=== PATIENT | female | born 1950 | race Caucasian/White ===

== ENCOUNTER 2020-09-21 11:03 | Outpatient (CLI) | payer MEDICAID, SELFPAY ==
--- NOTE | 2020-09-21 11:26 | XRR_ITS ---
PROCEDURE INFORMATION: Exam: XR Right Knee Exam date and time: 09/21/2020 11:26 AM Age: 70 years old Clinical indication: Pain; Knee; Bilateral; Additional info: Bilateral knee pain, standing views TECHNIQUE: Imaging protocol: XR Right knee. Views: 3 views. COMPARISON: No relevant prior studies available. FINDINGS: Bones/joints: No fracture or dislocation. There is mild tricompartmental degenerative changes of the right knee, involving mainly the medial compartment, manifested by joint space narrowing and periarticular osteophytes. Soft tissues: Normal. XR/XR knee RT 3V* [id number] IMPRESSION: Mild tricompartmental osteoarthrosis, involving mainly the medial compartment.
--- NOTE | 2020-09-21 11:26 | XRR_ITS ---
PROCEDURE INFORMATION: Exam: XR Left Knee Exam date and time: 09/21/2020 11:26 AM Age: 70 years old Clinical indication: Pain; Knee; Bilateral; Additional info: Bilateral knee pain, standing views TECHNIQUE: Imaging protocol: XR Left knee. Views: 3 views. COMPARISON: No relevant prior studies available. FINDINGS: Bones/joints: No fracture or dislocation. There is [id number] tricompartmental osteoarthrosis, manifested by joint space narrowing and periarticular osteophytes, involving mainly the patellofemoral compartment. Soft tissues: Normal. XR/XR knee LT 3V* [id number] IMPRESSION: [id number] tricompartmental osteoarthrosis, involving mainly the patellofemoral compartment.
== END 2020-09-21 11:04 | disposition home or self-care (01) ==
LOC: RAD 11:10
PROVIDERS: PCP Family Medicine; Visit Provider Family Medicine
DX: M25.561 Pain in right knee (principal); M25.562 Pain in left knee; M19.90 Unspecified osteoarthritis, unspecified site
CPT/HCPCS: 73562

== ENCOUNTER 2021-02-22 09:45 | Emergency (ER) | payer MEDICAID, SELFPAY ==
--- NOTE | 2021-02-22 10:07 | CT_ITS ---
WS: [id number] CT ABDOMEN AND PELVIS WITH CONTRAST HISTORY: Abdominal pain for one week. TECHNIQUE: Imaging performed of the abdomen and pelvis with IV contrast. Single phase imaging of the abdomen. Coronal and sagittal reformats are submitted. All CT scans at [facility] use at [address] one of these dose optimization techniques: automated exposure control; mA and/or kV adjustment per patient size (includes targeted exams where dose is matched to clinical indication); or iterative re construction. IV CONTRAST: Omnipaque 300; 95 mL IV. Oral contrast: No DLP: 1928.3 mGy.cm COMPARISON: 12/10/2016 Lower thorax: Lung bases are clear. Moderate enlargement the heart. Small hiatal hernia. Liver/biliary system: Mild enlargement of the liver. No mass or bile duct dilatation. Normal portal v ein. Mild physiologic dilatation of the common bile duct. Gallbladder: Status post cholecystectomy. Pancreas: Normal size pancreas and pancreatic duct. No adjacent inflammation. Spleen: Normal spleen with granulomata. Adrenal glands: Normal. Right kidney: Normal size kidney. Cortical hypodensity measures 7 mm in the mid kidney. 2 small to ch aracterize. Vascular calcifications centrally. Left kidney: Focal mild cortical thinning in the mid to lower kidney. Cortical hypodensity in the low er pole. No solid mass or obstruction. Aorta: Mild atherosclerosis with no aneurysm. Lymphadenopathy: None. Free fluid: None. GI tract: Low-attenuation irregular shaped nodule in the lumen of the proximal jejunum. This area of decreased attenuation in the lumen measures 18 x 18 mm and is irregular shape. There is very minimal proximal obstruction with adjacent wall thickening. This is not a hypervascular lesion. No adjacent a denopathy or free air. The appendix contains calcification. No GI tract obstruction or significant di verticular disease. Abdominal wall: Unremarkable abdominal wall. No hernia. Pelvis: Lobulated mass with calcification from the fundus and RIGHT lateral uterus consistent with a fibroid. Urinary bladder is only partially distended. No free fluid or adenopathy. Bones: Osteopenia. CT/CT abdomen pelvis w con* [id number] IMPRESSION: 1. Low-attenuation mass of uncertain etiology centered within the lumen of the proximal jejunum. This nonenhancing mass measures 16 x 16 mm. Differential inc ludes benign and malignant etiologies. Small bowel adenoma, GIST tumor, hematom a or adenocarcinoma should be considered. There is very mild adjacent wall thic kening at this site with no high-grade obstruction. 2. Prior cholecystectomy. 3. Fibroid uterus.
--- NOTE | 2021-02-22 10:10 | W.ED.ABDPA2 ---
HPI - Abdominal Pain General: Chief Complaint: Abdominal Pain Stated Complaint: ABDOMINAL PAIN Time Seen by Provider: 02/22/21 09:53 Source: patient and EMS Mode of arrival: EMS Limitations: no limitations History of Present Illness: HPI narrative: Patient is a 70-year-old female presents to ED today via EMS with a complaint of abdominal pain intermittently over the past week. Patient states she cannot identify any worsening or alleviating factors to her discomfort. States pain will come on and last approximately 20-30 mins and then subside on its own. She does states she has not had much of an appetite. According to EMS, patient is a diabetic and takes 40 units of insulin nightly. She admittedly has not checked her blood sugars in over a year. Blood sugar according to EMS upon arrival was in the 240s. Patient is not having any vomiting. She has chronic diarrhea and this has not changed in frequency or consistency. No fevers. EMS states upon arrival patient was complaining of bilateral ear pain. EMS noted a small amount of blood coming from her ear canal. Patient states she does clean her ears every night with Q-tips. She reports no other injury or trauma. No head trauma/no falls. States ears have bothered her for a few days. Also noticed some matting/discharge from [facility] eye. MD elicited complaint: abdominal pain Onset (ago): day(s) Pain Consistency: intermittent Location: Diffuse Severity: moderate Exacerbating factors: nothing Relieving factors: nothing Associated Symptoms: Reports diarrhea (chronic); Denies change in bowel habits, change in stool character, chills, dysuria, fever(s), hematochezia, hematuria, melena, nausea, syncope and vomiting Related Data: Patient : No Review of Systems Const: Denies: fever(s), chills, body aches, fatigue or malaise ENMT: Reports: ear or mastoid pain (bilateral) and ear discharge (left); Denies: throat pain, odynophagia, disequilibrium, nasal discharge or nasal congestion Card: Denies: chest pain, palpitations, irregular heart rhythm, edema, lightheadedness, syncope or pre-syncope Resp: Denies: dyspnea, productive cough or non-productive cough GI: Reports: abdominal pain and diarrhea (chronic); Denies: nausea, vomiting, change in bowel habits, change in stool character, hematochezia or melena : Denies: flank pain, dysuria or hematuria Musc: Denies: neck pain, back pain, extremity pain or joint pain Skin/Breast: Denies: rash Neuro: Denies: headache(s), numbness in extremities, weakness in extremities, sensory changes, dizziness or confusion Physical Exam Const: COMMON NORMALS: patient oriented x3, no limitations and alert GENERAL APPEARANCE: cooperative and in distress (appears slightly uncomfortable secondary to pain) NUTRITIONAL APPEARANCE: obese ORIENTATION/CONSCIOUSNESS: Yes awake, Yes oriented to person, Yes oriented to place and Yes oriented to time HENMT: COMMON NORMALS: normocephalic, atraumatic and Normal external nose present HEAD & SCALP: normal to inspection, normocephalic and atraumatic FACE & SINUS: normal facial exam NOSE: Normal external nose present EXTERNAL AUDITORY CANAL: Abnormal EAC present EAC laterality: left (blood in EAC) TYMPANIC MEMBRANE: TM abnormal TM laterality: right (erythema/dullness ) and left (TM rupture with blood noted in EAC) THROAT: posterior oropharynx normal Eye: COMMON NORMALS: Equal, round and reactive pupils present and EOMs intact bilaterally CONJUNCTIVA: Yes conjunctival abnormal positive left conjunctival injection (mild) PUPIL: Yes Equal, round and reactive pupils present OTHER: mild yellow purulent drainage from L eye Neck/C-Spine: COMMON NORMALS: no lymphadenopathy Resp: COMMON NORMALS: normal respiratory effort and clear to auscultation bilaterally AUSCULTATION: clear to auscultation bilaterally Cardio: COMMON NORMALS: regular rate and regular rhythm RATE: regular rate RHYTHM: regular rhythm GI: COMMON NORMALS: Normal to inspection, nondistended, normoactive bowel sounds present, Soft to palpation, No hepatosplenomegaly present and no masses INSPECTION: Yes normal to inspection AUSCULTATION: Yes normoactive bowel sounds PALPATION: Yes Soft to palpation, Yes Tenderness to palpation present (GI) (throughout upper/mid abdomen ) and Yes No hepatosplenomegaly present : COMMON NORMALS: Yes no CVA tenderness BLADDER/KIDNEY EXAM: Yes no CVA tenderness Back/Pelvis: COMMON NORMALS: no CVA tenderness Extremity: COMMON NORMALS: normal to inspection GENERAL: Yes normal exam except as noted Neuro: CHARLES COMA SCALE: document GCS findings Charles coma scale eye opening: Spontaneous Charles coma scale verbal response: Orientated Charles coma scale motor response: Obey commands Charles coma scale total score: 15 COMMON NORMALS: patient oriented x3, CN's II-XII intact bilaterally, moves all extremities, no focal motor deficits and no sensory deficits noted SENSORIUM/ORIENTATION: Yes alert, Yes oriented to person, Yes oriented to place and Yes oriented to time Skin: COMMON NORMALS: no rashes or lesions noted GENERAL SKIN EXAM: no rashes or lesions noted Course Consultations: Consultation #1: Dr. Perez-recommends either small bowel follow through or repeat CT scan with oral contrast to assess for obstruction Vital Signs: Vital signs: Vital Signs Temperature 98.3 F 02/22/21 10:32 Pulse Rate 104 H 02/22/21 17:18 Respiratory Rate 18 02/22/21 17:18 Blood Pressure 121/77 02/22/21 17:18 Pulse Oximetry 96 02/22/21 17:18 MDM - Abdominal Pain MDM Narrative: Medical decision making narrative: Patient here with bilateral otitis media with a spontaneous rupture to her left TM. She has not had any head injury or trauma but does reportedly clean her ears with Q-tips every day. Patient here with intermittent abdominal pains over the past week. She had not had any episodes of vomiting however he did have one episode of vomiting following oral contrast for her small bowel follow-through and now reporting nausea. Bowel movements have been normal. No fevers. CT scan showed an intraluminal mass to her proximal jejunum. Spoke to Dr. Perez who recommended a small bowel follow-through for further assessment. Patient was not able to fully complete this exam however enough was completed to where radiologist could comment that there was no sign of bowel loop dilatation or herniation/no sign of acute small bowel obstruction. Dr. Perez said he will follow up with her in office for the jejunal lesion. Patient will be placed on antibiotics for her ears and referred to ENT for the TM rupture. We also spoke about the importance of PCP follow up and testing for her diabetes. She verbalized understanding. She knows how to check and has supplies-states she doesn't really have a reason for why she hasn't been doing this. On general assessment of patient she appear weak and generally unwell. Unknown what her baseline is. Vitals are still stable. She states she does live alone. I recommended patient come into the hospital as I question whether she would be able to take care of herself at home but patient adamantly wants to go home. States she has a cat she lives with and needs to care for. She states she has a neighbor that can come check on her. Patient's blood work is unremarkable. UA without infection. We will go ahead and add a PCR COVID prior to discharge. Strict return to ED precautions given. Lab Data: Labs: Lab Results 02/22/21 02/22/21 02/22/21 10:45 10:45 12:25 WBC 12.7 10^3/uL H 10 ^3/uL (4.0-10.0) RBC 4.77 10^6/uL 10^6 /uL (4.1-5.3) Hgb 14.3 g/dL g/dL (11.5-15.3) Hct 39.8 % % (37.0-47.0) MCV 83.4 fl fl (81-99) MCH 30.0 pg pg (28.0-34.0) MCHC 35.9 g/dL g/dL (30.0-36.0) RDW 12.5 % % (12.1-15.1) Plt Count 303 10^3/cmm 10^3 /cmm (130-400) MPV 9.9 fL fL (7.4-10.4) Neut % (Auto) 85.5 % % Lymph % (Auto) 7.5 % % Beauregard % (Auto) 5.3 % % Eos % (Auto) 0.6 % % Baso % (Auto) 0.5 % % Neut # (Auto) 10.85 10^3/uL H 1 0^3/uL (1.8-7.7) Lymph # (Auto) 1.0 10^3/uL 10^3/ uL (0.8-4.8) Beauregard # (Auto) 0.7 10^3/uL 10^3/ uL (0.2-0.9) Eos # (Auto) 0.1 10^3/uL 10^3/ uL (0.0-0.8) Baso # (Auto) 0.1 10^3/uL 10^3/ uL (0.0-0.1) Nucleated RBC % (a uto) 0 % % Nucleated RBCs # 0.0 /100WBC /100W BC Sodium 132 mmol/L L mmol /L (136-145) Potassium 3.8 mmol/L mmol/L (3.5-5.1) Chloride 95 mmol/L L mmol/ L (98-107) Carbon Dioxide 21 mmol/L L mmol/ L (22-29) Anion Gap 19.8 H (5-19) BUN 14 mg/dL mg/dL (8-23) Creatinine 0.6 mg/dL mg/dL (0.5-0.9) GFR Calculation 99.1 mL/min mL/mi n (90-130) Glucose 209 mg/dL H mg/dL (65-115) Calculated Osmolal ity 281 mOsm/kg L mOs m/kg (285-295) Calcium 8.9 mg/dL mg/dL (8.5-10.5) Total Bilirubin 0.3 mg/dL mg/dL (0.15-1.2) AST 10 U/L U/L (0-32) ALT < 5 U/L U/L (0-33) Alkaline Phosphata se 61 IU/L IU/L (35-105) Total Protein 7.1 g/dL g/dL (6.6-8.7) Albumin 3.9 g/dL g/dL (3.5-5.2) Globulin 3.2 g/dL g/dL (1.3-4.6) Lipase 20 U/L U/L (13-60) Urine Color Yellow (Yellow) Urine Appearance Clear (CLEAR) Urine pH 5 (5-7) Ur Specific Gravit y 1.005 (1.005-1.030) Urine Protein 3+ H (Negative) Urine Glucose (UA) Trace H (Normal) Urine Ketones Negative (Negative) Urine Blood 2+ H (Negative) Urine Nitrate Negative (Negative) Urine Bilirubin Neg (Negative) Urine Urobilinogen Norm mg/dL mg/dL (Negative) Ur Leukocyte Caridad ase Negative (Negative) Urine RBC 5-10 /hpf H /hpf (0-2) Urine WBC 0-4 /hpf H /hpf (0-5) Ur Squamous Epith Cells 0-4 /hpf H /hpf (0-5) Ur Transition Epit h Cell 0-4 /hpf /hpf Amorphous Sediment Not Reportable Urine Bacteria Trace /hpf /hpf (NONE) Imaging Data ^: CT Abd/Pel: Radiologist's impression: CURRENT[address] [address] [address] Scan Report Signed Patient: Lady López Unit #: [id number] : [id number] Age/Sex: 70 / F ADM Date: 02/22/21 Loc: ER Room/Bed: Attending Dr: Ordering Provider/Ordering MD: Pamela Calvo Date of Service: 02/22/21 Procedure(s): CT abdomen pelvis w con* [id number] Accession Number(s): [id number] Report Number: [id number] WS: [id number] CT ABDOMEN AND PELVIS WITH CONTRAST HISTORY: Abdominal pain for one week. TECHNIQUE: Imaging performed of the abdomen and pelvis with IV contrast. Single phase imaging of the abdomen. Coronal and sagittal reformats are submitted. All CT scans at [facility] use at least one of these dose optimization techniques: automated exposure control; mA and/or kV adjustment per patient size (includes targeted exams where dose is matched to clinical indication); or iterative reconstruction. IV CONTRAST: Omnipaque 300; 95 mL IV. Oral contrast: No DLP: 1928.3 mGy.cm COMPARISON: 12/10/2016 Lower thorax: Lung bases are clear. Moderate enlargement the heart. Small hiatal hernia. Liver/biliary system: Mild enlargement of the liver. No mass or bile duct dilatation. Normal portal vein. Mild physiologic dilatation of the common bile duct. Gallbladder: Status post cholecystectomy. Pancreas: Normal size pancreas and pancreatic duct. No adjacent inflammation. Spleen: Normal spleen with granulomata. Adrenal glands: Normal. Right kidney: Normal size kidney. Cortical hypodensity measures 7 mm in the mid kidney. 2 small to characterize. Vascular calcifications centrally. Left kidney: Focal mild cortical thinning in the mid to lower kidney. Cortical hypodensity in the lower pole. No solid mass or obstruction. Aorta: Mild atherosclerosis with no aneurysm. Lymphadenopathy: None. Free fluid: None. GI tract: Low-attenuation irregular shaped nodule in the lumen of the proximal jejunum. This area of decreased attenuation in the lumen measures 18 x 18 mm and is irregular shape. There is very minimal proximal obstruction with adjacent wall thickening. This is not a hypervascular lesion. No adjacent adenopathy or free air. The appendix contains calcification. No GI tract obstruction or significant diverticular disease. Abdominal wall: Unremarkable abdominal wall. No hernia. Pelvis: Lobulated mass with calcification from the fundus and RIGHT lateral uterus consistent with a fibroid. Urinary bladder is only partially distended. No free fluid or adenopathy. Bones: Osteopenia. CT/CT abdomen pelvis w con* [id number] IMPRESSION: 1. Low-attenuation mass of uncertain etiology centered within the lumen of the proximal jejunum. This nonenhancing mass measures 16 x 16 mm. Differential includes benign and malignant etiologies. Small bowel adenoma, GIST tumor, hematoma or adenocarcinoma should be considered. There is very mild adjacent wall thickening at this site with no high-grade obstruction. 2. Prior cholecystectomy. 3. Fibroid uterus. Dictated By: Pat Zafar DO Signed By: Pat Zafar DO Signed Date/Time: 02/22/21 1154 DD/ 1142 XR small bowel follow through: Radiologist's impression: [address] [place], [place] [address]Cqqnmgyorum ReportSigned Patient: Lady López RUnchepe #: [id number]: [id number]#:[id number]/Sex: 70 / FADM Date: 02/22/21Loc: ERRoom/Bed:Attending Dr: Ordering Provider/Ordering MD: Pamela Calvo Date of Service: 02/22/21 Procedure(s): FL small bowel FT gastro [id number] Accession Number(s): [id number] Report Number: [id number] WS: [id number] Exam: FL small bowel FT gastro [id number] Date/Time of Exam: 02/22/2021 12:16 PM Reason For Exam: proximal jejunum mass; r/o obstruction Fluoroscopy time: 0.5 minutes Small bowel follow-through was performed with water-soluble contrast. There is slow progression of contrast through the duodenum, jejunum and ileum. At approximately 3 hours postcontrast ingestion there is likely contrast in the region of the cecum. The patient refused any additional images at about 3 hours due to her inability to continue. There was no sign of bowel loop dilatation or herniation. No sign of acute small bowel obstruction. Residual radiographic contrast is noted in the urinary bladder. There is still some contrast in the stomach at 3 hours. Mucosal thickening of proximal jejunal loops. FL/[place] gastro [id number] IMPRESSION: 1. Incomplete small bowel follow-through with their water-soluble contrast however there is probably some contrast in the cecum at about 3 hours postcontrast ingestion. There were no signs of acute small bowel obstruction. 2. Mucosal thickening of the proximal jejunal loops noted. Mild prominence of the duodenal mucosa. Jejunal loops are unremarkable as visualized. These findings were discussed by phone with ALONZO Hess the attending emergency room caregiver at 4:30 PM 02/22/2021. Dictated By:Denisigned By:Lacie Evans Date/Time:02/22/215DD/ 10 Discharge Plan Discharge Patient Disposition: Home Clinical Impression: Left otitis media with spontaneous rupture of eardrum, Acute right otitis media, Small bowel mass Condition: Stable Prescriptions: New Zofran 4 mg tablet 4 mg PO Q6H PRN (Reason: nausea and vomiting) Qty: 14 RF: 0 Augmentin 875-125 mg tablet 1 tab PO Q12H 7 Days Qty: 14 RF: 0 No Action Lantus U-100 Insulin 100 unit/mL solution 40 unit SUBCUT BEDTIME RF: 0 clopidogrel 75 mg tablet 75 mg PO QAM RF: 0 Aspir-81 81 mg Tablet,Delayed Release (Dr/Ec) 81 mg PO QAM RF: 0 amlodipine 10 mg tablet 10 mg PO QAM RF: 0 metformin 1,000 mg tablet 1,000 mg PO BID RF: 0 metoprolol tartrate 50 mg tablet 50 mg PO BID RF: 0 losartan 100 mg tablet 100 mg PO QAM RF: 0 fenofibrate nanocrystallized 145 mg tablet 145 mg PO BEDTIME RF: 0 Jardiance 10 mg tablet 10 mg PO QAM RF: 0 Discharge Orders: Discharge ED (Routine); Ordered 02/22/21 Ordered By: Pamela Calvo Referrals: Matthew Geller, DO [Primary Care Provider] - Activity Restrictions/Additional Instructions: As we have discussed I recommended you come into the hospital but you would like to go home at this time. I will give you follow-up with Dr. Perez the general surgeon for the abnormal lesion that was found in your small bowel. As we discussed please do a bland soft/liquid diet until instructed otherwise by Dr. Perez. We will get you follow-up with Dr. Ocampo the ENT specialist for your ruptured eardrum. We have sent a COVID test-you should hear back with these results in the next 24 to 48 hours. You need to return to the emergency department for worsening or uncontrollable abdominal pain, repetitive episodes of vomiting, worsening diarrhea, severe constipation, fevers greater than 100.4, generalized weakness, inability to care for yourself at home, or any other concerns you may have. Coding Level of Care Code ED Virologist for Chg Fwd Exam Comprehensive
[2021-02-22 10:24] VITALS: BP 186/74; PULSE 92; RESP 20; TEMP 36.8; O2SAT 96; BMI 39.9
[2021-02-22 10:32] VITALS: BP 186/74; PULSE 92; RESP 18; TEMP 36.8; O2SAT 96
[2021-02-22 10:54] LABS: Basophils # 0.1 10^3/uL (0.0-0.1); Basophils % 0.5 %; Eosinophils # 0.1 10^3/uL (0.0-0.8); Eosinophils % 0.6 %; Hematocrit 39.8 % (37.0-47.0); Hemoglobin 14.3 g/dL (11.5-15.3); Lymphocytes % 7.5 %; Mean Corpuscular HGB Conc 35.9 g/dL (30.0-36.0); Mean Corpuscular Volume 83.4 fl (81-99); Mean Platelet Volume 9.9 fL (7.4-10.4); Monocytes # 0.7 10^3/uL (0.2-0.9); Monocytes % 5.3 %; Neutrophils # 10.85 10^3/uL (1.8-7.7); Neutrophils % 85.5 %; Nucleated Red Blood Cells % 0 %; Platelet Count 303 10^3/cmm (130-400); Red Blood Count 4.77 10^6/uL (4.1-5.3); Red Cell Distribution Width 12.5 % (12.1-15.1); White Blood Count 12.7 10^3/uL (4.0-10.0)
[2021-02-22 11:17] LABS: Alanine Aminotransferase < 5 U/L (0-33); Albumin Level 3.9 g/dL (3.5-5.2); Alkaline Phosphatase 61 IU/L (35-105); Blood Urea Nitrogen 14 mg/dL (8-23); Calcium 8.9 mg/dL (8.5-10.5); Carbon Dioxide 21 mmol/L (22-29); Chloride 95 mmol/L (98-107); Globulin 3.2 g/dL (1.3-4.6); Glomerular Filtration Rate 99.1 mL/min (90-130); Glucose 209 mg/dL (65-115); Lipase 20 U/L (13-60); Osmolality Calculated 281 mOsm/kg (285-295); Sodium 132 mmol/L (136-145); Total Bilirubin 0.3 mg/dL (0.15-1.2); Total Protein 7.1 g/dL (6.6-8.7)
--- NOTE | 2021-02-22 11:32 | PC.PHAR ---
pt states she has a nurse from [facility] waiting for med list to be faxed-medications entered are meds that ext med history shows has been filled recently and what the pt states she takes-
[2021-02-22 11:35] LABS: Anion Gap 19.8 (5-19); Aspartate Amino Transferase 10 U/L (0-32); Potassium 3.8 mmol/L (3.5-5.1)
[2021-02-22 11:49] VITALS: BP 171/68; PULSE 92; RESP 18; O2SAT 94
--- NOTE | 2021-02-22 12:16 | FL_ITS ---
WS: [id number] Exam: FL small bowel FT gastro [id number] Date/Time of Exam: 02/22/2021 12:16 PM Reason For Exam: proximal jejunum mass; r/o obstruction Fluoroscopy time: 0.5 minutes Small bowel follow-through was performed with water-soluble contrast. There is slow progression of contrast through the duodenum, jejunum and ileum. At approximately 3 juana rs postcontrast ingestion there is likely contrast in the region of the cecum. The patient refused an y additional images at about 3 hours due to her inability to continue. There was no sign of bowel loo p dilatation or herniation. No sign of acute small bowel obstruction. Residual radiographic contrast is noted in the urinary bladder. There is still some contrast in the stomach at 3 hours. Mucosal thic kening of proximal jejunal loops. FL/FL small bowel FT gastro [id number] IMPRESSION: 1. Incomplete small bowel follow-through with their water-soluble contrast mcconnell fay there is probably some contrast in the cecum at about 3 hours postcontrast ingestion. There were no signs of acute small bowel obstruction. 2. Mucosal thickening of the proximal jejunal loops noted. Mild prominence of t he duodenal mucosa. Jejunal loops are unremarkable as visualized. These findings were discussed by phone with ALONZO Hess the attending [facility] room caregiver at 4:30 PM 02/22/2021.
[2021-02-22 12:30] VITALS: BP 121/77; PULSE 88; RESP 16; O2SAT 94
[2021-02-22 12:41] LABS: Protein Urine 3+ (Negative); Specific Gravity, Urine 1.005 (1.005-1.030); Urine Appearance Clear (CLEAR); Urine Color Yellow (Yellow); pH Urine 5 (5-7)
[2021-02-22 12:42] LABS: Add Urine Culture? No; Add Urine Microscopic? YES; Bacteria Urine TRACE /hpf; Bilirubin Urine Neg (Negative); Blood Urine 2+ (Negative); Glucose Urine UA Trace (Normal); Ketones Urine Negative (Negative); Leukocyte Esterase Urine Negative (Negative); Nitrate Urine Negative (Negative); Squamous Epithelial Cell Urine 0-4 /hpf (0-5); Transitional Epi Cells Urine 0-4 /hpf; Urobilinogen Urine Norm (Negative); WBC Urine 0-4 /hpf (0-5)
[2021-02-22] MEDS: diatrizoate meglumine 120 mL Sol PO (16:11)
[2021-02-22 17:18] VITALS: BP 121/77; PULSE 104; RESP 18; O2SAT 96
--- NOTE | 2021-02-24 12:20 | DCPLANNER ---
Addendum entered by Gabi Moncada 02/28/21 05:27: late entry - case work aide also had message to schedule a follow up appointment for patient with Dr. Perez. embedded software manager was unable to reach anyone in the office of Dr. Perez, when case work aide called the office to inquire to see if Dr. Perez accepted patients insurance. Original Note: embedded software manager had message to schedule a follow up appointment for patient with ENT. embedded software manager emailed patients information to both Monica and Natividad at [facility] General Surgery / ENT clinic. Patients information will be printed and reviewed, clinic will call patient with appointment information.
--- NOTE | 2021-02-28 14:45 | DCPLANNER ---
Addendum entered by Gabi Moncada 03/15/21 14:18: Patient had a follow up appointment scheduled for 03.15.21 - patient did attend appointment. Original Note: commercial real estate manager had message to schedule a follow up appointment with Dr. Perez. commercial real estate manager faxed patients information to the office of Dr. Perez for review. Clinic will call patient with appointment information.
--- NOTE | 2021-03-04 07:37 | DCPLANNER ---
senior accounting manager contacted the ENT clinic to confirm a follow up appointment had been scheduled for patient. senior accounting manager was told by [facility] that clinic called patient on 02.28.21 and 03.03.21 to schedule a follow up appointment. Clinic was unable to reach patient due to no answer and no voicemail set up.
== END 2021-02-22 17:20 | disposition home or self-care (01) ==
PROVIDERS: Emergency Provider Physician Assistant; PCP Family Medicine
DX: H66.93 Otitis media, unspecified, bilateral (principal); H72.92 Unspecified perforation of tympanic membrane, left ear; K63.9 Disease of intestine, unspecified; Z79.84 Long term (current) use of oral hypoglycemic drugs; Z79.02 Long term (current) use of antithrombotics/antiplatelets; Z79.82 Long term (current) use of aspirin; Z79.4 Long term (current) use of insulin
CPT/HCPCS: 74177; 74250; 80053; 81001; 83690; 85025; 99283; Q9963

== ENCOUNTER 2021-02-24 14:50 | Inpatient (IN) | payer MEDICAID, SELFPAY ==
[2021-02-24] VITALS (9 sets, daily range): BP systolic 146–200; BP diastolic 75–88; PULSE 94–103; RESP 18–34; TEMP 37.2; O2SAT 92–97; BMI 36.1
--- NOTE | 2021-02-24 15:05 | W.ED.WEAKNES ---
HPI - Weakness General: Chief complaint: ER Hold Stated complaint: GENERALIZED WEAKNESS Time Seen by Provider: 02/24/21 15:04 History of Present Illness: HPI Narrative: Ms. López is a 70-year-old lady with somewhat unclear past medical history presents to the emergency department due to generalized malaise and chest pain. She endorses 8-day history of cough, shortness of breath, and other progressive symptoms. She has generalized abdominal chest pain which is moderate intensity. It is unclear whether there are any specific exacerbating or alleviating factors that the patient identifies. 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 History is otherwise limited by patient's overall ill status and possible mental status changes. Review of Systems General: Reports: 10 or more systems reviewed and unremarkable except in HPI and below PFSH ED PFSH: Medical History (Updated 03/02/21 @ 00:00 by ) Arthritis Asthma DKA (diabetic ketoacidosis) DM type 2 (diabetes mellitus, type 2) HTN (hypertension) Hypertensive urgency Left otitis media with spontaneous rupture of eardrum Otitis externa Small bowel mass Surgical History (Updated 02/24/21 @ 19:37 by Zach Webb MD) Hx of cholecystectomy Family History Other Cancer Stroke Social History (Updated 02/24/21 @ 19:38 by Zach Webb MD) Smoking and tobacco status: never smoked Alcohol intake: never Substance/Drug Use: never Lives independently: Yes Household members: none Marital status: / Physical Exam Narrative: EXAM NARRATIVE: GENERAL/CONSTITUTIONAL -ill-appearing. Eyes - PERRL, bilateral conjunctival injection and fraire drainage with crusting. ENMT - Atraumatic external nose and ears. Drainage from bilateral ears worse on the left with mucoid discharge. Dry mucous membranes NECK - supple. trachea midline CARDIOVASCULAR -tachycardic rate and regular rhythm. No significant peripheral edema. RESPIRATORY -coarse productive cough, increased respiratory effort, diminished and wheezing. ABDOMEN/GI -mild generalized tenderness to palpation. No evidence of peritonitis. MSK - Extremities without obvious deformity or tenderness to palpation SKIN - Warm, Dry NEURO - alert and appropriately oriented. Moves all extremities equally. Course ED course: - Patient was seen and evaluated by me at bedside - Patient placed on cardiac monitors, IV access obtained - Initial evaluation notable for ill appearance as noted above, altered mental status -Treatment ordered. Antibiotics and fluids ordered. - Labs notable for leukocytosis. Metabolic panel with likely dehydration. Glucose is elevated with elevated anion gap, felt to be likely related to sepsis. Negative delta troponin. Urinalysis pending at time of admission - Imaging notable for left upper lobe pneumonia - Upon serial reexamination after treatment the patient was mildly improved - Based on patient history, evaluation, labs, and imaging as interpreted the most likely cause of the patient's condition is pneumonia, sepsis, altered mental status - The results of ED evaluation were discussed with the patient including plan for admission due to requirement for level of care not available if discharged to prevent significant worsening/deterioration. -Hospitalist service contacted and agreed admit the patient - Patient was admitted without further deterioration or significant events. Vital Signs: Vital signs: Vital Signs Temperature 98.4 F 03/02/21 20:00 Pulse Rate 66 03/02/21 20:30 Respiratory Rate 16 03/02/21 20:30 Blood Pressure 123/63 03/02/21 20:00 Pulse Oximetry 94 03/02/21 20:30 MDM - Weakness Medical Records: Attestation: I reviewed the patient's medical records. Lab Data: Attestation: I reviewed the patient's lab results. Labs: Lab Results 02/24/21 02/24/21 02/24/21 15:21 15:21 15:21 WBC 16.8 10^3/uL H 10 ^3/uL (4.0-10.0) RBC 4.89 10^6/uL 10^6 /uL (4.1-5.3) Hgb 14.1 g/dL g/dL (11.5-15.3) Hct 43.0 % % (37.0-47.0) MCV 87.9 fl fl (81-99) MCH 28.8 pg pg (28.0-34.0) MCHC 32.8 g/dL g/dL (30.0-36.0) RDW 12.9 % % (12.1-15.1) Plt Count 341 10^3/cmm 10^3 /cmm (130-400) MPV 10.4 fL fL (7.4-10.4) Neut % (Auto) 87.7 % % Lymph % (Auto) 4.1 % % [place] % (Auto) 6.5 % % Eos % (Auto) 0.1 % % Baso % (Auto) 0.4 % % Neut # (Auto) 14.75 10^3/uL H 1 0^3/uL (1.8-7.7) Lymph # (Auto) 0.7 10^3/uL L 10^ 3/uL (0.8-4.8) [place] # (Auto) 1.1 10^3/uL H 10^ 3/uL (0.2-0.9) Eos # (Auto) 0.0 10^3/uL 10^3/ uL (0.0-0.8) Baso # (Auto) 0.1 10^3/uL 10^3/ uL (0.0-0.1) Nucleated RBC % (a uto) 0 % % Nucleated RBCs # 0.0 /100WBC /100W BC Specimen Type Sample Site ABG pH ABG pCO2 ABG pO2 ABG HCO3 ABG Base Excess Stephen Test Hematocrit O2 Delivery Device FiO2 Grease Machine Worker ID Sodium 129 mmol/L L mmol /L (136-145) Potassium 4.5 mmol/L mmol/L (3.5-5.1) Chloride 88 mmol/L L mmol/ L (98-107) Carbon Dioxide 13 mmol/L L mmol/ L (22-29) Anion Gap 32.5 H (5-19) BUN 15 mg/dL mg/dL (8-23) Creatinine 0.9 mg/dL mg/dL (0.5-0.9) GFR Calculation 62.1 mL/min L mL/ min (90-130) Glucose 411 mg/dL H mg/dL (65-115) Calculated Osmolal ity 286 mOsm/kg mOsm/ kg (285-295) Lactic Acid Calcium 8.6 mg/dL mg/dL (8.5-10.5) Magnesium 2.0 mg/dL mg/dL (1.7-2.3) Total Bilirubin 0.4 mg/dL mg/dL (0.15-1.2) AST 9 U/L U/L (0-32) ALT < 5 U/L U/L (0-33) Alkaline Phosphata se 94 IU/L IU/L (35-105) Troponin T Baselin e 23 ng/L H ng/L (0-10) Troponin T 120 Min [place] Troponin T C-Reactive Protein Total Protein 7.2 g/dL g/dL (6.6-8.7) Albumin 3.6 g/dL g/dL (3.5-5.2) Globulin 3.6 g/dL g/dL (1.3-4.6) Procalcitonin TSH 3.19 uIU/mL uIU/m L (0.27-4.20) Serum Ketones Influenza Type A A g Influenza Type B A g SARS-CoV-2 Ag (Rap id) 02/24/21 02/24/21 02/24/21 15:21 15:21 15:55 WBC RBC Hgb Hct MCV MCH MCHC RDW Plt Count MPV Neut % (Auto) Lymph % (Auto) [place] % (Auto) Eos % (Auto) Baso % (Auto) Neut # (Auto) Lymph # (Auto) [place] # (Auto) Eos # (Auto) Baso # (Auto) Nucleated RBC % (a uto) Nucleated RBCs # Specimen Type Arterial Sample Site Brachial, left ABG pH 7.39 (7.35-7.45) ABG pCO2 27.8 mmHg L mmHg (35-45) ABG pO2 61.9 mmHg L mmHg (80.0-100.0) ABG HCO3 16.8 mmol/L L mmo l/L (22-26) ABG Base Excess -6.7 mmol/L L mmo l/L (-2.0-2.0) Stephen Test N/a Hematocrit 42.2 % % (37-47) O2 Delivery Device Room air FiO2 21.0 % % Grease Machine Worker ID Amh Sodium Potassium Chloride Carbon Dioxide Anion Gap BUN Creatinine GFR Calculation Glucose Calculated Osmolal ity Lactic Acid Calcium Magnesium Total Bilirubin AST ALT Alkaline Phosphata se Troponin T Baselin e Troponin T 120 Min [place] Troponin T C-Reactive Protein 334.9 mg/L H mg/L (0.0-4.9) Total Protein Albumin Globulin Procalcitonin 0.34 ng/mL ng/mL (0-0.5) TSH Serum Ketones Positive H (Negative) Influenza Type A A g Influenza Type B A g SARS-CoV-2 Ag (Rap id) 02/24/21 02/24/21 02/24/21 16:37 16:37 16:50 WBC RBC Hgb Hct MCV MCH MCHC RDW Plt Count MPV Neut % (Auto) Lymph % (Auto) [place] % (Auto) Eos % (Auto) Baso % (Auto) Neut # (Auto) Lymph # (Auto) [place] # (Auto) Eos # (Auto) Baso # (Auto) Nucleated RBC % (a uto) Nucleated RBCs # Specimen Type Sample Site ABG pH ABG pCO2 ABG pO2 ABG HCO3 ABG Base Excess Stephen Test Hematocrit O2 Delivery Device FiO2 Grease Machine Worker ID Sodium Potassium Chloride Carbon Dioxide Anion Gap BUN Creatinine GFR Calculation Glucose Calculated Osmolal ity Lactic Acid 2.5 mmol/L H mmol /L (0.5-2.2) Calcium Magnesium Total Bilirubin AST ALT Alkaline Phosphata se Troponin T Baselin e Troponin T 120 Min [place] 23.21 ng/L H ng/L (0-10) Delta Troponin T 0.21 ABS# ABS# (0-10) C-Reactive Protein Total Protein Albumin Globulin Procalcitonin TSH Serum Ketones Influenza Type A A g Influenza Type B A g SARS-CoV-2 Ag (Rap id) Negative (Negative) 02/24/21 16:50 WBC RBC Hgb Hct MCV MCH MCHC RDW Plt Count MPV Neut % (Auto) Lymph % (Auto) [place] % (Auto) Eos % (Auto) Baso % (Auto) Neut # (Auto) Lymph # (Auto) [place] # (Auto) Eos # (Auto) Baso # (Auto) Nucleated RBC % (a uto) Nucleated RBCs # Specimen Type Sample Site ABG pH ABG pCO2 ABG pO2 ABG HCO3 ABG Base Excess Stephen Test Hematocrit O2 Delivery Device FiO2 Grease Machine Worker ID Sodium Potassium Chloride Carbon Dioxide Anion Gap BUN Creatinine GFR Calculation Glucose Calculated Osmolal ity Lactic Acid Calcium Magnesium Total Bilirubin AST ALT Alkaline Phosphata se Troponin T Baselin e Troponin T 120 Min [place] Troponin T C-Reactive Protein Total Protein Albumin Globulin Procalcitonin TSH Serum Ketones Influenza Type A A g Negative (Negative) Influenza Type B A g Negative (Negative) SARS-CoV-2 Ag (Rap id) EKG Data^: EKG 1: Attestation: I personally reviewed and interpreted this EKG as follows: EKG interpretation date: 02/24/21 EKG interpretation time: 15:23 Interpretation: Twelve-lead EKG shows a regular rhythm at a rate of 98. VT interval 152, QRS duration 97, QTc 390. Left axis deviation. Interpretation: Sinus rhythm. PACs. Discharge Plan Discharge Patient Disposition: Admitted As Inpatient Admit Provider: Zach Webb Clinical Impression: Sepsis Condition: Stable Coding Level of Care Code ED Copy And Print Associate for Sasha Cox
[2021-02-24 15:29] LABS: Basophils # 0.1 10^3/uL (0.0-0.1); Basophils % 0.4 %; Eosinophils % 0.1 %; Hemoglobin 14.1 g/dL (11.5-15.3); Lymphocytes # 0.7 10^3/uL (0.8-4.8); Lymphocytes % 4.1 %; Mean Corpuscular HGB Conc 32.8 g/dL (30.0-36.0); Mean Corpuscular Hemoglobin 28.8 pg (28.0-34.0); Mean Corpuscular Volume 87.9 fl (81-99); Mean Platelet Volume 10.4 fL (7.4-10.4); Monocytes # 1.1 10^3/uL (0.2-0.9); Monocytes % 6.5 %; Neutrophils # 14.75 10^3/uL (1.8-7.7); Neutrophils % 87.7 %; Nucleated Red Blood Cells % 0 %; Platelet Count 341 10^3/cmm (130-400); Red Blood Count 4.89 10^6/uL (4.1-5.3); Red Cell Distribution Width 12.9 % (12.1-15.1); White Blood Count 16.8 10^3/uL (4.0-10.0)
--- NOTE | 2021-02-24 15:34 | XRR_ITS ---
PROCEDURE INFORMATION: Exam: XR Chest Exam date and time: 02/24/2021 3:34 PM Age: 70 years old Clinical indication: Chest pressure; Prior surgery; Surgery type: Gb; Patient HX: Cough chest pain weakness; Additional info: Chest pain, tachypnea TECHNIQUE: Imaging protocol: XR of the chest. Views: 1 view. COMPARISON: CR Chest 1 [place] [id number] 06/06/2018 12:55 AM FINDINGS: Lungs: Left upper lobe pneumonia. Mild pulmonary vascular congestion. Pleural spaces: Unremarkable. No pleural effusion. No pneumothorax. Heart/Mediastinum: Cardiomegaly. Bones/joints: Unremarkable. XR/XR chest 1V portable [id number] IMPRESSION: 1. Left upper lobe pneumonia. 2. Cardiomegaly. 3. Mild pulmonary vascular congestion.
--- NOTE | 2021-02-24 15:34 | ECG_ITS ---
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 Measurements Intervals [place] Rate: 103 P: 48 SD: 153 QRS: -13 QRSD: 92 T: 96 QT: 342 QTc: 448 Interpretive Statements SINUS TACHYCARDIA LOW QRS VOLTAGE IN EXTREMITY LEADS [QRS DEFLECTION < 0.5 mV IN LIMB LEADS] ANTEROSEPTAL MYOCARDIAL INFARCTION , OF INDETERMINATE AGE [40+ ms Q WAVE IN V1-V4] Compared to ECG 02/24/2021 15:16:14 Low QRS voltage now present Sinus rhythm no longer present Myocardial infarct finding still present Electronically Signed On 02-26-2021 7:39:26 JOURNEYMAN OPERATOR ASSISTANT by Bryan Posadas M.D. [id number]
[2021-02-24] MEDS: ipratropium-albuterol 3 mL Neb INHALATION (15:55)
[2021-02-24 15:58] LABS: Alanine Aminotransferase < 5 U/L (0-33); Albumin Level 3.6 g/dL (3.5-5.2); Alkaline Phosphatase 94 IU/L (35-105); Blood Urea Nitrogen 15 mg/dL (8-23); Calcium 8.6 mg/dL (8.5-10.5); Carbon Dioxide 13 mmol/L (22-29); Chloride 88 mmol/L (98-107); Creatinine Clr Calc Pharmacy 68.5196; Globulin 3.6 g/dL (1.3-4.6); Glomerular Filtration Rate 62.1 mL/min (90-130); Glucose 411 mg/dL (65-115); Osmolality Calculated 286 mOsm/kg (285-295); Sodium 129 mmol/L (136-145); Thyroid Stimulating Hormone 3.19 uIU/mL (0.27-4.20); Total Bilirubin 0.4 mg/dL (0.15-1.2); Total Protein 7.2 g/dL (6.6-8.7)
[2021-02-24 15:59] LABS: Anion Gap 32.5 (5-19); Aspartate Amino Transferase 9 U/L (0-32); Potassium 4.5 mmol/L (3.5-5.1)
[2021-02-24 16:07] LABS: ABG PCO2 27.8 mmHg (35-45); ABG PH Result 7.39 (7.35-7.45); Arterial Blood Gas Hematocrit 42.2 % (37-47); Base Excess ABG -6.7 mmol/L (-2.0-2.0); Blood Gas Operator Identificat AMH; Blood Gas Sample Site Brachial, left; Blood Gas Sample Type Arterial; HCO3 ABG 16.8 mmol/L (22-26); Oxygen Device ROOM AIR; PO2 ABG 61.9 mmHg (80.0-100.0)
[2021-02-24 16:14] LABS: Troponin(5th) Baseline 23 ng/L (0-10)
[2021-02-24 16:15] LABS: C Reactive Protein 334.9 mg/L (0.0-4.9)
[2021-02-24 16:21] LABS: Procalcitonin 0.34 ng/mL (0-0.5)
[2021-02-24] MEDS: sodium chloride 0.9% 1,710 ML 1710 ML IV (16:39)
[2021-02-24] MEDS: piperacillin-tazobactam 4.5 GM in sodium chloride 0.9% (plus) 50 ML IV (16:40)
--- NOTE | 2021-02-24 16:48 | PC.PHAR ---
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
[2021-02-24 17:29] LABS: Lactic Sepsis W/Reflex 2.5 mmol/L (0.5-2.2)
--- NOTE | 2021-02-24 17:34 | ECG_ITS ---
[facility] Test Date: 2021-02-24 Pat Name: Lady López Department: Room: Gender: Female Acting Teacher: : 1950 Requested By: Deangelo Nelson Order Number: [id number] Lama MD: Bryan Posadas M.D. Measurements Intervals [place] Rate: 98 P: 47 ME: 152 QRS: -70 QRSD: 97 T: 109 QT: 335 QTc: 428 Interpretive Statements SINUS RHYTHM WITH OCCASIONAL SUPRAVENTRICULAR PREMATURE COMPLEXES SEPTAL MYOCARDIAL INFARCTION , OF INDETERMINATE AGE [40+ ms Q WAVE IN V1/V2] INFERIOR MYOCARDIAL INFARCTION , PROBABLY OLD [40+ ms Q WAVE AND/OR ST/T ABNORMALITY IN II/aVF] Compared to ECG 06/07/2018 13:55:11 No significant changes Electronically Signed On 02-26-2021 7:47:00 LITERACY CONSULTANT by Bryan Posadas M.D. [id number]
[2021-02-24 17:41] LABS: Troponin 5 2HR 23.21 ng/L (0-10); Troponin 5 2HR Delta 0.21 ABS# (0-10)
[2021-02-24 18:05] LABS: SARS Covid-2 Antigen Negative (Negative)
[2021-02-24 18:23] LABS: Influenza A by IFA Negative (Negative); Influenza B by IFA Negative (Negative)
[2021-02-24 18:57] LABS: Reflex Lactate Order REFLEX LACTIC ORDERD
--- NOTE | 2021-02-24 19:21 | P.HP_ITS ---
Providers/Chief Complaint Primary Care Provider: Matthew Geller DO Chief Complaint: GENERALIZED WEAKNESS History of Present Illness Pleasant 70-year-old lady who lives alone, returns to ER after a recent visit on 02/22, coming with complaint of abdominal pain over a week, with poor appetite also complaining of bilateral ear pain, small blood noted at EAM, reports her ears were bothering her for several days. Matting and discharge in left eye. Found to have bilateral otitis media, with spontaneous rupture of left TM. Was prescribed Augmentin, referred for follow-up to Dr. Ocampo, ENT and PCP. CT abdomen pelvis performed due to nausea, with noted intramural mass to her proximal jejunum, with small bowel follow-through ordered, but could not complete the entire study. Follow-up arranged with Dr. Perez in office. Appears weak and generally unwell, but declined to stay in the hospital, stating her neighbor would be checking on her. She returns to the hospital with progressive symptoms, with generalized weakness, malaise, productive cough of yellow/purulent appearing sputum, reports all symptoms started about 8 days ago. Generalized body aches. Ear pain is better, denies headache, however, has had drainage from both ears. Also more discharge from both eyes. She did not start the antibiotic course. She is generally weak, hard of hearing, but able to provide history. She reports she had diarrhea about 3 days into the illness, but that has resolved. Denies nausea or vomiting. No headache. Denies any rashes. Denies any history of autoimmune conditions. She is hypertensive, blood pressure 200/76, heart rate 100, respiratory rate 18, temperature 99 Fahrenheit, O2 saturation 94% on room air. WBC count 16.8. ABG 7.39/27.8/61.9/16.8. Sodium 129, chloride 88, bicarb 13, anion gap 32.5. BUN 15, creatinine 1.9, glucose 411. Lactic acid 2.5. Normal liver parameters. Troponin T 23-23.21. CRP 334.9. TSH 3.19. Rapid influenza and rapid COVID-19 antigens negative. Chest x-ray with left upper lobe pneumonia, cardiomegaly, mild pulmonary vascular congestion. In ER blood cultures were collected, she receives Zosyn, vancomycin. 1.7 L fluid resuscitation bolus. In case of cardiopulmonary arrest would not want CPR or intubation. In case of questions regarding goals of care she could not answer, asked to reach out to son Hubert López. Review of Systems Const: Reports: body aches and malaise Eyes: Reports: eye redness; Denies: change in vision ENMT: Reports: ear discharge; Denies: throat pain, oral sores or ear or mastoid pain Card: Denies: chest pain, edema, pre-syncope or dyspnea on exertion Resp: Reports: productive cough and change in phlegm color; Denies: dyspnea or hemoptysis GI: Reports: diarrhea; Denies: abdominal pain, nausea, vomiting, constipation, hematochezia or melena : Denies: flank pain, urinary frequency or hematuria Musc: Denies: back pain, joint swelling or joint redness Skin/Breast: Denies: rash, sores or new lesions Neuro: Denies: headache(s), numbness in extremities, weakness in extremities, dizziness, confusion or seizure-like activity Endo: Denies: polyuria or polydipsia Ervin/Lymph: Denies: easy bleeding or purpura All/Imm: Denies: urticaria, throat swelling or tongue swelling Medications/Allergies Home Medications Medication Instructions Recorded Confirmed Last Taken Type amlodipine 10 mg PO QAM 02/22/21 02/24/21 Unknown History aspirin [Aspir-81] 81 mg PO QAM 02/22/21 02/24/21 Unknown History clopidogrel 75 mg PO QAM 02/22/21 02/24/21 Unknown History empagliflozin [Jardiance] 10 mg PO QAM 02/22/21 02/24/21 Unknown History fenofibrate nanocrystallized 145 mg PO BEDTIME 02/22/21 02/24/21 Unknown History insulin glargine [Lantus U-100 40 unit SUBCUT BEDTIME 02/22/21 02/24/21 Unknown History Insulin] losartan 100 mg PO QAM 02/22/21 02/24/21 Unknown History metformin 1,000 mg PO BID 02/22/21 02/24/21 Unknown History metoprolol tartrate 50 mg PO BID 02/22/21 02/24/21 Unknown History ondansetron HCl [Zofran] 4 mg PO Q6H PRN #14 tab 02/22/21 02/24/21 Unknown Rx amoxicillin-pot clavulanate 1 tab PO Q12H 02/24/21 02/24/21 Unknown History [Augmentin] Allergies Allergy/AdvReac Type Severity Reaction Status Date / Time codeine Allergy ADR-Diarrhe Verified 02/24/21 15:03 a tetanus and diphtheria Allergy Unknown Verified 02/24/21 15:03 toxoids PFSH Acute PFSH: Medical History (Updated 02/24/21 @ 19:55 by Zach Webb MD) Arthritis Asthma DM type 2 (diabetes mellitus, type 2) HTN (hypertension) Surgical History (Updated 02/24/21 @ 19:37 by Zach Webb MD) Hx of cholecystectomy Family History Other Cancer Stroke Social History (Updated 02/24/21 @ 19:38 by Zach Webb MD) Smoking and tobacco status: never smoked Alcohol intake: never Substance/Drug Use: never Lives independently: Yes Household members: none Marital status: / Vitals/I&O/Wt Last Vital Signs Temp 99.0 F 02/24/21 15:06 Pulse 100 02/24/21 16:10 Resp 18 02/24/21 16:10 BP 200/76 02/24/21 15:27 Pulse Ox 94 02/24/21 16:10 02/24/21 02/24/21 02/24/21 06:59 14:59 22:59 Intake Total 50 / 50 Balance 50 / 50 Weight last 48 hrs Weight 98.43 kg Physical Exam Const: COMMON NORMALS: patient oriented x3 GENERAL APPEARANCE: cooperative; not comfortable NUTRITIONAL APPEARANCE: overweight ORIENTATION/C ONSCIOUSNESS: Yes awake OTHER: OSAGE HENMT: COMMON NORMALS: oropharynx normal EXTERNAL AUDITORY CANAL: Abnormal EAC present EAC laterality: bilateral erythema, edema and otic discharge TYMPANIC MEMBRANE: TM abnormal TM laterality: bilateral dull, wth effusion, with fluid behind the TM (R), perforated (visualized L) and scarred Eye: CONJUNCTIVA: Yes conjunctival abnormal positive bilateral conjunctival injection and discharge Neck/C-Spine: COMMON NORMALS: no JVD Resp: COMMON NORMALS: normal respiratory effort AUSCULTATION: rhonchi Cardio: COMMON NORMALS: no JVD, regular rhythm, S1 normal heart sound present, S2 normal heart sound present and No murmurs present (Cardio) RHYTHM: regular rhythm HEART SOUNDS: S1 normal heart sound present and S2 normal heart sound present GI: COMMON NORMALS: Normal to inspection, nondistended, normoactive bowel sounds present, Soft to palpation and non-tender PALPATION: Yes Soft to palpation Extremity: COMMON NORMALS: no joint enlargement and no pedal edema Neuro: COMMON NORMALS: patient oriented x3 and moves all extremities Skin: COMMON NORMALS: no rashes or lesions noted GENERAL SKIN EXAM: no rashes or lesions noted Data : 02/24/21 15:21 02/24/21 15:21 Micro: Microbiology 02/24/21 16:34 Blood Culture - Preliminary Blood SPECIMEN COLLECTED 02/24/21 16:37 Blood Culture - Preliminary Blood SPECIMEN COLLECTED A&P Assessment and plan (1) Sepsis: Sepsis with leukocytosis 16.8, mostly neutrophilic, sinus tachycardia 100. Blood cultures collected. Started on Zosyn vancomycin. Source possible left upper lobe pneumonia. With other symptoms including bilateral otitis media, conjunctivitis, possible viral infection. Rapid influenza, COVID-19 antigens negative. Will request COVID-19 PCR as appears it was intended to be collected during recent visit, but I do not see any results. Status: Acute (2) Pneumonia: Continue empiric antibiotic coverage at this time. Collect sputum culture. She is producing yellow/purulent appearing sputum. Urine bacterial antigens including Legionella. Viral respiratory panel. COVID-19 PCR. Status: Acute (3) Left otitis media with spontaneous rupture of eardrum: Bilateral otitis media, external, with left TM perforation, bilateral drainage. 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 Antibiotics as above. Culture of drainage. Follow up w ENT Status: Acute (4) Acute right otitis media: Status: Acute (5) Otitis externa: BL Ciprodex Status: Acute (6) Hyponatremia: Corrected sodium 134. Suspect degree of hypovolemic hyponatremia. Poor oral intake recently. Has received fluid resuscitation in the ER. Status: Acute (7) Bilateral conjunctivitis: Olopatadine. Resp viral panel as above. Status: Acute (8) Metabolic acidosis: Lactic acidosis, with also hyperglycemia, underlying diabetes, has not been checking her sugars as per record for years. Will check UA, serum ketones. pH 7.39. Status: Acute (9) Hyperglycemia: Lantus. Sliding scale insulin. Hold OHA. Status: Acute (10) Hypertensive urgency: Present have episodic hypertension, possibly worsened by her discomfort overall. Continue home antihypertensives, including amlodipine, losartan, metoprolol. Treat underlying conditions. Monitor blood pressures. 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 Follow up w Dr Perez as previously arranged. 16 x 16 mm. Differential includes benign and malignant etiologies. Small bowel adenoma, GIST tumor, hematoma or adenocarcinoma should be considered. Status: Acute Attestations Medical Necessity Statement*: Admission of over 2 midnights is going to be needed for assessment and management of sepsis, PNA, and additional problems as outlined above, unimproved with outpatient trial of management. 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
[2021-02-24 19:49] LABS: Ketone (Acetest) Serum Positive (Negative)
[2021-02-24 20:51] LABS: Add Urine Microscopic? YES; Bilirubin Urine 1+ (Negative); Blood Urine 2+ (Negative); Glucose Urine UA 4+ (Normal); Ketones Urine 3+ (Negative); Leukocyte Esterase Urine Negative (Negative); Nitrate Urine Negative (Negative); Protein Urine 3+ (Negative); Urine Appearance Clear (CLEAR); Urine Color Yellow (Yellow); Urobilinogen Urine Norm (Negative); pH Urine 5 (5-7)
[2021-02-24 20:52] LABS: Bacteria Urine 2+ /hpf; Hyaline Casts Urine 0-4 /lpf; Squamous Epithelial Cell Urine 0-4 /hpf (0-5)
[2021-02-24 20:53] LABS: Add Urine Culture? Yes
[2021-02-24 21:00] LABS: Glucose Point of Care 432 mg/dL (70-110)
[2021-02-24 21:06] LABS: Lactic Acid level (Lactate) 1.9 mmol/L (0.5-2.2)
[2021-02-24 21:32] LABS: Troponin 5 6HR 20.15 ng/L (0-10)
[2021-02-24 21:34] LABS: Blood Urea Nitrogen 14 mg/dL (8-23); Calcium 7.7 mg/dL (8.5-10.5); Carbon Dioxide 10 mmol/L (22-29); Chloride 95 mmol/L (98-107); Glomerular Filtration Rate 71.1 mL/min (90-130); Glucose 397 mg/dL (65-115); Magnesium 1.8 mg/dL (1.7-2.3); Osmolality Calculated 289 mOsm/kg (285-295); Phosphorus 2.9 mg/dL (2.5-4.5); Sodium 131 mmol/L (136-145)
[2021-02-24 21:37] LABS: Troponin 5 6HR Delta -2.85 ng/L (0-12)
[2021-02-25] VITALS (86 sets, daily range): BP systolic 137–198; BP diastolic 55–100; PULSE 71–99; RESP 18–38; TEMP 36.8–37.2; O2SAT 90–97
[2021-02-25] MEDS: enoxaparin 40 mg/0.4 mL Syringe SUBCUT ×2 (00:01→21:17)
[2021-02-25] MEDS: insulin regular-human 250 UNIT in sodium chloride 0.9% 250 ML 11 UNIT IV (00:01)
[2021-02-25] MEDS: sodium chloride 0.9% 1,000 ML 150 ML IV ×2 (00:03→06:10)
[2021-02-25] MEDS: ciprofloxacin-dexameth Otic Susp 7.5 mL Btl 4 DROP EAR-BOTH (00:04)
[2021-02-25] MEDS: olopatadine 0.1% Op Soln 5 mL Btl 1 DROP EYE-BOTH ×3 (00:06→20:13)
[2021-02-25] MEDS: hyDRALAzine 20 mg/mL INJ 1 mL 5 MG IVP (00:08)
[2021-02-25 00:14] LABS: Glucose Point of Care 423 mg/dL (70-110)
[2021-02-25] MEDS: ondansetron 4 MG Tablet PO (00:55)
[2021-02-25 02:13] LABS: Glucose Point of Care 362 mg/dL (70-110)
[2021-02-25 02:13] LABS: Glucose Point of Care 261 mg/dL (70-110)
[2021-02-25 03:16] LABS: Glucose Point of Care 224 mg/dL (70-110)
[2021-02-25 04:12] LABS: Glucose Point of Care 180 mg/dL (70-110)
[2021-02-25] MEDS: aspirin 81 mg EC Tablet PO (05:10)
[2021-02-25] MEDS: losartan 50 mg Tablet 100 MG PO (05:10)
[2021-02-25] MEDS: clopidogrel 75 mg Tablet PO (05:10)
[2021-02-25] MEDS: amlodipine 10 mg Tablet PO (05:10)
[2021-02-25 05:19] LABS: Glucose Point of Care 142 mg/dL (70-110)
[2021-02-25 05:23] LABS: Basophils % 0.3 %; Eosinophils % 0.3 %; Hematocrit 36.4 % (37.0-47.0); Hemoglobin 12.3 g/dL (11.5-15.3); Lymphocytes # 1.3 10^3/uL (0.8-4.8); Lymphocytes % 8.6 %; Mean Corpuscular HGB Conc 33.8 g/dL (30.0-36.0); Mean Corpuscular Hemoglobin 29.2 pg (28.0-34.0); Mean Corpuscular Volume 86.5 fl (81-99); Mean Platelet Volume 10.4 fL (7.4-10.4); Monocytes # 1.1 10^3/uL (0.2-0.9); Monocytes % 7.1 %; Neutrophils # 12.19 10^3/uL (1.8-7.7); Neutrophils % 82.7 %; Nucleated Red Blood Cells % 0 %; Platelet Count 312 10^3/cmm (130-400); Red Blood Count 4.21 10^6/uL (4.1-5.3); Red Cell Distribution Width 12.8 % (12.1-15.1); White Blood Count 14.7 10^3/uL (4.0-10.0)
[2021-02-25 05:43] LABS: Alanine Aminotransferase < 5 U/L (0-33); Albumin Level 2.9 g/dL (3.5-5.2); Alkaline Phosphatase 147 IU/L (35-105); Anion Gap 12.2 (5-19); Aspartate Amino Transferase 8 U/L (0-32); Blood Urea Nitrogen 12 mg/dL (8-23); Calcium 7.8 mg/dL (8.5-10.5); Carbon Dioxide 23 mmol/L (22-29); Chloride 103 mmol/L (98-107); Globulin 3.1 g/dL (1.3-4.6); Glucose 163 mg/dL (65-115); Osmolality Calculated 283 mOsm/kg (285-295); Potassium 3.2 mmol/L (3.5-5.1); Sodium 135 mmol/L (136-145); Total Bilirubin 0.2 mg/dL (0.15-1.2)
[2021-02-25 05:49] LABS: Magnesium 1.9 mg/dL (1.7-2.3); Phosphorus 2.5 mg/dL (2.5-4.5)
[2021-02-25 06:09] LABS: Glucose Point of Care 111 mg/dL (70-110)
--- NOTE | 2021-02-25 07:03 | PC.NURSE ---
bedside report given to Eusebia FLORES
--- NOTE | 2021-02-25 07:04 | PC.NURSE ---
Potassium 3.2, reported lab to physician via voalte
[2021-02-25 07:22] LABS: Estmated Average Glucose 263; Hemoglobin A1C 10.8 % (4.0-6.0)
[2021-02-25 07:22] LABS: Glucose Point of Care 136 mg/dL (70-110)
[2021-02-25 08:16] LABS: Glucose Point of Care 84 mg/dL (70-110)
[2021-02-25] MEDS: metoprolol tartrate 50 mg Tablet PO ×2 (08:54→17:28)
[2021-02-25] MEDS: famotidine 20 mg Tablet PO ×2 (08:54→17:28)
[2021-02-25 09:15] LABS: Glucose Point of Care 105 mg/dL (70-110)
[2021-02-25 10:13] LABS: Glucose Point of Care 121 mg/dL (70-110)
[2021-02-25] MEDS: insulin glargine 100 units/1 mL 35 UNIT SUBCUT (10:28)
--- NOTE | 2021-02-25 11:10 | P.PN_ITS ---
Subjective Subjective: Interval history: That she is not feeling a whole lot better. Reports chest pain with inspiration. Productive cough. Vitals/I&O/Wt Last Vital Signs Temp 98.3 F 02/25/21 08:00 Pulse 92 02/25/21 09:00 Resp 36 H 02/25/21 09:00 BP 145/55 02/25/21 09:00 Pulse Ox 93 02/25/21 09:00 02/24/21 02/25/21 02/25/21 22:59 06:59 14:59 Intake Total 50 / 50 945.2 / 995.2 1002.5 / 1002.5 Output Total 175 / 175 Balance 50 / 50 770.2 / 820.2 1002.5 / 1002.5 Weight last 48 hrs Weight 98.43 kg Physical Exam Const: COMMON NORMALS: patient oriented x3 and alert (More alert and interactive today) GENERAL APPEARANCE: cooperative; not comfortable NUTRITIONAL APPEARANCE: overweight ORIENTATION/CONSCIOUSNESS: Yes awake OTHER: [place] HENMT: COMMON NORMALS: oropharynx normal EXTERNAL AUDITORY CANAL: Abnormal EAC present EAC laterality: bilateral erythema, edema and otic discharge TYMPANIC MEMBRANE: TM abnormal TM laterality: bilateral dull, wth effusion, with fluid behind the TM (R), perforated (visualized L) and scarred Eye: CONJUNCTIVA: Yes conjunctival abnormal positive bilateral conjunctival injection and discharge Neck/C-Spine: COMMON NORMALS: no JVD Resp: COMMON NORMALS: normal respiratory effort AUSCULTATION: rhonchi Cardio: COMMON NORMALS: no JVD, regular rhythm, S1 normal heart sound present, S2 normal heart sound present and No murmurs present (Cardio) RHYTHM: regular rhythm HEART SOUNDS: S1 normal heart sound present and S2 normal heart sound present GI: COMMON NORMALS: Normal to inspection, nondistended, normoactive bowel sounds present, Soft to palpation and non-tender PALPATION: Yes Soft to palpation Extremity: COMMON NORMALS: no joint enlargement and no pedal edema Neuro: COMMON NORMALS: patient oriented x3 and moves all extremities SENSORIUM/ORIENTATION: Yes alert (More alert and interactive today) Skin: COMMON NORMALS: no rashes or lesions noted GENERAL SKIN EXAM: no rashes or lesions noted Data : 02/25/21 04:35 02/25/21 04:35 Micro: Microbiology 02/25/21 01:28 Gram Stain - Final Ear - Right 02/24/21 05:15 Gram Stain - Final Sputum - Expectorated Sputum 02/24/21 20:22 Legionella Urinary Antigen - Final Urine Kidney Bacterial Antigens - Final 02/24/21 16:34 Blood Culture - Preliminary Blood SPECIMEN COLLECTED 02/24/21 16:37 Blood Culture - Preliminary Blood SPECIMEN COLLECTED A&P Assessment and plan (1) Sepsis: Improving sepsis, improved leukocytosis, including tachycardia. Blood cultures collected. Started on Zosyn vancomycin. Left upper lobe pneumonia. Productive cough. With other symptoms including bilateral otitis media, conjunctivitis, possible viral infection. Rapid influenza, COVID-19 antigens negative. Pending COVID-19 PCR Could not update son by phone. Status: Acute (2) Pneumonia: Continue empiric antibiotic coverage at this time. Collect sputum culture. She is producing yellow/purulent appearing sputum. Urine bacterial antigens including Legionella. Viral respiratory panel. COVID-19 PCR. Status: Acute (3) DKA (diabetic ketoacidosis): Metabolic acidosis, positive ketones, started on insulin drip overnight. Anion gap closed, bicarb improved. Transition from insulin drip to subcutaneous insulin. DC IVF. Trial of oral diet. Status: Acute (4) Left otitis media with spontaneous rupture of eardrum: Bilateral otitis media, external, with left TM perforation, bilateral drainage. 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 Antibiotics as above. Culture of drainage. Follow up w ENT Status: Acute (5) Acute right otitis media: Status: Acute (6) Otitis externa: BL Ciprodex Status: Acute (7) Hyponatremia: Improving. Suspect degree of hypovolemic hyponatremia. Poor oral intake recently. Has received fluid resuscitation in the ER. Status: Acute (8) Bilateral conjunctivitis: Olopatadine. Resp viral panel as above. Status: Acute (9) Metabolic acidosis: Lactic acidosis, and ketoacidosis. Proving, bicarb improved. Anion gap closed. Status: Acute (10) Hyperglycemia: Transition from insulin drip. Lantus. Sliding scale insulin. Hold OHA. Status: Acute (11) Hypertensive urgency: Improved. Present have episodic hypertension, possibly worsened by her discomfort overall. Continue home antihypertensives, including amlodipine, losartan, metoprolol. Treat underlying conditions. Monitor blood pressures. 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 Follow up w Dr Perez as previously arranged. 16 x 16 mm. Differential includes benign and malignant etiologies. Small bowel adenoma, GIST tumor, hematoma or adenocarcinoma should be considered. Status: Acute Attestations Medical Necessity Statement*: Continue admission for assessment management of improving sepsis, pneumonia, transition to subcutaneous insulin. Other, but it is as above. Critical Care Time: The high probability of a clinically significant, sudden or life threatening deterioration of the patient's endocrine/DKA, metabolic acidosis, sepsis, system(s) required my full and direct attention, intervention and personal management. The critical care time is as shown. This time is in addition to time spent performing any reported procedures but includes the following: x Data and vital sign review and interpretation x Patient assessment, examination and intervention x Documentation x Medication orders and management Critical Care Time (min): 37 Coding Level of Care Code Acute Overhauler for g Fwd Diagnoses Sepsis A41.9 Pneumonia J18.9 DKA (diabetic ketoacidosis) E11.10 Left otitis media with spontaneous rupture of eardrum H66.92; H72.92 Acute right otitis media H66.91 Otitis externa H60.90 Hyponatremia E87.1 Bilateral conjunctivitis H10.9 Metabolic acidosis E87.2 Hyperglycemia R73.9 Hypertensive urgency I16.0 Small bowel mass K63.89
[2021-02-25 11:14] LABS: Glucose Point of Care 145 mg/dL (70-110)
[2021-02-25 12:00] LABS: Glucose Point of Care 204 mg/dL (70-110)
[2021-02-25] MEDS: insulin lispro 100 unit/1 mL SUBCUT ×3 (12:38→20:12)
[2021-02-25 14:25] LABS: Coronavirus Test Green County Not Detected
[2021-02-25 17:19] LABS: Glucose Point of Care 208 mg/dL (70-110)
[2021-02-25] MEDS: piperacillin-tazobactam 3.375 GM in sodium chloride 0.9% (plus) 50 ML IV (17:28)
[2021-02-25 19:46] LABS: Glucose Point of Care 184 mg/dL (70-110)
--- NOTE | 2021-02-25 21:07 | PC.NURSE ---
Report called to Med surg
[2021-02-25] MEDS: vancomycin 750 MG in sodium chloride 0.9% 250 ML 250 MG IV (21:17)
[2021-02-26] VITALS (9 sets, daily range): BP systolic 158–173; BP diastolic 76–95; PULSE 71–86; RESP 16–24; TEMP 27.7–37; O2SAT 90–98
[2021-02-26] MEDS: piperacillin-tazobactam 3.375 GM in sodium chloride 0.9% (plus) 50 ML IV ×3 (00:45→18:32)
[2021-02-26] MEDS: clopidogrel 75 mg Tablet PO (05:37)
[2021-02-26] MEDS: aspirin 81 mg EC Tablet PO (05:37)
[2021-02-26] MEDS: amlodipine 10 mg Tablet PO (05:37)
[2021-02-26] MEDS: losartan 50 mg Tablet 100 MG PO (05:37)
[2021-02-26 05:56] LABS: Basophils # 0.1 10^3/uL (0.0-0.1); Basophils % 0.7 %; Eosinophils # 0.2 10^3/uL (0.0-0.8); Eosinophils % 1.2 %; Hematocrit 43.3 % (37.0-47.0); Lymphocytes # 1.2 10^3/uL (0.8-4.8); Lymphocytes % 8.4 %; Mean Corpuscular HGB Conc 32.3 g/dL (30.0-36.0); Mean Corpuscular Hemoglobin 29.3 pg (28.0-34.0); Mean Corpuscular Volume 90.6 fl (81-99); Mean Platelet Volume 10.2 fL (7.4-10.4); Monocytes # 0.9 10^3/uL (0.2-0.9); Monocytes % 6.3 %; Neutrophils # 11.52 10^3/uL (1.8-7.7); Neutrophils % 81.8 %; Nucleated Red Blood Cells % 0 %; Platelet Count 302 10^3/cmm (130-400); Red Blood Count 4.78 10^6/uL (4.1-5.3); Red Cell Distribution Width 13.2 % (12.1-15.1); White Blood Count 14.1 10^3/uL (4.0-10.0)
[2021-02-26 06:18] LABS: Alanine Aminotransferase 6 U/L (0-33); Albumin Level 2.8 g/dL (3.5-5.2); Alkaline Phosphatase 88 IU/L (35-105); Anion Gap 22.2 (5-19); Aspartate Amino Transferase 11 U/L (0-32); Blood Urea Nitrogen 17 mg/dL (8-23); Calcium 7.9 mg/dL (8.5-10.5); Carbon Dioxide 17 mmol/L (22-29); Chloride 100 mmol/L (98-107); Globulin 3.3 g/dL (1.3-4.6); Glucose 211 mg/dL (65-115); Osmolality Calculated 288 mOsm/kg (285-295); Potassium 4.2 mmol/L (3.5-5.1); Sodium 135 mmol/L (136-145); Total Bilirubin 0.2 mg/dL (0.15-1.2); Total Protein 6.1 g/dL (6.6-8.7)
[2021-02-26 06:20] LABS: Glucose Point of Care 233 mg/dL (70-110)
[2021-02-26 06:45] LABS: Glucose Point of Care 173 mg/dL (70-110)
[2021-02-26] MEDS: vancomycin 750 MG in sodium chloride 0.9% 250 ML 250 MG IV ×2 (09:24→21:52)
[2021-02-26] MEDS: insulin glargine 100 units/1 mL 35 UNIT SUBCUT (09:28)
[2021-02-26] MEDS: insulin lispro 100 unit/1 mL SUBCUT ×3 (09:28→21:53)
[2021-02-26] MEDS: famotidine 20 mg Tablet PO ×2 (09:29→18:37)
[2021-02-26] MEDS: olopatadine 0.1% Op Soln 5 mL Btl 1 DROP EYE-BOTH ×2 (09:29→18:31)
[2021-02-26] MEDS: metoprolol tartrate 50 mg Tablet PO ×2 (09:29→18:31)
--- NOTE | 2021-02-26 12:23 | PC.CHAP ---
Pastoral Care Encounter/Spiritual Assessment Type of Contact [] Declined grips visit [] Patient/Family/Request visit [] Outpatient visit [] Follow-up visit [] Physician referral [] Code/Alert [XX] Routine visit [] Staff referral [] Actively dying [XX] Patient sleeping [] Family support [] [] Out of room [] Palliative care [] [] Receiving care in room [] Pre-surgical visit [] Trauma [] Long length of stay [] ICU visit [] Other: Relational/Emotional Strength [] Patient feels connected with others/family/visitors/staff [] Distress [] Loneliness/isolation [] Abandonment Spirituality of Patient [] Person of Tanja [] Attends Muslim of their Tanja [] Believes in Prayer [] Reads Bible or Restoration materials [] There are Spiritual issues to be addressed Pole Classifier Interventions [] Prayer [] Active listening [] Non-anxious presence [] Spiritual/emotional support [] Crisis/trauma care [] Spiritual counseling [] Bereavement support [] Provided bereavement packet [] Provided Bible/devotional materials [] Provided toy/stuffed animal, coloring book to patient or family member [] Provided Communion [] Anointing/[place] [] Salvation [] Completed spiritual assessment [] Other: Impact on Illness or Injury [] Angry [] Fearful [] Anxious [] Often cries [] Exhaustion [] Unable to work [] Unable to attend yarsanism [] Unable to walk/stand [] Unable to read [] Unable to drive [] Unable to eat/drink [] Unable to sleep [] Unable to be with family [] Patient intubated [] Other: Summary Time spent with patient
[2021-02-26 12:29] LABS: Glucose Point of Care 195 mg/dL (70-110)
[2021-02-26 17:04] LABS: Glucose Point of Care 142 mg/dL (70-110)
--- NOTE | 2021-02-26 19:24 | P.PN_ITS ---
Subjective Subjective: Interval history: Pleuritic chest discomfort. Feels slightly better. Vitals/I&O/Wt Last Vital Signs Temp 98.6 F 02/26/21 15:38 Pulse 77 02/26/21 18:13 Resp 24 H 02/26/21 15:38 BP 158/76 02/26/21 15:38 Pulse Ox 96 02/26/21 18:14 02/26/21 02/26/21 02/26/21 06:59 14:59 22:59 Intake Total 350 / 2198.103 250 / 250 50 / 300 Output Total 200 / 200 Balance 350 / 2196.103 250 / 250 -150 / 100 Physical Exam Const: COMMON NORMALS: patient oriented x3 and alert (More alert and interactive today) GENERAL APPEARANCE: cooperative; not comfortable (Uncomfortable but less so than before) NUTRITIONAL APPEARANCE: overweight ORIENTATION/CONSCIOUSNESS: Yes awake OTHER: [place] HENMT: COMMON NORMALS: oropharynx normal EXTERNAL AUDITORY CANAL: Abnormal EAC present EAC laterality: bilateral erythema, edema and otic discharge TYMPANIC MEMBRANE: TM abnormal TM laterality: bilateral dull, wth effusion, with fluid behind the TM (R), perforated (visualized L) and scarred Eye: CONJUNCTIVA: Yes conjunctival abnormal positive bilateral conjunctival injection and discharge Neck/C-Spine: COMMON NORMALS: no JVD Resp: COMMON NORMALS: normal respiratory effort AUSCULTATION: rhonchi Cardio: COMMON NORMALS: no JVD, regular rhythm, S1 normal heart sound present, S2 normal heart sound present and No murmurs present (Cardio) RHYTHM: regular rhythm HEART SOUNDS: S1 normal heart sound present and S2 normal heart sound present GI: COMMON NORMALS: Normal to inspection, nondistended, normoactive bowel sounds present, Soft to palpation and non-tender PALPATION: Yes Soft to palpation Extremity: COMMON NORMALS: no joint enlargement and no pedal edema Neuro: COMMON NORMALS: patient oriented x3 and moves all extremities SENSORIUM/ORIENTATION: Yes alert (More alert and interactive today) Skin: COMMON NORMALS: no rashes or lesions noted GENERAL SKIN EXAM: no rashes or lesions noted Data : 02/26/21 04:54 02/26/21 04:54 Micro: Microbiology 02/25/21 01:28 Gram Stain - Final Ear - Right Wound Culture - Preliminary 02/24/21 20:22 Urine Culture - Preliminary Urine,Clean Catch Gram Negative Rods 02/24/21 05:15 Gram Stain - Final Sputum - Expectorated Sputum Sputum Culture - Preliminary 02/24/21 16:34 Blood Culture - Preliminary Blood NEGATIVE TO DATE 02/24/21 16:37 Blood Culture - Preliminary Blood NEGATIVE TO DATE A&P Assessment and plan (1) Sepsis: Sepsis is gradually improving. Additional mild improvement in leukocytosis. Resolved tachycardia. Subjectively feeling slightly better. Still cough, pleuritic discomfort. Continue empiric antibiotics. Blood cultures collected. Left upper lobe pneumonia. Productive cough. With other symptoms including bilateral otitis media, conjunctivitis, possible viral infection. Rapid influenza, COVID-19 antigens negative. Negative COVID-19 PCR Status: Acute (2) Pneumonia: Continue empiric antibiotic coverage at this time. Follow-up sputum culture. Moderate mixed upper respiratory valarie so far. Was producing yellow/purulent appearing sputum. Urine bacterial antigens including Legionella. Viral respiratory panel. COVID-19 PCR negative. Discontinued isolation. Status: Acute (3) DKA (diabetic ketoacidosis): Resolved. Continue subcutaneous insulin. Status: Acute (4) Left otitis media with spontaneous rupture of eardrum: Gram-positive cocci on culture. IV antibiotics as above. Ciprodex. Bilateral otitis media, external, with left TM perforation, bilateral drainage. 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 Follow up w ENT Status: Acute (5) Acute right otitis media: Status: Acute (6) Otitis externa: BL Ciprodex Status: Acute (7) Hyponatremia: Better. Suspect degree of hypovolemic hyponatremia. Poor oral intake recently. Has received fluid resuscitation in the ER. Status: Acute (8) Bilateral conjunctivitis: Olopatadine. Resp viral panel as above. Status: Acute (9) Metabolic acidosis: Improved, although today bicarbonate again lower. Follow-up. Lactic acidosis, ketoacidosis had resolved. Status: Acute (10) Hyperglycemia: Lantus. Sliding scale insulin. Hold OHA. Status: Acute (11) Hypertensive urgency: Doing better, although could be optimized further. Present have episodic hypertension, possibly worsened by her discomfort overall. Continue home antihypertensives, including amlodipine, losartan, metoprolol. Treat underlying conditions. Monitor blood pressures. 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 Follow up w Dr Perez as previously arranged. 16 x 16 mm. Differential includes benign and malignant etiologies. Small bowel adenoma, GIST tumor, hematoma or adenocarcinoma should be considered. Status: Acute Attestations Medical Necessity Statement*: Continue admission for assessment management of pneumonia, UTI, Otitis media. Coding Level of Care Code Acute Extension Course Coordinator for Chg Fwd Exam Comprehensive Diagnoses Sepsis A41.9 Pneumonia J18.9 DKA (diabetic ketoacidosis) E11.10 Left otitis media with spontaneous rupture of eardrum H66.92; H72.92 Acute right otitis media H66.91 Otitis externa H60.90 Hyponatremia E87.1 Bilateral conjunctivitis H10.9 Metabolic acidosis E87.2 Hyperglycemia R73.9 Hypertensive urgency I16.0 Small bowel mass K63.89
[2021-02-26 20:45] LABS: Glucose Point of Care 152 mg/dL (70-110)
[2021-02-26] MEDS: enoxaparin 40 mg/0.4 mL Syringe SUBCUT (21:53)
[2021-02-27] VITALS (8 sets, daily range): BP systolic 107–175; BP diastolic 67–77; PULSE 69–79; RESP 16–22; TEMP 36.5–36.8; O2SAT 89–95
[2021-02-27] MEDS: piperacillin-tazobactam 3.375 GM in sodium chloride 0.9% (plus) 50 ML IV ×3 (03:46→18:59)
[2021-02-27 04:54] LABS: Basophils # 0.1 10^3/uL (0.0-0.1); Basophils % 0.6 %; Eosinophils # 0.3 10^3/uL (0.0-0.8); Eosinophils % 2.9 %; Hematocrit 37.5 % (37.0-47.0); Hemoglobin 12.4 g/dL (11.5-15.3); Lymphocytes # 1.2 10^3/uL (0.8-4.8); Mean Corpuscular HGB Conc 33.1 g/dL (30.0-36.0); Mean Corpuscular Hemoglobin 29.2 pg (28.0-34.0); Mean Corpuscular Volume 88.2 fl (81-99); Mean Platelet Volume 9.7 fL (7.4-10.4); Monocytes # 0.7 10^3/uL (0.2-0.9); Monocytes % 6.2 %; Neutrophils % 78.7 %; Nucleated Red Blood Cells % 0 %; Platelet Count 358 10^3/cmm (130-400); Red Blood Count 4.25 10^6/uL (4.1-5.3); Red Cell Distribution Width 13.1 % (12.1-15.1); White Blood Count 11.6 10^3/uL (4.0-10.0)
[2021-02-27 05:09] LABS: Alanine Aminotransferase < 5 U/L (0-33); Albumin Level 2.6 g/dL (3.5-5.2); Alkaline Phosphatase 78 IU/L (35-105); Anion Gap 17.8 (5-19); Aspartate Amino Transferase 8 U/L (0-32); Blood Urea Nitrogen 16 mg/dL (8-23); Calcium 7.8 mg/dL (8.5-10.5); Carbon Dioxide 18 mmol/L (22-29); Chloride 102 mmol/L (98-107); Creatinine Clr Calc Pharmacy 68.5196; Globulin 3.2 g/dL (1.3-4.6); Glomerular Filtration Rate 62.1 mL/min (90-130); Glucose 147 mg/dL (65-115); Osmolality Calculated 282 mOsm/kg (285-295); Potassium 3.8 mmol/L (3.5-5.1); Sodium 134 mmol/L (136-145); Total Bilirubin 0.2 mg/dL (0.15-1.2); Total Protein 5.8 g/dL (6.6-8.7)
--- NOTE | 2021-02-27 06:00 | XRR_ITS ---
PROCEDURE INFORMATION: Exam: XR Chest Exam date and time: 02/27/2021 6:00 AM Age: 70 years old Clinical indication: Shortness of breath; Additional info: Hypoxia TECHNIQUE: Imaging protocol: XR of the chest. Views: 1 view. Total images: 1 COMPARISON: CR XR chest 1V portable [id number] 02/24/2021 4:01 PM FINDINGS: Lungs: Left pulmonary opacity is again noted and has shown interval worsening from the prior exam. Pleural spaces: Unremarkable. No pleural effusion. No pneumothorax. Heart/Mediastinum: Cardiomegaly. Vasculature: Atherosclerosis is evident. Bones/joints: Osseous structures are unchanged from the prior exam. XR/XR chest 1V portable [id number] IMPRESSION: 1. Cardiomegaly. 2. Left pulmonary opacity is again noted and has shown interval worsening from the prior exam.
[2021-02-27] MEDS: losartan 50 mg Tablet 100 MG PO (06:05)
[2021-02-27] MEDS: aspirin 81 mg EC Tablet PO (06:06)
[2021-02-27] MEDS: amlodipine 10 mg Tablet PO (06:06)
[2021-02-27] MEDS: clopidogrel 75 mg Tablet PO (06:06)
[2021-02-27 06:19] LABS: Glucose Point of Care 150 mg/dL (70-110)
[2021-02-27] MEDS: ipratropium-albuterol 3 mL Neb INHALATION (07:43)
[2021-02-27] MEDS: insulin lispro 100 unit/1 mL SUBCUT ×4 (08:15→22:03)
[2021-02-27] MEDS: metoprolol tartrate 50 mg Tablet PO ×2 (08:15→17:49)
[2021-02-27] MEDS: insulin glargine 100 units/1 mL 35 UNIT SUBCUT (08:15)
[2021-02-27] MEDS: famotidine 20 mg Tablet PO ×2 (08:15→17:49)
[2021-02-27] MEDS: olopatadine 0.1% Op Soln 5 mL Btl 1 DROP EYE-BOTH ×2 (08:24→17:49)
[2021-02-27 08:46] LABS: Vancomycin Trough 11.2 ug/mL (10-15)
[2021-02-27] MEDS: vancomycin 750 MG in sodium chloride 0.9% 250 ML 250 MG IV ×2 (09:42→20:40)
[2021-02-27 11:29] LABS: Glucose Point of Care 250 mg/dL (70-110)
--- NOTE | 2021-02-27 12:20 | PC.CHAP ---
Pastoral Care Encounter/Spiritual Assessment Type of Contact [] Declined sealant mixer visit [] Patient/Family/Request visit [] Outpatient visit [] Follow-up visit [] Physician referral [] Code/Alert [XX] Routine visit [] Staff referral [] Actively dying [] Patient sleeping [] Family support [] [] Out of room [] Palliative care [] [XX] Receiving care in room [] Pre-surgical visit [] Trauma [] Long length of stay [] ICU visit [XX] Other: [employer] Logger entered room finding pt in need of nursing assistance. [employer] Logger sought care and waited with pt until care arrived. Relational/Emotional Strength [] Patient feels connected with others/family/visitors/staff [] Distress [] Loneliness/isolation [] Abandonment Spirituality of Patient [] Person of [place] [] Attends Jain of their Tanja [] Believes in Prayer [] Reads Bible or Taoist materials [] There are Spiritual issues to be addressed Surface [employer] Logger Interventions [] Prayer [] Active listening [] Non-anxious presence [] Spiritual/emotional support [] Crisis/trauma care [] Spiritual counseling [] Bereavement support [] Provided bereavement packet [] Provided Bible/devotional materials [] Provided toy/stuffed animal, coloring book to patient or family member [] Provided Communion [] Anointing/[place] [] Salvation [] Completed spiritual assessment [] Other: Impact on Illness or Injury [] Angry [] Fearful [] Anxious [] Often cries [] Exhaustion [] Unable to work [] Unable to attend taoist [] Unable to walk/stand [] Unable to read [] Unable to drive [] Unable to eat/drink [] Unable to sleep [] Unable to be with family [] Patient intubated [] Other: Summary Time spent with patient
[2021-02-27 17:00] LABS: Glucose Point of Care 245 mg/dL (70-110)
--- NOTE | 2021-02-27 20:08 | P.PN_ITS ---
Subjective Subjective: Interval history: She states she does not feel better today. She is still having chest congestion, chest discomfort with inspiration. Cough. Discussed with her otherwise improving parameters including leukocytosis, improving oxygen requirement. Vitals/I&O/Wt Last Vital Signs Temp 98.2 F 02/27/21 15:39 Pulse 72 02/27/21 15:39 Resp 16 02/27/21 15:39 BP 107/71 02/27/21 15:39 Pulse Ox 94 02/27/21 15:39 02/27/21 02/27/21 02/27/21 06:59 14:59 22:59 Intake Total 250 / 720 1020 / 1020 50 / 1070 Balance 250 / 520 1020 / 1020 50 / 1070 Physical Exam Const: COMMON NORMALS: no acute distress, patient oriented x3 and alert (More alert and interactive today) GENERAL APPEARANCE: cooperative NUTRITIONAL APPEARANCE: overweight ORIENTATION/CONSCIOUSNESS: Yes awake OTHER: [place] HENMT: COMMON NORMALS: oropharynx normal EXTERNAL AUDITORY CANAL: Abnormal EAC present EAC laterality: bilateral erythema, edema and otic discharge TYMPANIC MEMBRANE: TM abnormal Eye: CONJUNCTIVA: Yes conjunctival abnormal positive bilateral conjunctival injection and discharge Neck/C-Spine: COMMON NORMALS: no JVD Resp: COMMON NORMALS: normal respiratory effort and clear to auscultation bilaterally AUSCULTATION: clear to auscultation bilaterally Cardio: COMMON NORMALS: no JVD, regular rhythm, S1 normal heart sound present, S2 normal heart sound present and No murmurs present (Cardio) RHYTHM: regular rhythm HEART SOUNDS: S1 normal heart sound present and S2 normal heart sound present GI: COMMON NORMALS: Normal to inspection, nondistended, normoactive bowel sounds present, Soft to palpation and non-tender PALPATION: Yes Soft to palpation Extremity: COMMON NORMALS: no joint enlargement and no pedal edema Neuro: COMMON NORMALS: patient oriented x3 and moves all extremities SENSORIUM/ORIENTATION: Yes alert (More alert and interactive today) Skin: COMMON NORMALS: no rashes or lesions noted GENERAL SKIN EXAM: no rashes or lesions noted Data : 02/27/21 04:38 02/27/21 04:38 Micro: Microbiology 02/25/21 01:28 Gram Stain - Final Ear - Right Wound Culture - Preliminary 02/24/21 05:15 Gram Stain - Final Sputum - Expectorated Sputum Sputum Culture - Final 02/24/21 20:22 Urine Culture - Final Urine,Clean Catch Escherichia coli A&P Assessment and plan (1) Sepsis: Sepsis is resolving. WBC count down to 11.6. Tachycardia resolved. Afebrile. Subjectively does not really feel better. Continue empiric antibiotics. Blood cultures collected. Left upper lobe pneumonia. Productive cough. With other symptoms including bilateral otitis media, conjunctivitis, possible viral infection. Rapid influenza, COVID-19 antigens negative. Negative COVID-19 PCR Status: Acute (2) Pneumonia: Still cough, pleuritic discomfort. Interval worsening of left pulmonary opacity on x-ray. Will follow up with CT. Continue broad-spectrum antibiotic coverage. Follow-up sputum culture. Moderate mixed upper respiratory valarie so far. Was producing yellow/purulent appearing sputum. Urine bacterial antigens including Legionella. Viral respiratory panel. COVID-19 PCR negative. Discontinued isolation. Status: Acute (3) Left otitis media with spontaneous rupture of eardrum: Gram-positive cocci on culture. IV antibiotics as above. Ciprodex. Bilateral otitis media, external, with left TM perforation, bilateral drainage. 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 Follow up w ENT Status: Acute (4) Acute right otitis media: Status: Acute (5) Otitis externa: BL Ciprodex Status: Acute (6) Hyponatremia: Better. But some persistent hyponatremia. Suspected secondary to acute pulmonary condition. Status: Acute (7) Bilateral conjunctivitis: Olopatadine. Resp viral panel as above. Status: Acute (8) Metabolic acidosis: Bicarb up to 18, anion gap down to 17.8. Delta gap ratio suggestive of hyperchloremic normal gap acidosis. Lactic acidosis, ketoacidosis had resolved. Status: Acute (9) Hyperglycemia: Lantus. Sliding scale insulin. Hold OHA. Status: Acute (10) Hypertensive urgency: Resolved. Present have episodic hypertension, possibly worsened by her discomfort overall. Continue home antihypertensives, including amlodipine, losartan, metoprolol. Treat underlying conditions. Monitor blood pressures. 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 Follow up w Dr Perez as previously arranged. 16 x 16 mm. Differential includes benign and malignant etiologies. Small bowel adenoma, GIST tumor, hematoma or adenocarcinoma should be considered. Status: Acute (12) DKA (diabetic ketoacidosis): Resolved. Continue subcutaneous insulin. Status: Acute Attestations Medical Necessity Statement*: Continue admission for assessment management of worsening pneumonia, resolving sepsis. Coding Level of Care Code Acute Geological Science Teacher for Chg Fwd Diagnoses Sepsis A41.9 Pneumonia J18.9 Left otitis media with spontaneous rupture of eardrum H66.92; H72.92 Acute right otitis media H66.91 Otitis externa H60.90 Hyponatremia E87.1 Bilateral conjunctivitis H10.9 Metabolic acidosis E87.2 Hyperglycemia R73.9 Hypertensive urgency I16.0 Small bowel mass K63.89 DKA (diabetic ketoacidosis) E11.10
--- NOTE | 2021-02-27 20:11 | CTR_ITS ---
PROCEDURE INFORMATION: Exam: CT Chest Without Contrast; Diagnostic Exam date and time: 02/27/2021 8:11 PM Age: 70 years old Clinical indication: Pain; Chest pressure; Additional info: Pna, persistent pleuritic symptoms, worsening on chest x-ray TECHNIQUE: Imaging protocol: Diagnostic computed tomography of the chest without contrast. Radiation optimization: All CT scans at this facility use at least one of these dose optimization techniques: automated exposure control; mA and/or kV adjustment per patient size (includes targeted exams where dose is matched to clinical indication); or iterative reconstruction. COMPARISON: CR (CHEST, ) 02/27/2021 9:25 AM RADIATION DOSE METRICS: Total DLP (mGy-cm): 883.87 FINDINGS: Limitations: Motion on multiple slices. Thyroid: Two small calcifications in the right thyroid lobe. Lungs: Calcified granuloma in the inferior lingula and superior right middle lobe. Air bronchograms in consolidation in the anterior medial left upper lobe extending into the left upper hilum. Slight atelectasis in the lingula and left lower lobe. Minimal atelectasis in the right upper and lower lobes. Thin stranding density on the tracheal wall. Narrowing of the left central bronchi. Pleural spaces: Water density in the mild left pleural effusion. Probable tiny amount of right inferior pleural fluid. No pneumothorax. Heart: Cardiomegaly. No pericardial effusion. Prominent left coronary artery calcifications. Aorta: Atherosclerosis. No aortic aneurysm. Veins: Circumaortic left renal vein. Approximately 5 x 5 x 8 mm slightly irregular calcification within the proximal preaortic left renal vein. Lymph nodes: Multiple calcified mediastinal and bilateral hilar lymph nodes; calcification in 1 prominent node along the anterior segmental left upper lobe bronchus. Noncalcified enlarged mediastinal nodes also evident. Gallbladder and bile ducts: Cholecystectomy. No biliary ductal dilatation. Bones/joints: Old compression fractures. Degeneration of several discs. Bilateral cervical ribs, larger on the right. Hypoplastic right and tiny left 12th ribs. Old fracture of the distal right 4th rib. Acute-appearing fracture of the distal left 5th rib. Soft tissues: Patchy body wall edema. CT/CT chest wo con [id number] IMPRESSION: 1. Consolidation in the anteromedial left upper lobe extending into the left hilum raising the possibility of postobstructive disease. Calcification in a prominent node along the anterior segmental left upper lobe bronchus. Noncalcified left hilar mass not excluded due to the lack of IV contrast. 2. Mild left and probable tiny right pleural effusions, questionably related to the cardiomegaly and body wall edema, the left upper lobe disease and/or the acute-appearing left 5th rib fracture. 3. Old granulomatous disease detailed above. Noncalcified mediastinal adenopathy also evident, significance unclear. 4. Focal calcification within the proximal preaortic left renal vein raising the possibility of old thrombus. 5. Prominent left coronary artery calcifications. 6. Two small right thyroid calcifications, but no apparent thyroid mass. 7. Developmental and old bony findings and other abnormalities detailed above.
[2021-02-27] MEDS: enoxaparin 40 mg/0.4 mL Syringe SUBCUT (21:01)
[2021-02-27 21:12] LABS: Glucose Point of Care 217 mg/dL (70-110)
[2021-02-28] VITALS (8 sets, daily range): BP systolic 168–187; BP diastolic 69–77; PULSE 71–85; RESP 16–20; TEMP 36.5–37; O2SAT 90–97
[2021-02-28] MEDS: piperacillin-tazobactam 3.375 GM in sodium chloride 0.9% (plus) 50 ML IV ×2 (03:45→13:03)
[2021-02-28] MEDS: amlodipine 10 mg Tablet PO (05:17)
[2021-02-28] MEDS: aspirin 81 mg EC Tablet PO (05:17)
[2021-02-28] MEDS: clopidogrel 75 mg Tablet PO (05:18)
[2021-02-28] MEDS: losartan 50 mg Tablet 100 MG PO (05:18)
[2021-02-28 06:06] LABS: Basophils # 0.1 10^3/uL (0.0-0.1); Basophils % 0.7 %; Eosinophils # 0.2 10^3/uL (0.0-0.8); Eosinophils % 2.4 %; Hematocrit 37.9 % (37.0-47.0); Hemoglobin 12.5 g/dL (11.5-15.3); Lymphocytes # 1.1 10^3/uL (0.8-4.8); Lymphocytes % 11.3 %; Mean Corpuscular Volume 87.9 fl (81-99); Mean Platelet Volume 10.3 fL (7.4-10.4); Monocytes # 0.6 10^3/uL (0.2-0.9); Monocytes % 6.3 %; Neutrophils # 7.32 10^3/uL (1.8-7.7); Neutrophils % 77.6 %; Nucleated Red Blood Cells % 0 %; Platelet Count 367 10^3/cmm (130-400); Red Blood Count 4.31 10^6/uL (4.1-5.3); White Blood Count 9.5 10^3/uL (4.0-10.0)
[2021-02-28 06:31] LABS: Alanine Aminotransferase < 5 U/L (0-33); Albumin Level 2.7 g/dL (3.5-5.2); Alkaline Phosphatase 92 IU/L (35-105); Anion Gap 18.5 (5-19); Aspartate Amino Transferase 6 U/L (0-32); Blood Urea Nitrogen 15 mg/dL (8-23); Calcium 8.4 mg/dL (8.5-10.5); Carbon Dioxide 20 mmol/L (22-29); Chloride 106 mmol/L (98-107); Globulin 3.2 g/dL (1.3-4.6); Glucose 120 mg/dL (65-115); Osmolality Calculated 294 mOsm/kg (285-295); Potassium 3.5 mmol/L (3.5-5.1); Sodium 141 mmol/L (136-145); Total Bilirubin 0.2 mg/dL (0.15-1.2); Total Protein 5.9 g/dL (6.6-8.7)
[2021-02-28 06:39] LABS: Glucose Point of Care 121 mg/dL (70-110)
[2021-02-28] MEDS: insulin glargine 100 units/1 mL 35 UNIT SUBCUT (08:37)
[2021-02-28] MEDS: olopatadine 0.1% Op Soln 5 mL Btl 1 DROP EYE-BOTH ×2 (08:37→18:36)
[2021-02-28] MEDS: famotidine 20 mg Tablet PO ×2 (08:38→18:36)
[2021-02-28] MEDS: metoprolol tartrate 50 mg Tablet PO (08:38)
[2021-02-28] MEDS: vancomycin 750 MG in sodium chloride 0.9% 250 ML 250 MG IV ×2 (09:25→23:47)
--- NOTE | 2021-02-28 11:08 | CTR_ITS ---
PROCEDURE INFORMATION: Exam: CT Chest With Contrast; Diagnostic Exam date and time: 02/28/2021 11:08 AM Age: 70 years old Clinical indication: Angina; Prior surgery; Surgery type: Gb; Additional info: Possible hilar mass with obstructive pna TECHNIQUE: Imaging protocol: Diagnostic computed tomography of the chest with contrast. Radiation optimization: All CT scans at this facility use at least one of these dose optimization techniques: automated exposure control; mA and/or kV adjustment per patient size (includes targeted exams where dose is matched to clinical indication); or iterative reconstruction. Contrast material: OMNI 300; Contrast volume: 95 ml; Contrast route: INTRAVENOUS (IV); COMPARISON: CT chest wo con [id number] 02/27/2021 10:36 PM RADIATION DOSE METRICS: Total DLP (mGy-cm): 873.98 FINDINGS: Lungs: There is consolidation in the anterior left upper lobe measuring 7.9 x 4.1 cm with air bronchograms. No definite obstructing mass is identified. There is a calcified granuloma in the right upper lobe. There is consolidation in the left lower lobe of the lung.There is probable atelectasis/scar in the lungs. Pleural spaces: There is a moderate left pleural effusion. No pneumothorax. Heart: Unremarkable. No cardiomegaly. No pericardial effusion. Mediastinal space: There is calcification in the bilateral mediastinum. Aorta: Unremarkable. No aortic aneurysm. Lymph nodes: Unremarkable. No enlarged lymph nodes. Bones/joints: Degenerative change is identified in the spine. There is no evidence for acute fracture or malalignment. Soft tissues: Unremarkable. CT/CT chest w con* [id number] IMPRESSION: No significant change when compared with 02/27/2021. There is consolidation in the anterior left upper lobe of the lung as before. No definite centrally obstructing mass is identified.If there is desire for further evaluation, a bronchoscopy could be performed.
[2021-02-28 11:40] LABS: Glucose Point of Care 179 mg/dL (70-110)
[2021-02-28] MEDS: insulin lispro 100 unit/1 mL SUBCUT (13:03)
--- NOTE | 2021-02-28 13:48 | PC.OT ---
OT TREATMENT ATTEMPTED; PATIENT UNAVAILABLE; GOING TO CT.
[2021-02-28] MEDS: iohexol 300 mg/mL 100 mL Btl IV (15:53)
--- NOTE | 2021-02-28 17:40 | PM.PN ---
Subjective Subjective: Interval history: Hospital course, labs appreciated. On oxygen supplementation to keep saturation over 90%. Denies any nausea vomiting, headache. States feeling little better. Blood pressures on the higher side. Vitals/I&O/Wt Last Vital Signs Temp 98.3 F 02/28/21 12:00 Pulse 71 02/28/21 12:00 Resp 20 H 02/28/21 12:00 BP 178/71 02/28/21 12:00 Pulse Ox 91 02/28/21 12:00 02/28/21 02/28/21 02/28/21 06:59 14:59 22:59 Intake Total 28.125 / 5728.937 9048 / 1020 50 / 1070 Balance 28.125 / 9920.188 1839 / 1020 50 / 1070 Physical Exam Const: COMMON NORMALS: no acute distress, patient oriented x3 and alert (More alert and interactive today) GENERAL APPEARANCE: cooperative NUTRITIONAL APPEARANCE: overweight ORIENTATION/CONSCIOUSNESS: Yes awake OTHER: [place] HENMT: COMMON NORMALS: oropharynx normal EXTERNAL AUDITORY CANAL: Abnormal EAC present EAC laterality: bilateral erythema, edema and otic discharge TYMPANIC MEMBRANE: TM abnormal TM laterality: bilateral dull, wth effusion, with fluid behind the TM (R), perforated (visualized L) and scarred Eye: CONJUNCTIVA: Yes conjunctival abnormal positive bilateral conjunctival injection and discharge Neck/C-Spine: COMMON NORMALS: no JVD Resp: COMMON NORMALS: normal respiratory effort and clear to auscultation bilaterally AUSCULTATION: clear to auscultation bilaterally Cardio: COMMON NORMALS: no JVD, regular rhythm, S1 normal heart sound present, S2 normal heart sound present and No murmurs present (Cardio) RHYTHM: regular rhythm HEART SOUNDS: S1 normal heart sound present and S2 normal heart sound present GI: COMMON NORMALS: Normal to inspection, nondistended, normoactive bowel sounds present, Soft to palpation and non-tender PALPATION: Yes Soft to palpation Extremity: COMMON NORMALS: no joint enlargement and no pedal edema Neuro: COMMON NORMALS: patient oriented x3 and moves all extremities SENSORIUM/ORIENTATION: Yes alert (More alert and interactive today) Skin: COMMON NORMALS: no rashes or lesions noted GENERAL SKIN EXAM: no rashes or lesions noted Data : 02/28/21 04:58 02/28/21 04:58 Micro: Microbiology 02/25/21 01:28 Gram Stain - Final Ear - Right Wound Culture - Final 02/24/21 05:15 Gram Stain - Final Sputum - Expectorated Sputum Sputum Culture - Final A&P Assessment and plan (1) Hypoxia: Likely secondary to pneumonia. Given elevated blood pressures cannot rule out mild congestive heart failure. Check echocardiogram. Oxygen supplementation keeping saturation over 88%. Status: Acute (2) Sepsis: Sepsis is resolving. Left upper lobe pneumonia. Productive cough. Cannot rule out obstructive pneumonia. COVID-19 antigen, rapid flu negative. COVID-19 PCR negative. With other symptoms including bilateral otitis media, conjunctivitis, possible viral infection. Status: Acute (3) Pneumonia: Check CT with contrast to rule out obstructive pneumonia, further visualization of possible hilar mass. Follow blood cultures. Check sputum culture. Respiratory viral panel sent and results awaited. Urine Legionella bacterial antigen negative. For now continue with vancomycin and Zosyn. We will continue to finish a 5-day course. COVID-19 PCR negative. Remove isolation precautions. Status: Acute (4) Left otitis media with spontaneous rupture of eardrum: Gram-positive cocci on culture. IV antibiotics as above. Ciprodex. Bilateral otitis media, external, with left TM perforation, bilateral drainage. 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 Follow up w ENT Status: Acute (5) Acute right otitis media: Status: Acute (6) Otitis externa: BL Ciprodex Status: Acute (7) Hyponatremia: Better. But some persistent hyponatremia. Suspected secondary to acute pulmonary condition. Status: Acute (8) Bilateral conjunctivitis: Olopatadine. Resp viral panel as above. Status: Acute (9) Metabolic acidosis: Bicarb up to 18, anion gap down to 17.8. Delta gap ratio suggestive of hyperchloremic normal gap acidosis. Lactic acidosis, ketoacidosis had resolved. Status: Acute (10) Hyperglycemia: Lantus. Sliding scale insulin. Hold OHA. Status: Acute (11) Hypertensive urgency: Resolved. Present have episodic hypertension, possibly worsened by her discomfort overall. Continue home antihypertensives, including amlodipine, losartan, metoprolol. Treat underlying conditions. Monitor blood pressures. 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 Follow up w Dr Perez as previously arranged. 16 x 16 mm. Differential includes benign and malignant etiologies. Small bowel adenoma, GIST tumor, hematoma or adenocarcinoma should be considered. Status: Acute (13) DKA (diabetic ketoacidosis): Resolved. Continue subcutaneous insulin. Status: Acute Additional A&P Information Hypertension: Goal blood pressure less than 140/90 mmHg. Continue with home dose of amlodipine, losartan. Switch metoprolol to Coreg 25 mg twice daily. If blood pressure still elevated will add hydralazine. Check echocardiogram. Limited resuscitation. GI soft diet. Lovenox for DVT prophylaxis. Famotidine for PUD prophylaxis. Plan for day: Continue with IV antibiotics. CT with contrast to rule out hilar mass. Better blood pressure control. Switch metoprolol to Coreg. IV Lasix. Check echocardiogram. Oxygen supplementation keeping saturation over 90%. Attestations Medical Necessity Statement*: Requires further hospitalization for management of hypoxia secondary pneumonia, uncontrolled hypertension, recent diagnosis of small bowel mass, bilateral conjunctivitis, otitis externa Time Spent in Patient Care: Greater than 35 minutes (>than 50% of time spent in counselling and/or direct pt care on unit). 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
[2021-02-28] MEDS: hyDRALAzine 20 mg/mL INJ 1 mL 5 MG IVP (17:55)
[2021-02-28] MEDS: FUROsemide 10 mg/mL SDV 4mL 40 MG IVP (18:00)
[2021-02-28 21:01] LABS: Glucose Point of Care 104 mg/dL (70-110)
[2021-02-28 21:01] LABS: Glucose Point of Care 127 mg/dL (70-110)
[2021-02-28] MEDS: enoxaparin 40 mg/0.4 mL Syringe SUBCUT (21:57)
[2021-02-28] MEDS: carvedilol 25 mg Tablet PO (21:57)
[2021-02-28 23:23] LABS: Vancomycin Trough 14.8 ug/mL (10-15)
[2021-03-01] VITALS (13 sets, daily range): BP systolic 157–165; BP diastolic 73–84; PULSE 66–90; RESP 16–22; TEMP 36.4–36.9; O2SAT 90–97
[2021-03-01] MEDS: piperacillin-tazobactam 3.375 GM in sodium chloride 0.9% (plus) 50 ML IV ×3 (05:19→21:21)
[2021-03-01] MEDS: clopidogrel 75 mg Tablet PO (05:20)
[2021-03-01] MEDS: losartan 50 mg Tablet 100 MG PO (05:20)
[2021-03-01] MEDS: acetaminophen 325 mg Tablet 650 MG PO (05:20)
[2021-03-01] MEDS: amlodipine 10 mg Tablet PO (05:20)
[2021-03-01] MEDS: aspirin 81 mg EC Tablet PO (05:20)
[2021-03-01 06:27] LABS: Basophils # 0.1 10^3/uL (0.0-0.1); Basophils % 0.7 %; Eosinophils # 0.2 10^3/uL (0.0-0.8); Eosinophils % 2.7 %; Hematocrit 37.2 % (37.0-47.0); Hemoglobin 12.5 g/dL (11.5-15.3); Lymphocytes % 10.7 %; Mean Corpuscular HGB Conc 33.6 g/dL (30.0-36.0); Mean Corpuscular Hemoglobin 29.6 pg (28.0-34.0); Mean Corpuscular Volume 87.9 fl (81-99); Mean Platelet Volume 10.1 fL (7.4-10.4); Monocytes # 0.6 10^3/uL (0.2-0.9); Monocytes % 6.9 %; Neutrophils # 6.96 10^3/uL (1.8-7.7); Neutrophils % 77.2 %; Nucleated Red Blood Cells % 0 %; Platelet Count 314 10^3/cmm (130-400); Red Blood Count 4.23 10^6/uL (4.1-5.3); Red Cell Distribution Width 13.2 % (12.1-15.1)
[2021-03-01 06:35] LABS: Glucose Point of Care 128 mg/dL (70-110)
[2021-03-01 06:45] LABS: Alanine Aminotransferase < 5 U/L (0-33); Albumin Level 2.6 g/dL (3.5-5.2); Alkaline Phosphatase 74 IU/L (35-105); Anion Gap 17.2 (5-19); Aspartate Amino Transferase 7 U/L (0-32); Blood Urea Nitrogen 10 mg/dL (8-23); Calcium 7.8 mg/dL (8.5-10.5); Carbon Dioxide 24 mmol/L (22-29); Chloride 105 mmol/L (98-107); Globulin 3.2 g/dL (1.3-4.6); Glomerular Filtration Rate 71.1 mL/min (90-130); Glucose 124 mg/dL (65-115); Osmolality Calculated 296 mOsm/kg (285-295); Potassium 3.2 mmol/L (3.5-5.1); Sodium 143 mmol/L (136-145); Total Bilirubin 0.2 mg/dL (0.15-1.2); Total Protein 5.8 g/dL (6.6-8.7)
[2021-03-01] MEDS: olopatadine 0.1% Op Soln 5 mL Btl 1 DROP EYE-BOTH ×2 (08:39→17:44)
[2021-03-01] MEDS: carvedilol 25 mg Tablet PO ×2 (08:39→21:21)
[2021-03-01] MEDS: famotidine 20 mg Tablet PO ×2 (08:39→17:44)
[2021-03-01] MEDS: vancomycin 750 MG in sodium chloride 0.9% 250 ML 250 MG IV ×2 (08:40→21:25)
[2021-03-01] MEDS: insulin glargine 100 units/1 mL 35 UNIT SUBCUT (08:41)
[2021-03-01] MEDS: ipratropium-albuterol 3 mL Neb INHALATION ×2 (09:31→16:14)
[2021-03-01 11:01] LABS: Glucose Point of Care 203 mg/dL (70-110)
[2021-03-01] MEDS: insulin lispro 100 unit/1 mL SUBCUT ×3 (13:06→21:25)
[2021-03-01] MEDS: chlorthalidone 25 mg Tablet PO (13:26)
--- NOTE | 2021-03-01 15:47 | PM.PN ---
Subjective Subjective: Interval history: No complaints overnight. Has remained hemodynamically stable and afebrile. Blood pressure is better but still elevated. Requiring 3 L oxygen supplementation saturating 94%. Looks tachypneic on examination. Extremely hard of hearing. Week. Seen with OT in room. Able to have conversation but getting mildly short of breath. Vitals/I&O/Wt Last Vital Signs Temp 98.4 F 03/01/21 15:42 Pulse 67 03/01/21 15:42 Resp 17 03/01/21 15:42 BP 157/74 03/01/21 15:42 Pulse Ox 93 03/01/21 15:42 03/01/21 03/01/21 03/01/21 06:59 14:59 22:59 Intake Total 250 / 1560.0 980 / 980 Balance 250 / 1560.0 980 / 980 Physical Exam Const: COMMON NORMALS: no acute distress, patient oriented x3 and alert (More alert and interactive today) GENERAL APPEARANCE: cooperative NUTRITIONAL APPEARANCE: overweight ORIENTATION/CONSCIOUSNESS: Yes awake OTHER: Sitting up in bed, tachypneic, extremely hard of hearing HENMT: COMMON NORMALS: oropharynx normal EXTERNAL AUDITORY CANAL: Abnormal EAC present EAC laterality: bilateral erythema, edema and otic discharge TYMPANIC MEMBRANE: TM abnormal TM laterality: bilateral dull, wth effusion, with fluid behind the TM (R), perforated (visualized L) and scarred Eye: CONJUNCTIVA: Yes conjunctival abnormal positive bilateral conjunctival injection and discharge Neck/C-Spine: COMMON NORMALS: no JVD Resp: COMMON NORMALS: normal respiratory effort and clear to auscultation bilaterally AUSCULTATION: clear to auscultation bilaterally Cardio: COMMON NORMALS: no JVD, regular rhythm, S1 normal heart sound present, S2 normal heart sound present and No murmurs present (Cardio) RHYTHM: regular rhythm HEART SOUNDS: S1 normal heart sound present and S2 normal heart sound present GI: COMMON NORMALS: Normal to inspection, nondistended, normoactive bowel sounds present, Soft to palpation and non-tender PALPATION: Yes Soft to palpation Extremity: COMMON NORMALS: no joint enlargement and no pedal edema Neuro: COMMON NORMALS: patient oriented x3 and moves all extremities SENSORIUM/ORIENTATION: Yes alert (More alert and interactive today) Skin: COMMON NORMALS: no rashes or lesions noted GENERAL SKIN EXAM: no rashes or lesions noted Data : 03/01/21 05:16 03/01/21 05:16 Micro: Microbiology 02/25/21 01:28 Gram Stain - Final Ear - Right Wound Culture - Final A&P Assessment and plan (1) Hypoxia: Likely secondary to pneumonia. Given elevated blood pressures cannot rule out mild congestive heart failure. Echocardiogram results shows an EF of 64% with grade 1 diastolic dysfunction, mild pulmonary hypertension with PASP of 41 mmHg, trace MR. Oxygen supplementation keeping saturation over 88%. IV Lasix 40 mg once. Strict input charting, daily weights. Replace potassium Status: Acute (2) Sepsis: Sepsis is resolving. Left upper lobe pneumonia. Productive cough. Cannot rule out obstructive pneumonia. Rapid flu and COVID-19 PCR negative. With other symptoms including bilateral otitis media, conjunctivitis, possible viral infection. Status: Acute (3) Pneumonia: CT results appreciated. Blood cultures so far negative. Sputum culture respiratory valarie. Urine Legionella, bacterial antigen negative. MRSA swab. Respiratory viral panel sent and results awaited. Urine Legionella, bacterial antigen negative. For now continue with vancomycin and Zosyn. We will continue to finish a 5 to 7 day course. COVID-19 PCR negative. Remove isolation precautions. Status: Acute (4) Left otitis media with spontaneous rupture of eardrum: Gram-positive cocci on culture. IV antibiotics as above. Ciprodex. Bilateral otitis media, external, with left TM perforation, bilateral drainage. 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 Follow up w ENT Status: Acute (5) Acute right otitis media: Status: Acute (6) Otitis externa: BL Ciprodex Status: Acute (7) Hyponatremia: Better. But some persistent hyponatremia. Suspected secondary to acute pulmonary condition. Status: Acute (8) Bilateral conjunctivitis: Olopatadine. Resp viral panel as above. Status: Acute (9) Metabolic acidosis: Bicarb up to 18, anion gap down to 17.8. Delta gap ratio suggestive of hyperchloremic normal gap acidosis. Lactic acidosis, ketoacidosis had resolved. Status: Acute (10) Hyperglycemia: Lantus. Sliding scale insulin. Hold OHA. Status: Acute (11) Hypertensive urgency: Resolved. Present have episodic hypertension, possibly worsened by her discomfort overall. Continue home antihypertensives, including amlodipine, losartan, metoprolol. Treat underlying conditions. Monitor blood pressures. 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 Follow up w Dr Perez as previously arranged. 16 x 16 mm. Differential includes benign and malignant etiologies. Small bowel adenoma, GIST tumor, hematoma or adenocarcinoma should be considered. Status: Acute (13) DKA (diabetic ketoacidosis): Resolved. Continue subcutaneous insulin. Status: Acute Additional A&P Information Hypertension: Goal blood pressure less than 140/90 mmHg. Continue with home dose of amlodipine, losartan, Coreg. Add chlorthalidone 25 mg daily. Hydralazine as needed. Limited resuscitation. GI soft diet. Lovenox for DVT prophylaxis. Famotidine for PUD prophylaxis. Discharge planning: Discussed in detail with patient. Discussed given her deconditioning, extensive pneumonia and bilateral otitis media leading to considerable hearing loss patient would do better with placement to SNF for few weeks and rehabitation. Patient verbalized understanding and is agreeable for SNF placement for now. Case management alerted. SNF placement. Attestations Medical Necessity Statement*: Requires further hospitalization for management of severe hypoxia secondary to pneumonia, congestive diastolic heart failure, bilateral otitis media while safe discharge planning is sought. Time Spent in Patient Care: Greater than 35 minutes (>than 50% of time spent in counselling and/or direct pt care on unit). 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
[2021-03-01] MEDS: potassium chloride ER 20 mEq Tablet 40 MEQ PO (16:21)
[2021-03-01] MEDS: FUROsemide 10 mg/mL SDV 4mL 40 MG IVP (16:21)
[2021-03-01 16:49] LABS: Glucose Point of Care 185 mg/dL (70-110)
--- NOTE | 2021-03-01 17:47 | USCV_ITS ---
Rene Lady Age: 70 Gender: F : 1950 Exam Date: 03/01/2021 06:06 Ordering Phys: Troy Gayle MD Technologist: Susana Denise Exam Location: [facility] [place] Indication: HTN URGENCY, POSS HEART FAILURE BP: 158 / 84 HR: 65 Rhythm: Sinus Technical Quality: Adequate MEASUREMENTS (Male / Female) Normal Values 2D ECHO LV Diastolic Diameter PLAX 5.1 cm 4.2 - 5.9 / 3.9 - 5.3 cm LV Systolic Diameter PLAX 3.4 cm IVS Diastolic Thickness 1.4 cm 0.6 - 1.0 / 0.6 - 0.9 cm IVS Systolic Thickness 1.9 cm LVPW Diastolic Thickness 1.6 cm 0.6 - 1.0 / 0.6 - 0.9 cm LVPW Systolic Thickness 1.9 cm LVOT Diameter 2.0 cm LV Ejection Fraction 2D Teich 60.9 % LV Ejection Fraction MOD 2C 66.3 % LV Ejection Fraction 2C AL 67.2 % LA Diameter 2.9 cm LA Width 3.3 cm LA Height 4.0 cm RA Width 3.5 cm RA Height 4.2 cm Aorta at Sinotubular Diameter 1.8 cm M-MODE Aortic Annulus Diameter 2.7 cm LA Ao Ratio MM 1.0 MV E Point Septal Separation 0.7 cm DOPPLER AV Peak Velocity 225.5 cm/s LVOT Peak Velocity 100.0 cm/s AV Area Cont Eq vti 1.5 cm squared AV Area Cont Eq pk 1.4 cm squared MV Peak Velocity 120.0 cm/s MV Area PHT 3.1 cm squared Mitral E to A Ratio 1.0 MV E' Velocity 58.0 cm/s Mitral E to MV E' Ratio 17.2 Mitral E to LV E' Lateral Ratio 18.1 Mitral E to LV E' Septal Ratio 16.7 TR Peak Velocity 306.4 cm/s TR Peak Gradient 37.6 mmHg TR Mean Velocity 254.5 cm/s TR Mean Gradient 26.8 mmHg TR Velocity Time Integral 97.5 cm TV Peak E Velocity 55.0 cm/s Right Atrial Pressure 3.0 mmHg Pulmonary Artery Systolic Pressu 40.6 mmHg PV Peak Velocity 126.0 cm/s RV Acceleration Time 0.1 s RV Ejection Time 0.3 s RV AcT/ET 0.4 FINDINGS Left Ventricle Normal left ventricular size and systolic function, EF 64 %. Moderate left ventricular hypertrophy. Grade I/IV diastolic dysfunction (abnormal relaxation filling pattern), normal to mildly elevated filling pressures. Right Ventricle The right ventricle is normal in size and function. Right Atrium The right atrium is normal in size. Left Atrium The left atrium is normal in size. Mitral Valve Mild mitral annular calcification. Trace mitral valve regurgitation. Aortic Valve Aortic valve sclerosis. Tricuspid Valve No gross abnormalities noted.trace tricuspid valve regurgitation. Estimated pulmonary artery peak systolic pressure of 41 mmHg Pulmonic Valve Pulmonic valve not well visualized. Pericardium Trivial pericardial effusion. Aorta Normal ascending aorta dimension. CONCLUSIONS Normal left ventricular size and systolic function, EF 64 %. Moderate left ventricular hypertrophy. Grade I/IV diastolic dysfunction (abnormal relaxation filling pattern), normal to mildly elevated filling pressures. Mild mitral annular calcification. Trace mitral valve regurgitation. Mild pulmonary hypertension with an estimated pulmonary artery peak systolic pressure of 41 mmHg Features of aortic valve sclerosis. There is no pericardial effusion. There are no intracardiac masses. Compared to the study from 06/07/2018, the pulmonary hypertension appears to be new Dr Mckinley Stark MD [facility] (Electronically Signed) Final Date: 01 March 2021 10:00 S
[2021-03-01 21:15] LABS: Glucose Point of Care 184 mg/dL (70-110)
[2021-03-01] MEDS: enoxaparin 40 mg/0.4 mL Syringe SUBCUT (23:13)
[2021-03-02] VITALS (9 sets, daily range): BP systolic 123–177; BP diastolic 49–88; PULSE 61–67; RESP 16–23; TEMP 36.4–36.9; O2SAT 91–98
[2021-03-02] MEDS: piperacillin-tazobactam 3.375 GM in sodium chloride 0.9% (plus) 50 ML IV ×3 (05:02→21:15)
[2021-03-02] MEDS: losartan 50 mg Tablet 100 MG PO (06:36)
[2021-03-02] MEDS: aspirin 81 mg EC Tablet PO (06:37)
[2021-03-02] MEDS: clopidogrel 75 mg Tablet PO (06:37)
[2021-03-02] MEDS: amlodipine 10 mg Tablet PO (06:37)
[2021-03-02 06:53] LABS: Glucose Point of Care 98 mg/dL (70-110)
[2021-03-02] MEDS: olopatadine 0.1% Op Soln 5 mL Btl 1 DROP EYE-BOTH ×2 (08:08→17:28)
[2021-03-02] MEDS: insulin glargine 100 units/1 mL 35 UNIT SUBCUT (08:08)
[2021-03-02] MEDS: famotidine 20 mg Tablet PO ×2 (08:08→17:28)
[2021-03-02] MEDS: chlorthalidone 25 mg Tablet PO (08:08)
[2021-03-02] MEDS: carvedilol 25 mg Tablet PO ×2 (08:08→21:18)
[2021-03-02 08:36] LABS: Basophils % 0.5 %; Eosinophils # 0.2 10^3/uL (0.0-0.8); Eosinophils % 2.4 %; Hematocrit 37.4 % (37.0-47.0); Hemoglobin 12.5 g/dL (11.5-15.3); Lymphocytes # 1.3 10^3/uL (0.8-4.8); Lymphocytes % 14.8 %; Mean Corpuscular HGB Conc 33.4 g/dL (30.0-36.0); Mean Corpuscular Hemoglobin 28.7 pg (28.0-34.0); Mean Platelet Volume 10.5 fL (7.4-10.4); Monocytes # 0.5 10^3/uL (0.2-0.9); Monocytes % 6.1 %; Neutrophils # 6.47 10^3/uL (1.8-7.7); Neutrophils % 74.7 %; Nucleated Red Blood Cells % 0 %; Platelet Count 352 10^3/cmm (130-400); Red Blood Count 4.35 10^6/uL (4.1-5.3); Red Cell Distribution Width 12.8 % (12.1-15.1); White Blood Count 8.7 10^3/uL (4.0-10.0)
[2021-03-02 08:44] LABS: Alanine Aminotransferase < 5 U/L (0-33); Alkaline Phosphatase 71 IU/L (35-105); Anion Gap 19.1 (5-19); Aspartate Amino Transferase 7 U/L (0-32); Blood Urea Nitrogen 10 mg/dL (8-23); Calcium 8.4 mg/dL (8.5-10.5); Carbon Dioxide 26 mmol/L (22-29); Chloride 101 mmol/L (98-107); Creatinine Clr Calc Pharmacy 68.5196; Globulin 3.1 g/dL (1.3-4.6); Glomerular Filtration Rate 62.1 mL/min (90-130); Glucose 96 mg/dL (65-115); Osmolality Calculated 295 mOsm/kg (285-295); Potassium 3.1 mmol/L (3.5-5.1); Sodium 143 mmol/L (136-145); Total Bilirubin 0.2 mg/dL (0.15-1.2); Total Protein 6.1 g/dL (6.6-8.7)
[2021-03-02] MEDS: vancomycin 750 MG in sodium chloride 0.9% 250 ML 250 MG IV ×2 (08:46→22:04)
[2021-03-02] MEDS: potassium chloride ER 20 mEq Tablet 40 MEQ PO (10:00)
[2021-03-02] MEDS: insulin lispro 100 unit/1 mL SUBCUT ×3 (12:11→21:18)
[2021-03-02 12:26] LABS: Glucose Point of Care 179 mg/dL (70-110)
--- NOTE | 2021-03-02 13:51 | P.PN_ITS ---
Subjective Subjective: Interval history: PleaseNo acute events overnight. Patient remains on 2 L oxygen supplementation. A lot more awake and alert today morning. Still hard of hearing. Looks a lot more comfortable today. Having her food during examination. Not tachypneic. On examination patient was on room air and was comfortable saturating 88 to 90%. Vitals/I&O/Wt Last Vital Signs Temp 98.2 F 03/02/21 11:39 Pulse 62 03/02/21 11:39 Resp 17 03/02/21 11:39 BP 160/88 03/02/21 11:39 Pulse Ox 98 03/02/21 11:39 03/01/21 03/02/21 03/02/21 22:59 06:59 14:59 Intake Total 290 / 1270 300 / 1570 538.333 / 538.333 Balance 290 / 1270 300 / 1570 538.333 / 538.333 Physical Exam Const: COMMON NORMALS: no acute distress, patient oriented x3 and alert (More alert and interactive today) GENERAL APPEARANCE: cooperative NUTRITIONAL APPEARANCE: overweight ORIENTATION/CONSCIOUSNESS: Yes awake OTHER: Sitting up in bed, tachypneic, extremely hard of hearing HENMT: COMMON NORMALS: oropharynx normal EXTERNAL AUDITORY CANAL: Abnormal EAC present EAC laterality: bilateral erythema, edema and otic discharge TYMPANIC MEMBRANE: TM abnormal TM laterality: bilateral dull, wth effusion, with fluid behind the TM (R), perforated (visualized L) and scarred Eye: CONJUNCTIVA: Yes conjunctival abnormal positive bilateral conjunctival injection and discharge Neck/C-Spine: COMMON NORMALS: no JVD Resp: COMMON NORMALS: normal respiratory effort and clear to auscultation bilaterally AUSCULTATION: clear to auscultation bilaterally Cardio: COMMON NORMALS: no JVD, regular rhythm, S1 normal heart sound present, S2 normal heart sound present and No murmurs present (Cardio) RHYTHM: regular rhythm HEART SOUNDS: S1 normal heart sound present and S2 normal heart sound present GI: COMMON NORMALS: Normal to inspection, nondistended, normoactive bowel so unds present, Soft to palpation and non-tender PALPATION: Yes Soft to palpation Extremity: COMMON NORMALS: no joint enlargement and no pedal edema Neuro: COMMON NORMALS: patient oriented x3 and moves all extremities SENSORIUM/ORIENTATION: Yes alert (More alert and interactive today) Skin: COMMON NORMALS: no rashes or lesions noted GENERAL SKIN EXAM: no rashes or lesions noted Data : 03/02/21 07:44 03/02/21 07:44 Micro: Microbiology 02/24/21 16:34 Blood Culture - Final Blood NO GROWTH AFTER 5 DAYS 02/24/21 16:37 Blood Culture - Final Blood NO GROWTH AFTER 5 DAYS A&P Assessment and plan (1) Hypoxia: Likely secondary to pneumonia. Given elevated blood pressures cannot rule out mild congestive heart failure. Echocardiogram results shows an EF of 64% with grade 1 diastolic dysfunction, mild pulmonary hypertension with PASP of 41 mmHg, trace MR. Oxygen supplementation keeping saturation over 88%. Fluid restriction up to 1500 cc. Continue with chlorthalidone. Strict input charting, daily weights. Replace potassium Status: Acute (2) Sepsis: Sepsis is resolved. Secondary to pneumonia, UTI along with otitis media Left upper lobe pneumonia. Productive cough. Cannot rule out obstructive pneumonia. Rapid flu and COVID-19 PCR negative. With other symptoms including bilateral otitis media, conjunctivitis, possible viral infection. Status: Acute (3) Pneumonia: CT results appreciated. Blood cultures so far negative. Sputum culture respiratory valarie. Urine Legionella, bacterial antigen negative. MRSA swab. Respiratory viral panel sent and results awaited. Urine Legionella, bacterial antigen negative. For now continue with vancomycin and Zosyn. We will continue to finish a 5 to 7 day course. On discharge and transition over to oral antibiotics with Doxy and Levaquin COVID-19 PCR negative. Remove isolation precautions. Status: Acute (4) Left otitis media with spontaneous rupture of eardrum: Gram-positive cocci on culture. IV antibiotics as above. Ciprodex. Bilateral otitis media, external, with left TM perforation, bilateral drainage. 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 Follow up w ENT Status: Acute (5) Acute right otitis media: Status: Inactive (6) Otitis externa: BL Ciprodex Status: Acute (7) Hyponatremia: Better. But some persistent hyponatremia. Suspected secondary to acute pulmonary condition. Status: Acute (8) Bilateral conjunctivitis: Olopatadine. Resp viral panel as above. Status: Acute (9) Metabolic acidosis: Bicarb up to 18, anion gap down to 17.8. Delta gap ratio suggestive of hyperchloremic normal gap acidosis. Lactic acidosis, ketoacidosis had resolved. Status: Acute (10) Hyperglycemia: Lantus. Sliding scale insulin. Hold OHA. Status: Acute (11) Hypertensive urgency: Resolved. Present have episodic hypertension, possibly worsened by her discomfort overall. Continue home antihypertensives, including amlodipine, losartan, metoprolol. Treat underlying conditions. Monitor blood pressures. 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 Follow up w Dr Perez as previously arranged. 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 Differential includes benign and malignant etiologies. Small bowel adenoma, GIST tumor, hematoma or adenocarcinoma should be considered. Status: Inactive (13) DKA (diabetic ketoacidosis): Resolved. Continue subcutaneous insulin. Status: Acute Additional A&P Information Hypertension: Goal blood pressure less than 140/90 mmHg. Blood pressure is better but still mildly elevated. For now continue with home dose of amlodipine, losartan, continue with newly added Coreg and chlorthalidone. Hydralazine as needed. Limited resuscitation. GI soft diet. Lovenox for DVT prophylaxis. Famotidine for PUD prophylaxis. Discharge planning: Discussed in detail with patient. Discussed given her deconditioning, extensive pneumonia and bilateral otitis media leading to considerable hearing loss patient would do better with placement to SNF for few weeks and rehabitation. Patient verbalized understanding and is agreeable for SNF placement for now. Case management alerted. SNF placement. Attestations Medical Necessity Statement*: Requested hospitalization for management of sepsis secondary to pneumonia, bilateral otitis media while safe discharge planning is sought. Time Spent in Patient Care: Greater than 35 minutes (>than 50% of time spent in counselling and/or direct pt care on unit) . Coding Level of Care Code Acute Manager Hotel for [facility] Julio César Diagnoses Hypoxia R09.02 Sepsis A41.9 Pneumonia J18.9 Left otitis media with spontaneous rupture of eardrum H66.92; H72.92 Acute right otitis media H66.91 Otitis externa H60.90 Hyponatremia E87.1 Bilateral conjunctivitis H10.9 Metabolic acidosis E87.2 Hyperglycemia R73.9 Hypertensive urgency I16.0 Small bowel mass K63.89 DKA (diabetic ketoacidosis) E11.10
[2021-03-02 16:51] LABS: Glucose Point of Care 209 mg/dL (70-110)
[2021-03-02 20:59] LABS: Glucose Point of Care 295 mg/dL (70-110)
[2021-03-02] MEDS: enoxaparin 40 mg/0.4 mL Syringe SUBCUT (21:18)
[2021-03-03] VITALS (9 sets, daily range): BP systolic 148–173; BP diastolic 68–79; PULSE 59–68; RESP 16–20; TEMP 36.5–37.1; O2SAT 92–98
[2021-03-03] MEDS: piperacillin-tazobactam 3.375 GM in sodium chloride 0.9% (plus) 50 ML IV ×3 (03:20→20:03)
[2021-03-03] MEDS: amlodipine 10 mg Tablet PO (05:06)
[2021-03-03] MEDS: losartan 50 mg Tablet 100 MG PO (05:06)
[2021-03-03] MEDS: clopidogrel 75 mg Tablet PO (05:06)
[2021-03-03] MEDS: aspirin 81 mg EC Tablet PO (05:06)
[2021-03-03 06:47] LABS: Glucose Point of Care 172 mg/dL (70-110)
[2021-03-03] MEDS: famotidine 20 mg Tablet PO ×2 (08:17→18:13)
[2021-03-03] MEDS: insulin lispro 100 unit/1 mL SUBCUT ×4 (08:17→21:10)
[2021-03-03] MEDS: insulin glargine 100 units/1 mL 35 UNIT SUBCUT (08:17)
[2021-03-03] MEDS: carvedilol 25 mg Tablet PO ×2 (08:17→20:27)
[2021-03-03] MEDS: olopatadine 0.1% Op Soln 5 mL Btl 1 DROP EYE-BOTH ×2 (08:17→18:13)
[2021-03-03] MEDS: chlorthalidone 25 mg Tablet PO (08:17)
[2021-03-03] MEDS: vancomycin 750 MG in sodium chloride 0.9% 250 ML 250 MG IV ×2 (10:09→22:21)
[2021-03-03 11:53] LABS: Glucose Point of Care 320 mg/dL (70-110)
[2021-03-03] MEDS: hyDRALAzine 25 mg Tablet PO ×3 (12:12→20:27)
--- NOTE | 2021-03-03 16:00 | P.PN_ITS ---
Subjective Subjective: Interval history: No current overnight. Has remained hemodynamically stable and afebrile. Looking more comfortable. On examination lying comfortably in bed. Denies any nausea, vomiting, headache. Working with physical therapy. Vitals/I&O/Wt Last Vital Signs Temp 97.9 F 03/03/21 15:27 Pulse 62 03/03/21 15:27 Resp 16 03/03/21 15:27 BP 173/79 03/03/21 15:27 Pulse Ox 94 03/03/21 15:27 03/03/21 03/03/21 03/03/21 06:59 14:59 22:59 Intake Total 300 / 0592.617 8763 / 1280 Output Total 300 / 1230 Balance 0 / 313.207 9981 / 1280 Physical Exam Const: COMMON NORMALS: no acute distress, patient oriented x3 and alert (More alert and interactive today) GENERAL APPEARANCE: cooperative NUTRITIONAL APPEARANCE: overweight ORIENTATION/CONSCIOUSNESS: Yes awake OTHER: Sitting up in bed, tachypneic, extremely hard of hearing HENMT: COMMON NORMALS: oropharynx normal EXTERNAL AUDITORY CANAL: Abnormal EAC present EAC laterality: bilateral erythema, edema and otic discharge TYMPANIC MEMBRANE: TM abnormal TM laterality: bilateral dull, wth effusion, with fluid behind the TM (R), perforated (visualized L) and scarred Eye: CONJUNCTIVA: Yes conjunctival abnormal positive bilateral conjunctival injection and discharge Neck/C-Spine: COMMON NORMALS: no JVD Resp: COMMON NORMALS: normal respiratory effort and clear to auscultation bilaterally AUSCULTATION: clear to auscultation bilaterally Cardio: COMMON NORMALS: no JVD, regular rhythm, S1 normal heart sound present, S2 normal heart sound present and No murmurs present (Cardio) RHYTHM: regular rhythm HEART SOUNDS: S1 normal heart sound present and S2 normal heart sound present GI: COMMON NORMALS: Normal to inspection, nondistended, normoactive bowel sounds present, Soft to palpation and non-tender PALPATION: Yes Soft to palpation Extremity: COMMON NORMALS: no joint enlargement and no pedal edema Neuro: COMMON NORMALS: patient oriented x3 and moves all extremities SENSORIUM/ORIENTATION: Yes alert (More alert and interactive today) Skin: COMMON NORMALS: no rashes or lesions noted GENERAL SKIN EXAM: no rashes or lesions noted Data : 03/02/21 07:44 03/02/21 07:44 Micro: Microbiology 03/01/21 16:49 MRSA Culture - Final Nose A&P Assessment and plan (1) Hypoxia: Likely secondary to pneumonia. Given elevated blood pressures cannot rule out mild congestive heart failure. Echocardiogram results shows an EF of 64% with grade 1 diastolic dysfunction, mild pulmonary hypertension with PASP of 41 mmHg, trace MR. Oxygen supplementation keeping saturation over 88%. Fluid restriction up to 1500 cc. Continue with chlorthalidone. Strict input charting, daily weights. Replace potassium Status: Acute (2) Sepsis: Sepsis is resolved. Secondary to pneumonia, UTI along with otitis media Left upper lobe pneumonia. Productive cough. Cannot rule out obstructive pneumonia. Rapid flu and COVID-19 PCR negative. With other symptoms including bilateral otitis media, conjunctivitis, possible viral infection. Status: Acute (3) Pneumonia: CT results appreciated. Blood cultures so far negative. Sputum culture respiratory valarie. Urine Legio noemi, bacterial antigen negative. MRSA swab. Respiratory viral panel sent and results awaited. Urine Legionella, bacterial antigen negative. For now continue with vancomycin and Zosyn. We will continue to finish a 5 to 7 day course. Last day of antibiotics on 03/04. COVID-19 PCR negative. Remove isolation precautions. Status: Acute (4) Left otitis media with spontaneous rupture of eardrum: Gram-positive cocci on culture. IV antibiotics as above. Ciprodex. Bilateral otitis media, external, with left TM perforation, bilateral drainage. 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 Follow up w ENT Status: Acute (5) Acute right otitis media: Status: Inactive (6) Otitis externa: BL Ciprodex Status: Acute (7) Hyponatremia: Better. But some persistent hyponatremia. Suspected secondary to acute pulmonary condition. Status: Acute (8) Bilateral conjunctivitis: Olopatadine. Resp viral panel as above. Status: Acute (9) Metabolic acidosis: Bicarb up to 18, anion gap down to 17.8. Delta gap ratio suggestive of hyperchloremic normal gap acidosis. Lactic acidosis, ketoacidosis had resolved. Status: Acute (10) Hyperglycemia: Lantus. Sliding scale insulin. Hold OHA. Status: Acute (11) Hypertensive urgency: Resolved. Present have episodic hypertension, possibly worsened by her discomfort overall. Continue home antihypertensives, including amlodipine, losartan, metoprolol. Treat underlying conditions. Monitor blood pressures. 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 Follow up w Dr Perez as previously arranged. 16 x 16 mm. Differential includes benign and malignant etiologies. Small bowel adenoma, GIST tumor, hematoma or adenocarcinoma should be considered. Status: Inactive (13) DKA (diabetic ketoacidosis): Resolved. Continue subcutaneous insulin. Status: Acute Additional A&P Information Hypertension: Goal blood pressure less than 140/90 mmHg. Blood pressure is better but still mildly elevated. For now continue with home dose of amlodi pine, losartan, continue with newly added Coreg and chlorthalidone. Start on hydralazine 25 mg 3 times daily. Limited resuscitation. GI soft diet. Lovenox for DVT prophylaxis. Famotidine for PUD prophylaxis. Discharge planning: Patient has been declined by multiple SNF in the area. Patient does not wish to be transferred to out of city. Discussed in detail with the patient. Patient physical capability improving with physical therapy. Plan to discharge home with continue in-home services on completion of antibiotic therapy. Attestations Medical Necessity Statement*: Requires further hospitalization for management of pneumonia, otitis bilateral media, uncontrolled hypertension while antibiotic course is finished and antihypertensives were adjusted and safe discharge planning is sought. Time Spent in Patient Care: Greater than 35 minutes (>than 50% of time spent in counselling and/or direct pt care on unit) . Coding Level of Care Code Acute Drawing Checker for [facility] Fwd Diagnoses Hypoxia R09.02 Sepsis A41.9 Pneumonia J18.9 Left otitis media with spontaneous rupture of eardrum H66.92; H72.92 Acute right otitis media H66.91 Otitis externa H60.90 Hyponatremia E87.1 Bilateral conjunctivitis H10.9 Metabolic acidosis E87.2 Hyperglycemia R73.9 Hypertensive urgency I16.0 Small bowel mass K63.89 DKA (diabetic ketoacidosis) E11.10
[2021-03-03 17:08] LABS: Glucose Point of Care 287 mg/dL (70-110)
[2021-03-03] MEDS: enoxaparin 40 mg/0.4 mL Syringe SUBCUT (21:09)
[2021-03-03 21:14] LABS: Glucose Point of Care 284 mg/dL (70-110)
[2021-03-03] MEDS: ondansetron 4 MG Tablet PO (23:32)
[2021-03-04] VITALS (8 sets, daily range): BP systolic 138–160; BP diastolic 71–85; PULSE 18–78; RESP 16–19; TEMP 36.4–37.1; O2SAT 88–97
[2021-03-04] MEDS: piperacillin-tazobactam 3.375 GM in sodium chloride 0.9% (plus) 50 ML IV (05:15)
[2021-03-04] MEDS: clopidogrel 75 mg Tablet PO (05:17)
[2021-03-04] MEDS: aspirin 81 mg EC Tablet PO (05:17)
[2021-03-04] MEDS: amlodipine 10 mg Tablet PO (05:17)
[2021-03-04] MEDS: losartan 50 mg Tablet 100 MG PO (05:17)
[2021-03-04 06:34] LABS: Basophils # 0.1 10^3/uL (0.0-0.1); Basophils % 0.7 %; Eosinophils # 0.4 10^3/uL (0.0-0.8); Eosinophils % 4.3 %; Hematocrit 35.1 % (37.0-47.0); Hemoglobin 11.6 g/dL (11.5-15.3); Lymphocytes # 1.6 10^3/uL (0.8-4.8); Lymphocytes % 16.5 %; Mean Corpuscular Hemoglobin 29.2 pg (28.0-34.0); Mean Corpuscular Volume 88.4 fl (81-99); Mean Platelet Volume 10.2 fL (7.4-10.4); Monocytes # 0.7 10^3/uL (0.2-0.9); Monocytes % 7.2 %; Neutrophils # 6.67 10^3/uL (1.8-7.7); Neutrophils % 70.2 %; Nucleated Red Blood Cells % 0 %; Platelet Count 303 10^3/cmm (130-400); Red Blood Count 3.97 10^6/uL (4.1-5.3); Red Cell Distribution Width 12.8 % (12.1-15.1); White Blood Count 9.5 10^3/uL (4.0-10.0)
[2021-03-04 06:58] LABS: Alanine Aminotransferase < 5 U/L (0-33); Albumin Level 2.9 g/dL (3.5-5.2); Alkaline Phosphatase 65 IU/L (35-105); Anion Gap 17.9 (5-19); Aspartate Amino Transferase 7 U/L (0-32); Blood Urea Nitrogen 11 mg/dL (8-23); Calcium 8.3 mg/dL (8.5-10.5); Carbon Dioxide 26 mmol/L (22-29); Chloride 98 mmol/L (98-107); Creatinine Clr Calc Pharmacy 68.5196; Glomerular Filtration Rate 62.1 mL/min (90-130); Glucose 130 mg/dL (65-115); Osmolality Calculated 289 mOsm/kg (285-295); Sodium 139 mmol/L (136-145); Total Bilirubin 0.2 mg/dL (0.15-1.2); Total Protein 5.9 g/dL (6.6-8.7)
[2021-03-04 07:03] LABS: Glucose Point of Care 139 mg/dL (70-110)
[2021-03-04 07:16] LABS: Potassium 2.9 mmol/L (3.5-5.1)
[2021-03-04] MEDS: insulin glargine 100 units/1 mL 35 UNIT SUBCUT (09:08)
[2021-03-04] MEDS: famotidine 20 mg Tablet PO (09:08)
[2021-03-04] MEDS: chlorthalidone 25 mg Tablet PO (09:08)
[2021-03-04] MEDS: potassium chloride ER 20 mEq Tablet 80 MEQ PO (09:08)
[2021-03-04] MEDS: hyDRALAzine 25 mg Tablet PO (09:08)
[2021-03-04] MEDS: olopatadine 0.1% Op Soln 5 mL Btl 1 DROP EYE-BOTH (09:09)
[2021-03-04] MEDS: vancomycin 750 MG in sodium chloride 0.9% 250 ML 250 MG IV (09:09)
[2021-03-04] MEDS: carvedilol 25 mg Tablet PO (09:12)
[2021-03-04 10:57] LABS: Glucose Point of Care 278 mg/dL (70-110)
--- NOTE | 2021-03-04 12:37 | P.DS_ITS ---
Discharge Providers Date of Admission: 02/24/21 18:09 Date of Discharge: March 04, 2021 Attending Provider at Admission: Zach Webb Attending Provider at Discharge: Troy Gayle MD Primary Care Provider: Matthew Geller DO Diagnoses at Discharge Discharge Diagnosis (1) Hypoxia: Status: Acute (2) Sepsis: Status: Acute (3) Pneumonia: Status: Acute (4) Left otitis media with spontaneous rupture of eardrum: Status: Acute (5) Acute right otitis media: Status: Inactive (6) Otitis externa: Status: Acute (7) Hyponatremia: Status: Acute (8) Bilateral conjunctivitis: Status: Acute (9) Metabolic acidosis: Status: Acute (10) Hyperglycemia: Status: Acute (11) Hypertensive urgency: Status: Acute (12) Small bowel mass: Status: Inactive (13) DKA (diabetic ketoacidosis): Status: Acute Reason for Visit Reason for Visit: GENERALIZED WEAKNESS Hospital Course Hospital Course History as per H&P. Pleasant 70-year-old lady who lives alone, returns to ER after a recent visit on 02/22, coming with complaint of abdominal pain over a week, with poor appetite also complaining of bilateral ear pain, small blood noted at EAM, reports her ears were bothering her for several days. Matting and discharge in left eye. Found to have bilateral otitis media, with spontaneous rupture of left TM. Was prescribed Augmentin, referred for follow-up to Dr. Ocampo, ENT and PCP. CT abdomen pelvis performed due to nausea, with noted intramural mass to her proximal jejunum, with small bowel follow-through ordered, but could not complete the entire study. Follow-up arranged with Dr. Perez in office. Appears weak and generally unwell, but declined to stay in the hospital, stating her neighbor would be checking on her. She returns to the hospital with progressive symptoms, with generalized weakness, malaise, productive cough of yellow/purulent appearing sputum, reports all symptoms started about 8 days ago. Generalized body aches. Ear pain is better, denies headache, however, has had drainage from both ears. Also more discharge from both eyes. She did not start the antibiotic course. On admission patient was found to be hypertensive, blood pressure 200/76, heart rate 100, respiratory rate 18, temperature 99 Fahrenheit, O2 saturation 94% on room air. WBC count 16.8. ABG 7.39/27.8/61.9/16.8. Sodium 129, chloride 88, bicarb 13, anion gap 32.5. BUN 15, creatinine 1.9, glucose 411. Lactic acid 2.5. Normal liver parameters. Troponin T 23-23.21. CRP 334.9. TSH 3.19. Rapid influenza and rapid COVID-19 antigens negative. Patient was admitted to the hospital for management of sepsis secondary to pneumonia, bilateral otitis media along with DKA. Patient was admitted initially to the ICU for management of DKA. She was started on broad-spectrum antibiotics. Patient had a slow recovery during hospitalization but has been on 2 L of oxygen supplementation saturating 95% with resolution of sepsis for last 3 to 4 days. She has been continued on IV vancomycin and Zosyn. Blood cultures so far have remained negative. Urine culture from day of admission showed E. coli. Gram stain from localized wound culture from right ear showed gram- positive cocci in clusters. CT chest was done which was concerning for a possible obstructive pneumonia for which CTA was done which ruled out any hilar mass. Patient has finished 7-day course of antibiotics today. Her hospitalization was complicated by difficult to control high blood pressure for which multiple antihypertensives were adjusted. Possible discharge planning patient was advised for discharge to SNF given her hard of hearing, physical deconditioning because of hospitalization. At first patient was agreeable but unfortunately was denied by multiple in the area SNF. Patient did not want to be transferred to outside area SNF and opted to be discharged home. Patient already has in-home services. Patient is to continue with current in-home services. Patient is been discharged in hemodynamically stable condition on oral Levaquin and Augmentin for 2 more days. She is advised to follow-up with ENT regarding bilateral otitis media. She is also advised to follow-up with general surgery for further work-up of possible small bowel mass with colonoscopy. Physical Exam Const: COMMON NORMALS: no acute distress, patient oriented x3 and alert (More alert and interactive today) GENERAL APPEARANCE: cooperative NUTRITIONAL APPEARANCE: overweight ORIENTATION/CONSCIOUSNESS: Yes awake OTHER: Sitting up in bed, tachypneic, extremely hard of hearing HENMT: COMMON NORMALS: oropharynx normal EXTERNAL AUDITORY CANAL: Abnormal EAC present EAC laterality: bilateral erythema, edema and otic discharge TYMPANIC MEMBRANE: TM abnormal TM laterality: bilateral dull, wth effusion, with fluid behind the TM (R), perforated (visualized L) and scarred Eye: CONJUNCTIVA: Yes conjunctival abnormal positive bilateral conjunctival injection and discharge Neck/C-Spine: COMMON NORMALS: no JVD Resp: COMMON NORMALS: normal respiratory effort and clear to auscultation bilaterally AUSCULTATION: clear to auscultation bilaterally Cardio: COMMON NORMALS: no JVD, regular rhythm, S1 normal heart sound present, S2 normal heart sound present and No murmurs present (Cardio) RHYTHM: regular rhythm HEART SOUNDS: S1 normal heart sound present and S2 normal heart sound present GI: COMMON NORMALS: Normal to inspection, nondistended, normoactive bowel sounds present, Soft to palpation and non-tender PALPATION: Yes Soft to palpation Extremity: COMMON NORMALS: no joint enlargement and no pedal edema Neuro: COMMON NORMALS: patient oriented x3 and moves all extremities SENSORIUM/ORIENTATION: Yes alert (More alert and interactive today) Skin: COMMON NORMALS: no rashes or lesions noted GENERAL SKIN EXAM: no rashes or lesions noted Discharge Data 2 Data Completed and Pending: Completed Studies During Hospitalization Category Date Time Status CT chest w con* [id number] Routine Cat Scan 02/28/21 11:[address] chest wo con 7 [id number] Routine Cat Scan 02/27/21 20:11 Completed XR chest 1V flores ble [id number] Routine Exams 02/27/21 06:00 Completed XR chest 1V flores ble [id number] Stat Exams 02/24/21 15:34 Completed CV. echo complete * [id number] Routine Ultrasound 03/01/21 17:47 Completed Pending at discharge Category Date Time Status Respiratory Viral Panel PCR Routine Lab 02/24/21 22:05 Ordered Sputum Culture an d Gram Stain Stat Lab 02/28/21 11:08 Uncollected Labs from last 24 hours 03/04/21 03/04/21 03/04/21 10:53 06:47 05:10 WBC RBC Hgb Hct MCV MCH MCHC RDW Plt Count MPV Neut % (Auto) Lymph % (Auto) [place] % (Auto) Eos % (Auto) Baso % (Auto) Neut # (Auto) Lymph # (Auto) [place] # (Auto) Eos # (Auto) Baso # (Auto) Nucleated RBC % (a uto) Nucleated RBCs # Sodium 139 Potassium 2.9 L Chloride 98 Carbon Dioxide 26 Anion Gap 17.9 BUN 11 Creatinine 0.9 GFR Calculation 62.1 L Glucose 130 H POC Glucose 278 H 139 H Calculated Osmolal ity 289 Calcium 8.3 L Total Bilirubin 0.2 AST 7 ALT < 5 Alkaline Phosphata se 65 Total Protein 5.9 L Albumin 2.9 L Globulin 3.0 03/04/21 03/03/21 03/03/21 05:10 20:57 16:46 WBC 9.5 RBC 3.97 L Hgb 11.6 Hct 35.1 L MCV 88.4 MCH 29.2 MCHC 33.0 RDW 12.8 Plt Count 303 MPV 10.2 Neut % (Auto) 70.2 Lymph % (Auto) 16.5 [place] % (Auto) 7.2 Eos % (Auto) 4.3 Baso % (Auto) 0.7 Neut # (Auto) 6.67 Lymph # (Auto) 1.6 [place] # (Auto) 0.7 Eos # (Auto) 0.4 Baso # (Auto) 0.1 Nucleated RBC % (a uto) 0 Nucleated RBCs # 0.0 Sodium Potassium Chloride Carbon Dioxide Anion Gap BUN Creatinine GFR Calculation Glucose POC Glucose 284 H 287 H Calculated Osmolal ity Calcium Total Bilirubin AST ALT Alkaline Phosphata se Total Protein Albumin Globulin Addt'l Data from Hospital Stay: Laboratory Results WBC 9.5 10^3/uL (4.0- 10.0) 03/04/21 05:10 RBC 3.97 10^6/uL (4.1 -5.3) L 03/04/21 05:10 Hgb 11.6 g/dL (11.5-1 5.3) 03/04/21 05:10 Hct 35.1 % (37.0-47.0 ) L 03/04/21 05:10 MCV 88.4 fl (81-99) 03/04/21 05:10 MCH 29.2 pg (28.0-34. 0) 03/04/21 05:10 MCHC 33.0 g/dL (30.0-3 6.0) 03/04/21 05:10 RDW 12.8 % (12.1-15.1 ) 03/04/21 05:10 Plt Count 303 10^3/cmm (130 -400) 03/04/21 05:10 MPV 10.2 fL (7.4-10.4 ) 03/04/21 05:10 Neut % (Auto) 70.2 % 03/04/21 05:10 Lymph % (Auto) 16.5 % 03/04/21 05:10 [place] % (Auto) 7.2 % 03/04/21 05:10 Eos % (Auto) 4.3 % 03/04/21 05:10 Baso % (Auto) 0.7 % 03/04/21 05:10 Neut # (Auto) 6.67 10^3/uL (1.8 -7.7) 03/04/21 05:10 Lymph # (Auto) 1.6 10^3/uL (0.8- 4.8) 03/04/21 05:10 [place] # (Auto) 0.7 10^3/uL (0.2- 0.9) 03/04/21 05:10 Eos # (Auto) 0.4 10^3/uL (0.0- 0.8) 03/04/21 05:10 Baso # (Auto) 0.1 10^3/uL (0.0- 0.1) 03/04/21 05:10 Nucleated RBC % (a uto) 0 % 03/04/21 05:10 Nucleated RBCs # 0.0 /100WBC 03/04/21 05:10 Specimen Type Arterial 02/24/21 15:55 Sample Site Brachial, left 02/24/21 15:55 ABG pH 7.39 (7.35-7.45) 02/24/21 15:55 ABG pCO2 27.8 mmHg (35-45) L 02/24/21 15:55 ABG pO2 61.9 mmHg (80.0-1 00.0) L 02/24/21 15:55 ABG HCO3 16.8 mmol/L (22-2 6) L 02/24/21 15:55 ABG Base Excess -6.7 mmol/L (-2.0 -2.0) L 02/24/21 15:55 Stephen Test N/a 02/24/21 15:55 Hematocrit 42.2 % (37-47) 02/24/21 15:55 O2 Delivery Device Room air 02/24/21 15:55 FiO2 21.0 % 02/24/21 15:55 Generator Man ID Amh 02/24/21 15:55 Sodium 139 mmol/L (136-1 45) 03/04/21 05:10 Potassium 2.9 mmol/L (3.5-5 .1) L 03/04/21 05:10 Chloride 98 mmol/L (98-107 ) 03/04/21 05:10 Carbon Dioxide 26 mmol/L (22-29) 03/04/21 05:10 Anion Gap 17.9 (5-19) 03/04/21 05:10 BUN 11 mg/dL (8-23) 03/04/21 05:10 Creatinine 0.9 mg/dL (0.5-0. 9) 03/04/21 05:10 GFR Calculation 62.1 mL/min (90-1 30) L 03/04/21 05:10 Glucose 130 mg/dL (65-115 ) H 03/04/21 05:10 POC Glucose 278 mg/dL (70-110 ) H 03/04/21 10:53 Estimat Average Gl ucose 263 02/25/21 04:35 Hemoglobin A1c 10.8 % (4.0-6.0) H 02/25/21 04:35 Calculated Osmolal ity 289 mOsm/kg (285- 295) 03/04/21 05:10 Lactic Acid 2.5 mmol/L (0.5-2 .2) H 02/24/21 16:37 Lactic Acid (Sepsi s) 1.9 mmol/L (0.5-2 .2) 02/24/21 20:26 Calcium 8.3 mg/dL (8.5-10 .5) L 03/04/21 05:10 Phosphorus 2.5 mg/dL (2.5-4. 5) 02/25/21 04:35 Magnesium 1.9 mg/dL (1.7-2. 3) 02/25/21 04:35 Total Bilirubin 0.2 mg/dL (0.15-1 .2) 03/04/21 05:10 AST 7 U/L (0-32) 03/04/21 05:10 ALT < 5 U/L (0-33) 03/04/21 05:10 Alkaline Phosphata se 65 IU/L (35-105) 03/04/21 05:10 Troponin T Baselin e 23 ng/L (0-10) H 02/24/21 15:21 Troponin T 120 Min [place] 23.21 ng/L (0-10) H 02/24/21 16:37 Delta Troponin T 0.21 ABS# (0-10) 02/24/21 16:37 Troponin T Hi Sens 6Hr 20.15 ng/L (0-10) H 02/24/21 21:00 Troponin T Hi Sens 6Hr Delta -2.85 ng/L (0-12) L 02/24/21 21:00 C-Reactive Protein 334.9 mg/L (0.0-4 .9) H 02/24/21 15:21 Total Protein 5.9 g/dL (6.6-8.7 ) L 03/04/21 05:10 Albumin 2.9 g/dL (3.5-5.2 ) L 03/04/21 05:10 Globulin 3.0 g/dL (1.3-4.6 ) 03/04/21 05:10 Procalcitonin 0.34 ng/mL (0-0.5 ) 02/24/21 15:21 TSH 3.19 uIU/mL (0.27 -4.20) 02/24/21 15:21 Urine Color Yellow (Yellow) 02/24/21 20: Urine Appearance Clear (CLEAR) 02/24/21 20: Urine pH 5 (5-7) 02/24/21 20:22 Ur Specific Gravit y 1.020 (1.005-1.0 30) 02/24/21 20:22 Urine Protein 3+ (Negative) H 02/24/21 20:22 Urine Glucose (UA) 4+ (Normal) H 02/24/21 20:22 Urine Ketones 3+ (Negative) H 02/24/21 20: Urine Blood 2+ (Negative) H 02/24/21 20: Urine Nitrate Negative (Negati ve) 02/24/21 20: Urine Bilirubin 1+ (Negative) H 02/24/21 20: Urine Urobilinogen Norm mg/dL (Negat adalberto) 02/24/21 20: Ur Leukocyte Caridad ase Negative (Negati ve) 02/24/21 20: Urine RBC None /hpf (0-2) 02/24/21 20:22 Urine WBC 5-10 /hpf (0-5) H 02/24/21 20:22 Ur Squamous Epith Cells 0-4 /hpf (0-5) H 02/24/21 20:22 Amorphous Sediment Not Reportable 02/24/21 20:22 Urine Bacteria 2+ /hpf (NONE) H 02/24/21 20:22 Hyaline Casts 0-4 /lpf H 02/24/21 20:22 Vancomycin Trough 14.8 ug/mL (10-15 ) 02/28/21 22:39 Serum Ketones Positive (Negati ve) H 02/24/21 15:21 Nasal/Oral COVID-1 9 PCR Not detected 02/24/21 19:01 Influenza Type A A g Negative (Negati ve) 02/24/21 16:50 Influenza Type B A g Negative (Negati ve) 02/24/21 16:50 SARS-CoV-2 Ag (Rap id) Negative (Negati ve) 02/24/21 16:50 Impressions Chest X-Ray 02/27/21 06:00 IMPRESSION: 1. Cardiomegaly. 2. Left pulmonary opacity is again noted and has shown interval worsening from the prior exam. Chest CT 02/28/21 11:08 IMPRESSION: No significant change when compared with 02/27/2021. There is consolidation in the anterior left upper lobe of the lung as before. No definite centrally obstructing mass is identified.If there is desire for further evaluation, a bronchoscopy could be performed. Vitals: Last Vital Signs Temp 98.5 F 03/04/21 11:37 Pulse 78 03/04/21 11:37 Resp 18 03/04/21 11:37 BP 138/71 03/04/21 11:37 Pulse Ox 96 03/04/21 11:37 Discharge Plan Discharge Patient Disposition: Home Condition: Stable Prescriptions: New carvedilol 25 mg Tablet 25 mg PO BID@0900,2100 30 Days Qty: 60 RF: 0 hydralazine 25 mg Tablet 25 mg PO TID 30 Days Qty: 90 RF: 0 chlorthalidone 25 mg Tablet 25 mg PO DAILY 30 Days Qty: 30 RF: 0 famotidine 20 mg Tablet 20 mg PO BID 30 Days Qty: 60 RF: 0 olopatadine 0.1 % Drops 1 drp eye-both BID 7 Days Qty: 1 RF: 0 Augmentin 500-125 mg tablet 1 tab PO BID Qty: 4 RF: 0 levofloxacin 500 mg tablet 500 mg PO Q24H 3 Days Qty: 3 RF: 0 Continued Lantus U-100 Insulin 100 unit/mL solution 40 unit SUBCUT BEDTIME RF: 0 clopidogrel 75 mg tablet 75 mg PO QAM RF: 0 aspirin [Aspir-81] 81 mg Tablet,Delayed Release (Dr/Ec) 81 mg PO QAM RF: 0 amlodipine 10 mg tablet 10 mg PO QAM RF: 0 metformin 1,000 mg tablet 1,000 mg PO BID RF: 0 losartan 100 mg tablet 100 mg PO QAM RF: 0 fenofibrate nanocrystallized 145 mg tablet 145 mg PO BEDTIME RF: 0 Jardiance 10 mg tablet 10 mg PO QAM RF: 0 ondansetron HCl [Zofran] 4 mg tablet 4 mg PO Q6H PRN (Reason: nausea and vomiting) Qty: 14 RF: 0 Discontinued amoxicillin-pot clavulanate [Augmentin] 875-125 mg tablet 1 tab PO Q12H RF: 0 metoprolol tartrate 50 mg tablet 50 mg PO BID RF: 0 Discharge Orders: Discharge Order (Routine); Ordered 03/04/21 Ordered By: Troy Gayle Other Ambulatory Orders: DME: Oxygen (Order) Location: None Selected Ordered By: Troy Gayle Referrals: Clinton Perez MD [Physician] - 2 weeks (Small bowel mass) Magnus Lloyd MD [Physician] - 7-10 days (Bilateral otitis media with rupture of left eardrum) Matthew Geller DO [Primary Care Provider] - 4-7 days (Repeat BMP) Discharge Diet: Soft Mechanical Discharge Activity: Resume usual activity and Increase activity as tolerated Patient Instructions: Opioid Safety Activity Restrictions/Additional Instructions: Please follow-up with your primary care provider within next 4 to 7 days. Please repeat BMP when we follow-up with a primary care provider. Please follow-up with ENT within next 7 to 10 days for bilateral otitis media. Please follow-up with Dr. Reyes in 2 weeks for further evaluation of small bowel mass. Please take Augmentin and Levaquin for 2 more days to finish a course of antibiotics for pneumonia and otitis media. Multiple oral medications for blood pressures have been changed. Take Coreg instead of metoprolol 25 mg twice daily, take amlodipine 10 mg daily, takes losartan 100 mg daily, take chlorthalidone 25 mg daily, take hydralazine 25 mg 3 times a day. Discharge Attestations Time Spent in Discharge Care*: greater than 30 min Specific Discharge Activities: educating patient, discussing with pcp/other providers, discussing with embedded case manager/social workers/dc planners, docume nting/other paperwork and evaluating patient/reviewing data Status at Discharge: Cognitive status at discharge: mildly impaired cognition , Behavioral status at discharge: cooperative , Functional status at discharge: uses cane/walker Overall status at discharge: patient is progressing back to baseline Quality Metrics Clinical Quality Measures During this hospital stay, did patient experience: None Coding Level of Care Code Acute Chg FW DC note Diagnoses Hypoxia R09.02 Sepsis A41.9 Pneumonia J18.9 Left otitis media with spontaneous rupture of eardrum H66.92; H72.92 Acute right otitis media H66.91 Otitis externa H60.90 Hyponatremia E87.1 Bilateral conjunctivitis H10.9 Metabolic acidosis E87.2 Hyperglycemia R73.9 Hypertensive urgency I16.0 Small bowel mass K63.89 DKA (diabetic ketoacidosis) E11.10
--- NOTE | 2021-03-04 14:48 | PC.CHAP ---
Pastoral Care Encounter/Spiritual Assessment Type of Contact [] Declined examination scorer visit [] Patient/Family/Request visit [] Outpatient visit [xx] Follow-up visit [] Physician referral [] Code/Alert [] Routine visit [] Staff referral [] Actively dying [] Patient sleeping [] Family support [] [] Out of room [] Palliative care [] [xx] Receiving care in room [] Pre-surgical visit [] Trauma [xx] Long length of stay [] ICU visit [] Other: Relational/Emotional Strength [] Patient feels connected with others/family/visitors/staff [] Distress [] Loneliness/isolation [] Abandonment Spirituality of Patient [] Person of Tanja [] Attends Mu-Ism of their Tanja [] Believes in Prayer [] Reads Bible or Worship materials [] There are Spiritual issues to be addressed Public Service Administrator Interventions [] Prayer [] Active listening [] Non-anxious presence [] Spiritual/emotional support [] Crisis/trauma care [] Spiritual counseling [] Bereavement support [] Provided bereavement packet [] Provided Bible/devotional materials [] Provided toy/stuffed animal, coloring book to patient or family member [] Provided Communion [] Anointing/[place] [] Salvation [] Completed spiritual assessment [] Other: Impact on Illness or Injury [] Angry [] Fearful [] Anxious [] Often cries [] Exhaustion [] Unable to work [] Unable to attend caodaism [] Unable to walk/stand [] Unable to read [] Unable to drive [] Unable to eat/drink [] Unable to sleep [] Unable to be with family [] Patient intubated [] Other: Summary Follow up later Time spent with patient
== END 2021-03-04 15:00 | disposition home or self-care (01) | DRG 871 ==
LOC: ER 18:08 → MEDSURG 19:46 → ICU 22:44 → MEDSURG 02-25 21:29
PROVIDERS: Hospitalist; Admitting Provider Internal Medicine; Emergency Provider Emergency Medicine; PCP Family Medicine; Visit Provider Student in an Organized Health Care Education/Training Program
DX: A41.9 Sepsis, unspecified organism (principal); J18.9 Pneumonia, unspecified organism; E11.10 Type 2 diabetes mellitus with ketoacidosis without coma; E87.1 Hypo-osmolality and hyponatremia; N39.0 Urinary tract infection, site not specified; I50.30 Unspecified diastolic (congestive) heart failure; H66.93 Otitis media, unspecified, bilateral; H72.92 Unspecified perforation of tympanic membrane, left ear; I16.0 Hypertensive urgency; I11.0 Hypertensive heart disease with heart failure; H10.9 Unspecified conjunctivitis; H60.93 Unspecified otitis externa, bilateral; B96.20 Unspecified Escherichia coli [E. coli] as the cause of diseases classified elsewhere; B96.89 Other specified bacterial agents as the cause of diseases classified elsewhere; K63.9 Disease of intestine, unspecified; J45.909 Unspecified asthma, uncomplicated; E11.65 Type 2 diabetes mellitus with hyperglycemia; R09.02 Hypoxemia; H91.93 Unspecified hearing loss, bilateral; Z79.02 Long term (current) use of antithrombotics/antiplatelets; Z79.82 Long term (current) use of aspirin; Z79.84 Long term (current) use of oral hypoglycemic drugs
CPT/HCPCS: 36415; 36416; 36600; 71045; 71250; 71260; 80048; 80053; 80202; 81001; 82009; 82803; 82962; 83036; 83605; 83735; 84100; 84145; 84443; 84484; 85025; 86140; 86403; 87040; 87070; 87075; 87077; 87086; 87186; 87205; 87426; 87449; 87635; 87641; 87804; 93005; 93306; 94640; 94664; 96365; 96366; 96367; 96372; 97110; 97116; 97161; 97165; 97530; 97535; 99285; J0360; J1650; J1815 ×2; J1940; J2543; J3370; J3480; J7030; J7040; J7050; Q0162; Q9967

== ENCOUNTER 2021-03-22 10:33 | Inpatient (IN) | payer MEDICAID, SELFPAY ==
[2021-03-22] VITALS (8 sets, daily range): BP systolic 161–181; BP diastolic 64–89; PULSE 65–86; RESP 16–28; TEMP 36.6–36.9; O2SAT 98–100; BMI 33.3
--- NOTE | 2021-03-22 11:15 | XRR_ITS ---
PROCEDURE INFORMATION: Exam: XR Chest Exam date and time: 03/22/2021 11:15 AM Age: 70 years old Clinical indication: Dyspnea TECHNIQUE: Imaging protocol: XR of the chest. Views: 1 view. Total images: 1 COMPARISON: CT chest w con* [id number] 02/28/2021 3:50 PM FINDINGS: Lungs: Benign granulomatous disease of the lung is noted. Improved opacity in the left upper lobe with minimal residual. Pleural spaces: Unremarkable. No pleural effusion. No pneumothorax. Heart/Mediastinum: Mild cardiomegaly. Vasculature: Atherosclerosis is evident. Bones/joints: Osseous structures are unchanged from the prior exam. XR/XR chest 1V portable [id number] IMPRESSION: 1. Improved opacity in the left upper lobe with minimal residual. 2. Mild cardiomegaly.
--- NOTE | 2021-03-22 11:19 | ED_ITS ---
HPI - General Adult General: Chief complaint: Abdominal Pain Stated complaint: N/V, WEAKNESS Time Seen by Provider: 03/22/21 11:04 History of Present Illness: HPI narrative: Patient is a 70-year-old female with history of DM, hypertension emergency with complaints of I am feeling dizzy. Patient gets home nursing care. Patient tells me that yesterday she ate a hamburger and shortly after began having nausea and vomiting and diarrhea. Patient denies any chest pain, shortness breath, palpitation or lightheadedness. Patient is 2 L oxygen at home. On further questioning why she needs oxygen, patient is unable to provide me with any answer. Reports that she has had multiple episode of emesis, has not been able to tolerate anything p.o. today. Denies any melena or hematochezia. Reports mild abdominal pain yesterday but currently pain-free. Patient took pepto bismul yesterday without improvement in symptoms. Report dark stools. Onset:1 day ago Duration:1 day Location:home Severity:moderate Review of Systems Narrative: Constitutional: No fever, no chills. HEENT: No vision changes CV: No chest pain, no palpitations PULM: no cough, no dyspnea. GI: +abdominal pain, +N/+V/+D. : No dysuria MSKEL: No muscle pain SKIN: No new rashes, no lesions. NEURO: No headache, no focal weakness. +light-headedness HEME: No visible bruises PSYCH: Normal mood PFSH ED PFSH: Medical History (Updated 03/22/21 @ 15:33 by Columba Daly MD) Arthritis Asthma Bilateral conjunctivitis DKA (diabetic ketoacidosis) DM type 2 (diabetes mellitus, type 2) HTN (hypertension) Hypertensive urgency Left otitis media with spontaneous rupture of eardrum Otitis externa Small bowel mass Surgical History (Updated 02/24/21 @ 19:37 by Zach Webb MD) Hx of cholecystectomy Family History Other Cancer Stroke Social History (Updated 02/24/21 @ 19:38 by Zach Webb MD) Smoking and tobacco status: never smoked Alcohol intake: never Lives independently: Yes Household members: none Marital status: / Physical Exam Narrative: EXAM NARRATIVE: Head: Atraumatic Eyes: PERRL, conjunctiva without injection ENT: Mucous membrane moist NECK: Supple, ROM intact LUNGS: LCTAB, no crackles/rhonchi CV: RRR ABDOMEN: Soft, no focal TTP. NO guarding rebound, guarding, rigidity. No CVA tenderness to percussion. Neg Vega/Neg McBurney's point tenderness, no suprabupic tenderness to palpation. EXTREMITY: Normal ROM SKIN: No rash or erythema NEURO: Awake and alert, no focal motor deficits PSYCH: Normal mood and affect RECTAL: +hemoocult negative stool Course Vital Signs: Vital signs: Vital Signs Temperature 97.8 F 03/22/21 10:38 Pulse Rate 72 03/22/21 13:39 Respiratory Rate 20 H 03/22/21 11:42 Blood Pressure 164/77 03/22/21 13:39 Pulse Oximetry 99 03/22/21 13:39 MDM - General Adult MDM Narrative: Medical decision making narrative: Patient is 70-year-old female presented to emergency room with lightheadedness, abdominal complaints, nausea/vomiting and diarrhea. On arrival, patient is noted to be satting anywhere from 88 to 96%. No focal findings on lung exam. No focal abdominal tenderness palpation. Likely gastrointestinal however given the oxygen sats and feeling lightheadedness will evaluate for PE and ACS. Workup: CBC, CMP, Lipase, UA, lactic acid, troponin/EKG x 2, dimer, lactic acid Intervention: IVF, zofran, gi cocktail, pepcid Dimer elevated CTA showed PE. Patient is still feeling weak and unable to ambulate. Will admit for anticoagulation and rehydration. Pending CTA head and neck/CT head for evaluation of posterior pathologies Disposition: admission Lab Data: Labs: Lab Results 03/22/21 03/22/21 03/22/21 11:39 11:39 11:39 WBC 6.3 10^3/uL 10^3/ uL (4.0-10.0) RBC 4.53 10^6/uL 10^6 /uL (4.1-5.3) Hgb 13.1 g/dL g/dL (11.5-15.3) Hct 38.4 % % (37.0-47.0) MCV 84.8 fl fl (81-99) MCH 28.9 pg pg (28.0-34.0) MCHC 34.1 g/dL g/dL (30.0-36.0) RDW 12.8 % % (12.1-15.1) Plt Count 284 10^3/cmm 10^3 /cmm (130-400) MPV 9.4 fL fL (7.4-10.4) Total Counted 100 (0-100) Atypical Lymphs % 0.0 % % (0-5) Absolute Neutrophi ls 5.8 10^3/cmm 10^3 /cmm (1.4-6.5) Segmented Neutroph ils 91 % % Abs Segm Neuts (Ma n) 5.7 10/cmm 10/cmm (1.6-7.1) Band Neutrophils 1.0 % % Abs Band Neuts (Ma n) 0.1 10^3/cmm 10^3 /cmm (0.0-1.2) Absolute Lymphocyt es 0.4 10^3/cmm L 10 ^3/cmm (1.2-3.4) Lymphocytes (Manua l) 7 % % Monocytes (Manual) 2.0 % % Absolute Monocytes 0.1 10^3/cmm 10^3 /cmm (0.1-0.6) Eosinophils (Manua l) 1 % % Absolute Eosinophi ls 0.0 10^3/cmm 10^3 /cmm (0.0-0.7) Basophils (Manual) 0.0 % % Absolute Basophils 0.0 10^3/cmm 10^3 /cmm (0.0-0.2) Platelet Estimate Normal (Normal) D-Dimer Sodium 137 mmol/L mmol/L (136-145) Potassium 3.4 mmol/L L mmol /L (3.5-5.1) Chloride 97 mmol/L L mmol/ L (98-107) Carbon Dioxide 24 mmol/L mmol/L (22-29) Anion Gap 19.4 H (5-19) BUN 11 mg/dL mg/dL (8-23) Creatinine 0.7 mg/dL mg/dL (0.5-0.9) GFR Calculation 83.0 mL/min L mL/ min (90-130) Glucose 327 mg/dL H mg/dL (65-115) Calculated Osmolal ity 296 mOsm/kg H mOs m/kg (285-295) Lactate Calcium 8.8 mg/dL mg/dL (8.5-10.5) Total Bilirubin 0.3 mg/dL mg/dL (0.15-1.2) AST 9 U/L U/L (0-32) ALT < 5 U/L U/L (0-33) Alkaline Phosphata se 49 IU/L IU/L (35-105) Troponin T Baselin e 9 ng/L ng/L (0-10) Troponin T 120 Min [place] Delta Troponin T Total Protein 7.1 g/dL g/dL (6.6-8.7) Albumin 4.0 g/dL g/dL (3.5-5.2) Globulin 3.1 g/dL g/dL (1.3-4.6) Lipase 44 U/L U/L (13-60) Urine Color Urine Appearance Urine pH Ur Specific Gravit y Urine Protein Urine Glucose (UA) Urine Ketones Urine Blood Urine Nitrate Urine Bilirubin Urine Urobilinogen Ur Leukocyte Caridad ase Urine RBC Urine WBC Ur Squamous Epith Cells Amorphous Sediment Urine Bacteria Urine Mucus 03/22/21 03/22/21 03/22/21 11:39 11:39 12:04 WBC RBC Hgb Hct MCV MCH MCHC RDW Plt Count MPV Total Counted Atypical Lymphs % Absolute Neutrophi ls Segmented Neutroph ils Abs Segm Neuts (Ma n) Band Neutrophils Abs Band Neuts (Ma n) Absolute Lymphocyt es Lymphocytes (Manua l) Monocytes (Manual) Absolute Monocytes Eosinophils (Manua l) Absolute Eosinophi ls Basophils (Manual) Absolute Basophils Platelet Estimate D-Dimer 0.83 ug/mIFEU H u g/mIFEU (0-0.59) Sodium Potassium Chloride Carbon Dioxide Anion Gap BUN Creatinine GFR Calculation Glucose Calculated Osmolal ity Lactate 1.2 mmol/L mmol/L (0.5-2.2) Calcium Total Bilirubin AST ALT Alkaline Phosphata se Troponin T Baselin e Troponin T 120 Min [place] Troponin T Total Protein Albumin Globulin Lipase Urine Color Straw (Yellow) Urine Appearance Clear (CLEAR) Urine pH 7 (5-7) Ur Specific Gravit y 1.000 L (1.005-1.030) Urine Protein 1+ H (Negative) Urine Glucose (UA) 4+ H (Normal) Urine Ketones Negative (Negative) Urine Blood Trace H (Negative) Urine Nitrate Negative (Negative) Urine Bilirubin Neg (Negative) Urine Urobilinogen Norm mg/dL mg/dL (Negative) Ur Leukocyte Caridad ase Negative (Negative) Urine RBC 0-4 /hpf H /hpf (0-2) Urine WBC 5-10 /hpf H /hpf (0-5) Ur Squamous Epith Cells 0-4 /hpf H /hpf (0-5) Amorphous Sediment Not Reportable Urine Bacteria Trace /hpf /hpf (NONE) Urine Mucus Trace /hpf /hpf 03/22/21 13:17 WBC RBC Hgb Hct MCV MCH MCHC RDW Plt Count MPV Total Counted Atypical Lymphs % Absolute Neutrophi ls Segmented Neutroph ils Abs Segm Neuts (Ma n) Band Neutrophils Abs Band Neuts (Ma n) Absolute Lymphocyt es Lymphocytes (Manua l) Monocytes (Manual) Absolute Monocytes Eosinophils (Manua l) Absolute Eosinophi ls Basophils (Manual) Absolute Basophils Platelet Estimate D-Dimer Sodium Potassium Chloride Carbon Dioxide Anion Gap BUN Creatinine GFR Calculation Glucose Calculated Osmolal ity Lactate Calcium Total Bilirubin AST ALT Alkaline Phosphata se Troponin T Baselin e Troponin T 120 Min [place] 9.53 ng/L ng/L (0-10) Delta Troponin T 0.53 ABS# ABS# (0-10) Total Protein Albumin Globulin Lipase Urine Color Urine Appearance Urine pH Ur Specific Gravit y Urine Protein Urine Glucose (UA) Urine Ketones Urine Blood Urine Nitrate Urine Bilirubin Urine Urobilinogen Ur Leukocyte Caridad ase Urine RBC Urine WBC Ur Squamous Epith Cells Amorphous Sediment Urine Bacteria Urine Mucus Imaging Data^: Other Imaging: Radiologist's impression: [address] [id number] Scan ReportSigned Patient: Lady López RUnit #: [id number]: 2Acct#:[id number]/Sex: 70 / FADM Date: 03/22/21Loc: ERRoom/Bed:At [facility] Dr: Ordering Provider/Ordering MD: Columba Daly MD Date of Service: 03/22/21 Procedure(s): CT angio chest w abd pel w con Accession Number(s): [id number] Report Number: [id number] PROCEDURE INFORMATION: Exam: CTA Chest With Contrast Exam date and time: 03/22/2021 12:07 PM Age: 70 years old Clinical indication: Other: AMS; Abdominal pain; Angina; Other: Chest pain; Additional info: AMS, hypoxemia, tachypnea TECHNIQUE: Imaging protocol: Computed tomographic angiography of the chest with contrast. 3D rendering (Not supervised by radiologist): MIP and/or 3D reconstructed images were created by the technologist. Radiation optimization: All CT scans at this facility use at least one of these dose optimization techniques: automated exposure control; mA and/or kV adjustment per patient size (includes targeted exams where dose is matched to clinical indication); or iterative reconstruction. Contrast material: OMNI 350; Contrast volume: 95 ml; Contrast route: INTRAVENOUS (IV); COMPARISON: CT chest w con* [id number] 02/28/2021 3:50 PM RADIATION DOSE METRICS: Total DLP (mGy-cm): 1641.72 FINDINGS: Pulmonary arteries: Subtle pulmonary emboli, most conspicuous within a 3rd order branch of the right upper lobe pulmonary artery (series 2: Image 134). Aorta: Calcification and ectasia of the thoracic aorta. Lungs: Hyperinflation, interstitial disease, chronic granulomatous disease, and mild bronchial wall thickening. Localized left upper lobe airspace disease, which has improved when compared to the previous study. Pleural spaces: No pleural effusion. Heart: Coronary artery calcification and borderline cardiomegaly. Lymph nodes: Calcified and noncalcified lymph nodes including noncalcified 1.8 by 1.3 by 1.0 cm preaortic and 2.1 by 1.7 by 1.1 cm right hilar lymph nodes. Bones/joints: Osteopenia and degenerative change. Soft tissues: Punctate breast calcifications. Other findings: Additional findings as described above. the right upper lobe pulmonary artery (series 2: Image 134). 2. Hyperinflation, interstitial disease, chronic granulomatous disease, and mild bronchial wall thickening. 3. Interval improvement in left upper lobe airspace disease. 4. Additional findings as described above. The aforementioned findings initiated a critical results communication pathway. An addendum will be issued at the time of clincian notification. PROCEDURE INFORMATION: Exam: CT Abdomen And Pelvis With Contrast Exam date and time: 03/22/2021 12:07 PM Age: 70 years old Clinical indication: Other: AMS; Abdominal pain; Angina; Other: Chest pain; Additional info: AMS, hypoxemia, tachypnea TECHNIQUE: Imaging protocol: Computed tomography of the abdomen and pelvis with contrast. Radiation optimization: All CT scans at this facility use at least one of these dose optimization techniques: automated exposure control; mA and/or kV adjustment per patient size (includes targeted exams where dose is matched to clinical indication); or iterative reconstruction. Contrast material: OMNI 350; Contrast volume: 95 ml; Contrast route: INTRAVENOUS (IV); COMPARISON: None RADIATION DOSE METRICS: Total DLP (mGy-cm): 1641.72 FINDINGS: Liver: No focal hepatic mass. Gallbladder and bile ducts: Status post cholecystectomy. Pancreas: No pancreatic mass or ductal dilatation. Spleen: Splenic granulomata. Adrenal glands: Unremarkable adrenals. Kidneys and ureters: Subcentimeter renal nodular hypodensities which are too small to accurately characterize. No hydronephrosis. Stomach and bowel: Mild gastric wall thickening. Diverticula, without pericolonic inflammation. Mild small bowel dilatation without a transition zone. Appendix: No acute appendicitis. Intraperitoneal space: No significant free fluid. Vasculature: Vascular calcification. No abdominal aortic aneurysm. Lymph nodes: Multiple lymph nodes, the majority of which are subcentimeter in size. Urinary bladder: Mathew catheter in the decompressed bladder with intraluminal air. Reproductive: Calcified uterine fibroids. Bones/joints: Osteopenia and degenerative change. Calcified bulging of the L5-S1 disc. Soft tissues: Mild infiltration of subcutaneous fat in the left anterior abdominal wall. CT/CT angio chest w abd pel w con IMPRESSION: 1. Subtle pulmonary emboli, most conspicuous within a 3rd order branch of IMPRESSION: 1. No acute inflammatory process in the abdomen or pelvis. 2. Additional findings as described above. Dictated By:Chilo Vital MDSigned By:Chilo Vital MDSigned Date/Time:03/22/21 [id number]/ 1207 Discharge Plan Discharge Patient Disposition: Admitted As Inpatient Clinical Impression: Nausea & vomiting, Diarrhea, Pulmonary embolism Condition: Stable Coding Level of Care Code ED [employer] De[employer] for Sasha Cox
[2021-03-22] MEDS: famotidine 20 mg/2 mL INJ IVP (11:31)
[2021-03-22] MEDS: ondansetron 2 mg/ML SDV 2 mL 4 MG IVP (11:31)
[2021-03-22] MEDS: sodium chloride 0.9% 1,000 ML 999 ML IV (11:31)
[2021-03-22 11:44] LABS: Hematocrit 38.4 % (37.0-47.0); Hemoglobin 13.1 g/dL (11.5-15.3); Mean Corpuscular HGB Conc 34.1 g/dL (30.0-36.0); Mean Corpuscular Hemoglobin 28.9 pg (28.0-34.0); Mean Corpuscular Volume 84.8 fl (81-99); Mean Platelet Volume 9.4 fL (7.4-10.4); Platelet Count 284 10^3/cmm (130-400); Red Blood Count 4.53 10^6/uL (4.1-5.3); Red Cell Distribution Width 12.8 % (12.1-15.1); White Blood Count 6.3 10^3/uL (4.0-10.0)
[2021-03-22 12:05] LABS: D Dimer 0.83 ug/mIFEU (0-0.59)
[2021-03-22 12:07] LABS: Alanine Aminotransferase < 5 U/L (0-33); Alkaline Phosphatase 49 IU/L (35-105); Anion Gap 19.4 (5-19); Aspartate Amino Transferase 9 U/L (0-32); Blood Urea Nitrogen 11 mg/dL (8-23); Calcium 8.8 mg/dL (8.5-10.5); Carbon Dioxide 24 mmol/L (22-29); Chloride 97 mmol/L (98-107); Globulin 3.1 g/dL (1.3-4.6); Glucose 327 mg/dL (65-115); Lactate (Lactic Acid level) 1.2 mmol/L (0.5-2.2); Lipase 44 U/L (13-60); Osmolality Calculated 296 mOsm/kg (285-295); Potassium 3.4 mmol/L (3.5-5.1); Sodium 137 mmol/L (136-145); Total Bilirubin 0.3 mg/dL (0.15-1.2); Total Protein 7.1 g/dL (6.6-8.7)
--- NOTE | 2021-03-22 12:07 | CTR_ITS ---
PROCEDURE INFORMATION: Exam: CTA Chest With Contrast Exam date and time: 03/22/2021 12:07 PM Age: 70 years old Clinical indication: Other: AMS; Abdominal pain; Angina; Other: Chest pain; Additional info: AMS, hypoxemia, tachypnea TECHNIQUE: Imaging protocol: Computed tomographic angiography of the chest with contrast. 3D rendering (Not supervised by radiologist): MIP and/or 3D reconstructed images were created by the technologist. Radiation optimization: All CT scans at this facility use at least one of these dose optimization techniques: automated exposure control; mA and/or kV adjustment per patient size (includes targeted exams where dose is matched to clinical indication); or iterative reconstruction. Contrast material: OMNI 350; Contrast volume: 95 ml; Contrast route: INTRAVENOUS (IV); COMPARISON: CT chest w con* [id number] 02/28/2021 3:50 PM RADIATION DOSE METRICS: Total DLP (mGy-cm): 1641.72 FINDINGS: Pulmonary arteries: Subtle pulmonary emboli, most conspicuous within a 3rd order branch of the right upper lobe pulmonary artery (series 2: Image 134). Aorta: Calcification and ectasia of the thoracic aorta. Lungs: Hyperinflation, interstitial disease, chronic granulomatous disease, and mild bronchial wall thickening. Localized left upper lobe airspace disease, which has improved when compared to the previous study. Pleural spaces: No pleural effusion. Heart: Coronary artery calcification and borderline cardiomegaly. Lymph nodes: Calcified and noncalcified lymph nodes including noncalcified 1.8 by 1.3 by 1.0 cm preaortic and 2.1 by 1.7 by 1.1 cm right hilar lymph nodes. Bones/joints: Osteopenia and degenerative change. Soft tissues: Punctate breast calcifications. Other findings: Additional findings as described above. the right upper lobe pulmonary artery (series 2: Image 134). 2. Hyperinflation, interstitial disease, chronic granulomatous disease, and mild bronchial wall thickening. 3. Interval improvement in left upper lobe airspace disease. 4. Additional findings as described above. The aforementioned findings initiated a critical results communication pathway. An addendum will be issued at the time of clincian notification. PROCEDURE INFORMATION: Exam: CT Abdomen And Pelvis With Contrast Exam date and time: 03/22/2021 12:07 PM Age: 70 years old Clinical indication: Other: AMS; Abdominal pain; Angina; Other: Chest pain; Additional info: AMS, hypoxemia, tachypnea TECHNIQUE: Imaging protocol: Computed tomography of the abdomen and pelvis with contrast. Radiation optimization: All CT scans at this facility use at least one of these dose optimization techniques: automated exposure control; mA and/or kV adjustment per patient size (includes targeted exams where dose is matched to clinical indication); or iterative reconstruction. Contrast material: OMNI 350; Contrast volume: 95 ml; Contrast route: INTRAVENOUS (IV); COMPARISON: None RADIATION DOSE METRICS: Total DLP (mGy-cm): 1641.72 FINDINGS: Liver: No focal hepatic mass. Gallbladder and bile ducts: Status post cholecystectomy. Pancreas: No pancreatic mass or ductal dilatation. Spleen: Splenic granulomata. Adrenal glands: Unremarkable adrenals. Kidneys and ureters: Subcentimeter renal nodular hypodensities which are too small to accurately characterize. No hydronephrosis. Stomach and bowel: Mild gastric wall thickening. Diverticula, without pericolonic inflammation. Mild small bowel dilatation without a transition zone. Appendix: No acute appendicitis. Intraperitoneal space: No significant free fluid. Vasculature: Vascular calcification. No abdominal aortic aneurysm. Lymph nodes: Multiple lymph nodes, the majority of which are subcentimeter in size. Urinary bladder: Mathew catheter in the decompressed bladder with intraluminal air. Reproductive: Calcified uterine fibroids. Bones/joints: Osteopenia and degenerative change. Calcified bulging of the L5-S1 disc. Soft tissues: Mild infiltration of subcutaneous fat in the left anterior abdominal wall. CT/CT angio chest w abd pel w con IMPRESSION: 1. Subtle pulmonary emboli, most conspicuous within a 3rd order branch of IMPRESSION: 1. No acute inflammatory process in the abdomen or pelvis. 2. Additional findings as described above.
[2021-03-22 12:09] LABS: Troponin(5th) Baseline 9 ng/L (0-10)
[2021-03-22 12:16] LABS: Absolute Neutrophil 5.8 10^3/cmm (1.4-6.5); Absolute Segmented Neutrophil 5.7 10/cmm (1.6-7.1); Band Neutrophils Absolute 0.1 10^3/cmm (0.0-1.2); Eosinophils 1 %; Lymphocytes 7 %; Lymphocytes Absolute 0.4 10^3/cmm (1.2-3.4); Monocytes Absolute 0.1 10^3/cmm (0.1-0.6); Platelet Estimate Normal (Normal); Segmented Neutrophils 91 %; Total Cells Counted 100 (0-100)
[2021-03-22 12:39] LABS: Add Urine Microscopic? YES; Bilirubin Urine Neg (Negative); Blood Urine Trace (Negative); Glucose Urine UA 4+ (Normal); Ketones Urine Negative (Negative); Leukocyte Esterase Urine Negative (Negative); Nitrate Urine Negative (Negative); Protein Urine 1+ (Negative); Urine Appearance Clear (CLEAR); Urine Color Straw (Yellow); Urobilinogen Urine Norm (Negative); pH Urine 7 (5-7)
--- NOTE | 2021-03-22 12:45 | PC.NURSE ---
pt transported to CT scan by zamzam with stretcher
[2021-03-22 12:46] LABS: RBC Urine 0-4 /hpf (0-2); Squamous Epithelial Cell Urine 0-4 /hpf (0-5)
[2021-03-22 12:47] LABS: Add Urine Culture? No; Bacteria Urine TRACE /hpf; Mucus Urine TRACE /hpf
[2021-03-22] MEDS: iohexol 350 mg/mL 100 mL Btl IV ×2 (12:53→16:02)
--- NOTE | 2021-03-22 13:16 | ECG_ITS ---
[facility] Test Date: 2021-03-22 Pat Name: Lady López Department: Room: Gender: Female Director Of Strategic Marketing: : 1950 Requested By: Columba Daly Order Number: [id number] Kelby MD: María Elena Baker M.D. Measurements Intervals [place] Rate: 73 P: 50 [place]: 173 QRS: -22 QRSD: 93 T: 105 QT: 415 QTc: 458 Interpretive Statements SINUS RHYTHM ANTEROSEPTAL MYOCARDIAL INFARCTION , PROBABLY OLD [40+ ms Q WAVE IN V1-V4] Compared to ECG 02/24/2021 19:05:11 Sinus tachycardia no longer present Myocardial infarct finding still present Electronically Signed On 03-23-2021 5:34:48 NEWS CAMERAMAN by María Elena Baker M.D. [id number]
[2021-03-22 13:45] LABS: Troponin 5 2HR 9.53 ng/L (0-10); Troponin 5 2HR Delta 0.53 ABS# (0-10)
--- NOTE | 2021-03-22 13:56 | PC.NURSE ---
PCR covid swab completed and placed in lab. pt on DROPLET isolation precautions pending result
--- NOTE | 2021-03-22 15:00 | PC.NURSE ---
2nd ekg done by RN and given to ER physician
--- NOTE | 2021-03-22 15:00 | PC.NURSE ---
ED physician gave verbal orders to try and ambulate the pt. Pt states she is too dizzy sitting up in her bed and cannot stand or walk at this time. ED physician notified.
--- NOTE | 2021-03-22 15:11 | CTR_ITS ---
PROCEDURE INFORMATION: Exam: CT Angiography Head With Contrast, Arteriography Exam date and time: 03/22/2021 3:11 PM Age: 70 years old Clinical indication: Pain; Headache; Additional info: Eval for posterior pathologies TECHNIQUE: Imaging protocol: Computed tomography angiography of the head with contrast. Exam focused on the arteries. 3D rendering (Not supervised by radiologist): MIP and/or 3D reconstructed images were created by the technologist. Radiation optimization: All CT scans at this facility use at least one of these dose optimization techniques: automated exposure control; mA and/or kV adjustment per patient size (includes targeted exams where dose is matched to clinical indication); or iterative reconstruction. Contrast material: OMNI 350; Contrast volume: 95 ml; Contrast route: INTRAVENOUS (IV); COMPARISON: MRA Head [id number] 06/06/2018 9:31 AM RADIATION DOSE METRICS: Total DLP (mGy-cm): 2520.62 FINDINGS: ANTERIOR CIRCULATION: Right internal carotid artery: Dense wall calcification of the intracranial segment with an estimated 50% luminal narrowing. Remains patent. No aneurysm. Right middle cerebral artery: Unremarkable. No occlusion or significant stenosis. No aneurysm. Right anterior cerebral artery: Unremarkable. No occlusion or significant stenosis. No aneurysm. Left internal carotid artery: Dense wall calcifications of the intracranial segment with an estimated 50% luminal narrowing. Remains patent. No aneurysm. Left middle cerebral artery: Unremarkable. No occlusion or significant stenosis. No aneurysm. Left anterior cerebral artery: Unremarkable. No occlusion or significant stenosis. No aneurysm. POSTERIOR CIRCULATION: Right vertebral artery: Unremarkable. No occlusion or significant stenosis. No aneurysm. Left vertebral artery: Unremarkable. No occlusion or significant stenosis. No aneurysm. Basilar artery: Unremarkable. No occlusion or significant stenosis. No aneurysm. Right posterior cerebral artery: Unremarkable. No occlusion or significant stenosis. No aneurysm. Left posterior cerebral artery: Unremarkable. No occlusion or significant stenosis. No aneurysm. Brain: No definite mass, mass effect, or midline shift. Cerebral ventricles: No ventriculomegaly. Bones/joints: Unremarkable. No acute fracture. Soft tissues: Unremarkable. Thyroid: Subcentimeter nodules noted within both thyroid lobes. Lungs: Focal area of curvilinear scarring in noted in the anterior left upper lobe with mild bronchiectasis. PROCEDURE INFORMATION: Exam: CT Angiography Neck With Contrast Exam date and time: 03/22/2021 3:11 PM Age: 70 years old Clinical indication: Pain; Headache; Additional info: Eval for posterior pathologies TECHNIQUE: Imaging protocol: Computed tomography angiography of the neck with contrast. 3D rendering (Not supervised by radiologist): MIP and/or 3D reconstructed images were created by the technologist. Radiation optimization: All CT scans at this facility use at least one of these dose optimization techniques: automated exposure control; mA and/or kV adjustment per patient size (includes targeted exams where dose is matched to clinical indication); or iterative reconstruction. Contrast material: OMNI 350; Contrast volume: 95 ml; Contrast route: INTRAVENOUS (IV); COMPARISON: MRA Head [id number] 06/06/2018 9:31 AM RADIATION DOSE METRICS: Total DLP (mGy-cm): 2520.62 FINDINGS: Right common carotid artery: Mild stenosis at the carotid bulb with less than 50% luminal narrowing. No dissection or occlusion. Right internal carotid artery: Mild stenosis at the origin of the internal carotid artery of less than 50% luminal narrowing. No dissection or occlusion. Right external carotid artery: No occlusion or stenosis of the origin. Left common carotid artery: No stenosis. No dissection or occlusion. Left internal carotid artery: No stenosis of the extracranial segment. No dissection or occlusion. Left external carotid artery: No occlusion or stenosis of the origin. Right vertebral artery: No stenosis. No dissection or occlusion. Left vertebral artery: No stenosis. No dissection or occlusion. Soft tissues: Normal. No significant soft tissue swelling. Bones/joints: No acute fracture. CT/CT angio headneck* [id number] IMPRESSION: Dense wall calcification with an estimated 50% luminal narrowing of both intracranial segments of the internal carotid arteries. No severe stenosis or occlusion. IMPRESSION: Mild stenosis at the right carotid bulb/proximal internal carotid artery. No significant stenosis or occlusion. REFERENCES: NASCET CRITERIA. The degree of internal carotid artery stenosis is based on NASCET criteria. Normal is no stenosis. Mild is less than 50% stenosis. Moderate is 50-69% stenosis. Severe is 70% to 99% stenosis. Total occlusion is no detectable patent lumen.
--- NOTE | 2021-03-22 15:11 | CTR_ITS ---
PROCEDURE INFORMATION: Exam: CT Head Without Contrast Exam date and time: 03/22/2021 3:11 PM Age: 70 years old Clinical indication: Pain; Headache; Additional info: Eval for posterior pathology per Dr ashley TECHNIQUE: Imaging protocol: Computed tomography of the head without contrast. Radiation optimization: All CT scans at this facility use at least one of these dose optimization techniques: automated exposure control; mA and/or kV adjustment per patient size (includes targeted exams where dose is matched to clinical indication); or iterative reconstruction. COMPARISON: MRI Head w/wo* [id number] 06/06/2018 9:44 AM RADIATION DOSE METRICS: Total DLP (mGy-cm): 637.41 FINDINGS: Brain: No hemorrhage. Mild diffuse cerebral atrophy. Extensive hypoattenuation within the periventricular and deep white matter tracts most suggestive of chronic small vessel ischemic disease. No mass effect. Cerebral ventricles: No ventriculomegaly. Paranasal sinuses: Visualized sinuses are unremarkable. No fluid levels. Mastoid air cells: Bilateral mastoid effusions without erosive changes. Bones/joints: Unremarkable. No acute fracture. Soft tissues: Unremarkable. CT/CT head wo con* [id number] IMPRESSION: 1. No acute intracranial abnormality. 2. Bilateral mastoid effusions. 3. Mild diffuse cerebral atrophy. Extensive hypoattenuation within the periventricular and deep white matter tracts most suggestive of chronic small vessel ischemic disease.
[2021-03-22 15:43] LABS: Adenovirus Not Detected (NOT DETECT); Chlamydia Pneumoniae Not Detected (NOT DETECT); Coronavirus 229E,HKU1,NL63,OC4 Not Detected (NOT DETECT); Human Metapneumovirus Not Detected (NOT DETECT); Human Rhinovirus/Enterovirus Not Detected (NOT DETECT); Influenza A Not Detected (NOT DETECT); Influenza A H1 Not Detected (NOT DETECT); Influenza A H1-2009 Not Detected (NOT DETECT); Influenza A H3 Not Detected (NOT DETECT); Influenza B Not Detected (NOT DETECT); Mycoplasma Pneumoniae Not Detected (NOT DETECT); Parainfluenza Virus Type 1 Not Detected (NOT DETECT); Parainfluenza Virus Type 2 Not Detected (NOT DETECT); Parainfluenza Virus Type 3 Not Detected (NOT DETECT); Parainfluenza Virus Type 4 Not Detected (NOT DETECT); Respiratory Syncytial Virus A Not Detected (NOT DETECT); Respiratory Syncytial Virus B Not Detected (NOT DETECT); SARS-COV-2 Not Detected (NOT DETECT)
--- NOTE | 2021-03-22 17:30 | P.HP_ITS ---
Providers/Chief Complaint Primary Care Provider: Matthew Geller DO Chief Complaint: N/V, WEAKNESS History of Present Illness Lady López is a 70 year old female with PMH of HTN, DM,came in with c/o dizziness started sine yesterday, say that [place] of [place] she has not been even to walk to her bathroom, she was also complaining of nausea,non bloody vomiting going on for last few days as well as watery diarrhea for last 1 week.She deny any chest pain,sob,headache,fever,cough,weakness in any body parts.Upon arrival in the ER she was worked up for above mention complain. Pertinent Imaging studies : CTA chest abdomen and pelvis : Subtle pulmonary emboli,. No acute inflammatory process in the abdomen or pelvis. C.T Head without contrast : No acute intracranial pathology CTA Head and neck : No severe stenosis or occlusion. EKG : SR Pertinent Labs : WBC : 6.3 , H&H : 13/38 PLT : 284 , Serum Na: 137, k: 3.4, BUN/SCR : 11/0.7 , RBS:327 , Serum lactate : 1.2 Troponin Trend :Normal Urine Analysis :Clean Review of Systems Const: Denies: fever(s), chills, body aches, change in appetite or diaphoresis Card: Denies: palpitations, edema, swelling of feet/ankles, dyspnea on exertion, orthopnea or leg pain with exertion Resp: Denies: dyspnea, productive cough, wheezing or pain on inspiration GI: Denies: constipation : Denies: flank pain Musc: Denies: back pain, extremity pain or extremity swelling Neuro: Denies: headache(s) or confusion Medications/Allergies Home Medications Medication Instructions Recorded Confirmed Last Taken Type Jardiance 10 mg PO QAM 02/22/21 03/22/21 Unknown History Lantus U-100 Insulin 40 unit SUBCUT BEDTIME 02/22/21 03/22/21 Unknown History amlodipine 10 mg PO QAM 02/22/21 03/22/21 Unknown History aspirin 81 mg PO QAM 02/22/21 03/22/21 Unknown History clopidogrel 75 mg PO QAM 02/22/21 03/22/21 Unknown History fenofibrate nanocrystallized 145 mg PO BEDTIME 02/22/21 03/22/21 Unknown History losartan 100 mg PO QAM 02/22/21 03/22/21 Unknown History metformin 1,000 mg PO BID 02/22/21 03/22/21 Unknown History ondansetron HCl [Zofran] 4 mg PO Q6H PRN #14 tab 02/22/21 03/22/21 Unknown Rx carvedilol 25 mg PO BID@0900,2100 30 Days #60 03/04/21 03/22/21 Unknown Rx tab chlorthalidone 25 mg PO DAILY 30 Days #30 tab 03/04/21 03/22/21 Unknown Rx famotidine 20 mg PO BID 30 Days #60 tab 03/04/21 03/22/21 Unknown Rx hydralazine 25 mg PO TID 30 Days #90 tab 03/04/21 03/22/21 Unknown Rx Allergies Allergy/AdvReac Type Severity Reaction Status Date / Time codeine Allergy ADR-Diarrhe Verified 02/24/21 15:03 a tetanus and diphtheria Allergy Unknown Verified 02/24/21 15:03 toxoids PFSH Acute PFSH: Medical History (Updated 03/22/21 @ 19:20 by Edwin Booth MD) Arthritis Asthma Bilateral conjunctivitis DKA (diabetic ketoacidosis) DM type 2 (diabetes mellitus, type 2) HTN (hypertension) Hypertensive urgency Left otitis media with spontaneous rupture of eardrum Otitis externa Small bowel mass Surgical History (Updated 02/24/21 @ 19:37 by Zach Webb MD) Hx of cholecystectomy Family History Other Cancer Stroke Social History (Updated 02/24/21 @ 19:38 by Zach Webb MD) Smoking and tobacco status: never smoked Alcohol intake: never Lives independently: Yes Household members: none Marital status: / Vitals/I&O/Wt Last Vital Signs Temp 97.8 F 03/22/21 10:38 Pulse 72 03/22/21 13:39 Resp 20 H 03/22/21 11:42 BP 164/77 03/22/21 13:39 Pulse Ox 99 03/22/21 13:39 03/22/21 03/22/21 03/22/21 06:59 14:59 22:59 Intake Total 1000 / 1000 Balance 1000 / 1000 Weight last 48 hrs Weight 90.718 kg Physical Exam Const: COMMON NORMALS: patient oriented x3 HENMT: COMMON NORMALS: normocephalic HEAD & SCALP: normocephalic and atraumatic Resp: COMMON NORMALS: clear to auscultation bilaterally EFFORT & INSPECTION: Yes symmetric chest movement AUSCULTATION: clear to auscultation bilaterally Cardio: COMMON NORMALS: regular rate, regular rhythm, S1 normal heart sound present, S2 normal heart sound present, No gallops present (Cardio), No murmurs present (Cardio), No rub (Cardio) and Peripheral pulses 2+ throughout RATE: regular rate RHYTHM: regular rhythm HEART SOUNDS: S1 normal heart sound present and S2 normal heart sound present PERIPHERAL PULSES: Peripheral pulses 2+ throughout GI: COMMON NORMALS: Normal to inspection, nondistended, normoactive bowel sounds present, Soft to palpation, non-tender, No hepatosplenomegaly present and no masses AUSCULTATION: Yes normoactive bowel sounds PALPATION: Yes Soft to palpation and Yes No hepatosplenomegaly present RECTAL EXAM: deferred Extremity: COMMON NORMALS: no clubbing, cyanosis or edema and no pedal edema Neuro: COMMON NORMALS: patient oriented x3 Urinary Catheter Management^: Mathew: Cath Placed During This Visit: yes Urinary Catheter Date of Insertion: 03/22/21 Urinary Catheter Time of Insertion: 12:00 Data : 03/22/21 11:39 03/22/21 11:39 A&P Assessment and plan (1) Pulmonary embolism: Status: Acute (2) Gastroenteritis: Status: Acute (3) DM type 2 (diabetes mellitus, type 2): Status: Acute (4) HTN (hypertension): Status: Acute (5) Hypokalemia: Status: Acute Additional A&P Information Lady López is a 70 year old female with PMH of HTN, DM,came in with c/o dizziness started sine yesterday, say that [place] of that she has not been even to walk to her bathroom, she was also complaining of nausea,non bloody vomiting going on for last few days as well as watery diarrhea for last 1 week. # Acute Pulmonary Embolism: Currently on Therapeutic Ac with Lovenox.Will switch to po Eliquis on discharge #Gastroenteritis : Patient has presented with nausea, vomiting and diarrhea is also complaining of abdominal pain. Follow Stool studies Continue I.V Hydration with NS #Dizziness : Likely 2/2 to dehydration:Patient has recent h/o Otitis Media but currently she is denying any vertigo, she is also denying any ear pain, discharge of hearing problems. Monitor O/H Vitals Continue I.V Hydration # DM : On Lantus and SSI Monitor FSG Carbohydrate consistenet diet. #Hypertension : #Hypokalemia : Monitor serum potassium and replace #DVT PPX : ON lovenox #Code Status :Full code # Disposition:Patient is extremely weak and will likely need shelter placement.Will involve PT in patient care. Attestations Medical Necessity Statement*: Patient needs to be in hospital for management of acute pulmonary embolism, gastroenteritis, dehydration , dizziness. Anticipated LOS greater than 2 midnights. Coding Level of Care Code Acute Clerk Typist for [facility] Fwd Exam Detailed Diagnoses Pulmonary embolism I26.99 Gastroenteritis K52.9 DM type 2 (diabetes mellitus, type 2) E11.9 HTN (hypertension) I10 Hypokalemia E87.6
--- NOTE | 2021-03-22 17:48 | PC.NURSE ---
rounding on pt, pt denies all nausea and pain at this time. still c/o weakness. assisted pt with repositioning in the bed for comfort, pillows placed. pt's family member at bedside and asking for update. ED physician notified.
--- NOTE | 2021-03-22 18:19 | PC.NURSE ---
lovenox injection not given at 1500 due to medication not being sent from central pharmacy. requested. did not receive. will pass on to next nurse
--- NOTE | 2021-03-22 20:42 | NPU.GN ---
Medical Surgical Floor Group Topic: General Mood of Group
--- NOTE | 2021-03-22 20:42 | PC.NURSE ---
Received transfer report from Germain ABARCA. Dr Herring secured message per charge nurse Shantel FLORES; in regards to lovenox / none administered in ER per report/ medication scheduled to start at 0600 03/23/2021. If no response will notify business solutions architect hospitalist.
[2021-03-22 21:07] LABS: Glucose Point of Care 280 mg/dL (70-110)
[2021-03-22] MEDS: famotidine 20 mg Tablet PO (21:25)
[2021-03-22] MEDS: insulin glargine 100 units/1 mL 40 UNIT SUBCUT (21:27)
[2021-03-22] MEDS: enoxaparin 100 mg/mL Syringe 90 MG SUBCUT (21:27)
[2021-03-22] MEDS: sodium chloride 0.9% 1,000 ML 75 ML IV (22:10)
[2021-03-22] MEDS: fenofibrate 145 mg Tablet PO (22:13)
[2021-03-22] MEDS: carvedilol 25 mg Tablet PO (22:13)
[2021-03-23] VITALS (8 sets, daily range): BP systolic 76–163; BP diastolic 58–78; PULSE 62–69; RESP 16–18; TEMP 36.6–36.9; O2SAT 92–99; BMI 38.4
[2021-03-23 03:54] LABS: Basophils # 0.1 10^3/uL (0.0-0.1); Basophils % 0.7 %; Eosinophils # 0.2 10^3/uL (0.0-0.8); Eosinophils % 2.7 %; Hematocrit 33.9 % (37.0-47.0); Hemoglobin 11.5 g/dL (11.5-15.3); Lymphocytes # 1.4 10^3/uL (0.8-4.8); Lymphocytes % 19.9 %; Mean Corpuscular HGB Conc 33.9 g/dL (30.0-36.0); Mean Corpuscular Hemoglobin 29.2 pg (28.0-34.0); Mean Platelet Volume 9.6 fL (7.4-10.4); Monocytes # 0.5 10^3/uL (0.2-0.9); Monocytes % 6.8 %; Neutrophils # 4.83 10^3/uL (1.8-7.7); Neutrophils % 69.6 %; Nucleated Red Blood Cells % 0 %; Platelet Count 273 10^3/cmm (130-400); Red Blood Count 3.94 10^6/uL (4.1-5.3); Red Cell Distribution Width 13.1 % (12.1-15.1); White Blood Count 6.9 10^3/uL (4.0-10.0)
[2021-03-23 04:02] LABS: Partial Thromboplastin Time 31.4 SECONDS (23.9-36.7)
[2021-03-23 04:05] LABS: Anion Gap 13.3 (5-19); Blood Urea Nitrogen 10 mg/dL (8-23); Calcium 8.1 mg/dL (8.5-10.5); Carbon Dioxide 27 mmol/L (22-29); Chloride 100 mmol/L (98-107); Glomerular Filtration Rate 62.1 mL/min (90-130); Glucose 348 mg/dL (65-115); Magnesium 1.8 mg/dL (1.7-2.3); Osmolality Calculated 297 mOsm/kg (285-295); Potassium 3.3 mmol/L (3.5-5.1); Sodium 137 mmol/L (136-145)
[2021-03-23] MEDS: clopidogrel 75 mg Tablet PO (06:30)
[2021-03-23] MEDS: amlodipine 10 mg Tablet PO (06:30)
[2021-03-23] MEDS: aspirin 81 mg EC Tablet PO (06:30)
[2021-03-23 06:43] LABS: Glucose Point of Care 333 mg/dL (70-110)
[2021-03-23] MEDS: chlorthalidone 25 mg Tablet PO (08:08)
[2021-03-23] MEDS: carvedilol 25 mg Tablet PO ×2 (08:09→22:12)
[2021-03-23] MEDS: insulin lispro 100 unit/1 mL SUBCUT ×3 (08:09→17:07)
[2021-03-23] MEDS: famotidine 20 mg Tablet PO ×2 (08:09→17:08)
[2021-03-23] MEDS: sodium chloride 0.9% 1,000 ML 75 ML IV (10:13)
--- NOTE | 2021-03-23 10:27 | PC.CHAP ---
Pastoral Care Encounter/Spiritual Assessment Type of Contact [] Declined hand fabric cutter visit [] Patient/Family/Request visit [] Outpatient visit [] Follow-up visit [] Physician referral [] Code/Alert [x] Routine visit [] Staff referral [] Actively dying [] Patient sleeping [] Family support [] [] Out of room [] Palliative care [] [] Receiving care in room [] Pre-surgical visit [] Trauma [] Long length of stay [] ICU visit [] Other: Relational/Emotional Strength [x] Patient feels connected with others/family/visitors/staff [] Distress [] Loneliness/isolation [] Abandonment Spirituality of Patient x[x] Person of Tanja [x] Attends Jehovah[employer] Witness of their Tanja x[x] Believes in Prayer [] Reads Bible or Confucianism materials [] There are Spiritual issues to be addressed Supply Chain Logistics Manager Interventions [x] Prayer [x] Active listening [x] Non-anxious presence [] Spiritual/emotional support [] Crisis/trauma care [] Spiritual counseling [] Bereavement support [] Provided bereavement packet [] Provided Bible/devotional materials [] Provided toy/stuffed animal, coloring book to patient or family member [] Provided Communion [] Anointing/[place] [] Salvation [x] Completed spiritual assessment [] Other: Impact on Illness or Injury [] Angry [] Fearful [] Anxious [] Often cries [] Exhaustion [] Unable to work [] Unable to attend shinto [] Unable to walk/stand [] Unable to read [] Unable to drive [] Unable to eat/drink [] Unable to sleep [] Unable to be with family [] Patient intubated [] Other: Summary Time spent with patient 10 min
[2021-03-23 11:39] LABS: Glucose Point of Care 235 mg/dL (70-110)
--- NOTE | 2021-03-23 15:20 | P.PN_ITS ---
Subjective Subjective: Interval history: Patient was seen and examined this morning, deny an dizziness, did well with physical therapy, H&H Stable. Vitals and labs have been reviewed. Medications: Medication Review Details: Generic Name Dose Route Start Last Admin Trade Name Joseluis PRN Reason Stop Dose Admin Amlodipine Besylat e 10 mg 03/23/21 06:00 03/23/21 06:30 Amlodipine 10 Mg Tablet PO 10 mg QAM NAHUM Administration Aspirin 81 mg 03/23/21 06:00 03/23/21 06:30 Aspirin 81 Mg Ec Tablet PO 81 mg QAM NAHUM Administration Carvedilol 25 mg 03/22/21 21:00 03/23/21 08:09 Carvedilol 25 Mg Tablet PO 25 mg BID@0900,2100 NAHUM Administration Chlorthalidone 25 mg 03/23/21 09:00 03/23/21 08:08 Chlorthalidone 2 5 Mg Tablet PO 25 mg DAILY NAHUM Administration Clopidogrel Bisulf ate 75 mg 03/23/21 06:00 03/23/21 06:30 Clopidogrel 75 M g Tablet PO 75 mg QAM NAHUM Administration Enoxaparin Sodium 90 mg 03/22/21 20:55 03/22/21 21:27 Enoxaparin 100 M g/Ml Syringe SUBCUT 90 mg BID NAHUM Administration Famotidine 20 mg 03/22/21 20:08 03/23/21 08:09 Famotidine 20 Mg Tablet PO 20 mg BID NAHUM Administration Fenofibrate 145 mg 03/22/21 21:00 03/22/21 22:13 Fenofibrate 145 Mg Tablet PO 145 mg BEDTIME NAHUM Administration Sodium Chloride 1,000 mls @ 75 ml s/hr 03/22/21 20:08 03/23/21 10:13 Sodium Chloride 0.9% IV 75 mls/hr .[id number] NAHUM Administration Insulin Glargine 40 unit 03/22/21 21:00 03/22/21 21:27 Insulin Glargine 100 Units/1 Ml SUBCUT 40 unit BEDTIME NAHUM Administration Insulin Human Lisp ro 0 unit 03/22/21 18:00 03/23/21 12:25 Insulin Lispro 1 00 Unit/1 Ml SUBCUT 8 unit TIDWM NAHUM Administration Protocol Vitals/I&O/Wt Last Vital Signs Temp 97.9 F 03/23/21 12:00 Pulse 64 03/23/21 12:00 Resp 18 03/23/21 12:00 BP 163/78 03/23/21 12:00 Pulse Ox 94 03/23/21 12:00 03/23/21 03/23/21 03/23/21 06:59 14:59 22:59 Intake Total 800 / 1800 903.75 / 903.75 Balance 800 / 0 903.75 / 903.75 Weight last 48 hrs Weight 104.825 kg Weight 90.718 kg Physical Exam Const: COMMON NORMALS: patient oriented x3 HENMT: COMMON NORMALS: normocephalic HEAD & SCALP: normocephalic Eye: COMMON NORMALS: no scleral icterus Cardio: COMMON NORMALS: regular rate, regular rhythm, S1 normal heart sound present, S2 normal heart sound present, No gallops present (Cardio), No murmurs present (Cardio), No rub (Cardio) and Peripheral pulses 2+ throughout RATE: regular rate RHYTHM: regular rhythm HEART SOUNDS: S1 normal heart sound present and S2 normal heart sound present PERIPHERAL PULSES: Peripheral pulses 2+ throughout GI: COMMON NORMALS: Normal to inspection, nondistended, normoactive bowel sounds present, Soft to palpation, non-tender, No hepatosplenomegaly present and no masses AUSCULTATION: Yes normoactive bowel sounds PALPATION: Yes Soft to palpation and Yes No hepatosplenomegaly present RECTAL EXAM: deferred Extremity: COMMON NORMALS: no clubbing, cyanosis or edema and no pedal edema Neuro: COMMON NORMALS: patient oriented x3 Urinary Catheter Management^: Mathew: Cath Placed During This Visit: yes Reason for Continuing Indwelling Catheter: Other Urinary Catheter Date of Insertion: 03/22/21 Urinary Catheter Time of Insertion: 12:00 Data : 03/24/21 02:19 03/24/21 02:19 A&P Assessment and plan (1) Pulmonary embolism: Status: Acute (2) Gastroenteritis: Status: Acute (3) DM type 2 (diabetes mellitus, type 2): Status: Acute (4) HTN (hypertension): Status: Acute (5) Hypokalemia: Status: Acute Additional A&P Information Lady López is a 70 year old female with PMH of HTN, DM,came in with c/o dizziness started sine yesterday, say that [place] of that she has not been even to walk to her bathroom, she was also complaining of nausea,non bloody vomiting going on for last few days as well as watery diarrhea for last 1 week. # Acute Pulmonary Embolism: Currently on Therapeutic Ac with Lovenox.Will switch to po Eliquis on discharge #Gastroenteritis : Patient has presented with nausea, vomiting and diarrhea is also complaining of abdominal pain. Follow Stool studies Continue I.V Hydration with NS #Dizziness : Likely 2/2 to dehydration:Patient has recent h/o Otitis Media but currently she is denying any vertigo, she is also denying any ear pain, discharge of hearing problems. Monitor O/H Vitals Continue I.V Hydration # DM : On Lantus and SSI Monitor FSG Carbohydrate consistenet diet. #Hypertension : #Hypokalemia : Monitor serum potassium and replace #DVT PPX : ON lovenox #Code Status :Full code #Disposition:Patient is extremely weak and will likely need skilled nursing placement.Will involve PT in patient care. Attestations Medical Necessity Statement*: Patient needs to be in hospital for the management of Ac p/e,G/E and need for I.V Fluids, monitoring for h&H . Coding Level of Care Code Acute Cosmetician Apprentice for [facility] Fwd Exam Detailed Diagnoses Pulmonary embolism I26.99 Gastroenteritis K52.9 DM type 2 (diabetes mellitus, type 2) E11.9 HTN (hypertension) I10 Hypokalemia E87.6
[2021-03-23 16:52] LABS: Glucose Point of Care 296 mg/dL (70-110)
[2021-03-23] MEDS: enoxaparin 100 mg/mL Syringe 90 MG SUBCUT (17:08)
--- NOTE | 2021-03-23 19:44 | PC.NURSE ---
Shift report received from Ingrid FLORES. Patient in bed/sleeping. IV patent/infusing NS at 75mL/hr. No s/s of pain or discomfort. No needs noted at this time.
--- NOTE | 2021-03-23 21:15 | USCV_ITS ---
Lady López Age: 70 Gender: F : 1950 Exam Date: 03/23/2021 06:36 Ordering Phys: Edwin Booth MD Technologist: [place] [facility] [place]: EVAL FOR DVT PROCEDURES: Venous duplex imaging was performed in bilateral lower extremities. The following venous structures were evaluated: common femoral vein, profunda vein, proximal portion of the greater saphenous vein, superficial femoral vein, and the popliteal vein. In addition, the posterior tibial and peroneal trunk were evaluated. Serial compression, augmentation maneuvers, and spectral Doppler flow evaluation were performed. FINDINGS: Normal 2-D Doppler and augmentation and compressibility throughout the lower extremity venous structures. Additional imaging through the proximal calf veins also reveals no thrombus. Limited evaluation of the greater saphenous vein is patent with no thrombus. CONCLUSIONS No DVT bilateral lower extremities. Dr. Pat Zafar DO (Electronically Signed) Final Date: 23 March 2021 07:44 S
[2021-03-23] MEDS: insulin glargine 100 units/1 mL 40 UNIT SUBCUT (22:12)
[2021-03-23] MEDS: fenofibrate 145 mg Tablet PO (22:12)
[2021-03-24 02:54] VITALS: BP 154/77; PULSE 67; RESP 16; TEMP 36.8; O2SAT 97
[2021-03-24 03:02] LABS: Basophils # 0.1 10^3/uL (0.0-0.1); Basophils % 0.7 %; Eosinophils # 0.4 10^3/uL (0.0-0.8); Eosinophils % 5.8 %; Hematocrit 33.1 % (37.0-47.0); Hemoglobin 11.1 g/dL (11.5-15.3); Lymphocytes # 1.7 10^3/uL (0.8-4.8); Lymphocytes % 24.6 %; Mean Corpuscular HGB Conc 33.5 g/dL (30.0-36.0); Mean Corpuscular Hemoglobin 29.2 pg (28.0-34.0); Mean Corpuscular Volume 87.1 fl (81-99); Mean Platelet Volume 9.9 fL (7.4-10.4); Monocytes # 0.4 10^3/uL (0.2-0.9); Monocytes % 5.7 %; Neutrophils # 4.42 10^3/uL (1.8-7.7); Neutrophils % 62.9 %; Nucleated Red Blood Cells % 0 %; Platelet Count 254 10^3/cmm (130-400)
--- NOTE | 2021-03-24 03:12 | PC.NURSE ---
Patient in bed /awake. Denies pain. No s/s of pain or discomfort. No needs voiced at this time.
[2021-03-24 03:16] LABS: Anion Gap 14.5 (5-19); Blood Urea Nitrogen 13 mg/dL (8-23); Calcium 8.4 mg/dL (8.5-10.5); Carbon Dioxide 27 mmol/L (22-29); Chloride 100 mmol/L (98-107); Glucose 273 mg/dL (65-115); Osmolality Calculated 296 mOsm/kg (285-295); Potassium 3.5 mmol/L (3.5-5.1); Sodium 138 mmol/L (136-145)
[2021-03-24] MEDS: clopidogrel 75 mg Tablet PO (05:27)
[2021-03-24] MEDS: aspirin 81 mg EC Tablet PO (05:27)
[2021-03-24] MEDS: enoxaparin 100 mg/mL Syringe 90 MG SUBCUT (05:27)
[2021-03-24] MEDS: amlodipine 10 mg Tablet PO (05:27)
[2021-03-24 06:45] LABS: Glucose Point of Care 302 mg/dL (70-110)
[2021-03-24 07:14] VITALS: BP 151/73; PULSE 61; RESP 18; TEMP 36.7; O2SAT 95
[2021-03-24] MEDS: famotidine 20 mg Tablet PO (08:14)
[2021-03-24] MEDS: carvedilol 25 mg Tablet PO (08:14)
[2021-03-24] MEDS: insulin lispro 100 unit/1 mL SUBCUT (08:14)
[2021-03-24] MEDS: chlorthalidone 25 mg Tablet PO (08:16)
--- NOTE | 2021-03-24 10:23 | P.DS_ITS ---
Discharge Providers Date of Admission: 03/22/21 15:14 Date of Discharge: March 24, 2021 Attending Provider at Admission: Edwin Booth MD Attending Provider at Discharge: Edwin Booth MD Primary Care Provider: Matthew Geller DO Diagnoses at Discharge Discharge Diagnosis (1) Pulmonary embolism: Status: Acute (2) Gastroenteritis: Status: Acute (3) DM type 2 (diabetes mellitus, type 2): Status: Acute (4) HTN (hypertension): Status: Acute (5) Hypokalemia: Status: Acute Reason for Visit Reason for Visit: N/V, WEAKNESS Hospital Course Hospital Course 70 year old female with PMH of HTN, DM,came in with c/o dizziness started sine yesterday, say that be[place] of that she has not been even to walk to her bathroom, she was also complaining of nausea,non bloody vomiting going on for last few days as well as watery diarrhea for last 1 week.She deny any chest pain,sob,headache,fever,cough,weakness in any body parts.Upon arrival in the ER she was worked up for above mention complain. Pertinent Imaging studies : CTA chest abdomen and pelvis : Subtle pulmonary emboli,. No acute inflammatory process in the abdomen or pelvis. C.T Head without contrast : No acute intracranial pathology CTA Head and neck : No severe stenosis or occlusion. EKG : SR: She was admitted for the management of acute pulmonary embolism, she was kept on therapeutic anticoagulation with Lovenox during the hospital stay H&H was stable, was transitioned to p.o. Eliquis on discharge. She was also managed for gastroenteritis: At the time of discharge it has improved , dizziness likely secondary to dehydration possible contribution from acute PE, she was kept on IV hydration responded well, She participated with physical therapy, was considered safe to be discharged home. At the time of discharge she has been continued on aspirin and Eliquis Plavix has been discontinued, Changes to her antihypertensive medications have also been made, hydralazine and chlorthalidone has been discontinued, losartan amlodipine and carvedilol has been continued, she has been asked to monitor the blood pressure, if it remains well controlled on this current regimen, she can continue to avoid hydralazine and chlorthalidone, if not can be resumed. She was also asked to monitor blood pressure at home, and possible keep a blood pressure log book and follow-up with her PCP for further antihypertensive optimization. Patient responded well to above medical management and is being discharged in stable condition to home. Physical Exam Const: COMMON NORMALS: patient oriented x3 HENMT: COMMON NORMALS: normocephalic HEAD & SCALP: normocephalic Eye: COMMON NORMALS: no scleral icterus GENERAL EYE: appearance normal, both eyes and all related structures Chest: COMMONS NORMALS: normal inspection of the chest and normal palpation of entire chest wall CHEST: Yes Symmetrical chest wall rise Resp: COMMON NORMALS: clear to auscultation bilaterally EFFORT & INSPECTION: Yes symmetric chest movement AUSCULTATION: clear to auscultation bilaterally Cardio: COMMON NORMALS: regular rate, regular rhythm, S1 normal heart sound present, S2 normal heart sound present, No gallops present (Cardio), No murmurs present (Cardio), No rub (Cardio) and Peripheral pulses 2+ throughout RATE: regular rate RHYTHM: regular rhythm HEART SOUNDS: S1 normal heart sound present and S2 normal heart sound present PERIPHERAL PULSES: Peripheral pulses 2+ throughout GI: COMMON NORMALS: Normal to inspection, nondistended, normoactive bowel sounds present, Soft to palpation, non-tender, No hepatosplenomegaly present and no masses AUSCULTATION: Yes normoactive bowel sounds PALPATION: Yes Soft to palpation and Yes No hepatosplenomegaly present RECTAL EXAM: deferred : COMMON NORMALS: Yes no CVA tenderness BLADDER/KIDNEY EXAM: Yes no CVA tenderness Back/Pelvis: COMMON NORMALS: no CVA tenderness Extremity: COMMON NORMALS: no clubbing, cyanosis or edema and no pedal edema Neuro: COMMON NORMALS: patient oriented x3 Urinary Catheter Management^: Mathew: Cath Placed During This Visit: yes, but has since been removed by the nurse Reason for Continuing Indwelling Catheter: Decision to DC Catheter Urinary Catheter Date of Insertion: 03/22/21 Urinary Catheter Time of Insertion: 12:00 Date Urinary Catheter Removed: 03/23/21 Time Urinary Catheter Discontinued: 15:41 Discharge Data Data Completed and Pending: Completed Studies During Hospitalization Category Date Time Status CT angio chest w abd pel w con Urge nt Cat Scan 03/22/21 12:[address] angio headneck * [id number] Urge nt Cat Scan 03/22/21 15:[address] head wo con* 7 [id number] Urgent Cat Scan 03/22/21 15:11 Completed XR chest 1V flores ble [id number] Urgent Exams 03/22/21 11:15 [place] [id number] Routin e Ultrasound 03/23/21 21:15 Completed Pending at discharge Category Date Time Status Basic Metabolic P bibi AM LABS Lab 03/25/21 04:00 Ordered Clostridioides Di fficile PCR Routin e Lab 03/22/21 20:08 Uncollected Complete Blood Co unt w/Auto AM LABS Lab 03/25/21 04:00 Ordered Enteric Bacterial Panel by PCR Rout ine Lab 03/22/21 20:08 Uncollected Enteric Parasite Panel by PCR Routi ne Lab 03/22/21 20:08 Uncollected Immunochemical Fe joni OCB Stat Lab 03/22/21 12:04 Ordered Labs from last 24 hours 03/24/21 03/24/21 03/24/21 06:32 02:19 02:19 WBC 7.0 RBC 3.80 L Hgb 11.1 L Hct 33.1 L MCV 87.1 MCH 29.2 MCHC 33.5 RDW 13.0 Plt Count 254 MPV 9.9 Neut % (Auto) 62.9 Lymph % (Auto) 24.6 [place] % (Auto) 5.7 Eos % (Auto) 5.8 Baso % (Auto) 0.7 Neut # (Auto) 4.42 Lymph # (Auto) 1.7 [place] # (Auto) 0.4 Eos # (Auto) 0.4 Baso # (Auto) 0.1 Nucleated RBC % (a uto) 0 Nucleated RBCs # 0.0 Sodium 138 Potassium 3.5 Chloride 100 Carbon Dioxide 27 Anion Gap 14.5 BUN 13 Creatinine 1.0 H GFR Calculation 55.0 L Glucose 273 H POC Glucose 302 H Calculated Osmolal ity 296 H Calcium 8.4 L 03/23/21 03/23/21 16:49 11:24 WBC RBC Hgb Hct MCV MCH MCHC RDW Plt Count MPV Neut % (Auto) Lymph % (Auto) [place] % (Auto) Eos % (Auto) Baso % (Auto) Neut # (Auto) Lymph # (Auto) [place] # (Auto) Eos # (Auto) Baso # (Auto) Nucleated RBC % (a uto) Nucleated RBCs # Sodium Potassium Chloride Carbon Dioxide Anion Gap BUN Creatinine GFR Calculation Glucose POC Glucose 296 H 235 H Calculated Osmolal ity Calcium Vitals: Last Vital Signs Temp 98.1 F 03/24/21 07:14 Pulse 61 03/24/21 07:14 Resp 18 03/24/21 07:14 BP 151/73 03/24/21 07:14 Pulse Ox 95 03/24/21 07:14 Discharge Plan Discharge Patient Disposition: Home Condition: Stable Prescriptions: New Eliquis DVT-PE Treat 30D Start 5 mg (74 tabs) tablets,dose pack See Rx Instructions .ROUTE .COMPLEX Qty: 74 RF: 3 Continued carvedilol 25 mg Tablet 25 mg PO BID@0900,2100 30 Days Qty: 60 RF: 0 famotidine 20 mg Tablet 20 mg PO BID 30 Days Qty: 60 RF: 0 Lantus U-100 Insulin 100 unit/mL solution 40 unit SUBCUT BEDTIME RF: 0 aspirin 81 mg Tablet,Delayed Release (Dr/Ec) 81 mg PO QAM RF: 0 amlodipine 10 mg tablet 10 mg PO QAM RF: 0 metformin 1,000 mg tablet 1,000 mg PO BID RF: 0 losartan 100 mg tablet 100 mg PO QAM RF: 0 fenofibrate nanocrystallized 145 mg tablet 145 mg PO BEDTIME RF: 0 Jardiance 10 mg tablet 10 mg PO QAM RF: 0 ondansetron HCl [Zofran] 4 mg tablet 4 mg PO Q6H PRN (Reason: nausea and vomiting) Qty: 14 RF: 0 Discontinued hydralazine 25 mg Tablet 25 mg PO TID 30 Days Qty: 90 RF: 0 chlorthalidone 25 mg Tablet 25 mg PO DAILY 30 Days Qty: 30 RF: 0 clopidogrel 75 mg tablet 75 mg PO QAM RF: 0 Discharge Orders: Discharge Order (Routine); Ordered 03/24/21 Ordered By: Edwin Booth Referrals: Matthew Geller DO [Primary Care Provider] - 03/31/21 11:50 am Discharge Diet: Regular Discharge Activity: Resume usual activity Patient Instructions: Apixaban (By mouth) (Eliquis), Apixaban (By mouth), Pulmonary Embolism (DC), Hypokalemia (DC), Gastroenteritis (DC), Opioid Safety Discharge Attestations Time Spent in Discharge Care*: less than 30 min Specific Discharge Activities: educating patient, educating and/or supporting family/caregiver, discussing with pcp/other providers, discussing with adult protective caseworker/social workers/dc planners, documenting/other paperwork and evaluating patient/reviewing data Status at Discharge: Cognitive status at discharge: mildly impaired cognition , Behavioral status at discharge: cooperative , Quality Metrics Clinical Quality Measures During this hospital stay, did patient experience: None Coding Level of Care Code Acute Chg FW DC note Diagnoses Pulmonary embolism I26.99 Gastroenteritis K52.9 DM type 2 (diabetes mellitus, type 2) E11.9 HTN (hypertension) I10 Hypokalemia E87.6
[2021-03-24 10:51] VITALS: BP 146/78; PULSE 62; RESP 18; TEMP 36.4; O2SAT 93
[2021-03-24 11:43] VITALS: BP 146/78; PULSE 62; RESP 18; TEMP 36.4; O2SAT 93
[2021-03-24 11:46] LABS: Glucose Point of Care 253 mg/dL (70-110)
== END 2021-03-24 11:45 | disposition home or self-care (01) | DRG 176 ==
LOC: ER 16:17 → MEDSURG 19:16 → ER IP 03-23 09:41
PROVIDERS: Admitting Provider Internal Medicine; Emergency Provider Emergency Medicine; PCP Family Medicine; Visit Provider Internal Medicine
DX: I26.99 Other pulmonary embolism without acute cor pulmonale (principal); K52.9 Noninfective gastroenteritis and colitis, unspecified; E11.9 Type 2 diabetes mellitus without complications; I10 Essential (primary) hypertension; E87.6 Hypokalemia; Z79.4 Long term (current) use of insulin; Z79.82 Long term (current) use of aspirin; Z79.84 Long term (current) use of oral hypoglycemic drugs; Z99.81 Dependence on supplemental oxygen; E86.0 Dehydration; Z79.01 Long term (current) use of anticoagulants
CPT/HCPCS: 36415; 36416; 51702; 70450; 70496; 70498; 71045; 71275; 74177; 80048; 80053; 81001; 82962; 83605; 83690; 83735; 84484; 85007; 85025; 85027; 85378; 85730; 87635; 93005; 93970; 96361; 96372; 96374; 96375; 96376; 97116; 97162; 99285; J1650; J1815 ×2; J2405; J3490; J7030; Q9967

== ENCOUNTER 2021-04-11 11:25 | Observation (INO) | payer MEDICAID, SELFPAY ==
[2021-04-11] VITALS (10 sets, daily range): BP systolic 149–202; BP diastolic 68–98; PULSE 0–88; RESP 12–26; TEMP 36.6–36.9; O2SAT 94–99; BMI 33.3
--- NOTE | 2021-04-11 11:29 | ED_ITS ---
HPI - General Adult General: Chief complaint: Nausea/Vomiting/Diarrhea Stated complaint: N/V, WEAKNESS Time Seen by Provider: 04/11/21 11:29 History of Present Illness: HPI narrative: 70-year-old female presents to the emergency room with nausea vomiting and weakness. She is normally on 2 L by nasal cannula on arrival here notes several oxygen saturation dipping into the 80s turned up to 4 L with which she recovered well. She has a history of diabetes mellitus generalized not feeling well with nausea vomiting and weakness. States symptoms began approximately a week ago. She has a productive cough. Onset (ago): hour(s) Location: head Relieving factors: none Exacerbating factors: none Associated symptoms: Reports dyspnea, malaise, nausea, short of breath, vomiting and weakness; Deny chest pain, confusion, cough, diaphoresis, decreased appetite, fevers/c hills, headache(s), rash, palpitations, seizures or syncope Treatments prior to arrival: none Review of Systems Const: Reports: malaise; Denies: diaphoresis ENMT: Denies: throat pain, ear or mastoid pain, nasal discharge or nasal congestion Card: Denies: chest pain, palpitations or syncope Resp: Reports: dyspnea GI: Reports: nausea and vomiting : Denies: flank pain, difficulty voiding, dysuria, urinary frequency or urinary urgency Skin/Breast: Denies: rash Neuro: Denies: headache(s) or confusion PFSH ED PFSH: Medical History Arthritis Asthma Bilateral conjunctivitis Diarrhea DKA (diabetic ketoacidosis) DM type 2 (diabetes mellitus, type 2) Gastroenteritis HTN (hypertension) Hypertensive urgency Hypokalemia Left otitis media with spontaneous rupture of eardrum Nausea & vomiting Otitis externa Pulmonary embolism Small bowel mass Surgical History Hx of cholecystectomy Family History Other Cancer Stroke Social History Smoking and tobacco status: never smoked Alcohol intake: never Lives independently: Yes Household members: none Marital status: / Physical Exam Const: COMMON NORMALS: no acute distress GENERAL APPEARANCE: cooperative and comfortable ORIENTATION/CONSCIOUSNESS: Yes awake, Yes oriented to person, Yes oriented to place and Yes oriented to time HENMT: COMMON NORMALS: normocephalic, atraumatic and hearing grossly normal bilaterally HEAD & SCALP: normocephalic and atraumatic Eye: COMMON NORMALS: Equal, round and reactive pupils present, EOMs intact bilaterally, conjunctivae normal and no scleral icterus CONJUNCTIVA: Yes conjunctivae normal PUPIL: Yes Equal, round and reactive pupils present Neck/C-Spine: COMMON NORMALS: full ROM, no lymphadenopathy, supple and no JVD Lymph: LYMPHATIC: no lymphadenopathy noted and no lymphedema noted Resp: COMMON NORMALS: normal respiratory effort, No retractions, No use of accessory muscles and clear to auscultation bilaterally AUSCULTATION: clear to auscultation bilaterally Cardio: COMMON NORMALS: no JVD, regular rate, regular rhythm and No murmurs present (Cardio) RATE: regular rate RHYTHM: regular rhythm GI: COMMON NORMALS: Soft to palpation and No hepatosplenomegaly present AUSCULTATION: Yes normoactive bowel sounds PALPATION: Yes Soft to palpation, No Tenderness to palpation present (GI), No Guarding due to palpation present (GI) and Yes No hepatosplenomegaly present Extremity: COMMON NORMALS: normal to inspection, capillary refill normal, no clubbing, cyanosis or edema, no calf tenderness and no pedal edema Neuro: SENSORIUM/ORIENTATION: Yes oriented to person, Yes oriented to place and Yes oriented to time Skin: COMMON NORMALS: no rashes or lesions noted GENERAL SKIN EXAM: no rashes or lesions noted Course Vital Signs: Vital signs: Vital Signs Temperature 98.4 F 04/11/21 12:25 Pulse Rate 72 04/11/21 12:25 Respiratory Rate 20 H 04/11/21 12:25 Blood Pressure 186/75 04/11/21 12:25 Pulse Oximetry 99 04/11/21 12:25 MDM - General Adult MDM Narrative: Medical decision making narrative: Persistent nausea and vomiting with hypokalemia and a mild cystitis. Patient has persistent nausea even after fluids and antiemetics. Will place on observation she was complaining of shortness of breath on arrival and for a while needed an increased amount of oxygen but that resolved repeat CT of the chest shows previously known PE but nothing new. Discussed with hospitalist orders written. Lab Data: Labs: Lab Results 04/11/21 04/11/21 04/11/21 11:55 12:30 12:30 WBC 7.5 10^3/uL 10^3/ uL (4.0-10.0) RBC 4.06 10^6/uL L 10 ^6/uL (4.1-5.3) Hgb 12.0 g/dL g/dL (11.5-15.3) Hct 34.1 % L % (37.0-47.0) MCV 84.0 fl fl (81-99) MCH 29.6 pg pg (28.0-34.0) MCHC 35.2 g/dL g/dL (30.0-36.0) RDW 13.2 % % (12.1-15.1) Plt Count 303 10^3/cmm 10^3 /cmm (130-400) MPV 10.1 fL fL (7.4-10.4) Neut % (Auto) 82.9 % % Lymph % (Auto) 11.7 % % [place] % (Auto) 3.4 % % Eos % (Auto) 0.4 % % Baso % (Auto) 0.7 % % Neut # (Auto) 6.19 10^3/uL 10^3 /uL (1.8-7.7) Lymph # (Auto) 0.9 10^3/uL 10^3/ uL (0.8-4.8) [place] # (Auto) 0.3 10^3/uL 10^3/ uL (0.2-0.9) Eos # (Auto) 0.0 10^3/uL 10^3/ uL (0.0-0.8) Baso # (Auto) 0.1 10^3/uL 10^3/ uL (0.0-0.1) Nucleated RBC % (a uto) 0 % % Nucleated RBCs # 0.0 /100WBC /100W BC Specimen Type Arterial Sample Site Radial, right ABG pH 7.46 H (7.35-7.45) ABG pCO2 41.6 mmHg mmHg (35-45) ABG pO2 134.0 mmHg H mmHg (80.0-100.0) ABG HCO3 29.8 mmol/L H mmo l/L (22-26) ABG O2 Saturation 99.6 ABG Base Excess 5.5 mmol/L H mmol /L (-2.0-2.0) Stephen Test Pos A-a O2 Gradient 8.7 mmHg mmHg (5-10) Hematocrit 37.6 % % (37-47) Hgb O2 Saturation 98.1 % % (95-100) Carboxyhemoglobin 0.5 %THgb %THgb (0.4-20.1) Methemoglobin 0.9 % % (0.4-1.5) Total Hemoglobin 12.3 g/dL g/dL (12-16) Sodium 142.0 mmol/L mmol /L 140 mmol/L mmol/L (131-143) (136-145) Potassium 2.7 mmol/L L mmol /L 2.8 mmol/L L* mmo l/L (3.5-5.0) (3.5-5.1) Glucose 265.0 mg/dL H mg/ dL 248 mg/dL H mg/dL (70-115) (65-115) Ionized Calcium 1.1 mmol/L mmol/L (1.1-1.4) O2 Delivery Device Nc O2 Liters/Min 4.0 % % FiO2 36.0 % % Air Quality Engineer ID Ed Chloride 99 mmol/L mmol/L (98-107) Carbon Dioxide 24 mmol/L mmol/L (22-29) Anion Gap 19.8 H (5-19) BUN 9 mg/dL mg/dL (8-23) Creatinine 0.6 mg/dL mg/dL (0.5-0.9) GFR Calculation 99.1 mL/min mL/mi n (90-130) Calculated Osmolal ity 297 mOsm/kg H mOs m/kg (285-295) Calcium 9.0 mg/dL mg/dL (8.5-10.5) Total Bilirubin 0.3 mg/dL mg/dL (0.15-1.2) AST 10 U/L U/L (0-32) ALT 6 U/L U/L (0-33) Alkaline Phosphata se 49 IU/L IU/L (35-105) Troponin T Baselin e Troponin T 120 Min [place] Troponin T Total Protein 6.6 g/dL g/dL (6.6-8.7) Albumin 3.7 g/dL g/dL (3.5-5.2) Globulin 2.9 g/dL g/dL (1.3-4.6) Procalcitonin 0.08 ng/mL ng/mL (0-0.5) Urine Color Urine Appearance Urine pH Ur Specific Gravit y Urine Protein Urine Glucose (UA) Urine Ketones Urine Blood Urine Nitrate Urine Bilirubin Urine Urobilinogen Ur Leukocyte [place] ase Urine RBC Urine WBC Ur Squamous Epith Cells Amorphous Sediment Urine Bacteria Coronavirus 229E ( PCR) SARS-CoV-2 (PCR) 04/11/21 04/11/21 04/11/21 12:30 12:31 12:33 WBC RBC Hgb Hct MCV MCH MCHC RDW Plt Count MPV Neut % (Auto) Lymph % (Auto) [place] % (Auto) Eos % (Auto) Baso % (Auto) Neut # (Auto) Lymph # (Auto) [place] # (Auto) Eos # (Auto) Baso # (Auto) Nucleated RBC % (a uto) Nucleated RBCs # Specimen Type Sample Site ABG pH ABG pCO2 ABG pO2 ABG HCO3 ABG O2 Saturation ABG Base Excess Stephen Test A-a O2 Gradient Hematocrit Hgb O2 Saturation Carboxyhemoglobin Methemoglobin Total Hemoglobin Sodium Potassium Glucose Ionized Calcium O2 Delivery Device O2 Liters/Min FiO2 Air Quality Engineer ID Chloride Carbon Dioxide Anion Gap BUN Creatinine GFR Calculation Calculated Osmolal ity Calcium Total Bilirubin AST ALT Alkaline Phosphata se Troponin T Baselin e 10 ng/L ng/L (0-10) Troponin T 120 Min [place] Troponin T Total Protein Albumin Globulin Procalcitonin Urine Color Yellow (Yellow) Urine Appearance Sl hazy (CLEAR) Urine pH 7 (5-7) Ur Specific Gravit y 1.010 (1.005-1.030) Urine Protein 3+ H (Negative) Urine Glucose (UA) 2+ H (Normal) Urine Ketones 1+ H (Negative) Urine Blood Neg (Negative) Urine Nitrate Positive H (Negative) Urine Bilirubin Neg (Negative) Urine Urobilinogen Norm mg/dL mg/dL (Negative) Ur Leukocyte [place] ase Trace H (Negative) Urine RBC None /hpf /hpf (0-2) Urine WBC 15-25 /hpf H /hpf (0-5) Ur Squamous Epith Cells None /hpf /hpf (0-5) Amorphous Sediment Not Reportable Urine Bacteria 3+ /hpf H /hpf (NONE) Coronavirus 229E ( PCR) Not detected (NOT DETECT) SARS-CoV-2 (PCR) Not detected (NOT DETECT) 04/11/21 15:03 WBC RBC Hgb Hct MCV MCH MCHC RDW Plt Count MPV Neut % (Auto) Lymph % (Auto) [place] % (Auto) Eos % (Auto) Baso % (Auto) Neut # (Auto) Lymph # (Auto) [place] # (Auto) Eos # (Auto) Baso # (Auto) Nucleated RBC % (a uto) Nucleated RBCs # Specimen Type Sample Site ABG pH ABG pCO2 ABG pO2 ABG HCO3 ABG O2 Saturation ABG Base Excess Stephen Test A-a O2 Gradient Hematocrit Hgb O2 Saturation Carboxyhemoglobin Methemoglobin Total Hemoglobin Sodium Potassium Glucose Ionized Calcium O2 Delivery Device O2 Liters/Min FiO2 Air Quality Engineer ID Chloride Carbon Dioxide Anion Gap BUN Creatinine GFR Calculation Calculated Osmolal ity Calcium Total Bilirubin AST ALT Alkaline Phosphata se Troponin T Baselin e Troponin T 120 Min [place] 9.95 ng/L ng/L (0-10) [place] Troponin T -0.05 ABS# L ABS# (0-10) Total Protein Albumin Globulin Procalcitonin Urine Color Urine Appearance Urine pH Ur Specific Gravit y Urine Protein Urine Glucose (UA) Urine Ketones Urine Blood Urine Nitrate Urine Bilirubin Urine Urobilinogen Ur Leukocyte [place] ase Urine RBC Urine WBC Ur Squamous Epith Cells Amorphous Sediment Urine Bacteria Coronavirus 229E ( PCR) SARS-CoV-2 (PCR) Discharge Plan Discharge Patient Disposition: Placed in Observation Admit Provider: Maru Morris Clinical Impression: Nausea & vomiting, Hypokalemia Coding Level of Care Code ED Information Systems Director for [facility] Fwd Exam Comprehensive
--- NOTE | 2021-04-11 11:41 | ECG_ITS ---
[facility] Test Date: 2021-04-11 Pat Name: Lady López Department: Room: Gender: Female Statuary Painter: : 1950 Requested By: Raheem Sommers Order Number: [id number] Kelby MD: Mckinley Stark M.D. Measurements Intervals [place] Rate: 74 P: 40 VA: 164 QRS: -40 QRSD: 103 T: 123 QT: 436 QTc: 484 Interpretive Statements SINUS RHYTHM SEPTAL MYOCARDIAL INFARCTION , PROBABLY OLD [40+ ms Q WAVE IN V1/V2] INFERIOR MYOCARDIAL INFARCTION , PROBABLY OLD [40+ ms Q WAVE AND/OR ST/T ABNORMALITY IN II/aVF] MODERATE T-WAVE ABNORMALITY, CONSIDER LATERAL ISCHEMIA [-0.1+ mV T-WAVE IN I/aVL/V5/V6] INTERPRETATION BASED ON A DEFAULT AGE OF 40 YEARS Compared to ECG 03/22/2021 13:44:02 T-wave abnormality now present Possible ischemia now present Myocardial infarct finding still present Electronically Signed On 04-11-2021 23:54:16 LIME SUPERVISOR by Mckinley Stark M.D. [id number] cool
[2021-04-11 12:05] LABS: ABG PCO2 41.6 mmHg (35-45); ABG PH Result 7.46 (7.35-7.45); Alveolar-Arterial Oxygen Gradi 8.7 mmHg (5-10); Arterial Blood Gas Hematocrit 37.6 % (37-47); Base Excess ABG 5.5 mmol/L (-2.0-2.0); Blood Gas Allen Test Pos; Blood Gas Operator Identificat ED; Blood Gas Sample Site Radial, right; Blood Gas Sample Type Arterial; Carboxyhemoglobin 0.5 %THgb (0.4-20.1); HCO3 ABG 29.8 mmol/L (22-26); HGB O2 Sat 98.1 % (95-100); Ionized Calcium Level - ABG 1.1 mmol/L (1.1-1.4); Methemoglobin 0.9 % (0.4-1.5); Oxygen Device NC; Oxygen Saturation ABG 99.6; Potassium Level - ABG 2.7 mmol/L (3.5-5.0); Total Hemoglobin 12.3 g/dL (12-16)
[2021-04-11 12:45] LABS: Basophils # 0.1 10^3/uL (0.0-0.1); Basophils % 0.7 %; Eosinophils % 0.4 %; Hematocrit 34.1 % (37.0-47.0); Lymphocytes # 0.9 10^3/uL (0.8-4.8); Lymphocytes % 11.7 %; Mean Corpuscular HGB Conc 35.2 g/dL (30.0-36.0); Mean Corpuscular Hemoglobin 29.6 pg (28.0-34.0); Mean Platelet Volume 10.1 fL (7.4-10.4); Monocytes # 0.3 10^3/uL (0.2-0.9); Monocytes % 3.4 %; Neutrophils # 6.19 10^3/uL (1.8-7.7); Neutrophils % 82.9 %; Nucleated Red Blood Cells % 0 %; Platelet Count 303 10^3/cmm (130-400); Red Blood Count 4.06 10^6/uL (4.1-5.3); Red Cell Distribution Width 13.2 % (12.1-15.1); White Blood Count 7.5 10^3/uL (4.0-10.0)
[2021-04-11 13:01] LABS: Bilirubin Urine Neg (Negative); Blood Urine Neg (Negative); Glucose Urine UA 2+ (Normal); Ketones Urine 1+ (Negative); Nitrate Urine Positive (Negative); Protein Urine 3+ (Negative); Urine Appearance SL Hazy (CLEAR); Urine Color Yellow (Yellow); Urobilinogen Urine Norm (Negative); pH Urine 7 (5-7)
[2021-04-11 13:02] LABS: Add Urine Microscopic? YES; Leukocyte Esterase Urine Trace (Negative)
[2021-04-11 13:04] LABS: Add Urine Culture? Yes; Bacteria Urine 3+ /hpf; WBC Urine 15-25 /hpf (0-5)
[2021-04-11 13:05] LABS: Troponin(5th) Baseline 10 ng/L (0-10)
[2021-04-11 13:06] LABS: Alanine Aminotransferase 6 U/L (0-33); Albumin Level 3.7 g/dL (3.5-5.2); Alkaline Phosphatase 49 IU/L (35-105); Anion Gap 19.8 (5-19); Aspartate Amino Transferase 10 U/L (0-32); Blood Urea Nitrogen 9 mg/dL (8-23); Carbon Dioxide 24 mmol/L (22-29); Chloride 99 mmol/L (98-107); Globulin 2.9 g/dL (1.3-4.6); Glomerular Filtration Rate 99.1 mL/min (90-130); Glucose 248 mg/dL (65-115); Osmolality Calculated 297 mOsm/kg (285-295); Sodium 140 mmol/L (136-145); Total Bilirubin 0.3 mg/dL (0.15-1.2); Total Protein 6.6 g/dL (6.6-8.7)
[2021-04-11 13:10] LABS: Potassium 2.8 mmol/L (3.5-5.1)
[2021-04-11 13:13] LABS: Procalcitonin 0.08 ng/mL (0-0.5)
--- NOTE | 2021-04-11 13:41 | ECG_ITS ---
[facility] Test Date: 2021-04-11 Pat Name: aLdy López Department: Room: Gender: Female Customer Experience Intern: : 1950 Requested By: Raheem Sommers Order Number: [id number] Kelby MD: María Elena Baker M.D. Measurements Intervals [place] Rate: 70 P: 63 CO: 167 QRS: -27 QRSD: 89 T: 137 QT: 402 QTc: 435 Interpretive Statements SINUS RHYTHM POSSIBLE ANTERIOR MYOCARDIAL INFARCTION , PROBABLY OLD [30 ms Q WAVE IN V3/V4, OR R < 0.2 mV IN V4] MODERATE T-WAVE ABNORMALITY, CONSIDER LATERAL ISCHEMIA [-0.1+ mV T-WAVE IN I/aVL/V5/V6] Compared to ECG 04/11/2021 12:25:48 No significant changes Electronically Signed On 04-12-2021 17:29:46 FORMAT PROOFREADER by María Elena Baker M.D. [id number]
[2021-04-11] MEDS: lidocaine 1% 5 ML in potassium chloride premix 100 ML 25 ML IV ×2 (14:04→18:21)
--- NOTE | 2021-04-11 14:21 | PC.PHAR ---
Addendum entered by Poppy López 04/11/21 14:24: pts med list from [facility] is not updated has meds that have been dced after being discharged Original Note: pt unable to verify medications-medications entered are what the pharmacy has filled recently and what was on the discharge papers from 03/24/21-plavix dced on discharge papers on 03/24/21-[facility] states they are still setting up this medication in the pts med senior program planner 75mg daily-ext med history shows last filled 03/09/21 30d/s-rx filled and picked up on 03/30/21 for eliquis 10mg bid for 7 days then 5mg bid -[facility] states they last saw pt 04/04/21 and states they didnt set this medication up for the pt-notes are made in the pharmacy comments
--- NOTE | 2021-04-11 14:26 | CT_ITS ---
WS: [id number] CT CHEST ANGIOGRAPHY WITH REFORMATS HISTORY: hypoxia TECHNIQUE: Contiguous axial images are obtained through the chest during arterial injection of intrav enous contrast. Images are reconstructed to evaluate the pulmonary arteries. MIP imaging also reviewe d. All CT scans at [facility] use at least one of these dose optimization techniques: automat ed exposure control; mA and/or kV adjustment per patient size (includes targeted exams where dose is matched to clinical indication); or iterative reconstruction. CONTRAST: Omnipaque 350; 68 mL IV. DLP: 589.84 mGy.cm COMPARISON: 03/22/2021 and 02/28/2021 and 02/27/2021 Good opacification of the pulmonary arteries. Persistent nonocclusive filling defects are still prese nt. The most obvious defect in the RIGHT middle lobe artery. These are segmental filling defects. Opa cification in the lower lobe pulmonary arteries is suboptimal but I do believe there are probably sma ll nonocclusive subsegmental filling defects also present. Again noted is subsegmental atelectasis involving a small portion of the medial LEFT upper lobe. The extent of atelectasis has improved since 03/08/2021. Cause of the subsegmental atelectasis is not malcik dent. Prior granulomatous disease. Mild progression of the mediastinal and hilar lymphadenopathy. Prevascular lymph node has increased i n size now measuring 12 mm in short axis diameter. The number and size of the lymph nodes has overall become slightly more prominent. Subcarinal lymph node measures 11 mm. Heart is moderately enlarged. Small hiatal hernia. No adrenal mass. Splenic granulomata. CT/CT angio chest PE protcl [id number] IMPRESSION: 1. Nonocclusive segmental RIGHT middle lobe pulmonary emboli. Cannot exclude s maller pulmonary emboli in the distal branches the lower lobes bilaterally. 2. Subsegmental atelectasis medial LEFT upper lobe is unchanged. 3. Mild progression in the mediastinal and hilar lymph nodes. Probably reactiv e. No history of malignancy.
--- NOTE | 2021-04-11 14:28 | XR_ITS ---
WS: [id number] Portable AP upright chest, 04/11/2021 Clinical Data: dyspnea/cough Comparison: Portable chest, 03/22/2021. Findings: No nodules, masses or effusions are seen. The heart is normal. The pulmonary vascularity is not increased. No pneumonia or pneumothorax is seen. There is a minimal left upper lobe opacity whic h has the appearance of atelectasis. The aortic arch and descending thoracic aorta show calcification and tortuosity. Monitor leads are on the chest wall. XR/XR chest 1V portable [id number] Impression: Atherosclerosis.
[2021-04-11 14:35] LABS: Adenovirus Not Detected (NOT DETECT); Chlamydia Pneumoniae Not Detected (NOT DETECT); Coronavirus 229E,HKU1,NL63,OC4 Not Detected (NOT DETECT); Human Metapneumovirus Not Detected (NOT DETECT); Human Rhinovirus/Enterovirus Not Detected (NOT DETECT); Influenza A Not Detected (NOT DETECT); Influenza A H1 Not Detected (NOT DETECT); Influenza A H1-2009 Not Detected (NOT DETECT); Influenza A H3 Not Detected (NOT DETECT); Influenza B Not Detected (NOT DETECT); Mycoplasma Pneumoniae Not Detected (NOT DETECT); Parainfluenza Virus Type 1 Not Detected (NOT DETECT); Parainfluenza Virus Type 2 Not Detected (NOT DETECT); Parainfluenza Virus Type 3 Not Detected (NOT DETECT); Parainfluenza Virus Type 4 Not Detected (NOT DETECT); Respiratory Syncytial Virus A Not Detected (NOT DETECT); Respiratory Syncytial Virus B Not Detected (NOT DETECT); SARS-COV-2 Not Detected (NOT DETECT)
[2021-04-11] MEDS: iohexol 350 mg/mL 100 mL Btl IV (15:22)
[2021-04-11] MEDS: cefTRIAXone 1,000 MG in sodium chloride 0.9% (plus) 50 ML 100 MG IV (15:28)
[2021-04-11] MEDS: sodium chloride 0.9% 500 ML 999 ML IV (15:29)
[2021-04-11] MEDS: ondansetron 2 mg/ML SDV 2 mL 4 MG IVP (15:35)
--- NOTE | 2021-04-11 15:38 | PC.NURSE ---
while at bedside pt is in nad. pt provided with nausea medication for vomiting.
[2021-04-11 16:20] LABS: Troponin 5 2HR 9.95 ng/L (0-10)
[2021-04-11 16:21] LABS: Troponin 5 2HR Delta -0.05 ABS# (0-10)
--- NOTE | 2021-04-11 16:23 | PC.NURSE ---
UPON ROUNDING ON PT REQUESTED BLANKETS, PT NEEDED NOTHING FURTHER. PT IS RESTING QUIETLY.
--- NOTE | 2021-04-11 19:07 | PC.NURSE ---
REPORT GIVEN TO [facility].
[2021-04-11 19:14] LABS: Troponin 5 6HR 10.72 ng/L (0-10); Troponin 5 6HR Delta 0.72 ng/L (0-12)
[2021-04-11] MEDS: labetalol 5 mg/mL SDV 20mL 10 MG IVP (20:35)
--- NOTE | 2021-04-11 22:16 | XR_ITS ---
WS: [id number], AP supine, 04/11/2021 Clinical Data: evaluate for SBO, recurrent nausea, vomiting Comparison: Acute abdomen series, 09/17/2012. Findings: No abnormal intraabdominal masses or calcifications are seen. There is no dilatated small bowel or ev idence of obstruction. There is contrast material in the bladder from a recent CT scan. There is scattered air in small brittni l and colon. There is a monitor lead on the right side of the abdomen. XR/XR abdomen 1V* [id number] Impression: Mild generalized ileus.
--- NOTE | 2021-04-11 22:19 | P.HP_ITS ---
Providers/Chief Complaint Admitting Physician: Maru Morris MD Primary Care Provider: Matthew Geller DO Chief Complaint: N/V, WEAKNESS History of Present Illness Lady López is a 70 year old female with PMH of HTN, DM recently discharged after being admitted here for PE, discharged on a/c with Eliquis and ASA. Her antihypertensives were changed with discontinutaion of hydralazine and chlorthalidone. Rteurns to the ER today with c/o intractable nausea, vomiting, intermittent diarrhea since 3 AM last night. Review of past records from Feb and Mar show that patient had similar complaints at that time. Has had CT abdomen in Feb which showed a possible jejunal mass with concern for possible obstruction however obstruction eventually ruled out. Followed up as outpatient with Dr. Perez- findings not seen on repeat Ct from Mar. No further w/up recommended per patient. Returns today with recurrent nausea, vomiting, unable to tolerate po intake and hypokalemia. Initially had increased 02 requirement at 5lpm, now back at 2lpm on which she was discharged. Review of Systems General: Reports: 10 or more systems reviewed and unremarkable except in HPI and below Const: Denies: fever(s), chills or body aches Eyes: Denies: change in vision, blurry vision or photophobia ENMT: Reports: hoarseness; Denies: throat pain, enlarged tonsils, odynophagia or nasal congestion Card: Denies: chest pain, palpitations, irregular heart rhythm, edema, swelling of feet/ankles, lightheadedness, pre-syncope, dyspnea on exertion or orthopnea Resp: Denies: dyspnea, productive cough, non-productive cough, wheezing, stridor, pain on inspiration, change in phlegm color, hemoptysis or chest congestion GI: Denies: abdominal pain, nausea, vomiting, hematemesis, coffee ground emesis, dysphagia, heartburn, diarrhea, constipation, GI cramping, change in stool character, hematochezia or melena : Denies: flank pain, difficulty voiding, dysuria, urinary frequency, urinary urgency, urinary hesitancy or hematuria Musc: Denies: neck pain, back pain, extremity pain, joint swelling, joint warmth or deformity Neuro: Denies: headache(s), numbness in extremities, weakness in extremities, sensory changes, difficulty walking, frequent falls, dizziness, vertigo, behavioral changes, Slurred speech present or seizure-like activity Psych: Denies: anxiety, depression, suicidal ideation or homicidal ideation Endo: Denies: polyuria, polydipsia, tired all the time, cold intolerance or hot flashes Ervin/Lymph: Denies: easy bruising or easy bleeding Medications/Allergies Home Medications Medication Instructions Recorded Confirmed Last Taken Type Jardiance 10 mg PO QAM 02/22/21 04/11/21 03/21/21 08:00 History Lantus U-100 Insulin 40 unit SUBCUT BEDTIME 02/22/21 04/11/21 03/21/21 21:00 History amlodipine 10 mg PO QAM 02/22/21 04/11/21 03/21/21 08:00 History aspirin 81 mg PO QAM 02/22/21 04/11/21 03/21/21 08:00 History fenofibrate nanocrystallized 145 mg PO BEDTIME 02/22/21 04/11/21 03/21/21 21:00 History losartan 100 mg PO QAM 02/22/21 04/11/21 03/21/21 08:00 History metformin 1,000 mg PO BID 02/22/21 04/11/21 03/21/21 21:00 History ondansetron HCl [Zofran] 4 mg PO Q6H PRN #14 tab 02/22/21 04/11/21 Unknown Rx apixaban [Eliquis DVT-PE Treat 30D See Rx Instructions .ROUTE .COMPLEX 04/11/21 04/11/21 Unknown History Start] clopidogrel [Plavix] See Rx Instructions .ROUTE .COMPLEX 04/11/21 04/11/21 Unknown History Allergies Allergy/AdvReac Type Severity Reaction Status Date / Time codeine Allergy ADR-Diarrhe Verified 02/24/21 15:03 a tetanus and diphtheria Allergy Unknown Verified 02/24/21 15:03 toxoids PFSH Acute PFSH: Medical History Arthritis Asthma Bilateral conjunctivitis Diarrhea DKA (diabetic ketoacidosis) DM type 2 (diabetes mellitus, type 2) Gastroenteritis HTN (hypertension) Hypertensive urgency Hypokalemia Left otitis media with spontaneous rupture of eardrum Nausea & vomiting Otitis externa Pulmonary embolism Small bowel mass Surgical History Hx of cholecystectomy Family History Other Cancer Stroke Social History Smoking and tobacco status: never smoked Alcohol intake: never Lives independently: Yes Household members: none Marital status: / Vitals/I&O/Wt Last Vital Signs Temp 98.4 F 04/11/21 12:25 Pulse 72 04/11/21 19:00 Resp 19 H 04/11/21 19:00 BP 183/98 04/11/21 19:00 Pulse Ox 99 04/11/21 19:00 04/11/21 04/11/21 04/11/21 06:59 14:59 22:59 Intake Total 655 / 655 Balance 655 / 655 Weight last 48 hrs Weight 90.718 kg Physical Exam Narrative: EXAM NARRATIVE: General: No acute distress, AO x3 HEENT: PERRLA, pupils bilaterally equal and reactive, pallors not present Chest: Normal vesicular breath sounds, no added sounds, equal good air entry bilaterally CVS: S1-S2 regular, no murmurs, no tachycardia, no gallops, no rubs Abdomen: Soft, nontender, no organomegaly, bowel sounds present Neuro: No focal deficits, no facial deformity, AO x3, power 5/5 in all limbs Extremities: no edema, clubbing or cyanosis Data : 04/11/21 12:30 04/11/21 12:30 Micro: Microbiology 04/11/21 15:03 Blood Culture - Preliminary Blood SPECIMEN COLLECTED 04/11/21 12:30 Blood Culture - Preliminary Blood SPECIMEN COLLECTED A&P Assessment and plan (1) Nausea & vomiting: intractable nausea and vomiting Unclear cause at this time recent w/up with CT findings as above Ct head without masses Currently with UTI, no signs or symptoms of pyelonephritis check abdomen X ray, lipase NPo for now until imaging available May need endoscopy if symptoms persisting, holding eleiquis for the same Status: Acute (2) Hypokalemia: replete iv Status: Acute (3) Hypertensive urgency: continue amlodipien and losartan add hydralazine prn trop series negative currently Status: Acute Attestations Medical Necessity Statement*: observation admission for intractable nausea, inability to tolerate po intake Coding Level of Care Code Acute Head Operator Sulfide for Chg Fwd Diagnoses Nausea & vomiting R11.2 Hypokalemia E87.6 Hypertensive urgency I16.0
[2021-04-11 23:13] LABS: Glucose Point of Care 348 mg/dL (70-110)
[2021-04-11] MEDS: cloNIDine 0.1 mg Tablet PO (23:45)
[2021-04-11] MEDS: insulin lispro 100 unit/1 mL SUBCUT (23:46)
[2021-04-12 05:31] VITALS: BP 171/71; PULSE 65; RESP 16; TEMP 36.7; O2SAT 99
[2021-04-12 06:07] VITALS: BP 171/71
[2021-04-12] MEDS: amlodipine 10 mg Tablet PO (06:07)
[2021-04-12] MEDS: losartan 50 mg Tablet 100 MG PO (06:07)
[2021-04-12 06:19] LABS: Basophils % 0.5 %; Eosinophils # 0.1 10^3/uL (0.0-0.8); Eosinophils % 1.2 %; Hematocrit 32.6 % (37.0-47.0); Lymphocytes # 1.3 10^3/uL (0.8-4.8); Mean Corpuscular HGB Conc 33.7 g/dL (30.0-36.0); Mean Corpuscular Hemoglobin 29.3 pg (28.0-34.0); Mean Corpuscular Volume 86.7 fl (81-99); Mean Platelet Volume 10.2 fL (7.4-10.4); Monocytes # 0.5 10^3/uL (0.2-0.9); Monocytes % 5.6 %; Neutrophils # 6.69 10^3/uL (1.8-7.7); Nucleated Red Blood Cells % 0 %; Platelet Count 295 10^3/cmm (130-400); Red Blood Count 3.76 10^6/uL (4.1-5.3); Red Cell Distribution Width 13.4 % (12.1-15.1); White Blood Count 8.7 10^3/uL (4.0-10.0)
[2021-04-12 06:48] LABS: Alanine Aminotransferase < 5 U/L (0-33); Albumin Level 3.5 g/dL (3.5-5.2); Alkaline Phosphatase 57 IU/L (35-105); Anion Gap 14.3 (5-19); Aspartate Amino Transferase 8 U/L (0-32); Blood Urea Nitrogen 10 mg/dL (8-23); Calcium 7.9 mg/dL (8.5-10.5); Carbon Dioxide 27 mmol/L (22-29); Chloride 101 mmol/L (98-107); Globulin 2.3 g/dL (1.3-4.6); Glomerular Filtration Rate 71.1 mL/min (90-130); Glucose 256 mg/dL (65-115); Lipase 26 U/L (13-60); NT Pro B Type Natriuretic Pept 423 pg/mL (0-125); Osmolality Calculated 296 mOsm/kg (285-295); Potassium 3.3 mmol/L (3.5-5.1); Sodium 139 mmol/L (136-145); Total Bilirubin 0.2 mg/dL (0.15-1.2); Total Protein 5.8 g/dL (6.6-8.7)
[2021-04-12 07:10] LABS: Glucose Point of Care 328 mg/dL (70-110)
[2021-04-12 08:00] VITALS: BP 172/81; PULSE 78; RESP 18; TEMP 36.7; O2SAT 94
[2021-04-12] MEDS: insulin lispro 100 unit/1 mL SUBCUT ×2 (08:12→11:17)
[2021-04-12] MEDS: pantoprazole DR 40 mg Tablet PO (08:13)
[2021-04-12] MEDS: cloNIDine 0.1 mg Tablet PO (08:13)
[2021-04-12 09:18] VITALS: PULSE 73; O2SAT 99
--- NOTE | 2021-04-12 10:30 | PC.CHAP ---
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 [] Patient/Family/Request visit [] Outpatient visit [] Follow-up visit [] Physician referral [] Code/Alert [x] Routine visit [] Staff referral [] Actively dying [] Patient sleeping [] Family support [] [] Out of room [] Palliative care [] [] Receiving care in room [] Pre-surgical visit [] Trauma [] Long length of stay [] ICU visit [] Other: Relational/Emotional Strength [x] Patient feels connected with others/family/visitors/staff [] Distress [] Loneliness/isolation [] Abandonment Spirituality of Patient [x] Person of Tanja [] Attends Pentecostalism of their Tanja [x] Believes in Prayer [] Reads Bible or Congregation materials [] There are Spiritual issues to be addressed Music Theory Teacher Interventions [x] Prayer [x] Active listening [x] Non-anxious presence [x] Spiritual/emotional support [] Crisis/trauma care [] Spiritual counseling [] Bereavement support [] Provided bereavement packet [] Provided Bible/devotional materials [] Provided toy/stuffed animal, coloring book to patient or family member [] Provided Communion [] Anointing/[place] [] Salvation [x] Completed spiritual assessment [] Other: Impact on Illness or Injury [] Angry [] Fearful [] Anxious [] Often cries [] Exhaustion [] Unable to work [] Unable to attend synagogue [] Unable to walk/stand [] Unable to read [] Unable to drive [] Unable to eat/drink [] Unable to sleep [] Unable to be with family [] Patient intubated [] Other: Summary Pt came in through the ER yesterday and is hoping to go home today. She is worried about her cat and has no one to take care of it. She said her crystal calibrator would normally take care of it for her, but she was diagnosed with Covid yesterday so will be unavailable for a little while. Pt has two sons but one just had a baby and is concerned he might take something back home to his child if he goes to her apartment. She said the other son will not go up that high . [place] on the [place] [facility]. Pt commented she has taken care of things herself for 7 years and she told her sons she would take care of this also, they need not worry about her. 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 Music Theory Teacher asked if she was a person of tanja. She responded she is but does not attend a synagogue service. There seemed to be some resistance in this area being explored so spoke with her about other things. Prayer was offered and accepted. Time spent with patient
[2021-04-12 11:27] LABS: Glucose Point of Care 379 mg/dL (70-110)
[2021-04-12 11:45] VITALS: BP 164/78; PULSE 85; RESP 18; O2SAT 94
--- NOTE | 2021-04-12 13:32 | PM.DCS ---
Discharge Providers Date of Admission: 04/11/21 15:39 Date of Discharge: April 12, 2021 Attending Provider at Admission: Maru Morris MD Attending Provider at Discharge: Maru Morris MD Primary Care Provider: Matthew Geller DO Diagnoses at Discharge Discharge Diagnosis (1) Nausea & vomiting: Status: Acute (2) Hypokalemia: Status: Acute (3) Hypertensive urgency: Status: Acute Reason for Visit Reason for Visit: N/V, WEAKNESS Hospital Course Hospital Course Lady López is a 70 year old female with PMH of HTN, DM recently discharged after being admitted here for PE, discharged on a/c with Eliquis and ASA. Her antihypertensives were changed with discontinutaion of hydralazine and chlorthalidonE on last visit. Returnedto the ER today with c/o intractable nausea, vomiting, intermittent diarrhea since 3 AM last night. Review of past records from Feb and Mar show that patient had similar complaints at that time. Has had CT abdomen in Feb which showed a possible jejunal mass with concern for possible obstruction however obstruction eventually ruled out. Followed up as outpatient with Dr. Perez- findings not seen on repeat Ct from Mar. No further w/up recommended per patient. Returns today with recurrent nausea, vomiting, unable to tolerate po intake and hypokalemia. Initially had increased 02 requirement at 5lpm, now back at 2lpm on which she was discharged after her recent diagnosis of PE. X-ray of her abdomen showed mild generalized ileus. CTA of her chest showed unchanged pulmonary embolism for which she is already on treatment. She states feeling significantly improved today on exam. She is passing flatus has had a small bowel movement this morning. He is able to tolerate p.o. intake. No further episodes of nausea and vomiting. She is eager to return home this afternoon. Recommended outpatient follow-up with general surgery. UA returned positive, preliminary urine culture is growing gram-negative rods, awaiting identification. We will discharge her on a short course of oral levofloxacin for the same. Denies any current symptoms of dysuria. She is tolerating regular diet at the time of discharge. Hydralazine has been resumed since patient's blood pressure ranged between 1 60-200 systolic during the course of admission. At the time of discharge her blood pressure is 154/78 mmHg. Physical Exam Narrative: EXAM NARRATIVE: GEN: Awake, alert and oriented, no acute distress , CVS: S1S2 N RS: CTA B/L Abd: Soft, nt/nd , bs+ BLOOD BANK CALENDAR CONTROL CLERK: no focal neuro deficits Discharge Data Studies Completed and Pending Completed Studies During Hospitalization Category Date Time Status CT angio chest PE protcl [id number] Stat Cat Scan 04/11/21 14:26 Completed XR abdomen 1V* [id number] Routine Exams 04/11/21 22:16 Completed XR chest 1V portable [id number] Stat Exams 04/11/21 14:28 Completed Pending at discharge Category Date Time Status Blood Culture Stat Lab 04/11/21 15:03 Results Sputum Culture and Gram Stain Stat Lab 04/11/21 14:06 Received Urine Culture Stat Lab 04/11/21 12:31 Results Radiology Impressions Chest CTA 04/11/21 14:26 IMPRESSION: 1. Nonocclusive segmental RIGHT middle lobe pulmonary emboli. Cannot exclude smaller pulmonary emboli in the distal branches the lower lobes bilaterally. 2. Subsegmental atelectasis medial LEFT upper lobe is unchanged. 3. Mild progression in the mediastinal and hilar lymph nodes. Probably reactive. No history of malignancy. Chest X-Ray 04/11/21 14:28 Impression: Atherosclerosis. Abdomen X-Ray 04/11/21 22:16 Impression: Mild generalized ileus. Laboratory Results WBC 8.7 10^3/uL (4.0-10.0) 04/12/21 04:38 RBC 3.76 10^6/uL (4.1-5.3) L 04/12/21 04:38 Hgb 11.0 g/dL (11.5-15.3) L 04/12/21 04:38 Hct 32.6 % (37.0-47.0) L 04/12/21 04:38 MCV 86.7 fl (81-99) 04/12/21 04:38 MCH 29.3 pg (28.0-34.0) 04/12/21 04:38 MCHC 33.7 g/dL (30.0-36.0) 04/12/21 04:38 RDW 13.4 % (12.1-15.1) 04/12/21 04:38 Plt Count 295 10^3/cmm (130-400) 04/12/21 04:38 MPV 10.2 fL (7.4-10.4) 04/12/21 04:38 Neut % (Auto) 77.0 % 04/12/21 04:38 Lymph % (Auto) 15.0 % 04/12/21 04:38 [place] % (Auto) 5.6 % 04/12/21 04:38 Eos % (Auto) 1.2 % 04/12/21 04:38 Baso % (Auto) 0.5 % 04/12/21 04:38 Neut # (Auto) 6.69 10^3/uL (1.8-7.7) 04/12/21 04:38 Lymph # (Auto) 1.3 10^3/uL (0.8-4.8) 04/12/21 04:38 [place] # (Auto) 0.5 10^3/uL (0.2-0.9) 04/12/21 04:38 Eos # (Auto) 0.1 10^3/uL (0.0-0.8) 04/12/21 04:38 Baso # (Auto) 0.0 10^3/uL (0.0-0.1) 04/12/21 04:38 Nucleated RBC % (auto) 0 % 04/12/21 04:38 Nucleated RBCs # 0.0 /100WBC 04/12/21 04:38 Specimen Type Arterial 04/11/21 11:55 Sample Site Radial, right 04/11/21 11:55 ABG pH 7.46 (7.35-7.45) H 04/11/21 11:55 ABG pCO2 41.6 mmHg (35-45) 04/11/21 11:55 ABG pO2 134.0 mmHg (80.0-100.0) H 04/11/21 11:55 ABG HCO3 29.8 mmol/L (22-26) H 04/11/21 11:55 ABG O2 Saturation 99.6 04/11/21 11:55 ABG Base Excess 5.5 mmol/L (-2.0-2.0) H 04/11/21 11:55 Stephen Test Pos 04/11/21 11:55 A-a O2 Gradient 8.7 mmHg (5-10) 04/11/21 11:55 Hematocrit 37.6 % (37-47) 04/11/21 11:55 Hgb O2 Saturation 98.1 % (95-100) 04/11/21 11:55 Carboxyhemoglobin 0.5 %THgb (0.4-20.1) 04/11/21 11:55 Methemoglobin 0.9 % (0.4-1.5) 04/11/21 11:55 Total Hemoglobin 12.3 g/dL (12-16) 04/11/21 11:55 Sodium 142.0 mmol/L (131-143) 04/11/21 11:55 Potassium 2.7 mmol/L (3.5-5.0) L 04/11/21 11:55 Glucose 265.0 mg/dL (70-115) H 04/11/21 11:55 Ionized Calcium 1.1 mmol/L (1.1-1.4) 04/11/21 11:55 O2 Delivery Device Nc 04/11/21 11:55 O2 Liters/Min 4.0 % 04/11/21 11:55 FiO2 36.0 % 04/11/21 11:55 Clinical Rehabilitation Aide ID Ed 04/11/21 11:55 Sodium 139 mmol/L (136-145) 04/12/21 04:38 Potassium 3.3 mmol/L (3.5-5.1) L 04/12/21 04:38 Chloride 101 mmol/L (98-107) 04/12/21 04:38 Carbon Dioxide 27 mmol/L (22-29) 04/12/21 04:38 Anion Gap 14.3 (5-19) 04/12/21 04:38 BUN 10 mg/dL (8-23) 04/12/21 04:38 Creatinine 0.8 mg/dL (0.5-0.9) 04/12/21 04:38 GFR Calculation 71.1 mL/min (90-130) L 04/12/21 04:38 Glucose 256 mg/dL (65-115) H 04/12/21 04:38 POC Glucose 379 mg/dL (70-110) H 04/12/21 11:07 Calculated Osmolality 296 mOsm/kg (285-295) H 04/12/21 04:38 Calcium 7.9 mg/dL (8.5-10.5) L 04/12/21 04:38 Total Bilirubin 0.2 mg/dL (0.15-1.2) 04/12/21 04:38 AST 8 U/L (0-32) 04/12/21 04:38 ALT < 5 U/L (0-33) 04/12/21 04:38 Alkaline Phosphatase 57 IU/L (35-105) 04/12/21 04:38 Troponin T Baseline 10 ng/L (0-10) 04/11/21 12:30 Troponin T 120 Minute 9.95 ng/L (0-10) 04/11/21 15:03 Delta Troponin T -0.05 ABS# (0-10) L 04/11/21 15:03 Troponin T Hi Sens 6Hr 10.72 ng/L (0-10) H 04/11/21 18:24 Troponin T Hi Sens 6Hr Delta 0.72 ng/L (0-12) 04/11/21 18:24 NT-Pro-B Natriuret Pep 423 pg/mL (0-125) H 04/12/21 04:38 Total Protein 5.8 g/dL (6.6-8.7) L 04/12/21 04:38 Albumin 3.5 g/dL (3.5-5.2) 04/12/21 04:38 Globulin 2.3 g/dL (1.3-4.6) 04/12/21 04:38 Lipase 26 U/L (13-60) 04/12/21 04:38 Procalcitonin 0.08 ng/mL (0-0.5) 04/11/21 12:30 Urine Color Yellow (Yellow) 04/11/21 12:31 Urine Appearance Sl hazy (CLEAR) 04/11/21 12:31 Urine pH 7 (5-7) 04/11/21 12:31 Ur Specific [place] 1.010 (1.005-1.030) 04/11/21 12:31 Urine Protein 3+ (Negative) H 04/11/21 12:31 Urine Glucose (UA) 2+ (Normal) H 04/11/21 12:31 Urine Ketones 1+ (Negative) H 04/11/21 12:31 Urine Blood Neg (Negative) 04/11/21 12:31 Urine Nitrate Positive (Negative) H 04/11/21 12:31 Urine Bilirubin Neg (Negative) 04/11/21 12:31 Urine Urobilinogen Norm mg/dL (Negative) 04/11/21 12:31 Ur Leukocyte Esterase Trace (Negative) H 04/11/21 12:31 Urine RBC None /hpf (0-2) 04/11/21 12:31 Urine WBC 15-25 /hpf (0-5) H 04/11/21 12:31 Ur Squamous Epith Cells None /hpf (0-5) 04/11/21 12:31 Amorphous Sediment Not Reportable 04/11/21 12:31 Urine Bacteria 3+ /hpf (NONE) H 04/11/21 12:31 Coronavirus 229E (PCR) Not detected (NOT DETECT) 04/11/21 12:33 SARS-CoV-2 (PCR) Not detected (NOT DETECT) 04/11/21 12:33 Vitals Last Vital Signs Temp 98.1 F 04/12/21 08:00 Pulse 85 04/12/21 11:45 Resp 18 04/12/21 11:45 BP 164/78 04/12/21 11:45 Pulse Ox 94 04/12/21 11:45 Discharge Plan Discharge Patient Disposition: Home Condition: Stable Prescriptions: New hydralazine 25 mg tablet 25 mg PO QID 30 Days Qty: 120 0RF levofloxacin 500 mg tablet 500 mg PO DAILY 5 Days 0RF Continued Plavix 75 mg Tablet See Rx Instructions .ROUTE .COMPLEX 0RF Rx Instructions: medication dced on discharge papers on 03/24/21-[facility] states they are still setting up this medication in the pts med materials planner/production planner 75mg daily-ext med history shows last filled 03/09/21 30d/s- Eliquis DVT-PE Treat 30D Start 5 mg (74 tabs) tablets,dose pack See Rx Instructions .ROUTE .COMPLEX 0RF Rx Instructions: orally per package directions Lantus U-100 Insulin 100 unit/mL solution 40 unit SUBCUT BEDTIME 0RF amlodipine 10 mg tablet 10 mg PO QAM 0RF metformin 1,000 mg tablet 1,000 mg PO BID 0RF losartan 100 mg tablet 100 mg PO QAM 0RF fenofibrate nanocrystallized 145 mg tablet 145 mg PO BEDTIME 0RF Jardiance 10 mg tablet 10 mg PO QAM 0RF ondansetron HCl [Zofran] 4 mg tablet 4 mg PO Q6H PRN (Reason: nausea and vomiting) Qty: 14 0RF Discontinued aspirin 81 mg Tablet,Delayed Release (Dr/Ec) 81 mg PO QAM 0RF Discharge Orders: Discharge Order (Routine); Ordered 04/12/21 Ordered By: Maru Morris Referrals: Clinton Perez MD [Physician] - 4-7 days Discharge Diet: Advance as tolerated Discharge Activity: Resume usual activity Patient Instructions: Opioid Safety Discharge Attestations Time Spent in Discharge Care*: less than 30 min Status at Discharge: Cognitive status at discharge: mildly impaired cognition, Behavioral status at discharge: cooperative, Quality Metrics Clinical Quality Measures [ No reported AMI, CVA or VTE this stay] Coding Level of Care Code Acute Chg FW DC note Diagnoses Nausea & vomiting R11.2 Hypokalemia E87.6 Hypertensive urgency I16.0
[2021-04-12] MEDS: potassium chloride ER 20 mEq Tablet 40 MEQ PO (14:52)
[2021-04-12 14:53] VITALS: BP 164/78; PULSE 85; RESP 18; O2SAT 94
== END 2021-04-12 15:09 | disposition home or self-care (01) ==
LOC: ER 13:04 → ER IP 17:29 → MEDSURG 21:01 → ER IP 04-12 16:56
PROVIDERS: Admitting Provider Student in an Organized Health Care Education/Training Program; Emergency Provider Family Medicine; PCP Family Medicine; Visit Provider Student in an Organized Health Care Education/Training Program
DX: R11.2 Nausea with vomiting, unspecified (principal); E87.6 Hypokalemia; I16.0 Hypertensive urgency; I10 Essential (primary) hypertension; E11.9 Type 2 diabetes mellitus without complications; Z79.01 Long term (current) use of anticoagulants; Z79.82 Long term (current) use of aspirin; Z86.711 Personal history of pulmonary embolism; M19.90 Unspecified osteoarthritis, unspecified site; J44.9 Chronic obstructive pulmonary disease, unspecified
CPT/HCPCS: 36415; 36416; 36600; 71045; 71275; 74018; 80051; 80053; 81001; 82330; 82805; 82962; 83690; 83880; 84145; 84484; 85025; 87040; 87070; 87077; 87086; 87186; 87205; 87635; 93005; 96365; 96366; 96367; 96372; 96375; 99285; G0378; J0696; J1815; J2405; J3480; J3490; J7040; Q9967

== ENCOUNTER 2021-06-06 12:21 | Inpatient (IN) | payer MEDICAID, SELFPAY ==
[2021-06-06] VITALS (10 sets, daily range): BP systolic 144–169; BP diastolic 62–88; PULSE 71–82; RESP 17–21; TEMP 35.8–36.3; O2SAT 94–98; BMI 34.9
--- NOTE | 2021-06-06 12:34 | W.ED.CHESTPA ---
HPI - Chest Pain General: Chief Complaint: Chest Pain Stated Complaint: CHEST PAIN/ SOB Time Seen by Provider: 06/06/21 12:34 History of Present Illness: Ms. López is a 70-year-old lady with significant past medical history of PE, hypertension, and diabetes who presents emerged department due to chest discomfort and shortness of breath. Symptoms began 3 days ago and was subacute in onset. Onset was at rest. Since that time she has had constant symptoms that are moderate to severe in intensity. She describes pain which is squeezing in the left arm and left anterior chest. Denies infectious symptoms. No other typical cardiac features. Denies history of cardiac evaluation. No other specific changes in health, exacerbating, or alleviating factors identified. Patient does not think that she took her Eliquis either this morning or last night. Pertinent past history: other Onset (ago): day(s) Timing of current episode: constant Prior episodes: No Pain location: substernal and left chest Pain radiation: left arm Severity: moderate Relieving factors: nothing Exacerbating factors: nothing Review of Systems General: Reports: 10 or more systems reviewed and unremarkable except in HPI and below PFSH ED PFSH: Medical History Arthritis Asthma Bilateral conjunctivitis Diarrhea DKA (diabetic ketoacidosis) DM type 2 (diabetes mellitus, type 2) Gastroenteritis HTN (hypertension) Hyperlipidemia Hypertensive urgency Hypokalemia Left otitis media with spontaneous rupture of eardrum Nausea & vomiting Otitis externa Pulmonary embolism Small bowel mass Surgical History Hx of cholecystectomy Family History Other Cancer Stroke Social History Smoking and tobacco status: never smoked Alcohol intake: never Lives independently: Yes Household members: none Marital status: / Physical Exam Const: COMMON NORMALS: alert GENERAL APPEARANCE: cooperative and well developed HENMT: COMMON NORMALS: normocephalic and atraumatic HEAD & SCALP: normocephalic and atraumatic Eye: COMMON NORMALS: conjunctivae normal CONJUNCTIVA: Yes conjunctivae normal SCLERA: sclerae normal Neck/C-Spine: COMMON NORMALS: supple GENERAL: Yes trachea midline Resp: COMMON NORMALS: normal respiratory effort and clear to auscultation bilaterally EFFORT & INSPECTION: Yes able to speak in complete sentences AUSCULTATION: clear to auscultation bilaterally Cardio: COMMON NORMALS: regular rate and regular rhythm RATE: regular rate RHYTHM: regular rhythm GI: COMMON NORMALS: Soft to palpation PALPATION: Yes Soft to palpation and No Tenderness to palpation present (GI) PERCUSSION: normal to percussion Extremity: GENERAL: Yes normal exam except as noted and No edema Neuro: COMMON NORMALS: moves all extremities SENSORIUM/ORIENTATION: Yes alert and No Orientation impaired Psych: COMMON NORMALS: mental status grossly normal and Normal thought process present THOUGHT PROCESS: Normal thought process present Course ED course: - Patient was seen and evaluated by me at bedside - Patient placed on cardiac monitors, IV access obtained - Initial evaluation notable for exam as above - Labs and xrays personally interpreted by me - Analgesia given - Labs notable for leukocytosis. D-dimer negative. Medical panel with evidence of hyponatremia and hypokalemia, replenishment ordered. Glucose is elevated without evidence of DKA. Troponin is elevated. - Lovenox ordered - Imaging notable for no lobar consolidation or pneumothorax - Upon serial reexamination after treatment the patient was mildly proved - Based on patient history, evaluation, and testing as interpreted the most likely cause of the patient's condition is NSTEMI - The results of ED evaluation were discussed with the patient including plan for admission due to requirement for level of care not available if discharged to prevent significant worsening/deterioration. -Hospitalist service contacted and agreed to admit the patient - Patient was admitted without further deterioration or significant events. Note: Click bubbles or prepopulated wong in note writing are used for assistance with data collection and billing and are inherently more limited than narrative and other text portions of this note. Please use narrative for additional clinical history and defer to narrative/free test for any case of contradictory information. If information appears in only free text or click bubble it should be considered present or absent as reported. Please contact note consumer loan underwriter for clarifications of clinical information or contradictory information. MDM is a brief summary, contradictory or erroneous seeming information should be clarified and full note should be reviewed. Vital Signs: Vital signs: Vital Signs Temperature 97.6 F 06/09/21 11:09 Pulse Rate 88 06/09/21 11:11 Respiratory Rate 18 03/24/22 11:11 Blood Pressure 162/76 06/09/21 11:11 Pulse Oximetry 95 06/09/21 11:11 MDM - Chest Pain Medical Decision Making 70-year-old lady with history of PE, hypertension, diabetes presented with chest pain. Patient found to have NSTEMI. Admitted for definitive management and treatment. Medical Records I reviewed the patient's medical records. Lab Data I reviewed the patient's lab results. : 06/09/21 04:55 06/09/21 04:55 Radiology Impressions Chest X-Ray 06/06/21 12:55 IMPRESSION: No acute findings. Laboratory Results WBC 10.2 10^3/uL (4.0-10.0) H 06/06/21 13:00 RBC 4.24 10^6/uL (4.1-5.3) 06/06/21 13:00 Hgb 12.4 g/dL (11.5-15.3) 06/06/21 13:00 Hct 35.5 % (37.0-47.0) L 06/06/21 13:00 MCV 83.7 fl (81-99) 06/06/21 13:00 MCH 29.2 pg (28.0-34.0) 06/06/21 13:00 MCHC 34.9 g/dL (30.0-36.0) 06/06/21 13:00 RDW 13.0 % (12.1-15.1) 06/06/21 13:00 Plt Count 331 10^3/cmm (130-400) 06/06/21 13:00 MPV 10.8 fL (7.4-10.4) H 06/06/21 13:00 Neut % (Auto) 78.1 % 06/06/21 13:00 Lymph % (Auto) 14.3 % 06/06/21 13:00 [place] % (Auto) 5.2 % 06/06/21 13:00 Eos % (Auto) 1.1 % 06/06/21 13:00 Baso % (Auto) 0.7 % 06/06/21 13:00 Neut # (Auto) 7.99 10^3/uL (1.8-7.7) H 06/06/21 13:00 Lymph # (Auto) 1.5 10^3/uL (0.8-4.8) 06/06/21 13:00 [place] # (Auto) 0.5 10^3/uL (0.2-0.9) 06/06/21 13:00 Eos # (Auto) 0.1 10^3/uL (0.0-0.8) 06/06/21 13:00 Baso # (Auto) 0.1 10^3/uL (0.0-0.1) 06/06/21 13:00 Nucleated RBC % (auto) 0 % 06/06/21 13:00 Nucleated RBCs # 0.0 /100WBC 06/06/21 13:00 D-Dimer <= 0.27 ug/mIFEU (0-0.59) 06/06/21 13:00 Sodium 129 mmol/L (136-145) L 06/06/21 14:26 Potassium 3.2 mmol/L (3.5-5.1) L 06/06/21 14:26 Chloride 91 mmol/L (98-107) L 06/06/21 14:26 Carbon Dioxide 26 mmol/L (22-29) 06/06/21 14:26 Anion Gap 15.2 (5-19) 06/06/21 14:26 BUN 12 mg/dL (8-23) 06/06/21 14:26 Creatinine 0.7 mg/dL (0.5-0.9) 06/06/21 14:26 GFR Calculation 83.0 mL/min (90-130) L 06/06/21 14:26 Glucose 317 mg/dL (65-115) H 06/06/21 14:26 Calculated Osmolality 280 mOsm/kg (285-295) L 06/06/21 14:26 Calcium 9.2 mg/dL (8.5-10.5) 06/06/21 14:26 Magnesium 1.8 mg/dL (1.7-2.3) 06/06/21 14:26 Total Bilirubin 0.4 mg/dL (0.15-1.2) 06/06/21 14:26 AST 24 U/L (0-32) 06/06/21 14:26 ALT 8 U/L (0-33) 06/06/21 14:26 Alkaline Phosphatase 52 IU/L (35-105) 06/06/21 14:26 Troponin T Baseline 559 ng/L (0-10) H* 06/06/21 14:26 Troponin T 120 Minute 542.0 ng/L (0-10) H 06/06/21 16:19 Delta Troponin T -17.0 ABS# (0-10) L 06/06/21 16:19 NT-Pro-B Natriuret Pep 4416 pg/mL (0-125) H 06/06/21 14:26 Total Protein 7.0 g/dL (6.6-8.7) 06/06/21 14:26 Albumin 4.1 g/dL (3.5-5.2) 06/06/21 14:26 Globulin 2.9 g/dL (1.3-4.6) 06/06/21 14:26 Lipase 23 U/L (13-60) 06/06/21 14:26 Urine Color Yellow (Yellow) 06/06/21 13:33 Urine Appearance Hazy (CLEAR) A 06/06/21 13:33 Urine pH 6 (5-7) 06/06/21 13:33 Ur Specific [place] 1.020 (1.005-1.030) 06/06/21 13:33 Urine Protein 3+ (Negative) H 06/06/21 13:33 Urine Glucose (UA) 4+ (Normal) H 06/06/21 13:33 Urine Ketones 1+ (Negative) H 06/06/21 13:33 Urine Blood 2+ (Negative) H 06/06/21 13:33 Urine Nitrate Negative (Negative) 06/06/21 13:33 Urine Bilirubin Neg (Negative) 06/06/21 13:33 Urine Urobilinogen Norm mg/dL (Negative) 06/06/21 13:33 Ur Leukocyte Esterase 1+ (Negative) H 06/06/21 13:33 Urine RBC 5-10 /hpf (0-2) H 06/06/21 13:33 Urine WBC 10-15 /hpf (0-5) H 06/06/21 13:33 Ur Squamous Epith Cells 10-15 /hpf (0-5) H 06/06/21 13:33 Amorphous Sediment Not Reportable 06/06/21 13:33 Urine Bacteria 2+ /hpf (NONE) H 06/06/21 13:33 Coronavirus 229E (PCR) Not detected (NOT DETECT) 06/06/21 13:15 SARS-CoV-2 (PCR) Not detected (NOT DETECT) 06/06/21 13:15 EKG Data EKG 1: I personally reviewed and interpreted this EKG as follows: EKG interpretation date: 06/06/21 EKG interpretation time: 12:50 Interpretation: Twelve-lead EKG shows a regular rhythm at a rate of 71. UT interval 163, QRS duration 93, QTc 429. Borderline left axis deviation. Interpretation: Sinus rhythm. Nonspecific ST segment abnormalities. Discharge Plan Discharge Patient Disposition: Admitted As Inpatient Admit Provider: Rose Alcazar Clinical Impression: Chest pain, Non-ST elevation (NSTEMI) myocardial infarction Condition: Stable Discharge Diet: Cardiac Discharge Activity: Increase activity as tolerated Coding Level of Care Code ED Roller Die Cutting Machine Operator for Chg Fwd Exam Comprehensive
--- NOTE | 2021-06-06 12:55 | XRR_ITS ---
PROCEDURE INFORMATION: Exam: XR Chest Exam date and time: 06/06/2021 12:03 PM Age: 70 years old Clinical indication: Pain; Angina pectoris; Additional info: Cp TECHNIQUE: Imaging protocol: XR of the chest. Views: 1 view. COMPARISON: CR XR chest 1V portable [id number] 04/11/2021 2:43 PM FINDINGS: Lungs: Unremarkable. No consolidation. Pleural spaces: Unremarkable. No pleural effusion. No pneumothorax. Heart/Mediastinum: Unremarkable. No cardiomegaly. Bones/joints: Unremarkable. XR/XR chest 1V portable [id number] IMPRESSION: No acute findings.
--- NOTE | 2021-06-06 12:55 | ECG_ITS ---
[facility] Test Date: 2021-06-06 Pat Name: Lady López Department: Room: Gender: Female Studio Engineer: : 1950 Requested By: Deangelo Nelson Order Number: [id number] Kelby MD: Mckinley Stark M.D. Measurements Intervals [place] Rate: 71 P: 25 DE: 163 QRS: -24 QRSD: 93 T: 105 QT: 406 QTc: 444 Interpretive Statements SINUS RHYTHM ANTEROSEPTAL MYOCARDIAL INFARCTION , OF INDETERMINATE AGE [40+ ms Q WAVE IN V1-V4] INTERPRETATION BASED ON A DEFAULT AGE OF 40 YEARS Compared to ECG 04/11/2021 14:23:53 T-wave abnormality no longer present Possible ischemia no longer present Myocardial infarct finding still present Electronically Signed On 06-06-2021 20:25:06 CDT by Mckinley Stark M.D. [id number]
[2021-06-06] MEDS: fentaNYL 50 mcg/mL INJ 2mL IVP (13:05)
[2021-06-06 13:16] LABS: Basophils # 0.1 10^3/uL (0.0-0.1); Basophils % 0.7 %; Eosinophils # 0.1 10^3/uL (0.0-0.8); Eosinophils % 1.1 %; Hematocrit 35.5 % (37.0-47.0); Hemoglobin 12.4 g/dL (11.5-15.3); Lymphocytes # 1.5 10^3/uL (0.8-4.8); Lymphocytes % 14.3 %; Mean Corpuscular HGB Conc 34.9 g/dL (30.0-36.0); Mean Corpuscular Hemoglobin 29.2 pg (28.0-34.0); Mean Corpuscular Volume 83.7 fl (81-99); Mean Platelet Volume 10.8 fL (7.4-10.4); Monocytes # 0.5 10^3/uL (0.2-0.9); Monocytes % 5.2 %; Neutrophils # 7.99 10^3/uL (1.8-7.7); Neutrophils % 78.1 %; Nucleated Red Blood Cells % 0 %; Platelet Count 331 10^3/cmm (130-400); Red Blood Count 4.24 10^6/uL (4.1-5.3); White Blood Count 10.2 10^3/uL (4.0-10.0)
--- NOTE | 2021-06-06 13:16 | PC.PHAR ---
PT UNABLE TO VERIFY. MEDS VERIFIED BY [facility] NURSE [place]
[2021-06-06 13:29] LABS: D Dimer <= 0.27 ug/mIFEU (0-0.59)
[2021-06-06 14:36] LABS: Glucose Urine UA 4+ (Normal); Ketones Urine 1+ (Negative); Protein Urine 3+ (Negative); Urine Appearance Hazy (CLEAR); Urine Color Yellow (Yellow); pH Urine 6 (5-7)
[2021-06-06 14:37] LABS: Add Urine Culture? No; Add Urine Microscopic? YES; Bacteria Urine 2+ /hpf; Bilirubin Urine Neg (Negative); Blood Urine 2+ (Negative); Leukocyte Esterase Urine 1+ (Negative); Nitrate Urine Negative (Negative); Urobilinogen Urine Norm (Negative)
--- NOTE | 2021-06-06 14:55 | ECG_ITS ---
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 Measurements Intervals [place] Rate: 69 P: 36 ID: [id number] QRS: -34 QRSD: 94 T: 89 QT: 418 QTc: 448 Interpretive Statements SINUS RHYTHM LEFT AXIS DEVIATION [QRS AXIS < -30] ANTEROSEPTAL MYOCARDIAL INFARCTION , OF INDETERMINATE AGE [40+ ms Q WAVE IN V1-V4] Compared to ECG 06/06/2021 12:47:23 Left-axis deviation now present Myocardial infarct finding still present Electronically Signed On 06-06-2021 20:41:13 CDT by Mckinley Stark M.D. [id number]
[2021-06-06 15:16] LABS: Alanine Aminotransferase 8 U/L (0-33); Albumin Level 4.1 g/dL (3.5-5.2); Alkaline Phosphatase 52 IU/L (35-105); Anion Gap 15.2 (5-19); Aspartate Amino Transferase 24 U/L (0-32); Blood Urea Nitrogen 12 mg/dL (8-23); Calcium 9.2 mg/dL (8.5-10.5); Carbon Dioxide 26 mmol/L (22-29); Chloride 91 mmol/L (98-107); Globulin 2.9 g/dL (1.3-4.6); Glucose 317 mg/dL (65-115); Lipase 23 U/L (13-60); NT Pro B Type Natriuretic Pept 4416 pg/mL (0-125); Osmolality Calculated 280 mOsm/kg (285-295); Potassium 3.2 mmol/L (3.5-5.1); Sodium 129 mmol/L (136-145); Total Bilirubin 0.4 mg/dL (0.15-1.2)
[2021-06-06 15:21] LABS: Troponin(5th) Baseline 559 ng/L (0-10)
[2021-06-06] MEDS: enoxaparin 100 mg/mL Syringe SUBCUT (15:55)
[2021-06-06 15:57] LABS: Adenovirus Not Detected (NOT DETECT); Chlamydia Pneumoniae Not Detected (NOT DETECT); Coronavirus 229E,HKU1,NL63,OC4 Not Detected (NOT DETECT); Human Metapneumovirus Not Detected (NOT DETECT); Human Rhinovirus/Enterovirus Not Detected (NOT DETECT); Influenza A Not Detected (NOT DETECT); Influenza A H1 Not Detected (NOT DETECT); Influenza A H1-2009 Not Detected (NOT DETECT); Influenza A H3 Not Detected (NOT DETECT); Influenza B Not Detected (NOT DETECT); Mycoplasma Pneumoniae Not Detected (NOT DETECT); Parainfluenza Virus Type 1 Not Detected (NOT DETECT); Parainfluenza Virus Type 2 Not Detected (NOT DETECT); Parainfluenza Virus Type 3 Not Detected (NOT DETECT); Parainfluenza Virus Type 4 Not Detected (NOT DETECT); Respiratory Syncytial Virus A Not Detected (NOT DETECT); Respiratory Syncytial Virus B Not Detected (NOT DETECT); SARS-COV-2 Not Detected (NOT DETECT)
--- NOTE | 2021-06-06 16:10 | P.HP_ITS ---
Providers/Chief Complaint Primary Care Provider: Matthew Geller DO Chief Complaint: CHEST PAIN/ SOB History of Present Illness Lady López is a 70 year old female into the hospital for chief complaint of chest pain. Patient stating that her symptoms started on Sunday. Her symptoms started with left elbow pain which radiated towards her chest. She describing her chest pain as sharp shooting pain. Her pain would last for about an hour. She tried some anti-inflammatory topical ointment which relieved her pain. Her pain persisted on Sunday and on Sunday it got worse. She decided to come to the hospital for further evaluation. She has been feeling nauseous and stating that she mostly stays sick to her stomach. No episode of emesis, diaphoresis. She is endorsing dizziness. No recent fever, diarrhea. In the ER she was diagnosed with NSTEMI, cardiology consulted. She is chest pain-free at the time of my evaluation. Significant troponin elevation. Review of Systems Const: Denies: fever(s) Eyes: Denies: change in vision ENMT: Denies: throat pain Card: Reports: chest pain Resp: Reports: dyspnea GI: Denies: abdominal pain : Denies: flank pain Musc: Denies: neck pain Skin/Breast: Denies: rash Neuro: Denies: headache(s) Psych: Reports: anxiety Endo: Denies: polyuria Ervin/Lymph: Denies: easy bruising All/Imm: Denies: urticaria Medications/Allergies Home Medications Medication Instructions Recorded Confirmed Last Taken Type amlodipine 10 mg tablet 10 mg PO QAM 02/22/21 06/06/21 03/21/21 08:00 History empagliflozin 10 mg tablet 10 mg PO QAM 02/22/21 06/06/21 03/21/21 08:00 History (Jardiance) fenofibrate nanocrystallized 145 145 mg PO BEDTIME 02/22/21 06/06/21 03/21/21 21:00 History mg tablet insulin glargine 100 unit/mL 40 unit SUBCUT BEDTIME 02/22/21 06/06/21 03/21/21 21:00 History subcutaneous solution (Lantus U-100 Insulin) losartan 100 mg tablet 100 mg PO QAM 02/22/21 06/06/21 03/21/21 08:00 History metformin 1,000 mg tablet 1,000 mg PO BID 02/22/21 06/06/21 03/21/21 21:00 History ondansetron HCl 4 mg tablet 4 mg PO Q6H PRN #14 tab 02/22/21 06/06/21 Unknown Rx (Zofran) apixaban 5 mg tablet (Eliquis) 5 mg PO BID 06/06/21 06/06/21 Unknown History carvedilol 25 mg tablet 25 mg PO BID 06/06/21 06/06/21 Unknown History Allergies Allergy/AdvReac Type Severity Reaction Status Date / Time codeine Allergy Unknown ADR-Diarrhe Verified 06/06/21 13:14 a tetanus and diphtheria Allergy Unknown Unknown Verified 06/06/21 13:14 toxoids PFSH Acute PFSH: Medical History Arthritis Asthma Bilateral conjunctivitis Diarrhea DKA (diabetic ketoacidosis) DM type 2 (diabetes mellitus, type 2) Gastroenteritis HTN (hypertension) Hyperlipidemia Hypertensive urgency Hypokalemia Left otitis media with spontaneous rupture of eardrum Nausea & vomiting Otitis externa Pulmonary embolism Small bowel mass Surgical History Hx of cholecystectomy Family History Other Cancer Stroke Social History Smoking and tobacco status: never smoked Alcohol intake: never Lives independently: Yes Household members: none Marital status: / Vitals/I&O/Wt Last Vital Signs Temp 97.3 F L 06/06/21 12:35 Pulse 71 06/06/21 12:55 Resp 18 06/06/21 12:51 BP 144/62 06/06/21 12:55 Pulse Ox 98 06/06/21 12:55 Weight last 48 hrs Weight 95.254 kg Physical Exam Narrative: Pleasant for Chest pain-free S1, S2 variable Abdomen soft nondistended Nonfocal neuro exam Saturating well Nonfocal neuro exam Doing well on room air No active distress Pleasant cooperative Appropriate mood and affect Data : 06/07/21 03:50 06/07/21 03:50 A&P Assessment and plan (1) Non-ST elevation (NSTEMI) myocardial infarction: Status: Acute Plan NSTEMI Cardiology consulted Currently chest pain-free Hemodynamically stable Significant troponin elevated noted Admit to [facility]SU Echo Patient will need coronary angiogram We will follow with cardiology recommendations Aspirin, lisinopril, atorvastatin, metoprolol, add Plavix Cardiac diet Start ACS protocol Full code In case of an emergency patient wants her son to be notified Attestations Medical Necessity Statement*: More than 2 midnights anticipated 2 midnights anticipated Time Spent in Patient Care: 35mins Coding Level of Care Code Acute Client Service And Consulting Manager for Sasha Cox Diagnoses Non-ST elevation (NSTEMI) myocardial infarction I21.4
--- NOTE | 2021-06-06 16:24 | PM.CONSULT ---
Providers/Reason For Consult Consulting Physician/Specialty*: Dr. Baker, Cardiology Reason for Consult*: NSTEMI Primary Care Provider: Matthew Geller DO History of Present Illness History of Present Illness Lady López is a 70 year old female with past medical history of type 2 diabetes mellitus, hypertension, hyperlipidemia, history of PE who presented for evaluation of chest discomfort. She presented with 3 day h/o chest pain 10/10 that started in her left elbow then went to her left arm and left side of her chest with radiation to fingertips of left hand. This happened on and off hence she came to ER for further evaluation. EKG with sinus rhythm, anteroseptal infarct of indeterminate age and troponin T >500. She is currently CP free. Review of Systems General: Reports: 10 or more systems reviewed and unremarkable except in HPI and below Card: Reports: chest pain; Denies: palpitations, irregular heart rhythm or edema Resp: Denies: dyspnea or productive cough GI: Reports: nausea; Denies: abdominal pain, vomiting, hematemesis, hematochezia or melena : Denies: hematuria Neuro: Denies: headache(s) or confusion Medications/Allergies Home Medications Medication Instructions Recorded Confirmed Last Taken Type amlodipine 10 mg tablet 10 mg PO QAM 02/22/21 06/06/21 03/21/21 08:00 History empagliflozin 10 mg tablet 10 mg PO QAM 02/22/21 06/06/21 03/21/21 08:00 History (Jardiance) fenofibrate nanocrystallized 145 145 mg PO BEDTIME 02/22/21 06/06/21 03/21/21 21:00 History mg tablet insulin glargine 100 unit/mL 40 unit SUBCUT BEDTIME 02/22/21 06/06/21 03/21/21 21:00 History subcutaneous solution (Lantus U-100 Insulin) losartan 100 mg tablet 100 mg PO QAM 02/22/21 06/06/21 03/21/21 08:00 History metformin 1,000 mg tablet 1,000 mg PO BID 02/22/21 06/06/21 03/21/21 21:00 History ondansetron HCl 4 mg tablet 4 mg PO Q6H PRN #14 tab 02/22/21 06/06/21 Unknown Rx (Zofran) apixaban 5 mg tablet (Eliquis) 5 mg PO BID 06/06/21 06/06/21 Unknown History carvedilol 25 mg tablet 25 mg PO BID 06/06/21 06/06/21 Unknown History Allergies Allergy/AdvReac Type Severity Reaction Status Date / Time codeine Allergy Unknown ADR-Diarrhe Verified 06/06/21 13:14 a tetanus and diphtheria Allergy Unknown Unknown Verified 06/06/21 13:14 toxoids PFSH Acute PFSH: Medical History (Updated 06/06/21 @ 21:01 by María Elena Baker MD) Arthritis Asthma Bilateral conjunctivitis Diarrhea DKA (diabetic ketoacidosis) DM type 2 (diabetes mellitus, type 2) Gastroenteritis HTN (hypertension) Hyperlipidemia Hypertensive urgency Hypokalemia Left otitis media with spontaneous rupture of eardrum Nausea & vomiting Otitis externa Pulmonary embolism Small bowel mass Surgical History Hx of cholecystectomy Family History Other Cancer Stroke Social History Smoking and tobacco status: never smoked Alcohol intake: never Lives independently: Yes Household members: none Marital status: / Vitals/I&O/Wt Last Vital Signs Temp 97.3 F L 06/06/21 12:35 Pulse 71 06/06/21 12:55 Resp 18 06/06/21 12:51 BP 144/62 06/06/21 12:55 Pulse Ox 98 06/06/21 12:55 Weight last 48 hrs Weight 210 lb Physical Exam Narrative: GENERAL: obese woman laying in bed in no acute distress HEENT: Extraocular movement intact. No pallor or icterus. NECK: central trachea, No JVD No carotid bruit. CARDIOVASCULAR SYSTEM: S1-S2 regular. No S3 or S4 present. No murmur rubs or gallops. RESPIRATORY SYSTEM: Chest clear to auscultation. No wheezes rhonchi or rubs heard. No use of accessory muscles. ABDOMEN: Soft, nontender and nondistended. Normal bowel sounds present. EXTREMITIES: No cyanosis ,No edema. 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 No focal neurological deficits. SKIN: Normal turgor and temperature. No breakdown, rash or nail changes noted. PSYCH: Normal insight and judgment. Data : 06/06/21 13:00 06/06/21 14:26 Other Labs: Baseline troponin T of 559; NT proBNP [id number] Other data: Chest x-ray (06/06/2021): No acute findings CTA chest March 2021 IMPRESSION: ? 1.? Nonocclusive segmental RIGHT middle lobe pulmonary emboli. Cannot exclude smaller pulmonary emboli in the distal branches the lower lobes bilaterally. 2.? Subsegmental atelectasis medial LEFT upper lobe is unchanged. 3.? Mild progression in the mediastinal and hilar lymph nodes. Probably reactive. No history of malignancy. ? A&P Assessment and plan (1) Non-ST elevation (NSTEMI) myocardial infarction: Plan for echo -Plan to load after based on cath findings. -Multiple CAD risk factors HTN, DM-2,HLD -Risks and benefits were discussed with the patients. Possible complications including risk of heart attack stroke and , coronary perforation, arrhythmia, cardiac tamponade in urgent CABG were discussed with the patient as well. Plan is to proceed for the procedure in the morning. Status: Acute (2) HTN (hypertension): Status: Acute (3) Hyperlipidemia: Status: Acute (4) DM type 2 (diabetes mellitus, type 2): Status: Acute (5) Pulmonary embolism: recent PE; last dose of Eliquis yesterday morning. Status: Acute Coding Level of Care Code New Pt Acute Teacher Theater Arts for g Fwd Patient Type New History Comprehensive Exam Comprehensive Medical Decision Making High Complexity Diagnoses Non-ST elevation (NSTEMI) myocardial infarction I21.4 DM type 2 (diabetes mellitus, type 2) E11.9 Pulmonary embolism I26.99 HTN (hypertension) I10 Hyperlipidemia E78.5
--- NOTE | 2021-06-06 17:05 | USCV_ITS ---
Rene Lady Age: 70 Gender: F : 1950 Exam Date: 06/06/2021 18:48 Ordering Phys: Deangelo Nelson MD Technologist: Jonathan Plummer Exam Location: [facility] [place] Indication: NSTEMI BP: 154 / 73 HR: 74 Rhythm: Sinus Technical Quality: Adequate MEASUREMENTS (Male / Female) Normal Values 2D ECHO LV Diastolic Diameter PLAX 4.1 cm 4.2 - 5.9 / 3.9 - 5.3 cm LV Systolic Diameter PLAX 2.8 cm IVS Diastolic Thickness 1.5 cm 0.6 - 1.0 / 0.6 - 0.9 cm IVS Systolic Thickness 2.1 cm LVPW Diastolic Thickness 2.0 cm 0.6 - 1.0 / 0.6 - 0.9 cm LVPW Systolic Thickness 2.2 cm LVOT Diameter 1.9 cm LV Ejection Fraction 2D Teich 59.6 % LV Ejection Fraction MOD 2C 56.6 % LV Ejection Fraction 2C AL 58.5 % LA Diameter 3.6 cm LA Width 4.2 cm LA Height 4.7 cm RA Width 4.0 cm RA Height 4.3 cm Aorta at Sinotubular Diameter 2.1 cm M-MODE Aortic Annulus Diameter 2.6 cm LA Ao Ratio MM 1.3 MV E Point Septal Separation 0.8 cm DOPPLER AV Peak Velocity 188.0 cm/s LVOT Peak Velocity 74.0 cm/s AV Area Cont Eq vti 1.1 cm squared AV Area Cont Eq pk 1.2 cm squared MV Area PHT 3.1 cm squared Mitral E to A Ratio 1.2 MV E' Velocity 69.0 cm/s Mitral E to MV E' Ratio 13.8 Mitral E to LV E' Lateral Ratio 17.1 Mitral E to LV E' Septal Ratio 11.6 TR Peak Velocity 301.4 cm/s TR Peak Gradient 36.3 mmHg TR Mean Velocity 237.3 cm/s TR Mean Gradient 24.4 mmHg TR Velocity Time Integral 98.9 cm Right Atrial Pressure 5.0 mmHg Pulmonary Artery Systolic Pressu 41.3 mmHg PV Peak Velocity 128.3 cm/s RV Acceleration Time 0.1 s RV Ejection Time 0.3 s RV AcT/ET 0.3 FINDINGS Left Ventricle Normal left ventricular cavity size. Moderately increased left ventricular wall thickness. Moderate concentric left ventricular hypertrophy. Left ventricular ejection fraction is estimated at 55 %. There is moderate hypokinesis of basal to mid inferolateral, basal to mid anterolateral, apical septal and apical lateral reeves. Grade II diastolic dysfunction, moderately elevated filling pressures. Right Ventricle Normal right ventricular size and systolic function. Right ventricular systolic pressure 39 mmHg. Right Atrium Normal right atrial size. Right atrial pressure estimated at 3 mmHg. Left Atrium Mildly increased left atrial size. Mitral Valve Mild mitral annular calcification. Mildly thickened mitral valve. No mitral valve stenosis. Mild mitral valve regurgitation. Aortic Valve Possibly trileaflet aortic valve. No aortic valve stenosis. No aortic valve regurgitation. Tricuspid Valve Tricuspid valve not well visualized. Trace tricuspid valve regurgitation. Pulmonic Valve Structurally normal pulmonic valve. No pulmonary valve stenosis. No significant pulmonary valve regurgitation. Pericardium No pericardial effusion. Aorta Normal size aortic root and proximal ascending aorta. Normal- sized inferior vena cava. CONCLUSIONS 1. Normal left ventricular cavity size. Moderate concentric left ventricular hypertrophy. Left ventricular ejection fraction is estimated at 55 %. There is moderate hypokinesis of basal to mid inferolateral, basal to mid anterolateral, apical septal and apical lateral reeves. Grade II diastolic dysfunction, moderately elevated filling pressures. 2. Normal right ventricular size and systolic function. 3. Mild pulmonary hypertension with pulmonary pressure estimated at 39 mmHg. 4. Mild mitral valve regurgitation. 5. When compared to previous study dated 03/01/2021, there is new regional wall motion abnormality. María Elena Baker MD (Electronically Signed) Final Date: 07 June 2021 18:05 S
[2021-06-06] MEDS: lidocaine 1% 5 ML in potassium chloride premix 100 ML 50 ML IV (17:42)
[2021-06-06] MEDS: potassium chloride ER 20 mEq Tablet PO (17:47)
[2021-06-06 18:45] LABS: Magnesium 1.8 mg/dL (1.7-2.3)
--- NOTE | 2021-06-06 18:55 | ECG_ITS ---
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
[2021-06-06] MEDS: atorvastatin 40 mg Tablet 80 MG PO (20:27)
[2021-06-06] MEDS: lisinopril 10 mg Tablet PO (20:28)
[2021-06-06 20:54] LABS: Troponin 5 6HR 629.5 ng/L (0-10); Troponin 5 6HR Delta 70.5 ng/L (0-12)
[2021-06-06] MEDS: metoprolol tartrate 25 mg Tablet PO (21:16)
[2021-06-06] MEDS: aspirin 81 mg Chew Tablet 324 MG PO (21:17)
[2021-06-07] VITALS (64 sets, daily range): BP systolic 134–173; BP diastolic 57–113; PULSE 65–83; RESP 12–29; TEMP 36.4–36.8; O2SAT 80–99
[2021-06-07 03:59] LABS: Basophils # 0.1 10^3/uL (0.0-0.1); Basophils % 0.6 %; Eosinophils # 0.1 10^3/uL (0.0-0.8); Eosinophils % 1.8 %; Hemoglobin 11.8 g/dL (11.5-15.3); Lymphocytes # 1.3 10^3/uL (0.8-4.8); Mean Corpuscular HGB Conc 33.7 g/dL (30.0-36.0); Mean Corpuscular Hemoglobin 28.9 pg (28.0-34.0); Mean Corpuscular Volume 85.6 fl (81-99); Mean Platelet Volume 9.7 fL (7.4-10.4); Monocytes # 0.5 10^3/uL (0.2-0.9); Monocytes % 6.7 %; Neutrophils # 5.66 10^3/uL (1.8-7.7); Neutrophils % 73.4 %; Nucleated Red Blood Cells % 0 %; Platelet Count 337 10^3/cmm (130-400); Red Blood Count 4.09 10^6/uL (4.1-5.3); Red Cell Distribution Width 13.1 % (12.1-15.1); White Blood Count 7.7 10^3/uL (4.0-10.0)
--- NOTE | 2021-06-07 04:08 | PC.NURSE ---
pt rested quietly thoughout shift. VSS. No complaints of pain. Pt up to beside with standby assist. Adequate UOP. Hourly round and frequent repositioning done. All needs met. Pt NPO since MN. 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
[2021-06-07 04:24] LABS: Chol HDL Ratio 7.31 mg/dL (0.0-4.40); Cholesterol 234 mg/dL (0-200); HDL Cholesterol 32 mg/dL (60-100); LDL Cholesterol Calculated 138 mg/dL (50-129); LDL Cholesterol Direct 131 mg/dL (0-100); LDL HDL Ratio 4.31 RATIO (0.00-3.22); Triglycerides 320 mg/dL (0-150)
[2021-06-07 04:31] LABS: Anion Gap 16.1 (5-19); Blood Urea Nitrogen 15 mg/dL (8-23); Calcium 9.6 mg/dL (8.5-10.5); Chloride 94 mmol/L (98-107); Glucose 463 mg/dL (65-115); Osmolality Calculated 291 mOsm/kg (285-295); Potassium 4.1 mmol/L (3.5-5.1); Sodium 130 mmol/L (136-145)
[2021-06-07 04:32] LABS: Carbon Dioxide 24 mmol/L (22-29)
[2021-06-07 04:48] LABS: Glucose Point of Care 417 mg/dL (70-110)
[2021-06-07] MEDS: diphenhydrAMINE 50 mg Capsule PO (04:56)
[2021-06-07] MEDS: sodium chloride 0.9% 1,000 ML 50 ML IV (04:59)
--- NOTE | 2021-06-07 05:58 | PC.NURSE ---
Glucose on am chemistry 463. Recheck on glucometer 417. Dr. Nieves notified. Instructed to recheck in one hour. Unable to recheck due to patient being taken to laborer road.
--- NOTE | 2021-06-07 06:00 | XACV_ITS ---
Exam Room: [facility] Ht: 165 cm Wt: 95 kg BSA: 2.13 m2 Gender: Female : 1950 Any Known Allergies: Other Exam Priority: Routine Procedure(s): Procedure Description: Diagnostic procedure Procedure Description: PCI procedure Procedure Description: Drug Eluting Coronary Stent Procedure Description: PTCA Procedure Description: Miscellaneous Procedure Description: ACT Procedure Description: Coronary Angiography Procedure Description: Pressure Wire Diagnostic Cath Status: Urgent Diagnostic Findings * 70 year old female with past medical history of type 2 diabetes mellitus, hypertension, hyperlipidemia, history of PE in 03/2021 presented for evaluation of chest discomfort. She presented with 3 day h/o chest pain 10/10 that started in her left elbow then went to her left arm and left side of her chest with radiation to fingertips of left hand. EKG with sinus rhythm, anteroseptal infarct of indeterminate age and troponin T >600. Echocardiogram with hypokinesis in inferolateral and anterolateral reeves. * Angiography shows a right coronary dominant system. * Normal left main. * Circumflex is medium caliber vessel with 2 obtuse marginals. Proximal circumflex is calcified with short 80% stenosis. RADU-3 flow. Culprit vessel. * Left anterior descending artery is small to medium caliber vessel with 1 major diagonal and 2 small diagonal branches. Proximal to mid left anterior descending is calcified vessel. Mid left anterior descending artery with 60-70% stenosis with RADU-3 flow. * Right coronary artery is a normal caliber vessel. Minor irregularity in distal right coronary artery. * Case was discussed and images were reviewed with Dr. Posadas. Decision was made to proceed with IFR of mid LAD stenosis and PCI of proximal circumflex lesion. PCI Status: Urgent PCI Indication: NSTE - ACS Interventional Findings * Procedure detail: We engaged the left main artery with XB 3.5 guide catheter. IV heparin was administered to maintain an ACT above 250 s. After normalization we advanced IFR pressure wire to distal LAD. IFR value of 0.74 was obtained. As this was a calcified vessel, we decided to staged PCI of LAD with arthrectomy. We then proceeded with PCI of proximal left circumflex artery. Run-through guidewire was used to cross the proximal circumflex stenosis and was put in distal vessel. We predilated stenosis with 2.5 x 8 mm semicompliant balloon. This was followed by placement of 3.0 x 15 mm resolute [place] drug-eluting stent. We then postdilated the stent with 3.25 x 8 mm NC balloon. At this time final angiogram was obtained that showed excellent stent expansion, no residual stenosis and RADU-3 flow in the left circumflex artery. Guidewire and guide catheter were removed and patient left the Billing Clinician in a stable condition.. * Proximal Circumflex: 80% stenosis treated with a MDT NC EUPHORA RX [id number] BALLOON, MDT R PRISCILLA 3.0X15 LILIYA, and MDT NC EUPHORA RX [id number] BALLOON. 0% residual stenosis, RADU: 3 flow. Conclusions 1. Two-vessel coronary artery disease. 2. Proximal circumflex 80% stenosis was treated with balloon angioplasty and drug-eluting stent placement (culprit vessel). 3. Proximal to 4. mid left anterior descending artery stenosis was noted to be significant by iFR (0.74). Plan for staged PCI of mid LAD lesion. 5. Proximal Circumflex was treated with a Balloon, Drug Eluting Stent, and Balloon. Recommendations * Continue aspirin and Plavix for at least 1 year.. * Continue optimal medical management. Meticulous diabetes control. * Follow up with Dr. Baker in 8 weeks and follow-up with Ms. Valarie Sanders in 7 days. * High intensity statin therapy. * Staged PCI of proximal to mid LAD in 2 days.. Diagnostic RX Recommendation: PCI w/o planned CABG Pressures Phase:Rest AO : 139 / 72 ( 101 ) @ 7:43:00 AM 158 / 74 ( 108 ) @ 8:03:00 AM 152 / 90 ( 118 ) @ 8:17:00 AM 142 / 71 ( 100 ) @ 8:33:00 AM Clinical Evaluation EBL: 5mL-10mL Procedural Details Procedure Consent Obtained. Admit Source: In Patient. Pre-Procedure Time Out. Identified patient by full name and date of as verbalized by the patient/guarantor. Does the consent match the physician's order: Yes. Accurate & Complete Informed Consent: Yes. Inpatient/Outpatient History & Physical on Chart: Yes. If H&P is completed, is and addenduem needed: N/A; If yes, is the addendum complete: N/A. Visualize and Verify Site with Patient/Guarantor: N/A. Relevant Radiology Images available: N/A. Pre-op teaching completed and patient verbalized understanding. The risks, benefits, and alternatives of sedation and/or procedure were discussed by physician. The patient agrees to continue. Procedure started. [facility] Clinical Fraility Score: 4: Vulnerable. Billing Clinician Indications: Worsening Angina. Chest Pain Symptom Assessment: Atypical Angina. Correct patient, site and procedure confirmed by cath team. Current diagnosis: Chest Pain. PERRLA. Strong, equal hand classroom assistant bilaterally. Lungs clear x 5 lobes. IV Site on Arrival: 20 gauge in the left hand. IV Fluids: 0.9% NaCl at KVO. 50 mL infused prior to candlemaking laborer. Pre Procedural Pulses: bilateral radial was 2+. Pre Procedural Pulses: bilateral dorsalis pedis was 1+. Oxygen started at 2liters/min via nasal canula. right groin was prepped with chloroprep then draped in the usual sterile fashion. right radial was prepped with chloroprep then draped in the usual sterile fashion. Physician notified. Baseline sample Acquired. HR: 73 BPM. Physician arrived. Physician scrubbed in. Immediate Pre-Procedure Time Out. Correct Patient: Yes; Correct Procedure: Yes; Correct Site: Yes; Correct Patient Position: Yes; Correct Supplies: Yes; Dried Flammable Prep: Yes Blood Products Available: N/A;. Lidocaine 1% infiltrated to the right radial. Arterial access obtained. A 6 rwandan TIG catheter in over wire. Wire removed. Hand injection performed through the catheter. Glidewire inserted and Elma catheter advanced. Glidewire removed. Multiple views taken of left coronary artery. Catheter redirected to the RCA. Catheter removed over the glide wire. A 5 rwandan JR4 catheter in over wire. Glidewire removed. Multiple views taken of right coronary artery. Dr Posadas readalbertow of cine films. Dr Baker scrubbed out and Dr Posadas scrubbed in to perform intervention. Catheter removed over the glide wire. 6 rwandan XB 3 guide catheter was inserted over the wire. Glidewire removed. IFR guidewire was advanced through the guide catheter to lesion in the mid LAD. Fractional flow reserve measurements obtained. IFR wire removed. Runthrough guidewire was advanced through the guide catheter to lesion in the prox Circ. Balloon inserted to lesion in the prox Circ. Inflation number : 1 A MDT NC EUPHORA RX [id number] BALLOON was prepped and advanced across the Prox CX , then inflated to 8 JOSE ARMANDO for 0:10 seconds. Inflation number: 2 The MDT NC EUPHORA RX [id number] BALLOON was reinflated across the Prox CX, to 12 JOSE ARMANDO for 0:30 seconds. Inflation number: 3 The MDT NC EUPHORA RX 2.37X12AM BALLOON was reinflated across the Prox CX, to 12 JOSE ARMANDO for 0:16 seconds. Inflation number: 4 The MDT NC EUPHORA RX [id number] BALLOON was reinflated across the Prox CX, to 12 JOSE ARMANDO for 0:20 seconds. Balloon backed into the guide catheter and result checked. Balloon out. Stent inserted to lesion in the prox Circ. Intact stent removed due to inability to cross lesion. Guideliner catheter inserted. Stent inserted to lesion in the prox LAD. Inflation Number : 5 A MDT R PRISCILLA 3.0X15 LILIYA -Lot Number# [id number] Exp 01/10/24 was prepped and advanced across the Prox CX. The stent was deployed at 12 JOSE ARMANDO for 0:32 seconds. Stent balloon out over wire. Balloon inserted to lesion in the prox circumflex. Inflation number : 6 A MDT NC EUPHORA RX [id number] BALLOON was prepped and advanced across the Prox CX , then inflated to 12 JOSE ARMANDO for 0:17 seconds. Inflation number: 7 The MDT NC EUPHORA RX [id number] BALLOON was reinflated across the Prox CX, to 16 JOSE ARMANDO for 0:18 seconds. Balloon out. Guideliner catheter removed. Results checked. Runthrough wire removed. ACT drawn. Results 247 seconds. Therapeutic limits - pre-heparin administration 90-150 seconds and monitoring heparin during a vascular procedure >250 seconds. Guide catheter out. Post Procedure: Pulses reassessed and unchanged. PERRLA. Strong, equal hand classroom assistant bilaterally. No VTE prophylaxis required. Medication's Wasted: Nitro = 49.6 mg. Medication's Wasted: Lidocaine 1% = 18 mL. Total IV fluids: 127 mL. PCI Indication: NSTE. Post-op diagnosis: Severe CAD. Complications: none. Estimated blood loss: 5mL-10mL. Responsiveness - Normal response to verbal stimuli; alert and oriented, PERRLA. Airway - Unaffected, no intervention required; spontaneous ventilation. Circulation: W/N/L, pulses unchanged. Nausea/Vomiting: No. Procedure completed. Patient transferred by wheelchair to 1st floor. A TR Band was successful obtaining hemostatsis at the Right Radial artery insertion site. Access Site Site: Right Radial artery Sheath Size: 6 Fr Hemostasis Method: TR Band Hemostasis Success: Successful Procedure Medications Start: 6:18 AM Stop: 6:18 AM Medication: Versed Amount: 1 mg Route: I.V. Start: 6:18 AM Stop: 6:18 AM Medication: Fentanyl Amount: 50 mcg Route: I.V. Start: 6:30 AM Stop: 6:30 AM Medication: Nitrogylcerin Amount: 100 mcg Route: S.Q. Start: 6:34 AM Stop: 6:34 AM Medication: Nitrogylcerin Amount: 200 mcg Route: I.A. Start: 6:35 AM Stop: 6:35 AM Medication: Versed Amount: 1 mg Route: I.V. Start: 6:43 AM Stop: 6:43 AM Medication: Heparin Amount: 5000 units Route: I.V. Start: 7:00 AM Stop: 7:00 AM Medication: Heparin Amount: 4000 units Route: I.V. Start: 7:02 AM Stop: 7:02 AM Medication: Fentanyl Amount: 50 mcg Route: I.V. Start: 7:13 AM Stop: 7:13 AM Medication: Heparin Amount: 1000 units Route: I.V. Start: 7:14 AM Stop: 7:14 AM Medication: Versed Amount: 1 mg Route: I.V. Start: 7:34 AM Stop: 7:34 AM Medication: Nitrogylcerin Amount: 200 mcg Route: I.C. Start: 7:40 AM Stop: 7:40 AM Medication: Heparin Amount: 2000 units Route: I.V. Start: 7:40 AM Stop: 7:40 AM Medication: Plavix Amount: 600 mg I, the attending physician, have reviewed and verified all procedure medications. Yes, all medications given per verbal order History/Risk Factors Hypertension: Yes Dyslipidemia: Yes Peripheral Arterial Disease (PAD): No Myocardial Infarction (WI): No Obesity: Yes Renal Disease: No Tobacco Use: Never Prior Interventions PCI: Yes CABG: No Valve Surgery: No Date of PCI: 06/07/2021 Report Signatures Interventional Workflow Finalized by Bryan Posadas MD on 06/16/2021 12:47 PM Diagnostic Workflow Finalized by María Elena Baker MD on 06/13/2021 10:20 AM
--- NOTE | 2021-06-07 06:16 | W.PM.OPSUD ---
Surgery/Procedure H&P Update DATE OF PROCEDURE: June 07, 2021 DATE H&P PERFORMED: 06/06/21 PREOP DIAGNOSIS: NSTEMI PRIMARY INDICATION FOR PROCEDURE: NSTEMI PLANNED PROCEDURE: Operation Date: 06/07/21 05:30 Proposed Procedures p Cardiac Catheterization(Left) - María Elena Baker MD PATIENT REASSESSED PRIOR TO SEDATION, WITH NO CHANGE NOTED: Yes PHYSICAL EXAM: alert, oriented x 3, clear to auscultation bilaterally and regular rate & rhythm AIRWAY EVAL/ANESTHESIA PLAN: normal airway (airway 3), ASA III, Monitored Anesthesia, Local Anesthesia, Risks, benefits & alternatives of sedation and/or procedure discussed and Patient agrees to continue as planned
--- NOTE | 2021-06-07 08:13 | PC.NURSE ---
Patient blood glucose is 387, nurse is aware.
[2021-06-07 08:26] LABS: Glucose Point of Care 387 mg/dL (70-110)
--- NOTE | 2021-06-07 08:45 | P.PN_ITS ---
Subjective Subjective: patient went for the coronary angiogram Vitals/I&O/Wt Last Vital Signs Temp 97.5 F L 06/07/21 08:00 Pulse 69 06/07/21 08:00 Resp 16 06/07/21 08:00 BP 156/66 06/07/21 08:00 Pulse Ox 97 06/07/21 08:00 06/06/21 06/07/21 06/07/21 22:59 06:59 14:59 Intake Total 65 / 65 0 / 65 Balance 65 / 65 0 / 65 Weight last 48 hrs Weight 95.254 kg Physical Exam Narrative: female S1, S2 No abdominal tenderness Doing well at 2 L nasal cannula Nonfocal neuro exam EOMI, PERRLA Data : 06/07/21 03:50 06/07/21 03:50 A&P Assessment and plan (1) Hyperlipidemia: Status: Acute (2) HTN (hypertension): Status: Acute (3) Pulmonary embolism: Status: Acute (4) DM type 2 (diabetes mellitus, type 2): Status: Acute (5) Non-ST elevation (NSTEMI) myocardial infarction: Status: Acute Plan NSTEMI: Status post NSTEMI Status post angiogram 06/07 Culprit vessel proximal circumflex status post intervention Mid LAD stenosis noted, plan for arthrectomy tomorrow if kidney function stays normal Appreciate cardiology update on the status and recommendations N.p.o. after midnight She can eat today She will need aspirin and Plavix for the PCI of circumflex Full code Sliding scale Dyslipidemia: Continue atorvastatin Check hemoglobin A1c level, previous one was around 10 Hyperglycemia noted Attestations Medical Necessity Statement*: continue hospitalization Time Spent in Patient Care: 30mins Coding Level of Care Code Acute Animal Laboratory Helper for g Fwd Diagnoses Hyperlipidemia E78.5 HTN (hypertension) I10 Pulmonary embolism I26.99 DM type 2 (diabetes mellitus, type 2) E11.9 Non-ST elevation (NSTEMI) myocardial infarction I21.4
[2021-06-07] MEDS: lisinopril 10 mg Tablet PO (08:50)
[2021-06-07] MEDS: metoprolol tartrate 25 mg Tablet PO (08:50)
--- NOTE | 2021-06-07 09:57 | PC.NURSE ---
changed bedding at 0745 and took out dirty charles and trash.
[2021-06-07] MEDS: aspirin 81 mg EC Tablet PO (10:16)
[2021-06-07 11:27] LABS: Glucose Point of Care 479 mg/dL (70-110)
[2021-06-07] MEDS: insulin lispro 100 unit/1 mL SUBCUT ×2 (12:13→17:35)
--- NOTE | 2021-06-07 14:16 | PM.MISC ---
Miscellaneous Note Purpose of Documentation: Preliminary findings on left heart cathetarization: Patent stents. No obstructive CAD. Temporary venous pacemaker placed by Dr. Posadas via left femoral vein. patient briefly lost capture during securing the TVP and had asystole. Prelim echo findings: Normal LV size and function on echocardiogram. Findings discussed with patient, family and Dr. Lanier. Plan for PPM this afternoon by Dr. Lanier.
--- NOTE | 2021-06-07 15:56 | PC.NURSE ---
TR Band removed at this time patient has no hematoma formation, Mild bleeding was noted upon initial start of release hemostasis achieved
[2021-06-07 16:28] LABS: Glucose Point of Care 411 mg/dL (70-110)
--- NOTE | 2021-06-07 17:01 | P.PN_ITS ---
Subjective Subjective: s/p LCx stent Medications: Reviewed: Yes Vitals/I&O/Wt Last Vital Signs Temp 97.9 F 06/07/21 15:43 Pulse 71 06/07/21 16:00 Resp 25 H 06/07/21 16:00 BP 159/106 06/07/21 16:00 Pulse Ox 98 06/07/21 16:00 06/07/21 06/07/21 06/07/21 06:59 14:59 22:59 Intake Total 720 / 720 Balance 720 / 720 Weight last 48 hrs Weight 210 lb Physical Exam Narrative: GENERAL: obese woman laying in bed in no acute distress HEENT: Extraocular movement intact. No pallor or icterus. NECK: central trachea, No JVD No carotid bruit. CARDIOVASCULAR SYSTEM: S1-S2 regular. No S3 or S4 present. No murmur rubs or gallops. RESPIRATORY SYSTEM: Chest clear to auscultation. No wheezes rhonchi or rubs heard. No use of accessory muscles. ABDOMEN: Soft, nontender and nondistended. Normal bowel sounds present. EXTREMITIES: No cyanosis ,No edema. 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 No focal neurological deficits. SKIN: Normal turgor and temperature. No breakdown, rash or nail changes noted. PSYCH: Normal insight and judgment. Data : 06/08/21 02:52 06/08/21 02:52 A&P Assessment and plan (1) Non-ST elevation (NSTEMI) myocardial infarction: s/p LILIYA to LCx. Plan for staged PCI to LAD tomorrow. -continue DAPT, statin, coreg Status: Acute (2) HTN (hypertension): Status: Acute (3) Hyperlipidemia: Status: Acute (4) DM type 2 (diabetes mellitus, type 2): Status: Acute (5) Pulmonary embolism: recent PE; Status: Acute Attestations Medical Necessity Statement*: needs hospital stay for NSTEMI Coding Level of Care Code Acute Statistical Clerk Advertising for [facility] Diagnoses Non-ST elevation (NSTEMI) myocardial infarction I21.4 HTN (hypertension) I10 Hyperlipidemia E78.5 DM type 2 (diabetes mellitus, type 2) E11.9 Pulmonary embolism I26.99
[2021-06-07] MEDS: amlodipine 5 mg Tablet PO (17:34)
--- NOTE | 2021-06-07 18:26 | PC.NURSE ---
This nurse agrees with documentation and medication administration by Geno Mehta Student nurse.
[2021-06-07 20:35] LABS: Glucose Point of Care 483 mg/dL (70-110)
[2021-06-07] MEDS: carvedilol 12.5 mg Tablet PO (21:18)
[2021-06-07] MEDS: atorvastatin 40 mg Tablet 80 MG PO (21:18)
[2021-06-07] MEDS: insulin glargine 100 units/1 mL 30 UNIT SUBCUT (21:19)
[2021-06-07 22:25] LABS: Glucose Point of Care 464 mg/dL (70-110)
[2021-06-07 23:26] LABS: Glucose Point of Care 450 mg/dL (70-110)
--- NOTE | 2021-06-07 23:46 | PC.NURSE ---
Dr. Nieves notified of blood sugar of 483 at 1920. Notified that only Lantus was ordered for patient. Ordered to check again at 0. Notified of blood sugar of 464 at 220. Ordered to check again in one hour. Notified of blood sugar of 450 at 2. Ordered to check again at 6 am.
[2021-06-08] VITALS (23 sets, daily range): BP systolic 113–158; BP diastolic 57–84; PULSE 55–83; RESP 14–25; TEMP 36.1–36.6; O2SAT 84–99
[2021-06-08 03:16] LABS: Basophils # 0.1 10^3/uL (0.0-0.1); Basophils % 0.8 %; Eosinophils # 0.2 10^3/uL (0.0-0.8); Eosinophils % 2.8 %; Hematocrit 32.3 % (37.0-47.0); Lymphocytes # 1.4 10^3/uL (0.8-4.8); Lymphocytes % 17.8 %; Mean Corpuscular HGB Conc 34.1 g/dL (30.0-36.0); Mean Corpuscular Hemoglobin 29.5 pg (28.0-34.0); Mean Corpuscular Volume 86.6 fl (81-99); Monocytes # 0.5 10^3/uL (0.2-0.9); Monocytes % 6.8 %; Neutrophils % 71.3 %; Nucleated Red Blood Cells % 0 %; Platelet Count 302 10^3/cmm (130-400); Red Blood Count 3.73 10^6/uL (4.1-5.3); Red Cell Distribution Width 13.1 % (12.1-15.1)
[2021-06-08 03:37] LABS: Anion Gap 11.9 (5-19); Blood Urea Nitrogen 21 mg/dL (8-23); Calcium 9.2 mg/dL (8.5-10.5); Carbon Dioxide 24 mmol/L (22-29); Chloride 98 mmol/L (98-107); Glomerular Filtration Rate 71.1 mL/min (90-130); Glucose 462 mg/dL (65-115); Osmolality Calculated 293 mOsm/kg (285-295); Potassium 3.9 mmol/L (3.5-5.1); Sodium 130 mmol/L (136-145)
[2021-06-08 06:29] LABS: Glucose Point of Care 409 mg/dL (70-110)
[2021-06-08] MEDS: insulin lispro 100 unit/1 mL SUBCUT ×3 (07:56→17:22)
[2021-06-08] MEDS: lisinopril 10 mg Tablet PO (08:01)
[2021-06-08] MEDS: aspirin 81 mg EC Tablet PO (08:01)
[2021-06-08] MEDS: carvedilol 12.5 mg Tablet PO ×2 (08:01→21:14)
[2021-06-08] MEDS: amlodipine 5 mg Tablet PO (08:01)
[2021-06-08] MEDS: clopidogrel 75 mg Tablet PO (08:01)
[2021-06-08] MEDS: sodium chloride 0.9% 1,000 ML 50 ML IV (08:01)
--- NOTE | 2021-06-08 08:39 | PM.PN ---
Subjective Subjective: This morning patient was not complaining of any chest pain shortness of breath, passing flatus, no active chest pain, she is endorsing dizziness which she experienced while she was try to go to the bathroom Hemodynamically stable Plan for mid LAD arthrectomy and intervention today She is n.p.o. Vitals/I&O/Wt Last Vital Signs Temp 97.5 F L 06/08/21 07:02 Pulse 67 06/08/21 07:02 Resp 20 H 06/08/21 07:02 BP 154/73 06/08/21 07:02 Pulse Ox 96 06/08/21 07:02 06/07/21 06/08/21 06/08/21 22:59 06:59 14:59 Intake Total 1240 / 1959 Output Total 500 / 500 Balance 1240 / 1960 -500 / 1460 Weight last 48 hrs Weight 95.254 kg Physical Exam Narrative: Patient was comfortable This morning patient was lying comfortably in her bed S1, S2 No signs of dehydration No active chest pain Right radial site without any complications Nonfocal neuro exam She is euvolemic Saturating well on room air Data : 06/08/21 02:52 06/08/21 02:52 A&P Assessment and plan (1) Hyperlipidemia: Status: Acute (2) HTN (hypertension): Status: Acute (3) Non-ST elevation (NSTEMI) myocardial infarction: Status: Acute Plan Patient is n.p.o. 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
--- NOTE | 2021-06-08 10:40 | XACV_ITS ---
Exam Room: [facility] Ht: 165 cm Wt: 95 kg BSA: 2.13 m2 Gender: Female : 1950 Any Known Allergies: Other Exam Priority: Routine Indication(s): - Non-ST elevation AK Procedure(s): Procedure Description: Diagnostic procedure Procedure Description: PCI procedure Procedure Description: Drug Eluting Coronary Stent Procedure Description: Coronary Atherectomy Procedure Description: Miscellaneous Procedure Description: ACT Procedure Description: Coronary Angiography Diagnostic Cath Status: Urgent Diagnostic Findings * Circumflex has patent stent. * Right Coronary Artery not injected. * Proximal Left Anterior Descending to Mid Left Anterior Descending: obstructive, heavily calcified 70% stenosis, RADU: 3 flow. * This is a staged PCI of proximal to mid LAD with orbital arthrectomy. For complete diagnostic catheter report, please refer to procedure from 06/07/2021. * Left Main has no disease. * Coronary angiography shows right dominance. PCI Status: Urgent PCI Indication: Staged PCI Interventional Findings * Procedure detail: We engaged left main artery with XB 3.5 guide catheter. Using Viper wire, we crossed proximal to mid LAD stenotic lesions. Orbital arthrectomy was performed. This was followed by balloon angioplasty with 2.75 x 15 mm semicompliant balloon. We then placed a 3.0 x 38 mm resolute Priscilla drug-eluting stent. Proximal part of the stent was postdilated with 3.25 x 12 mm NC balloon. At this time final angiogram was performed that showed excellent stent expansion, RADU-3 flow and no residual stenosis. Guidewire and guide catheter were removed. Patient left the Dietary Aide in a stable condition. * Proximal Left Anterior Descending to Mid Left Anterior Descendin% stenosis treated with a AB TREK 2.75X15 RX BALLOON, MDT R PRISCILLA 3.0X34 LILIYA, and MDT GLORIA EUPHORA RX [id number] BALLOON. 0% residual stenosis, RADU: 3 flow. * Mid Left Anterior Descendin% stenosis treated with a AB TREK 2.75X15 RX BALLOON. 0% residual stenosis, RADU: 3 flow. Conclusions 1. Severe proximal to mid LAD stenosis, confirmed with IFR 2. performed on 06/07/2021 3. . Status post successful revascularization with orbital arthrectomy and 4. LILIYA x1.. 5. Proximal Left Anterior Descending to Mid Left Anterior Descending was treated with a Balloon, Drug Eluting Stent, and Balloon. 6. Mid Left Anterior Descending was treated with a Balloon. Recommendations * Transfer to [facility]. * Aspirin Plavix for at least 1 year. * High intensity statin therapy. * Outpatient cardiology follow-up in 4 weeks. Interventional RX Recommendation: PCI w/o planned CABG Diagnostic RX Recommendation: PCI w/o planned CABG Anticoagulation: Heparin Pressures Phase:Rest AO : 115 / 49 ( 72 ) @ 12:09:00 PM Clinical Evaluation EBL: 5mL-10mL Procedural Details Pre-Procedure Time Out. Identified patient by full name and date of as verbalized by the patient/guarantor. Does the consent match the physician's order: Yes. Accurate & Complete Informed Consent: Yes. Inpatient/Outpatient History & Physical on Chart: Yes. If H&P is completed, is and addenduem needed: No; If yes, is the addendum complete: N/A. Visualize and Verify Site with Patient/Guarantor: N/A. Relevant Radiology Images available: Yes. Pre-op teaching completed and patient verbalized understanding. The risks, benefits, and alternatives of sedation and/or procedure were discussed by physician. The patient agrees to continue. Procedure started. [facility] Clinical Fraility Score: 3: Managing Well. Dietary Aide Indications: Other, NONSTEMI, STAGED PCI OF LAD. Chest Pain Symptom Assessment: Typical Angina Symptoms. Cardiovascular Instability: No, stable. Correct patient, site and procedure confirmed by cath team. Current diagnosis: NSTEMI, staged PCI of LAD. PERRLA. Strong, equal hand housing manager bilaterally. Lungs clear x 5 lobes. IV Site on Arrival: 20 gauge in the left hand. IV Fluids: 0.9% NaCl at KVO. 900 mL infused prior to custodial laborer. Pre Procedural Pulses: bilateral dorsalis pedis was Doppled. Pre Procedural Pulses: bilateral posterior tibial was Doppled. Pre Procedural Pulses: bilateral radial was 2+. Oxygen started at 3liters/min via nasal canula. right groin was prepped with chloroprep then draped in the usual sterile fashion. right radial was prepped with chloroprep then draped in the usual sterile fashion. Physician notified. Baseline sample Acquired. HR: 65 BPM. Physician arrived. Physician scrubbed in. Immediate Pre-Procedure Time Out. Correct Patient: Yes; Correct Procedure: Yes; Correct Site: Yes; Correct Patient Position: Yes; Correct Supplies: Yes; Dried Flammable Prep: Yes; Blood Products Available: N/A;. Lidocaine 1% infiltrated to the right radial. Arterial access obtained. Hemodynamic formulas in Rest were re-calculated based on hemoglobin value from 06/08/2021 2:52:00 AM. 6 mongolian XB 3.5 guide catheter was inserted over the wire. Inventory is [facility] 6 FR XB 3.5 GUIDE. Guide seated in the LCS. Viperwire inserted to the lesion in the LAD. Viperwire advanced across the lesion in the mid LAD. ACT drawn. Results 354 seconds. Therapeutic limits - pre-heparin administration 90-150 seconds and monitoring heparin during a vascular procedure >250 seconds. AP pads placed by circulating RN. 1.25 mm CSI Dennison inserted over the wire. viviana tested out of the body before insertion. Coronary atherectomy performed x 4 runs 25 seconds each time. Atherectomy viviana out over the wire. Teleport catheter inserted and advanced down the LAD. Viperwire removed. 300 cm Runthrough inserted to the LAD. Teleport catheter removed over the runthrough wire. Angiography performed. Inflation number : 1 A AB TREK 2.75X15 RX BALLOON was prepped and advanced across the Mid LAD , then inflated to 12 JOSE ARMANDO for 0:16 seconds. Inflation number: 2 The AB TREK 2.75X15 RX BALLOON was reinflated across the Mid LAD, to 12 JOSE ARMANDO for 0:19 seconds. Inflation number: 1 The AB TREK 2.75X15 RX BALLOON was reinflated across the Prox LAD, to 12 JOSE ARMANDO for 0:23 seconds. Balloon out over the wire. Inflation Number : 2 A MDT R PRISCILLA 3.0X34 LILIYA -Lot Number# [id number] was prepped and advanced across the Prox LAD. The stent was deployed at 12 JOSE ARMANDO for 0:28 seconds. EXP 02-18-24. Angiography performed. Stent balloon out over wire. Angiography performed. Inflation number : 3 A MDT NC EUPHORA RX [id number] BALLOON was prepped and advanced across the Prox LAD , then inflated to 12 JOSE ARMANDO for 0:22 seconds. Inflation number: 4 The MDT NC EUPHORA RX [id number] BALLOON was reinflated across the Prox LAD, to 12 JOSE ARMANDO for 0:24 seconds. Angiography performed. Inflation number: 5 The MDT NC EUPHORA RX [id number] BALLOON was reinflated across the Prox LAD, to 12 JOSE ARMANDO for 0:16 seconds. Angiography performed. Balloon out. Wire out. Angiography performed. Guide catheter out. Physician review of films. Physician scrubbed out. A TR Band was successful obtaining hemostatsis at the Right Radial artery insertion site. TR band placed. Hemostasis obtained. Post Procedure: Pulses reassessed and unchanged. PERRLA. Strong, equal hand housing manager bilaterally. No VTE prophylaxis required. Medication's Wasted: Lidocaine 1% = 18 mL. Medication's Wasted: Nitro = 49.7 mg. Medication's Wasted: Fentanyl = 25 mcg. Medication's Wasted: Versed = 0.5 mg. Total IV fluids: 385 mL. Medication's Wasted: Heparin = 1000 units. Fluoro: 13:02. ACT drawn. Results 374 seconds. Therapeutic limits - pre-heparin administration 90-150 seconds and monitoring heparin during a vascular procedure >250 seconds. Contrast type used: Visipaque 320 mgI/mL, 200 mL bottle. [id number]. Post-op diagnosis: Severe Proximal to Mid LAD stenosis. Complications: None. Estimated blood loss: 5mL-10mL. Responsiveness - Normal response to verbal stimuli; alert and oriented, PERRLA. Airway - Unaffected, no intervention required; spontaneous ventilation. Circulation: W/N/L, pulses unchanged. Nausea/Vomiting: No. Procedure completed. Patient transferred by bed to 1st floor. Vital chart was stopped. Access Site Site: Right Radial artery Sheath Size: 6 Fr Hemostasis Method: TR Band Hemostasis Success: Successful Procedure Medications Start: 10:56 AM Stop: 10:56 AM Medication: Versed Amount: 1 mg Route: I.V. Start: 10:57 AM Stop: 10:57 AM Medication: Fentanyl Amount: 50 mcg Route: I.V. Start: 11:00 AM Stop: 11:00 AM Medication: Nitrogylcerin Amount: 200 mcg Route: I.A. Start: 11:04 AM Stop: 11:04 AM Medication: Heparin Amount: 9000 units Route: I.V. Start: 11:27 AM Stop: 11: AM Medication: Heparin Amount: 1000 units Route: I.V. Start: 11:28 AM Stop: 11:28 AM Medication: Versed Amount: 0.5 mg Route: I.V. Start: 11:28 AM Stop: 11:28 AM Medication: Fentanyl Amount: 25 mcg Route: I.V. Start: 11:37 AM Stop: 11:37 AM Medication: 0.9% Saline Amount: 250 ml Route: I.V. bolus Start: 11:37 AM Stop: 11:37 AM Medication: Nitrogylcerin Amount: 100 mcg Route: I.C. I, the attending physician, have reviewed and verified all procedure medications. Yes, all medications given per verbal order History/Risk Factors Hypertension: Yes Dyslipidemia: Yes Peripheral Arterial Disease (PAD): No Myocardial Infarction (AK): No Obesity: Yes Renal Disease: No Tobacco Use: Never Prior Interventions PCI: Yes CABG: No Valve Surgery: No Date of PCI: 06/07/2021 Report Signatures Finalized by Bryan Posadas MD on 06/16/2021 11:16 PM
--- NOTE | 2021-06-08 10:41 | PC.CHAP ---
Pastoral Care Encounter/Spiritual Assessment Type of Contact [] Declined environmental health and safety leader visit [] Patient/Family/Request visit [] Outpatient visit [] Follow-up visit [] Physician referral [] Code/Alert [x] Routine visit [] Staff referral [] Actively dying [x] Patient sleeping [] Family support [] [] Out of room [] Palliative care [] [] Receiving care in room [] Pre-surgical visit [] Trauma [] Long length of stay [] ICU visit [] Other: Relational/Emotional Strength [] Patient feels connected with others/family/visitors/staff [] Distress [] Loneliness/isolation [] Abandonment Spirituality of Patient [] Person of Tanja [] Attends Anabaptist of their Tanja [] Believes in Prayer [] Reads Bible or Baptism materials [] There are Spiritual issues to be addressed Tire Cord Weaver Interventions [x] Prayer [] Active listening [] Non-anxious presence [] Spiritual/emotional support [] Crisis/trauma care [] Spiritual counseling [] Bereavement support [] Provided bereavement packet [] Provided Bible/devotional materials [] Provided toy/stuffed animal, coloring book to patient or family member [] Provided Communion [] Anointing/[place] [] Salvation [x] Completed spiritual assessment [] Other: Impact on Illness or Injury [] Angry [] Fearful [] Anxious [] Often cries [] Exhaustion [] Unable to work [] Unable to attend religion [] Unable to walk/stand [] Unable to read [] Unable to drive [] Unable to eat/drink [] Unable to sleep [] Unable to be with family [] Patient intubated [] Other: Summary Time spent with patient
--- NOTE | 2021-06-08 10:53 | W.PM.OPSUD ---
Surgery/Procedure H&P Update DATE OF PROCEDURE: June 08, 2021 DATE H&P PERFORMED: 06/07/21 H&P UPDATE INFORMATION: I have reviewed H&P completed within last 30 days, I have examined patient prior to procedure and No changes to prior documentation PREOP DIAGNOSIS: NSTEMI PRIMARY INDICATION FOR PROCEDURE: NSTEMI/ Staged PCI of LAD with arthrectomy PLANNED PROCEDURE: Operation Date: 06/08/21 09:10 Proposed Procedures p Staged PCI of LAD(Not Applicable) - Bryan Posadas M.D PATIENT REASSESSED PRIOR TO SEDATION, WITH NO CHANGE NOTED: Yes PHYSICAL EXAM: alert, oriented x 3, clear to auscultation bilaterally and regular rate & rhythm AIRWAY EVAL/ANESTHESIA PLAN: ASA III, Monitored Anesthesia, Local Anesthesia, Risks, benefits & alternatives of sedation and/or procedure discussed and Patient agrees to continue as planned
[2021-06-08 12:08] LABS: Glucose Point of Care 268 mg/dL (70-110)
[2021-06-08 16:25] LABS: Glucose Point of Care 256 mg/dL (70-110)
[2021-06-08] MEDS: insulin glargine 100 units/1 mL 30 UNIT SUBCUT (21:05)
[2021-06-08] MEDS: insulin lispro 100 unit/1 mL 8 UNIT SUBCUT (21:05)
[2021-06-08] MEDS: atorvastatin 40 mg Tablet 80 MG PO (21:06)
[2021-06-08 21:14] LABS: Glucose Point of Care 408 mg/dL (70-110)
[2021-06-08 23:49] LABS: Glucose Point of Care 349 mg/dL (70-110)
[2021-06-09 04:08] VITALS: BP 148/67; PULSE 75; RESP 21; TEMP 36.6; O2SAT 93
[2021-06-09 05:46] LABS: Basophils # 0.1 10^3/uL (0.0-0.1); Basophils % 0.8 %; Eosinophils # 0.3 10^3/uL (0.0-0.8); Eosinophils % 3.6 %; Hematocrit 30.6 % (37.0-47.0); Hemoglobin 10.6 g/dL (11.5-15.3); Lymphocytes # 1.3 10^3/uL (0.8-4.8); Lymphocytes % 16.7 %; Mean Corpuscular HGB Conc 34.6 g/dL (30.0-36.0); Mean Corpuscular Hemoglobin 29.8 pg (28.0-34.0); Mean Platelet Volume 10.3 fL (7.4-10.4); Monocytes # 0.4 10^3/uL (0.2-0.9); Monocytes % 5.6 %; Neutrophils # 5.49 10^3/uL (1.8-7.7); Neutrophils % 72.8 %; Nucleated Red Blood Cells % 0 %; Platelet Count 296 10^3/cmm (130-400); Red Blood Count 3.56 10^6/uL (4.1-5.3); Red Cell Distribution Width 13.3 % (12.1-15.1); White Blood Count 7.5 10^3/uL (4.0-10.0)
[2021-06-09 06:00] VITALS: PULSE 72
[2021-06-09 06:02] LABS: Anion Gap 13.8 (5-19); Blood Urea Nitrogen 16 mg/dL (8-23); Calcium 9.3 mg/dL (8.5-10.5); Carbon Dioxide 24 mmol/L (22-29); Chloride 99 mmol/L (98-107); Glucose 327 mg/dL (65-115); Osmolality Calculated 290 mOsm/kg (285-295); Potassium 3.8 mmol/L (3.5-5.1); Sodium 133 mmol/L (136-145)
[2021-06-09 06:34] LABS: Glucose Point of Care 340 mg/dL (70-110)
[2021-06-09 07:21] VITALS: BP 151/89; PULSE 73; RESP 15; TEMP 37.1; O2SAT 98
[2021-06-09] MEDS: insulin lispro 100 unit/1 mL SUBCUT (08:32)
[2021-06-09] MEDS: lisinopril 10 mg Tablet PO (08:33)
[2021-06-09] MEDS: aspirin 81 mg EC Tablet PO (08:33)
[2021-06-09] MEDS: clopidogrel 75 mg Tablet PO (08:33)
[2021-06-09] MEDS: amlodipine 5 mg Tablet PO (08:33)
[2021-06-09] MEDS: carvedilol 12.5 mg Tablet PO (08:37)
--- NOTE | 2021-06-09 10:02 | PM.PN ---
Subjective Subjective: s/p LCx and LAD stents Medications: Reviewed: Yes Vitals/I&O/Wt Last Vital Signs Temp 98.8 F 06/09/21 07:21 Pulse 73 06/09/21 07:21 Resp 15 06/09/21 07:21 BP 151/89 06/09/21 07:21 Pulse Ox 98 06/09/21 07:21 06/08/21 06/09/21 06/09/21 22:59 06:59 14:59 Intake Total 300 / 540 100 / 640 230 / 230 Output Total 200 / 200 450 / 650 Balance 100 / 340 -350 / -10 230 / 230 Physical Exam Narrative: GENERAL: obese woman laying in bed in no acute distress HEENT: Extraocular movement intact. No pallor or icterus. NECK: central trachea, No JVD No carotid bruit. CARDIOVASCULAR SYSTEM: S1-S2 regular. No S3 or S4 present. No murmur rubs or gallops. RESPIRATORY SYSTEM: Chest clear to auscultation. No wheezes rhonchi or rubs heard. No use of accessory muscles. ABDOMEN: Soft, nontender and nondistended. Normal bowel sounds present. EXTREMITIES: No cyanosis ,No edema. Right femoral access site with no significant bruising or hematoma. GAUGE CONTROLLER: Patient is alert oriented ?3. No focal neurological deficits. SKIN: Normal turgor and temperature. No breakdown, rash or nail changes noted. PSYCH: Normal insight and judgment. Data : 06/09/21 04:55 06/09/21 04:55 A&P Assessment and plan (1) Non-ST elevation (NSTEMI) myocardial infarction: s/p LILIYA to LCx and LAD. -continue plavix and Eliquis on discharge, statin, coreg. -advised on compliance -f/u in 1 week with Ms. Sanders and 2 months with me. -advised on strict diabetes control. -will need to be set up for cardiac rehab -advised on cardiac diet. Status: Acute (2) HTN (hypertension): May resume home meds Status: Acute (3) Hyperlipidemia: Status: Acute (4) DM type 2 (diabetes mellitus, type 2): Status: Acute (5) Pulmonary embolism: recent PE; Status: Acute Attestations Medical Necessity Statement*: stable to be discharged. Coding Level of Care Code Acute Loom Stop Checker for Chg Fwd Exam Expanded Problem Focused Diagnoses Non-ST elevation (NSTEMI) myocardial infarction I21.4 HTN (hypertension) I10 Hyperlipidemia E78.5 DM type 2 (diabetes mellitus, type 2) E11.9 Pulmonary embolism I26.99
[2021-06-09 10:53] VITALS: BP 162/76; PULSE 77; RESP 18; TEMP 36.4; O2SAT 95
--- NOTE | 2021-06-09 10:54 | P.DES_ITS ---
Discharge Providers DDS Date of Admission: 06/06/21 17:22 Date Summary Completed: 06/09/21 Attending Provider at Admission: Rose Alcazar MD Attending Provider at Discharge: Rose Alcazar MD Primary Care Provider: DO PHILIP Franklin Diagnoses Hospital Diagnoses (1) Non-ST elevation (NSTEMI) myocardial infarction: (2) HTN (hypertension): (3) Hyperlipidemia: (4) DM type 2 (diabetes mellitus, type 2): (5) Pulmonary embolism: Reason for Visit Reason for Visit CHEST PAIN/ SOB Summary Additional Data Advance directives?: Yes Discharge Plan Discharge Patient Disposition: Home Condition: Stable Prescriptions: New clopidogrel 75 mg Tablet 75 mg PO DAILY Qty: 90 4RF atorvastatin 40 mg Tablet 80 mg PO BEDTIME Qty: 60 4RF carvedilol 12.5 mg Tablet 12.5 mg PO 0900,2100 Qty: 60 4RF lisinopril 10 mg Tablet 10 mg PO DAILY Qty: 60 3RF Continued Lantus U-100 Insulin 100 unit/mL solution 40 unit SUBCUT BEDTIME 0RF amlodipine 10 mg tablet 10 mg PO QAM 0RF losartan 100 mg tablet 100 mg PO QAM 0RF fenofibrate nanocrystallized 145 mg tablet 145 mg PO BEDTIME 0RF Jardiance 10 mg tablet 10 mg PO QAM 0RF ondansetron HCl [Zofran] 4 mg tablet 4 mg PO Q6H PRN (Reason: nausea and vomiting) Qty: 14 0RF Eliquis 5 mg Tablet 5 mg PO BID 0RF Held metformin 1,000 mg tablet 1,000 mg PO BID 0RF Hold Instructions: Resume on 06/11/21. Hold on 06/09 and 06/10. Discontinued carvedilol 25 mg Tablet 25 mg PO BID 0RF Rx Instructions: must administer with a meal/food Discharge Orders: Discharge Order (Routine); Ordered 06/09/21 Ordered By: Rose Alcazar Referrals: Valarie Sanders FNP [Nurse Practitioner] - 06/16/21 1:15 pm Matthew Geller DO [Primary Care Provider] - 06/14/21 10:30 am María Elena Baker MD [Physician] - 09/07/21 11:15 am Discharge Diet: Cardiac Discharge Activity: Increase activity as tolerated Patient Instructions: Clopidogrel (By mouth) (Plavix), Coronary Angioplasty (DC), Opioid Safety Activity Restrictions/Additional Instructions: Do not lift anything more than 5 lbs for 1 week. Keep the site dry and clean Take medications as prescribed and follow up as scheduled. Not tub baths or swimming for 1 week. You will be set up for cardiac rehab at 1 week follow up visit (Discuss with Valarie Sanders). DS Attestations Quality - VTE: Deep Vein Thrombosis/Pulmonary Embolism Present on Admission: No Coding Level of Care Code Acute Wood Web Weaving Machine Operator for Chg Fwd Diagnoses Non-ST elevation (NSTEMI) myocardial infarction I21.4 HTN (hypertension) I10 Hyperlipidemia E78.5 DM type 2 (diabetes mellitus, type 2) E11.9 Pulmonary embolism I26.99
--- NOTE | 2021-06-09 10:55 | P.DS_ITS ---
Discharge Providers Date of Admission: 06/06/21 17: Date of Discharge: June 09, 2021 Attending Provider at Admission: Rose Alcazar MD Attending Provider at Discharge: Rose Alcazar MD Primary Care Provider: Matthew Geller DO Diagnoses at Discharge Discharge Diagnosis (1) Non-ST elevation (NSTEMI) myocardial infarction: Status: Acute (2) HTN (hypertension): Status: Acute (3) Hyperlipidemia: Status: Acute (4) DM type 2 (diabetes mellitus, type 2): Status: Acute (5) Pulmonary embolism: Status: Acute Reason for Visit Reason for Visit: CHEST PAIN/ SOB Hospital Course Hospital Course 70-year-old female who was admitted for management evaluation of NSTEMI, ACS protocol was initiated at the time of admission, first coronary angiogram via right radial 06/07 showed stenosis of circumflex as culprit vessel, status post PCI. Mid LAD significant stenosis was noted, Dr. Posadas plan for arthrectomy next day. 06/08 patient went for LAD arthrectomy with PCI. She carries history of recent pulmonary embolism. After coronary artery stents in circumflex and LAD patient did endorse improvement in her dizziness and shortness of breath. She did not experience chest pain during hospitalization. No postoperative complications. Kidney function remained normal. She will be discharged on Plavix and Eliquis with close follow-up with cardiology. Case was discussed with Dr. Baker at the time of discharge. Physical Exam Narrative: Patient was comfortable This morning patient was lying comfortably in her bed S1, S2 No signs of dehydration No active chest pain Right radial site without any complications Nonfocal neuro exam She is euvolemic Saturating well on room air Discharge Data Studies Completed and Pending Completed Studies During Hospitalization Category Date Time Status XR chest 1V portable [id number] Stat Exams 06/06/21 12:55 Completed CV. echo complete* [id number] Urgent Ultrasound 06/06/21 17:05 Completed Pending at discharge Category Date Time Status RIB PULLER request for service Routine Exams 06/07/21 06:00 Taken RIB PULLER request for service Routine Exams 06/08/21 10:40 Taken Radiology Impressions Chest X-Ray 06/06/21 12:55 IMPRESSION: No acute findings. Laboratory Results WBC 7.5 10^3/uL (4.0-10.0) 06/09/21 04:55 RBC 3.56 10^6/uL (4.1-5.3) L 06/09/21 04:55 Hgb 10.6 g/dL (11.5-15.3) L 06/09/21 04:55 Hct 30.6 % (37.0-47.0) L 06/09/21 04:55 MCV 86.0 fl (81-99) 06/09/21 04:55 MCH 29.8 pg (28.0-34.0) 06/09/21 04:55 MCHC 34.6 g/dL (30.0-36.0) 06/09/21 04:55 RDW 13.3 % (12.1-15.1) 06/09/21 04:55 Plt Count 296 10^3/cmm (130-400) 06/09/21 04:55 MPV 10.3 fL (7.4-10.4) 06/09/21 04:55 Neut % (Auto) 72.8 % 06/09/21 04:55 Lymph % (Auto) 16.7 % 06/09/21 04:55 [place] % (Auto) 5.6 % 06/09/21 04:55 Eos % (Auto) 3.6 % 06/09/21 04:55 Baso % (Auto) 0.8 % 06/09/21 04:55 Neut # (Auto) 5.49 10^3/uL (1.8-7.7) 06/09/21 04:55 Lymph # (Auto) 1.3 10^3/uL (0.8-4.8) 06/09/21 04:55 [place] # (Auto) 0.4 10^3/uL (0.2-0.9) 06/09/21 04:55 Eos # (Auto) 0.3 10^3/uL (0.0-0.8) 06/09/21 04:55 Baso # (Auto) 0.1 10^3/uL (0.0-0.1) 06/09/21 04:55 Nucleated RBC % (auto) 0 % 06/09/21 04:55 Nucleated RBCs # 0.0 /100WBC 06/09/21 04:55 D-Dimer <= 0.27 ug/mIFEU (0-0.59) 06/06/21 13:00 Sodium 133 mmol/L (136-145) L 06/09/21 04:55 Potassium 3.8 mmol/L (3.5-5.1) 06/09/21 04:55 Chloride 99 mmol/L (98-107) 06/09/21 04:55 Carbon Dioxide 24 mmol/L (22-29) 06/09/21 04:55 Anion Gap 13.8 (5-19) 06/09/21 04:55 BUN 16 mg/dL (8-23) 06/09/21 04:55 Creatinine 0.7 mg/dL (0.5-0.9) 06/09/21 04:55 GFR Calculation 83.0 mL/min (90-130) L 06/09/21 04:55 Glucose 327 mg/dL (65-115) H 06/09/21 04:55 POC Glucose 340 mg/dL (70-110) H 06/09/21 06:28 Calculated Osmolality 290 mOsm/kg (285-295) 06/09/21 04:55 Calcium 9.3 mg/dL (8.5-10.5) 06/09/21 04:55 Magnesium 2.0 mg/dL (1.7-2.3) 06/07/21 03:50 Total Bilirubin 0.4 mg/dL (0.15-1.2) 06/06/21 14:26 AST 24 U/L (0-32) 06/06/21 14:26 ALT 8 U/L (0-33) 06/06/21 14:26 Alkaline Phosphatase 52 IU/L (35-105) 06/06/21 14:26 Troponin T Baseline 559 ng/L (0-10) H* 06/06/21 14:26 Troponin T 120 Minute 542.0 ng/L (0-10) H 06/06/21 16:19 Delta Troponin T -17.0 ABS# (0-10) L 06/06/21 16:19 Troponin T Hi Sens 6Hr 629.5 ng/L (0-10) H 06/06/21 20:09 Troponin T Hi Sens 6Hr Delta 70.5 ng/L (0-12) H* 06/06/21 20:09 C-React Prot High Sens 3.570 mg/dL (0.0-0.3) H 06/08/21 02:52 NT-Pro-B Natriuret Pep 4416 pg/mL (0-125) H 06/06/21 14:26 Total Protein 7.0 g/dL (6.6-8.7) 06/06/21 14:26 Albumin 4.1 g/dL (3.5-5.2) 06/06/21 14:26 Globulin 2.9 g/dL (1.3-4.6) 06/06/21 14:26 Triglycerides 320 mg/dL (0-150) H 06/07/21 03:50 Cholesterol 234 mg/dL (0-200) H 06/07/21 03:50 LDL Cholesterol Direct 131 mg/dL (0-100) H 06/07/21 03:50 LDL Cholesterol, Calc 138 mg/dL (50-129) H 06/07/21 03:50 HDL Cholesterol 32 mg/dL (60-100) L 06/07/21 03:50 LDL/HDL Ratio 4.31 RATIO (0.00-3.22) H 06/07/21 03:50 Cholesterol/HDL Ratio 7.31 mg/dL (0.0-4.40) H 06/07/21 03:50 Lipase 23 U/L (13-60) 06/06/21 14:26 Urine Color Yellow (Yellow) 06/06/21 13:33 Urine Appearance Hazy (CLEAR) A 06/06/21 13:33 Urine pH 6 (5-7) 06/06/21 13:33 Ur Specific [place] 1.020 (1.005-1.030) 06/06/21 13:33 Urine Protein 3+ (Negative) H 06/06/21 13:33 Urine Glucose (UA) 4+ (Normal) H 06/06/21 13:33 Urine Ketones 1+ (Negative) H 06/06/21 13:33 Urine Blood 2+ (Negative) H 06/06/21 13:33 Urine Nitrate Negative (Negative) 06/06/21 13:33 Urine Bilirubin Neg (Negative) 06/06/21 13:33 Urine Urobilinogen Norm mg/dL (Negative) 06/06/21 13:33 Ur Leukocyte Esterase 1+ (Negative) H 06/06/21 13:33 Urine RBC 5-10 /hpf (0-2) H 06/06/21 13:33 Urine WBC 10-15 /hpf (0-5) H 06/06/21 13:33 Ur Squamous Epith Cells 10-15 /hpf (0-5) H 06/06/21 13:33 Amorphous Sediment Not Reportable 06/06/21 13:33 Urine Bacteria 2+ /hpf (NONE) H 06/06/21 13:33 Coronavirus 229E (PCR) Not detected (NOT DETECT) 06/06/21 13:15 SARS-CoV-2 (PCR) Not detected (NOT DETECT) 06/06/21 13:15 Vitals Last Vital Signs Temp 97.6 F 06/09/21 10:53 Pulse 77 06/09/21 10:53 Resp 18 06/09/21 10:53 BP 162/76 06/09/21 10:53 Pulse Ox 95 06/09/21 10:53 Discharge Plan Discharge Patient Disposition: Home Condition: Stable Prescriptions: New clopidogrel 75 mg Tablet 75 mg PO DAILY Qty: 90 4RF atorvastatin 40 mg Tablet 80 mg PO BEDTIME Qty: 60 4RF carvedilol 12.5 mg Tablet 12.5 mg PO 0900,2100 Qty: 60 4RF lisinopril 10 mg Tablet 10 mg PO DAILY Qty: 60 3RF nitroglycerin 0.4 mg Tablet, Sublingual 0.4 mg sublingual Q5M PRN (Reason: Chest Pain) Qty: 25 6RF Continued Lantus U-100 Insulin 100 unit/mL solution 40 unit SUBCUT BEDTIME 0RF amlodipine 10 mg tablet 10 mg PO QAM 0RF losartan 100 mg tablet 100 mg PO QAM 0RF fenofibrate nanocrystallized 145 mg tablet 145 mg PO BEDTIME 0RF Jardiance 10 mg tablet 10 mg PO QAM 0RF ondansetron HCl [Zofran] 4 mg tablet 4 mg PO Q6H PRN (Reason: nausea and vomiting) Qty: 14 0RF Eliquis 5 mg Tablet 5 mg PO BID 0RF Held metformin 1,000 mg tablet 1,000 mg PO BID 0RF Hold Instructions: Resume on 06/11/21. Hold on 06/09 and 06/10. Discontinued carvedilol 25 mg Tablet 25 mg PO BID 0RF Rx Instructions: must administer with a meal/food Discharge Orders: Discharge Order (Routine); Ordered 06/09/21 Ordered By: Rose Alcazar Referrals: Valarie Sanders FNP [Nurse Practitioner] - 06/16/21 1:15 pm Matthew Geller DO [Primary Care Provider] - 06/14/21 10:30 am María Elena Baker MD [Physician] - 09/07/21 11:15 am Discharge Diet: Cardiac Discharge Activity: Increase activity as tolerated Patient Instructions: Clopidogrel (By mouth) (Plavix), Heart Attack (DC), Coronary Angioplasty (DC), Pulmonary Embolism (DC), Opioid Safety, Post Angiogram Home Care Instructions Activity Restrictions/Additional Instructions: Do not lift anything more than 5 lbs for 1 week. Keep the site dry and clean Take medications as prescribed and follow up as scheduled. Not tub baths or swimming for 1 week. You will be set up for cardiac rehab at 1 week follow up visit (Discuss with Valarie Sanders). Discharge Attestations Time Spent in Discharge Care*: less than 30 min Status at Discharge: Cognitive status at discharge: mildly impaired cognition , Behavioral status at discharge: cooperative , Quality Metrics Clinical Quality Measures [ No reported AMI, CVA or VTE this stay] Coding Level of Care Code Acute Chg FW DC note Diagnoses Non-ST elevation (NSTEMI) myocardial infarction I21.4 HTN (hypertension) I10 Hyperlipidemia E78.5 DM type 2 (diabetes mellitus, type 2) E11.9 Pulmonary embolism I26.99
[2021-06-09 11:09] VITALS: BP 162/76; PULSE 77; RESP 18; TEMP 36.4; O2SAT 95
[2021-06-09 11:11] VITALS: BP 162/76; PULSE 88; RESP 18; O2SAT 95
[2021-06-09 11:34] LABS: Glucose Point of Care 440 mg/dL (70-110)
== END 2021-06-09 11:42 | disposition home or self-care (01) | DRG 247 ==
LOC: ER 15:59 → CSU 17:22
PROVIDERS: Internal Medicine; Internal Medicine Cardiovascular Disease; Admitting Provider Internal Medicine; Emergency Provider Emergency Medicine; PCP Family Medicine; Visit Provider Internal Medicine
PROC: 027034Z Dilation of Coronary Artery, One Artery with Drug-eluting Intraluminal Device, Percutaneous Approach (ICD-10-PCS; 2021-06-07 05:30)
PROC: 02C03Z7 Extirpation of Matter from Coronary Artery, One Artery, Orbital Atherectomy Technique, Percutaneous Approach (ICD-10-PCS; principal; 2021-06-08 09:10)
DX: I21.4 Non-ST elevation (NSTEMI) myocardial infarction (principal); I25.10 Atherosclerotic heart disease of native coronary artery without angina pectoris; Z86.711 Personal history of pulmonary embolism; I10 Essential (primary) hypertension; E11.9 Type 2 diabetes mellitus without complications; E78.5 Hyperlipidemia, unspecified; Z79.4 Long term (current) use of insulin; Z79.84 Long term (current) use of oral hypoglycemic drugs; Z79.01 Long term (current) use of anticoagulants
CPT/HCPCS: 36415; 36416; 71045; 80048; 80053; 80061; 81001; 82962; 83690; 83721; 83735; 83880; 84484; 85025; 85347; 85378; 86141; 87635; 92924; 93005; 93306; 93454; 93571; 96365; 96366; 96372; 96375; 99285; C1724; C1725; C1769; C1874; C1887; C1894; C9600; C9602; J1644; J1650; J1815 ×2; J2250; J3010; J3480; J3490; J7030; Q0163; Q9967

== ENCOUNTER → 2021-06-16 13:19 | Outpatient (BNVA) | payer MEDICAID, SELFPAY | PROVIDERS: PCP Family Medicine; Visit Provider Nurse Practitioner Family | DX: I25.10 Atherosclerotic heart disease of native coronary artery without angina pectoris (principal); Z09 Encounter for follow-up examination after completed treatment for conditions other than malignant neoplasm; E11.59 Type 2 diabetes mellitus with other circulatory complications; I15.2 Hypertension secondary to endocrine disorders | CPT/HCPCS: 36415; 80048; 99214 ==

== ENCOUNTER 2021-07-09 08:41 | Emergency (ER) | payer MEDICAID, SELFPAY ==
[2021-07-09] VITALS (7 sets, daily range): BP systolic 146–170; BP diastolic 66–80; PULSE 68–88; RESP 20–24; TEMP 36.8; O2SAT 94–96; BMI 41.5
--- NOTE | 2021-07-09 10:19 | XRR_ITS ---
PROCEDURE INFORMATION: Exam: XR Chest Exam date and time: 07/09/2021 10:33 AM Age: 71 years old Clinical indication: Dyspnea; Prior surgery; Surgery type: Stents TECHNIQUE: Imaging protocol: XR of the chest. Views: 1 view. COMPARISON: CR XR chest 1V portable [id number] 06/06/2021 12:03 PM FINDINGS: Lungs: Bibasilar airspace opacities. Pleural spaces: Small bilateral pleural effusions. No pneumothorax. Heart/Mediastinum: Mild cardiomegaly. Bones/joints: Unremarkable. XR/XR chest 1V portable [id number] IMPRESSION: Small bilateral pleural effusions with bibasilar airspace opacities, which may reflect atelectasis versus pneumonia.
--- NOTE | 2021-07-09 10:20 | ECG_ITS ---
[facility] Test Date: 2021-07-09 Pat Name: Lady López Department: Room: Gender: Female Counter Weigher: : 1950 Requested By: Raheem Sommers Order Number: [id number] Kelby MD: Bryan Posadas M.D. Measurements Intervals [place] Rate: 69 P: 26 [place]: 177 QRS: -7 QRSD: 100 T: 26 QT: 436 QTc: 467 Interpretive Statements SINUS RHYTHM ANTEROSEPTAL MYOCARDIAL INFARCTION , OF INDETERMINATE AGE [40+ ms Q WAVE IN V1-V4] Compared to ECG 06/06/2021 16:25:37 Left-axis deviation no longer present Myocardial infarct finding still present Electronically Signed On 07-10-2021 19:30:42 CDT by Bryan Posadas M.D. [email or web address] [id number]
[2021-07-09 10:33] LABS: Basophils % 0.5 %; Eosinophils # 0.2 10^3/uL (0.0-0.8); Eosinophils % 2.3 %; Hematocrit 34.4 % (37.0-47.0); Hemoglobin 11.5 g/dL (11.5-15.3); Lymphocytes # 1.5 10^3/uL (0.8-4.8); Lymphocytes % 18.6 %; Mean Corpuscular HGB Conc 33.4 g/dL (30.0-36.0); Mean Corpuscular Hemoglobin 29.1 pg (28.0-34.0); Mean Corpuscular Volume 87.1 fl (81-99); Mean Platelet Volume 9.6 fL (7.4-10.4); Monocytes # 0.5 10^3/uL (0.2-0.9); Monocytes % 6.1 %; Neutrophils # 5.96 10^3/uL (1.8-7.7); Neutrophils % 72.3 %; Nucleated Red Blood Cells % 0 %; Platelet Count 378 10^3/cmm (130-400); Red Blood Count 3.95 10^6/uL (4.1-5.3); White Blood Count 8.2 10^3/uL (4.0-10.0)
--- NOTE | 2021-07-09 10:42 | W.ED.SOB ---
HPI - SOB/Dyspnea General: Chief Complaint: Shortness of Breath/Dyspnea Stated Complaint: DIFFICULTY BREATHING Time Seen by Provider: 07/09/21 08:42 Source: patient Mode of arrival: ambulatory Limitations: no limitations History of Present Illness: HPI Narrative: 71-year-old female present planing of shortness of breath. She has a history of coronary artery disease recently had 2 stents placed. She was relatively asymptomatic per her report prior to that. She is diabetic she is a former smoker. She is chronically on oxygen evidently since this past February 2020 she had an episode of pneumonia and required oxygen since then at 2 L/min. She states at home she was very short of breath but since arriving here she feels fine when initially came in the room she was on 3 L/min we decreased it to 2 L/min while I was doing her history and she maintained her oxygen sats in the mid 90s the entire time. She denies any chest pain no fever sweats chills or productive cough. MD elicited complaint: shortness of breath Pertinent past history: congestive heart failure Onset (ago): hour(s) Timing: constant Exacerbating factors: lying flat and coughing Relieving factors: nothing Known history of: congestive heart failure and diabetes Associated symptoms: Reports chest congestion, cough and orthopnea; Deny abdominal pain, chest pain, diaphoresis, dizziness, extremity pain, fever(s), hemoptysis, lightheadedness, myalgias, nausea, palpitations, paresthesias, polydipsia, polyuria, rash, sense of impending doom, syncope or vomiting Treatment prior to arrival: oxygen Review of Systems Const: Denies: fever(s), chills or diaphoresis ENMT: Denies: throat pain, ear or mastoid pain, nasal discharge or nasal congestion Card: Reports: orthopnea; Denies: chest pain, palpitations, lightheadedness or syncope Resp: Reports: dyspnea and chest congestion; Denies: non-productive cough or hemoptysis GI: Denies: abdominal pain, nausea or vomiting : Denies: flank pain, difficulty voiding, dysuria, urinary frequency or urinary urgency Musc: Denies: extremity pain Skin/Breast: Denies: rash or pruritus Neuro: Denies: dizziness Endo: Denies: polyuria or polydipsia PFS ED PFSH: Medical History Arthritis Asthma Atherosclerosis of coronary artery Bilateral conjunctivitis Diarrhea DKA (diabetic ketoacidosis) DM type 2 (diabetes mellitus, type 2) Gastroenteritis HTN (hypertension) Hyperlipidemia Hypertension associated with diabetes Hypertensive urgency Hypokalemia Left otitis media with spontaneous rupture of eardrum Nausea & vomiting Otitis externa Pulmonary embolism Small bowel mass Surgical History Hx of cholecystectomy Family History Other Cancer Stroke Social History Smoking and tobacco status: never smoked Alcohol intake: never Lives independently: Yes Household members: none Marital status: / Physical Exam Const: GENERAL APPEARANCE: cooperative and comfortable ORIENTATION/CONSCIOUSNESS: Yes awake, Yes oriented to person, Yes oriented to place and Yes oriented to time HENMT: COMMON NORMALS: normocephalic, atraumatic and hearing grossly normal bilaterally HEAD & SCALP: normocephalic and atraumatic Resp: COMMON NORMALS: normal respiratory effort, No retractions, No use of accessory muscles and clear to auscultation bilaterally AUSCULTATION: clear to auscultation bilaterally Cardio: COMMON NORMALS: regular rate, regular rhythm and No murmurs present (Cardio) RATE: regular rate RHYTHM: regular rhythm GI: COMMON NORMALS: Soft to palpation and No hepatosplenomegaly present AUSCULTATION: Yes normoactive bowel sounds PALPATION: Yes Soft to palpation, No Tenderness to palpation present (GI), No Guarding due to palpation present (GI) and Yes No hepatosplenomegaly present Extremity: COMMON NORMALS: normal to inspection, capillary refill normal and no calf tenderness GENERAL: Yes edema (Lower extremities) Neuro: SENSORIUM/ORIENTATION: Yes oriented to person, Yes oriented to place and Yes oriented to time Skin: COMMON NORMALS: no rashes or lesions noted GENERAL SKIN EXAM: no rashes or lesions noted Course Vital Signs: Vital signs: Vital Signs Temperature 98.2 F 07/09/21 08:49 Pulse Rate 75 07/09/21 12:55 Respiratory Rate 24 H 07/09/21 12:55 Blood Pressure 170/79 07/09/21 12:55 Pulse Oximetry 96 07/09/21 12:55 MDM - SOB/Dyspnea Medical Decision Making No chest discomfort exam unremarkable symptoms improved. Small bilateral effusions on the chest x-ray which were present previously with question of atelectasis versus pneumonia clinically she does not appear to have pneumonia. Discussed with cardiology at this point there is not really any intervention that would likely to be pursued given her recent angiography with stenting there is no other areas of concern to be addressed. Cardiology agrees with starting on Imdur avoid exertional activity follow-up with cardiology next week return if is worsening problems. Medical Records I reviewed the patient's medical records. Lab Data I reviewed the patient's lab results. : 07/09/21 08:53 07/09/21 08:53 Labs/Radiology: Radiology Impressions Chest X-Ray 07/09/21 10:19 IMPRESSION: Small bilateral pleural effusions with bibasilar airspace opacities, which may reflect atelectasis versus pneumonia. Laboratory Results WBC 8.2 10^3/uL (4.0-10.0) 07/09/21 08:53 RBC 3.95 10^6/uL (4.1-5.3) L 07/09/21 08:53 Hgb 11.5 g/dL (11.5-15.3) 07/09/21 08:53 Hct 34.4 % (37.0-47.0) L 07/09/21 08:53 MCV 87.1 fl (81-99) 07/09/21 08:53 MCH 29.1 pg (28.0-34.0) 07/09/21 08:53 MCHC 33.4 g/dL (30.0-36.0) 07/09/21 08:53 RDW 13.0 % (12.1-15.1) 07/09/21 08:53 Plt Count 378 10^3/cmm (130-400) 07/09/21 08:53 MPV 9.6 fL (7.4-10.4) 07/09/21 08:53 Neut % (Auto) 72.3 % 07/09/21 08:53 Lymph % (Auto) 18.6 % 07/09/21 08:53 [place] % (Auto) 6.1 % 07/09/21 08:53 Eos % (Auto) 2.3 % 07/09/21 08:53 Baso % (Auto) 0.5 % 07/09/21 08:53 Neut # (Auto) 5.96 10^3/uL (1.8-7.7) 07/09/21 08:53 Lymph # (Auto) 1.5 10^3/uL (0.8-4.8) 07/09/21 08:53 [place] # (Auto) 0.5 10^3/uL (0.2-0.9) 07/09/21 08:53 Eos # (Auto) 0.2 10^3/uL (0.0-0.8) 07/09/21 08:53 Baso # (Auto) 0.0 10^3/uL (0.0-0.1) 07/09/21 08:53 Nucleated RBC % (auto) 0 % 07/09/21 08:53 Nucleated RBCs # 0.0 /100WBC 07/09/21 08:53 Sodium 140 mmol/L (136-145) 07/09/21 08:53 Potassium 3.4 mmol/L (3.5-5.1) L 07/09/21 08:53 Chloride 102 mmol/L (98-107) 07/09/21 08:53 Carbon Dioxide 25 mmol/L (22-29) 07/09/21 08:53 Anion Gap 16.4 (5-19) 07/09/21 08:53 BUN 8 mg/dL (8-23) 07/09/21 08:53 Creatinine 0.7 mg/dL (0.5-0.9) 07/09/21 08:53 GFR Calculation 82.7 mL/min (90-130) L 07/09/21 08:53 Glucose 114 mg/dL (65-115) 07/09/21 08:53 Calculated Osmolality 289 mOsm/kg (285-295) 07/09/21 08:53 Calcium 8.4 mg/dL (8.5-10.5) L 07/09/21 08:53 Total Bilirubin 0.3 mg/dL (0.15-1.2) 07/09/21 08:53 AST 9 U/L (0-32) 07/09/21 08:53 ALT < 5 U/L (0-33) 07/09/21 08:53 Alkaline Phosphatase 44 IU/L (35-105) 07/09/21 08:53 Creatine Kinase 29 U/L (26-192) 07/09/21 08:53 Troponin T Baseline 14 ng/L (0-10) H 07/09/21 08:53 Troponin T 120 Minute 12.85 ng/L (0-10) H 07/09/21 10:40 Delta Troponin T -1.15 ABS# (0-10) L 07/09/21 10:40 Total Protein 6.8 g/dL (6.6-8.7) 07/09/21 08:53 Albumin 4.0 g/dL (3.5-5.2) 07/09/21 08:53 Globulin 2.8 g/dL (1.3-4.6) 07/09/21 08:53 Discharge Plan Discharge Patient Disposition: Home Clinical Impression: Atherosclerosis of coronary artery, Hypertension associated with diabetes, ESCOBAR (dyspnea on exertion) Condition: Stable Prescriptions: New isosorbide mononitrate 30 mg tablet extended release 24 hr 30 mg PO DAILY Qty: 30 0RF No Action carvedilol 12.5 mg tablet 25 mg PO BID Qty: 60 4RF Lantus U-100 Insulin 100 unit/mL solution 40 unit SUBCUT BEDTIME 0RF amlodipine 10 mg tablet 10 mg PO QAM 0RF metformin 1,000 mg tablet 1,000 mg PO BID 0RF Hold Instructions: Resume on 06/11/21. Hold on 06/09 and 06/10. losartan 100 mg tablet 100 mg PO QAM 0RF fenofibrate nanocrystallized 145 mg tablet 145 mg PO BEDTIME 0RF Jardiance 10 mg tablet 10 mg PO QAM 0RF ondansetron HCl [Zofran] 4 mg tablet 4 mg PO Q6H PRN (Reason: nausea and vomiting) Qty: 14 0RF Eliquis 5 mg Tablet 5 mg PO BID 0RF clopidogrel 75 mg Tablet 75 mg PO DAILY Qty: 90 4RF atorvastatin 40 mg Tablet 80 mg PO BEDTIME Qty: 60 4RF lisinopril 10 mg Tablet 10 mg PO DAILY Qty: 60 3RF nitroglycerin 0.4 mg Tablet, Sublingual 0.4 mg sublingual Q5M PRN (Reason: Chest Pain) Qty: 25 6RF Lasix 40 mg tablet 40 mg PO DAILY Qty: 5 0RF potassium chloride 20 mEq tablet extended release 20 meq PO DAILY Qty: 10 0RF Discharge Orders: Discharge ED (Routine); Ordered 07/09/21 Ordered By: Raheem Sorensen Referrals: Matthew Geller DO [Primary Care Provider] - Discharge Diet: Usual diet Discharge Activity: Limit activity as instructed Patient Instructions: Opioid Safety Activity Restrictions/Additional Instructions: With exertional activity. Follow-up with cardiology this coming week return if you have further problems. Add the Imdur continue all of your other medications. Coding Level of Care Code ED Portable Sawmill Operator for Sasha Cox
[2021-07-09 11:07] LABS: Alanine Aminotransferase < 5 U/L (0-33); Alkaline Phosphatase 44 IU/L (35-105); Anion Gap 16.4 (5-19); Aspartate Amino Transferase 9 U/L (0-32); Blood Urea Nitrogen 8 mg/dL (8-23); Calcium 8.4 mg/dL (8.5-10.5); Carbon Dioxide 25 mmol/L (22-29); Chloride 102 mmol/L (98-107); Creatine Phosphokinase 29 U/L (26-192); Globulin 2.8 g/dL (1.3-4.6); Glomerular Filtration Rate 82.7 mL/min (90-130); Glucose 114 mg/dL (65-115); Osmolality Calculated 289 mOsm/kg (285-295); Potassium 3.4 mmol/L (3.5-5.1); Sodium 140 mmol/L (136-145); Total Bilirubin 0.3 mg/dL (0.15-1.2); Total Protein 6.8 g/dL (6.6-8.7)
[2021-07-09 11:08] LABS: Troponin(5th) Baseline 14 ng/L (0-10)
[2021-07-09 11:08] LABS: Troponin 5 2HR 12.85 ng/L (0-10)
[2021-07-09 11:10] LABS: Troponin 5 2HR Delta -1.15 ABS# (0-10)
== END 2021-07-09 13:00 | disposition home or self-care (01) ==
PROVIDERS: Emergency Provider Family Medicine; PCP Family Medicine
DX: I25.10 Atherosclerotic heart disease of native coronary artery without angina pectoris (principal); I10 Essential (primary) hypertension; E11.9 Type 2 diabetes mellitus without complications; J90 Pleural effusion, not elsewhere classified; E78.5 Hyperlipidemia, unspecified; R06.00 Dyspnea, unspecified
CPT/HCPCS: 36415; 71045; 80053; 82550; 84484; 85025; 93005; 99283

== ENCOUNTER 2021-07-10 16:35 | Emergency (ER) | payer MEDICAID, SELFPAY ==
[2021-07-10 16:35] VITALS: BP 191/63; PULSE 85; RESP 24; O2SAT 96
--- NOTE | 2021-07-10 16:51 | XRR_ITS ---
PROCEDURE INFORMATION: Exam: XR Chest Exam date and time: 07/10/2021 5:23 PM Age: 71 years old Clinical indication: Dyspnea TECHNIQUE: Imaging protocol: XR of the chest. Views: 1 view. COMPARISON: CR (CHEST, ) 07/09/2021 10:33 AM FINDINGS: Lungs: Stable compressive atelectasis in the bilateral mid and lower lungs. Underlying pneumonia is not ruled out. Pleural spaces: Stable moderate bilateral pleural effusions. No pneumothorax. Heart/Mediastinum: Stable moderate enlargement of the cardiac silhouette. Mediastinal contours are unremarkable. Vasculature: Stable vascular calcifications in the aorta. Bones/joints: Unremarkable for age. XR/XR chest 1V portable [id number] IMPRESSION: 1. Stable moderate bilateral pleural effusions with compressive compressive atelectasis in the bilateral mid and lower lungs. Underlying pneumonia is not ruled out. Recommend followup chest imaging to insure resolution of these findings. 2. Incidental/nonacute findings are listed in the report.
--- NOTE | 2021-07-10 16:51 | ECG_ITS ---
[facility] Test Date: 2021-07-10 Pat Name: Lady López Department: Room: Gender: Female Reel Fed Printer: : 1950 Requested By: Kiran Allen Order Number: [id number] Kelby MD: Bryan Posadas M.D. Measurements Intervals [place] Rate: 72 P: 34 MS: 163 QRS: -3 QRSD: 105 T: 34 QT: 418 QTc: 459 Interpretive Statements SINUS RHYTHM LOW QRS VOLTAGE IN PRECORDIAL LEADS [QRS DEFLECTION < 1.0 mV IN CHEST LEADS] POSSIBLE ANTERIOR MYOCARDIAL INFARCTION , PROBABLY OLD [30 ms Q WAVE IN V3/V4, OR R < 0.2 mV IN V4] Compared to ECG 07/09/2021 11:03:58 Low QRS voltage now present Myocardial infarct finding still present Electronically Signed On 07-10-2021 19:25:29 CDT by Bryan Posadas M.D. [id number]
--- NOTE | 2021-07-10 17:03 | ED_ITS ---
Documented by User: Kiran Allen DO 07/10/21 17:09 HPI - SOB/Dyspnea General: Chief Complaint: Shortness of Breath/Dyspnea Stated Complaint: CHEST PAIN; SOB Time Seen by Provider: 07/10/21 16:40 History of Present Illness: HPI Narrative: 8-year-old female brought in by EMS. Patient is brought and with concerns of shortness of breath, chest pain. Patient has a history of dyspnea and was seen yesterday for similar complaints. Patient was also recently seen by her clinical orthoptist. Following yesterday's evaluation patient was discharged on Imdur but has not picked it up yet. Patient comes in today mainly because she just feels she cannot breathe. Patient is normally on 2 L oxygen. When EMS arrived they report it was around 80% so they bumped her to 4 L which moved her oxygen levels up into the mid 90s. Patient very vague complaint of chest pain. No reports of increased cough, fever or chills. Patient is very anxious upon arrival. Associated symptoms: Reports chest pain; Deny abdominal pain, chest congestion, fever(s), lightheadedness, nausea, palpitations or vomiting Review of Systems Const: Denies: fever(s) or chills Card: Reports: chest pain and dyspnea on exertion; Denies: palpitations or lightheadedness Resp: Reports: dyspnea; Denies: productive cough or chest congestion GI: Denies: abdominal pain, nausea or vomiting Neuro: Denies: headache(s) or numbness in extremities PFSH ED PFSH: Medical History Arthritis Asthma Atherosclerosis of coronary artery Bilateral conjunctivitis Diarrhea DKA (diabetic ketoacidosis) DM type 2 (diabetes mellitus, type 2) Gastroenteritis HTN (hypertension) Hyperlipidemia Hypertension associated with diabetes Hypertensive urgency Hypokalemia Left otitis media with spontaneous rupture of eardrum Nausea & vomiting Otitis externa Pulmonary embolism Small bowel mass Surgical History Hx of cholecystectomy Family History Other Cancer Stroke Social History Smoking and tobacco status: never smoked Alcohol intake: never Lives independently: Yes Household members: none Marital status: / Physical Exam Const: COMMON NORMALS: patient oriented x3 GENERAL APPEARANCE: anxious HENMT: COMMON NORMALS: normocephalic and hearing grossly normal bilaterally HEAD & SCALP: normocephalic Resp: EFFORT & INSPECTION: No able to speak in complete sentences, Yes tachypneic and No Actively coughing Cardio: COMMON NORMALS: regular rate and regular rhythm RATE: regular rate RHYTHM: regular rhythm GI: COMMON NORMALS: Normal to inspection, nondistended, normoactive bowel sounds present, Soft to palpation and non-tender PALPATION: Yes Soft to palpation Extremity: COMMON NORMALS: full ROM Neuro: COMMON NORMALS: patient oriented x3 and no focal motor deficits Psych: APPEARANCE: Yes grossly normal MOOD & AFFECT: Yes anxious Skin: COMMON NORMALS: no rashes or lesions noted GENERAL SKIN EXAM: no ra shes or lesions noted Course Vital Signs: Vital signs: Vital Signs Pulse Rate 85 07/10/21 16:35 Respiratory Rate 24 H 07/10/21 16:35 Blood Pressure 191/63 07/10/21 16:35 Pulse Oximetry 96 07/10/21 16:35 MDM - SOB/Dyspnea Lab Data : 07/10/21 17:15 07/10/21 17:15 Labs/Radiology: Radiology Impressions Chest X-Ray 07/10/21 16:51 IMPRESSION: 1. Stable moderate bilateral pleural effusions with compressive compressive atelectasis in the bilateral mid and lower lungs. Underlying pneumonia is not ruled out. Recommend followup chest imaging to insure resolution of these findings. 2. Incidental/nonacute findings are listed in the report. Laboratory Results WBC 8.1 10^3/uL (4.0-10.0) 07/10/21 17:15 RBC 4.06 10^6/uL (4.1-5.3) L 07/10/21 17:15 Hgb 11.7 g/dL (11.5-15.3) 07/10/21 17:15 Hct 35.8 % (37.0-47.0) L 07/10/21 17:15 MCV 88.2 fl (81-99) 07/10/21 17:15 MCH 28.8 pg (28.0-34.0) 07/10/21 17:15 MCHC 32.7 g/dL (30.0-36.0) 07/10/21 17:15 RDW 13.1 % (12.1-15.1) 07/10/21 17:15 Plt Count 361 10^3/cmm (130-400) 07/10/21 17:15 MPV 9.1 fL (7.4-10.4) 07/10/21 17:15 Neut % (Auto) 72.7 % 07/10/21 17:15 Lymph % (Auto) 19.3 % 07/10/21 17:15 [place] % (Auto) 6.1 % 07/10/21 17:15 Eos % (Auto) 1.1 % 07/10/21 17:15 Baso % (Auto) 0.4 % 07/10/21 17:15 Neut # (Auto) 5.87 10^3/uL (1.8-7.7) 07/10/21 17:15 Lymph # (Auto) 1.6 10^3/uL (0.8-4.8) 07/10/21 17:15 [place] # (Auto) 0.5 10^3/uL (0.2-0.9) 07/10/21 17:15 Eos # (Auto) 0.1 10^3/uL (0.0-0.8) 07/10/21 17:15 Baso # (Auto) 0.0 10^3/uL (0.0-0.1) 07/10/21 17:15 Nucleated RBC % (auto) 0 % 07/10/21 17:15 Nucleated RBCs # 0.0 /100WBC 07/10/21 17:15 Sodium 137 mmol/L (136-145) 07/10/21 17:15 Potassium 3.5 mmol/L (3.5-5.1) 07/10/21 17:15 Chloride 101 mmol/L (98-107) 07/10/21 17:15 Carbon Dioxide 23 mmol/L (22-29) 07/10/21 17:15 Anion Gap 16.5 (5-19) 07/10/21 17:15 BUN 11 mg/dL (8-23) 07/10/21 17:15 Creatinine 0.7 mg/dL (0.5-0.9) 07/10/21 17:15 GFR Calculation 82.7 mL/min (90-130) L 07/10/21 17:15 Glucose 236 mg/dL (65-115) H 07/10/21 17:15 Calculated Osmolality 291 mOsm/kg (285-295) 07/10/21 17:15 Calcium 8.0 mg/dL (8.5-10.5) L 07/10/21 17:15 Total Bilirubin 0.3 mg/dL (0.15-1.2) 07/10/21 17:15 AST 8 U/L (0-32) 07/10/21 17:15 ALT < 5 U/L (0-33) 07/10/21 17:15 Alkaline Phosphatase 41 IU/L (35-105) 07/10/21 17:15 Troponin T Baseline 11 ng/L (0-10) H 07/10/21 17:15 Troponin T 120 Minute 11.90 ng/L (0-10) H 07/10/21 19:19 Delta Troponin T 0.90 ABS# (0-10) 07/10/21 19:19 NT-Pro-B Natriuret Pep 2239 pg/mL (0-125) H 07/10/21 17:15 Total Protein 6.6 g/dL (6.6-8.7) 07/10/21 17:15 Albumin 3.8 g/dL (3.5-5.2) 07/10/21 17:15 Globulin 2.8 g/dL (1.3-4.6) 07/10/21 17:15 Discharge Plan Discharge Patient Disposition: Home Clinical Impression: Pulmonary edema Qualifiers: Chronicity: acute Qualified Code(s): J81.0 - Acute pulmonary edema Condition: Stable Prescriptions: New Lasix 40 mg tablet 40 mg PO DAILY Qty: 5 0RF potassium chloride 20 mEq tablet extended release 20 meq PO DAILY Qty: 10 0RF No Action carvedilol 12.5 mg tablet 25 mg PO BID Qty: 60 4RF Lantus U-100 Insulin 100 unit/mL solution 40 unit SUBCUT BEDTIME 0RF amlodipine 10 mg tablet 10 mg PO QAM 0RF metformin 1,000 mg tablet 1,000 mg PO BID 0RF Hold Instructions: Resume on 06/11/21. Hold on 06/09 and 06/10. losartan 100 mg tablet 100 mg PO QAM 0RF fenofibrate nanocrystallized 145 mg tablet 145 mg PO BEDTIME 0RF Jardiance 10 mg tablet 10 mg PO QAM 0RF ondansetron HCl [Zofran] 4 mg tablet 4 mg PO Q6H PRN (Reason: nausea and vomiting) Qty: 14 0RF Eliquis 5 mg Tablet 5 mg PO BID 0RF clopidogrel 75 mg Tablet 75 mg PO DAILY Qty: 90 4RF atorvastatin 40 mg Tablet 80 mg PO BEDTIME Qty: 60 4RF lisinopril 10 mg Tablet 10 mg PO DAILY Qty: 60 3RF nitroglycerin 0.4 mg Tablet, Sublingual 0.4 mg sublingual Q5M PRN (Reason: Chest Pain) Qty: 25 6RF isosorbide mononitrate 30 mg tablet extended release 24 hr 30 mg PO DAILY Qty: 30 0RF Discharge Orders: Discharge ED (Routine); Ordered 07/10/21 Ordered By: Jeronimo Sherman Referrals: Matthew Geller DO [Primary Care Provider] - 4-7 days Patient Instructions: Pulmonary Edema (ED) Activity Restrictions/Additional Instructions: Be sure to fill the isosorbide prescription you were given yesterday. Also filled the diuretic prescription you were given tonight. Take it with potassium for the next 4 days, then stop. See your doctor by Sunday for recheck. Return for worsening chest discomfort or shortness of breath despite treatment. Coding Level of Care Code ED Stagecraft Professor for Chg Fwd Exam Comprehensive Documented by User: Jeronimo Sherman DO 07/10/21 21:16 HPI - SOB/Dyspnea General: Chief Complaint: Shortness of Breath/Dyspnea Stated Complaint: CHEST PAIN; SOB Time Seen by Provider: 07/10/21 16:40 History of Present Illness: HPI Narrative: 71-year-old female brought in by EMS. Patient is brought and with concerns of shortness of breath, chest pain. Patient has a history of dyspnea and was seen yesterday for similar complaints. Patient was also recently seen by her clinical orthoptist. Following yesterday's evaluation patient was discharged on Imdur but has not picked it up yet. Patient comes in today mainly because she just feels she cannot breathe. Patient is normally on 2 L oxygen. When EMS arrived they report it was around 80% so they bumped her to 4 L which moved her oxygen levels up into the mid 90s. Patient very vague complaint of chest pain. No reports of increased cough, fever or chills. Patient is very anxious upon arrival. [facility] ED PFSH: Medical History Arthritis Asthma Atherosclerosis of coronary artery Bilateral conjunctivitis Diarrhea DKA (diabetic ketoacidosis) DM type 2 (diabetes mellitus, type 2) Gastroenteritis HTN (hypertension) Hyperlipidemia Hypertension associated with diabetes Hypertensive urgency Hypokalemia Left otitis media with spontaneous rupture of eardrum Nausea & vomiting Otitis externa Pulmonary embolism Small bowel mass Surgical History Hx of cholecystectomy Family History Other Cancer Stroke Social History Smoking and tobacco status: never smoked Alcohol intake: never Lives independently: Yes Household members: none Marital status: / Course Vital Signs: Vital signs: Vital Signs Pulse Rate 85 07/10/21 16:35 Respiratory Rate 24 H 07/10/21 16:35 Blood Pressure 191/63 07/10/21 16:35 Pulse Oximetry 96 07/10/21 16:35 MDM - SOB/Dyspnea Medical Decision Making 71-year-old female with a history of coronary disease. She was checked out to me by Dr. Allen at shift change. This lady complains of worsening shortness of breath with some mild chest discomfort. She was hypertensive on arrival, and given nitroglycerin with resolution of her hypertension. It has since returned to some degree. She has Nitropaste on her chest. She was seen yesterday, and prescribed isosorbide, which she has not filled. Oxygen saturations are 95 to 97% on her home 2 L. Chest x-ray reveals stable small to moderate pleural effusions from yesterday. Her BNP is elevated, and her troponin did not change at 2 hours. Her creatinine is 0.7. Her hemoglobin is 11.7. She does not have a leukocytosis. She has been given 60 mg of Lasix IV here, and is starting to diurese. She is not on diuretics currently. We will put her on diuretics for the next 3 days along with some potassium, and have her follow-up. Lab Data : 07/10/21 17:15 07/10/21 17:15 Labs/Radiology: Radiology Impressions Chest X-Ray 07/10/21 16:51 IMPRESSION: 1. Stable moderate bilateral pleural effusions with compressive compressive atelectasis in the bilateral mid and lower lungs. Underlying pneumonia is not ruled out. Recommend followup chest imaging to insure resolution of these findings. 2. Incidental/nonacute findings are listed in the report. Laboratory Results WBC 8.1 10^3/uL (4.0-10.0) 07/10/21 17:15 RBC 4.06 10^6/uL (4.1-5.3) L 07/10/21 17:15 Hgb 11.7 g/dL (11.5-15.3) 07/10/21 17:15 Hct 35.8 % (37.0-47.0) L 07/10/21 17:15 MCV 88.2 fl (81-99) 07/10/21 17:15 MCH 28.8 pg (28.0-34.0) 07/10/21 17:15 MCHC 32.7 g/dL (30.0-36.0) 07/10/21 17:15 RDW 13.1 % (12.1-15.1) 07/10/21 17:15 Plt Count 361 10^3/cmm (130-400) 07/10/21 17:15 MPV 9.1 fL (7.4-10.4) 07/10/21 17:15 Neut % (Auto) 72.7 % 07/10/21 17:15 Lymph % (Auto) 19.3 % 07/10/21 17:15 [place] % (Auto) 6.1 % 07/10/21 17:15 Eos % (Auto) 1.1 % 07/10/21 17:15 Baso % (Auto) 0.4 % 07/10/21 17:15 Neut # (Auto) 5.87 10^3/uL (1.8-7.7) 07/10/21 17:15 Lymph # (Auto) 1.6 10^3/uL (0.8-4.8) 07/10/21 17:15 [place] # (Auto) 0.5 10^3/uL (0.2-0.9) 07/10/21 17:15 Eos # (Auto) 0.1 10^3/uL (0.0-0.8) 07/10/21 17:15 Baso # (Auto) 0.0 10^3/uL (0.0-0.1) 07/10/21 17:15 Nucleated RBC % (auto) 0 % 07/10/21 17:15 Nucleated RBCs # 0.0 /100WBC 07/10/21 17:15 Sodium 137 mmol/L (136-145) 07/10/21 17:15 Potassium 3.5 mmol/L (3.5-5.1) 07/10/21 17:15 Chloride 101 mmol/L (98-107) 07/10/21 17:15 Carbon Dioxide 23 mmol/L (22-29) 07/10/21 17:15 Anion Gap 16.5 (5-19) 07/10/21 17:15 BUN 11 mg/dL (8-23) 07/10/21 17:15 Creatinine 0.7 mg/dL (0.5-0.9) 07/10/21 17:15 GFR Calculation 82.7 mL/min (90-130) L 07/10/21 17:15 Glucose 236 mg/dL (65-115) H 07/10/21 17:15 Calculated Osmolality 291 mOsm/kg (285-295) 07/10/21 17:15 Calcium 8.0 mg/dL (8.5-10.5) L 07/10/21 17:15 Total Bilirubin 0.3 mg/dL (0.15-1.2) 07/10/21 17:15 AST 8 U/L (0-32) 07/10/21 17:15 ALT < 5 U/L (0-33) 07/10/21 17:15 Alkaline Phosphatase 41 IU/L (35-105) 07/10/21 17:15 Troponin T Baseline 11 ng/L (0-10) H 07/10/21 17:15 Troponin T 120 Minute 11.90 ng/L (0-10) H 07/10/21 19:19 Delta Troponin T 0.90 ABS# (0-10) 07/10/21 19:19 NT-Pro-B Natriuret Pep 2239 pg/mL (0-125) H 07/10/21 17:15 Total Protein 6.6 g/dL (6.6-8.7) 07/10/21 17:15 Albumin 3.8 g/dL (3.5-5.2) 07/10/21 17:15 Globulin 2.8 g/dL (1.3-4.6) 07/10/21 17:15 Discharge Plan Discharge Patient Disposition: Home Clinical Impression: Pulmonary edema Qualifiers: Chronicity: acute Qualified Code(s): J81.0 - Acute pulmonary edema Condition: Stable Prescriptions: New Lasix 40 mg tablet 40 mg PO DAILY Qty: 5 0RF potassium chloride 20 mEq tablet extended release 20 meq PO DAILY Qty: 10 0RF No Action carvedilol 12.5 mg tablet 25 mg PO BID Qty: 60 4RF Lantus U-100 Insulin 100 unit/mL solution 40 unit SUBCUT BEDTIME 0RF amlodipine 10 mg tablet 10 mg PO QAM 0RF metformin 1,000 mg tablet 1,000 mg PO BID 0RF Hold Instructions: Resume on 06/11/21. Hold on 06/09 and 06/10. losartan 100 mg tablet 100 mg PO QAM 0RF fenofibrate nanocrystallized 145 mg tablet 145 mg PO BEDTIME 0RF Jardiance 10 mg tablet 10 mg PO QAM 0RF ondansetron HCl [Zofran] 4 mg tablet 4 mg PO Q6H PRN (Reason: nausea and vomiting) Qty: 14 0RF Eliquis 5 mg Tablet 5 mg PO BID 0RF clopidogrel 75 mg Tablet 75 mg PO DAILY Qty: 90 4RF atorvastatin 40 mg Tablet 80 mg PO BEDTIME Qty: 60 4RF lisinopril 10 mg Tablet 10 mg PO DAILY Qty: 60 3RF nitroglycerin 0.4 mg Tablet, Sublingual 0.4 mg sublingual Q5M PRN (Reason: Chest Pain) Qty: 25 6RF isosorbide mononitrate 30 mg tablet extended release 24 hr 30 mg PO DAILY Qty: 30 0RF Discharge Orders: Discharge ED (Routine); Ordered 07/10/21 Ordered By: Jeronimo Sherman Referrals: Matthew Geller, DO [Primary Care Provider] - 4-7 days Patient Instructions: Pulmonary Edema (ED) Activity Restrictions/Additional Instructions: Be sure to fill the isosorbide prescription you were given yesterday. Also filled the diuretic prescription you were given tonight. Take it with potassium for the next 4 days, then stop. See your doctor by Sunday for recheck. Return for worsening chest discomfort or shortness of breath despite treatment. Coding Level of Care Code ED Stagecraft Professor for Chg Fwd Exam Comprehensive
[2021-07-10 17:31] LABS: Basophils % 0.4 %; Eosinophils # 0.1 10^3/uL (0.0-0.8); Eosinophils % 1.1 %; Hematocrit 35.8 % (37.0-47.0); Hemoglobin 11.7 g/dL (11.5-15.3); Lymphocytes # 1.6 10^3/uL (0.8-4.8); Lymphocytes % 19.3 %; Mean Corpuscular HGB Conc 32.7 g/dL (30.0-36.0); Mean Corpuscular Hemoglobin 28.8 pg (28.0-34.0); Mean Corpuscular Volume 88.2 fl (81-99); Mean Platelet Volume 9.1 fL (7.4-10.4); Monocytes # 0.5 10^3/uL (0.2-0.9); Monocytes % 6.1 %; Neutrophils # 5.87 10^3/uL (1.8-7.7); Neutrophils % 72.7 %; Nucleated Red Blood Cells % 0 %; Platelet Count 361 10^3/cmm (130-400); Red Blood Count 4.06 10^6/uL (4.1-5.3); Red Cell Distribution Width 13.1 % (12.1-15.1); White Blood Count 8.1 10^3/uL (4.0-10.0)
[2021-07-10 17:55] LABS: Troponin(5th) Baseline 11 ng/L (0-10)
[2021-07-10 18:07] LABS: Alanine Aminotransferase < 5 U/L (0-33); Albumin Level 3.8 g/dL (3.5-5.2); Alkaline Phosphatase 41 IU/L (35-105); Anion Gap 16.5 (5-19); Aspartate Amino Transferase 8 U/L (0-32); Blood Urea Nitrogen 11 mg/dL (8-23); Carbon Dioxide 23 mmol/L (22-29); Chloride 101 mmol/L (98-107); Globulin 2.8 g/dL (1.3-4.6); Glomerular Filtration Rate 82.7 mL/min (90-130); Glucose 236 mg/dL (65-115); NT Pro B Type Natriuretic Pept 2239 pg/mL (0-125); Osmolality Calculated 291 mOsm/kg (285-295); Potassium 3.5 mmol/L (3.5-5.1); Sodium 137 mmol/L (136-145); Total Bilirubin 0.3 mg/dL (0.15-1.2); Total Protein 6.6 g/dL (6.6-8.7)
--- NOTE | 2021-07-10 18:51 | ECG_ITS ---
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 Measurements Intervals [place] Rate: 67 P: 3 ME: 147 QRS: -1 QRSD: 94 T: 1 QT: 424 QTc: 448 Interpretive Statements SINUS RHYTHM LOW QRS VOLTAGE IN PRECORDIAL LEADS [QRS DEFLECTION < 1.0 mV IN CHEST LEADS] ANTEROSEPTAL MYOCARDIAL INFARCTION , PROBABLY OLD [40+ ms Q WAVE IN V1-V4] Compared to ECG 07/10/2021 17:48:17 No significant changes Electronically Signed On 07-10-2021 19:31:42 CDT by Bryan Posadas M.D. [id number]
[2021-07-10] MEDS: nitroglycerin 1 gm/inch oint Pkt 1.5 INCH TOPICAL (19:52)
[2021-07-10] MEDS: FUROsemide 10 mg/mL SDV 10mL 60 MG IVP (19:52)
[2021-07-10 21:16] VITALS: BP 191/91; PULSE 76; RESP 20; O2SAT 96
[2021-07-10] MEDS: hyDRALAzine 20 mg/mL INJ 1 mL 10 MG IVP (21:22)
[2021-07-10 21:30] VITALS: BP 178/86; PULSE 74; RESP 20; O2SAT 96
== END 2021-07-10 21:24 | disposition home or self-care (01) ==
PROVIDERS: Student in an Organized Health Care Education/Training Program; Emergency Provider Emergency Medicine; PCP Family Medicine
DX: J81.0 Acute pulmonary edema (principal); I10 Essential (primary) hypertension; E11.9 Type 2 diabetes mellitus without complications; Z86.711 Personal history of pulmonary embolism; Z79.01 Long term (current) use of anticoagulants; Z79.4 Long term (current) use of insulin; Z79.02 Long term (current) use of antithrombotics/antiplatelets
CPT/HCPCS: 36415; 71045; 80053; 83880; 84484; 85025; 93005; 96374; 96375; 99284; J0360; J1940

== ENCOUNTER → 2021-08-03 12:09 | Outpatient (BNVA) | payer MEDICAID, SELFPAY | PROVIDERS: PCP Family Medicine; Visit Provider Nurse Practitioner Family | DX: I11.0 Hypertensive heart disease with heart failure (principal); I50.9 Heart failure, unspecified; E78.5 Hyperlipidemia, unspecified | CPT/HCPCS: 36415; 80048; 83880; 99214 ==

== ENCOUNTER 2021-09-07 10:43 | Emergency (ER) | payer MEDICAID, SELFPAY ==
[2021-09-07 10:45] VITALS: TEMP 36.7; BMI 33.3
[2021-09-07 10:50] VITALS: BP 160/66; PULSE 66; RESP 24; O2SAT 95
--- NOTE | 2021-09-07 10:56 | XR_ITS ---
WS: [id number] Exam: XR chest 1V portable [id number] Date/Time of Exam: 09/07/2021 10:58 AM Reason For Exam: dyspnea/cough Comparison 07/10/2021. The lungs are clear and fully expanded. Normal cardiomediastinal silhouette. Signs of coronary artery stenting. No pleural effusions. Bony structures are intact. XR/XR chest 1V portable [id number] IMPRESSION: 1. No acute cardiopulmonary finding.
--- NOTE | 2021-09-07 10:57 | ECG_ITS ---
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 Measurements Intervals [place] Rate: 68 P: 37 VA: 169 QRS: -28 QRSD: 94 T: 66 QT: 422 QTc: 451 Interpretive Statements SINUS RHYTHM LOW QRS VOLTAGE IN PRECORDIAL LEADS [QRS DEFLECTION < 1.0 mV IN CHEST LEADS] ANTEROSEPTAL MYOCARDIAL INFARCTION , OF INDETERMINATE AGE [40+ ms Q WAVE IN V1-V4] Compared to ECG 07/10/2021 19:13:50 No significant changes Electronically Signed On 09-07-2021 22:27:09 CDT by María Elena Baker M.D. [id number]
--- NOTE | 2021-09-07 11:20 | ED_ITS ---
HPI - Weakness General: Chief complaint: Weakness Stated complaint: WEAKNESS Time Seen by Provider: 09/07/21 10:47 Source: patient Mode of arrival: EMS Limitations: no limitations History of Present Illness: 71-year-old female presents emergency room complaining weakness just generally not feeling well. She is alert and oriented she has some right rib discomfort worse when she presses or takes a deep breath. She also complaining of neck pain. She lives at home alone. She denies any fever sweats or chills she has had urinary frequency. MD Complaint: generalized weakness Onset (ago): hour(s) Duration: constant Location: generalized Severity: moderate Relieving factors: none Exacerbating factors: none Associated symptoms: Denies chest pain, chills, confusion, melena, decreased appetite, diaphoresis, dysuria, easy bruising, fever(s), headache(s), myalgias, nausea, rash, short of breath, syncope or vomiting Review of Systems Const: Denies: fever(s), chills or diaphoresis ENMT: Denies: throat pain, ear or mastoid pain, nasal discharge or nasal congestion Card: Denies: chest pain or syncope Resp: Denies: dyspnea, productive cough or non-productive cough GI: Denies: nausea, vomiting or melena : Denies: dysuria Skin/Breast: Denies: rash or pruritus Neuro: Denies: headache(s) or confusion Ervin/Lymph: Denies: easy bruising PFSH ED PFSH: Medical History Arthritis Asthma Atherosclerosis of coronary artery Bilateral conjunctivitis Diarrhea DKA (diabetic ketoacidosis) DM type 2 (diabetes mellitus, type 2) Gastroenteritis HTN (hypertension) Hyperlipidemia Hypertension associated with diabetes Hypertensive urgency Hypokalemia Left otitis media with spontaneous rupture of eardrum Nausea & vomiting Otitis externa Pulmonary embolism Small bowel mass Surgical History Hx of cholecystectomy Family History Other Cancer Stroke Social History Smoking and tobacco status: never smoked Alcohol intake: never Lives independently: Yes Household members: none Marital status: / Physical Exam Const: COMMON NORMALS: no acute distress GENERAL APPEARANCE: cooperative and comfortable ORIENTATION/CONSCIOUSNESS: Yes awake, Yes oriented to person, Yes oriented to place and Yes oriented to time HENMT: COMMON NORMALS: normocephalic, atraumatic and hearing grossly normal bilaterally HEAD & SCALP: normocephalic and atraumatic Resp: COMMON NORMALS: normal respiratory effort, No retractions, No use of accessory muscles and clear to auscultation bilaterally AUSCULTATION: clear to auscultation bilaterally Cardio: COMMON NORMALS: regular rate, regular rhythm and No murmurs present (Cardio) RATE: regular rate RHYTHM: regular rhythm GI: COMMON NORMALS: Soft to palpation and No hepatosplenomegaly present AUSCULTATION: Yes normoactive bowel sounds PALPATION: Yes Soft to palpation, No Tenderness to palpation present (GI), No Guarding due to palpation present (GI) and Yes No hepatosplenomegaly present : COMMON NORMALS: Yes no CVA tenderness BLADDER/KIDNEY EXAM: Yes no CVA tenderness Back/Pelvis: COMMON NORMALS: no CVA tenderness Extremity: COMMON NORMALS: normal to inspection, capillary refill normal, no clubbing, cyanosis or edema, no calf tenderness and no pedal edema Neuro: SENSORIUM/ORIENTATION: Yes oriented to person, Yes oriented to place and Yes oriented to time Skin: COMMON NORMALS: no rashes or lesions noted GENERAL SKIN EXAM: no rashes or lesions noted Course Vital Signs: Vital signs: Vital Signs Temperature 98.1 F 09/07/21 10:45 Pulse Rate 66 09/07/21 10:50 Respiratory Rate 24 H 09/07/21 10:50 Blood Pressure 160/66 09/07/21 10:50 Pulse Oximetry 95 09/07/21 10:50 MDM - Weakness Medical Decision Making Cystitis. White count normal no evidence pyelonephritis started on oral antibiotics discharged home recheck if not improving Medical Records I reviewed the patient's medical records. Lab Data I reviewed the patient's lab results. : 09/07/21 11:48 09/07/21 11:30 Radiology Impressions Chest X-Ray 09/07/21 10:56 IMPRESSION: 1. No acute cardiopulmonary finding. Laboratory Results WBC 8.3 10^3/uL (4.0-10.0) 09/07/21 11:48 Corrected WBC Cancelled 09/07/21 11:30 RBC 3.85 10^6/uL (4.1-5.3) L 09/07/21 11:48 Hgb 11.0 g/dL (11.5-15.3) L 09/07/21 11:48 Hct 31.8 % (37.0-47.0) L 09/07/21 11:48 MCV 82.6 fl (81-99) 09/07/21 11:48 MCH 28.6 pg (28.0-34.0) 09/07/21 11:48 MCHC 34.6 g/dL (30.0-36.0) 09/07/21 11:48 RDW 13.5 % (12.1-15.1) 09/07/21 11:48 Plt Count 298 10^3/cmm (130-400) 09/07/21 11:48 MPV 9.7 fL (7.4-10.4) 09/07/21 11:48 Gran % Cancelled 09/07/21 11:30 Neut % (Auto) 71.9 % 09/07/21 11:48 Lymph % (Auto) 18.7 % 09/07/21 11:48 [place] % (Auto) 5.8 % 09/07/21 11:48 Eos % (Auto) 2.5 % 09/07/21 11:48 Baso % (Auto) 0.7 % 09/07/21 11:48 Neut # (Auto) 5.94 10^3/uL (1.8-7.7) 09/07/21 11:48 Lymph # (Auto) 1.6 10^3/uL (0.8-4.8) 09/07/21 11:48 [place] # (Auto) 0.5 10^3/uL (0.2-0.9) 09/07/21 11:48 Eos # (Auto) 0.2 10^3/uL (0.0-0.8) 09/07/21 11:48 Baso # (Auto) 0.1 10^3/uL (0.0-0.1) 09/07/21 11:48 Absolute Gran (auto) Cancelled 09/07/21 11:30 Nucleated RBC % (auto) 0 % 09/07/21 11:48 Nucleated RBCs # 0.0 /100WBC 09/07/21 11:48 Sodium 131 mmol/L (136-145) L 09/07/21 11:30 Potassium 4.5 mmol/L (3.5-5.1) 09/07/21 11:30 Chloride 95 mmol/L (98-107) L 09/07/21 11:30 Carbon Dioxide 24 mmol/L (22-29) 09/07/21 11:30 Anion Gap 16.5 (5-19) 09/07/21 11:30 BUN 18 mg/dL (8-23) 09/07/21 11:30 Creatinine 0.7 mg/dL (0.5-0.9) 09/07/21 11:30 GFR Calculation 82.7 mL/min (90-130) L 09/07/21 11:30 Glucose 144 mg/dL (65-115) H 09/07/21 11:30 Calculated Osmolality 276 mOsm/kg (285-295) L 09/07/21 11:30 Calcium 9.3 mg/dL (8.5-10.5) 09/07/21 11:30 Total Bilirubin 0.3 mg/dL (0.15-1.2) 09/07/21 11:30 AST 19 U/L (0-32) 09/07/21 11:30 ALT 10 U/L (0-33) 09/07/21 11:30 Alkaline Phosphatase 42 IU/L (35-105) 09/07/21 11:30 Creatine Kinase 37 U/L (26-192) 09/07/21 11:30 Troponin T Baseline 12 ng/L (0-10) H 09/07/21 11:30 Troponin T 120 Minute 12.11 ng/L (0-10) H 09/07/21 13:27 Delta Troponin T 0.11 ABS# (0-10) 09/07/21 13:27 Total Protein 7.3 g/dL (6.6-8.7) 09/07/21 11:30 Albumin 4.0 g/dL (3.5-5.2) 09/07/21 11:30 Globulin 3.3 g/dL (1.3-4.6) 09/07/21 11:30 Urine Color Yellow (Yellow) 09/07/21 14:16 Urine Appearance Sl cloudy (CLEAR) A 09/07/21 14:16 Urine pH 6.5 (5-7) 09/07/21 14:16 Ur Specific [place] 1.005 (1.005-1.030) 09/07/21 14:16 Urine Protein Neg (Negative) 09/07/21 14:16 Urine Glucose (UA) Norm (Normal) 09/07/21 14:16 Urine Ketones Negative (Negative) 09/07/21 14:16 Urine Blood 2+ (Negative) H 09/07/21 14:16 Urine Nitrate Positive (Negative) H 09/07/21 14:16 Urine Bilirubin Neg (Negative) 09/07/21 14:16 Urine Urobilinogen Norm mg/dL (Negative) 09/07/21 14:16 Ur Leukocyte Esterase 2+ (Negative) H 09/07/21 14:16 Urine RBC 0-4 /hpf (0-2) H 09/07/21 14:16 Urine WBC 10-15 /hpf (0-5) H 09/07/21 14:16 Ur Squamous Epith Cells 0-4 /hpf (0-5) H 09/07/21 14:16 Amorphous Sediment Not Reportable 09/07/21 14:16 Urine Bacteria 3+ /hpf (NONE) H 09/07/21 14:16 Discharge Plan Discharge Patient Disposition: Home Clinical Impression: Cystitis Condition: Stable Prescriptions: New Macrobid 100 mg capsule 100 mg PO BID 7 Days Qty: 14 0RF Rx Instructions: must administer with a meal/food No Action carvedilol 12.5 mg tablet 25 mg PO BID Qty: 60 4RF Lasix 40 mg tablet 40 mg PO BID Qty: 60 3RF potassium chloride 20 mEq tablet extended release 20 meq PO DAILY Qty: 30 3RF Lantus U-100 Insulin 100 unit/mL solution 40 unit SUBCUT BEDTIME 0RF amlodipine 10 mg tablet 10 mg PO QAM 0RF metformin 1,000 mg tablet 1,000 mg PO BID 0RF Hold Instructions: Resume on 06/11/21. Hold on 06/09 and 06/10. losartan 100 mg tablet 100 mg PO QAM 0RF fenofibrate nanocrystallized 145 mg tablet 145 mg PO BEDTIME 0RF Jardiance 10 mg tablet 10 mg PO QAM 0RF ondansetron HCl [Zofran] 4 mg tablet 4 mg PO Q6H PRN (Reason: nausea and vomiting) Qty: 14 0RF Eliquis 5 mg Tablet 5 mg PO BID 0RF clopidogrel 75 mg Tablet 75 mg PO DAILY Qty: 90 4RF atorvastatin 40 mg Tablet 80 mg PO BEDTIME Qty: 60 4RF lisinopril 10 mg Tablet 10 mg PO DAILY Qty: 60 3RF nitroglycerin 0.4 mg Tablet, Sublingual 0.4 mg sublingual Q5M PRN (Reason: Chest Pain) Qty: 25 6RF isosorbide mononitrate 30 mg tablet extended release 24 hr 30 mg PO DAILY Qty: 30 0RF Discharge Orders: Discharge ED (Routine); Ordered 09/07/21 Ordered By: Raheem Sorensen Referrals: Matthew Geller DO [Primary Care Provider] - Discharge Diet: Usual diet Discharge Activity: Increase activity as tolerated Patient Instructions: Opioid Safety Coding Level of Care Code ED Assistant Attorney General for [place] Fwd Exam Detailed
[2021-09-07 11:54] LABS: Basophils # 0.1 10^3/uL (0.0-0.1); Basophils % 0.7 %; Eosinophils # 0.2 10^3/uL (0.0-0.8); Eosinophils % 2.5 %; Hematocrit 31.8 % (37.0-47.0); Lymphocytes # 1.6 10^3/uL (0.8-4.8); Lymphocytes % 18.7 %; Mean Corpuscular HGB Conc 34.6 g/dL (30.0-36.0); Mean Corpuscular Hemoglobin 28.6 pg (28.0-34.0); Mean Corpuscular Volume 82.6 fl (81-99); Mean Platelet Volume 9.7 fL (7.4-10.4); Monocytes # 0.5 10^3/uL (0.2-0.9); Monocytes % 5.8 %; Neutrophils # 5.94 10^3/uL (1.8-7.7); Neutrophils % 71.9 %; Nucleated Red Blood Cells % 0 %; Platelet Count 298 10^3/cmm (130-400); Red Blood Count 3.85 10^6/uL (4.1-5.3); Red Cell Distribution Width 13.5 % (12.1-15.1); White Blood Count 8.3 10^3/uL (4.0-10.0)
[2021-09-07 12:09] LABS: Troponin(5th) Baseline 12 ng/L (0-10)
[2021-09-07 12:10] LABS: Alkaline Phosphatase 42 IU/L (35-105); Blood Urea Nitrogen 18 mg/dL (8-23); Calcium 9.3 mg/dL (8.5-10.5); Carbon Dioxide 24 mmol/L (22-29); Chloride 95 mmol/L (98-107); Creatinine Clr Calc Pharmacy 72.8123; Globulin 3.3 g/dL (1.3-4.6); Glomerular Filtration Rate 82.7 mL/min (90-130); Glucose 144 mg/dL (65-115); Osmolality Calculated 276 mOsm/kg (285-295); Sodium 131 mmol/L (136-145); Total Bilirubin 0.3 mg/dL (0.15-1.2); Total Protein 7.3 g/dL (6.6-8.7)
[2021-09-07 12:18] LABS: Alanine Aminotransferase 10 U/L (0-33); Anion Gap 16.5 (5-19); Aspartate Amino Transferase 19 U/L (0-32); Creatine Phosphokinase 37 U/L (26-192); Potassium 4.5 mmol/L (3.5-5.1)
--- NOTE | 2021-09-07 13:18 | PC.NURSE ---
EKG done at 1315 and shown to ER doctor
--- NOTE | 2021-09-07 13:32 | ECG_ITS ---
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 Measurements Intervals [place] Rate: 70 P: 35 ND: 172 QRS: -23 QRSD: 97 T: 74 QT: 411 QTc: 444 Interpretive Statements SINUS RHYTHM LOW QRS VOLTAGE IN PRECORDIAL LEADS [QRS DEFLECTION < 1.0 mV IN CHEST LEADS] POSSIBLE ANTERIOR MYOCARDIAL INFARCTION , PROBABLY OLD [30 ms Q WAVE IN V3/V4, OR R < 0.2 mV IN V4] Compared to ECG 09/07/2021 11:15:52 No significant changes Electronically Signed On 09-07-2021 22:29:20 CDT by María Elena Baker M.D. [id number]
[2021-09-07 14:01] LABS: Troponin 5 2HR 12.11 ng/L (0-10)
[2021-09-07 14:10] LABS: Troponin 5 2HR Delta 0.11 ABS# (0-10)
[2021-09-07 14:31] LABS: Urine Color Yellow (Yellow)
[2021-09-07 14:32] LABS: Add Urine Culture? Yes; Add Urine Microscopic? YES; Bacteria Urine 3+ /hpf; Bilirubin Urine Neg (Negative); Blood Urine 2+ (Negative); Glucose Urine UA Norm (Normal); Ketones Urine Negative (Negative); Leukocyte Esterase Urine 2+ (Negative); Nitrate Urine Positive (Negative); Protein Urine Neg (Negative); RBC Urine 0-4 /hpf (0-2); Specific Gravity, Urine 1.005 (1.005-1.030); Squamous Epithelial Cell Urine 0-4 /hpf (0-5); Urobilinogen Urine Norm (Negative); pH Urine 6.5 (5-7)
--- NOTE | 2021-09-07 23:28 | P.HP_ITS ---
Providers/Chief Complaint Primary Care Provider: Matthew Geller DO Chief Complaint: WEAKNESS History of Present Illness Lady López is a 71 year old female with PMH OF HTN, DM, HFpEF, CAD S/P Recent PCI in , 06/07, P/E on eliquis, discharged today from the ER after being diagnosed with a UTI on Macrobid, came back again after being found altered at home by home health nurse, patient took 1 dose of Macrobid and started having vomiting. When I examined the patient in the ER she was alert awake oriented x3, she was nauseous, did told me that she is not feeling well today, stated that she stays alone with her cat, denied any chest pain shortness of breath, abdominal pain flank pain back pain, fever cough. Upon arrival in the ER she was worked up for above-mentioned complaint: Pertinent imaging studies: CT head without contrast: No acute intracranial pathology X-ray chest; no infiltrates no effusion, cardiomegaly EKG :: Sinus rhythm with left axis deviation, LOW QRS VOLTAGE IN PRECORDIAL LEADS?? Pertinent labs: WBC 9 H&H 12/ 34 , PLT : 323 , serum sodium 133 serum potassium 4 , BUN and serum creatinine 16 and 0.6, random blood sugar 236, ammonia 19 CK 37, AST ALT alk phos total bilirubin normal, TSH : 3.65 , lipase 20 Troponin trend :10-12 Urinalysis: Appearance cloudy , urine nitrate positive, urine leukocyte esterase 2+, urine WBC 10-15, urine bacteria 3+ Acetaminophen level less than 5 salicylate level less than 0.3 Review of Systems General: Reports: 10 or more systems reviewed and unremarkable except in HPI and below Narrative: 69-year-old currently not in acute distress being admitted for chest pain evaluation Const: Denies: fever(s), chills, body aches, change in appetite or diaphoresis Card: Denies: palpitations, edema, swelling of feet/ankles, dyspnea on exertion, orthopnea or leg pain with exertion Resp: Denies: dyspnea, productive cough, wheezing or pain on inspiration GI: Reports: nausea; Denies: abdominal pain, vomiting, diarrhea or constipation : Denies: flank pain Musc: Denies: back pain, extremity pain or extremity swelling Neuro: Denies: headache(s), difficulty walking or confusion Medications/Allergies Home Medications Medication Instructions Recorded Confirmed Last Taken Type amlodipine 10 mg tablet 10 mg PO QAM 02/22/21 08/03/21 03/21/21 08:00 History empagliflozin 10 mg tablet 10 mg PO QAM 02/22/21 08/03/21 03/21/21 08:00 History (Jardiance) fenofibrate nanocrystallized 145 145 mg PO BEDTIME 02/22/21 08/03/21 03/21/21 21:00 History mg tablet insulin glargine 100 unit/mL 40 unit SUBCUT BEDTIME 02/22/21 08/03/21 03/21/21 21:00 History subcutaneous solution (Lantus U-100 Insulin) losartan 100 mg tablet 100 mg PO QAM 02/22/21 08/03/21 03/21/21 08:00 History metformin 1,000 mg tablet 1,000 mg PO BID 02/22/21 08/03/21 03/21/21 21:00 History ondansetron HCl 4 mg tablet 4 mg PO Q6H PRN #14 tab 02/22/21 08/03/21 Unknown Rx (Zofran) apixaban 5 mg tablet (Eliquis) 5 mg PO BID 06/06/21 08/03/21 Unknown History atorvastatin 40 mg tablet 80 mg PO BEDTIME #60 tab 06/09/21 08/03/21 Unknown Rx clopidogrel 75 mg tablet 75 mg PO DAILY #90 tab 06/09/21 08/03/21 Unknown Rx lisinopril 10 mg tablet 10 mg PO DAILY #60 tab 06/09/21 08/03/21 Unknown Rx nitroglycerin 0.4 mg sublingual 0.4 mg SUBLINGUAL Q5M PRN #25 tab 06/09/21 08/03/21 Unknown Rx tablet carvedilol 12.5 mg tablet 25 mg PO BID #60 tab 06/16/21 08/03/21 Unknown Rx isosorbide mononitrate 30 mg 30 mg PO DAILY #30 tab 07/09/21 08/03/21 Unknown Rx tablet,extended release 24 hr furosemide 40 mg tablet (Lasix) 40 mg PO BID #60 tab 08/03/21 08/03/21 Unknown Rx potassium chloride 20 mEq 20 meq PO DAILY #30 tab 08/03/21 08/03/21 Unknown Rx tablet,extended release nitrofurantoin 100 mg PO BID 7 Days #14 cap 09/07/21 Unknown Rx monohydrate/macrocrystals 100 mg capsule (Macrobid) Allergies Allergy/AdvReac Type Severity Reaction Status Date / Time codeine Allergy Unknown ADR-Diarrhe Verified 08/03/21 13:08 a tetanus and diphtheria Allergy Unknown Unknown Verified 08/03/21 13:08 toxoids PFSH Acute PFSH: Medical History Arthritis Asthma Atherosclerosis of coronary artery Bilateral conjunctivitis Diarrhea DKA (diabetic ketoacidosis) DM type 2 (diabetes mellitus, type 2) Gastroenteritis HTN (hypertension) Hyperlipidemia Hypertension associated with diabetes Hypertensive urgency Hypokalemia Left otitis media with spontaneous rupture of eardrum Nausea & vomiting Otitis externa Pulmonary embolism Small bowel mass Surgical History Hx of cholecystectomy Family History Other Cancer Stroke Social History Smoking and tobacco status: never smoked Alcohol intake: never Lives independently: Yes Household members: none Marital status: / Vitals/I&O/Wt Last Vital Signs Temp 98.1 F 09/07/21 10:45 Pulse 66 09/07/21 10:50 Resp 24 H 09/07/21 10:50 BP 160/66 09/07/21 10:50 Pulse Ox 95 09/07/21 10:50 Weight last 48 hrs Weight 90.718 kg Physical Exam HENMT: COMMON NORMALS: normocephalic and atraumatic HEAD & SCALP: normo cephalic and atraumatic Resp: COMMON NORMALS: clear to auscultation bilaterally EFFORT & INSPECTION: Yes symmetric chest movement AUSCULTATION: clear to auscultation bilaterally Cardio: COMMON NORMALS: regular rate, regular rhythm, S1 normal heart sound present, S2 normal heart sound present, No gallops present (Cardio), No murmurs present (Cardio), No rub (Cardio) and Peripheral pulses 2+ throughout RATE: r egular rate RHYTHM: regular rhythm HEART SOUNDS: S1 normal heart sound present and S2 normal heart sound present PERIPHERAL PULSES: Peripheral pulses 2+ throughout GI: COMMON NORMALS: Normal to inspection, nondistended, normoactive bowel sounds present, Soft to palpation, non-tender, No hepatosplenomegaly present and no masses AUSCULTATION: Yes normoactive bowel sounds PALPATION: Yes Soft to palpation and Yes No hepatosplenomegaly present RECTAL EXAM: deferred Extremity: COMMON NORMALS: no clubbing, cyanosis or edema and no pedal edema Data : 09/07/21 11:48 09/07/21 11:30 A&P Assessment and plan (1) Acute UTI: Status: Acute (2) CHF (congestive heart failure): Status: Acute (3) Atherosclerosis of coronary artery: Status: Acute (4) Diabetes: Status: Acute (5) Altered mental status: Status: Acute (6) Hyponatremia: Status: Acute Plan 71 year old female with PMH OF HTN, DM, HFpEF, CAD S/P Recent PCI in , 06/07, P/E on eliquis, discharged today from the ER after being diagnosed with a UTI on Macrobid, came back again after being found altered at home by home health nu rse: Assessment: Altered mental status secondary to UTI UTI Hypertension Diabetes Coronary artery disease s/p recent PCI PE Mild pulmonary hypertension HFpEF: Currently compensated Hyponatremia Plan: Follow urine culture Continue ceftriaxone for now Lantus 40 subcu daily,LDSSI, monitor fingerstick glucose Continue aspirin Plavix statin beta-roge, Imdur Continue Eliquis Gentle IV hydration with normal saline 50 cc an hour Monitor BMP Monitor intake output charting Daily weight K>4,MG>2 CODE STATUS: Full code DVT prophylaxis: Not needed on Eliquis Attestations Medical Necessity Statement*: Patient is to be in hospital for management of UTI altered mental status. Time Spent in Patient Care: Greater than 35 minutes (>than 50% of time spent in counselling and/or direct pt care on unit) . Coding Level of Care Code Acute Interactive Account Manager for Chg Fwd Exam Detailed Diagnoses Acute UTI N39.0 CHF (congestive heart failure) I50.9 Atherosclerosis of coronary artery I25.10 Diabetes E11.9 Altered mental status R41.82 Hyponatremia E87.1
== END 2021-09-07 15:13 | disposition home or self-care (01) ==
PROVIDERS: Emergency Provider Family Medicine; PCP Family Medicine
DX: N30.90 Cystitis, unspecified without hematuria (principal); Z79.01 Long term (current) use of anticoagulants; Z79.84 Long term (current) use of oral hypoglycemic drugs; Z79.02 Long term (current) use of antithrombotics/antiplatelets; Z79.4 Long term (current) use of insulin; I25.10 Atherosclerotic heart disease of native coronary artery without angina pectoris; E11.9 Type 2 diabetes mellitus without complications; I10 Essential (primary) hypertension; E78.5 Hyperlipidemia, unspecified
CPT/HCPCS: 71045; 80053; 81001; 82550; 84484; 85025; 87077; 87086; 87186; 93005; 99285

== ENCOUNTER 2021-09-07 20:07 | Observation (INO) | payer MEDICAID, SELFPAY ==
[2021-09-07 20:08] VITALS: BP 172/58; PULSE 73; RESP 18; TEMP 36.6; O2SAT 91
--- NOTE | 2021-09-07 20:14 | XRR_ITS ---
PROCEDURE INFORMATION: Exam: XR Chest Exam date and time: 09/07/2021 8:22 PM Age: 71 years old Clinical indication: Other: Lethargic; Additional info: AMS TECHNIQUE: Imaging protocol: Radiologic exam of the chest. Views: 1 view. COMPARISON: CR XR chest 1V portable [id number] 09/07/2021 11:04 AM FINDINGS: Lungs: Unremarkable. No consolidation. Pleural spaces: Unremarkable. No pleural effusion. No pneumothorax. Heart/Mediastinum: Cardiomegaly. Bones/joints: Unremarkable. XR/XR chest 1V portable [id number] IMPRESSION: 1. Negative for infiltrate 2. Cardiomegaly.
--- NOTE | 2021-09-07 20:15 | ECG_ITS ---
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 Measurements Intervals [place] Rate: 71 P: 41 ME: 171 QRS: -39 QRSD: 94 T: 73 QT: 437 QTc: 478 Interpretive Statements SINUS RHYTHM LEFT AXIS DEVIATION [QRS AXIS < -30] LOW QRS VOLTAGE IN PRECORDIAL LEADS [QRS DEFLECTION < 1.0 mV IN CHEST LEADS] ANTEROSEPTAL MYOCARDIAL INFARCTION , OF INDETERMINATE AGE [40+ ms Q WAVE IN V1-V4] Compared to ECG 09/07/2021 13:14:40 Left-axis deviation now present Myocardial infarct finding still present Electronically Signed On 09-07-2021 22:24:43 CDT by María Elena Baker M.D. [id number]
--- NOTE | 2021-09-07 20:16 | CTR_ITS ---
PROCEDURE INFORMATION: Exam: CT Head Without Contrast Exam date and time: 09/07/2021 8:39 PM Age: 71 years old Clinical indication: Altered mental status/memory loss; Patient HX: Patient severly lethargic. Non verbal except to make grunting sounds. Recently diagnosed with UTI. ; Additional info: AMS TECHNIQUE: Imaging protocol: Computed tomography of the head without contrast. Radiation optimization: All CT scans at this facility use at least one of these dose optimization techniques: automated exposure control; mA and/or kV adjustment per patient size (includes targeted exams where dose is matched to clinical indication); or iterative reconstruction. COMPARISON: CT head wo con* [id number] 03/22/2021 4:00 PM RADIATION DOSE METRICS: Total DLP (mGy-cm): 992.58 FINDINGS: Brain: Large amount diffuse white matter disease likely reflecting chronic microvascular ischemic changes. Cerebral ventricles: No ventriculomegaly. Paranasal sinuses: Visualized sinuses are unremarkable. No fluid levels. Mastoid air cells: Left mastoid air cell opacification may reflect an infectious or inflammatory process. Bones/joints: Unremarkable. No acute fracture. Soft tissues: Unremarkable. CT/CT head wo con* [id number] IMPRESSION: 1. Negative for intracranial hemorrhage or mass effect. 2. Left mastoid air cell opacification may reflect an infectious or inflammatory process.
--- NOTE | 2021-09-07 20:20 | ED_ITS ---
HPI - General Adult General: Chief complaint: General Medical Stated complaint: LETHARGIC Time Seen by Provider: 09/07/21 20:08 History of Present Illness: Patient is a 71-year-old female with history of DKA, diabetes, hypertension, who was diagnosed with UTI earlier today presenting to the emergency room after patient was found confused and altered at home. Patient was initially seen this morning and was diagnosed with UTI without pyelonephritis was discharged home on with Macrobid. Patient took 1 dose of Macrobid has had 2 episodes of emesis and since this after has been become altered. Patient was found confused by home nursing. At baseline, patient is functional, conversant, able to ambulate without difficulty. Onset:earlier today Duration:ongoing Location:home Severity:severe Associated symptoms: Reports vomiting; Deny rash Review of Systems General: Reports: ROS unobtainable due to mental status GI: Reports: abdominal pain and vomiting Skin/Breast: Denies: rash PFSH ED PFSH: Medical History Arthritis Asthma Atherosclerosis of coronary artery Bilateral conjunctivitis Diarrhea DKA (diabetic ketoacidosis) DM type 2 (diabetes mellitus, type 2) Gastroenteritis HTN (hypertension) Hyperlipidemia Hypertension associated with diabetes Hypertensive urgency Hypokalemia Left otitis media with spontaneous rupture of eardrum Nausea & vomiting Otitis externa Pulmonary embolism Small bowel mass Surgical History Hx of cholecystectomy Family History Other Cancer Stroke Social History Smoking and tobacco status: never smoked Alcohol intake: never Lives independently: Yes Household members: none Marital status: / Physical Exam HENMT: COMMON NORMALS: atraumatic HEAD & SCALP: atraumatic MOUTH: moist mucous membranes not abnormal Eye: COMMON NORMALS: EOMs intact bilaterally and conjunctivae normal CONJUNCTIVA: Yes conjunctivae normal Neck/C-Spine: COMMON NORMALS: full ROM and supple Resp: COMMON NORMALS: normal respiratory effort and clear to auscultation bilaterally AUSCULTATION: clear to auscultation bilaterally Cardio: COMMON NORMALS: regular rate RATE: regular rate GI: COMMON NORMALS: Soft to palpation and non-tender PALPATION: Yes Soft to palpation Extremity: COMMON NORMALS: full ROM Neuro: SENSORIUM/ORIENTATION: Yes Orientation impaired and Yes other (+somnolent) Psych: OTHER: +unable to assess given AMS Course Vital Signs: Vital signs: Vital Signs Temperature 97.8 F 09/07/21 20:08 Pulse Rate 74 09/07/21 20:45 Respiratory Rate 15 09/07/21 20:45 Blood Pressure 164/62 09/07/21 20:45 Pulse Oximetry 96 09/07/21 20:45 MDM - General Adult Medical Decision Making 71-year-old female with a history of DKA, diabetes, hypertension, who was diagnosed with UTI earlier today presenting to the emergency room after patient was found confused and altered at home. Physical exam, patient is somnolent, orientation is impaired. Fingerstick 225. Rest of vitals within normal. No fo joni findings on physical exam. Patient has no signs of ion gap. CT head negative for any acute finding. X-ray chest clear. Rest of labs within normal limit. Suspect that patient has altered mental status secondary to UTI. Patient received ceftriaxone for UTI. On reassessment at 10:51 PM, patient is more awake and alert currently. Patient is answering some questions. However patient still feels weak and unable to get out of bed. Patient has had 2 episode of emesis in the emergency room Disposition: admission Lab Data : 09/07/21 20:23 09/07/21 20:23 Radiology Impressions Chest X-Ray 09/07/21 20:14 IMPRESSION: 1. Negative for infiltrate 2. Cardiomegaly. Head CT 09/07/21 20:16 IMPRESSION: 1. Negative for intracranial hemorrhage or mass effect. 2. Left mastoid air cell opacification may reflect an infectious or inflammatory process. Laboratory Results WBC 9.0 10^3/uL (4.0-10.0) 09/07/21 20: RBC 4.17 10^6/uL (4.1-5.3) 09/07/21 20:23 Hgb 12.0 g/dL (11.5-15.3) 09/07/21 20:23 Hct 34.6 % (37.0-47.0) L 09/07/21 20: MCV 83.0 fl (81-99) 09/07/21 20: MCH 28.8 pg (28.0-34.0) 09/07/21: MCHC 34.7 g/dL (30.0-36.0) 09/07/21: RDW 13.5 % (12.1-15.1) 09/07/21 20: Plt Count 323 10^3/cmm (130-400) 09/07/21: MPV 9.9 fL (7.4-10.4) 09/07/21 20: Neut % (Auto) 86.6 % 09/07/21 20: Lymph % (Auto) 9.0 % 09/07/21: [place] % (Auto) 2.9 % 09/07/21: Eos % (Auto) 0.8 % 09/07/21: Baso % (Auto) 0.3 % 09/07/21: Neut # (Auto) 7.83 10^3/uL (1.8-7.7) H 09/07/21: Lymph # (Auto) 0.8 10^3/uL (0.8-4.8) 09/07/21: [place] # (Auto) 0.3 10^3/uL (0.2-0.9) 09/07/21: Eos # (Auto) 0.1 10^3/uL (0.0-0.8) 09/07/21: Baso # (Auto) 0.0 10^3/uL (0.0-0.1) 09/07/21: Nucleated RBC % (auto) 0 % 09/07/21: Nucleated RBCs # 0.0 /100WBC 09/07/21 20: Sodium 133 mmol/L (136-145) L 09/07/21 20: Potassium 4.0 mmol/L (3.5-5.1) 09/07/21 20: Chloride 94 mmol/L (98-107) L 09/07/21: Carbon Dioxide 25 mmol/L (22-29) 09/07/21 20: Anion Gap 18.0 (5-19) 09/07/21 20: BUN 16 mg/dL (8-23) 09/07/21 20: Creatinine 0.6 mg/dL (0.5-0.9) 09/07/21 20: GFR Calculation 98.8 mL/min (90-130) 09/07/21 20: Glucose 236 mg/dL (65-115) H 09/07/21 20: Calculated Osmolality 285 mOsm/kg (285-295) 09/07/21 20: Lactate 0.8 mmol/L (0.5-2.2) 09/07/21 20: Calcium 9.4 mg/dL (8.5-10.5) 09/07/21 20: Total Bilirubin 0.4 mg/dL (0.15-1.2) 09/07/21 20: AST 12 U/L (0-32) 09/07/21 20: ALT 8 U/L (0-33) 09/07/21 20: Alkaline Phosphatase 42 IU/L (35-105) 09/07/21: Ammonia 19 umol/L (11-51) 09/07/21: Troponin T Baseline 10 ng/L (0-10) 09/07/21 20: Total Protein 7.3 g/dL (6.6-8.7) 09/07/21 20: Albumin 4.2 g/dL (3.5-5.2) 09/07/21 20: Globulin 3.1 g/dL (1.3-4.6) 09/07/21: Lipase 20 U/L (13-60) 09/07/21: TSH 3.65 uIU/mL (0.27-4.20) 09/07/21 20: Salicylates < 0.3 mg/dL (3-10) L 09/07/21 20: Acetaminophen < 5.0 ug/mL (10-30) L 09/07/21 20: Imaging Data Other Imaging: Radiologist's impression: [address] [place] [address] CT Scan Report Signed Patient: Lady López Unit #: [id number] : 1950 Age/Sex: 71 / F ADM Date: 09/07/21 Loc: ER Room/Bed: Attending Dr: Ordering Provider/Ordering MD: Columba Daly MD Date of Service: 09/07/21 Procedure(s): CT head wo con* [id number] Accession Number(s): [id number] Report Number: [id number] PROCEDURE INFORMATION: Exam: CT Head Without Contrast Exam date and time: 09/07/2021 8:39 PM Age: 71 years old Clinical indication: Altered mental status/memory loss; Patient HX: Patient severly lethargic. Non verbal except to make grunting sounds. Recently diagnosed with UTI. ; Additional info: AMS TECHNIQUE: Imaging protocol: Computed tomography of the head without contrast. Radiation optimization: All CT scans at this facility use at least one of these dose optimization techniques: automated exposure control; mA and/or kV adjustment per patient size (includes targeted exams where dose is matched to clinical indication); or iterative reconstruction. COMPARISON: CT head wo con* [id number] 03/22/2021 4:00 PM RADIATION DOSE METRICS: Total DLP (mGy-cm): 992.58 FINDINGS: Brain: Large amount diffuse white matter disease likely reflecting chronic microvascular ischemic changes. Cerebral ventricles: No ventriculomegaly. Paranasal sinuses: Visualized sinuses are unremarkable. No fluid levels. Mastoid air cells: Left mastoid air cell opacification may reflect an infectious or inflammatory process. Bones/joints: Unremarkable. No acute fracture. Soft tissues: Unremarkable. CT/CT head wo con* [id number] IMPRESSION: 1. Negative for intracranial hemorrhage or mass effect. 2. Left mastoid air cell opacification may reflect an infectious or inflammatory process. ? Dictated By: Biju Llanos MD Signed By: Biju Llanos MD Signed Date/Time: 09/07/212123 DD/ [address] [address] XRay Report Signed Patient: Lady López Unit #: [id number] : 1950 Age/Sex: 71 / F ADM Date: 09/07/21 Loc: ER Room/Bed: Attending Dr: Ordering Provider/Ordering MD: Columba Daly MD Date of Service: 09/07/21 Procedure(s): XR chest 1V portable [id number] Accession Number(s): [id number] Report Number: [id number] PROCEDURE INFORMATION: Exam: XR Chest Exam date and time: 09/07/2021 8:22 PM Age: 71 years old Clinical indication: Other: Lethargic; Additional info: AMS TECHNIQUE: Imaging protocol: Radiologic exam of the chest. Views: 1 view. COMPARISON: CR XR chest 1V portable [id number] 09/07/2021 11:04 AM FINDINGS: Lungs: Unremarkable. No consolidation. Pleural spaces: Unremarkable. No pleural effusion. No pneumothorax. Heart/Mediastinum: Cardiomegaly. Bones/joints: Unremarkable. XR/XR chest 1V portable [id number] IMPRESSION: 1. Negative for infiltrate 2. Cardiomegaly. ? Dictated By: Biju Llanos MD Signed By: Biju Llanos MD Signed Date/Time: 09/07/212123 DD/ 21 Discharge Plan Discharge Patient Disposition: Admitted As Inpatient Clinical Impression: Altered mental status, Acute UTI Condition: Stable Coding Level of Care Code ED Automotive Service Director for Chg Fwd Exam Comprehensive
[2021-09-07 20:36] LABS: Basophils % 0.3 %; Eosinophils # 0.1 10^3/uL (0.0-0.8); Eosinophils % 0.8 %; Hematocrit 34.6 % (37.0-47.0); Lymphocytes # 0.8 10^3/uL (0.8-4.8); Mean Corpuscular HGB Conc 34.7 g/dL (30.0-36.0); Mean Corpuscular Hemoglobin 28.8 pg (28.0-34.0); Mean Platelet Volume 9.9 fL (7.4-10.4); Monocytes # 0.3 10^3/uL (0.2-0.9); Monocytes % 2.9 %; Neutrophils # 7.83 10^3/uL (1.8-7.7); Neutrophils % 86.6 %; Nucleated Red Blood Cells % 0 %; Platelet Count 323 10^3/cmm (130-400); Red Blood Count 4.17 10^6/uL (4.1-5.3); Red Cell Distribution Width 13.5 % (12.1-15.1)
[2021-09-07 20:45] VITALS: BP 164/62; PULSE 74; RESP 15; O2SAT 96
[2021-09-07 21:01] LABS: Ammonia 19 umol/L (11-51); Troponin(5th) Baseline 10 ng/L (0-10)
[2021-09-07 21:04] LABS: Lactate (Lactic Acid level) 0.8 mmol/L (0.5-2.2)
[2021-09-07] MEDS: ondansetron 2 mg/ML SDV 2 mL 4 MG IVP (21:08)
[2021-09-07] MEDS: sodium chloride 0.9% 1,000 ML 999 ML IV (21:08)
[2021-09-07 21:47] LABS: Acetaminophen < 5.0 ug/mL (10-30); Alanine Aminotransferase 8 U/L (0-33); Albumin Level 4.2 g/dL (3.5-5.2); Alkaline Phosphatase 42 IU/L (35-105); Aspartate Amino Transferase 12 U/L (0-32); Blood Urea Nitrogen 16 mg/dL (8-23); Calcium 9.4 mg/dL (8.5-10.5); Carbon Dioxide 25 mmol/L (22-29); Chloride 94 mmol/L (98-107); Globulin 3.1 g/dL (1.3-4.6); Glomerular Filtration Rate 98.8 mL/min (90-130); Glucose 236 mg/dL (65-115); Lipase 20 U/L (13-60); Osmolality Calculated 285 mOsm/kg (285-295); Salicylate < 0.3 mg/dL (3-10); Sodium 133 mmol/L (136-145); Thyroid Stimulating Hormone 3.65 uIU/mL (0.27-4.20); Total Bilirubin 0.4 mg/dL (0.15-1.2); Total Protein 7.3 g/dL (6.6-8.7)
--- NOTE | 2021-09-07 22:15 | ECG_ITS ---
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 Measurements Intervals [place] Rate: 61 P: 248 CA: 129 QRS: -53 QRSD: 89 T: 85 QT: 343 QTc: 348 Interpretive Statements RHYTHM INDETERMINATE BECAUSE OF ARTIFACT LEFT AXIS DEVIATION [QRS AXIS < -30] ANTEROSEPTAL MYOCARDIAL INFARCTION , OF INDETERMINATE AGE [40+ ms Q WAVE IN V1-V4] Compared to ECG 10/12/2021 17:19:21 Myocardial infarct finding still present Electronically Signed On 11-15-2021 16:36:48 CDT by Bryan Posadas M.D. [id number]
[2021-09-07 23:18] LABS: Free T4 Free Thyroxine 1.29 ng/dL (0.82-1.77)
[2021-09-08] VITALS (9 sets, daily range): BP systolic 125–158; BP diastolic 64–72; PULSE 58–70; RESP 14–24; TEMP 36.4–36.9; O2SAT 92–100
[2021-09-08 00:10] LABS: Ketone (Acetest) Serum Negative (Negative)
[2021-09-08 00:12] LABS: Troponin 5 2HR 11.49 ng/L (0-10)
[2021-09-08 00:16] LABS: Troponin 5 2HR Delta 1.49 ABS# (0-10)
[2021-09-08 00:45] LABS: Bilirubin Urine Neg (Negative); Blood Urine Neg (Negative); Glucose Urine UA 1+ (Normal); Ketones Urine Negative (Negative); Leukocyte Esterase Urine 1+ (Negative); Nitrate Urine Negative (Negative); Protein Urine Neg (Negative); Specific Gravity, Urine 1.015 (1.005-1.030); Urine Appearance SL Hazy (CLEAR); Urine Color Yellow (Yellow); Urobilinogen Urine Norm (Negative); pH Urine 6 (5-7)
[2021-09-08 00:47] LABS: Add Urine Culture? Yes; Bacteria Urine 4+ /hpf; RBC Urine 0-4 /hpf (0-2); WBC Urine 15-25 /hpf (0-5)
[2021-09-08] MEDS: insulin glargine 100 units/1 mL 20 UNIT SUBCUT (01:21)
[2021-09-08] MEDS: sodium chloride 0.9% 1,000 ML 50 ML IV (01:21)
[2021-09-08 04:35] LABS: Alanine Aminotransferase 8 U/L (0-33); Albumin Level 3.6 g/dL (3.5-5.2); Alkaline Phosphatase 40 IU/L (35-105); Anion Gap 14.1 (5-19); Aspartate Amino Transferase 12 U/L (0-32); Blood Urea Nitrogen 15 mg/dL (8-23); Calcium 8.8 mg/dL (8.5-10.5); Carbon Dioxide 27 mmol/L (22-29); Chloride 100 mmol/L (98-107); Globulin 2.8 g/dL (1.3-4.6); Glomerular Filtration Rate 98.8 mL/min (90-130); Glucose 277 mg/dL (65-115); Osmolality Calculated 295 mOsm/kg (285-295); Potassium 4.1 mmol/L (3.5-5.1); Sodium 137 mmol/L (136-145); Total Bilirubin 0.3 mg/dL (0.15-1.2); Total Protein 6.4 g/dL (6.6-8.7)
[2021-09-08 06:38] LABS: Glucose Point of Care 240 mg/dL (70-110)
--- NOTE | 2021-09-08 09:09 | PC.PHAR ---
pt unable to verify medications - verified by [facility] - pt states she is unsure if she still takes her eliquis 5mg BID; last filled 03/24/21
[2021-09-08] MEDS: insulin lispro 100 unit/1 mL SUBCUT ×4 (09:20→21:31)
[2021-09-08] MEDS: cefTRIAXone 1,000 MG in sodium chloride 0.9% (plus) 50 ML 100 MG IV ×2 (09:20)
[2021-09-08] MEDS: clopidogrel 75 mg Tablet PO (09:21)
[2021-09-08] MEDS: apixaban 5 mg Tablet PO ×2 (09:21→20:02)
[2021-09-08] MEDS: lisinopril 10 mg Tablet PO (09:21)
[2021-09-08] MEDS: isosorbide mononitrate ER 30 mg Tablet PO (09:21)
[2021-09-08] MEDS: amlodipine 10 mg Tablet PO (09:21)
[2021-09-08] MEDS: acetaminophen 325 mg Tablet 650 MG PO (10:08)
--- NOTE | 2021-09-08 10:23 | PC.CHAP ---
Pastoral Care Encounter/Spiritual Assessment Type of Contact [] Declined sports marketing specialist visit [] Patient/Family/Request visit [] Outpatient visit [] Follow-up visit [] Physician referral [] Code/Alert [x] Routine visit [] Staff referral [] Actively dying [] Patient sleeping [] Family support [] [] Out of room [] Palliative care [] [x] Receiving care in room [] Pre-surgical visit [] Trauma [x] Long length of stay [] ICU visit [] Other: Relational/Emotional Strength [x] Patient feels connected with others/family/visitors/staff [] Distress [] Loneliness/isolation [] Abandonment Spirituality of Patient [x] Person of Tanja [] Attends Religious of their Tanja [x] Believes in Prayer [] Reads Bible or Mandaeism materials [] There are Spiritual issues to be addressed Email Marketing Specialist Interventions [x] Prayer [x] Active listening [x] Non-anxious presence [x] Spiritual/emotional support [] Crisis/trauma care [x] Spiritual counseling [] Bereavement support [] Provided bereavement packet [] Provided Bible/devotional materials [] Provided toy/stuffed animal, coloring book to patient or family member [] Provided Communion [] Anointing/[place] [] Salvation [x] Completed spiritual assessment [] Other: Impact on Illness or Injury [] Angry [] Fearful [] Anxious [] Often cries [] Exhaustion [x] Unable to work [] Unable to attend taoist [] Unable to walk/stand [] Unable to read [] Unable to drive [] Unable to eat/drink [] Unable to sleep [] Unable to be with family [] Patient intubated [] Other: Summary in pain doesn't know about her health negative feelings not sure when she will go home Time spent with patient 10 mins
[2021-09-08 11:43] LABS: Glucose Point of Care 279 mg/dL (70-110)
[2021-09-08 17:33] LABS: Glucose Point of Care 299 mg/dL (70-110)
[2021-09-08] MEDS: atorvastatin 40 mg Tablet PO (20:02)
[2021-09-08] MEDS: insulin glargine 100 units/1 mL 40 UNIT SUBCUT (20:03)
--- NOTE | 2021-09-08 20:07 | P.PN_ITS ---
Subjective Subjective: She has been overall feeling malaised, weak. Returns to the hospital after recent ER visit and continuing to feel worse. So far not yet feeling any stronger this morning. She is also ready to return home. Having also rib pain on the right side after leaning on a chair back to try to clean up under the bed. It is limiting her inspiration. Vitals/I&O/Wt Last Vital Signs Temp 97.8 F 09/08/21 16:00 Pulse 60 09/08/21 16:00 Resp 16 09/08/21 16:00 BP 133/64 09/08/21 16:00 Pulse Ox 99 09/08/21 16:00 09/08/21 09/08/21 09/08/21 06:59 14:59 22:59 Intake Total 1050 / 1050 740 / 740 360 / 1100 Balance 1050 / 1050 740 / 740 360 / 1100 Weight last 48 hrs Weight 92.805 kg Physical Exam Const: COMMON NORMALS: alert GENERAL APPEARANCE: cooperative NUTRITIONAL APPEARANCE: obese ORIENTATION/CONSCIOUSNESS: Yes awake HENMT: COMMON NORMALS: normocephalic, EAC's normal, Normal external nose present and moist oral mucous membranes HEAD & SCALP: normocephalic NOSE: Normal external nose present EXTERNAL AUDITORY CANAL: EAC's normal Neck/C-Spine: COMMON NORMALS: no meningeal signs Chest: CHEST: Yes Symmetrical chest wall rise Resp: COMMON NORMALS: clear to auscultation bilaterally AUSCULTATION: clear to auscultation bilaterally Cardio: COMMON NORMALS: regular rate, regular rhythm and No murmurs present (Cardio) RATE: regular rate RHYTHM: regular rhythm GI: COMMON NORMALS: Normal to inspection, nondistended, normoactive bowel sounds present, Soft to palpation and non-tender PALPATION: Yes Soft to palpation Extremity: COMMON NORMALS: no pedal edema Neuro: COMMON NORMALS: moves all extremities SENSORIUM/ORIENTATION: Yes alert MENINGEAL SIGNS: Yes no meningeal signs Psych: COMMON NORMALS: mental status grossly normal Skin: COMMON NORMALS: no wounds RASHES: no rashes Data : 09/07/21 20:23 09/08/21 03:21 Micro: Microbiology 09/07/21 22:23 Blood Culture - Preliminary Blood SPECIMEN COLLECTED 09/07/21 22:23 Blood Culture - Preliminary Blood SPECIMEN COLLECTED A&P Assessment and plan (1) Acute UTI: Continue ceftriaxone. Follow-up urine culture. Status: Acute Plan Right chest wall pain/rib pain: Incentive spirometer. Lidocaine patch. Generalized Notes: Treat UTI. Optimization of pain control. PT assessment. Altered mental status secondary to UTI: Improved Hypertension Diabetes Coronary artery disease s/p recent PCI PE Mild pulmonary hypertension HFpEF: Currently compensated. Stop IVF. Hyponatremia resolved Attestations Medical Necessity Statement*: Continue hospitalization due to ongoing malaise, urinary tract infection, generalized weakness, optimization of pain control. Coding Level of Care Code Acute Crown Wheel Assembler for [facility] Fwd Exam Comprehensive Diagnoses Acute UTI N39.0
[2021-09-08 21:16] LABS: Glucose Point of Care 271 mg/dL (70-110)
[2021-09-09] VITALS (7 sets, daily range): BP systolic 121–162; BP diastolic 62–75; PULSE 60–69; RESP 16–18; TEMP 36.4–37.1; O2SAT 98–99
[2021-09-09 05:29] LABS: Basophils # 0.1 10^3/uL (0.0-0.1); Basophils % 0.7 %; Eosinophils # 0.3 10^3/uL (0.0-0.8); Eosinophils % 4.2 %; Hematocrit 29.3 % (37.0-47.0); Hemoglobin 9.9 g/dL (11.5-15.3); Lymphocytes # 1.7 10^3/uL (0.8-4.8); Lymphocytes % 20.5 %; Mean Corpuscular HGB Conc 33.8 g/dL (30.0-36.0); Mean Corpuscular Hemoglobin 28.4 pg (28.0-34.0); Monocytes # 0.6 10^3/uL (0.2-0.9); Monocytes % 7.3 %; Neutrophils # 5.47 10^3/uL (1.8-7.7); Neutrophils % 66.9 %; Nucleated Red Blood Cells % 0 %; Platelet Count 274 10^3/cmm (130-400); Red Blood Count 3.49 10^6/uL (4.1-5.3); Red Cell Distribution Width 13.6 % (12.1-15.1); White Blood Count 8.2 10^3/uL (4.0-10.0)
[2021-09-09 05:46] LABS: Lactic Sepsis W/Reflex 0.6 mmol/L (0.5-2.2)
[2021-09-09 05:47] LABS: Anion Gap 11.8 (5-19); Blood Urea Nitrogen 16 mg/dL (8-23); Calcium 9.3 mg/dL (8.5-10.5); Carbon Dioxide 29 mmol/L (22-29); Chloride 100 mmol/L (98-107); Glomerular Filtration Rate 82.7 mL/min (90-130); Glucose 182 mg/dL (65-115); Osmolality Calculated 290 mOsm/kg (285-295); Potassium 3.8 mmol/L (3.5-5.1); Sodium 137 mmol/L (136-145)
[2021-09-09 05:54] LABS: Procalcitonin 0.07 ng/mL (0-0.5)
[2021-09-09 06:30] LABS: Glucose Point of Care 184 mg/dL (70-110)
[2021-09-09] MEDS: cefTRIAXone 1,000 MG in sodium chloride 0.9% (plus) 50 ML 100 MG IV (08:23)
[2021-09-09] MEDS: insulin lispro 100 unit/1 mL SUBCUT ×3 (08:24→17:54)
[2021-09-09] MEDS: isosorbide mononitrate ER 30 mg Tablet PO (08:25)
[2021-09-09] MEDS: amlodipine 10 mg Tablet PO (08:25)
[2021-09-09] MEDS: lisinopril 10 mg Tablet PO (08:25)
[2021-09-09] MEDS: clopidogrel 75 mg Tablet PO (08:25)
[2021-09-09] MEDS: lidocaine 5% Patch 1 PATCH TOPICAL (09:18)
[2021-09-09] MEDS: apixaban 5 mg Tablet PO (09:19)
[2021-09-09 11:19] LABS: Glucose Point of Care 354 mg/dL (70-110)
[2021-09-09 12:56] LABS: SARS Covid-2 Antigen Negative (Negative)
[2021-09-09] MEDS: acetaminophen 325 mg Tablet 650 MG PO (15:35)
[2021-09-09 17:47] LABS: Glucose Point of Care 292 mg/dL (70-110)
--- NOTE | 2021-09-09 18:29 | P.DS_ITS ---
Discharge Providers Date of Admission: 09/07/21 22:50 Date of Discharge: September 09, 2021 Attending Provider at Admission: Edwin Booth MD Attending Provider at Discharge: Zach Webb Primary Care Provider: Matthew Geller DO Diagnoses at Discharge Discharge Diagnosis (1) Acute UTI: Status: Acute Reason for Visit Reason for Visit: LETHARGIC Hospital Course Hospital Course Very pleasant 71-year-old lady was hospitalized for observation after returning after discharge from ER with diagnosis of urinary tract infection, started on Macrobid, but with worsened altered mental status at home, here endorsed malaise, also some dizziness. CT of the head without intracranial hemorrhage or mass-effect. Left mastoid air cell opacification, possibly infectious or inflammatory process, but without signs of malignant mastoiditis. Antibiotics were changed to Rocephin. Urine culture requested. She received brief IV fluid hydration. Lasix were held. Appears to have been on both lisinopril and losartan, held. Yesterday still with some malaise, although f eeling better, today continue to improve. Worked with physical therapy with recommendation for home exercise program. Rapid COVID-19 negative. Urine culture eventually growing pansensitive E. coli. Discussing with her, we will give prescription to complete for UTI with cefdinir. Nitrofurantoin is stopped. As she is not currently fluid overloaded, Lasix for now changed to as needed daily for edema. At discharge lisinopril was discontinued. Continue only losartan. During hospitalization had also tenderness in the right side chest wall/rib cage, after leaning over a chair to clean the floor. Chest x-ray showed some cardiomegaly, otherwise without acute abnormality. Provided with lidocaine patch. Discontinue when no longer needed. Physical Exam Const: COMMON NORMALS: alert GENERAL APPEARANCE: cooperative NUTRITIONAL APPEARANCE: obese ORIENTATION/CONSCIOUSNESS: Yes awake HENMT: COMMON NORMALS: normocephalic, EAC's normal, Normal external nose present and moist oral mucous membranes HEAD & SCALP: normocephalic NOSE: Normal external nose present EXTERNAL AUDITORY CANAL: EAC's normal Neck/C-Spine: COMMON NORMALS: no meningeal signs Chest: CHEST: Yes Symmetrical chest wall rise Resp: COMMON NORMALS: clear to auscultation bilaterally AUSCULTATION: clear to auscultation bilaterally Cardio: COMMON NORMALS: regular rate, regular rhythm and No murmurs present (Cardio) RATE: regular rate RHYTHM: regular rhythm GI: COMMON NORMALS: Normal to inspection, nondistended, normoactive bowel sounds present, Soft to palpation and non-tender PALPATION: Yes Soft to palpation Extremity: COMMON NORMALS: no pedal edema Neuro: COMMON NORMALS: moves all extremities SENSORIUM/ORIENTATION: Yes alert MENINGEAL SIGNS: Yes no meningeal signs Psych: COMMON NORMALS: mental status grossly normal Skin: COMMON NORMALS: no wounds RASHES: no rashes Discharge Data Studies Completed and Pending Completed Studies During Hospitalization Category Date Time Status CT head wo con* [id number] Urgent Cat Scan 09/07/21 20:16 Completed XR chest 1V portable [id number] Urgent Exams 09/07/21 20:14 Completed Pending at discharge Category Date Time Status Basic Metabolic Panel AM LABS Lab 09/10/21 04:00 Ordered Basic Metabolic Panel AM LABS Lab 09/11/21 04:00 Ordered Blood Culture Stat Lab 09/07/21 22:23 Results Complete Blood Count w/Auto AM LABS Lab 09/10/21 04:00 Ordered Complete Blood Count w/Auto AM LABS Lab 09/11/21 04:00 Ordered Urine Culture Stat Lab 09/07/21 23:54 Results Radiology Impressions Chest X-Ray 09/07/21 20:14 IMPRESSION: 1. Negative for infiltrate 2. Cardiomegaly. Head CT 09/07/21 20:16 IMPRESSION: 1. Negative for intracranial hemorrhage or mass effect. 2. Left mastoid air cell opacification may reflect an infectious or inflammatory process. Laboratory Results WBC 8.2 10^3/uL (4.0-10.0) 09/09/21 05:18 RBC 3.49 10^6/uL (4.1-5.3) L 09/09/21 05:18 Hgb 9.9 g/dL (11.5-15.3) L 09/09/21 05:18 Hct 29.3 % (37.0-47.0) L 09/09/21 05:18 MCV 84.0 fl (81-99) 09/09/21 05:18 MCH 28.4 pg (28.0-34.0) 09/09/21 05:18 MCHC 33.8 g/dL (30.0-36.0) 09/09/21 05:18 RDW 13.6 % (12.1-15.1) 09/09/21 05:18 Plt Count 274 10^3/cmm (130-400) 09/09/21 05:18 MPV 10.0 fL (7.4-10.4) 09/09/21 05:18 Neut % (Auto) 66.9 % 09/09/21 05:18 Lymph % (Auto) 20.5 % 09/09/21 05:18 [place] % (Auto) 7.3 % 09/09/21 05:18 Eos % (Auto) 4.2 % 09/09/21 05:18 Baso % (Auto) 0.7 % 09/09/21 05:18 Neut # (Auto) 5.47 10^3/uL (1.8-7.7) 09/09/21 05:18 Lymph # (Auto) 1.7 10^3/uL (0.8-4.8) 09/09/21 05:18 [place] # (Auto) 0.6 10^3/uL (0.2-0.9) 09/09/21 05:18 Eos # (Auto) 0.3 10^3/uL (0.0-0.8) 09/09/21 05:18 Baso # (Auto) 0.1 10^3/uL (0.0-0.1) 09/09/21 05:18 Nucleated RBC % (auto) 0 % 09/09/21 05:18 Nucleated RBCs # 0.0 /100WBC 09/09/21 05:18 Sodium 137 mmol/L (136-145) 09/09/21 05:18 Potassium 3.8 mmol/L (3.5-5.1) 09/09/21 05:18 Chloride 100 mmol/L (98-107) 09/09/21 05:18 Carbon Dioxide 29 mmol/L (22-29) 09/09/21 05:18 Anion Gap 11.8 (5-19) 09/09/21 05:18 BUN 16 mg/dL (8-23) 09/09/21 05:18 Creatinine 0.7 mg/dL (0.5-0.9) 09/09/21 05:18 GFR Calculation 82.7 mL/min (90-130) L 09/09/21 05:18 Glucose 182 mg/dL (65-115) H 09/09/21 05:18 POC Glucose 292 mg/dL (70-110) H 09/09/21 17:30 Calculated Osmolality 290 mOsm/kg (285-295) 09/09/21 05:18 Lactic Acid 0.6 mmol/L (0.5-2.2) 09/09/21 05:18 Lactate 0.8 mmol/L (0.5-2.2) 09/07/21 20:23 Calcium 9.3 mg/dL (8.5-10.5) 09/09/21 05:18 Total Bilirubin 0.3 mg/dL (0.15-1.2) 09/08/21 03:21 AST 12 U/L (0-32) 09/08/21 03:21 ALT 8 U/L (0-33) 09/08/21 03:21 Alkaline Phosphatase 40 IU/L (35-105) 09/08/21 03:21 Ammonia 19 umol/L (11-51) 09/07/21 20:23 Troponin T Baseline 10 ng/L (0-10) 09/07/21 20:23 Troponin T 120 Minute 11.49 ng/L (0-10) H 09/07/21 22:23 Delta Troponin T 1.49 ABS# (0-10) 09/07/21 22:23 Total Protein 6.4 g/dL (6.6-8.7) L 09/08/21 03:21 Albumin 3.6 g/dL (3.5-5.2) 09/08/21 03:21 Globulin 2.8 g/dL (1.3-4.6) 09/08/21 03:21 Lipase 20 U/L (13-60) 09/07/21 20:23 Procalcitonin 0.07 ng/mL (0-0.5) 09/09/21 05:18 Procalcitonin Cancelled 09/09/21 05:18 TSH 3.65 uIU/mL (0.27-4.20) 09/07/21 20:23 Free T4 1.29 ng/dL (0.82-1.77) 09/07/21 20:23 Urine Color Yellow (Yellow) 09/07/21 23:54 Urine Appearance Sl hazy (CLEAR) 09/07/21 23:54 Urine pH 6 (5-7) 09/07/21 23:54 Ur Specific [place] 1.015 (1.005-1.030) 09/07/21 23:54 Urine Protein Neg (Negative) 09/07/21 23:54 Urine Glucose (UA) 1+ (Normal) H 09/07/21 23:54 Urine Ketones Negative (Negative) 09/07/21 23:54 Urine Blood Neg (Negative) 09/07/21 23:54 Urine Nitrate Negative (Negative) 09/07/21 23:54 Urine Bilirubin Neg (Negative) 09/07/21 23:54 Urine Urobilinogen Norm mg/dL (Negative) 09/07/21 23:54 Ur Leukocyte Esterase 1+ (Negative) H 09/07/21 23:54 Ur Microscopic Indic Cancelled 09/07/21 23:54 Urine RBC 0-4 /hpf (0-2) H 09/07/21 23:54 Urine WBC 15-25 /hpf (0-5) H 09/07/21 23:54 Ur Squamous Epith Cells 5-10 /hpf (0-5) H 09/07/21 23:54 Amorphous Sediment Not Reportable 09/07/21 23:54 Urine Bacteria 4+ /hpf (NONE) H 09/07/21 23:54 Salicylates < 0.3 mg/dL (3-10) L 09/07/21 20:23 Acetaminophen < 5.0 ug/mL (10-30) L 09/07/21 20:23 Serum Ketones Negative (Negative) 09/07/21 22:23 SARS-CoV-2 Ag (Rapid) Negative (Negative) 09/09/21 12:15 Vitals Last Vital Signs Temp 98.2 F 09/09/21 16:00 Pulse 63 09/09/21 16:00 Resp 16 09/09/21 16:00 BP 121/63 09/09/21 16:00 Pulse Ox 99 09/09/21 16:00 Discharge Plan Discharge Patient Disposition: Home Condition: Stable Prescriptions: New cefdinir 300 mg capsule 300 mg PO Q12H 10 Days Qty: 20 0RF lidocaine 5 % Adhesive Patch,Medicated 1 patch topical [id number] Qty: 14 0RF cefdinir 300 mg capsule 300 mg PO Q12H 10 Days Qty: 20 0RF lidocaine 5 % Adhesive Patch,Medicated 1 patch topical [id number] Qty: 14 0RF Continued insulin glargine [Lantus U-100 Insulin] 100 unit/mL solution 40 unit SUBCUT BEDTIME 0RF amlodipine 10 mg tablet 10 mg PO QAM 0RF metformin 1,000 mg tablet 1,000 mg PO BID 0RF Hold Instructions: Resume on 06/11/21. Hold on 06/09 and 06/10. losartan 100 mg tablet 100 mg PO QAM 0RF fenofibrate nanocrystallized 145 mg tablet 145 mg PO BEDTIME 0RF Jardiance 10 mg tablet 10 mg PO QAM 0RF ondansetron HCl [Zofran] 4 mg tablet 4 mg PO Q6H PRN (Reason: nausea and vomiting) Qty: 14 0RF Eliquis 5 mg Tablet 5 mg PO BID 0RF clopidogrel 75 mg Tablet 75 mg PO DAILY Qty: 90 4RF atorvastatin 40 mg Tablet 80 mg PO BEDTIME Qty: 60 4RF nitroglycerin 0.4 mg Tablet, Sublingual 0.4 mg sublingual Q5M PRN (Reason: Chest Pain) Qty: 25 6RF isosorbide mononitrate 30 mg tablet extended release 24 hr 30 mg PO DAILY Qty: 30 0RF pantoprazole 40 mg Tablet,Delayed Release (Dr/Ec) 40 mg PO DAILY 0RF carvedilol 12.5 mg tablet 12.5 mg PO BID 0RF Changed Lasix 40 mg tablet 40 mg PO DAILY PRN (Reason: Edema) Qty: 60 3RF potassium chloride 20 mEq tablet extended release 10 meq PO DAILY Qty: 30 3RF Lasix 40 mg tablet 40 mg PO DAILY PRN (Reason: Edema) Qty: 60 3RF potassium chloride 20 mEq tablet extended release 10 meq PO DAILY Qty: 30 3RF Discontinued lisinopril 10 mg Tablet 10 mg PO DAILY Qty: 60 3RF nitrofurantoin monohyd/m-cryst [Macrobid] 100 mg capsule 100 mg PO BID 7 Days Qty: 14 0RF Rx Instructions: must administer with a meal/food Discharge Orders: Discharge Order (Routine); Ordered 09/09/21 Ordered By: Zach Webb Referrals: Matthew Geller DO [Primary Care Provider] - 4-7 days (Please call Sunday to schedule a follow up appointment) Discharge Diet: Cardiac and Diabetic Discharge Activity: Increase activity as tolerated and As per PT/OT instructions Patient Instructions: Cefdinir (By mouth), Lidocaine Patch (On the skin), Urinary Tract Infection in Women (GEN), Fall Prevention (GEN) Activity Restrictions/Additional Instructions: Please follow-up with your primary doctor regarding urinary tract infection. Discuss fluid incidentally seen in left mastoid. Complete antibiotic course. Make sure to discuss with your doctor in case you experience any hearing changes, pain behind your ear, redness or swelling, any sensation of room spinning around you, ear pain or other symptoms. Please continue incentive spirometer at home. Discussed rib pain with your doctor. Avoid any additional injury to your right side chest wall/rib. Discontinue lidocaine patch use pain resolves. Discharge Attestations Time Spent in Discharge Care*: greater than 30 min Status at Discharge: Cognitive status at discharge: mildly impaired cognition , Behavioral status at discharge: cooperative , Quality Metrics Clinical Quality Measures [ No reported AMI, CVA or VTE this stay] Coding Level of Care Code Acute Chg FW DC note Diagnoses Acute UTI N39.0
== END 2021-09-09 19:20 | disposition home or self-care (01) ==
LOC: ER 22:58 → MEDSURG 23:28
PROVIDERS: Admitting Provider Internal Medicine; Emergency Provider Emergency Medicine; PCP Family Medicine; Visit Provider Internal Medicine
DX: N39.0 Urinary tract infection, site not specified (principal); I51.7 Cardiomegaly; E11.9 Type 2 diabetes mellitus without complications; I10 Essential (primary) hypertension; M19.90 Unspecified osteoarthritis, unspecified site; E78.5 Hyperlipidemia, unspecified; Z86.711 Personal history of pulmonary embolism
CPT/HCPCS: 36415; 36416; 70450; 71045; 80048; 80053; 80307; 81001; 82009; 82140; 82962; 83605; 83690; 84145; 84439; 84443; 84484; 85025; 87040; 87077; 87086; 87186; 87426; 93005; 96365; 96366; 96367; 96372; 96375; 97161; 97530; 99285; G0378; J0696; J1815; J2405; J7030

== ENCOUNTER 2021-10-12 10:56 | Observation (INO) | payer MEDICAID, SELFPAY ==
[2021-10-12] VITALS (12 sets, daily range): BP systolic 150–182; BP diastolic 64–80; PULSE 50–88; RESP 15–18; TEMP 36.9; O2SAT 91–100
--- NOTE | 2021-10-12 11:03 | CT_ITS ---
WS: [id number] CT HEAD NONCONTRAST HISTORY: ams TECHNIQUE: Contiguous axial imaging performed through the brain in 2.5 mm imaging. Bone and soft tiss ue windows. Sagittal and coronal reformats reviewed. All CT scans at [facility] use at least one of these dose optimization techniques: automated exposure control; mA and/or kV adjustment per pa tient size (includes targeted exams where dose is matched to clinical indication); or iterative recon struction. DLP: 1031.38 mGy.cm COMPARISON: 10/12/2021 No acute intracranial hemorrhage, midline shift or mass effect. Mild atrophy with severe bilateral small vessel ischemic changes. There is low attenuation throughout the white matter as seen on prior examinations. Ventricles: Very mildly prominent ventricles. No midline shift. No mass effect. No inferior displacement of cerebellar tonsils. Paranasal sinuses: Mucoperiosteal thickening throughout the LEFT maxillary sinus. Mastoid air cells: Extensive opacification of both mastoid air cells. Progressive opacification of th e RIGHT mastoid air cells since the prior study. Calvarium and scalp: Skull is intact with no soft tissue edema or swelling. CT/CT head wo con* [id number] IMPRESSION: 1. No acute intracranial hemorrhage or edema. 2. Severe small vessel ischemic disease, stable. 3. Diffuse complete opacification of the mastoid air cells with progression on the RIGHT since 09/07/2021. Bilateral mastoiditis.
--- NOTE | 2021-10-12 11:03 | XR_ITS ---
WS: [id number] Exam: XR chest 1V portable [id number] Date/Time of Exam: 10/12/2021 11:08 AM Reason For Exam: chest pain Comparison 09/07/2021. The lungs are clear and fully expanded. Mild cardiac enlargement unchanged. Coronary artery calcifica tions. No pleural effusions. The mediastinum and osseous thorax are unremarkable. XR/XR chest 1V portable [id number] IMPRESSION: 1. Mild cardiac enlargement and coronary artery atherosclerosis. 2. No acute cardiopulmonary finding.
[2021-10-12 11:20] LABS: Glucose Point of Care 144 mg/dL (70-110)
[2021-10-12 11:26] LABS: Basophils % 0.6 %; Eosinophils # 0.2 10^3/uL (0.0-0.8); Eosinophils % 2.4 %; Hematocrit 36.4 % (37.0-47.0); Hemoglobin 12.1 g/dL (11.5-15.3); Lymphocytes # 1.2 10^3/uL (0.8-4.8); Lymphocytes % 16.6 %; Mean Corpuscular HGB Conc 33.2 g/dL (30.0-36.0); Mean Corpuscular Hemoglobin 28.8 pg (28.0-34.0); Mean Corpuscular Volume 86.7 fl (81-99); Mean Platelet Volume 10.2 fL (7.4-10.4); Monocytes # 0.4 10^3/uL (0.2-0.9); Monocytes % 5.6 %; Neutrophils # 5.18 10^3/uL (1.8-7.7); Neutrophils % 74.2 %; Nucleated Red Blood Cells % 0 %; Platelet Count 328 10^3/cmm (130-400); Red Cell Distribution Width 14.3 % (12.1-15.1)
--- NOTE | 2021-10-12 11:28 | ED_ITS ---
HPI - General Adult General: Chief complaint: Altered Mental Status Stated complaint: AMS Time Seen by Provider: 10/12/21 11:02 History of Present Illness: Patient is a 71-year-old female with a history of asthma, type 2 diabetes, DKA, hypertension, hyperlipidemia presenting to the em ergency room with concerns for altered mental status. Per EMS, patient had a glucose initially 60 that improved with D10 drip. On arrival, patient is AAOx3 but appears to be somnolent but arousible to sternal rub. She is intermittently answering questions. History is limited by cognitive status. Patient reports left-sided rib pain. No other focal complaints of pain at this time. Rest of history limited. Onset: unknown Duration:ongoing Location:home Severity: moderate Review of Systems General: Reports: ROS unobtainable due to medical condition and ROS unobtainable due to mental status PFS ED PFSH: Medical History Arthritis Asthma Atherosclerosis of coronary artery Bilateral conjunctivitis Diarrhea DKA (diabetic ketoacidosis) DM type 2 (diabetes mellitus, type 2) Gastroenteritis HTN (hypertension) Hyperlipidemia Hypertension associated with diabetes Hypertensive urgency Hypokalemia Left otitis media with spontaneous rupture of eardrum Nausea & vomiting Otitis externa Pulmonary embolism Small bowel mass Surgical History Hx of cholecystectomy Family History Other Cancer Stroke Social History Smoking and tobacco status: never smoked Alcohol intake: never Lives independently: Yes Household members: none Marital status: / Physical Exam HENMT: COMMON NORMALS: atraumatic HEAD & SCALP: atraumatic MOUTH: moist mucous membranes not abnormal Eye: COMMON NORMALS: EOMs intact bilaterally and conjunctivae normal CONJUNCTIVA: Yes conjunctivae normal Neck/C-Spine: COMMON NORMALS: full ROM and supple Resp: COMMON NORMALS: normal respiratory effort and clear to auscultation bilaterally AUSCULTATION: clear to auscultation bilaterally Cardio: COMMON NORMALS: regular rate RATE: regular rate GI: COMMON NORMALS: Soft to palpation and non-tender PALPATION: Yes Soft to palpation OTHER: No focal TTP. NO guarding rebound, guarding, rigidity. No CVA tenderness to percussion. Neg Vega/Neg McBurney's point tenderness, no suprabupic tenderness to palpation. Extremity: COMMON NORMALS: full ROM Neuro: SENSORIUM/ORIENTATION: Yes somnolent OTHER: + Somnolent but intermittently answering question. Patient is arousable to lana rnal rub. Patient is AAOx3, moving all extremities, cranial nerves II through XII grossly intact Psych: OTHER: + Unable to assess due to altered mental status Course Vital Signs: Vital signs: Vital Signs Temperature 97.8 F 10/13/21 11:43 Pulse Rate 89 10/13/21 11:43 Respiratory Rate 16 10/13/21 11:43 Blood Pressure 150/72 10/13/21 11:43 Pulse Oximetry 94 10/13/21 11:43 Oxygen Delivery Me thod 10/13/21 08:00 Oxygen Flow Rate 2 10/13/21 08:00 MDM - General Adult Medical Decision Making 71-year-old female with a history of asthma, DKA, type 2 diabetes, hypertension hyperlipidemia presenting to the emergency room for concerns of altered mental status and hypoglycemia. On arrival, patient had a glucose of 144. Patient is hemodynamically stable somnolent but arousable to sternal rub. Patient is GCS [address] scan showed worsening b/l mastoiditis. Patient does not have any meningeal signs. Patient is afebrile, with normal white count, do not suspect meningitis. Rest of labs largely within normal limit. UA consistent with early UTI. She received ceftriaxone clindamycin for coverage for mastoiditis and UTI. Patient did not have any signs of otitis media or mastoid area tenderness. Discussed case with Dr. Lloyd does not think that this is a surgical mastoiditis. Patient will be admitted to the hospital for antibiotics. Disposition: admission Lab Data : 10/13/21 04:30 10/13/21 04:30 Radiology Impressions Chest X-Ray 10/12/21 11:03 IMPRESSION: 1. Mild cardiac enlargement and coronary artery atherosclerosis. 2. No acute cardiopulmonary finding. Head CT 10/12/21 11:03 IMPRESSION: 1. No acute intracranial hemorrhage or edema. 2. Severe small vessel ischemic disease, stable. 3. Diffuse complete opacification of the mastoid air cells with progression on the RIGHT since 09/07/2021. Bilateral mastoiditis. Laboratory Results WBC 7.0 10^3/uL (4.0-10.0) 10/12/21 11:00 RBC 4.20 10^6/uL (4.1-5.3) 10/12/21 11:00 Hgb 12.1 g/dL (11.5-15.3) 10/12/21 11:00 Hct 36.4 % (37.0-47.0) L 10/12/21 11:00 MCV 86.7 fl (81-99) 10/12/21 11:00 MCH 28.8 pg (28.0-34.0) 10/12/21 11:00 MCHC 33.2 g/dL (30.0-36.0) 10/12/21 11:00 RDW 14.3 % (12.1-15.1) 10/12/21 11:00 Plt Count 328 10^3/cmm (130-400) 10/12/21 11:00 MPV 10.2 fL (7.4-10.4) 10/12/21 11:00 Neut % (Auto) 74.2 % 10/12/21 11:00 Lymph % (Auto) 16.6 % 10/12/21 11:00 [place] % (Auto) 5.6 % 10/12/21 11:00 Eos % (Auto) 2.4 % 10/12/21 11:00 Baso % (Auto) 0.6 % 10/12/21 11:00 Neut # (Auto) 5.18 10^3/uL (1.8-7.7) 10/12/21 11:00 Lymph # (Auto) 1.2 10^3/uL (0.8-4.8) 10/12/21 11:00 [place] # (Auto) 0.4 10^3/uL (0.2-0.9) 10/12/21 11:00 Eos # (Auto) 0.2 10^3/uL (0.0-0.8) 10/12/21 11:00 Baso # (Auto) 0.0 10^3/uL (0.0-0.1) 10/12/21 11:00 Nucleated RBC % (auto) 0 % 10/12/21 11:00 Nucleated RBCs # 0.0 /100WBC 10/12/21 11:00 Sodium 135 mmol/L (136-145) L 10/12/21 11:00 Potassium 3.4 mmol/L (3.5-5.1) L 10/12/21 11:00 Chloride 103 mmol/L (98-107) 10/12/21 11:00 Carbon Dioxide 23 mmol/L (22-29) 10/12/21 11:00 Anion Gap 12.4 (5-19) 10/12/21 11:00 BUN 13 mg/dL (8-23) 10/12/21 11:00 Creatinine 0.8 mg/dL (0.5-0.9) 10/12/21 11:00 GFR Calculation 70.9 mL/min (90-130) L 10/12/21 11:00 Glucose 117 mg/dL (65-115) H 10/12/21 11:00 POC Glucose 144 mg/dL (70-110) H 10/12/21 11:16 Estimat Average Glucose 186 10/12/21 11:00 Hemoglobin A1c 8.1 % (4.0-6.0) H 10/12/21 11:00 Calculated Osmolality 281 mOsm/kg (285-295) L 10/12/21 11:00 Calcium 11.5 mg/dL (8.5-10.5) H 10/12/21 11:00 Total Bilirubin 0.5 mg/dL (0.15-1.2) 10/12/21 11:00 AST 43 U/L (0-32) H 10/12/21 11:00 ALT 44 U/L (0-33) H 10/12/21 11:00 Alkaline Phosphatase 108 IU/L (35-105) H 10/12/21 11:00 Ammonia 16 umol/L (11-51) 10/12/21 15:30 Troponin T Baseline 8 ng/L (0-10) 10/12/21 11:00 Troponin T 120 Minute 8.17 ng/L (0-10) 10/12/21 14:10 Delta Troponin T 0.17 ABS# (0-10) 10/12/21 14:10 NT-Pro-B Natriuret Pep 455 pg/mL (0-125) H 10/12/21 11:00 Total Protein 5.3 g/dL (6.6-8.7) L 10/12/21 11:00 Albumin 3.1 g/dL (3.5-5.2) L 10/12/21 11:00 Globulin 2.2 g/dL (1.3-4.6) 10/12/21 11:00 Lipase 20 U/L (13-60) 10/12/21 11:00 Procalcitonin 0.05 ng/mL (0-0.5) 10/12/21 11:00 TSH 10.14 uIU/mL (0.27-4.20) H 10/12/21 11:00 Free T4 1.30 ng/dL (0.82-1.77) 10/12/21 11:00 Prolactin 8.38 ng/mL (4.8-23.3) 10/12/21 14:10 Urine Color Yellow (Yellow) 10/12/21 14:58 Urine Appearance Clear (CLEAR) 10/12/21 14:58 Urine pH 6.5 (5-7) 10/12/21 14:58 Ur Specific [place] 1.010 (1.005-1.030) 10/12/21 14:58 Urine Protein Neg (Negative) 10/12/21 14:58 Urine Glucose (UA) Norm (Normal) 10/12/21 14:58 Urine Ketones Negative (Negative) 10/12/21 14:58 Urine Blood Neg (Negative) 10/12/21 14:58 Urine Nitrate Negative (Negative) 10/12/21 14:58 Urine Bilirubin Neg (Negative) 10/12/21 14:58 Urine Urobilinogen Norm mg/dL (Negative) 10/12/21 14:58 Ur Leukocyte Esterase 1+ (Negative) H 10/12/21 14:58 Urine RBC 0-4 /hpf (0-2) H 10/12/21 14:58 Urine WBC 15-25 /hpf (0-5) H 10/12/21 14:58 Ur Squamous Epith Cells 10-15 /hpf (0-5) H 10/12/21 14:58 Amorphous Sediment Not Reportable 10/12/21 14:58 Urine Bacteria 1+ /hpf (NONE) H 10/12/21 14:58 Salicylates < 0.3 mg/dL (3-10) L 10/12/21 11:00 Acetaminophen 5.2 ug/mL (10-30) L 10/12/21 11:00 Serum Ketones Negative (Negative) 10/12/21 11:00 SARS-CoV-2 Ag (Rapid) Negative (Negative) 10/12/21 12:00 Imaging Data Other Imaging: Radiologist's impression: [facility] [address] [place] [address] CT Scan Report Signed Patient: Lady López Unit #: [id number] : 1950 Age/Sex: 71 / F ADM Date: 10/12/21 Loc: ER Room/Bed: Attending Dr: Ordering Provider/Ordering MD: Columba Daly MD Date of Service: 10/12/21 Procedure(s): CT head wo con* [id number] Accession Number(s): [id number] Report Number: [id number] WS: [id number] CT HEAD NONCONTRAST HISTORY: ams TECHNIQUE: Contiguous axial imaging performed through the brain in 2.5 mm imaging. Bone and soft tissue windows. Sagittal and coronal reformats reviewed.? All CT scans at [facility] use at least one of these dose optimization techniques: automated exposure control; mA and/or kV adjustment per patient size (includes targeted exams where dose is matched to clinical indication); or iterative reconstruction. DLP: 1031.38 mGy.cm COMPARISON: 10/12/2021 No acute intracranial hemorrhage, midline shift or mass effect. Mild atrophy with severe bilateral small vessel ischemic changes. There is low attenuation throughout the white matter as seen on prior examinations. Ventricles:? Very mildly prominent ventricles. No midline shift. No mass effect. No inferior displacement of cerebellar tonsils. Paranasal sinuses: Mucoperiosteal thickening throughout the LEFT maxillary sinus. Mastoid air cells: Extensive opacification of both mastoid air cells. Progressive opacification of the RIGHT mastoid air cells since the prior study. Calvarium and scalp: Skull is intact with no soft tissue edema or swelling. CT/CT head wo con* [id number] IMPRESSION: ? 1.? No acute intracranial hemorrhage or edema. 2.? Severe small vessel ischemic disease, stable. 3.? Diffuse complete opacification of the mastoid air cells with progression on the RIGHT since 09/07/2021. Bilateral mastoiditis. ? Dictated By: Pat Zafar DO Signed By: Pat Zafar DO Signed Date/Time: 10/12/21 1310 DD/ [address] [id number] XRay Report Signed Patient: Lady López Unit #: [id number] : 1950 Age/Sex: 71 / F ADM Date: 10/12/21 Loc: ER Room/Bed: Attending Dr: Ordering Provider/Ordering MD: Columba Daly MD Date of Service: 10/12/21 Procedure(s): XR chest 1V portable [id number] Accession Number(s): [id number] Report Number: [id number] WS: [email or web address] Exam: XR chest 1V portable [id number] Date/Time of Exam: 10/12/2021 11:08 AM Reason For Exam: chest pain Comparison 09/07/2021. The lungs are clear and fully expanded. Mild cardiac enlargement unchanged. Coronary artery calcifications. No pleural effusions. The mediastinum and osseous thorax are unremarkable. XR/XR chest 1V portable [id number] IMPRESSION: 1. Mild cardiac enlargement and coronary artery atherosclerosis. 2. No acute cardiopulmonary finding. ? Dictated By: Lincoln Huynh DO Signed By: Lincoln Huynh DO Signed Date/Time: 10/12/21 1124 DD/ 1120 Discharge Plan Discharge Patient Disposition: Admitted As Inpatient Admit Provider: Rose Alcazar Clinical Impression: Altered mental status, Acute UTI, Mastoiditis Condition: Stable Coding Level of Care Code ED De Icer for Chg Fwd Exam Comprehensive
[2021-10-12 12:00] LABS: Troponin(5th) Baseline 8 ng/L (0-10)
--- NOTE | 2021-10-12 12:00 | ECG_ITS ---
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 Measurements Intervals [place] Rate: 60 P: 44 CT: 187 QRS: -24 QRSD: 82 T: 69 QT: 442 QTc: 444 Interpretive Statements SINUS RHYTHM INFERIOR MYOCARDIAL INFARCTION , PROBABLY OLD [40+ ms Q WAVE AND/OR ST/T ABNORMALITY IN II/aVF] ANTEROSEPTAL MYOCARDIAL INFARCTION , PROBABLY OLD [40+ ms Q WAVE IN V1-V4] Compared to ECG 09/07/2021 20:49:08 Left-axis deviation no longer present Myocardial infarct finding still present Electronically Signed On 10-12-2021 16:30:10 CDT by Bassem Beauchamp M.D. [id number]
[2021-10-12 12:10] LABS: Acetaminophen 5.2 ug/mL (10-30); Alanine Aminotransferase 44 U/L (0-33); Albumin Level 3.1 g/dL (3.5-5.2); Alkaline Phosphatase 108 IU/L (35-105); Anion Gap 12.4 (5-19); Aspartate Amino Transferase 43 U/L (0-32); Blood Urea Nitrogen 13 mg/dL (8-23); Calcium 11.5 mg/dL (8.5-10.5); Carbon Dioxide 23 mmol/L (22-29); Chloride 103 mmol/L (98-107); Globulin 2.2 g/dL (1.3-4.6); Glomerular Filtration Rate 70.9 mL/min (90-130); Glucose 117 mg/dL (65-115); Lipase 20 U/L (13-60); Osmolality Calculated 281 mOsm/kg (285-295); Potassium 3.4 mmol/L (3.5-5.1); Sodium 135 mmol/L (136-145); Thyroid Stimulating Hormone 10.14 uIU/mL (0.27-4.20); Total Bilirubin 0.5 mg/dL (0.15-1.2); Total Protein 5.3 g/dL (6.6-8.7)
[2021-10-12 12:11] LABS: Salicylate < 0.3 mg/dL (3-10)
[2021-10-12 12:32] LABS: Ketone (Acetest) Serum Negative (Negative)
[2021-10-12 12:41] LABS: NT Pro B Type Natriuretic Pept 455 pg/mL (0-125)
[2021-10-12 12:47] LABS: SARS Covid-2 Antigen Negative (Negative)
[2021-10-12 15:09] LABS: Troponin 5 2HR 8.17 ng/L (0-10)
[2021-10-12 15:13] LABS: Troponin 5 2HR Delta 0.17 ABS# (0-10)
[2021-10-12 15:32] LABS: Add Urine Microscopic? YES; Bilirubin Urine Neg (Negative); Blood Urine Neg (Negative); Glucose Urine UA Norm (Normal); Ketones Urine Negative (Negative); Leukocyte Esterase Urine 1+ (Negative); Nitrate Urine Negative (Negative); Protein Urine Neg (Negative); RBC Urine 0-4 /hpf (0-2); Urine Appearance Clear (CLEAR); Urine Color Yellow (Yellow); Urobilinogen Urine Norm (Negative); WBC Urine 15-25 /hpf (0-5); pH Urine 6.5 (5-7)
[2021-10-12 15:33] LABS: Add Urine Culture? Yes; Bacteria Urine 1+ /hpf
[2021-10-12 15:53] LABS: Ammonia 16 umol/L (11-51)
[2021-10-12] MEDS: clindamycin 600 MG/50 ML PREMIX 100 MG IV (16:08)
[2021-10-12] MEDS: cefTRIAXone 1,000 MG in sodium chloride 0.9% (plus) 50 ML 100 MG IV (16:52)
--- NOTE | 2021-10-12 17:19 | ECG_ITS ---
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 Measurements Intervals [place] Rate: 63 P: 40 MT: 171 QRS: -21 QRSD: 90 T: 75 QT: 425 QTc: 437 Interpretive Statements SINUS RHYTHM LOW QRS VOLTAGE IN PRECORDIAL LEADS [QRS DEFLECTION < 1.0 mV IN CHEST LEADS] ANTEROSEPTAL MYOCARDIAL INFARCTION , OF INDETERMINATE AGE [40+ ms Q WAVE IN V1-V4] Compared to ECG 10/12/2021 12:00:19 Low QRS voltage now present Myocardial infarct finding still present Electronically Signed On 10-13-2021 21:33:09 CDT by Mckinley Stark M.D. [id number]
--- NOTE | 2021-10-12 18:13 | PM.HP ---
Providers/Chief Complaint Admitting Physician: Rose Alcazar MD Primary Care Provider: Matthew Geller DO Chief Complaint: AMS History of Present Illness Lady López is a 71 year old female who presented to hospital from her, apartment with chief complaint of confusion. Patient is stating that she lives alone, there is a male who helps her on daily basis, she took her Lantus last night, this morning she was feeling lethargic and fatigued, she has not noticed any fever, confusion, shortness of breath, chest pain, neck pain or headache but because of fatigue and lethargy as soon as she opened the door of her apartment for her made she rested on the recliner. Made checked on her and she was very lethargic and confused she called 911. Her sugar was in low 60s. As soon as she was given dextrose ampules her mentation started getting better. In the ER she was diagnosed with UTI and hypokalemia. No significant lab abnormality, head CT unremarkable At the time my interview she is awake and alert and able to tell me above HPI Noted for urinary frequency she is asking for food No strokelike features Normal TSH Serum ketones negative COVID antigen negative Review of Systems Const: Reports: chills, body aches and fatigue Eyes: Denies: change in vision ENMT: Denies: throat pain Card: Denies: chest pain Resp: Denies: dyspnea GI: Denies: abdominal pain : Denies: flank pain Musc: Denies: neck pain Skin/Breast: Denies: rash Neuro: Denies: headache(s) Psych: Denies: anxiety Endo: Denies: polyuria Ervin/Lymph: Denies: easy bruising All/Imm: Denies: urticaria Medications/Allergies Home Medications Medication Instructions Recorded Confirmed Last Taken Type amlodipine 10 mg tablet 10 mg PO QAM 02/22/21 10/12/21 03/21/21 08:00 History fenofibrate nanocrystallized 145 145 mg PO BEDTIME 02/22/21 10/12/21 03/21/21 21:00 History mg tablet insulin glargine 100 unit/mL 40 unit SUBCUT BEDTIME 02/22/21 10/12/21 03/21/21 21:00 History subcutaneous solution (Lantus U-100 Insulin) losartan 100 mg tablet 100 mg PO QAM 02/22/21 10/12/21 03/21/21 08:00 History metformin 1,000 mg tablet 1,000 mg PO BID 02/22/21 10/12/21 03/21/21 21:00 History atorvastatin 40 mg tablet 80 mg PO BEDTIME #60 tabs 06/09/21 10/12/21 Unknown Rx clopidogrel 75 mg tablet 75 mg PO DAILY #90 tabs 06/09/21 10/12/21 Unknown Rx nitroglycerin 0.4 mg sublingual 0.4 mg sublingual Q5M PRN Chest 06/09/21 10/12/21 Unknown Rx tablet Pain #25 tabs carvedilol 12.5 mg tablet 12.5 mg PO BID 09/08/21 10/12/21 Unknown History pantoprazole 40 mg tablet,delayed 40 mg PO DAILY 09/08/21 10/12/21 Unknown History release furosemide 40 mg tablet (Lasix) 40 mg PO DAILY PRN Edema #60 tabs 09/09/21 10/12/21 Unknown Rx lidocaine 5 % topical patch 1 patch topical [id number] #14 ea 09/09/21 10/12/21 Unknown Rx potassium chloride 20 mEq 10 meq PO DAILY #30 tabs 09/09/21 10/12/21 Unknown Rx tablet,extended release blood sugar diagnostic (ReliOn #300 ea 10/05/21 10/12/21 Unknown Rx Prime Test Strips) Test Strips #1 ea 10/12/21 10/12/21 Unknown Rx bismuth subsalicylate 262 mg/15 mL 524 mg PO Q1H PRN Gastrointestinal 10/12/21 10/12/21 Unknown History oral suspension (Pepto-Bismol) Spasms Or Cramping cholecalciferol (vitamin D3) 25 25 mcg PO DAILY 10/12/21 10/12/21 Unknown History mcg (1,000 unit) tablet (Vitamin D3) loperamide 1 mg/7.5 mL oral liquid 2 mg PO Q4H PRN Diarrhea 10/12/21 10/12/21 Unknown History (Imodium A-D) methyl salicylate-menthol 10 %-3 % 1 spray topical Q4H PRN Pain 10/12/21 10/12/21 Unknown History topical spray (Salonpas Pain Relieving Jet) olopatadine 0.1 % eye drops 1 drp ophthalmic (eye) BID 10/12/21 10/12/21 Unknown History pyridoxine HCl 20 mg-mary and 1 teresa PO Q4H 10/12/21 10/12/21 Unknown History spearmint 25 mg lozenges (Stomach Settle) tramadol 50 mg tablet 50 mg PO TID PRN Pain 10/12/21 10/12/21 Unknown History Allergies Allergy/AdvReac Type Severity Reaction Status Date / Time codeine Allergy Unknown ADR-Diarrhe Verified 10/12/21 13:45 a tetanus and diphtheria Allergy Unknown Unknown Verified 10/12/21 13:45 toxoids PFSH Acute PFSH: Medical History Arthritis Asthma Atherosclerosis of coronary artery Bilateral conjunctivitis Diarrhea DKA (diabetic ketoacidosis) DM type 2 (diabetes mellitus, type 2) Gastroenteritis HTN (hypertension) Hyperlipidemia Hypertension associated with diabetes Hypertensive urgency Hypokalemia Left otitis media with spontaneous rupture of eardrum Nausea & vomiting Otitis externa Pulmonary embolism Small bowel mass Surgical History Hx of cholecystectomy Family History Other Cancer Stroke Social History Smoking and tobacco status: never smoked Alcohol intake: never Lives independently: Yes Household members: none Marital status: / Vitals/I&O/Wt Last Vital Signs Pulse 69 10/12/21 17:00 Resp 16 10/12/21 11:05 BP 182/80 10/12/21 17:00 Pulse Ox 93 10/12/21 17:00 O2 Del Method 10/12/21 17:00 O2 Flow Rate 2 10/12/21 11:29 10/12/21 10/12/21 10/12/21 06:59 14:59 22:59 Intake Total 100 / 100 Balance 100 / 100 Physical Exam Narrative: Very pleasant cooperative no audible stridor or wheezing Satting well on room air No signs of edema Abdomen nontender Nonfocal neuro exam Looks dehydrated No signs of edema of legs S1, S2 No audible stridor or wheezing Saturating well on room air Data : 10/12/21 11:00 10/12/21 11:00 A&P Assessment and plan (1) Altered mental status: Status: Acute (2) Acute UTI: Status: Acute (3) Mastoiditis: Status: Acute (4) Diabetes: Status: Acute Plan Metabolic encephalopathy Related to UTI and hyperglycemia Ceftriaxone IV fluids Looks dehydrated Check A1c level Decrease the dose of Lantus Full code Continue antihypertensive regimen No signs of stroke No sign of pneumonia COVID-19 negative Ketones negative Consistent carb diet DVT prophylaxis on board Plan to discharge her tomorrow if clinically stable PT evaluation Attestations Medical Necessity Statement*: Discharge within 48 hours for metabolic encephalopathy management and evaluation Time Spent in Patient Care: 40 Coding Level of Care Code Acute Circulation Worker for Sasha Cox Diagnoses Altered mental status R41.82 Acute UTI N39.0 Mastoiditis H70.90 Diabetes E11.9
[2021-10-12 19:11] LABS: Procalcitonin 0.05 ng/mL (0-0.5)
[2021-10-12 19:43] LABS: Prolactin 8.38 ng/mL (4.8-23.3)
[2021-10-12 21:11] LABS: Glucose Point of Care 316 mg/dL (70-110)
[2021-10-12 22:06] LABS: Estmated Average Glucose 186; Hemoglobin A1C 8.1 % (4.0-6.0)
[2021-10-12] MEDS: piperacillin-tazobactam 3.375 GM in sodium chloride 0.9% (plus) 50 ML IV (22:13)
[2021-10-12] MEDS: heparin 5,000 unit/mL INJ 1 mL 5000 UNIT SUBCUT (22:13)
[2021-10-12] MEDS: insulin glargine 100 units/1 mL 10 UNIT SUBCUT (23:03)
[2021-10-13 03:25] VITALS: BP 156/71; PULSE 64; RESP 16; TEMP 37; O2SAT 99
[2021-10-13 04:57] LABS: Basophils % 0.4 %; Eosinophils # 0.2 10^3/uL (0.0-0.8); Eosinophils % 2.6 %; Hemoglobin 10.5 g/dL (11.5-15.3); Lymphocytes # 1.4 10^3/uL (0.8-4.8); Lymphocytes % 19.5 %; Mean Corpuscular HGB Conc 32.8 g/dL (30.0-36.0); Mean Corpuscular Hemoglobin 28.5 pg (28.0-34.0); Mean Platelet Volume 10.1 fL (7.4-10.4); Monocytes # 0.5 10^3/uL (0.2-0.9); Monocytes % 6.9 %; Neutrophils # 5.08 10^3/uL (1.8-7.7); Neutrophils % 70.2 %; Nucleated Red Blood Cells % 0 %; Platelet Count 303 10^3/cmm (130-400); Red Blood Count 3.68 10^6/uL (4.1-5.3); Red Cell Distribution Width 14.5 % (12.1-15.1); White Blood Count 7.2 10^3/uL (4.0-10.0)
[2021-10-13 05:20] LABS: Anion Gap 12.3 (5-19); Blood Urea Nitrogen 11 mg/dL (8-23); Calcium 9.1 mg/dL (8.5-10.5); Carbon Dioxide 28 mmol/L (22-29); Chloride 102 mmol/L (98-107); Creatinine Clr Calc Pharmacy 72.8123; Glomerular Filtration Rate 70.9 mL/min (90-130); Glucose 210 mg/dL (65-115); Magnesium 1.6 mg/dL (1.7-2.3); Osmolality Calculated 292 mOsm/kg (285-295); Potassium 4.3 mmol/L (3.5-5.1); Sodium 138 mmol/L (136-145)
[2021-10-13 05:55] VITALS: BP 156/71
[2021-10-13] MEDS: losartan 50 mg Tablet 100 MG PO (05:55)
[2021-10-13] MEDS: amlodipine 10 mg Tablet PO (05:55)
[2021-10-13] MEDS: piperacillin-tazobactam 3.375 GM in sodium chloride 0.9% (plus) 50 ML IV (05:56)
[2021-10-13 06:00] VITALS: PULSE 68
[2021-10-13] MEDS: acetaminophen 500 mg Tablet PO (06:07)
[2021-10-13 06:37] LABS: Glucose Point of Care 219 mg/dL (70-110)
[2021-10-13 08:00] VITALS: BP 150/72; PULSE 60; PULSE 89; RESP 16; TEMP 36.6; O2SAT 100; O2SAT 94
--- NOTE | 2021-10-13 08:28 | PM.DCS ---
Discharge Providers Date of Admission: 10/12/21 15:33 Date of Discharge: October 13, 2021 Attending Provider at Admission: Rose Alcazar MD Attending Provider at Discharge: Rose Alcazar MD Primary Care Provider: Matthew Geller DO Diagnoses at Discharge Discharge Diagnosis (1) Altered mental status: Status: Acute (2) Acute UTI: Status: Acute (3) Mastoiditis: Status: Acute (4) Diabetes: Status: Acute Reason for Visit Reason for Visit: AMS Hospital Course Hospital Course 71-year female who lives in an apartment, gets help from a maid, presented to the hospital when her maid noticed confusion and lethargy. Patient is stating that she was very lethargic in the morning she did not eat her breakfast however she took Lantus night before. She did not notice any chest pain, shortness of breath diarrhea or fever. She has been experiencing urinary frequency. In the ER she was diagnosed with metabolic encephalopathy related to UTI which improved. Patient is back to baseline. No signs of stroke. Urine cultures are pending. She remained afebrile has blood sugar is around 180-200. Hemoglobin A1c 8.1. I decreased her Lantus at the time of admission. I have counseled patient to hydrate herself, keep taking Lantus, I will give her 5 days of levofloxacin. Physical Exam Narrative: Pleasant cooperative euvolemic Abdomen soft Saturating well on room air No audible stridor or wheezing EOMI, PERRLA Nonfocal neuro exam NIH 0 Abdomen soft Discharge Data Studies Completed and Pending Completed Studies During Hospitalization Category Date Time Status CT head wo con* [id number] Urgent Cat Scan 10/12/21 11:03 Completed XR chest 1V portable [id number] Stat Exams 10/12/21 11:03 Completed Radiology Impressions Chest X-Ray 10/12/21 11:03 IMPRESSION: 1. Mild cardiac enlargement and coronary artery atherosclerosis. 2. No acute cardiopulmonary finding. Head CT 10/12/21 11:03 IMPRESSION: 1. No acute intracranial hemorrhage or edema. 2. Severe small vessel ischemic disease, stable. 3. Diffuse complete opacification of the mastoid air cells with progression on the RIGHT since 09/07/2021. Bilateral mastoiditis. Laboratory Results WBC 7.2 10^3/uL (4.0-10.0) 10/13/21 04:30 RBC 3.68 10^6/uL (4.1-5.3) L 10/13/21 04:30 Hgb 10.5 g/dL (11.5-15.3) L 10/13/21 04:30 Hct 32.0 % (37.0-47.0) L 10/13/21 04:30 MCV 87.0 fl (81-99) 10/13/21 04:30 MCH 28.5 pg (28.0-34.0) 10/13/21 04:30 MCHC 32.8 g/dL (30.0-36.0) 10/13/21 04:30 RDW 14.5 % (12.1-15.1) 10/13/21 04:30 Plt Count 303 10^3/cmm (130-400) 10/13/21 04:30 MPV 10.1 fL (7.4-10.4) 10/13/21 04:30 Neut % (Auto) 70.2 % 10/13/21 04:30 Lymph % (Auto) 19.5 % 10/13/21 04:30 [place] % (Auto) 6.9 % 10/13/21 04:30 Eos % (Auto) 2.6 % 10/13/21 04:30 Baso % (Auto) 0.4 % 10/13/21 04:30 Neut # (Auto) 5.08 10^3/uL (1.8-7.7) 10/13/21 04:30 Lymph # (Auto) 1.4 10^3/uL (0.8-4.8) 10/13/21 04:30 [place] # (Auto) 0.5 10^3/uL (0.2-0.9) 10/13/21 04:30 Eos # (Auto) 0.2 10^3/uL (0.0-0.8) 10/13/21 04:30 Baso # (Auto) 0.0 10^3/uL (0.0-0.1) 10/13/21 04:30 Nucleated RBC % (auto) 0 % 10/13/21 04:30 Nucleated RBCs # 0.0 /100WBC 10/13/21 04:30 Sodium 138 mmol/L (136-145) 10/13/21 04:30 Potassium 4.3 mmol/L (3.5-5.1) 10/13/21 04:30 Chloride 102 mmol/L (98-107) 10/13/21 04:30 Carbon Dioxide 28 mmol/L (22-29) 10/13/21 04:30 Anion Gap 12.3 (5-19) 10/13/21 04:30 BUN 11 mg/dL (8-23) 10/13/21 04:30 Creatinine 0.8 mg/dL (0.5-0.9) 10/13/21 04:30 GFR Calculation 70.9 mL/min (90-130) L 10/13/21 04:30 Glucose 210 mg/dL (65-115) H 10/13/21 04:30 POC Glucose 219 mg/dL (70-110) H 10/13/21 06:31 Estimat Average Glucose 186 10/12/21 11:00 Hemoglobin A1c 8.1 % (4.0-6.0) H 10/12/21 11:00 Calculated Osmolality 292 mOsm/kg (285-295) 10/13/21 04:30 Calcium 9.1 mg/dL (8.5-10.5) 10/13/21 04:30 Magnesium 1.6 mg/dL (1.7-2.3) L 10/13/21 04:30 Total Bilirubin 0.5 mg/dL (0.15-1.2) 10/12/21 11:00 AST 43 U/L (0-32) H 10/12/21 11:00 ALT 44 U/L (0-33) H 10/12/21 11:00 Alkaline Phosphatase 108 IU/L (35-105) H 10/12/21 11:00 Ammonia 16 umol/L (11-51) 10/12/21 15:30 Troponin T Baseline 8 ng/L (0-10) 10/12/21 11:00 Troponin T 120 Minute 8.17 ng/L (0-10) 10/12/21 14:10 Delta Troponin T 0.17 ABS# (0-10) 10/12/21 14:10 C-Reactive Protein 3.0 mg/L (0.0-4.9) 10/13/21 04:30 NT-Pro-B Natriuret Pep 455 pg/mL (0-125) H 10/12/21 11:00 Total Protein 5.3 g/dL (6.6-8.7) L 10/12/21 11:00 Albumin 3.1 g/dL (3.5-5.2) L 10/12/21 11:00 Globulin 2.2 g/dL (1.3-4.6) 10/12/21 11:00 Lipase 20 U/L (13-60) 10/12/21 11:00 Procalcitonin 0.05 ng/mL (0-0.5) 10/12/21 11:00 TSH 10.14 uIU/mL (0.27-4.20) H 10/12/21 11:00 Free T4 1.30 ng/dL (0.82-1.77) 10/12/21 11:00 Prolactin 8.38 ng/mL (4.8-23.3) 10/12/21 14:10 Urine Color Yellow (Yellow) 10/12/21 14:58 Urine Appearance Clear (CLEAR) 10/12/21 14:58 Urine pH 6.5 (5-7) 10/12/21 14:58 Ur Specific [place] 1.010 (1.005-1.030) 10/12/21 14:58 Urine Protein Neg (Negative) 10/12/21 14:58 Urine Glucose (UA) Norm (Normal) 10/12/21 14:58 Urine Ketones Negative (Negative) 10/12/21 14:58 Urine Blood Neg (Negative) 10/12/21 14:58 Urine Nitrate Negative (Negative) 10/12/21 14:58 Urine Bilirubin Neg (Negative) 10/12/21 14:58 Urine Urobilinogen Norm mg/dL (Negative) 10/12/21 14:58 Ur Leukocyte Esterase 1+ (Negative) H 10/12/21 14:58 Urine RBC 0-4 /hpf (0-2) H 10/12/21 14:58 Urine WBC 15-25 /hpf (0-5) H 10/12/21 14:58 Ur Squamous Epith Cells 10-15 /hpf (0-5) H 10/12/21 14:58 Amorphous Sediment Not Reportable 10/12/21 14:58 Urine Bacteria 1+ /hpf (NONE) H 10/12/21 14:58 Salicylates < 0.3 mg/dL (3-10) L 10/12/21 11:00 Acetaminophen 5.2 ug/mL (10-30) L 10/12/21 11:00 Serum Ketones Negative (Negative) 10/12/21 11:00 SARS-CoV-2 Ag (Rapid) Negative (Negative) 10/12/21 12:00 Vitals Last Vital Signs Temp 97.8 F 10/13/21 08:00 Pulse 60 10/13/21 08:00 Resp 16 10/13/21 08:00 BP 150/72 10/13/21 08:00 Pulse Ox 100 10/13/21 08:00 O2 Del Method 10/13/21 08:00 O2 Flow Rate 3 10/13/21 03:25 Discharge Plan Discharge Patient Disposition: Home Condition: Stable Prescriptions: New levofloxacin 750 mg tablet 750 mg PO DAILY 7 Days Qty: 7 0RF Continued (DME) ReliOn Prime Test Strips Strip See Rx Instructions .Route Qty: 300 3RF Rx Instructions: As directed with Relion meter TID 90 day supply (DME) Test Strips , meter, lancets See Rx Instructions .Route .MEDSUPPLY Qty: 1 0RF Rx Instructions: As directed, check sugars daily fasting, and occasionally one hour post meal instead of fasting. insulin glargine [Lantus U-100 Insulin] 100 unit/mL solution 40 unit SUBCUT BEDTIME amlodipine 10 mg tablet 10 mg PO QAM metformin 1,000 mg tablet 1,000 mg PO BID Hold Instructions: Resume on 06/11/21. Hold on 06/09 and 06/10. losartan 100 mg tablet 100 mg PO QAM fenofibrate nanocrystallized 145 mg tablet 145 mg PO BEDTIME clopidogrel 75 mg Tablet 75 mg PO DAILY Qty: 90 4RF atorvastatin 40 mg Tablet 80 mg PO BEDTIME Qty: 60 4RF nitroglycerin 0.4 mg Tablet, Sublingual 0.4 mg sublingual Q5M PRN (Reason: Chest Pain) Qty: 25 6RF tramadol 50 mg Tablet 50 mg PO TID PRN (Reason: Pain) Pepto-Bismol 262 mg/15 mL Suspension 524 mg PO Q1H PRN (Reason: Gastrointestinal Spasms Or Cramping) Rx Instructions: do not exceed 8 doses in a 24 hour period olopatadine 0.1 % Drops 1 drp OPHTHALMIC (EYE) BID Rx Instructions: separate doses by at least 6-8 hours Imodium A-D 1 mg/7.5 mL Liquid 2 mg PO Q4H PRN (Reason: Diarrhea) Rx Instructions: administer after each loose stool until symptoms controlled; do not exceed 8 mg per 24 hrs Vitamin D3 25 mcg (1,000 unit) Tablet 25 mcg PO DAILY Salonpas Pain Relieving Jet 10-3 % Aerosol,[place] 1 spray TOPICAL Q4H PRN (Reason: Pain) Stomach Settle 20-25 mg Lozenge 1 teresa PO Q4H pantoprazole 40 mg Tablet,Delayed Release (Dr/Ec) 40 mg PO DAILY carvedilol 12.5 mg tablet 12.5 mg PO BID potassium chloride 20 mEq tablet extended release 10 meq PO DAILY Qty: 30 3RF lidocaine 5 % Adhesive Patch,Medicated 1 patch topical [id number] Qty: 14 0RF Held furosemide [Lasix] 40 mg tablet 40 mg PO DAILY PRN (Reason: Edema) Qty: 60 3RF Hold Instructions: Resume on 10/17/21. Discharge Orders: Discharge Order (Routine); Ordered 10/13/21 Ordered By: Rose Alcazar Referrals: Matthew Geller DO [Primary Care Provider] - 10/25/21 8:00 am Patient Instructions: Opioid Safety Discharge Attestations Time Spent in Discharge Care*: less than 30 min Status at Discharge: Cognitive status at discharge: mildly impaired cognition, Behavioral status at discharge: cooperative, Quality Metrics Clinical Quality Measures [ No reported AMI, CVA or VTE this stay] Coding Level of Care Code Acute Chg FW DC note Diagnoses Altered mental status R41.82 Acute UTI N39.0 Mastoiditis H70.90 Diabetes E11.9
[2021-10-13] MEDS: pantoprazole DR 40 mg Tablet PO (08:29)
[2021-10-13] MEDS: heparin 5,000 unit/mL INJ 1 mL 5000 UNIT SUBCUT (08:29)
[2021-10-13] MEDS: carvedilol 12.5 mg Tablet PO (08:29)
[2021-10-13] MEDS: insulin lispro 100 unit/1 mL SUBCUT (08:35)
--- NOTE | 2021-10-13 09:41 | PC.CHAP ---
Pastoral Care Encounter/Spiritual Assessment Type of Contact [] Declined conference services manager visit [] Patient/Family/Request visit [] Outpatient visit [] Follow-up visit [] Physician referral [] Code/Alert [x] Routine visit [] Staff referral [] Actively dying [] Patient sleeping [] Family support [] [] Out of room [] Palliative care [] [x] Receiving care in room [] Pre-surgical visit [] Trauma [] Long length of stay [] ICU visit [] Other: Relational/Emotional Strength [x] Patient feels connected with others/family/visitors/staff [x] Distress [] Loneliness/isolation [] Abandonment Spirituality of Patient [x] Person of Tanja [] Attends Scientology of their Tanja [] Believes in Prayer [] Reads Bible or Hinduism materials [] There are Spiritual issues to be addressed Hydraulics Engineer Interventions [x] Prayer [x] Active listening [x] Non-anxious presence [x] Spiritual/emotional support [] Crisis/trauma care [x] Spiritual counseling [] Bereavement support [] Provided bereavement packet [] Provided Bible/devotional materials [] Provided toy/stuffed animal, coloring book to patient or family member [] Provided Communion [] Anointing/[place] [] Salvation [x] Completed spiritual assessment [] Other: Impact on Illness or Injury [] Angry [] Fearful [x] Anxious [] Often cries [] Exhaustion [x] Unable to work [] Unable to attend catholic [] Unable to walk/stand [] Unable to read [] Unable to drive [] Unable to eat/drink [] Unable to sleep [] Unable to be with family [] Patient intubated [] Other: Summary feeling better breathing problems will be going home at some point Time spent with patient 10 mins
--- NOTE | 2021-10-13 10:04 | PC.NURSE ---
Pt declines needing portable oxygen for discharge. Made aware of potential side effects. Pt states she only wheres it PRN at her house.
[2021-10-13 10:53] LABS: Glucose Point of Care 272 mg/dL (70-110)
[2021-10-13 11:43] VITALS: BP 150/72; PULSE 89; RESP 16; TEMP 36.6; O2SAT 94
--- NOTE | 2021-10-13 11:44 | PC.NURSE ---
patient discharged, patient requested to be took down stairs to wait for cab, patient took via wheelchair.
== END 2021-10-13 11:43 | disposition home or self-care (01) ==
LOC: ER 15:33 → MEDSURG 17:03
PROVIDERS: Admitting Provider Internal Medicine; Emergency Provider Emergency Medicine; PCP Family Medicine; Visit Provider Internal Medicine
DX: R41.82 Altered mental status, unspecified (principal); N39.0 Urinary tract infection, site not specified; H70.90 Unspecified mastoiditis, unspecified ear; E11.9 Type 2 diabetes mellitus without complications; M19.90 Unspecified osteoarthritis, unspecified site; I10 Essential (primary) hypertension; E78.5 Hyperlipidemia, unspecified; Z86.711 Personal history of pulmonary embolism; G93.41 Metabolic encephalopathy
CPT/HCPCS: 36415; 36416; 70450; 71045; 80048; 80053; 80307; 81001; 82009; 82140; 82962; 83036; 83690; 83735; 83880; 84145; 84146; 84439; 84443; 84484; 85025; 86140; 87086; 87426; 93005; 96365; 96367; 96372; 99285; G0378; J0696; J1644; J1815; J2543; J3490

== ENCOUNTER → 2021-11-08 13:39 | Outpatient (BNVA) | payer MEDICAID, SELFPAY | PROVIDERS: PCP Family Medicine; Visit Provider Family Medicine | DX: N39.0 Urinary tract infection, site not specified (principal) | CPT/HCPCS: 81000; 87086 ==

== ENCOUNTER 2021-11-14 09:02 | Emergency (ER) | payer MEDICAID, SELFPAY ==
[2021-11-14 09:05] VITALS: BP 136/56; PULSE 61; RESP 18; TEMP 36.6; O2SAT 98; BMI 32.9
[2021-11-14 09:09] VITALS: BP 155/80; PULSE 57; O2SAT 98
[2021-11-14 09:21] LABS: Glucose Point of Care 118 mg/dL (70-110)
--- NOTE | 2021-11-14 09:22 | ED_ITS ---
HPI - General Adult General: Chief complaint: General Medical Stated complaint: HYPOGLYCEMIA Time Seen by Provider: 11/14/21 09:05 Source: patient Mode of arrival: EMS History of Present Illness: 71. Denies any recent medication changes or increase in her insulin.-year-old female presents emergency room with complaints of low blood sugar generally not feeling well. She was seen 6 days ago for a UTI. Culture in the shot chart shows multiple bacteria greater than 100,000 but no specific bacteria identified. Lab report recommends repeat culture. Patient has had problems with his UTIs in the past. In August of this year she had a UTI that showed E. coli susceptible to all antibiotics tested. She is also complaining of bilateral flank pain. She was hypoglycemic when they first arrived with a glucose in the 50s after treatment in the field her glucose on arrival was in the 120s she was awake and answering questions she still somewhat lethargic her repeat blood glucose in the department is 118. She denies any vomiting or diarrhea she does have some mild abdominal discomfort but no sharp pain she denies any difficulty breathing Onset (ago): hour(s) Severity: mild Relieving factors: eating and medication Exacerbating factors: none Associated symptoms: Reports confusion; Deny chest pain, cough, diaphoresis, decreased appetite, dyspnea, fevers/chills, headache(s), malaise, nausea, rash, palpitations, seizures, short of breath, syncope, vomiting or weakness Treatments prior to arrival: none Review of Systems Const: Denies: fever(s), chills, malaise or diaphoresis ENMT: Denies: throat pain, ear or mastoid pain, nasal discharge or nasal congestion Card: Denies: chest pain, palpitations or syncope Resp: Denies: dyspnea GI: Denies: nausea or vomiting : Denies: flank pain, difficulty voiding, dysuria, urinary frequency or urinary urgency Skin/Breast: Denies: rash Neuro: Reports: confusion; Denies: headache(s) PFSH ED PFSH: Medical History Acute UTI Altered mental status Arthritis Asthma Atherosclerosis of coronary artery Bilateral conjunctivitis Diabetes Diarrhea DKA (diabetic ketoacidosis) DM type 2 (diabetes mellitus, type 2) Gastroenteritis HTN (hypertension) Hyperlipidemia Hypertension associated with diabetes Hypertensive urgency Hypokalemia Left otitis media with spontaneous rupture of eardrum Mastoiditis Nausea & vomiting Otitis externa Pulmonary embolism Small bowel mass Surgical History Hx of cholecystectomy Family History Other Cancer Stroke Social History Smoking and tobacco status: never smoked Alcohol intake: never Lives independently: Yes Household members: none Marital status: / Physical Exam Const: COMMON NORMALS: no acute distress GENERAL APPEARANCE: cooperative and comfortable ORIENTATION/CONSCIOUSNESS: Yes awake, Yes oriented to person, Yes oriented to place and Yes oriented to time HENMT: COMMON NORMALS: normocephalic, atraumatic and hearing grossly normal bilaterally HEAD & SCALP: normocephalic and atraumatic Eye: COMMON NORMALS: Equal, round and reactive pupils present, EOMs intact bilaterally, conjunctivae normal and no scleral icterus CONJUNCTIVA: Yes conjunctivae normal PUPIL: Yes Equal, round and reactive pupils present Resp: COMMON NORMALS: normal respiratory effort, No retractions, No use of accessory muscles and clear to auscultation bilaterally AUSCULTATION: clear to auscultation bilaterally Cardio: COMMON NORMALS: regular rate, regular rhythm and No murmurs present (Cardio) RATE: regular rate RHYTHM: regular rhythm GI: COMMON NORMALS: Soft to palpation and No hepatosplenomegaly present AUSCULTATION: Yes normoactive bowel sounds PALPATION: Yes Soft to palpation, No Tenderness to palpation present (GI), No Guarding due to palpation present (GI) and Yes No hepatosplenomegaly present Extremity: COMMON NORMALS: normal to inspection, capillary refill normal, no clubbing, cyanosis or edema, no calf tenderness and no pedal edema Neuro: SENSORIUM/ORIENTATION: Yes oriented to person, Yes oriented to place and Yes oriented to time Skin: COMMON NORMALS: no rashes or lesions noted GENERAL SKIN EXAM: no rashes or lesions noted Course Vital Signs: Vital signs: Vital Signs Temperature 97.9 F 11/14/21 09:05 Pulse Rate 65 11/14/21 11:45 Respiratory Rate 18 11/14/21 09:05 Blood Pressure 146/60 11/14/21 11:45 Pulse Oximetry 99 11/14/21 11:45 Oxygen Delivery Me thod 11/14/21 09:09 MDM - General Adult Medical Decision Making Patient improved by the time of arrival glucose of been administered. Patient was monitored glucose rechecked and she was allowed to eat she is able to maintain her blood sugars independently without further supplementation discharge patient home encouraged her to monitor blood sugars closely and follow-up with primary care doctor in the next few days. Medical Records I reviewed the patient's medical records. Lab Data I reviewed the patient's lab results. : 11/14/21 09:20 11/14/21 09:20 Laboratory Results WBC 7.1 10^3/uL (4.0-10.0) 11/14/21 09:20 RBC 3.94 10^6/uL (4.1-5.3) L 11/14/21 09:20 Hgb 11.7 g/dL (11.5-15.3) 11/14/21 09:20 Hct 34.6 % (37.0-47.0) L 11/14/21 09:20 MCV 87.8 fl (81-99) 11/14/21 09:20 MCH 29.7 pg (28.0-34.0) 11/14/21 09:20 MCHC 33.8 g/dL (30.0-36.0) 11/14/21 09:20 RDW 14.0 % (12.1-15.1) 11/14/21 09:20 Plt Count 308 10^3/cmm (130-400) 11/14/21 09:20 MPV 10.3 fL (7.4-10.4) 11/14/21 09:20 Neut % (Auto) 77.5 % 11/14/21 09:20 Lymph % (Auto) 13.6 % 11/14/21 09:20 [place] % (Auto) 5.5 % 11/14/21 09:20 Eos % (Auto) 2.4 % 11/14/21 09:20 Baso % (Auto) 0.7 % 11/14/21 09:20 Neut # (Auto) 5.53 10^3/uL (1.8-7.7) 11/14/21 09:20 Lymph # (Auto) 1.0 10^3/uL (0.8-4.8) 11/14/21 09:20 [place] # (Auto) 0.4 10^3/uL (0.2-0.9) 11/14/21 09:20 Eos # (Auto) 0.2 10^3/uL (0.0-0.8) 11/14/21 09:20 Baso # (Auto) 0.1 10^3/uL (0.0-0.1) 11/14/21 09:20 Nucleated RBC % (auto) 0 % 11/14/21 09:20 Nucleated RBCs # 0.0 /100WBC 11/14/21 09:20 Sodium 144 mmol/L (136-145) 11/14/21 09:20 Potassium 3.9 mmol/L (3.5-5.1) 11/14/21 09:20 Chloride 102 mmol/L (98-107) 11/14/21 09:20 Carbon Dioxide 27 mmol/L (22-29) 11/14/21 09:20 Anion Gap 18.9 (5-19) 11/14/21 09:20 BUN 16 mg/dL (8-23) 11/14/21 09:20 Creatinine 0.8 mg/dL (0.5-0.9) 11/14/21 09:20 GFR Calculation 70.9 mL/min (90-130) L 11/14/21 09:20 Glucose 108 mg/dL (65-115) 11/14/21 09:20 POC Glucose 159 mg/dL (70-110) H 11/14/21 10:49 Calculated Osmolality 300 mOsm/kg (285-295) H 11/14/21 09:20 Lactic Acid 1.5 mmol/L (0.5-2.2) 11/14/21 09:20 Calcium 9.1 mg/dL (8.5-10.5) 11/14/21 09:20 Total Bilirubin 0.4 mg/dL (0.15-1.2) 11/14/21 09:20 AST 15 U/L (0-32) 11/14/21 09:20 ALT 8 U/L (0-33) 11/14/21 09:20 Alkaline Phosphatase 36 U/L (35-105) 11/14/21 09:20 Total Protein 6.8 g/dL (6.6-8.7) 11/14/21 09:20 Albumin 3.9 g/dL (3.5-5.2) 11/14/21 09:20 Globulin 2.9 g/dL (1.3-4.6) 11/14/21 09:20 Lipase 26 U/L (13-60) 11/14/21 09:20 Urine Color Yellow (Yellow) 11/14/21 09:38 Urine Appearance Clear (CLEAR) 11/14/21 09:38 Urine pH 5 (5-7) 11/14/21 09:38 Ur Specific [place] 1.015 (1.005-1.030) 11/14/21 09:38 Urine Protein Trace (Negative) 11/14/21 09:38 Urine Glucose (UA) Norm (Normal) 11/14/21 09:38 Urine Ketones Negative (Negative) 11/14/21 09:38 Urine Blood Neg (Negative) 11/14/21 09:38 Urine Nitrate Negative (Negative) 11/14/21 09:38 Urine Bilirubin Neg (Negative) 11/14/21 09:38 Urine Urobilinogen Norm mg/dL (Negative) 11/14/21 09:38 Ur Leukocyte Esterase Trace (Negative) H 11/14/21 09:38 Urine RBC None /hpf (0-2) 11/14/21 09:38 Urine WBC Rare /hpf (0-5) 11/14/21 09:38 Ur Squamous Epith Cells Rare /hpf (0-5) 11/14/21 09:38 Amorphous Sediment Not Reportable 11/14/21 09:38 Urine Bacteria Trace /hpf (NONE) 11/14/21 09:38 Urine Mucus Trace /hpf 11/14/21 09:38 Discharge Plan Discharge Patient Disposition: Home Clinical Impression: Hypoglycemia Condition: Stable Prescriptions: No Action levofloxacin 250 mg tablet 250 mg PO DAILY Qty: 5 0RF Rx Instructions: for uti (DME) ReliOn Prime Test Strips Strip See Rx Instructions .Route Qty: 300 3RF Rx Instructions: As directed with Relion meter TID 90 day supply (DME) Test Strips , meter, lancets See Rx Instructions .Route .MEDSUPPLY Qty: 1 0RF Rx Instructions: As directed, check sugars daily fasting, and occasionally one hour post meal instead of fasting. (DME) insulin syringe-needle U-100 [BD Insulin Syringe Safety-[place]] 1 mL 29 gauge x 1/2 syringe See Rx Instructions .Route Qty: 300 3RF Rx Instructions: Use TID to inject insulin 90 day supply furosemide [Lasix] 40 mg tablet 40 mg PO DAILY PRN (Reason: Edema) Qty: 60 3RF Hold Instructions: Resume on 10/17/21. insulin glargine [Lantus U-100 Insulin] 100 unit/mL solution 40 unit SUBCUT BEDTIME amlodipine 10 mg tablet 10 mg PO QAM metformin 1,000 mg tablet 1,000 mg PO BID Hold Instructions: Resume on 06/11/21. Hold on 06/09 and 06/10. losartan 100 mg tablet 100 mg PO QAM fenofibrate nanocrystallized 145 mg tablet 145 mg PO BEDTIME clopidogrel 75 mg Tablet 75 mg PO DAILY Qty: 90 4RF atorvastatin 40 mg Tablet 80 mg PO BEDTIME Qty: 60 4RF nitroglycerin 0.4 mg Tablet, Sublingual 0.4 mg sublingual Q5M PRN (Reason: Chest Pain) Qty: 25 6RF tramadol 50 mg Tablet 50 mg PO TID PRN (Reason: Pain) Pepto-Bismol 262 mg/15 mL Suspension 524 mg PO Q1H PRN (Reason: Gastrointestinal Spasms Or Cramping) Rx Instructions: do not exceed 8 doses in a 24 hour period olopatadine 0.1 % Drops 1 drp OPHTHALMIC (EYE) BID Rx Instructions: separate doses by at least 6-8 hours Imodium A-D 1 mg/7.5 mL Liquid 2 mg PO Q4H PRN (Reason: Diarrhea) Rx Instructions: administer after each loose stool until symptoms controlled; do not exceed 8 mg per 24 hrs Vitamin D3 25 mcg (1,000 unit) Tablet 25 mcg PO DAILY Salonpas Pain Relieving Jet 10-3 % Aerosol,[place] 1 spray TOPICAL Q4H PRN (Reason: Pain) Stomach Settle 20-25 mg Lozenge 1 teresa PO Q4H pantoprazole 40 mg Tablet,Delayed Release (Dr/Ec) 40 mg PO DAILY carvedilol 12.5 mg tablet 12.5 mg PO BID potassium chloride 20 mEq tablet extended release 10 meq PO DAILY Qty: 30 3RF lidocaine 5 % Adhesive Patch,Medicated 1 patch topical [id number] Qty: 14 0RF Discharge Orders: Discharge ED (Routine); Ordered 11/14/21 Ordered By: Raheem Sorensen Referrals: Matthew Geller, [Primary Care Provider] - Patient Instructions: Opioid Safety Activity Restrictions/Additional Instructions: Monitor blood sugars closely follow your usual regimen be sure to eat appropriate and normal meals. Follow-up with your primary care doctor within the next 3 to 4 days to review your blood sugar logs and make any appropriate adjustments. Coding Level of Care Code ED Cleaner Touch Up Worker for Sasha Cox
[2021-11-14 09:32] LABS: Basophils # 0.1 10^3/uL (0.0-0.1); Basophils % 0.7 %; Eosinophils # 0.2 10^3/uL (0.0-0.8); Eosinophils % 2.4 %; Hematocrit 34.6 % (37.0-47.0); Hemoglobin 11.7 g/dL (11.5-15.3); Lymphocytes % 13.6 %; Mean Corpuscular HGB Conc 33.8 g/dL (30.0-36.0); Mean Corpuscular Hemoglobin 29.7 pg (28.0-34.0); Mean Corpuscular Volume 87.8 fl (81-99); Mean Platelet Volume 10.3 fL (7.4-10.4); Monocytes # 0.4 10^3/uL (0.2-0.9); Monocytes % 5.5 %; Neutrophils # 5.53 10^3/uL (1.8-7.7); Neutrophils % 77.5 %; Nucleated Red Blood Cells % 0 %; Platelet Count 308 10^3/cmm (130-400); Red Blood Count 3.94 10^6/uL (4.1-5.3); White Blood Count 7.1 10^3/uL (4.0-10.0)
[2021-11-14 09:50] LABS: Alanine Aminotransferase 8 U/L (0-33); Albumin Level 3.9 g/dL (3.5-5.2); Alkaline Phosphatase 36 U/L (35-105); Aspartate Amino Transferase 15 U/L (0-32); Blood Urea Nitrogen 16 mg/dL (8-23); Calcium 9.1 mg/dL (8.5-10.5); Carbon Dioxide 27 mmol/L (22-29); Chloride 102 mmol/L (98-107); Globulin 2.9 g/dL (1.3-4.6); Glomerular Filtration Rate 70.9 mL/min (90-130); Glucose 108 mg/dL (65-115); Lactic Sepsis W/Reflex 1.5 mmol/L (0.5-2.2); Lipase 26 U/L (13-60); Osmolality Calculated 300 mOsm/kg (285-295); Sodium 144 mmol/L (136-145); Total Bilirubin 0.4 mg/dL (0.15-1.2); Total Protein 6.8 g/dL (6.6-8.7)
[2021-11-14 09:53] LABS: Anion Gap 18.9 (5-19); Potassium 3.9 mmol/L (3.5-5.1)
[2021-11-14] MEDS: cefTRIAXone 1,000 MG in sodium chloride 0.9% (plus) 50 ML 100 MG IV (09:54)
[2021-11-14] MEDS: sodium chloride 0.9% 1,000 ML 999 ML IV (09:54)
[2021-11-14 10:04] LABS: Specific Gravity, Urine 1.015 (1.005-1.030); Urine Appearance Clear (CLEAR); Urine Color Yellow (Yellow); pH Urine 5 (5-7)
[2021-11-14 10:05] LABS: Add Urine Culture? No; Add Urine Microscopic? YES; Bacteria Urine TRACE /hpf; Bilirubin Urine Neg (Negative); Blood Urine Neg (Negative); Glucose Urine UA Norm (Normal); Ketones Urine Negative (Negative); Leukocyte Esterase Urine Trace (Negative); Mucus Urine TRACE /hpf; Nitrate Urine Negative (Negative); Protein Urine Trace (Negative); Squamous Epithelial Cell Urine RARE /hpf (0-5); Urobilinogen Urine Norm (Negative); WBC Urine RARE /hpf (0-5)
[2021-11-14 10:43] LABS: Glucose Point of Care 154 mg/dL (70-110)
[2021-11-14 10:52] LABS: Glucose Point of Care 159 mg/dL (70-110)
[2021-11-14 11:09] VITALS: BP 149/62; PULSE 61; O2SAT 95
[2021-11-14 11:45] VITALS: BP 146/60; PULSE 65; O2SAT 99
== END 2021-11-14 11:47 | disposition home or self-care (01) ==
PROVIDERS: Emergency Provider Family Medicine; PCP Family Medicine
DX: E11.649 Type 2 diabetes mellitus with hypoglycemia without coma (principal); Z79.84 Long term (current) use of oral hypoglycemic drugs; Z79.02 Long term (current) use of antithrombotics/antiplatelets; Z79.82 Long term (current) use of aspirin; Z79.4 Long term (current) use of insulin; I25.10 Atherosclerotic heart disease of native coronary artery without angina pectoris; E78.5 Hyperlipidemia, unspecified; I10 Essential (primary) hypertension
CPT/HCPCS: 36415; 36416; 80053; 81001; 82962; 83605; 83690; 85025; 87040; 96365; 99284; J0696; J7030

== ENCOUNTER → 2021-12-29 12:42 | Outpatient (BNVA) | payer MEDICAID, SELFPAY | PROVIDERS: PCP Family Medicine; Visit Provider Family Medicine | DX: E87.1 Hypo-osmolality and hyponatremia (principal); I50.9 Heart failure, unspecified; E11.59 Type 2 diabetes mellitus with other circulatory complications; I15.2 Hypertension secondary to endocrine disorders; Z23 Encounter for immunization | CPT/HCPCS: 80053; 80061; 82607; 83036 ==

== ENCOUNTER 2022-02-06 08:46 | Emergency (ER) | payer MEDICAID, SELFPAY ==
[2022-02-06 08:50] VITALS: BP 151/54; PULSE 64; RESP 18; TEMP 36.4; O2SAT 99
--- NOTE | 2022-02-06 08:52 | W.ED.CHESTPA ---
HPI - Chest Pain General: Chief Complaint: Chest Pain Stated Complaint: CHEST PAIN/ PALPITATIONS Time Seen by Provider: 02/06/22 08:47 Source: patient Mode of arrival: EMS History of Present Illness: 71-year-old female presents emergency room with complaint of chest pain that began while at rest. It is somewhat reproducible with palpation. She has a known history of coronary disease and she is diabetic and obese. She has not been having other episodes of pain prior to today she did get somewhat short of breath and nauseous with it no radiation of pain no vomiting. She states she previously has had coronary disease and has had stenting done several years ago no testing recently MD complaint: chest pain Pertinent past history: coronary artery disease Onset (ago): minute(s) Timing of current episode: episodic Prior episodes: No Onset: during rest Pain location: substernal Pain radiation: none Severity: moderate Quality: aching and heaviness Relieving factors: nothing Exacerbating factors: nothing Associated symptoms: Deny abdominal pain, diaphoresis, dyspnea, fever(s), leg edema, nausea, palpitations, sense of impending doom, syncope or vomiting Treatment prior to arrival: aspirin Review of Systems Const: Denies: fever(s), chills, fatigue, malaise or diaphoresis ENMT: Denies: throat pain, ear or mastoid pain, nasal discharge or nasal congestion Card: Reports: chest pain; Denies: palpitations, irregular heart rhythm, edema or syncope Resp: Denies: dyspnea GI: Denies: abdominal pain, nausea or vomiting : Denies: flank pain, difficulty voiding, dysuria, urinary frequency or urinary urgency Musc: Denies: neck pain or back pain Skin/Breast: Denies: rash or pruritus PFSH ED PFSH: Medical History Acute UTI Altered mental status Arthritis Asthma Atherosclerosis of coronary artery Bilateral conjunctivitis Diabetes Diarrhea DKA (diabetic ketoacidosis) DM type 2 (diabetes mellitus, type 2) Gastroenteritis HTN (hypertension) Hyperlipidemia Hypertension associated with diabetes Hypertensive urgency Hypokalemia Left otitis media with spontaneous rupture of eardrum Mastoiditis Nausea & vomiting Otitis externa Pulmonary embolism Small bowel mass Surgical History Hx of cholecystectomy Family History Other Cancer Stroke Social History Smoking and tobacco status: never smoked Alcohol intake: never Lives independently: Yes Household members: none Marital status: / Physical Exam Const: COMMON NORMALS: no acute distress GENERAL APPEARANCE: cooperative and comfortable ORIENTATION/CONSCIOUSNESS: Yes awake, Yes oriented to person, Yes oriented to place and Yes oriented to time HENMT: COMMON NORMALS: normocephalic, atraumatic and hearing grossly normal bilaterally HEAD & SCALP: normocephalic and atraumatic Resp: COMMON NORMALS: normal respiratory effort, No retractions, No use of accessory muscles and clear to auscultation bilaterally AUSCULTATION: clear to auscultation bilaterally Cardio: COMMON NORMALS: regular rate, regular rhythm and No murmurs present (Cardio) RATE: regular rate RHYTHM: regular rhythm GI: COMMON NORMALS: Soft to palpation and No hepatosplenomegaly present AUSCULTATION: Yes normoactive bowel sounds PALPATION: Yes Soft to palpation, No Tenderness to palpation present (GI), No Guarding due to palpation present (GI) and Yes No hepatosplenomegaly present Extremity: COMMON NORMALS: normal to inspection, capillary refill normal, no clubbing, cyanosis or edema, no calf tenderness and no pedal edema Neuro: SENSORIUM/ORIENTATION: Yes oriented to person, Yes oriented to place and Yes oriented to time Skin: COMMON NORMALS: no rashes or lesions noted GENERAL SKIN EXAM: no rashes or lesions noted Course Vital Signs: Vital signs: Vital Signs Temperature 97.6 F 02/06/22 08:50 Pulse Rate 64 02/06/22 08:50 Respiratory Rate 18 02/06/22 08:50 Blood Pressure 151/54 02/06/22 08:50 Pulse Oximetry 99 02/06/22 08:50 MDM - Chest Pain Medical Decision Making Labs imaging and EKG reviewed as found on the chart. No acute ST changes on EKG is troponin negative. Her pain is reproducible palpation and with deep inspiration blood pressure still elevated will start on isosorbide mononitrate 30 mg once daily set her up for an outpatient Lexiscan sestamibi stress test Medical Records I reviewed the patient's medical records. Lab Data 02/06/22 09:01 02/06/22 09:01 Radiology Impressions Chest X-Ray 02/06/22 08:57 IMPRESSION: Stable chest. No acute cardiopulmonary disease. Laboratory Results WBC 8.8 10^3/uL (4.0-10.0) 02/06/22 09:01 RBC 3.61 10^6/uL (4.1-5.3) L 02/06/22 09:01 Hgb 10.8 g/dL (11.5-15.3) L 02/06/22 09:01 Hct 32.6 % (37.0-47.0) L 02/06/22 09:01 MCV 90.3 fl (81-99) 02/06/22 09:01 MCH 29.9 pg (28.0-34.0) 02/06/22 09:01 MCHC 33.1 g/dL (30.0-36.0) 02/06/22 09:01 RDW 13.0 % (12.1-15.1) 02/06/22 09:01 Plt Count 316 10^3/cmm (130-400) 02/06/22 09:01 MPV 10.3 fL (7.4-10.4) 02/06/22 09:01 Neut % (Auto) 72.7 % 02/06/22 09:01 Lymph % (Auto) 17.7 % 02/06/22 09:01 [place] % (Auto) 6.1 % 02/06/22 09:01 Eos % (Auto) 2.6 % 02/06/22 09:01 Baso % (Auto) 0.6 % 02/06/22 09:01 Neut # (Auto) 6.42 10^3/uL (1.8-7.7) 02/06/22 09:01 Lymph # (Auto) 1.6 10^3/uL (0.8-4.8) 02/06/22 09:01 [place] # (Auto) 0.5 10^3/uL (0.2-0.9) 02/06/22 09:01 Eos # (Auto) 0.2 10^3/uL (0.0-0.8) 02/06/22 09:01 Baso # (Auto) 0.1 10^3/uL (0.0-0.1) 02/06/22 09:01 Nucleated RBC % (auto) 0 % 02/06/22 09:01 Nucleated RBCs # 0.0 /100WBC 02/06/22 09:01 Sodium 139 mmol/L (136-145) 02/06/22 09:01 Potassium 3.3 mmol/L (3.5-5.1) L 02/06/22 09:01 Chloride 98 mmol/L (98-107) 02/06/22 09:01 Carbon Dioxide 26 mmol/L (22-29) 02/06/22 09:01 Anion Gap 18.3 (5-19) 02/06/22 09:01 BUN 16 mg/dL (8-23) 02/06/22 09:01 Creatinine 0.8 mg/dL (0.5-0.9) 02/06/22 09:01 GFR Calculation 70.9 mL/min (90-130) L 02/06/22 09:01 Glucose 192 mg/dL (65-115) H 02/06/22 09:01 Calculated Osmolality 294 mOsm/kg (285-295) 02/06/22 09:01 Calcium 8.8 mg/dL (8.5-10.5) 02/06/22 09:01 Total Bilirubin 0.3 mg/dL (0.15-1.2) 02/06/22 09:01 AST 11 U/L (0-32) 02/06/22 09:01 ALT 9 U/L (0-33) 02/06/22 09:01 Alkaline Phosphatase 44 U/L (35-105) 02/06/22 09:01 Troponin T Baseline 13 ng/L (0-10) H 02/06/22 09:01 Troponin T 120 Minute 12.60 ng/L (0-10) H 02/06/22 11:05 Delta Troponin T -0.40 ABS# (0-10) L 02/06/22 11:05 Total Protein 6.5 g/dL (6.6-8.7) L 02/06/22 09:01 Albumin 3.4 g/dL (3.5-5.2) L 02/06/22 09:01 Globulin 3.1 g/dL (1.3-4.6) 02/06/22 09:01 Discharge Plan Discharge Patient Disposition: Home Clinical Impression: Atypical chest pain Condition: Stable Prescriptions: New isosorbide mononitrate 30 mg tablet extended release 24 hr 30 mg PO DAILY Qty: 30 0RF No Action metronidazole 500 mg tablet PO levofloxacin 250 mg tablet 250 mg PO DAILY Qty: 5 0RF Rx Instructions: for uti Ozempic 0.25 mg or 0.5 mg(2 mg/1.5 mL) pen injector 0.25 mg SUBCUT .weekly Qty: 1.5 1RF (DME) ReliOn Prime Test Strips Strip See Rx Instructions .Route Qty: 300 3RF Rx Instructions: As directed with Relion meter TID 90 day supply (DME) Test Strips , meter, lancets See Rx Instructions .Route .MEDSUPPLY Qty: 1 0RF Rx Instructions: As directed, check sugars daily fasting, and occasionally one hour post meal instead of fasting. (DME) insulin syringe-needle U-100 [BD Insulin Syringe Safety-Kasie] 1 mL 29 gauge x 1/2 syringe See Rx Instructions .Route Qty: 300 3RF Rx Instructions: Use TID to inject insulin 90 day supply furosemide [Lasix] 40 mg tablet 40 mg PO DAILY PRN (Reason: Edema) Qty: 60 3RF Hold Instructions: Resume on 10/17/21. carvedilol 12.5 mg tablet 12.5 mg PO BID Qty: 180 3RF insulin glargine [Lantus U-100 Insulin] 100 unit/mL solution 25 unit SUBCUT BEDTIME vitamin B complex [B Complex-Vitamin B12] Tablet 1 tab PO DAILY Qty: 90 3RF amlodipine 10 mg tablet See Rx Instructions .ROUTE .COMPLEX Qty: 30 11RF Dose Instruction: TAKE 1 TAB BY MOUTH DAILY FOR BLOOD PRESSURE Rx Instructions: TAKE 1 TAB BY MOUTH DAILY FOR BLOOD PRESSURE metformin 1,000 mg tablet 1,000 mg PO BID Hold Instructions: Resume on 06/11/21. Hold on 06/09 and 06/10. losartan 100 mg tablet 100 mg PO QAM fenofibrate nanocrystallized 145 mg tablet 145 mg PO BEDTIME clopidogrel 75 mg Tablet 75 mg PO DAILY Qty: 90 4RF atorvastatin 40 mg Tablet 80 mg PO BEDTIME Qty: 60 4RF nitroglycerin 0.4 mg Tablet, Sublingual 0.4 mg sublingual Q5M PRN (Reason: Chest Pain) Qty: 25 6RF tramadol 50 mg Tablet 50 mg PO TID PRN (Reason: Pain) Pepto-Bismol 262 mg/15 mL Suspension 524 mg PO Q1H PRN (Reason: Gastrointestinal Spasms Or Cramping) Rx Instructions: do not exceed 8 doses in a 24 hour period olopatadine 0.1 % Drops 1 drp OPHTHALMIC (EYE) BID Rx Instructions: separate doses by at least 6-8 hours Imodium A-D 1 mg/7.5 mL Liquid 2 mg PO Q4H PRN (Reason: Diarrhea) Rx Instructions: administer after each loose stool until symptoms controlled; do not exceed 8 mg per 24 hrs Vitamin D3 25 mcg (1,000 unit) Tablet 25 mcg PO DAILY Salonpas Pain Relieving Jet 10-3 % Aerosol,[place] 1 spray TOPICAL Q4H PRN (Reason: Pain) Stomach Settle 20-25 mg Lozenge 1 teresa PO Q4H pantoprazole 40 mg Tablet,Delayed Release (Dr/Ec) 40 mg PO DAILY potassium chloride 20 mEq tablet extended release 10 meq PO DAILY Qty: 30 3RF lidocaine 5 % Adhesive Patch,Medicated 1 patch topical [id number] Qty: 14 0RF Discharge Orders: Discharge ED (Routine); Ordered 02/06/22 Ordered By: Raheem Sorensen Referrals: Matthew Geller, [Primary Care Provider] - Discharge Diet: Usual diet Discharge Activity: Limit activity as instructed Patient Instructions: Opioid Safety, Pain Management Activity Restrictions/Additional Instructions: You are seen today for chest pain. Chest pain seem to have been reproducible deep inspiration and palpation across your chest your cardiac enzymes and EKG did not show anything acute. We will discharge you home and add isosorbide mononitrate 30 mg once daily Case management will set up an outpatient Lexiscan sestamibi stress test. Avoid strenuous activity return to the emergency room you have persistent pain Coding Level of Care Code ED Children[facility] Program Coordinator for Chg Fwd Exam Detailed
--- NOTE | 2022-02-06 08:57 | XR_ITS ---
WS: [id number] PORTABLE CHEST HISTORY: chest pain COMPARISON: 10/12/2021 Nodule in the central RIGHT lung and at the LEFT costophrenic angle are stable. No new mass or nodule . No pneumonia. No pleural effusion or pneumothorax. Cardiac size: Normal. Mediastinum/Aorta: Mild atherosclerosis aorta. No osseous abnormality seen. XR/XR chest 1V portable [id number] IMPRESSION: Stable chest. No acute cardiopulmonary disease.
--- NOTE | 2022-02-06 09:05 | ECG_ITS ---
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 Measurements Intervals [place] Rate: 62 P: 60 ID: [id number] QRS: -19 QRSD: 94 T: 91 QT: 444 QTc: 452 Interpretive Statements SINUS RHYTHM ANTEROSEPTAL MYOCARDIAL INFARCTION , PROBABLY OLD [40+ ms Q WAVE IN V1-V4] MODERATE T-WAVE ABNORMALITY, CONSIDER LATERAL ISCHEMIA [-0.1+ mV T-WAVE IN I/aVL/V5/V6] Compared to ECG 11/14/2021 10:03:46 T-wave abnormality now present Possible ischemia now present Left-axis deviation no longer present Myocardial infarct finding still present Electronically Signed On 02-06-2022 17:08:16 TEMPORARY OFFICE ASSISTANT by Bryan Posadas M.D. [id number]
--- NOTE | 2022-02-06 09:05 | PC.NURSE ---
PT PLACED ON CONTINUOUS SPO2, NIBP, AND CM.
[2022-02-06 09:14] LABS: Basophils # 0.1 10^3/uL (0.0-0.1); Basophils % 0.6 %; Eosinophils # 0.2 10^3/uL (0.0-0.8); Eosinophils % 2.6 %; Hematocrit 32.6 % (37.0-47.0); Hemoglobin 10.8 g/dL (11.5-15.3); Lymphocytes # 1.6 10^3/uL (0.8-4.8); Lymphocytes % 17.7 %; Mean Corpuscular HGB Conc 33.1 g/dL (30.0-36.0); Mean Corpuscular Hemoglobin 29.9 pg (28.0-34.0); Mean Corpuscular Volume 90.3 fl (81-99); Mean Platelet Volume 10.3 fL (7.4-10.4); Monocytes # 0.5 10^3/uL (0.2-0.9); Monocytes % 6.1 %; Neutrophils # 6.42 10^3/uL (1.8-7.7); Neutrophils % 72.7 %; Nucleated Red Blood Cells % 0 %; Platelet Count 316 10^3/cmm (130-400); Red Blood Count 3.61 10^6/uL (4.1-5.3); White Blood Count 8.8 10^3/uL (4.0-10.0)
[2022-02-06 09:32] LABS: Alanine Aminotransferase 9 U/L (0-33); Albumin Level 3.4 g/dL (3.5-5.2); Alkaline Phosphatase 44 U/L (35-105); Anion Gap 18.3 (5-19); Aspartate Amino Transferase 11 U/L (0-32); Blood Urea Nitrogen 16 mg/dL (8-23); Calcium 8.8 mg/dL (8.5-10.5); Carbon Dioxide 26 mmol/L (22-29); Chloride 98 mmol/L (98-107); Creatinine Clr Calc Pharmacy 72.8123; Globulin 3.1 g/dL (1.3-4.6); Glomerular Filtration Rate 70.9 mL/min (90-130); Glucose 192 mg/dL (65-115); Osmolality Calculated 294 mOsm/kg (285-295); Potassium 3.3 mmol/L (3.5-5.1); Sodium 139 mmol/L (136-145); Total Bilirubin 0.3 mg/dL (0.15-1.2); Total Protein 6.5 g/dL (6.6-8.7)
[2022-02-06 09:33] LABS: Troponin(5th) Baseline 13 ng/L (0-10)
--- NOTE | 2022-02-06 14:46 | DCPLANNER ---
Addendum entered by Gabi Moncada 05/19/22 07:30: This appointment was rescheduled Addendum entered by Gabi Moncada 03/28/22 13:30: Patient has an outpatient stress test scheduled for Tuesday, April 19, 2022 at 9:00. Centralized scheduling will call patient with appointment information. Original Note: brand protection manager had message to schedule an outpatient stress test for patient. brand protection manager faxed signed order to centralized scheduling, who will call patient with appointment information. brand protection manager also faxed patients primary care physician, Dr. Geller, notification that this test was ordered from the ER physician.
== END 2022-02-06 12:50 | disposition home or self-care (01) ==
PROVIDERS: Emergency Provider Family Medicine; PCP Family Medicine
DX: R07.89 Other chest pain (principal); Z79.84 Long term (current) use of oral hypoglycemic drugs; Z79.02 Long term (current) use of antithrombotics/antiplatelets; Z79.4 Long term (current) use of insulin; E11.9 Type 2 diabetes mellitus without complications; I25.10 Atherosclerotic heart disease of native coronary artery without angina pectoris; I10 Essential (primary) hypertension; E78.5 Hyperlipidemia, unspecified; Z86.711 Personal history of pulmonary embolism
CPT/HCPCS: 71045; 80053; 84484; 85025; 93005; 99285

== ENCOUNTER → 2022-03-21 13:59 | Outpatient (BNVA) | payer MEDICAID, SELFPAY | PROVIDERS: PCP Family Medicine; Visit Provider Family Medicine | DX: E87.1 Hypo-osmolality and hyponatremia (principal); E11.9 Type 2 diabetes mellitus without complications; E87.6 Hypokalemia; Z00.00 Encounter for general adult medical examination without abnormal findings; E16.2 Hypoglycemia, unspecified; E11.59 Type 2 diabetes mellitus with other circulatory complications; I15.2 Hypertension secondary to endocrine disorders | CPT/HCPCS: 80053 ==

== ENCOUNTER 2022-05-17 13:19 | Emergency (ER) | payer MEDICAID, SELFPAY ==
[2022-05-17] VITALS (7 sets, daily range): BP systolic 127–165; BP diastolic 60–74; PULSE 68–77; RESP 16–18; TEMP 36.6; O2SAT 94–100; BMI 33.3
--- NOTE | 2022-05-17 13:41 | ED_ITS ---
HPI - General Adult General: Chief complaint: General Medical Stated complaint: weakness Time Seen by Provider: 05/17/22 13:41 History of Present Illness: Ms. López is a 71-year-old lady with complex past medical history including hypertension, hyperlipidemia, diabetes, chronic hypoxic respiratory failure presenting to the emergency department for abdominal pain. She reports onset of symptoms approximately 10 AM while shopping. Denies specific provoking factor. Since that time symptoms have persisted with generalized abdominal discomfort. She notes worse with palpation and movement. Generalized malaise but no nausea, vomiting, change in baseline diarrhea, or urinary symptoms. No other specific changes in health, exacerbating, or alleviating factors identified. Onset (ago): hour(s) Location: abdomen Radiation: non-radiation Severity: moderate Quality: aching Pain Consistency: constant Relieving factors: none Exacerbating factors: movement Associated symptoms: Reports malaise; Deny chest pain, dyspnea, fevers/chills, short of breath or vomiting Review of Systems General: Reports: 10 or more systems reviewed and unremarkable except in HPI and below Const: Reports: malaise Card: Denies: chest pain Resp: Denies: dyspnea GI: Denies: vomiting PFS ED PFSH: Medical History Acute UTI Altered mental status Arthritis Asthma Atherosclerosis of coronary artery Bilateral conjunctivitis Diabetes Diarrhea DKA (diabetic ketoacidosis) DM type 2 (diabetes mellitus, type 2) Gastroenteritis HTN (hypertension) Hyperlipidemia Hypertension associated with diabetes Hypertensive urgency Hypokalemia Left otitis media with spontaneous rupture of eardrum Mastoiditis Nausea & vomiting Otitis externa Pulmonary embolism Small bowel mass Surgical History Hx of cholecystectomy Family History Other Cancer Stroke Social History Smoking and tobacco status: never smoked Alcohol intake: never Lives independently: Yes Household members: none Marital status: / Physical Exam Const: COMMON NORMALS: alert GENERAL APPEARANCE: cooperative and well developed HENMT: COMMON NORMALS: normocephalic and atraumatic HEAD & SCALP: normocephalic and atraumatic Eye: COMMON NORMALS: conjunctivae normal CONJUNCTIVA: Yes conjunctivae normal SCLERA: sclerae normal Neck/C-Spine: COMMON NORMALS: supple GENERAL: Yes trachea midline Resp: COMMON NORMALS: clear to auscultation bilaterally EFFORT & INSPECTION: Yes able to speak in complete sentences AUSCULTATION: clear to auscultation bilaterally Cardio: COMMON NORMALS: regular rate and regular rhythm RATE: regular rate RHYTHM: regular rhythm GI: COMMON NORMALS: Soft to palpation PALPATION: Yes Soft to palpation, Yes Tenderness to palpation present (GI), No Guarding due to palpation present (GI) and No Rigid due to palpation Extremity: GENERAL: Yes normal exam except as noted and No edema Neuro: COMMON NORMALS: moves all extremities SENSORIUM/ORIENTATION: Yes alert and No Orientation impaired Psych: COMMON NORMALS: mental status grossly normal and Normal thought process present THOUGHT PROCESS: Normal thought process present Course Vital Signs: Vital signs: Vital Signs Temperature 97.8 F 05/17/22 13:20 Pulse Rate 74 05/17/22 18:50 Respiratory Rate 16 05/17/22 17:19 Blood Pressure 154/66 05/17/22 18:50 Pulse Oximetry 99 05/17/22 18:50 Oxygen Delivery Me thod 05/17/22 18:50 Oxygen Flow Rate 2 05/17/22 18:50 MDM - General Adult Medical Decision Making 71-year-old lady presenting with abdominal pain and generalized weakness. Exam as above. Nonfocal. Abdominal tenderness without acute surgical abdomen. Labs with no leukocytosis, normocytic anemia similar to prior. Metabolic panel without acute derangement to explain symptoms. No UTI. CT demonstrates no acute finding to explain symptoms. Incidental findings dis cussed. During ED course patient received analgesia, antiemetic, GI cocktail and feels improved. She is able to tolerate p.o. intake. Most likely etiology of symptoms is unspecified abdominal pain with nausea and vomiting. The results of ED evaluation were discussed with the patient including pr escriptions and/or symptomatic cares (if applicable) including appropriate and responsible use, followup plan, and return precautions. The patient verbalized understanding and felt safe for discharge. Medical Records I reviewed the patient's medical records. Lab Data I reviewed the patient's lab results. 05/17/22 13:03 05/17/22 13:03 Radiology Impressions Abdomen/Pelvis CT 05/17/22 14:01 IMPRESSION: 1. No GI tract obstruction. 2. Normal appendix. 3. Prior cholecystectomy. 4. Fibroid uterus. Laboratory Results WBC 9.6 10^3/uL (4.0-10.0) 05/17/22 13:03 RBC 3.77 10^6/uL (4.1-5.3) L 05/17/22 13:03 Hgb 11.1 g/dL (11.5-15.3) L 05/17/22 13:03 Hct 32.8 % (37.0-47.0) L 05/17/22 13:03 MCV 87.0 fl (81-99) 05/17/22 13:03 MCH 29.4 pg (28.0-34.0) 05/17/22 13:03 MCHC 33.8 g/dL (30.0-36.0) 05/17/22 13:03 RDW 13.1 % (12.1-15.1) 05/17/22 13:03 Plt Count 315 10^3/cmm (130-400) 05/17/22 13:03 MPV 10.6 fL (7.4-10.4) H 05/17/22 13:03 Neut % (Auto) 79.0 % 05/17/22 13:03 Lymph % (Auto) 13.9 % 05/17/22 13:03 [place] % (Auto) 4.3 % 05/17/22 13:03 Eos % (Auto) 2.1 % 05/17/22 13:03 Baso % (Auto) 0.4 % 05/17/22 13:03 Neut # (Auto) 7.54 10^3/uL (1.8-7.7) 05/17/22 13:03 Lymph # (Auto) 1.3 10^3/uL (0.8-4.8) 05/17/22 13:03 [place] # (Auto) 0.4 10^3/uL (0.2-0.9) 05/17/22 13:03 Eos # (Auto) 0.2 10^3/uL (0.0-0.8) 05/17/22 13:03 Baso # (Auto) 0.0 10^3/uL (0.0-0.1) 05/17/22 13:03 Nucleated RBC % (auto) 0 % 05/17/22 13:03 Nucleated RBCs # 0.0 /100WBC 05/17/22 13:03 Sodium 139 mmol/L (136-145) 05/17/22 13:03 Potassium 3.7 mmol/L (3.5-5.1) 05/17/22 13:03 Chloride 98 mmol/L (98-107) 05/17/22 13:03 Carbon Dioxide 25 mmol/L (22-29) 05/17/22 13:03 Anion Gap 19.7 (5-19) H 05/17/22 13:03 BUN 24 mg/dL (8-23) H 05/17/22 13:03 Creatinine 0.9 mg/dL (0.5-0.9) 05/17/22 13:03 GFR Calculation 61.9 mL/min (90-130) L 05/17/22 13:03 Glucose 140 mg/dL (65-115) H 05/17/22 13:03 Calculated Osmolality 294 mOsm/kg (285-295) 05/17/22 13:03 Lactate 1.6 mmol/L (0.5-2.2) 05/17/22 14:33 Calcium 9.5 mg/dL (8.5-10.5) 05/17/22 13:03 Total Bilirubin 0.3 mg/dL (0.15-1.2) 05/17/22 13:03 AST 16 U/L (0-32) 05/17/22 13:03 ALT 10 U/L (0-33) 05/17/22 13:03 Alkaline Phosphatase 41 U/L (35-105) 05/17/22 13:03 Total Protein 7.1 g/dL (6.6-8.7) 05/17/22 13:03 Albumin 4.2 g/dL (3.5-5.2) 05/17/22 13:03 Globulin 2.9 g/dL (1.3-4.6) 05/17/22 13:03 Lipase 35 U/L (13-60) 05/17/22 13:03 Urine Color Light yellow (Yellow) 05/17/22 16:00 Urine Appearance Clear (CLEAR) 05/17/22 16:00 Urine pH 6.5 (5-7) 05/17/22 16:00 Ur Specific [place] 1.005 (1.005-1.030) 05/17/22 16:00 Urine Protein Neg (Negative) 05/17/22 16:00 Urine Glucose (UA) Norm (Normal) 05/17/22 16:00 Urine Ketones Negative (Negative) 05/17/22 16:00 Urine Blood Neg (Negative) 05/17/22 16:00 Urine Nitrate Negative (Negative) 05/17/22 16:00 Urine Bilirubin Neg (Negative) 05/17/22 16:00 Urine Urobilinogen Neg mg/dL (Negative) 05/17/22 16:00 Ur Leukocyte Esterase Negative (Negative) 05/17/22 16:00 Discharge Plan Discharge Patient Disposition: Home Clinical Impression: Nausea & vomiting, Abdominal pain Condition: Stable Prescriptions: New ondansetron 4 mg tablet,disintegrating 4 mg PO Q8H PRN (Reason: nausea and vomiting) Qty: 15 0RF No Action insulin glargine [Lantus U-100 Insulin] 100 unit/mL solution 25 unit SUBCUT BID Qty: 10 0RF Aspercreme (lidocaine HCl) 4 % liquid roll-on See Rx Instructions topical .COMPLEX Qty: 73 0RF Rx Instructions: apply to affected painful area of abdomen topically up to qid as needed (DME) ReliOn Prime Test Strips Strip See Rx Instructions .Route Qty: 300 3RF Rx Instructions: As directed with Relion meter TID 90 day supply (DME) insulin syringe-needle U-100 [BD Insulin Syringe Safety-Kasie] 1 mL 29 gauge x 1/2 syringe See Rx Instructions .Route Qty: 300 3RF Rx Instructions: Use TID to inject insulin 90 day supply furosemide [Lasix] 40 mg tablet 40 mg PO DAILY PRN (Reason: Edema) Qty: 60 3RF Hold Instructions: Resume on 10/17/21. (DME) OneTouch Ultra Test Strip See Rx Instructions .ROUTE .COMPLEX Qty: 100 11RF Dose Instruction: DIRECTED, CHECK SUGARS DAILY FASTING AND OCCASIONALLY ONE HOUR POST MEAL INSTEAD OF FASTING E11.9 Rx Instructions: DIRECTED, CHECK SUGARS DAILY FASTING AND OCCASIONALLY ONE HOUR POST MEAL INSTEAD OF FASTING E11.9 carvedilol 12.5 mg tablet 12.5 mg PO BID Qty: 180 3RF losartan 100 mg tablet 100 mg PO QAM Qty: 90 3RF pantoprazole 40 mg tablet,delayed release (DR/EC) 40 mg PO DAILY Qty: 90 3RF isosorbide mononitrate 30 mg tablet extended release 24 hr 30 mg PO DAILY Qty: 90 3RF tramadol 50 mg tablet 50 mg PO TID PRN (Reason: Pain) Qty: 90 5RF clopidogrel 75 mg tablet 75 mg PO DAILY Qty: 90 3RF metformin 1,000 mg tablet 1,000 mg PO BID Hold Instructions: Resume on 06/11/21. Hold on 06/09 and 06/10. nitroglycerin 0.4 mg Tablet, Sublingual 0.4 mg sublingual Q5M PRN (Reason: Chest Pain) Qty: 25 6RF bismuth subsalicylate [Pepto-Bismol] 262 mg/15 mL Suspension 524 mg PO Q1H PRN (Reason: Gastrointestinal Spasms Or Cramping) Rx Instructions: do not exceed 8 doses in a 24 hour period olopatadine 0.1 % Drops 1 drp OPHTHALMIC (EYE) BID PRN (Reason: unknown) Rx Instructions: separate doses by at least 6-8 hours loperamide [Imodium A-D] 1 mg/7.5 mL Liquid 2 mg PO Q4H PRN (Reason: Diarrhea) Rx Instructions: administer after each loose stool until symptoms controlled; do not exceed 8 mg per 24 hrs cholecalciferol (vitamin D3) [Vitamin D3] 25 mcg (1,000 unit) Tablet 25 mcg PO DAILY Salonpas Pain Relieving Jet 10-3 % Aerosol,[place] 1 spray TOPICAL Q4H PRN (Reason: Pain) lidocaine 5 % Adhesive Patch,Medicated 1 patch topical [id number] Qty: 14 0RF multivitamin Tablet 1 tab PO DAILY potassium chloride 10 mEq tablet extended release 10 meq PO DAILY atorvastatin 80 mg tablet 80 mg PO BEDTIME amlodipine 10 mg tablet 10 mg PO DAILY fenofibrate nanocrystallized 145 mg tablet 145 mg PO DAILY Discharge Orders: Discharge ED (Routine); Ordered 05/17/22 Ordered By: Deangelo Nelson Referrals: Matthew Geller DO [Primary Care Provider] - Discharge Diet: Advance as tolerated and Clear Liquid Discharge Activity: Increase activity as tolerated Patient Instructions: Acute Nausea and Vomiting (ED), Abdominal Pain (ED), Opioid Safety Activity Restrictions/Additional Instructions: Thank you for visiting the emergency department. You were seen and evaluated for generalized weakness with abdominal pain and nausea and vomiting. The exact cause of your symptoms is unclear though does not appear to need hospitalization at this time. Please follow-up with your primary care provider. Return to the emergency department for uncontrolled symptoms or anything else that you are concerned about and feel needs emergency department evaluation. Coding Level of Care Code ED Slicer Machine Operator for Sasha Cox
--- NOTE | 2022-05-17 13:45 | PC.NURSE ---
PT WAS PLACED ON 3L NC
[2022-05-17 13:58] LABS: Basophils % 0.4 %; Eosinophils # 0.2 10^3/uL (0.0-0.8); Eosinophils % 2.1 %; Hematocrit 32.8 % (37.0-47.0); Hemoglobin 11.1 g/dL (11.5-15.3); Lymphocytes # 1.3 10^3/uL (0.8-4.8); Lymphocytes % 13.9 %; Mean Corpuscular HGB Conc 33.8 g/dL (30.0-36.0); Mean Corpuscular Hemoglobin 29.4 pg (28.0-34.0); Mean Platelet Volume 10.6 fL (7.4-10.4); Monocytes # 0.4 10^3/uL (0.2-0.9); Monocytes % 4.3 %; Neutrophils # 7.54 10^3/uL (1.8-7.7); Nucleated Red Blood Cells % 0 %; Platelet Count 315 10^3/cmm (130-400); Red Blood Count 3.77 10^6/uL (4.1-5.3); Red Cell Distribution Width 13.1 % (12.1-15.1); White Blood Count 9.6 10^3/uL (4.0-10.0)
--- NOTE | 2022-05-17 14:01 | CT_ITS ---
WS: [id number] CT ABDOMEN AND PELVIS WITH CONTRAST HISTORY: generalized abd pain TECHNIQUE: Imaging performed of the abdomen and pelvis with IV contrast. Single phase imaging of the abdomen. Coronal and sagittal reformats are submitted. All CT scans at [facility] use at [address] one of these dose optimization techniques: automated exposure control; mA and/or kV adjustment per patient size (includes targeted exams where dose is matched to clinical indication); or iterative re construction. IV CONTRAST: Omnipaque 350; 100 mL IV. Oral contrast: No DLP: 965.80 mGy.cm COMPARISON: 03/22/2021 Lower thorax: Lung bases are clear. Heart is normal size. No hiatal hernia. Liver/biliary system: Normal size with no intrahepatic dilatation. Gallbladder: Status post cholecystectomy. Normal bile duct. Pancreas: Normal size pancreas and pancreatic duct. No adjacent inflammation. Spleen: Normal size spleen with several granulomata. Adrenal glands: Normal. Right kidney: Normal size RIGHT kidney. Cortical low-attenuation to small to characterize lesion. No obstruction. Left kidney: Normal. Aorta: Mild atherosclerosis with no aneurysm. Lymphadenopathy: None. Free fluid: None. GI tract: Negative stomach and small bowel. No obstruction. Normal appendix. Normal colon with no col itis. Abdominal wall: Unremarkable abdominal wall. No hernia. Pelvis: Well-distended urinary bladder. Uterus is slightly prominent and contains calcified fibroid o n the RIGHT. No ascites or pelvic mass. Bones: Degenerative disc space narrowing at L5-S1. CT/CT abdomen pelvis w con* [id number] IMPRESSION: 1. No GI tract obstruction. 2. Normal appendix. 3. Prior cholecystectomy. 4. Fibroid uterus.
[2022-05-17 14:24] LABS: Alanine Aminotransferase 10 U/L (0-33); Albumin Level 4.2 g/dL (3.5-5.2); Alkaline Phosphatase 41 U/L (35-105); Anion Gap 19.7 (5-19); Aspartate Amino Transferase 16 U/L (0-32); Blood Urea Nitrogen 24 mg/dL (8-23); Calcium 9.5 mg/dL (8.5-10.5); Carbon Dioxide 25 mmol/L (22-29); Chloride 98 mmol/L (98-107); Globulin 2.9 g/dL (1.3-4.6); Glomerular Filtration Rate 61.9 mL/min (90-130); Glucose 140 mg/dL (65-115); Lipase 35 U/L (13-60); Osmolality Calculated 294 mOsm/kg (285-295); Potassium 3.7 mmol/L (3.5-5.1); Sodium 139 mmol/L (136-145); Total Bilirubin 0.3 mg/dL (0.15-1.2); Total Protein 7.1 g/dL (6.6-8.7)
[2022-05-17] MEDS: iohexol 350 mg/mL 500 mL Btl (per mL) IV (14:26)
[2022-05-17] MEDS: morphine 4 mg/mL SDV 1 mL IVP (14:47)
[2022-05-17 15:06] LABS: Lactate (Lactic Acid level) 1.6 mmol/L (0.5-2.2)
[2022-05-17 16:13] LABS: Add Urine Microscopic? NO; Charge for UA Resulting for Rev
[2022-05-17 16:22] LABS: Bilirubin Urine Neg (Negative); Blood Urine Neg (Negative); Glucose Urine UA Norm (Normal); Ketones Urine Negative (Negative); Leukocyte Esterase Urine Negative (Negative); Nitrate Urine Negative (Negative); Protein Urine Neg (Negative); Specific Gravity, Urine 1.005 (1.005-1.030); Urine Appearance Clear (CLEAR); Urine Color Light yellow (Yellow); Urobilinogen Urine Neg (Negative); pH Urine 6.5 (5-7)
--- NOTE | 2022-05-17 16:57 | PC.PHAR ---
pt states she has [facility]-pt states she is not taking ozempic once weekly medication is on [facility] med list ext med history doesnt show when last filled rx written 12/29/21-medications entered are from what the pt states she takes, what ext med history shows has been filled recently and what was on pts med list from [facility]-notes are made in the pharmacy comments
[2022-05-17] MEDS: alum-mag-hydroxide-sime 30 mL UDC PO (17:30)
[2022-05-17] MEDS: ketorolac 30 mg/mL INJ 15 MG IVP (17:30)
[2022-05-17] MEDS: ondansetron 2 mg/ML SDV 2 mL 4 MG IVP (18:47)
== END 2022-05-17 19:33 | disposition home or self-care (01) ==
PROVIDERS: Emergency Provider Emergency Medicine; PCP Family Medicine
DX: R11.2 Nausea with vomiting, unspecified (principal); R10.9 Unspecified abdominal pain; Z79.02 Long term (current) use of antithrombotics/antiplatelets; Z79.4 Long term (current) use of insulin; Z79.84 Long term (current) use of oral hypoglycemic drugs; D25.9 Leiomyoma of uterus, unspecified
CPT/HCPCS: 36415; 51701; 74177; 80053; 81003; 83605; 83690; 85025; 96374; 96375; 99285; J1885; J2270; J2405; Q9967

== ENCOUNTER → 2022-10-09 14:01 | Outpatient (BNVA) | payer MEDICAID, SELFPAY | PROVIDERS: Visit Provider Family Medicine | DX: E11.9 Type 2 diabetes mellitus without complications (principal); G25.81 Restless legs syndrome; R30.0 Dysuria; Z79.899 Other long term (current) drug therapy | CPT/HCPCS: 80053; 80061; 81000; 82728; 83036; 83550; 85025; 87077; 87086; 87184 ==

== ENCOUNTER 2022-10-17 16:31 | Emergency (ER) | payer MEDICAID, SELFPAY ==
[2022-10-17] VITALS (8 sets, daily range): BP systolic 120–156; BP diastolic 52–79; PULSE 52–63; RESP 16; TEMP 36.6; O2SAT 90–98; BMI 34.9
[2022-10-17 17:22] LABS: Basophils % 0.7 %; Eosinophils # 0.2 10^3/uL (0.0-0.8); Eosinophils % 2.9 %; Hematocrit 32.7 % (37.0-47.0); Hemoglobin 10.2 g/dL (11.5-15.3); Lymphocytes # 1.8 10^3/uL (0.8-4.8); Lymphocytes % 31.9 %; Mean Corpuscular HGB Conc 31.2 g/dL (30.0-36.0); Mean Corpuscular Hemoglobin 29.7 pg (28.0-34.0); Mean Corpuscular Volume 95.1 fl (81-99); Mean Platelet Volume 10.4 fL (7.4-10.4); Monocytes # 0.5 10^3/uL (0.2-0.9); Monocytes % 8.6 %; Neutrophils # 3.03 10^3/uL (1.8-7.7); Neutrophils % 55.4 %; Nucleated Red Blood Cells % 0 %; Platelet Count 236 10^3/cmm (130-400); Red Blood Count 3.44 10^6/uL (4.1-5.3); Red Cell Distribution Width 12.8 % (12.1-15.1); White Blood Count 5.5 10^3/uL (4.0-10.0)
[2022-10-17 17:53] LABS: Alanine Aminotransferase 9 U/L (0-33); Albumin Level 3.7 g/dL (3.5-5.2); Alkaline Phosphatase 30 U/L (35-105); Anion Gap 18.7 (5-19); Aspartate Amino Transferase 14 U/L (0-32); Blood Urea Nitrogen 28 mg/dL (8-23); Calcium 8.7 mg/dL (8.5-10.5); Carbon Dioxide 17 mmol/L (22-29); Chloride 103 mmol/L (98-107); Globulin 2.6 g/dL (1.3-4.6); Glucose 100 mg/dL (65-115); Lipase 40 U/L (13-60); Osmolality Calculated 282 mOsm/kg (285-295); Potassium 5.7 mmol/L (3.5-5.1); Sodium 133 mmol/L (136-145); Total Bilirubin 0.2 mg/dL (0.15-1.2); Total Protein 6.3 g/dL (6.6-8.7)
--- NOTE | 2022-10-17 18:18 | CTR_ITS ---
PROCEDURE INFORMATION: Exam: CT Abdomen And Pelvis Without Contrast Exam date and time: 10/17/2022 7:51 PM Age: 72 years old Clinical indication: Abdominal pain; Generalized; Prior surgery; Surgery date: 6+ months; Surgery type: C section, hyst; Additional info: Abd pain TECHNIQUE: Imaging protocol: Computed tomography of the abdomen and pelvis without contrast. Radiation optimization: All CT scans at this facility use at least one of these dose optimization techniques: automated exposure control; mA and/or kV adjustment per patient size (includes targeted exams where dose is matched to clinical indication); or iterative reconstruction. REPORTING DATA: Count of CT and Cardiac NM exams in prior 12 months: This patient has received [address] and 0 known cardiac nuclear medicine studies in the 12 months prior to the current study. COMPARISON: CT abdomen pelvis w con* [id number] 05/17/2022 2:15 PM RADIATION DOSE METRICS: Total DLP (mGy-cm): 928.05 FINDINGS: Lungs: Left lower lobe calcified benign granuloma. Heart: Cardiomegaly. Coronary arteries: Coronary artery atherosclerotic calcifications. Liver: Normal. No mass. Gallbladder and bile ducts: Cholecystectomy. Pancreas: Normal. No ductal dilation. Spleen: Normal. No splenomegaly. Adrenal glands: Normal. No mass. Kidneys and ureters: Normal. No hydronephrosis. Stomach and bowel: Constipation. Appendix: No evidence of appendicitis. Intraperitoneal space: Unremarkable. No free air. No significant fluid collection. Vasculature: Unremarkable. No abdominal aortic aneurysm. Lymph nodes: Unremarkable. No enlarged lymph nodes. Urinary bladder: Unremarkable as visualized. Reproductive: Calcified uterine fibroids measuring up to at least 15 mm. Bones/joints: Unremarkable. No acute fracture. Soft tissues: Unremarkable. CT/CT abdomen pelvis wo con [id number] IMPRESSION: 1. Negative for focal acute inflammatory process in the abdomen or pelvis. 2. Cardiomegaly. 3. Coronary artery atherosclerotic calcifications. 4. Left lower lobe calcified benign granuloma. 5. Cholecystectomy. 6. Constipation. 7. Calcified uterine fibroids measuring up to at least 15 mm.
--- NOTE | 2022-10-17 18:20 | ECG_ITS ---
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 Measurements Intervals [place] Rate: 56 P: 48 OR: 155 QRS: -31 QRSD: 99 T: 76 QT: 458 QTc: 445 Interpretive Statements SINUS BRADYCARDIA LEFT AXIS DEVIATION [QRS AXIS < -30] LOW QRS VOLTAGE IN PRECORDIAL LEADS [QRS DEFLECTION < 1.0 mV IN CHEST LEADS] Compared to ECG 02/06/2022 09:05:52 Left-axis deviation now present Low QRS voltage now present Sinus rhythm no longer present Myocardial infarct finding no longer present T-wave abnormality no longer present Possible ischemia no longer present Electronically Signed On 10-17-2022 20:27:21 CDT by Mckinley Stark M.D. [id number]
--- NOTE | 2022-10-17 18:22 | W.ED.ABDPA2 ---
HPI - Abdominal Pain General: Chief Complaint: Abdominal Pain Stated Complaint: abd pain Time Seen by Provider: 10/17/22 18:15 Source: patient Mode of arrival: ambulatory Limitations: no limitations History of Present Illness: 72-year-old female states she has been having abdominal pain is diffuse in nature over the last 3 weeks. States the pains been cramping in nature she is also had nausea. States she had some slight decreased intake causing her to feel lightheaded and dizzy. States her Lipitor also makes her feel this way as well. She denies any chest pain denies any fevers denies any worsening improving factors. She has had a cholecystectomy Associated Symptoms: Reports nausea; Denies chills, diarrhea, dysuria, fever(s) and vomiting Review of Systems Const: Denies: fever(s), chills, body aches or change in appetite ENMT: Denies: throat pain or dental pain Card: Denies: chest pain Resp: Denies: dyspnea GI: Reports: abdominal pain and nausea; Denies: vomiting or diarrhea : Denies: dysuria Musc: Denies: neck pain or back pain Skin/Breast: Denies: rash Neuro: Denies: headache(s) PFSH ED PFSH: Medical History Altered mental status Arthritis Asthma Atherosclerosis of coronary artery Diabetes DKA (diabetic ketoacidosis) DM type 2 (diabetes mellitus, type 2) Heart failure with preserved ejection fraction HTN (hypertension) Hyperlipidemia Hypertensive urgency Presence of stent in coronary artery in patient with coronary artery disease Pulmonary embolism Small bowel mass Surgical History Hx of cholecystectomy Family History Other Cancer Stroke Social History Smoking and tobacco status: never smoked Alcohol intake: never Substance/Drug Use: never Lives independently: Yes Household members: none Marital status: / Physical Exam Const: COMMON NORMALS: no acute distress, patient oriented x3 and healthy appearing HENMT: COMMON NORMALS: normocephalic and atraumatic HEAD & SCALP: normocephalic and atraumatic Eye: COMMON NORMALS: Equal, round and reactive pupils present and EOMs intact bilaterally PUPIL: Yes Equal, round and reactive pupils present Neck/C-Spine: COMMON NORMALS: full ROM and supple Chest: COMMONS NORMALS: normal inspection of the chest and normal palpation of entire chest wall Resp: COMMON NORMALS: normal respiratory effort, No retractions, No use of accessory muscles and clear to auscultation bilaterally AUSCULTATION: clear to auscultation bilaterally Cardio: COMMON NORMALS: regular rate, regular rhythm and No murmurs present (Cardio) RATE: regular rate RHYTHM: regular rhythm GI: COMMON NORMALS: Normal to inspection, nondistended, normoactive bowel sounds present, Soft to palpation, non-tender and no masses PALPATION: Yes Soft to palpation Extremity: COMMON NORMALS: normal to inspection and full ROM Neuro: COMMON NORMALS: patient oriented x3, moves all extremities and no focal motor deficits Psych: COMMON NORMALS: mental status grossly normal, Normal thought process present and cooperative THOUGHT PROCESS: Normal thought process present Skin: COMMON NORMALS: no rashes or lesions noted and no wounds GENERAL SKIN EXAM: no rashes or lesions noted Course Vital Signs: Vital signs: Vital Signs Temperature 97.9 F 10/17/22 17:26 Pulse Rate 61 10/17/22 20:00 Respiratory Rate 16 10/17/22 18:44 Blood Pressure 141/52 10/17/22 20:00 Pulse Oximetry 93 10/17/22 20:00 Oxygen Delivery Me thod Room Air 10/17/22 20:00 MDM - Abdominal Pain Medical Decision Making Patient presents with abdominal pain is much improved here she did have some slight dehydration gave IV fluids she feels improved CT scan here is normal she is stable for discharge we will prescribe her Zofran she is to follow-up with PCP and return if worsening she understands and agrees to plan. Medical Records I reviewed the patient's medical records. Lab Data I reviewed the patient's lab results. 10/17/22 17:06 10/17/22 17:06 Labs/Radiology: Radiology Impressions Abdomen/Pelvis CT 10/17/22 18:18 IMPRESSION: 1. Negative for focal acute inflammatory process in the abdomen or pelvis. 2. Cardiomegaly. 3. Coronary artery atherosclerotic calcifications. 4. Left lower lobe calcified benign granuloma. 5. Cholecystectomy. 6. Constipation. 7. Calcified uterine fibroids measuring up to at least 15 mm. Laboratory Results WBC 5.5 10^3/uL (4.0-10.0) 10/17/22 17:06 RBC 3.44 10^6/uL (4.1-5.3) L 10/17/22 17:06 Hgb 10.2 g/dL (11.5-15.3) L 10/17/22 17:06 Hct 32.7 % (37.0-47.0) L 10/17/22 17:06 MCV 95.1 fl (81-99) 10/17/22 17:06 MCH 29.7 pg (28.0-34.0) 10/17/22 17:06 MCHC 31.2 g/dL (30.0-36.0) 10/17/22 17:06 RDW 12.8 % (12.1-15.1) 10/17/22 17:06 Plt Count 236 10^3/cmm (130-400) 10/17/22 17:06 MPV 10.4 fL (7.4-10.4) 10/17/22 17:06 Neut % (Auto) 55.4 % 10/17/22 17:06 Lymph % (Auto) 31.9 % 10/17/22 17:06 [place] % (Auto) 8.6 % 10/17/22 17:06 Eos % (Auto) 2.9 % 10/17/22 17:06 Baso % (Auto) 0.7 % 10/17/22 17:06 Neut # (Auto) 3.03 10^3/uL (1.8-7.7) 10/17/22 17:06 Lymph # (Auto) 1.8 10^3/uL (0.8-4.8) 10/17/22 17:06 [place] # (Auto) 0.5 10^3/uL (0.2-0.9) 10/17/22 17:06 Eos # (Auto) 0.2 10^3/uL (0.0-0.8) 10/17/22 17:06 Baso # (Auto) 0.0 10^3/uL (0.0-0.1) 10/17/22 17:06 Nucleated RBC % (auto) 0 % 10/17/22 17:06 Nucleated RBCs # 0.0 /100WBC 10/17/22 17:06 Sodium 133 mmol/L (136-145) L 10/17/22 17:06 Potassium 5.7 mmol/L (3.5-5.1) H 10/17/22 17:06 Chloride 103 mmol/L (98-107) 10/17/22 17:06 Carbon Dioxide 17 mmol/L (22-29) L 10/17/22 17:06 Anion Gap 18.7 (5-19) 10/17/22 17:06 BUN 28 mg/dL (8-23) H 10/17/22 17:06 Creatinine 1.9 mg/dL (0.5-0.9) H 10/17/22 17:06 GFR Calculation Not Reportable 10/17/22 17:06 Glucose 100 mg/dL (65-115) 10/17/22 17:06 Calculated Osmolality 282 mOsm/kg (285-295) L 10/17/22 17:06 Calcium 8.7 mg/dL (8.5-10.5) 10/17/22 17:06 Total Bilirubin 0.2 mg/dL (0.15-1.2) 10/17/22 17:06 AST 14 U/L (0-32) 10/17/22 17:06 ALT 9 U/L (0-33) 10/17/22 17:06 Alkaline Phosphatase 30 U/L (35-105) L 10/17/22 17:06 Total Protein 6.3 g/dL (6.6-8.7) L 10/17/22 17:06 Albumin 3.7 g/dL (3.5-5.2) 10/17/22 17:06 Globulin 2.6 g/dL (1.3-4.6) 10/17/22 17:06 Lipase 40 U/L (13-60) 10/17/22 17:06 Urine Color Light yellow (Yellow) 10/17/22 20:19 Urine Appearance Clear (CLEAR) 10/17/22 20:19 Urine pH 5 (5-7) 10/17/22 20:19 Ur Specific [place] 1.020 (1.005-1.030) 10/17/22 20:19 Urine Protein Neg (Negative) 10/17/22 20:19 Urine Glucose (UA) Norm (Normal) 10/17/22 20:19 Urine Ketones Negative (Negative) 10/17/22 20:19 Urine Blood Neg (Negative) 10/17/22 20:19 Urine Nitrate Negative (Negative) 10/17/22 20:19 Urine Bilirubin Neg (Negative) 10/17/22 20:19 Urine Urobilinogen Neg mg/dL (Negative) 10/17/22 20:19 Ur Leukocyte Esterase Negative (Negative) 10/17/22 20:19 EKG Data EKG 1: I personally reviewed and interpreted this EKG as follows: EKG interpretation date: 10/17/22 EKG interpretation time: 18:26 Interpretation: sinus jennie hr [address] or t wave abnormalities qrs 99 qtc 450 Discharge Plan Discharge Patient Disposition: Home Clinical Impression: Abdominal pain, Constipation Condition: Stable Prescriptions: New ondansetron 4 mg tablet,disintegrating 4 mg PO Q6H PRN (Reason: nausea and vomiting) Qty: 14 0RF Miralax 17 gram powder in packet 17 g PO DAILY PRN (Reason: constipation) Qty: 14 0RF No Action Aspercreme (lidocaine HCl) 4 % liquid roll-on See Rx Instructions topical .COMPLEX Qty: 73 0RF Rx Instructions: apply to affected painful area of abdomen topically up to qid as needed semaglutide 0.25 mg or 0.5 mg (2 mg/3 mL) pen injector 0.5 mg SUBCUT .qweekly 30 Days Qty: 3 6RF ropinirole 0.5 mg tablet 0.5 mg PO DAILY Qty: 30 0RF (DME) ReliOn Prime Test Strips Strip See Rx Instructions .Route Qty: 300 3RF Rx Instructions: As directed with Relion meter TID 90 day supply furosemide [Lasix] 40 mg tablet 40 mg PO DAILY PRN (Reason: Edema) Qty: 60 3RF Hold Instructions: Resume on 10/17/21. (DME) OneTouch Ultra Test Strip See Rx Instructions .ROUTE .COMPLEX Qty: 100 11RF Dose Instruction: DIRECTED, CHECK SUGARS DAILY FASTING AND OCCASIONALLY ONE HOUR POST MEAL INSTEAD OF FASTING E11.9 Rx Instructions: DIRECTED, CHECK SUGARS DAILY FASTING AND OCCASIONALLY ONE HOUR POST MEAL INSTEAD OF FASTING E11.9 carvedilol 12.5 mg tablet 12.5 mg PO BID Qty: 180 3RF losartan 100 mg tablet 100 mg PO QAM Qty: 90 3RF pantoprazole 40 mg tablet,delayed release (DR/EC) 40 mg PO DAILY Qty: 90 3RF isosorbide mononitrate 30 mg tablet extended release 24 hr 30 mg PO DAILY Qty: 90 3RF clopidogrel 75 mg tablet 75 mg PO DAILY Qty: 90 3RF (DME) insulin syringe-needle U-100 [BD Insulin Syringe Ultra-Fine] 1 mL 31 gauge x 5/16 syringe See Rx Instructions .ROUTE .COMPLEX Qty: 100 3RF Dose Instruction: DIRECTED Rx Instructions: DIRECTED amlodipine 10 mg tablet 10 mg PO DAILY Qty: 90 3RF metformin 1,000 mg tablet 1,000 mg PO BID Qty: 180 3RF Hold Instructions: Resume on 06/11/21. Hold on 06/09 and 06/10. insulin glargine [Lantus U-100 Insulin] 100 unit/mL solution 25 unit SUBCUT BID Qty: 10 1RF sulfamethoxazole-trimethoprim [Bactrim DS] 800-160 mg tablet 1 tab PO BID 7 Days Qty: 14 0RF nitroglycerin 0.4 mg Tablet, Sublingual 0.4 mg sublingual Q5M PRN (Reason: Chest Pain) Qty: 25 6RF bismuth subsalicylate [Pepto-Bismol] 262 mg/15 mL Suspension 524 mg PO Q1H PRN (Reason: Gastrointestinal Spasms Or Cramping) Rx Instructions: do not exceed 8 doses in a 24 hour period olopatadine 0.1 % Drops 1 drp OPHTHALMIC (EYE) BID PRN (Reason: unknown) Rx Instructions: separate doses by at least 6-8 hours cholecalciferol (vitamin D3) [Vitamin D3] 25 mcg (1,000 unit) Tablet 25 mcg PO DAILY Salonpas Pain Relieving Jet 10-3 % Aerosol,Acme 1 spray TOPICAL Q4H PRN (Reason: Pain) multivitamin Tablet 1 tab PO DAILY potassium chloride 10 mEq tablet extended release 10 meq PO DAILY atorvastatin 80 mg tablet 80 mg PO BEDTIME fenofibrate nanocrystallized 145 mg tablet 145 mg PO DAILY ondansetron 4 mg tablet,disintegrating 4 mg PO Q8H PRN (Reason: nausea and vomiting) Qty: 15 0RF Discharge Orders: Discharge ED (Routine); Ordered 10/17/22 Ordered By: Korby Whitney Discharge Diet: Advance as tolerated Discharge Activity: Resume usual activity Patient Instructions: Abdominal Pain (ED) Coding Level of Care Code 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
[2022-10-17] MEDS: sodium chloride 0.9% 1,000 ML 999 ML IV (18:41)
[2022-10-17] MEDS: ondansetron 2 mg/ML SDV 2 mL 4 MG IVP (18:41)
[2022-10-17] MEDS: morphine 4 mg/mL SDV 1 mL IVP (18:44)
[2022-10-17 20:26] LABS: Add Urine Microscopic? NO; Charge for UA Resulting for Rev
[2022-10-17 20:31] LABS: Bilirubin Urine Neg (Negative); Blood Urine Neg (Negative); Glucose Urine UA Norm (Normal); Ketones Urine Negative (Negative); Leukocyte Esterase Urine Negative (Negative); Nitrate Urine Negative (Negative); Protein Urine Neg (Negative); Urine Appearance Clear (CLEAR); Urine Color Light yellow (Yellow); Urobilinogen Urine Neg (Negative); pH Urine 5 (5-7)
== END 2022-10-17 21:16 | disposition home or self-care (01) ==
PROVIDERS: Physician Assistant; Emergency Provider Emergency Medicine
DX: K59.00 Constipation, unspecified (principal); Z79.02 Long term (current) use of antithrombotics/antiplatelets; Z79.4 Long term (current) use of insulin; Z79.84 Long term (current) use of oral hypoglycemic drugs; D25.9 Leiomyoma of uterus, unspecified; I25.10 Atherosclerotic heart disease of native coronary artery without angina pectoris; E11.9 Type 2 diabetes mellitus without complications; I11.0 Hypertensive heart disease with heart failure; I50.9 Heart failure, unspecified; E78.5 Hyperlipidemia, unspecified; Z95.5 Presence of coronary angioplasty implant and graft
CPT/HCPCS: 36415; 74176; 80053; 81003; 83690; 85025; 93005; 96374; 96375; 99285; J2270; J2405; J7030

== ENCOUNTER → 2022-10-23 14:15 | Outpatient (BNVA) | payer MEDICAID, SELFPAY | PROVIDERS: Visit Provider Family Medicine | DX: N17.9 Acute kidney failure, unspecified (principal); D64.9 Anemia, unspecified; R10.9 Unspecified abdominal pain; E87.5 Hyperkalemia; E11.9 Type 2 diabetes mellitus without complications; G25.81 Restless legs syndrome; I50.30 Unspecified diastolic (congestive) heart failure; I25.10 Atherosclerotic heart disease of native coronary artery without angina pectoris; E11.59 Type 2 diabetes mellitus with other circulatory complications; I15.2 Hypertension secondary to endocrine disorders; K21.9 Gastro-esophageal reflux disease without esophagitis; Z99.81 Dependence on supplemental oxygen | CPT/HCPCS: 80053; 83540 ==

== ENCOUNTER 2022-10-27 10:16 | Outpatient (CLI) | payer MEDICAID, SELFPAY ==
--- NOTE | 2022-10-27 11:30 | US_ITS ---
WS: [id number] ULTRASOUND ABDOMEN LIMITED CLINICAL INFORMATION: multiple mass on R axillary line abdomen COMPARISON: None. FINDINGS: Ultrasound abdomen in the area of concern. Normal underlying subcutaneous tissue. Somewhat nodular lipomatous tissue in the area of concern compatible with incidental benign lipomas. No other suspicious findings. IMPRESSION: See discussion above
== END 2022-10-27 10:17 | disposition home or self-care (01) ==
LOC: RAD 10:19
PROVIDERS: PCP Family Medicine; Visit Provider Family Medicine
DX: R10.9 Unspecified abdominal pain (principal)
CPT/HCPCS: 76705

== ENCOUNTER 2022-12-05 16:45 | Inpatient (IN) | payer MEDICAID, SELFPAY ==
[2022-12-05] VITALS (9 sets, daily range): BP systolic 132–192; BP diastolic 65–89; PULSE 67–78; RESP 16–188; TEMP 36.4–39.1; O2SAT 94–98
--- NOTE | 2022-12-05 16:47 | XRR_ITS ---
PROCEDURE INFORMATION: Exam: XR Chest Exam date and time: 12/05/2022 4:56 PM Age: 72 years old Clinical indication: Shortness of breath; Prior surgery; Surgery date: 6+ months; Surgery type: Cardiac stents; Additional info: SOB TECHNIQUE: Imaging protocol: Radiologic exam of the chest. Views: 1 view. COMPARISON: 1. CR XR chest 1V portable [id number] 02/06/2022 10:05 AM 2. CR XR chest 1V portable [id number] 10/12/2021 11:11 AM 3. CR XR chest 1V portable [id number] 09/07/2021 8:22 PM FINDINGS: Lungs: Stable calcified granulomata. No consolidation. Pleural spaces: Unremarkable. No pleural effusion. No pneumothorax. Heart/Mediastinum: Unremarkable. No cardiomegaly. Vasculature: Aortic arch atherosclerotic calcification. Coronary artery calcification versus stent material. Bones/joints: Degenerative changes along the spine. XR/XR chest 1V portable [id number] IMPRESSION: No acute findings.
--- NOTE | 2022-12-05 16:47 | ECG_ITS ---
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 Measurements Intervals [place] Rate: 75 P: 57 NH: 173 QRS: -44 QRSD: 73 T: 82 QT: 381 QTc: 425 Interpretive Statements SINUS RHYTHM LOW QRS VOLTAGE IN PRECORDIAL LEADS [QRS DEFLECTION < 1.0 mV IN CHEST LEADS] INFERIOR MYOCARDIAL INFARCTION , PROBABLY OLD [40+ ms Q WAVE AND/OR ST/T ABNORMALITY IN II/aVF] ANTEROSEPTAL MYOCARDIAL INFARCTION , PROBABLY OLD [40+ ms Q WAVE IN V1-V4] Compared to ECG 10/17/2022 18:26:13 Myocardial infarct finding now present Sinus bradycardia no longer present Left-axis deviation no longer present Electronically Signed On 12-06-2022 7:40:32 CDT by Bryan Posadas M.D. [id number]
--- NOTE | 2022-12-05 17:05 | W.ED.SOB ---
Documented by User: Jie Olson MD 12/05/22 17:23 HPI - SOB/Dyspnea General: Chief Complaint: Shortness of Breath/Dyspnea Stated Complaint: Resp Distress Time Seen by Provider: 12/05/22 16:47 Source: patient and EMS Mode of arrival: EMS Limitations: no limitations History of Present Illness: HPI Narrative: 72-year-old female states she been having increased shortness of breath along with fevers over the last 2 days she has history of CHF she is on 3 L at baseline when EMS arrived they had to turn up to 4 L I did give her breathing treatment she is tachypneic here able to speak in 3-4 word sentences she does have a fever here 102 she denies any vomiting or diarrhea or chest pain Associated symptoms: Reports fever(s); Deny abdominal pain, chest pain, nausea or vomiting Review of Systems Const: Reports: fever(s), chills and fatigue ENMT: Denies: throat pain or dental pain Card: Denies: chest pain Resp: Reports: dyspnea and non-productive cough GI: Denies: abdominal pain, nausea, vomiting or diarrhea : Denies: dysuria Musc: Denies: neck pain or back pain Skin/Breast: Denies: rash Neuro: Denies: headache(s) PFSH ED PFSH: Medical History Altered mental status Arthritis Asthma Atherosclerosis of coronary artery Diabetes DKA (diabetic ketoacidosis) DM type 2 (diabetes mellitus, type 2) Heart failure with preserved ejection fraction HTN (hypertension) Hyperlipidemia Hypertensive urgency Presence of stent in coronary artery in patient with coronary artery disease Pulmonary embolism Small bowel mass Surgical History Hx of cholecystectomy Family History Other Cancer Stroke Social History Smoking and tobacco status: never smoked Alcohol intake: never Substance/Drug Use: never Lives independently: Yes Household members: none Marital status: / Physical Exam Const: COMMON NORMALS: patient oriented x3 GENERAL APPEARANCE: in distress and ill appearing HENMT: COMMON NORMALS: normocephalic and atraumatic HEAD & SCALP: normocephalic and atraumatic Eye: COMMON NORMALS: Equal, round and reactive pupils present and EOMs intact bilaterally PUPIL: Yes Equal, round and reactive pupils present Neck/C-Spine: COMMON NORMALS: full ROM and supple Chest: COMMONS NORMALS: normal inspection of the chest and normal palpation of entire chest wall Resp: EFFORT & INSPECTION: Yes respiratory distress and Yes labored AUSCULTATION: wheezes Cardio: COMMON NORMALS: regular rate, regular rhythm and No murmurs present (Cardio) RATE: regular rate RHYTHM: regular rhythm GI: COMMON NORMALS: Normal to inspection, nondistended, normoactive bowel sounds present, Soft to palpation, non-tender and no masses PALPATION: Yes Soft to palpation Extremity: COMMON NORMALS: normal to inspection and full ROM Neuro: COMMON NORMALS: patient oriented x3, moves all extremities and no focal motor deficits Psych: COMMON NORMALS: mental status grossly normal, Normal thought process present and cooperative THOUGHT PROCESS: Normal thought process present Skin: COMMON NORMALS: no rashes or lesions noted and no wounds GENERAL SKIN EXAM: no rashes or lesions noted Course Vital Signs: Vital signs: Vital Signs Temperature 98.5 F 12/05/22 19:47 Pulse Rate 69 12/05/22 19:47 Respiratory Rate 19 H 12/05/22 19:47 Blood Pressure 169/70 12/05/22 19:47 Pulse Oximetry 96 12/05/22 19:47 Oxygen Delivery Me thod Nasal Cannula 12/05/22 19:47 Oxygen Flow Rate 3 12/05/22 19:47 MDM - SOB/Dyspnea Medical Records I reviewed the patient's medical records. Lab Data I reviewed the patient's lab results. 12/05/22 17:11 12/05/22 17:11 Labs/Radiology: Radiology Impressions Chest X-Ray 12/05/22 16:47 IMPRESSION: No acute findings. Laboratory Results WBC 8.16 10^3/uL (3.29-11.43) 12/05/22 17:11 RBC 3.83 10^6/uL (3.85-5.65) L 12/05/22 17:11 Hgb 11.40 g/dL (11.27-16.99) 12/05/22 17:11 Hct 34.8 % (36-47) L 12/05/22 17:11 MCV 90.9 fl (85-98) 12/05/22 17:11 MCH 29.8 pg (27-33) 12/05/22 17:11 MCHC 32.8 g/dL (30-55) 12/05/22 17:11 RDW 13.0 % (12.1-15.1) 12/05/22 17:11 Plt Count 273 10^3/cmm (157-399) 12/05/22 17:11 MPV 10.2 fL (7.4-10.4) 12/05/22 17:11 Neut % (Auto) 82.1 % 12/05/22 17:11 Lymph % (Auto) 8.8 % 12/05/22 17:11 Ponce % (Auto) 6.1 % 12/05/22 17:11 Eos % (Auto) 2.0 % 12/05/22 17:11 Baso % (Auto) 0.6 % 12/05/22 17:11 Neut # (Auto) 6.70 10^3/uL (1.8-7.7) 12/05/22 17:11 Lymph # (Auto) 0.7 10^3/uL (0.8-4.8) L 12/05/22 17:11 Ponce # (Auto) 0.5 10^3/uL (0.2-0.9) 12/05/22 17:11 Eos # (Auto) 0.2 10^3/uL (0.0-0.8) 12/05/22 17:11 Baso # (Auto) 0.1 10^3/uL (0.0-0.1) 12/05/22 17:11 Nucleated RBC % (auto) 0 % 12/05/22 17:11 Nucleated RBCs # 0.0 /100WBC 12/05/22 17:11 PT 12.20 SECONDS (12.1-14.9) 12/05/22 17:11 INR 0.88 (0.8-1.2) 12/05/22 17:11 Specimen Type Arterial 12/05/22 17:19 Sample Site Radial, left 12/05/22 17:19 ABG pH 7.42 (7.35-7.45) 12/05/22 17:19 ABG pCO2 34.5 mmHg (35-45) L 12/05/22 17:19 ABG pO2 73.6 mmHg (80.0-100.0) L 12/05/22 17:19 ABG HCO3 22.2 mmol/L (22-26) 12/05/22 17:19 ABG Base Excess -1.9 mmol/L (-2.0-2.0) 12/05/22 17:19 Stephen Test Pos 12/05/22 17:19 Hematocrit 33.3 % (37-47) L 12/05/22 17:19 Hgb O2 Saturation 96.5 % (95-100) 12/05/22 17:19 Carboxyhemoglobin 1.1 %THgb (0.4-20.1) 12/05/22 17:19 Methemoglobin < 0.0 % (0.4-1.5) L 12/05/22 17:19 Total Hemoglobin 10.9 g/dL (12-16) L 12/05/22 17:19 O2 Delivery Device Nc 12/05/22 17:19 O2 Liters/Min 3.0 % 12/05/22 17:19 Emergency Department Physician ID Cak 12/05/22 17:19 Sodium 136 mmol/L (136-145) 12/05/22 17:11 Potassium 4.4 mmol/L (3.5-5.1) 12/05/22 17:11 Chloride 101 mmol/L (98-107) 12/05/22 17:11 Carbon Dioxide 25 mmol/L (22-29) 12/05/22 17:11 Anion Gap 14.4 (5-19) 12/05/22 17:11 BUN 10 mg/dL (8-23) 12/05/22 17:11 Creatinine 0.9 mg/dL (0.5-0.9) 12/05/22 17:11 GFR Calculation Not Reportable 12/05/22 17:11 Glucose 311 mg/dL (65-115) H 12/05/22 17:11 Calculated Osmolality 293 mOsm/kg (285-295) 12/05/22 17:11 Lactic Acid 1.7 mmol/L (0.5-2.2) 12/05/22 17:11 Calcium 8.9 mg/dL (8.5-10.5) 12/05/22 17:11 Total Bilirubin 0.3 mg/dL (0.15-1.2) 12/05/22 17:11 AST 11 U/L (0-32) 12/05/22 17:11 ALT 8 U/L (0-33) 12/05/22 17:11 Alkaline Phosphatase 54 U/L (35-105) 12/05/22 17:11 NT-Pro-B Natriuret Pep 1651 pg/mL (0-125) H 12/05/22 17:11 Total Protein 7.5 g/dL (6.6-8.7) 12/05/22 17:11 Albumin 4.3 g/dL (3.5-5.2) 12/05/22 17:11 Globulin 3.2 g/dL (1.3-4.6) 12/05/22 17:11 Urine Color Yellow (Yellow) 12/05/22 18:58 Urine Appearance Clear (CLEAR) 12/05/22 18:58 Urine pH 6 (5-7) 12/05/22 18:58 Ur Specific Chambers 1.015 (1.005-1.030) 12/05/22 18:58 Urine Protein 2+ (Negative) H 12/05/22 18:58 Urine Glucose (UA) 4+ (Normal) H 12/05/22 18:58 Urine Ketones Negative (Negative) 12/05/22 18:58 Urine Blood Neg (Negative) 12/05/22 18:58 Urine Nitrate Negative (Negative) 12/05/22 18:58 Urine Bilirubin Neg (Negative) 12/05/22 18:58 Urine Urobilinogen Norm mg/dL (Negative) 12/05/22 18:58 Ur Leukocyte Esterase Negative (Negative) 12/05/22 18:58 Urine RBC 0-4 /hpf (0-2) H 12/05/22 18:58 Urine WBC 5-10 /hpf (0-5) H 12/05/22 18:58 Ur Squamous Epith Cells 10-15 /hpf (0-5) H 12/05/22 18:58 Amorphous Sediment Not Reportable 12/05/22 18:58 Urine Bacteria Trace /hpf (NONE) 12/05/22 18:58 Urine Mucus 2+ /hpf 12/05/22 18:58 Influenza Type A Ag negative (Negative) 12/05/22 17:10 Influenza Type B Ag negative (Negative) 12/05/22 17:10 SARS-CoV-2 Ag (Rapid) negative (Negative) 12/05/22 17:10 Imaging Data CXR: I personally reviewed and interpreted this imaging study as follows: My impression: no acute abnormalities All radiology interpretation(s) finalized by discharge EKG Data EKG 1: I personally reviewed and interpreted this EKG as follows: EKG Interpretation Date: 12/05/22 EKG interpretation time: 17:17 Interpretation: nsr hr [address] or t wave abnormalities qrs 73 qtc 409 Discharge Plan Discharge Patient Disposition: Admitted As Inpatient Clinical Impression: Acute exacerbation of chronic obstructive airways disease, Fever, Tachypnea Condition: Stable Prescriptions: No Action Aspercreme (lidocaine HCl) 4 % liquid roll-on See Rx Instructions topical .COMPLEX Qty: 73 0RF Rx Instructions: apply to affected painful area of abdomen topically up to qid as needed metoclopramide HCl 10 mg tablet 10 mg PO QID PRN (Reason: nausea and vomiting) Qty: 120 1RF ropinirole 1 mg tablet 1 mg PO DAILY Qty: 90 1RF Victoza 3-Krishna 0.6 mg/0.1 mL (18 mg/3 mL) pen injector 1.2 mg SUBCUT DAILY 30 Days Qty: 9 2RF (DME) ReliOn Prime Test Strips Strip See Rx Instructions .Route Qty: 300 3RF Rx Instructions: As directed with Relion meter TID 90 day supply furosemide [Lasix] 40 mg tablet 40 mg PO DAILY PRN (Reason: Edema) Qty: 60 3RF Hold Instructions: Resume on 10/17/21. (DME) OneTouch Ultra Test Strip See Rx Instructions .ROUTE .COMPLEX Qty: 100 11RF Dose Instruction: DIRECTED, CHECK SUGARS DAILY FASTING AND OCCASIONALLY ONE HOUR POST MEAL INSTEAD OF FASTING E11.9 Rx Instructions: DIRECTED, CHECK SUGARS DAILY FASTING AND OCCASIONALLY ONE HOUR POST MEAL INSTEAD OF FASTING E11.9 carvedilol 12.5 mg tablet 12.5 mg PO BID Qty: 180 3RF losartan 100 mg tablet 100 mg PO QAM Qty: 90 3RF pantoprazole 40 mg tablet,delayed release (DR/EC) 40 mg PO DAILY Qty: 90 3RF isosorbide mononitrate 30 mg tablet extended release 24 hr 30 mg PO DAILY Qty: 90 3RF clopidogrel 75 mg tablet 75 mg PO DAILY Qty: 90 3RF (DME) insulin syringe-needle U-100 [BD Insulin Syringe Ultra-Fine] 1 mL 31 gauge x 5/16 syringe See Rx Instructions .ROUTE .COMPLEX Qty: 100 3RF Dose Instruction: DIRECTED Rx Instructions: DIRECTED amlodipine 10 mg tablet 10 mg PO DAILY Qty: 90 3RF metformin 1,000 mg tablet 1,000 mg PO BID Qty: 180 3RF Hold Instructions: Resume on 06/11/21. Hold on 06/09 and 06/10. insulin glargine [Lantus U-100 Insulin] 100 unit/mL solution 25 unit SUBCUT BID Qty: 10 1RF nitroglycerin 0.4 mg Tablet, Sublingual 0.4 mg sublingual Q5M PRN (Reason: Chest Pain) Qty: 25 6RF bismuth subsalicylate [Pepto-Bismol] 262 mg/15 mL Suspension 524 mg PO Q1H PRN (Reason: Gastrointestinal Spasms Or Cramping) Rx Instructions: do not exceed 8 doses in a 24 hour period olopatadine 0.1 % Drops 1 drp OPHTHALMIC (EYE) BID PRN (Reason: unknown) Rx Instructions: separate doses by at least 6-8 hours cholecalciferol (vitamin D3) [Vitamin D3] 25 mcg (1,000 unit) Tablet 25 mcg PO DAILY Salonpas Pain Relieving Jet 10-3 % Aerosol,Ramah 1 spray TOPICAL Q4H PRN (Reason: Pain) ondansetron 4 mg tablet,disintegrating 4 mg PO Q6H PRN (Reason: nausea and vomiting) Qty: 14 0RF Miralax 17 gram powder in packet 17 g PO DAILY PRN (Reason: constipation) Qty: 14 0RF multivitamin Tablet 1 tab PO DAILY potassium chloride 10 mEq tablet extended release 10 meq PO DAILY atorvastatin 80 mg tablet 80 mg PO BEDTIME fenofibrate nanocrystallized 145 mg tablet 145 mg PO DAILY Referrals: Avtar Bruce MD [Primary Care Provider] - Coding Level of Care Code ED Teacher Early Childhood Development for Chg Fwd Documented by User: Luis PerazaDO 12/05/22 21:14 HPI - SOB/Dyspnea General: Chief Complaint: Shortness of Breath/Dyspnea Stated Complaint: Resp Distress Time Seen by Provider: 12/05/22 16:47 PFSH ED PFSH: Medical History Altered mental status Arthritis Asthma Atherosclerosis of coronary artery Diabetes DKA (diabetic ketoacidosis) DM type 2 (diabetes mellitus, type 2) Heart failure with preserved ejection fraction HTN (hypertension) Hyperlipidemia Hypertensive urgency Presence of stent in coronary artery in patient with coronary artery disease Pulmonary embolism Small bowel mass Surgical History Hx of cholecystectomy Family History Other Cancer Stroke Social History Smoking and tobacco status: never smoked Alcohol intake: never Substance/Drug Use: never Lives independently: Yes Household members: none Marital status: / Course Vital Signs: Vital signs: Vital Signs Temperature 98.5 F 12/05/22 19:47 Pulse Rate 69 12/05/22 19:47 Respiratory Rate 19 H 12/05/22 19:47 Blood Pressure 169/70 12/05/22 19:47 Pulse Oximetry 96 12/05/22 19:47 Oxygen Delivery Me thod Nasal Cannula 12/05/22 19:47 Oxygen Flow Rate 3 12/05/22 19:47 MDM - SOB/Dyspnea Medical Decision Making Patient presented to the ER with increasing need for oxygen, fever, tachypnea patient was worked up in the standard fashion included lab work chest x-ray and urinalysis. Patient was given approximately 1 albuterol treatment, 1 DuoNeb treatment, 1 g of Rocephin, 500 mg of azithromycin, patient slightly improved. Patient was discussed with Dr. Billy who to call for Dr. Morris. He suggested we get a full respiratory panel, CTA of the chest, give the patient 1 g of magnesium, order another nebulizer treatment, and admit to [facility]. Lab Data 12/05/22 17:11 12/05/22 17:11 Labs/Radiology: Radiology Impressions Chest X-Ray 12/05/22 16:47 IMPRESSION: No acute findings. Laboratory Results WBC 8.16 10^3/uL (3.29-11.43) 12/05/22 17:11 RBC 3.83 10^6/uL (3.85-5.65) L 12/05/22 17:11 Hgb 11.40 g/dL (11.27-16.99) 12/05/22 17:11 Hct 34.8 % (36-47) L 12/05/22 17:11 MCV 90.9 fl (85-98) 12/05/22 17:11 MCH 29.8 pg (27-33) 12/05/22 17:11 MCHC 32.8 g/dL (30-55) 12/05/22 17:11 RDW 13.0 % (12.1-15.1) 12/05/22 17:11 Plt Count 273 10^3/cmm (157-399) 12/05/22 17:11 MPV 10.2 fL (7.4-10.4) 12/05/22 17:11 Neut % (Auto) 82.1 % 12/05/22 17:11 Lymph % (Auto) 8.8 % 12/05/22 17:11 Ponce % (Auto) 6.1 % 12/05/22 17:11 Eos % (Auto) 2.0 % 12/05/22 17:11 Baso % (Auto) 0.6 % 12/05/22 17:11 Neut # (Auto) 6.70 10^3/uL (1.8-7.7) 12/05/22 17:11 Lymph # (Auto) 0.7 10^3/uL (0.8-4.8) L 12/05/22 17:11 Ponce # (Auto) 0.5 10^3/uL (0.2-0.9) 12/05/22 17:11 Eos # (Auto) 0.2 10^3/uL (0.0-0.8) 12/05/22 17:11 Baso # (Auto) 0.1 10^3/uL (0.0-0.1) 12/05/22 17:11 Nucleated RBC % (auto) 0 % 12/05/22 17:11 Nucleated RBCs # 0.0 /100WBC 12/05/22 17:11 PT 12.20 SECONDS (12.1-14.9) 12/05/22 17:11 INR 0.88 (0.8-1.2) 12/05/22 17:11 Specimen Type Arterial 12/05/22 17:19 Sample Site Radial, left 12/05/22 17:19 ABG pH 7.42 (7.35-7.45) 12/05/22 17:19 ABG pCO2 34.5 mmHg (35-45) L 12/05/22 17:19 ABG pO2 73.6 mmHg (80.0-100.0) L 12/05/22 17:19 ABG HCO3 22.2 mmol/L (22-26) 12/05/22 17:19 ABG Base Excess -1.9 mmol/L (-2.0-2.0) 12/05/22 17:19 Stephen Test Pos 12/05/22 17:19 Hematocrit 33.3 % (37-47) L 12/05/22 17:19 Hgb O2 Saturation 96.5 % (95-100) 12/05/22 17:19 Carboxyhemoglobin 1.1 %THgb (0.4-20.1) 12/05/22 17:19 Methemoglobin < 0.0 % (0.4-1.5) L 12/05/22 17:19 Total Hemoglobin 10.9 g/dL (12-16) L 12/05/22 17:19 O2 Delivery Device Nc 12/05/22 17:19 O2 Liters/Min 3.0 % 12/05/22 17:19 Emergency Department Physician ID Cak 12/05/22 17:19 Sodium 136 mmol/L (136-145) 12/05/22 17:11 Potassium 4.4 mmol/L (3.5-5.1) 12/05/22 17:11 Chloride 101 mmol/L (98-107) 12/05/22 17:11 Carbon Dioxide 25 mmol/L (22-29) 12/05/22 17:11 Anion Gap 14.4 (5-19) 12/05/22 17:11 BUN 10 mg/dL (8-23) 12/05/22 17:11 Creatinine 0.9 mg/dL (0.5-0.9) 12/05/22 17:11 GFR Calculation Not Reportable 12/05/22 17:11 Glucose 311 mg/dL (65-115) H 12/05/22 17:11 Calculated Osmolality 293 mOsm/kg (285-295) 12/05/22 17:11 Lactic Acid 1.7 mmol/L (0.5-2.2) 12/05/22 17:11 Calcium 8.9 mg/dL (8.5-10.5) 12/05/22 17:11 Total Bilirubin 0.3 mg/dL (0.15-1.2) 12/05/22 17:11 AST 11 U/L (0-32) 12/05/22 17:11 ALT 8 U/L (0-33) 12/05/22 17:11 Alkaline Phosphatase 54 U/L (35-105) 12/05/22 17:11 NT-Pro-B Natriuret Pep 1651 pg/mL (0-125) H 12/05/22 17:11 Total Protein 7.5 g/dL (6.6-8.7) 12/05/22 17:11 Albumin 4.3 g/dL (3.5-5.2) 12/05/22 17:11 Globulin 3.2 g/dL (1.3-4.6) 12/05/22 17:11 Urine Color Yellow (Yellow) 12/05/22 18:58 Urine Appearance Clear (CLEAR) 12/05/22 18:58 Urine pH 6 (5-7) 12/05/22 18:58 Ur Specific Chambers 1.015 (1.005-1.030) 12/05/22 18:58 Urine Protein 2+ (Negative) H 12/05/22 18:58 Urine Glucose (UA) 4+ (Normal) H 12/05/22 18:58 Urine Ketones Negative (Negative) 12/05/22 18:58 Urine Blood Neg (Negative) 12/05/22 18:58 Urine Nitrate Negative (Negative) 12/05/22 18:58 Urine Bilirubin Neg (Negative) 12/05/22 18:58 Urine Urobilinogen Norm mg/dL (Negative) 12/05/22 18:58 Ur Leukocyte Esterase Negative (Negative) 12/05/22 18:58 Urine RBC 0-4 /hpf (0-2) H 12/05/22 18:58 Urine WBC 5-10 /hpf (0-5) H 12/05/22 18:58 Ur Squamous Epith Cells 10-15 /hpf (0-5) H 12/05/22 18:58 Amorphous Sediment Not Reportable 12/05/22 18:58 Urine Bacteria Trace /hpf (NONE) 12/05/22 18:58 Urine Mucus 2+ /hpf 12/05/22 18:58 Influenza Type A Ag negative (Negative) 12/05/22 17:10 Influenza Type B Ag negative (Negative) 12/05/22 17:10 SARS-CoV-2 Ag (Rapid) negative (Negative) 12/05/22 17:10 Discharge Plan Discharge Patient Disposition: Admitted As Inpatient Clinical Impression: Acute exacerbation of chronic obstructive airways disease, Fever, Tachypnea Condition: Stable Prescriptions: No Action Aspercreme (lidocaine HCl) 4 % liquid roll-on See Rx Instructions topical .COMPLEX Qty: 73 0RF Rx Instructions: apply to affected painful area of abdomen topically up to qid as needed metoclopramide HCl 10 mg tablet 10 mg PO QID PRN (Reason: nausea and vomiting) Qty: 120 1RF ropinirole 1 mg tablet 1 mg PO DAILY Qty: 90 1RF Victoza 3-Krishna 0.6 mg/0.1 mL (18 mg/3 mL) pen injector 1.2 mg SUBCUT DAILY 30 Days Qty: 9 2RF (DME) ReliOn Prime Test Strips Strip See Rx Instructions .Route Qty: 300 3RF Rx Instructions: As directed with Relion meter TID 90 day supply furosemide [Lasix] 40 mg tablet 40 mg PO DAILY PRN (Reason: Edema) Qty: 60 3RF Hold Instructions: Resume on 10/17/21. (DME) OneTouch Ultra Test Strip See Rx Instructions .ROUTE .COMPLEX Qty: 100 11RF Dose Instruction: DIRECTED, CHECK SUGARS DAILY FASTING AND OCCASIONALLY ONE HOUR POST MEAL INSTEAD OF FASTING E11.9 Rx Instructions: DIRECTED, CHECK SUGARS DAILY FASTING AND OCCASIONALLY ONE HOUR POST MEAL INSTEAD OF FASTING E11.9 carvedilol 12.5 mg tablet 12.5 mg PO BID Qty: 180 3RF losartan 100 mg tablet 100 mg PO QAM Qty: 90 3RF pantoprazole 40 mg tablet,delayed release (DR/EC) 40 mg PO DAILY Qty: 90 3RF isosorbide mononitrate 30 mg tablet extended release 24 hr 30 mg PO DAILY Qty: 90 3RF clopidogrel 75 mg tablet 75 mg PO DAILY Qty: 90 3RF (DME) insulin syringe-needle U-100 [BD Insulin Syringe Ultra-Fine] 1 mL 31 gauge x 5/16 syringe See Rx Instructions .ROUTE .COMPLEX Qty: 100 3RF Dose Instruction: DIRECTED Rx Instructions: DIRECTED amlodipine 10 mg tablet 10 mg PO DAILY Qty: 90 3RF metformin 1,000 mg tablet 1,000 mg PO BID Qty: 180 3RF Hold Instructions: Resume on 06/11/21. Hold on 06/09 and 06/10. insulin glargine [Lantus U-100 Insulin] 100 unit/mL solution 25 unit SUBCUT BID Qty: 10 1RF nitroglycerin 0.4 mg Tablet, Sublingual 0.4 mg sublingual Q5M PRN (Reason: Chest Pain) Qty: 25 6RF bismuth subsalicylate [Pepto-Bismol] 262 mg/15 mL Suspension 524 mg PO Q1H PRN (Reason: Gastrointestinal Spasms Or Cramping) Rx Instructions: do not exceed 8 doses in a 24 hour period olopatadine 0.1 % Drops 1 drp OPHTHALMIC (EYE) BID PRN (Reason: unknown) Rx Instructions: separate doses by at least 6-8 hours cholecalciferol (vitamin D3) [Vitamin D3] 25 mcg (1,000 unit) Tablet 25 mcg PO DAILY Salonpas Pain Relieving Jet 10-3 % Aerosol,Ramah 1 spray TOPICAL Q4H PRN (Reason: Pain) ondansetron 4 mg tablet,disintegrating 4 mg PO Q6H PRN (Reason: nausea and vomiting) Qty: 14 0RF Miralax 17 gram powder in packet 17 g PO DAILY PRN (Reason: constipation) Qty: 14 0RF multivitamin Tablet 1 tab PO DAILY potassium chloride 10 mEq tablet extended release 10 meq PO DAILY atorvastatin 80 mg tablet 80 mg PO BEDTIME fenofibrate nanocrystallized 145 mg tablet 145 mg PO DAILY Referrals: Avtar Bruce MD [Primary Care Provider] - Coding Level of Care Code ED Teacher Early Childhood Development for Chg Kenny
[2022-12-05] MEDS: ipratropium-albuterol 3 mL Neb INHALATION (17:18)
[2022-12-05 17:29] LABS: Basophils # 0.1 10^3/uL (0.0-0.1); Basophils % 0.6 %; Eosinophils # 0.2 10^3/uL (0.0-0.8); Hematocrit 34.8 % (36-47); Lymphocytes # 0.7 10^3/uL (0.8-4.8); Lymphocytes % 8.8 %; Mean Corpuscular HGB Conc 32.8 g/dL (30-55); Mean Corpuscular Hemoglobin 29.8 pg (27-33); Mean Corpuscular Volume 90.9 fl (85-98); Mean Platelet Volume 10.2 fL (7.4-10.4); Monocytes # 0.5 10^3/uL (0.2-0.9); Monocytes % 6.1 %; Neutrophils % 82.1 %; Nucleated Red Blood Cells % 0 %; Platelet Count 273 10^3/cmm (157-399); Red Blood Count 3.83 10^6/uL (3.85-5.65); White Blood Count 8.16 10^3/uL (3.29-11.43)
[2022-12-05 17:30] LABS: ABG PCO2 34.5 mmHg (35-45); ABG PH Result 7.42 (7.35-7.45); Arterial Blood Gas Hematocrit 33.3 % (37-47); Base Excess ABG -1.9 mmol/L (-2.0-2.0); Blood Gas Allen Test Pos; Blood Gas Operator Identificat CAK; Blood Gas Sample Site Radial, left; Blood Gas Sample Type Arterial; Carboxyhemoglobin 1.1 %THgb (0.4-20.1); HCO3 ABG 22.2 mmol/L (22-26); HGB O2 Sat 96.5 % (95-100); Methemoglobin < 0.0 % (0.4-1.5); Oxygen Device NC; PO2 ABG 73.6 mmHg (80.0-100.0); Total Hemoglobin 10.9 g/dL (12-16)
[2022-12-05 17:41] LABS: INR 0.88 (0.8-1.2)
[2022-12-05] MEDS: acetaminophen 500 mg Tablet 1000 MG PO (17:41)
[2022-12-05] MEDS: methylPREDNISolone sod succ 125 MG in water for injection-sterile 2 ML 24 MG IVP (17:41)
[2022-12-05 17:42] LABS: Influenza A by IFA negative (Negative); Influenza B by IFA negative (Negative); SARS Covid-2 Antigen negative (Negative)
[2022-12-05 17:47] LABS: Lactic Sepsis W/Reflex 1.7 mmol/L (0.5-2.2)
[2022-12-05 17:57] LABS: Alanine Aminotransferase 8 U/L (0-33); Albumin Level 4.3 g/dL (3.5-5.2); Alkaline Phosphatase 54 U/L (35-105); Anion Gap 14.4 (5-19); Aspartate Amino Transferase 11 U/L (0-32); Blood Urea Nitrogen 10 mg/dL (8-23); Calcium 8.9 mg/dL (8.5-10.5); Carbon Dioxide 25 mmol/L (22-29); Chloride 101 mmol/L (98-107); Globulin 3.2 g/dL (1.3-4.6); Glucose 311 mg/dL (65-115); NT Pro B Type Natriuretic Pept 1651 pg/mL (0-125); Osmolality Calculated 293 mOsm/kg (285-295); Potassium 4.4 mmol/L (3.5-5.1); Sodium 136 mmol/L (136-145); Total Bilirubin 0.3 mg/dL (0.15-1.2); Total Protein 7.5 g/dL (6.6-8.7)
[2022-12-05] MEDS: cefTRIAXone 1,000 MG in sodium chloride 0.9% (plus) 50 ML 100 MG IV (18:11)
[2022-12-05 19:11] LABS: Add Urine Culture? No; Add Urine Microscopic? YES; Bacteria Urine TRACE /hpf; Bilirubin Urine Neg (Negative); Blood Urine Neg (Negative); Glucose Urine UA 4+ (Normal); Ketones Urine Negative (Negative); Leukocyte Esterase Urine Negative (Negative); Mucus Urine 2+ /hpf; Nitrate Urine Negative (Negative); Protein Urine 2+ (Negative); RBC Urine 0-4 /hpf (0-2); Specific Gravity, Urine 1.015 (1.005-1.030); Urine Appearance Clear (CLEAR); Urine Color Yellow (Yellow); Urobilinogen Urine Norm (Negative); pH Urine 6 (5-7)
[2022-12-05] MEDS: azithromycin 500 MG in sodium chloride 0.9% 250 ML 250 MG IV (20:07)
--- NOTE | 2022-12-05 21:10 | CTR_ITS ---
PROCEDURE INFORMATION: Exam: CTA Chest With Contrast Exam date and time: 12/05/2022 9:36 PM Age: 72 years old Clinical indication: Dyspnea and shortness of breath; Additional info: Dyspnea, tachypnea, resp failure TECHNIQUE: Imaging protocol: Computed tomographic angiography of the chest with contrast. Exam focused on the arteries. 3D rendering (Not supervised by radiologist): MIP and/or 3D reconstructed images were created by the technologist. Radiation optimization: All CT scans at this facility use at least one of these dose optimization techniques: automated exposure control; mA and/or kV adjustment per patient size (includes targeted exams where dose is matched to clinical indication); or iterative reconstruction. Contrast material: OMNI 350; Contrast volume: 100 ml; Contrast route: INTRAVENOUS (IV); REPORTING DATA: Count of CT and Cardiac NM exams in prior 12 months: This patient has received 2 known CTs and 0 known cardiac nuclear medicine studies in the 12 months prior to the current study. COMPARISON: 1. CT angio chest PE protcl [id number] 04/11/2021 3:[address] angio chest w abd pel w con 03/22/2021 12:[address] chest w con* [id number] 02/28/2021 3:50 PM RADIATION DOSE METRICS: Total DLP (mGy-cm): 439 FINDINGS: Pulmonary arteries: Dilatation with the main trunk measuring up to 3.3 cm. No evidence of acute pulmonary emboli. Thin linear hypodensity at the right lower lobe pulmonary artery is stable in keeping with chronic web, axial images [id number] of series 6. Aorta: Moderate systemic atherosclerotic calcification without aortic aneurysm. No aortic dissection. Thyroid: Subcentimeter thyroid nodules and calcification require no dedicated imaging follow-up. Lungs: Bilateral calcified granulomata. Platelike atelectasis versus scarring at the perifissural right middle lobe and lingula. No consolidation. No mass. Pleural spaces: Unremarkable. No pneumothorax. No pleural effusion. Heart: Mild aortic valve and mitral annular calcification. No cardiomegaly. No pericardial effusion. Coronary arteries: Moderate to heavy coronary artery calcification. Lymph nodes: Prominent mediastinal and [id number]-left hilar lymph nodes overall similar to decreased from 2020. Partially calcified mediastinal and bilateral hilar lymph nodes in keeping with sequela of old granulomatous disease. Liver: Tiny hepatic calcifications in keeping with sequela of old granulomatous disease. Spleen: Small splenic calcifications in keeping with sequela of old granulomatous disease. Bones/joints: No acute fracture. Mild degenerative changes along the spine. Soft tissues: Unremarkable. CT/CT angio chest PE protcl [id number] IMPRESSION: 1. No acute findings. 2. 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 May be seen in the setting of pulmonary arterial hypertension. 3. Additional chronic and incidental findings as above, to include atherosclerosis with moderate to heavy coronary artery calcification. COMMENTS: Consistent with the [employer]'s Incidental Findings Committee white paper (J Am Sandra Radiol 2015): In patients aged 35 years and older with an incidental thyroid nodule equal to or greater than 1.[address], MRI or extrathyroidal US, further evaluation with dedicated thyroid US is recommended for patients with normal life expectancy and without comorbidities. For smaller nodules without suspicious features, no further evaluation or follow up is recommended.
[2022-12-05] MEDS: iohexol 350 mg/mL 500 mL Btl (per mL) IV (21:44)
--- NOTE | 2022-12-05 22:13 | PM.HP ---
Providers/Chief Complaint Primary Care Provider: Avtar Bruce MD Chief Complaint: Resp Distress History of Present Illness Lady López is a 72 year old female with a past medical history of hypertension, diabetes, COPD, typically on 3 L/min supplemental O2 who presented to the emergency room due to worsening shortness of breath over the past 3 to 4 days. She has been febrile, Tmax 102 Fahrenheit noted here. She reports an increased cough and sputum production over the same timeframe. No hemoptysis. No chest pain, palpitations or syncope. Noted to have diffuse wheezing on exam today. Review of Systems General: Reports: 10 or more systems reviewed and unremarkable except in HPI and below Const: Denies: fever(s), chills or body aches Eyes: Denies: change in vision, blurry vision or photophobia ENMT: Reports: hoarseness; Denies: throat pain, enlarged tonsils, odynophagia or nasal congestion Card: Denies: chest pain, palpitations, irregular heart rhythm, edema, swelling of feet/ankles, lightheadedness, pre-syncope, dyspnea on exertion or orthopnea Resp: Denies: dyspnea, productive cough, non-productive cough, wheezing, stridor, pain on inspiration, change in phlegm color, hemoptysis or chest congestion GI: Denies: abdominal pain, nausea, vomiting, hematemesis, coffee ground emesis, dysphagia, heartburn, diarrhea, constipation, GI cramping, change in stool character, hematochezia or melena : Denies: flank pain, difficulty voiding, dysuria, urinary frequency, urinary urgency, urinary hesitancy or hematuria Musc: Denies: neck pain, back pain, extremity pain, joint swelling, joint warmth or deformity Neuro: Denies: headache(s), numbness in extremities, weakness in extremities, sensory changes, difficulty walking, frequent falls, dizziness, vertigo, behavioral changes, Slurred speech present or seizure-like activity Psych: Denies: anxiety, depression, suicidal ideation or homicidal ideation Endo: Denies: polyuria, polydipsia, tired all the time, cold intolerance or hot flashes Ervin/Lymph: Denies: easy bruising or easy bleeding Medications/Allergies Home Medications Medication Instructions Recorded Confirmed Last Taken Type nitroglycerin 0.4 mg sublingual 0.4 mg sublingual Q5M PRN Chest 06/09/21 12/01/22 Unknown Rx tablet Pain #25 tabs blood sugar diagnostic (ReliOn #300 ea 10/05/21 12/01/22 Unknown Rx Prime Test Strips) bismuth subsalicylate 262 mg/15 mL 524 mg PO Q1H PRN Gastrointestinal 10/12/21 12/01/22 Unknown History oral suspension (Pepto-Bismol) Spasms Or Cramping cholecalciferol (vitamin D3) 25 25 mcg PO DAILY 10/12/21 12/01/22 Unknown History mcg (1,000 unit) tablet (Vitamin D3) methyl salicylate-menthol 10 %-3 % 1 spray topical Q4H PRN Pain 10/12/21 12/01/22 Unknown History topical spray (Salonpas Pain Relieving Jet) olopatadine 0.1 % eye drops 1 drp ophthalmic (eye) BID PRN 10/12/21 12/01/22 Unknown History unknown furosemide 40 mg tablet (Lasix) 40 mg PO DAILY PRN Edema #60 tabs 11/22/21 12/01/22 Unknown Rx blood sugar diagnostic (OneTouch #100 strips 02/20/22 12/01/22 Unknown Rx Ultra Test strips) lidocaine HCl 4 % topical liquid See Rx Instructions topical 03/21/22 12/01/22 Unknown Rx roll-on (Aspercreme (lidocaine .COMPLEX #73 mL HCl)) carvedilol 12.5 mg tablet 12.5 mg PO BID #180 tabs 04/04/22 12/01/22 Unknown Rx losartan 100 mg tablet 100 mg PO QAM for bp #90 tabs 04/04/22 12/01/22 Unknown Rx pantoprazole 40 mg tablet,delayed 40 mg PO DAILY for stomach #90 tabs 04/04/22 12/01/22 Unknown Rx release isosorbide mononitrate 30 mg 30 mg PO DAILY #90 tabs 04/07/22 12/01/22 Unknown Rx tablet,extended release 24 hr clopidogrel 75 mg tablet 75 mg PO DAILY #90 tabs 04/25/22 12/01/22 Unknown Rx atorvastatin 80 mg tablet 80 mg PO BEDTIME 05/17/22 12/01/22 Unknown History fenofibrate nanocrystallized 145 145 mg PO DAILY 05/17/22 12/01/22 Unknown History mg tablet multivitamin 1 tab PO DAILY 05/17/22 12/01/22 Unknown History potassium chloride 10 mEq 10 meq PO DAILY 05/17/22 12/01/22 Unknown History tablet,extended release insulin syringe-needle U-100 1 mL #100 ea 06/21/22 12/01/22 Unknown Rx 31 gauge x 5/16 (BD Insulin Syringe Ultra-Fine) amlodipine 10 mg tablet 10 mg PO DAILY #90 tabs 07/10/22 12/01/22 Unknown Rx metformin 1,000 mg tablet 1,000 mg PO BID #180 tabs 07/10/22 12/01/22 Unknown Rx ondansetron 4 mg disintegrating 4 mg PO Q6H PRN nausea and 10/17/22 12/01/22 Unknown Rx tablet vomiting #14 tabs polyethylene glycol 3350 17 gram 17 g PO DAILY PRN constipation #14 10/17/22 12/01/22 Unknown Rx oral powder packet (Miralax) ea metoclopramide HCl 10 mg tablet 10 mg PO QID PRN nausea and 11/03/22 12/01/22 Unknown Rx vomiting #120 tabs insulin glargine 100 unit/mL 25 unit (0.25 mL) SUBCUT BID #10 mL 11/22/22 12/01/22 Unknown Rx subcutaneous solution (Lantus U-100 Insulin) liraglutide 0.6 mg/0.1 mL (18 mg/3 1.2 mg (0.2 mL) SUBCUT DAILY 30 12/01/22 12/01/22 Unknown Rx mL) subcutaneous pen injector days #9 mL (Victoza 3-Krishna) ropinirole 1 mg tablet 1 mg PO DAILY #90 tabs 12/01/22 12/01/22 Unknown Rx Allergies Allergy/AdvReac Type Severity Reaction Status Date / Time codeine Allergy Unknown ADR-Diarrhe Verified 12/05/22 16:54 a tetanus and diphtheria Allergy Unknown Unknown Verified 12/05/22 16:54 toxoids atorvastatin Allergy ADR-Faintin Verified 12/05/22 16:54 g PFSH Acute PFSH: Medical History Altered mental status Arthritis Asthma Atherosclerosis of coronary artery Diabetes DKA (diabetic ketoacidosis) DM type 2 (diabetes mellitus, type 2) Heart failure with preserved ejection fraction HTN (hypertension) Hyperlipidemia Hypertensive urgency Presence of stent in coronary artery in patient with coronary artery disease Pulmonary embolism Small bowel mass Surgical History Hx of cholecystectomy Family History Other Cancer Stroke Social History Smoking and tobacco status: never smoked Alcohol intake: never Substance/Drug Use: never Lives independently: Yes Household members: none Marital status: / Vitals/I&O/Wt Last Vital Signs Temp 98.5 F 12/05/22 19:47 Pulse 69 12/05/22 19:47 Resp 19 H 12/05/22 19:47 BP 169/70 12/05/22 19:47 Pulse Ox 96 12/05/22 19:47 O2 Del Method Nasal Cannula 12/05/22 19:47 O2 Flow Rate 3 12/05/22 19:47 Weight last 48 hrs Weight 95.254 kg Physical Exam Narrative: General: Chronically ill-appearing, tachypneic with respiratory rate of 25/min at the time of exam HEENT: PERRLA, pupils bilaterally equal and reactive, pallors not present Chest: Bilateral diffuse rhonchi to auscultation. CVS: S1-S2 regular, no murmurs, no tachycardia, no gallops, no rubs Abdomen: Soft, nontender, no organomegaly, bowel sounds present Neuro: No focal deficits, no facial deformity, AO x3, power 5/5 in all limbs Extremities: Healthy surgical dressing present on the right hip, mild tenderness, soft no erythema. Data 12/06/22 04:46 12/06/22 04:46 Micro: Microbiology 12/05/22 17:22 Blood Culture - Preliminary Blood SPECIMEN COLLECTED 12/05/22 17:11 Blood Culture - Preliminary Blood SPECIMEN COLLECTED A&P Assessment and plan (1) Acute exacerbation of chronic obstructive airways disease: Patient presenting to the hospital with chief complaints of fever, increased cough and shortness of breath over the past 3 to 4 days. On exam found to have significant wheezing and tachypnea on exam. Oxygen requirement earlier at 4 L/min, now back to baseline of 3 L/min at the time of my assessment. CTA of the chest negative for PE, noted pulmonary diet. Right lower lobe particularly with, thought to be chronic sequelae of prior thromboembolism versus pulmonary hypertension. Respiratory viral panel positive for enterovirus/rhinovirus. Overall clinical impression is that of acute on chronic COPD exacerbation as a result of acute viral bronchitis by enterovirus. Start dexamethasone 6mg IVP every 12 hours duoneb q6h, budesonide q12h scheduled nebulizations empiric CTX and azithromycin for possibility of superadded bacterial bronchitis ABG with chronic hypoxic respiratory failure Chronic Guirgius to be volume overloaded, change p.o. Lasix to 40 mg IV Lasix every 24 hours (2) Acute bronchitis: (3) Enterovirus infection: Plan Diabetes mellitus: High-dose insulin sliding scale while in the hospital Hypertension: Continue amlodipine, carvedilol, losartan, History of CAD: Continue Plavix 75 mg p.o. daily, isosorbide, carvedilol DVT prophylaxis: Lovenox 40mg s/c PUD ppx: protonix 40 Full code Attestations Medical Necessity Statement*: Greater than 2 midnight admission is anticipated for acute on chronic bronchitis, need for IV steroids, [id number] nebulization, IV diuresis with Lasix. Coding Level of Care Code Acute Code for [facility] Fwd Diagnoses Acute exacerbation of chronic obstructive airways disease J44.1 Acute bronchitis J20.9 Enterovirus infection B34.1
[2022-12-05] MEDS: enoxaparin 40 mg/0.4 mL Syringe SUBCUT (23:22)
[2022-12-05] MEDS: dexamethasone 4 mg/mL INJ 6 MG IVP (23:22)
--- NOTE | 2022-12-05 23:25 | PC.NURSE ---
Patient does not have home medication list with her and does not know them. Unable to complete med rec at this time.
--- NOTE | 2022-12-05 23:31 | PC.NURSE ---
Dr. Morris notified of blood sugar of 348 and notified that patient does not have any insulin ordered.
[2022-12-05 23:38] LABS: Glucose Point of Care 348 mg/dL (70-110)
[2022-12-06] VITALS (16 sets, daily range): BP systolic 123–184; BP diastolic 68–75; PULSE 63–86; RESP 16–23; TEMP 36.2–36.6; O2SAT 96–98
[2022-12-06 00:59] LABS: Adenovirus Not Detected (NOT DETECT); Chlamydia Pneumoniae Not Detected (NOT DETECT); Coronavirus 229E,HKU1,NL63,OC4 Not Detected (NOT DETECT); Human Metapneumovirus Not Detected (NOT DETECT); Human Rhinovirus/Enterovirus Detected (NOT DETECT); Influenza A Not Detected (NOT DETECT); Influenza A H1 Not Detected (NOT DETECT); Influenza A H1-2009 Not Detected (NOT DETECT); Influenza A H3 Not Detected (NOT DETECT); Influenza B Not Detected (NOT DETECT); Mycoplasma Pneumoniae Not Detected (NOT DETECT); Parainfluenza Virus Type 1 Not Detected (NOT DETECT); Parainfluenza Virus Type 2 Not Detected (NOT DETECT); Parainfluenza Virus Type 3 Not Detected (NOT DETECT); Parainfluenza Virus Type 4 Not Detected (NOT DETECT); Respiratory Syncytial Virus A Not Detected (NOT DETECT); Respiratory Syncytial Virus B Not Detected (NOT DETECT); SARS-COV-2 Not Detected (NOT DETECT)
[2022-12-06] MEDS: ipratropium-albuterol 3 mL Neb INHALATION ×4 (01:56→20:33)
[2022-12-06 04:55] LABS: Basophils % 0.3 %; Hematocrit 32.4 % (36-47); Lymphocytes # 0.3 10^3/uL (0.8-4.8); Lymphocytes % 5.4 %; Mean Corpuscular HGB Conc 32.7 g/dL (30-55); Mean Corpuscular Hemoglobin 29.7 pg (27-33); Mean Corpuscular Volume 90.8 fl (85-98); Mean Platelet Volume 10.5 fL (7.4-10.4); Monocytes # 0.1 10^3/uL (0.2-0.9); Monocytes % 0.8 %; Neutrophils # 5.72 10^3/uL (1.8-7.7); Neutrophils % 93.2 %; Nucleated Red Blood Cells % 0 %; Platelet Count 224 10^3/cmm (157-399); Red Blood Count 3.57 10^6/uL (3.85-5.65); Red Cell Distribution Width 12.5 % (12.1-15.1); White Blood Count 6.14 10^3/uL (3.29-11.43)
[2022-12-06 05:19] LABS: Alanine Aminotransferase 8 U/L (0-33); Albumin Level 3.8 g/dL (3.5-5.2); Alkaline Phosphatase 52 U/L (35-105); Anion Gap 15.4 (5-19); Aspartate Amino Transferase 12 U/L (0-32); Blood Urea Nitrogen 13 mg/dL (8-23); Calcium 8.7 mg/dL (8.5-10.5); Carbon Dioxide 23 mmol/L (22-29); Chloride 102 mmol/L (98-107); Globulin 2.9 g/dL (1.3-4.6); Glucose 443 mg/dL (65-115); Magnesium 2.3 mg/dL (1.7-2.3); Osmolality Calculated 299 mOsm/kg (285-295); Potassium 5.4 mmol/L (3.5-5.1); Sodium 135 mmol/L (136-145); Total Bilirubin 0.2 mg/dL (0.15-1.2); Total Protein 6.7 g/dL (6.6-8.7)
[2022-12-06 05:22] LABS: Procalcitonin 0.06 ng/mL (0-0.5)
[2022-12-06] MEDS: albuterol 2.5 mg/3 mL Neb INHALATION (06:38)
[2022-12-06 06:55] LABS: Glucose Point of Care 390 mg/dL (70-110)
[2022-12-06] MEDS: FUROsemide 10 mg/mL SDV 4mL 40 MG IVP (08:32)
[2022-12-06] MEDS: dexamethasone 4 mg/mL INJ 6 MG IVP (08:33)
[2022-12-06] MEDS: amlodipine 10 mg Tablet PO (08:35)
[2022-12-06] MEDS: isosorbide mononitrate ER 30 mg Tablet PO (08:35)
[2022-12-06] MEDS: carvedilol 12.5 mg Tablet PO ×2 (08:35→18:19)
[2022-12-06] MEDS: clopidogrel 75 mg Tablet PO (08:35)
[2022-12-06] MEDS: azithromycin 250 mg Tablet 500 MG PO (08:35)
[2022-12-06] MEDS: pantoprazole DR 40 mg Tablet PO (08:35)
[2022-12-06] MEDS: insulin lispro 100 unit/1 mL SUBCUT ×4 (08:58→21:34)
[2022-12-06] MEDS: budesonide 0.5 mg/2 mL Neb INHALATION ×2 (09:01→20:33)
--- NOTE | 2022-12-06 10:36 | PC.CHAP ---
Pastoral Care Encounter/Spiritual Assessment Type of Contact [] Declined repairer handtools visit [] Patient/Family/Request visit [] Outpatient visit [] Follow-up visit [] Physician referral [] Code/Alert [x] Routine visit [] Staff referral [] Actively dying [x] Patient sleeping [] Family support [] [] Out of room [] Palliative care [] [] Receiving care in room [] Pre-surgical visit [] Trauma [] Long length of stay [] ICU visit [] Other: Relational/Emotional Strength [x] Patient feels connected with others/family/visitors/staff [] Distress [] Loneliness/isolation [] Abandonment Spirituality of Patient [] Person of Tanja [] Attends Baptism of their Tanja [x] Believes in Prayer [] Reads Bible or Gnosticism materials [] There are Spiritual issues to be addressed [employer] Manager Interventions [x] Prayer [x] Active listening [] Non-anxious presence [] Spiritual/emotional support [] Crisis/trauma care [] Spiritual counseling [] Bereavement support [] Provided bereavement packet [] Provided Bible/devotional materials [] Provided toy/stuffed animal, coloring book to patient or family member [] Provided Communion [] Anointing/[place] [] Salvation [] Completed spiritual assessment [] Other: Impact on Illness or Injury [] Angry [] Fearful [] Anxious [] Often cries [] Exhaustion [] Unable to work [] Unable to attend cheondoism [] Unable to walk/stand [] Unable to read [] Unable to drive [] Unable to eat/drink [] Unable to sleep [] Unable to be with family [] Patient intubated [] Other: Summary Time spent with patient 10 min
[2022-12-06 11:00] LABS: Glucose Point of Care 587 mg/dL (70-110)
[2022-12-06 11:00] LABS: Glucose Point of Care 588 mg/dL (70-110)
[2022-12-06 11:20] LABS: Thyroid Stimulating Hormone 0.95 uIU/mL (0.27-4.20)
[2022-12-06] MEDS: insulin regular-human 10 UNIT in SYRINGE 1 EACH IVP (11:23)
[2022-12-06] MEDS: dextrose 50% syringe 50 mL IVP (11:28)
[2022-12-06 11:30] LABS: Vitamin B12 275 pg/mL (232-1245)
[2022-12-06] MEDS: losartan 50 mg Tablet 100 MG PO (11:41)
[2022-12-06] MEDS: insulin glargine 100 units/1 mL 25 UNIT SUBCUT ×2 (11:50→18:20)
--- NOTE | 2022-12-06 13:51 | P.PN_ITS ---
Subjective Subjective: Admitted overnight. H&P and labs appreciated. On examination today patient getting up to bedside commode without having any difficulty in breathing more than baseline. She is on her baseline status of oxygen supplementation saturating more than 95%. Denies any nausea, vomiting, headache. States she is feeling slightly better than when she came in. Tmax since admission 102.4 in the ER on presentation. Blood work appreciated for stable CBC with no leukocytosis, hemoglobin of 10.6 which is around baseline, CMP showing sodium of 135, mild hyperkalemia with potassium of 5.4, elevated blood sugar going up to 443 without anion gap, respiratory viral panel positive for rhinovirus Vitals/I&O/Wt Last Vital Signs Temp 97.2 F L 12/06/22 11:22 Pulse 67 12/06/22 13:35 Resp 18 12/06/22 13:35 BP 123/68 12/06/22 11:41 Pulse Ox 97 12/06/22 13:35 O2 Del Method Nasal Cannula 12/06/22 13:35 O2 Flow Rate 3 12/06/22 13:35 12/05/22 12/06/22 12/06/22 22:59 06:59 14:59 Intake Total 352.1 / 352.1 Balance 352.1 / 352.1 Weight last 48 hrs Weight 95.254 kg Physical Exam Narrative: General: No acute distress, chronically ill-appearing, on nasal cannula 3 L HEENT: PERRLA, pupils bilaterally equal and reactive, pallors not present Chest: Bilateral diffuse rhonchi to auscultation, bilateral bronchial breath sounds all over lung wong. CVS: S1-S2 regular, no murmurs, no tachycardia, no gallops, no rubs Abdomen: Soft, nontender, no organomegaly, bowel sounds present Neuro: No focal deficits, no facial deformity, AO x3, power 5/5 in all limbs Extremities: Healthy surgical dressing present on the right hip, mild tenderness, soft no erythema. Data 12/06/22 04:46 12/06/22 04:46 Micro: Microbiology 12/05/22 17:22 Blood Culture - Preliminary Blood SPECIMEN COLLECTED 12/05/22 17:11 Blood Culture - Preliminary Blood SPECIMEN COLLECTED A&P Assessment and plan (1) Acute exacerbation of chronic obstructive airways disease: Acute COPD exacerbation in setting of viral bronchitis. Respiratory viral panel positive for enterovirus. Appreciate CTA results. Negative for PE. Oxygen supplementation keeping saturation over 88%. Dexamethasone 6 mg IV daily. Blood sugars elevated with IV steroids so will cut down on the frequency for now. DuoNebs every 6 hour, budesonide twice daily. Incentive spirometry and flutter valve. Check sputum culture. For now continue with IV ceftriaxone and azithromycin for possible superadded bacterial infection. Check MRSA swab, procalcitonin. Last echocardiogram from 2021 showed an EF of 55% with grade 2 diastolic dysfunction with RVSP of 39 mmHg and mild MR. Patient slightly fluid overloaded. Continue with IV Lasix 40 mg daily. Strict input and output charting, daily weights. Fluid restriction up to 1500 cc. (2) Acute bronchitis: (3) Enterovirus infection: Plan Hypertension: Goal blood pressure less than 140/90 mmHg. Continue with home dose of carvedilol, amlodipine, Imdur. Restart home dose of losartan. Patient does have some mild hyperkalemia today but already getting Lasix. Hyperkalemia: D50 with 10 units of IV insulin. Recheck potassium in afternoon. Type 2 diabetes mellitus: Check A1c. Continue with home dose of Lantus 25 units twice daily. Blood sugars elevated because of steroids. Insulin sliding scale high-dose protocol. DVT prophylaxis: Lovenox 40mg s/c PUD ppx: protonix 40 Carb consistent cardiac diet Full code Attestations Medical Necessity Statement*: Requires further hospitalization for management of acute COPD exacerbation in setting of viral bronchitis from enterovirus while superadded bacterial infe ction is not ruled out Diagnoses Acute exacerbation of chronic obstructive airways disease J44.1 Acute bronchitis J20.9 Enterovirus infection B34.1
[2022-12-06 14:15] LABS: Glucose Point of Care 541 mg/dL (70-110)
[2022-12-06] MEDS: insulin lispro 100 unit/1 mL 18 UNIT SUBCUT (14:55)
[2022-12-06 16:46] LABS: Glucose Point of Care 429 mg/dL (70-110)
[2022-12-06] MEDS: cefTRIAXone 1,000 MG in sodium chloride 0.9% (plus) 50 ML 100 MG IV (18:14)
[2022-12-06 18:48] LABS: Potassium 4.3 mmol/L (3.5-5.1)
[2022-12-06 19:39] LABS: Glucose Point of Care 420 mg/dL (70-110)
[2022-12-06] MEDS: atorvastatin 40 mg Tablet 80 MG PO (20:01)
[2022-12-06] MEDS: enoxaparin 40 mg/0.4 mL Syringe SUBCUT (21:34)
[2022-12-07] VITALS (9 sets, daily range): BP systolic 133–150; BP diastolic 71–80; PULSE 58–75; RESP 16–18; TEMP 36.4–36.6; O2SAT 97–99
[2022-12-07 02:46] LABS: Glucose Point of Care 265 mg/dL (70-110)
[2022-12-07] MEDS: insulin lispro 100 unit/1 mL SUBCUT ×3 (02:46→10:33)
[2022-12-07] MEDS: ipratropium-albuterol 3 mL Neb INHALATION ×2 (03:17→08:38)
[2022-12-07 05:09] LABS: Basophils % 0.1 %; Hematocrit 30.7 % (36-47); Lymphocytes # 0.7 10^3/uL (0.8-4.8); Lymphocytes % 5.8 %; Mean Corpuscular HGB Conc 32.6 g/dL (30-55); Mean Corpuscular Hemoglobin 29.5 pg (27-33); Mean Corpuscular Volume 90.6 fl (85-98); Mean Platelet Volume 10.8 fL (7.4-10.4); Monocytes # 0.6 10^3/uL (0.2-0.9); Monocytes % 5.5 %; Neutrophils # 10.07 10^3/uL (1.8-7.7); Neutrophils % 88.1 %; Nucleated Red Blood Cells % 0 %; Platelet Count 273 10^3/cmm (157-399); Red Blood Count 3.39 10^6/uL (3.85-5.65); Red Cell Distribution Width 12.9 % (12.1-15.1); White Blood Count 11.43 10^3/uL (3.29-11.43)
[2022-12-07 05:32] LABS: Alanine Aminotransferase 7 U/L (0-33); Albumin Level 3.4 g/dL (3.5-5.2); Alkaline Phosphatase 52 U/L (35-105); Anion Gap 13.5 (5-19); Aspartate Amino Transferase 16 U/L (0-32); Blood Urea Nitrogen 33 mg/dL (8-23); Carbon Dioxide 24 mmol/L (22-29); Chloride 105 mmol/L (98-107); Globulin 2.8 g/dL (1.3-4.6); Glucose 262 mg/dL (65-115); Osmolality Calculated 302 mOsm/kg (285-295); Potassium 4.5 mmol/L (3.5-5.1); Sodium 138 mmol/L (136-145); Total Bilirubin 0.2 mg/dL (0.15-1.2); Total Protein 6.2 g/dL (6.6-8.7)
[2022-12-07 05:34] LABS: Chol HDL Ratio 3.14 mg/dL (0.0-4.40); Cholesterol 182 mg/dL (0-200); HDL Cholesterol 58 mg/dL (60-100); LDL Cholesterol Calculated 103 mg/dL (50-129); Triglycerides 104 mg/dL (0-150); VLDL Cholestrol Calculation 21 mg/dL (0-30)
[2022-12-07 05:55] LABS: Glucose Point of Care 231 mg/dL (70-110)
[2022-12-07 05:56] LABS: Folate Level 4.7 ng/mL (4.8-37.3)
[2022-12-07] MEDS: losartan 50 mg Tablet 100 MG PO (05:56)
[2022-12-07] MEDS: azithromycin 250 mg Tablet 500 MG PO (08:26)
[2022-12-07] MEDS: isosorbide mononitrate ER 30 mg Tablet PO (08:26)
[2022-12-07] MEDS: fenofibrate 145 mg Tablet PO (08:26)
[2022-12-07] MEDS: clopidogrel 75 mg Tablet PO (08:27)
[2022-12-07] MEDS: carvedilol 12.5 mg Tablet PO (08:29)
[2022-12-07] MEDS: amlodipine 10 mg Tablet PO (08:29)
[2022-12-07] MEDS: ropinirole 1 mg Tablet PO (08:29)
[2022-12-07] MEDS: pantoprazole DR 40 mg Tablet PO (08:29)
[2022-12-07] MEDS: FUROsemide 10 mg/mL SDV 4mL 40 MG IVP (08:31)
[2022-12-07] MEDS: dexamethasone 4 mg/mL INJ 6 MG IVP (08:36)
[2022-12-07] MEDS: budesonide 0.5 mg/2 mL Neb INHALATION (08:38)
[2022-12-07] MEDS: insulin glargine 100 units/1 mL 25 UNIT SUBCUT (08:40)
--- NOTE | 2022-12-07 09:31 | NM_ITS ---
WS: [id number] NUCLEAR MEDICINE VENTILATION/PERFUSION LUNG SCAN HISTORY: Chronic pe COMPARISON: Prior CTA 12/05/2022 TECHNIQUE: Ventilation: 32.7 mCi of Technetium 99 DTPA aerosol inhaled. Perfusion: 5.2 mCi of technetium 99m MAA IV. Heterogeneous deposition of radionuclide during ventilation. There are mild bilateral defects within both lungs on the ventilatory portion. During perfusion there are a few scattered defects. Some of th surinder are matched defects but the ventilatory defects are larger than the perfusion defects. IMPRESSION: Low probability of pulmonary embolism.
[2022-12-07 11:21] LABS: Glucose Point of Care 286 mg/dL (70-110)
--- NOTE | 2022-12-07 11:36 | PM.DCS ---
Discharge Providers Date of Admission: 12/05/22 22:25 Date of Discharge: December 07, 2022 Attending Provider at Admission: Maru Morris MD Attending Provider at Discharge: Troy Gayle MD Primary Care Provider: Avtar Bruce MD Diagnoses at Discharge Discharge Diagnosis (1) Acute exacerbation of chronic obstructive airways disease: Status: Acute (2) Acute bronchitis: Status: Acute (3) Enterovirus infection: Status: Acute (4) Dilation of pulmonary artery: Status: Acute Reason for Visit Reason for Visit: Resp Distress Brief History: History as per HPI: Lady López is a 72 year old female with a past medical history of hypertension, diabetes, COPD, typically on 3 L/min supplemental O2 who presented to the emergency room due to worsening shortness of breath over the past 3 to 4 days.? She has been febrile, Tmax 102 Fahrenheit noted here.? She reports an increased cough and sputum production over the same timeframe. No hemoptysis.? No chest pain, palpitations or syncope. Noted to have diffuse wheezing on exam today. Hospital Course Hospital Course Patient was admitted to the hospital further evaluation and management of hypoxic respiratory failure in setting of COPD exacerbation from viral bronchitis. On admission respiratory viral panel was done which is positive for enterovirus. She was also started on empiric antibiotics. She responded well to the treatment and has been on her baseline oxygen supplementation for last 2 days. 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 On review of her medication it seems patient was supposed to be on Eliquis for PE back in August 2021 which fell off the medication list for some reason and has not been continued. On review it does not seem patient has any history of acute blood loss anemia or intracranial hemorrhage. VQ scan was done during hospitalization for possibility of chronic thromboembolism. Eliquis has been restarted for her history of PE along with continuation of Plavix 75 mg daily for PCI back in August 2021. She has been discharged in hemodynamically stable condition on inhalation treatment, steroid taper, Eliquis has been restarted back with advised to follow-up with a primary care provider within next 2 weeks for further adjustment of antihypertensive and hypoglycemic medications. She is to review continuation of Plavix with her cardiology team on next appointment. Physical Exam Narrative: General: No acute distress, chronically ill-appearing, on nasal cannula 3 L HEENT: PERRLA, pupils bilaterally equal and reactive, pallors not present Chest: Bilateral diffuse rhonchi to auscultation, bilateral bronchial breath sounds all over lung wong. CVS: S1-S2 regular, no murmurs, no tachycardia, no gallops, no rubs Abdomen: Soft, nontender, no organomegaly, bowel sounds present Neuro: No focal deficits, no facial deformity, AO x3, power 5/5 in all limbs Extremities: Healthy surgical dressing present on the right hip, mild tenderness, soft no erythema. Discharge Data Studies Completed and Pending Completed Studies During Hospitalization Category Date Time Status CTA chest [CT angio chest PE protcl [id number]] Stat Cat Scan 12/05/22 21:10 Completed XR chest 1V portable [id number] Stat Exams 12/05/22 16:47 Completed Pending at discharge Category Date Time Status Blood Culture Stat Lab 12/05/22 17:22 Results MRSA [Methicillin Resistant S.aureu] Routine Lab 12/06/22 14:19 Ordered NM pul vent and perfus* [id number] Routine Nuc Med 12/07/22 09:31 Ordered Radiology Impressions Chest X-Ray 12/05/22 16:47 IMPRESSION: No acute findings. Chest CTA 12/05/22 21:10 IMPRESSION: 1. No acute findings. 2. 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 May be seen in the setting of pulmonary arterial hypertension. 3. Additional chronic and incidental findings as above, to include atherosclerosis with moderate to heavy coronary artery calcification. COMMENTS: Consistent with the [employer]'s Incidental Findings Committee white paper (J Am Sandra Radiol 2015): In patients aged 35 years and older with an incidental thyroid nodule equal to or greater than 1.[address], MRI or extrathyroidal US, further evaluation with dedicated thyroid US is recommended for patients with normal life expectancy and without comorbidities. For smaller nodules without suspicious features, no further evaluation or follow up is recommended. Laboratory Results WBC 11.43 10^3/uL (3.29-11.43) 12/07/22 04:25 RBC 3.39 10^6/uL (3.85-5.65) L 12/07/22 04:25 Hgb 10.00 g/dL (11.27-16.99) L 12/07/22 04:25 Hct 30.7 % (36-47) L 12/07/22 04:25 MCV 90.6 fl (85-98) 12/07/22 04:25 MCH 29.5 pg (27-33) 12/07/22 04:25 MCHC 32.6 g/dL (30-55) 12/07/22 04:25 RDW 12.9 % (12.1-15.1) 12/07/22 04:25 Plt Count 273 10^3/cmm (157-399) 12/07/22 04:25 MPV 10.8 fL (7.4-10.4) H 12/07/22 04:25 Neut % (Auto) 88.1 % 12/07/22 04:25 Lymph % (Auto) 5.8 % 12/07/22 04:25 [place] % (Auto) 5.5 % 12/07/22 04:25 Eos % (Auto) 0.0 % 12/07/22 04:25 Baso % (Auto) 0.1 % 12/07/22 04:25 Neut # (Auto) 10.07 10^3/uL (1.8-7.7) H 12/07/22 04:25 Lymph # (Auto) 0.7 10^3/uL (0.8-4.8) L 12/07/22 04:25 [place] # (Auto) 0.6 10^3/uL (0.2-0.9) 12/07/22 04:25 Eos # (Auto) 0.0 10^3/uL (0.0-0.8) 12/07/22 04:25 Baso # (Auto) 0.0 10^3/uL (0.0-0.1) 12/07/22 04:25 Nucleated RBC % (auto) 0 % 12/07/22 04:25 Nucleated RBCs # 0.0 /100WBC 12/07/22 04:25 PT 12.20 SECONDS (12.1-14.9) 12/05/22 17:11 INR 0.88 (0.8-1.2) 12/05/22 17:11 Specimen Type Arterial 12/05/22 17:19 Sample Site Radial, left 12/05/22 17:19 ABG pH 7.42 (7.35-7.45) 12/05/22 17:19 ABG pCO2 34.5 mmHg (35-45) L 12/05/22 17:19 ABG pO2 73.6 mmHg (80.0-100.0) L 12/05/22 17:19 ABG HCO3 22.2 mmol/L (22-26) 12/05/22 17:19 ABG Base Excess -1.9 mmol/L (-2.0-2.0) 12/05/22 17:19 Stephen Test Pos 12/05/22 17:19 Hematocrit 33.3 % (37-47) L 12/05/22 17:19 Hgb O2 Saturation 96.5 % (95-100) 12/05/22 17:19 Carboxyhemoglobin 1.1 %THgb (0.4-20.1) 12/05/22 17:19 Methemoglobin < 0.0 % (0.4-1.5) L 12/05/22 17:19 Total Hemoglobin 10.9 g/dL (12-16) L 12/05/22 17:19 O2 Delivery Device Nc 12/05/22 17:19 O2 Liters/Min 3.0 % 12/05/22 17:19 Foreign Languages Department Chair ID Cak 12/05/22 17:19 Sodium 138 mmol/L (136-145) 12/07/22 04:25 Potassium 4.5 mmol/L (3.5-5.1) 12/07/22 04:25 Chloride 105 mmol/L (98-107) 12/07/22 04:25 Carbon Dioxide 24 mmol/L (22-29) 12/07/22 04:25 Anion Gap 13.5 (5-19) 12/07/22 04:25 BUN 33 mg/dL (8-23) H 12/07/22 04:25 Creatinine 1.2 mg/dL (0.5-0.9) H 12/07/22 04:25 GFR Calculation Not Reportable 12/07/22 04:25 Glucose 262 mg/dL (65-115) H 12/07/22 04:25 POC Glucose 286 mg/dL (70-110) H 12/07/22 10:24 Calculated Osmolality 302 mOsm/kg (285-295) H 12/07/22 04:25 Lactic Acid 1.7 mmol/L (0.5-2.2) 12/05/22 17:11 Calcium 9.0 mg/dL (8.5-10.5) 12/07/22 04:25 Magnesium 2.3 mg/dL (1.7-2.3) 12/06/22 04:46 Total Bilirubin 0.2 mg/dL (0.15-1.2) 12/07/22 04:25 AST 16 U/L (0-32) 12/07/22 04:25 ALT 7 U/L (0-33) 12/07/22 04:25 Alkaline Phosphatase 52 U/L (35-105) 12/07/22 04:25 NT-Pro-B Natriuret Pep 1651 pg/mL (0-125) H 12/05/22 17:11 Total Protein 6.2 g/dL (6.6-8.7) L 12/07/22 04:25 Albumin 3.4 g/dL (3.5-5.2) L 12/07/22 04:25 Globulin 2.8 g/dL (1.3-4.6) 12/07/22 04:25 Triglycerides 104 mg/dL (0-150) 12/07/22 04:25 Cholesterol 182 mg/dL (0-200) 12/07/22 04:25 LDL Cholesterol, Calc 103 mg/dL (50-129) 12/07/22 04:25 Total VLDL Cholesterol 21 mg/dL (0-30) 12/07/22 04:25 HDL Cholesterol 58 mg/dL (60-100) L 12/07/22 04:25 Cholesterol/HDL Ratio 3.14 mg/dL (0.0-4.40) 12/07/22 04:25 Vitamin B12 275 pg/mL (232-1245) 12/06/22 04:46 Folate 4.7 ng/mL (4.8-37.3) L 12/07/22 04:25 Procalcitonin 0.06 ng/mL (0-0.5) 12/06/22 04:46 TSH 0.95 uIU/mL (0.27-4.20) 12/06/22 04:46 Urine Color Yellow (Yellow) 12/05/22 18:58 Urine Appearance Clear (CLEAR) 12/05/22 18:58 Urine pH 6 (5-7) 12/05/22 18:58 Ur Specific [place] 1.015 (1.005-1.030) 12/05/22 18:58 Urine Protein 2+ (Negative) H 12/05/22 18:58 Urine Glucose (UA) 4+ (Normal) H 12/05/22 18:58 Urine Ketones Negative (Negative) 12/05/22 18:58 Urine Blood Neg (Negative) 12/05/22 18:58 Urine Nitrate Negative (Negative) 12/05/22 18:58 Urine Bilirubin Neg (Negative) 12/05/22 18:58 Urine Urobilinogen Norm mg/dL (Negative) 12/05/22 18:58 Ur Leukocyte Esterase Negative (Negative) 12/05/22 18:58 Urine RBC 0-4 /hpf (0-2) H 12/05/22 18:58 Urine WBC 5-10 /hpf (0-5) H 12/05/22 18:58 Ur Squamous Epith Cells 10-15 /hpf (0-5) H 12/05/22 18:58 Amorphous Sediment Not Reportable 12/05/22 18:58 Urine Bacteria Trace /hpf (NONE) 12/05/22 18:58 Urine Mucus 2+ /hpf 12/05/22 18:58 Nasal Influ A H1 2008 PCR Not detected (NOT DETECT) 12/05/22 23:10 Adenovirus (PCR) Not detected (NOT DETECT) 12/05/22 23:10 C. pneumoniae DNA (PCR) Not detected (NOT DETECT) 12/05/22 23:10 Coronavirus 229E (PCR) Not detected (NOT DETECT) 12/05/22 23:10 Human Metapneumovir PCR Not detected (NOT DETECT) 12/05/22 23:10 Influenza A (H1) PCR Not detected (NOT DETECT) 12/05/22 23:10 Influenza A (H3) PCR Not detected (NOT DETECT) 12/05/22 23:10 Influenza Type A Ag negative (Negative) 12/05/22 17:10 Influenza Type A (PCR) Not detected (NOT DETECT) 12/05/22 23:10 Influenza Type B Ag negative (Negative) 12/05/22 17:10 Influenza Type B (PCR) Not detected (NOT DETECT) 12/05/22 23:10 M. pneumoniae (PCR) Not detected (NOT DETECT) 12/05/22 23:10 Parainfluenza 1 (PCR) Not detected (NOT DETECT) 12/05/22 23:10 Parainfluenza 2 (PCR) Not detected (NOT DETECT) 12/05/22 23:10 Parainfluenza 3 (PCR) Not detected (NOT DETECT) 12/05/22 23:10 Parainfluenza 4 (PCR) Not detected (NOT DETECT) 12/05/22 23:10 RSV Type A (PCR) Not detected (NOT DETECT) 12/05/22 23:10 RSV Type B (PCR) Not detected (NOT DETECT) 12/05/22 23:10 Entero/Rhino (PCR) Detected (NOT DETECT) A 12/05/22 23:10 SARS-CoV-2 (PCR) Not detected (NOT DETECT) 12/05/22 23:10 SARS-CoV-2 Ag (Rapid) negative (Negative) 12/05/22 17:10 Vitals Last Vital Signs Temp 97.8 F 12/07/22 11:01 Pulse 59 L 12/07/22 11:01 Resp 16 12/07/22 11:01 BP 133/71 12/07/22 11:01 Pulse Ox 99 12/07/22 11:01 O2 Del Method Nasal Cannula 12/07/22 11:01 O2 Flow Rate 3 12/07/22 08:38 Discharge Plan Discharge Patient Disposition: Home Condition: Stable Prescriptions: New azithromycin 250 mg Tablet 500 mg PO DAILY 5 Days Qty: 10 0RF Eliquis 5 mg tablet 5 mg PO BID Qty: 60 0RF prednisone 10 mg tablet See Taper PO DIRECTED Qty: 42 0RF Taper: predniSONE 60-10 60 mg Daily for 2 Days and 0 Hour 50 mg Daily for 2 Days and 0 Hour 40 mg Daily for 2 Days and 0 Hour 30 mg Daily for 2 Days and 0 Hour 20 mg Daily for 2 Days and 0 Hour 10 mg Daily for 2 Days and 0 Hour Rx Instructions: see taper instructions fluticasone furoate-vilanterol [Breo Ellipta] 100-25 mcg/dose blister with device 1 inh inhalation DAILY Qty: 60 0RF tiotropium bromide [Spiriva with HandiHaler] 18 mcg capsule, w/inhalation device 1 cap inhalation DAILY Qty: 60 0RF Rx Instructions: puncture 1 cap using device; one dose = 2 inhalations Continued Aspercreme (lidocaine HCl) 4 % liquid roll-on See Rx Instructions topical .COMPLEX Qty: 73 0RF Rx Instructions: apply to affected painful area of abdomen topically up to qid as needed metoclopramide HCl 10 mg tablet 10 mg PO QID PRN (Reason: nausea and vomiting) Qty: 120 1RF ropinirole 1 mg tablet 1 mg PO DAILY Qty: 90 1RF Victoza 3-Krishna 0.6 mg/0.1 mL (18 mg/3 mL) pen injector 1.2 mg SUBCUT DAILY 30 Days Qty: 9 2RF (DME) ReliOn Prime Test Strips Strip See Rx Instructions .Route Qty: 300 3RF Rx Instructions: As directed with Relion meter TID 90 day supply (DME) OneTouch Ultra Test Strip See Rx Instructions .ROUTE .COMPLEX Qty: 100 11RF Dose Instruction: DIRECTED, CHECK SUGARS DAILY FASTING AND OCCASIONALLY ONE HOUR POST MEAL INSTEAD OF FASTING E11.9 Rx Instructions: DIRECTED, CHECK SUGARS DAILY FASTING AND OCCASIONALLY ONE HOUR POST MEAL INSTEAD OF FASTING E11.9 carvedilol 12.5 mg tablet 12.5 mg PO BID Qty: 180 3RF losartan 100 mg tablet 100 mg PO QAM Qty: 90 3RF pantoprazole 40 mg tablet,delayed release (DR/EC) 40 mg PO DAILY Qty: 90 3RF isosorbide mononitrate 30 mg tablet extended release 24 hr 30 mg PO DAILY Qty: 90 3RF clopidogrel 75 mg tablet 75 mg PO DAILY Qty: 90 3RF (DME) insulin syringe-needle U-100 [BD Insulin Syringe Ultra-Fine] 1 mL 31 gauge x 5/16 syringe See Rx Instructions .ROUTE .COMPLEX Qty: 100 3RF Dose Instruction: DIRECTED Rx Instructions: DIRECTED amlodipine 10 mg tablet 10 mg PO DAILY Qty: 90 3RF metformin 1,000 mg tablet 1,000 mg PO BID Qty: 180 3RF Hold Instructions: Resume on 06/11/21. Hold on 06/09 and 06/10. bismuth subsalicylate [Pepto-Bismol] 262 mg/15 mL Suspension 524 mg PO Q1H PRN (Reason: Gastrointestinal Spasms Or Cramping) Rx Instructions: do not exceed 8 doses in a 24 hour period cholecalciferol (vitamin D3) [Vitamin D3] 25 mcg (1,000 unit) Tablet 25 mcg PO DAILY Salonpas Pain Relieving Jet 10-3 % Aerosol,Sedan 1 spray TOPICAL Q4H PRN (Reason: Pain) polyethylene glycol 3350 [Miralax] 17 gram powder in packet 17 g PO DAILY PRN (Reason: constipation) Qty: 14 0RF multivitamin Tablet 1 tab PO DAILY potassium chloride 10 mEq tablet extended release 10 meq PO DAILY atorvastatin 80 mg tablet 80 mg PO BEDTIME fenofibrate nanocrystallized 145 mg tablet 145 mg PO DAILY Changed furosemide [Lasix] 40 mg tablet 40 mg PO DAILY Qty: 60 3RF insulin glargine [Lantus U-100 Insulin] 100 unit/mL solution 30 unit SUBCUT BID Qty: 10 1RF Discharge Orders: Discharge Order (Routine); Ordered 12/07/22 Ordered By: Troy Gayle Referrals: Avtar Bruce MD [Primary Care Provider] - 7-10 days Discharge Diet: Cardiac and Diabetic Discharge Activity: Resume usual activity and Increase activity as tolerated Patient Instructions: Opioid Safety Activity Restrictions/Additional Instructions: Please check your blood pressure daily at home maintain a blood pressure diary and follow-up with a primary care provider within the next 10 days for further adjustment of antihypertensives. Please check your blood sugars daily at home. Your dose of Lantus has been increased to 30 units daily. Eliquis 5 mg twice daily has been restarted again. Continue taking your Plavix 75 mg daily. Please review continuation of Plavix with the primary care provider and with your machine captain on next appointment. Finish prednisone taper in next 14 days as directed. Inhaler treatment has been sent over to your pharmacy. Please continue to use inhalers daily. Continue taking Lasix 40 mg daily because of concerns for pulmonary artery dilatation and overload. She is to restrict fluid intake to less than 1500 cc, salt intake to less than 2 g daily. She was advised to check her weight daily at home. She is advised that her weight today would be her dry weight and if her body weight increases by around 5 pounds she is to take an extra dose of Lasix daily till her body weight comes down to her weight today. If she is not able to come down to her dry body weight in 1 week she is to call primary care's office for further recommendations. Patient was counseled in detail to take her medications regularly. Discharge Attestations Time Spent in Discharge Care*: greater than 30 min Specific Discharge Activities: educating patient, discussing with pcp/other providers, discussing with case reviewer/social workers/dc planners, documenting/other paperwork and evaluating patient/reviewing data Status at Discharge: Cognitive status at discharge: mildly impaired cognition, Behavioral status at discharge: cooperative, Functional status at discharge: uses cane/walker, Overall status at discharge: patient is back to baseline Quality Metrics Clinical Quality Measures [ No reported AMI, CVA or VTE this stay] Coding Level of Care Code 76961 Total time (in minutes) for Discharge: 60 Diagnoses Acute exacerbation of chronic obstructive airways disease J44.1 Acute bronchitis J20.9 Enterovirus infection B34.1 Dilation of pulmonary artery I28.8
== END 2022-12-07 14:23 | disposition home or self-care (01) | DRG 191 ==
LOC: ER 21:14 → MEDSURG 22:26
PROVIDERS: Emergency Medicine; Admitting Provider Student in an Organized Health Care Education/Training Program; Emergency Provider Emergency Medicine; PCP Family Medicine; Visit Provider Student in an Organized Health Care Education/Training Program
DX: J44.0 Chronic obstructive pulmonary disease with (acute) lower respiratory infection (principal); I50.32 Chronic diastolic (congestive) heart failure; J96.11 Chronic respiratory failure with hypoxia; B34.1 Enterovirus infection, unspecified; J20.6 Acute bronchitis due to rhinovirus; E11.9 Type 2 diabetes mellitus without complications; Z79.4 Long term (current) use of insulin; Z79.84 Long term (current) use of oral hypoglycemic drugs; Z79.02 Long term (current) use of antithrombotics/antiplatelets; Z99.81 Dependence on supplemental oxygen; I28.8 Other diseases of pulmonary vessels; Z91.148 Patient's other noncompliance with medication regimen for other reason; Z86.711 Personal history of pulmonary embolism; I11.0 Hypertensive heart disease with heart failure; I25.10 Atherosclerotic heart disease of native coronary artery without angina pectoris; J44.1 Chronic obstructive pulmonary disease with (acute) exacerbation
CPT/HCPCS: 36415; 36416; 36600; 71045; 71275; 78014; 80053; 80061; 81001; 82607; 82746; 82805; 82962; 83605; 83735; 83880; 84132; 84145; 84443; 85025; 85610; 87040; 87426; 87486; 87581; 87633; 87804; 93005; 94640; 96365; 96367; 96372; 99285; A9540; A9567; J0456; J0696; J1100; J1650; J1815; J1940; J2930; J3475; J7050; J7613; J7626; Q0144; Q9967

== ENCOUNTER 2023-01-12 14:01 | Emergency (ER) | payer MEDICAID, SELFPAY ==
[2023-01-12] VITALS (23 sets, daily range): BP systolic 172; BP diastolic 70; PULSE 60–73; RESP 13–28; TEMP 36.9; O2SAT 93–98; BMI 36.4
--- NOTE | 2023-01-12 14:11 | XR_ITS ---
WS: [id number] Exam: XR chest 1V portable [id number] Date/Time of Exam: 01/12/2023 2:19 PM Reason For Exam: short of breath Comparison 12/05/2022. The lungs are clear and fully expanded. No pleural effusions. Heart size top limits normal. The media stinum is normal in contour. Bony elements are intact. IMPRESSION: 1. No acute cardiopulmonary finding.
--- NOTE | 2023-01-12 14:17 | ECG_ITS ---
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 Measurements Intervals Mobile Rate: 63 P: 24 UT: 166 QRS: -32 QRSD: 88 T: 95 QT: 416 QTc: 428 Interpretive Statements SINUS RHYTHM LOW QRS VOLTAGE IN PRECORDIAL LEADS [QRS DEFLECTION < 1.0 mV IN CHEST LEADS] INFERIOR MYOCARDIAL INFARCTION , PROBABLY OLD [40+ ms Q WAVE AND/OR ST/T ABNORMALITY IN II/aVF] ANTEROSEPTAL MYOCARDIAL INFARCTION , PROBABLY OLD [40+ ms Q WAVE IN V1-V4] MODERATE T-WAVE ABNORMALITY, CONSIDER LATERAL ISCHEMIA [-0.1+ mV T-WAVE IN I/aVL/V5/V6] Compared to ECG 12/05/2022 17:17:26 T-wave abnormality now present Possible ischemia now present Myocardial infarct finding still present Electronically Signed On 01-12-2023 16:25:52 CDT by María Elena Baker M.D. [email or web address]
--- NOTE | 2023-01-12 14:18 | ED_ITS ---
Documented by User: Raina Genao PA-C 01/12/23 15:55 HPI - SOB/Dyspnea General: Chief Complaint: Shortness of Breath/Dyspnea Stated Complaint: DIFFICULTY BREATHING Time Seen by Provider: 01/12/23 14:11 Source: patient Mode of arrival: EMS Limitations: no limitations History of Present Illness: HPI Narrative: 72-year-old female with a history of CHF, COPD, diabetes, hypertension, GERD, and restless legs presents to the ER via EMS for increased swelling in her lower extremities for the last week and increased shortness of breath today. EMS sta henny that when they got to her house she was satting okay however she was tachypneic. Patient was breathing about 36 times per minute. Patient reports she lives at home with her cat. She does have some increased shortness of breath however that seems to have worsened since the swelling started. Patient takes 40 mg once daily of Lasix at this time. She does not do daily weight checks. She does have a nurse come in once a week for checkups. Patient reports she does have oxygen at home however does not wear it all the time. Patient reports she checks her oxygen and if it is low she puts on the O2 she has at home. Patient uses 3 L when she does use it. Review of Systems General: Reports: 10 or more systems reviewed and unremarkable except in HPI and below PFSH ED PFSH: Medical History Altered mental status Arthritis Asthma Atherosclerosis of coronary artery CHF (congestive heart failure) Diabetes Dilation of pulmonary artery DKA (diabetic ketoacidosis) DM type 2 (diabetes mellitus, type 2) GERD (gastroesophageal reflux disease) Heart failure with preserved ejection fraction HTN (hypertension) Hyperlipidemia Hypertensive urgency Presence of stent in coronary artery in patient with coronary artery disease Pulmonary embolism Restless leg syndrome Small bowel mass Surgical History Hx of cholecystectomy Family History Other Cancer Stroke Social History Smoking and tobacco/nicotine status: never used tobacco/nicotine Alcohol intake: never Substance/Drug Use: never Lives independently: Yes Household members: none Marital status: / Physical Exam Const: COMMON NORMALS: no acute distress, patient oriented x3 and alert HENMT: COMMON NORMALS: normocephalic, atraumatic, external ears normal, Normal nasal mucous membranes and turbinates present and moist oral mucous membranes HEAD & SCALP: normocephalic and atraumatic NOSE: Normal nasal mucous membranes and turbinates present EXTERNAL EAR: Yes external ears normal Eye: COMMON NORMALS: conjunctivae normal CONJUNCTIVA: Yes conjunctivae normal Lymph: LYMPHATIC: no lymphadenopathy noted Resp: COMMON NORMALS: normal respiratory effort and No retractions EFFORT & INSPECTION: Yes able to speak in complete sentences, Yes tachypneic (minimally in the ED) and No respiratory distress AUSCULTATION: no crackles, no rales, no rhonchi, no wheezes and other (chronic changes but otherwise clear bilaterally) Cardio: COMMON NORMALS: regular rate, regular rhythm and No murmurs present (Cardio) RATE: regular rate RHYTHM: regular rhythm OTHER: +3 pitting edema bilaterally GI: COMMON NORMALS: Normal to inspection, nondistended, normoactive bowel sounds present, Soft to palpation and non-tender PALPATION: Yes Soft to palpation Extremity: OTHER: +3 pitting edema bilaterally, mild erythema more on the L than the R foot. Non tender. No deformities Neuro: COMMON NORMALS: patient oriented x3 SENSORIUM/ORIENTATION: Yes alert Psych: COMMON NORMALS: mental status grossly normal, Normal thought process present and cooperative THOUGHT PROCESS: Normal thought process present Skin: COMMON NORMALS: no wounds NARRATIVE SKIN EXAM: see extremity exam Course ED course: Patient presents to the ER via EMS for increased lower extremity swelling and some increased shortness of breath. Upon arrival to her home patient was s atting okay but was tachypneic. She is noted to have significant swelling of bilateral lower extremities which she reports has been going on for 1 to 2 weeks. We will get imaging and labs at this time. We will also give patient a dose of IV Lasix. Vital Signs: Vital signs: Vital Signs Temperature 98.5 F 01/12/23 14:04 Pulse Rate 62 01/12/23 16:00 Respiratory Rate 18 01/12/23 16:00 Blood Pressure 172/70 01/12/23 14:15 Pulse Oximetry 95 01/12/23 16:00 Oxygen Delivery Me thod Room Air 01/12/23 14:04 MDM - SOB/Dyspnea Medical Decision Making Lab work is mostly unremarkable. BNP slightly elevated and potassium a little bit low. I suspect a little bit of a CHF exacerbation causing patient's swelling. We will increase her Lasix from 40 mg daily to 80 mg daily. This should help with the 3+ edema bilaterally. We will also double patient's potassium from 10-20. Patient needs to follow-up with PCP next week. Also recommended compression stockings. Avoid prolonged sitting and keep feet elevated when sitting. Discussed all of this with patient who verbalized understanding and was in agreement with the treatment plan. She has no shortness of breath today. She does have home oxygen and wears it as needed. Continue all other home medications. Return to the ER with new or worsening symptoms. Lab Data 01/12/23 14:00 01/12/23 14:00 Labs/Radiology: Laboratory Results WBC 8.56 10^3/uL (3.29-11.43) 01/12/23 14:00 RBC 3.65 10^6/uL (3.85-5.65) L 01/12/23 14:00 Hgb 10.90 g/dL (11.27-16.99) L 01/12/23 14:00 Hct 32.2 % (36-47) L 01/12/23 14:00 MCV 88.2 fl (85-98) 01/12/23 14:00 MCH 29.9 pg (27-33) 01/12/23 14:00 MCHC 33.9 g/dL (30-55) 01/12/23 14:00 RDW 13.2 % (12.1-15.1) 01/12/23 14:00 Plt Count 232 10^3/cmm (157-399) 01/12/23 14:00 MPV 10.3 fL (7.4-10.4) 01/12/23 14:00 Neut % (Auto) 70.8 % 01/12/23 14:00 Lymph % (Auto) 19.5 % 01/12/23 14:00 [place] % (Auto) 6.4 % 01/12/23 14:00 Eos % (Auto) 2.2 % 01/12/23 14:00 Baso % (Auto) 0.7 % 01/12/23 14:00 Neut # (Auto) 6.06 10^3/uL (1.8-7.7) 01/12/23 14:00 Lymph # (Auto) 1.7 10^3/uL (0.8-4.8) 01/12/23 14:00 [place] # (Auto) 0.6 10^3/uL (0.2-0.9) 01/12/23 14:00 Eos # (Auto) 0.2 10^3/uL (0.0-0.8) 01/12/23 14:00 Baso # (Auto) 0.1 10^3/uL (0.0-0.1) 01/12/23 14:00 Nucleated RBC % (auto) 0 % 01/12/23 14:00 Nucleated RBCs # 0.0 /100WBC 01/12/23 14:00 Sodium 134 mmol/L (136-145) L 01/12/23 14:00 Potassium 3.2 mmol/L (3.5-5.1) L 01/12/23 14:00 Chloride 98 mmol/L (98-107) 01/12/23 14:00 Carbon Dioxide 24 mmol/L (22-29) 01/12/23 14:00 Anion Gap 15.2 (5-19) 01/12/23 14:00 BUN 13 mg/dL (8-23) 01/12/23 14:00 Creatinine 0.9 mg/dL (0.5-0.9) 01/12/23 14:00 GFR Calculation Not Reportable 01/12/23 14:00 Glucose 171 mg/dL (65-115) H 01/12/23 14:00 Calculated Osmolality 282 mOsm/kg (285-295) L 01/12/23 14:00 Calcium 9.0 mg/dL (8.5-10.5) 01/12/23 14:00 Total Bilirubin 0.3 mg/dL (0.15-1.2) 01/12/23 14:00 AST 10 U/L (0-32) 01/12/23 14:00 ALT 9 U/L (0-33) 01/12/23 14:00 Alkaline Phosphatase 64 U/L (35-105) 01/12/23 14:00 NT-Pro-B Natriuret Pep 442 pg/mL (0-125) H 01/12/23 14:00 Total Protein 6.0 g/dL (6.6-8.7) L 01/12/23 14:00 Albumin 3.4 g/dL (3.5-5.2) L 01/12/23 14:00 Globulin 2.6 g/dL (1.3-4.6) 01/12/23 14:00 All radiology interpretation(s) finalized by discharge Critical Care Time Critical Care Time: Critical Care Time: No Discharge Plan Discharge Patient Disposition: Home Clinical Impression: Heart failure with preserved ejection fraction Qualifiers: Heart failure chronicity: chronic Qualified Code(s): I50.32 - Chronic diastolic (congestive) heart failure Condition: Stable Prescriptions: New potassium chloride 20 mEq tablet,ER particles/crystals 20 meq PO DAILY Qty: 20 0RF furosemide 40 mg tablet 80 mg PO DAILY Qty: 60 0RF Discontinued furosemide [Lasix] 40 mg tablet 40 mg PO DAILY Qty: 60 3RF potassium chloride 10 mEq tablet extended release 10 meq PO DAILY No Action tiotropium bromide [Spiriva with HandiHaler] 18 mcg capsule, w/inhalation device 1 cap inhalation DAILY Qty: 60 2RF Rx Instructions: puncture 1 cap using device; one dose = 2 inhalations Anoro Ellipta 62.5-25 mcg/actuation blister with device 1 inh inhalation DAILY Qty: 60 2RF ropinirole 2 mg tablet 2 mg PO DAILY Qty: 30 1RF Aspercreme (lidocaine HCl) 4 % liquid roll-on See Rx Instructions topical .COMPLEX Qty: 73 0RF Rx Instructions: apply to affected painful area of abdomen topically up to qid as needed Victoza 3-Krishna 0.6 mg/0.1 mL (18 mg/3 mL) pen injector 1.2 mg SUBCUT DAILY 30 Days Qty: 9 2RF (DME) ReliOn Prime Test Strips Strip See Rx Instructions .Route Qty: 300 3RF Rx Instructions: As directed with Relion meter TID 90 day supply (DME) OneTouch Ultra Test Strip See Rx Instructions .ROUTE .COMPLEX Qty: 100 11RF Dose Instruction: DIRECTED, CHECK SUGARS DAILY FASTING AND OCCASIONALLY ONE HOUR POST MEAL INSTEAD OF FASTING E11.9 Rx Instructions: DIRECTED, CHECK SUGARS DAILY FASTING AND OCCASIONALLY ONE HOUR POST MEAL INSTEAD OF FASTING E11.9 carvedilol 12.5 mg tablet 12.5 mg PO BID Qty: 180 3RF losartan 100 mg tablet 100 mg PO QAM Qty: 90 3RF pantoprazole 40 mg tablet,delayed release (DR/EC) 40 mg PO DAILY Qty: 90 3RF isosorbide mononitrate 30 mg tablet extended release 24 hr 30 mg PO DAILY Qty: 90 3RF clopidogrel 75 mg tablet 75 mg PO DAILY Qty: 90 3RF (DME) insulin syringe-needle U-100 [BD Insulin Syringe Ultra-Fine] 1 mL 31 gauge x 5/16 syringe See Rx Instructions .ROUTE .COMPLEX Qty: 100 3RF Dose Instruction: DIRECTED Rx Instructions: DIRECTED amlodipine 10 mg tablet 10 mg PO DAILY Qty: 90 3RF metformin 1,000 mg tablet 1,000 mg PO BID Qty: 180 3RF Hold Instructions: Resume on 06/11/21. Hold on 06/09 and 06/10. metoclopramide HCl 10 mg tablet 10 mg PO QID PRN (Reason: nausea and vomiting) Qty: 120 1RF Eliquis 5 mg tablet See Rx Instructions .ROUTE .COMPLEX Qty: 60 0RF Dose Instruction: TAKE 1 TABLET BY MOUTH TWICE DAILY Rx Instructions: TAKE 1 TABLET BY MOUTH TWICE DAILY bismuth subsalicylate [Pepto-Bismol] 262 mg/15 mL Suspension 524 mg PO Q1H PRN (Reason: Gastrointestinal Spasms Or Cramping) Rx Instructions: do not exceed 8 doses in a 24 hour period cholecalciferol (vitamin D3) [Vitamin D3] 25 mcg (1,000 unit) Tablet 25 mcg PO DAILY Salonpas Pain Relieving Jet 10-3 % Aerosol,[place] 1 spray TOPICAL Q4H PRN (Reason: Pain) polyethylene glycol 3350 [Miralax] 17 gram powder in packet 17 g PO DAILY PRN (Reason: constipation) Qty: 14 0RF Lantus U-100 Insulin 100 unit/mL solution 30 unit SUBCUT BID Qty: 10 1RF multivitamin Tablet 1 tab PO DAILY atorvastatin 80 mg tablet 80 mg PO BEDTIME fenofibrate nanocrystallized 145 mg tablet 145 mg PO DAILY Discharge Orders: Discharge ED (Routine); Ordered 01/12/23 Ordered By: Raina Genao Referrals: Avtar Bruce MD [Primary Care Provider] - Discharge Diet: Cardiac and Low Salt Discharge Activity: Increase activity as tolerated Patient Instructions: Opioid Safety, Pain Management Activity Restrictions/Additional Instructions: No changes in medications. Potassium has been increased to 20 mEq daily. Lasix will be doubled to 80 mg daily until follow-up with primary care doctor. El evate legs and avoid prolonged sitting. Compression stockings recommended. Return to the ER with any new or worsening symptoms. 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 [employer] Documented by User: Raheem Sorensen DO 01/16/23 10:36 HPI - SOB/Dyspnea General: Chief Complaint: Shortness of Breath/Dyspnea Stated Complaint: DIFFICULTY BREATHING Time Seen by Provider: 01/12/23 14:11 PFSH ED PFSH: Medical History Altered mental status Arthritis Asthma Atherosclerosis of coronary artery CHF (congestive heart failure) Diabetes Dilation of pulmonary artery DKA (diabetic ketoacidosis) DM type 2 (diabetes mellitus, type 2) GERD (gastroesophageal reflux disease) Heart failure with preserved ejection fraction HTN (hypertension) Hyperlipidemia Hypertensive urgency Presence of stent in coronary artery in patient with coronary artery disease Pulmonary embolism Restless leg syndrome Small bowel mass Surgical History Hx of cholecystectomy Family History Other Cancer Stroke Social History Smoking and tobacco/nicotine status: never used tobacco/nicotine Alcohol intake: never Substance/Drug Use: never Lives independently: Yes Household members: none Marital status: / Course Vital Signs: Vital signs: Vital Signs Temperature 98.5 F 01/12/23 14:04 Pulse Rate 62 01/12/23 16:00 Respiratory Rate 18 01/12/23 16:00 Blood Pressure 172/70 01/12/23 14:15 Pulse Oximetry 95 01/12/23 16:00 Oxygen Delivery Me thod Room Air 01/12/23 14:04 MDM - SOB/Dyspnea Medical Decision Making Lab work is mostly unremarkable. BNP slightly elevated and potassium a little bit low. I suspect a little bit of a CHF exacerbation causing patient's swelling. We will increase her Lasix from 40 mg daily to 80 mg daily. This should help with the 3+ edema bilaterally. We will also double patient's potassium from 10-20. Patient needs to follow-up with PCP next week. Also recommended compression stockings. Avoid prolonged sitting and keep feet elevated when sitting. Discussed all of this with patient who verbalized understanding and was in agreement with the treatment plan. She has no shortness of breath today. She does have home oxygen and wears it as needed. Continue all other home medications. Return to the ER with new or worsening symptoms. Chart reviewed and patient discussed with midlevel. Agree with assessment and plan. Lab Data 01/12/23 14:00 01/12/23 14:00 Labs/Radiology: Laboratory Results WBC 8.56 10^3/uL (3.29-11.43) 01/12/23 14:00 RBC 3.65 10^6/uL (3.85-5.65) L 01/12/23 14:00 Hgb 10.90 g/dL (11.27-16.99) L 01/12/23 14:00 Hct 32.2 % (36-47) L 01/12/23 14:00 MCV 88.2 fl (85-98) 01/12/23 14:00 MCH 29.9 pg (27-33) 01/12/23 14:00 MCHC 33.9 g/dL (30-55) 01/12/23 14:00 RDW 13.2 % (12.1-15.1) 01/12/23 14:00 Plt Count 232 10^3/cmm (157-399) 01/12/23 14:00 MPV 10.3 fL (7.4-10.4) 01/12/23 14:00 Neut % (Auto) 70.8 % 01/12/23 14:00 Lymph % (Auto) 19.5 % 01/12/23 14:00 [place] % (Auto) 6.4 % 01/12/23 14:00 Eos % (Auto) 2.2 % 01/12/23 14:00 Baso % (Auto) 0.7 % 01/12/23 14:00 Neut # (Auto) 6.06 10^3/uL (1.8-7.7) 01/12/23 14:00 Lymph # (Auto) 1.7 10^3/uL (0.8-4.8) 01/12/23 14:00 [place] # (Auto) 0.6 10^3/uL (0.2-0.9) 01/12/23 14:00 Eos # (Auto) 0.2 10^3/uL (0.0-0.8) 01/12/23 14:00 Baso # (Auto) 0.1 10^3/uL (0.0-0.1) 01/12/23 14:00 Nucleated RBC % (auto) 0 % 01/12/23 14:00 Nucleated RBCs # 0.0 /100WBC 01/12/23 14:00 Sodium 134 mmol/L (136-145) L 01/12/23 14:00 Potassium 3.2 mmol/L (3.5-5.1) L 01/12/23 14:00 Chloride 98 mmol/L (98-107) 01/12/23 14:00 Carbon Dioxide 24 mmol/L (22-29) 01/12/23 14:00 Anion Gap 15.2 (5-19) 01/12/23 14:00 BUN 13 mg/dL (8-23) 01/12/23 14:00 Creatinine 0.9 mg/dL (0.5-0.9) 01/12/23 14:00 GFR Calculation Not Reportable 01/12/23 14:00 Glucose 171 mg/dL (65-115) H 01/12/23 14:00 Calculated Osmolality 282 mOsm/kg (285-295) L 01/12/23 14:00 Calcium 9.0 mg/dL (8.5-10.5) 01/12/23 14:00 Total Bilirubin 0.3 mg/dL (0.15-1.2) 01/12/23 14:00 AST 10 U/L (0-32) 01/12/23 14:00 ALT 9 U/L (0-33) 01/12/23 14:00 Alkaline Phosphatase 64 U/L (35-105) 01/12/23 14:00 NT-Pro-B Natriuret Pep 442 pg/mL (0-125) H 01/12/23 14:00 Total Protein 6.0 g/dL (6.6-8.7) L 01/12/23 14:00 Albumin 3.4 g/dL (3.5-5.2) L 01/12/23 14:00 Globulin 2.6 g/dL (1.3-4.6) 01/12/23 14:00 Discharge Plan Discharge Patient Disposition: Home Clinical Impression: Heart failure with preserved ejection fraction Qualifiers: Heart failure chronicity: chronic Qualified Code(s): I50.32 - Chronic diastolic (congestive) heart failure Condition: Stable Prescriptions: New potassium chloride 20 mEq tablet,ER particles/crystals 20 meq PO DAILY Qty: 20 0RF furosemide 40 mg tablet 80 mg PO DAILY Qty: 60 0RF Discontinued furosemide [Lasix] 40 mg tablet 40 mg PO DAILY Qty: 60 3RF potassium chloride 10 mEq tablet extended release 10 meq PO DAILY No Action tiotropium bromide [Spiriva with HandiHaler] 18 mcg capsule, w/inhalation device 1 cap inhalation DAILY Qty: 60 2RF Rx Instructions: puncture 1 cap using device; one dose = 2 inhalations Anoro Ellipta 62.5-25 mcg/actuation blister with device 1 inh inhalation DAILY Qty: 60 2RF ropinirole 2 mg tablet 2 mg PO DAILY Qty: 30 1RF Aspercreme (lidocaine HCl) 4 % liquid roll-on See Rx Instructions topical .COMPLEX Qty: 73 0RF Rx Instructions: apply to affected painful area of abdomen topically up to qid as needed Victoza 3-Krishna 0.6 mg/0.1 mL (18 mg/3 mL) pen injector 1.2 mg SUBCUT DAILY 30 Days Qty: 9 2RF (DME) ReliOn Prime Test Strips Strip See Rx Instructions .Route Qty: 300 3RF Rx Instructions: As directed with Relion meter TID 90 day supply (DME) OneTouch Ultra Test Strip See Rx Instructions .ROUTE .COMPLEX Qty: 100 11RF Dose Instruction: DIRECTED, CHECK SUGARS DAILY FASTING AND OCCASIONALLY ONE HOUR POST MEAL INSTEAD OF FASTING E11.9 Rx Instructions: DIRECTED, CHECK SUGARS DAILY FASTING AND OCCASIONALLY ONE HOUR POST MEAL INSTEAD OF FASTING E11.9 carvedilol 12.5 mg tablet 12.5 mg PO BID Qty: 180 3RF losartan 100 mg tablet 100 mg PO QAM Qty: 90 3RF pantoprazole 40 mg tablet,delayed release (DR/EC) 40 mg PO DAILY Qty: 90 3RF isosorbide mononitrate 30 mg tablet extended release 24 hr 30 mg PO DAILY Qty: 90 3RF clopidogrel 75 mg tablet 75 mg PO DAILY Qty: 90 3RF (DME) insulin syringe-needle U-100 [BD Insulin Syringe Ultra-Fine] 1 mL 31 gauge x 5/16 syringe See Rx Instructions .ROUTE .COMPLEX Qty: 100 3RF Dose Instruction: DIRECTED Rx Instructions: DIRECTED amlodipine 10 mg tablet 10 mg PO DAILY Qty: 90 3RF metformin 1,000 mg tablet 1,000 mg PO BID Qty: 180 3RF Hold Instructions: Resume on 06/11/21. Hold on 06/09 and 06/10. metoclopramide HCl 10 mg tablet 10 mg PO QID PRN (Reason: nausea and vomiting) Qty: 120 1RF Eliquis 5 mg tablet See Rx Instructions .ROUTE .COMPLEX Qty: 60 0RF Dose Instruction: TAKE 1 TABLET BY MOUTH TWICE DAILY Rx Instructions: TAKE 1 TABLET BY MOUTH TWICE DAILY bismuth subsalicylate [Pepto-Bismol] 262 mg/15 mL Suspension 524 mg PO Q1H PRN (Reason: Gastrointestinal Spasms Or Cramping) Rx Instructions: do not exceed 8 doses in a 24 hour period cholecalciferol (vitamin D3) [Vitamin D3] 25 mcg (1,000 unit) Tablet 25 mcg PO DAILY Salonpas Pain Relieving Jet 10-3 % Aerosol,[place] 1 spray TOPICAL Q4H PRN (Reason: Pain) polyethylene glycol 3350 [Miralax] 17 gram powder in packet 17 g PO DAILY PRN (Reason: constipation) Qty: 14 0RF Lantus U-100 Insulin 100 unit/mL solution 30 unit SUBCUT BID Qty: 10 1RF multivitamin Tablet 1 tab PO DAILY atorvastatin 80 mg tablet 80 mg PO BEDTIME fenofibrate nanocrystallized 145 mg tablet 145 mg PO DAILY Discharge Orders: Discharge ED (Routine); Ordered 01/12/23 Ordered By: Raina Genao Referrals: Avtar Bruce MD [Primary Care Provider] - Discharge Diet: Cardiac and Low Salt Discharge Activity: Increase activity as tolerated Patient Instructions: Opioid Safety, Pain Management Activity Restrictions/Additional Instructions: No changes in medications. Potassium has been increased to 20 mEq daily. Lasix will be doubled to 80 mg daily until follow-up with primary care doctor. Elevate legs and avoid prolonged sitting. Compression stockings recommended. Return to the ER with any new or worsening symptoms. 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 Sasha Cox
[2023-01-12 14:21] LABS: Basophils # 0.1 10^3/uL (0.0-0.1); Basophils % 0.7 %; Eosinophils # 0.2 10^3/uL (0.0-0.8); Eosinophils % 2.2 %; Hematocrit 32.2 % (36-47); Lymphocytes # 1.7 10^3/uL (0.8-4.8); Lymphocytes % 19.5 %; Mean Corpuscular HGB Conc 33.9 g/dL (30-55); Mean Corpuscular Hemoglobin 29.9 pg (27-33); Mean Corpuscular Volume 88.2 fl (85-98); Mean Platelet Volume 10.3 fL (7.4-10.4); Monocytes # 0.6 10^3/uL (0.2-0.9); Monocytes % 6.4 %; Neutrophils # 6.06 10^3/uL (1.8-7.7); Neutrophils % 70.8 %; Nucleated Red Blood Cells % 0 %; Platelet Count 232 10^3/cmm (157-399); Red Blood Count 3.65 10^6/uL (3.85-5.65); Red Cell Distribution Width 13.2 % (12.1-15.1); White Blood Count 8.56 10^3/uL (3.29-11.43)
[2023-01-12] MEDS: FUROsemide 10 mg/mL SDV 4mL 40 MG IVP (14:38)
[2023-01-12 15:02] LABS: Alanine Aminotransferase 9 U/L (0-33); Albumin Level 3.4 g/dL (3.5-5.2); Alkaline Phosphatase 64 U/L (35-105); Anion Gap 15.2 (5-19); Aspartate Amino Transferase 10 U/L (0-32); Blood Urea Nitrogen 13 mg/dL (8-23); Carbon Dioxide 24 mmol/L (22-29); Chloride 98 mmol/L (98-107); Globulin 2.6 g/dL (1.3-4.6); Glucose 171 mg/dL (65-115); NT Pro B Type Natriuretic Pept 442 pg/mL (0-125); Osmolality Calculated 282 mOsm/kg (285-295); Potassium 3.2 mmol/L (3.5-5.1); Sodium 134 mmol/L (136-145); Total Bilirubin 0.3 mg/dL (0.15-1.2)
[2023-01-12] MEDS: potassium chloride ER 20 mEq Tablet PO (15:52)
== END 2023-01-12 16:02 | disposition home or self-care (01) ==
PROVIDERS: Emergency Provider Physician Assistant; PCP Family Medicine
DX: I11.0 Hypertensive heart disease with heart failure (principal); I50.32 Chronic diastolic (congestive) heart failure; Z79.02 Long term (current) use of antithrombotics/antiplatelets; Z79.84 Long term (current) use of oral hypoglycemic drugs; Z79.4 Long term (current) use of insulin; Z79.01 Long term (current) use of anticoagulants; I25.10 Atherosclerotic heart disease of native coronary artery without angina pectoris; E11.9 Type 2 diabetes mellitus without complications; E78.5 Hyperlipidemia, unspecified
CPT/HCPCS: 71045; 80053; 83880; 85025; 93005; 96374; 99285; J1940

== ENCOUNTER 2023-02-23 09:41 | Emergency (ER) | payer MEDICAID, SELFPAY ==
[2023-02-23 09:45] VITALS: BP 205/77; PULSE 67; RESP 18; TEMP 36.5; O2SAT 98; BMI 35.4
--- NOTE | 2023-02-23 09:51 | XR_ITS ---
WS: [id number] Portable AP upright chest, 02/23/2023 Clinical Data: dyspnea/cough Comparison: Portable chest, 02/12/2023 Findings: No nodules, masses or effusions are seen. The heart is normal. The pulmonary vascularity is not increased. No pneumonia or pneumothorax is seen. The aortic arch and descending thoracic aorta s how mild tortuosity and calcification. Impression: Atherosclerosis.
[2023-02-23 09:56] LABS: Glucose Point of Care 562 mg/dL (70-110)
[2023-02-23] MEDS: dexamethasone 10 mg/mL INJ IM ×2 (09:56→11:13)
[2023-02-23 10:01] LABS: Basophils # 0.1 10^3/uL (0.0-0.1); Basophils % 0.9 %; Eosinophils # 0.2 10^3/uL (0.0-0.8); Eosinophils % 2.1 %; Hematocrit 36.8 % (36-47); Lymphocytes # 1.6 10^3/uL (0.8-4.8); Lymphocytes % 21.3 %; Mean Corpuscular HGB Conc 35.3 g/dL (30-55); Mean Corpuscular Hemoglobin 29.2 pg (27-33); Mean Corpuscular Volume 82.7 fl (85-98); Mean Platelet Volume 11.4 fL (7.4-10.4); Monocytes # 0.4 10^3/uL (0.2-0.9); Monocytes % 4.6 %; Neutrophils # 5.34 10^3/uL (1.8-7.7); Neutrophils % 70.6 %; Nucleated Red Blood Cells % 0 %; Platelet Count 242 10^3/cmm (157-399); Red Blood Count 4.45 10^6/uL (3.85-5.65); Red Cell Distribution Width 12.2 % (12.1-15.1); White Blood Count 7.57 10^3/uL (3.29-11.43)
[2023-02-23 10:05] VITALS: PULSE 72; RESP 16; O2SAT 99
[2023-02-23] MEDS: ipratropium-albuterol 3 mL Neb INHALATION ×2 (10:05→11:32)
[2023-02-23 10:10] VITALS: PULSE 74
--- NOTE | 2023-02-23 10:10 | ED_ITS ---
HPI - SOB/Dyspnea 2 General: Chief Complaint: Shortness of Breath/Dyspnea Stated Complaint: difficulty breathing Time Seen by Provider: 02/23/23 09:49 Source: patient Mode of arrival: EMS History of Present Illness: HPI Narrative: 72-year-old female presents emergency ro om complaining of shortness of breath and dizziness began last night progressively worsened through the night. Patient has a known history of coronary disease in the last 6 to 8 months has had [address] She states she [place] oxygen at 3 L/min at home however on arrival here she is maintaining normal oxygen sat in the upper 90s on room air. Her blood sugar was markedly elevated with EMS and confirmed on arrival here. She denies chest pain she has had a little increased cough but no productive cough denies abdominal pain. MD elicited complaint: shortness of breath and cough Pertinent past history: COPD Onset (ago): hour(s) Timing: constant Exacerbating factors: exertion and coughing Relieving factors: rest and bronchodilators Known history of: COPD Associated symptoms: Reports chest congestion and cough; Deny abdominal pain, chest pain, diaphoresis, dizziness, extremity pain, fever(s), hemoptysis, lightheadedness, myalgias, nausea, orthopnea, palpitations, paresthesias, polydipsia, polyuria, rash, sense of impending doom, syncope or vomiting Review of Systems 2 Const: Denies: fever(s), chills or diaphoresis Card: Denies: chest pain, palpitations, lightheadedness, syncope or orthopnea Resp: Reports: chest congestion; Denies: dyspnea or hemoptysis GI: Denies: abdominal pain, nausea or vomiting : Denies: dysuria, urinary frequency or urinary urgency Musc: Denies: neck pain, back pain or extremity pain Skin/Breast: Denies: rash Neuro: Denies: dizziness Endo: Denies: polyuria or polydipsia PFSH ED 2 PFSH: Medical History Dilation of pulmonary artery GERD (gastroesophageal reflux disease) Restless leg syndrome Presence of stent in coronary artery in patient with coronary artery disease Heart failure with preserved ejection fraction Altered mental status Diabetes CHF (congestive heart failure) Atherosclerosis of coronary artery Hyperlipidemia Pulmonary embolism DKA (diabetic ketoacidosis) Hypertensive urgency DM type 2 (diabetes mellitus, type 2) Arthritis Asthma HTN (hypertension) Small bowel mass Surgical History Hx of cholecystectomy Family History Other Cancer Stroke Social History Smoking and tobacco/nicotine status: never used tobacco/nicotine Alcohol intake: never Substance/Drug Use: never Lives independently: Yes Household members: none Marital status: / Physical Exam 2 Const: GENERAL APPEARANCE: cooperative and comfortable O RIENTATION/CONSCIOUSNESS: Yes awake, Yes oriented to person, Yes oriented to place and Yes oriented to time HENMT: COMMON NORMALS: normocephalic, atraumatic and hearing grossly normal bilaterally HEAD & SCALP: normocephalic and atraumatic Resp: COMMON NORMALS: normal respiratory effort, No retractions and No use of accessory muscles AUSCULTATION: rhonchi and wheezes Cardio: COMMON NORMALS: regular rate, regular rhythm and No murmurs present (Cardio) RATE: regular rate RHYTHM: regular rhythm GI: COMMON NORMALS: Soft to palpation and No hepatosplenomegaly present A USCULTATION: Yes normoactive bowel sounds PALPATION: Yes Soft to palpation, No Tenderness to palpation present (GI), No Guarding due to palpation present (GI) and Yes No hepatosplenomegaly present Extremity: COMMON NORMALS: normal to inspection, capillary refill normal, no clubbing, cyanosis or edema, no calf tenderness and no pedal edema Neuro: SENSORIUM/ORIENTATION: Yes oriented to person, Yes oriented to place and Yes oriented to time Skin: COMMON NORMALS: no rashes or lesions noted GENERAL SKIN EXAM: no rashes or lesions noted Course 2 Vital Signs: Vital signs: Vital Signs Temperature 97.7 F 02/23/23 09:45 Pulse Rate 70 02/23/23 12:15 Respiratory Rate 16 02/23/23 11:30 Blood Pressure 144/66 02/23/23 12:15 Pulse Oximetry 97 02/23/23 12:15 Oxygen Delivery Me thod Room Air 02/23/23 12:15 MDM - SOB/Dyspnea Medical Decision Making Acute exacerbation of COPD and uncontrolled diabetes mellitus mild cystitis. Start oral antibiotics as well as aggressive use of nebulizers forego steroids due to concern that worsen her blood sugars at Januvia 100 mg daily follow-up with primary care within a week return visit problems Medical Records I reviewed the patient's medical records. Lab Data I reviewed the patient's lab results. 02/23/23 09:53 02/23/23 10:35 Labs/Radiology: Laboratory Results WBC 7.57 10^3/uL (3.29-11.43) 02/23/23 09:53 RBC 4.45 10^6/uL (3.85-5.65) 12 09:53 Hgb 13.00 g/dL (11.27-16.99) 02/23/23 09:53 Hct 36.8 % (36-47) 02/23/23 09:53 MCV 82.7 fl (85-98) L 02/23/23 09:53 MCH 29.2 pg (27-33) 02/23/23 09:53 MCHC 35.3 g/dL (30-55) 02/23/23 09:53 RDW 12.2 % (12.1-15.1) 02/23/23 09:53 Plt Count 242 10^3/cmm (157-399) 02/23/23 09:53 MPV 11.4 fL (7.4-10.4) H 02/23/23 09:53 Neut % (Auto) 70.6 % 02/23/23 09:53 Lymph % (Auto) 21.3 % 02/23/23 09:53 [place] % (Auto) 4.6 % 02/23/23 09:53 Eos % (Auto) 2.1 % 02/23/23 09:53 Baso % (Auto) 0.9 % 02/23/23 09:53 Neut # (Auto) 5.34 10^3/uL (1.8-7.7) 02/23/23 09:53 Lymph # (Auto) 1.6 10^3/uL (0.8-4.8) 02/23/23 09:53 [place] # (Auto) 0.4 10^3/uL (0.2-0.9) 02/23/23 09:53 Eos # (Auto) 0.2 10^3/uL (0.0-0.8) 02/23/23 09:53 Baso # (Auto) 0.1 10^3/uL (0.0-0.1) 02/23/23 09:53 Nucleated RBC % (auto) 0 % 02/23/23 09:53 Nucleated RBCs # 0.0 /100WBC 02/23/23 09:53 Specimen Type Arterial 02/23/23 10:06 Sample Site Radial, left 02/23/23 10:06 ABG pH 7.60 (7.35-7.45) H* 02/23/23 10:06 ABG pCO2 20.3 mmHg (35-45) L 02/23/23 10:06 ABG pO2 180.0 mmHg (80.0-100.0) H 02/23/23 10:06 ABG HCO3 20.0 mmol/L (22-26) L 02/23/23 10:06 ABG O2 Saturation > 100.0 02/23/23 10:06 ABG Base Excess 0.5 mmol/L (-2.0-2.0) 02/23/23 10:06 Stephen Test Pos 02/23/23 10:06 A-a O2 Gradient Not Reportable 02/23/23 10:06 Hematocrit 40.2 % (37-47) 02/23/23 10:06 Hgb O2 Saturation 98.9 % (95-100) 02/23/23 10:06 Carboxyhemoglobin 0.8 %THgb (0.4-20.1) 02/23/23 10:06 Methemoglobin 0.5 % (0.4-1.5) 02/23/23 10:06 Total Hemoglobin 13.1 g/dL (12-16) 02/23/23 10:06 Sodium 127.0 mmol/L (131-143) L 02/23/23 10:06 Potassium 4.3 mmol/L (3.5-5.0) 02/23/23 10:06 Glucose 475.0 mg/dL (70-115) H 02/23/23 10:06 Ionized Calcium 1.2 mmol/L (1.1-1.4) 02/23/23 10:06 O2 Delivery Device Cont neb 02/23/23 10:06 O2 Liters/Min 8.0 % 02/23/23 10:06 Rotating Equipment Specialist ID [place] 02/23/23 10:06 Sodium 127 mmol/L (136-145) L 02/23/23 10:35 Potassium 4.1 mmol/L (3.5-5.1) 02/23/23 10:35 Chloride 89 mmol/L (98-107) L 02/23/23 10:35 Carbon Dioxide 18 mmol/L (22-29) L 02/23/23 10:35 Anion Gap 24.1 (5-19) H 02/23/23 10:35 BUN 23 mg/dL (8-23) 02/23/23 10:35 Creatinine 1.0 mg/dL (0.5-0.9) H 02/23/23 10:35 GFR Calculation Not Reportable 02/23/23 10:35 Glucose 510 mg/dL (65-115) H* 02/23/23 10:35 POC Glucose 388 mg/dL (70-110) H 02/23/23 12:32 Calculated Osmolality 291 mOsm/kg (285-295) 02/23/23 10:35 Calcium 10.0 mg/dL (8.5-10.5) 02/23/23 10:35 Total Bilirubin 0.4 mg/dL (0.15-1.2) 02/23/23 10:35 AST 10 U/L (0-32) 02/23/23 10:35 ALT 7 U/L (0-33) 02/23/23 10:35 Alkaline Phosphatase 81 U/L (35-105) 02/23/23 10:35 Troponin T Baseline 13 ng/L (0-10) H 02/23/23 10:35 Troponin T 120 Minute 11.99 ng/L (0-10) H 02/23/23 12:16 Delta Troponin T -1.01 ABS# (0-10) L 02/23/23 12:16 Total Protein 6.9 g/dL (6.6-8.7) 02/23/23 10:35 Albumin 4.3 g/dL (3.5-5.2) 02/23/23 10:35 Globulin 2.6 g/dL (1.3-4.6) 02/23/23 10:35 Lipase 53 U/L (13-60) 02/23/23 10:35 Urine Color Yellow (Yellow) 02/23/23 10:43 Urine Appearance Hazy (CLEAR) A 02/23/23 10:43 Urine pH 8 (5-7) H 02/23/23 10:43 Ur Specific [place] 1.010 (1.005-1.030) 02/23/23 10:43 Urine Protein 1+ (Negative) H 02/23/23 10:43 Urine Glucose (UA) 4+ (Normal) H 02/23/23 10:43 Urine Ketones 1+ (Negative) H 02/23/23 10:43 Urine Blood 3+ (Negative) H 02/23/23 10:43 Urine Nitrate Negative (Negative) 02/23/23 10:43 Urine Bilirubin Neg (Negative) 02/23/23 10:43 Prot Sulfosalicylic Acd Positive (Negative) 02/23/23 10:43 Urine Urobilinogen Norm mg/dL (Negative) 02/23/23 10:43 Ur Leukocyte Esterase 2+ (Negative) H 02/23/23 10:43 Urine RBC 5-10 /hpf (0-2) H 02/23/23 10:43 Urine WBC 5-10 /hpf (0-5) H 02/23/23 10:43 Ur Squamous Epith Cells 0-4 /hpf (0-5) H 02/23/23 10:43 Amorphous Sediment Not Reportable 02/23/23 10:43 Urine Bacteria 2+ /hpf (NONE) H 02/23/23 10:43 Hyaline Casts 0-4 /lpf H 02/23/23 10:43 Urine Mucus 1+ /hpf 02/23/23 10:43 Serum Ketones Negative (Negative) 02/23/23 10:35 All radiology interpretation(s) finalized by discharge Discharge Plan Discharge Patient Disposition: Home Clinical Impression: Acute exacerbation of chronic obstructive pulmonary disease, Cystitis, Diabetes Condition: Stable Prescriptions: New amoxicillin-pot clavulanate 875-125 mg tablet 1 tab PO BID Qty: 14 0RF albuterol sulfate 90 mcg/actuation HFA aerosol inhaler 2 inh INHALATION Q4H PRN (Reason: shortness of breath or wheezing) Qty: 18 0RF Januvia 100 mg tablet 100 mg PO DAILY Qty: 30 0RF No Action tiotropium bromide [Spiriva with HandiHaler] 18 mcg capsule, w/inhalation device 1 cap inhalation DAILY Qty: 60 2RF Rx Instructions: puncture 1 cap using device; one dose = 2 inhalations Anoro Ellipta 62.5-25 mcg/actuation blister with device 1 inh inhalation DAILY Qty: 60 2RF ropinirole 2 mg tablet 2 mg PO DAILY Qty: 30 1RF acetaminophen 500 mg capsule 1,000 mg PO Q6H PRN (Reason: Pain) bumetanide 2 mg tablet 2 mg PO BID Qty: 60 0RF Aspercreme (lidocaine HCl) 4 % liquid roll-on See Rx Instructions topical .COMPLEX Qty: 73 0RF Rx Instructions: apply to affected painful area of abdomen topically up to qid as needed Victoza 3-Krishna 0.6 mg/0.1 mL (18 mg/3 mL) pen injector 1.2 mg SUBCUT DAILY 30 Days Qty: 9 2RF linezolid [Zyvox] 600 mg tablet 600 mg PO Q12H 6 Days Qty: 12 0RF (DME) ReliOn Prime Test Strips Strip See Rx Instructions .Route Qty: 300 3RF Rx Instructions: As directed with Relion meter TID 90 day supply (DME) OneTouch Ultra Test Strip See Rx Instructions .ROUTE .COMPLEX Qty: 100 11RF Dose Instruction: DIRECTED, CHECK SUGARS DAILY FASTING AND OCCASIONALLY ONE HOUR POST MEAL INSTEAD OF FASTING E11.9 Rx Instructions: DIRECTED, CHECK SUGARS DAILY FASTING AND OCCASIONALLY ONE HOUR POST MEAL INSTEAD OF FASTING E11.9 carvedilol 12.5 mg tablet 12.5 mg PO BID Qty: 180 3RF pantoprazole 40 mg tablet,delayed release (DR/EC) 40 mg PO DAILY Qty: 90 3RF isosorbide mononitrate 30 mg tablet extended release 24 hr 30 mg PO DAILY Qty: 90 3RF clopidogrel 75 mg tablet 75 mg PO DAILY Qty: 90 3RF (DME) insulin syringe-needle U-100 [BD Insulin Syringe Ultra-Fine] 1 mL 31 gauge x 5/16 syringe See Rx Instructions .ROUTE .COMPLEX Qty: 100 3RF Dose Instruction: DIRECTED Rx Instructions: DIRECTED amlodipine 10 mg tablet 10 mg PO DAILY Qty: 90 3RF metformin 1,000 mg tablet 1,000 mg PO BID Qty: 180 3RF Hold Instructions: Resume on 06/11/21. Hold on 06/09 and 06/10. metoclopramide HCl 10 mg tablet 10 mg PO QID PRN (Reason: nausea and vomiting) Qty: 120 1RF bismuth subsalicylate [Pepto-Bismol] 262 mg/15 mL Suspension 524 mg PO Q1H PRN (Reason: Gastrointestinal Spasms Or Cramping) Rx Instructions: do not exceed 8 doses in a 24 hour period cholecalciferol (vitamin D3) [Vitamin D3] 25 mcg (1,000 unit) Tablet 25 mcg PO DAILY Salonpas Pain Relieving Jet 10-3 % Aerosol,[place] 1 spray TOPICAL Q4H PRN (Reason: Pain) polyethylene glycol 3350 [Miralax] 17 gram powder in packet 17 g PO DAILY PRN (Reason: constipation) Qty: 14 0RF multivitamin Tablet 1 tab PO DAILY atorvastatin 80 mg tablet 80 mg PO BEDTIME fenofibrate nanocrystallized 145 mg tablet 145 mg PO DAILY furosemide 40 mg tablet 80 mg PO DAILY potassium chloride 10 mEq tablet extended release 10 meq PO DAILY Lantus U-100 Insulin 100 unit/mL solution 25 unit SUBCUT BID losartan 100 mg tablet 100 mg PO QAM Eliquis 5 mg tablet 5 mg PO BID Discharge Orders: Discharge ED (Routine); Ordered 02/23/23 Ordered By: Raheem Sorensen Other Ambulatory Orders: DME: Nebulizer with Neb Kit (Order) Location: None Selected Ordered By: Raheem Sorensen Referrals: Avtar Bruce MD [Primary Care Provider] - Discharge Diet: Usual diet Discharge Activity: Increase activity as tolerated Patient Instructions: Opioid Safety, Pain Management Activity Restrictions/Additional Instructions: Thank you for choosing [facility] for your healthcare needs today. Please realize this is an emergency room and that we are providing you with a medical screening exam and this may not be complete and all inclusive of all the testing and or work up that you may need to determine your ailment or severity of your illness. It is very important that you follow up as instructed or that you return to the Emergency Department should you have concerns or if your condition changes or worsens in any way. You are seen today for mild exacerbation of COPD. Given your difficulty with blood sugar control did not recommend steroids instead use albuterol nebulizers every 4-6 hours as needed while awake. He also a mild bladder infection started on oral antibiotic for this. Finally blood sugars are elevated recommend to continue your metformin and add Januvia 100 mg daily follow-up with primary care doctor for further evaluation and adjustment of your medications Coding Level of Care Code ED Build Manager for Sasha Cox
[2023-02-23] MEDS: isosorbide mononitrate ER 30 mg Tablet PO (10:16)
[2023-02-23 10:17] LABS: ABG PCO2 20.3 mmHg (35-45); Arterial Blood Gas Hematocrit 40.2 % (37-47); Base Excess ABG 0.5 mmol/L (-2.0-2.0); Blood Gas Allen Test Pos; Blood Gas Operator Identificat WALCI; Blood Gas Sample Site Radial, left; Blood Gas Sample Type Arterial; Carboxyhemoglobin 0.8 %THgb (0.4-20.1); HGB O2 Sat 98.9 % (95-100); Ionized Calcium Level - ABG 1.2 mmol/L (1.1-1.4); Methemoglobin 0.5 % (0.4-1.5); Oxygen Device CONT NEB; Oxygen Saturation ABG > 100.0; Potassium Level - ABG 4.3 mmol/L (3.5-5.0); Total Hemoglobin 13.1 g/dL (12-16)
[2023-02-23] MEDS: losartan 50 mg Tablet 100 MG PO (10:17)
[2023-02-23] MEDS: amlodipine 10 mg Tablet PO (10:17)
[2023-02-23] MEDS: carvedilol 12.5 mg Tablet PO (10:17)
[2023-02-23] MEDS: clopidogrel 75 mg Tablet PO (10:17)
[2023-02-23 11:06] LABS: Ketone (Acetest) Serum Negative (Negative)
[2023-02-23 11:10] LABS: Troponin(5th) Baseline 13 ng/L (0-10)
[2023-02-23] MEDS: insulin regular-human 100 units/1 mL 20 UNIT IVP (11:13)
[2023-02-23 11:17] LABS: Glucose Point of Care 476 mg/dL (70-110)
[2023-02-23 11:19] LABS: Alanine Aminotransferase 7 U/L (0-33); Albumin Level 4.3 g/dL (3.5-5.2); Alkaline Phosphatase 81 U/L (35-105); Anion Gap 24.1 (5-19); Aspartate Amino Transferase 10 U/L (0-32); Blood Urea Nitrogen 23 mg/dL (8-23); Carbon Dioxide 18 mmol/L (22-29); Chloride 89 mmol/L (98-107); Globulin 2.6 g/dL (1.3-4.6); Lipase 53 U/L (13-60); Osmolality Calculated 291 mOsm/kg (285-295); Potassium 4.1 mmol/L (3.5-5.1); Sodium 127 mmol/L (136-145); Total Bilirubin 0.4 mg/dL (0.15-1.2); Total Protein 6.9 g/dL (6.6-8.7)
[2023-02-23 11:22] LABS: Glucose Urine UA 4+ (Normal); Protein Urine 1+ (Negative); Urine Appearance Hazy (CLEAR); Urine Color Yellow (Yellow); pH Urine 8 (5-7)
[2023-02-23 11:23] LABS: Add Urine Culture? Yes; Add Urine Microscopic? YES; Bacteria Urine 2+ /hpf; Bilirubin Urine Neg (Negative); Blood Urine 3+ (Negative); Hyaline Casts Urine 0-4 /lpf; Ketones Urine 1+ (Negative); Leukocyte Esterase Urine 2+ (Negative); Mucus Urine 1+ /hpf; Nitrate Urine Negative (Negative); Squamous Epithelial Cell Urine 0-4 /hpf (0-5); Sulfosalicylic Acid Urine Positive (Negative); Urobilinogen Urine Norm (Negative)
[2023-02-23 11:30] VITALS: PULSE 72; RESP 16; O2SAT 96
[2023-02-23 11:30] LABS: Glucose 510 mg/dL (65-115)
[2023-02-23 11:35] VITALS: BP 156/65; PULSE 73; O2SAT 100
--- NOTE | 2023-02-23 11:51 | ECG_ITS ---
[facility] Test Date: 2023-02-23 Pat Name: Lady López Department: Room: Gender: Female Delivery Mgr: : 1950 Requested By: Raheem Sommers Order Number: [id number] Kelby MD: Mckinley Stark M.D. Measurements Intervals [place] Rate: 69 P: 55 NV: 181 QRS: -43 QRSD: 86 T: 97 QT: 412 QTc: 444 Interpretive Statements SINUS RHYTHM LEFT AXIS DEVIATION [QRS AXIS < -30] POSSIBLE ANTERIOR MYOCARDIAL INFARCTION , PROBABLY OLD [30 ms Q WAVE IN V3/V4, OR R < 0.2 mV IN V4] MODERATE T-WAVE ABNORMALITY, CONSIDER LATERAL ISCHEMIA [-0.1+ mV T-WAVE IN I/aVL/V5/V6] Compared to ECG 01/12/2023 14:17:09 Left-axis deviation now present Myocardial infarct finding still present T-wave abnormality still present Possible ischemia still present Electronically Signed On 02-23-2023 16:19:57 CAR DISPATCHER by Mckinley Stark M.D. [id number]
[2023-02-23 12:15] VITALS: BP 144/66; PULSE 70; O2SAT 97
[2023-02-23 12:36] LABS: Glucose Point of Care 388 mg/dL (70-110)
[2023-02-23 12:45] LABS: Troponin 5 2HR 11.99 ng/L (0-10); Troponin 5 2HR Delta -1.01 ABS# (0-10)
== END 2023-02-23 13:52 | disposition home or self-care (01) ==
PROVIDERS: Emergency Provider Family Medicine; PCP Family Medicine
DX: J44.1 Chronic obstructive pulmonary disease with (acute) exacerbation (principal); N30.90 Cystitis, unspecified without hematuria; E11.9 Type 2 diabetes mellitus without complications; Z79.4 Long term (current) use of insulin; Z79.84 Long term (current) use of oral hypoglycemic drugs
CPT/HCPCS: 36415; 36416; 36600; 71045; 80051; 80053; 81001; 82009; 82330; 82805; 82962; 83690; 84484; 85025; 87077; 87086; 87186; 93005; 94640; 96372; 96374; 99285; J1100; J1815

== ENCOUNTER 2023-02-24 10:27 | Inpatient (IN) | payer MEDICAID, SELFPAY ==
[2023-02-24] VITALS (10 sets, daily range): BP systolic 137–172; BP diastolic 69–106; PULSE 65–78; RESP 16–19; TEMP 36.6–37; O2SAT 95–98; BMI 36.1
--- NOTE | 2023-02-24 10:30 | ECG_ITS ---
[facility] Test Date: 2023-02-24 Pat Name: Lady López Department: Room: Gender: Female Pillow Filler: : 1950 Requested By: Raheem Sommers Order Number: [id number] Kelby MD: Bassem Beauchamp M.D. Measurements Intervals [place] Rate: 69 P: 50 AK: 176 QRS: -37 QRSD: 94 T: 83 QT: 421 QTc: 453 Interpretive Statements SINUS RHYTHM LEFT AXIS DEVIATION [QRS AXIS < -30] ANTEROSEPTAL MYOCARDIAL INFARCTION , PROBABLY OLD [40+ ms Q WAVE IN V1-V4] Compared to ECG 02/23/2023 12:15:48 T-wave abnormality no longer present Possible ischemia no longer present Myocardial infarct finding still present Electronically Signed On 02-25-2023 8:34:15 MATERIAL CONTROL ASSOCIATE by Bassem Beauchamp M.D. [id number]
--- NOTE | 2023-02-24 10:30 | XRR_ITS ---
PROCEDURE INFORMATION: Exam: XR Chest Exam date and time: 02/24/2023 10:46 AM Age: 72 years old Clinical indication: Dyspnea; Additional info: Dyspnea/cough TECHNIQUE: Imaging protocol: Radiologic exam of the chest. Views: 1 view. COMPARISON: CR XR chest 1V portable [id number] 02/23/2023 9:59 AM FINDINGS: Lungs: No focal consolidation. Mild linear atelectasis in the left lower lung, unchanged. Pleural spaces: No large pleural effusion. No appreciable pneumothorax. Heart/Mediastinum: Cardiomediastinal silhouette is midline and normal in size. Vasculature: Mild calcifications of the aortic knob. Coronary artery calcifications and/or stent. Bones/joints: Osseous structures are unchanged. XR/XR chest 1V portable [id number] IMPRESSION: Mild linear atelectasis in the left lower lung, unchanged. No focal consolidation to suggest overlying pneumonia.
[2023-02-24 10:42] LABS: Basophils % 0.1 %; Eosinophils % 0.3 %; Lymphocytes # 0.9 10^3/uL (0.8-4.8); Lymphocytes % 9.6 %; Mean Corpuscular Volume 82.8 fl (85-98); Mean Platelet Volume 10.6 fL (7.4-10.4); Monocytes # 0.4 10^3/uL (0.2-0.9); Monocytes % 3.8 %; Neutrophils # 8.34 10^3/uL (1.8-7.7); Neutrophils % 85.7 %; Nucleated Red Blood Cells % 0 %; Platelet Count 327 10^3/cmm (157-399); Red Blood Count 4.59 10^6/uL (3.85-5.65); Red Cell Distribution Width 12.4 % (12.1-15.1); White Blood Count 9.73 10^3/uL (3.29-11.43)
--- NOTE | 2023-02-24 10:44 | W.ED.GENADLT ---
HPI - General Adult General: Chief complaint: General Medical Stated complaint: SOB Time Seen by Provider: 02/24/23 10:29 Source: patient Mode of arrival: ambulatory History of Present Illness: 72-year-old female returns emergency room after an ER visit yesterday. She was seen yesterday with hyperglycemia was given fluids and insulin blood sugar improved she was discharged home with a mild acute exacerbation of her COPD to use to continue on her oxygen use albuterol treatments had Januvia. She has not taken any of the prescribed medications. Blood sugar is elevated again today as her oxygen is at 1 placed back on her oxygen is at her normal baseline. When EMS first picked her up she was not on oxygen. She is resting comfortably in upper 90s saturation at home. Onset (ago): minute(s) Associated symptoms: Deny chest pain, confusion, cough, diaphoresis, decreased appetite, dyspnea, fevers/chills, headache(s), malaise, nausea, rash, palpitations, seizures, short of breath, syncope, vomiting or weakness Review of Systems Const: Denies: fever(s), chills, malaise or diaphoresis Card: Denies: chest pain, palpitations or syncope Resp: Denies: dyspnea GI: Denies: abdominal pain, nausea or vomiting : Denies: dysuria, urinary frequency or urinary urgency Musc: Denies: neck pain or back pain Skin/Breast: Denies: rash Neuro: Denies: headache(s) or confusion PFS ED PFSH: Medical History Dilation of pulmonary artery GERD (gastroesophageal reflux disease) Restless leg syndrome Presence of stent in coronary artery in patient with coronary artery disease Heart failure with preserved ejection fraction Altered mental status Diabetes CHF (congestive heart failure) Atherosclerosis of coronary artery Hyperlipidemia Pulmonary embolism DKA (diabetic ketoacidosis) Hypertensive urgency DM type 2 (diabetes mellitus, type 2) Arthritis Asthma HTN (hypertension) Small bowel mass Surgical History Hx of cholecystectomy Family History Other Cancer Stroke Social History Smoking and tobacco/nicotine status: never used tobacco/nicotine Alcohol intake: never Substance/Drug Use: never Lives independently: Yes Household members: none Marital status: / Physical Exam Const: COMMON NORMALS: no acute distress GENERAL APPEARANCE: cooperative and comfortable ORIENTATION/CONSCIOUSNESS: Yes awake, Yes oriented to person, Yes oriented to place and Yes oriented to time HENMT: COMMON NORMALS: normocephalic, atraumatic and hearing grossly normal bilaterally HEAD & SCALP: normocephalic and atraumatic Resp: COMMON NORMALS: normal respiratory effort, No retractions, No use of accessory muscles and clear to auscultation bilaterally AUSCULTATION: clear to auscultation bilaterally Cardio: COMMON NORMALS: regular rate, regular rhythm and No murmurs present (Cardio) RATE: regular rate RHYTHM: regular rhythm GI: COMMON NORMALS: Soft to palpation and No hepatosplenomegaly present AUSCULTATION: Yes normoactive bowel sounds PALPATION: Yes Soft to palpation, No Tenderness to palpation present (GI), No Guarding due to palpation present (GI) and Yes No hepatosplenomegaly present Extremity: COMMON NORMALS: normal to inspection, capillary refill normal, no clubbing, cyanosis or edema, no calf tenderness and no pedal edema Neuro: SENSORIUM/ORIENTATION: Yes oriented to person, Yes oriented to place and Yes oriented to time Skin: COMMON NORMALS: no rashes or lesions noted GENERAL SKIN EXAM: no rashes or lesions noted Course Vital Signs: Vital signs: Vital Signs Temperature 97.8 F 02/24/23 10:37 Pulse Rate 70 02/24/23 10:51 Respiratory Rate 18 02/24/23 10:51 Blood Pressure 160/84 02/24/23 10:51 Pulse Oximetry 97 02/24/23 10:51 Oxygen Delivery Me thod Room Air 02/24/23 10:51 [facility] - General Adult Medical Decision Making Admit for hyperglycemia with a mild metabolic acidosis ketones are negative. She has been given insulin and fluids. Her hyponatremia is secondary to her hyperglycemia. Discussed with hospitalist orders written. Medical Records I reviewed the patient's medical records. Lab Data I reviewed the patient's lab results. 02/24/23 10:15 02/24/23 10:15 Radiology Impressions Chest X-Ray 02/24/23 10:30 IMPRESSION: Mild linear atelectasis in the left lower lung, unchanged. No focal consolidation to suggest overlying pneumonia. Laboratory Results WBC 9.73 10^3/uL (3.29-11.43) 02/24/23 10:15 RBC 4.59 10^6/uL (3.85-5.65) 02/24/23 10:15 Hgb 13.30 g/dL (11.27-16.99) 02/24/23 10:15 Hct 38.0 % (36-47) 02/24/23 10:15 MCV 82.8 fl (85-98) L 02/24/23 10:15 MCH 29.0 pg (27-33) 02/24/23 10:15 MCHC 35.0 g/dL (30-55) 02/24/23 10:15 RDW 12.4 % (12.1-15.1) 02/24/23 10:15 Plt Count 327 10^3/cmm (157-399) D 02/24/23 10:15 MPV 10.6 fL (7.4-10.4) H 02/24/23 10:15 Neut % (Auto) 85.7 % 02/24/23 10:15 Lymph % (Auto) 9.6 % 02/24/23 10:15 [place] % (Auto) 3.8 % 02/24/23 10:15 Eos % (Auto) 0.3 % 02/24/23 10:15 Baso % (Auto) 0.1 % 02/24/23 10:15 Neut # (Auto) 8.34 10^3/uL (1.8-7.7) H 02/24/23 10:15 Lymph # (Auto) 0.9 10^3/uL (0.8-4.8) 02/24/23 10:15 [place] # (Auto) 0.4 10^3/uL (0.2-0.9) 02/24/23 10:15 Eos # (Auto) 0.0 10^3/uL (0.0-0.8) 02/24/23 10:15 Baso # (Auto) 0.0 10^3/uL (0.0-0.1) 02/24/23 10:15 Nucleated RBC % (auto) 0 % 02/24/23 10:15 Nucleated RBCs # 0.0 /100WBC 02/24/23 10:15 Sodium 122 mmol/L (136-145) L 02/24/23 10:15 Potassium 5.1 mmol/L (3.5-5.1) 02/24/23 10:15 Chloride 84 mmol/L (98-107) L 02/24/23 10:15 Carbon Dioxide 19 mmol/L (22-29) L 02/24/23 10:15 Anion Gap 24.1 (5-19) H 02/24/23 10:15 BUN 32 mg/dL (8-23) H 02/24/23 10:15 Creatinine 1.2 mg/dL (0.5-0.9) H 02/24/23 10:15 GFR Calculation Not Reportable 02/24/23 10:15 Glucose 701 mg/dL (65-115) H* 02/24/23 10:15 Calculated Osmolality 294 mOsm/kg (285-295) 02/24/23 10:15 Calcium 10.0 mg/dL (8.5-10.5) 02/24/23 10:15 Total Bilirubin 0.4 mg/dL (0.15-1.2) 02/24/23 10:15 AST 10 U/L (0-32) 02/24/23 10:15 ALT 8 U/L (0-33) 02/24/23 10:15 Alkaline Phosphatase 81 U/L (35-105) 02/24/23 10:15 Troponin T Baseline 14 ng/L (0-10) H 02/24/23 10:15 Total Protein 7.0 g/dL (6.6-8.7) 02/24/23 10:15 Albumin 4.3 g/dL (3.5-5.2) 02/24/23 10:15 Globulin 2.7 g/dL (1.3-4.6) 02/24/23 10:15 Serum Ketones Negative (Negative) 02/24/23 10:15 All radiology interpretation(s) finalized by discharge Discharge Plan Discharge Patient Disposition: Placed in Observation Clinical Impression: Hyperglycemia, COPD (chronic obstructive pulmonary disease) Coding Level of Care Code ED Manager Photo for Sasha Cox
[2023-02-24 11:03] LABS: Alanine Aminotransferase 8 U/L (0-33); Albumin Level 4.3 g/dL (3.5-5.2); Alkaline Phosphatase 81 U/L (35-105); Anion Gap 24.1 (5-19); Aspartate Amino Transferase 10 U/L (0-32); Blood Urea Nitrogen 32 mg/dL (8-23); Carbon Dioxide 19 mmol/L (22-29); Chloride 84 mmol/L (98-107); Globulin 2.7 g/dL (1.3-4.6); Osmolality Calculated 294 mOsm/kg (285-295); Potassium 5.1 mmol/L (3.5-5.1); Sodium 122 mmol/L (136-145); Total Bilirubin 0.4 mg/dL (0.15-1.2); Troponin(5th) Baseline 14 ng/L (0-10)
[2023-02-24 11:04] LABS: Glucose 701 mg/dL (65-115)
[2023-02-24] MEDS: insulin regular-human 100 units/1 mL 10 UNIT IVP (11:14)
[2023-02-24] MEDS: sodium chloride 0.9% 1,000 ML 999 ML IV (11:14)
[2023-02-24 11:30] LABS: Ketone (Acetest) Serum Negative (Negative)
--- NOTE | 2023-02-24 11:52 | PC.PHAR ---
pt states she has a home health nurse that sets her meds up but states she cant remember the name of the home health agency-pt states she gives herself her insulins pt states she uses lantus 25 units bid ext shows last filled 02/12/23 30 units bid-pt states she thinks she may also takes her victoza bid rx filled 02/09/23 1.2mg daily-pt states she was here on 02/23/23 and chasity had done her medications pt states whatever chasity put in is what she is taking-ext shows rx filled 02/09/23 30d/s for kcl 10meq daily -ext also shows 02/07/23 20d/s 20meq 3 tabs daily -
[2023-02-24 11:57] LABS: Glucose Point of Care 567 mg/dL (70-110)
[2023-02-24 11:57] LABS: Glucose Urine UA 4+ (Normal); Protein Urine Trace (Negative); Urine Appearance Clear (CLEAR); Urine Color Yellow (Yellow); pH Urine 5 (5-7)
[2023-02-24 11:58] LABS: Add Urine Culture? No; Add Urine Microscopic? YES; Bacteria Urine 1+ /hpf; Bilirubin Urine Neg (Negative); Blood Urine Neg (Negative); Ketones Urine 1+ (Negative); Leukocyte Esterase Urine Negative (Negative); Nitrate Urine Negative (Negative); Squamous Epithelial Cell Urine RARE /hpf (0-5); Urobilinogen Urine Norm (Negative); WBC Urine 0-4 /hpf (0-5)
--- NOTE | 2023-02-24 12:19 | P.HP_ITS ---
Providers/Chief Complaint 2 Primary Care Provider: Avtar Bruce MD Chief Complaint: SOB History of Present Illness Lady López is a 72 year old female With a past medical history of insulin- dependent type 2 diabetes mellitus, CAD status post stenting x 2, hyperlipidemia, history of CHF, on anticoagulant therapy, history of PE on Eliquis, who presents to [facility] due to weakness, shortness of breath, fatigue, malaise, elevated blood sugars, Patient was in [facility], 02/23/2023, for shortness of breath, chronically uses oxygen 3 L at home, was also found to have elevated blood sugars she was treated for diabetes, cystitis, COPD exacerbation. She tells me that she has been feeling short of breath for the last few weeks, increased shortness of breath with exertion, with lower extremity edema, she lives at home by herself, she tells me that overnight she continued to feel short of breath, weak fatigued, she could not pick herself up, she could not walk due to generalized weakness, no facial droop no slurring of her words, no focal weakness, denies any dysuria, no hematuria, does have a nonproductive cough, no fevers, does have chills, no lightheadedness, dizziness, no chest pain. This morning she had significant fatigue, malaise, she was worried that her blood pressure was elevated her blood sugars were high so she called EMS Review of Systems 2 Eyes: Denies: change in vision Card: Denies: chest pain Resp: Reports: dyspnea and non-productive cough GI: Denies: abdominal pain, nausea or vomiting : Denies: flank pain or difficulty voiding Musc: Denies: back pain Skin/Breast: Denies: rash Neuro: Reports: weakness in extremities and difficulty walking; Denies: headache(s), numbness in extremities, lack of coordination, frequent falls, dizziness, confusion, Slurred speech present or difficulty communicating thoughts Psych: Denies: anxiety Endo: Denies: polyuria or polydipsia Ervin/Lymph: Denies: easy bruising Medications/Allergies Home Medications Medication Instructions Recorded Confirmed Last Taken Type blood sugar diagnostic (ReliOn #300 ea 10/05/21 02/24/23 Unknown Rx Prime Test Strips) bismuth subsalicylate 262 mg/15 mL 524 mg PO Q1H PRN Gastrointestinal 10/12/21 02/24/23 Unknown History oral suspension (Pepto-Bismol) Spasms Or Cramping cholecalciferol (vitamin D3) 25 25 mcg PO DAILY 10/12/21 02/24/23 02/23/23 History mcg (1,000 unit) tablet (Vitamin D3) methyl salicylate-menthol 10 %-3 % 1 spray topical Q4H PRN Pain 10/12/21 02/24/23 Unknown History topical spray (Salonpas Pain Relieving Jet) blood sugar diagnostic (OneTouch #100 strips 02/20/22 02/24/23 Unknown Rx Ultra Test strips) lidocaine HCl 4 % topical liquid See Rx Instructions topical 03/21/22 02/24/23 Unknown Rx roll-on (Aspercreme (lidocaine .COMPLEX #73 mL HCl)) carvedilol 12.5 mg tablet 12.5 mg PO BID #180 tabs 04/04/22 02/24/23 02/23/23 Rx pantoprazole 40 mg tablet,delayed 40 mg PO DAILY for stomach #90 tabs 04/04/22 02/24/23 02/23/23 Rx release isosorbide mononitrate 30 mg 30 mg PO DAILY #90 tabs 04/07/22 02/24/23 02/23/23 Rx tablet,extended release 24 hr clopidogrel 75 mg tablet 75 mg PO DAILY #90 tabs 04/25/22 02/24/23 02/23/23 Rx atorvastatin 80 mg tablet 80 mg PO BEDTIME 05/17/22 02/24/23 02/23/23 History fenofibrate nanocrystallized 145 145 mg PO DAILY 05/17/22 02/24/23 02/23/23 History mg tablet multivitamin 1 tab PO DAILY 05/17/22 02/24/23 02/23/23 History insulin syringe-needle U-100 1 mL #100 ea 06/21/22 02/24/23 Unknown Rx 31 gauge x 5/16 (BD Insulin Syringe Ultra-Fine) amlodipine 10 mg tablet 10 mg PO DAILY #90 tabs 07/10/22 02/24/23 02/23/23 Rx metformin 1,000 mg tablet 1,000 mg PO BID #180 tabs 07/10/22 02/24/23 02/23/23 Rx polyethylene glycol 3350 17 gram 17 g PO DAILY PRN constipation #14 10/17/22 02/24/23 02/22/23 Rx oral powder packet (Miralax) ea liraglutide 0.6 mg/0.1 mL (18 mg/3 1.2 mg (0.2 mL) SUBCUT DAILY 30 12/01/22 02/24/23 02/23/23 Rx mL) subcutaneous pen injector days #9 mL (Victoza 3-Krishna) tiotropium bromide 18 mcg capsule 1 cap inhalation DAILY #60 12/20/22 02/24/23 02/22/23 Rx with inhalation device (Spiriva inhalations with HandiHaler) umeclidinium 62.5 mcg-vilanterol 1 inh inhalation DAILY #60 ea 12/20/22 02/24/23 02/22/23 Rx 25 mcg/actuation powdr for inhalation (Anoro Ellipta) ropinirole 2 mg tablet 2 mg PO DAILY #30 tabs 01/01/23 02/24/23 02/23/23 Rx metoclopramide HCl 10 mg tablet 10 mg PO QID PRN nausea and 01/02/23 02/24/23 Unknown Rx vomiting #120 tabs acetaminophen 500 mg capsule 1,000 mg PO Q6H PRN Pain 02/01/23 02/24/23 Unknown History bumetanide 2 mg tablet 2 mg PO BID #60 tabs 02/01/23 02/24/23 02/23/23 Rx linezolid 600 mg tablet (Zyvox) 600 mg PO Q12H 6 days #12 tabs 02/17/23 02/24/23 02/23/23 Rx albuterol sulfate 90 mcg/actuation 2 inh inhalation Q4H PRN shortness 02/23/23 02/24/23 Unknown Rx aerosol inhaler of breath or wheezing #18 grams amoxicillin 875 mg-potassium 1 tab PO BID #14 tabs 02/23/23 02/24/23 Unknown Rx clavulanate 125 mg tablet apixaban 5 mg tablet (Eliquis) 5 mg PO BID 02/23/23 02/24/23 02/23/23 History furosemide 40 mg tablet 80 mg PO DAILY 02/23/23 02/24/23 02/23/23 History insulin glargine 100 unit/mL 25 unit SUBCUT BID 02/23/23 02/24/23 02/23/23 History subcutaneous solution (Lantus U-100 Insulin) losartan 100 mg tablet 100 mg PO QAM 02/23/23 02/24/23 02/23/23 History potassium chloride 10 mEq 10 meq PO DAILY 02/23/23 02/24/23 02/23/23 History tablet,extended release sitagliptin phosphate 100 mg 100 mg PO DAILY #30 tabs 02/23/23 02/24/23 Unknown Rx tablet (Januvia) Allergies Allergy/AdvReac Type Severity Reaction Status Date / Time codeine Allergy Unknown ADR-Diarrhe Verified 02/23/23 10:41 a tetanus and diphtheria Allergy Unknown Unknown Verified 02/23/23 10:41 toxoids atorvastatin Allergy ADR-Faintin Verified 02/23/23 10:41 g PFSH Acute 2 PFSH: Medical History Dilation of pulmonary artery GERD (gastroesophageal reflux disease) Restless leg syndrome Presence of stent in coronary artery in patient with coronary artery disease Heart failure with preserved ejection fraction Altered mental status Diabetes CHF (congestive heart failure) Atherosclerosis of coronary artery Hyperlipidemia Pulmonary embolism DKA (diabetic ketoacidosis) Hypertensive urgency DM type 2 (diabetes mellitus, type 2) Arthritis Asthma HTN (hypertension) Small bowel mass Surgical History Hx of cholecystectomy Family History Other Cancer Stroke Social History Smoking and tobacco/nicotine status: never used tobacco/nicotine Alcohol intake: never Substance/Drug Use: never Lives independently: Yes Household members: none Marital status: / Vitals/I&O/Wt Last Vital Signs Temp 97.8 F 02/24/23 10:37 Pulse 73 02/24/23 12:10 Resp 18 02/24/23 12:10 BP 160/106 02/24/23 12:10 Pulse Ox 97 02/24/23 12:10 O2 Del Method Nasal Cannula 02/24/23 12:10 O2 Flow Rate 2 02/24/23 12:10 Physical Exam 2 Const: COMMON NORMALS: no acute distress and patient oriented x3 HENMT: COMMON NORMALS: normocephalic HEAD & SCALP: normocephalic Eye: COMMON NORMALS: Equal, round and reactive pupils present and EOMs intact bilaterally Neck/C-Spine: COMMON NORMALS: no JVD Lymph: LYMPHATIC: no lymphadenopathy noted Chest: COMMONS NORMALS: normal inspection of the chest Resp: COMMON NORMALS: normal respiratory effort, No retractions, No use of accessory muscles and clear to auscultation bilaterally AUSCULTATION: clear to auscultation bilaterally Cardio: COMMON NORMALS: no JVD, regular rate, regular rhythm, S1 normal heart sound present and S2 normal heart sound present RATE: regular rate RHYTHM: regular rhythm HEART SOUNDS: S1 normal heart sound present and S2 normal heart sound present GI: COMMON NORMALS: Normal to inspection, nondistended, normoactive bowel sounds present, Soft to palpation and non-tender PALPATION: Yes No hepatosplenomegaly present Extremity: COMMON NORMALS: no calf tenderness and no pedal edema Neuro: COMMON NORMALS: patient oriented x3, CN's II-XII intact bilaterally, moves all extremities and no focal motor deficits Psych: COMMON NORMALS: mental status grossly normal Skin: OTHER: 1+ pitting edema bilateral extremities, crackles on examination Urinary Catheter Management: Mathew: Cath Placed During This Visit: yes Urinary Catheter Date of Insertion: 02/24/23 Urinary Catheter Time of Insertion: 11:43 Data 02/24/23 10:15 02/24/23 10:15 A&P Assessment and plan (1) Diabetes: (2) Cystitis: (3) COPD (chronic obstructive pulmonary disease): (4) JEFFRY (acute kidney injury): (5) Hyperlipidemia: (6) Heart failure with preserved ejection fraction: Qualifiers: Heart failure chronicity: chronic Qualified Code(s): I50.32 - Chronic diastolic (congestive) heart failure (7) Hypertension associated with diabetes: (8) Acute UTI: (9) Hyperglycemia: (10) Non-ST elevation (NSTEMI) myocardial infarction: (11) Increased anion gap metabolic acidosis: (12) Pseudohyponatremia: (13) Acute respiratory failure with hypoxia: Plan Acute hypoxia ? Concerns for possible respiratory tract infection, possible pneumonia, continue Rocephin azithromycin, ? Does not have evidence of fluid overload, acute systolic diastolic CHF exacerbation, diuresis as below, ? Does use 3 L Respiratory tract infection, sputum cultures, blood cultures, respiratory viral panel ? Continue Rocephin azithromycin, Systolic diastolic CHF exacerbation, ? Cardiac echo ? Fluid restrictions at 1000 cc ? Bumex 1 mg every 12 hours ? Repeat cardiac echo NSTEMI ? Type I versus type II, ? Serial EKGs, short ones, telemetry monitoring, next?does not complain of chest pain, -Continue Eliquis, statin, Plavix, beta-roge History of pulmonary embolism, continue Eliquis, Hyperglycemia ? Anion gap increased at 24, bicarb at 18, ketones negative, ? Continue home Lantus, ? Moderate dose line scale, patient is alert awake, following all commands, ? Will avoid fluids due to concerns for fluid overload, UTI, continue Rocephin ? Urine culture showing gram-negative rods Physical deconditioning, PT OT, JEFFRY, monitor kidney function Lower extremity edema, venous ultrasound Attestations 2 Medical Necessity Statement*: Patient requires hospitalization, inpatient, greater than 2 midnights for UTI, acute hypoxia, concerns for CHF exacerbation, respiratory tract infection, hyperglycemia, JEFFRY, physical deconditioning, generalized weakness., NSTEMI Diagnoses Diabetes E11.9 Cystitis N30.90 COPD (chronic obstructive pulmonary disease) J44.9 JEFFRY (acute kidney injury) N17.9 Hyperlipidemia E78.5 Heart failure with preserved ejection fraction I50.32 Heart failure chronicity: chronic Hypertension associated with diabetes E11.59; I15.2 Acute UTI N39.0 Hyperglycemia R73.9 Non-ST elevation (NSTEMI) myocardial infarction I21.4 Increased anion gap metabolic acidosis E87.29 Pseudohyponatremia R79.89 Acute respiratory failure with hypoxia J96.01
[2023-02-24 12:25] LABS: D Dimer 0.35 ug/mLFEU (0-0.59)
[2023-02-24 12:28] LABS: Troponin 5 2HR 12.72 ng/L (0-10); Troponin 5 2HR Delta -1.28 ABS# (0-10)
--- NOTE | 2023-02-24 12:30 | ECG_ITS ---
[facility] Test Date: 2023-02-24 Pat Name: Lady López Department: Room: Gender: Female [employer] Operator: : 1950 Requested By: Raheem Sommers Order Number: [id number] Kelby MD: Bassem Beauchamp M.D. Measurements Intervals [place] Rate: 71 P: 42 [place]: 165 QRS: -28 QRSD: 96 T: 96 QT: 428 QTc: 467 Interpretive Statements SINUS RHYTHM WITH OCCASIONAL SUPRAVENTRICULAR PREMATURE COMPLEXES LOW QRS VOLTAGE IN PRECORDIAL LEADS [QRS DEFLECTION < 1.0 mV IN CHEST LEADS] POSSIBLE ANTERIOR MYOCARDIAL INFARCTION , OF INDETERMINATE AGE [30 ms Q WAVE IN V3/V4, OR R < 0.2 mV IN V4] Compared to ECG 02/24/2023 10:52:35 Low QRS voltage now present Left-axis deviation no longer present Myocardial infarct finding still present Electronically Signed On 02-25-2023 8:38:14 TROMPER by Bassem Beauchamp M.D. [email or web address]
[2023-02-24 12:38] LABS: NT Pro B Type Natriuretic Pept 817 pg/mL (0-125); Procalcitonin 0.09 ng/mL (0-0.5); Thyroid Stimulating Hormone 1.62 uIU/mL (0.27-4.20)
[2023-02-24 12:44] LABS: Estmated Average Glucose 309; Hemoglobin A1C 12.4 % (4.0-6.0)
[2023-02-24] MEDS: pantoprazole 40 mg SDV IVP (12:57)
[2023-02-24 13:22] LABS: Glucose Point of Care > 600 mg/dL (70-110)
[2023-02-24 13:22] LABS: Glucose Point of Care 522 mg/dL (70-110)
[2023-02-24 13:26] LABS: Lactic Sepsis W/Reflex 1.9 mmol/L (0.5-2.2)
[2023-02-24 13:34] LABS: ABG PCO2 23.3 mmHg (35-45); ABG PH Result 7.49 (7.35-7.45); Arterial Blood Gas Hematocrit 39.3 % (37-47); Base Excess ABG -3.7 mmol/L (-2.0-2.0); Blood Gas Allen Test Pos; Blood Gas Sample Site Radial, left; Blood Gas Sample Type Arterial; HCO3 ABG 17.9 mmol/L (22-26); Oxygen Device ROOM AIR; PO2 ABG 91.4 mmHg (80.0-100.0)
[2023-02-24 14:51] LABS: Glucose Point of Care 473 mg/dL (70-110)
[2023-02-24 15:00] LABS: Adenovirus Not Detected (NOT DETECT); Chlamydia Pneumoniae Not Detected (NOT DETECT); Coronavirus 229E,HKU1,NL63,OC4 Not Detected (NOT DETECT); Human Metapneumovirus Not Detected (NOT DETECT); Human Rhinovirus/Enterovirus Not Detected (NOT DETECT); Influenza A Not Detected (NOT DETECT); Influenza A H1 Not Detected (NOT DETECT); Influenza A H1-2009 Not Detected (NOT DETECT); Influenza A H3 Not Detected (NOT DETECT); Influenza B Not Detected (NOT DETECT); Mycoplasma Pneumoniae Not Detected (NOT DETECT); Parainfluenza Virus Type 1 Not Detected (NOT DETECT); Parainfluenza Virus Type 2 Not Detected (NOT DETECT); Parainfluenza Virus Type 3 Not Detected (NOT DETECT); Parainfluenza Virus Type 4 Not Detected (NOT DETECT); Respiratory Syncytial Virus A Not Detected (NOT DETECT); Respiratory Syncytial Virus B Not Detected (NOT DETECT); SARS-COV-2 Not Detected (NOT DETECT)
[2023-02-24] MEDS: cefTRIAXone 1,000 MG in sodium chloride 0.9% (plus) 50 ML 100 MG IV (15:09)
[2023-02-24] MEDS: bumetanide 0.25 mg/mL SDV 4 mL 1 MG IVP (15:52)
[2023-02-24] MEDS: insulin lispro 100 unit/1 mL 10 UNIT SUBCUT (16:12)
[2023-02-24] MEDS: azithromycin 500 MG in sodium chloride 0.9% 250 ML 250 MG IV (16:13)
[2023-02-24 16:37] LABS: Glucose Point of Care 489 mg/dL (70-110)
[2023-02-24] MEDS: insulin lispro 100 unit/1 mL SUBCUT (17:35)
[2023-02-24] MEDS: insulin glargine 100 units/1 mL 25 UNIT SUBCUT (17:35)
[2023-02-24] MEDS: apixaban 5 mg Tablet PO (17:36)
[2023-02-24] MEDS: carvedilol 12.5 mg Tablet PO (17:36)
[2023-02-24 19:48] LABS: Glucose Point of Care 421 mg/dL (70-110)
[2023-02-24] MEDS: atorvastatin 40 mg Tablet 80 MG PO (21:08)
[2023-02-24 23:11] LABS: Glucose Point of Care 380 mg/dL (70-110)
[2023-02-24] MEDS: insulin regular-human 10 UNIT in SYRINGE 1 EACH IVP (23:20)
[2023-02-25] VITALS (9 sets, daily range): BP systolic 120–164; BP diastolic 70–77; PULSE 61–77; RESP 17–19; TEMP 36.2–37; O2SAT 93–96
--- NOTE | 2023-02-25 00:04 | PC.NURSE ---
Spoke to Dr Alcazar and him know pts blood sugar is 347 after getting 10 units isulin ivp; he advised to give sliding scale insulin which was 12 units.
[2023-02-25 00:06] LABS: Glucose Point of Care 347 mg/dL (70-110)
[2023-02-25 03:01] LABS: Glucose Point of Care 282 mg/dL (70-110)
[2023-02-25] MEDS: losartan 50 mg Tablet 100 MG PO (05:06)
[2023-02-25 05:26] LABS: Basophils % 0.1 %; Eosinophils # 0.1 10^3/uL (0.0-0.8); Eosinophils % 0.8 %; Hematocrit 34.2 % (36-47); Lymphocytes # 2.2 10^3/uL (0.8-4.8); Mean Corpuscular HGB Conc 35.1 g/dL (30-55); Mean Corpuscular Hemoglobin 28.8 pg (27-33); Mean Corpuscular Volume 82.2 fl (85-98); Mean Platelet Volume 10.4 fL (7.4-10.4); Monocytes # 0.6 10^3/uL (0.2-0.9); Monocytes % 5.5 %; Neutrophils # 7.66 10^3/uL (1.8-7.7); Neutrophils % 72.2 %; Nucleated Red Blood Cells % 0 %; Platelet Count 298 10^3/cmm (157-399); Red Blood Count 4.16 10^6/uL (3.85-5.65); Red Cell Distribution Width 12.7 % (12.1-15.1)
[2023-02-25 05:45] LABS: Alanine Aminotransferase 6 U/L (0-33); Albumin Level 3.6 g/dL (3.5-5.2); Alkaline Phosphatase 61 U/L (35-105); Anion Gap 14.7 (5-19); Aspartate Amino Transferase 9 U/L (0-32); Blood Urea Nitrogen 31 mg/dL (8-23); Calcium 8.7 mg/dL (8.5-10.5); Carbon Dioxide 23 mmol/L (22-29); Chloride 100 mmol/L (98-107); Globulin 2.8 g/dL (1.3-4.6); Glucose 227 mg/dL (65-115); Magnesium 2.3 mg/dL (1.7-2.3); Osmolality Calculated 292 mOsm/kg (285-295); Phosphorus 3.6 mg/dL (2.5-4.5); Potassium 3.7 mmol/L (3.5-5.1); Sodium 134 mmol/L (136-145); Total Bilirubin 0.3 mg/dL (0.15-1.2); Total Protein 6.4 g/dL (6.6-8.7)
[2023-02-25] MEDS: apixaban 5 mg Tablet PO (10:35)
[2023-02-25] MEDS: cholecalciferol (vitamin D3) 1,000 unit Tablet 1000 UNIT PO (10:35)
[2023-02-25] MEDS: carvedilol 12.5 mg Tablet PO (10:35)
[2023-02-25] MEDS: insulin glargine 100 units/1 mL 25 UNIT SUBCUT (10:36)
[2023-02-25] MEDS: clopidogrel 75 mg Tablet PO (10:36)
[2023-02-25] MEDS: fenofibrate 145 mg Tablet PO (10:36)
[2023-02-25] MEDS: ropinirole 2 mg Tablet PO (10:37)
[2023-02-25] MEDS: isosorbide mononitrate ER 30 mg Tablet PO (10:37)
[2023-02-25] MEDS: potassium chloride ER 10 mEq Tablet PO (10:37)
[2023-02-25 11:46] LABS: Glucose Point of Care 450 mg/dL (70-110)
--- NOTE | 2023-02-25 11:53 | USR_ITS ---
PROCEDURE INFORMATION: Exam: US Duplex Lower Extremity Veins, Bilateral Exam date and time: 02/25/2023 6:40 AM Age: 72 years old Clinical indication: Screening exam; Dvt TECHNIQUE: Imaging protocol: Real-time duplex ultrasound of the bilateral extremities with 2-D bolton scale, color Doppler flow and spectral waveform analysis including responses to compression and other maneuvers (when performed) with image documentation. Complete exam focused on the lower extremity veins. COMPARISON: CT abdomen pelvis wo con [id number] 10/17/2022 7:51 PM FINDINGS: Right deep veins: Unremarkable. The common femoral, femoral, proximal profunda femoral and popliteal veins are patent without thrombus. Normal Doppler waveforms. Normal compressibility and/or augmentation response. Left deep veins: Unremarkable. The common femoral, femoral, proximal profunda femoral and popliteal veins are patent without thrombus. Normal Doppler waveforms. Normal compressibility and/or augmentation response. Superficial veins: Bilateral saphenofemoral junctions are patent without thrombus. Soft tissues: Unremarkable. US/[place] [id number] IMPRESSION: No evidence of deep vein thrombosis.
--- NOTE | 2023-02-25 11:53 | USCV_ITS ---
Lady López Age: 72 Gender: F : 1950 Exam Date: 02/25/2023 06:19 Ordering Phys: Eevlio Nieves MD Technologist: Az Thompson Exam Location: [facility] [place] Indication: sob BP: 144 / 77 HR: 59 Rhythm: Sinus Technical Quality: Poor MEASUREMENTS (Male / Female) Normal Values 2D ECHO LVOT Diameter 2.0 cm LV Ejection Fraction MOD 2C 62.1 % LV Ejection Fraction 2C AL 62.3 % LA Diameter 4.0 cm LA Width 3.9 cm LA Height 5.2 cm RA Width 2.8 cm RA Height 5.0 cm Aorta at Sinotubular Diameter 2.2 cm IVC Diameter 1.5 cm M-MODE Aortic Annulus Diameter 2.4 cm LA Ao Ratio MM 1.6 MV E Point Septal Separation 0.6 cm DOPPLER AV Peak Velocity 216.0 cm/s LVOT Peak Velocity 97.0 cm/s AV Area Cont Eq vti 1.5 cm squared AV Area Cont Eq pk 1.5 cm squared MV Peak Velocity 159.0 cm/s MV Area PHT 3.5 cm squared Mitral E to A Ratio 0.8 MV E' Velocity 30.0 cm/s Mitral E to MV E' Ratio 10.0 Mitral E to LV E' Lateral Ratio 8.7 Mitral E to LV E' Septal Ratio 11.7 TR Peak Velocity 277.3 cm/s TR Peak Gradient 30.8 mmHg TR Mean Velocity 207.3 cm/s TR Mean Gradient 18.5 mmHg TR Velocity Time Integral 75.2 cm Right Atrial Pressure 3.0 mmHg Pulmonary Artery Systolic Pressu 33.8 mmHg PV Peak Velocity 120.0 cm/s RV Acceleration Time 0.1 s RV Ejection Time 0.4 s RV AcT/ET 0.4 FINDINGS Left Ventricle The ventricle is poorly seen. The apical view is the only useful view. There is probably normal LV function and size. The ejection fraction is about 55 to 60%. Grade 1 diastolic dysfunction. Right Ventricle Normal right ventricular size and systolic function. Normal right ventricular systolic pressure. Right Atrium The right atrium is normal in size. Left Atrium The left atrium is normal in size. Mitral Valve Structurally normal mitral valve. Mild mitral valve regurgitation. Aortic Valve The valve is not well-seen. It appears to be mildly calcified. There may be mild aortic stenosis. Mean gradient 10.7 mmHg, [place] 1.5 cm squared. No obvious aortic insufficiency Tricuspid Valve Structurally normal tricuspid valve. Mild tricuspid valve regurgitation. Pulmonic Valve Pulmonic valve not well visualized. Pericardium Normal pericardium without effusion. Aorta Normal ascending aorta dimension. IVC The inferior vena cava appears normal. CONCLUSIONS The ventricle is poorly seen. The apical view is the only useful view. There is probably normal LV function and size. The ejection fraction is about 55 to 60%. Grade 1 diastolic dysfunction. Structurally normal mitral valve. Mild mitral valve regurgitation. The valve is not well-seen. It appears to be mildly calcified. There may be mild aortic stenosis. Mean gradient 10.7 mmHg, [place] 1.5 cm squared. No obvious aortic insufficiency. Previous study from 06/07/2021 is similar to today's study. Previously noted wall motion disturbances are not noted today, however this is a much poorer quality study. Dr. Bassem Beauchamp MD (Electronically Signed) Final Date: 25 February 2023 13:43 S
--- NOTE | 2023-02-25 11:56 | PM.DCS ---
Discharge Providers Date of Admission: 02/24/23 11:53 Date of Discharge: February 25, 2023 Attending Provider at Admission: Evelio Nieves MD Attending Provider at Discharge: Evelio Nieves MD Primary Care Provider: Avtar Bruce MD Diagnoses at Discharge Discharge Diagnosis (1) Diabetes: Status: Acute (2) Cystitis: Status: Acute (3) COPD (chronic obstructive pulmonary disease): Status: Acute (4) JEFFRY (acute kidney injury): Status: Acute (5) Hyperlipidemia: Status: Acute (6) Heart failure with preserved ejection fraction: Status: Acute Qualifiers: Heart failure chronicity: chronic Qualified Code(s): I50.32 - Chronic diastolic (congestive) heart failure (7) Hypertension associated with diabetes: Status: Acute (8) Acute UTI: Status: Acute (9) Hyperglycemia: Status: Acute (10) Non-ST elevation (NSTEMI) myocardial infarction: Status: Resolved (11) Increased anion gap metabolic acidosis: Status: Acute (12) Pseudohyponatremia: Status: Acute (13) Acute respiratory failure with hypoxia: Status: Acute Reason for Visit Reason for Visit: SOB Hospital Course Hospital Course Lady López is a 72 year old female With a past medical history of insulin-dependent type 2 diabetes mellitus, CAD status post stenting x 2, hyperlipidemia, history of CHF, on anticoagulant therapy, history of PE on Eliquis, who presents to [facility] due to weakness, shortness of breath, fatigue, malaise, elevated blood sugars, Patient was in [facility], 02/23/2023, for shortness of breath, chronically uses oxygen 3 L at home, was also found to have elevated blood sugars she was treated for diabetes, cystitis, COPD exacerbation. She tells me that she has been feeling short of breath for the last few weeks, increased shortness of breath with exertion, with lower extremity edema, she lives at home by herself, she tells me that overnight she continued to feel short of breath, weak fatigued, she could not pick herself up, she could not walk due to generalized weakness, no facial droop no slurring of her words, no focal weakness, denies any dysuria, no hematuria, does have a nonproductive cough, no fevers, does have chills, no lightheadedness, dizziness, no chest pain. This morning she had significant fatigue, malaise, she was worried that her blood pressure was elevated her blood sugars were high so she called EMS Patient presented to [facility] for acute hypoxia secondary to fluid overload, possible respiratory tract infection, received inpatient diuresis she uses 3 L at home, overall clinically improved, discharged with Lasix 40 mg once daily with potassium replacement therapy with cefdinir Patient was found to have E. coli and Klebsiella pneumonia UTI during hospitalization discharged on cefdinir, Patient was found to have diastolic CHF exacerbation, monitored with diuretics as inpatient, overall clinically improved, For hyperglycemia, increased anion gap, ketones negative, managed with her home Lantus, insulin sliding scale, overall clinically improved, sugars are well-controlled. Will be discharged on her home Lantus with a insulin sliding scale with close follow-up with primary care provider as outpatient Physical Exam Const: COMMON NORMALS: no acute distress and patient oriented x3 Resp: COMMON NORMALS: normal respiratory effort, No retractions, No use of accessory muscles and clear to auscultation bilaterally AUSCULTATION: clear to auscultation bilaterally Cardio: COMMON NORMALS: regular rate, regular rhythm, S1 normal heart sound present and S2 normal heart sound present RATE: regular rate RHYTHM: regular rhythm HEART SOUNDS: S1 normal heart sound present and S2 normal heart sound present GI: COMMON NORMALS: Normal to inspection, nondistended, normoactive bowel sounds present Extremity: COMMON NORMALS: no pedal edema Neuro: COMMON NORMALS: patient oriented x3 Psych: COMMON NORMALS: mental status grossly normal Urinary Catheter Management: Mathew: Cath Placed During This Visit: yes Reason for Continuing Indwelling Catheter: Accurate Measurement of Urinary Output in Critically Ill Patients Urinary Catheter Date of Insertion: 02/24/23 Urinary Catheter Time of Insertion: 11:43 Discharge Data Studies Completed and Pending Completed Studies During Hospitalization Category Date Time Status XR chest 1V portable [id number] Stat Exams 02/24/23 10:30 [place] [id number] Stat Ultrasound 02/25/23 11:53 Completed Pending at discharge Category Date Time Status Blood Culture Stat Lab 02/24/23 12:59 Results Complete Blood Count w/Auto AM LABS Lab 02/26/23 04:00 Ordered Complete Blood Count w/Auto AM LABS Lab 02/27/23 04:00 Ordered Comprehensive Metabolic Panel AM LABS Lab 02/26/23 04:00 Ordered Comprehensive Metabolic Panel AM LABS Lab 02/27/23 04:00 Ordered Magnesium AM LABS Lab 02/26/23 04:00 Ordered Magnesium AM LABS Lab 02/27/23 04:00 Ordered Phosphorus AM LABS Lab 02/26/23 04:00 Ordered Phosphorus AM LABS Lab 02/27/23 04:00 Ordered CV. echo complete* [id number] Stat Ultrasound 02/25/23 11:53 Taken Radiology Impressions Chest X-Ray 02/24/23 10:30 IMPRESSION: Mild linear atelectasis in the left lower lung, unchanged. No focal consolidation to suggest overlying pneumonia. Venous Duplex 02/25/23 11:53 IMPRESSION: No evidence of deep vein thrombosis. Laboratory Results WBC 10.60 10^3/uL (3.29-11.43) 02/25/23 04:58 RBC 4.16 10^6/uL (3.85-5.65) 02/25/23 04:58 Hgb 12.00 g/dL (11.27-16.99) 02/25/23 04:58 Hct 34.2 % (36-47) L 02/25/23 04:58 MCV 82.2 fl (85-98) L 02/25/23 04:58 MCH 28.8 pg (27-33) 02/25/23 04:58 MCHC 35.1 g/dL (30-55) 02/25/23 04:58 RDW 12.7 % (12.1-15.1) 02/25/23 04:58 Plt Count 298 10^3/cmm (157-399) 02/25/23 04:58 MPV 10.4 fL (7.4-10.4) 02/25/23 04:58 Neut % (Auto) 72.2 % 02/25/23 04:58 Lymph % (Auto) 21.0 % 02/25/23 04:58 [place] % (Auto) 5.5 % 02/25/23 04:58 Eos % (Auto) 0.8 % 02/25/23 04:58 Baso % (Auto) 0.1 % 02/25/23 04:58 Neut # (Auto) 7.66 10^3/uL (1.8-7.7) 02/25/23 04:58 Lymph # (Auto) 2.2 10^3/uL (0.8-4.8) 02/25/23 04:58 [place] # (Auto) 0.6 10^3/uL (0.2-0.9) 02/25/23 04:58 Eos # (Auto) 0.1 10^3/uL (0.0-0.8) 02/25/23 04:58 Baso # (Auto) 0.0 10^3/uL (0.0-0.1) 02/25/23 04:58 Nucleated RBC % (auto) 0 % 02/25/23 04:58 Nucleated RBCs # 0.0 /100WBC 02/25/23 04:58 D-Dimer 0.35 ug/mLFEU (0-0.59) 02/24/23 10:15 Specimen Type Arterial 02/24/23 13:22 Sample Site Radial, left 02/24/23 13:22 ABG pH 7.49 (7.35-7.45) H 02/24/23 13:22 ABG pCO2 23.3 mmHg (35-45) L 02/24/23 13:22 ABG pO2 91.4 mmHg (80.0-100.0) 02/24/23 13:22 ABG HCO3 17.9 mmol/L (22-26) L 02/24/23 13:22 ABG Base Excess -3.7 mmol/L (-2.0-2.0) L 02/24/23 13:22 Stephen Test Pos 02/24/23 13:22 Hematocrit 39.3 % (37-47) 02/24/23 13:22 O2 Delivery Device Room air 02/24/23 13:22 Client Technical Specialist ID Ezequiel 02/24/23 13:22 Sodium 134 mmol/L (136-145) L 02/25/23 04:58 Potassium 3.7 mmol/L (3.5-5.1) 02/25/23 04:58 Chloride 100 mmol/L (98-107) 02/25/23 04:58 Carbon Dioxide 23 mmol/L (22-29) 02/25/23 04:58 Anion Gap 14.7 (5-19) 02/25/23 04:58 BUN 31 mg/dL (8-23) H 02/25/23 04:58 Creatinine 1.1 mg/dL (0.5-0.9) H 02/25/23 04:58 GFR Calculation Not Reportable 02/25/23 04:58 Glucose 227 mg/dL (65-115) H 02/25/23 04:58 POC Glucose 450 mg/dL (70-110) H 02/25/23 11:42 Estimat Average Glucose 309 02/24/23 10:15 Hemoglobin A1c 12.4 % (4.0-6.0) H 02/24/23 10:15 Calculated Osmolality 292 mOsm/kg (285-295) 02/25/23 04:58 Lactic Acid 1.9 mmol/L (0.5-2.2) 02/24/23 12:59 Calcium 8.7 mg/dL (8.5-10.5) 02/25/23 04:58 Phosphorus 3.6 mg/dL (2.5-4.5) 02/25/23 04:58 Magnesium 2.3 mg/dL (1.7-2.3) 02/25/23 04:58 Total Bilirubin 0.3 mg/dL (0.15-1.2) 02/25/23 04:58 AST 9 U/L (0-32) 02/25/23 04:58 ALT 6 U/L (0-33) 02/25/23 04:58 Alkaline Phosphatase 61 U/L (35-105) 02/25/23 04:58 Troponin T Baseline 14 ng/L (0-10) H 02/24/23 10:15 Troponin T 120 Minute 12.72 ng/L (0-10) H 02/24/23 11:56 Delta Troponin T -1.28 ABS# (0-10) L 02/24/23 11:56 Troponin T Hi Sens 6Hr 12.80 ng/L (0-10) H 02/24/23 16:32 Troponin T Hi Sens 6Hr Delta -1.20 ng/L (0-12) L 02/24/23 16:32 NT-Pro-B Natriuret Pep 817 pg/mL (0-125) H 02/24/23 10:15 Total Protein 6.4 g/dL (6.6-8.7) L 02/25/23 04:58 Albumin 3.6 g/dL (3.5-5.2) 02/25/23 04:58 Globulin 2.8 g/dL (1.3-4.6) 02/25/23 04:58 Procalcitonin 0.09 ng/mL (0-0.5) 02/24/23 10:15 TSH 1.62 uIU/mL (0.27-4.20) 02/24/23 10:15 Urine Color Yellow (Yellow) 02/24/23 11:16 Urine Appearance Clear (CLEAR) 02/24/23 11:16 Urine pH 5 (5-7) 02/24/23 11:16 Ur Specific [place] 1.010 (1.005-1.030) 02/24/23 11:16 Urine Protein Trace (Negative) 02/24/23 11:16 Urine Glucose (UA) 4+ (Normal) H 02/24/23 11:16 Urine Ketones 1+ (Negative) H 02/24/23 11:16 Urine Blood Neg (Negative) 02/24/23 11:16 Urine Nitrate Negative (Negative) 02/24/23 11:16 Urine Bilirubin Neg (Negative) 02/24/23 11:16 Urine Urobilinogen Norm mg/dL (Negative) 02/24/23 11:16 Ur Leukocyte Esterase Negative (Negative) 02/24/23 11:16 Urine RBC None /hpf (0-2) 02/24/23 11:16 Urine WBC 0-4 /hpf (0-5) H 02/24/23 11:16 Ur Squamous Epith Cells Rare /hpf (0-5) 02/24/23 11:16 Amorphous Sediment Not Reportable 02/24/23 11:16 Urine Bacteria 1+ /hpf (NONE) H 02/24/23 11:16 Nasal Influ A H1 2008 PCR Not detected (NOT DETECT) 02/24/23 12:52 Serum Ketones Negative (Negative) 02/24/23 10:15 Adenovirus (PCR) Not detected (NOT DETECT) 02/24/23 12:52 C. pneumoniae DNA (PCR) Not detected (NOT DETECT) 02/24/23 12:52 Coronavirus 229E (PCR) Not detected (NOT DETECT) 02/24/23 12:52 Human Metapneumovir PCR Not detected (NOT DETECT) 02/24/23 12:52 Influenza A (H1) PCR Not detected (NOT DETECT) 02/24/23 12:52 Influenza A (H3) PCR Not detected (NOT DETECT) 02/24/23 12:52 Influenza Type A (PCR) Not detected (NOT DETECT) 02/24/23 12:52 Influenza Type B (PCR) Not detected (NOT DETECT) 02/24/23 12:52 M. pneumoniae (PCR) Not detected (NOT DETECT) 02/24/23 12:52 Parainfluenza 1 (PCR) Not detected (NOT DETECT) 02/24/23 12:52 Parainfluenza 2 (PCR) Not detected (NOT DETECT) 02/24/23 12:52 Parainfluenza 3 (PCR) Not detected (NOT DETECT) 02/24/23 12:52 Parainfluenza 4 (PCR) Not detected (NOT DETECT) 02/24/23 12:52 RSV Type A (PCR) Not detected (NOT DETECT) 02/24/23 12:52 RSV Type B (PCR) Not detected (NOT DETECT) 02/24/23 12:52 Entero/Rhino (PCR) Not detected (NOT DETECT) 02/24/23 12:52 SARS-CoV-2 (PCR) Not detected (NOT DETECT) 02/24/23 12:52 Vitals Last Vital Signs Temp 97.5 F L 02/25/23 08:00 Pulse 68 02/25/23 08:45 Resp 18 02/25/23 08:45 BP 162/71 02/25/23 08:00 Pulse Ox 94 02/25/23 08:45 O2 Del Method Room Air 02/25/23 08:45 O2 Flow Rate 2 02/24/23 12:10 Discharge Plan Discharge Patient Disposition: Home Condition: Stable Prescriptions: New cefdinir 300 mg capsule 300 mg PO BID 7 Days Qty: 14 0RF insulin aspart U-100 [Novolog FlexPen U-100 Insulin] 100 unit/mL (3 mL) insulin pen See Rx Instructions .ROUTE .COMPLEX Qty: 15 0RF Rx Instructions: Inject, subcut, 3 times daily, after meals, based on sliding scale provided Continued tiotropium bromide [Spiriva with HandiHaler] 18 mcg capsule, w/inhalation device 1 cap inhalation DAILY Qty: 60 2RF Rx Instructions: puncture 1 cap using device; one dose = 2 inhalations Anoro Ellipta 62.5-25 mcg/actuation blister with device 1 inh inhalation DAILY Qty: 60 2RF ropinirole 2 mg tablet 2 mg PO DAILY Qty: 30 1RF acetaminophen 500 mg capsule 1,000 mg PO Q6H PRN (Reason: Pain) Aspercreme (lidocaine HCl) 4 % liquid roll-on See Rx Instructions topical .COMPLEX Qty: 73 0RF Rx Instructions: apply to affected painful area of abdomen topically up to qid as needed Victoza 3-Krishna 0.6 mg/0.1 mL (18 mg/3 mL) pen injector 1.2 mg SUBCUT DAILY 30 Days Qty: 9 2RF (DME) ReliOn Prime Test Strips Strip See Rx Instructions .Route Qty: 300 3RF Rx Instructions: As directed with Relion meter TID 90 day supply (DME) OneTouch Ultra Test Strip See Rx Instructions .ROUTE .COMPLEX Qty: 100 11RF Dose Instruction: DIRECTED, CHECK SUGARS DAILY FASTING AND OCCASIONALLY ONE HOUR POST MEAL INSTEAD OF FASTING E11.9 Rx Instructions: DIRECTED, CHECK SUGARS DAILY FASTING AND OCCASIONALLY ONE HOUR POST MEAL INSTEAD OF FASTING E11.9 carvedilol 12.5 mg tablet 12.5 mg PO BID Qty: 180 3RF pantoprazole 40 mg tablet,delayed release (DR/EC) 40 mg PO DAILY Qty: 90 3RF isosorbide mononitrate 30 mg tablet extended release 24 hr 30 mg PO DAILY Qty: 90 3RF clopidogrel 75 mg tablet 75 mg PO DAILY Qty: 90 3RF (DME) insulin syringe-needle U-100 [BD Insulin Syringe Ultra-Fine] 1 mL 31 gauge x 5/16 syringe See Rx Instructions .ROUTE .COMPLEX Qty: 100 3RF Dose Instruction: DIRECTED Rx Instructions: DIRECTED amlodipine 10 mg tablet 10 mg PO DAILY Qty: 90 3RF metformin 1,000 mg tablet 1,000 mg PO BID Qty: 180 3RF Hold Instructions: Resume on 06/11/21. Hold on 06/09 and 06/10. metoclopramide HCl 10 mg tablet 10 mg PO QID PRN (Reason: nausea and vomiting) Qty: 120 1RF bismuth subsalicylate [Pepto-Bismol] 262 mg/15 mL Suspension 524 mg PO Q1H PRN (Reason: Gastrointestinal Spasms Or Cramping) Rx Instructions: do not exceed 8 doses in a 24 hour period cholecalciferol (vitamin D3) [Vitamin D3] 25 mcg (1,000 unit) Tablet 25 mcg PO DAILY Salonpas Pain Relieving Jet 10-3 % Aerosol,[place] 1 spray TOPICAL Q4H PRN (Reason: Pain) polyethylene glycol 3350 [Miralax] 17 gram powder in packet 17 g PO DAILY PRN (Reason: constipation) Qty: 14 0RF multivitamin Tablet 1 tab PO DAILY atorvastatin 80 mg tablet 80 mg PO BEDTIME fenofibrate nanocrystallized 145 mg tablet 145 mg PO DAILY potassium chloride 10 mEq tablet extended release 10 meq PO DAILY insulin glargine [Lantus U-100 Insulin] 100 unit/mL solution 25 unit SUBCUT BID losartan 100 mg tablet 100 mg PO QAM Eliquis 5 mg tablet 5 mg PO BID albuterol sulfate 90 mcg/actuation HFA aerosol inhaler 2 inh INHALATION Q4H PRN (Reason: shortness of breath or wheezing) Qty: 18 0RF Januvia 100 mg tablet 100 mg PO DAILY Qty: 30 0RF Changed furosemide 40 mg tablet 40 mg PO DAILY 30 Days Qty: 30 0RF Discontinued bumetanide 2 mg tablet 2 mg PO BID Qty: 60 0RF linezolid [Zyvox] 600 mg tablet 600 mg PO Q12H 6 Days Qty: 12 0RF amoxicillin-pot clavulanate 875-125 mg tablet 1 tab PO BID Qty: 14 0RF Discharge Orders: Discharge Order (Routine); Ordered 02/25/23 Ordered By: Evelio Nieves Referrals: Avtar Bruce MD [Primary Care Provider] - Discharge Diet: Diabetic Discharge Activity: Resume usual activity Patient Instructions: Opioid Safety Activity Restrictions/Additional Instructions: -Please take cefdinir -Please monitor your blood sugars closely -Monitor your blood sugars 3 times daily as after meals -Please record your blood sugars, and a blood sugar log -For your NovoLog -Please inject blood sugar after meals based on sliding scale provided -Do not inject insulin if you do not eat as hypoglycemia kills -This is a NovoLog sliding scale -Insulin sliding ?fingerstick? Insulin ?141-180?0 units/sq 181-220?2 units/sq ?221-260?4 units/sq ?261-300 6 units/sq ?301-350?8 units/sq ?351-400 10 units/sq ?401-450?12 units/sq >450? 14units/sq -If your blood sugar is greater than 500 go to the emergency room -If your blood sugar is less than 60 or at anytime you feel lightheaded or dizzy or diaphoretic or have chest palpitations check your blood sugar, and eat a hard candy or drink orange juice and go immediately to the emergency room -Remember hypoglycemia kills, so if his blood sugar is less than 60 we have to increase it by taking in a sugary meal such as a hard candy or orange juice and go to the emergency room -If you have any questions please call us where here to help Discharge Attestations Time Spent in Discharge Care*: greater than 30 min Status at Discharge: Cognitive status at discharge: mildly impaired cognition, Behavioral status at discharge: cooperative, Quality Metrics Clinical Quality Measures [ No reported AMI, CVA or VTE this stay] Coding Level of Care Code 93154 Total time (in minutes) for Discharge: 45 Diagnoses Diabetes E11.9 Cystitis N30.90 COPD (chronic obstructive pulmonary disease) J44.9 JEFFRY (acute kidney injury) N17.9 Hyperlipidemia E78.5 Heart failure with preserved ejection fraction I50.32 Heart failure chronicity: chronic Hypertension associated with diabetes E11.59; I15.2 Acute UTI N39.0 Hyperglycemia R73.9 Non-ST elevation (NSTEMI) myocardial infarction I21.4 Increased anion gap metabolic acidosis E87.29 Pseudohyponatremia R79.89 Acute respiratory failure with hypoxia J96.01
[2023-02-25] MEDS: amlodipine 10 mg Tablet PO (12:54)
[2023-02-25] MEDS: insulin lispro 100 unit/1 mL SUBCUT ×2 (12:55)
[2023-02-25] MEDS: pantoprazole 40 mg SDV IVP (14:55)
[2023-02-25] MEDS: cefTRIAXone 1,000 MG in sodium chloride 0.9% (plus) 50 ML 100 MG IV (14:55)
== END 2023-02-25 17:59 | disposition home or self-care (01) | DRG 637 ==
LOC: ER 11:38 → MEDSURG 13:48
PROVIDERS: Admitting Provider Family Medicine; Emergency Provider Family Medicine; PCP Family Medicine; Visit Provider Family Medicine
DX: E11.65 Type 2 diabetes mellitus with hyperglycemia (principal); I21.4 Non-ST elevation (NSTEMI) myocardial infarction; I50.33 Acute on chronic diastolic (congestive) heart failure; J96.01 Acute respiratory failure with hypoxia; J44.1 Chronic obstructive pulmonary disease with (acute) exacerbation; N17.9 Acute kidney failure, unspecified; Z79.4 Long term (current) use of insulin; I25.10 Atherosclerotic heart disease of native coronary artery without angina pectoris; Z95.5 Presence of coronary angioplasty implant and graft; E78.5 Hyperlipidemia, unspecified; I11.0 Hypertensive heart disease with heart failure; Z86.711 Personal history of pulmonary embolism; Z79.01 Long term (current) use of anticoagulants; Z99.81 Dependence on supplemental oxygen; K21.9 Gastro-esophageal reflux disease without esophagitis; G25.81 Restless legs syndrome; N30.90 Cystitis, unspecified without hematuria; B96.20 Unspecified Escherichia coli [E. coli] as the cause of diseases classified elsewhere; B96.1 Klebsiella pneumoniae [K. pneumoniae] as the cause of diseases classified elsewhere
CPT/HCPCS: 36415; 36416; 36600; 51702; 71045; 80053; 81001; 82009; 82803; 82962; 83036; 83605; 83735; 83880; 84100; 84145; 84443; 84484; 85025; 85378; 87040; 87486; 87581; 87633; 93005; 93306; 93970; 94664; 96372; 96374; 97166; 99285; C9113; J0456; J0696; J1815; J3490; J7030; J7050

== ENCOUNTER 2023-02-28 14:28 | Inpatient (IN) | payer MEDICAID, SELFPAY ==
[2023-02-28] VITALS (38 sets, daily range): BP systolic 142–177; BP diastolic 56–94; PULSE 58–81; RESP 18–33; TEMP 36.9–37.1; O2SAT 91–99; BMI 35.4
--- NOTE | 2023-02-28 14:31 | W.ED.GENADLT ---
HPI - General Adult General: Chief complaint: Nausea/Vomiting/Diarrhea Stated complaint: hig blood sugar, nausea Time Seen by Provider: 02/28/23 14:29 Source: patient Mode of arrival: ambulatory History of Present Illness: 72-year-old female presents emergency room via EMS from home. She is diabetic her blood sugars been high she has had nausea and vomiting she has had 2 previous ER visits recently 1 she was treated and released however she did not get her medications return she had some COPD exacerbation as well. She was admitted and discharged 3 days ago, however unfortunately she again did not able to get her medications and takes them medically she returns now her blood sugars are markedly elevated. she is awake and alert admits that she is having difficult time managing her medications and her own cares at home. Onset (ago): hour(s) Severity: moderate Relieving factors: none Exacerbating factors: none Associated symptoms: Reports decreased appetite, malaise, nausea and vomiting; Deny chest pain, confusion, cough, diaphoresis, dyspnea, fevers/chills, headache(s), rash, palpitations, seizures, short of breath, syncope or weakness Treatments prior to arrival: none Review of Systems Const: Reports: malaise; Denies: fever(s), chills or diaphoresis Card: Denies: chest pain, palpitations or syncope Resp: Denies: dyspnea GI: Reports: nausea and vomiting; Denies: abdominal pain : Denies: dysuria, urinary frequency or urinary urgency Musc: Denies: neck pain or back pain Skin/Breast: Denies: rash Neuro: Denies: headache(s) or confusion PFS ED PFSH: Medical History Dilation of pulmonary artery GERD (gastroesophageal reflux disease) Restless leg syndrome Presence of stent in coronary artery in patient with coronary artery disease Heart failure with preserved ejection fraction Altered mental status Diabetes CHF (congestive heart failure) Atherosclerosis of coronary artery Hyperlipidemia Pulmonary embolism DKA (diabetic ketoacidosis) Hypertensive urgency DM type 2 (diabetes mellitus, type 2) Arthritis Asthma HTN (hypertension) Small bowel mass Surgical History Hx of cholecystectomy Family History Other Cancer Stroke Social History Smoking and tobacco/nicotine status: never used tobacco/nicotine Alcohol intake: never Substance/Drug Use: never Lives independently: Yes Household members: none Marital status: / Physical Exam Const: GENERAL APPEARANCE: cooperative ORIENTATION/CONSCIOUSNESS: Yes awake, Yes oriented to person, Yes oriented to place and Yes oriented to time HENMT: COMMON NORMALS: normocephalic, atraumatic and hearing grossly normal bilaterally HEAD & SCALP: normocephalic and atraumatic Resp: COMMON NORMALS: normal respiratory effort, No retractions, No use of accessory muscles and clear to auscultation bilaterally AUSCULTATION: clear to auscultation bilaterally Cardio: COMMON NORMALS: regular rate, regular rhythm and No murmurs present (Cardio) RATE: regular rate RHYTHM: regular rhythm GI: COMMON NORMALS: Soft to palpation and No hepatosplenomegaly present AUSCULTATION: Yes normoactive bowel sounds PALPATION: Yes Soft to palpation, No Tenderness to palpation present (GI), No Guarding due to palpation present (GI) and Yes No hepatosplenomegaly present Extremity: COMMON NORMALS: normal to inspection, capillary refill normal, no clubbing, cyanosis or edema, no calf tenderness and no pedal edema Neuro: SENSORIUM/ORIENTATION: Yes oriented to person, Yes oriented to place and Yes oriented to time Skin: COMMON NORMALS: no rashes or lesions noted GENERAL SKIN EXAM: no rashes or lesions noted Course Vital Signs: Vital signs: Vital Signs Temperature 98.4 F 03/01/23 05:06 Pulse Rate 66 03/01/23 05:09 Respiratory Rate 16 03/01/23 05:06 Blood Pressure 150/70 03/01/23 05:06 Pulse Oximetry 96 03/01/23 05:06 Oxygen Delivery Me thod Room Air 02/28/23 21:52 MDM - General Adult Medical Decision Making Discussed with hospitalist will admit for blood sugar control. Management of COPD. Medical Records I reviewed the patient's medical records. Lab Data I reviewed the patient's lab results. 03/01/23 04:04 03/01/23 04:04 Laboratory Results WBC 9.87 10^3/uL (3.29-11.43) 02/28/23 14:40 RBC 4.01 10^6/uL (3.85-5.65) 02/28/23 14:40 Hgb 11.80 g/dL (11.27-16.99) 02/28/23 14:40 Hct 34.4 % (36-47) L 02/28/23 14:40 MCV 85.8 fl (85-98) 02/28/23 14:40 MCH 29.4 pg (27-33) 02/28/23 14:40 MCHC 34.3 g/dL (30-55) 02/28/23 14:40 RDW 12.6 % (12.1-15.1) 02/28/23 14:40 Plt Count 256 10^3/cmm (157-399) 02/28/23 14:40 MPV 10.6 fL (7.4-10.4) H 02/28/23 14:40 Neut % (Auto) 74.2 % 02/28/23 14:40 Lymph % (Auto) 18.8 % 02/28/23 14:40 [place] % (Auto) 4.5 % 02/28/23 14:40 Eos % (Auto) 1.7 % 02/28/23 14:40 Baso % (Auto) 0.4 % 02/28/23 14:40 Neut # (Auto) 7.32 10^3/uL (1.8-7.7) 02/28/23 14:40 Lymph # (Auto) 1.9 10^3/uL (0.8-4.8) 02/28/23 14:40 [place] # (Auto) 0.4 10^3/uL (0.2-0.9) 02/28/23 14:40 Eos # (Auto) 0.2 10^3/uL (0.0-0.8) 02/28/23 14:40 Baso # (Auto) 0.0 10^3/uL (0.0-0.1) 02/28/23 14:40 Nucleated RBC % (auto) 0 % 02/28/23 14:40 Nucleated RBCs # 0.0 /100WBC 02/28/23 14:40 Sodium 127 mmol/L (136-145) L 02/28/23 14:40 Potassium 4.7 mmol/L (3.5-5.1) 02/28/23 14:40 Chloride 94 mmol/L (98-107) L 02/28/23 14:40 Carbon Dioxide 17 mmol/L (22-29) L 02/28/23 14:40 Anion Gap 20.7 (5-19) H 02/28/23 14:40 BUN 19 mg/dL (8-23) 02/28/23 14:40 Creatinine 1.2 mg/dL (0.5-0.9) H 02/28/23 14:40 GFR Calculation Not Reportable 02/28/23 14:40 Glucose 568 mg/dL (65-115) H* 02/28/23 14:40 POC Glucose 300 mg/dL (70-110) H 02/28/23 17:40 Calculated Osmolality 292 mOsm/kg (285-295) 02/28/23 14:40 Calcium 8.6 mg/dL (8.5-10.5) 02/28/23 14:40 Total Bilirubin 0.2 mg/dL (0.15-1.2) 02/28/23 14:40 AST 10 U/L (0-32) 02/28/23 14:40 ALT 8 U/L (0-33) 02/28/23 14:40 Alkaline Phosphatase 65 U/L (35-105) 02/28/23 14:40 Total Protein 6.0 g/dL (6.6-8.7) L 02/28/23 14:40 Albumin 3.6 g/dL (3.5-5.2) 02/28/23 14:40 Globulin 2.4 g/dL (1.3-4.6) 02/28/23 14:40 Lipase 67 U/L (13-60) H 02/28/23 14:40 Urine Color Colorless (Yellow) 02/28/23 16:20 Urine Appearance Sl hazy (CLEAR) A 02/28/23 16:20 Urine pH 5 (5-7) 02/28/23 16:20 Ur Specific [place] 1.015 (1.005-1.030) 02/28/23 16:20 Urine Protein Neg (Negative) 02/28/23 16:20 Urine Glucose (UA) 4+ (Normal) H 02/28/23 16:20 Urine Ketones Negative (Negative) 02/28/23 16:20 Urine Blood 3+ (Negative) H 02/28/23 16:20 Urine Nitrate Negative (Negative) 02/28/23 16:20 Urine Bilirubin Neg (Negative) 02/28/23 16:20 Urine Urobilinogen Norm mg/dL (Negative) 02/28/23 16:20 Ur Leukocyte Esterase 2+ (Negative) H 02/28/23 16:20 Urine RBC 0-4 /hpf (0-2) H 02/28/23 16:20 Urine WBC 0-4 /hpf (0-5) H 02/28/23 16:20 Ur Squamous Epith Cells 0-4 /hpf (0-5) H 02/28/23 16:20 Amorphous Sediment Not Reportable 02/28/23 16:20 Urine Bacteria Trace /hpf (NONE) 02/28/23 16:20 Urine Mucus None /hpf 02/28/23 16:20 Urine Yeast 2+ /hpf H 02/28/23 16:20 Serum Ketones Negative (Negative) 02/28/23 14:40 No radiology studies performed this visit Discharge Plan Discharge Patient Disposition: Admitted As Inpatient Admit Provider: Yaneth Vinson Clinical Impression: Hyperglycemia, Nausea & vomiting, Diabetes, Hyponatremia, Anemia Condition: Stable Coding Level of Care Code ED Machine [employer] Apprentice for Sasha Cox
[2023-02-28 14:53] LABS: Basophils % 0.4 %; Eosinophils # 0.2 10^3/uL (0.0-0.8); Eosinophils % 1.7 %; Hematocrit 34.4 % (36-47); Lymphocytes # 1.9 10^3/uL (0.8-4.8); Lymphocytes % 18.8 %; Mean Corpuscular HGB Conc 34.3 g/dL (30-55); Mean Corpuscular Hemoglobin 29.4 pg (27-33); Mean Corpuscular Volume 85.8 fl (85-98); Mean Platelet Volume 10.6 fL (7.4-10.4); Monocytes # 0.4 10^3/uL (0.2-0.9); Monocytes % 4.5 %; Neutrophils # 7.32 10^3/uL (1.8-7.7); Neutrophils % 74.2 %; Nucleated Red Blood Cells % 0 %; Platelet Count 256 10^3/cmm (157-399); Red Blood Count 4.01 10^6/uL (3.85-5.65); Red Cell Distribution Width 12.6 % (12.1-15.1); White Blood Count 9.87 10^3/uL (3.29-11.43)
[2023-02-28 15:10] LABS: Alanine Aminotransferase 8 U/L (0-33); Albumin Level 3.6 g/dL (3.5-5.2); Alkaline Phosphatase 65 U/L (35-105); Anion Gap 20.7 (5-19); Aspartate Amino Transferase 10 U/L (0-32); Blood Urea Nitrogen 19 mg/dL (8-23); Calcium 8.6 mg/dL (8.5-10.5); Carbon Dioxide 17 mmol/L (22-29); Chloride 94 mmol/L (98-107); Globulin 2.4 g/dL (1.3-4.6); Osmolality Calculated 292 mOsm/kg (285-295); Potassium 4.7 mmol/L (3.5-5.1); Sodium 127 mmol/L (136-145); Total Bilirubin 0.2 mg/dL (0.15-1.2)
--- NOTE | 2023-02-28 15:18 | PC.PHAR ---
Addendum entered by Jami Trevino 02/28/23 16:17: MED LIST FROM [facility] SHOWS THAT THE NURSE IS STILL GIVING PT BUMETANIDE 2 MG DAILY THAT WAS DISC. 02/25/23- LIST FROM [facility] DOES NOT SHOW FUROSIMIDE 40MG DAILY, OR NOVALOG FLEX PEN PER SLIDING SCALE- POTASSIUM DOSE ALSO INCORRECT ON ASSIST LIST, PT SUPPOSED TO BE TAKING 10 MEQ DAILY- LINEZOLID 600 MG WAS ALSO DISC PER DISCHARGE PACKET DATED 02/25/23 BUT STILL SHOWING ON LIST FROM [facility]. Original Note: PT HAS HOME HEALTH NURSE FROM [facility] PHONE # [phone]- WAITING FOR MED LIST TO BE FAXED
[2023-02-28 15:20] LABS: Glucose 568 mg/dL (65-115)
[2023-02-28 15:49] LABS: Glucose Point of Care 505 mg/dL (70-110)
[2023-02-28 16:30] LABS: Glucose Point of Care 494 mg/dL (70-110)
[2023-02-28 16:31] LABS: Ketone (Acetest) Serum Negative (Negative); Lipase 67 U/L (13-60)
[2023-02-28] MEDS: insulin regular-human 100 units/1 mL 14 UNIT IVP (16:33)
[2023-02-28 17:43] LABS: Glucose Point of Care 300 mg/dL (70-110)
[2023-02-28 18:57] LABS: Protein Urine Neg (Negative); Specific Gravity, Urine 1.015 (1.005-1.030); Urine Appearance SL Hazy (CLEAR); Urine Color Colorless (Yellow); pH Urine 5 (5-7)
[2023-02-28 18:58] LABS: Add Urine Microscopic? YES; Bilirubin Urine Neg (Negative); Blood Urine 3+ (Negative); Glucose Urine UA 4+ (Normal); Ketones Urine Negative (Negative); Leukocyte Esterase Urine 2+ (Negative); Nitrate Urine Negative (Negative); Urobilinogen Urine Norm (Negative)
[2023-02-28 19:02] LABS: Add Urine Culture? Yes; Bacteria Urine TRACE /hpf; RBC Urine 0-4 /hpf (0-2); Squamous Epithelial Cell Urine 0-4 /hpf (0-5); WBC Urine 0-4 /hpf (0-5)
--- NOTE | 2023-02-28 20:02 | PC.NURSE ---
Patient report was called to SANDR[facility] on [place]. All questions and concerns addressed at time of report. Patient was transferred with paperwork and belongings.
[2023-02-28 20:33] LABS: Glucose Point of Care 441 mg/dL (70-110)
[2023-02-28] MEDS: sodium chloride 0.9% 1,000 ML 100 ML IV (21:28)
[2023-02-28] MEDS: insulin regular-human 10 UNIT in SYRINGE 1 EACH IVP (21:30)
--- NOTE | 2023-02-28 23:37 | P.HP_ITS ---
Providers/Chief Complaint 2 Admitting Physician: Yaneth Vinson MD Primary Care Provider: Avtar Bruce MD Chief Complaint: hig blood sugar, nausea History of Present Illness Lady López is a 72 year old female w/ HTN, HLD, IDDM2, PE in 03/2021, CAD s/p 1 LILIYA to the LAD and 1 LILIYA to the LCx in 05/2021 , chronic HFpEF, , RLS, GERD, Who presented to [facility] ED on 02/29/2020 transfer via EMS for weakness and emesis. The patient was hospitalized from 02 24-12/2022 for elevated blood glucose of 700, generalized weakness fatigue and malaise. She was found to have kidney pneumonia and E. coli UTI and was discharged on cefdinir. The patient states that she vomited the day she returned from the hospital. She states that her blood glucose has been in the 500s for the last 3 days. In addition to vomiting, she complained of similar symptoms of malaise, fatigue, chills, insomnia, and generalized weakness to the point that she could no longer tolerate it, so he called EMS today. She also endorses intermittent dyspnea, urinary urgency, pain in her arms and legs, intermittent headaches, polyuria, and loose BM. She denies f/c, chest pain, palpitations, productive cough, wheezing, melena, and hematochezia. In the ED, her blood glucose was 568. She lives with her cat. She has 2 sons. In the ED, her BG was 568. She was given Insulin Regular 10uni IVP x 1 and stared on NS 100cc/hr and admitted. Her UA was concerning for bacteriuria. Review of Systems 2 Const: Reports: chills, fatigue, malaise and change in sleep pattern; Denies: fever(s) Eyes: Denies: change in vision or blurry vision ENMT: Reports: other (no dysphagia); Denies: ear or mastoid pain, nasal discharge or nasal congestion Card: Denies: chest pain or palpitations Resp: Reports: dyspnea (intermittent); Denies: productive cough or wheezing GI: Reports: abdominal pain (R. sided), nausea, vomiting and diarrhea; Denies: hematemesis, constipation, hematochezia or melena : Reports: urinary urgency; Denies: dysuria, urinary frequency or hematuria Musc: Reports: joint pain (arms and legs) Skin/Breast: Reports: sores (on R. foot); Denies: rash or changing lesions Neuro: Reports: headache(s) (intermittent) and other (no LOC); Denies: dizziness Psych: Denies: anxiety, depression, auditory hallucinations or tactile hallucinations Endo: Reports: polyuria; Denies: cold intolerance or heat intolerance Ervin/Lymph: Reports: easy bruising; Denies: easy bleeding Medications/Allergies Home Medications Medication Instructions Recorded Confirmed Last Taken Type blood sugar diagnostic (ReliOn #300 ea 10/05/21 02/28/23 Unknown Rx Prime Test Strips) bismuth subsalicylate 262 mg/15 mL 524 mg PO Q1H PRN Gastrointestinal 10/12/21 02/28/23 Unknown History oral suspension (Pepto-Bismol) Spasms Or Cramping cholecalciferol (vitamin D3) 25 25 mcg PO DAILY 10/12/21 02/28/23 02/23/23 History mcg (1,000 unit) tablet (Vitamin D3) methyl salicylate-menthol 10 %-3 % 1 spray topical Q4H PRN Pain 10/12/21 02/28/23 Unknown History topical spray (Salonpas Pain Relieving Jet) blood sugar diagnostic (OneTouch #100 strips 02/20/22 02/28/23 Unknown Rx Ultra Test strips) lidocaine HCl 4 % topical liquid See Rx Instructions topical 03/21/22 02/28/23 Unknown Rx roll-on (Aspercreme (lidocaine .COMPLEX #73 mL HCl)) carvedilol 12.5 mg tablet 12.5 mg PO BID #180 tabs 04/04/22 02/28/23 02/23/23 Rx pantoprazole 40 mg tablet,delayed 40 mg PO DAILY for stomach #90 tabs 04/04/22 02/28/23 02/23/23 Rx release isosorbide mononitrate 30 mg 30 mg PO DAILY #90 tabs 04/07/22 02/28/23 02/23/23 Rx tablet,extended release 24 hr clopidogrel 75 mg tablet 75 mg PO DAILY #90 tabs 04/25/22 02/28/23 02/23/23 Rx atorvastatin 80 mg tablet 80 mg PO BEDTIME 05/17/22 02/28/23 02/23/23 History fenofibrate nanocrystallized 145 145 mg PO DAILY 05/17/22 02/28/23 02/23/23 History mg tablet multivitamin 1 tab PO DAILY 05/17/22 02/28/23 02/23/23 History insulin syringe-needle U-100 1 mL #100 ea 06/21/22 02/28/23 Unknown Rx 31 gauge x 5/16 (BD Insulin Syringe Ultra-Fine) amlodipine 10 mg tablet 10 mg PO DAILY #90 tabs 07/10/22 02/28/23 02/23/23 Rx metformin 1,000 mg tablet 1,000 mg PO BID #180 tabs 07/10/22 02/28/23 02/23/23 Rx polyethylene glycol 3350 17 gram 17 g PO DAILY PRN constipation #14 10/17/22 02/28/23 02/22/23 Rx oral powder packet (Miralax) ea liraglutide 0.6 mg/0.1 mL (18 mg/3 1.2 mg (0.2 mL) SUBCUT DAILY 30 12/01/22 02/28/23 02/23/23 Rx mL) subcutaneous pen injector days #9 mL (Victoza 3-Krishna) tiotropium bromide 18 mcg capsule 1 cap inhalation DAILY #60 12/20/22 02/28/23 02/22/23 Rx with inhalation device (Spiriva inhalations with HandiHaler) umeclidinium 62.5 mcg-vilanterol 1 inh inhalation DAILY #60 ea 12/20/22 02/28/23 02/22/23 Rx 25 mcg/actuation powdr for inhalation (Anoro Ellipta) ropinirole 2 mg tablet 2 mg PO DAILY #30 tabs 01/01/23 02/28/23 02/23/23 Rx metoclopramide HCl 10 mg tablet 10 mg PO QID PRN nausea and 01/02/23 02/28/23 Unknown Rx vomiting #120 tabs acetaminophen 500 mg capsule 1,000 mg PO Q6H PRN Pain 02/01/23 02/28/23 Unknown History albuterol sulfate 90 mcg/actuation 2 inh inhalation Q4H PRN shortness 02/23/23 02/28/23 Unknown Rx aerosol inhaler of breath or wheezing #18 grams apixaban 5 mg tablet (Eliquis) 5 mg PO BID 02/23/23 02/28/23 02/23/23 History insulin glargine 100 unit/mL 25 unit SUBCUT BID 02/23/23 02/28/23 02/23/23 History subcutaneous solution (Lantus U-100 Insulin) losartan 100 mg tablet 100 mg PO QAM 02/23/23 02/28/23 02/23/23 History potassium chloride 10 mEq 10 meq PO DAILY 02/23/23 02/28/23 02/23/23 History tablet,extended release sitagliptin phosphate 100 mg 100 mg PO DAILY #30 tabs 02/23/23 02/28/23 Unknown Rx tablet (Januvia) cefdinir 300 mg capsule 300 mg PO BID 7 days #14 caps 02/25/23 02/28/23 Unknown Rx furosemide 40 mg tablet 40 mg PO DAILY 30 days #30 tabs 02/25/23 02/28/23 02/23/23 Rx insulin aspart U-100 100 unit/mL See Rx Instructions .Route 02/25/23 02/28/23 Unknown Rx (3 mL) subcutaneous pen (Novolog .COMPLEX #15 mL FlexPen U-100 Insulin aspart) Allergies Allergy/AdvReac Type Severity Reaction Status Date / Time codeine Allergy Unknown ADR-Diarrhe Verified 02/28/23 16:17 a tetanus and diphtheria Allergy Unknown Unknown Verified 02/28/23 16:17 toxoids atorvastatin Allergy ADR-Faintin Verified 02/28/23 16:17 g PFSH Acute 2 PFSH: Medical History Dilation of pulmonary artery GERD (gastroesophageal reflux disease) Restless leg syndrome Presence of stent in coronary artery in patient with coronary artery disease Heart failure with preserved ejection fraction Altered mental status Diabetes CHF (congestive heart failure) Atherosclerosis of coronary artery Hyperlipidemia Pulmonary embolism DKA (diabetic ketoacidosis) Hypertensive urgency DM type 2 (diabetes mellitus, type 2) Arthritis Asthma HTN (hypertension) Small bowel mass Surgical History Hx of cholecystectomy Family History Other Cancer Stroke Social History Smoking and tobacco/nicotine status: never used tobacco/nicotine Alcohol intake: never Substance/Drug Use: never Lives independently: Yes Household members: none Marital status: / Vitals/I&O/Wt Last Vital Signs Temp 98.7 F 02/28/23 20:53 Pulse 71 02/28/23 22:40 Resp 18 02/28/23 20:53 BP 175/75 02/28/23 20:53 Pulse Ox 97 02/28/23 20:53 O2 Del Method Room Air 02/28/23 21:52 02/28/23 02/28/23 03/01/23 14:59 22:59 06:59 Intake Total 120.1 / 120.1 Balance 120.1 / 120.1 Weight last 48 hrs Weight 96.615 kg Weight 96.615 kg Physical Exam 2 Const: GENERAL APPEARANCE: cooperative, comfortable and ill appearing; not in distress NUTRITIONAL APPEARANCE: obese ORIENTATION/CONSCIOUSNESS: Y es awake, Yes oriented to person, Yes oriented to place and Yes oriented to time HENMT: HEAD & SCALP: normocephalic and atraumatic EXTERNAL EAR: Yes external ears normal MOUTH: Normal oral and palatal mucosa present THROAT: posterior oropharynx normal Eye: CONJUNCTIVA: Yes conjunctivae normal PUPIL: Yes Equal, round and reactive pupils present EOM: No EOM abnormal Neck/C-Spine: GENERAL: Yes normal visual inspection and Yes trachea midline THYROID: Thyroid normal CAROTIDS: No bruit Lymph: LYMPHATIC: No lymphadenopathy Resp: COMMON NORMALS: normal respiratory effort and No use of accessory muscles EFFORT & INSPECTION: Yes able to speak in complete sentences A USCULTATION: clear to auscultation bilaterally, no crackles, no rales and no wheezes Cardio: BRUITS: no carotid bruits PERIPHERAL PULSES: radial pulses present and dorsalis pedis present OTHER: Regular rate and rhythm, no murmurs, rubs, gallops or clicks. GI: INSPECTION: Yes normal to inspection AUSCULTATION: Yes normoactive bowel sounds PALPATION: Yes Soft to palpation, No Tenderness to palpation present (GI), No Guarding due to palpation present (GI), No Rigid due to palpation and Yes No hepatosplenomegaly present Extremity: NARRATIVE EXTREMITY EXAM: 1-2+ b/l pitting edema to the bilateral lower extremity. GENERAL: No clubbing and No cyanosis Neuro: SENSORIUM/ORIENTATION: Yes alert, Yes oriented to person, Yes oriented to place and Yes oriented to time CRANIAL NERVES: Yes CN normal except as noted SPEECH: speech normal SENSORY EXAM: No sensory level loss detected MOTOR EXAM: 5/5 motor strength present throughout and Normal motor muscle tone present throughout Psych: APPEARANCE: Yes grossly normal ATTITUDE: Yes calm and Yes engaged SPEECH: Yes normal speech MOOD & AFFECT: Yes euthymic mood A TTENTION/CONCENTRATION: Yes attention grossly intact Data 03/01/23 04:04 03/01/23 04:04 A&P Assessment and plan (1) Failure to thrive in adult: (2) Hyperglycemia due to type 2 diabetes mellitus: Qualifiers: Diabetes mellitus rodent exterminator insulin use: with rodent exterminator use Qualified Code(s): E11.65 - Type 2 diabetes mellitus with hyperglycemia; 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 In the ED, her BG was 568. She was given Insulin Regular 10uni IVP x 1 and stared on NS 100cc/hr and admitted. #Hyperosmolar Hyperglycemia State #Uncontrolled IDDM2: Check A1c. Gave Insulin regular IVP 10units x1. lantus 20units plus moderate slidin scale insulin. #Bacteriuria: F/u UCx. Start Ceftriaxone. #chronic HFpEF #HTN - Hydralazine IVP prn. Resume meds in the AM. Monitor volume status. #HLD: Atorvastatin #CAD s/p 1 LILIYA to the LAD and 1 LILIYA to the LCx in 05/2021 #RLS #GERD - Resume meds. #Hyponatremia: On continuous NS. #Hx of PE in 03/2021 #COPD: Not in exacerbation. Restart inhalers. DVT ppx: Lovenox Attestations 2 Medical Necessity Statement*: I anticipate more than 2 midnighs. Coding Level of Care Code 88465 Diagnoses Failure to thrive in adult R62.7 Type 2 diabetes mellitus with hyperglycemia, with long-term current use of insulin E11.65; Z79.4 Diabetes mellitus rodent exterminator insulin use: with rodent exterminator use Hyperosmolar hyperglycemic state (HHS) E11.00 Time Spent (min) 76 Comment Time spent on chart review, patient interview/exam, lab/image review, and plan formulation
[2023-02-28 23:58] LABS: Glucose Point of Care 370 mg/dL (70-110)
[2023-03-01] VITALS (13 sets, daily range): BP systolic 134–165; BP diastolic 69–76; PULSE 63–72; RESP 15–20; TEMP 36.4–36.9; O2SAT 96–100
[2023-03-01] MEDS: enoxaparin 40 mg/0.4 mL Syringe SUBCUT (00:51)
[2023-03-01] MEDS: carvedilol 12.5 mg Tablet PO ×3 (00:52→18:56)
[2023-03-01 02:00] LABS: Glucose Point of Care 435 mg/dL (70-110)
[2023-03-01] MEDS: insulin lispro 100 unit/1 mL 10 UNIT SUBCUT (02:52)
[2023-03-01 04:13] LABS: Glucose Point of Care 341 mg/dL (70-110)
[2023-03-01 05:06] LABS: Basophils % 0.3 %; Eosinophils # 0.3 10^3/uL (0.0-0.8); Eosinophils % 3.6 %; Lymphocytes # 2.2 10^3/uL (0.8-4.8); Lymphocytes % 24.9 %; Mean Corpuscular HGB Conc 33.3 g/dL (30-55); Mean Corpuscular Hemoglobin 28.8 pg (27-33); Mean Corpuscular Volume 86.4 fl (85-98); Mean Platelet Volume 10.9 fL (7.4-10.4); Monocytes # 0.4 10^3/uL (0.2-0.9); Monocytes % 4.7 %; Neutrophils # 5.72 10^3/uL (1.8-7.7); Nucleated Red Blood Cells % 0 %; Platelet Count 234 10^3/cmm (157-399); Red Blood Count 3.82 10^6/uL (3.85-5.65); Red Cell Distribution Width 12.7 % (12.1-15.1); White Blood Count 8.67 10^3/uL (3.29-11.43)
[2023-03-01 05:19] LABS: INR 1.22 (0.8-1.2)
[2023-03-01 05:20] LABS: Partial Thromboplastin Time 28.8 SECONDS (23.9-36.7)
[2023-03-01 05:49] LABS: Alanine Aminotransferase 6 U/L (0-33); Albumin Level 3.3 g/dL (3.5-5.2); Alkaline Phosphatase 56 U/L (35-105); Anion Gap 13.3 (5-19); Aspartate Amino Transferase 7 U/L (0-32); Blood Urea Nitrogen 15 mg/dL (8-23); Carbon Dioxide 21 mmol/L (22-29); Chloride 102 mmol/L (98-107); Globulin 2.2 g/dL (1.3-4.6); Glucose 374 mg/dL (65-115); Magnesium 1.7 mg/dL (1.7-2.3); Osmolality Calculated 290 mOsm/kg (285-295); Phosphorus 2.2 mg/dL (2.5-4.5); Potassium 4.3 mmol/L (3.5-5.1); Sodium 132 mmol/L (136-145); Total Bilirubin 0.3 mg/dL (0.15-1.2); Total Protein 5.5 g/dL (6.6-8.7)
[2023-03-01 06:28] LABS: Glucose Point of Care 298 mg/dL (70-110)
[2023-03-01] MEDS: insulin glargine 100 units/1 mL 20 UNIT SUBCUT (06:40)
[2023-03-01] MEDS: sodium chloride 0.9% 1,000 ML 100 ML IV ×2 (07:09→18:55)
[2023-03-01] MEDS: insulin lispro 100 unit/1 mL SUBCUT ×4 (08:39→21:47)
[2023-03-01] MEDS: docusate sodium 100 mg Capsule PO ×2 (08:39→19:00)
[2023-03-01] MEDS: pantoprazole DR 40 mg Tablet PO ×2 (08:39→15:23)
[2023-03-01] MEDS: hyDRALAzine 50 mg Tablet PO ×3 (08:39→21:48)
[2023-03-01] MEDS: insulin glargine 100 units/1 mL 15 UNIT SUBCUT (08:59)
[2023-03-01] MEDS: acetaminophen 325 mg Tablet 650 MG PO (09:02)
[2023-03-01 11:16] LABS: Glucose Point of Care 279 mg/dL (70-110)
--- NOTE | 2023-03-01 11:21 | PM.PN ---
Subjective Subjective: The patient stated that she felt nauseous, and had right-sided abdominal pain this morning. She was given Tylenol for her abdominal pain, and it resolved, but she did not request anything for nausea, and states she simply waited for it to pass. She states that she felt dizzy today while lying in bed, but her dizziness resolved. She also states that she still feels weak overall. She denies fever, chills, vomiting, CP, SOB, dysuria, hematuria, increased urinary urgency or frequency. She stated that she was having the increased urinary urgency and frequency at home, but not here at this time. She also states that she took the cefdinir, with which she was discharged at home. When informed that her diabetes was uncontrolled, she admitted that she had not taken her insulin for over a month or so until approximately 3 days prior to presenting to the hospital. I also give 15 units of insulin Lantus extra this morning to the 20 units scheduled Lantus that she received today. Vitals/I&O/Wt Last Vital Signs Temp 97.6 F 03/01/23 08:00 Pulse 69 03/01/23 08:00 Resp 15 03/01/23 08:00 BP 162/72 03/01/23 08:00 Pulse Ox 96 03/01/23 08:00 O2 Del Method Room Air 03/01/23 08:00 02/28/23 03/01/23 03/01/23 22:59 06:59 14:59 Intake Total 120.1 / 120.1 120 / 240.1 1208.333 / 1208.333 Balance 120.1 / 120.1 120 / 240.1 1208.333 / 1208.333 Weight last 48 hrs Weight 96.615 kg Weight 96.615 kg Weight 96.615 kg Weight 96.615 kg Physical Exam Const: COMMON NORMALS: alert GENERAL APPEARANCE: cooperative, comfortable and ill appearing; not in distress NUTRITIONAL APPEARANCE: obese ORIENTATION/CONSCIOUSNESS: Yes awake, Yes oriented to person, Yes oriented to place and Yes oriented to time HENMT: COMMON NORMALS: normocephalic, atraumatic and external ears normal HEAD & SCALP: normocephalic and atraumatic EXTERNAL EAR: Yes external ears normal MOUTH: Normal oral and palatal mucosa present THROAT: posterior oropharynx normal Eye: COMMON NORMALS: Equal, round and reactive pupils present and conjunctivae normal CONJUNCTIVA: Yes conjunctivae normal PUPIL: Yes Equal, round and reactive pupils present EOM: No EOM abnormal Neck/C-Spine: COMMON NORMALS: Thyroid normal GENERAL: Yes normal visual inspection and Yes trachea midline THYROID: Thyroid normal CAROTIDS: No bruit Lymph: LYMPHATIC: No lymphadenopathy Resp: COMMON NORMALS: normal respiratory effort, No use of accessory muscles and clear to auscultation bilaterally EFFORT & INSPECTION: Yes able to speak in complete sentences AUSCULTATION: clear to auscultation bilaterally, no crackles, no rales and no wheezes Cardio: BRUITS: no carotid bruits PERIPHERAL PULSES: radial pulses present and dorsalis pedis present OTHER: Regular rate and rhythm, no murmurs, rubs, gallops or clicks. GI: COMMON NORMALS: Soft to palpation and No hepatosplenomegaly present INSPECTION: Yes normal to inspection AUSCULTATION: Yes normoactive bowel sounds PALPATION: Yes Soft to palpation, No Tenderness to palpation present (GI), No Guarding due to palpation present (GI), No Rigid due to palpation and Yes No hepatosplenomegaly present Extremity: NARRATIVE EXTREMITY EXAM: 1-2+ b/l pitting edema to the bilateral mid to upper ibia GENERAL: No clubbing, No cyanosis and No edema Neuro: SENSORIUM/ORIENTATION: Yes alert, Yes oriented to person, Yes oriented to place and Yes oriented to time CRANIAL NERVES: Yes CN normal except as noted SPEECH: speech normal SENSORY EXAM: No sensory level loss detected MOTOR EXAM: 5/5 motor strength present throughout and Normal motor muscle tone present throughout Psych: COMMON NORMALS: speech normal APPEARANCE: Yes grossly normal ATTITUDE: Yes calm and Yes engaged SPEECH: Yes normal speech MOOD & AFFECT: Yes euthymic mood ATTENTION/CONCENTRATION: Yes attention grossly intact Data 03/01/23 04:04 03/01/23 04:04 A&P Assessment and plan (1) Failure to thrive in adult: (2) Hyperglycemia due to type 2 diabetes mellitus: Qualifiers: Diabetes mellitus delinquency prevention social worker insulin use: with half-way use Qualified Code(s): E11.65 - Type 2 diabetes mellitus with hyperglycemia; 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 In the ED, her BG was 568. She was given Insulin Regular 10uni IVP x 1 and stared on NS 100cc/hr and admitted. #Failure to thrive: Due to uncontrolled diabetes. It may be important to investigate why she is noncompliant. #Hyperosmolar Hyperglycemia State: Continue the continuous IVF. #Uncontrolled IDDM2: Check A1c. lantus 20units plus moderate slidin scale insulin. #JEFFRY: Baseline Cr of 0.9. Cr of 1.2 on admission. Continue IVF. #Symptomatic UTI: F/u UCx. Start Ceftriaxone. #chronic HFpEF #HTN - Hydralazine IVP prn. Resume meds in the AM. Monitor volume status. Also started patient on carvedilol 12.5 mg twice daily #HLD: Atorvastatin #CAD s/p 1 LILIYA to the LAD and 1 LILIYA to the LCx in 05/2021: On Plavix and Apixaban for unclear reasons. Will resume Apixaban and investigate why she needs it #RLS: Resume ropinirole #GERD resume pantoprazole #Hyponatremia: On continuous NS. #Hx of PE in 03/2021: This is why she is on apixaban? #COPD: Not in exacerbation. Restart inhalers. # Weakness and deconditioning: PT OT. DVT ppx: Lovenox Attestations Medical Necessity Statement*: Patient's blood glucose levels remain very elevated. She remains hospitalized for JEFFRY, and symptomatic UTI. Coding Level of Care Code 18284 Diagnoses Failure to thrive in adult R62.7 Type 2 diabetes mellitus with hyperglycemia, with long-term current use of insulin E11.65; Z79.4 Diabetes mellitus delinquency prevention social worker insulin use: with half-way use Hyperosmolar hyperglycemic state (HHS) E11.00
[2023-03-01] MEDS: cefTRIAXone 1,000 MG in sodium chloride 0.9% (plus) 50 ML 100 MG IV (12:12)
[2023-03-01 13:31] LABS: Estmated Average Glucose 332; Hemoglobin A1C 13.2 % (4.0-6.0)
[2023-03-01] MEDS: ipratropium 0.5 mg/2.5 mL Neb INHALATION ×2 (15:14→20:55)
[2023-03-01] MEDS: isosorbide mononitrate ER 30 mg Tablet PO (15:23)
[2023-03-01 16:57] LABS: Glucose Point of Care 297 mg/dL (70-110)
[2023-03-01] MEDS: apixaban 5 mg Tablet PO (18:56)
[2023-03-01] MEDS: budesonide 0.5 mg/2 mL Neb INHALATION (20:55)
[2023-03-01 21:33] LABS: Glucose Point of Care 435 mg/dL (70-110)
[2023-03-01] MEDS: ropinirole 2 mg Tablet PO (21:47)
[2023-03-02] VITALS (11 sets, daily range): BP systolic 150–167; BP diastolic 66–73; PULSE 64–79; RESP 15–19; TEMP 36.6–37.1; O2SAT 95–99
[2023-03-02] MEDS: sodium chloride 0.9% 1,000 ML 100 ML IV (03:38)
[2023-03-02 05:20] LABS: Basophils # 0.1 10^3/uL (0.0-0.1); Basophils % 0.6 %; Eosinophils # 0.4 10^3/uL (0.0-0.8); Eosinophils % 5.1 %; Hematocrit 32.9 % (36-47); Lymphocytes # 1.7 10^3/uL (0.8-4.8); Lymphocytes % 21.1 %; Mean Corpuscular HGB Conc 32.8 g/dL (30-55); Mean Corpuscular Hemoglobin 28.8 pg (27-33); Mean Corpuscular Volume 87.7 fl (85-98); Mean Platelet Volume 10.7 fL (7.4-10.4); Monocytes # 0.4 10^3/uL (0.2-0.9); Monocytes % 5.2 %; Neutrophils # 5.44 10^3/uL (1.8-7.7); Neutrophils % 67.5 %; Nucleated Red Blood Cells % 0 %; Platelet Count 233 10^3/cmm (157-399); Red Blood Count 3.75 10^6/uL (3.85-5.65); Red Cell Distribution Width 12.7 % (12.1-15.1); White Blood Count 8.06 10^3/uL (3.29-11.43)
[2023-03-02 05:36] LABS: Alanine Aminotransferase 6 U/L (0-33); Albumin Level 3.3 g/dL (3.5-5.2); Alkaline Phosphatase 55 U/L (35-105); Anion Gap 10.7 (5-19); Aspartate Amino Transferase 7 U/L (0-32); Blood Urea Nitrogen 14 mg/dL (8-23); Calcium 8.7 mg/dL (8.5-10.5); Carbon Dioxide 22 mmol/L (22-29); Chloride 106 mmol/L (98-107); Globulin 2.1 g/dL (1.3-4.6); Glucose 297 mg/dL (65-115); Magnesium 1.8 mg/dL (1.7-2.3); Osmolality Calculated 290 mOsm/kg (285-295); Phosphorus 3.6 mg/dL (2.5-4.5); Potassium 4.7 mmol/L (3.5-5.1); Sodium 134 mmol/L (136-145); Total Bilirubin 0.2 mg/dL (0.15-1.2); Total Protein 5.4 g/dL (6.6-8.7)
[2023-03-02 06:35] LABS: Glucose Point of Care 327 mg/dL (70-110)
[2023-03-02] MEDS: insulin glargine 100 units/1 mL 20 UNIT SUBCUT (06:46)
[2023-03-02] MEDS: isosorbide mononitrate ER 30 mg Tablet PO (07:54)
[2023-03-02] MEDS: pantoprazole DR 40 mg Tablet PO (07:54)
[2023-03-02] MEDS: carvedilol 12.5 mg Tablet PO ×2 (07:54→17:32)
[2023-03-02] MEDS: apixaban 5 mg Tablet PO ×2 (07:54→17:32)
[2023-03-02] MEDS: hyDRALAzine 50 mg Tablet PO (07:54)
[2023-03-02] MEDS: docusate sodium 100 mg Capsule PO (07:55)
[2023-03-02] MEDS: insulin lispro 100 unit/1 mL SUBCUT ×4 (07:55→20:50)
[2023-03-02] MEDS: ondansetron 2 mg/ML SDV 2 mL 4 MG IVP (08:21)
[2023-03-02] MEDS: budesonide 0.5 mg/2 mL Neb INHALATION ×2 (08:37→20:42)
[2023-03-02] MEDS: ipratropium 0.5 mg/2.5 mL Neb INHALATION (08:37)
[2023-03-02] MEDS: cefTRIAXone 1,000 MG in sodium chloride 0.9% (plus) 50 ML 100 MG IV (11:29)
[2023-03-02 11:49] LABS: Glucose Point of Care 332 mg/dL (70-110)
--- NOTE | 2023-03-02 15:16 | P.PN_ITS ---
Subjective 2 Subjective: The patient states that she had 8-10 BMs today; however, when I spoke to the HANDS AND DIAL INSPECTOR during the day, she had only had 2 BMs. I asked the patient then to call the HANDS AND DIAL INSPECTOR's anytime she has a BM, so that it can be assessed and recorded. The HANDS AND DIAL INSPECTOR reports that the patient constantly uses a bedside commode to urinate and is constantly dribbling urine. The HANDS AND DIAL INSPECTOR did a postvoid bladder scan, the patient had 17 cc postvoid. The patient complains weakness, dizziness, lightheadedness, and nausea. She endorses that she did feel short of breath. She states that she misses her cat. She endorses right-sided abdominal pain, but denies vomiting f/c, CP, palpitations. Vitals/I&O/Wt Last Vital Signs Temp 98.0 F 03/02/23 12:00 Pulse 64 03/02/23 12:00 Resp 16 03/02/23 12:00 BP 165/66 03/02/23 12:00 Pulse Ox 96 03/02/23 12:00 O2 Del Method Room Air 03/02/23 12:00 03/02/23 03/02/23 03/02/23 06:59 14:59 22:59 Intake Total 1221.667 / 4245.000 530 / 530 Balance 1221.667 / 4245.000 530 / 530 Weight last 48 hrs Weight 96.615 kg Weight 96.615 kg Weight 96.615 kg Weight 96.615 kg Physical Exam 2 Const: COMMON NORMALS: alert GENERAL APPEARANCE: cooperative, comfortable and ill appearing; not in distress NUTRITIONAL APPEARANCE: obese ORIENTATION/CONSCIOUSNESS: Y es awake, Yes oriented to person, Yes oriented to place and Yes oriented to time HENMT: COMMON NORMALS: normocephalic, atraumatic and external ears normal H EAD & SCALP: normocephalic and atraumatic EXTERNAL EAR: Yes external ears normal MOUTH: Normal oral and palatal mucosa present THROAT: posterior oropharynx normal Eye: COMMON NORMALS: Equal, round and reactive pupils present and conjunctivae normal CONJUNCTIVA: Yes conjunctivae normal PUPIL: Yes Equal, round and reactive pupils present EOM: No EOM abnormal Neck/C-Spine: COMMON NORMALS: Thyroid normal GENERAL: Yes normal visual inspection and Yes trachea midline THYROID: Thyroid normal CAROTIDS: No bruit Lymph: LYMPHATIC: No lymphadenopathy Resp: OTHER: She is able to speak in complete sentences. She has normal respiratory effort with no use of accessory muscles. She has left lower lung field crackles, but no wheezes rales or rhonchi. Cardio: BRUITS: no carotid bruits PERIPHERAL PULSES: radial pulses present and dorsalis pedis present OTHER: Regular rate and rhythm, 1/6 systolic murmurs in all 4 valves, no rubs, no gallops or clicks. GI: COMMON NORMALS: Soft to palpation and No hepatosplenomegaly present I NSPECTION: Yes normal to inspection AUSCULTATION: Yes normoactive bowel sounds PALPATION: Yes Soft to palpation, No Tenderness to palpation present (GI), No Guarding due to palpation present (GI), No Rigid due to palpation and Yes No hepatosplenomegaly present Extremity: NARRATIVE EXTREMITY EXAM: 1+ b/l pitting edema to the lower tibia GENERAL: No clubbing, No cyanosis and No edema Neuro: SENSORIUM/ORIENTATION: Yes alert, Yes oriented to person, Yes oriented to place and Yes oriented to time CRANIAL NERVES: Yes CN normal except as noted SPEECH: speech normal SENSORY EXAM: No sensory level loss detected MOTOR EXAM: 5/5 motor strength present throughout and Normal motor muscle tone present throughout Psych: COMMON NORMALS: speech normal APPEARANCE: Yes grossly normal A TTITUDE: Yes calm and Yes engaged SPEECH: Yes normal speech MOOD & AFFECT: Yes euthymic mood ATTENTION/CONCENTRATION: Yes attention grossly intact Data 03/02/23 04:47 03/03/23 06:30 Micro: Microbiology 03/01/23 11:35 Blood Culture - Preliminary Blood NEGATIVE TO DATE 03/01/23 11:35 Blood Culture - Preliminary Blood NEGATIVE TO DATE 02/28/23 16:20 Urine Culture - Preliminary Urine,Clean Catch Yeast A&P Assessment and plan (1) Failure to thrive in adult: (2) Hyperglycemia due to type 2 diabetes mellitus: Qualifiers: Diabetes mellitus watermelon harvesting supervisor insulin use: with watermelon harvesting supervisor use Qualified Code(s): E11.65 - Type 2 diabetes mellitus with hyperglycemia; Z79.4 - termite helper (current) use of insulin (3) Hyperosmolar hyperglycemic state (HHS): (4) Acute kidney injury: Plan Lady López is a 72 year old female w/ HTN, HLD, IDDM2, PE in 03/2021, CAD s/p 1 LILIYA to the LAD and 1 LILIYA to the LCx in 05/2021 , chronic HFpEF, RLS, GERD, Who presented to [facility] ED on 02/29/2020 transfer via EMS for weakness and emesis. In the ED, her BG was 568. She was given Insulin Regular 10uni IVP x 1 and stared on NS 100cc/hr and admitted. #R. sided abdominal pain: Order abdominal US. #Diarrhea: C. difficile toxin PCR ordered and pending. Initiate contact isolation. #Failure to thrive: Due to uncontrolled diabetes. It may be important to investigate why she is noncompliant. #Hyperosmolar Hyperglycemia State: Continue the continuous IVF. #Uncontrolled IDDM2 w/ hyperglycemia: #Noncompliant - A1c of 13.2. She is on Lantus 25units at home plus moderate slidin scale insulin. - At this time her BG is still in he 330s despite Lantus 35units plus 10units given during the day, as well as 25units a night. Will Increase her Lantus to 55units and 45units at night w/ a 2am BG check. #JEFFRY: Baseline Cr of 0.9. Cr of 1.2 on admission. NS initiated at 100 cc/h in the ED. DC'd on 03/02/2023. #Hyperosmolar Hyponatremia: S/p continuous NS. Need to control BG. #Symptomatic UTI: F/u UCx. Start Ceftriaxone. #Chronic HFpEF #HTN - Hydralazine IVP prn. Resume meds in the AM. Monitor volume status. Also started patient on carvedilol 12.5 mg twice daily #HLD: Atorvastatin #CAD s/p 1 LILIYA to the LAD and 1 LILIYA to the LCx in 05/2021: On Plavix and Apixaban for unclear reasons. Will resume Apixaban and investigate why she needs it. #Hx of PE in 03/2021: Is this is why she is on apixaban? #Chronic venous stasis: Skin thickening in the b/l lower tibia consistent w/ chronic venous stasis #RLS: Resume ropinirole #GERD resume pantoprazole #COPD: Not in exacerbation. Restart inhalers. # Weakness and deconditioning: PT OT. DVT ppx: Lovenox Attestations 2 Medical Necessity Statement*: Patient remains hospitalized due to very high blood glucose levels and need for insulin titration. Coding Level of Care Code 26757 Diagnoses Failure to thrive in adult R62.7 Type 2 diabetes mellitus with hyperglycemia, with long-term current use of insulin E11.65; Z79.4 Diabetes mellitus watermelon harvesting supervisor insulin use: with watermelon harvesting supervisor use Hyperosmolar hyperglycemic state (HHS) E11.00 Acute kidney injury N17.9
[2023-03-02 16:00] LABS: Glucose Point of Care 355 mg/dL (70-110)
[2023-03-02] MEDS: amlodipine 10 mg Tablet PO (16:24)
[2023-03-02] MEDS: insulin glargine 100 units/1 mL 10 UNIT SUBCUT (16:30)
[2023-03-02 17:04] LABS: Glucose Point of Care 415 mg/dL (70-110)
[2023-03-02 20:26] LABS: Glucose Point of Care 410 mg/dL (70-110)
[2023-03-02] MEDS: insulin glargine 100 units/1 mL 25 UNIT SUBCUT (20:50)
[2023-03-02] MEDS: ropinirole 2 mg Tablet PO (20:51)
[2023-03-02] MEDS: hyDRALAzine 50 mg Tablet 100 MG PO (20:51)
[2023-03-03] VITALS (12 sets, daily range): BP systolic 135–166; BP diastolic 66–76; PULSE 65–90; RESP 16–18; TEMP 36.6–37.1; O2SAT 93–98
[2023-03-03] MEDS: ondansetron 2 mg/ML SDV 2 mL 4 MG IVP (03:12)
[2023-03-03 06:30] LABS: Glucose Point of Care 309 mg/dL (70-110)
[2023-03-03 07:15] LABS: Alanine Aminotransferase 7 U/L (0-33); Albumin Level 3.5 g/dL (3.5-5.2); Alkaline Phosphatase 56 U/L (35-105); Anion Gap 12.3 (5-19); Aspartate Amino Transferase 9 U/L (0-32); Blood Urea Nitrogen 9 mg/dL (8-23); Calcium 9.1 mg/dL (8.5-10.5); Carbon Dioxide 24 mmol/L (22-29); Chloride 100 mmol/L (98-107); Globulin 2.7 g/dL (1.3-4.6); Glucose 287 mg/dL (65-115); Magnesium 1.8 mg/dL (1.7-2.3); Osmolality Calculated 283 mOsm/kg (285-295); Phosphorus 3.6 mg/dL (2.5-4.5); Potassium 4.3 mmol/L (3.5-5.1); Sodium 132 mmol/L (136-145); Total Bilirubin 0.2 mg/dL (0.15-1.2); Total Protein 6.2 g/dL (6.6-8.7)
[2023-03-03] MEDS: insulin glargine 100 units/1 mL 35 UNIT SUBCUT (08:12)
[2023-03-03] MEDS: budesonide 0.5 mg/2 mL Neb INHALATION ×2 (08:14→20:33)
[2023-03-03] MEDS: ipratropium 0.5 mg/2.5 mL Neb INHALATION (08:18)
[2023-03-03] MEDS: insulin lispro 100 unit/1 mL SUBCUT ×4 (10:05→22:03)
[2023-03-03] MEDS: apixaban 5 mg Tablet PO ×2 (10:06→17:32)
[2023-03-03] MEDS: insulin glargine 100 units/1 mL 10 UNIT SUBCUT (10:06)
[2023-03-03] MEDS: pantoprazole DR 40 mg Tablet PO (10:06)
[2023-03-03] MEDS: docusate sodium 100 mg Capsule PO ×2 (10:07→17:32)
[2023-03-03] MEDS: carvedilol 12.5 mg Tablet PO ×2 (10:07→17:32)
[2023-03-03] MEDS: amlodipine 10 mg Tablet PO (10:07)
[2023-03-03] MEDS: isosorbide mononitrate ER 30 mg Tablet PO (10:07)
[2023-03-03] MEDS: hyDRALAzine 50 mg Tablet 100 MG PO ×3 (10:07→22:02)
[2023-03-03 11:14] LABS: Glucose Point of Care 372 mg/dL (70-110)
[2023-03-03 17:19] LABS: Glucose Point of Care 353 mg/dL (70-110)
[2023-03-03] MEDS: cefTRIAXone 1,000 MG in sodium chloride 0.9% (plus) 50 ML 100 MG IV (20:02)
[2023-03-03 21:11] LABS: Glucose Point of Care 278 mg/dL (70-110)
[2023-03-03] MEDS: ropinirole 2 mg Tablet PO (22:02)
[2023-03-03] MEDS: insulin glargine 100 units/1 mL 45 UNIT SUBCUT (22:06)
[2023-03-03] MEDS: losartan 50 mg Tablet 100 MG PO (23:22)
[2023-03-04] VITALS (13 sets, daily range): BP systolic 127–164; BP diastolic 66–74; PULSE 68–77; RESP 14–19; TEMP 36.4–37; O2SAT 94–98
[2023-03-04 02:25] LABS: Glucose Point of Care 178 mg/dL (70-110)
[2023-03-04] MEDS: acetaminophen 325 mg Tablet 650 MG PO (02:30)
[2023-03-04] MEDS: ondansetron 2 mg/ML SDV 2 mL 4 MG IVP (02:32)
[2023-03-04] MEDS: losartan 50 mg Tablet 100 MG PO (05:20)
[2023-03-04 06:31] LABS: Glucose Point of Care 164 mg/dL (70-110)
[2023-03-04] MEDS: insulin glargine 100 units/1 mL 55 UNIT SUBCUT (06:38)
[2023-03-04] MEDS: isosorbide mononitrate ER 30 mg Tablet PO (08:53)
[2023-03-04] MEDS: apixaban 5 mg Tablet PO ×2 (08:53→17:58)
[2023-03-04] MEDS: amlodipine 10 mg Tablet PO (08:53)
[2023-03-04] MEDS: hyDRALAzine 50 mg Tablet 100 MG PO ×3 (08:53→21:00)
[2023-03-04] MEDS: carvedilol 12.5 mg Tablet PO ×2 (08:53→17:58)
[2023-03-04] MEDS: pantoprazole DR 40 mg Tablet PO (08:53)
[2023-03-04] MEDS: insulin lispro 100 unit/1 mL SUBCUT ×4 (08:54→20:59)
[2023-03-04] MEDS: budesonide 0.5 mg/2 mL Neb INHALATION ×2 (09:43→21:22)
[2023-03-04] MEDS: ipratropium 0.5 mg/2.5 mL Neb INHALATION (09:43)
[2023-03-04 10:56] LABS: Glucose Point of Care 220 mg/dL (70-110)
--- NOTE | 2023-03-04 14:10 | PM.PN ---
Subjective Subjective: The patient states that she had 8-10 BMs today; however, when I spoke to the INDEPENDENT MARKETING CONSULTANT during the day, she had only had 2 BMs. I asked the patient then to call the INDEPENDENT MARKETING CONSULTANT's anytime she has a BM, so that it can be assessed and recorded. The INDEPENDENT MARKETING CONSULTANT reports that the patient constantly uses a bedside commode to urinate and is constantly dribbling urine. The INDEPENDENT MARKETING CONSULTANT did a postvoid bladder scan, the patient had 17 cc postvoid. The patient complains weakness, dizziness, lightheadedness, and nausea. She endorses that she did feel short of breath. She states that she misses her cat. She endorses right-sided abdominal pain, but denies vomiting f/c, CP, palpitations. Vitals/I&O/Wt Last Vital Signs Temp 98.2 F 03/04/23 11:40 Pulse 69 03/04/23 11:40 Resp 18 03/04/23 11:40 BP 160/66 03/04/23 11:40 Pulse Ox 96 03/04/23 11:40 O2 Del Method Room Air 03/04/23 11:40 03/03/23 03/04/23 03/04/23 22:59 06:59 14:59 Intake Total 290 / 1250 720 / 720 Balance 290 / 1250 720 / 720 Weight last 48 hrs Weight 100.868 kg Weight 96.615 kg Physical Exam Const: COMMON NORMALS: alert GENERAL APPEARANCE: cooperative, comfortable and ill appearing; not in distress NUTRITIONAL APPEARANCE: obese ORIENTATION/CONSCIOUSNESS: Yes awake, Yes oriented to person, Yes oriented to place and Yes oriented to time HENMT: COMMON NORMALS: normocephalic, atraumatic and external ears normal HEAD & SCALP: normocephalic and atraumatic EXTERNAL EAR: Yes external ears normal MOUTH: Normal oral and palatal mucosa present THROAT: posterior oropharynx normal Eye: COMMON NORMALS: Equal, round and reactive pupils present and conjunctivae normal CONJUNCTIVA: Yes conjunctivae normal PUPIL: Yes Equal, round and reactive pupils present EOM: No EOM abnormal Neck/C-Spine: COMMON NORMALS: Thyroid normal GENERAL: Yes normal visual inspection and Yes trachea midline THYROID: Thyroid normal CAROTIDS: No bruit Lymph: LYMPHATIC: No lymphadenopathy Resp: COMMON NORMALS: normal respiratory effort, No use of accessory muscles and clear to auscultation bilaterally EFFORT & INSPECTION: Yes able to speak in complete sentences AUSCULTATION: clear to auscultation bilaterally, no crackles, no rales and no wheezes OTHER: She is able to speak in complete sentences. She has normal respiratory effort with no use of accessory muscles. She has left lower lung field crackles, but no wheezes rales or rhonchi. Cardio: BRUITS: no carotid bruits PERIPHERAL PULSES: radial pulses present and dorsalis pedis present OTHER: Regular rate and rhythm, 1/6 systolic murmurs in all 4 valves, no rubs, no gallops or clicks. GI: COMMON NORMALS: Soft to palpation and No hepatosplenomegaly present INSPECTION: Yes normal to inspection AUSCULTATION: Yes normoactive bowel sounds PALPATION: Yes Soft to palpation, No Tenderness to palpation present (GI), No Guarding due to palpation present (GI), No Rigid due to palpation and Yes No hepatosplenomegaly present Extremity: NARRATIVE EXTREMITY EXAM: 1+ b/l pitting edema to the lower tibia GENERAL: No clubbing, No cyanosis and No edema Neuro: SENSORIUM/ORIENTATION: Yes alert, Yes oriented to person, Yes oriented to place and Yes oriented to time CRANIAL NERVES: Yes CN normal except as noted SPEECH: speech normal SENSORY EXAM: No sensory level loss detected MOTOR EXAM: 5/5 motor strength present throughout and Normal motor muscle tone present throughout Psych: COMMON NORMALS: speech normal APPEARANCE: Yes grossly normal ATTITUDE: Yes calm and Yes engaged SPEECH: Yes normal speech MOOD & AFFECT: Yes euthymic mood ATTENTION/CONCENTRATION: Yes attention grossly intact Data 03/02/23 04:47 03/03/23 06:30 A&P Assessment and plan (1) Failure to thrive in adult: (2) Hyperglycemia due to type 2 diabetes mellitus: Qualifiers: Diabetes mellitus cylinder machine operator insulin use: with senior living use Qualified Code(s): E11.65 - Type 2 diabetes mellitus with hyperglycemia; Z79.4 - MCC (current) use of insulin (3) Hyperosmolar hyperglycemic state (HHS): (4) Acute kidney injury: Plan Lady López is a 72 year old female w/ HTN, HLD, IDDM2, PE in 03/2021, CAD s/p 1 LILIYA to the LAD and 1 LILIYA to the LCx in 05/2021 , chronic HFpEF, RLS, GERD, Who presented to [facility] ED on 02/29/2020 transfer via EMS for weakness and emesis. In the ED, her BG was 568. She was given Insulin Regular 10uni IVP x 1 and stared on NS 100cc/hr and admitted. #R. sided abdominal pain: Order abdominal US. #Diarrhea: C. difficile toxin PCR ordered and pending. Initiate contact isolation. #Failure to thrive: Due to uncontrolled diabetes. It may be important to investigate why she is noncompliant. #Hyperosmolar Hyperglycemia State: Continue the continuous IVF. #Uncontrolled IDDM2 w/ hyperglycemia: #Noncompliant - A1c of 13.2. She is on Lantus 25units at home plus moderate slidin scale insulin. - At this time her BG is still in he 330s despite Lantus 35units plus 10units given during the day, as well as 25units a night. Will Increase her Lantus to 55units and 45units at night w/ a 2am BG check. #JEFFRY: Baseline Cr of 0.9. Cr of 1.2 on admission. NS initiated at 100 cc/h in the ED. DC'd on 03/02/2023. #Hyperosmolar Hyponatremia: S/p continuous NS. Need to control BG. #Symptomatic UTI: F/u UCx. Start Ceftriaxone. #Chronic HFpEF #HTN - Hydralazine IVP prn. Resume meds in the AM. Monitor volume status. Also started patient on carvedilol 12.5 mg twice daily #HLD: Atorvastatin #CAD s/p 1 LILIYA to the LAD and 1 LILIYA to the LCx in 05/2021: On Plavix and Apixaban for unclear reasons. Will resume Apixaban and investigate why she needs it. #Hx of PE in 03/2021: Is this is why she is on apixaban? #Chronic venous stasis: Skin thickening in the b/l lower tibia consistent w/ chronic venous stasis #RLS: Resume ropinirole #GERD resume pantoprazole #COPD: Not in exacerbation. Restart inhalers. # Weakness and deconditioning: PT OT. DVT ppx: Lovenox Attestations Medical Necessity Statement*: The patient needs to remain hospitalized due to her excessively elevated blood glucose levels and the need to constantly titrate her insulin levels. Coding Level of Care Code Acute Code for Chg Fwd Diagnoses Failure to thrive in adult R62.7 Type 2 diabetes mellitus with hyperglycemia, with long-term current use of insulin E11.65; Z79.4 Diabetes mellitus senior living insulin use: with senior living use Hyperosmolar hyperglycemic state (HHS) E11.00 Acute kidney injury N17.9
[2023-03-04 16:57] LABS: Glucose Point of Care 213 mg/dL (70-110)
--- NOTE | 2023-03-04 19:50 | USR_ITS ---
PROCEDURE INFORMATION: Exam: US Abdomen Complete Exam date and time: 03/04/2023 7:03 AM Age: 72 years old Clinical indication: Abdominal pain; Generalized; Prior surgery; Surgery date: 6+ months; Surgery type: Gb removed; Additional info: Right sided abdominal tenderness TECHNIQUE: Imaging protocol: Real-time ultrasound of the abdomen with image documentation. Complete exam. COMPARISON: 1. US abdomen limited [id number] 10/27/2022 10:[address] abdomen pelvis wo con [id number] 10/17/2022 7:51 PM FINDINGS: Liver: The liver parenchyma is unremarkable though suboptimally evaluated due to body habitus. Liver length is 19 cm. Gallbladder: The gallbladder is absent. Biliary ducts: The imaged portion of the common bile duct measures 6 mm diameter. On the prior CT the common bile duct measured 16 mm at the florse hepatis and 7 mm at the pancreatic head. Pancreas: The visible portion of the pancreas is unremarkable. Right kidney: The right kidney is unremarkable. The right kidney measures 11.1 cm in length. Left kidney: The left kidney is unremarkable. The left kidney measures 12 cm in length. Spleen: Splenic size is normal. There are scattered calcifications consistent with healed granulomas. Spleen measures 10.1 cm maximal dimension. Aorta: The aorta is obscured by overlying bowel gas. Inferior vena cava: The upper IVC is unremarkable. US/US abdomen complete* [id number] IMPRESSION: 1. No significant pathologic findings are identified on this exam. 2. Cholecystectomy. 3. Limited visualization of the common bile duct. The visible portion measures 6 mm diameter currently. Prior CT showed a 16 mm diameter common bile duct. 4. Incidental findings above.
[2023-03-04 20:57] LABS: Glucose Point of Care 218 mg/dL (70-110)
[2023-03-04] MEDS: insulin glargine 100 units/1 mL 45 UNIT SUBCUT (20:59)
[2023-03-04] MEDS: ropinirole 2 mg Tablet PO (21:00)
[2023-03-04] MEDS: cefTRIAXone 1,000 MG in sodium chloride 0.9% (plus) 50 ML 100 MG IV (21:00)
--- NOTE | 2023-03-04 22:55 | P.PN_ITS ---
Subjective 2 Subjective: The patient states that she had 8-10 BMs today. When asked whether she notified the nursing assistance, she stated that anytime she had a BM, one of them was in the room. Per the nurse, the patient did not notify the associate of science in nursing whenever she had a BM. Overall, 4 total BMs were recorded. The patient continues to endorse right-sided abdominal pain. She endorses nausea earlier this morning, that resolved. She denies dizziness, fever, chills, shortness of breath, palpitations. Vitals/I&O/Wt Last Vital Signs Temp 98.3 F 03/04/23 19:25 Pulse 71 03/04/23 20:00 Resp 15 03/04/23 20:00 BP 147/71 03/04/23 19:25 Pulse Ox 95 03/04/23 20:00 O2 Del Method Room Air 03/04/23 20:00 03/04/23 03/04/23 03/04/23 06:59 14:59 22:59 Intake Total 720 / 720 530 / 1250 Balance 720 / 720 530 / 1250 Weight last 48 hrs Weight 100.868 kg Weight 96.615 kg Physical Exam 2 Const: COMMON NORMALS: alert GENERAL APPEARANCE: cooperative, comfortable and ill appearing; not in distress NUTRITIONAL APPEARANCE: obese ORIENTATION/CONSCIOUSNESS: Y es awake, Yes oriented to person, Yes oriented to place and Yes oriented to time HENMT: COMMON NORMALS: normocephalic, atraumatic and external ears normal H EAD & SCALP: normocephalic and atraumatic EXTERNAL EAR: Yes external ears normal MOUTH: Normal oral and palatal mucosa present THROAT: posterior oropharynx normal Eye: COMMON NORMALS: Equal, round and reactive pupils present and conjunctivae normal CONJUNCTIVA: Yes conjunctivae normal PUPIL: Yes Equal, round and reactive pupils present EOM: No EOM abnormal Neck/C-Spine: COMMON NORMALS: Thyroid normal GENERAL: Yes normal visual inspection and Yes trachea midline THYROID: Thyroid normal CAROTIDS: No bruit Lymph: LYMPHATIC: No lymphadenopathy Resp: COMMON NORMALS: normal respiratory effort, No use of accessory muscles and clear to auscultation bilaterally EFFORT & INSPECTION: Yes able to speak in complete sentences AUSCULTATION: clear to auscultation bilaterally, no crackles, no rales and no wheezes OTHER: She is able to speak in complete sentences. She has normal respiratory effort with no use of accessory muscles. She has left lower lung field crackles, but no wheezes rales or rhonchi. Cardio: BRUITS: no carotid bruits PERIPHERAL PULSES: radial pulses present and dorsalis pedis present OTHER: Regular rate and rhythm, 1/6 systolic murmurs in all 4 valves, no rubs, no gallops or clicks. GI: COMMON NORMALS: Soft to palpation and No hepatosplenomegaly present I NSPECTION: Yes normal to inspection AUSCULTATION: Yes normoactive bowel sounds PALPATION: Yes Soft to palpation, No Tenderness to palpation present (GI), No Guarding due to palpation present (GI), No Rigid due to palpation and Yes No hepatosplenomegaly present Extremity: NARRATIVE EXTREMITY EXAM: 1+ b/l pitting edema to the lower tibia GENERAL: No clubbing, No cyanosis and No edema Neuro: SENSORIUM/ORIENTATION: Yes alert, Yes oriented to person, Yes oriented to place and Yes oriented to time CRANIAL NERVES: Yes CN normal except as noted SPEECH: speech normal SENSORY EXAM: No sensory level loss detected MOTOR EXAM: 5/5 motor strength present throughout and Normal motor muscle tone present throughout Psych: COMMON NORMALS: speech normal APPEARANCE: Yes grossly normal A TTITUDE: Yes calm and Yes engaged SPEECH: Yes normal speech MOOD & AFFECT: Yes euthymic mood ATTENTION/CONCENTRATION: Yes attention grossly intact Data 03/02/23 04:47 03/03/23 06:30 Micro: Microbiology 02/28/23 16:20 Urine Culture - Final Urine,Clean Catch Darline albicans A&P Assessment and plan (1) Failure to thrive in adult: (2) Hyperglycemia due to type 2 diabetes mellitus: Qualifiers: Diabetes mellitus intermediate insulin use: with remote computer terminal operator use Qualified Code(s): E11.65 - Type 2 diabetes mellitus with hyperglycemia; Z79.4 - long-term (current) use of insulin (3) Hyperosmolar hyperglycemic state (HHS): (4) Acute kidney injury: Plan Lady López is a 72 year old female w/ HTN, HLD, IDDM2, PE in 03/2021, CAD s/p 1 LILIYA to the LAD and 1 LILIYA to the LCx in 05/2021 , chronic HFpEF, RLS, GERD, Who presented to [facility] ED on 02/29/2020 transfer via EMS for weakness and emesis. In the ED, her BG was 568. She was given Insulin Regular 10uni IVP x 1 and stared on NS 100cc/hr and admitted. #R. sided abdominal pain: Abdominal US #Diarrhea: C. difficile toxin PCR ordered and pending. Initiate contact isolation. #Failure to thrive: Due to uncontrolled diabetes. It may be important to investigate why she is noncompliant. #Hyperosmolar Hyperglycemia State: Continue the continuous IVF. #Uncontrolled IDDM2 w/ hyperglycemia: #Noncompliant - A1c of 13.2. She is on Lantus 25units at home plus moderate slidin scale insulin. - At this time her BG is still in he 330s despite Lantus 35units plus 10units given during the day, as well as 25units a night. On Lantus 55units and 45units at night w/ a 2am BG check. Will hold Sliding scale insulin to better mirror her living conditions at home. #JEFFRY: Baseline Cr of 0.9. Cr of 1.2 on admission. NS initiated at 100 cc/h in the ED. DC'd on 03/02/2023. #Hyperosmolar Hyponatremia: S/p continuous NS. Need to control BG. #Symptomatic Darline UTI: UCx. Start Ceftriaxone. #Chronic HFpEF #HTN - Hydralazine IVP prn. Resume meds of amlodipine, losartan, and Imdur. #HLD: Atorvastatin #CAD s/p 1 LILIYA to the LAD and 1 LILIYA to the LCx in 05/2021: On Plavix and Apixaban for unclear reasons. #Hx of PE in 03/2021: Is this is why she is on apixaban? #Chronic venous stasis: Skin thickening in the b/l lower tibia consistent w/ chronic venous stasis #RLS: Resume ropinirole #GERD resume pantoprazole #COPD: Not in exacerbation. Restart inhalers. # Weakness and deconditioning: PT OT. DVT ppx: Lovenox Attestations 2 Medical Necessity Statement*: The patient needs to remain for constant monitoring and titration of her insulin dosing regimen. Coding Level of Care Code 92398 Diagnoses Failure to thrive in adult R62.7 Type 2 diabetes mellitus with hyperglycemia, with long-term current use of insulin E11.65; Z79.4 Diabetes mellitus remote computer terminal operator insulin use: with remote computer terminal operator use Hyperosmolar hyperglycemic state (HHS) E11.00 Acute kidney injury N17.9
[2023-03-05] VITALS (7 sets, daily range): BP systolic 130–154; BP diastolic 54–72; PULSE 68–84; RESP 15–18; TEMP 36.7–36.9; O2SAT 95–98
[2023-03-05 02:32] LABS: Glucose Point of Care 129 mg/dL (70-110)
[2023-03-05 03:04] LABS: Glucose Point of Care 122 mg/dL (70-110)
[2023-03-05] MEDS: albumin 25 G/100 ML BAG 60 G IV (03:41)
[2023-03-05] MEDS: FUROsemide 10 mg/mL SDV 10mL 60 MG IVP (03:41)
[2023-03-05] MEDS: losartan 50 mg Tablet 100 MG PO (05:18)
[2023-03-05 05:19] LABS: Glucose Point of Care 93 mg/dL (70-110)
--- NOTE | 2023-03-05 05:57 | PC.NURSE ---
Lantus ordered for 0600 per MAY. Patients POC glucose is 93. This nurse contacted doctor requarding clarification to administer or not. The doctor did not respond to voatle message. This nurse held lantus at this time.
[2023-03-05 06:34] LABS: Glucose Point of Care 82 mg/dL (70-110)
[2023-03-05] MEDS: budesonide 0.5 mg/2 mL Neb INHALATION (07:13)
[2023-03-05] MEDS: ipratropium 0.5 mg/2.5 mL Neb INHALATION ×2 (07:13→08:07)
[2023-03-05] MEDS: hyDRALAzine 50 mg Tablet 100 MG PO (10:44)
[2023-03-05] MEDS: pantoprazole DR 40 mg Tablet PO (10:44)
[2023-03-05] MEDS: carvedilol 12.5 mg Tablet PO (10:44)
[2023-03-05] MEDS: isosorbide mononitrate ER 30 mg Tablet PO (10:44)
[2023-03-05] MEDS: amlodipine 10 mg Tablet PO (10:44)
[2023-03-05] MEDS: docusate sodium 100 mg Capsule PO (10:44)
[2023-03-05] MEDS: apixaban 5 mg Tablet PO (10:44)
[2023-03-05] MEDS: clopidogrel 75 mg Tablet PO (10:44)
[2023-03-05 10:53] LABS: Glucose Point of Care 249 mg/dL (70-110)
--- NOTE | 2023-03-05 14:15 | P.DS_ITS ---
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 The patient was hospitalized from 02 24-12/2022 for elevated blood glucose of 700, generalized weakness fatigue and malaise. She was found to have kidney pneumonia and E. coli UTI and was discharged on cefdinir. The patient states that she vomited the day she returned from the hospital. She states that her blood glucose has been in the 500s for the last 3 days. In addition to vomiting, she complained of similar symptoms of malaise, fatigue, chills, insomnia, and generalized weakness to the point that she could no longer tolerate it, so she called EMS today. Hospital Course Hospital Course Patient was admitted for hyperosmolar hyperglycemia. She was given insulin and her home dose of Lantus had to be increased. The patient is admittedly nonadherent to taking her insulin for the past couple of months. Her hemoglobin A1c is 13.2 however just a few months ago it was 8. Her blood sugars have now normalized for the a.m. and throughout the day in the low 200s. She already has caretakers at home and an RN to check on her weekly. She is agreeable to taking her insulin as prescribed. I have increased her to 50 units every morning and 35 units every afternoon Physical Exam Narrative: Alert and oriented to person place and situation, NAD Heart: Regular normal S1-S2 without murmurs clicks gallops or rubs Lungs: Clear to auscultation without wheezes rales or rhonchi Abdomen: Morbidly obese soft nontender nondistended positive bowel sounds Extremities no clubbing cyanosis or edema Discharge Data Studies Completed and Pending Completed Studies During Hospitalization Category Date Time Status US abdomen complete* [id number] Routine Ultrasound 03/04/23 19:50 Completed Pending at discharge Category Date Time Status Blood Culture Stat Lab 03/01/23 11:35 Results Clostridium Difficile PCR Routine Lab 03/02/23 15:38 Received Radiology Impressions Abdomen Ultrasound 03/04/23 19:50 IMPRESSION: 1. No significant pathologic findings are identified on this exam. 2. Cholecystectomy. 3. Limited visualization of the common bile duct. The visible portion measures 6 mm diameter currently. Prior CT showed a 16 mm diameter common bile duct. 4. Incidental findings above. Laboratory Results WBC 8.06 10^3/uL (3.29-11.43) 03/02/23 04:47 RBC 3.75 10^6/uL (3.85-5.65) L 03/02/23 04:47 Hgb 10.80 g/dL (11.27-16.99) L 03/02/23 04:47 Hct 32.9 % (36-47) L 03/02/23 04:47 MCV 87.7 fl (85-98) 03/02/23 04:47 MCH 28.8 pg (27-33) 03/02/23 04:47 MCHC 32.8 g/dL (30-55) 03/02/23 04:47 RDW 12.7 % (12.1-15.1) 03/02/23 04:47 Plt Count 233 10^3/cmm (157-399) 03/02/23 04:47 MPV 10.7 fL (7.4-10.4) H 03/02/23 04:47 Neut % (Auto) 67.5 % 03/02/23 04:47 Lymph % (Auto) 21.1 % 03/02/23 04:47 [place] % (Auto) 5.2 % 03/02/23 04:47 Eos % (Auto) 5.1 % 03/02/23 04:47 Baso % (Auto) 0.6 % 03/02/23 04:47 Neut # (Auto) 5.44 10^3/uL (1.8-7.7) 03/02/23 04:47 Lymph # (Auto) 1.7 10^3/uL (0.8-4.8) 03/02/23 04:47 [place] # (Auto) 0.4 10^3/uL (0.2-0.9) 03/02/23 04:47 Eos # (Auto) 0.4 10^3/uL (0.0-0.8) 03/02/23 04:47 Baso # (Auto) 0.1 10^3/uL (0.0-0.1) 03/02/23 04:47 Nucleated RBC % (auto) 0 % 03/02/23 04:47 Nucleated RBCs # 0.0 /100WBC 03/02/23 04:47 PT 15.90 SECONDS (12.1-14.9) H 03/01/23 04:04 INR 1.22 (0.8-1.2) H 03/01/23 04:04 APTT 28.8 SECONDS (23.9-36.7) 03/01/23 04:04 Sodium 132 mmol/L (136-145) L 03/03/23 06:30 Potassium 4.3 mmol/L (3.5-5.1) 03/03/23 06:30 Chloride 100 mmol/L (98-107) 03/03/23 06:30 Carbon Dioxide 24 mmol/L (22-29) 03/03/23 06:30 Anion Gap 12.3 (5-19) 03/03/23 06:30 BUN 9 mg/dL (8-23) 03/03/23 06:30 Creatinine 0.8 mg/dL (0.5-0.9) 03/03/23 06:30 GFR Calculation Not Reportable 03/03/23 06:30 Glucose 287 mg/dL (65-115) H 03/03/23 06:30 POC Glucose 249 mg/dL (70-110) H 03/05/23 10:46 Estimat Average Glucose 332 03/01/23 04:04 Hemoglobin A1c 13.2 % (4.0-6.0) H 03/01/23 04:04 Calculated Osmolality 283 mOsm/kg (285-295) L 03/03/23 06:30 Calcium 9.1 mg/dL (8.5-10.5) 03/03/23 06:30 Phosphorus 3.6 mg/dL (2.5-4.5) 03/03/23 06:30 Magnesium 1.8 mg/dL (1.7-2.3) 03/03/23 06:30 Total Bilirubin 0.2 mg/dL (0.15-1.2) 03/03/23 06:30 AST 9 U/L (0-32) 03/03/23 06:30 ALT 7 U/L (0-33) 03/03/23 06:30 Alkaline Phosphatase 56 U/L (35-105) 03/03/23 06:30 Total Protein 6.2 g/dL (6.6-8.7) L 03/03/23 06:30 Albumin 3.5 g/dL (3.5-5.2) 03/03/23 06:30 Globulin 2.7 g/dL (1.3-4.6) 03/03/23 06:30 Lipase 67 U/L (13-60) H 02/28/23 14:40 Urine Color Colorless (Yellow) 02/28/23 16:20 Urine Appearance Sl hazy (CLEAR) A 02/28/23 16:20 Urine pH 5 (5-7) 02/28/23 16:20 Ur Specific [place] 1.015 (1.005-1.030) 02/28/23 16:20 Urine Protein Neg (Negative) 02/28/23 16:20 Urine Glucose (UA) 4+ (Normal) H 02/28/23 16:20 Urine Ketones Negative (Negative) 02/28/23 16:20 Urine Blood 3+ (Negative) H 02/28/23 16:20 Urine Nitrate Negative (Negative) 02/28/23 16:20 Urine Bilirubin Neg (Negative) 02/28/23 16:20 Urine Urobilinogen Norm mg/dL (Negative) 02/28/23 16:20 Ur Leukocyte Esterase 2+ (Negative) H 02/28/23 16:20 Urine RBC 0-4 /hpf (0-2) H 02/28/23 16:20 Urine WBC 0-4 /hpf (0-5) H 02/28/23 16:20 Ur Squamous Epith Cells 0-4 /hpf (0-5) H 02/28/23 16:20 Amorphous Sediment Not Reportable 02/28/23 16:20 Urine Bacteria Trace /hpf (NONE) 02/28/23 16:20 Urine Mucus None /hpf 02/28/23 16:20 Urine Yeast 2+ /hpf H 02/28/23 16:20 Serum Ketones Negative (Negative) 02/28/23 14:40 Vitals Last Vital Signs Temp 98.0 F 03/05/23 11:25 Pulse 84 03/05/23 11:25 Resp 17 03/05/23 11:25 BP 154/72 03/05/23 11:25 Pulse Ox 95 03/05/23 11:25 O2 Del Method Room Air 03/05/23 11:25 Discharge Plan Discharge Patient Disposition: Home Condition: Stable Prescriptions: New insulin glargine 100 unit/mL Solution 50 unit SUBCUT QAM Qty: 3 0RF insulin glargine 100 unit/mL Solution 35 unit SUBCUT BEDTIME Qty: 3 0RF Continued tiotropium bromide [Spiriva with HandiHaler] 18 mcg capsule, w/inhalation device 1 cap inhalation DAILY Qty: 60 2RF Rx Instructions: puncture 1 cap using device; one dose = 2 inhalations Anoro Ellipta 62.5-25 mcg/actuation blister with device 1 inh inhalation DAILY Qty: 60 2RF ropinirole 2 mg tablet 2 mg PO DAILY Qty: 30 1RF acetaminophen 500 mg capsule 1,000 mg PO Q6H PRN (Reason: Pain) Aspercreme (lidocaine HCl) 4 % liquid roll-on See Rx Instructions topical .COMPLEX Qty: 73 0RF Rx Instructions: apply to affected painful area of abdomen topically up to qid as needed Victoza 3-Krishna 0.6 mg/0.1 mL (18 mg/3 mL) pen injector 1.2 mg SUBCUT DAILY 30 Days Qty: 9 2RF (DME) ReliOn Prime Test Strips Strip See Rx Instructions .Route Qty: 300 3RF Rx Instructions: As directed with Relion meter TID 90 day supply (DME) OneTouch Ultra Test Strip See Rx Instructions .ROUTE .COMPLEX Qty: 100 11RF Dose Instruction: DIRECTED, CHECK SUGARS DAILY FASTING AND OCCASIONALLY ONE HOUR POST MEAL INSTEAD OF FASTING E11.9 Rx Instructions: DIRECTED, CHECK SUGARS DAILY FASTING AND OCCASIONALLY ONE HOUR POST MEAL INSTEAD OF FASTING E11.9 carvedilol 12.5 mg tablet 12.5 mg PO BID Qty: 180 3RF pantoprazole 40 mg tablet,delayed release (DR/EC) 40 mg PO DAILY Qty: 90 3RF isosorbide mononitrate 30 mg tablet extended release 24 hr 30 mg PO DAILY Qty: 90 3RF clopidogrel 75 mg tablet 75 mg PO DAILY Qty: 90 3RF (DME) insulin syringe-needle U-100 [BD Insulin Syringe Ultra-Fine] 1 mL 31 gauge x 5/16 syringe See Rx Instructions .ROUTE .COMPLEX Qty: 100 3RF Dose Instruction: DIRECTED Rx Instructions: DIRECTED amlodipine 10 mg tablet 10 mg PO DAILY Qty: 90 3RF metformin 1,000 mg tablet 1,000 mg PO BID Qty: 180 3RF Hold Instructions: Resume on 06/11/21. Hold on 06/09 and 06/10. metoclopramide HCl 10 mg tablet 10 mg PO QID PRN (Reason: nausea and vomiting) Qty: 120 1RF bismuth subsalicylate [Pepto-Bismol] 262 mg/15 mL Suspension 524 mg PO Q1H PRN (Reason: Gastrointestinal Spasms Or Cramping) Rx Instructions: do not exceed 8 doses in a 24 hour period cholecalciferol (vitamin D3) [Vitamin D3] 25 mcg (1,000 unit) Tablet 25 mcg PO DAILY Salonpas Pain Relieving Jet 10-3 % Aerosol,[place] 1 spray TOPICAL Q4H PRN (Reason: Pain) polyethylene glycol 3350 [Miralax] 17 gram powder in packet 17 g PO DAILY PRN (Reason: constipation) Qty: 14 0RF furosemide 40 mg tablet 40 mg PO DAILY 30 Days Qty: 30 0RF insulin aspart U-100 [Novolog FlexPen U-100 Insulin] 100 unit/mL (3 mL) insulin pen See Rx Instructions .ROUTE .COMPLEX Qty: 15 0RF Rx Instructions: Inject, subcut, 3 times daily, after meals, based on sliding scale provided multivitamin Tablet 1 tab PO DAILY atorvastatin 80 mg tablet 80 mg PO BEDTIME fenofibrate nanocrystallized 145 mg tablet 145 mg PO DAILY potassium chloride 10 mEq tablet extended release 10 meq PO DAILY losartan 100 mg tablet 100 mg PO QAM Eliquis 5 mg tablet 5 mg PO BID albuterol sulfate 90 mcg/actuation HFA aerosol inhaler 2 inh INHALATION Q4H PRN (Reason: shortness of breath or wheezing) Qty: 18 0RF Januvia 100 mg tablet 100 mg PO DAILY Qty: 30 0RF Discontinued cefdinir 300 mg capsule 300 mg PO BID 7 Days Qty: 14 0RF insulin glargine [Lantus U-100 Insulin] 100 unit/mL solution 25 unit SUBCUT BID Discharge Orders: Discharge Order (Routine); Ordered 03/05/23 Ordered By: Konstantin Larsen Referrals: Avtar Bruce MD [Primary Care Provider] - 03/22/23 2:30 pm () Discharge Diet: Diabetic Discharge Activity: Increase activity as tolerated Plan of Treatment: Take your insulin. check blood sugars atleast twice a day alternating times. For instance befor breakfast and dinner one day and before lunch and bedtime the next. Record and bring to your doctor. Discharge Attestations Time Spent in Discharge Care*: less than 30 min Status at Discharge: Cognitive status at discharge: mildly impaired cognition , Behavioral status at discharge: cooperative , Quality Metrics Clinical Quality Measures [ No reported AMI, CVA or VTE this stay] Coding Level of Care Code Acute Code for Chg Fwd Diagnoses Failure to thrive in adult R62.7 Type 2 diabetes mellitus with hyperglycemia, with long-term current use of insulin E11.65; Z79.4 Diabetes mellitus long-term insulin use: with long-term use Hyperosmolar hyperglycemic state (HHS) E11.00 Acute kidney injury N17.9
[2023-03-06 14:46] LABS: Clostridium Difficile PCR NOT DETECTED (NOT DETECTED)
== END 2023-03-05 16:09 | disposition home or self-care (01) | DRG 638 ==
LOC: ER 15:09 → MEDSURG 03-01 06:07
PROVIDERS: Admitting Provider Internal Medicine; Emergency Provider Family Medicine; PCP Family Medicine; Visit Provider Internal Medicine
DX: E11.00 Type 2 diabetes mellitus with hyperosmolarity without nonketotic hyperglycemic-hyperosmolar coma (NKHHC) (principal); B37.49 Other urogenital candidiasis; E87.1 Hypo-osmolality and hyponatremia; I50.32 Chronic diastolic (congestive) heart failure; N17.9 Acute kidney failure, unspecified; E11.65 Type 2 diabetes mellitus with hyperglycemia; Z79.4 Long term (current) use of insulin; Z91.148 Patient's other noncompliance with medication regimen for other reason; K21.9 Gastro-esophageal reflux disease without esophagitis; G25.81 Restless legs syndrome; I25.10 Atherosclerotic heart disease of native coronary artery without angina pectoris; Z95.5 Presence of coronary angioplasty implant and graft; I11.0 Hypertensive heart disease with heart failure; E78.5 Hyperlipidemia, unspecified; Z86.711 Personal history of pulmonary embolism; J44.9 Chronic obstructive pulmonary disease, unspecified; I87.8 Other specified disorders of veins; D64.9 Anemia, unspecified; R62.7 Adult failure to thrive; R19.7 Diarrhea, unspecified
CPT/HCPCS: 36415; 36416; 76700; 80053; 81001; 82009; 82962; 83036; 83690; 83735; 84100; 85025; 85610; 85730; 87040; 87086; 87106; 87493; 94640; 96372; 96374; 97165; 99285; J0696; J1650; J1815; J1940; J2405; J7030; J7626; J7644; P9046

== ENCOUNTER 2023-03-21 19:30 | Inpatient (IN) | payer MEDICAID, SELFPAY ==
[2023-03-21 19:34] VITALS: BP 150/83; PULSE 74; RESP 16; TEMP 36.7; O2SAT 94; BMI 35.4
--- NOTE | 2023-03-21 19:34 | CTR_ITS ---
PROCEDURE INFORMATION: Exam: CT Cervical Spine Without Contrast Exam date and time: 03/21/2023 8:56 PM Age: 72 years old Clinical indication: Injury or trauma; Fall; Blunt trauma; Additional info: Fall, neck pain TECHNIQUE: Imaging protocol: Computed tomography of the cervical spine without contrast. Radiation optimization: All CT scans at this facility use at least one of these dose optimization techniques: automated exposure control; mA and/or kV adjustment per patient size (includes targeted exams where dose is matched to clinical indication); or iterative reconstruction. COMPARISON: CT angio headneck* [id number] 03/22/2021 4:03 PM RADIATION DOSE METRICS: Total DLP (mGy-cm): 201.17 FINDINGS: Bones/joints: The ring of C1 and the atlantoaxial joint are intact. No significant prevertebral soft tissue swelling, normal alignment. No marked central canal stenosis. Chronic marked degenerative disc and facet changes throughout the cervical spine with multilevel foramina compromise. Lungs: Lung apices are normal. Soft tissues: Unremarkable. CT/CT cervical spin wo con* [id number] IMPRESSION: No acute fracture or subluxation.
--- NOTE | 2023-03-21 19:34 | XRR_ITS ---
PROCEDURE INFORMATION: Exam: XR Left Hip Exam date and time: 03/21/2023 8:13 PM Age: 72 years old Clinical indication: Injury or trauma; Fall; Other: Unknown; Additional info: Fall ; hip pain TECHNIQUE: Imaging protocol: Radiologic exam of the left hip. Views: 2 or 3 views hip with pelvis when performed. COMPARISON: CT abdomen pelvis wo con [id number] 10/17/2022 7:51 PM FINDINGS: Bones/joints: Comminuted displaced intratrochanteric fracture of the left femur. Soft tissues: Unremarkable. XR/XR hip LT 2-3V wo/w pel* [id number] IMPRESSION: Comminuted displaced intratrochanteric fracture of the left femur.
--- NOTE | 2023-03-21 19:34 | CTR_ITS ---
PROCEDURE INFORMATION: Exam: CT Head Without Contrast Exam date and time: 03/21/2023 8:54 PM Age: 72 years old Clinical indication: Injury or trauma; Fall; Blunt trauma (contusions or hematomas); Additional info: Fall, head injury TECHNIQUE: Imaging protocol: Computed tomography of the head without contrast. Radiation optimization: All CT scans at this facility use at least one of these dose optimization techniques: automated exposure control; mA and/or kV adjustment per patient size (includes targeted exams where dose is matched to clinical indication); or iterative reconstruction. COMPARISON: CT head wo con* [id number] 10/12/2021 12:49 PM RADIATION DOSE METRICS: Total DLP (mGy-cm): 1076.98 FINDINGS: Brain: No hemorrhage, mass effect or brain herniation. Bilateral ill-defined periventricular hypodensities consistent with marked chronic microvascular white matter ischemic changes.Basal cisterns are normal. Cerebral ventricles: Ventricles and Sulci are normal for age. Paranasal sinuses: Paranasal sinuses are clear. Mastoid air cells: Partial opacification of the mastoid air cells, [id number]. Orbital cavities: Orbits are symmetric and without abnormality. Bones/joints: Unremarkable. No acute fracture. Soft tissues: Unremarkable. Vasculature: There is atherosclerotic calcification of the carotid arteries. CT/CT head wo con* [id number] IMPRESSION: 1. No acute intracranial abnormality. 2. Partial opacification of the mastoid air cells which can be seen with mastoiditis.
--- NOTE | 2023-03-21 19:34 | XRR_ITS ---
PROCEDURE INFORMATION: Exam: XR Left Wrist Exam date and time: 03/21/2023 7:49 PM Age: 72 years old Clinical indication: Injury or trauma; Fall; Other: Unknown; Additional info: Fall, wrist deformity TECHNIQUE: Imaging protocol: Radiologic exam of the left wrist. Views: 3 or more views. COMPARISON: No relevant prior studies available. FINDINGS: Bones/joints: Comminuted and displaced intra-articular fracture of the distal left radius. Displaced fracture of the distal left ulnar metaphysis and avulsion fracture of the ulnar styloid. Bones are osteopenic. Soft tissues: Normal. XR/XR wrist LT min 3V* [id number] IMPRESSION: 1. Comminuted and displaced intra-articular fracture of the distal left radius. 2. Displaced fracture of the distal left ulnar metaphysis and avulsion fracture of the ulnar styloid.
--- NOTE | 2023-03-21 19:36 | XRR_ITS ---
PROCEDURE INFORMATION: Exam: XR Chest Exam date and time: 03/21/2023 8:25 PM Age: 72 years old Clinical indication: Injury or trauma; Fall; Other: Unknown; Additional info: AMS, fall TECHNIQUE: Imaging protocol: Radiologic exam of the chest. Views: 1 view. COMPARISON: CR (CHEST, ) 02/24/2023 10:46 AM FINDINGS: Lungs: Unremarkable. No consolidation. Pleural spaces: Unremarkable. No pleural effusion. No pneumothorax. Heart/Mediastinum: Unremarkable. No cardiomegaly. Bones/joints: Unremarkable. XR/XR chest 1V [id number] IMPRESSION: No acute findings.
[2023-03-21 19:42] VITALS: BP 150/83; PULSE 75; RESP 20; O2SAT 90
--- NOTE | 2023-03-21 19:51 | ED_ITS ---
HPI - Fall 2 General: Chief Complaint: Fall Stated Complaint: FALL Time Seen by Provider: 03/21/23 19:33 History of Present Illness: Patient arrives from assisted living by ambulance. Currently she had a fall. She has Eliquis listed in her medication list. She had an unwitnessed fall. She has obvious deformities to her wrist and has shortening and rotation of her left leg. She received 100 mics of fentanyl and route. EMS reports she was fairly confused when they arrived and she will not give any history at this time. Review of Systems 2 Narrative: Unable to obtain secondary to confusion/decreased mentation PFSH ED 2 PFSH: Medical History Dilation of pulmonary artery GERD (gastroesophageal reflux disease) Restless leg syndrome Presence of stent in coronary artery in patient with coronary artery disease Heart failure with preserved ejection fraction Altered mental status Diabetes CHF (congestive heart failure) Atherosclerosis of coronary artery Hyperlipidemia Pulmonary embolism DKA (diabetic ketoacidosis) Hypertensive urgency DM type 2 (diabetes mellitus, type 2) Arthritis Asthma HTN (hypertension) Small bowel mass Surgical History Hx of cholecystectomy Family History Other Cancer Stroke Social History Smoking and tobacco/nicotine status: never used tobacco/nicotine Alcohol intake: never Substance/Drug Use: never Lives independently: Yes Household members: none Marital status: / Physical Exam 2 Narrative: EXAM NARRATIVE: General: Patient is somnolent, confused she does arouse to pain. Skin: Warm, dry. Head: Normocephalic, atraumatic. Neck: Supple, trachea midline. Eye: Extraocular movements are intact. Ears, nose, mouth and throat: Dry oral mucosa Cardiovascular: Regular, Normal peripheral perfusion. Respiratory: Lungs are clear to auscultation, respirations are non-labored, breath sounds are equal, Symmetrical chest wall expansion. Gastrointestinal: Soft, Nontender, Non distended, Normal bowel sounds. Musculoskeletal: Patient has obvious shortening and rotation of her left leg with pain at the hip with movement. She has an obvious deformity of her left wrist with several abrasions and possible open fracture. Neurological: Patient is very confused but appears nonfocal. She moves all extremities. No facial deficits. Psychiatric: Unable to assess Course 2 Vital Signs: Vital signs: Vital Signs Temperature 98.0 F 03/21/23 19:34 Pulse Rate 76 03/21/23 21:12 Respiratory Rate 18 03/21/23 21:12 Blood Pressure 150/83 03/21/23 21:12 Pulse Oximetry 95 03/21/23 21:12 Oxygen Delivery Me thod Room Air 03/21/23 21:12 MDM - Fall Medical Decision Making Multitrauma from fall. CT of her head and neck were ordered. Unknown if she hit her head. She is on blood thinners. X-rays of her hip knee and femur were ordered. Fairly obviously has a hip fracture. She also has an obvious wrist fracture so films of the wrist forearm and elbow are ordered. She is confused so an ABG, head CT, chest x-ray, urinalysis and lab work were all done. Lab Data 03/21/23 19:05 03/21/23 21:09 Radiology Impressions Cervical Spine CT 03/21/23 19:34 IMPRESSION: No acute fracture or subluxation. Head CT 03/21/23 19:34 IMPRESSION: 1. No acute intracranial abnormality. 2. Partial opacification of the mastoid air cells which can be seen with mastoiditis. Hip/Pelvis X-Ray 03/21/23 19:34 IMPRESSION: Comminuted displaced intratrochanteric fracture of the left femur. Wrist X-Ray 03/21/23 19:34 IMPRESSION: 1. Comminuted and displaced intra-articular fracture of the distal left radius. 2. Displaced fracture of the distal left ulnar metaphysis and avulsion fracture of the ulnar styloid. Chest X-Ray 03/21/23 19:36 IMPRESSION: No acute findings. Elbow X-Ray 03/21/23 20:06 IMPRESSION: Question subtle fracture at the lateral base of the left radial head seen on both the AP and lateral projections. Correlate with point tenderness. Forearm X-Ray 03/21/23 20:06 IMPRESSION: 1. Comminuted and displaced intra-articular fracture of the distal left radius. 2. Displaced fracture of the distal left ulnar metaphysis and avulsion fracture of the ulnar styloid. Femur X-Ray 01/03/24 20:07 IMPRESSION: Comminuted displaced intertrochanteric fracture of the left femur. Knee X-Ray 03/21/23 20:07 IMPRESSION: No acute fracture or joint effusion. Laboratory Results WBC 8.34 10^3/uL (3.29-11.43) 03/21/23 19:05 RBC 3.97 10^6/uL (3.85-5.65) 03/21/23 19:05 Hgb 11.50 g/dL (11.27-16.99) 03/21/23 19:05 Hct 34.6 % (36-47) L 03/21/23 19:05 MCV 87.2 fl (85-98) 03/21/23 19:05 MCH 29.0 pg (27-33) 03/21/23 19:05 MCHC 33.2 g/dL (30-55) 03/21/23 19:05 RDW 13.3 % (12.1-15.1) 03/21/23 19:05 Plt Count 350 10^3/cmm (157-399) 03/21/23 19:05 MPV 10.5 fL (7.4-10.4) H 03/21/23 19:05 Neut % (Auto) 68.5 % 03/21/23 19:05 Lymph % (Auto) 22.1 % 03/21/23 19:05 [place] % (Auto) 5.4 % 03/21/23 19:05 Eos % (Auto) 2.4 % 03/21/23 19:05 Baso % (Auto) 0.6 % 03/21/23 19:05 Neut # (Auto) 5.72 10^3/uL (1.8-7.7) 03/21/23 19:05 Lymph # (Auto) 1.8 10^3/uL (0.8-4.8) 03/21/23 19:05 [place] # (Auto) 0.5 10^3/uL (0.2-0.9) 03/21/23 19:05 Eos # (Auto) 0.2 10^3/uL (0.0-0.8) 03/21/23 19:05 Baso # (Auto) 0.1 10^3/uL (0.0-0.1) 03/21/23 19:05 Nucleated RBC % (auto) 0 % 03/21/23 19:05 Nucleated RBCs # 0.0 /100WBC 03/21/23 19:05 PT 15.00 SECONDS (12.1-14.9) H 03/21/23 19:05 INR 1.14 (0.8-1.2) 03/21/23 19:05 APTT 27.8 SECONDS (23.9-36.7) 03/21/23 19:05 Sodium 136 mmol/L (136-145) 03/21/23 21:09 Potassium 4.5 mmol/L (3.5-5.1) 03/21/23 21:09 Chloride 101 mmol/L (98-107) 03/21/23 21:09 Carbon Dioxide 23 mmol/L (22-29) 03/21/23 21:09 Anion Gap 16.5 (5-19) 03/21/23 21:09 BUN 30 mg/dL (8-23) H 03/21/23 21:09 Creatinine 1.3 mg/dL (0.5-0.9) H 03/21/23 21:09 GFR Calculation Not Reportable 03/21/23 21:09 Glucose 263 mg/dL (65-115) H 03/21/23 21:09 Calculated Osmolality 297 mOsm/kg (285-295) H 03/21/23 21:09 Lactic Acid 2.3 mmol/L (0.5-2.2) H 03/21/23 19:51 Calcium 9.5 mg/dL (8.5-10.5) 03/21/23 21:09 Total Bilirubin 0.3 mg/dL (0.15-1.2) 03/21/23 21:09 AST 12 U/L (0-32) 03/21/23 21:09 ALT 7 U/L (0-33) 03/21/23 21:09 Alkaline Phosphatase 53 U/L (35-105) 03/21/23 21:09 Total Protein 7.1 g/dL (6.6-8.7) 03/21/23 21:09 Albumin 4.0 g/dL (3.5-5.2) 03/21/23 21:09 Globulin 3.1 g/dL (1.3-4.6) 03/21/23 21:09 Urine Color Yellow (Yellow) 03/21/23 20:40 Urine Appearance Clear (CLEAR) 03/21/23 20:40 Urine pH 5 (5-7) 03/21/23 20:40 Ur Specific [place] 1.005 (1.005-1.030) 03/21/23 20:40 Urine Protein Neg (Negative) 03/21/23 20:40 Urine Glucose (UA) Norm (Normal) 03/21/23 20:40 Urine Ketones Negative (Negative) 03/21/23 20:40 Urine Blood Neg (Negative) 03/21/23 20:40 Urine Nitrate Positive (Negative) H 03/21/23 20:40 Urine Bilirubin Neg (Negative) 03/21/23 20:40 Urine Urobilinogen Neg mg/dL (Negative) 03/21/23 20:40 Ur Leukocyte Esterase Trace (Negative) H 03/21/23 20:40 Urine RBC None /hpf (0-2) 03/21/23 20:40 Urine WBC 10-15 /hpf (0-5) H 03/21/23 20:40 Ur Squamous Epith Cells 0-4 /hpf (0-5) H 03/21/23 20:40 Amorphous Sediment Not Reportable 03/21/23 20:40 Urine Bacteria 3+ /hpf (NONE) H 03/21/23 20:40 Urine Opiates Screen Negative ng/mL (Negative) 03/21/23 20:40 Ur Barbiturates Screen Negative ng/mL (Negative) 03/21/23 20:40 Ur Phencyclidine Scrn Negative ng/mL (Negative) 03/21/23 20:40 Ur Amphetamines Screen Negative ng/mL (Negative) 03/21/23 20:40 U Benzodiazepines Scrn Negative ng/mL (Negative) 03/21/23 20:40 Urine Cocaine Screen Negative ng/mL (Negative) 03/21/23 20:40 U Marijuana (THC) Screen Negative ng/mL (Negative) 03/21/23 20:40 Influenza Type A Ag negative (Negative) 03/21/23 20:38 Influenza Type B Ag negative (Negative) 03/21/23 20:38 All radiology interpretation(s) finalized by discharge Other Data - IV fluids in the emergency room -IV Ancef for open fracture. -Life-saving tetanus was administered -Orthopedics consultation. Dr. Blue is seeing the patient in the emergency room and reducing her wrist with a hematoma block. -I discussed the patient with the hospitalist on-call who is admitting the patient. - Discussed findings and plan with patient. Answered any questions. - All laboratory values were reviewed and interpreted personally by myself, the ER physician - All imaging was reviewed and interpreted personally by myself, the ER physician. - Evaluation and treatment of this problem were appropriate in the emergency setting Discharge Plan Discharge Condition: Stable Prescriptions: No Action tiotropium bromide [Spiriva with HandiHaler] 18 mcg capsule, w/inhalation device 1 cap inhalation DAILY Qty: 60 2RF Rx Instructions: puncture 1 cap using device; one dose = 2 inhalations Anoro Ellipta 62.5-25 mcg/actuation blister with device 1 inh inhalation DAILY Qty: 60 2RF acetaminophen 500 mg capsule 1,000 mg PO Q6H PRN (Reason: Pain) Aspercreme (lidocaine HCl) 4 % liquid roll-on See Rx Instructions topical .COMPLEX Qty: 73 0RF Rx Instructions: apply to affected painful area of abdomen topically up to qid as needed Victoza 3-Krishna 0.6 mg/0.1 mL (18 mg/3 mL) pen injector 1.2 mg SUBCUT DAILY 30 Days Qty: 9 2RF (DME) ReliOn Prime Test Strips Strip See Rx Instructions .Route Qty: 300 3RF Rx Instructions: As directed with Relion meter TID 90 day supply (DME) OneTouch Ultra Test Strip See Rx Instructions .ROUTE .COMPLEX Qty: 100 11RF Dose Instruction: DIRECTED, CHECK SUGARS DAILY FASTING AND OCCASIONALLY ONE HOUR POST MEAL INSTEAD OF FASTING E11.9 Rx Instructions: DIRECTED, CHECK SUGARS DAILY FASTING AND OCCASIONALLY ONE HOUR POST MEAL INSTEAD OF FASTING E11.9 carvedilol 12.5 mg tablet 12.5 mg PO BID Qty: 180 3RF clopidogrel 75 mg tablet 75 mg PO DAILY Qty: 90 3RF (DME) insulin syringe-needle U-100 [BD Insulin Syringe Ultra-Fine] 1 mL 31 gauge x 5/16 syringe See Rx Instructions .ROUTE .COMPLEX Qty: 100 3RF Dose Instruction: DIRECTED Rx Instructions: DIRECTED amlodipine 10 mg tablet 10 mg PO DAILY Qty: 90 3RF metformin 1,000 mg tablet 1,000 mg PO BID Qty: 180 3RF Hold Instructions: Resume on 06/11/21. Hold on 06/09 and 06/10. isosorbide mononitrate 30 mg tablet extended release 24 hr See Rx Instructions .ROUTE .COMPLEX Qty: 90 0RF Dose Instruction: TAKE 1 TABLET BY MOUTH EVERY DAY Rx Instructions: TAKE 1 TABLET BY MOUTH EVERY DAY metoclopramide HCl 10 mg tablet 10 mg PO QID PRN (Reason: nausea and vomiting) Qty: 120 1RF pantoprazole 40 mg tablet,delayed release (DR/EC) 40 mg PO DAILY Qty: 90 3RF ropinirole 2 mg tablet 2 mg PO DAILY Qty: 30 1RF potassium chloride 10 mEq tablet extended release 10 meq PO DAILY Qty: 90 1RF losartan 100 mg tablet 100 mg PO QAM Qty: 90 1RF fenofibrate nanocrystallized 145 mg tablet 145 mg PO DAILY Qty: 90 1RF atorvastatin 80 mg tablet 80 mg PO BEDTIME Qty: 90 1RF Eliquis 5 mg tablet 5 mg PO BID Qty: 90 3RF bismuth subsalicylate [Pepto-Bismol] 262 mg/15 mL Suspension 524 mg PO Q1H PRN (Reason: Gastrointestinal Spasms Or Cramping) Rx Instructions: do not exceed 8 doses in a 24 hour period cholecalciferol (vitamin D3) [Vitamin D3] 25 mcg (1,000 unit) Tablet 25 mcg PO DAILY Salonpas Pain Relieving Jet 10-3 % Aerosol,[place] 1 spray TOPICAL Q4H PRN (Reason: Pain) polyethylene glycol 3350 [Miralax] 17 gram powder in packet 17 g PO DAILY PRN (Reason: constipation) Qty: 14 0RF furosemide 40 mg tablet 40 mg PO DAILY 30 Days Qty: 30 0RF insulin aspart U-100 [Novolog FlexPen U-100 Insulin] 100 unit/mL (3 mL) insulin pen See Rx Instructions .ROUTE .COMPLEX Qty: 15 0RF Rx Instructions: Inject, subcut, 3 times daily, after meals, based on sliding scale provided multivitamin Tablet 1 tab PO DAILY albuterol sulfate 90 mcg/actuation HFA aerosol inhaler 2 inh INHALATION Q4H PRN (Reason: shortness of breath or wheezing) Qty: 18 0RF Januvia 100 mg tablet 100 mg PO DAILY Qty: 30 0RF insulin glargine 100 unit/mL Solution 35 unit SUBCUT BEDTIME Qty: 3 0RF insulin glargine 100 unit/mL Solution 50 unit SUBCUT QAM Qty: 3 0RF Referrals: Avtar Bruce MD [Primary Care Provider] - Coding Level of Care Code ED Film Replacement Orderer for Sasha Cox
[2023-03-21 19:59] LABS: Basophils # 0.1 10^3/uL (0.0-0.1); Basophils % 0.6 %; Eosinophils # 0.2 10^3/uL (0.0-0.8); Eosinophils % 2.4 %; Hematocrit 34.6 % (36-47); Lymphocytes # 1.8 10^3/uL (0.8-4.8); Lymphocytes % 22.1 %; Mean Corpuscular HGB Conc 33.2 g/dL (30-55); Mean Corpuscular Volume 87.2 fl (85-98); Mean Platelet Volume 10.5 fL (7.4-10.4); Monocytes # 0.5 10^3/uL (0.2-0.9); Monocytes % 5.4 %; Neutrophils # 5.72 10^3/uL (1.8-7.7); Neutrophils % 68.5 %; Nucleated Red Blood Cells % 0 %; Platelet Count 350 10^3/cmm (157-399); Red Blood Count 3.97 10^6/uL (3.85-5.65); Red Cell Distribution Width 13.3 % (12.1-15.1); White Blood Count 8.34 10^3/uL (3.29-11.43)
--- NOTE | 2023-03-21 20:06 | XRR_ITS ---
PROCEDURE INFORMATION: Exam: XR Left Forearm Exam date and time: 03/21/2023 8:08 PM Age: 72 years old Clinical indication: Injury or trauma; Fall; Other: Visible deformity of left distal arm; Additional info: Deformity, fall TECHNIQUE: Imaging protocol: Radiologic exam of the left forearm. Views: 2 views. COMPARISON: CR ( EX, ) 03/21/2023 7:49 PM FINDINGS: Bones/joints: Comminuted and displaced intra-articular fracture of the distal left radius. Displaced fracture of the distal left ulnar metaphysis and avulsion fracture of the ulnar styloid. Soft tissues: Normal. XR/XR forearm LT 2V [id number] IMPRESSION: 1. Comminuted and displaced intra-articular fracture of the distal left radius. 2. Displaced fracture of the distal left ulnar metaphysis and avulsion fracture of the ulnar styloid.
--- NOTE | 2023-03-21 20:06 | XRR_ITS ---
PROCEDURE INFORMATION: Exam: XR Left Elbow Exam date and time: 03/21/2023 8:08 PM Age: 72 years old Clinical indication: Injury or trauma; Fall; Other: Unknown TECHNIQUE: Imaging protocol: Radiologic exam of the left elbow. Views: 1 or 2 views. COMPARISON: CR (UP EXM, ) 03/21/2023 8:08 PM FINDINGS: Bones/joints: Question subtle fracture at the lateral base of the left radial head seen on both the AP and lateral projections. Correlate with point tenderness. Soft tissues: Normal. XR/XR elbow LT 2V [id number] IMPRESSION: Question subtle fracture at the lateral base of the left radial head seen on both the AP and lateral projections. Correlate with point tenderness.
--- NOTE | 2023-03-21 20:07 | XRR_ITS ---
PROCEDURE INFORMATION: Exam: XR Left Femur Exam date and time: 03/21/2023 8:13 PM Age: 72 years old Clinical indication: Injury or trauma; Fall; Other: Unknown TECHNIQUE: Imaging protocol: Radiologic exam of the left femur. Views: 2 views. COMPARISON: [place] [id number] 02/25/2023 6:40 AM FINDINGS: Bones/joints: Comminuted displaced intertrochanteric fracture of the left femur. Soft tissues: Unremarkable. Vasculature: Atherosclerotic disease. XR/XR femur LT min 2V* [id number] IMPRESSION: Comminuted displaced intertrochanteric fracture of the left femur.
--- NOTE | 2023-03-21 20:07 | XRR_ITS ---
PROCEDURE INFORMATION: Exam: XR Left Knee Exam date and time: 03/21/2023 8:20 PM Age: 72 years old Clinical indication: Injury or trauma; Fall; Other: Unknown TECHNIQUE: Imaging protocol: Radiologic exam of the left knee. Views: 1 or 2 views. COMPARISON: [place] [id number] 02/25/2023 6:40 AM FINDINGS: Bones/joints: Severe degenerative changes in the left patellofemoral compartment. No acute fracture or joint effusion. Moderate degenerative changes in the medial compartment. Soft tissues: Normal. Vasculature: Atherosclerotic disease. XR/XR knee LT 1-2V [id number] IMPRESSION: No acute fracture or joint effusion.
[2023-03-21 20:14] LABS: Lactic Sepsis W/Reflex 2.3 mmol/L (0.5-2.2)
[2023-03-21 20:23] LABS: INR 1.14 (0.8-1.2)
[2023-03-21 20:25] LABS: Partial Thromboplastin Time 27.8 SECONDS (23.9-36.7)
[2023-03-21 20:56] LABS: Amphetamines Screen Urine Negative (Negative); Barbiturates Screen Urine Negative (Negative); Benzodiazepines Screen Urine Negative (Negative); Cocaine Screen Urine Negative (Negative); Opiate Screen Urine Negative (Negative); PCP Screen Urine Negative (Negative); THC Screen Urine Negative (Negative)
[2023-03-21 21:02] LABS: Influenza A by IFA negative (Negative); Influenza B by IFA negative (Negative)
[2023-03-21 21:03] LABS: Bilirubin Urine Neg (Negative); Blood Urine Neg (Negative); Glucose Urine UA Norm (Normal); Ketones Urine Negative (Negative); Leukocyte Esterase Urine Trace (Negative); Nitrate Urine Positive (Negative); Protein Urine Neg (Negative); Specific Gravity, Urine 1.005 (1.005-1.030); Urine Appearance Clear (CLEAR); Urine Color Yellow (Yellow); Urobilinogen Urine Neg (Negative); pH Urine 5 (5-7)
[2023-03-21 21:04] LABS: Add Urine Culture? Yes; Bacteria Urine 3+ /hpf; Squamous Epithelial Cell Urine 0-4 /hpf (0-5)
[2023-03-21] MEDS: ceFAZolin 2,000 MG in sodium chloride 0.9% (plus) 50 ML 100 MG IV (21:04)
[2023-03-21 21:12] VITALS: BP 150/83; PULSE 76; RESP 18; O2SAT 95
[2023-03-21 21:41] LABS: ABG PCO2 38.5 mmHg (35-45); ABG PH Result 7.36 (7.35-7.45); Alveolar-Arterial Oxygen Gradi 1.4 mmHg (5-10); Arterial Blood Gas Hematocrit 34.5 % (37-47); Base Excess ABG -3.7 mmol/L (-2.0-2.0); Blood Gas Allen Test Pos; Blood Gas Sample Site Radial, right; Blood Gas Sample Type Arterial; Carboxyhemoglobin 0.8 %THgb (0.4-20.1); HCO3 ABG 21.5 mmol/L (22-26); HGB O2 Sat 95.5 % (95-100); Ionized Calcium Level - ABG 1.2 mmol/L (1.1-1.4); Methemoglobin 0.6 % (0.4-1.5); Oxygen Device ROOM AIR; Oxygen Saturation ABG 96.8; PO2 ABG 91.3 mmHg (80.0-100.0); Potassium Level - ABG 4.1 mmol/L (3.5-5.0); Total Hemoglobin 11.2 g/dL (12-16)
[2023-03-21 21:42] LABS: Reflex Lactate Order REFLEX LACTIC ORDERD
[2023-03-21 21:46] LABS: Alanine Aminotransferase 7 U/L (0-33); Alkaline Phosphatase 53 U/L (35-105); Anion Gap 16.5 (5-19); Aspartate Amino Transferase 12 U/L (0-32); Blood Urea Nitrogen 30 mg/dL (8-23); Calcium 9.5 mg/dL (8.5-10.5); Carbon Dioxide 23 mmol/L (22-29); Chloride 101 mmol/L (98-107); Globulin 3.1 g/dL (1.3-4.6); Glucose 263 mg/dL (65-115); Osmolality Calculated 297 mOsm/kg (285-295); Potassium 4.5 mmol/L (3.5-5.1); Sodium 136 mmol/L (136-145); Total Bilirubin 0.3 mg/dL (0.15-1.2); Total Protein 7.1 g/dL (6.6-8.7)
--- NOTE | 2023-03-21 21:54 | P.HP_ITS ---
Providers/Chief Complaint 2 Primary Care Provider: Avtar Bruce MD Chief Complaint: FALL History of Present Illness Lady López is a 72 year old female who With a past medical history of chronic hypoxia uses 3 L at baseline, insulin-dependent type 2 diabetes mellitus, CAD status post stenting x 2, hyperlipidemia, history of CHF, on anticoagulant therapy, history of PE on Eliquis,is from an assisted living facility, however his apartment, in the ER she has been diagnosed with left hip fracture and wrist fracture, Dr. Blue saw her at the bedside in the close reduction of her wrist, recommend antibiotics and keeping her n.p.o. for ORIF left hip, patient is not to provide any history, she is able to make eye contact but not able to give any detail, I do not have any records to find out about her facility. I reviewed her previous records and case management records she seems to have in-home services with [facility] I tried to call the number stated in her case management records of her sons, left a voicemail Review of Systems 2 General: Reports: ROS unobtainable due to medical condition Medications/Allergies Home Medications Medication Instructions Recorded Confirmed Last Taken Type blood sugar diagnostic (ReliOn #300 ea 10/05/21 02/28/23 Unknown Rx Prime Test Strips) bismuth subsalicylate 262 mg/15 mL 524 mg PO Q1H PRN Gastrointestinal 10/12/21 02/28/23 Unknown History oral suspension (Pepto-Bismol) Spasms Or Cramping cholecalciferol (vitamin D3) 25 25 mcg PO DAILY 10/12/21 02/28/23 02/23/23 History mcg (1,000 unit) tablet (Vitamin D3) methyl salicylate-menthol 10 %-3 % 1 spray topical Q4H PRN Pain 10/12/21 02/28/23 Unknown History topical spray (Salonpas Pain Relieving Jet) blood sugar diagnostic (OneTouch #100 strips 02/20/22 02/28/23 Unknown Rx Ultra Test strips) lidocaine HCl 4 % topical liquid See Rx Instructions topical 03/21/22 02/28/23 Unknown Rx roll-on (Aspercreme (lidocaine .COMPLEX #73 mL HCl)) carvedilol 12.5 mg tablet 12.5 mg PO BID #180 tabs 04/04/22 02/28/23 02/23/23 Rx clopidogrel 75 mg tablet 75 mg PO DAILY #90 tabs 04/25/22 02/28/23 02/23/23 Rx multivitamin 1 tab PO DAILY 05/17/22 02/28/23 02/23/23 History insulin syringe-needle U-100 1 mL #100 ea 06/21/22 02/28/23 Unknown Rx 31 gauge x 5/16 (BD Insulin Syringe Ultra-Fine) amlodipine 10 mg tablet 10 mg PO DAILY #90 tabs 07/10/22 02/28/23 02/23/23 Rx metformin 1,000 mg tablet 1,000 mg PO BID #180 tabs 07/10/22 02/28/23 02/23/23 Rx polyethylene glycol 3350 17 gram 17 g PO DAILY PRN constipation #14 10/17/22 02/28/23 02/22/23 Rx oral powder packet (Miralax) ea liraglutide 0.6 mg/0.1 mL (18 mg/3 1.2 mg (0.2 mL) SUBCUT DAILY 30 12/01/22 02/28/23 02/23/23 Rx mL) subcutaneous pen injector days #9 mL (Victoza 3-Krishna) tiotropium bromide 18 mcg capsule 1 cap inhalation DAILY #60 12/20/22 02/28/23 02/22/23 Rx with inhalation device (Spiriva inhalations with HandiHaler) umeclidinium 62.5 mcg-vilanterol 1 inh inhalation DAILY #60 ea 12/20/22 02/28/23 02/22/23 Rx 25 mcg/actuation powdr for inhalation (Anoro Ellipta) acetaminophen 500 mg capsule 1,000 mg PO Q6H PRN Pain 02/01/23 02/28/23 Unknown History albuterol sulfate 90 mcg/actuation 2 inh inhalation Q4H PRN shortness 02/23/23 02/28/23 Unknown Rx aerosol inhaler of breath or wheezing #18 grams sitagliptin phosphate 100 mg 100 mg PO DAILY #30 tabs 02/23/23 02/28/23 Unknown Rx tablet (Januvia) furosemide 40 mg tablet 40 mg PO DAILY 30 days #30 tabs 02/25/23 02/28/23 02/23/23 Rx insulin aspart U-100 100 unit/mL See Rx Instructions .Route 02/25/23 02/28/23 Unknown Rx (3 mL) subcutaneous pen (Novolog .COMPLEX #15 mL FlexPen U-100 Insulin aspart) insulin glargine 100 unit/mL 35 unit (0.35 mL) SUBCUT BEDTIME 03/05/23 Unknown Rx subcutaneous solution #3 mL insulin glargine 100 unit/mL 50 unit (0.5 mL) SUBCUT QAM #3 mL 03/05/23 Unknown Rx subcutaneous solution isosorbide mononitrate 30 mg See Rx Instructions .Route 03/14/23 Unknown Rx tablet,extended release 24 hr .COMPLEX #90 tabs apixaban 5 mg tablet (Eliquis) 5 mg PO BID #90 tabs 03/15/23 Unknown Rx atorvastatin 80 mg tablet 80 mg PO BEDTIME #90 tabs 03/15/23 Unknown Rx fenofibrate nanocrystallized 145 145 mg PO DAILY #90 tabs 03/15/23 Unknown Rx mg tablet losartan 100 mg tablet 100 mg PO QAM #90 tabs 03/15/23 Unknown Rx metoclopramide HCl 10 mg tablet 10 mg PO QID PRN nausea and 03/15/23 Unknown Rx vomiting #120 tabs pantoprazole 40 mg tablet,delayed 40 mg PO DAILY for stomach #90 tabs 03/15/23 Unknown Rx release potassium chloride 10 mEq 10 meq PO DAILY #90 tabs 03/15/23 Unknown Rx tablet,extended release ropinirole 2 mg tablet 2 mg PO DAILY #30 tabs 03/15/23 Unknown Rx Allergies Allergy/AdvReac Type Severity Reaction Status Date / Time codeine Allergy Unknown ADR-Diarrhe Verified 03/21/23 19:43 a tetanus and diphtheria Allergy Unknown Unknown Verified 03/21/23 19:43 toxoids atorvastatin Allergy ADR-Faintin Verified 03/21/23 19:43 g PFSH Acute 2 PFSH: Medical History Failure to thrive in adult Hyperglycemia Anemia Hyponatremia Nausea & vomiting Dilation of pulmonary artery GERD (gastroesophageal reflux disease) Restless leg syndrome Presence of stent in coronary artery in patient with coronary artery disease Heart failure with preserved ejection fraction Altered mental status Diabetes CHF (congestive heart failure) Atherosclerosis of coronary artery Hyperlipidemia Pulmonary embolism DKA (diabetic ketoacidosis) Hypertensive urgency DM type 2 (diabetes mellitus, type 2) Arthritis Asthma HTN (hypertension) Small bowel mass Surgical History Hx of cholecystectomy Family History Other Cancer Stroke Social History Smoking and tobacco/nicotine status: never used tobacco/nicotine Alcohol intake: never Substance/Drug Use: never Lives independently: Yes Household members: none Marital status: / Vitals/I&O/Wt Last Vital Signs Temp 98.0 F 03/21/23 19:34 Pulse 76 03/21/23 21:12 Resp 18 03/21/23 21:12 BP 150/83 03/21/23 21:12 Pulse Ox 95 03/21/23 21:12 O2 Del Method Room Air 03/21/23 21:12 Weight last 48 hrs Weight 96.615 kg Physical Exam 2 Narrative: Patient is confused Not able to answer any questions Able to protect airway Makes eye contact Has a Mathew catheter Left wrist in a splint Left leg rotated and shortened Abdomen soft Currently on room air saturating well Hemodynamic stable Looks dehydrated S1, S2 Urinary Catheter Management: Mathew: Cath Placed During This Visit: yes Urinary Catheter Date of Insertion: 03/21/23 Urinary Catheter Time of Insertion: 20:30 Data 03/21/23 19:05 03/21/23 21:09 A&P Assessment and plan (1) Orthostasis: (2) Atherosclerosis of coronary artery: (3) Presence of stent in coronary artery in patient with coronary artery disease: (4) Hearing loss: (5) Gastroparesis: (6) Fracture, intertrochanteric, left femur: (7) Left radial head fracture: (8) Open fracture of distal ends of both radius and ulna: (9) Arthritis: (10) Supplemental oxygen dependent: Plan As per the ER physician patient came from assisted living after sustaining a fall, I do not have any records to verify that she is from assisted living and her family is not picking up my phone call I have left a voicemail Patient is very confused at this time She has metabolic encephalopathy related to UTI, respiratory panel positive for adenovirus CT head unremarkable She has left hip fracture, left wrist fracture Dr. Blue consulted He has done close reduction in the ER of the left wrist Plan for ORIF for left hip in the morning Will keep her on antibiotics It is unknown when was her last dose of Eliquis Chronically she is requiring 3 L Previous records revealed that she was discharged home Full code N.p.o. Mathew catheter placed Patient is diabetic, had hypoglycemic event in the past currently blood sugar is 247 Chronic kidney disease creatinine seems around baseline Attestations 2 Medical Necessity Statement*: More than 2 midnights anticipated Diagnoses Orthostasis I95.1 Atherosclerosis of coronary artery I25.10 Presence of stent in coronary artery in patient with coronary artery disease I25.10; Z95.5 Hearing loss H91.90 Gastroparesis K31.84 Fracture, intertrochanteric, left femur S72.142A Left radial head fracture S52.122A Open fracture of distal ends of both radius and ulna S52.509B; S52.609B Arthritis M19.90 Supplemental oxygen dependent Z99.81
[2023-03-21] MEDS: lidocaine 1% INJ 10 mL (per mL) 20 ML INJECTION (21:55)
[2023-03-21 22:04] LABS: Adenovirus Detected (NOT DETECT); Chlamydia Pneumoniae Not Detected (NOT DETECT); Coronavirus 229E,HKU1,NL63,OC4 Not Detected (NOT DETECT); Human Metapneumovirus Not Detected (NOT DETECT); Human Rhinovirus/Enterovirus Not Detected (NOT DETECT); Influenza A Not Detected (NOT DETECT); Influenza A H1 Not Detected (NOT DETECT); Influenza A H1-2009 Not Detected (NOT DETECT); Influenza A H3 Not Detected (NOT DETECT); Influenza B Not Detected (NOT DETECT); Mycoplasma Pneumoniae Not Detected (NOT DETECT); Parainfluenza Virus Type 1 Not Detected (NOT DETECT); Parainfluenza Virus Type 2 Not Detected (NOT DETECT); Parainfluenza Virus Type 3 Not Detected (NOT DETECT); Parainfluenza Virus Type 4 Not Detected (NOT DETECT); Respiratory Syncytial Virus A Not Detected (NOT DETECT); Respiratory Syncytial Virus B Not Detected (NOT DETECT); SARS-COV-2 Not Detected (NOT DETECT)
[2023-03-21 22:06] LABS: Adenovirus Detected (NOT DETECT); Results from Genmark
--- NOTE | 2023-03-21 22:20 | PM.CONSULT ---
Providers/Reason For Consult Consulting Physician/Specialty*: Vic Blue DO/orthopedic surgery Reason for Consult*: Left wrist grade 1 open distal radius and distal ulna fracture Left intertrochanteric femur fracture Left nondisplaced radial head fracture Requesting Physician: Dr. Crook Attending Physician: Dr. Alcazar Primary Care Provider: Avtar Bruce MD History of Present Illness History of Present Illness Patient is a 72-year-old female some slight dementia and confusion but is able to follow commands. Difficult to obtain full history secondary to patient's confusion and mental status but she is able to answer simple yes or no questions and follow some commands rest of HPI taken from emergency department physician patient arrives from assisted living by ambulance. Currently she had a fall. She has Eliquis listed in her medication list. She had an unwitnessed fall. She has obvious deformities to her wrist and has shortening and rotation of her left leg. She received 100 mics of fentanyl and route. EMS reports she was fairly confused when they arrived and she will not give any history at this time. Patient's left wrist has a deformity and grade 1 open distal radius and distal ulna fracture as well as nondisplaced left radial head fracture as well as left intertrochanteric femur fracture, orthopedics was consulted. Hospitalist will admit as primary Review of Systems General: Reports: ROS unobtainable due to mental status (And confusion) Medications/Allergies Home Medications Medication Instructions Recorded Confirmed Last Taken Type blood sugar diagnostic (ReliOn #300 ea 10/05/21 02/28/23 Unknown Rx Prime Test Strips) bismuth subsalicylate 262 mg/15 mL 524 mg PO Q1H PRN Gastrointestinal 10/12/21 02/28/23 Unknown History oral suspension (Pepto-Bismol) Spasms Or Cramping cholecalciferol (vitamin D3) 25 25 mcg PO DAILY 10/12/21 02/28/23 02/23/23 History mcg (1,000 unit) tablet (Vitamin D3) methyl salicylate-menthol 10 %-3 % 1 spray topical Q4H PRN Pain 10/12/21 02/28/23 Unknown History topical spray (Salonpas Pain Relieving Jet) blood sugar diagnostic (OneTouch #100 strips 02/20/22 02/28/23 Unknown Rx Ultra Test strips) lidocaine HCl 4 % topical liquid See Rx Instructions topical 03/21/22 02/28/23 Unknown Rx roll-on (Aspercreme (lidocaine .COMPLEX #73 mL HCl)) carvedilol 12.5 mg tablet 12.5 mg PO BID #180 tabs 04/04/22 02/28/23 02/23/23 Rx clopidogrel 75 mg tablet 75 mg PO DAILY #90 tabs 04/25/22 02/28/23 02/23/23 Rx multivitamin 1 tab PO DAILY 05/17/22 02/28/23 02/23/23 History insulin syringe-needle U-100 1 mL #100 ea 06/21/22 02/28/23 Unknown Rx 31 gauge x 5/16 (BD Insulin Syringe Ultra-Fine) amlodipine 10 mg tablet 10 mg PO DAILY #90 tabs 07/10/22 02/28/23 02/23/23 Rx metformin 1,000 mg tablet 1,000 mg PO BID #180 tabs 07/10/22 02/28/23 02/23/23 Rx polyethylene glycol 3350 17 gram 17 g PO DAILY PRN constipation #14 10/17/22 02/28/23 02/22/23 Rx oral powder packet (Miralax) ea liraglutide 0.6 mg/0.1 mL (18 mg/3 1.2 mg (0.2 mL) SUBCUT DAILY 30 12/01/22 02/28/23 02/23/23 Rx mL) subcutaneous pen injector days #9 mL (Victoza 3-Krishna) tiotropium bromide 18 mcg capsule 1 cap inhalation DAILY #60 12/20/22 02/28/23 02/22/23 Rx with inhalation device (Spiriva inhalations with HandiHaler) umeclidinium 62.5 mcg-vilanterol 1 inh inhalation DAILY #60 ea 12/20/22 02/28/23 02/22/23 Rx 25 mcg/actuation powdr for inhalation (Anoro Ellipta) acetaminophen 500 mg capsule 1,000 mg PO Q6H PRN Pain 02/01/23 02/28/23 Unknown History albuterol sulfate 90 mcg/actuation 2 inh inhalation Q4H PRN shortness 02/23/23 02/28/23 Unknown Rx aerosol inhaler of breath or wheezing #18 grams sitagliptin phosphate 100 mg 100 mg PO DAILY #30 tabs 02/23/23 02/28/23 Unknown Rx tablet (Januvia) furosemide 40 mg tablet 40 mg PO DAILY 30 days #30 tabs 02/25/23 02/28/23 02/23/23 Rx insulin aspart U-100 100 unit/mL See Rx Instructions .Route 02/25/23 02/28/23 Unknown Rx (3 mL) subcutaneous pen (Novolog .COMPLEX #15 mL FlexPen U-100 Insulin aspart) insulin glargine 100 unit/mL 35 unit (0.35 mL) SUBCUT BEDTIME 03/05/23 Unknown Rx subcutaneous solution #3 mL insulin glargine 100 unit/mL 50 unit (0.5 mL) SUBCUT QAM #3 mL 03/05/23 Unknown Rx subcutaneous solution isosorbide mononitrate 30 mg See Rx Instructions .Route 03/14/23 Unknown Rx tablet,extended release 24 hr .COMPLEX #90 tabs apixaban 5 mg tablet (Eliquis) 5 mg PO BID #90 tabs 03/15/23 Unknown Rx atorvastatin 80 mg tablet 80 mg PO BEDTIME #90 tabs 03/15/23 Unknown Rx fenofibrate nanocrystallized 145 145 mg PO DAILY #90 tabs 03/15/23 Unknown Rx mg tablet losartan 100 mg tablet 100 mg PO QAM #90 tabs 03/15/23 Unknown Rx metoclopramide HCl 10 mg tablet 10 mg PO QID PRN nausea and 03/15/23 Unknown Rx vomiting #120 tabs pantoprazole 40 mg tablet,delayed 40 mg PO DAILY for stomach #90 tabs 03/15/23 Unknown Rx release potassium chloride 10 mEq 10 meq PO DAILY #90 tabs 03/15/23 Unknown Rx tablet,extended release ropinirole 2 mg tablet 2 mg PO DAILY #30 tabs 03/15/23 Unknown Rx Allergies Allergy/AdvReac Type Severity Reaction Status Date / Time codeine Allergy Unknown ADR-Diarrhe Verified 03/21/23 19:43 a tetanus and diphtheria Allergy Unknown Unknown Verified 03/21/23 19:43 toxoids atorvastatin Allergy ADR-Faintin Verified 03/21/23 19:43 g PFSH Acute PFSH: Medical History Dilation of pulmonary artery GERD (gastroesophageal reflux disease) Restless leg syndrome Presence of stent in coronary artery in patient with coronary artery disease Heart failure with preserved ejection fraction Altered mental status Diabetes CHF (congestive heart failure) Atherosclerosis of coronary artery Hyperlipidemia Pulmonary embolism DKA (diabetic ketoacidosis) Hypertensive urgency DM type 2 (diabetes mellitus, type 2) Arthritis Asthma HTN (hypertension) Small bowel mass Surgical History Hx of cholecystectomy Family History Other Cancer Stroke Social History Smoking and tobacco/nicotine status: never used tobacco/nicotine Alcohol intake: never Substance/Drug Use: never Lives independently: Yes Household members: none Marital status: / Vitals/I&O/Wt Last Vital Signs Temp 98.0 F 03/21/23 19:34 Pulse 76 03/21/23 21:12 Resp 18 03/21/23 21:12 BP 150/83 03/21/23 21:12 Pulse Ox 95 03/21/23 21:12 O2 Del Method Room Air 03/21/23 21:12 03/21/23 03/21/23 03/21/23 06:59 14:59 22:59 Intake Total 50 / 50 Balance 50 / 50 Weight last 48 hrs Weight 213 lb Physical Exam Narrative: Examination is limited secondary to patient's current mental status and confusion. She is however able to follow some simple commands: Patient has significant deformity to the left distal radius with skin abrasions and skin tearing as well as a small appearing poke hole there is no active bleeding but dried blood noted around this region this is over the prominence of the ulna and suspect a grade 1 open injury no active bleeding at this time. Deformity noted. Significant tenderness palpation distal radius and distal ulna. Fingertips are warm well-perfused brisk capillary refill less than 2 seconds, distal pulses palpable. Compartment soft and compressible patient unable to wiggle fingers at this time but endorses sensations intact to light touch unable to wiggle fingers secondary to pain and discomfort. She does have tenderness over the left radial head but is able to tolerate some gentle elbow range of motion with minimal pain or discomfort does not appear to have any elbow instability on examination. No tenderness palpation of left shoulder. She does have on the left lower extremity a shortened and externally rotated lower extremity consistent with a left hip fracture she has pain at the left hip and positive logroll examination. She is able to wiggle her toes to her bilateral lower extremities distal pulses are palpable and endorses sensation intact light touch due to pain she is unable to dorsiflex and plantarflex the ankle at this time. Secondary survey examination appears to be unremarkable to the right upper extremity joints is no deformity and no tenderness to palpation as well as the right lower extremity joints with no deformity or tenderness to palpation. Bilateral lower extremities distal pulses are palpable Urinary Catheter Management: Mathew: Cath Placed During This Visit: yes Urinary Catheter Date of Insertion: 03/21/23 Urinary Catheter Time of Insertion: 20:30 Data 03/21/23 19:05 03/21/23 21:09 Xray Ortho: My impression: Multiple imaging reviewed of the left elbow left forearm left wrist as well as left hip femur and knee demonstrate patient has a comminuted displaced left distal radius and distal ulna fracture intra-articular nature. Patient does appear to have a left intertrochanteric femur fracture as well and nondisplaced left radial head fracture. A&P Assessment and plan (1) Open fracture of distal ends of both radius and ulna: (2) Left radial head fracture: (3) Fracture, intertrochanteric, left femur: Plan N.p.o. at midnight Hold a.m. anticoagulation Admit to hospitalist Orthopedic consulted Imaging reviewed Labs reviewed Start IV antibiotics which was already initiated by the emergency department upon arrival for grade 1 open injury of the left wrist fracture. Continue with IV antibiotics Patient underwent bedside I&D with a hematoma block as well as closed reduction of the left distal radius and distal ulna fracture Patient planned to undergo left wrist irrigation and debridement with left distal radius open reduction internal fixation and possible left distal ulna open reduction internal fixation with splint and sling application for the radial head fracture as well as plan to proceed with left hip trochanteric femur nail. Patient is confused but is able to verbalize and agree of proceeding with surgery at this point in time given this being an open injury would recommend surgical intervention. Plan to proceed with OR tomorrow in the morning. She has been on anticoagulants of Eliquis which sounds as though that was possibly her last dose possibly this morning from the assisted living facility. She states she did have a son to contact they did attempt both sons numbers that we have available given this is late they did not answer we will try again in the morning Procedure in detail: Patient seen evaluated bedside patient at bedside splint was subsequently taken down evaluated found to have a grade 1 open injury with a noticeable deformity. At this point in time I spoke with patient and she did verbalize agreements with a left wrist hematoma block to help with her pain as well as to help set the fracture once this was done I then subsequently sterilized the dorsal aspect of the left wrist at the fracture site and subsequently with an 18-gauge needle performed a hematoma block with 2% lidocaine 20 cc and performed hematoma block this was allowed to set I then subsequently performed an irrigation and debridement of the small poke hole and skin abrasions and tears on the dorsal aspect of the wrist with 2 L of normal saline. Once this was performed this patted dry wet-to-dry dressing was applied and I subsequently performed a closed reduction to improve clinical alignment of the left distal radius and distal ulna fracture and subsequently applied a sugar-tong splint to the left distal radius and ulna. She was then subsequently placed into a sling. She tolerated this without any issues or complications fingertips warm well-perfused brisk capillary refill less than 2 seconds she was able to have improvement in wiggling of her fingers once the splint and reduction was applied. Consult Attestations Medical Necessity Statement: Left wrist grade 1 open distal radius and distal ulna fracture, left nondisplaced radial head fracture, left intertrochanteric femur fracture Coding Level of Care Code Acute Code for [facility] Fwd Diagnoses Open fracture of distal ends of both radius and ulna S52.509B; S52.609B Left radial head fracture S52.122A Fracture, intertrochanteric, left femur S72.142A Time Spent (min) 45
[2023-03-21 22:30] VITALS: BP 147/69; PULSE 81; RESP 15; O2SAT 97
[2023-03-21 22:38] LABS: Lactic Acid level (Lactate) 2.9 mmol/L (0.5-2.2)
[2023-03-21] MEDS: sodium chloride 0.9% 1,000 ML 999 ML IV (22:39)
--- NOTE | 2023-03-21 22:53 | CTR_ITS ---
PROCEDURE INFORMATION: Exam: CT Left Upper Extremity Without Contrast, Wrist Exam date and time: 03/22/2023 12:04 AM Age: 72 years old Clinical indication: Injury or trauma; Fall; Blunt trauma (contusions or hematomas); Wrist; Left; Additional info: Surgical planning TECHNIQUE: Imaging protocol: Computed tomography of the left upper extremity without contrast. Exam focused on the wrist. Radiation optimization: All CT scans at this facility use at least one of these dose optimization techniques: automated exposure control; mA and/or kV adjustment per patient size (includes targeted exams where dose is matched to clinical indication); or iterative reconstruction. COMPARISON: CR (UP EXM, ) 03/21/2023 11:31 PM RADIATION DOSE METRICS: Total DLP (mGy-cm): 124.5 FINDINGS: Limitations: Beam hardening artifact Bones/joints: A comminuted fracture of the distal radial metaphysis with intra-articular extension is noted. The fracture fragments are impacted by approximately 6 mm with a gap between fracture fragments at the articular surface measuring up to 1.6 cm on series 13, image 44. Additional fracture fragments at the articular surface are impacted by up to 1.4 cm on the same image. An obliquely oriented fracture of the distal ulnar metadiaphysis is noted with anterior displacement of the distal fracture fragment by 7 mm and impaction of fracture fragments by up to 1.2 cm on series 13, image 35. The distal fracture fragment is also displaced laterally by 6 mm. A minimally displaced additional fracture of the distal ulna is noted involving the ulnar styloid process. The bones appear demineralized. There is moderate joint space narrowing and mild osteophyte formation at the 1st carpometacarpal joint. Soft tissues: [id number] diffuse subcutaneous edema in the mid to distal forearm, wrist and proximal hand region is noted. Small foci of gas dorsal to the wrist in the soft tissues on series 27, image 24 are noted. Other findings: Images of portions of the head were obtained during the exam demonstrating mild mucosal thickening of the bilateral maxillary sinuses and a small falx lipoma. CT/CT wrist LT wo con* [id number] IMPRESSION: 1. Acute appearing comminuted and impacted fracture of the distal radial metaphysis with intra-articular extension. 2. Obliquely oriented displaced acute fracture of the distal ulnar metadiaphysis with additional fracturing of the ulnar styloid process. 3. First carpometacarpal joint primary osteoarthritic changes. 4. Subcutaneous fat stranding is noted compatible with contusion without a well-defined hematoma. 5. Small foci of gas along the dorsum of the wrist are noted, possibly related to recent intravenous injection. No definite overlying laceration is identified. 6. Incidental note is made of mild chronic appearing bilateral maxillary sinus disease.
--- NOTE | 2023-03-21 22:54 | XRR_ITS ---
PROCEDURE INFORMATION: Exam: XR Left Wrist Exam date and time: 03/21/2023 11:31 PM Age: 72 years old Clinical indication: Screening exam; Post reduction and splint TECHNIQUE: Imaging protocol: Radiologic exam of the left wrist. Views: 1 or 2 views. COMPARISON: CR (UP EXM, ) 03/21/2023 7:49 PM FINDINGS: Bones/joints: Slightly improved alignment of the anteriorly displaced distal left radial and ulnar fractures status post reduction and splinting. Soft tissues: Soft tissue swelling about the wrist. XR/XR wrist LT 2V [id number] IMPRESSION: Slightly improved alignment of the anteriorly displaced distal left radial and ulnar fractures status post reduction and splinting.
[2023-03-22] VITALS (25 sets, daily range): BP systolic 117–157; BP diastolic 57–74; PULSE 69–98; RESP 14–22; TEMP 36.1–36.7; O2SAT 92–100; BMI 36.3
--- NOTE | 2023-03-22 | XR_ITS ---
WS: [id number] Left hip, C-arm fluoroscopy views, 03/22/2023 Clinical Data: ORIF left hip , or pic Comparison: Left hip, 03/21/2023 Findings: Dr. Blue repaired the intertrochanteric fracture of the left hip with an oblique screw and a proxima l intertrochanteric pat. Impression: Internal fixation of left hip intertrochanteric fracture.
[2023-03-22] MEDS: acetaminophen 1,000 MG/100 ML PIGGYBACK 400 MG IV (00:57)
[2023-03-22] MEDS: sodium chloride 0.9% 1,000 ML 75 ML IV ×2 (00:58→12:51)
[2023-03-22 01:16] LABS: Thyroid Stimulating Hormone 6.84 uIU/mL (0.27-4.20)
[2023-03-22] MEDS: vancomycin 1,500 MG/300 ML PIGGYBACK 150 MG IV (01:32)
[2023-03-22] MEDS: ketorolac 30 mg/mL INJ IVP (01:35)
[2023-03-22] MEDS: piperacillin-tazobactam 3.375 GM in sodium chloride 0.9% (plus) 50 ML IV ×3 (03:32→18:05)
[2023-03-22 05:10] LABS: Basophils % 0.3 %; Eosinophils % 0.3 %; Hematocrit 31.7 % (36-47); Lymphocytes # 1.1 10^3/uL (0.8-4.8); Lymphocytes % 9.4 %; Mean Corpuscular HGB Conc 31.9 g/dL (30-55); Mean Corpuscular Hemoglobin 28.6 pg (27-33); Mean Corpuscular Volume 89.8 fl (85-98); Mean Platelet Volume 9.9 fL (7.4-10.4); Monocytes # 0.7 10^3/uL (0.2-0.9); Monocytes % 5.7 %; Neutrophils # 9.61 10^3/uL (1.8-7.7); Neutrophils % 83.7 %; Nucleated Red Blood Cells % 0 %; Platelet Count 282 10^3/cmm (157-399); Red Blood Count 3.53 10^6/uL (3.85-5.65); Red Cell Distribution Width 13.2 % (12.1-15.1); White Blood Count 11.48 10^3/uL (3.29-11.43)
[2023-03-22] MEDS: HYDROmorphone 1 mg/mL INJ 1 mL 0.4 MG IVP ×2 (05:17→14:15)
[2023-03-22] MEDS: ondansetron 2 mg/ML SDV 2 mL 4 MG IVP ×2 (05:17→14:17)
[2023-03-22 05:35] LABS: Anion Gap 19.4 (5-19); Blood Urea Nitrogen 26 mg/dL (8-23); C Reactive Protein 10.1 mg/L (0.0-4.9); Calcium 8.9 mg/dL (8.5-10.5); Carbon Dioxide 21 mmol/L (22-29); Chloride 101 mmol/L (98-107); Glucose 240 mg/dL (65-115); Magnesium 1.4 mg/dL (1.7-2.3); Osmolality Calculated 297 mOsm/kg (285-295); Potassium 4.4 mmol/L (3.5-5.1); Sodium 137 mmol/L (136-145)
[2023-03-22 06:38] LABS: Glucose Point of Care 200 mg/dL (70-110)
--- NOTE | 2023-03-22 07:08 | W.PM.OPSUD ---
Surgery/Procedure H&P Update DATE OF PROCEDURE: March 22, 2023 DATE H&P PERFORMED: 03/21/23 H&P UPDATE INFORMATION: I have reviewed H&P completed within last 30 days, I have examined patient prior to procedure and No changes to prior documentation CHANGES TO PREVIOUS DOCUMENTATION: Patient is confused this morning we were able to reach out to the son he understands the ins and outs procedure risk benefits complication alternatives with surgery and elects proceed with surgical intervention for left wrist I&D, left distal radius ORIF, possible left ORIF distal ulna, left hip trochanteric femur nail. Understanding risk of surgery elects to proceed per his mother all questions been answered at this time. Will proceed with surgery today. Is been on empiric antibiotics due to grade 1 open injury. PREOP DIAGNOSIS: Open grade 1 left distal radius and distal ulna fracture, left intertrochan PRIMARY INDICATION FOR PROCEDURE: Open grade 1 left distal radius and distal ulna fracture, left intertrochanteric femur fracture PLANNED PROCEDURE: Operation Date: 03/22/23 07:00 Proposed Procedures p Left Wrist Incision and Drainage with ORIF Left Distal Radius with Possible ORIF Left Distal Ulna(Left) - DO maximiliano Maddox Trochanteric Femoral Nail(Left) - DO maximiliano Maddox Incision & Drainage Upper Extremity(Left) - Vic Blue DO
[2023-03-22] MEDS: sodium chloride 0.9% 1,000 ML 30 ML IV (07:13)
[2023-03-22] MEDS: ceFAZolin 2,000 MG in sodium chloride 0.9% (plus) 50 ML 100 MG IV ×2 (07:17→18:01)
[2023-03-22] MEDS: tranexamic acid 1,000 mg/10mL SDV 1000 MG IV (07:57)
--- NOTE | 2023-03-22 08:11 | PC.PHAR ---
WAITING ON MED LIST FROM [facility] TO COMPLETE MED REC
--- NOTE | 2023-03-22 08:13 | P.ANESASSM_ITS ---
Pre-Anesthetic Assessment Height/Weight: Height 1.65 m Weight 99.11 kg Temp Pulse Resp BP Pulse Ox O2 Del Method O2 Flow Rate 97.3 F L 82 18 157/68 98 Nasal Cannula 2.0 03/22/23 06:38 03/22/23 06:38 03/22/23 06:38 03/22/23 06:38 03/22/23 06:38 03/22/23 06:38 03/22/23 06:38 Preop Diagnosis: Open grade 1 left distal radius and distal ulna fracture, left intertrochan Operation Date: 03/22/23 07:00 Proposed Procedures p Left Wrist Incision and Drainage with ORIF Left Distal Radius with Possible ORIF Left Distal Ulna(Left) - Vic Broomfield, DO s Trochanteric Femoral Nail(Left) - Vic Broomfield, DO s Incision & Drainage Upper Extremity(Left) - Vic Broomfield, DO Familial anesthetic complications: none Was Beta Mariel taken within 24 hours: Yes Was Clonidine taken within 24 hours: N/A Last intake: Intake Last Liquid Date 03/21/23 Last Solid Date 03/21/23 Social No alcohol and No tobacco Exam clear to auscultation bilaterally and regular rate & rhythm Airway Submandibular: within normal limits Cervical ROM: within normal limits Mallampati: Class II Pulmonary Asthma Home O2 CV/HEM Coronary Artery Disease (stents) and Hypertension CONCLUSIONS The ventricle is poorly seen. The apical view is the only useful view. There is probably normal LV function and size. The ejection fraction is about 55 to 60%. Grade 1 diastolic dysfunction. Structurally normal mitral valve. Mild mitral valve regurgitation. The valve is not well-seen. It appears to be mildly calcified. There may be mild aortic stenosis. Mean gradient 10.7 mmHg, [place] 1.5 cm squared. No obvious aortic insufficiency. Previous study from 06/07/2021 is similar to today's study. Previously noted wall motion disturbances are not noted today, however this is a much poorer quality study. Dr. Bassem Beauchamp MD (Electronically Signed) Final Date: 25 February 2023 Chronic Renal Insufficiency GI Gastroesophageal Reflux Disease Metabolic Diabetes Mellitus, Hyperlipidemia and Morbid Obesity Neuropsych Dementia Anesthetic Plan ASA status: 3 Anesthesia: General Medications/Allergies Home Medications Medication Instructions Recorded Confirmed Last Taken Type blood sugar diagnostic (ReliOn #300 ea 10/05/21 03/22/23 Unknown Rx Prime Test Strips) bismuth subsalicylate 262 mg/15 mL 524 mg PO Q1H PRN Gastrointestinal 10/12/21 03/22/23 Unknown History oral suspension (Pepto-Bismol) Spasms Or Cramping cholecalciferol (vitamin D3) 25 25 mcg PO DAILY 10/12/21 03/22/23 02/23/23 History mcg (1,000 unit) tablet (Vitamin D3) blood sugar diagnostic (OneTouch #100 strips 02/20/22 03/22/23 Unknown Rx Ultra Test strips) carvedilol 12.5 mg tablet 12.5 mg PO BID #180 tabs 04/04/22 03/22/23 02/23/23 Rx clopidogrel 75 mg tablet 75 mg PO DAILY #90 tabs 04/25/22 03/22/23 02/23/23 Rx multivitamin 1 tab PO DAILY 05/17/22 03/22/23 02/23/23 History insulin syringe-needle U-100 1 mL #100 ea 06/21/22 03/22/23 Unknown Rx 31 gauge x 5/16 (BD Insulin Syringe Ultra-Fine) amlodipine 10 mg tablet 10 mg PO DAILY #90 tabs 07/10/22 03/22/23 02/23/23 Rx metformin 1,000 mg tablet 1,000 mg PO BID #180 tabs 07/10/22 03/22/23 02/23/23 Rx polyethylene glycol 3350 17 gram 17 g PO DAILY PRN constipation #14 10/17/22 03/22/23 02/22/23 Rx oral powder packet (Miralax) ea liraglutide 0.6 mg/0.1 mL (18 mg/3 1.2 mg (0.2 mL) SUBCUT DAILY 30 12/01/22 03/22/23 02/23/23 Rx mL) subcutaneous pen injector days #9 mL (Victoza 3-Krishna) tiotropium bromide 18 mcg capsule 1 cap inhalation DAILY #60 12/20/22 03/22/23 02/22/23 Rx with inhalation device (Spiriva inhalations with HandiHaler) umeclidinium 62.5 mcg-vilanterol 1 inh inhalation DAILY #60 ea 12/20/22 03/22/23 02/22/23 Rx 25 mcg/actuation powdr for inhalation (Anoro Ellipta) acetaminophen 500 mg capsule 1,000 mg PO Q6H PRN Pain 02/01/23 03/22/23 Unknown History apixaban 5 mg tablet (Eliquis) 5 mg PO BID #90 tabs 03/15/23 03/22/23 Unknown Rx atorvastatin 80 mg tablet 80 mg PO BEDTIME #90 tabs 03/15/23 03/22/23 Unknown Rx fenofibrate nanocrystallized 145 145 mg PO DAILY #90 tabs 03/15/23 03/22/23 Unknown Rx mg tablet losartan 100 mg tablet 100 mg PO QAM #90 tabs 03/15/23 03/22/23 Unknown Rx metoclopramide HCl 10 mg tablet 10 mg PO QID PRN nausea and 03/15/23 03/22/23 Unknown Rx vomiting #120 tabs pantoprazole 40 mg tablet,delayed 40 mg PO DAILY for stomach #90 tabs 03/15/23 03/22/23 Unknown Rx release ropinirole 2 mg tablet 2 mg PO DAILY #30 tabs 03/15/23 03/22/23 Unknown Rx bumetanide 2 mg tablet 2 mg PO BID 03/22/23 03/22/23 Unknown History insulin glargine 100 unit/mL 30 unit SUBCUT DAILY 03/22/23 03/22/23 Unknown History subcutaneous solution (Lantus U-100 Insulin) isosorbide mononitrate 30 mg 30 mg PO DAILY 03/22/23 03/22/23 Unknown History tablet,extended release 24 hr potassium chloride 20 mEq 60 meq PO DAILY 03/22/23 03/22/23 Unknown History tablet,extended release Allergies Allergy/AdvReac Type Severity Reaction Status Date / Time codeine Allergy Unknown ADR-Diarrhe Verified 03/21/23 19:43 a tetanus and diphtheria Allergy Unknown Unknown Verified 03/21/23 19:43 toxoids atorvastatin Allergy ADR-Faintin Verified 03/21/23 19:43 g Current Medications Generic Name Dose Route Start Last Admin Trade Name Freq PRN Reason Stop Dose Admin Hydromorphone HCl 0.4 mg 03/22/23 05:04 03/22/23 05:17 Hydromorphone 1 Mg/Ml Inj 1 Ml IVP 0.4 mg Q4H PRN Administration moderate to severe pain Sodium Chloride 1,000 mls @ 75 mls/hr 03/22/23 00:24 03/22/23 00:58 Sodium Chloride 0.9% IV 75 mls/hr .[id number] NAHUM Administration Piperacillin Sod/Tazobactam 50 mls @ 12.5 mls/hr 03/22/23 03:00 03/22/23 03:32 Sod 3.375 gm/ Sodium Chloride IV 12.5 mls/hr Q8H NAHUM Administration Protocol Vancomycin/PEG/NADA/Lysine/Water 1,500 mg in 300 mls @ 150 mls/hr 03/22/23 01:00 03/22/23 03:37 Vancocin IV Infused Q24H NAHUM Infusion Sodium Chloride 1,000 mls @ 30 mls/hr 03/22/23 07:00 03/22/23 07:13 Sodium Chloride 0.9% IV 03/23/23 06:59 30 mls/hr .Q24H NAHUM Administration Ondansetron HCl 4 mg 03/22/23 00:24 03/22/23 05:17 Ondansetron 2 Mg/Ml Sdv 2 Ml IVP 4 mg Q6H PRN Administration NAUSEA AND VOMITING PFSH Anesthesia Medical History Failure to thrive in adult Hyperglycemia Anemia Hyponatremia Nausea & vomiting Dilation of pulmonary artery GERD (gastroesophageal reflux disease) Restless leg syndrome Presence of stent in coronary artery in patient with coronary artery disease Heart failure with preserved ejection fraction Altered mental status Diabetes CHF (congestive heart failure) Atherosclerosis of coronary artery Hyperlipidemia Pulmonary embolism DKA (diabetic ketoacidosis) Hypertensive urgency DM type 2 (diabetes mellitus, type 2) Arthritis Asthma HTN (hypertension) Small bowel mass Surgical History Hx of cholecystectomy Family History Other Cancer Stroke Social History Smoking and tobacco/nicotine status: never used tobacco/nicotine Alcohol intake: never Substance/Drug Use: never Lives independently: Yes Household members: none Marital status: / Data Anesthesia 03/22/23 04:38 03/22/23 04:38 Short CBC 03/21/23 03/22/23 Range/Units 19:05 04:38 WBC 8.34 11.48 H (3.29-11.43) 10^3/uL Hgb 11.50 10.10 L (11.27-16.99) g/dL Hct 34.6 L 31.7 L (36-47) % MCV 87.2 89.8 (85-98) fl Plt Count 350 282 (157-399) 10^3/cmm Neut % (Auto) 68.5 83.7 % Neut # (Auto) 5.72 9.61 H (1.8-7.7) 10^3/uL BMP 03/21/23 03/21/23 03/22/23 19:05 21:09 04:38 Sodium Cancelled 136 137 Potassium Cancelled 4.5 4.4 Chloride Cancelled 101 101 Carbon Dioxide Cancelled 23 21 L BUN Cancelled 30 H 26 H Creatinine Cancelled 1.3 H 1.2 H Glucose Cancelled 263 H 240 H Calcium Cancelled 9.5 8.9 Liver Function 03/21/23 03/21/23 Range/Units 19:05 21:09 Total Bilirubin Cancelled 0.3 AST Cancelled 12 ALT Cancelled 7 Alkaline Phosphatase Cancelled 53 Albumin Cancelled 4.0 Urine 03/21/23 Range/Units 20:40 Urine Color Yellow (Yellow) Urine Appearance Clear (CLEAR) Urine pH 5 (5-7) Ur Specific [place] 1.005 (1.005-1.030) Urine Protein Neg (Negative) Urine Glucose (UA) Norm (Normal) Urine Ketones Negative (Negative) Urine Nitrate Positive H (Negative) Urine Bilirubin Neg (Negative) Ur Leukocyte Esterase Trace H (Negative) Urine RBC None (0-2) /hpf Urine WBC 10-15 H (0-5) /hpf Blood Bank 03/22/23 01:00 Blood Type A Positive Rho(D) Type Rh positive Antibody Screen Negative COVID Results 03/21/23 19:51 Coronavirus 229E (PCR) Not detected SARS-CoV-2 (PCR) Not detected Coags 03/21/23 03/22/23 19:05 04:38 PT 15.00 H INR 1.14 APTT 27.8 C-Reactive Protein 10.1 H ABG 03/21/23 21:30 Specimen Type Arterial Sample Site Radial, right ABG pH 7.36 ABG pCO2 38.5 ABG pO2 91.3 ABG HCO3 21.5 L ABG O2 Saturation 96.8 ABG Base Excess -3.7 L A-a O2 Gradient 1.4 L O2 Delivery Device Room air Cardiac Studies: 2 Echocardiogram 02/25/23
--- NOTE | 2023-03-22 10:42 | P.BOP_ITS ---
Date of Procedure: [03/22/2023] Surgeon: Vic Blue DO Human Resources Records Clerk(s): None Procedure(s) performed: Left hip trochanteric femur nail Left wrist irrigation and debridement (7 cm x 2 cm x 1 cm ) Left distal radius open reduction internal fixation greater than 4 part intra- articular Left distal ulna open reduction internal fixation Closed treatment left radial head fracture with splint and sling Findings of the procedure(s): Patient found to have small grade 1 open injury of the left wrist fracture the subsequently underwent I&D as well as fixation of the distal radius and distal ulna procedure went without complication she was then prepped for the left hip and underwent left hip trochanteric femur nail without complications. Estimated blood loss: 150 mL Specimen(s) removed: None Post-operative diagnosis: Open grade 1 left wrist fracture (distal radius and distal ulna fracture), left intertrochanteric femur fracture
--- NOTE | 2023-03-22 10:47 | P.OP_ITS ---
Operative Report Date of procedure: March 22, 2023 Surgeon: Vic Blue DO Procedure: Preoperative diagnosis: Left hip intertrochanteric femur fracture Grade 1 open left distal radius and distal ulna fracture Left radial head fracture Post-op diagnosis: Same Procedure done: Left hip trochanteric femur nail Left wrist irrigation and debridement (7 cm x 2 cm x 1 cm ) Left distal radius open reduction internal fixation (greater than 4 part intra- articular ) Left distal ulna open reduction internal fixation Closed treatment left radial head fracture with splint and sling Implants: [place] gamma nail short 11 mm x 180 mm x 125 degree Lag screw 10.5 mm x [ 105]?mm Distal?locking screw 5 mm x?[ 35]?mm [place] mini/hand fragment plate?2.4 mm T plate with combination of locking and nonlocking screws 2.4 mm Arthrex left 5-hole standard volar locking plate Combination of locking and nonlocking screws 2.4 mm?distal Combination of locking and nonlocking screws 3.5 mm proximal Surgeon: Vic Blue DO Estimated blood?loss: [ 150]mm Tourniquet time: 76mins IV Fluids: See anesthesia record Urine output: See anesthesia record Complications: See operative report Findings: See operative report narrative Condition: stable Disposition: Floor Brief History: Patient sustained a fall and was found to have a?Leftintertrochanteric hip fx, left nondisplaced radial head fracture, grade 1 open left distal radius and distal ulna fracture.?Pt has?been unable to bear weight,?Left?hip/lower extremity shortened and externally rotated.? At this point time Pt?was admitted by the hospitalist team and orthopedics was consulted.??Refer to consult note for detailed HPI.??We talked about treatment options as far as nonoperative and operative intervention. Recommend?left wrist I&D with ORIF left distal radius and possible ORIF distal ulna, left hip trochanteric femur nail. ?At this point time patient/family would?like to pursue surgical intervention for benefits of pain control and earlier mobilization.?? Patient/family understands the ins and outs of procedure, the risk benefits complication alternatives of surgical nonsurgical treatment options.? Understanding risk of surgery?patient/family?agrees to proceed with surgical intervention all questions answered.? Consent obtained via over the phone with patient's son as she was confused day of surgery. Procedure: Patient seen evaluated in the preoperative holding area.? Consent was obtained.? Correct extremity was then marked.? Once cleared by anesthesia and the hospitalist team patient was taken back to the operative suite.? Patient underw ent anesthesia per the anesthesia department.? Once appropriately anesthetized patient was placed on a fracture [place] table.? Patient was appropriately secured to the bed.? All bony prominences were well-padded.? Patient had armboard applied to the left upper extremity and plan was to start with the left wrist first. At this point time patient received appropriate preoperative antibiotics.? Final timeout was performed.? Esmarch was used exsanguinate the left upper extremity and tourniquet was insufflated to 250 mmHg. Started with I&D of the wrist patient's small appearing dimple/punctate hole on the dorsal ulnar aspect near the distal ulna fracture was identified. This was in line with the distal radius fracture for further ORIF in order for appropriate I&D prior to surgical intervention I&D was performed first extended this incision proximally as well as distally. It was noted that this is dimpled all the way up into the skin consistent with a grade 1 open injury there is no significant periosteal stripping. At this point in time I performed full- thickness skin flaps protected neurovascular structures and then identified the fracture site. This is clear to fracture hematoma there is no gross contamination noted. At this point in time performed I&D with 3 L of normal saline. Utilized curettage with curette as well as rongeur and sharp scalpel excision of devitalized tissue of skin subcutaneous tissue fascia tendon and bone. At this point the entire wound bed was 7 cm x 2 cm x 1 cm that the I&D was performed and. Once this was complete I&D I then subsequently placed a wet Ray-Seth in the fracture site and subsequently all instruments were put aside new gloves and set up was then subsequently made and proceeded with fixation of distal radius. A standard modified FCR volar approach was performed to the left?distal?radius.? Sharp scalpel incision through skin and subcutaneous tissue.? I then switched to Littler dissection scissors identify the FCR tendon releases out of the sheath both proximally and?distally mobilized the tendon ulnarly and then subsequently incised the floor of the FCR tendon sheath with care to just incise the floor.? I then bluntly sweep the FPL tendon muscle belly ulnarly and placed blunt self- retaining retractor.? At this point time I direct visualization of the pronator quadratus which was incised in standard L fashion off the?radial and?distal?border in the?distal?radius and fracture site was scraped clean of interposed muscle belly.? I then identified the reater than 4 part intra- articular?distal?radius fracture.? This was subsequently opened above and freed of interposing muscle belly as well as periosteum and fracture hematoma.? I did have to utilize my Medon which was placed through the fracture pattern and disengage the fracture and performed manual manipulation and anatomic reduction of the?distal?radius fracture.? Patient was found to have a large radial fragment that was was able to be lag. I utilized a [id number] and then subsequently placed a K wire to hold the reduction of the radial column fracture fragment. I then subsequently drilled measured and placed in appropriate lag screw the radial column large fracture fragment to help morales for cortical read of the rest of the volar fracture fragments. ?Once satisfied with reduction and had appropriate near anatomic reduction of the volar cortex.? This was confirmed with mini C arm in multiple orthogonal imaging.? At this point time? I selected a Arthrex anatomic?distal?radius plate utilizing a standard 5-hole plate which would have appropriate spread?distally.? This was then placed up to the?distal?radius while maintaining my reduction, pins were placed?distally and proximally to confirm appropriate placement of the plate along the?distal?radius.? Minor adjustments were made and once I was satisfied I then subsequently drilled a bicortical 3.5 screw proximally in the oblong hole to allow for appropriate sliding of the?distal?radius plate appropriately to perfect position on the?distal?radius.? This had excellent fixation and purchase and brought the plate to bone.? While maintaining my reduction I then confirmed in multiple orthogonal imaging that my plate was in appropriate position.? Once satisfied with my position I then subsequently placed the peek targeting guide on the?distal?locking screws with Arthrex.? The locking guide was then subsequently loaded and I subsequently drilled and placed a fully threaded cortical screw to compress the plate to bone for the?distal?fracture fragment.? This was performed with plan to then remove this and placed a shorter locking screw had bicortical fixation with excellent purchase and appropriate reduction of my volar tilt and bringing plate to bone of the?distal?fragment and plate.? Once I was satisfied with my plate position as well as reduction of the?distal?radius which was confirmed on AP oblique and lateral imaging I then subsequently drilled measured and placed locking screws around this cortical screw.? Then I subsequently removed the cortical screw and placed a shorter locking screw that did not penetrate the dorsal cortex.?? This completed my?distal?fixation.? I did utilize mini C arm to confirm appropriate placement of the screws these were all within the?distal?radius and no joint involvement within the?radiocarpal joint or the DRUJ.? These had appropriate subchondral support and maintenance of reduction and fixation of the?distal?radius fracture.? ?I then turned my attention proximally and then I screwed in the locking guides for my final to screws proximally these were then subsequently drilled measured and appropriate length locking screws were then placed proximally with excellent fixation and locking technology into the plate.? This completed my construct.? The peek guide was subsequently removed and final imaging of the left?distal?radius open reduction internal fixation was taken of AP lateral as well and is orthogonal imaging.? I then took a inclination view which showed my?radial styloid screw was out of the penetration of the joint.? All my?distal?screws were appropriate length did not penetrate dorsal cortex and did not penetrate the joint.? This completed my fixation.? Smooth wrist range of motion was then noted with no evidence of clicking. Wrist was then taken through pronation supination and stressed the DRUJ which was found to be unstable given the distal ulna fx.? I then subsequently proceeded with distal ulna fixation. Utilizing my previous distal ulna I&D incision I then subsequently identified the fracture fragment and obtain anatomic reduction manually and well with a [id number] reduction clamp. At this point in time I elected to utilize a Lyn small frag 2.4 mm T plate this was appropriately bent and contoured for the distal ulna and utilized an olive wire to pin this into place to make sure appropriate of the plate on the distal ulna. While maintaining reduction and was satisfied my position I drilled a cortical screw both proximally and distally to secure the plate to bone interface once satisfied with this I then switched to locking screw fixation around the cortical screws to increase my construct rigidity. Next a switch one of the distal cortical screws for locking screw to add to increased construct fixation and then completed my proximal locking screws. This completed my construct. I took the DRUJ through range of motion pronation supination which was found to be stable this point in time I was satisfied with fixation. The wound was then thoroughly irrigated.? Tourniquet was then subsequently deflated.? Hemostasis satisfactory with bipolar electrocautery.? I then subsequently placed interrupted 3-0 Vicryl sutures for subcutaneous tissue and then subsequently placed a nylon the skin for closure.? Incision was then dressed with Xeroform 4 x 4's Kerlix cast padding and a volar Ortho-Glass splint was then applied with Ole wrap and placed in a sling for nonoperative treatment of left radial head fracture. Next proceeded with left intertrochanteric femur fracture fixation. Prior to beginning surgery a standard closed reduction maneuver was placed on the [place] table and?large C-arm was brought in.? After performing a closed reduction maneuver there was able to achieve satisfactory reduction of?Left?intertrochanteric femur fracture.? Fracture site did not extend into the subtrochanteric region as result plan was for a short nail.?? This point time the left?lower extremity was then prepped and draped in standard orthopedic fashion. A standard?longitudinal incision was made just proximal to the greater?trochanter roughly 4 cm in?length sharp scalpel vision was made through skin and subcutaneous tissue.? I then utilized a blunt Kiran to split? fascia and mobilized directly down to the greater?trochanter.? I then inserted my starting guidewire which was placed appropriate starting position the tip of the greater?trochanter.? This was advanced in AP and?lateral films to be in center center position and advanced to the?level?lesser?trochanter.? This was confirmed to be in center center position on AP and?lateral imaging.? Once this was done I then introduced my opening reamer which was then subsequently guide pin removed.? I selected a 11 mm x 180 mm x 125 degree. At this point time the nail was then?loaded onto the [place] gamma?trochanteric nail guide.? This was placed within the canal and confirmed with XR and the setscrew was then gently placed not?locked.? The nail was then impacted to appropriate depth .? At this point time I then inserted my?lag screw guide and subsequently made a small incision through skin and subcutaneous tissue splitting the IT band?longitudinally and the guide was placed directly onto bone.? Next I then subsequently placed the guidewire in center center position in the head with an appropriate tip to apex distance this was confirmed with multiple orthogonal images.? Once I was satisfied with my planned?lag screw placement I then measured which was? [105 ]?mm.? I then set my cannulated drill and subsequently reamed this into the head at appropriate depth.? I then had my rep open the 10.5 mm x?[105 ]?mm?lag screw which was then opened on the back table and subsequently screwed into place over my cannulated drill guide.? This was placed with excellent tip to apex distance.? Next I then utilized the compressing device and subsequently compressed my fracture after I?let off traction.? This had excellent fracture compression and opposition and closing down to my fracture?line.? Next I then?locked the nail by?locking my setscrew.? This point time the guidewire as well as the sleeve was then removed.? Next I plan for statically?locking the nail distally.? This triple sleeve was then placed a small stab incision was made blunt dissection directly down to bone and the guide sleeve was placed and?locked directly onto the bone.? I then inserted the drill bit and subsequently drilled bicortically measured appropriate?length screw and then placed a [35 ]?mm distal interlocking screw and had excellent fixation was appropriate?length.? This point time is completed my construct I remove the out er jig and took final images of AP and?lateral of the?Left?intertrochanteric femur fracture which showed stable reduction and stable fixation.? Incision was then thoroughly irrigated.? Hemostasis was maintained with electrocautery.? I then once again thoroughly irrigated the incisions and then subsequently closed in?layered fashion of 0 Vicryl 2-0 Vicryl and marcelino.? Silverlon dressings applied.? Patient was then awakened from anesthesia transported onto the hospital bed and taken to PACU in stable condition.? Patient tolerated procedure without complications. Disposition: Patient taken to PACU in stable condition.? Postoperatively,? Patient to receive appropriate discharge instructions as well as pain medication DVT prophylaxis postoperatively.? She will be allowed weightbearing as tole rated?Left?lower extremity. Nonweightbearing to left upper extremity maintain splint and sling to left upper extremity. Will receive appropriate postoperative antibiotics, PT/OT.? Patient to follow-up in the orthopedic office in 2 weeks.? Patients family understands and agrees with current plan.? All questions answered.
--- NOTE | 2023-03-22 12:07 | P.PN_ITS ---
Subjective 2 Subjective: Reviewed chart. Try to do some investigation. Apparently patient lives alone at home. She was in the hospital 2 weeks ago. Unable to locate any family at this time. No one has called so far for her. She has been in surgery all morning. Unable to visit with patient yet. Vitals/I&O/Wt Last Vital Signs Temp 97.2 F L 03/22/23 11:32 Pulse 86 03/22/23 11:35 Resp 18 03/22/23 11:35 BP 142/60 03/22/23 11:32 Pulse Ox 93 03/22/23 11:35 O2 Del Method Room Air 03/22/23 11:35 O2 Flow Rate 6 03/22/23 11:07 03/21/23 03/22/23 03/22/23 22:59 06:59 14:59 Intake Total 50 / 50 1400 / 1450 650 / 650 Output Total 2600 / 2600 1350 / 1350 Balance 50 / 50 -1200 / -1150 -700 / -700 Weight last 48 hrs Weight 99.11 kg Weight 99.11 kg Weight 96.615 kg Physical Exam 2 Narrative: Unable to be seen since she is in surgery. Urinary Catheter Management: Mathew: Cath Placed During This Visit: yes Urinary Catheter Date of Insertion: 03/21/23 Urinary Catheter Time of Insertion: 20:30 Data 03/22/23 04:38 03/22/23 04:38 A&P Assessment and plan (1) Orthostasis: (2) Atherosclerosis of coronary artery: (3) Presence of stent in coronary artery in patient with coronary artery disease: (4) Hearing loss: (5) Gastroparesis: (6) Fracture, intertrochanteric, left femur: (7) Left radial head fracture: (8) Open fracture of distal ends of both radius and ulna: (9) Arthritis: (10) Supplemental oxygen dependent: Plan As per the ER physician patient came from assisted living after sustaining a fall, I do not have any records to verify that she is from assisted living and her family is not picking up my phone call I have left a voicemail Patient is very confused at this time She has metabolic encephalopathy related to UTI, respiratory panel positive for adenovirus CT head unremarkable She has left hip fracture, left wrist fracture Dr. Blue consulted He has done close reduction in the ER of the left wrist Plan for ORIF for left hip in the morning Will keep her on antibiotics It is unknown when was her last dose of Eliquis Chronically she is requiring 3 L Previous records revealed that she was discharged home Full code N.p.o. Mathew catheter placed Patient is diabetic, had hypoglycemic event in the past currently blood sugar is 247 Chronic kidney disease creatinine seems around baseline Continue management as per above. Unable to see patient today. She is has been in surgery all morning. Attestations 2 Medical Necessity Statement*: More than 2 midnights anticipated Diagnoses Orthostasis I95.1 Atherosclerosis of coronary artery I25.10 Presence of stent in coronary artery in patient with coronary artery disease I25.10; Z95.5 Hearing loss H91.90 Gastroparesis K31.84 Fracture, intertrochanteric, left femur S72.142A Left radial head fracture S52.122A Open fracture of distal ends of both radius and ulna S52.509B; S52.609B Arthritis M19.90 Supplemental oxygen dependent Z99.81
--- NOTE | 2023-03-22 13:17 | ANE.PACU2 ---
Inpatient post-anesthesia follow up: Airway intact: Yes Vital signs: Temperature 97.2 F Pulse Rate 86 Respiratory Rate 18 Blood Pressure 142/60 Pulse Oximetry 93 Oxygen Delivery Me thod Room Air Oxygen Flow Rate 6 Fraction of Inspir ed Oxygen Hydration adequate: Yes Nausea and vomiting: No Pain level: 2 Mental status: Baseline
--- NOTE | 2023-03-22 16:00 | XRR_ITS ---
PROCEDURE INFORMATION: Exam: XR Left Hip Exam date and time: 03/22/2023 4:35 PM Age: 72 years old Clinical indication: Device placement; Other: Nail in left hip; Additional info: Postop orif hip TECHNIQUE: Imaging protocol: Radiologic exam of the left hip. Views: 2 or 3 views hip with pelvis when performed. COMPARISON: OT XR hip LT 2-3V wo/w pel* [id number] 03/22/2023 9:57 AM FINDINGS: Bones/joints: Status post ORIF proximal left femur stabilizing acute intertrochanteric fractures. There is minimal valgus angulation across the fracture site. There is an 18 mm cortical fragment which extends laterally at the site of fracture otherwise grossly satisfactory alignment. Hardware appears intact without obvious complication. There are small marginal osteophytes across the left hip joint. Soft tissues: There is hematoma and emphysema in the soft tissues surrounding the proximal left femur. Vasculature: There are peripheral vascular calcifications. XR/XR hip LT 2-3V wo/w pel* [id number] IMPRESSION: Status post ORIF as described above.
--- NOTE | 2023-03-22 16:00 | XRR_ITS ---
PROCEDURE INFORMATION: Exam: XR Left Wrist Exam date and time: 03/22/2023 4:35 PM Age: 72 years old Clinical indication: Device placement; Other: Plate for left wrist; Additional info: Postop orif TECHNIQUE: Imaging protocol: Radiologic exam of the left wrist. Views: 1 or 2 views. COMPARISON: CT wrist LT wo con* [id number] 03/22/2023 12:04 AM FINDINGS: Bones/joints: Status post ORIF stabilizing acute fractures of the distal radius and ulna with improved alignment. Hardware appears intact without obvious complication. Soft tissues: Casting obscures underlying soft tissues. XR/XR wrist LT 2V [id number] IMPRESSION: Status post ORIF stabilizing acute fractures of the distal radius and ulna with improved alignment. Hardware appears intact without obvious complication.
[2023-03-22] MEDS: pantoprazole 40 mg SDV IVP (16:53)
[2023-03-22] MEDS: ketorolac 30 mg/mL INJ 15 MG IVP (16:54)
[2023-03-22] MEDS: chlorhexidine gluconate 0.12% Btl 473 mL 30 ML MUCOUS MEM (16:54)
[2023-03-22] MEDS: tranexamic acid 1,000 MG/100 ML PREMIX 600 MG IV (16:57)
[2023-03-22] MEDS: metoclopramide 5 mg/mL SDV 2 mL 10 MG IVP (18:00)
[2023-03-22] MEDS: scopolamine 1.5 Patch 1 PATCH TRANSDERMA (18:01)
--- NOTE | 2023-03-22 18:17 | PC.NURSE ---
Pulled 1800 medication to give to patient. Scanned and popped out meds into administration cup at bedside. Patient became very nauseous and started vomiting bile into a kidney basin. Wasted medications in pyxis with Shilpi RN as witness due to one of the medications being a narcotic. Physician notified and IV reglan order Read back and verbalized with and administered. Will continue to monitor patient.
[2023-03-22] MEDS: oxyCODONE 5 mg IR Tab/Cap PO (19:30)
[2023-03-22] MEDS: HYDROmorphone 1 mg/mL INJ 1 mL 0.5 MG IVP (20:39)
[2023-03-23] VITALS (22 sets, daily range): BP systolic 108–142; BP diastolic 55–75; PULSE 76–94; RESP 15–20; TEMP 36.4–36.9; O2SAT 91–100
[2023-03-23] MEDS: acetaminophen 500 mg Tablet 1000 MG PO ×4 (00:43→23:12)
[2023-03-23] MEDS: ceFAZolin 2,000 MG in sodium chloride 0.9% (plus) 50 ML 100 MG IV ×2 (00:43→08:48)
[2023-03-23] MEDS: TRAMadol 50 mg Tablet PO ×2 (00:43→08:46)
[2023-03-23] MEDS: vancomycin 1,500 MG/300 ML PIGGYBACK 150 MG IV (01:15)
[2023-03-23] MEDS: sodium chloride 0.9% 1,000 ML 75 ML IV ×2 (01:16→23:06)
[2023-03-23] MEDS: metoclopramide 5 mg/mL SDV 2 mL 10 MG IVP ×3 (01:20→17:07)
[2023-03-23] MEDS: ketorolac 30 mg/mL INJ 15 MG IVP ×3 (01:58→17:06)
[2023-03-23] MEDS: piperacillin-tazobactam 3.375 GM in sodium chloride 0.9% (plus) 50 ML IV ×3 (03:01→19:04)
[2023-03-23] MEDS: oxyCODONE 5 mg IR Tab/Cap PO ×3 (03:31→21:17)
[2023-03-23] MEDS: ondansetron 2 mg/ML SDV 2 mL 4 MG IVP ×3 (03:34→19:12)
[2023-03-23 05:29] LABS: Basophils % 0.1 %; Eosinophils % 0.1 %; Lymphocytes # 1.3 10^3/uL (0.8-4.8); Lymphocytes % 11.7 %; Mean Corpuscular HGB Conc 32.7 g/dL (30-55); Mean Corpuscular Hemoglobin 29.4 pg (27-33); Mean Platelet Volume 10.4 fL (7.4-10.4); Monocytes # 0.9 10^3/uL (0.2-0.9); Neutrophils % 79.6 %; Nucleated Red Blood Cells % 0 %; Platelet Count 255 10^3/cmm (157-399); Red Blood Count 2.21 10^6/uL (3.85-5.65); Red Cell Distribution Width 13.8 % (12.1-15.1); White Blood Count 11.06 10^3/uL (3.29-11.43)
[2023-03-23 05:44] LABS: Hematocrit 19.9 % (36-47)
[2023-03-23 05:51] LABS: Anion Gap 18.7 (5-19); Blood Urea Nitrogen 35 mg/dL (8-23); Calcium 7.7 mg/dL (8.5-10.5); Carbon Dioxide 20 mmol/L (22-29); Chloride 106 mmol/L (98-107); Glucose 233 mg/dL (65-115); Osmolality Calculated 305 mOsm/kg (285-295); Potassium 4.7 mmol/L (3.5-5.1); Sodium 140 mmol/L (136-145)
[2023-03-23 06:03] LABS: Magnesium 1.4 mg/dL (1.7-2.3)
[2023-03-23] MEDS: calcium carb-vit d 600mg/400unit 1 Tablet 1 EACH PO ×2 (08:46→17:06)
[2023-03-23] MEDS: multivitamin therapeutic Tablet 1 TAB PO (08:46)
[2023-03-23] MEDS: pantoprazole 40 mg SDV IVP (08:46)
[2023-03-23] MEDS: docusate sodium 100 mg Capsule PO ×2 (08:46→17:06)
[2023-03-23] MEDS: iron polysaccharide complex 150 mg Capsule PO ×2 (08:46→17:06)
[2023-03-23] MEDS: carvedilol 12.5 mg Tablet PO ×2 (08:47→17:06)
[2023-03-23] MEDS: mupirocin oint 22 gm 1 APPLIC NASAL (08:48)
[2023-03-23] MEDS: chlorhexidine gluconate 0.12% Btl 473 mL 30 ML MUCOUS MEM ×2 (08:49→21:18)
--- NOTE | 2023-03-23 08:50 | PC.CHAP ---
Pastoral Care Encounter/Spiritual Assessment Type of Contact [] Declined cloth presser visit [] Patient/Family/Request visit [] Outpatient visit [] Follow-up visit [] Physician referral [] Code/Alert [] Routine visit [] Staff referral [] Actively dying [] Patient sleeping [] Family support [] [] Out of room [] Palliative care [] [] Receiving care in room [] Pre-surgical visit [] Trauma [] Long length of stay [] ICU visit [x] Other:Covid. No visit. Relational/Emotional Strength [] Patient feels connected with others/family/visitors/staff [] Distress [] Loneliness/isolation [] Abandonment Spirituality of Patient [] Person of Tanja [] Attends Faith of their Tanja [] Believes in Prayer [] Reads Bible or Sabianism materials [] There are Spiritual issues to be addressed Transmitter Engineer In Charge Interventions [] Prayer [] Active listening [] Non-anxious presence [] Spiritual/emotional support [] Crisis/trauma care [] Spiritual counseling [] Bereavement support [] Provided bereavement packet [] Provided Bible/devotional materials [] Provided toy/stuffed animal, coloring book to patient or family member [] Provided Communion [] Anointing/[place] [] Salvation [] Completed spiritual assessment [] Other: Impact on Illness or Injury [] Angry [] Fearful [] Anxious [] Often cries [] Exhaustion [] Unable to work [] Unable to attend quaker [] Unable to walk/stand [] Unable to read [] Unable to drive [] Unable to eat/drink [] Unable to sleep [] Unable to be with family [] Patient intubated [] Other: Summary Time spent with patient
[2023-03-23 11:17] LABS: Glucose Point of Care 307 mg/dL (70-110)
[2023-03-23] MEDS: insulin lispro 100 unit/1 mL SUBCUT ×3 (12:22→21:18)
[2023-03-23] MEDS: morphine 4 mg/mL SDV 1 mL IVP ×2 (12:24→17:07)
--- NOTE | 2023-03-23 12:28 | P.PN_ITS ---
Subjective 2 Subjective: Blood order this morning. However unable to transfuse so far since patient has poor IV access. Charge nurse has called for ultrasound-guided IV at this point. Patient does not feel very well and feels nauseous after getting Dilaudid. We have switched her pain medicine. Son present at bedside. He states that patient was walking up to change her DVD and tripped and fell. She normally uses a walker to get around however this time did not use her walker. Otherwise she lives alone at home cooks her own meals but has someone who helps her with cleaning and shopping. Patient and patient's son are okay with going to inpatient rehab at discharge. I have talked with charge nurse to try to expedite blood transfusion. We will give her 2 units today. Check a CBC 2 hours posttransfusion. Vitals/I&O/Wt Last Vital Signs Temp 97.7 F 03/23/23 07:40 Pulse 88 03/23/23 08:26 Resp 16 03/23/23 12:24 BP 108/63 03/23/23 07:40 Pulse Ox 98 03/23/23 08:26 O2 Del Method Room Air 03/23/23 08:26 O2 Flow Rate 6 03/22/23 11:07 03/22/23 03/23/23 03/23/23 22:59 06:59 14:59 Intake Total 490 / 2248.25 1521.25 / 3769.50 100 / 100 Output Total 400 / 1750 Balance 490 / 898.25 1121.25 / 2019.50 100 / 100 Weight last 48 hrs Weight 99.11 kg Weight 99.11 kg Weight 99.11 kg Weight 96.615 kg Physical Exam 2 Narrative: Patient alert oriented and able to answer questions. Clear to auscultation bilaterally. Limited exam due to patient's positioning. Left arm in a sling. Normal S1-S2, Abdomen soft nontender Left arm in sling and cast. Urinary Catheter Management: Mathew: Cath Placed During This Visit: yes Reason for Continuing Indwelling Catheter: Other Urinary Catheter Date of Insertion: 03/21/23 Urinary Catheter Time of Insertion: 20:30 Data 03/23/23 04:27 03/23/23 04:27 Micro: Microbiology 03/21/23 20:40 Urine Culture - Preliminary Urine,Clean Catch Gram Negative Rods A&P Assessment and plan (1) Orthostasis: (2) Atherosclerosis of coronary artery: (3) Presence of stent in coronary artery in patient with coronary artery disease: (4) Hearing loss: (5) Gastroparesis: (6) Fracture, intertrochanteric, left femur: (7) Left radial head fracture: (8) Open fracture of distal ends of both radius and ulna: (9) Arthritis: (10) Supplemental oxygen dependent: Plan #Mechanical fall #Left hip fracture status post surgery postop day 1 #Left wrist fracture status post surgery postop day 1 #Distal radius, distal ulna fracture status post surgery postop day 1 #Adenovirus positive #Metabolic encephalopathy #UTI #Acute blood loss anemia #GERD #History of nausea vomiting #History of CHF, preserved EF #Diabetes mellitus #History of arthritis #History of asthma #CAD status post stent #Chronic kidney disease, creatinine at baseline. ? Came in after mechanical fall. Underwent left hip trochanteric femur nail, left wrist irrigation and debridement, left distal radius open reduction internal fixation, left distal ulna open reduction internal fixation, closed treatment left radial head fracture with splint and sling. Operative day 03/22/2023. ? Urinalysis abnormal. 3+ bacteria, 10-15 WBC, positive nitrates. Continue Zosyn at this time. Urine culture pending. ? CT head unremarkable ? Orthopedic surgery consulted. Recommendations appreciated. They are following the case. Patient is status post surgery ? Last known dose of Eliquis unknown. Currently being held. Will discuss with general surgery regarding when to resume it. ? Chronically on 3 L nasal cannula. Currently requiring the same. ? Continue Mathew catheter. Will plan to remove the next 24 hours. ? Continue on morphine 4 mg IV every 4 hours as needed ? Reglan 10 mg IV every 6 hours as needed ? Continue on oral iron 150 twice daily ? Colace 100 twice daily ? Coreg 12.5 twice daily ? Protonix 40 daily orally ? Sliding scale insulin moderate dose intensity ? She has an hypoglycemic event 4. We will avoid basal insulin at this time. ? Order 2 units packed RBC. Recheck CBC 2 hours posttransfusion. Hemoglobin goal greater than 8 secondary to CAD status. Full code Continue on full liquid diet Spoke to son in the room Hubert López. We may call him for updates. . Disposition. Planning for inpatient rehab after discharge. Attestations 2 Medical Necessity Statement*: Requires inpatient hospitalization for management of multiple fractures, metabolic encephalopathy, UTI, acute blood loss anemia Diagnoses Orthostasis I95.1 Atherosclerosis of coronary artery I25.10 Presence of stent in coronary artery in patient with coronary artery disease I25.10; Z95.5 Hearing loss H91.90 Gastroparesis K31.84 Fracture, intertrochanteric, left femur S72.142A Left radial head fracture S52.122A Open fracture of distal ends of both radius and ulna S52.509B; S52.609B Arthritis M19.90 Supplemental oxygen dependent Z99.81
--- NOTE | 2023-03-23 12:43 | XRR_ITS ---
PROCEDURE INFORMATION: Exam: XR Chest Exam date and time: 03/23/2023 1:07 PM Age: 72 years old Clinical indication: Shortness of breath; Additional info: Post op TECHNIQUE: Imaging protocol: Radiologic exam of the chest. Views: 1 view. COMPARISON: CR (CHEST, ) 03/21/2023 8:25 PM FINDINGS: Lungs: Unchanged scar left lower lung. Otherwise, unremarkable. Pleural spaces: Unremarkable. No pleural effusion. No pneumothorax. Heart/Mediastinum: Unremarkable. No cardiomegaly. Bones/joints: Unchanged mild multilevel spondylosis. XR/XR chest 1V portable [id number] IMPRESSION: No acute disease.
--- NOTE | 2023-03-23 13:57 | P.PN_ITS ---
Subjective 2 Subjective: Patient seen and examined today. Patient complaining of her splint feeling kind of tight, nurse will adjust this today. Just to loosen the Ole wrap. Hemoglobin dropped this morning receiving 2 units of PRBC today. Nausea having some improvement as well as her pain with medications Vitals/I&O/Wt Last Vital Signs Temp 97.6 F 03/23/23 13:24 Pulse 78 03/23/23 13:24 Resp 15 03/23/23 13:24 BP 113/68 03/23/23 13:24 Pulse Ox 92 03/23/23 13:07 O2 Del Method Room Air 03/23/23 12:25 O2 Flow Rate 6 03/22/23 11:07 03/22/23 03/23/23 03/23/23 22:59 06:59 14:59 Intake Total 490 / 2248.25 1521.25 / 3769.50 220 / 220 Output Total 400 / 1750 Balance 490 / 898.25 1121.25 / 2019.50 220 / 220 Weight last 48 hrs Weight 218 lb 8 oz Weight 218 lb 8 oz Weight 218 lb 8 oz Weight 213 lb Physical Exam 2 Narrative: Splint left upper extremity appears mildly tight she does have good capillary refill she is able to wiggle her fingers and sensations intact to light touch distally. No signs of drainage or saturation of the dressing. Left hip incision is clean dry and intact with minimal saturation dressing. Urinary Catheter Management: Mathew: Cath Placed During This Visit: yes Reason for Continuing Indwelling Catheter: Other Urinary Catheter Date of Insertion: 03/21/23 Urinary Catheter Time of Insertion: 20:30 Data 03/23/23 04:27 03/23/23 04:27 Micro: Microbiology 03/21/23 20:40 Urine Culture - Preliminary Urine,Clean Catch Gram Negative Rods Xray Ortho: My impression: X-rays of the left hip and left wrist reviewed personally interpreted by myself demonstrating stable ORIF left distal radius and distal ulna as well as stable ORIF left hip trochanteric femur nail no evidence of hardware failure or loosening stable position A&P Assessment and plan (1) Open fracture of distal ends of both radius and ulna: (2) Left radial head fracture: (3) Fracture, intertrochanteric, left femur: Plan Continue IV antibiotics for infection prophylaxis given grade 1 open injury X-rays reviewed Labs reviewed patient receiving 2 units PRBC Internal medicine on board as primary Encourage finger range of motion as tolerated, maintain splint, elevation and ice as needed Nonweightbearing left upper extremity. weightbearing as tolerated left lower extremity Change dressing as needed Orthopedics will continue to follow on the floor Postop day 1 Pain control DVT prophylaxis Attestations 2 Medical Necessity Statement*: Left wrist grade 1 open fracture requiring I&D and surgical fixation as well as ongoing care left hip fracture ORIF. Coding Level of Care Code Acute Code for [facility] Diagnoses Open fracture of distal ends of both radius and ulna S52.509B; S52.609B Left radial head fracture S52.122A Fracture, intertrochanteric, left femur S72.142A Time Spent (min) 20
[2023-03-23 16:58] LABS: Glucose Point of Care 345 mg/dL (70-110)
[2023-03-23 20:52] LABS: Hematocrit 24.9 % (36-47)
[2023-03-23 21:15] LABS: Glucose Point of Care 152 mg/dL (70-110)
[2023-03-24] VITALS (8 sets, daily range): BP systolic 125–147; BP diastolic 62–71; PULSE 80–87; RESP 16–18; TEMP 36.7–36.9; O2SAT 93–96; BMI 37.8
[2023-03-24] MEDS: vancomycin 1,500 MG/300 ML PIGGYBACK 150 MG IV (00:54)
[2023-03-24] MEDS: ondansetron 2 mg/ML SDV 2 mL 4 MG IVP (03:44)
[2023-03-24] MEDS: piperacillin-tazobactam 3.375 GM in sodium chloride 0.9% (plus) 50 ML IV ×3 (04:01→18:20)
[2023-03-24 05:42] LABS: Basophils # 0.1 10^3/uL (0.0-0.1); Basophils % 0.5 %; Eosinophils # 0.3 10^3/uL (0.0-0.8); Eosinophils % 2.7 %; Hematocrit 24.1 % (36-47); Lymphocytes # 1.7 10^3/uL (0.8-4.8); Lymphocytes % 17.2 %; Mean Corpuscular HGB Conc 33.6 g/dL (30-55); Mean Corpuscular Volume 86.4 fl (85-98); Mean Platelet Volume 10.1 fL (7.4-10.4); Monocytes # 0.8 10^3/uL (0.2-0.9); Monocytes % 8.2 %; Neutrophils # 6.95 10^3/uL (1.8-7.7); Neutrophils % 70.1 %; Nucleated Red Blood Cells % 0 %; Platelet Count 259 10^3/cmm (157-399); Red Blood Count 2.79 10^6/uL (3.85-5.65); Red Cell Distribution Width 14.8 % (12.1-15.1); White Blood Count 9.91 10^3/uL (3.29-11.43)
[2023-03-24] MEDS: oxyCODONE 5 mg IR Tab/Cap PO ×2 (05:54→14:44)
[2023-03-24 06:11] LABS: Anion Gap 18.2 (5-19); Blood Urea Nitrogen 32 mg/dL (8-23); Calcium 7.7 mg/dL (8.5-10.5); Carbon Dioxide 19 mmol/L (22-29); Chloride 107 mmol/L (98-107); Glucose 142 mg/dL (65-115); Osmolality Calculated 299 mOsm/kg (285-295); Potassium 4.2 mmol/L (3.5-5.1); Sodium 140 mmol/L (136-145)
[2023-03-24 06:12] LABS: Magnesium 1.6 mg/dL (1.7-2.3); Phosphorus 3.9 mg/dL (2.5-4.5)
[2023-03-24 06:51] LABS: Glucose Point of Care 172 mg/dL (70-110)
--- NOTE | 2023-03-24 08:16 | P.PN_ITS ---
Subjective 2 Subjective: Patient seen and examined today she received 2 units PRBC yesterday she is hemoglobin is up to 8.1 today. Adjustments on her splint is made her hand feel better she has increased movement in her fingers. She will continue to work with PT/OT. She stable from orthopedic standpoint. Vitals/I&O/Wt Last Vital Signs Temp 98.3 F 03/24/23 07:37 Pulse 84 03/24/23 07:45 Resp 16 03/24/23 07:45 BP 147/62 03/24/23 07:37 Pulse Ox 94 03/24/23 07:45 O2 Del Method Room Air 03/24/23 07:45 O2 Flow Rate 1 03/23/23 23:54 03/23/23 03/24/23 03/24/23 22:59 06:59 14:59 Intake Total 1750 / 1970 350 / 2320 Output Total 525 / 525 600 / 1125 Balance 1225 / 1445 -250 / 1195 Weight last 48 hrs Weight 227 lb 8 oz Weight 218 lb 8 oz Physical Exam 2 Narrative: Splint left upper extremity Clean dry and intact, has good capillary refill she is able to wiggle her fingers and sensations intact to light touch distally. No signs of drainage or saturation of the dressing. Left hip incision is clean dry and intact with mild saturation dressing. Patient's has normal postoperative swelling around the left thigh, compartments are soft compressible. Patient is able to wiggle toes plantarflex and dorsiflex ankle sensations intact light touch distally. Left lower extremity is warm well-perfused Urinary Catheter Management: Mathew: Cath Placed During This Visit: yes Reason for Continuing Indwelling Catheter: Acute Urinary Retention or Obstruction Urinary Catheter Date of Insertion: 03/21/23 Urinary Catheter Time of Insertion: 20:30 Data 03/24/23 04:33 03/24/23 04:33 Micro: Microbiology 03/21/23 20:40 Urine Culture - Preliminary Urine,Clean Catch Gram Negative Rods A&P Assessment and plan (1) Open fracture of distal ends of both radius and ulna: (2) Left radial head fracture: (3) Fracture, intertrochanteric, left femur: Plan Continue IV antibiotics for infection prophylaxis given grade 1 open injury X-rays reviewed A.m. labs reviewed patient did receive 2 units PRBC yesterday Internal medicine on board as primary Encourage finger range of motion as tolerated, maintain splint, elevation and ice as needed Nonweightbearing left upper extremity. weightbearing as tolerated left lower extremity Change dressing as needed Orthopedics will continue to follow on the floor Postop day 2 Pain control DVT prophylaxis Patient stable for discharge from orthopedic standpoint at this point in time orthopedic surgery team will sign off patient at this time follow peripherally if there is any questions pertaining to patient's care feel free to contact the orthopedic department. Patient has appropriate discharge instructions as well as pain medication and will resume her normal DVT prophylaxis anticoagulant with Eliquis postoperatively. I will give her a prescription for antibiotics at discharge just for infection prophylaxis given her grade 1 open injury. Patient follow-up in the orthopedic office in 2 weeks. Attestations 2 Medical Necessity Statement*: Ongoing care ORIF left wrist grade 1 fracture as well as left intertrochanteric femur fracture ORIF Coding Level of Care Code Acute Code for [facility] Diagnoses Open fracture of distal ends of both radius and ulna S52.509B; S52.609B Left radial head fracture S52.122A Fracture, intertrochanteric, left femur S72.142A Time Spent (min) 25
[2023-03-24] MEDS: enoxaparin 30 mg/0.3 mL Syringe SUBCUT (08:55)
[2023-03-24] MEDS: calcium carb-vit d 600mg/400unit 1 Tablet 1 EACH PO ×2 (08:56→17:32)
[2023-03-24] MEDS: docusate sodium 100 mg Capsule PO ×2 (08:56→17:32)
[2023-03-24] MEDS: carvedilol 12.5 mg Tablet PO ×2 (08:56→17:32)
[2023-03-24] MEDS: insulin lispro 100 unit/1 mL SUBCUT ×4 (08:56→21:39)
[2023-03-24] MEDS: acetaminophen 500 mg Tablet 1000 MG PO ×2 (08:56→17:31)
[2023-03-24] MEDS: multivitamin therapeutic Tablet 1 TAB PO (08:56)
[2023-03-24] MEDS: pantoprazole DR 40 mg Tablet PO (08:56)
[2023-03-24] MEDS: iron polysaccharide complex 150 mg Capsule PO ×2 (08:56→17:32)
[2023-03-24] MEDS: mupirocin oint 22 gm 1 APPLIC NASAL ×2 (09:00→17:35)
[2023-03-24] MEDS: chlorhexidine gluconate 0.12% Btl 473 mL 30 ML MUCOUS MEM ×4 (09:00→21:39)
--- NOTE | 2023-03-24 10:24 | PC.OT ---
Discussion with PT. PT recommends pt. be on hold secondary to pt's inability to follow directions. No OT treatment today.
[2023-03-24 11:46] LABS: Glucose Point of Care 245 mg/dL (70-110)
[2023-03-24] MEDS: sodium chloride 0.9% 1,000 ML 75 ML IV (12:03)
--- NOTE | 2023-03-24 13:37 | P.PN_ITS ---
Subjective 2 Subjective: Seen today. She is appears comfortable. Would like to be repositioned in bed. Mathew catheter drained 1100 cc of urine. Hemoglobin 8.10. She is status post 2 units of packed RBC. Creatinine 1.6. Magnesium 1.6 potassium 4.2 Urine culture growing gram-negative rods. Vitals/I&O/Wt Last Vital Signs Temp 98.0 F 03/24/23 11:21 Pulse 83 03/24/23 11:21 Resp 16 03/24/23 07:45 BP 129/70 03/24/23 11:21 Pulse Ox 96 03/24/23 11:21 O2 Del Method Room Air 03/24/23 11:21 O2 Flow Rate 1 03/23/23 23:54 03/23/23 03/24/23 03/24/23 22:59 06:59 14:59 Intake Total 1750 / 1970 350 / 2320 1141.25 / 1141.25 Output Total 525 / 525 600 / 1125 Balance 1225 / 1445 -250 / 1195 1141.25 / 1141.25 Weight last 48 hrs Weight 103.192 kg Weight 99.11 kg Physical Exam 2 Narrative: Patient awake alert oriented x 3. Clear to auscultation bilaterally. Limited exam due to patient's positioning. Left arm in a sling. Normal S1-S2, Abdomen soft nontender Left arm in sling and cast. Mathew catheter in place. Draining clear yellow urine. Urinary Catheter Management: Mathew: Cath Placed During This Visit: yes Reason for Continuing Indwelling Catheter: Acute Urinary Retention or Obstruction Urinary Catheter Date of Insertion: 03/21/23 Urinary Catheter Time of Insertion: 20:30 Data 03/24/23 04:33 03/24/23 04:33 Micro: Microbiology 03/21/23 20:40 Urine Culture - Preliminary Urine,Clean Catch Gram Negative Rods A&P Assessment and plan (1) Orthostasis: (2) Atherosclerosis of coronary artery: (3) Presence of stent in coronary artery in patient with coronary artery disease: (4) Hearing loss: (5) Gastroparesis: (6) Fracture, intertrochanteric, left femur: (7) Left radial head fracture: (8) Open fracture of distal ends of both radius and ulna: (9) Arthritis: (10) Supplemental oxygen dependent: Plan #Mechanical fall #Left hip fracture status post surgery postop day 2 #Left wrist fracture status post surgery postop day 2 #Distal radius, distal ulna fracture status post surgery postop day 2 #Adenovirus positive #Metabolic encephalopathy?resolved #UTI #Acute blood loss anemia?improving #GERD #History of nausea vomiting?resolved #History of CHF, preserved EF #Diabetes mellitus #History of arthritis #History of asthma #CAD status post stent #Chronic kidney disease, creatinine at baseline. ? Came in after mechanical fall. Underwent left hip trochanteric femur nail, left wrist irrigation and debridement, left distal radius open reduction internal fixation, left distal ulna open reduction internal fixation, closed treatment left radial head fracture with splint and sling. Operative day 03/22/2023. ? Urinalysis abnormal. 3+ bacteria, 10-15 WBC, positive nitrates. Continue Zosyn at this time. Urine culture pending. ? CT head unremarkable ? Orthopedic surgery consulted. Recommendations appreciated. They are following the case. Patient is status post surgery ? Last known dose of Eliquis unknown. Currently being held. Will discuss with general surgery regarding when to resume it. ? Chronically on 3 L nasal cannula. Currently requiring the same. ? Continue Mathew catheter. Will plan to remove the next 24 hours. ? Continue on morphine 4 mg IV every 4 hours as needed ? Reglan 10 mg IV every 6 hours as needed ? Continue on oral iron 150 twice daily ? Colace 100 twice daily ? Coreg 12.5 twice daily ? Protonix 40 daily orally ? Sliding scale insulin moderate dose intensity ? She has an hypoglycemic event 4. We will avoid basal insulin at this time. ? Order 2 units packed RBC. Recheck CBC 2 hours posttransfusion. Hemoglobin goal greater than 8 secondary to CAD status. Today's plan 03/24/2023 ?Urine culture growing gram-negative rods. Continue Zosyn. ? Continue to monitor hemoglobin. Today 8.10. Keep above 8 ? DC Mathew catheter ? Restart Eliquis ? Restart Bumex 2 Mg daily orally. May escalate to home dose by tomorrow. ? Chronic kidney disease. I would avoid ketorolac at this time. ? Continue on oxycodone IR 5 mg every 6 hours as needed. ? Switch diet to cardiac carbohydrate consistent ? Up with assistance Full code Spoke to son in the room Hubert López. We may call him for updates. . Disposition. Planning for inpatient rehab after discharge. Attestations 2 Medical Necessity Statement*: Requires inpatient hospitalization for management of multiple fractures, metabolic encephalopathy, UTI, acute blood loss anemia Diagnoses Orthostasis I95.1 Atherosclerosis of coronary artery I25.10 Presence of stent in coronary artery in patient with coronary artery disease I25.10; Z95.5 Hearing loss H91.90 Gastroparesis K31.84 Fracture, intertrochanteric, left femur S72.142A Left radial head fracture S52.122A Open fracture of distal ends of both radius and ulna S52.509B; S52.609B Arthritis M19.90 Supplemental oxygen dependent Z99.81
[2023-03-24] MEDS: magnesium sulfate premix 1 GM/100 ML PIGGYBACK IV (14:41)
[2023-03-24 17:16] LABS: Glucose Point of Care 159 mg/dL (70-110)
[2023-03-24] MEDS: apixaban 5 mg Tablet PO (17:32)
--- NOTE | 2023-03-24 21:29 | PC.NURSE ---
Blood glucose checked by [employer], blood glucose read 165, glucometer docked but not imputing into [employer].
[2023-03-24] MEDS: TRAMadol 50 mg Tablet PO (21:40)
[2023-03-24] MEDS: morphine 4 mg/mL SDV 1 mL IVP (22:54)
[2023-03-25] VITALS (15 sets, daily range): BP systolic 124–160; BP diastolic 62–75; PULSE 67–77; RESP 16–20; TEMP 36.4–36.8; O2SAT 92–97; BMI 38.2
[2023-03-25] MEDS: acetaminophen 500 mg Tablet 1000 MG PO ×3 (00:35→15:03)
--- NOTE | 2023-03-25 01:07 | PC.NURSE ---
Patient had not voided since hair baler began at 1900, bladder scan revealed 350 mls in bladder, Dr. Alcazar notified via [employer], new orders to straight cath one time.
[2023-03-25 01:32] LABS: Vancomycin Trough 19.5 ug/mL (10-15)
[2023-03-25] MEDS: vancomycin 1,500 MG/300 ML PIGGYBACK 150 MG IV (02:03)
[2023-03-25 03:27] LABS: Glucose Point of Care 157 mg/dL (70-110)
[2023-03-25] MEDS: piperacillin-tazobactam 3.375 GM in sodium chloride 0.9% (plus) 50 ML IV ×2 (04:32→11:44)
[2023-03-25 05:06] LABS: Basophils # 0.1 10^3/uL (0.0-0.1); Basophils % 0.5 %; Eosinophils # 0.3 10^3/uL (0.0-0.8); Eosinophils % 3.5 %; Hematocrit 21.2 % (36-47); Lymphocytes # 1.7 10^3/uL (0.8-4.8); Lymphocytes % 17.7 %; Mean Corpuscular Hemoglobin 28.8 pg (27-33); Mean Corpuscular Volume 87.2 fl (85-98); Mean Platelet Volume 9.8 fL (7.4-10.4); Monocytes # 0.6 10^3/uL (0.2-0.9); Monocytes % 6.7 %; Neutrophils # 6.66 10^3/uL (1.8-7.7); Neutrophils % 71.1 %; Nucleated Red Blood Cells % 0 %; Platelet Count 240 10^3/cmm (157-399); Red Blood Count 2.43 10^6/uL (3.85-5.65); Red Cell Distribution Width 14.2 % (12.1-15.1); White Blood Count 9.38 10^3/uL (3.29-11.43)
[2023-03-25 05:34] LABS: Anion Gap 15.3 (5-19); Blood Urea Nitrogen 22 mg/dL (8-23); Calcium 8.2 mg/dL (8.5-10.5); Carbon Dioxide 19 mmol/L (22-29); Chloride 106 mmol/L (98-107); Glucose 173 mg/dL (65-115); Osmolality Calculated 289 mOsm/kg (285-295); Potassium 4.3 mmol/L (3.5-5.1); Sodium 136 mmol/L (136-145)
[2023-03-25] MEDS: oxyCODONE 5 mg IR Tab/Cap PO ×2 (05:44→14:06)
[2023-03-25 06:49] LABS: Glucose Point of Care 184 mg/dL (70-110)
--- NOTE | 2023-03-25 08:45 | P.PN_ITS ---
Subjective 2 Subjective: Patient seen and examined today hemoglobin down to 7.0 splints down from the left arm she is edema in the dorsal hand normal ecchymosis and swelling of the left upper extremity as well as left lower extremity. Spoke with son over the phone today just to update him on patient. Vitals/I&O/Wt Last Vital Signs Temp 97.6 F 03/25/23 08:30 Pulse 75 03/25/23 08:30 Resp 20 H 03/25/23 08:30 BP 124/71 03/25/23 08:30 Pulse Ox 93 03/25/23 08:30 O2 Del Method Room Air 03/25/23 08:30 O2 Flow Rate 1 03/23/23 23:54 03/24/23 03/25/23 03/25/23 22:59 06:59 14:59 Intake Total 448 / 1589.25 300 / 1889.25 360 / 360 Output Total 750 / 750 Balance -302 / 839.25 300 / 1139.25 360 / 360 Weight last 48 hrs Weight 229 lb 14.4 oz Weight 227 lb 8 oz Physical Exam 2 Narrative: Splint left upper subsequently down and only soft dressings applied over the incision. Has good capillary refill she is able to wiggle her fingers and sensations intact to light touch distally. No signs of drainage or saturation of the dressing. Compartments soft and compressible left hip incision is clean dry and intact with no saturation today is new bandage was applied yesterday. Patient's has normal postoperative swelling around the left thigh, compartments are soft compressible. Patient is able to wiggle toes plantarflex and dorsiflex ankle sensations intact light touch distally. Left lower extremity is warm well-perfused Urinary Catheter Management: Mathew: Cath Placed During This Visit: yes, but has since been removed by the nurse Reason for Continuing Indwelling Catheter: Decision to DC Catheter Urinary Catheter Date of Insertion: 03/25/23 Urinary Catheter Time of Insertion: 07:33 Date Urinary Catheter Removed: 03/24/23 Time Urinary Catheter Discontinued: 17:30 Data 03/25/23 04:34 03/25/23 04:34 Micro: Microbiology 03/21/23 20:40 Urine Culture - Final Urine,Clean Catch Klebsiella pneumoniae A&P Assessment and plan (1) Open fracture of distal ends of both radius and ulna: (2) Left radial head fracture: (3) Fracture, intertrochanteric, left femur: Plan Continue IV antibiotics for infection prophylaxis given grade 1 open injury X-rays reviewed A.m. labs reviewed Internal medicine on board as primary Encourage finger range of motion as tolerated, maintain splint, elevation and ice as needed Nonweightbearing left upper extremity. weightbearing as tolerated left lower extremity Change dressing as needed Orthopedics will continue to follow on the floor Postop day 3 Pain control DVT prophylaxis Spoke with son over the phone just to update on patient. Orthopedic surgery team will sign off patient at this time follow peripherally if there is any questions pertaining to patient's care feel free to contact the orthopedic department. Patient has appropriate discharge instructions as well as pain medication and will resume her normal DVT prophylaxis anticoagulant with Eliquis postoperatively. I will give her a prescription for antibiotics at discharge just for infection prophylaxis given her grade 1 open injury. Patient follow-up in the orthopedic office in 2 weeks. Attestations 2 Medical Necessity Statement*: Requires inpatient hospitalization for management of multiple fractures, metabolic encephalopathy, UTI, acute blood loss anemia Coding Level of Care Code Acute Code for [facility] Diagnoses Open fracture of distal ends of both radius and ulna S52.509B; S52.609B Left radial head fracture S52.122A Fracture, intertrochanteric, left femur S72.142A Time Spent (min) 20
[2023-03-25] MEDS: carvedilol 12.5 mg Tablet PO ×2 (09:45→17:48)
[2023-03-25] MEDS: calcium carb-vit d 600mg/400unit 1 Tablet 1 EACH PO ×2 (09:45→17:48)
[2023-03-25] MEDS: multivitamin therapeutic Tablet 1 TAB PO (09:45)
[2023-03-25] MEDS: bumetanide 1 mg Tablet 2 MG PO ×2 (09:45→17:48)
[2023-03-25] MEDS: insulin lispro 100 unit/1 mL SUBCUT ×4 (09:46→21:31)
[2023-03-25] MEDS: docusate sodium 100 mg Capsule PO ×2 (09:46→17:48)
[2023-03-25] MEDS: TRAMadol 50 mg Tablet PO (09:46)
[2023-03-25] MEDS: iron polysaccharide complex 150 mg Capsule PO ×2 (09:46→17:47)
[2023-03-25] MEDS: pantoprazole DR 40 mg Tablet PO (09:46)
[2023-03-25] MEDS: apixaban 5 mg Tablet PO ×2 (09:46→17:48)
[2023-03-25] MEDS: chlorhexidine gluconate 0.12% Btl 473 mL 30 ML MUCOUS MEM ×3 (09:47→21:32)
[2023-03-25] MEDS: mupirocin oint 22 gm 1 APPLIC NASAL (09:47)
[2023-03-25 11:11] LABS: Glucose Point of Care 327 mg/dL (70-110)
[2023-03-25 11:23] LABS: Glucose Point of Care 165 mg/dL (70-110)
--- NOTE | 2023-03-25 11:23 | PC.OT ---
Pt. on hold from OT daily treatment secondary to low lab numbers (Hemoglobin 7.0g/dl; Hct 21.2%). Once hemoglobin is elevated above 8g/dl, OT will resume with daily tx.
[2023-03-25] MEDS: sodium chloride 0.9% 100 mL Bag 50 ML IV (13:43)
--- NOTE | 2023-03-25 14:21 | P.PN_ITS ---
Subjective 2 Subjective: Patient had urinary retention overnight. She was straight cathed and subsequently Mathew was placed. Retaining over 550 cc. She says she feels weak and tired. Hemoglobin 7.0 this morning. Eliquis was restarted. No report of hematuria or hematochezia at this time. Vitals/I&O/Wt Last Vital Signs Temp 97.9 F 03/25/23 13:57 Pulse 77 03/25/23 13:57 Resp 16 03/25/23 13:57 BP 141/63 03/25/23 13:57 Pulse Ox 97 03/25/23 13:57 O2 Del Method Room Air 03/25/23 12:17 O2 Flow Rate 1 03/23/23 23:54 03/24/23 03/25/23 03/25/23 22:59 06:59 14:59 Intake Total 448 / 1589.25 300 / 1889.25 650 / 650 Output Total 750 / 750 Balance -302 / 839.25 300 / 1139.25 650 / 650 Weight last 48 hrs Weight 104.281 kg Weight 103.192 kg Physical Exam 2 Narrative: Patient awake alert oriented x 3. Clear to auscultation bilaterally. Limited exam due to patient's positioning. Left arm in a sling. Normal S1-S2, Abdomen soft nontender Left arm in sling and cast. Mathew catheter in place. Draining clear yellow urine. Urinary Catheter Management: Mathew: Cath Placed During This Visit: yes, but has since been removed by the nurse Reason for Continuing Indwelling Catheter: Decision to DC Catheter Urinary Catheter Date of Insertion: 03/25/23 Urinary Catheter Time of Insertion: 07:33 Date Urinary Catheter Removed: 03/24/23 Time Urinary Catheter Discontinued: 17:30 Data 03/25/23 04:34 03/25/23 04:34 Micro: Microbiology 03/21/23 20:40 Urine Culture - Final Urine,Clean Catch Klebsiella pneumoniae A&P Assessment and plan (1) Orthostasis: (2) Atherosclerosis of coronary artery: (3) Presence of stent in coronary artery in patient with coronary artery disease: (4) Hearing loss: (5) Gastroparesis: (6) Fracture, intertrochanteric, left femur: (7) Left radial head fracture: (8) Open fracture of distal ends of both radius and ulna: (9) Arthritis: (10) Supplemental oxygen dependent: Plan #Mechanical fall #Left hip fracture status post surgery postop day 3 #Left wrist fracture status post surgery postop day3 #Distal radius, distal ulna fracture status post surgery postop day 3 #Adenovirus positive #Metabolic encephalopathy?resolved #UTI #Acute blood loss anemia?improving #GERD #History of nausea vomiting?resolved #History of CHF, preserved EF #Diabetes mellitus #History of arthritis #History of asthma #CAD status post stent #Chronic kidney disease, creatinine at baseline. ? Came in after mechanical fall. Underwent left hip trochanteric femur nail, left wrist irrigation and debridement, left distal radius open reduction internal fixation, left distal ulna open reduction internal fixation, closed treatment left radial head fracture with splint and sling. Operative day 03/22/2023. ? Urinalysis abnormal. 3+ bacteria, 10-15 WBC, positive nitrates. Urine culture finalized. Sensitive to ceftriaxone.. ? CT head unremarkable ? Orthopedic surgery consulted. Recommendations appreciated. They are following the case. Patient is status post surgery ? Last known dose of Eliquis unknown. Currently being held. Will discuss with general surgery regarding when to resume it. ? Chronically on 3 L nasal cannula. Currently requiring the same. ? Continue Mathew catheter. Will plan to remove the next 24 hours. ? Continue on morphine 4 mg IV every 4 hours as needed ? Reglan 10 mg IV every 6 hours as needed ? Continue on oral iron 150 twice daily ? Colace 100 twice daily ? Coreg 12.5 twice daily ? Protonix 40 daily orally ? Sliding scale insulin moderate dose intensity ? She has an hypoglycemic event 4. We will avoid basal insulin at this time. ? Order 2 units packed RBC. Recheck CBC 2 hours posttransfusion. Hemoglobin goal greater than 8 secondary to CAD status. Today's plan 03/25/2023 ?Urine culture growing gram-negative rods. Sensitive to ceftriaxone. Stop Zosyn and switch to ceftriaxone. ? Continue to monitor hemoglobin. Today 7.0 keep above 8. Order 1 more unit of packed RBC. ? Continue Mathew catheter ? Continue Eliquis ? Bumex 2 mg twice daily home dose to restart ? Chronic kidney disease. I would avoid ketorolac at this time. ? Continue on oxycodone IR 5 mg every 6 hours as needed. ? Switch diet to cardiac carbohydrate consistent ? Up with assistance ? Physical therapy Full code Spoke to son in the room Hubert López. We may call him for updates. . Disposition. Planning for inpatient rehab after discharge. Attestations 2 Medical Necessity Statement*: Requires inpatient hospitalization for management of multiple fractures, metabolic encephalopathy, UTI, acute blood loss anemia Diagnoses Orthostasis I95.1 Atherosclerosis of coronary artery I25.10 Presence of stent in coronary artery in patient with coronary artery disease I25.10; Z95.5 Hearing loss H91.90 Gastroparesis K31.84 Fracture, intertrochanteric, left femur S72.142A Left radial head fracture S52.122A Open fracture of distal ends of both radius and ulna S52.509B; S52.609B Arthritis M19.90 Supplemental oxygen dependent Z99.81
[2023-03-25] MEDS: cefTRIAXone 1,000 MG in sodium chloride 0.9% (plus) 50 ML 100 MG IV (14:58)
[2023-03-25 16:19] LABS: Glucose Point of Care 280 mg/dL (70-110)
[2023-03-25 21:28] LABS: Glucose Point of Care 152 mg/dL (70-110)
[2023-03-26] VITALS (11 sets, daily range): BP systolic 138–172; BP diastolic 64–72; PULSE 65–88; RESP 16–22; TEMP 36.6–36.7; O2SAT 91–98; BMI 36.9
[2023-03-26] MEDS: acetaminophen 500 mg Tablet 1000 MG PO ×3 (00:01→17:57)
[2023-03-26] MEDS: vancomycin 1,500 MG/300 ML PIGGYBACK 150 MG IV (00:49)
[2023-03-26] MEDS: oxyCODONE 5 mg IR Tab/Cap PO ×3 (01:53→19:53)
[2023-03-26 05:08] LABS: Basophils % 0.5 %; Eosinophils # 0.4 10^3/uL (0.0-0.8); Eosinophils % 4.6 %; Hematocrit 26.7 % (36-47); Lymphocytes # 1.7 10^3/uL (0.8-4.8); Mean Corpuscular HGB Conc 32.6 g/dL (30-55); Mean Corpuscular Hemoglobin 28.4 pg (27-33); Mean Corpuscular Volume 87.3 fl (85-98); Mean Platelet Volume 9.5 fL (7.4-10.4); Monocytes # 0.5 10^3/uL (0.2-0.9); Monocytes % 6.1 %; Neutrophils # 6.02 10^3/uL (1.8-7.7); Neutrophils % 68.8 %; Nucleated Red Blood Cells % 0 %; Platelet Count 284 10^3/cmm (157-399); Red Blood Count 3.06 10^6/uL (3.85-5.65); Red Cell Distribution Width 14.4 % (12.1-15.1); White Blood Count 8.74 10^3/uL (3.29-11.43)
[2023-03-26 05:26] LABS: Blood Urea Nitrogen 20 mg/dL (8-23); Calcium 8.6 mg/dL (8.5-10.5); Carbon Dioxide 23 mmol/L (22-29); Chloride 102 mmol/L (98-107); Glucose 202 mg/dL (65-115); Osmolality Calculated 296 mOsm/kg (285-295); Phosphorus 2.4 mg/dL (2.5-4.5); Sodium 139 mmol/L (136-145)
--- NOTE | 2023-03-26 05:32 | PC.NURSE ---
Patient has refused to wear a gown because they just wad up and hurt her arm and hip. She has stated she prefers to just cover with a sheet. Clean linen available at bedside.
[2023-03-26 08:26] LABS: Glucose Point of Care 246 mg/dL (70-110)
[2023-03-26] MEDS: insulin lispro 100 unit/1 mL SUBCUT ×4 (08:56→21:36)
[2023-03-26] MEDS: apixaban 5 mg Tablet PO ×2 (08:57→18:04)
[2023-03-26] MEDS: calcium carb-vit d 600mg/400unit 1 Tablet 1 EACH PO ×2 (08:57→18:04)
[2023-03-26] MEDS: pantoprazole DR 40 mg Tablet PO (08:57)
[2023-03-26] MEDS: docusate sodium 100 mg Capsule PO (08:57)
[2023-03-26] MEDS: iron polysaccharide complex 150 mg Capsule PO ×2 (08:57→18:04)
[2023-03-26] MEDS: bumetanide 1 mg Tablet 2 MG PO ×2 (08:57→18:04)
[2023-03-26] MEDS: carvedilol 12.5 mg Tablet PO ×2 (08:57→18:05)
[2023-03-26] MEDS: multivitamin therapeutic Tablet 1 TAB PO (08:57)
[2023-03-26] MEDS: chlorhexidine gluconate 0.12% Btl 473 mL 30 ML MUCOUS MEM ×2 (09:00→14:11)
[2023-03-26] MEDS: mupirocin oint 22 gm 1 APPLIC NASAL (09:00)
[2023-03-26 11:10] LABS: Glucose Point of Care 348 mg/dL (70-110)
--- NOTE | 2023-03-26 12:22 | PM.PN ---
Subjective Subjective: seen this am has been working with therapy s/p 3 units prbc total post op Hb 8.7 today she feels slightly better she is moderate assist from supine to sit maximum assist from sit to stand stand to sit minimum assist bed to chair: total dependent on 1 person assist she has decreased endurance, decreased strength Vitals/I&O/Wt Last Vital Signs Temp 98.0 F 03/26/23 11:12 Pulse 70 03/26/23 11:12 Resp 18 03/26/23 11:12 BP 138/64 03/26/23 11:12 Pulse Ox 96 03/26/23 11:12 O2 Del Method Room Air 03/26/23 11:12 O2 Flow Rate 1 03/23/23 23:54 03/25/23 03/26/23 03/26/23 22:59 06:59 14:59 Intake Total 640 / 1325 300 / 1625 240 / 240 Output Total 2400 / 2400 1450 / 3850 Balance -1760 / -1075 -1150 / -2225 240 / 240 Weight last 48 hrs Weight 100.698 kg Weight 104.281 kg Physical Exam Urinary Catheter Management: Mathew: Cath Placed During This Visit: yes, but has since been removed by the nurse Reason for Continuing Indwelling Catheter: Accurate Measurement of Urinary Output in Critically Ill Patients Urinary Catheter Date of Insertion: 03/25/23 Urinary Catheter Time of Insertion: 07:33 Date Urinary Catheter Removed: 03/24/23 Time Urinary Catheter Discontinued: 17:30 Data 03/26/23 04:34 03/26/23 04:34 A&P Assessment and plan (1) Orthostasis: (2) Atherosclerosis of coronary artery: (3) Presence of stent in coronary artery in patient with coronary artery disease: (4) Hearing loss: (5) Gastroparesis: (6) Fracture, intertrochanteric, left femur: (7) Left radial head fracture: (8) Open fracture of distal ends of both radius and ulna: (9) Arthritis: (10) Supplemental oxygen dependent: Plan #Mechanical fall #Left hip fracture status post surgery postop day 4 #Left wrist fracture status post surgery postop day4 #Distal radius, distal ulna fracture status post surgery postop day 4 #Adenovirus positive #Metabolic encephalopathy?resolved #UTI #Acute blood loss anemia?improving #GERD #History of nausea vomiting?resolved #History of CHF, preserved EF #Diabetes mellitus #History of arthritis #History of asthma #CAD status post stent #Chronic kidney disease, creatinine at baseline. ? Came in after mechanical fall. Underwent left hip trochanteric femur nail, left wrist irrigation and debridement, left distal radius open reduction internal fixation, left distal ulna open reduction internal fixation, closed treatment left radial head fracture with splint and sling. Operative day 03/22/2023. ? Urinalysis abnormal. 3+ bacteria, 10-15 WBC, positive nitrates. Urine culture finalized. Sensitive to ceftriaxone..Complete total 7 days ? CT head unremarkable ? Orthopedic surgery consulted. Recommendations appreciated. They are following the case. Patient is status post surgery ? Last known dose of Eliquis unknown. Currently being held. Will discuss with general surgery regarding when to resume it. ? Chronically on 3 L nasal cannula. Currently requiring the same. ? Continue Mathew catheter. Will plan to remove the next 24 hours. ? Continue on morphine 4 mg IV every 4 hours as needed ? Reglan 10 mg IV every 6 hours as needed ? Continue on oral iron 150 twice daily ? Colace 100 twice daily ? Coreg 12.5 twice daily ? Protonix 40 daily orally ? Sliding scale insulin moderate dose intensity ? She has an hypoglycemic event 4. We will avoid basal insulin at this time. ? Order 2 units packed RBC. Recheck CBC 2 hours posttransfusion. Hemoglobin goal greater than 8 secondary to CAD status. Today's plan 03/26/2023 ?Urine culture growing gram-negative rods. Sensitive to ceftriaxone. Complete total 7 days. Last day antibiotics Mar 28, 2023 ? Continue to monitor hemoglobin. 8.7 today. s/p 3 units total ? Continue Mathew catheter. Add tamsulosin 0.4 today. ? Continue Eliquis ? Bumex 2 mg twice daily continued ? Chronic kidney disease. I would avoid ketorolac at this time. ? Continue on oxycodone IR 5 mg every 6 hours as needed. ? Continue cardiac carbohydrate consistent ? Up with assistance ? Physical therapy - Refer to inpatient rehab Full code Son Hubert López. . Disposition. Planning for inpatient rehab after discharge. Physical therapy update note : she is moderate assist from supine to sit maximum assist from sit to stand stand to sit minimum assist bed to chair: total dependent on 1 person assist she has decreased endurance, decreased strength Attestations Medical Necessity Statement*: Requires inpatient hospitalization for management of multiple fractures, metabolic encephalopathy, UTI, acute blood loss anemia Diagnoses Orthostasis I95.1 Atherosclerosis of coronary artery I25.10 Presence of stent in coronary artery in patient with coronary artery disease I25.10; Z95.5 Hearing loss H91.90 Gastroparesis K31.84 Fracture, intertrochanteric, left femur S72.142A Left radial head fracture S52.122A Open fracture of distal ends of both radius and ulna S52.509B; S52.609B Arthritis M19.90 Supplemental oxygen dependent Z99.81
--- NOTE | 2023-03-26 14:13 | PC.NURSE ---
pt has acetaminophen and nitro in her purse at bedside, pt refused for nurse to lock it in the pyxis.
[2023-03-26] MEDS: cefTRIAXone 1,000 MG in sodium chloride 0.9% (plus) 50 ML 100 MG IV (15:49)
[2023-03-26 17:10] LABS: Glucose Point of Care 281 mg/dL (70-110)
[2023-03-26 21:04] LABS: Glucose Point of Care 321 mg/dL (70-110)
[2023-03-26] MEDS: morphine 4 mg/mL SDV 1 mL IVP (21:36)
[2023-03-27] VITALS (12 sets, daily range): BP systolic 84–178; BP diastolic 49–92; PULSE 61–71; RESP 16–22; TEMP 36.5–36.8; O2SAT 92–98
[2023-03-27] MEDS: vancomycin 1,500 MG/300 ML PIGGYBACK 150 MG IV (00:52)
[2023-03-27] MEDS: acetaminophen 500 mg Tablet 1000 MG PO ×3 (00:53→15:26)
[2023-03-27] MEDS: oxyCODONE 5 mg IR Tab/Cap PO ×3 (02:06→18:44)
[2023-03-27 05:29] LABS: Basophils # 0.1 10^3/uL (0.0-0.1); Basophils % 0.6 %; Eosinophils # 0.4 10^3/uL (0.0-0.8); Eosinophils % 4.8 %; Hematocrit 26.6 % (36-47); Lymphocytes # 1.8 10^3/uL (0.8-4.8); Lymphocytes % 21.3 %; Mean Corpuscular HGB Conc 32.7 g/dL (30-55); Mean Corpuscular Hemoglobin 28.2 pg (27-33); Mean Corpuscular Volume 86.1 fl (85-98); Mean Platelet Volume 9.6 fL (7.4-10.4); Monocytes # 0.6 10^3/uL (0.2-0.9); Monocytes % 7.1 %; Neutrophils # 5.34 10^3/uL (1.8-7.7); Neutrophils % 64.7 %; Nucleated Red Blood Cells % 0 %; Platelet Count 316 10^3/cmm (157-399); Red Blood Count 3.09 10^6/uL (3.85-5.65); Red Cell Distribution Width 13.8 % (12.1-15.1); White Blood Count 8.26 10^3/uL (3.29-11.43)
[2023-03-27 05:54] LABS: Anion Gap 12.3 (5-19); Blood Urea Nitrogen 18 mg/dL (8-23); Calcium 9.1 mg/dL (8.5-10.5); Carbon Dioxide 29 mmol/L (22-29); Chloride 100 mmol/L (98-107); Glucose 199 mg/dL (65-115); Magnesium 1.7 mg/dL (1.7-2.3); Osmolality Calculated 293 mOsm/kg (285-295); Potassium 3.3 mmol/L (3.5-5.1); Sodium 138 mmol/L (136-145)
[2023-03-27 06:36] LABS: Glucose Point of Care 235 mg/dL (70-110)
[2023-03-27] MEDS: apixaban 5 mg Tablet PO ×2 (08:38→17:10)
[2023-03-27] MEDS: insulin lispro 100 unit/1 mL SUBCUT ×4 (08:38→21:27)
[2023-03-27] MEDS: docusate sodium 100 mg Capsule PO ×2 (08:38→17:10)
[2023-03-27] MEDS: pantoprazole DR 40 mg Tablet PO (08:38)
[2023-03-27] MEDS: multivitamin therapeutic Tablet 1 TAB PO (08:38)
[2023-03-27] MEDS: iron polysaccharide complex 150 mg Capsule PO ×2 (08:38→17:10)
[2023-03-27] MEDS: calcium carb-vit d 600mg/400unit 1 Tablet 1 EACH PO ×2 (08:38→17:10)
[2023-03-27] MEDS: carvedilol 12.5 mg Tablet PO ×2 (08:38→17:11)
[2023-03-27] MEDS: bumetanide 1 mg Tablet 2 MG PO ×2 (08:38→17:52)
[2023-03-27] MEDS: mupirocin oint 22 gm 1 APPLIC NASAL (08:39)
[2023-03-27] MEDS: chlorhexidine gluconate 0.12% Btl 473 mL 30 ML MUCOUS MEM ×3 (08:39→21:28)
[2023-03-27 11:27] LABS: Glucose Point of Care 398 mg/dL (70-110)
--- NOTE | 2023-03-27 11:41 | PM.DCS ---
Discharge Providers Date of Admission: 03/22/23 00:24 Date of Discharge: March 27, 2023 Attending Provider at Admission: Rose Alcazar MD Attending Provider at Discharge: Rose Alcazar MD Primary Care Provider: Avtar Bruce MD Diagnoses at Discharge Discharge Diagnosis (1) Orthostasis: Status: Acute (2) Atherosclerosis of coronary artery: Status: Acute (3) Presence of stent in coronary artery in patient with coronary artery disease: Status: Acute (4) Hearing loss: Status: Acute (5) Gastroparesis: Status: Acute (6) Fracture, intertrochanteric, left femur: Status: Acute (7) Left radial head fracture: Status: Acute (8) Open fracture of distal ends of both radius and ulna: Status: Acute (9) Arthritis: Status: Acute (10) Supplemental oxygen dependent: Status: Acute Reason for Visit Reason for Visit: FALL Hospital Course Hospital Course 72-year female who presented from the assisted living with altered mental status, she had a fall and she was diagnosed with multiple fractures on arrival she was evaluated by Dr. Blue for left wrist fracture which was reduced in the ER right away, next day she went for left hip ORIF, she also had fracture of radius and ulna, she tested positive for adenovirus during hospitalization which most likely was the cause of her metabolic encephalopathy with underlying UTI, postoperatively she suffered from blood loss anemia required 3 units PRBC, FOBT negative, no dark-colored stools, she has preserved action fraction heart failure, history of asthma and coronary disease, creatinine remained at baseline for her chronic kidney disease. She will be discharged back to her shelter. Physical Exam Narrative: Metabolic encephalopathy improved Awake and alert This is 50 Left wrist in a splint Awake and alert S1, S2 Currently on room air Hemodynamically stable Abdomen soft Urinary Catheter Management: Mathew: Cath Placed During This Visit: yes, but has since been removed by the nurse Reason for Continuing Indwelling Catheter: Acute Urinary Retention or Obstruction Urinary Catheter Date of Insertion: 03/25/23 Urinary Catheter Time of Insertion: 07:33 Date Urinary Catheter Removed: 03/24/23 Time Urinary Catheter Discontinued: 17:30 Discharge Data Studies Completed and Pending Completed Studies During Hospitalization Category Date Time Status CT cervical spin wo con* [id number] Stat Cat Scan 03/21/23 19:[address] head wo con* [id number] Stat Cat Scan 03/21/23 19:[address] wrist LT wo con* [id number] Urgent Cat Scan 03/21/23 22:53 Completed XR chest 1V 78489 Stat Exams 03/21/23 19:36 Completed XR chest 1V portable [id number] Routine Exams 03/23/23 12:43 Completed XR elbow LT 2V 08010 Stat Exams 03/21/23 20:06 Completed XR femur LT min 2V* [id number] Stat Exams 03/21/23 20:07 Completed XR forearm LT 2V 85090 Stat Exams 03/21/23 20:06 Completed XR hip LT 2-3V wo/w pel* [id number] Routine Exams 03/22/23 Completed XR hip LT 2-3V wo/w pel* [id number] Routine Exams 03/22/23 16:00 Completed XR hip LT 2-3V wo/w pel* [id number] Stat Exams 03/21/23 19:34 Completed XR knee LT 1-2V 22765 Stat Exams 03/21/23 20:07 Completed XR wrist LT 2V 35723 Routine Exams 03/22/23 16:00 Completed XR wrist LT 2V [id number] Urgent Exams 03/21/23 22:54 Completed XR wrist LT min 3V* [id number] Stat Exams 03/21/23 19:34 Completed Radiology Impressions Cervical Spine CT 03/21/23 19:34 IMPRESSION: No acute fracture or subluxation. Head CT 03/21/23 19:34 IMPRESSION: 1. No acute intracranial abnormality. 2. Partial opacification of the mastoid air cells which can be seen with mastoiditis. Elbow X-Ray 03/21/23 20:06 IMPRESSION: Question subtle fracture at the lateral base of the left radial head seen on both the AP and lateral projections. Correlate with point tenderness. Forearm X-Ray 03/21/23 20:06 IMPRESSION: 1. Comminuted and displaced intra-articular fracture of the distal left radius. 2. Displaced fracture of the distal left ulnar metaphysis and avulsion fracture of the ulnar styloid. Femur X-Ray 03/21/23 20:07 IMPRESSION: Comminuted displaced intertrochanteric fracture of the left femur. Knee X-Ray 03/21/23 20:07 IMPRESSION: No acute fracture or joint effusion. Wrist CT 03/21/23 22:53 IMPRESSION: 1. Acute appearing comminuted and impacted fracture of the distal radial metaphysis with intra-articular extension. 2. Obliquely oriented displaced acute fracture of the distal ulnar metadiaphysis with additional fracturing of the ulnar styloid process. 3. First carpometacarpal joint primary osteoarthritic changes. 4. Subcutaneous fat stranding is noted compatible with contusion without a well-defined hematoma. 5. Small foci of gas along the dorsum of the wrist are noted, possibly related to recent intravenous injection. No definite overlying laceration is identified. 6. Incidental note is made of mild chronic appearing bilateral maxillary sinus disease. Hip/Pelvis X-Ray 03/22/23 16:00 IMPRESSION: Status post ORIF as described above. Wrist X-Ray 03/22/23 16:00 IMPRESSION: Status post ORIF stabilizing acute fractures of the distal radius and ulna with improved alignment. Hardware appears intact without obvious complication. Chest X-Ray 03/23/23 12:43 IMPRESSION: No acute disease. Laboratory Results WBC 8.26 10^3/uL (3.29-11.43) 03/27/23 04:51 RBC 3.09 10^6/uL (3.85-5.65) L 03/27/23 04:51 Hgb 8.70 g/dL (11.27-16.99) L 03/27/23 04:51 Hct 26.6 % (36-47) L 03/27/23 04:51 MCV 86.1 fl (85-98) 03/27/23 04:51 MCH 28.2 pg (27-33) 03/27/23 04:51 MCHC 32.7 g/dL (30-55) 03/27/23 04:51 RDW 13.8 % (12.1-15.1) 03/27/23 04:51 Plt Count 316 10^3/cmm (157-399) 03/27/23 04:51 MPV 9.6 fL (7.4-10.4) 03/27/23 04:51 Neut % (Auto) 64.7 % 03/27/23 04:51 Lymph % (Auto) 21.3 % 03/27/23 04:51 [place] % (Auto) 7.1 % 03/27/23 04:51 Eos % (Auto) 4.8 % 03/27/23 04:51 Baso % (Auto) 0.6 % 03/27/23 04:51 Neut # (Auto) 5.34 10^3/uL (1.8-7.7) 03/27/23 04:51 Lymph # (Auto) 1.8 10^3/uL (0.8-4.8) 03/27/23 04:51 [place] # (Auto) 0.6 10^3/uL (0.2-0.9) 03/27/23 04:51 Eos # (Auto) 0.4 10^3/uL (0.0-0.8) 03/27/23 04:51 Baso # (Auto) 0.1 10^3/uL (0.0-0.1) 03/27/23 04:51 Nucleated RBC % (auto) 0 % 03/27/23 04:51 Nucleated RBCs # 0.0 /100WBC 03/27/23 04:51 PT 15.00 SECONDS (12.1-14.9) H 03/21/23 19:05 INR 1.14 (0.8-1.2) 03/21/23 19:05 APTT 27.8 SECONDS (23.9-36.7) 03/21/23 19:05 Specimen Type Arterial 03/21/23 21:30 Sample Site Radial, right 03/21/23 21:30 ABG pH 7.36 (7.35-7.45) 03/21/23 21:30 ABG pCO2 38.5 mmHg (35-45) 03/21/23 21:30 ABG pO2 91.3 mmHg (80.0-100.0) 03/21/23 21:30 ABG HCO3 21.5 mmol/L (22-26) L 03/21/23 21:30 ABG O2 Saturation 96.8 03/21/23 21:30 ABG Base Excess -3.7 mmol/L (-2.0-2.0) L 03/21/23 21:30 Stephen Test Pos 03/21/23 21:30 A-a O2 Gradient 1.4 mmHg (5-10) L 03/21/23 21:30 Hematocrit 34.5 % (37-47) L 03/21/23 21:30 Hgb O2 Saturation 95.5 % (95-100) 03/21/23 21:30 Carboxyhemoglobin 0.8 %THgb (0.4-20.1) 03/21/23 21:30 Methemoglobin 0.6 % (0.4-1.5) 03/21/23 21:30 Total Hemoglobin 11.2 g/dL (12-16) L 03/21/23 21:30 Sodium 138.0 mmol/L (131-143) 03/21/23 21:30 Potassium 4.1 mmol/L (3.5-5.0) 03/21/23 21:30 Glucose 247.0 mg/dL (70-115) H 03/21/23 21:30 Ionized Calcium 1.2 mmol/L (1.1-1.4) 03/21/23 21:30 O2 Delivery Device Room air 03/21/23 21:30 Machine Operator General ID [email or web address] 03/21/23 21:30 Sodium 138 mmol/L (136-145) 03/27/23 04:51 Potassium 3.3 mmol/L (3.5-5.1) L 03/27/23 04:51 Chloride 100 mmol/L (98-107) 03/27/23 04:51 Carbon Dioxide 29 mmol/L (22-29) 03/27/23 04:51 Anion Gap 12.3 (5-19) 03/27/23 04:51 BUN 18 mg/dL (8-23) 03/27/23 04:51 Creatinine 0.8 mg/dL (0.5-0.9) 03/27/23 04:51 GFR Calculation Not Reportable 03/27/23 04:51 Glucose 199 mg/dL (65-115) H 03/27/23 04:51 POC Glucose 398 mg/dL (70-110) H 03/27/23 10:46 Calculated Osmolality 293 mOsm/kg (285-295) 03/27/23 04:51 Lactic Acid 2.3 mmol/L (0.5-2.2) H 03/21/23 19:51 Lactic Acid (Sepsis) 2.9 mmol/L (0.5-2.2) H 03/21/23 22:13 Calcium 9.1 mg/dL (8.5-10.5) 03/27/23 04:51 Phosphorus 2.4 mg/dL (2.5-4.5) L 03/26/23 04:34 Magnesium 1.7 mg/dL (1.7-2.3) 03/27/23 04:51 Total Bilirubin 0.3 mg/dL (0.15-1.2) 03/21/23 21:09 AST 12 U/L (0-32) 03/21/23 21:09 ALT 7 U/L (0-33) 03/21/23 21:09 Alkaline Phosphatase 53 U/L (35-105) 03/21/23 21:09 C-Reactive Protein 10.1 mg/L (0.0-4.9) H 03/22/23 04:38 Total Protein 7.1 g/dL (6.6-8.7) 03/21/23 21:09 Albumin 4.0 g/dL (3.5-5.2) 03/21/23 21:09 Globulin 3.1 g/dL (1.3-4.6) 03/21/23 21:09 TSH 6.84 uIU/mL (0.27-4.20) H 03/21/23 21:09 Urine Color Yellow (Yellow) 03/21/23 20:40 Urine Appearance Clear (CLEAR) 03/21/23 20:40 Urine pH 5 (5-7) 03/21/23 20:40 Ur Specific [place] 1.005 (1.005-1.030) 03/21/23 20:40 Urine Protein Neg (Negative) 03/21/23 20:40 Urine Glucose (UA) Norm (Normal) 03/21/23 20:40 Urine Ketones Negative (Negative) 03/21/23 20:40 Urine Blood Neg (Negative) 03/21/23 20:40 Urine Nitrate Positive (Negative) H 03/21/23 20:40 Urine Bilirubin Neg (Negative) 03/21/23 20:40 Urine Urobilinogen Neg mg/dL (Negative) 03/21/23 20:40 Ur Leukocyte Esterase Trace (Negative) H 03/21/23 20:40 Urine RBC None /hpf (0-2) 03/21/23 20:40 Urine WBC 10-15 /hpf (0-5) H 03/21/23 20:40 Ur Squamous Epith Cells 0-4 /hpf (0-5) H 03/21/23 20:40 Amorphous Sediment Not Reportable 03/21/23 20:40 Urine Bacteria 3+ /hpf (NONE) H 03/21/23 20:40 Vancomycin Trough 19.5 ug/mL (10-15) H 03/25/23 01:11 Urine Opiates Screen Negative ng/mL (Negative) 03/21/23 20:40 Ur Barbiturates Screen Negative ng/mL (Negative) 03/21/23 20:40 Ur Phencyclidine Scrn Negative ng/mL (Negative) 03/21/23 20:40 Ur Amphetamines Screen Negative ng/mL (Negative) 03/21/23 20:40 U Benzodiazepines Scrn Negative ng/mL (Negative) 03/21/23 20:40 Urine Cocaine Screen Negative ng/mL (Negative) 03/21/23 20:40 U Marijuana (THC) Screen Negative ng/mL (Negative) 03/21/23 20:40 Adenovirus (PCR) Detected (NOT DETECT) A 03/21/23 22:06 Coronavirus 229E (PCR) Not detected (NOT DETECT) 03/21/23 19:51 Influenza Type A Ag negative (Negative) 03/21/23 20:38 Influenza Type B Ag negative (Negative) 03/21/23 20:38 SARS-CoV-2 (PCR) Not detected (NOT DETECT) 03/21/23 19:51 Blood Type A Positive 03/25/23 10:28 Rho(D) Type Rh positive 03/25/23 10:28 Antibody Screen Negative 03/25/23 10:28 Crossmatch See Detail 03/25/23 10:28 Vitals Last Vital Signs Temp 98.3 F 03/27/23 11:12 Pulse 68 03/27/23 11:12 Resp 22 H 03/27/23 11:12 BP 157/59 03/27/23 11:12 Pulse Ox 96 03/27/23 11:12 O2 Del Method Room Air 03/27/23 11:12 O2 Flow Rate 1 03/23/23 23:54 Discharge Plan Discharge Patient Disposition: Xfer SNF Condition: Stable Prescriptions: New oxycodone 5 mg tablet 5 mg PO Q6H PRN (Reason: pain postop) 7 Days Qty: 28 0RF ondansetron 4 mg tablet,disintegrating 4 mg PO Q8H 3 Days Qty: 9 0RF Calcium 600 + D(3) 600 mg-10 mcg (400 unit) tablet 1 tab PO DAILY 30 Days Qty: 30 0RF cephalexin 500 mg capsule 500 mg PO TID 10 Days Qty: 30 0RF oxycodone 5 mg Tablet 5 mg PO Q6H PRN (Reason: Mod to severe pain , 2nd line) Qty: 20 0RF amoxicillin-pot clavulanate 875-125 mg tablet 1 tab PO BID Qty: 14 0RF sennosides-docusate sodium [Laxacin] 8.6-50 mg tablet 1 tab-cap PO DAILY Qty: 30 0RF Continued tiotropium bromide [Spiriva with HandiHaler] 18 mcg capsule, w/inhalation device 1 cap inhalation DAILY Qty: 60 2RF Rx Instructions: puncture 1 cap using device; one dose = 2 inhalations Anoro Ellipta 62.5-25 mcg/actuation blister with device 1 inh inhalation DAILY Qty: 60 2RF acetaminophen 500 mg capsule 1,000 mg PO Q6H PRN (Reason: Pain) Victoza 3-Krishna 0.6 mg/0.1 mL (18 mg/3 mL) pen injector 1.2 mg SUBCUT DAILY 30 Days Qty: 9 2RF (DME) ReliOn Prime Test Strips Strip See Rx Instructions .Route Qty: 300 3RF Rx Instructions: As directed with Relion meter TID 90 day supply (DME) OneTouch Ultra Test Strip See Rx Instructions .ROUTE .COMPLEX Qty: 100 11RF Dose Instruction: DIRECTED, CHECK SUGARS DAILY FASTING AND OCCASIONALLY ONE HOUR POST MEAL INSTEAD OF FASTING E11.9 Rx Instructions: DIRECTED, CHECK SUGARS DAILY FASTING AND OCCASIONALLY ONE HOUR POST MEAL INSTEAD OF FASTING E11.9 carvedilol 12.5 mg tablet 12.5 mg PO BID Qty: 180 3RF clopidogrel 75 mg tablet 75 mg PO DAILY Qty: 90 3RF (DME) insulin syringe-needle U-100 [BD Insulin Syringe Ultra-Fine] 1 mL 31 gauge x 5/16 syringe See Rx Instructions .ROUTE .COMPLEX Qty: 100 3RF Dose Instruction: DIRECTED Rx Instructions: DIRECTED amlodipine 10 mg tablet 10 mg PO DAILY Qty: 90 3RF metoclopramide HCl 10 mg tablet 10 mg PO QID PRN (Reason: nausea and vomiting) Qty: 120 1RF pantoprazole 40 mg tablet,delayed release (DR/EC) 40 mg PO DAILY Qty: 90 3RF ropinirole 2 mg tablet 2 mg PO DAILY Qty: 30 1RF losartan 100 mg tablet 100 mg PO QAM Qty: 90 1RF fenofibrate nanocrystallized 145 mg tablet 145 mg PO DAILY Qty: 90 1RF atorvastatin 80 mg tablet 80 mg PO BEDTIME Qty: 90 1RF Eliquis 5 mg tablet 5 mg PO BID Qty: 90 3RF bismuth subsalicylate [Pepto-Bismol] 262 mg/15 mL Suspension 524 mg PO Q1H PRN (Reason: Gastrointestinal Spasms Or Cramping) Rx Instructions: do not exceed 8 doses in a 24 hour period cholecalciferol (vitamin D3) [Vitamin D3] 25 mcg (1,000 unit) Tablet 25 mcg PO DAILY polyethylene glycol 3350 [Miralax] 17 gram powder in packet 17 g PO DAILY PRN (Reason: constipation) Qty: 14 0RF multivitamin Tablet 1 tab PO DAILY Lantus U-100 Insulin 100 unit/mL solution 30 unit SUBCUT DAILY isosorbide mononitrate 30 mg tablet extended release 24 hr 30 mg PO DAILY Changed bumetanide 2 mg tablet 2 mg PO DAILY Qty: 30 0RF potassium chloride 20 mEq tablet extended release 40 meq PO DAILY Qty: 30 0RF Discontinued metformin 1,000 mg tablet 1,000 mg PO BID Qty: 180 3RF Hold Instructions: Resume on 06/11/21. Hold on 06/09 and 06/10. Discharge Orders: Discharge Order (Routine); Ordered 03/27/23 Ordered By: Rose Alcazar Referrals: Vic Blue DO [Physician] - 04/05/23 2:15 pm Avtar Bruce MD [Primary Care Provider] - 04/02/23 9:30 am Discharge Activity: Limit activity as instructed, Use walker/crutches as instructed and As per PT/OT instructions Activity Restrictions/Additional Instructions: Postop Troch Nail and Distal radius/ulna ORIF Orthopedic discharge instructions: Weightbearing as tolerated to the operative Left lower extremity Patient should be nonweightbearing to the operative left upper extremity Maintain Sling and splint until follow-up Keep splint clean dry and intact Elevation and ice as needed for pain and swelling Encourage finger range of motion Ice as needed for pain and swelling Encourage knee and hip range of motion as tolerated PT/OT Take pain medication as prescribed Take antinausea medication as needed Supplement with Citracal vitamin D for bone health and healing Resume home eliquis (blood thinner) as prescribed for blood clot prevention Take Colace as needed for constipation Leave Silverlon dressings on and in place for 7 days. After this they may be removed you may shower/rinse incisions with warm soapy water, pat dry redress with a dry dressing. Okay to sponge bath/shower with Silverlon dressings as they should be waterproof however if they do get saturated or wet please take these off dry the incision and redressed with a new dry sterile bandage. Follow-up in the orthopedic office with Dr. Blue in 2 weeks for repeat x-rays and incision check/staple removal Contact the office for any questions or concerns (i.e. increasing redness and drainage around the incision, fevers, or chills, or severe worsening in pain/change in symptoms) Discharge Attestations Time Spent in Discharge Care*: greater than 30 min Status at Discharge: Cognitive status at discharge: mildly impaired cognition, Behavioral status at discharge: cooperative, Quality Metrics Clinical Quality Measures [ No reported AMI, CVA or VTE this stay] Coding Level of Care Code Acute Code for Chg Fwd Diagnoses Orthostasis I95.1 Atherosclerosis of coronary artery I25.10 Presence of stent in coronary artery in patient with coronary artery disease I25.10; Z95.5 Hearing loss H91.90 Gastroparesis K31.84 Fracture, intertrochanteric, left femur S72.142A Left radial head fracture S52.122A Open fracture of distal ends of both radius and ulna S52.509B; S52.609B Arthritis M19.90 Supplemental oxygen dependent Z99.81
--- NOTE | 2023-03-27 13:47 | P.PN_ITS ---
Subjective 2 Subjective: Patient seen and examined today per the request of the nursing staff just for evaluation of dressings prior to discharge. Left hip dressings were changed with new Silverlon just yellow serosanguineous edematous drainage was noted. Patient is taken off her wrist brace multiple times as result we will place her into a left wrist splint by nursing staff today with a compressive sleeve to help on her swelling and she is stable for discharge from Ortho standpoint Vitals/I&O/Wt Last Vital Signs Temp 98.3 F 03/27/23 11:12 Pulse 68 03/27/23 11:12 Resp 22 H 03/27/23 11:12 BP 157/59 03/27/23 11:12 Pulse Ox 96 03/27/23 11:12 O2 Del Method Room Air 03/27/23 11:12 O2 Flow Rate 1 03/23/23 23:54 03/26/23 03/27/23 03/27/23 22:59 06:59 14:59 Intake Total 170 / 650 300 / 950 960 / 960 Output Total 200 / 200 1950 / 2150 550 / 550 Balance -30 / 450 -1650 / -1200 410 / 410 Weight last 48 hrs Weight 219 lb 6.4 oz Weight 222 lb Physical Exam 2 Narrative: Splint left upper subsequently down and only soft dressings applied over the incision. Has good capillary refill she is able to wiggle her fingers and sensations intact to light touch distally. No signs of drainage or saturation of the dressing. Compartments soft and compressible, volar splint applied per nursing staff left hip incision is clean dry and intact, mild edematous yellow serosanguineous saturation today is new bandage was applied today patient's has normal postoperative swelling around the left thigh, compartments are soft compressible. Urinary Catheter Management: Mathew: Cath Placed During This Visit: yes, but has since been removed by the nurse Reason for Continuing Indwelling Catheter: Acute Urinary Retention or Obstruction Urinary Catheter Date of Insertion: 03/25/23 Urinary Catheter Time of Insertion: 07:33 Date Urinary Catheter Removed: 03/24/23 Time Urinary Catheter Discontinued: 17:30 Data 03/27/23 04:51 03/27/23 04:51 A&P Assessment and plan (1) Open fracture of distal ends of both radius and ulna: (2) Left radial head fracture: (3) Fracture, intertrochanteric, left femur: Plan Continue IV antibiotics for infection prophylaxis given grade 1 open injury Internal medicine on board as primary Encourage finger range of motion as tolerated, maintain splint, elevation and ice as needed?new volar splint applied per nursing staff Nonweightbearing left upper extremity. weightbearing as tolerated left lower extremity Left hip Silverlon dressing was changed today Pain control DVT prophylaxis Patient stable to discharge orthopedic standpoint discharge instructions medications are on patient's chart. Orthopedics will sign off and follow peripherally follow-up in 2 weeks. Attestations 2 Medical Necessity Statement*: Requires inpatient hospitalization for management of multiple fractures, metabolic encephalopathy, UTI, acute blood loss anemia Coding Level of Care Code Acute Code for [facility] Fwd Diagnoses Open fracture of distal ends of both radius and ulna S52.509B; S52.609B Left radial head fracture S52.122A Fracture, intertrochanteric, left femur S72.142A Time Spent (min) 15
[2023-03-27] MEDS: cefTRIAXone 1,000 MG in sodium chloride 0.9% (plus) 50 ML 100 MG IV (15:26)
[2023-03-27 15:58] LABS: Glucose Point of Care 440 mg/dL (70-110)
[2023-03-27 21:08] LABS: Glucose Point of Care 352 mg/dL (70-110)
--- NOTE | 2023-03-27 23:24 | PC.NURSE ---
Volar splint applied to left wrist. Xero form and non adhesive island layer left on incision site. Splint includes: 8 inches tubi senior water resources engineer 1 roll 3 padding 8 inches of 3 ortho-glass 1 roll 3 becka Pt left hand swollen, bruised and overall discolored before application of splint. Radial pulse present, cap refill > 2. Pt educated on elevation and the importance of leaving the splint on. Cap refill > 2 after splint applied.
--- NOTE | 2023-03-27 23:30 | PC.NURSE ---
Pt stated that she was wet and needed to be change. This RN + 1 changed pt gown and saturated chucks, performed cassius care. Refreshed ice water. Lights dimmed and call light placed at bedside.
[2023-03-28] VITALS: BP 162/70; PULSE 57; RESP 17; TEMP 36.8; O2SAT 97
[2023-03-28] MEDS: acetaminophen 500 mg Tablet 1000 MG PO ×2 (00:05→07:38)
[2023-03-28 01:06] VITALS: RESP 16
[2023-03-28] MEDS: oxyCODONE 5 mg IR Tab/Cap PO ×2 (01:06→07:39)
[2023-03-28 04:00] VITALS: BP 183/72; PULSE 71; RESP 18; TEMP 36.8; O2SAT 95
--- NOTE | 2023-03-28 05:29 | PC.NURSE ---
Mitul Mendieta called at approx 1930 on 03/27 and said they were unable to transport patient to [facility] due to a lack of ambulances. They said they should have a truck here sometime in the morning of 03/28 though. [facility] updated with this.
[2023-03-28 06:45] LABS: Glucose Point of Care 305 mg/dL (70-110)
[2023-03-28] MEDS: insulin lispro 100 unit/1 mL SUBCUT (07:39)
[2023-03-28] MEDS: iron polysaccharide complex 150 mg Capsule PO (07:39)
[2023-03-28 08:00] VITALS: BP 159/68; PULSE 74; RESP 18; TEMP 36.7; O2SAT 96
[2023-03-28 09:47] VITALS: BP 159/68; PULSE 74; RESP 18; TEMP 36.7; O2SAT 96
== END 2023-03-28 09:48 | DRG 957 ==
LOC: ER 21:43 → MEDSURG 22:33
PROVIDERS: Internal Medicine; Student in an Organized Health Care Education/Training Program; Admitting Provider Internal Medicine; Emergency Provider Emergency Medicine; PCP Family Medicine; Visit Provider Internal Medicine
PROC: 0QH534Z Insertion of Internal Fixation Device into Left Acetabulum, Percutaneous Approach (ICD-10-PCS; principal; 2023-03-22 07:00)
PROC: 0QH534Z Insertion of Internal Fixation Device into Left Acetabulum, Percutaneous Approach (ICD-10-PCS; CPT 27245; 2023-03-22 07:00)
DX: S72.142A Displaced intertrochanteric fracture of left femur, initial encounter for closed fracture (principal); S52.572B Other intraarticular fracture of lower end of left radius, initial encounter for open fracture type I or II; G93.41 Metabolic encephalopathy; S52.612B Displaced fracture of left ulna styloid process, initial encounter for open fracture type I or II; I13.0 Hypertensive heart and chronic kidney disease with heart failure and stage 1 through stage 4 chronic kidney disease, or unspecified chronic kidney disease; I50.32 Chronic diastolic (congestive) heart failure; D62 Acute posthemorrhagic anemia; N39.0 Urinary tract infection, site not specified; S52.125A Nondisplaced fracture of head of left radius, initial encounter for closed fracture; W01.0XXA Fall on same level from slipping, tripping and stumbling without subsequent striking against object, initial encounter; R09.02 Hypoxemia; B34.0 Adenovirus infection, unspecified; E11.43 Type 2 diabetes mellitus with diabetic autonomic (poly)neuropathy; K31.84 Gastroparesis; I25.10 Atherosclerotic heart disease of native coronary artery without angina pectoris; E78.5 Hyperlipidemia, unspecified; N18.9 Chronic kidney disease, unspecified; E11.22 Type 2 diabetes mellitus with diabetic chronic kidney disease; F03.90 Unspecified dementia, unspecified severity, without behavioral disturbance, psychotic disturbance, mood disturbance, and anxiety; H91.90 Unspecified hearing loss, unspecified ear; G25.81 Restless legs syndrome; K21.9 Gastro-esophageal reflux disease without esophagitis; Z11.52 Encounter for screening for COVID-19; Z99.81 Dependence on supplemental oxygen; Z79.84 Long term (current) use of oral hypoglycemic drugs; Z79.02 Long term (current) use of antithrombotics/antiplatelets; Z79.01 Long term (current) use of anticoagulants; Z79.4 Long term (current) use of insulin; Z95.5 Presence of coronary angioplasty implant and graft; Z86.711 Personal history of pulmonary embolism
CPT/HCPCS: 36415; 36416; 36430; 36600; 51702; 70450; 71045; 72125; 73070; 73090; 73100; 73110; 73200; 73502; 73552; 73560; 76000; 80048; 80051; 80053; 80202; 80306; 81001; 82330; 82805; 82962; 83605; 83735; 84100; 84443; 85014; 85018; 85025; 85610; 85730; 86140; 86850; 86900; 86920; 87077; 87086; 87186; 87635; 87798; 87804; 96365; 96372; 97110; 97116; 97161; 97167; 97530; 97535; 99285; C1713 ×2; C9113; J0131; J0330; J0690; J0696; J1100; J1170; J1650; J1815; J1885; J2270; J2371; J2405; J2543; J2704; J2765; J3010; J3370; J3475; J3490; J7030; P9016; P9045

== ENCOUNTER 2023-05-18 06:00 | Outpatient (CLI) | payer MEDICAID, SELFPAY | END 2023-05-18 06:01 | LOC: SOT 05-21 11:18 | PROVIDERS: PCP Family Medicine; Visit Provider Physician Assistant | DX: Z46.89 Encounter for fitting and adjustment of other specified devices (principal); S52.122D Displaced fracture of head of left radius, subsequent encounter for closed fracture with routine healing; X58.XXXD Exposure to other specified factors, subsequent encounter | CPT/HCPCS: 97760; 99213; L3906 ==

== ENCOUNTER → 2023-05-18 09:33 | Outpatient (BNVA) | payer MEDICAID, SELFPAY | PROVIDERS: PCP Family Medicine; Visit Provider Student in an Organized Health Care Education/Training Program | DX: Z98.890 Other specified postprocedural states; S72.002D Fracture of unspecified part of neck of left femur, subsequent encounter for closed fracture with routine healing; S52.602D Unspecified fracture of lower end of left ulna, subsequent encounter for closed fracture with routine healing; S52.502D Unspecified fracture of the lower end of left radius, subsequent encounter for closed fracture with routine healing; X58.XXXD Exposure to other specified factors, subsequent encounter | CPT/HCPCS: 73110; 73502 ==

== ENCOUNTER → 2023-06-26 13:52 | Outpatient (BNVA) | payer MEDICAID, SELFPAY | PROVIDERS: PCP Family Medicine; Visit Provider Student in an Organized Health Care Education/Training Program | DX: Z98.890 Other specified postprocedural states; S72.002D Fracture of unspecified part of neck of left femur, subsequent encounter for closed fracture with routine healing; X58.XXXD Exposure to other specified factors, subsequent encounter; Z79.4 Long term (current) use of insulin; Z79.84 Long term (current) use of oral hypoglycemic drugs | CPT/HCPCS: 73110; 73502; 99213 ==

== ENCOUNTER 2023-07-17 11:59 | Emergency (ER) | payer MEDICAID, SELFPAY ==
--- NOTE | 2023-07-17 12:01 | XR_ITS ---
WS: [id number] XR chest 1V portable [id number] REASON FOR EXAM: CXP FINDINGS: Mild tortuosity of the thoracic aorta with cardiomegaly. Blunting of the right costophrenic angle. Opacity in the left lower chest which appears to be lung consolidation and pleural effusion. XR/XR chest 1V portable [id number] IMPRESSION: Bilateral pleural effusions and consolidation in the left lower lung. This may represent congestive failure with effusions and atelectasis in the left lower l kita.
--- NOTE | 2023-07-17 12:01 | ECG_ITS ---
[facility] Test Date: 2023-07-17 Pat Name: Lady López Department: Room: Gender: Female Color Card Maker: : 1950 Requested By: Sami Liu Order Number: [id number] Kelby MD: Bryan Posadas M.D. Measurements Intervals [place] Rate: 71 P: -14 [place]: 147 QRS: -18 QRSD: 85 T: 65 QT: 398 QTc: 435 Interpretive Statements SINUS RHYTHM LOW QRS VOLTAGE [QRS DEFLECTION < 0.5/1.0 mV IN LIMB/CHEST LEADS] POSSIBLE ANTERIOR MYOCARDIAL INFARCTION , PROBABLY OLD [30 ms Q WAVE IN V3/V4, OR R < 0.2 mV IN V4] Compared to ECG 02/24/2023 12:18:21 No significant changes Electronically Signed On 07-17-2023 17:17:44 CDT by Bryan Posaads M.D. [email or web address]
[2023-07-17 12:04] VITALS: BP 160/90; PULSE 73; RESP 18; TEMP 36.8; O2SAT 94; BMI 35.7
[2023-07-17] MEDS: aspirin 81 mg Chew Tablet 324 MG PO (12:14)
--- NOTE | 2023-07-17 12:18 | ED_ITS ---
HPI - Chest Pain 2 General: Chief Complaint: Chest Pain Stated Complaint: SOB,CP Time Seen by Provider: 07/17/23 12:00 History of Present Illness: 73-year-old female presents emergency de partment from her long-term care facility via EMS personnel. The patient states she has had left chest wall pain intermittently for the previous 2 days. She states she also feels like she has a nonproductive cough and has become short of breath. She states that her chest pain is a intermittent sharp stabbing pain that is a 3 out of 10 when she takes a deep breath in. It is worse when she takes of breath or when someone pushes on her chest. EMS personnel did give her an albuterol nebulizer treatment and route and it did significantly clear her expiratory wheezing as reported by EMS. The patient is chronically on 3 L nasal cannula and she has not required any increased supplemental oxygen. She does not appear to be in any acute distress. Associated symptoms: Reports dyspnea Review of Systems 2 General: Reports: 10 or more systems reviewed and unremarkable except in HPI and below Card: Reports: chest pain and swelling of feet/ankles; Denies: irregular heart rhythm Resp: Reports: dyspnea and non-productive cough PFSH ED 2 PFSH: Medical History Fracture, intertrochanteric, left femur Left radial head fracture Open fracture of distal ends of both radius and ulna Hearing loss Gastroparesis Orthostasis Supplemental oxygen dependent Failure to thrive in adult Hyperglycemia Anemia Hyponatremia Nausea & vomiting Dilation of pulmonary artery GERD (gastroesophageal reflux disease) Restless leg syndrome Presence of stent in coronary artery in patient with coronary artery disease Heart failure with preserved ejection fraction Altered mental status Diabetes CHF (congestive heart failure) Atherosclerosis of coronary artery Hyperlipidemia Pulmonary embolism DKA (diabetic ketoacidosis) Hypertensive urgency DM type 2 (diabetes mellitus, type 2) Arthritis Asthma HTN (hypertension) Small bowel mass Surgical History Hx of cholecystectomy Family History Other Cancer Stroke Social History Smoking and tobacco/nicotine status: never used tobacco/nicotine Alcohol intake: never Substance/Drug Use: never Lives independently: Yes Household members: none Marital status: / Physical Exam 2 Narrative: EXAM NARRATIVE: General: Alert, no acute distress. Skin: Warm, dry, Intact. Head: Normocephalic, atraumatic. Neck: Supple, trachea midline. Eye: Extraocular movements are intact. PERRLA Ears, nose, mouth and throat: mucosa moist. Cardiovascular: Regular, Normal peripheral perfusion. Respiratory: Intermittent expiratory wheezes, mild rhonchi noted to the left lower lobe. Chronic supplemental O2 at 3 L nasal cannula, respirations are non- labored, breath sounds are equal, Symmetrical chest wall expansion. Gastrointestinal: Soft, Nontender, Non distended, Normal bowel sounds. Musculoskeletal: Normal ROM, no deformity. Tenderness to palpation to the left sternal border/costal angle. Neurological: Alert and oriented, No focal neurological deficit observed. Psychiatric: Cooperative, appropriate mood & affect. Course 2 Vital Signs: Vital signs: Vital Signs Temperature 98.2 F 07/17/23 12:04 Pulse Rate 65 07/17/23 13:23 Respiratory Rate 16 07/17/23 13:23 Blood Pressure 160/90 07/17/23 12:04 Pulse Oximetry 97 07/17/23 13:23 Oxygen Delivery Me thod Nasal Cannula 07/17/23 13:23 Oxygen Flow Rate 3 07/17/23 13:23 MDM - Chest Pain Medical Decision Making Physical exam completed and documented, I will obtain serial cardiac enzymes, serial twelve-lead EKGs, chest x-ray, CBC, CMP, urinalysis, B-type natriuretic peptide, PT/PTT/INR, and a chest x-ray. I will provide cardiac dose aspirin. I have reviewed previous and pertinent medical records for assist in obtaining beneficial medical information to improved the care and treatment of the patient. Chest x-ray demonstrates bilateral pleural effusions with left lower lobe consolidation I will provide IV antibiotics and will discharge the patient back to her long-term care facility with PCP follow-up and written prescription for antibiotics. Medical Records I reviewed the patient's medical records. Lab Data I reviewed the patient's lab results. 07/17/23 12:35 07/17/23 12:35 Radiology Impressions Chest X-Ray 07/17/23 12:01 IMPRESSION: Bilateral pleural effusions and consolidation in the left lower lung. This may represent congestive failure with effusions and atelectasis in the left lower lung. Laboratory Results WBC 8.10 10^3/uL (3.29-11.43) 07/17/23 12:35 RBC 3.51 10^6/uL (3.85-5.65) L 07/17/23 12:35 Hgb 9.50 g/dL (11.27-16.99) L 07/17/23 12:35 Hct 30.2 % (36-47) L 07/17/23 12:35 MCV 86.0 fl (85-98) 07/17/23 12:35 MCH 27.1 pg (27-33) 07/17/23 12:35 MCHC 31.5 g/dL (30-55) 07/17/23 12:35 RDW 13.7 % (12.1-15.1) 07/17/23 12:35 Plt Count 302 10^3/cmm (157-399) 07/17/23 12:35 MPV 8.9 fL (7.4-10.4) 07/17/23 12:35 Neut % (Auto) 72.1 % 07/17/23 12:35 Lymph % (Auto) 15.8 % 07/17/23 12:35 [place] % (Auto) 6.8 % 07/17/23 12:35 Eos % (Auto) 4.4 % 07/17/23 12:35 Baso % (Auto) 0.5 % 07/17/23 12:35 Neut # (Auto) 5.84 10^3/uL (1.8-7.7) 07/17/23 12:35 Lymph # (Auto) 1.3 10^3/uL (0.8-4.8) 07/17/23 12:35 [place] # (Auto) 0.6 10^3/uL (0.2-0.9) 07/17/23 12:35 Eos # (Auto) 0.4 10^3/uL (0.0-0.8) 07/17/23 12:35 Baso # (Auto) 0.0 10^3/uL (0.0-0.1) 07/17/23 12:35 Nucleated RBC % (auto) 0 % 07/17/23 12:35 Nucleated RBCs # 0.0 /100WBC 07/17/23 12:35 PT 16.20 SECONDS (12.1-14.9) H 07/17/23 12:35 INR 1.26 (0.8-1.2) H 07/17/23 12:35 Sodium 134 mmol/L (136-145) L 07/17/23 12:35 Potassium 4.5 mmol/L (3.5-5.1) 07/17/23 12:35 Chloride 98 mmol/L (98-107) 07/17/23 12:35 Carbon Dioxide 28 mmol/L (22-29) 07/17/23 12:35 Anion Gap 12.5 (5-19) 07/17/23 12:35 BUN 16 mg/dL (8-23) 07/17/23 12:35 Creatinine 0.6 mg/dL (0.5-0.9) 07/17/23 12:35 GFR Calculation Not Reportable 07/17/23 12:35 Glucose 119 mg/dL (65-115) H 07/17/23 12:35 POC Glucose 122 mg/dL (70-110) H 07/17/23 12:29 Calculated Osmolality 280 mOsm/kg (285-295) L 07/17/23 12:35 Calcium 9.1 mg/dL (8.5-10.5) 07/17/23 12:35 Total Bilirubin 0.2 mg/dL (0.15-1.2) 07/17/23 12:35 AST 9 U/L (0-32) 07/17/23 12:35 ALT < 5 U/L (0-33) 07/17/23 12:35 Alkaline Phosphatase 76 U/L (35-105) 07/17/23 12:35 Troponin T Baseline 16 ng/L (0-10) H 07/17/23 12:35 Troponin T 120 Minute 14.38 ng/L (0-10) H 07/17/23 14:47 Delta Troponin T -1.62 ABS# (0-10) L 07/17/23 14:47 NT-Pro-B Natriuret Pep 850 pg/mL (0-125) H 07/17/23 12:35 Total Protein 6.8 g/dL (6.6-8.7) 07/17/23 12:35 Albumin 3.7 g/dL (3.5-5.2) 07/17/23 12:35 Globulin 3.1 g/dL (1.3-4.6) 07/17/23 12:35 All radiology interpretation(s) finalized by discharge EKG Data EKG 1: Interpretation: Twelve-lead EKG obtained at 1206 and reviewed at 1208 demonstrates sinus rhythm, ventricular rate 70 bpm, SC interval 147, QRS duration 85, QT 398, QTc [address] elevation or depression to demonstrate acute ischemia or infarction there is significant motion artifact noted on twelve-lead EKG. Discharge Plan Discharge Patient Disposition: Home Clinical Impression: Acute costochondritis Pneumonia Qualifiers: Pneumonia type: due to unspecified organism Laterality: left Lung location: l ower lobe of lung Qualified Code(s): J18.9 - Pneumonia, unspecified organism Condition: Stable Prescriptions: New guaifenesin 1,200 mg tablet extended release 12hr 1,200 mg PO BID Qty: 14 0RF levofloxacin 750 mg tablet 750 mg PO DAILY 7 Days Qty: 7 0RF albuterol sulfate 90 mcg/actuation HFA aerosol inhaler 2 inh inhalation Q6H PRN (Reason: shortness of breath or wheezing) Qty: 8.5 0RF No Action tiotropium bromide [Spiriva with HandiHaler] 18 mcg capsule, w/inhalation device 1 cap inhalation DAILY Qty: 60 2RF Rx Instructions: puncture 1 cap using device; one dose = 2 inhalations acetaminophen 500 mg capsule 1,000 mg PO Q6H PRN (Reason: Pain) insulin lispro [Humalog KwikPen Insulin] 100 unit/mL insulin pen 5 unit SUBCUT .sliding scale metformin 1,000 mg tablet 1,000 mg PO BID hydralazine 25 mg tablet 25 mg PO TID tramadol 50 mg tablet 50 mg PO BID PRN (DME) left custom volar splint See Rx Instructions .Route .MEDSUPPLY Qty: 1 0RF Rx Instructions: As directed (DME) ReliOn Prime Test Strips Strip See Rx Instructions .Route Qty: 300 3RF Rx Instructions: As directed with Relion meter TID 90 day supply (DME) OneTouch Ultra Test Strip See Rx Instructions .ROUTE .COMPLEX Qty: 100 11RF Dose Instruction: DIRECTED, CHECK SUGARS DAILY FASTING AND OCCASIONALLY ONE HOUR POST MEAL INSTEAD OF FASTING E11.9 Rx Instructions: DIRECTED, CHECK SUGARS DAILY FASTING AND OCCASIONALLY ONE HOUR POST MEAL INSTEAD OF FASTING E11.9 (DME) insulin syringe-needle U-100 [BD Insulin Syringe Ultra-Fine] 1 mL 31 gauge x 5/16 syringe See Rx Instructions .ROUTE .COMPLEX Qty: 100 3RF Dose Instruction: DIRECTED Rx Instructions: DIRECTED amlodipine 10 mg tablet 10 mg PO DAILY Qty: 90 3RF pantoprazole 40 mg tablet,delayed release (DR/EC) 40 mg PO DAILY Qty: 90 3RF losartan 100 mg tablet 100 mg PO QAM Qty: 90 1RF Eliquis 5 mg tablet 5 mg PO BID Qty: 90 3RF carvedilol 12.5 mg tablet See Rx Instructions .ROUTE .COMPLEX Qty: 180 0RF Dose Instruction: TAKE 1 TABLET BY MOUTH TWICE DAILY Rx Instructions: TAKE 1 TABLET BY MOUTH TWICE DAILY clopidogrel 75 mg tablet See Rx Instructions .ROUTE .COMPLEX Qty: 90 0RF Dose Instruction: TAKE 1 TABLET BY MOUTH EVERY DAY Rx Instructions: TAKE 1 TABLET BY MOUTH EVERY DAY metoclopramide HCl 10 mg tablet 10 mg PO QID PRN (Reason: nausea and vomiting) Qty: 120 1RF bismuth subsalicylate [Pepto-Bismol] 262 mg/15 mL Suspension 524 mg PO Q1H PRN (Reason: Gastrointestinal Spasms Or Cramping) Rx Instructions: do not exceed 8 doses in a 24 hour period cholecalciferol (vitamin D3) [Vitamin D3] 25 mcg (1,000 unit) Tablet 25 mcg PO DAILY polyethylene glycol 3350 [Miralax] 17 gram powder in packet 17 g PO DAILY PRN (Reason: constipation) Qty: 14 0RF multivitamin Tablet 1 tab PO DAILY Lantus U-100 Insulin 100 unit/mL solution 30 unit SUBCUT DAILY oxycodone 5 mg Tablet 5 mg PO Q6H PRN (Reason: Mod to severe pain , 2nd line) Qty: 20 0RF Laxacin 8.6-50 mg tablet 1 tab-cap PO DAILY Qty: 30 0RF bumetanide 2 mg tablet 2 mg PO DAILY Qty: 30 0RF Discharge Orders: Discharge ED (Routine); Ordered 07/17/23 Ordered By: Sami Liu Referrals: Avtar Bruce MD [Primary Care Provider] - Discharge Diet: Usual diet Discharge Activity: Resume usual activity Patient Instructions: Opioid Safety, Pain Management Activity Restrictions/Additional Instructions: Activity Restrictions/Additional Instructions: Thank you for choosing [facility] for your healthcare needs today. Please realize that you were seen in the Emergency Department and that we are providing you with an emergency medical screening exam and this may not be a complete and all inclusive of all the testing and or medical work-up that you may need to determine your ailment or severity of your illness. It is very important that you follow-up as instructed with your Primary care provider or Specialist for additional evaluation and to discuss your medical treatment plan. You may return to the Emergency Department should you have concerns or if your condition changes or worsens in any way. Coding Level of Care Code ED Suction Worker for Sasha Cox
[2023-07-17 12:32] LABS: Glucose Point of Care 122 mg/dL (70-110)
[2023-07-17 12:45] LABS: Basophils % 0.5 %; Eosinophils # 0.4 10^3/uL (0.0-0.8); Eosinophils % 4.4 %; Hematocrit 30.2 % (36-47); Lymphocytes # 1.3 10^3/uL (0.8-4.8); Lymphocytes % 15.8 %; Mean Corpuscular HGB Conc 31.5 g/dL (30-55); Mean Corpuscular Hemoglobin 27.1 pg (27-33); Mean Platelet Volume 8.9 fL (7.4-10.4); Monocytes # 0.6 10^3/uL (0.2-0.9); Monocytes % 6.8 %; Neutrophils # 5.84 10^3/uL (1.8-7.7); Neutrophils % 72.1 %; Nucleated Red Blood Cells % 0 %; Platelet Count 302 10^3/cmm (157-399); Red Blood Count 3.51 10^6/uL (3.85-5.65); Red Cell Distribution Width 13.7 % (12.1-15.1)
[2023-07-17 12:58] LABS: INR 1.26 (0.8-1.2)
[2023-07-17 13:06] LABS: Troponin(5th) Baseline 16 ng/L (0-10)
[2023-07-17] MEDS: cefTRIAXone 2,000 MG in sodium chloride 0.9% (plus) 50 ML 100 MG IV (13:15)
[2023-07-17 13:17] LABS: Alanine Aminotransferase < 5 U/L (0-33); Albumin Level 3.7 g/dL (3.5-5.2); Alkaline Phosphatase 76 U/L (35-105); Anion Gap 12.5 (5-19); Aspartate Amino Transferase 9 U/L (0-32); Blood Urea Nitrogen 16 mg/dL (8-23); Calcium 9.1 mg/dL (8.5-10.5); Carbon Dioxide 28 mmol/L (22-29); Chloride 98 mmol/L (98-107); Globulin 3.1 g/dL (1.3-4.6); Glucose 119 mg/dL (65-115); NT Pro B Type Natriuretic Pept 850 pg/mL (0-125); Osmolality Calculated 280 mOsm/kg (285-295); Potassium 4.5 mmol/L (3.5-5.1); Sodium 134 mmol/L (136-145); Total Bilirubin 0.2 mg/dL (0.15-1.2); Total Protein 6.8 g/dL (6.6-8.7)
[2023-07-17 13:23] VITALS: PULSE 65; RESP 16; O2SAT 97
[2023-07-17] MEDS: ipratropium-albuterol 3 mL Neb INHALATION (13:26)
[2023-07-17 15:14] LABS: Troponin 5 2HR 14.38 ng/L (0-10)
[2023-07-17 15:16] LABS: Troponin 5 2HR Delta -1.62 ABS# (0-10)
== END 2023-07-17 19:28 | disposition home or self-care (01) ==
PROVIDERS: Emergency Provider Internal Medicine; PCP Family Medicine
DX: M94.0 Chondrocostal junction syndrome [Tietze] (principal); J18.9 Pneumonia, unspecified organism; Z79.4 Long term (current) use of insulin; Z79.84 Long term (current) use of oral hypoglycemic drugs; Z79.01 Long term (current) use of anticoagulants; Z79.02 Long term (current) use of antithrombotics/antiplatelets; Z99.81 Dependence on supplemental oxygen; I11.0 Hypertensive heart disease with heart failure; I50.9 Heart failure, unspecified; I25.10 Atherosclerotic heart disease of native coronary artery without angina pectoris; E78.5 Hyperlipidemia, unspecified; E11.9 Type 2 diabetes mellitus without complications
CPT/HCPCS: 36415; 36416; 71045; 80053; 82962; 83880; 84484; 85025; 85610; 93005; 94640; 96374; 99285; J0696

== ENCOUNTER → 2023-11-14 14:05 | Outpatient (BNVA) | payer MEDICAID, SELFPAY | PROVIDERS: PCP Family Medicine; Visit Provider Physician Assistant | DX: Z98.890 Other specified postprocedural states; Z87.81 Personal history of (healed) traumatic fracture | CPT/HCPCS: 73110; 73502; 99213 ==

== ENCOUNTER → 2023-12-28 10:32 | Outpatient (BNVA) | payer MEDICAID, SELFPAY | PROVIDERS: PCP Family Medicine; Visit Provider Student in an Organized Health Care Education/Training Program | DX: Z98.890 Other specified postprocedural states; Z87.81 Personal history of (healed) traumatic fracture; S52.502K Unspecified fracture of the lower end of left radius, subsequent encounter for closed fracture with nonunion; X58.XXXD Exposure to other specified factors, subsequent encounter | CPT/HCPCS: 73110; 73502; 99213 ==

== ENCOUNTER 2024-01-15 17:46 | Inpatient (IN) | payer MEDICAID, SELFPAY ==
[2024-01-15] VITALS (21 sets, daily range): BP systolic 123–172; BP diastolic 61–117; PULSE 9–98; RESP 17–32; TEMP 36.8–36.9; O2SAT 80–99; BMI 366.1
--- NOTE | 2024-01-15 18:08 | XRR_ITS ---
PROCEDURE INFORMATION: Exam: XR Chest Exam date and time: 01/15/2024 6:19 PM Age: 73 years old Clinical indication: Shortness of breath; Additional info: Sog TECHNIQUE: Imaging protocol: Radiologic exam of the chest. Views: 1 view. COMPARISON: CR XR chest 1V portable [id number] 07/17/2023 12:16 PM FINDINGS: Lungs: Pulmonary venous congestion is noted bilaterally. There is left basilar atelectasis along with a small left pleural effusion. Pleural spaces: See Lungs finding. Heart/Mediastinum: Prominent cardiomegaly is noted. Bones/joints: Unremarkable. XR/XR chest 1V portable [id number] IMPRESSION: Mild CHF with left pleural effusion
--- NOTE | 2024-01-15 18:08 | ECG_ITS ---
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 Measurements Intervals Gonzales Rate: 84 P: 65 MS: 177 QRS: -37 QRSD: 87 T: 57 QT: 368 QTc: 436 Interpretive Statements SINUS RHYTHM LOW QRS VOLTAGE IN EXTREMITY LEADS INFERIOR MYOCARDIAL INFARCTION , PROBABLY OLD [40+ ms Q WAVE AND/OR ST/T ABNORMALITY IN II/aVF] ANTEROSEPTAL MYOCARDIAL INFARCTION , PROBABLY OLD [40+ ms Q WAVE IN V1-V4] Compared to ECG 07/17/2023 12:06:05 No significant changes Electronically Signed On 01-16-2024 16:55:28 CDT by Taras Cary M.D. [email or web address]
--- NOTE | 2024-01-15 18:12 | ED_ITS ---
HPI - SOB/Dyspnea 2 General: Chief Complaint: Shortness of Breath/Dyspnea Stated Complaint: SOB Time Seen by Provider: 01/15/24 17:47 Source: patient and EMS Mode of arrival: EMS History of Present Illness: HPI Narrative: 73-year-old female is here with shortnes s of breath. Patient has a history of COPD along with CHF patient lives in nursing homes and typically wears 2 L oxygen there. Patient had to be placed on a nonrebreather here due to her hypoxia she has had increasing cough and work of breathing throughout the day per EMS. Patient also been complaining some chest pain. Denies any fevers. Associated symptoms: Deny abdominal pain, chest pain, fever(s), nausea or vomiting Related Data Home Medications Medication Instructions Recorded Confirmed bismuth subsalicylate 262 mg/15 mL 524 mg PO Q1H PRN Gastrointestinal 10/12/21 12/28/23 oral suspension (Pepto-Bismol) Spasms Or Cramping cholecalciferol (vitamin D3) 25 25 mcg PO DAILY 10/12/21 12/28/23 mcg (1,000 unit) tablet (Vitamin D3) multivitamin 1 tab PO DAILY 05/17/22 12/28/23 acetaminophen 500 mg capsule 1,000 mg PO Q6H PRN Pain 02/01/23 12/28/23 insulin glargine 100 unit/mL 30 unit SUBCUT DAILY 03/22/23 12/28/23 subcutaneous solution (Lantus U-100 Insulin) hydralazine 25 mg tablet 25 mg PO TID 05/18/23 12/28/23 insulin lispro 100 unit/mL 5 unit SUBCUT .sliding scale 05/18/23 12/28/23 subcutaneous pen (Humalog KwikPen (U-100) Insulin) metformin 1,000 mg tablet 1,000 mg PO BID 05/18/23 12/28/23 tramadol 50 mg tablet 50 mg PO BID PRN 05/18/23 12/28/23 oxycodone 5 mg tablet 5 mg PO Q6H PRN Mod to severe pain 12/28/23 , 2nd line sacubitril 49 mg-valsartan 51 mg 1 tab PO BID 12/28/23 12/28/23 tablet (Entresto) Previous Rx's Medication Instructions Recorded blood sugar diagnostic (ReliOn #300 ea 10/05/21 Prime Test Strips) blood sugar diagnostic (OneTouch #100 strips 02/20/22 Ultra Test strips) insulin syringe-needle U-100 1 mL #100 ea 06/21/22 31 gauge x 5/16 (BD Insulin Syringe Ultra-Fine) amlodipine 10 mg tablet 10 mg PO DAILY #90 tabs 07/10/22 polyethylene glycol 3350 17 gram 17 g PO DAILY PRN constipation #14 10/17/22 oral powder packet (Miralax) ea tiotropium bromide 18 mcg capsule 1 cap inhalation DAILY #60 12/20/22 with inhalation device (Spiriva inhalations with HandiHaler) apixaban 5 mg tablet (Eliquis) 5 mg PO BID #90 tabs 03/15/23 losartan 100 mg tablet 100 mg PO QAM #90 tabs 03/15/23 pantoprazole 40 mg tablet,delayed 40 mg PO DAILY for stomach #90 tabs 03/15/23 release bumetanide 2 mg tablet 2 mg PO DAILY #30 tabs 03/27/23 sennosides 8.6 mg-docusate sodium 1 tab-cap PO DAILY #30 tabs 03/27/23 50 mg tablet (Laxacin) carvedilol 12.5 mg tablet See Rx Instructions .Route 04/10/23 .COMPLEX #180 tabs clopidogrel 75 mg tablet See Rx Instructions .Route 04/10/23 .COMPLEX #90 tabs metoclopramide HCl 10 mg tablet 10 mg PO QID PRN nausea and 05/07/23 vomiting #120 tabs left custom volar splint #1 ea 05/18/23 albuterol sulfate 90 mcg/actuation 2 inh inhalation Q6H PRN shortness 07/17/23 aerosol inhaler of breath or wheezing #8.5 grams guaifenesin 1,200 mg tablet, 1,200 mg PO BID #14 tabs 07/17/23 extended release 12 hr Allergies Allergy/AdvReac Type Severity Reaction Status Date / Time codeine Allergy Unknown ADR-Diarrhe Verified 12/28/23 10:58 a tetanus and diphtheria Allergy Unknown Unknown Verified 12/28/23 10:58 toxoids atorvastatin Allergy ADR-Faintin Verified 12/28/23 10:58 g Review of Systems 2 Const: Denies: fever(s), chills, body aches or change in appetite ENMT: Denies: throat pain or dental pain Card: Denies: chest pain Resp: Reports: dyspnea GI: Denies: abdominal pain, nausea, vomiting or diarrhea Musc: Denies: neck pain or back pain Skin/Breast: Denies: rash Neuro: Denies: headache(s) PFSH ED 2 PFSH: Medical History Fracture, intertrochanteric, left femur Left radial head fracture Open fracture of distal ends of both radius and ulna Hearing loss Gastroparesis Orthostasis Supplemental oxygen dependent Failure to thrive in adult Hyperglycemia Anemia Hyponatremia Nausea & vomiting Dilation of pulmonary artery GERD (gastroesophageal reflux disease) Restless leg syndrome Presence of stent in coronary artery in patient with coronary artery disease Heart failure with preserved ejection fraction Altered mental status Diabetes CHF (congestive heart failure) Atherosclerosis of coronary artery Hyperlipidemia Pulmonary embolism DKA (diabetic ketoacidosis) Hypertensive urgency DM type 2 (diabetes mellitus, type 2) Arthritis Asthma HTN (hypertension) Small bowel mass Surgical History Hx of cholecystectomy Family History Other Cancer Stroke Social History Smoking and tobacco/nicotine status: never used tobacco/nicotine Alcohol intake: never Substance/Drug Use: never Lives independently: Yes Household members: none Marital status: / Physical Exam 2 Const: GENERAL APPEARANCE: in distress and ill appearing HENMT: COMMON NORMALS: normocephalic and atraumatic HEAD & SCALP: n ormocephalic and atraumatic Eye: COMMON NORMALS: conjunctivae normal CONJUNCTIVA: Yes conjunctivae normal Neck/C-Spine: COMMON NORMALS: full ROM and supple Chest: COMMONS NORMALS: normal inspection of the chest Resp: COMMON NORMALS: No retractions EFFORT & INSPECTION: Yes tachypneic and Yes respiratory distress AUSCULTATION: rales Cardio: COMMON NORMALS: regular rate, regular rhythm and No murmurs present (Cardio) RATE: regular rate RHYTHM: regular rhythm Extremity: COMMON NORMALS: normal to inspection and full ROM Neuro: COMMON NORMALS: moves all extremities and no focal motor deficits Psych: COMMON NORMALS: mental status grossly normal, Normal thought process present and cooperative THOUGHT PROCESS: Normal thought process present Skin: COMMON NORMALS: no rashes or lesions noted and no wounds GENERAL SKIN EXAM: no rashes or lesions noted Course 2 Vital Signs: Vital signs: Vital Signs Temperature 98.2 F 01/15/24 18:28 Pulse Rate 77 01/15/24 22:00 Respiratory Rate 22 H 01/15/24 22:00 Blood Pressure 160/69 01/15/24 22:00 Pulse Oximetry 96 01/15/24 22:00 Oxygen Delivery Me thod BiPAP 01/15/24 22:00 Oxygen Flow Rate 10 01/15/24 18:07 Fraction of Inspir ed Oxygen 75 01/15/24 18:28 MDM - SOB/Dyspnea Medical Decision Making Patient presents here with increasing shortness of breath I did place her on BiPAP gave her Lasix she is improving here CT does show bilateral pleural effusions with cardiomegaly likely CHF exacerbation no signs of pneumonia I spoke to the hospitalist will admit at this time Medical Records I reviewed the patient's medical records. Lab Data I reviewed the patient's lab results. 01/15/24 18:37 01/15/24 18:37 Labs/Radiology: Radiology Impressions Chest X-Ray 01/15/24 18:08 IMPRESSION: Mild CHF with left pleural effusion Chest CTA 01/15/24 19:34 IMPRESSION: Cardiomegaly with large bilateral pleural effusions Laboratory Results WBC 11.68 10^3/uL (3.29-11.43) H 01/15/24 18:37 RBC 3.60 10^6/uL (3.85-5.65) L 01/15/24 18:37 Hgb 10.10 g/dL (11.27-16.99) L 01/15/24 18:37 Hct 31.3 % (36-47) L 01/15/24 18:37 MCV 86.9 fl (85-98) 01/15/24 18:37 MCH 28.1 pg (27-33) 01/15/24 18:37 MCHC 32.3 g/dL (30-55) 01/15/24 18:37 RDW 13.3 % (12.1-15.1) 01/15/24 18:37 Plt Count 292 10^3/cmm (157-399) 01/15/24 18:37 MPV 9.6 fL (7.4-10.4) 01/15/24 18:37 Neut % (Auto) 86.2 % 01/15/24 18:37 Lymph % (Auto) 6.8 % 01/15/24 18:37 Duval % (Auto) 5.4 % 01/15/24 18:37 Eos % (Auto) 0.7 % 01/15/24 18:37 Baso % (Auto) 0.4 % 01/15/24 18:37 Neut # (Auto) 10.07 10^3/uL (1.8-7.7) H 01/15/24 18:37 Lymph # (Auto) 0.8 10^3/uL (0.8-4.8) 01/15/24 18:37 [place]val # (Auto) 0.6 10^3/uL (0.2-0.9) 01/15/24 18:37 Eos # (Auto) 0.1 10^3/uL (0.0-0.8) 01/15/24 18:37 Baso # (Auto) 0.1 10^3/uL (0.0-0.1) 01/15/24 18:37 Nucleated RBC % (auto) 0 % 01/15/24 18:37 Nucleated RBCs # 0.0 /100WBC 01/15/24 18:37 Specimen Type Arterial 01/15/24 18:17 Sample Site Radial, right 01/15/24 18:17 ABG pH 7.37 (7.35-7.45) 01/15/24 18:17 ABG pCO2 53.3 mmHg (35-45) H 01/15/24 18:17 ABG pO2 121.0 mmHg (80.0-100.0) H 01/15/24 18:17 ABG PO2/FiO2 Ratio 161 01/15/24 18:17 ABG HCO3 30.9 mmol/L (22-26) H 01/15/24 18:17 ABG Base Excess 4.7 mmol/L (-2.0-2.0) H 01/15/24 18:17 Stephen Test Pos 01/15/24 18:17 Hematocrit 31.4 % (37-47) L 01/15/24 18:17 Hgb O2 Saturation 96.5 % (95-100) 01/15/24 18:17 Carboxyhemoglobin 0.7 %THgb (0.4-20.1) 01/15/24 18:17 Methemoglobin 1.3 % (0.4-1.5) 01/15/24 18:17 Total Hemoglobin 10.2 g/dL (12-16) L 01/15/24 18:17 O2 Delivery Device Bipap 01/15/24 18:17 FiO2 75.0 % 01/15/24 18:17 Assembler Insulator ID Cak 01/15/24 18:17 Sodium 137 mmol/L (136-145) 01/15/24 18:37 Potassium 4.4 mmol/L (3.5-5.1) 01/15/24 18:37 Chloride 97 mmol/L (98-107) L 01/15/24 18:37 Carbon Dioxide 30 mmol/L (22-29) H 01/15/24 18:37 Anion Gap 14.4 (5-19) 01/15/24 18:37 BUN 22 mg/dL (8-23) 01/15/24 18:37 Creatinine 0.9 mg/dL (0.5-0.9) 01/15/24 18:37 GFR Calculation Not Reportable 01/15/24 18:37 Glucose 196 mg/dL (65-115) H 01/15/24 18:37 POC Glucose 208 mg/dL (70-110) H 01/15/24 19:36 Calculated Osmolality 293 mOsm/kg (285-295) 01/15/24 18:37 Calcium 8.9 mg/dL (8.5-10.5) 01/15/24 18:37 Total Bilirubin 0.3 mg/dL (0.15-1.2) 01/15/24 18:37 AST 10 U/L (0-32) 01/15/24 18:37 ALT 6 U/L (0-33) 01/15/24 18:37 Alkaline Phosphatase 87 U/L (35-105) 01/15/24 18:37 Troponin T Baseline 19 ng/L (0-10) H 01/15/24 18:37 Troponin T 120 Minute 22.19 ng/L (0-10) H 01/15/24 20:46 Delta Troponin T 3.19 ABS# (0-10) 01/15/24 20:46 NT-Pro-B Natriuret Pep 2191 pg/mL (0-125) H 01/15/24 18:37 Total Protein 6.9 g/dL (6.6-8.7) 01/15/24 18:37 Albumin 3.6 g/dL (3.5-5.2) 01/15/24 18:37 Globulin 3.3 g/dL (1.3-4.6) 01/15/24 18:37 All radiology interpretation(s) finalized by discharge EKG Data EKG 1: I personally reviewed and interpreted this EKG as follows: EKG Interpretation Date: 01/15/24 EKG interpretation time: 17:47 Interpretation: nsr hr [address] elevation qrs 87 qtc 409 Critical Care Time 2 Critical Care Time: Critical Care Time: Yes Total Critical Care Time: 35 Attestation: The high probability of a clinically significant, sudden or life threatening deterioration of the patient's resp system(s) required my full and direct attention, intervention and personal management. The critical care time is as shown. This time is in addition to time spent performing any reported procedures but includes the following: [x] Data and vital sign review and interpretation [x] Patient assessment, examination and intervention [x] Documentation [x] Medication orders and management Discharge Plan Discharge Patient Disposition: Admitted As Inpatient Clinical Impression: Acute exacerbation of CHF (congestive heart failure), Pleural effusion, Acute respiratory failure with hypoxemia Condition: Stable Prescriptions: No Action tiotropium bromide [Spiriva with HandiHaler] 18 mcg capsule, w/inhalation device 1 cap inhalation DAILY Qty: 60 2RF Rx Instructions: puncture 1 cap using device; one dose = 2 inhalations acetaminophen 500 mg capsule 1,000 mg PO Q6H PRN (Reason: Pain) insulin lispro [Humalog KwikPen Insulin] 100 unit/mL insulin pen 5 unit SUBCUT .sliding scale metformin 1,000 mg tablet 1,000 mg PO BID hydralazine 25 mg tablet 25 mg PO TID tramadol 50 mg tablet 50 mg PO BID PRN (DME) left custom volar splint See Rx Instructions .Route .MEDSUPPLY Qty: 1 0RF Rx Instructions: As directed Entresto 49-51 mg tablet 1 tab PO BID oxycodone 5 mg tablet 5 mg PO Q6H PRN (Reason: Mod to severe pain , 2nd line) [place] [place] ReliOn Prime Test Strips Strip See Rx Instructions .Route Qty: 300 3RF Rx Instructions: As directed with Relion meter TID 90 day supply [place] OneTouch Ultra Test Strip See Rx Instructions .ROUTE .COMPLEX Qty: 100 11RF Dose Instruction: DIRECTED, CHECK SUGARS DAILY FASTING AND OCCASIONALLY ONE HOUR POST MEAL INSTEAD OF FASTING E11.9 Rx Instructions: DIRECTED, CHECK SUGARS DAILY FASTING AND OCCASIONALLY ONE HOUR POST MEAL INSTEAD OF FASTING E11.9 [place] insulin syringe-needle U-100 [BD Insulin Syringe Ultra-Fine] 1 mL 31 gauge x 5/16 syringe See Rx Instructions .ROUTE .COMPLEX Qty: 100 3RF Dose Instruction: DIRECTED Rx Instructions: DIRECTED amlodipine 10 mg tablet 10 mg PO DAILY Qty: 90 3RF pantoprazole 40 mg tablet,delayed release (DR/EC) 40 mg PO DAILY Qty: 90 3RF losartan 100 mg tablet 100 mg PO QAM Qty: 90 1RF Eliquis 5 mg tablet 5 mg PO BID Qty: 90 3RF carvedilol 12.5 mg tablet See Rx Instructions .ROUTE .COMPLEX Qty: 180 0RF Dose Instruction: TAKE 1 TABLET BY MOUTH TWICE DAILY Rx Instructions: TAKE 1 TABLET BY MOUTH TWICE DAILY clopidogrel 75 mg tablet See Rx Instructions .ROUTE .COMPLEX Qty: 90 0RF Dose Instruction: TAKE 1 TABLET BY MOUTH EVERY DAY Rx Instructions: TAKE 1 TABLET BY MOUTH EVERY DAY metoclopramide HCl 10 mg tablet 10 mg PO QID PRN (Reason: nausea and vomiting) Qty: 120 1RF bismuth subsalicylate [Pepto-Bismol] 262 mg/15 mL Suspension 524 mg PO Q1H PRN (Reason: Gastrointestinal Spasms Or Cramping) Rx Instructions: do not exceed 8 doses in a 24 hour period cholecalciferol (vitamin D3) [Vitamin D3] 25 mcg (1,000 unit) Tablet 25 mcg PO DAILY polyethylene glycol 3350 [Miralax] 17 gram powder in packet 17 g PO DAILY PRN (Reason: constipation) Qty: 14 0RF multivitamin Tablet 1 tab PO DAILY Lantus U-100 Insulin 100 unit/mL solution 30 unit SUBCUT DAILY Laxacin 8.6-50 mg tablet 1 tab-cap PO DAILY Qty: 30 0RF bumetanide 2 mg tablet 2 mg PO DAILY Qty: 30 0RF guaifenesin 1,200 mg tablet extended release 12hr 1,200 mg PO BID Qty: 14 0RF albuterol sulfate 90 mcg/actuation HFA aerosol inhaler 2 inh inhalation Q6H PRN (Reason: shortness of breath or wheezing) Qty: 8.5 0RF Referrals: Avtar Bruce MD [Primary Care Provider] - Coding Level of Care Code ED [facility] for Sasha Cox
[2024-01-15] MEDS: methylPREDNISolone sod succ 125 mg/2 mL INJ IV (18:13)
[2024-01-15] MEDS: ipratropium 0.5 mg/2.5 mL Neb INHALATION (18:27)
[2024-01-15 18:29] LABS: ABG PCO2 53.3 mmHg (35-45); ABG PH Result 7.37 (7.35-7.45); Arterial Blood Gas Hematocrit 31.4 % (37-47); Base Excess ABG 4.7 mmol/L (-2.0-2.0); Blood Gas Allen Test Pos; Blood Gas Operator Identificat CAK; Blood Gas Sample Site Radial, right; Blood Gas Sample Type Arterial; Carboxyhemoglobin 0.7 %THgb (0.4-20.1); HCO3 ABG 30.9 mmol/L (22-26); HGB O2 Sat 96.5 % (95-100); Methemoglobin 1.3 % (0.4-1.5); Oxygen Device BIPAP; PO2 FiO2 Ratio Arterial Blood 161; Total Hemoglobin 10.2 g/dL (12-16)
[2024-01-15 18:52] LABS: Basophils # 0.1 10^3/uL (0.0-0.1); Basophils % 0.4 %; Eosinophils # 0.1 10^3/uL (0.0-0.8); Eosinophils % 0.7 %; Hematocrit 31.3 % (36-47); Lymphocytes # 0.8 10^3/uL (0.8-4.8); Lymphocytes % 6.8 %; Mean Corpuscular HGB Conc 32.3 g/dL (30-55); Mean Corpuscular Hemoglobin 28.1 pg (27-33); Mean Corpuscular Volume 86.9 fl (85-98); Mean Platelet Volume 9.6 fL (7.4-10.4); Monocytes # 0.6 10^3/uL (0.2-0.9); Monocytes % 5.4 %; Neutrophils # 10.07 10^3/uL (1.8-7.7); Neutrophils % 86.2 %; Nucleated Red Blood Cells % 0 %; Platelet Count 292 10^3/cmm (157-399); Red Cell Distribution Width 13.3 % (12.1-15.1); White Blood Count 11.68 10^3/uL (3.29-11.43)
[2024-01-15 19:00] LABS: Troponin(5th) Baseline 19 ng/L (0-10)
[2024-01-15 19:31] LABS: Alanine Aminotransferase 6 U/L (0-33); Albumin Level 3.6 g/dL (3.5-5.2); Alkaline Phosphatase 87 U/L (35-105); Anion Gap 14.4 (5-19); Aspartate Amino Transferase 10 U/L (0-32); Blood Urea Nitrogen 22 mg/dL (8-23); Calcium 8.9 mg/dL (8.5-10.5); Carbon Dioxide 30 mmol/L (22-29); Chloride 97 mmol/L (98-107); Creatinine Clr Calc Pharmacy 62.8728; Globulin 3.3 g/dL (1.3-4.6); Glucose 196 mg/dL (65-115); NT Pro B Type Natriuretic Pept 2191 pg/mL (0-125); Osmolality Calculated 293 mOsm/kg (285-295); Potassium 4.4 mmol/L (3.5-5.1); Sodium 137 mmol/L (136-145); Total Bilirubin 0.3 mg/dL (0.15-1.2); Total Protein 6.9 g/dL (6.6-8.7)
--- NOTE | 2024-01-15 19:34 | CTR_ITS ---
PROCEDURE INFORMATION: Exam: CTA Chest With Contrast Exam date and time: 01/15/2024 9:36 PM Age: 73 years old Clinical indication: Shortness of breath; Additional info: SOB TECHNIQUE: Imaging protocol: Computed tomographic angiography of the chest with contrast. Exam focused on the arteries. 3D rendering (Not supervised by radiologist): MIP and/or 3D reconstructed images were created by the technologist. Radiation optimization: All CT scans at this facility use at least one of these dose optimization techniques: automated exposure control; mA and/or kV adjustment per patient size (includes targeted exams where dose is matched to clinical indication); or iterative reconstruction. Contrast material: OMNI 350; Contrast volume: 100 ml; Contrast route: INTRAVENOUS (IV); COMPARISON: CT angio chest PE protcl [id number] 12/05/2022 9:36 PM RADIATION DOSE METRICS: Total DLP (mGy-cm): 460.61 FINDINGS: Pulmonary arteries: Normal. No pulmonary emboli. Aorta: Unremarkable. No aortic aneurysm. No aortic dissection. Lungs: See Pleural spaces finding. Pleural spaces: There are large bilateral pleural effusions along with extensive bibasilar atelectasis. I see no lung infiltrate or mass. Heart: Moderate cardiomegaly is noted. Lymph nodes: Unremarkable. No enlarged lymph nodes. Bones/joints: Unremarkable. No acute fracture. Soft tissues: Unremarkable. CT/CT angio chest PE protcl [id number] IMPRESSION: Cardiomegaly with large bilateral pleural effusions
[2024-01-15 19:39] LABS: Glucose Point of Care 208 mg/dL (70-110)
[2024-01-15 21:08] LABS: Troponin 5 2HR 22.19 ng/L (0-10); Troponin 5 2HR Delta 3.19 ABS# (0-10)
[2024-01-15] MEDS: iohexol 350 mg/mL 500 mL Btl (per mL) IV (21:40)
--- NOTE | 2024-01-15 21:49 | ECG_ITS ---
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 Measurements Intervals [place] Rate: 81 P: -10 UT: 164 QRS: -39 QRSD: 86 T: 112 QT: 386 QTc: 450 Interpretive Statements SINUS RHYTHM LOW QRS VOLTAGE IN EXTREMITY LEADS [QRS DEFLECTION < 0.5 mV IN LIMB LEADS] INFERIOR MYOCARDIAL INFARCTION , PROBABLY OLD [40+ ms Q WAVE AND/OR ST/T ABNORMALITY IN II/aVF] ANTEROSEPTAL MYOCARDIAL INFARCTION , PROBABLY OLD [40+ ms Q WAVE IN V1-V4] Compared to ECG 01/15/2024 17:47:55 No significant changes Electronically Signed On 01-16-2024 17:15:08 CDT by Taras Cary M.D. [email or web address]
[2024-01-15] MEDS: FUROsemide 10 mg/mL SDV 10mL 60 MG IVP (22:08)
--- NOTE | 2024-01-15 22:41 | PC.NURSE ---
pt report called to Loni U at 2039.
[2024-01-16] VITALS (20 sets, daily range): BP systolic 149–174; BP diastolic 70–96; PULSE 63–85; RESP 12–30; TEMP 36.8–37.2; O2SAT 88–99
--- NOTE | 2024-01-16 00:08 | ECG_ITS ---
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 Measurements Intervals [place] Rate: 79 P: 79 VT: 173 QRS: -37 QRSD: 92 T: 69 QT: 408 QTc: 468 Interpretive Statements SINUS RHYTHM LOW QRS VOLTAGE IN EXTREMITY LEADS [QRS DEFLECTION < 0.5 mV IN LIMB LEADS] ANTERIOR MYOCARDIAL INFARCTION , PROBABLY OLD [40+ ms Q WAVE AND/OR ST/T ABNORMALITY IN V3/V4] INFERIOR MYOCARDIAL INFARCTION , PROBABLY OLD [40+ ms Q WAVE AND/OR ST/T ABNORMALITY IN II/aVF] Compared to ECG 01/15/2024 21:49:42 No significant changes Electronically Signed On 01-16-2024 17:16:17 CDT by Taras Cary M.D. [email or web address]
[2024-01-16 01:27] LABS: Troponin 5 6HR 19.82 ng/L (0-10); Troponin 5 6HR Delta 0.82 ng/L (0-12)
--- NOTE | 2024-01-16 01:39 | P.HP_ITS ---
Providers/Chief Complaint 2 Admitting Physician: Kee Danielson MD Primary Care Provider: Avtar Bruce MD Chief Complaint: SOB History of Present Illness Lady López is a 73 year old female w/ HTN, HLD, IDDM2, PE in 03/2021, CAD s/p 1 LILIYA to the LAD and 1 LILIYA to the LCx in 05/2021 , chronic HFpEF, admitted March for fall and wrist fracture and sent to SNF. She states for last 1 month has had increasing wt and edema but prior to that was trying to lose some with. Has had orthopnea and leg swelling. She is on 3lpm at SNF but today required 6lpm and bipap Review of Systems 2 Narrative: General patient reports water retention and leg swelling respiratory she has had cough productive of thick white phlegm she does have orthopnea and leg swelling Cardiovascular no chest pain GI positive for some recent diarrhea but she did not have any bowel movements today Medications/Allergies Home Medications Medication Instructions Recorded Confirmed Last Taken Type blood sugar diagnostic (ReliOn #300 ea 10/05/21 12/28/23 Unknown Rx Prime Test Strips) bismuth subsalicylate 262 mg/15 mL 524 mg PO Q1H PRN Gastrointestinal 10/12/21 12/28/23 Unknown History oral suspension (Pepto-Bismol) Spasms Or Cramping cholecalciferol (vitamin D3) 25 25 mcg PO DAILY 10/12/21 12/28/23 02/23/23 History mcg (1,000 unit) tablet (Vitamin D3) blood sugar diagnostic (OneTouch #100 strips 02/20/22 12/28/23 Unknown Rx Ultra Test strips) multivitamin 1 tab PO DAILY 05/17/22 12/28/23 02/23/23 History insulin syringe-needle U-100 1 mL #100 ea 06/21/22 12/28/23 Unknown Rx 31 gauge x 5/16 (BD Insulin Syringe Ultra-Fine) amlodipine 10 mg tablet 10 mg PO DAILY #90 tabs 07/10/22 12/28/23 02/23/23 Rx polyethylene glycol 3350 17 gram 17 g PO DAILY PRN constipation #14 10/17/22 12/28/23 02/22/23 Rx oral powder packet (Miralax) ea tiotropium bromide 18 mcg capsule 1 cap inhalation DAILY #60 12/20/22 12/28/23 02/22/23 Rx with inhalation device (Spiriva inhalations with HandiHaler) acetaminophen 500 mg capsule 1,000 mg PO Q6H PRN Pain 02/01/23 12/28/23 Unknown History apixaban 5 mg tablet (Eliquis) 5 mg PO BID #90 tabs 03/15/23 12/28/23 Unknown Rx losartan 100 mg tablet 100 mg PO QAM #90 tabs 03/15/23 12/28/23 Unknown Rx pantoprazole 40 mg tablet,delayed 40 mg PO DAILY for stomach #90 tabs 03/15/23 12/28/23 Unknown Rx release insulin glargine 100 unit/mL 30 unit SUBCUT DAILY 03/22/23 12/28/23 Unknown History subcutaneous solution (Lantus U-100 Insulin) bumetanide 2 mg tablet 2 mg PO DAILY #30 tabs 03/27/23 12/28/23 Unknown Rx sennosides 8.6 mg-docusate sodium 1 tab-cap PO DAILY #30 tabs 03/27/23 12/28/23 Unknown Rx 50 mg tablet (Laxacin) carvedilol 12.5 mg tablet See Rx Instructions .Route 04/10/23 12/28/23 Unknown Rx .COMPLEX #180 tabs clopidogrel 75 mg tablet See Rx Instructions .Route 04/10/23 12/28/23 Unknown Rx .COMPLEX #90 tabs metoclopramide HCl 10 mg tablet 10 mg PO QID PRN nausea and 05/07/23 12/28/23 Unknown Rx vomiting #120 tabs hydralazine 25 mg tablet 25 mg PO TID 05/18/23 12/28/23 Unknown History insulin lispro 100 unit/mL 5 unit SUBCUT .sliding scale 05/18/23 12/28/23 Unknown History subcutaneous pen (Humalog KwikPen (U-100) Insulin) left custom volar splint #1 ea 05/18/23 12/28/23 Unknown Rx metformin 1,000 mg tablet 1,000 mg PO BID 05/18/23 12/28/23 Unknown History tramadol 50 mg tablet 50 mg PO BID PRN 05/18/23 12/28/23 Unknown History albuterol sulfate 90 mcg/actuation 2 inh inhalation Q6H PRN shortness 07/17/23 12/28/23 Unknown Rx aerosol inhaler of breath or wheezing #8.5 grams guaifenesin 1,200 mg tablet, 1,200 mg PO BID #14 tabs 07/17/23 12/28/23 Unknown Rx extended release 12 hr oxycodone 5 mg tablet 5 mg PO Q6H PRN Mod to severe pain 12/28/23 Unknown History , 2nd line sacubitril 49 mg-valsartan 51 mg 1 tab PO BID 12/28/23 12/28/23 Unknown History tablet (Entresto) Allergies Allergy/AdvReac Type Severity Reaction Status Date / Time codeine Allergy Unknown ADR-Diarrhe Verified 12/28/23 10:58 a tetanus and diphtheria Allergy Unknown Unknown Verified 12/28/23 10:58 toxoids atorvastatin Allergy ADR-Faintin Verified 12/28/23 10:58 g Additional Medication Information EKG shows septal ID age-indeterminate but she had had this chronically since 2022 at least 02/25/2023 Echo The ventricle is poorly seen. The apical view is the only useful view. There is probably normal LV function and size. The ejection fraction is about 55 to 60%. Grade 1 diastolic dysfunction. Structurally normal mitral valve. Mild mitral valve regurgitation. The valve is not well-seen. It appears to be mildly calcified. There may be mild aortic stenosis. Mean gradient 10.7 mmHg, SANJUANA 1.5 cm squared. No obvious aortic insufficiency. Previous study from 06/07/2021 is similar to today's study. Previously noted wall motion disturbances are not noted today, however this is a much poorer quality study. 06/07/2021 Echo 1. Normal left ventricular cavity size. Moderate concentric left ventricular hypertrophy. Left ventricular ejection fraction is estimated at 55 %. There is moderate hypokinesis of basal to mid inferolateral, basal to mid anterolateral, apical septal and apical lateral reeves. Grade II diastolic dysfunction, moderately elevated filling pressures. 2. Normal right ventricular size and systolic function. 3. Mild pulmonary hypertension with pulmonary pressure estimated at 39 mmHg. 4. Mild mitral valve regurgitation. 5. When compared to previous study dated 03/01/2021, there is new regional wall motion abnormality. PFSH Acute 2 PFSH: Medical History (Updated 01/16/24 @ 01:51 by Kee Danielson MD) Atherosclerosis of coronary artery Fracture, intertrochanteric, left femur Left radial head fracture Open fracture of distal ends of both radius and ulna Hearing loss Gastroparesis Orthostasis Supplemental oxygen dependent Failure to thrive in adult Hyperglycemia Anemia Hyponatremia Nausea & vomiting Dilation of pulmonary artery GERD (gastroesophageal reflux disease) Restless leg syndrome Presence of stent in coronary artery in patient with coronary artery disease Heart failure with preserved ejection fraction Altered mental status Diabetes CHF (congestive heart failure) Hyperlipidemia Pulmonary embolism DKA (diabetic ketoacidosis) Hypertensive urgency DM type 2 (diabetes mellitus, type 2) Arthritis Asthma HTN (hypertension) Small bowel mass Surgical History Hx of cholecystectomy Family History Other Cancer Stroke Social History Smoking and tobacco/nicotine status: never used tobacco/nicotine Alcohol intake: never Substance/Drug Use: never Lives independently: Yes Household members: none Marital status: / Vitals/I&O/Wt Last Vital Signs Temp 98.5 F 01/15/24 23:23 Pulse 77 01/16/24 00:35 Resp 20 H 01/15/24 23:23 BP 163/82 01/15/24 23:26 Pulse Ox 97 01/16/24 00:35 O2 Del Method BiPAP 01/15/24 23:23 O2 Flow Rate 10 01/15/24 18:07 FiO2 55 01/16/24 00:35 Weight last 48 hrs Weight 998.266 kg Weight 90.718 kg Physical Exam 2 Narrative: General Well-developed well-nourished female overweight she is on BiPAP but was assisted to the bedside commode and voided 500 cc of light yellow urine no gross hematuria CV regular rate and rhythm Lungs diminished in both bases with crackles heard in the left base Abdomen positive bowel sounds soft obese nontender Calves 2+ bilateral pretibial edema Mood and affect normal Neuro she is alert and oriented to person place date Data 01/15/24 18:37 01/15/24 18:37 A&P Assessment and plan (1) Acute respiratory failure with hypoxemia: Patient is treated with BiPAP. When she is on just oxygen her sats should be maintained around 88 to 90% due to CO2 retention acute hypoxemic respiratory failure upon chronic combined hypoxemic and hypercarbic respiratory failure maintained with nasal cannula O2 at 3 L/min. Condition is worsened due to fluid retention and pleural effusions continue BiPAP and diuresis with daily labs (2) Acute exacerbation of CHF (congestive heart failure): I suspect this is due to dietary and salt indiscretion. Will start a 1400- calorie ADA low-sodium cardiac and diabetic diet. Based on echocardiogram 2021 and 2022 cannot exclude ischemic etiology (3) COPD (chronic obstructive pulmonary disease): See above (4) Atherosclerosis of coronary artery: Repeat troponin in the morning. If rising or not diuresing, will need repeat echocardiogram (5) Pulmonary embolism: Continue apixaban Attestations 2 Medical Necessity Statement*: Patient is admitted to the hospital for diuresis and BiPAP. Anticipate that she will be here greater than 2 midnights Time Spent in Patient Care: 70 minutes spent in evaluation coordinat ion of care for this patient today Coding Level of Care Code 65329 Diagnoses Acute respiratory failure with hypoxemia J96.01 Acute exacerbation of CHF (congestive heart failure) I50.9 COPD (chronic obstructive pulmonary disease) J44.9 Atherosclerosis of coronary artery I25.10 Pulmonary embolism I26.99
--- NOTE | 2024-01-16 02:54 | PC.NURSE ---
pt refused cha hose after about 30 mins of them being on.
[2024-01-16] MEDS: LORazepam 1 mg Tablet PO (03:13)
--- NOTE | 2024-01-16 04:08 | PC.NURSE ---
pt not tolerating bipap. ripped it off along with wanting her cha hose off as well. asked dr for something to calm her. dr gave verbal order.
[2024-01-16 04:49] LABS: Troponin T (5th) Once 20 ng/L (0-10)
[2024-01-16 06:39] LABS: Glucose Point of Care 353 mg/dL (70-110)
--- NOTE | 2024-01-16 09:01 | PC.PHAR ---
patient is from [facility]!! neither pharmacy listed on demographics have filled for her since March 2023 was able to speak to her nurse there and go through and verify all meds
--- NOTE | 2024-01-16 09:43 | USCV_ITS ---
Lady López Age: 73 Gender: F : 1950 Exam Date: 01/16/2024 15:44 Ordering Phys: Troy Gayle MD Technologist: CT Exam Location: [facility] – [place] Indication: BP: 160 / 70 HR: Rhythm: Sinus Technical Quality: Adequate MEASUREMENTS (Male / Female) Normal Values 2D ECHO LVOT Diameter 2.0 cm LV Ejection Fraction MOD 4C 59.7 % LV Ejection Fraction MOD 2C 52.6 % LV Ejection Fraction 2C AL 52.2 % LA Diameter 4.4 cm RA Systolic Volume 4C AL 87.3 ml RA Systolic Volume 4C MOD 83.2 ml LA Sys Volume AL 92.4 cm cubed LA Sys Volume Index AL 43.4 cm cubed/m squared Aorta at Sinotubular Diameter 2.1 cm M-MODE LA Ao Ratio MM 2.1 AV Cusp Separation MM 1.6 cm FINDINGS Left Ventricle Normal left ventricular size, systolic function and wall thickness, with no regional wall motion abnormalities. Estimated LVEF normal 60%. Right Ventricle Increased right ventricular size. Normal right ventricular systolic function. Right Atrium Mildly increased right atrial size. Left Atrium Moderately increased left atrial size. Mitral Valve Aortic Valve Tricuspid Valve Pulmonic Valve Pericardium Aorta Normal size aortic root and proximal ascending aorta. IVC CONCLUSIONS Limited echo to assess LV systolic function. Normal left ventricular size and function with an estimated ejection fraction of 60 %. Increased right ventricle size but with normal right ventricle systolic function. Taras Cary MD (Electronically Signed) Final Date: 16 January 2024 16:31 S
[2024-01-16] MEDS: morphine 4 mg/mL SDV 1 mL 2 MG IVP ×3 (09:51→21:47)
[2024-01-16] MEDS: pantoprazole DR 40 mg Tablet PO (09:52)
[2024-01-16] MEDS: FUROsemide 10 mg/mL SDV 4mL 40 MG IVP ×2 (09:52→18:19)
[2024-01-16] MEDS: amlodipine 10 mg Tablet PO (09:52)
[2024-01-16 09:53] LABS: ABG PH Result 7.38 (7.35-7.45); Alveolar-Arterial Oxygen Gradi 33.7 mmHg (5-10); Arterial Blood Gas Hematocrit 29.5 % (37-47); Base Excess ABG 2.5 mmol/L (-2.0-2.0); Blood Gas Allen Test Pos; Blood Gas Operator Identificat WAPC9; Blood Gas Sample Site Radial, right; Blood Gas Sample Type Arterial; Carboxyhemoglobin 0.6 %THgb (0.4-20.1); Fractionated Inspired Oxygen 58.5 %; HCO3 ABG 28.2 mmol/L (22-26); HGB O2 Sat 95.8 % (95-100); Ionized Calcium Level - ABG 1.2 mmol/L (1.1-1.4); Methemoglobin 1.4 % (0.4-1.5); Oxygen Device BIPAP; Oxygen Saturation ABG 97.7; PO2 ABG 99.7 mmHg (80.0-100.0); PO2 FiO2 Ratio Arterial Blood 171; Potassium Level - ABG 4.1 mmol/L (3.5-5.0); Total Hemoglobin 9.6 g/dL (12-16)
--- NOTE | 2024-01-16 09:56 | PC.CHAP ---
Pastoral Care Encounter/Spiritual Assessment Type of Contact [] Declined forging press operator visit [] Patient/Family/Request visit [] Outpatient visit [] Follow-up visit [] Physician referral [] Code/Alert [x] Routine visit [] Staff referral [] Actively dying [] Patient sleeping [] Family support [] [] Out of room [] Palliative care [] [] Receiving care in room [] Pre-surgical visit [] Trauma [] Long length of stay [] ICU visit [] Other: Relational/Emotional Strength [x] Patient feels connected with others/family/visitors/staff [] Distress [] Loneliness/isolation [] Abandonment Spirituality of Patient [x] Person of Tanja [] Attends Latter Day of their Tanja [x] Believes in Prayer [] Reads Bible or Yazidism materials [] There are Spiritual issues to be addressed Leather Leveler Interventions [x] Prayer [x] Active listening [] Non-anxious presence [x] Spiritual/emotional support [] Crisis/trauma care [] Spiritual counseling [] Bereavement support [] Provided bereavement packet [] Provided Bible/devotional materials [] Provided toy/stuffed animal, coloring book to patient or family member [] Provided Communion [] Anointing/Steger [] Salvation [x] Completed spiritual assessment [] Other: Impact on Illness or Injury [] Angry [] Fearful [] Anxious [] Often cries [] Exhaustion [] Unable to work [] Unable to attend jain [] Unable to walk/stand [] Unable to read [] Unable to drive [] Unable to eat/drink [] Unable to sleep [] Unable to be with family [] Patient intubated [] Other: Summary Time spent with patient 5 min
[2024-01-16] MEDS: carvedilol 12.5 mg Tablet PO ×2 (10:42→17:45)
[2024-01-16] MEDS: clopidogrel 75 mg Tablet PO (10:42)
[2024-01-16] MEDS: insulin glargine 100 units/1 mL 30 UNIT SUBCUT (10:52)
[2024-01-16 11:00] LABS: Basophils % 0.1 %; Hematocrit 28.9 % (36-47); Lymphocytes # 0.3 10^3/uL (0.8-4.8); Lymphocytes % 3.2 %; Mean Corpuscular HGB Conc 32.5 g/dL (30-55); Mean Corpuscular Hemoglobin 28.7 pg (27-33); Mean Corpuscular Volume 88.4 fl (85-98); Mean Platelet Volume 9.8 fL (7.4-10.4); Monocytes # 0.1 10^3/uL (0.2-0.9); Monocytes % 1.6 %; Neutrophils # 8.37 10^3/uL (1.8-7.7); Neutrophils % 94.5 %; Nucleated Red Blood Cells % 0 %; Platelet Count 269 10^3/cmm (157-399); Red Blood Count 3.27 10^6/uL (3.85-5.65); Red Cell Distribution Width 13.5 % (12.1-15.1); White Blood Count 8.85 10^3/uL (3.29-11.43)
[2024-01-16 11:14] LABS: Estmated Average Glucose 137; Hemoglobin A1C 6.4 % (4.0-6.0)
[2024-01-16 11:26] LABS: Glucose Point of Care 357 mg/dL (70-110)
[2024-01-16 11:29] LABS: INR 1.34 (0.8-1.2)
[2024-01-16 11:34] LABS: Procalcitonin 0.09 ng/mL (0-0.5); Thyroid Stimulating Hormone 2.14 uIU/mL (0.27-4.20); Vitamin B12 262 pg/mL (232-1245)
[2024-01-16 11:45] LABS: Alanine Aminotransferase 6 U/L (0-33); Albumin Level 3.2 g/dL (3.5-5.2); Alkaline Phosphatase 79 U/L (35-105); Anion Gap 16.4 (5-19); Aspartate Amino Transferase 8 U/L (0-32); Blood Urea Nitrogen 28 mg/dL (8-23); Calcium 8.3 mg/dL (8.5-10.5); Carbon Dioxide 28 mmol/L (22-29); Chloride 96 mmol/L (98-107); Glucose 385 mg/dL (65-115); Iron 17 ug/dL (37-145); Osmolality Calculated 303 mOsm/kg (285-295); Percent Saturation 7.7 % (20-50); Potassium 4.4 mmol/L (3.5-5.1); Sodium 136 mmol/L (136-145); Total Bilirubin 0.2 mg/dL (0.15-1.2); Total Iron Binding Capacity 220 mcg/dl; Total Protein 6.2 g/dL (6.6-8.7); Unsaturated Iron Binding 203 ug/dL (112-347)
[2024-01-16] MEDS: insulin lispro 100 unit/1 mL SUBCUT ×3 (11:52→20:43)
[2024-01-16 12:37] LABS: PTT 50/50 MIX 28.8 Seconds (23.9-36.7); Partial Thromboplastin Time 34.6 Seconds (23.9-36.7); Prothrombin Time (Patient) 17.1 Seconds (12-15.1)
[2024-01-16 12:38] LABS: PT 50/50 Mix 14.5 Seconds (12.0-15.1)
[2024-01-16 13:23] LABS: Bilirubin Urine Negative (Negative); Blood Urine 3+ (Negative); Glucose Urine UA Negative (Normal); Ketones Urine Negative (Negative); Leukocyte Esterase Urine 2+ (Negative); Nitrate Urine Negative (Negative); Protein Urine 2+ (Negative); Specific Gravity, Urine 1.022 (1.005-1.030); Urine Appearance Cloudy (CLEAR); Urine Color Yellow (Yellow)
[2024-01-16 13:49] LABS: UA Manual Slide Review YES; UA Slide Review UA Slide Review Perf
[2024-01-16 13:51] LABS: Add Urine Culture? Yes; Add Urine Microscopic? YES; Bacteria Urine 3+ /hpf; Mucus Urine 1+ /hpf; RBC Urine 25-40 /hpf (0-2); Transitional Epi Cells Urine 0-4 /hpf; WBC Urine >100 /hpf (0-5)
[2024-01-16 15:10] LABS: Adenovirus Not Detected (NOT DETECT); Chlamydia Pneumoniae Not Detected (NOT DETECT); Coronavirus 229E,HKU1,NL63,OC4 Not Detected (NOT DETECT); Human Metapneumovirus Not Detected (NOT DETECT); Human Rhinovirus/Enterovirus Detected (NOT DETECT); Influenza A Not Detected (NOT DETECT); Influenza A H1 Not Detected (NOT DETECT); Influenza A H1-2009 Not Detected (NOT DETECT); Influenza A H3 Not Detected (NOT DETECT); Influenza B Not Detected (NOT DETECT); Mycoplasma Pneumoniae Not Detected (NOT DETECT); Parainfluenza Virus Type 1 Not Detected (NOT DETECT); Parainfluenza Virus Type 2 Not Detected (NOT DETECT); Parainfluenza Virus Type 3 Not Detected (NOT DETECT); Parainfluenza Virus Type 4 Not Detected (NOT DETECT); Respiratory Syncytial Virus A Not Detected (NOT DETECT); Respiratory Syncytial Virus B Not Detected (NOT DETECT); SARS-COV-2 Not Detected (NOT DETECT)
[2024-01-16] MEDS: cefTRIAXone 1,000 mg SDV 1000 MG IVP (15:19)
[2024-01-16 17:07] LABS: Glucose Point of Care 258 mg/dL (70-110)
[2024-01-16] MEDS: sacubitril/valsartan 24-26 mg Tablet 2 EACH PO (17:44)
[2024-01-16] MEDS: guaiFENesin 600 mg Tablet 1200 MG PO (17:45)
--- NOTE | 2024-01-16 18:00 | P.PN_ITS ---
Subjective 2 Subjective: Admitted overnight. On examination today patient on BiPAP, somnolent but wakes up to verbal stimulus and able to have conversation. Complaining of mild chest pain. Has remained hemodynamically stable. Around 400 cc urine output after receiving Lasix at night. Otherwise has remained hemodynamically stable and afebrile. Blood pressure slightly elevated. Medications: Medication Review Details: EKG shows septal LA age-indeterminate but she had had this chronically since 2022 at least 02/25/2023 Echo The ventricle is poorly seen. The apical view is the only useful view. There is probably normal LV function and size. The ejection fraction is about 55 to 60%. Grade 1 diastolic dysfunction. Structurally normal mitral valve. Mild mitral valve regurgitation. The valve is not well-seen. It appears to be mildly calcified. There may be mild aortic stenosis. Mean gradient 10.7 mmHg, SANJUANA 1.5 cm squared. No obvious aortic insufficiency. Previous study from 06/07/2021 is similar to today's study. Previously noted wall motion disturbances are not noted today, however this is a much poorer quality study. Vitals/I&O/Wt Last Vital Signs Temp 98.7 F 01/16/24 16:00 Pulse 76 01/16/24 17:06 Resp 20 H 01/16/24 16:29 BP 165/83 01/16/24 16:00 Pulse Ox 93 01/16/24 17:06 O2 Del Method BiPAP 01/16/24 16:00 O2 Flow Rate 40 01/16/24 17:06 FiO2 55 01/16/24 17:06 01/16/24 01/16/24 01/16/24 06:59 14:59 22:59 Intake Total 480 / 480 240 / 240 Output Total 900 / 900 Balance -420 / -420 240 / 240 Weight last 48 hrs Weight 99.082 kg Weight 98.248 kg Weight 998.266 kg Weight 90.718 kg Physical Exam 2 Narrative: General: No acute distress, on BiPAP, chronically sick appearing HEENT: PERRLA, pupils bilaterally equal and reactive Chest: Bronchial breath sounds all lung wong with decreased air entry bilaterally lower zone Cardiac: S1-S2 regular, no tachycardia, soft pansystolic murmur at apex, no gallop no rubs Abdomen: Soft, nontender, no organomegaly, bowel sounds present Neuro: No focal deficits, no facial deformity, AO x3, power 5/5 in all limbs Urinary Catheter Management: Mathew: Cath Placed During This Visit: yes Urinary Catheter Date of Insertion: 01/16/24 Urinary Catheter Time of Insertion: 09:30 Data 01/16/24 10:46 01/16/24 10:46 A&P Assessment and plan (1) Acute respiratory failure with hypoxemia: Most likely in setting of diastolic heart failure along with bilateral significant pleural effusion and COPD exacerbation. Low concerns for pneumonia for now. Appreciate CTA done in the ER. Negative for PE or consolidation. Oxygen supplementation keeping saturation over 90%. Can try off BiPAP later in the evening today and transition to heated high flow. Repeat ABG to monitor for hypercapnia. (2) Acute exacerbation of CHF (congestive heart failure): Aggressive diuresis with 40 mg IV Lasix every 12 hourly. Mathew catheter. Fluid restriction to 1500 cc. Strict input output charting, daily weights. High concerns for diastolic heart failure. Repeat Limited echocardiogram. Last echocardiogram done February 2023 showed grade 1 diastolic dysfunction with EF 55 to 60%, mild aortic stenosis. (3) COPD (chronic obstructive pulmonary disease): Start on Pulmicort twice daily, DuoNeb every 6 hour. Solu-Medrol 40 mg every 8 hourly. (4) Atherosclerosis of coronary artery: Appreciate troponin cycled. Low concern for CAD for now. Echocardiogram as above. Check A1c, lipid panel. Aspirin 81 mg daily. (5) Pulmonary embolism: Continue apixaban. No pulmonary embolism on current CTA. Plan Hypertension: Goal blood pressure less than 140/90 mmHg. For now continue with home dose of Coreg, Entresto. Holding off on home dose of losartan. Will uptitrate as for goal blood pressure. UTI: History of UTI with Klebsiella in the past. Check urinalysis and follow-up urine culture. For now start patient on IV ceftriaxone 1 g daily. Bilateral pleural effusion: Definitely playing in part for respiratory failure. Will plan for thoracentesis. Hold off on Eliquis for now. Carb consistent diet Holding off on Eliquis for thoracentesis Protonix for PUD prophylaxis Attestations 2 Medical Necessity Statement*: Requires further hospitalization for management of hypoxic respiratory failure in setting of diastolic heart failure, bilateral significant pleural effusion, COPD exacerbation, UTI Diagnoses Acute respiratory failure with hypoxemia J96.01 Acute exacerbation of CHF (congestive heart failure) I50.9 COPD (chronic obstructive pulmonary disease) J44.9 Atherosclerosis of coronary artery I25.10 Pulmonary embolism I26.99
--- NOTE | 2024-01-16 18:08 | ECG_ITS ---
[employer] Test Date: 2024-01-16 Pat Name: Lady López Department: Room: 108 Gender: Female Medical Records Field Technician: : 1950 Requested By: Troy Gayle Order Number: [id number] Kelby MD: Taras Cary M.D. Measurements Intervals [place] Rate: 72 P: 72 CA: 175 QRS: -18 QRSD: 85 T: 56 QT: 415 QTc: 457 Interpretive Statements SINUS RHYTHM LOW QRS VOLTAGE IN EXTREMITY LEADS INFERIOR MYOCARDIAL INFARCTION , PROBABLY OLD ANTEROLATERAL MYOCARDIAL INFARCTION , PROBABLY OLD Compared to ECG 01/16/2024 03:43:01 No significant changes Electronically Signed On 01-16-2024 18:11:51 CDT by Taras Cary M.D. [email or web address]
[2024-01-16] MEDS: methylPREDNISolone sod succ 40 mg/mL INJ IVP (18:19)
[2024-01-16 20:25] LABS: Glucose Point of Care 277 mg/dL (70-110)
[2024-01-16] MEDS: acetaminophen 325 mg Tablet 650 MG PO (21:07)
[2024-01-16] MEDS: budesonide 0.5 mg/2 mL Neb INHALATION (21:34)
[2024-01-16] MEDS: ipratropium-albuterol 3 mL Neb INHALATION (21:35)
[2024-01-17] VITALS (21 sets, daily range): BP systolic 149–170; BP diastolic 56–101; PULSE 69–91; RESP 16–26; TEMP 36.6–37.1; O2SAT 83–98
[2024-01-17] MEDS: methylPREDNISolone sod succ 40 mg/mL INJ IVP ×3 (01:47→19:33)
[2024-01-17] MEDS: ipratropium-albuterol 3 mL Neb INHALATION ×4 (02:00→20:31)
[2024-01-17] MEDS: morphine 4 mg/mL SDV 1 mL 2 MG IVP ×4 (02:24→23:22)
[2024-01-17] MEDS: acetaminophen 325 mg Tablet 650 MG PO ×2 (03:18→22:44)
[2024-01-17 03:53] LABS: Basophils % 0.1 %; Hematocrit 30.4 % (36-47); Lymphocytes # 0.5 10^3/uL (0.8-4.8); Lymphocytes % 3.3 %; Mean Corpuscular HGB Conc 32.6 g/dL (30-55); Mean Corpuscular Hemoglobin 28.2 pg (27-33); Mean Corpuscular Volume 86.6 fl (85-98); Mean Platelet Volume 9.8 fL (7.4-10.4); Monocytes # 0.2 10^3/uL (0.2-0.9); Monocytes % 1.5 %; Neutrophils # 13.55 10^3/uL (1.8-7.7); Neutrophils % 94.6 %; Nucleated Red Blood Cells % 0 %; Platelet Count 335 10^3/cmm (157-399); Red Blood Count 3.51 10^6/uL (3.85-5.65); Red Cell Distribution Width 13.5 % (12.1-15.1); White Blood Count 14.33 10^3/uL (3.29-11.43)
[2024-01-17 04:29] LABS: Folate Level 10.1 ng/mL (4.8-37.3)
[2024-01-17 04:32] LABS: Alanine Aminotransferase 6 U/L (0-33); Albumin Level 3.5 g/dL (3.5-5.2); Alkaline Phosphatase 84 U/L (35-105); Anion Gap 15.3 (5-19); Aspartate Amino Transferase 10 U/L (0-32); Blood Urea Nitrogen 34 mg/dL (8-23); Calcium 8.3 mg/dL (8.5-10.5); Carbon Dioxide 30 mmol/L (22-29); Chloride 97 mmol/L (98-107); Chol HDL Ratio 3.78 mg/dL (0.0-4.40); Cholesterol 242 mg/dL (0-200); Creatinine Clr Calc Pharmacy 59.2713; Globulin 3.5 g/dL (1.3-4.6); Glucose 201 mg/dL (65-115); HDL Cholesterol 64 mg/dL (60-100); LDL Cholesterol Calculated 163 mg/dL (50-129); Osmolality Calculated 299 mOsm/kg (285-295); Potassium 4.3 mmol/L (3.5-5.1); Sodium 138 mmol/L (136-145); Total Bilirubin 0.3 mg/dL (0.15-1.2); Triglycerides 75 mg/dL (0-150); VLDL Cholestrol Calculation 15 mg/dL (0-30)
[2024-01-17 04:35] LABS: Magnesium 1.9 mg/dL (1.7-2.3); Phosphorus 4.2 mg/dL (2.5-4.5)
--- NOTE | 2024-01-17 06:00 | US_ITS ---
WS: [id number] ULTRASOUND-GUIDED THORACENTESIS CLINICAL INFORMATION: resp failure COMPARISON: CTA chest 01/15/2024 reviewed PROCEDURE: Informed consent: The risks, benefits, and alternatives of the procedure were discussed with the mylene ent. Verbal and written consent was obtained. Timeout: A timeout was performed to confirm the correct patient, procedure, and site. Site: LEFT chest Preparation: A suitable skin site was identified. The patient was prepped and draped in usual sterile fashion. Lidocaine 1% was used for local anesthesia. Catheter: 4 Turkish One-Step catheter. Fluid Volume: 900 ml Color: Bloody serous Complications: No pneumothorax on the post thoracentesis radiograph. / thoracentesis [id number] IMPRESSION: 1. Uncomplicated ultrasound-guided LEFT thoracentesis. 2. Removal of 900 cc bloody serous fluid 3. No pneumothorax on postthoracentesis radiograph
[2024-01-17 06:18] LABS: Glucose Point of Care 233 mg/dL (70-110)
[2024-01-17] MEDS: budesonide 0.5 mg/2 mL Neb INHALATION ×2 (07:45→20:31)
[2024-01-17] MEDS: guaiFENesin 600 mg Tablet 1200 MG PO ×2 (09:28→17:57)
[2024-01-17] MEDS: insulin lispro 100 unit/1 mL SUBCUT ×4 (09:28→21:23)
[2024-01-17] MEDS: FUROsemide 10 mg/mL SDV 4mL 40 MG IVP ×2 (09:28→17:58)
[2024-01-17] MEDS: sacubitril/valsartan 24-26 mg Tablet 2 EACH PO ×2 (10:14→17:57)
[2024-01-17] MEDS: pantoprazole DR 40 mg Tablet PO (10:15)
[2024-01-17] MEDS: carvedilol 12.5 mg Tablet PO ×2 (10:15→17:57)
[2024-01-17] MEDS: amlodipine 10 mg Tablet PO (10:15)
[2024-01-17] MEDS: insulin glargine 100 units/1 mL 30 UNIT SUBCUT (10:57)
[2024-01-17 12:29] LABS: Glucose Point of Care 262 mg/dL (70-110)
--- NOTE | 2024-01-17 13:49 | P.PN_ITS ---
Subjective 2 Subjective: patient reports that she is still short of breath. She is scheduled to have a thoracentesis this afternoon. Denies other problems at this time. Medications: Reviewed: Yes Vitals/I&O/Wt Last Vital Signs Temp 98.2 F 01/17/24 11:56 Pulse 70 01/17/24 11:56 Resp 20 H 01/17/24 11:56 BP 154/85 01/17/24 11:43 Pulse Ox 95 01/17/24 11:56 O2 Del Method Heated High Flow 01/17/24 11:56 O2 Flow Rate 50 01/17/24 11:43 FiO2 65 01/17/24 11:22 01/16/24 01/17/24 01/17/24 22:59 06:59 14:59 Intake Total 120 / 360 356 / 356 Output Total 650 / 650 600 / 1250 600 / 600 Balance -530 / -290 -600 / -890 -244 / -244 Weight last 48 hrs Weight 218 lb 7 oz Weight 218 lb 7 oz Weight 216 lb 9.6 oz Weight 2200 lb 12.8 oz Weight 200 lb Physical Exam 2 Narrative: General: Cooperative patient, ill appearing. HEENT: Normocephalic, Atraumatic. External ears normal. Nasal passages patent without drainage. Wearing high flow cannula. MMM. Heart: RRR. Resp: Diminished lung sounds with fine rales throughout the lung wong. Mild wheezes in the upper airways. Abd: Soft, non-tender. Non-distended. Extremities: 1+LE edema. Urinary Catheter Management: Mathew: Cath Placed During This Visit: yes Reason for Continuing Indwelling Catheter: Acute Urinary Retention or Obstruction Urinary Catheter Date of Insertion: 01/16/24 Urinary Catheter Time of Insertion: 09:30 Data 01/17/24 03:17 01/17/24 03:17 Micro: Microbiology 01/16/24 13:00 Urine Culture - Preliminary Urine,Clean Catch Gram Negative Rods 01/16/24 20:30 Blood Culture - Preliminary Blood SPECIMEN COLLECTED 01/16/24 20:20 Blood Culture - Preliminary Blood SPECIMEN COLLECTED A&P Assessment and plan (1) Acute respiratory failure with hypoxemia: Most likely in setting of diastolic heart failure along with bilateral significant pleural effusion and COPD exacerbation. Low concerns for pneumonia for now. Appreciate CTA done in the ER. Negative for PE or consolidation. Oxygen supplementation keeping saturation over 90%. Can try off BiPAP later in the evening today and transition to heated high flow. Repeat ABG to monitor for hypercapnia. (2) Acute exacerbation of CHF (congestive heart failure): Aggressive diuresis with 40 mg IV Lasix every 12 hourly. Mathew catheter. Fluid restriction to 1500 cc. Strict input output charting, daily weights. High concerns for diastolic heart failure. Repeat Limited echocardiogram. Last echocardiogram done February 2023 showed grade 1 diastolic dysfunction with EF 55 to 60%, mild aortic stenosis. (3) COPD (chronic obstructive pulmonary disease): Start on Pulmicort twice daily, DuoNeb every 6 hour. Solu-Medrol 40 mg every 8 hourly. (4) Atherosclerosis of coronary artery: Appreciate troponin cycled. Low concern for CAD for now. Echocardiogram as above. Check A1c, lipid panel. Aspirin 81 mg daily. (5) Pulmonary embolism: Continue apixaban. No pulmonary embolism on current CTA. Plan Continue close inpatient monitoring. Continue to maintain BP less than 140/90 mmHg. For now continue with home dose of Coreg, Entresto. Plan for thoracentesis this afternoon. Currently holding Eliquis in anticipation of that. UTI: History of UTI with Klebsiella in the past. Check urinalysis and follow-up urine culture. Continue IV ceftriaxone 1 g daily. Will adjust therapy based on susceptibilities. Code Status: Full code IVF: none DVT PPx: Eliquis, currently holding due to planned thoracentesis. GI PPx: protonix ABx: Ceftriaxone Diet: CC Discharge plan: TBD. Attestations 2 Medical Necessity Statement*: Requires further hospitalization for management of hypoxic respiratory failure in setting of diastolic heart failure, bilateral significant pleural effusion, COPD exacerbation, UTI Coding Level of Care Code Acute Code for Chg Fwd Moderate MDM includes number and complexity of problems actively addressed during encounter, amount and/or complexity of data reviewed/ordered and described risk of complication, morbidity or mortality of management as documented Diagnoses Acute respiratory failure with hypoxemia J96.01 Acute exacerbation of CHF (congestive heart failure) I50.9 COPD (chronic obstructive pulmonary disease) J44.9 Atherosclerosis of coronary artery I25.10 Pulmonary embolism I26.99
--- NOTE | 2024-01-17 14:45 | XR_ITS ---
WS: [id number] CHEST XRAY TECHNIQUE: Portable chest. CLINICAL INFORMATION: post thoracentesis COMPARISON: 01/15/2024 FINDINGS: Heart: Cardiomegaly. Aortic calcification. Lungs: Improved LEFT pleural effusion postthoracentesis. No significant LEFT pleural fluid. Improved aeration LEFT lung. Slight Mer LEFT lower lobe. Persistent RIGHT pleural effusion with mild pulmon alayna vascular congestion. Bones: Osteopenia. Hypertrophic changes thoracic spine. XR/XR chest 1V portable [id number] IMPRESSION: Improved LEFT pleural effusion postthoracentesis. No visualized pneumothorax.
[2024-01-17] MEDS: cefTRIAXone 1,000 mg SDV 1000 MG IVP (15:57)
[2024-01-17] MEDS: clopidogrel 75 mg Tablet PO (15:57)
[2024-01-17 17:02] LABS: Glucose Point of Care 325 mg/dL (70-110)
--- NOTE | 2024-01-17 20:21 | PC.NURSE ---
Spoke with regarding patient complaints of restless leg not being helped with prn tylenol or morphine. The patient is requesting something else for this. Dr. Danielson ordered pramipexole at bedtime for patient.
[2024-01-17 20:55] LABS: Glucose Point of Care 320 mg/dL (70-110)
[2024-01-17] MEDS: pramipexole 0.25 mg Tablet PO (21:24)
[2024-01-18] VITALS (17 sets, daily range): BP systolic 152–176; BP diastolic 66–78; PULSE 66–80; RESP 17–24; TEMP 36.6–37.1; O2SAT 90–100
[2024-01-18] MEDS: ipratropium-albuterol 3 mL Neb INHALATION ×4 (01:19→20:39)
[2024-01-18 02:02] LABS: Glucose Point of Care 166 mg/dL (70-110)
[2024-01-18] MEDS: methylPREDNISolone sod succ 40 mg/mL INJ IVP ×3 (02:19→17:48)
[2024-01-18] MEDS: ondansetron 2 mg/ML SDV 2 mL 4 MG IVP (02:19)
[2024-01-18 04:43] LABS: Basophils % 0.1 %; Eosinophils # 0.1 10^3/uL (0.0-0.8); Eosinophils % 0.5 %; Hematocrit 29.8 % (36-47); Lymphocytes # 0.4 10^3/uL (0.8-4.8); Lymphocytes % 4.2 %; Mean Corpuscular HGB Conc 31.9 g/dL (30-55); Mean Corpuscular Hemoglobin 28.4 pg (27-33); Mean Corpuscular Volume 89.2 fl (85-98); Mean Platelet Volume 9.2 fL (7.4-10.4); Monocytes # 0.2 10^3/uL (0.2-0.9); Monocytes % 1.4 %; Neutrophils # 9.65 10^3/uL (1.8-7.7); Neutrophils % 93.1 %; Nucleated Red Blood Cells % 0 %; Platelet Count 304 10^3/cmm (157-399); Red Blood Count 3.34 10^6/uL (3.85-5.65); Red Cell Distribution Width 13.6 % (12.1-15.1); White Blood Count 10.37 10^3/uL (3.29-11.43)
[2024-01-18] MEDS: morphine 4 mg/mL SDV 1 mL 2 MG IVP (04:59)
[2024-01-18 05:04] LABS: Alanine Aminotransferase < 5 U/L (0-33); Albumin Level 3.3 g/dL (3.5-5.2); Alkaline Phosphatase 68 U/L (35-105); Aspartate Amino Transferase 9 U/L (0-32); Blood Urea Nitrogen 39 mg/dL (8-23); C Reactive Protein 25.1 mg/L (0.0-4.9); Calcium 7.8 mg/dL (8.5-10.5); Carbon Dioxide 30 mmol/L (22-29); Chloride 98 mmol/L (98-107); Globulin 2.7 g/dL (1.3-4.6); Glucose 203 mg/dL (65-115); Osmolality Calculated 301 mOsm/kg (285-295); Sodium 138 mmol/L (136-145); Total Bilirubin 0.2 mg/dL (0.15-1.2)
[2024-01-18 06:38] LABS: Glucose Point of Care 233 mg/dL (70-110)
[2024-01-18] MEDS: carvedilol 12.5 mg Tablet PO ×2 (08:11→17:49)
[2024-01-18] MEDS: amlodipine 10 mg Tablet PO (08:11)
[2024-01-18] MEDS: FUROsemide 10 mg/mL SDV 4mL 40 MG IVP ×2 (08:11→17:48)
[2024-01-18] MEDS: pantoprazole DR 40 mg Tablet PO (08:11)
[2024-01-18] MEDS: sacubitril/valsartan 24-26 mg Tablet 2 EACH PO ×2 (08:11→17:49)
[2024-01-18] MEDS: guaiFENesin 600 mg Tablet 1200 MG PO ×2 (08:12→17:49)
[2024-01-18] MEDS: clopidogrel 75 mg Tablet PO (08:12)
[2024-01-18] MEDS: insulin lispro 100 unit/1 mL SUBCUT ×4 (08:13→20:51)
[2024-01-18] MEDS: insulin glargine 100 units/1 mL 30 UNIT SUBCUT (08:15)
[2024-01-18] MEDS: budesonide 0.5 mg/2 mL Neb INHALATION ×2 (09:01→20:39)
[2024-01-18] MEDS: acetaminophen 325 mg Tablet 650 MG PO (10:24)
[2024-01-18 11:45] LABS: Glucose Point of Care 311 mg/dL (70-110)
[2024-01-18] MEDS: cefTRIAXone 1,000 mg SDV 1000 MG IVP (14:54)
--- NOTE | 2024-01-18 16:46 | P.PN_ITS ---
Subjective 2 Subjective: Patient says she is feeling a little better today. She did have her thoracentesis yesterday and says that they pulled a lot of fluid off. She says that her breathing has improved some, but she is still short of breath when she gets up and moves around. Medications: Reviewed: Yes Vitals/I&O/Wt Last Vital Signs Temp 97.8 F 01/18/24 16:00 Pulse 69 01/18/24 16:00 Resp 20 H 01/18/24 16:00 BP 158/66 01/18/24 16:00 Pulse Ox 96 01/18/24 16:00 O2 Del Method Heated High Flow 01/18/24 16:00 O2 Flow Rate 40 01/18/24 13:36 FiO2 45 01/18/24 13:36 01/18/24 01/18/24 01/18/24 06:59 14:59 22:59 Intake Total 100 / 896 580 / 580 Output Total 600 / 2750 700 / 700 Balance -500 / -1854 -120 / -120 Weight last 48 hrs Weight 218 lb 7 oz Weight 218 lb 7 oz Weight 218 lb 7 oz Physical Exam 2 Narrative: General: Cooperative patient, ill appearing. HEENT: Normocephalic, Atraumatic. External ears normal. Nasal passages patent without drainage. Wearing high flow cannula. MMM. Heart: RRR. Resp: Diminished lung sounds with fine rales throughout the lung wong. Mild wheezes in the upper airways. Abd: Soft, non-tender. Non-distended. Extremities: 1+LE edema. Urinary Catheter Management: Mathew: Cath Placed During This Visit: yes Reason for Continuing Indwelling Catheter: Acute Urinary Retention or Obstruction Urinary Catheter Date of Insertion: 01/16/24 Urinary Catheter Time of Insertion: 09:30 Data 01/18/24 04:32 01/18/24 04:32 Micro: Microbiology 01/16/24 13:00 Urine Culture - Final Urine,Clean Catch Klebsiella pneumoniae 01/16/24 20:30 Blood Culture - Preliminary Blood NEGATIVE TO DATE 01/16/24 20:20 Blood Culture - Preliminary Blood NEGATIVE TO DATE A&P Assessment and plan (1) Acute respiratory failure with hypoxemia: (2) Acute exacerbation of CHF (congestive heart failure): (3) COPD (chronic obstructive pulmonary disease): (4) Atherosclerosis of coronary artery: (5) Pulmonary embolism: Plan Continue close inpatient monitoring. Continue to maintain BP less than 140/90 mmHg. For now continue with home dose of Coreg, Entresto. Aspirin 81 mg daily. Continue apixaban. No PE seen on CTA. Thoracentesis was performed yesterday. Breathing improved today. Currently holding Eliquis in anticipation of that. For now we will continue with Solu-Medrol, DuoNebs, Pulmicort. Will decrease steroids to every 12 hours. UTI: History of UTI with Klebsiella in the past. Check urinalysis and follow-up urine culture. Continue IV ceftriaxone 1 g daily. Susceptibilities are available and organism is susceptible to ceftriaxone. Blood cultures remain negative today. Continue to wean down on oxygen. Continue Lantus and sliding scale insulin for diabetes. Sugars have been elevated which is likely from steroids. Continue other medications for chronic medical. Code Status: Full code IVF: none DVT PPx: Eliquis, currently holding due to planned thoracentesis. GI PPx: protonix ABx: Ceftriaxone Diet: CC Discharge plan: TBD. Attestations 2 Medical Necessity Statement*: Requires further hospitalization for management of hypoxic respiratory failure in setting of diastolic heart failure, bilateral significant pleural effusion, COPD exacerbation, UTI Coding Level of Care Code Acute Code for Chg Fwd Moderate MDM includes number and complexity of problems actively addressed during encounter, amount and/or complexity of data reviewed/ordered and described risk of complication, morbidity or mortality of management as documented Diagnoses Acute respiratory failure with hypoxemia J96.01 Acute exacerbation of CHF (congestive heart failure) I50.9 COPD (chronic obstructive pulmonary disease) J44.9 Atherosclerosis of coronary artery I25.10 Pulmonary embolism I26.99
[2024-01-18 17:06] LABS: Glucose Point of Care 343 mg/dL (70-110)
[2024-01-18 20:17] LABS: Glucose Point of Care 381 mg/dL (70-110)
[2024-01-18] MEDS: pramipexole 0.25 mg Tablet PO (20:52)
[2024-01-19] VITALS (21 sets, daily range): BP systolic 148–180; BP diastolic 74–114; PULSE 65–82; RESP 16–26; TEMP 36.6–36.9; O2SAT 90–100; BMI 35.8
[2024-01-19] MEDS: zolpidem 5 mg Tablet PO ×2 (00:47→20:56)
[2024-01-19] MEDS: ipratropium-albuterol 3 mL Neb INHALATION ×4 (02:21→20:49)
[2024-01-19] MEDS: methylPREDNISolone sod succ 40 mg/mL INJ IVP (04:53)
[2024-01-19 05:22] LABS: Magnesium 2.2 mg/dL (1.7-2.3)
[2024-01-19 06:13] LABS: Glucose Point of Care 201 mg/dL (70-110)
[2024-01-19] MEDS: insulin lispro 100 unit/1 mL SUBCUT ×4 (08:25→20:56)
[2024-01-19] MEDS: pantoprazole DR 40 mg Tablet PO (08:25)
[2024-01-19] MEDS: insulin glargine 100 units/1 mL 30 UNIT SUBCUT (08:25)
[2024-01-19] MEDS: carvedilol 12.5 mg Tablet PO ×2 (08:25→17:57)
[2024-01-19] MEDS: guaiFENesin 600 mg Tablet 1200 MG PO ×2 (08:25→17:57)
[2024-01-19] MEDS: sacubitril/valsartan 24-26 mg Tablet 2 EACH PO ×2 (08:25→17:57)
[2024-01-19] MEDS: amlodipine 10 mg Tablet PO (08:26)
[2024-01-19] MEDS: FUROsemide 10 mg/mL SDV 4mL 40 MG IVP ×2 (08:26→17:57)
[2024-01-19] MEDS: clopidogrel 75 mg Tablet PO (08:26)
[2024-01-19] MEDS: budesonide 0.5 mg/2 mL Neb INHALATION ×2 (08:31→20:49)
[2024-01-19] MEDS: morphine 4 mg/mL SDV 1 mL 2 MG IVP (09:29)
--- NOTE | 2024-01-19 09:31 | ECG_ITS ---
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 Measurements Intervals [place] Rate: 81 P: 64 [place]: 162 QRS: -50 QRSD: 93 T: 55 QT: 372 QTc: 434 Interpretive Statements SINUS RHYTHM LEFT ANTERIOR FASCICULAR BLOCK INFERIOR MYOCARDIAL INFARCTION , PROBABLY OLD ANTEROLATERAL MYOCARDIAL INFARCTION , PROBABLY OLD Compared to last EKG, no significant change Electronically Signed On 01-20-2024 14:10:00 SWAGER OPERATOR by Taras Cary M.D. [email or web address]
--- NOTE | 2024-01-19 10:52 | XRR_ITS ---
PROCEDURE INFORMATION: Exam: XR Chest Exam date and time: 01/19/2024 11:16 AM Age: 73 years old Clinical indication: Condition or disease; Lung condition and disease; Other: Chf, pleural effusion TECHNIQUE: Imaging protocol: Radiologic exam of the chest. Views: 1 view. COMPARISON: CR XR chest 1V portable [id number] 01/17/2024 3:00 PM FINDINGS: Lungs: Pulmonary edema has improved, minimal atelectatic changes at the left lung base. Pleural spaces: Subtle opacity along the left costophrenic angle which may represent a small pleural effusion. Heart/Mediastinum: Unchanged cardiac silhouette Bones/joints: Unremarkable. XR/XR chest 1V portable [id number] IMPRESSION: 1. Subtle opacity along the left costophrenic angle which may represent a small pleural effusion, unchanged when compared to prior imaging. 2. There is improvement of hazy opacities and pulmonary edema throughout both lung lobes
[2024-01-19 10:55] LABS: Body Fluid Polynuclear #Cells 0.353; Body Fluid WBC 781 /uL; Monocytes # Body Fluid 0.428
[2024-01-19 10:56] LABS: Apprearance, Body Fluid CLOUDY; Color, Body Fluid RED
[2024-01-19 10:57] LABS: Fluid Laterality LEFT PLEURAL
[2024-01-19 11:04] LABS: Cyto Order Verification Order Verified
[2024-01-19 11:07] LABS: pH Body Fluid 6.5
[2024-01-19 11:13] LABS: Body Fluid Specific Gravity 1.022
[2024-01-19 11:19] LABS: Glucose Point of Care 378 mg/dL (70-110)
[2024-01-19 11:27] LABS: Basophils % 0.1 %; Hematocrit 34.6 % (36-47); Lymphocytes # 0.4 10^3/uL (0.8-4.8); Lymphocytes % 3.7 %; Mean Corpuscular HGB Conc 30.9 g/dL (30-55); Mean Corpuscular Hemoglobin 27.6 pg (27-33); Mean Corpuscular Volume 89.2 fl (85-98); Mean Platelet Volume 9.7 fL (7.4-10.4); Monocytes # 0.5 10^3/uL (0.2-0.9); Monocytes % 4.3 %; Neutrophils # 9.46 10^3/uL (1.8-7.7); Neutrophils % 90.5 %; Nucleated Red Blood Cells % 0 %; Platelet Count 337 10^3/cmm (157-399); Red Blood Count 3.88 10^6/uL (3.85-5.65); Red Cell Distribution Width 13.3 % (12.1-15.1); White Blood Count 10.46 10^3/uL (3.29-11.43)
[2024-01-19 11:27] LABS: Albumin Body Fluid 1.7 g/dL; Cholesterol Body Fluid 38 mg/dL (0-200); Fluid Alkaline Phos. 14 IU/L; LDH Body Fluid 60 U/L; Triglycerides Body Fluid 15 mg/dL (0-150); Uric Acid Body Fluid 7 mg/dL
[2024-01-19 11:28] LABS: Total Protein Pleural Fluid 2.3 g/dL
[2024-01-19 11:44] LABS: Alanine Aminotransferase 15 U/L (0-33); Albumin Level 3.3 g/dL (3.5-5.2); Alkaline Phosphatase 69 U/L (35-105); Anion Gap 14.2 (5-19); Aspartate Amino Transferase 17 U/L (0-32); Blood Urea Nitrogen 41 mg/dL (8-23); Calcium 7.8 mg/dL (8.5-10.5); Carbon Dioxide 28 mmol/L (22-29); Chloride 96 mmol/L (98-107); Globulin 2.3 g/dL (1.3-4.6); Glucose 394 mg/dL (65-115); Osmolality Calculated 305 mOsm/kg (285-295); Potassium 4.2 mmol/L (3.5-5.1); Sodium 134 mmol/L (136-145); Total Bilirubin 0.2 mg/dL (0.15-1.2); Total Protein 5.6 g/dL (6.6-8.7)
[2024-01-19 11:48] LABS: Creatinine Clr Calc Pharmacy 58.8276
[2024-01-19] MEDS: isosorbide mononitrate ER 60 mg Tablet PO (12:13)
--- NOTE | 2024-01-19 16:16 | P.PN_ITS ---
Subjective 2 Subjective: Hospital course, labs appreciated. Patient seen sitting up in chair today. Mathew catheter in place. States she is feeling a lot better. Denies any nausea, vomiting, headache. Currently on 6 L of high flow nasal cannula saturating more than 95%. Medications: Reviewed: Yes Medication Review Details: EKG shows septal IL age-indeterminate but she had had this chronically since 2022 at least 02/25/2023 Echo The ventricle is poorly seen. The apical view is the only useful view. There is probably normal LV function and size. The ejection fraction is about 55 to 60%. Grade 1 diastolic dysfunction. Structurally normal mitral valve. Mild mitral valve regurgitation. The valve is not well-seen. It appears to be mildly calcified. There may be mild aortic stenosis. Mean gradient 10.7 mmHg, [place] 1.5 cm squared. No obvious aortic insufficiency. Previous study from 06/07/2021 is similar to today's study. Previously noted wall motion disturbances are not noted today, however this is a much poorer quality study. Vitals/I&O/Wt Last Vital Signs Temp 97.8 F 01/19/24 15:39 Pulse 74 01/19/24 15:39 Resp 16 01/19/24 15:39 BP 172/74 01/19/24 15:39 Pulse Ox 95 01/19/24 15:39 O2 Del Method Nasal Cannula 01/19/24 15:39 O2 Flow Rate 5 01/19/24 15:39 FiO2 35 01/19/24 10:21 01/19/24 01/19/24 01/19/24 06:59 14:59 22:59 Intake Total 702 / 702 Output Total 0 / 1250 1000 / 1000 Balance 0 / -180 -298 / -298 Weight last 48 hrs Weight 97.7 kg Weight 97.7 kg Weight 97.069 kg Weight 99.082 kg Weight 99.082 kg Physical Exam 2 Narrative: General: No acute distress, sitting up in chair, chronically sick appearing twice, on nasal cannula HEENT: PERRLA, pupils bilaterally equal and reactive Chest: Bronchial breath sounds all lung wong with decreased air entry bilaterally lower zone Cardiac: S1-S2 regular, no tachycardia, soft pansystolic murmur at apex, no gallop no rubs Abdomen: Soft, nontender, no organomegaly, bowel sounds present Neuro: No focal deficits, no facial deformity, AO x3, power 5/5 in all limbs Urinary Catheter Management: Mathew: Cath Placed During This Visit: yes Reason for Continuing Indwelling Catheter: Other Urinary Catheter Date of Insertion: 01/16/24 Urinary Catheter Time of Insertion: 09: Data 01/19/24 11:13 01/19/24 11:13 Micro: Microbiology 01/16/24 13:00 Urine Culture - Final Urine,Clean Catch Klebsiella pneumoniae A&P Assessment and plan (1) Acute respiratory failure with hypoxemia: Most likely in setting of diastolic heart failure along with bilateral significant pleural effusion and COPD exacerbation. Low concerns for pneumonia for now. Appreciate CTA done in the ER. Negative for PE or consolidation. Oxygen supplementation keeping saturation over 90%. Wean accordingly. Post thoracentesis 01/15- 900cc from left pleura. (2) Acute exacerbation of CHF (congestive heart failure): Aggressive diuresis with 40 mg IV Lasix every 12 hourly.Will transition to oral diuretics in next 24-48 hours Mathew catheter. Patient overall 3.6 L negative Fluid restriction to 1500 cc. Strict input output charting, daily weights. High concerns for diastolic heart failure. Appreciate Limited echocardiogram. Last echocardiogram done February 2023 showed grade 1 diastolic dysfunction with EF 55 to 60%, mild aortic stenosis. (3) HTN (hypertension): Goal blood pressure less than 140/90 mmHg. For now continue with home dose of Coreg, Entresto. Discontinue losartan as patient is already on Entresto. Blood pressure is elevated. Start on Imdur 60 mg oral daily. Uptitrate as for goal blood pressures. Patient does have history of hypertensive urgency in the past. (4) COPD (chronic obstructive pulmonary disease): Start on Pulmicort twice daily, DuoNeb every 6 hour. Wean Solu-Medrol 40 mg IV daily. Will transition to oral within next 48 hours. (5) Atherosclerosis of coronary artery: Appreciate troponin cycled. Low concern for CAD for now. Echocardiogram as above. Appreciate A1c, lipid panel. Aspirin 81 mg daily. (6) Pulmonary embolism: Continue apixaban. No pulmonary embolism on current CTA. Plan UTI: Urine culture positive for Klebsiella. Appreciate sensitivities. For now start patient on IV ceftriaxone 1 g daily. Bilateral pleural effusion: Definitely playing in part for respiratory failure. Post left-sided thoracentesis. 900 cc evacuated. Will confirm with laboratory if pleural fluid is available from 01/15. If available will add body fluid analysis and cultures. Most likely transudative. Type 2 diabetes mellitus: Appreciate A1c. Blood sugar slightly elevated because patient is on Solu-Medrol. For now continue with home dose of glargine, sliding scale moderate dose protocol ACHS. Weaning Solu-Medrol. Will continue to monitor blood sugars. Carb consistent diet Eliquis will be sufficient for DVT prophylaxis. Restart today. Protonix for PUD prophylaxis Attestations 2 Medical Necessity Statement*: Requires further hospitalization for hypoxic respiratory failure in setting of diastolic heart failure, bilateral pleural effusion postthoracentesis, uncontrolled hypertension Diagnoses Acute respiratory failure with hypoxemia J96.01 Acute exacerbation of CHF (congestive heart failure) I50.9 HTN (hypertension) I10 COPD (chronic obstructive pulmonary disease) J44.9 Atherosclerosis of coronary artery I25.10 Pulmonary embolism I26.99
[2024-01-19 16:36] LABS: Lactate Dehydrogenase 197 U/L (135-214)
[2024-01-19 17:12] LABS: Glucose Point of Care 329 mg/dL (70-110)
[2024-01-19] MEDS: cefTRIAXone 1,000 mg SDV 1000 MG IVP (17:56)
[2024-01-19 20:32] LABS: Glucose Point of Care 383 mg/dL (70-110)
[2024-01-19] MEDS: pramipexole 0.25 mg Tablet PO (20:56)
[2024-01-19] MEDS: apixaban 5 mg Tablet PO (20:56)
[2024-01-20] VITALS (17 sets, daily range): BP systolic 125–164; BP diastolic 63–78; PULSE 73–83; RESP 16–26; TEMP 36.6–37; O2SAT 87–97
[2024-01-20] MEDS: ipratropium-albuterol 3 mL Neb INHALATION ×3 (01:30→19:28)
[2024-01-20 02:48] LABS: Basophils % 0.1 %; Hematocrit 32.2 % (36-47); Lymphocytes # 1.2 10^3/uL (0.8-4.8); Lymphocytes % 13.1 %; Mean Corpuscular Hemoglobin 28.5 pg (27-33); Mean Corpuscular Volume 89.2 fl (85-98); Mean Platelet Volume 9.4 fL (7.4-10.4); Monocytes % 10.2 %; Neutrophils % 75.3 %; Nucleated Red Blood Cells % 0 %; Platelet Count 327 10^3/cmm (157-399); Red Blood Count 3.61 10^6/uL (3.85-5.65); Red Cell Distribution Width 13.2 % (12.1-15.1)
[2024-01-20 03:05] LABS: Alanine Aminotransferase 13 U/L (0-33); Albumin Level 3.1 g/dL (3.5-5.2); Alkaline Phosphatase 62 U/L (35-105); Anion Gap 10.3 (5-19); Aspartate Amino Transferase 9 U/L (0-32); Blood Urea Nitrogen 44 mg/dL (8-23); Calcium 7.8 mg/dL (8.5-10.5); Carbon Dioxide 30 mmol/L (22-29); Chloride 100 mmol/L (98-107); Creatinine Clr Calc Pharmacy 58.8276; Glucose 123 mg/dL (65-115); Osmolality Calculated 295 mOsm/kg (285-295); Potassium 4.3 mmol/L (3.5-5.1); Sodium 136 mmol/L (136-145); Total Bilirubin 0.2 mg/dL (0.15-1.2); Total Protein 5.1 g/dL (6.6-8.7)
[2024-01-20] MEDS: acetaminophen 325 mg Tablet 650 MG PO (04:04)
[2024-01-20 06:25] LABS: Glucose Point of Care 133 mg/dL (70-110)
[2024-01-20] MEDS: apixaban 5 mg Tablet PO ×2 (09:08→20:39)
[2024-01-20] MEDS: amlodipine 10 mg Tablet PO (09:08)
[2024-01-20] MEDS: clopidogrel 75 mg Tablet PO (09:08)
[2024-01-20] MEDS: isosorbide mononitrate ER 60 mg Tablet PO (09:08)
[2024-01-20] MEDS: pantoprazole DR 40 mg Tablet PO (09:08)
[2024-01-20] MEDS: sacubitril/valsartan 24-26 mg Tablet 2 EACH PO ×2 (09:08→17:45)
[2024-01-20] MEDS: guaiFENesin 600 mg Tablet 1200 MG PO ×2 (09:08→17:45)
[2024-01-20] MEDS: carvedilol 12.5 mg Tablet PO ×2 (09:08→17:46)
[2024-01-20] MEDS: insulin glargine 100 units/1 mL 30 UNIT SUBCUT (09:08)
[2024-01-20] MEDS: FUROsemide 10 mg/mL SDV 4mL 40 MG IVP ×2 (09:09→17:46)
[2024-01-20] MEDS: methylPREDNISolone sod succ 40 mg/mL INJ IVP (09:09)
--- NOTE | 2024-01-20 11:16 | PM.DCS ---
Discharge Providers Date of Admission: 01/15/24 22:06 Date of Discharge: January 20, 2024 Attending Provider at Admission: Kee Dnaielson MD Attending Provider at Discharge: Troy Gayle MD Primary Care Provider: Avtar Bruce MD Diagnoses at Discharge Discharge Diagnosis (1) Acute respiratory failure with hypoxemia: Status: Acute (2) Acute exacerbation of CHF (congestive heart failure): Status: Acute (3) HTN (hypertension): Status: Acute (4) COPD (chronic obstructive pulmonary disease): Status: Acute (5) Atherosclerosis of coronary artery: Status: Acute (6) Pulmonary embolism: Status: Acute Reason for Visit Reason for Visit: SOB Brief History: History as per HPI: Lady López is a 73 year old female w/ HTN, HLD, IDDM2, PE in 03/2021, CAD s/p 1 LILIYA to the LAD and 1 LILIYA to the LCx in 05/2021 , chronic HFpEF, admitted March for fall and wrist fracture and sent to SNF. She states for last 1 month has had increasing wt and edema but prior to that was trying to lose some with. Has had orthopnea and leg swelling. She is on 3lpm at SNF but today required 6lpm and bipap Hospital Course Hospital Course Patient was admitted to the hospital with concerns for respiratory failure in setting of congestive heart failure. She was started on noninvasive ventilation through BiPAP and IV diuretics. Chest imaging ruled out PE but was consistent with significant bilateral pleural effusion. On admission her Eliquis was withheld and she underwent thoracentesis on 01/15. Fluid was consistent with transudative. Overall patient is around 3.5 L negative by the time of discharge. She is back to her baseline oxygen supplementation. During hospitalization her urine culture came back positive for Klebsiella while blood culture remain negative. She was continued on broad-spectrum antibiotics for UTI as per culture sensitivities. During hospitalization she was also found to have elevated blood pressures for which her antihypertensives were adjusted and hydralazine has been added to her medication list. She has been discharged back to skilled nursing in hemodynamically stable condition on oral Levaquin for 1 day to finish her course of antibiotics for UTI, adjusted antihypertensives with addition of hydralazine, increasing frequency of Bumex from 2 mg daily to 2 mg twice daily along with fluid restrictions. Physical Exam Narrative: General: No acute distress, sitting up in chair, chronically sick appearing twice, on nasal cannula HEENT: PERRLA, pupils bilaterally equal and reactive Chest: Bronchial breath sounds all lung wong with decreased air entry bilaterally lower zone Cardiac: S1-S2 regular, no tachycardia, soft pansystolic murmur at apex, no gallop no rubs Abdomen: Soft, nontender, no organomegaly, bowel sounds present Neuro: No focal deficits, no facial deformity, AO x3, power 5/5 in all limbs Urinary Catheter Management: Mathew: Cath Placed During This Visit: yes Reason for Continuing Indwelling Catheter: Other Urinary Catheter Date of Insertion: 01/16/24 Urinary Catheter Time of Insertion: 09:30 Discharge Data Studies Completed and Pending Completed Studies During Hospitalization Category Date Time Status CTA chest [CT angio chest PE protcl [id number]] Stat Cat Scan 01/15/24 19:34 Completed XR chest 1V portable [id number] Routine Exams 01/19/24 10:52 Completed XR chest 1V portable [id number] Stat Exams 01/15/24 18:08 Completed XR chest 1V portable [id number] Stat Exams 01/17/24 14:45 Completed CV. echo limited [id number] Routine Ultrasound 01/16/24 09:43 Completed US thoracentesis [id number] Routine Ultrasound 01/17/24 06:00 Completed Pending at discharge Category Date Time Status Amylase, Peritoneal Fluid Routine Lab 01/19/24 10:47 Received Amylase, Pleural Fluid Routine Lab 01/19/24 10:47 Received Anaerobic Culture Routine Lab 01/19/24 10:47 Results Blood Culture Stat Lab 01/16/24 20:30 Results Body Fluid Culture & GS Routine Lab 01/19/24 10:47 Results Fungal Culture not HR/SK/BL Routine Lab 01/19/24 10:47 Received Mycobacteria, Culture w/Fluor Routine Lab 01/19/24 10:47 Received Cytology [PTH] Routine Pth 01/19/24 10:47 Received Radiology Impressions Chest CTA 01/15/24 19:34 IMPRESSION: Cardiomegaly with large bilateral pleural effusions Thoracentesis Ultrasound 01/17/24 06:00 IMPRESSION: 1. Uncomplicated ultrasound-guided LEFT thoracentesis. 2. Removal of 900 cc bloody serous fluid 3. No pneumothorax on postthoracentesis radiograph Chest X-Ray 01/19/24 10:52 IMPRESSION: 1. Subtle opacity along the left costophrenic angle which may represent a small pleural effusion, unchanged when compared to prior imaging. 2. There is improvement of hazy opacities and pulmonary edema throughout both lung lobes Microbiology 01/17/24 15:00 Pleural Fluid Gram Stain - Final 01/17/24 15:00 Pleural Fluid Anaerobic Culture - Preliminary 01/17/24 15:00 Pleural Fluid Body Fluid Culture - Preliminary 01/19/24 13:00 Urine Kidney Bacterial Antigens - Final 01/16/24 13:00 Urine,Clean Catch Urine Culture - Final Klebsiella pneumoniae 01/16/24 20:30 Blood Blood Culture - Preliminary NEGATIVE TO DATE 01/16/24 20:20 Blood Blood Culture - Preliminary NEGATIVE TO DATE Limited echocardiogram: CONCLUSIONS Limited echo to assess LV systolic function. Normal left ventricular size and function with an estimated ejection fraction of 60 %. Increased right ventricle size but with normal right ventricle systolic function. Taras Cary MD (Electronically Signed) Final Date: 16 January 2024 16:31 S Laboratory Results WBC 9.30 10^3/uL (3.29-11.43) 01/20/24 02:22 RBC 3.61 10^6/uL (3.85-5.65) L 01/20/24 02:22 Hgb 10.30 g/dL (11.27-16.99) L 01/20/24 02:22 Hct 32.2 % (36-47) L 01/20/24 02:22 MCV 89.2 fl (85-98) 01/20/24 02:22 MCH 28.5 pg (27-33) 01/20/24 02:22 MCHC 32.0 g/dL (30-55) 01/20/24 02:22 RDW 13.2 % (12.1-15.1) 01/20/24 02:22 Plt Count 327 10^3/cmm (157-399) 01/20/24 02:22 MPV 9.4 fL (7.4-10.4) 01/20/24 02:22 Neut % (Auto) 75.3 % 01/20/24 02:22 Lymph % (Auto) 13.1 % 01/20/24 02:22 [place] % (Auto) 10.2 % 01/20/24 02:22 Eos % (Auto) 0.0 % 01/20/24 02:22 Baso % (Auto) 0.1 % 01/20/24 02:22 Neut # (Auto) 7.00 10^3/uL (1.8-7.7) 01/20/24 02:22 Lymph # (Auto) 1.2 10^3/uL (0.8-4.8) 01/20/24 02:22 [place] # (Auto) 1.0 10^3/uL (0.2-0.9) H 01/20/24 02:22 Eos # (Auto) 0.0 10^3/uL (0.0-0.8) 01/20/24 02:22 Baso # (Auto) 0.0 10^3/uL (0.0-0.1) 01/20/24 02:22 Nucleated RBC % (auto) 0 % 01/20/24 02:22 Nucleated RBCs # 0.0 /100WBC 01/20/24 02:22 PT 17.1 Seconds (12-15.1) H 01/16/24 10:46 INR 1.34 (0.8-1.2) H 01/16/24 10:46 APTT 34.6 Seconds (23.9-36.7) 01/16/24 10:46 PT Patient/Normal 1:1 14.5 Seconds (12.0-15.1) 01/16/24 10:46 PTT Patient/Normal 1:1 28.8 Seconds (23.9-36.7) 01/16/24 10:46 Specimen Type Arterial 01/16/24 09:43 Sample Site Radial, right 01/16/24 09:43 ABG pH 7.38 (7.35-7.45) 01/16/24 09:43 ABG pCO2 48.0 mmHg (35-45) H 01/16/24 09:43 ABG pO2 99.7 mmHg (80.0-100.0) 01/16/24 09:43 ABG PO2/FiO2 Ratio 171 01/16/24 09:43 ABG HCO3 28.2 mmol/L (22-26) H 01/16/24 09:43 ABG O2 Saturation 97.7 01/16/24 09:43 ABG Base Excess 2.5 mmol/L (-2.0-2.0) H 01/16/24 09:43 Stephen Test Pos 01/16/24 09:43 A-a O2 Gradient 33.7 mmHg (5-10) H 01/16/24 09:43 Hematocrit 29.5 % (37-47) L 01/16/24 09:43 Hgb O2 Saturation 95.8 % (95-100) 01/16/24 09:43 Carboxyhemoglobin 0.6 %THgb (0.4-20.1) 01/16/24 09:43 Methemoglobin 1.4 % (0.4-1.5) 01/16/24 09:43 Total Hemoglobin 9.6 g/dL (12-16) L 01/16/24 09:43 Sodium 137.0 mmol/L (131-143) 01/16/24 09:43 Potassium 4.1 mmol/L (3.5-5.0) 01/16/24 09:43 Glucose 361.0 mg/dL (70-115) H 01/16/24 09:43 Ionized Calcium 1.2 mmol/L (1.1-1.4) 01/16/24 09:43 O2 Delivery Device Bipap 01/16/24 09:43 FiO2 58.5 % 01/16/24 09:43 Multimedia Developer ID [email or web address] 01/16/24 09:43 Sodium 136 mmol/L (136-145) 01/20/24 02:22 Potassium 4.3 mmol/L (3.5-5.1) 01/20/24 02:22 Chloride 100 mmol/L (98-107) 01/20/24 02:22 Carbon Dioxide 30 mmol/L (22-29) H 01/20/24 02:22 Anion Gap 10.3 (5-19) 01/20/24 02:22 BUN 44 mg/dL (8-23) H 01/20/24 02:22 Creatinine 1.0 mg/dL (0.5-0.9) H 01/20/24 02:22 GFR Calculation Not Reportable 01/20/24 02:22 Glucose 123 mg/dL (65-115) H 01/20/24 02:22 POC Glucose 133 mg/dL (70-110) H 01/20/24 06:21 Estimat Average Glucose 137 01/16/24 10:46 Hemoglobin A1c 6.4 % (4.0-6.0) H 01/16/24 10:46 Calculated Osmolality 295 mOsm/kg (285-295) 01/20/24 02:22 Calcium 7.8 mg/dL (8.5-10.5) L 01/20/24 02:22 Phosphorus 4.2 mg/dL (2.5-4.5) 01/17/24 03:17 Magnesium 2.2 mg/dL (1.7-2.3) 01/19/24 03:06 Iron 17 ug/dL (37-145) L 01/16/24 10:46 TIBC 220 mcg/dl 01/16/24 10:46 % Saturation 7.7 % (20-50) L 01/16/24 10:46 Unsat Iron Binding 203 ug/dL (112-347) 01/16/24 10:46 Total Bilirubin 0.2 mg/dL (0.15-1.2) 01/20/24 02:22 AST 9 U/L (0-32) 01/20/24 02:22 ALT 13 U/L (0-33) 01/20/24 02:22 Alkaline Phosphatase 62 U/L (35-105) 01/20/24 02:22 Lactate Dehydrogenase 197 U/L (135-214) 01/19/24 11:13 Troponin T 5th Gen ng/L 20 ng/L (0-10) H 01/16/24 03:48 Troponin T Baseline 19 ng/L (0-10) H 01/15/24 18:37 Troponin T 120 Minute 22.19 ng/L (0-10) H 01/15/24 20:46 Delta Troponin T 3.19 ABS# (0-10) 01/15/24 20:46 Troponin T Hi Sens 6Hr 19.82 ng/L (0-10) H 01/16/24 00:59 Troponin T Hi Sens 6Hr Delta 0.82 ng/L (0-12) 01/16/24 00:59 C-Reactive Protein 25.1 mg/L (0.0-4.9) H 01/18/24 04:32 NT-Pro-B Natriuret Pep 2191 pg/mL (0-125) H 01/15/24 18:37 Total Protein 5.1 g/dL (6.6-8.7) L 01/20/24 02:22 Albumin 3.1 g/dL (3.5-5.2) L 01/20/24 02:22 Globulin 2.0 g/dL (1.3-4.6) 01/20/24 02:22 Triglycerides 75 mg/dL (0-150) 01/17/24 03:17 Cholesterol 242 mg/dL (0-200) H 01/17/24 03:17 LDL Cholesterol, Calc 163 mg/dL (50-129) H 01/17/24 03:17 Total VLDL Cholesterol 15 mg/dL (0-30) 01/17/24 03:17 HDL Cholesterol 64 mg/dL (60-100) 01/17/24 03:17 Cholesterol/HDL Ratio 3.78 mg/dL (0.0-4.40) 01/17/24 03:17 Vitamin B12 262 pg/mL (232-1245) 01/16/24 10:46 Folate 10.1 ng/mL (4.8-37.3) 01/17/24 03:17 Procalcitonin 0.09 ng/mL (0-0.5) 01/16/24 10:46 TSH 2.14 uIU/mL (0.27-4.20) 01/16/24 10:46 Urine Color Yellow (Yellow) 01/16/24 13:00 Urine Appearance Cloudy (CLEAR) A 01/16/24 13:00 Urine pH 5.0 (5-7) 01/16/24 13:00 Ur Specific [place] 1.022 (1.005-1.030) 01/16/24 13:00 Urine Protein 2+ (Negative) A 01/16/24 13:00 Urine Glucose (UA) Negative (Normal) 01/16/24 13:00 Urine Ketones Negative (Negative) 01/16/24 13:00 Urine Blood 3+ (Negative) A 01/16/24 13:00 Urine Nitrate Negative (Negative) 01/16/24 13:00 Urine Bilirubin Negative (Negative) 01/16/24 13:00 Urine Urobilinogen 1.0 mg/dL (Negative) 01/16/24 13:00 Ur Leukocyte Esterase 2+ (Negative) A 01/16/24 13:00 Urine RBC 25-40 /hpf (0-2) H 01/16/24 13:00 Urine WBC >100 /hpf (0-5) H 01/16/24 13:00 Ur Squamous Epith Cells 5-10 /hpf (0-5) H 01/16/24 13:00 Ur Transition Epith Cell 0-4 /hpf 01/16/24 13:00 Amorphous Sediment Not Reportable 01/16/24 13:00 Urine Bacteria 3+ /hpf (NONE) H 01/16/24 13:00 Urine Mucus 1+ /hpf 01/16/24 13:00 Fluid Color Red 01/17/24 15:00 Fluid Appearance Cloudy 01/17/24 15:00 Fluid Specific Grav 1.022 01/17/24 15:00 Fluid pH 6.5 01/17/24 15:00 Fluid WBC 781 /uL 01/17/24 15:00 Fluid RBC 9.000 10^3/uL 01/17/24 15:00 Fld Polynuclear WBCs # 0.353 01/17/24 15:00 Fld Polynuclear WBCs % 45.200 % 01/17/24 15:00 Fl Mononucl WBCs #(Auto) 0.428 01/17/24 15:00 Fl Mononuclear % Auto 54.800 % 01/17/24 15:00 Fld Crystal Laterality Left pleural 01/17/24 15:00 Fluid Glucose 316.0 mg/dL 01/17/24 15:00 Fluid Albumin 1.7 g/dL 01/17/24 15:00 Fluid LDH 60 U/L 01/17/24 15:00 Fluid Alk Phosphatase 14 IU/L 01/17/24 15:00 Fluid Cholesterol 38 mg/dL (0-200) 01/17/24 15:00 Fluid Triglycerides 15 mg/dL (0-150) 01/17/24 15:00 Fluid Uric Acid 7 mg/dL 01/17/24 15:00 Pleural Total Protein 2.3 g/dL 01/17/24 15:00 Adenovirus (PCR) Not detected (NOT DETECT) 01/16/24 13:00 C. pneumoniae DNA (PCR) Not detected (NOT DETECT) 01/16/24 13:00 Coronavirus 229E (PCR) Not detected (NOT DETECT) 01/16/24 13:00 Human Metapneumovir PCR Not detected (NOT DETECT) 01/16/24 13:00 Influenza A (H1) PCR Not detected (NOT DETECT) 01/16/24 13:00 Influ A (H1/09) PCR Not detected (NOT DETECT) 01/16/24 13:00 Influenza A (H3) PCR Not detected (NOT DETECT) 01/16/24 13:00 Influenza Type A (PCR) Not detected (NOT DETECT) 01/16/24 13:00 Influenza Type B (PCR) Not detected (NOT DETECT) 01/16/24 13:00 M. pneumoniae (PCR) Not detected (NOT DETECT) 01/16/24 13:00 Parainfluenza 1 (PCR) Not detected (NOT DETECT) 01/16/24 13:00 Parainfluenza 2 (PCR) Not detected (NOT DETECT) 01/16/24 13:00 Parainfluenza 3 (PCR) Not detected (NOT DETECT) 01/16/24 13:00 Parainfluenza 4 (PCR) Not detected (NOT DETECT) 01/16/24 13:00 RSV Type A (PCR) Not detected (NOT DETECT) 01/16/24 13:00 RSV Type B (PCR) Not detected (NOT DETECT) 01/16/24 13:00 Entero/Rhino (PCR) Detected (NOT DETECT) A 01/16/24 13:00 SARS-CoV-2 (PCR) Not detected (NOT DETECT) 01/16/24 13:00 Vitals Last Vital Signs Temp 98.2 F 01/20/24 07:49 Pulse 75 01/20/24 08:50 Resp 16 01/20/24 08:50 BP 159/78 01/20/24 07:49 Pulse Ox 88 L 01/20/24 10:30 O2 Del Method Nasal Cannula 01/20/24 08:50 O2 Flow Rate 2 01/20/24 10:30 FiO2 35 01/19/24 10:21 Discharge Plan Discharge Patient Disposition: Home Condition: Stable Prescriptions: New hydralazine 25 mg tablet 25 mg PO TID Qty: 90 0RF dapagliflozin propanediol [Farxiga] 10 mg tablet 10 mg PO DAILY Qty: 30 0RF Continued tiotropium bromide [Spiriva with HandiHaler] 18 mcg capsule, w/inhalation device 1 cap inhalation DAILY Qty: 60 2RF Rx Instructions: puncture 1 cap using device; one dose = 2 inhalations acetaminophen 500 mg capsule 1,000 mg PO Q6H PRN (Reason: Pain) insulin lispro [Humalog KwikPen Insulin] 100 unit/mL insulin pen 5 unit SUBCUT .sliding scale Rx Instructions: per sliding scale tramadol 50 mg tablet 100 mg PO BID PRN (Reason: Pain) ([facility]) left custom volar splint See Rx Instructions .Route .MEDSUPPLY Qty: 1 0RF Rx Instructions: As directed Entresto 49-51 mg tablet 1 tab PO BID ([facility]) ReliOn Prime Test Strips Strip See Rx Instructions .Route Qty: 300 3RF Rx Instructions: As directed with Relion meter TID 90 day supply ([facility]) OneTouch Ultra Test Strip See Rx Instructions .ROUTE .COMPLEX Qty: 100 11RF Dose Instruction: DIRECTED, CHECK SUGARS DAILY FASTING AND OCCASIONALLY ONE HOUR POST MEAL INSTEAD OF FASTING E11.9 Rx Instructions: DIRECTED, CHECK SUGARS DAILY FASTING AND OCCASIONALLY ONE HOUR POST MEAL INSTEAD OF FASTING E11.9 ([facility]) insulin syringe-needle U-100 [BD Insulin Syringe Ultra-Fine] 1 mL 31 gauge x 5/16 syringe See Rx Instructions .ROUTE .COMPLEX Qty: 100 3RF Dose Instruction: DIRECTED Rx Instructions: DIRECTED amlodipine 10 mg tablet 10 mg PO DAILY Qty: 90 3RF pantoprazole 40 mg tablet,delayed release (DR/EC) 40 mg PO DAILY Qty: 90 3RF Eliquis 5 mg tablet 5 mg PO BID Qty: 90 3RF carvedilol 12.5 mg tablet See Rx Instructions .ROUTE .COMPLEX Qty: 180 0RF Dose Instruction: TAKE 1 TABLET BY MOUTH TWICE DAILY Rx Instructions: TAKE 1 TABLET BY MOUTH TWICE DAILY clopidogrel 75 mg tablet See Rx Instructions .ROUTE .COMPLEX Qty: 90 0RF Dose Instruction: TAKE 1 TABLET BY MOUTH EVERY DAY Rx Instructions: TAKE 1 TABLET BY MOUTH EVERY DAY metoclopramide HCl 10 mg tablet 10 mg PO QID PRN (Reason: nausea and vomiting) Qty: 120 1RF bismuth subsalicylate [Pepto-Bismol] 262 mg/15 mL Suspension 524 mg PO Q1H PRN (Reason: Gastrointestinal Spasms Or Cramping) Rx Instructions: do not exceed 8 doses in a 24 hour period cholecalciferol (vitamin D3) [Vitamin D3] 25 mcg (1,000 unit) Tablet 25 mcg PO DAILY polyethylene glycol 3350 [Miralax] 17 gram powder in packet 17 g PO DAILY PRN (Reason: constipation) Qty: 14 0RF multivitamin Tablet 1 tab PO DAILY insulin glargine [Lantus U-100 Insulin] 100 unit/mL solution 30 unit SUBCUT DAILY sennosides-docusate sodium [Laxacin] 8.6-50 mg tablet 1 tab-cap PO DAILY Qty: 30 0RF guaifenesin 1,200 mg tablet extended release 12hr 1,200 mg PO BID Qty: 14 0RF albuterol sulfate 90 mcg/actuation HFA aerosol inhaler 2 inh inhalation Q6H PRN (Reason: shortness of breath or wheezing) Qty: 8.5 0RF Changed bumetanide 2 mg tablet 2 mg PO BID Qty: 30 0RF Discontinued metformin 1,000 mg tablet 1,000 mg PO BID losartan 100 mg tablet 100 mg PO QAM Qty: 90 1RF Discharge Orders: Discharge Order (Routine); Ordered 01/20/24 Ordered By: Troy Gayle Referrals: Avtar Bruce MD [Primary Care Provider] - Patient Instructions: Opioid Safety Activity Restrictions/Additional Instructions: Goal blood pressure of less than 140/90 mmHg. Hydralazine 3 times a day has been added to your medication list for better blood pressure control. Do not take losartan as you are already on Entresto. Bumex has been increased from 2 mg daily to 2 mg twice daily. Metformin has been discontinued and Farxiga has been started. Restrict fluid intake to less than 1500 cc, salt intake to less than 2 g daily. Advised to check his weight daily at home. Is advised that weight today would be the dry weight and if body weight increases by around 5 pounds, patient is to take an extra dose of Bumex 1 mg daily till body weight comes down to weight today. If not able to come down to dry body weight in 1 week, then is to call cardiology office for further recommendations. Patient was counseled in detail to take medications regularly as prescribed. Discharge Attestations Time Spent in Discharge Care*: greater than 30 min Specific Discharge Activities: educating patient, educating and/or supporting family/caregiver, discussing with pcp/other providers, discussing with case management social worker/social workers/dc planners, documenting/other paperwork and evaluating patient/reviewing data Status at Discharge: Cognitive status at discharge: mildly impaired cognition, Behavioral status at discharge: cooperative, Quality Metrics Clinical Quality Measures [ No reported AMI, CVA or VTE this stay] Coding Level of Care Code 90364 Total time (in minutes) for Discharge: 60 Diagnoses Acute respiratory failure with hypoxemia J96.01 Acute exacerbation of CHF (congestive heart failure) I50.9 HTN (hypertension) I10 COPD (chronic obstructive pulmonary disease) J44.9 Atherosclerosis of coronary artery I25.10 Pulmonary embolism I26.99
[2024-01-20 11:53] LABS: Glucose Point of Care 285 mg/dL (70-110)
[2024-01-20] MEDS: insulin lispro 100 unit/1 mL SUBCUT ×3 (12:30→20:39)
[2024-01-20] MEDS: hyDRALAzine 25 mg Tablet PO ×2 (15:35→20:39)
[2024-01-20 16:59] LABS: Glucose Point of Care 250 mg/dL (70-110)
[2024-01-20] MEDS: cefTRIAXone 1,000 mg SDV 1000 MG IVP (17:46)
[2024-01-20] MEDS: budesonide 0.5 mg/2 mL Neb INHALATION (19:28)
[2024-01-20 20:33] LABS: Glucose Point of Care 375 mg/dL (70-110)
[2024-01-20] MEDS: pramipexole 0.25 mg Tablet PO (20:39)
[2024-01-21] VITALS (7 sets, daily range): BP systolic 169–178; BP diastolic 74–77; PULSE 73–83; RESP 15–20; TEMP 36.6–37; O2SAT 95–98
[2024-01-21] MEDS: ipratropium-albuterol 3 mL Neb INHALATION ×2 (02:28→07:34)
--- NOTE | 2024-01-21 05:33 | PC.NURSE ---
at shift change, previous nurse stated pt was to be [facility] but [facility] couldn't [facility] her due to the new meds she would need at discharge and they wouldn't be able to fill at that time due to it being Sunday.
[2024-01-21 06:32] LABS: Glucose Point of Care 201 mg/dL (70-110)
[2024-01-21] MEDS: budesonide 0.5 mg/2 mL Neb INHALATION (07:33)
[2024-01-21] MEDS: insulin lispro 100 unit/1 mL SUBCUT (10:26)
[2024-01-21] MEDS: amlodipine 10 mg Tablet PO (11:26)
[2024-01-21] MEDS: apixaban 5 mg Tablet PO (11:26)
[2024-01-21] MEDS: carvedilol 12.5 mg Tablet PO (11:26)
[2024-01-21] MEDS: insulin glargine 100 units/1 mL 30 UNIT SUBCUT (11:27)
[2024-01-21] MEDS: FUROsemide 10 mg/mL SDV 4mL 40 MG IVP (11:27)
[2024-01-21] MEDS: clopidogrel 75 mg Tablet PO (11:27)
[2024-01-21] MEDS: hyDRALAzine 25 mg Tablet PO (11:27)
[2024-01-21] MEDS: guaiFENesin 600 mg Tablet 1200 MG PO (11:27)
[2024-01-21] MEDS: isosorbide mononitrate ER 60 mg Tablet PO (11:28)
[2024-01-21] MEDS: sacubitril/valsartan 24-26 mg Tablet 2 EACH PO (11:28)
[2024-01-21] MEDS: methylPREDNISolone sod succ 40 mg/mL INJ IVP (11:28)
[2024-01-21] MEDS: pantoprazole DR 40 mg Tablet PO (11:28)
--- NOTE | 2024-01-21 11:34 | PC.NURSE ---
Patient left with [facility] but case management is getting her a referral to [facility] as that was the patient's preference.
--- NOTE | 2024-01-21 11:56 | P.DS_ITS ---
Discharge Providers Date of Admission: 01/15/24 22:06 Date of Discharge: January 21, 2024 Attending Provider at Admission: Kee Danielson MD Attending Provider at Discharge: Zach Webb Primary Care Provider: Avtar Bruce MD Diagnoses at Discharge Discharge Diagnosis (1) Acute respiratory failure with hypoxemia: Status: Acute (2) Acute exacerbation of CHF (congestive heart failure): Status: Acute (3) HTN (hypertension): Status: Acute (4) COPD (chronic obstructive pulmonary disease): Status: Acute (5) Atherosclerosis of coronary artery: Status: Acute (6) Pulmonary embolism: Status: Acute Reason for Visit Reason for Visit: SOB Hospital Course Hospital Course Pleasant 71-year-old lady with history of CAD, stenting, including LAD, LCx in 2021, HFpEF, PE, DM2, HTN, HLD, presented due to increasing edema, orthopnea, increased oxygen requirement up to 6 L, BiPAP, found to be in respiratory failure on presentation requiring BiPAP, with decompensated CHF, COPD exacerbation secondary to former. Treated with IV diuretics, and underwent thoracentesis with finding of transudative fluid on 01/15. She was found to be positive for rhino/enterovirus. Additionally found to have Klebsiella urinary tract infection for which received a course of ceftriaxone. Continued on anticoagulation for history of PE. Was maintained on sodium restriction. Antihypertensives adjusted during hospitalization. CHF exacerbation has improved, oxygen requirement has decreased, weaned off BiPAP. She is doing well. Does report having had some issues with decreased hearing. She is currently off of any further antibiotic. Please follow-up and reassess hearing. She does report that she had lost hearing after her last pneumonia she had had. In case lack of improvement, consider referral to audiology. She denies any associated otic symptoms. She feels she has some swollen glands in her neck, please follow-up for resolution after recent rhino/enterovirus infection. Please change from Bumex to Lasix in case it is affecting her hearing. Physical Exam Narrative: Sitting up in chair. Const: COMMON NORMALS: patient oriented x3 and alert GENERAL APPEARANCE: cooperative ORIENTATION/CONSCIOUSNESS: Yes awake HENMT: COMMON NORMALS: oropharynx normal Neck/C-Spine: COMMON NORMALS: no JVD Resp: COMMON NORMALS: normal respiratory effort and clear to auscultation bilaterally AUSCULTATION: clear to auscultation bilaterally Cardio: COMMON NORMALS: no JVD, regular rhythm, S1 normal heart sound present, S2 normal heart sound present and No murmurs present (Cardio) RHYTHM: regular rhythm HEART SOUNDS: S1 normal heart sound present and S2 normal heart sound present GI: COMMON NORMALS: Normal to inspection, nondistended, normoactive bowel sounds present, Soft to palpation and non-tender PALPATION: Yes Soft to palpation Extremity: COMMON NORMALS: no joint enlargement and no pedal edema Neuro: COMMON NORMALS: patient oriented x3 and moves all extremities SENSORIUM/ORIENTATION: Yes alert Skin: COMMON NORMALS: no rashes or lesions noted GENERAL SKIN EXAM: no rashes or lesions noted Urinary Catheter Management: Mathew: Cath Placed During This Visit: yes, but has since been removed by the nurse Reason for Continuing Indwelling Catheter: Other Urinary Catheter Date of Insertion: 01/16/24 Urinary Catheter Time of Insertion: 09:30 Date Urinary Catheter Removed: 01/20/24 Time Urinary Catheter Discontinued: 17:00 Discharge Data Studies Completed and Pending Completed Studies During Hospitalization Category Date Time Status CTA chest [CT angio chest PE protcl [id number]] Stat Cat Scan 01/15/24 19:34 Completed XR chest 1V portable [id number] Routine Exams 01/19/24 10:52 Completed XR chest 1V portable [id number] Stat Exams 01/15/24 18:08 Completed XR chest 1V portable [id number] Stat Exams 01/17/24 14:45 Completed CV. echo limited [id number] Routine Ultrasound 01/16/24 09:43 Completed US thoracentesis [id number] Routine Ultrasound 01/17/24 06:00 Completed Pending at discharge Category Date Time Status Amylase, Pleural Fluid Routine Lab 01/19/24 10:47 Received Anaerobic Culture Routine Lab 01/19/24 10:47 Results Blood Culture Stat Lab 01/16/24 20:30 Results Body Fluid Culture & GS Routine Lab 01/19/24 10:47 Results Fungal Culture not HR/SK/BL Routine Lab 01/19/24 10:47 Received Mycobacteria, Culture w/Fluor Routine Lab 01/19/24 10:47 Received Cytology [PTH] Routine Pth 01/19/24 10:47 Received Radiology Impressions Chest CTA 01/15/24 19:34 IMPRESSION: Cardiomegaly with large bilateral pleural effusions Thoracentesis Ultrasound 01/17/24 06:00 IMPRESSION: 1. Uncomplicated ultrasound-guided LEFT thoracentesis. 2. Removal of 900 cc bloody serous fluid 3. No pneumothorax on postthoracentesis radiograph Chest X-Ray 01/19/24 10:52 IMPRESSION: 1. Subtle opacity along the left costophrenic angle which may represent a small pleural effusion, unchanged when compared to prior imaging. 2. There is improvement of hazy opacities and pulmonary edema throughout both lung lobes Laboratory Results WBC 9.30 10^3/uL (3.29-11.43) 01/20/24 02:22 RBC 3.61 10^6/uL (3.85-5.65) L 01/20/24 02:22 Hgb 10.30 g/dL (11.27-16.99) L 01/20/24 02:22 Hct 32.2 % (36-47) L 01/20/24 02:22 MCV 89.2 fl (85-98) 01/20/24 02:22 MCH 28.5 pg (27-33) 01/20/24 02:22 MCHC 32.0 g/dL (30-55) 01/20/24 02:22 RDW 13.2 % (12.1-15.1) 01/20/24 02:22 Plt Count 327 10^3/cmm (157-399) 01/20/24 02:22 MPV 9.4 fL (7.4-10.4) 01/20/24 02:22 Neut % (Auto) 75.3 % 01/20/24 02:22 Lymph % (Auto) 13.1 % 01/20/24 02:22 [place] % (Auto) 10.2 % 01/20/24 02:22 Eos % (Auto) 0.0 % 01/20/24 02:22 Baso % (Auto) 0.1 % 01/20/24 02:22 Neut # (Auto) 7.00 10^3/uL (1.8-7.7) 01/20/24 02:22 Lymph # (Auto) 1.2 10^3/uL (0.8-4.8) 01/20/24 02:22 Oldham # (Auto) 1.0 10^3/uL (0.2-0.9) H 01/20/24 02:22 Eos # (Auto) 0.0 10^3/uL (0.0-0.8) 01/20/24 02:22 Baso # (Auto) 0.0 10^3/uL (0.0-0.1) 01/20/24 02:22 Nucleated RBC % (auto) 0 % 01/20/24 02:22 Nucleated RBCs # 0.0 /100WBC 01/20/24 02:22 PT 17.1 Seconds (12-15.1) H 01/16/24 10:46 INR 1.34 (0.8-1.2) H 01/16/24 10:46 APTT 34.6 Seconds (23.9-36.7) 01/16/24 10:46 PT Patient/Normal 1:1 14.5 Seconds (12.0-15.1) 01/16/24 10:46 PTT Patient/Normal 1:1 28.8 Seconds (23.9-36.7) 01/16/24 10:46 Specimen Type Arterial 01/16/24 09:43 Sample Site Radial, right 01/16/24 09:43 ABG pH 7.38 (7.35-7.45) 01/16/24 09:43 ABG pCO2 48.0 mmHg (35-45) H 01/16/24 09:43 ABG pO2 99.7 mmHg (80.0-100.0) 01/16/24 09:43 ABG PO2/FiO2 Ratio 171 01/16/24 09:43 ABG HCO3 28.2 mmol/L (22-26) H 01/16/24 09:43 ABG O2 Saturation 97.7 01/16/24 09:43 ABG Base Excess 2.5 mmol/L (-2.0-2.0) H 01/16/24 09:43 Stephen Test Pos 01/16/24 09:43 A-a O2 Gradient 33.7 mmHg (5-10) H 01/16/24 09:43 Hematocrit 29.5 % (37-47) L 01/16/24 09:43 Hgb O2 Saturation 95.8 % (95-100) 01/16/24 09:43 Carboxyhemoglobin 0.6 %THgb (0.4-20.1) 01/16/24 09:43 Methemoglobin 1.4 % (0.4-1.5) 01/16/24 09:43 Total Hemoglobin 9.6 g/dL (12-16) L 01/16/24 09:43 Sodium 137.0 mmol/L (131-143) 01/16/24 09:43 Potassium 4.1 mmol/L (3.5-5.0) 01/16/24 09:43 Glucose 361.0 mg/dL (70-115) H 01/16/24 09:43 Ionized Calcium 1.2 mmol/L (1.1-1.4) 01/16/24 09:43 O2 Delivery Device Bipap 01/16/24 09:43 FiO2 58.5 % 01/16/24 09:43 Batting Machine Operator ID [id number] 01/16/24 09:43 Sodium 136 mmol/L (136-145) 01/20/24 02:22 Potassium 4.3 mmol/L (3.5-5.1) 01/20/24 02:22 Chloride 100 mmol/L (98-107) 01/20/24 02:22 Carbon Dioxide 30 mmol/L (22-29) H 01/20/24 02:22 Anion Gap 10.3 (5-19) 01/20/24 02:22 BUN 44 mg/dL (8-23) H 01/20/24 02:22 Creatinine 1.0 mg/dL (0.5-0.9) H 01/20/24 02:22 GFR Calculation Not Reportable 01/20/24 02:22 Glucose 123 mg/dL (65-115) H 01/20/24 02:22 POC Glucose 201 mg/dL (70-110) H 01/21/24 06:28 Estimat Average Glucose 137 01/16/24 10:46 Hemoglobin A1c 6.4 % (4.0-6.0) H 01/16/24 10:46 Calculated Osmolality 295 mOsm/kg (285-295) 01/20/24 02:22 Calcium 7.8 mg/dL (8.5-10.5) L 01/20/24 02:22 Phosphorus 4.2 mg/dL (2.5-4.5) 01/17/24 03:17 Magnesium 2.2 mg/dL (1.7-2.3) 01/19/24 03:06 Iron 17 ug/dL (37-145) L 01/16/24 10:46 TIBC 220 mcg/dl 01/16/24 10:46 % Saturation 7.7 % (20-50) L 01/16/24 10:46 Unsat Iron Binding 203 ug/dL (112-347) 01/16/24 10:46 Total Bilirubin 0.2 mg/dL (0.15-1.2) 01/20/24 02:22 AST 9 U/L (0-32) 01/20/24 02:22 ALT 13 U/L (0-33) 01/20/24 02:22 Alkaline Phosphatase 62 U/L (35-105) 01/20/24 02:22 Lactate Dehydrogenase 197 U/L (135-214) 01/19/24 11:13 Troponin T 5th Gen ng/L 20 ng/L (0-10) H 01/16/24 03:48 Troponin T Baseline 19 ng/L (0-10) H 01/15/24 18:37 Troponin T 120 Minute 22.19 ng/L (0-10) H 01/15/24 20:46 Delta Troponin T 3.19 ABS# (0-10) 01/15/24 20:46 Troponin T Hi Sens 6Hr 19.82 ng/L (0-10) H 01/16/24 00:59 Troponin T Hi Sens 6Hr Delta 0.82 ng/L (0-12) 01/16/24 00:59 C-Reactive Protein 25.1 mg/L (0.0-4.9) H 01/18/24 04:32 NT-Pro-B Natriuret Pep 2191 pg/mL (0-125) H 01/15/24 18:37 Total Protein 5.1 g/dL (6.6-8.7) L 01/20/24 02:22 Albumin 3.1 g/dL (3.5-5.2) L 01/20/24 02:22 Globulin 2.0 g/dL (1.3-4.6) 01/20/24 02:22 Triglycerides 75 mg/dL (0-150) 01/17/24 03:17 Cholesterol 242 mg/dL (0-200) H 01/17/24 03:17 LDL Cholesterol, Calc 163 mg/dL (50-129) H 01/17/24 03:17 Total VLDL Cholesterol 15 mg/dL (0-30) 01/17/24 03:17 HDL Cholesterol 64 mg/dL (60-100) 01/17/24 03:17 Cholesterol/HDL Ratio 3.78 mg/dL (0.0-4.40) 01/17/24 03:17 Vitamin B12 262 pg/mL (232-1245) 01/16/24 10:46 Folate 10.1 ng/mL (4.8-37.3) 01/17/24 03:17 Procalcitonin 0.09 ng/mL (0-0.5) 01/16/24 10:46 TSH 2.14 uIU/mL (0.27-4.20) 01/16/24 10:46 Urine Color Yellow (Yellow) 01/16/24 13:00 Urine Appearance Cloudy (CLEAR) A 01/16/24 13:00 Urine pH 5.0 (5-7) 01/16/24 13:00 Ur Specific Jackson 1.022 (1.005-1.030) 01/16/24 13:00 Urine Protein 2+ (Negative) A 01/16/24 13:00 Urine Glucose (UA) Negative (Normal) 01/16/24 13:00 Urine Ketones Negative (Negative) 01/16/24 13:00 Urine Blood 3+ (Negative) A 01/16/24 13:00 Urine Nitrate Negative (Negative) 01/16/24 13:00 Urine Bilirubin Negative (Negative) 01/16/24 13:00 Urine Urobilinogen 1.0 mg/dL (Negative) 01/16/24 13:00 Ur Leukocyte Esterase 2+ (Negative) A 01/16/24 13:00 Urine RBC 25-40 /hpf (0-2) H 01/16/24 13:00 Urine WBC >100 /hpf (0-5) H 01/16/24 13:00 Ur Squamous Epith Cells 5-10 /hpf (0-5) H 01/16/24 13:00 Ur Transition Epith Cell 0-4 /hpf 01/16/24 13:00 Amorphous Sediment Not Reportable 01/16/24 13:00 Urine Bacteria 3+ /hpf (NONE) H 01/16/24 13:00 Urine Mucus 1+ /hpf 01/16/24 13:00 Fluid Color Red 01/17/24 15:00 Fluid Appearance Cloudy 01/17/24 15:00 Fluid Specific Grav 1.022 01/17/24 15:00 Fluid pH 6.5 01/17/24 15:00 Fluid WBC 781 /uL 01/17/24 15:00 Fluid RBC 9.000 10^3/uL 01/17/24 15:00 Fld Polynuclear WBCs # 0.353 01/17/24 15:00 Fld Polynuclear WBCs % 45.200 % 01/17/24 15:00 Fl Mononucl WBCs #(Auto) 0.428 01/17/24 15:00 Fl Mononuclear % Auto 54.800 % 01/17/24 15:00 Fld Crystal Laterality Left pleural 01/17/24 15:00 Fluid Glucose 316.0 mg/dL 01/17/24 15:00 Fluid Albumin 1.7 g/dL 01/17/24 15:00 Fluid LDH 60 U/L 01/17/24 15:00 Fluid Alk Phosphatase 14 IU/L 01/17/24 15:00 Fluid Cholesterol 38 mg/dL (0-200) 01/17/24 15:00 Fluid Triglycerides 15 mg/dL (0-150) 01/17/24 15:00 Fluid Uric Acid 7 mg/dL 01/17/24 15:00 Peritoneal Amylase Cancelled 01/17/24 15:00 Pleural Total Protein 2.3 g/dL 01/17/24 15:00 Adenovirus (PCR) Not detected (NOT DETECT) 01/16/24 13:00 C. pneumoniae DNA (PCR) Not detected (NOT DETECT) 01/16/24 13:00 Coronavirus 229E (PCR) Not detected (NOT DETECT) 01/16/24 13:00 Human Metapneumovir PCR Not detected (NOT DETECT) 01/16/24 13:00 Influenza A (H1) PCR Not detected (NOT DETECT) 01/16/24 13:00 Influ A (H1/09) PCR Not detected (NOT DETECT) 01/16/24 13:00 Influenza A (H3) PCR Not detected (NOT DETECT) 01/16/24 13:00 Influenza Type A (PCR) Not detected (NOT DETECT) 01/16/24 13:00 Influenza Type B (PCR) Not detected (NOT DETECT) 01/16/24 13:00 M. pneumoniae (PCR) Not detected (NOT DETECT) 01/16/24 13:00 Parainfluenza 1 (PCR) Not detected (NOT DETECT) 01/16/24 13:00 Parainfluenza 2 (PCR) Not detected (NOT DETECT) 01/16/24 13:00 Parainfluenza 3 (PCR) Not detected (NOT DETECT) 01/16/24 13:00 Parainfluenza 4 (PCR) Not detected (NOT DETECT) 01/16/24 13:00 RSV Type A (PCR) Not detected (NOT DETECT) 01/16/24 13:00 RSV Type B (PCR) Not detected (NOT DETECT) 01/16/24 13:00 Entero/Rhino (PCR) Detected (NOT DETECT) A 01/16/24 13:00 SARS-CoV-2 (PCR) Not detected (NOT DETECT) 01/16/24 13:00 Vitals Last Vital Signs Temp 98.3 F 01/21/24 09:36 Pulse 83 01/21/24 09:36 Resp 20 H 01/21/24 09:36 BP 176/77 01/21/24 09:36 Pulse Ox 96 01/21/24 09:36 O2 Del Method Nasal Cannula 01/21/24 07:36 O2 Flow Rate 2 01/21/24 07:36 FiO2 35 01/19/24 10:21 Discharge Plan Discharge Patient Disposition: Home Condition: Stable Prescriptions: New dapagliflozin propanediol [Farxiga] 10 mg tablet 10 mg PO DAILY Qty: 30 0RF hydralazine 25 mg tablet 25 mg PO TID Qty: 90 0RF furosemide [Lasix] 80 mg tablet 40 mg PO BID Qty: 180 0RF Continued tiotropium bromide [Spiriva with HandiHaler] 18 mcg capsule, w/inhalation device 1 cap inhalation DAILY Qty: 60 2RF Rx Instructions: puncture 1 cap using device; one dose = 2 inhalations acetaminophen 500 mg capsule 1,000 mg PO Q6H PRN (Reason: Pain) insulin lispro [Humalog KwikPen Insulin] 100 unit/mL insulin pen 5 unit SUBCUT .sliding scale Rx Instructions: per sliding scale tramadol 50 mg tablet 100 mg PO BID PRN (Reason: Pain) (DME) left custom volar splint See Rx Instructions .Route .MEDSUPPLY Qty: 1 0RF Rx Instructions: As directed Entresto 49-51 mg tablet 1 tab PO BID (DME) ReliOn Prime Test Strips Strip See Rx Instructions .Route Qty: 300 3RF Rx Instructions: As directed with Relion meter TID 90 day supply (DME) OneTouch Ultra Test Strip See Rx Instructions .ROUTE .COMPLEX Qty: 100 11RF Dose Instruction: DIRECTED, CHECK SUGARS DAILY FASTING AND OCCASIONALLY ONE HOUR POST MEAL INSTEAD OF FASTING E11.9 Rx Instructions: DIRECTED, CHECK SUGARS DAILY FASTING AND OCCASIONALLY ONE HOUR POST MEAL INSTEAD OF FASTING E11.9 (DME) insulin syringe-needle U-100 [BD Insulin Syringe Ultra-Fine] 1 mL 31 gauge x 5/16 syringe See Rx Instructions .ROUTE .COMPLEX Qty: 100 3RF Dose Instruction: DIRECTED Rx Instructions: DIRECTED amlodipine 10 mg tablet 10 mg PO DAILY Qty: 90 3RF pantoprazole 40 mg tablet,delayed release (DR/EC) 40 mg PO DAILY Qty: 90 3RF Eliquis 5 mg tablet 5 mg PO BID Qty: 90 3RF carvedilol 12.5 mg tablet See Rx Instructions .ROUTE .COMPLEX Qty: 180 0RF Dose Instruction: TAKE 1 TABLET BY MOUTH TWICE DAILY Rx Instructions: TAKE 1 TABLET BY MOUTH TWICE DAILY clopidogrel 75 mg tablet See Rx Instructions .ROUTE .COMPLEX Qty: 90 0RF Dose Instruction: TAKE 1 TABLET BY MOUTH EVERY DAY Rx Instructions: TAKE 1 TABLET BY MOUTH EVERY DAY metoclopramide HCl 10 mg tablet 10 mg PO QID PRN (Reason: nausea and vomiting) Qty: 120 1RF bismuth subsalicylate [Pepto-Bismol] 262 mg/15 mL Suspension 524 mg PO Q1H PRN (Reason: Gastrointestinal Spasms Or Cramping) Rx Instructions: do not exceed 8 doses in a 24 hour period cholecalciferol (vitamin D3) [Vitamin D3] 25 mcg (1,000 unit) Tablet 25 mcg PO DAILY polyethylene glycol 3350 [Miralax] 17 gram powder in packet 17 g PO DAILY PRN (Reason: constipation) Qty: 14 0RF multivitamin Tablet 1 tab PO DAILY insulin glargine [Lantus U-100 Insulin] 100 unit/mL solution 30 unit SUBCUT DAILY sennosides-docusate sodium [Laxacin] 8.6-50 mg tablet 1 tab-cap PO DAILY Qty: 30 0RF guaifenesin 1,200 mg tablet extended release 12hr 1,200 mg PO BID Qty: 14 0RF albuterol sulfate 90 mcg/actuation HFA aerosol inhaler 2 inh inhalation Q6H PRN (Reason: shortness of breath or wheezing) Qty: 8.5 0RF Discontinued metformin 1,000 mg tablet 1,000 mg PO BID losartan 100 mg tablet 100 mg PO QAM Qty: 90 1RF Discharge Orders: Discharge Order (Routine); Ordered 01/20/24 Ordered By: Troy Gayle Referrals: Avtar Bruce MD [Primary Care Provider] - 4-7 days Patient Instructions: Hydralazine (By mouth), Dapagliflozin (By mouth) (Farxiga), Pulmonary Embolism (DC), Hypertension (DC), CHF Stoplight, Opioid Safety Activity Restrictions/Additional Instructions: Follow up with your primary doctor for reassessment of swollen glands in your neck and decreased hearing. Goal blood pressure of less than 140/90 mmHg. Hydralazine 3 times a day has been added to your medication list for better blood pressure control. Do not take losartan as you are already on Entresto. Bumex has been increased from 2 mg daily to 2 mg twice daily. Metformin has been discontinued and Farxiga has been started. Restrict fluid intake to less than 1500 cc, salt intake to less than 2 g daily. Advised to check his weight daily at home. Is advised that weight today would be the dry weight and if body weight increases by around 5 pounds, patient is to take an extra dose of Lasix till body weight comes down. If not able to come down to dry body weight in 1 week, then is to call cardiology office for further recommendations. Patient was counseled in detail to take medications regularly as prescribed. Discharge Attestations Time Spent in Discharge Care*: greater than 30 min Status at Discharge: Cognitive status at discharge: mildly impaired cognition , Behavioral status at discharge: cooperative , Quality Metrics Clinical Quality Measures [ No reported AMI, CVA or VTE this stay] Coding Level of Care Code 04247 Total time (in minutes) for Discharge: 55 Diagnoses Acute respiratory failure with hypoxemia J96.01 Acute exacerbation of CHF (congestive heart failure) I50.9 HTN (hypertension) I10 COPD (chronic obstructive pulmonary disease) J44.9 Atherosclerosis of coronary artery I25.10 Pulmonary embolism I26.99
== END 2024-01-21 10:34 | disposition intermediate care facility (04) | DRG 291 ==
LOC: ER 22:15 → CSU 22:34
PROVIDERS: Family Medicine; Student in an Organized Health Care Education/Training Program; Admitting Provider Internal Medicine; Emergency Provider Emergency Medicine; PCP Family Medicine; Visit Provider Internal Medicine
DX: I11.0 Hypertensive heart disease with heart failure (principal); I50.33 Acute on chronic diastolic (congestive) heart failure; J96.21 Acute and chronic respiratory failure with hypoxia; J44.1 Chronic obstructive pulmonary disease with (acute) exacerbation; N39.0 Urinary tract infection, site not specified; J91.8 Pleural effusion in other conditions classified elsewhere; J96.12 Chronic respiratory failure with hypercapnia; I25.10 Atherosclerotic heart disease of native coronary artery without angina pectoris; E11.9 Type 2 diabetes mellitus without complications; E78.5 Hyperlipidemia, unspecified; B96.1 Klebsiella pneumoniae [K. pneumoniae] as the cause of diseases classified elsewhere; Z95.5 Presence of coronary angioplasty implant and graft; Z86.711 Personal history of pulmonary embolism; Z87.891 Personal history of nicotine dependence; Z79.01 Long term (current) use of anticoagulants; Z87.440 Personal history of urinary (tract) infections; Z79.84 Long term (current) use of oral hypoglycemic drugs; Z79.4 Long term (current) use of insulin; Z99.81 Dependence on supplemental oxygen
CPT/HCPCS: 32555; 36415; 36416; 36600; 51702; 71045; 71275; 80051; 80053; 80061; 80503; 81001; 82042; 82150; 82330; 82465; 82607; 82746; 82805; 82945; 82962; 83036; 83540; 83550; 83615; 83735; 83880; 83986; 84075; 84100; 84145; 84157; 84315; 84443; 84478; 84484; 84560; 85025; 85610; 85611; 85730; 86140; 86403; 87015; 87040; 87070; 87075; 87077; 87086; 87102; 87116; 87186; 87205; 87206; 87486; 87581; 87633; 87801; 88112; 89050; 93005; 93308; 94640; 94660; 94664; 94760; 96372; 96374; 96375; 96376; 99291; A9270; J0696; J1815; J1940; J2270; J2405; J2919; J7626; J7644

== ENCOUNTER 2024-06-07 04:07 | Inpatient (IN) | payer MEDICAID, SELFPAY ==
[2024-06-07] VITALS (179 sets, daily range): BP systolic 86–187; BP diastolic 40–157; PULSE 36–118; RESP 12–24; TEMP 35.4–37.1; O2SAT 88–100; BMI 36.6
[2024-06-07] MEDS: vecuronium 10 mg SDV IVP (04:13)
--- NOTE | 2024-06-07 04:20 | ECG_ITS ---
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 Measurements Intervals [place] Rate: 57 P: 84 MS: 193 QRS: 150 QRSD: 110 T: 85 QT: 533 QTc: 521 Interpretive Statements SINUS BRADYCARDIA INDETERMINATE AXIS ANTEROSEPTAL MYOCARDIAL INFARCTION , OF INDETERMINATE AGE [40+ ms Q WAVE IN V1-V4] ST DEPRESSION, CONSIDER SUBENDOCARDIAL INJURY [0.1+ mV ST DEPRESSION] Compared to ECG 01/19/2024 09:31:40 Indeterminate axis now present ST (T wave) deviation now present Sinus rhythm no longer present Left anterior fascicular block no longer present Myocardial infarct finding still present Electronically Signed On 06-07-2024 07:38:21 CDT by Bryan Posadas M.D. [email or web address]
--- NOTE | 2024-06-07 04:22 | XRR_ITS ---
PROCEDURE INFORMATION: Exam: XR Chest Exam date and time: 06/07/2024 4:23 AM Age: 73 years old Clinical indication: EMS arrival from [facility] for resp distress. Patient intubated immediately upon arrival. ; Additional info: Hypoxic resp failure, intubated. TECHNIQUE: Imaging protocol: Radiologic exam of the chest. Views: 1 view. COMPARISON: CR XR chest 1V portable [id number] 01/17/2024 3:00 PM FINDINGS: Tubes, catheters and devices: An endotracheal tube is placed with its tip 2.9 cm from the te. A nasogastric tube is placed with its tip in the proximal stomach. Lungs: There is mild prominence and indistinctness of the pulmonary vasculature and increased interstitial opacities are seen in the mid to lower hemithoraces bilaterally, findings suggesting pulmonary edema. There are some linear opacities present in the left lung base that may represent atelectasis. Pleural spaces: Unremarkable. No pleural effusion. No pneumothorax. Heart/Mediastinum: Unremarkable. No cardiomegaly. Bones/joints: Unremarkable. XR/XR chest 1V portable [id number] IMPRESSION: 1. Endotracheal tube placed with tip 2.9 cm from the te. 2. Nasogastric tube with tip at least the proximal stomach. 3. Mild prominence and indistinctness of the pulmonary vasculature and bilateral interstitial opacities compatible with pulmonary edema. 4. Linear opacities in the left lung base may represent atelectasis.
[2024-06-07 04:26] LABS: Basophils # 0.1 10^3/uL (0.0-0.1); Basophils % 0.6 %; Eosinophils # 0.2 10^3/uL (0.0-0.8); Eosinophils % 2.5 %; Hematocrit 36.4 % (36-47); Lymphocytes # 2.5 10^3/uL (0.8-4.8); Lymphocytes % 26.4 %; Mean Corpuscular HGB Conc 30.8 g/dL (30-55); Mean Corpuscular Hemoglobin 27.1 pg (27-33); Mean Corpuscular Volume 87.9 fl (85-98); Mean Platelet Volume 9.7 fL (7.4-10.4); Monocytes # 0.8 10^3/uL (0.2-0.9); Monocytes % 8.3 %; Neutrophils # 5.72 10^3/uL (1.8-7.7); Neutrophils % 61.8 %; Nucleated Red Blood Cells % 0 %; Platelet Count 299 10^3/cmm (157-399); Red Blood Count 4.14 10^6/uL (3.85-5.65); Red Cell Distribution Width 14.2 % (12.1-15.1); White Blood Count 9.27 10^3/uL (3.29-11.43)
[2024-06-07] MEDS: etomidate 2 mg/mL INJ SDV 10 mL 10 MG IVP (04:28)
[2024-06-07] MEDS: propofol 1,000 MG/100 ML INJ 2.99 MG IV (04:29)
[2024-06-07] MEDS: piperacillin-tazobactam 3.375 GM in sodium chloride 0.9% (plus) 50 ML IV ×3 (04:38→17:33)
[2024-06-07] MEDS: FUROsemide 10 mg/mL SDV 10mL 80 MG IVP (04:38)
[2024-06-07 04:48] LABS: ABG PCO2 58.2 mmHg (35-45); ABG PH Result 7.27 (7.35-7.45); Arterial Blood Gas Hematocrit 33.6 % (37-47); Base Excess ABG -0.8 mmol/L (-2.0-2.0); Blood Gas Allen Test Pos; Blood Gas Operator Identificat gerca; Blood Gas Sample Site Radial, left; Blood Gas Sample Type Arterial; Carboxyhemoglobin 0.2 %THgb (0.4-20.1); HCO3 ABG 26.8 mmol/L (22-26); HGB O2 Sat 96.9 % (95-100); Methemoglobin 1.7 % (0.4-1.5); Oxygen Device VENT; PO2 FiO2 Ratio Arterial Blood 262
[2024-06-07 04:49] LABS: Alanine Aminotransferase 7 U/L (0-33); Albumin Level 3.6 g/dL (3.5-5.2); Alkaline Phosphatase 93 U/L (35-105); Anion Gap 18.9 (5-19); Aspartate Amino Transferase 14 U/L (0-32); Blood Urea Nitrogen 30 mg/dL (8-23); Calcium 8.8 mg/dL (8.5-10.5); Carbon Dioxide 23 mmol/L (22-29); Chloride 95 mmol/L (98-107); Globulin 3.5 g/dL (1.3-4.6); Glucose 332 mg/dL (65-115); Magnesium 2.2 mg/dL (1.7-2.3); Osmolality Calculated 295 mOsm/kg (285-295); Potassium 3.9 mmol/L (3.5-5.1); Sodium 133 mmol/L (136-145); Total Bilirubin 0.3 mg/dL (0.15-1.2); Total Protein 7.1 g/dL (6.6-8.7)
[2024-06-07 05:00] LABS: NT Pro B Type Natriuretic Pept 1923 pg/mL (0-125)
--- NOTE | 2024-06-07 05:05 | CTR_ITS ---
PROCEDURE INFORMATION: Exam: CT Head Without Contrast Exam date and time: 06/07/2024 5:59 AM Age: 73 years old Clinical indication: Altered mental status/memory loss; EMS arrival for hypoxic resp failure. Intubated immediately upon arrival. Dimer of 0.80. Central line and og in place. ; Additional info: AMS TECHNIQUE: Imaging protocol: Computed tomography of the head without contrast. Radiation optimization: All CT scans at this facility use at least one of these dose optimization techniques: automated exposure control; mA and/or kV adjustment per patient size (includes targeted exams where dose is matched to clinical indication); or iterative reconstruction. COMPARISON: CT head wo con* [id number] 03/21/2023 8:54 PM RADIATION DOSE METRICS: Total DLP (mGy-cm): 1079.35 FINDINGS: Brain: Small area of encephalomalacia in the left parietal lobe consistent with remote infarct. There is generalized brain atrophy. Andino-white differentiation is otherwise preserved. Amorphous lucency is present in the supratentorial white matter bilaterally. No evidence of intracranial hemorrhage or mass effect. Cerebral ventricles: No ventriculomegaly. Paranasal sinuses: Mild mucoperiosteal thickening in the ethmoid and maxillary sinuses. No fluid levels. Mastoid air cells: Visualized mastoid air cells are well aerated. Bones: Unremarkable. No acute fracture. Soft tissues: Unremarkable. CT/CT head wo con* [id number] IMPRESSION: 1. Cerebral atrophy and chronic cerebral microvascular disease. 2. No evidence of acute intracranial process.
--- NOTE | 2024-06-07 05:05 | CTR_ITS ---
PROCEDURE INFORMATION: Exam: CTA Chest With Contrast Exam date and time: 06/07/2024 6:02 AM Age: 73 years old Clinical indication: Abnormal findings; Abnormal diagnostic tests; Elevated d-dimer; EMS arrival for hypoxic resp failure. Intubated immediately upon arrival. Dimer of 0.80. Central line and og in place. ; Additional info: Hypoxic resp failure, elevated d-dimer TECHNIQUE: Imaging protocol: Computed tomographic angiography of the chest with contrast. Exam focused on the arteries. 3D rendering (Not supervised by radiologist): MIP and/or 3D reconstructed images were created by the technologist. Radiation optimization: All CT scans at this facility use at least one of these dose optimization techniques: automated exposure control; mA and/or kV adjustment per patient size (includes targeted exams where dose is matched to clinical indication); or iterative reconstruction. Contrast material: OMNI 350; Contrast volume: 50 ml; Contrast route: INTRAVENOUS (IV); COMPARISON: CT angio chest PE protcl [id number] 01/15/2024 9:36 PM RADIATION DOSE METRICS: Total DLP (mGy-cm): 436.61 FINDINGS: Tubes, catheters and devices: A nasogastric tube is placed with its tip in the proximal stomach. An endotracheal tube is placed its tip 18.9 mm proximally 11 mm from the te. Pulmonary arteries: Normal. No pulmonary emboli. Aorta: Unremarkable. No aortic aneurysm. No aortic dissection. Lungs: Patchy opacities are seen adjacent to the major fissures bilaterally and within the posterior kira thoraces likely representing dependent atelectasis. Superimposed infiltrates and pneumonia can not be entirely excluded. Pleural spaces: Unremarkable. No pneumothorax. No pleural effusion. Heart: Unremarkable. No cardiomegaly. No pericardial effusion. Lymph nodes: Unremarkable. No enlarged lymph nodes. Bones/joints: Unremarkable. No acute fracture. Soft tissues: Unremarkable. CT/CT angio chest PE protcl [id number] IMPRESSION: 1. There is no evidence for pulmonary emboli. 2. Patchy opacities are seen adjacent to the major fissures bilaterally and within the posterior kira thoraces likely representing dependent atelectasis. However superimposed infiltrates and pneumonia can not be excluded in the appropriate clinical setting. 3. Endotracheal tube tip 11 mm from the te. 4. Nasogastric tube tip in proximal stomach
--- NOTE | 2024-06-07 05:07 | W.ED.SOB ---
Documented by User: Anatoly Liang MD 06/07/24 06:02 HPI - SOB/Dyspnea General: Chief Complaint: Shortness of Breath/Dyspnea Stated Complaint: Resp Distress Time Seen by Provider: 06/07/24 04:21 Source: EMS Mode of arrival: EMS Limitations: altered mental status History of Present Illness: HPI Narrative: Patient arrives in acute respiratory distress, GCS 3, reportedly found to be altered/[facility]conscious [facility] she [facility]. No other known history. Related Data Home Medications ?Medication ?Instructions ?Recorded ?Confirmed acetaminophen 500 mg capsule 1,000 mg PO Q8H PRN Pain 02/01/23 06/07/24 insulin glargine 100 unit/mL 20 unit SUBCUT DAILY 03/22/23 06/07/24 subcutaneous solution (Lantus U-100 Insulin) insulin lispro 100 unit/mL 5 unit SUBCUT .sliding scale 05/18/23 06/07/24 subcutaneous pen (Humalog KwikPen (U-100) Insulin) sacubitril 49 mg-valsartan 51 mg 1 tab PO BID 12/28/23 06/07/24 tablet (Entresto) amlodipine 10 mg tablet (Norvasc) 10 mg PO DAILY 06/07/24 06/07/24 bumetanide 1 mg tablet 1 mg PO Q24H 06/07/24 06/07/24 bumetanide 2 mg tablet 2 mg PO BID 06/07/24 06/07/24 calcium 500 mg (as 1 tab PO DAILY 06/07/24 06/07/24 carbonate)-vitamin D3 5 mcg (200 unit) tablet (Oyster Shell Calcium-Vitamin D3) carvedilol 25 mg tablet 25 mg PO BID 06/07/24 06/07/24 clopidogrel 75 mg tablet 75 mg PO DAILY 06/07/24 06/07/24 ondansetron HCl 4 mg tablet 4 mg PO Q6H PRN Nausea And Vomiting 06/07/24 06/07/24 polyethylene glycol 3350 17 17 g PO DAILY 06/07/24 06/07/24 gram/dose oral powder tiotropium bromide 2.5 2 puff inhalation DAILY 06/07/24 06/07/24 mcg/actuation mist for inhalation (Spiriva Respimat) tramadol 50 mg tablet 100 mg PO BID 06/07/24 06/07/24 Previous Rx's ?Medication ?Instructions ?Recorded apixaban 5 mg tablet (Eliquis) 5 mg PO BID #90 tabs 03/15/23 pantoprazole 40 mg tablet,delayed 40 mg PO DAILY for stomach #90 tabs 03/15/23 release albuterol sulfate 90 mcg/actuation 2 inh inhalation Q6H PRN shortness 07/17/23 aerosol inhaler of breath or wheezing #8.5 grams dapagliflozin propanediol 10 mg 10 mg PO DAILY #30 tabs 01/20/24 tablet (Farxiga) hydralazine 25 mg tablet 25 mg PO TID #90 tabs 01/20/24 Allergies Allergy/AdvReac Type Severity Reaction Status Date / Time codeine Allergy Unknown ADR-Diarrhe Verified 12/28/23 10:58 a tetanus and diphtheria Allergy Unknown Unknown Verified 12/28/23 10:58 toxoids atorvastatin Allergy ADR-Faintin Verified 12/28/23 10:58 g Review of Systems General: Reports: ROS unobtainable due to medical condition and ROS unobtainable due to mental status [facility] ED PFSH: Medical History Atherosclerosis of coronary artery Fracture, intertrochanteric, left femur Left radial head fracture Open fracture of distal ends of both radius and ulna Hearing loss Gastroparesis Orthostasis Supplemental oxygen dependent Failure to thrive in adult Hyperglycemia Anemia Hyponatremia Nausea & vomiting Dilation of pulmonary artery GERD (gastroesophageal reflux disease) Restless leg syndrome Presence of stent in coronary artery in patient with coronary artery disease Heart failure with preserved ejection fraction Altered mental status Diabetes CHF (congestive heart failure) Hyperlipidemia Pulmonary embolism DKA (diabetic ketoacidosis) Hypertensive urgency DM type 2 (diabetes mellitus, type 2) Arthritis Asthma HTN (hypertension) Small bowel mass Surgical History Hx of cholecystectomy Family History Other Cancer Stroke Social History Smoking and tobacco/nicotine status: never used tobacco/nicotine Alcohol intake: never Substance/Drug Use: never Lives independently: Yes Household members: none Marital status: / Physical Exam Const: COMMON NORMALS: average body habitus and well nourished GENERAL APPEARANCE: well kempt and well developed OTHER: GCS 3 HENMT: COMMON NORMALS: normocephalic, atraumatic and external ears normal HEAD & SCALP: normocephalic and atraumatic EXTERNAL EAR: Yes external ears normal Eye: COMMON NORMALS: Equal, round and reactive pupils present, EOMs intact bilaterally and conjunctivae normal CONJUNCTIVA: Yes conjunctivae normal PUPIL: Yes Equal, round and reactive pupils present Neck/C-Spine: COMMON NORMALS: no lymphadenopathy and supple Chest: CHEST: Yes Symmetrical chest wall rise and No Surgical scars present (Chest) Resp: OTHER: Spontaneous breaths, shallow volumes, tachypneic arrives with oxygen of 79% on CPAP. Cardio: COMMON NORMALS: regular rate, regular rhythm, S1 normal heart sound present, S2 normal heart sound present, No gallops present (Cardio), No clicks present (Cardio), No murmurs present (Cardio) and No rub (Cardio) JUGULAR VENOUS DISTENTION: JVD RATE: regular rate RHYTHM: regular rhythm HEART SOUNDS: S1 normal heart sound present, S2 normal heart sound present and no murmurs PERIPHERAL PULSES: other (Radial pulses 2+ and symmetric) GI: COMMON NORMALS: Soft to palpation and no masses INSPECTION: No abdominal distension PALPATION: Yes Soft to palpation, No Guarding due to palpation present (GI) and No Rebound tenderness present : EXTERNAL FEMALE EXAM: Yes normal appearance of the urethra Extremity: COMMON NORMALS: normal to inspection, full ROM, capillary refill normal and no clubbing, cyanosis or edema GENERAL: Yes edema (Bilateral lower extremities) Psych: APPEARANCE: Yes well kempt Skin: COMMON NORMALS: no wounds, turgor normal and no jaundice GENERAL SKIN EXAM: turgor normal Procedures ABG Interpretation ABG Interpretation 1: ABG Results: Initial ABG with 210 pO2 however 58 pCO2 with a pH of 7.22 Interpretation: respiratory acidosis Central Line Placement Left IJ: Patient Placed on Monitor/Pulse Ox: Yes MD Prep: mask, gown and gloves Central Line Prep: Chlorhexidine scrub and sterile drapes applied Ultrasound Used for Placement: Yes (dynamic) Central Line Lumen Inserted: triple Post Procedure: sutured in place, good blood return, all ports aspirated, flushed, capped and sterile dressing applied Post Procedure X-Ray: tip of catheter in good position and no pneumothorax seen Patient Tolerated Procedure: well Complications: none Additional Comments: Triple-lumen 7 [place] CVL with a 20 cm length secured by bumper at 18 cm the patient. Intubation sedative: Etomidate Mg Given: 10 paralytic: Vecuronium Mg Given: 10 Laryngoscope: fiber optic video scope ET Tube Size: 7.5 ET Tube Uncuffed: No Tube Secured Depth (cm): 23 Tube Secured Location: lips Tube Placement Confirmation: visualized tube passing through cords, equal breath sounds bilaterally, no breath sounds over epigastrium and confirmation by capnometry Patient Tolerated Procedure: well Intubation Complications: none Course ED course: Patient lidocaine back for pressure is currently 86 systolic. Will give 1 L fluid bolus, prep to start nor epi. Will place a central line in patient's IJ. Holding off on the 30ml/kg for sepsis as we have no current source of infection and patient has a history of CHF. Patient having bouts of hypotension possibly mediated by the profile. Central and placed in the left IJ for the ability to start Levophed if needed. Elevated D-dimer so getting CTA. Currently undifferentiated reason for hypercapnic and hypoxic respiratory failure history of COPD and CHF. X-rays not show any significant pulmonary edema. ET tube is in good position. OG tube is in good position. Lactic acid was elevated at 4, no current source of infection, urine test is pending. ABG has been checked and that has been titrated and managed by ED physician. Currently tidal 450 which is approximately 8/kg of ideal body weight rate of 18 PEEP of 5 and FiO2 of 40% achieving a minute volume of 7.7. Currently wait for the results and we handing off patient due to shift change. Vital Signs: Vital signs: Vital Signs Temperature 95.7 F L 06/07/24 04:40 Pulse Rate 50 L 06/07/24 07:31 Respiratory Rate 18 06/07/24 07:31 Blood Pressure 121/61 06/07/24 07:31 Pulse Oximetry 97 06/07/24 07:31 Oxygen Delivery Me thod Mechanical Ventil ation 06/07/24 07:31 Oxygen Flow Rate 100 06/07/24 04:21 Fraction of Inspir ed Oxygen 40 06/07/24 06:45 MDM - SOB/Dyspnea Medical Decision Making pending at shift change Lab Data 06/07/24 04:15 06/07/24 04:15 Labs/Radiology: Radiology Impressions Chest CTA 06/07/24 05:05 IMPRESSION: 1. There is no evidence for pulmonary emboli. 2. Patchy opacities are seen adjacent to the major fissures bilaterally and within the posterior kira thoraces likely representing dependent atelectasis. However superimposed infiltrates and pneumonia can not be excluded in the appropriate clinical setting. 3. Endotracheal tube tip 11 mm from the te. 4. Nasogastric tube tip in proximal stomach Head CT 06/07/24 05:05 IMPRESSION: 1. Cerebral atrophy and chronic cerebral microvascular disease. 2. No evidence of acute intracranial process. Chest X-Ray 06/07/24 05:24 IMPRESSION: 1. A left internal jugular vein central venous line is been placed with its tip at the level of the superior cavoatrial junction. 2. Otherwise stable life support tubing 3. Findings suggesting continued pulmonary edema. 4. Strandy linear opacities in the left lung base likely represents atelectasis. Laboratory Results WBC 9.27 10^3/uL (3.29-11.43) 06/07/24 04:15 RBC 4.14 10^6/uL (3.85-5.65) 06/07/24 04:15 Hgb 11.20 g/dL (11.27-16.99) L 06/07/24 04:15 Hct 36.4 % (36-47) 06/07/24 04:15 MCV 87.9 fl (85-98) 06/07/24 04:15 MCH 27.1 pg (27-33) 06/07/24 04:15 MCHC 30.8 g/dL (30-55) 06/07/24 04:15 RDW 14.2 % (12.1-15.1) 06/07/24 04:15 Plt Count 299 10^3/cmm (157-399) 06/07/24 04:15 MPV 9.7 fL (7.4-10.4) 06/07/24 04:15 Neut % (Auto) 61.8 % 06/07/24 04:15 Lymph % (Auto) 26.4 % 06/07/24 04:15 [place] % (Auto) 8.3 % 06/07/24 04:15 Eos % (Auto) 2.5 % 06/07/24 04:15 Baso % (Auto) 0.6 % 06/07/24 04:15 Neut # (Auto) 5.72 10^3/uL (1.8-7.7) 06/07/24 04:15 Lymph # (Auto) 2.5 10^3/uL (0.8-4.8) 06/07/24 04:15 [place] # (Auto) 0.8 10^3/uL (0.2-0.9) 06/07/24 04:15 Eos # (Auto) 0.2 10^3/uL (0.0-0.8) 06/07/24 04:15 Baso # (Auto) 0.1 10^3/uL (0.0-0.1) 06/07/24 04:15 Nucleated RBC % (auto) 0 % 06/07/24 04:15 Nucleated RBCs # 0.0 /100WBC 06/07/24 04:15 D-Dimer 0.80 ug/mLFEU (0-0.59) H 06/07/24 04:15 Specimen Type Arterial 06/07/24 04:34 Sample Site Radial, left 06/07/24 04:34 ABG pH 7.27 (7.35-7.45) L 06/07/24 04:34 ABG pCO2 58.2 mmHg (35-45) H 06/07/24 04:34 ABG pO2 210.0 mmHg (80.0-100.0) H 06/07/24 04:34 ABG PO2/FiO2 Ratio 262 06/07/24 04:34 ABG HCO3 26.8 mmol/L (22-26) H 06/07/24 04:34 ABG Base Excess -0.8 mmol/L (-2.0-2.0) 06/07/24 04:34 Stephen Test Pos 06/07/24 04:34 Hematocrit 33.6 % (37-47) L 06/07/24 04:34 Hgb O2 Saturation 96.9 % (95-100) 06/07/24 04:34 Carboxyhemoglobin 0.2 %THgb (0.4-20.1) L 06/07/24 04:34 Methemoglobin 1.7 % (0.4-1.5) H 06/07/24 04:34 Total Hemoglobin 11.0 g/dL (12-16) L 06/07/24 04:34 O2 Delivery Device Vent 06/07/24 04:34 FiO2 80.0 % 06/07/24 04:34 Tidal Volume 0.40 06/07/24 04:34 PEEP 8.0 cmH20 06/07/24 04:34 Emotional Support Teacher ID [email or web address] 06/07/24 04:34 Sodium 133 mmol/L (136-145) L 06/07/24 04:15 Potassium 3.9 mmol/L (3.5-5.1) 06/07/24 04:15 Chloride 95 mmol/L (98-107) L 06/07/24 04:15 Carbon Dioxide 23 mmol/L (22-29) 06/07/24 04:15 Anion Gap 18.9 (5-19) 06/07/24 04:15 BUN 30 mg/dL (8-23) H 06/07/24 04:15 Creatinine 1.2 mg/dL (0.5-0.9) H 06/07/24 04:15 GFR Calculation Not Reportable 06/07/24 04:15 Glucose 332 mg/dL (65-115) H 06/07/24 04:15 POC Glucose 419 mg/dL (70-110) H 06/07/24 07:06 Calculated Osmolality 295 mOsm/kg (285-295) 06/07/24 04:15 Lactic Acid 4.0 mmol/L (0.5-2.2) H 06/07/24 04:15 Calcium 8.8 mg/dL (8.5-10.5) 06/07/24 04:15 Magnesium 2.2 mg/dL (1.7-2.3) 06/07/24 04:15 Total Bilirubin 0.3 mg/dL (0.15-1.2) 06/07/24 04:15 AST 14 U/L (0-32) 06/07/24 04:15 ALT 7 U/L (0-33) 06/07/24 04:15 Alkaline Phosphatase 93 U/L (35-105) 06/07/24 04:15 Troponin T Baseline 15 ng/L (0-10) H 06/07/24 04:15 Troponin T 120 Minute 40.14 ng/L (0-10) H 06/07/24 06:22 Delta Troponin T 25.14 ABS# (0-10) H* 06/07/24 06:22 NT-Pro-B Natriuret Pep 1923 pg/mL (0-125) H 06/07/24 04:15 Total Protein 7.1 g/dL (6.6-8.7) 06/07/24 04:15 Albumin 3.6 g/dL (3.5-5.2) 06/07/24 04:15 Globulin 3.5 g/dL (1.3-4.6) 06/07/24 04:15 Urine Color Yellow (Yellow) 06/07/24 06:21 Urine Appearance Cloudy (CLEAR) A 06/07/24 06:21 Urine pH 5.5 (5-7) 06/07/24 06:21 Ur Specific [place] 1.014 (1.005-1.030) 06/07/24 06:21 Urine Protein 1+ (Negative) A 06/07/24 06:21 Urine Glucose (UA) 3+ (Normal) H 06/07/24 06:21 Urine Ketones Negative (Negative) 06/07/24 06:21 Urine Blood Trace (Negative) A 06/07/24 06:21 Urine Nitrate Negative (Negative) 06/07/24 06:21 Urine Bilirubin Negative (Negative) 06/07/24 06:21 Urine Urobilinogen 0.2 mg/dL (Negative) 06/07/24 06:21 Ur Leukocyte Esterase Trace (Negative) A 06/07/24 06:21 Urine RBC 0-2 /hpf (0-2) 06/07/24 06:21 Urine WBC 11-20 /hpf (0-5) H 06/07/24 06:21 Ur Squamous Epith Cells 0-5 /hpf (0-5) 06/07/24 06:21 Amorphous Sediment Not Reportable 06/07/24 06:21 Urine Bacteria 4+ /hpf (NONE) H 06/07/24 06:21 Hyaline Casts 5.77 /lpf 06/07/24 06:21 Influenza A (PCR) Negative (Negative) 06/07/24 04:22 Influenza Type B (PCR) Negative (Negative) 06/07/24 04:22 RSV (PCR) Negative (Negative) 06/07/24 04:22 SARS-CoV-2 (PCR) Negative (Negative) 06/07/24 04:22 XR interpretation done by ED provider, pending radiology final review (see ED course) Critical Care Time Critical Care Time: Critical Care Time: Yes Total Critical Care Time: 45 Attestation: This case had a high probability of a clinically significant, sudden, or life threatening deterioration of this patient's condition which required my full and direct attention, intervention and personal management. Discharge Plan Discharge Patient Disposition: Admitted As Inpatient Clinical Impression: Charles coma scale score 3-8, at arrival to emergency department, Acute and chronic respiratory failure with hypoxia, Acute and chronic respiratory failure with hypercapnia, Bradycardia, Elevated lactic acid level, D-dimer, elevated, Acute respiratory acidosis Condition: Stable Prescriptions: No Action acetaminophen 500 mg capsule 1,000 mg PO Q8H PRN (Reason: Pain) insulin lispro [Humalog KwikPen Insulin] 100 unit/mL insulin pen 5 unit SUBCUT .sliding scale Rx Instructions: per sliding scale 150-200=3 201-250=5 251-3600=7 301-350=9 351-400=11 TID PER SLIDING SCALE Entresto 49-51 mg tablet 1 tab PO BID pantoprazole 40 mg tablet,delayed release (DR/EC) 40 mg PO DAILY Qty: 90 3RF Eliquis 5 mg tablet 5 mg PO BID Qty: 90 3RF insulin glargine [Lantus U-100 Insulin] 100 unit/mL solution 20 unit SUBCUT DAILY albuterol sulfate 90 mcg/actuation HFA aerosol inhaler 2 inh inhalation Q6H PRN (Reason: shortness of breath or wheezing) Qty: 8.5 0RF dapagliflozin propanediol [Farxiga] 10 mg tablet 10 mg PO DAILY Qty: 30 0RF hydralazine 25 mg tablet 25 mg PO TID Qty: 90 0RF carvedilol 25 mg Tablet 25 mg PO BID Rx Instructions: must administer with a meal/food bumetanide 2 mg Tablet 2 mg PO BID ondansetron HCl 4 mg Tablet 4 mg PO Q6H PRN (Reason: Nausea And Vomiting) amlodipine [Norvasc] 10 mg Tablet 10 mg PO DAILY bumetanide [Bumex] 1 mg Tablet 1 mg PO Q24H Rx Instructions: IF WEIGHT IS >220 calcium carbonate-vitamin D3 [Oyster Shell Calcium-Vit D3] 500 mg-5 mcg (200 unit) Tablet 1 tab PO DAILY Spiriva Respimat 2.5 mcg/actuation Mist 2 puff INHALATION DAILY clopidogrel 75 mg tablet 75 mg PO DAILY Rx Instructions: TAKE 1 TABLET BY MOUTH EVERY DAY polyethylene glycol 3350 [GlycoLax] 17 gram/dose Powder 17 g PO DAILY tramadol 50 mg Tablet 100 mg PO BID Referrals: Avtar Bruce MD [Primary Care Provider] - Print Language: Citizen [place] Coding Level of Care Code ED Quality Assurance Specialist for Chg Fwd Documented by User: Jie Olson MD 06/07/24 07:47 HPI - SOB/Dyspnea General: Chief Complaint: Shortness of Breath/Dyspnea Stated Complaint: Resp Distress Time Seen by Provider: 06/07/24 04:21 Related Data Home Medications ?Medication ?Instructions ?Recorded ?Confirmed acetaminophen 500 mg capsule 1,000 mg PO Q8H PRN Pain 02/01/23 06/07/24 insulin glargine 100 unit/mL 20 unit SUBCUT DAILY 03/22/23 06/07/24 subcutaneous solution (Lantus U-100 Insulin) insulin lispro 100 unit/mL 5 unit SUBCUT .sliding scale 05/18/23 06/07/24 subcutaneous pen (Humalog KwikPen (U-100) Insulin) sacubitril 49 mg-valsartan 51 mg 1 tab PO BID 12/28/23 06/07/24 tablet (Entresto) amlodipine 10 mg tablet (Norvasc) 10 mg PO DAILY 06/07/24 06/07/24 bumetanide 1 mg tablet 1 mg PO Q24H 06/07/24 06/07/24 bumetanide 2 mg tablet 2 mg PO BID 06/07/24 06/07/24 calcium 500 mg (as 1 tab PO DAILY 06/07/24 06/07/24 carbonate)-vitamin D3 5 mcg (200 unit) tablet (Oyster Shell Calcium-Vitamin D3) carvedilol 25 mg tablet 25 mg PO BID 06/07/24 06/07/24 clopidogrel 75 mg tablet 75 mg PO DAILY 06/07/24 06/07/24 ondansetron HCl 4 mg tablet 4 mg PO Q6H PRN Nausea And Vomiting 06/07/24 06/07/24 polyethylene glycol 3350 17 17 g PO DAILY 06/07/24 06/07/24 gram/dose oral powder tiotropium bromide 2.5 2 puff inhalation DAILY 06/07/24 06/07/24 mcg/actuation mist for inhalation (Spiriva Respimat) tramadol 50 mg tablet 100 mg PO BID 06/07/24 06/07/24 Previous Rx's ?Medication ?Instructions ?Recorded apixaban 5 mg tablet (Eliquis) 5 mg PO BID #90 tabs 03/15/23 pantoprazole 40 mg tablet,delayed 40 mg PO DAILY for stomach #90 tabs 03/15/23 release albuterol sulfate 90 mcg/actuation 2 inh inhalation Q6H PRN shortness 07/17/23 aerosol inhaler of breath or wheezing #8.5 grams dapagliflozin propanediol 10 mg 10 mg PO DAILY #30 tabs 01/20/24 tablet (Farxiga) hydralazine 25 mg tablet 25 mg PO TID #90 tabs 01/20/24 Allergies Allergy/AdvReac Type Severity Reaction Status Date / Time codeine Allergy Unknown ADR-Diarrhe Verified 12/28/23 10:58 a tetanus and diphtheria Allergy Unknown Unknown Verified 12/28/23 10:58 toxoids atorvastatin Allergy ADR-Faintin Verified 12/28/23 10:58 g PFSH ED PFSH: Medical History Atherosclerosis of coronary artery Fracture, intertrochanteric, left femur Left radial head fracture Open fracture of distal ends of both radius and ulna Hearing loss Gastroparesis Orthostasis Supplemental oxygen dependent Failure to thrive in adult Hyperglycemia Anemia Hyponatremia Nausea & vomiting Dilation of pulmonary artery GERD (gastroesophageal reflux disease) Restless leg syndrome Presence of stent in coronary artery in patient with coronary artery disease Heart failure with preserved ejection fraction Altered mental status Diabetes CHF (congestive heart failure) Hyperlipidemia Pulmonary embolism DKA (diabetic ketoacidosis) Hypertensive urgency DM type 2 (diabetes mellitus, type 2) Arthritis Asthma HTN (hypertension) Small bowel mass Surgical History Hx of cholecystectomy Family History Other Cancer Stroke Social History Smoking and tobacco/nicotine status: never used tobacco/nicotine Alcohol intake: never Substance/Drug Use: never Lives independently: Yes Household members: none Marital status: / Course Vital Signs: Vital signs: Vital Signs Temperature 95.7 F L 06/07/24 04:40 Pulse Rate 50 L 06/07/24 07:31 Respiratory Rate 18 06/07/24 07:31 Blood Pressure 121/61 06/07/24 07:31 Pulse Oximetry 97 06/07/24 07:31 Oxygen Delivery Me thod Mechanical Ventil ation 06/07/24 07:31 Oxygen Flow Rate 100 06/07/24 04:21 Fraction of Inspir ed Oxygen 40 06/07/24 06:45 MDM - SOB/Dyspnea Medical Decision Making pending at shift change Took care of her from previous physician patient had respiratory failure had been intubated she is pending CT scan showed atelectasis versus infiltrates she has been on antibiotics I spoke to hospitalist will admit to ICU Medical Records I reviewed the patient's medical records. Lab Data I reviewed the patient's lab results. 06/07/24 04:15 06/07/24 04:15 Labs/Radiology: Radiology Impressions Chest CTA 06/07/24 05:05 IMPRESSION: 1. There is no evidence for pulmonary emboli. 2. Patchy opacities are seen adjacent to the major fissures bilaterally and within the posterior kira thoraces likely representing dependent atelectasis. However superimposed infiltrates and pneumonia can not be excluded in the appropriate clinical setting. 3. Endotracheal tube tip 11 mm from the te. 4. Nasogastric tube tip in proximal stomach Head CT 06/07/24 05:05 IMPRESSION: 1. Cerebral atrophy and chronic cerebral microvascular disease. 2. No evidence of acute intracranial process. Chest X-Ray 06/07/24 05:24 IMPRESSION: 1. A left internal jugular vein central venous line is been placed with its tip at the level of the superior cavoatrial junction. 2. Otherwise stable life support tubing 3. Findings suggesting continued pulmonary edema. 4. Strandy linear opacities in the left lung base likely represents atelectasis. Laboratory Results WBC 9.27 10^3/uL (3.29-11.43) 06/07/24 04:15 RBC 4.14 10^6/uL (3.85-5.65) 06/07/24 04:15 Hgb 11.20 g/dL (11.27-16.99) L 06/07/24 04:15 Hct 36.4 % (36-47) 06/07/24 04:15 MCV 87.9 fl (85-98) 06/07/24 04:15 MCH 27.1 pg (27-33) 06/07/24 04:15 MCHC 30.8 g/dL (30-55) 06/07/24 04:15 RDW 14.2 % (12.1-15.1) 06/07/24 04:15 Plt Count 299 10^3/cmm (157-399) 06/07/24 04:15 MPV 9.7 fL (7.4-10.4) 06/07/24 04:15 Neut % (Auto) 61.8 % 06/07/24 04:15 Lymph % (Auto) 26.4 % 06/07/24 04:15 [place] % (Auto) 8.3 % 06/07/24 04:15 Eos % (Auto) 2.5 % 06/07/24 04:15 Baso % (Auto) 0.6 % 06/07/24 04:15 Neut # (Auto) 5.72 10^3/uL (1.8-7.7) 06/07/24 04:15 Lymph # (Auto) 2.5 10^3/uL (0.8-4.8) 06/07/24 04:15 [place] # (Auto) 0.8 10^3/uL (0.2-0.9) 06/07/24 04:15 Eos # (Auto) 0.2 10^3/uL (0.0-0.8) 06/07/24 04:15 Baso # (Auto) 0.1 10^3/uL (0.0-0.1) 06/07/24 04:15 Nucleated RBC % (auto) 0 % 06/07/24 04:15 Nucleated RBCs # 0.0 /100WBC 06/07/24 04:15 D-Dimer 0.80 ug/mLFEU (0-0.59) H 06/07/24 04:15 Specimen Type Arterial 06/07/24 04:34 Sample Site Radial, left 06/07/24 04:34 ABG pH 7.27 (7.35-7.45) L 06/07/24 04:34 ABG pCO2 58.2 mmHg (35-45) H 06/07/24 04:34 ABG pO2 210.0 mmHg (80.0-100.0) H 06/07/24 04:34 ABG PO2/FiO2 Ratio 262 06/07/24 04:34 ABG HCO3 26.8 mmol/L (22-26) H 06/07/24 04:34 ABG Base Excess -0.8 mmol/L (-2.0-2.0) 06/07/24 04:34 Stephen Test Pos 06/07/24 04:34 Hematocrit 33.6 % (37-47) L 06/07/24 04:34 Hgb O2 Saturation 96.9 % (95-100) 06/07/24 04:34 Carboxyhemoglobin 0.2 %THgb (0.4-20.1) L 06/07/24 04:34 Methemoglobin 1.7 % (0.4-1.5) H 06/07/24 04:34 Total Hemoglobin 11.0 g/dL (12-16) L 06/07/24 04:34 O2 Delivery Device Vent 06/07/24 04:34 FiO2 80.0 % 06/07/24 04:34 Tidal Volume 0.40 06/07/24 04:34 PEEP 8.0 cmH20 06/07/24 04:34 Emotional Support Teacher ID [email or web address] 06/07/24 04:34 Sodium 133 mmol/L (136-145) L 06/07/24 04:15 Potassium 3.9 mmol/L (3.5-5.1) 06/07/24 04:15 Chloride 95 mmol/L (98-107) L 06/07/24 04:15 Carbon Dioxide 23 mmol/L (22-29) 06/07/24 04:15 Anion Gap 18.9 (5-19) 06/07/24 04:15 BUN 30 mg/dL (8-23) H 06/07/24 04:15 Creatinine 1.2 mg/dL (0.5-0.9) H 06/07/24 04:15 GFR Calculation Not Reportable 06/07/24 04:15 Glucose 332 mg/dL (65-115) H 06/07/24 04:15 POC Glucose 419 mg/dL (70-110) H 06/07/24 07:06 Calculated Osmolality 295 mOsm/kg (285-295) 06/07/24 04:15 Lactic Acid 4.0 mmol/L (0.5-2.2) H 06/07/24 04:15 Calcium 8.8 mg/dL (8.5-10.5) 06/07/24 04:15 Magnesium 2.2 mg/dL (1.7-2.3) 06/07/24 04:15 Total Bilirubin 0.3 mg/dL (0.15-1.2) 06/07/24 04:15 AST 14 U/L (0-32) 06/07/24 04:15 ALT 7 U/L (0-33) 06/07/24 04:15 Alkaline Phosphatase 93 U/L (35-105) 06/07/24 04:15 Troponin T Baseline 15 ng/L (0-10) H 06/07/24 04:15 Troponin T 120 Minute 40.14 ng/L (0-10) H 06/07/24 06:22 Delta Troponin T 25.14 ABS# (0-10) H* 06/07/24 06:22 NT-Pro-B Natriuret Pep 1923 pg/mL (0-125) H 06/07/24 04:15 Total Protein 7.1 g/dL (6.6-8.7) 06/07/24 04:15 Albumin 3.6 g/dL (3.5-5.2) 06/07/24 04:15 Globulin 3.5 g/dL (1.3-4.6) 06/07/24 04:15 Urine Color Yellow (Yellow) 06/07/24 06:21 Urine Appearance Cloudy (CLEAR) A 06/07/24 06:21 Urine pH 5.5 (5-7) 06/07/24 06:21 Ur Specific [place] 1.014 (1.005-1.030) 06/07/24 06:21 Urine Protein 1+ (Negative) A 06/07/24 06:21 Urine Glucose (UA) 3+ (Normal) H 06/07/24 06:21 Urine Ketones Negative (Negative) 06/07/24 06:21 Urine Blood Trace (Negative) A 06/07/24 06:21 Urine Nitrate Negative (Negative) 06/07/24 06:21 Urine Bilirubin Negative (Negative) 06/07/24 06:21 Urine Urobilinogen 0.2 mg/dL (Negative) 06/07/24 06:21 Ur Leukocyte Esterase Trace (Negative) A 06/07/24 06:21 Urine RBC 0-2 /hpf (0-2) 06/07/24 06:21 Urine WBC 11-20 /hpf (0-5) H 06/07/24 06:21 Ur Squamous Epith Cells 0-5 /hpf (0-5) 06/07/24 06:21 Amorphous Sediment Not Reportable 06/07/24 06:21 Urine Bacteria 4+ /hpf (NONE) H 06/07/24 06:21 Hyaline Casts 5.77 /lpf 06/07/24 06:21 Influenza A (PCR) Negative (Negative) 06/07/24 04:22 Influenza Type B (PCR) Negative (Negative) 06/07/24 04:22 RSV (PCR) Negative (Negative) 06/07/24 04:22 SARS-CoV-2 (PCR) Negative (Negative) 06/07/24 04:22 Discharge Plan Discharge Patient Disposition: Admitted As Inpatient Clinical Impression: Charles coma scale score 3-8, at arrival to emergency department, Acute and chronic respiratory failure with hypoxia, Acute and chronic respiratory failure with hypercapnia, Bradycardia, Elevated lactic acid level, D-dimer, elevated, Acute respiratory acidosis Condition: Stable Prescriptions: No Action acetaminophen 500 mg capsule 1,000 mg PO Q8H PRN (Reason: Pain) insulin lispro [Humalog KwikPen Insulin] 100 unit/mL insulin pen 5 unit SUBCUT .sliding scale Rx Instructions: per sliding scale 150-200=3 201-250=5 251-3600=7 301-350=9 351-400=11 TID PER SLIDING SCALE Entresto 49-51 mg tablet 1 tab PO BID pantoprazole 40 mg tablet,delayed release (DR/EC) 40 mg PO DAILY Qty: 90 3RF Eliquis 5 mg tablet 5 mg PO BID Qty: 90 3RF insulin glargine [Lantus U-100 Insulin] 100 unit/mL solution 20 unit SUBCUT DAILY albuterol sulfate 90 mcg/actuation HFA aerosol inhaler 2 inh inhalation Q6H PRN (Reason: shortness of breath or wheezing) Qty: 8.5 0RF dapagliflozin propanediol [Farxiga] 10 mg tablet 10 mg PO DAILY Qty: 30 0RF hydralazine 25 mg tablet 25 mg PO TID Qty: 90 0RF carvedilol 25 mg Tablet 25 mg PO BID Rx Instructions: must administer with a meal/food bumetanide 2 mg Tablet 2 mg PO BID ondansetron HCl 4 mg Tablet 4 mg PO Q6H PRN (Reason: Nausea And Vomiting) amlodipine [Norvasc] 10 mg Tablet 10 mg PO DAILY bumetanide [Bumex] 1 mg Tablet 1 mg PO Q24H Rx Instructions: IF WEIGHT IS >220 calcium carbonate-vitamin D3 [Oyster Shell Calcium-Vit D3] 500 mg-5 mcg (200 unit) Tablet 1 tab PO DAILY Spiriva Respimat 2.5 mcg/actuation Mist 2 puff INHALATION DAILY clopidogrel 75 mg tablet 75 mg PO DAILY Rx Instructions: TAKE 1 TABLET BY MOUTH EVERY DAY polyethylene glycol 3350 [GlycoLax] 17 gram/dose Powder 17 g PO DAILY tramadol 50 mg Tablet 100 mg PO BID Referrals: Avtar Bruce MD [Primary Care Provider] - Print Language: Citizen Of [place] Coding Level of Care Code ED Quality Assurance Specialist for Sasha Cox
[2024-06-07] MEDS: vancomycin 1,250 MG/250 ML PIGGYBACK 166.67 MG IV (05:17)
[2024-06-07] MEDS: sodium chloride 0.9% 1,000 ML 999 ML IV (05:19)
--- NOTE | 2024-06-07 05:24 | XRR_ITS ---
PROCEDURE INFORMATION: Exam: XR Chest Exam date and time: 06/07/2024 5:30 AM Age: 73 years old Clinical indication: Other vascular access device placement or adjustment; Central line, non-tunnelled; Check S/P central line placement. Ett and og in placement. TECHNIQUE: Imaging protocol: Radiologic exam of the chest. Views: 1 view. COMPARISON: CR XR chest 1V portable [id number] 06/07/2024 4:23 AM FINDINGS: Tubes, catheters and devices: An endotracheal tube is placed its tip 2.3 cm from the te. A nasogastric tube is placed with its tip at least in the proximal stomach. A left internal jugular vein central venous line is placed with its tip at the superior cavoatrial junction. Lungs: There is continued prominence and indistinctness of the pulmonary vasculature and increased interstitial opacities with pulmonary edema. There are strandy and linear opacities present left lung base compatible with atelectasis. Pleural spaces: Unremarkable. No pleural effusion. No pneumothorax. Heart/Mediastinum: Unremarkable. No cardiomegaly. Bones/joints: Unremarkable. XR/XR chest 1V portable [id number] IMPRESSION: 1. A left internal jugular vein central venous line is been placed with its tip at the level of the superior cavoatrial junction. 2. Otherwise stable life support tubing 3. Findings suggesting continued pulmonary edema. 4. Strandy linear opacities in the left lung base likely represents atelectasis.
[2024-06-07 05:29] LABS: Reflex Lactate Order REFLEX LACTIC ORDERD
--- NOTE | 2024-06-07 05:48 | ECG_ITS ---
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 Measurements Intervals [place] Rate: 51 P: 69 AL: 189 QRS: -39 QRSD: 107 T: 78 QT: 570 QTc: 525 Interpretive Statements SINUS BRADYCARDIA LEFT AXIS DEVIATION [QRS AXIS < -30] LOW QRS VOLTAGE IN EXTREMITY LEADS [QRS DEFLECTION < 0.5 mV IN LIMB LEADS] ANTEROSEPTAL MYOCARDIAL INFARCTION , OF INDETERMINATE AGE [40+ ms Q WAVE IN V1-V4] MODERATE T-WAVE ABNORMALITY, CONSIDER LATERAL ISCHEMIA [-0.1+ mV T-WAVE IN I/aVL/V5/V6] PROLONGED QT INTERVAL Compared to ECG 06/07/2024 04:20:22 Left-axis deviation now present Possible ischemia now present Electronically Signed On 06-07-2024 07:38:11 CDT by Bryan Posadas M.D. [email or web address]
[2024-06-07 05:54] LABS: Influenza A NEGATIVE (Negative); Influenza B NEGATIVE (Negative); Respiratory Syncytial Virus Ce NEGATIVE (Negative); SARS-CoV-2 PCR NEGATIVE (Negative)
[2024-06-07] MEDS: iohexol 350 mg/mL 500 mL Btl (per mL) IV (06:12)
[2024-06-07 06:15] LABS: Troponin(5th) Baseline 15 ng/L (0-10)
[2024-06-07 06:29] LABS: Glucose Point of Care 337 mg/dL (70-110)
[2024-06-07 06:33] LABS: Bilirubin Urine Negative (Negative); Blood Urine Trace (Negative); Glucose Urine UA 3+ (Normal); Ketones Urine Negative (Negative); Leukocyte Esterase Urine Trace (Negative); Nitrate Urine Negative (Negative); Protein Urine 1+ (Negative); Specific Gravity, Urine 1.014 (1.005-1.030); Urine Appearance Cloudy (CLEAR); Urine Color Yellow (Yellow); Urobilinogen Urine 0.2 mg/dL (Negative); pH Urine 5.5 (5-7)
[2024-06-07 06:38] LABS: Bacteria Urine 4+ /hpf; Hyaline Casts Urine 5.77 /lpf; RBC Urine 0-2 /hpf (0-2); Squamous Epithelial Cell Urine 0-5 /hpf (0-5)
[2024-06-07 06:43] LABS: Add Urine Culture? Yes
[2024-06-07 06:51] LABS: Troponin 5 2HR 40.14 ng/L (0-10)
[2024-06-07 06:54] LABS: Troponin 5 2HR Delta 25.14 ABS# (0-10)
[2024-06-07 07:10] LABS: Glucose Point of Care 419 mg/dL (70-110)
[2024-06-07 07:45] LABS: Lactic Acid level (Lactate) 1.2 mmol/L (0.5-2.2)
--- NOTE | 2024-06-07 07:46 | ECG_ITS ---
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 Measurements Intervals [place] Rate: 49 P: 61 MS: 193 QRS: -25 QRSD: 105 T: 62 QT: 565 QTc: 513 Interpretive Statements SINUS BRADYCARDIA ANTEROSEPTAL MYOCARDIAL INFARCTION , OF INDETERMINATE AGE [40+ ms Q WAVE IN V1-V4] MODERATE T-WAVE ABNORMALITY, CONSIDER LATERAL ISCHEMIA [-0.1+ mV T-WAVE IN I/aVL/V5/V6] PROLONGED QT INTERVAL CRITICAL TEST RESULT Compared to ECG 06/07/2024 05:48:18 Left-axis deviation no longer present Myocardial infarct finding still present T-wave abnormality still present Possible ischemia still present Electronically Signed On 06-07-2024 14:43:17 CDT by Mckinley Stark M.D. [id number]
--- NOTE | 2024-06-07 08:03 | USCV_ITS ---
Rene Lady Age: 73 Gender: F : 1950 Exam Date: 06/07/2024 13:05 Ordering Phys: Troy Gayle MD Technologist: Az Thompson [place] [facility] [place]ication: chf BP: 122 / 58 HR: 49 Rhythm: Sinus Technical Quality: chf MEASUREMENTS (Male / Female) Normal Values 2D ECHO LV Diastolic Diameter PLAX 4.4 cm 4.2 - 5.9 / 3.9 - 5.3 cm IVS Diastolic Thickness 1.4 cm 0.6 - 1.0 / 0.6 - 0.9 cm LVPW Diastolic Thickness 1.7 cm 0.6 - 1.0 / 0.6 - 0.9 cm LVPW Systolic Thickness 2.0 cm LVOT Diameter 2.0 cm LV Ejection Fraction 2D Teich 59.3 % LV Ejection Fraction MOD 4C 68.5 % LV Ejection Fraction MOD 2C 61.4 % LV Ejection Fraction 2C AL 60.6 % LA Diameter 3.6 cm RA Systolic Volume 4C AL 54.0 ml RA Systolic Volume 4C MOD 56.4 ml LA Sys Volume AL 56.9 cm cubed LA Sys Volume Index AL 26.1 cm cubed/m squared Aorta at Sinotubular Diameter 2.0 cm IVC Diameter 1.7 cm M-MODE LA Ao Ratio MM 1.6 AV Cusp Separation MM 1.5 cm DOPPLER AV Peak Velocity 192.7 cm/s LVOT Peak Velocity 65.0 cm/s AV Area Cont Eq vti 1.1 cm squared AV Area Cont Eq pk 1.1 cm squared MV Peak Velocity 153.0 cm/s MV Area PHT 3.1 cm squared Mitral E to A Ratio 1.5 TV Peak Velocity 270.3 cm/s TR Peak Velocity 306.0 cm/s TR Peak Gradient 37.5 mmHg TR Mean Velocity 244.0 cm/s TR Mean Gradient 24.6 mmHg TR Velocity Time Integral 104.3 cm PV Peak Velocity 107.3 cm/s RV Ejection Time 0.3 s FINDINGS Left Ventricle Normal LV size ejection fraction of 55%. No gross wall motion abnormalities. Right Ventricle Normal LV size and ejection fraction Right Atrium The right atrium is normal in size. Left Atrium Mildly increased left atrial size. Mitral Valve Moderate mitral annular calcification. Aortic Valve No gross abnormalities Tricuspid Valve Trace tricuspid valve regurgitation. Pulmonic Valve Structurally normal pulmonic valve without significant stenosis. There is no pulmonic regurgitation. Pericardium Normal pericardium without effusion. Aorta Normal aorta. IVC Normal inferior vena cava. CONCLUSIONS Normal LV size ejection fraction of 55%. No gross wall motion abnormalities. Moderate mitral annular calcification. Mild biatrial enlargement Normal cardiac chamber sizes. No pericardial effusion No similar previous studies are available for comparison Dr Mckinley Stark MD FACC (Electronically Signed) Final Date: 07 June 2024 15:18 S
[2024-06-07] MEDS: fentaNYL 1,000 MCG/100 ML BAG 2.5 MCG IV (08:14)
[2024-06-07 08:26] LABS: Glucose Point of Care 437 mg/dL (70-110)
[2024-06-07 08:28] LABS: Procalcitonin 0.06 ng/mL (0-0.5)
[2024-06-07 08:33] LABS: Estmated Average Glucose 192; Hemoglobin A1C 8.3 % (4.0-6.0)
[2024-06-07] MEDS: pantoprazole 40 mg SDV IVP ×2 (08:41→19:40)
[2024-06-07] MEDS: bumetanide 0.25 mg/mL SDV 4 mL 1 MG IVP ×2 (08:42→19:40)
[2024-06-07] MEDS: ipratropium-albuterol 3 mL Neb INHALATION ×3 (08:44→20:25)
[2024-06-07] MEDS: budesonide 0.5 mg/2 mL Neb INHALATION ×2 (08:44→20:25)
[2024-06-07] MEDS: insulin lispro 100 unit/1 mL SUBCUT ×3 (08:44→19:41)
[2024-06-07 08:45] LABS: Iron 59 ug/dL (37-145); Percent Saturation 22.6 % (20-50); Thyroid Stimulating Hormone 3.97 uIU/mL (0.27-4.20); Total Iron Binding Capacity 260 mcg/dl; Unsaturated Iron Binding 201 ug/dL (112-347); Vitamin B12 250 pg/mL (232-1245)
[2024-06-07 09:00] LABS: ABG PCO2 39.8 mmHg (35-45); ABG PH Result 7.44 (7.35-7.45); Alveolar-Arterial Oxygen Gradi 17.5 mmHg (5-10); Arterial Blood Gas Hematocrit 31.5 % (37-47); Base Excess ABG 2.3 mmol/L (-2.0-2.0); Blood Gas Allen Test Pos; Blood Gas Operator Identificat CAK; Blood Gas Sample Site Radial, left; Blood Gas Sample Type Arterial; Blood Gas Tidal Volume 0.45; Carboxyhemoglobin 0.4 %THgb (0.4-20.1); HCO3 ABG 26.7 mmol/L (22-26); HGB O2 Sat 95.5 % (95-100); Ionized Calcium Level - ABG 1.1 mmol/L (1.1-1.4); Methemoglobin 1.7 % (0.4-1.5); Oxygen Device VENT; Oxygen Saturation ABG 97.6; PO2 FiO2 Ratio Arterial Blood 252; Potassium Level - ABG 3.5 mmol/L (3.5-5.0); Total Hemoglobin 10.3 g/dL (12-16)
[2024-06-07] MEDS: norepinephrine 4 MG/250 ML BAG 7.5 MG IV (09:14)
[2024-06-07] MEDS: insulin glargine 100 units/1 mL 20 UNIT SUBCUT (09:19)
[2024-06-07] MEDS: apixaban 5 mg Tablet PO (09:19)
[2024-06-07] MEDS: clopidogrel 75 mg Tablet PO (09:19)
[2024-06-07 10:35] LABS: Troponin 5 6HR 147.6 ng/L (0-10); Troponin 5 6HR Delta 132.6 ng/L (0-12)
--- NOTE | 2024-06-07 10:40 | PM.HP ---
Providers/Chief Complaint Admitting Physician: Troy Gayle MD Primary Care Provider: Avtar Bruce MD Chief Complaint: Resp Distress History of Present Illness Lady López is a 73 year old female with past medical history of hypertension, PE, COPD, Diastolic heart failure, CAD, last angiogram from 2021 when she underwent PCI to mid LAD presents to the ER last night with concerns for acute respiratory distress with GCS of 3 for which she was intubated to protect her airway. Patient is a halfway resident. No other history currently available. Postintubation patient had hypotension for which she was started on Levophed. On examination patient is awake on ventilator, uncomfortable, saturating 98%, on propofol of 5. She had ABG done post ventilation which showed respiratory acidosis with pH of 7.27, pCO2 of 58. On conversation with the nursing staff from [facility] it seems patient has been noncompliant to her dietary and fluid restrictions. Usually her blood sugars are running very high but overnight she had hypoglycemia for which she was even given glucagon. As her blood sugars continue to remain low she became more confused. Nursing staff was about to start resuscitation for her by then EMS had arrived and she was brought to the ER. She has not been having any nausea, vomiting or diarrhea though multiple residents at the halfway have been dealing with 'abdominal bug'. Review of Systems General: Reports: ROS unobtainable due to endotracheal tube Medications/Allergies Home Medications ?Medication ?Instructions ?Recorded ?Confirmed ?Last Taken ?Type acetaminophen 500 mg capsule 1,000 mg PO Q8H PRN Pain 02/01/23 06/07/24 01/15/24 History apixaban 5 mg tablet (Eliquis) 5 mg PO BID #90 tabs 03/15/23 06/07/24 01/15/24 Rx pantoprazole 40 mg tablet,delayed 40 mg PO DAILY for stomach #90 tabs 03/15/23 06/07/24 01/15/24 Rx release insulin glargine 100 unit/mL 20 unit SUBCUT DAILY 03/22/23 06/07/24 01/15/24 History subcutaneous solution (Lantus U-100 Insulin) insulin lispro 100 unit/mL 5 unit SUBCUT .sliding scale 05/18/23 06/07/24 Unknown History subcutaneous pen (Humalog KwikPen (U-100) Insulin) albuterol sulfate 90 mcg/actuation 2 inh inhalation Q6H PRN shortness 07/17/23 06/07/24 01/15/24 Rx aerosol inhaler of breath or wheezing #8.5 grams sacubitril 49 mg-valsartan 51 mg 1 tab PO BID 12/28/23 06/07/24 01/15/24 History tablet (Entresto) dapagliflozin propanediol 10 mg 10 mg PO DAILY #30 tabs 01/20/24 06/07/24 Unknown Rx tablet (Farxiga) hydralazine 25 mg tablet 25 mg PO TID #90 tabs 01/20/24 06/07/24 Unknown Rx amlodipine 10 mg tablet (Norvasc) 10 mg PO DAILY 06/07/24 06/07/24 Unknown History bumetanide 1 mg tablet 1 mg PO Q24H 06/07/24 06/07/24 Unknown History bumetanide 2 mg tablet 2 mg PO BID 06/07/24 06/07/24 Unknown History calcium 500 mg (as 1 tab PO DAILY 06/07/24 06/07/24 Unknown History carbonate)-vitamin D3 5 mcg (200 unit) tablet (Oyster Shell Calcium-Vitamin D3) carvedilol 25 mg tablet 25 mg PO BID 06/07/24 06/07/24 Unknown History clopidogrel 75 mg tablet 75 mg PO DAILY 06/07/24 06/07/24 Unknown History ondansetron HCl 4 mg tablet 4 mg PO Q6H PRN Nausea And Vomiting 06/07/24 06/07/24 Unknown History polyethylene glycol 3350 17 17 g PO DAILY 06/07/24 06/07/24 Unknown History gram/dose oral powder tiotropium bromide 2.5 2 puff inhalation DAILY 06/07/24 06/07/24 Unknown History mcg/actuation mist for inhalation (Spiriva Respimat) tramadol 50 mg tablet 100 mg PO BID 06/07/24 06/07/24 Unknown History Allergies Allergy/AdvReac Type Severity Reaction Status Date / Time codeine Allergy Unknown ADR-Diarrhe Verified 12/28/23 10:58 a tetanus and diphtheria Allergy Unknown Unknown Verified 12/28/23 10:58 toxoids atorvastatin Allergy ADR-Faintin Verified 12/28/23 10:58 g PFSH Acute PFSH: Medical History (Updated 06/07/24 @ 11:03 by Troy Gayle MD) Non-ST elevation (NSTEMI) myocardial infarction Fracture of left hip requiring operative repair Atherosclerosis of coronary artery Fracture, intertrochanteric, left femur Left radial head fracture Open fracture of distal ends of both radius and ulna Hearing loss Gastroparesis Orthostasis Supplemental oxygen dependent Failure to thrive in adult Hyperglycemia Anemia Hyponatremia Nausea & vomiting Dilation of pulmonary artery GERD (gastroesophageal reflux disease) Restless leg syndrome Presence of stent in coronary artery in patient with coronary artery disease Heart failure with preserved ejection fraction Altered mental status Diabetes CHF (congestive heart failure) Hyperlipidemia Pulmonary embolism DKA (diabetic ketoacidosis) Hypertensive urgency DM type 2 (diabetes mellitus, type 2) Arthritis Asthma HTN (hypertension) Small bowel mass Surgical History (Updated 06/07/24 @ 10:53 by Troy Gayle MD) S/P ORIF (open reduction internal fixation) fracture Hx of cholecystectomy Family History Other Cancer Stroke Social History Smoking and tobacco/nicotine status: never used tobacco/nicotine Alcohol intake: never Substance/Drug Use: never Lives independently: Yes Household members: none Marital status: / Vitals/I&O/Wt Last Vital Signs Temp 95.8 F L 06/07/24 08:55 Pulse 47 L 06/07/24 08:55 Resp 18 06/07/24 09:41 BP 125/40 06/07/24 08:55 Pulse Ox 100 06/07/24 09:41 O2 Del Method Mechanical Ventilation 06/07/24 08:55 O2 Flow Rate 100 06/07/24 04:21 FiO2 35 06/07/24 09:41 06/06/24 06/07/24 06/07/24 22:59 06:59 14:59 Intake Total 1050 / 1050 292.319 / 292.319 Balance 1050 / 1050 292.319 / 292.319 Weight last 48 hrs Weight 99.79 kg Weight 99.79 kg Physical Exam Narrative: General: intubated, sedated HEENT: PERRLA, pupils bilaterally equal and reactive Chest: Bilateral bronchial breath sounds all over lung wong with occasional room, coarse with no present right more than left CVS: S1-S2 regular, no murmurs, bradycardia, no gallops, no rubs Abdomen: Soft, nontender, no organomegaly, bowel sounds present Neuro: No focal deficits, no facial deformity, Urinary Catheter Management: Mathew: Cath Placed During This Visit: yes Reason for Continuing Indwelling Catheter: Accurate Measurement of Urinary Output in Critically Ill Patients Urinary Catheter Date of Insertion: 06/07/24 Urinary Catheter Time of Insertion: 04:32 Data 06/07/24 04:15 06/07/24 04:15 Micro: Microbiology 06/07/24 05:11 Blood Culture - Preliminary Blood SPECIMEN COLLECTED 06/07/24 04:22 Blood Culture - Preliminary Blood SPECIMEN COLLECTED A&P Assessment and plan (1) Septic shock: Keep mean arterial pressure 65. Wean Levophed accordingly. (2) Acute and chronic respiratory failure with hypercapnia: Appreciate ABG on presentation after intubation with respiratory acidosis and hypercapnia. Most likely in setting of COPD exacerbation with pneumonia. CT done in the ER negative for PE. 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 Continue with mechanical ventilation for now. Repeat ABG stat and change ventilator settings accordingly. Sedation with fentanyl and propofol. Daily sedation medication Oxygen supplementation keeping saturation over 88%. Repeat ABG every morning. (3) Acute exacerbation of chronic obstructive pulmonary disease: Pulmicort twice daily, DuoNeb every 6 hour. Solu-Medrol 40 mg every 6 hour. (4) Pneumonia: Check blood culture, sputum culture. Check urinalysis, bacterial antigen. Appreciate CTA done in the ER. Empirically start patient on IV Zosyn for now. Check MRSA swab, respiratory viral panel. If MRSA swab positive will add vancomycin. Qualifiers: Laterality: bilateral Lung location: lower lobe of lung Pneumonia type: due to unspecified organism Qualified Code(s): J18.9 - Pneumonia, unspecified organism (5) Acute exacerbation of CHF (congestive heart failure): Last echocardiogram from 2023 showed EF of 60% with grade 1 diastolic dysfunction. IV Bumex 1 mg twice daily. Fluid restriction. Strict input output charting, daily weights. Repeat echocardiogram. Qualifiers: Heart failure type: diastolic Qualified Code(s): I50.33 - Acute on chronic diastolic (congestive) heart failure (6) Non-ST elevation (NSTEMI) myocardial infarction: Delta troponin 2 hours more than 120. Appreciate mild EKG changes in anterior lateral leads. Aspirin 325 mg one-time for 21 mg daily. Continue home dose of Plavix. Holding off on beta-roge as patient is on Levophed. Check A1c, lipid panel. Full dose Lovenox 1 mg/kg body weight every 12 hourly. Hold off on Eliquis. Echocardiogram as above. If any concerns for regional wall motion abnormality or low EF on echocardiogram will consult cardiology for further workup. (7) DM type 2 (diabetes mellitus, type 2): History of uncontrolled type 2 diabetes mellitus in the past. Noncompliance as per nursing staff from [facility]. Check A1c. Sliding scale every 6 hour low-dose protocol. Lantus 20 units every morning. (8) Hypoglycemia: Reported by the nursing staff at [facility] prior to admission. Received glucagon at halfway. Patient was unresponsive because of hypoglycemia. (9) Charles coma scale score 3-8, at arrival to emergency department: (10) Respiratory acidosis: Plan Bradycardia: Monitor heart rate. Could be in setting of hypothermia. Angella hugger. Monitor heart rates. Troponin cycle as above. No concern for heart block for now. Hold off on beta-roge. Anesthesia: Propofol, fentanyl Glycemic control: Check A1c. Lantus 20 units every morning. Insulin sliding scale low-dose protocol every 6 hour Nutrition: N.p.o. for now CODE STATUS: Full code PUD prophylaxis: Protonix DVT prophylaxis: Full dose Lovenox will be sufficient for DVT prophylaxis Discharge planning: Back to SNF once patient is medically stable Continue with care at ICU This documentation was created by [employer] spiritual counselor software. Every effort was made to ensure accuracy of spiritual counselor. Any obvious errors or omissions should be clarified with the author of the document. PDMP PDMP Reviewed: Not Reviewed Attestations Medical Necessity Statement*: Admission for more than 2 midnights for management of respiratory failure, septic shock due to pneumonia, COPD exacerbation, congestive heart failure, non-ST elevation PR Critical Care Time: The high probability of a clinically significant, sudden or life threatening deterioration of the patient's [cardiology, pulmonary] system(s) required my full and direct attention, intervention and personal management. The critical care time is as shown. This time is in addition to time spent performing any reported procedures but includes the following: [x] Data and vital sign review and interpretation [x] Patient assessment, examination and intervention [x] Documentation [x] Medication orders and management Critical Care Time (min): 80 Coding Level of Care Code Critical Care >/= 30 minutes Critical care time (in minutes): 80 The high probability of a clinically significant, sudden or life threatening deterioration, as referenced in this documentation, required my full and direct attention, intervention and personal management. The critical care time shown is in addition to time spent performing any reported separately billable procedures and includes the following: [x] Data and vital sign review and interpretation [x] Patient assessment, examination and intervention [x] Medication orders and management [x] Patient/Family updates as able [x] Care Coordination and Documentation. Other Coding Information This patient has a high probability of clinically significant, sudden or life threatening deterioration of the patient's (neurological/pulmonary/cardiac/renal/ID/endocrine) systems required my full, direct attention, the highest level of physician preparedness for urgent intervention and personal management. I managed/supervised life or organ supporting interventions that required frequent physician assessment. I devoted my full attention in the ICU to the direct care of this patient for the period of time indicated above. Time I spent with family or surrogate(s) is included only if the patient was incapable of providing necessary information or participating in decision making. This time includes the following services provided: Telemetry review Mechanical Ventilation Hemodynamic interpretation, assessment and management Review and interpretation of CXR Review and interpretation of lab values Review and interpretation of microbiologic data and culture results Review of medications and administration Review and interpretation of Nutrition requirements and management Discussion of management with other consultants and services Clinical update to family members Diagnoses Septic shock A41.9; R65.21 Acute and chronic respiratory failure with hypercapnia J96.22 Acute exacerbation of chronic obstructive pulmonary disease J44.1 Pneumonia of both lower lobes due to infectious organism J18.9 Laterality: bilateral Lung location: lower lobe of lung Pneumonia type: due to unspecified organism Acute on chronic diastolic congestive heart failure I50.33 Heart failure type: diastolic Non-ST elevation (NSTEMI) myocardial infarction I21.4 DM type 2 (diabetes mellitus, type 2) E11.9 Hypoglycemia E16.2 [place] coma scale score 3-8, at arrival to emergency department R40.2432 Respiratory acidosis E87.29
[2024-06-07 10:57] LABS: Cortisol Random 9.87 ug/dL (2.47-19.5)
[2024-06-07] MEDS: aspirin 325 mg EC Tablet PO (11:00)
[2024-06-07] MEDS: methylPREDNISolone sod succ 40 mg/mL INJ IVP ×3 (11:00→22:00)
[2024-06-07] MEDS: propofol 1,000 MG/100 ML INJ 17.96 MG IV ×3 (11:02→22:52)
[2024-06-07 11:24] LABS: MRSA PCR OZH (swab) NOT DETECTED (Not Detecte)
--- NOTE | 2024-06-07 11:46 | ECG_ITS ---
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 Measurements Intervals [place] Rate: 48 P: 74 FL: 177 QRS: -16 QRSD: 94 T: 91 QT: 464 QTc: 418 Interpretive Statements SINUS BRADYCARDIA ANTEROSEPTAL MYOCARDIAL INFARCTION , OF INDETERMINATE AGE [40+ ms Q WAVE IN V1-V4] ST DEPRESSION, CONSIDER SUBENDOCARDIAL INJURY [0.1+ mV ST DEPRESSION] Compared to ECG 06/07/2024 08:32:06 ST (T wave) deviation now present T-wave abnormality no longer present Possible ischemia no longer present Prolonged QT interval no longer present Myocardial infarct finding still present Electronically Signed On 06-07-2024 14:43:03 CDT by Mckinley Stark M.D. [email or web address]
[2024-06-07 13:14] LABS: Adenovirus Not Detected (NOT DETECT); Chlamydia Pneumoniae Not Detected (NOT DETECT); Coronavirus 229E,HKU1,NL63,OC4 Not Detected (NOT DETECT); Human Metapneumovirus Not Detected (NOT DETECT); Human Rhinovirus/Enterovirus Not Detected (NOT DETECT); Influenza A Not Detected (NOT DETECT); Influenza A H1 Not Detected (NOT DETECT); Influenza A H1-2009 Not Detected (NOT DETECT); Influenza A H3 Not Detected (NOT DETECT); Influenza B Not Detected (NOT DETECT); Mycoplasma Pneumoniae Not Detected (NOT DETECT); Parainfluenza Virus Type 1 Not Detected (NOT DETECT); Parainfluenza Virus Type 2 Not Detected (NOT DETECT); Parainfluenza Virus Type 3 Not Detected (NOT DETECT); Parainfluenza Virus Type 4 Not Detected (NOT DETECT); Respiratory Syncytial Virus A Not Detected (NOT DETECT); Respiratory Syncytial Virus B Not Detected (NOT DETECT); SARS-COV-2 Not Detected (NOT DETECT)
[2024-06-07] MEDS: lanolin oint 7 gm 1 APPLIC TOPICAL (13:59)
[2024-06-07 14:07] LABS: Glucose Point of Care 184 mg/dL (70-110)
[2024-06-07 15:21] LABS: Anion Gap 15.3 (5-19); Blood Urea Nitrogen 33 mg/dL (8-23); Calcium 8.7 mg/dL (8.5-10.5); Carbon Dioxide 26 mmol/L (22-29); Chloride 100 mmol/L (98-107); Glucose 177 mg/dL (65-115); Osmolality Calculated 298 mOsm/kg (285-295); Potassium 3.3 mmol/L (3.5-5.1); Sodium 138 mmol/L (136-145)
[2024-06-07] MEDS: docusate sodium 100 mg Capsule PO (17:19)
--- NOTE | 2024-06-07 18:50 | PC.NURSE ---
Patient arrived to ICU12 mechanically ventilated, no wounds or bruising noted on skin assessment, patient on 15propofol from ER, increased per mar for patient comfort, see MAR for fentanyl. Patient temperature 95.7 temporal, 94.7 rectal, warming blanket applied. See documented vitals. Patients heart rate dropped to mid 30's and pads applied. Patient remains in bradycardia throughout shift, see vitals charted. Patients queenie Gaspar given update via telephone. Warming blanket turned off at 1722.
[2024-06-07 19:41] LABS: Glucose Point of Care 147 mg/dL (70-110)
[2024-06-07] MEDS: enoxaparin 100 mg/mL Syringe SUBCUT (21:59)
[2024-06-07] MEDS: fentaNYL 1,000 MCG/100 ML BAG 5 MCG IV (22:52)
[2024-06-08] VITALS (110 sets, daily range): BP systolic 118–178; BP diastolic 47–104; PULSE 41–106; RESP 12–28; TEMP 36.8–37.6; O2SAT 87–100
[2024-06-08] MEDS: ipratropium-albuterol 3 mL Neb INHALATION ×4 (02:19→20:03)
[2024-06-08] MEDS: insulin lispro 100 unit/1 mL SUBCUT ×4 (02:50→20:33)
[2024-06-08] MEDS: piperacillin-tazobactam 3.375 GM in sodium chloride 0.9% (plus) 50 ML IV ×3 (02:50→17:33)
[2024-06-08 02:52] LABS: Glucose Point of Care 165 mg/dL (70-110)
[2024-06-08] MEDS: propofol 1,000 MG/100 ML INJ 17.96 MG IV (03:26)
[2024-06-08 04:46] LABS: Eosinophils % 0.1 %; Hematocrit 31.4 % (36-47); Lymphocytes # 0.6 10^3/uL (0.8-4.8); Lymphocytes % 9.1 %; Mean Corpuscular HGB Conc 32.2 g/dL (30-55); Mean Corpuscular Hemoglobin 26.9 pg (27-33); Mean Corpuscular Volume 83.7 fl (85-98); Monocytes # 0.1 10^3/uL (0.2-0.9); Monocytes % 1.8 %; Neutrophils # 6.04 10^3/uL (1.8-7.7); Neutrophils % 88.6 %; Nucleated Red Blood Cells % 0 %; Platelet Count 277 10^3/cmm (157-399); Red Blood Count 3.75 10^6/uL (3.85-5.65); Red Cell Distribution Width 14.5 % (12.1-15.1); White Blood Count 6.82 10^3/uL (3.29-11.43)
[2024-06-08 05:12] LABS: Alanine Aminotransferase 9 U/L (0-33); Albumin Level 3.2 g/dL (3.5-5.2); Alkaline Phosphatase 79 U/L (35-105); Anion Gap 17.2 (5-19); Aspartate Amino Transferase 21 U/L (0-32); Blood Urea Nitrogen 35 mg/dL (8-23); Calcium 8.6 mg/dL (8.5-10.5); Carbon Dioxide 24 mmol/L (22-29); Chloride 104 mmol/L (98-107); Globulin 3.1 g/dL (1.3-4.6); Glucose 170 mg/dL (65-115); Magnesium 2.2 mg/dL (1.7-2.3); Osmolality Calculated 306 mOsm/kg (285-295); Phosphorus 5.5 mg/dL (2.5-4.5); Potassium 3.2 mmol/L (3.5-5.1); Sodium 142 mmol/L (136-145); Total Bilirubin 0.2 mg/dL (0.15-1.2); Total Protein 6.3 g/dL (6.6-8.7)
[2024-06-08] MEDS: methylPREDNISolone sod succ 40 mg/mL INJ IVP ×4 (05:14→22:35)
[2024-06-08 06:00] LABS: Folate Level 19.7 ng/mL (4.8-37.3)
--- NOTE | 2024-06-08 06:00 | XRR_ITS ---
PROCEDURE INFORMATION: Exam: XR Chest Exam date and time: 06/08/2024 8:18 AM Age: 73 years old Clinical indication: Dyspnea; Daily surveillance, patient on vent; Additional info: Intubated TECHNIQUE: Imaging protocol: Radiologic exam of the chest. Views: 1 view. COMPARISON: CT angio chest PE protcl [id number] 06/07/2024 6:02 AM FINDINGS: Lungs: Unremarkable. No consolidation. Pleural spaces: Unremarkable. No pleural effusion. No pneumothorax. Heart/Mediastinum: Mild cardiomegaly. Bones/joints: Unremarkable. Other findings: Stable life-support lines. XR/XR chest 1V portable [id number] IMPRESSION: No acute findings.
[2024-06-08 06:03] LABS: Chol HDL Ratio 4.45 mg/dL (0.0-4.40); Cholesterol 178 mg/dL (0-200); HDL Cholesterol 40 mg/dL (60-100); LDL Cholesterol Calculated 106 mg/dL (50-129); LDL HDL Ratio 2.65 RATIO (0.00-3.22); Procalcitonin 1.68 ng/mL (0-0.5); Triglycerides 160 mg/dL (0-150)
--- NOTE | 2024-06-08 07:13 | PC.NURSE ---
Upon morning assessment, patient attempting to sit up in bed, kicking feet, turning head back and forth. Patient minimally calmed with verbal intervention. Patient is able to follow commands of squeezing fingers and open and close of eyes, but continues to kick, and attempt to sit up, occasionally attempting to reach at tubing. Restraints secure. Sedation increased per MAR.
[2024-06-08] MEDS: budesonide 0.5 mg/2 mL Neb INHALATION ×2 (07:32→20:02)
[2024-06-08 07:49] LABS: Glucose Point of Care 209 mg/dL (70-110)
[2024-06-08] MEDS: bumetanide 0.25 mg/mL SDV 4 mL 1 MG IVP (08:02)
[2024-06-08] MEDS: pantoprazole 40 mg SDV IVP ×2 (08:02→19:05)
[2024-06-08] MEDS: propofol 1,000 MG/100 ML INJ 23.95 MG IV (08:06)
[2024-06-08] MEDS: aspirin 81 mg EC Tablet PO (08:07)
[2024-06-08] MEDS: clopidogrel 75 mg Tablet PO (08:07)
[2024-06-08] MEDS: docusate sodium 100 mg Capsule PO ×2 (08:07→17:33)
[2024-06-08] MEDS: insulin glargine 100 units/1 mL 20 UNIT SUBCUT (08:08)
[2024-06-08 08:41] LABS: ABG PCO2 29.7 mmHg (35-45); ABG PH Result 7.51 (7.35-7.45); Alveolar-Arterial Oxygen Gradi 10.1 mmHg (5-10); Arterial Blood Gas Hematocrit 34.5 % (37-47); Base Excess ABG 1.5 mmol/L (-2.0-2.0); Blood Gas Allen Test Pos; Blood Gas Operator Identificat CAK; Blood Gas Sample Site Brachial, left; Blood Gas Sample Type Arterial; Blood Gas Tidal Volume 0.45; Carboxyhemoglobin 0.2 %THgb (0.4-20.1); HCO3 ABG 23.9 mmol/L (22-26); HGB O2 Sat 96.4 % (95-100); Ionized Calcium Level - ABG 1.1 mmol/L (1.1-1.4); Methemoglobin 1.8 % (0.4-1.5); Oxygen Device VENT; Oxygen Saturation ABG 98.4; PO2 FiO2 Ratio Arterial Blood 371; Potassium Level - ABG 3.1 mmol/L (3.5-5.0); Total Hemoglobin 11.2 g/dL (12-16)
[2024-06-08] MEDS: enoxaparin 100 mg/mL Syringe SUBCUT ×2 (09:55→22:35)
--- NOTE | 2024-06-08 09:56 | PC.NURSE ---
Dr. Gayle gave verbal order to extubate patient. RT notified, Sedation weaned per MAY.
[2024-06-08] MEDS: lanolin oint 7 gm 1 APPLIC TOPICAL (09:58)
--- NOTE | 2024-06-08 10:47 | PC.NURSE ---
Patient extubated to 3L NC at 1045, RT and 1 RN at bedside. No complications.
--- NOTE | 2024-06-08 10:50 | PC.NURSE ---
Restraints removed from patient at 1045 by this RN.
[2024-06-08] MEDS: VANCOMYCIN ADD-Vantage 750 MG in 0.9% NaCl ADD-Vantage 250 ML 250 MG IV ×2 (11:56→22:35)
--- NOTE | 2024-06-08 13:58 | PM.PN ---
Subjective Subjective: No acute events overnight. Patient has remained on 35% FiO2 saturating around 98%. Has remained hemodynamically stable and afebrile. ABG appreciated on FiO2 35%, tidal volume 450 with PEEP of 5. Appreciate urine output. On examination patient is on 15 of propofol, 50 of fentanyl. Sedation was weaned off. Patient was following directions and was eventually extubated to 3 L nasal cannula. Patient is weaned off Levophed late yesterday evening. Vitals/I&O/Wt Last Vital Signs Temp 99.7 F H 06/08/24 12:15 Pulse 84 06/08/24 12:15 Resp 12 06/08/24 12:15 BP 164/79 06/08/24 12:15 Pulse Ox 97 06/08/24 12:15 O2 Del Method Nasal Cannula 06/08/24 12:15 O2 Flow Rate 3 06/08/24 12:15 FiO2 30 06/08/24 10:32 06/07/24 06/08/24 06/08/24 22:59 06:59 14:59 Intake Total 390.003 / 826.502 183.815 / 1010.317 388.084 / 388.084 Output Total 900 / 3350 800 / 4150 700 / 700 Balance -509.997 / -2523.498 -616.185 / -3139.683 -311.916 / -311.916 Weight last 48 hrs Weight 97 kg Weight 99.79 kg Weight 99.79 kg Physical Exam Narrative: General: intubated, sedated, when again seen later in the day postextubation patient is awake and alert, following simple directions, weak appearing HEENT: PERRLA, pupils bilaterally equal and reactive Chest: Bilateral bronchial breath sounds all over lung wong with occasional room, coarse with no present right more than left CVS: S1-S2 regular, no murmurs, bradycardia, no gallops, no rubs Abdomen: Soft, nontender, no organomegaly, bowel sounds present Neuro: No focal deficits, no facial deformity, moving all limbs Urinary Catheter Management: Mathew: Cath Placed During This Visit: yes Reason for Continuing Indwelling Catheter: Accurate Measurement of Urinary Output in Critically Ill Patients Urinary Catheter Date of Insertion: 06/07/24 Urinary Catheter Time of Insertion: 04:32 Data 06/08/24 04:28 06/08/24 04:28 Micro: Microbiology 06/08/24 11:11 Blood Culture - Preliminary Blood SPECIMEN COLLECTED 06/08/24 11:16 Blood Culture - Preliminary Blood SPECIMEN COLLECTED 06/07/24 07:55 Gram Stain - Final Sputum - Endotracheal Tube Aspirate Sputum Culture - Preliminary 06/07/24 06:21 Urine Culture - Preliminary Urine,Clean Catch Gram Negative Rods 06/07/24 04:22 Blood Culture - Preliminary Blood Staphylococcus epidermidis 06/07/24 05:11 Blood Culture - Preliminary Blood NEGATIVE TO DATE 06/07/24 06:21 Bacterial Antigens - Final Urine Kidney A&P Assessment and plan (1) Acute and chronic respiratory failure with hypercapnia: Appreciate ABG on presentation after intubation with respiratory acidosis and hypercapnia. Most likely in setting of COPD exacerbation with pneumonia. CTA done in the ER negative for PE. 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 Extubated on 06/08. Oxygen supplementation keeping saturation over 88%. BiPAP nightly or as needed. (2) Acute exacerbation of chronic obstructive pulmonary disease: Pulmicort twice daily, DuoNeb every 6 hour. Solu-Medrol 40 mg every 6 hour. Continue with current dose of IV Solu-Medrol. Patient extubated today. Will plan to wean from tomorrow. (3) Pneumonia: Follow-up sputum culture. Appreciate blood culture. MRSA swab negative. Urine bacterial antigen negative. Viral panel appreciated to be negative. Continue with empiric Zosyn for now. Leukocytosis resolved today. Qualifiers: Laterality: bilateral Lung location: lower lobe of lung Pneumonia type: due to unspecified organism Qualified Code(s): J18.9 - Pneumonia, unspecified organism (4) Acute exacerbation of CHF (congestive heart failure): Echocardiogram done shows an EF of 55% with mild biatrial enlargement. Concern for acute on chronic diastolic heart failure. Patient takes oral Bumex as an outpatient. Appropriate urine output in last 24 hours. Developing mild acute kidney injury with creatinine 1.2. Hold off on Bumex for now. Patient's oral intake would be limited as she is postextubation from today. Monitor fluid status daily. Restart diuretics accordingly. Fluid restriction to less than 1500 cc. Strict input output charting, daily weights. Qualifiers: Heart failure type: diastolic Qualified Code(s): I50.33 - Acute on chronic diastolic (congestive) heart failure (5) Non-ST elevation (NSTEMI) myocardial infarction: Delta troponin 2 hours more than 120. Patient denies any chest pain postextubation. Echocardiogram negative for regional wall motion abnormality. Continue with with aspirin, Plavix. Appreciate A1c, lipid panel. Continue with full dose Lovenox 1 mg/kg body weight every 12 hourly for now. Holding off on home dose of Eliquis. Patient would benefit from Lexiscan stress test during hospitalization for further ACS workup. Depending on the result of stress test, consult cardiology. (6) UTI (urinary tract infection): (7) DM type 2 (diabetes mellitus, type 2): History of uncontrolled type 2 diabetes mellitus in the past. Noncompliance as per nursing staff from [facility]. Appreciate A1c. Blood sugar stable. Sliding scale every 6 hour low-dose protocol. Lantus 20 units every morning. (8) Hypoglycemia: Reported by the nursing staff at [facility] prior to admission. Received glucagon at detention. Patient was unresponsive because of hypoglycemia. (9) Charles coma scale score 3-8, at arrival to emergency department: (10) Septic shock: Resolved. Levophed weaned off. Continue to maintain mean arterial pressure over 65. (11) Respiratory acidosis: Plan Staphylococcus bacteremia: Blood culture from admission 1 out of 3 bottles positive for Staphylococcus epidermidis. Most likely contaminant. Repeat blood cultures. Continue with IV Zosyn. Add vancomycin again. Patient was MRSA swab negative. Given concerns for possible bacteremia even though there are high concerns for contamination for now we will restart vancomycin. If repeat blood cultures remain negative will discontinue antibiotics. UTI: Urine culture growing gram-negative rods. Continue with Zosyn for now. Follow-up culture identification and sensitivities. Bradycardia: Most likely in setting anesthesia. Heart rate stable. Continue to monitor. Hypertension: Goal blood pressure less than 140/90 mmHg with mean over 65. Septic shock resolved. Continue to monitor. Depending on the goal blood pressures will restart antihypertensives. As an outpatient patient takes Coreg 25 mg twice daily, amlodipine 10 mg oral daily, hydralazine 25 mg 3 times daily, Entresto. Will add hydralazine 25 mg 3 times daily for now. Check physical therapy, outpatient therapy, speech therapy. Bedside speech evaluation and advance diet accordingly. Anesthesia: Morphine 1 mg every 4 hours as needed, hydrocodone 5 mg every 6 hours as needed Glycemic control: A1c 8.3 Lantus 20 units every morning. Insulin sliding scale low-dose protocol every 6 hour Nutrition: N.p.o. for now. Advance as per bedside speech evaluation. CODE STATUS: Full code PUD prophylaxis: Protonix DVT prophylaxis: Full dose Lovenox will be sufficient for DVT prophylaxis Discharge planning: Back to SNF once patient is medically stable Continue with care at ICU This documentation was created by [employer] wringer machine operator software. Every effort was made to ensure accuracy of wringer machine operator. Any obvious errors or omissions should be clarified with the author of the document. PDMP PDMP Reviewed: Not Reviewed Attestations Medical Necessity Statement*: Requires further hospitalization for management of severe sepsis, postextubation. In setting of acute exacerbation, pneumonia with respiratory failure in a patient with history of diastolic heart failure, uncontrolled type 2 diabetes mellitus with hyperglycemia Critical Care Time: The high probability of a clinically significant, sudden or life threatening deterioration of the patient's [cardiac, pulmonary] system(s) required my full and direct attention, intervention and personal management. The critical care time is as shown. This time is in addition to time spent performing any reported procedures but includes the following: [x] Data and vital sign review and interpretation [x] Patient assessment, examination and intervention [x] Documentation [x] Medication orders and management Critical Care Time (min): 90 Coding Level of Care Code Critical Care >/= 30 minutes Critical care time (in minutes): 90 The high probability of a clinically significant, sudden or life threatening deterioration, as referenced in this documentation, required my full and direct attention, intervention and personal management. The critical care time shown is in addition to time spent performing any reported separately billable procedures and includes the following: [x] Data and vital sign review and interpretation [x] Patient assessment, examination and intervention [x] Medication orders and management [x] Patient/Family updates as able [x] Care Coordination and Documentation. Other Coding Information This patient has a high probability of clinically significant, sudden or life threatening deterioration of the patient's (neurological/pulmonary/cardiac/renal/ID/endocrine) systems required my full, direct attention, the highest level of physician preparedness for urgent intervention and personal management. I managed/supervised life or organ supporting interventions that required frequent physician assessment. I devoted my full attention in the ICU to the direct care of this patient for the period of time indicated above. Time I spent with family or surrogate(s) is included only if the patient was incapable of providing necessary information or participating in decision making. This time includes the following services provided: Telemetry review Mechanical Ventilation Hemodynamic interpretation, assessment and management Review and interpretation of CXR Review and interpretation of lab values Review and interpretation of microbiologic data and culture results Review of medications and administration Review and interpretation of Nutrition requirements and management Discussion of management with other consultants and services Clinical update to family members Diagnoses Acute and chronic respiratory failure with hypercapnia J96.22 Acute exacerbation of chronic obstructive pulmonary disease J44.1 Pneumonia of both lower lobes due to infectious organism J18.9 Laterality: bilateral Lung location: lower lobe of lung Pneumonia type: due to unspecified organism Acute on chronic diastolic congestive heart failure I50.33 Heart failure type: diastolic Non-ST elevation (NSTEMI) myocardial infarction I21.4 UTI (urinary tract infection) N39.0 DM type 2 (diabetes mellitus, type 2) E11.9 Hypoglycemia E16.2 [place] coma scale score 3-8, at arrival to emergency department R40.2432 Septic shock A41.9; R65.21 Respiratory acidosis E87.29
--- NOTE | 2024-06-08 14:11 | PHA.VACGOAL ---
Vancomycin Goal - Goal Vancomycin Goal:: 15-20 mg/L Vancomycin Indication:: Pneumonia (SEPSIS) - Therapy Current therapy:: Pip/Tazo Day of therpy:: Day [1]of [] . Actual body weight (kg): 97 kg - Data Labs: WBC 6.82 10^3/uL (3.29-11.43) 06/08/24 04:28 RBC 3.75 10^6/uL (3.85-5.65) L 06/08/24 04:28 Hgb 10.10 g/dL (11.27-16.99) L 06/08/24 04:28 Hct 31.4 % (36-47) L 06/08/24 04:28 MCV 83.7 fl (85-98) L 06/08/24 04:28 MCH 26.9 pg (27-33) L 06/08/24 04:28 MCHC 32.2 g/dL (30-55) 06/08/24 04:28 RDW 14.5 % (12.1-15.1) 06/08/24 04:28 Sodium 142 mmol/L (136-145) 06/08/24 04:28 Potassium 3.2 mmol/L (3.5-5.1) L 06/08/24 04:28 Chloride 104 mmol/L (98-107) 06/08/24 04:28 Carbon Dioxide 24 mmol/L (22-29) 06/08/24 04:28 Anion Gap 17.2 (5-19) 06/08/24 04:28 BUN 35 mg/dL (8-23) H 06/08/24 04:28 Creatinine 1.2 mg/dL (0.5-0.9) H 06/08/24 04:28 GFR Calculation Not Reportable 06/08/24 04:28 Treatment plan:: new consult Regimen:: New start vancomycin for Pneumonia/Sepsis. Blood cultures 1 of 3 bottles growing Staphylococcus epidermidis. Load dose of 1250 mg given on 06/07 @0517. Started on maintenance dose of 750 mg q12h. Microbiology 06/07/24 04:22 Blood Blood Culture - Preliminary Staphylococcus epidermidis
[2024-06-08 14:27] LABS: Glucose Point of Care 246 mg/dL (70-110)
[2024-06-08] MEDS: hyDRALAzine 25 mg Tablet PO ×2 (14:28→20:33)
--- NOTE | 2024-06-08 15:47 | PC.NURSE ---
Addendum entered by Taniya Barnes RN 06/08/24 15:52: witnessed waste of fentanyl and propofol Original Note: Waste of remaining Fentanyl and Propofol witnessed by SANDRA Monahan BSN.
--- NOTE | 2024-06-08 18:21 | ECG_ITS ---
[facility] Test Date: 2024-06-09 Pat Name: Lady López Department: Room: ICU12 Gender: Female Classification Officer: : 1950 Requested By: Troy Gayle Order Number: [id number] Kelby MD: Bryan Posadas M.D. Interpretive Statements Lung unchanged pre/post procedure; Intraprocedure shortess of breath; Symptoms resoled by discharge [id number]
--- NOTE | 2024-06-08 18:22 | ECG_ITS ---
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 Measurements Intervals [place] Rate: 81 P: 59 [place]: 175 QRS: -59 QRSD: 102 T: 37 QT: 432 QTc: 504 Interpretive Statements SINUS RHYTHM LEFT AXIS DEVIATION [QRS AXIS < -30] ANTEROSEPTAL MYOCARDIAL INFARCTION , OF INDETERMINATE AGE [40+ ms Q WAVE IN V1-V4] Compared to ECG 06/07/2024 11:20:20 Left-axis deviation now present Sinus bradycardia no longer present ST (T wave) deviation no longer present Myocardial infarct finding still present Electronically Signed On 06-08-2024 22:40:05 CDT by Mckinley Stark M.D. [email or web address] [id number]
--- NOTE | 2024-06-08 18:35 | PC.NURSE ---
Patient called out from her room at approximately 1830, patient complains of 8/[address] Gayle notified via telephone and order for EKG and Troponin, stat received.
[2024-06-08 18:57] LABS: Troponin T (5th) Once 173 ng/L (0-10)
[2024-06-08] MEDS: morphine 4 mg/mL SDV 1 mL 2 MG IVP (19:05)
[2024-06-08 21:02] LABS: Glucose Point of Care 362 mg/dL (70-110)
[2024-06-09] VITALS (70 sets, daily range): BP systolic 112–165; BP diastolic 38–93; PULSE 58–97; RESP 11–44; TEMP 36.7–37; O2SAT 84–100
[2024-06-09 03:55] LABS: Basophils % 0.1 %; Hematocrit 33.2 % (36-47); Lymphocytes # 0.6 10^3/uL (0.8-4.8); Lymphocytes % 4.8 %; Mean Corpuscular Hemoglobin 27.2 pg (27-33); Mean Corpuscular Volume 87.8 fl (85-98); Mean Platelet Volume 9.6 fL (7.4-10.4); Monocytes # 0.4 10^3/uL (0.2-0.9); Monocytes % 3.4 %; Neutrophils # 10.59 10^3/uL (1.8-7.7); Neutrophils % 90.8 %; Nucleated Red Blood Cells % 0 %; Platelet Count 267 10^3/cmm (157-399); Red Blood Count 3.78 10^6/uL (3.85-5.65); White Blood Count 11.67 10^3/uL (3.29-11.43)
[2024-06-09] MEDS: piperacillin-tazobactam 3.375 GM in sodium chloride 0.9% (plus) 50 ML IV ×3 (04:05→18:29)
[2024-06-09] MEDS: methylPREDNISolone sod succ 40 mg/mL INJ IVP ×2 (04:05→09:30)
[2024-06-09 04:26] LABS: Alanine Aminotransferase 8 U/L (0-33); Albumin Level 3.2 g/dL (3.5-5.2); Alkaline Phosphatase 72 U/L (35-105); Anion Gap 13.8 (5-19); Aspartate Amino Transferase 14 U/L (0-32); Blood Urea Nitrogen 31 mg/dL (8-23); Calcium 8.1 mg/dL (8.5-10.5); Carbon Dioxide 26 mmol/L (22-29); Chloride 107 mmol/L (98-107); Creatinine Clr Calc Pharmacy 58.6028; Glucose 211 mg/dL (65-115); Magnesium 2.4 mg/dL (1.7-2.3); Osmolality Calculated 309 mOsm/kg (285-295); Phosphorus 4.2 mg/dL (2.5-4.5); Potassium 3.8 mmol/L (3.5-5.1); Sodium 143 mmol/L (136-145); Total Bilirubin 0.4 mg/dL (0.15-1.2); Total Protein 6.2 g/dL (6.6-8.7)
--- NOTE | 2024-06-09 06:00 | XRR_ITS ---
PROCEDURE INFORMATION: Exam: XR Chest Exam date and time: 06/09/2024 5:08 AM Age: 73 years old Clinical indication: Other: Hypoxia; Additional info: Intubated TECHNIQUE: Imaging protocol: Radiologic exam of the chest. Views: 1 view. COMPARISON: CR (CHEST, ) 06/08/2024 8:18 AM FINDINGS: Tubes, catheters and devices: Endotracheal and esophagogastric tubes have been removed. Left IJ central line is unchanged in expected position. Lungs: New bibasilar infiltrate/edema. Pleural spaces: New small left pleural effusion. Heart/Mediastinum: Unremarkable. No cardiomegaly. Bones/joints: Unremarkable. XR/XR chest 1V portable [id number] IMPRESSION: 1. New bibasilar infiltrate/edema. 2. New small left pleural effusion.
[2024-06-09] MEDS: regadenoson 0.4 Mg/5 ml Syringe IVP (07:35)
[2024-06-09] MEDS: ondansetron 2 mg/ML SDV 2 mL 4 MG IVP (07:45)
[2024-06-09] MEDS: morphine 4 mg/mL SDV 1 mL 2 MG IVP (07:56)
--- NOTE | 2024-06-09 08:16 | ECG_ITS ---
[facility] Test Date: 2024-06-09 Pat Name: Lady López Department: Room: ICU12 Gender: Female Systems Software Manager: : 1950 Requested By: Evelio Nieves Order Number: [id number] Kelby MD: Mckinley Stark M.D. Measurements Intervals [place] Rate: 60 P: 66 [place]: 182 QRS: -42 QRSD: 85 T: 63 QT: 415 QTc: 417 Interpretive Statements SINUS RHYTHM INFERIOR MYOCARDIAL INFARCTION , PROBABLY OLD [40+ ms Q WAVE AND/OR ST/T ABNORMALITY IN II/aVF] ANTEROSEPTAL MYOCARDIAL INFARCTION , OF INDETERMINATE AGE [40+ ms Q WAVE IN V1-V4] Compared to ECG 06/08/2024 18:26:33 Left-axis deviation no longer present Myocardial infarct finding still present Electronically Signed On 06-09-2024 21:02:20 CDT by Mckinley Stark M.D. [id number]
[2024-06-09 08:59] LABS: NT Pro B Type Natriuretic Pept 6080 pg/mL (0-125)
[2024-06-09] MEDS: pantoprazole 40 mg SDV IVP ×2 (09:30→19:36)
[2024-06-09] MEDS: bumetanide 0.25 mg/mL SDV 4 mL 1 MG IVP ×2 (09:31→19:36)
[2024-06-09] MEDS: clopidogrel 75 mg Tablet PO (09:32)
[2024-06-09] MEDS: aspirin 81 mg EC Tablet PO (09:32)
[2024-06-09] MEDS: docusate sodium 100 mg Capsule PO ×2 (09:32→18:29)
[2024-06-09] MEDS: enoxaparin 100 mg/mL Syringe SUBCUT ×2 (09:32→21:23)
[2024-06-09] MEDS: hyDRALAzine 25 mg Tablet PO ×3 (09:32→21:23)
[2024-06-09 09:42] LABS: Glucose Point of Care 288 mg/dL (70-110)
[2024-06-09] MEDS: insulin lispro 100 unit/1 mL SUBCUT ×3 (09:42→21:30)
[2024-06-09] MEDS: insulin glargine 100 units/1 mL 20 UNIT SUBCUT (09:42)
--- NOTE | 2024-06-09 10:16 | ECG_ITS ---
[facility] Date: 2024-06-09 Pat Name: Lady López Department: Room: ICU12 Gender: Female Director Of Market Research: : 1950 Requested By: Evelio Nieves Order Number: [id number] Kelby MD: Mckinley Stark M.D. Measurements Intervals [place] Rate: 68 P: 62 [place]: 176 QRS: -34 QRSD: 99 T: 44 QT: 403 QTc: 429 Interpretive Statements SINUS RHYTHM LEFT AXIS DEVIATION [QRS AXIS < -30] ANTEROSEPTAL MYOCARDIAL INFARCTION , OF INDETERMINATE AGE [40+ ms Q WAVE IN V1-V4] Compared to ECG 06/09/2024 09:14:55 Left-axis deviation now present Myocardial infarct finding still present Electronically Signed On 06-09-2024 21:10:55 CDT by Mckinley Stark M.D. [email or web address] [id number]
[2024-06-09 10:39] LABS: Troponin(5th) Baseline 207 ng/L (0-10)
[2024-06-09] MEDS: VANCOMYCIN ADD-Vantage 750 MG in 0.9% NaCl ADD-Vantage 250 ML 250 MG IV ×2 (10:50→23:27)
[2024-06-09 12:55] LABS: Troponin 5 2HR Delta 4.6 ABS# (0-10)
[2024-06-09 13:28] LABS: Troponin 5 2HR 211.6 ng/L (0-10)
[2024-06-09] MEDS: ipratropium-albuterol 3 mL Neb INHALATION ×2 (14:03→19:24)
[2024-06-09 14:51] LABS: Glucose Point of Care 277 mg/dL (70-110)
--- NOTE | 2024-06-09 15:06 | P.PN_ITS ---
Subjective 2 Subjective: Patient was seen this morning, she is alert to person, to place, to time, she follows commands, he does report shortness of breath, denies any lightheadedness, no dizziness, no nausea, no vomiting, Vitals/I&O/Wt Last Vital Signs Temp 98.0 F 06/09/24 09:45 Pulse 64 06/09/24 14:30 Resp 16 06/09/24 14:03 BP 140/63 06/09/24 14:30 Pulse Ox 96 06/09/24 14:30 O2 Del Method Nasal Cannula 06/09/24 14:03 O2 Flow Rate 3 06/09/24 14:03 FiO2 30 06/08/24 10:32 06/09/24 06/09/24 06/09/24 06:59 14:59 22:59 Intake Total 370 / 1548.084 330 / 330 Output Total 900 / 2550 Balance -530 / -1001.916 330 / 330 Weight last 48 hrs Weight 97.593 kg Weight 97 kg Physical Exam 2 Const: COMMON NORMALS: no acute distress and patient oriented x3 Resp: COMMON NORMALS: normal respiratory effort, No retractions and No use of accessory muscles AUSCULTATION: crackles and rales Cardio: COMMON NORMALS: regular rate, regular rhythm, S1 normal heart sound present and S2 normal heart sound present RATE: regular rate RHYTHM: r egular rhythm HEART SOUNDS: S1 normal heart sound present and S2 normal heart sound present GI: COMMON NORMALS: Normal to inspection, nondistended, normoactive bowel sounds present and non-tender Extremity: COMMON NORMALS: no pedal edema Neuro: COMMON NORMALS: patient oriented x3 Psych: COMMON NORMALS: mental status grossly normal Urinary Catheter Management: Mathew: Cath Placed During This Visit: yes Reason for Continuing Indwelling Catheter: Accurate Measurement of Urinary Output in Critically Ill Patients Urinary Catheter Date of Insertion: 06/07/24 Urinary Catheter Time of Insertion: 04:32 Data 06/09/24 03:26 06/09/24 03:26 Micro: Microbiology 06/07/24 06:21 Urine Culture - Final Urine,Clean Catch Escherichia coli 06/08/24 11:11 Blood Culture - Preliminary Blood NEGATIVE TO DATE 06/08/24 11:16 Blood Culture - Preliminary Blood NEGATIVE TO DATE 06/07/24 07:55 Gram Stain - Final Sputum - Endotracheal Tube Aspirate Sputum Culture - Final A&P Assessment and plan (1) Acute and chronic respiratory failure with hypercapnia: (2) Acute exacerbation of chronic obstructive pulmonary disease: (3) Pneumonia: Qualifiers: Laterality: bilateral Lung location: lower lobe of lung Pneumonia type: due to unspecified organism Qualified Code(s): J18.9 - Pneumonia, unspecified organism (4) Acute exacerbation of CHF (congestive heart failure): Qualifiers: Heart failure type: diastolic Qualified Code(s): I50.33 - Acute on chronic diastolic (congestive) heart failure (5) Non-ST elevation (NSTEMI) myocardial infarction: (6) UTI (urinary tract infection): (7) DM type 2 (diabetes mellitus, type 2): (8) Hypoglycemia: (9) [place] coma scale score 3-8, at arrival to emergency department: (10) Septic shock: (11) Respiratory acidosis: Plan Acute hypoxic respiratory failure with hypercapnia -Multifactorial -COPD exacerbation -With pneumonia -With systolic and diastolic CHF exacerbation -CT angiogram done in the emergency room negative for pulm embolism -Extubated 323 Plan -Monitor respiratory status closely -Continue BiPAP nightly, as needed during the day -Continue broad-spectrum antibiotic therapy -Continue vancomycin -Continue Zosyn -De-escalate to prednisone 40 mg daily -Continue IV diuresis Bumex 1 mg twice daily -Monitor respiratory status closely -PT OT -PT therapy eval, dysphagia evaluation, aspiration precautions Acute COPD exacerbation as above Pneumonia, as above Staphylococcal epidermidis bacteremia, likely contamination -1 out of 3 blood cultures positive, -Repeat blood cultures no growth so far -Continue vancomycin for now -Once repeat blood cultures are -48 hours, we will discontinue IV vancomycin Urinary tract infection -Urine cultures growing E. coli -Continue Zosyn as above Acute systolic and diastolic CHF exacerbation -Continue Bumex 1 mg twice daily -Monitor urine output, monitor creatinine Hypoglycemia, monitor Septic shock, resolved Bradycardia, monitor Hypertension, resume hydralazine Type 2 diabetes mellitus Lantus 20 units in the morning, low-dose sliding scale NSTEMI -No chest pain complaints -Stress test to be done today CODE STATUS: Full code PUD prophylaxis: Protonix DVT prophylaxis: Full dose Lovenox will be sufficient for DVT prophylaxis Discharge planning: Back to SNF once patient is medically stable PDMP PDMP Reviewed: Not Reviewed Attestations 2 Medical Necessity Statement*: Patient requires hospitalization for acute hypoxic respiratory failure, pneumonia, CHF, COPD, UTI Diagnoses Acute and chronic respiratory failure with hypercapnia J96.22 Acute exacerbation of chronic obstructive pulmonary disease J44.1 Pneumonia of both lower lobes due to infectious organism J18.9 Laterality: bilateral Lung location: lower lobe of lung Pneumonia type: due to unspecified organism Acute on chronic diastolic congestive heart failure I50.33 Heart failure type: diastolic Non-ST elevation (NSTEMI) myocardial infarction I21.4 UTI (urinary tract infection) N39.0 DM type 2 (diabetes mellitus, type 2) E11.9 Hypoglycemia E16.2 [place] coma scale score 3-8, at arrival to emergency department R40.2432 Septic shock A41.9; R65.21 Respiratory acidosis E87.29
[2024-06-09 16:20] LABS: Troponin 5 6HR 219.7 ng/L (0-10); Troponin 5 6HR Delta 12.7 ng/L (0-12)
--- NOTE | 2024-06-09 18:21 | NMCV_ITS ---
NM bud perf SPECT r/s* [id number] Lady López Age: 73 Gender: F : 1950 Exam Date: 06/09/2024 18:21 Ordering Phys: Troy Gayle MD Technologist: MILLICENT Santos Exam Location: [facility] Indications: cp STRESS TEST Please see separate stress test report in [facility] for full findings IMAGE PROTOCOL Rest/Stress 1 Lexiscan Day Radiopharmaceutical Dose (mCi) Administration Site Administered by Rest: Tc-99m 11 IV Alice Ponce, [employer] Sestamibi Stress:Tc-99m 32.9 IV Alice Ponce, [employer] MARK[employer]OCIATE Sestamibi Rest: 09-Jun-2024 60 Discovery 630 Stress: 09-Jun-2024 30 Discovery 630 0.4mg Lexiscan. Supine position only as patient was unable to lay prone. SPECT RESULTS Technical Quality: Good Raw Data Analysis: Normal Image Corrections: No attenuation or motion correction applied Summed Stress Score: 6 Summed Rest Score: 8 Summed Difference Score: 0 PERFUSION FINDINGS Medium sized area of fixed perfusion defect seen in the inferolateral and inferior reeves. 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 No evidence of ischemia. FUNCTIONAL RESULTS (calculated via Gated SPECT) Stress Image LV EF (%): 61 Stress EDV (mL):131 TID: 1.04 Stress ESV (mL):51 FUNCTIONAL FINDINGS: There is normal left ventricular systolic function. IMPRESSIONS 1. Medium sized area of prior infarct seen in the left circumflex artery and RCA territories. No evidence of ischemia 2. LV systolic function is normal Bryan Posadas MD (Electronically Signed) Final Date: 09 June 2024 10:17 S
[2024-06-09] MEDS: budesonide 0.5 mg/2 mL Neb INHALATION (19:24)
[2024-06-09 20:55] LABS: Glucose Point of Care 249 mg/dL (70-110)
[2024-06-09 23:02] LABS: Vancomycin Trough 15.3 ug/mL (10-15)
[2024-06-09] MEDS: ropinirole 0.25 mg Tablet PO (23:41)
[2024-06-10] VITALS (25 sets, daily range): BP systolic 123–167; BP diastolic 50–97; PULSE 54–73; RESP 13–22; TEMP 36.5–36.8; O2SAT 93–100
[2024-06-10] MEDS: piperacillin-tazobactam 3.375 GM in sodium chloride 0.9% (plus) 50 ML IV ×3 (02:14→17:36)
[2024-06-10 04:57] LABS: Eosinophils % 0.1 %; Hematocrit 31.8 % (36-47); Lymphocytes % 9.2 %; Mean Corpuscular HGB Conc 31.1 g/dL (30-55); Mean Corpuscular Hemoglobin 27.3 pg (27-33); Mean Corpuscular Volume 87.6 fl (85-98); Mean Platelet Volume 9.4 fL (7.4-10.4); Monocytes % 9.6 %; Neutrophils # 8.46 10^3/uL (1.8-7.7); Neutrophils % 80.8 %; Nucleated Red Blood Cells % 0 %; Platelet Count 229 10^3/cmm (157-399); Red Blood Count 3.63 10^6/uL (3.85-5.65); White Blood Count 10.47 10^3/uL (3.29-11.43)
[2024-06-10 05:29] LABS: Alanine Aminotransferase 8 U/L (0-33); Albumin Level 3.2 g/dL (3.5-5.2); Alkaline Phosphatase 60 U/L (35-105); Anion Gap 10.3 (5-19); Aspartate Amino Transferase 9 U/L (0-32); Blood Urea Nitrogen 31 mg/dL (8-23); Calcium 7.7 mg/dL (8.5-10.5); Carbon Dioxide 26 mmol/L (22-29); Chloride 105 mmol/L (98-107); Globulin 2.6 g/dL (1.3-4.6); Glucose 138 mg/dL (65-115); Magnesium 2.3 mg/dL (1.7-2.3); Osmolality Calculated 295 mOsm/kg (285-295); Potassium 3.3 mmol/L (3.5-5.1); Sodium 138 mmol/L (136-145); Total Bilirubin 0.2 mg/dL (0.15-1.2); Total Protein 5.8 g/dL (6.6-8.7)
[2024-06-10 05:31] LABS: NT Pro B Type Natriuretic Pept 4946 pg/mL (0-125); Procalcitonin 0.67 ng/mL (0-0.5)
--- NOTE | 2024-06-10 06:00 | XRR_ITS ---
PROCEDURE INFORMATION: Exam: XR Chest Exam date and time: 06/10/2024 5:10 AM Age: 73 years old Clinical indication: Device placement; Ett placement (vent status); Additional info: Intubated TECHNIQUE: Imaging protocol: Radiologic exam of the chest. Views: 1 view. COMPARISON: CR XR chest 1V portable [id number] 06/09/2024 5:08 AM FINDINGS: Lungs: Unremarkable. No consolidation. Pleural spaces: Unremarkable. No pleural effusion. No pneumothorax. Heart/Mediastinum: Unremarkable. No cardiomegaly. Bones/joints: Unremarkable. Improved CHF with diminished vascular and interstitial edema, only a small left pleural effusion and scant atelectasis or infiltrate persists at the left lung base. Left central line terminates near the atriocaval junction. Mild cardiomegaly and uncoiling of the thoracic aorta. XR/XR chest 1V portable [id number] IMPRESSION: Resolving CHF with mild residual opacity at the left lung base.
[2024-06-10 08:19] LABS: Glucose Point of Care 136 mg/dL (70-110)
[2024-06-10] MEDS: budesonide 0.5 mg/2 mL Neb INHALATION ×2 (08:22→20:21)
[2024-06-10] MEDS: ipratropium-albuterol 3 mL Neb INHALATION ×3 (08:22→20:21)
[2024-06-10] MEDS: predniSONE 20 mg Tablet 40 MG PO (09:06)
[2024-06-10] MEDS: hyDRALAzine 25 mg Tablet PO ×3 (09:06→20:34)
[2024-06-10] MEDS: clopidogrel 75 mg Tablet PO (09:06)
[2024-06-10] MEDS: aspirin 81 mg EC Tablet PO (09:06)
[2024-06-10] MEDS: bumetanide 0.25 mg/mL SDV 4 mL 1 MG IVP ×2 (09:06→20:34)
[2024-06-10] MEDS: docusate sodium 100 mg Capsule PO ×2 (09:06→17:36)
[2024-06-10] MEDS: insulin glargine 100 units/1 mL 20 UNIT SUBCUT (09:06)
[2024-06-10] MEDS: pantoprazole 40 mg SDV IVP ×2 (09:06→20:34)
[2024-06-10] MEDS: apixaban 5 mg Tablet PO ×2 (09:08→20:58)
[2024-06-10] MEDS: iron complex forte Capsule 1 EACH PO (09:31)
[2024-06-10] MEDS: VANCOMYCIN ADD-Vantage 750 MG in 0.9% NaCl ADD-Vantage 250 ML 250 MG IV (10:31)
--- NOTE | 2024-06-10 11:30 | PC.NURSE ---
Report called to CSU at [id number]
[2024-06-10 12:10] LABS: Glucose Point of Care 235 mg/dL (70-110)
[2024-06-10] MEDS: insulin lispro 100 unit/1 mL SUBCUT ×3 (12:40→20:58)
--- NOTE | 2024-06-10 13:30 | PM.PN ---
Vitals/I&O/Wt Last Vital Signs Temp 97.7 F 06/10/24 12:00 Pulse 69 06/10/24 13:26 Resp 17 06/10/24 13:26 BP 154/50 06/10/24 12:00 Pulse Ox 98 06/10/24 13:26 O2 Del Method Nasal Cannula 06/10/24 13:26 O2 Flow Rate 2 06/10/24 13:26 FiO2 30 06/08/24 10:32 06/09/24 06/10/24 06/10/24 22:59 06:59 14:59 Intake Total 480 / 1220 350 / 1570 250 / 250 Output Total 1250 / 1250 1100 / 2350 600 / 600 Balance -770 / -30 -750 / -780 -350 / -350 Weight last 48 hrs Weight 97.593 kg Physical Exam Const: COMMON NORMALS: no acute distress and patient oriented x3 Resp: COMMON NORMALS: normal respiratory effort, No retractions and No use of accessory muscles AUSCULTATION: crackles and wheezes Cardio: COMMON NORMALS: regular rate, regular rhythm, S1 normal heart sound present and S2 normal heart sound present RATE: regular rate RHYTHM: regular rhythm HEART SOUNDS: S1 normal heart sound present and S2 normal heart sound present GI: COMMON NORMALS: Normal to inspection, nondistended, normoactive bowel sounds present and non-tender Extremity: COMMON NORMALS: no pedal edema Neuro: COMMON NORMALS: patient oriented x3 Psych: COMMON NORMALS: mental status grossly normal Urinary Catheter Management: Mathew: Cath Placed During This Visit: yes Reason for Continuing Indwelling Catheter: Accurate Measurement of Urinary Output in Critically Ill Patients Urinary Catheter Date of Insertion: 06/07/24 Urinary Catheter Time of Insertion: 04:32 Data 06/10/24 04:42 06/10/24 04:42 Micro: Microbiology 06/07/24 06:21 Urine Culture - Final Urine,Clean Catch Escherichia coli 06/08/24 11:11 Blood Culture - Preliminary Blood NEGATIVE TO DATE 06/08/24 11:16 Blood Culture - Preliminary Blood NEGATIVE TO DATE 06/07/24 07:55 Gram Stain - Final Sputum - Endotracheal Tube Aspirate Sputum Culture - Final A&P Assessment and plan (1) Acute and chronic respiratory failure with hypercapnia: (2) Acute exacerbation of chronic obstructive pulmonary disease: (3) Pneumonia: Qualifiers: Laterality: bilateral Lung location: lower lobe of lung Pneumonia type: due to unspecified organism Qualified Code(s): J18.9 - Pneumonia, unspecified organism (4) Acute exacerbation of CHF (congestive heart failure): Qualifiers: Heart failure type: diastolic Qualified Code(s): I50.33 - Acute on chronic diastolic (congestive) heart failure (5) Non-ST elevation (NSTEMI) myocardial infarction: (6) UTI (urinary tract infection): (7) DM type 2 (diabetes mellitus, type 2): (8) Hypoglycemia: (9) [place] coma scale score 3-8, at arrival to emergency department: (10) Septic shock: (11) Respiratory acidosis: Plan Acute hypoxic respiratory failure with hypercapnia -Multifactorial -COPD exacerbation -With pneumonia -With systolic and diastolic CHF exacerbation -CT angiogram done in the emergency room negative for pulm embolism -Extubated 323 Plan -Monitor respiratory status closely -Continue BiPAP nightly, as needed during the day -Continue broad-spectrum antibiotic therapy -Continue vancomycin -Continue Zosyn -De-escalate to prednisone 40 mg daily -Continue IV diuresis Bumex 1 mg twice daily -Monitor respiratory status closely -PT OT -PT therapy eval, dysphagia evaluation, aspiration precautions Acute COPD exacerbation as above Pneumonia, as above Staphylococcal epidermidis bacteremia, likely contamination -1 out of 3 blood cultures positive, -Repeat blood cultures no growth so far -Continue vancomycin for now -Once repeat blood cultures are -48 hours, we will discontinue IV vancomycin Urinary tract infection -Urine cultures growing E. coli -Continue Zosyn as above Acute systolic and diastolic CHF exacerbation -Continue Bumex 1 mg twice daily -Monitor urine output, monitor creatinine Hypoglycemia, monitor Septic shock, resolved Bradycardia, monitor Hypertension, resume hydralazine Type 2 diabetes mellitus Lantus 20 units in the morning, low-dose sliding scale NSTEMI -No chest pain complaints -Stress test to be done today IMPRESSIONS 1. Medium sized area of prior infarct seen in the left circumflex artery and RCA territories. No evidence of ischemia 2. LV systolic function is normal CODE STATUS: Full code PUD prophylaxis: Protonix DVT prophylaxis: Full dose Lovenox will be sufficient for DVT prophylaxis Discharge planning: Back to SNF once patient is medically stable Plan for today IV antibiotics, IV Lasix, moved to cardiac stepdown unit PDMP PDMP Reviewed: Not Reviewed Attestations Medical Necessity Statement*: Patient requires hospitalization for UTI, respiratory failure, pneumonia Diagnoses Acute and chronic respiratory failure with hypercapnia J96.22 Acute exacerbation of chronic obstructive pulmonary disease J44.1 Pneumonia of both lower lobes due to infectious organism J18.9 Laterality: bilateral Lung location: lower lobe of lung Pneumonia type: due to unspecified organism Acute on chronic diastolic congestive heart failure I50.33 Heart failure type: diastolic Non-ST elevation (NSTEMI) myocardial infarction I21.4 UTI (urinary tract infection) N39.0 DM type 2 (diabetes mellitus, type 2) E11.9 Hypoglycemia E16.2 [place] coma scale score 3-8, at arrival to emergency department R40.2432 Septic shock A41.9; R65.21 Respiratory acidosis E87.29
[2024-06-10 14:56] LABS: Glucose Point of Care 296 mg/dL (70-110)
--- NOTE | 2024-06-10 15:56 | PC.NURSE ---
Provider is updated that patient has coughed up mucus with a blood tinge in it. Provider ordered to hold all blood thinners.
[2024-06-10 16:15] LABS: Glucose Point of Care 285 mg/dL (70-110)
[2024-06-10] MEDS: ropinirole 0.25 mg Tablet PO (20:34)
[2024-06-10 20:43] LABS: Glucose Point of Care 273 mg/dL (70-110)
[2024-06-11] VITALS (10 sets, daily range): BP systolic 138–169; BP diastolic 50–74; PULSE 62–69; RESP 14–20; TEMP 36.6–37.1; O2SAT 94–99
[2024-06-11] MEDS: acetaminophen 325 mg Tablet 650 MG PO (01:17)
[2024-06-11] MEDS: piperacillin-tazobactam 3.375 GM in sodium chloride 0.9% (plus) 50 ML IV ×2 (01:18→08:54)
[2024-06-11] MEDS: HYDROcodone-acetaminophen 5-325 mg Tablet 1 TAB PO ×2 (02:05→20:41)
[2024-06-11] MEDS: ipratropium-albuterol 3 mL Neb INHALATION ×3 (04:15→13:05)
[2024-06-11 04:21] LABS: Basophils % 0.1 %; Eosinophils # 0.1 10^3/uL (0.0-0.8); Eosinophils % 0.6 %; Lymphocytes # 1.7 10^3/uL (0.8-4.8); Lymphocytes % 18.2 %; Mean Corpuscular HGB Conc 31.3 g/dL (30-55); Mean Corpuscular Volume 86.2 fl (85-98); Mean Platelet Volume 9.3 fL (7.4-10.4); Monocytes # 0.9 10^3/uL (0.2-0.9); Monocytes % 9.4 %; Neutrophils # 6.68 10^3/uL (1.8-7.7); Neutrophils % 71.4 %; Nucleated Red Blood Cells % 0 %; Platelet Count 204 10^3/cmm (157-399); Red Blood Count 3.48 10^6/uL (3.85-5.65); Red Cell Distribution Width 14.6 % (12.1-15.1); White Blood Count 9.37 10^3/uL (3.29-11.43)
[2024-06-11 04:42] LABS: Alanine Aminotransferase 8 U/L (0-33); Albumin Level 3.3 g/dL (3.5-5.2); Alkaline Phosphatase 58 U/L (35-105); Aspartate Amino Transferase 10 U/L (0-32); Blood Urea Nitrogen 28 mg/dL (8-23); Calcium 7.5 mg/dL (8.5-10.5); Carbon Dioxide 26 mmol/L (22-29); Chloride 103 mmol/L (98-107); Globulin 2.2 g/dL (1.3-4.6); Glucose 133 mg/dL (65-115); Osmolality Calculated 293 mOsm/kg (285-295); Sodium 138 mmol/L (136-145); Total Bilirubin 0.2 mg/dL (0.15-1.2); Total Protein 5.5 g/dL (6.6-8.7)
[2024-06-11 04:44] LABS: Anion Gap 12.6 (5-19); Potassium 3.6 mmol/L (3.5-5.1)
[2024-06-11 04:49] LABS: NT Pro B Type Natriuretic Pept 4241 pg/mL (0-125); Procalcitonin 0.34 ng/mL (0-0.5)
[2024-06-11 06:37] LABS: Glucose Point of Care 122 mg/dL (70-110)
[2024-06-11] MEDS: aspirin 81 mg EC Tablet PO (08:52)
[2024-06-11] MEDS: apixaban 5 mg Tablet PO ×2 (08:53→20:19)
[2024-06-11] MEDS: bumetanide 0.25 mg/mL SDV 4 mL 1 MG IVP ×2 (08:53→20:19)
[2024-06-11] MEDS: clopidogrel 75 mg Tablet PO (08:53)
[2024-06-11] MEDS: docusate sodium 100 mg Capsule PO ×2 (08:53→18:06)
[2024-06-11] MEDS: hyDRALAzine 25 mg Tablet PO ×3 (08:53→20:19)
[2024-06-11] MEDS: predniSONE 20 mg Tablet 40 MG PO (08:53)
[2024-06-11] MEDS: pantoprazole 40 mg SDV IVP ×2 (08:53→20:19)
[2024-06-11] MEDS: iron complex forte Capsule 1 EACH PO (08:54)
[2024-06-11] MEDS: insulin glargine 100 units/1 mL 20 UNIT SUBCUT (08:54)
--- NOTE | 2024-06-11 09:31 | PM.CONSULT ---
Providers/Reason For Consult Attending Physician: Evelio Nieves MD Primary Care Provider: Avtar Bruce MD History of Present Illness History of Present Illness Lady López is a 73 year old female Medications/Allergies Home Medications ?Medication ?Instructions ?Recorded ?Confirmed ?Last Taken ?Type acetaminophen 500 mg capsule 1,000 mg PO Q8H PRN Pain 02/01/23 06/07/24 01/15/24 History apixaban 5 mg tablet (Eliquis) 5 mg PO BID #90 tabs 03/15/23 06/07/24 01/15/24 Rx pantoprazole 40 mg tablet,delayed 40 mg PO DAILY for stomach #90 tabs 03/15/23 06/07/24 01/15/24 Rx release insulin glargine 100 unit/mL 20 unit SUBCUT DAILY 03/22/23 06/07/24 01/15/24 History subcutaneous solution (Lantus U-100 Insulin) insulin lispro 100 unit/mL 5 unit SUBCUT .sliding scale 05/18/23 06/07/24 Unknown History subcutaneous pen (Humalog KwikPen (U-100) Insulin) albuterol sulfate 90 mcg/actuation 2 inh inhalation Q6H PRN shortness 07/17/23 06/07/24 01/15/24 Rx aerosol inhaler of breath or wheezing #8.5 grams sacubitril 49 mg-valsartan 51 mg 1 tab PO BID 12/28/23 06/07/24 01/15/24 History tablet (Entresto) dapagliflozin propanediol 10 mg 10 mg PO DAILY #30 tabs 01/20/24 06/07/24 Unknown Rx tablet (Farxiga) hydralazine 25 mg tablet 25 mg PO TID #90 tabs 01/20/24 06/07/24 Unknown Rx amlodipine 10 mg tablet (Norvasc) 10 mg PO DAILY 06/07/24 06/07/24 Unknown History bumetanide 1 mg tablet 1 mg PO Q24H 06/07/24 06/07/24 Unknown History bumetanide 2 mg tablet 2 mg PO BID 06/07/24 06/07/24 Unknown History calcium 500 mg (as 1 tab PO DAILY 06/07/24 06/07/24 Unknown History carbonate)-vitamin D3 5 mcg (200 unit) tablet ([place]yster [place] Calcium-Vitamin D3) carvedilol 25 mg tablet 25 mg PO BID 06/07/24 06/07/24 Unknown History clopidogrel 75 mg tablet 75 mg PO DAILY 06/07/24 06/07/24 Unknown History ondansetron HCl 4 mg tablet 4 mg PO Q6H PRN Nausea And Vomiting 06/07/24 06/07/24 Unknown History polyethylene glycol 3350 17 17 g PO DAILY 06/07/24 06/07/24 Unknown History gram/dose oral powder tiotropium bromide 2.5 2 puff inhalation DAILY 06/07/24 06/07/24 Unknown History mcg/actuation mist for inhalation (Spiriva Respimat) tramadol 50 mg tablet 100 mg PO BID 06/07/24 06/07/24 Unknown History Allergies Allergy/AdvReac Type Severity Reaction Status Date / Time codeine Allergy Unknown ADR-Diarrhe Verified 12/28/23 10:58 a tetanus and diphtheria Allergy Unknown Unknown Verified 12/28/23 10:58 toxoids atorvastatin Allergy ADR-Faintin Verified 12/28/23 10:58 g Current Medications Generic Name Dose Route Start Last Admin Trade Name Freq PRN Reason Stop Dose Admin Acetaminophen 650 mg 06/07/24 08:06 06/11/24 01:17 Acetaminophen 325 Mg Tablet PO 650 mg Q6H PRN Administration Mild/Mod Pain Or Temp >/= 101 Hydrocodone Bitart/Acetaminophen 1 tab 06/08/24 14:08 06/11/24 02:05 Hydrocodone-Acetaminophen 5-325 Mg Tablet PO 1 tab Q6H PRN Administration MODERATE PAIN Albuterol/Ipratropium 3 ml 06/07/24 08:06 06/11/24 04:15 Ipratropium-Albuterol 3 Ml Neb INHALATION 3 ml Q6H.RESP NAHUM Administration Apixaban 5 mg 06/10/24 09:00 06/11/24 08:53 Apixaban 5 Mg Tablet PO 5 mg BID@0900,2100 NAHUM Administration Aspirin 81 mg 06/08/24 09:00 06/11/24 08:52 Aspirin 81 Mg Ec Tablet PO 81 mg DAILY NAHUM Administration Budesonide 0.5 mg 06/07/24 09:00 06/10/24 20:21 Budesonide 0.5 Mg/2 Ml Neb INHALATION 0.5 mg BID.RESPIRATORY NAHUM Administration Bumetanide 1 mg 06/07/24 08:15 06/11/24 08:53 Bumetanide 0.25 Mg/Ml Sdv 4 Ml IVP 1 mg Q12H NAHUM Administration Clopidogrel Bisulfate 75 mg 06/07/24 09:00 06/11/24 08:53 Clopidogrel 75 Mg Tablet PO 75 mg DAILY [facility] Administration Docusate Sodium 100 mg 06/07/24 09:00 06/11/24 08:53 Docusate Sodium 100 Mg Capsule PO 100 mg BID [facility] Administration Folic Acid/Iron/Vitamin B12 1 each 06/10/24 09:00 06/11/24 08:54 Iron Complex Forte Capsule PO 1 each DAILY [facility] Administration Hydralazine HCl 25 mg 06/08/24 15:00 06/11/24 08:53 Hydralazine 25 Mg Tablet PO 25 mg TID [facility] Administration Piperacillin Sod/Tazobactam 50 mls @ 12.5 mls/hr 06/07/24 10:30 06/11/24 08:54 Sod 3.375 gm/ Sodium Chloride IV 12.5 mls/hr Q8H [facility] Administration Insulin Glargine 20 unit 06/07/24 09:00 06/11/24 08:54 Insulin Glargine 100 Units/1 Ml SUBCUT 20 unit DAILY [facility] Administration Insulin Human Lispro 0 unit 06/09/24 21:00 06/11/24 07:04 Insulin Lispro 100 Unit/1 Ml SUBCUT Not Given WM&BEDTIME [facility] Protocol Lanolin 1 applic 06/07/24 13:24 06/08/24 09:58 Lanolin Oint 7 Gm TOPICAL 1 applic PRN PRN Administration DRYNESS Morphine Sulfate 2 mg 06/07/24 08:06 06/09/24 07:56 Morphine 4 Mg/Ml Sdv 1 Ml IVP 2 mg Q4H PRN Administration SEVERE PAIN Ondansetron HCl 4 mg 06/09/24 06:25 06/09/24 07:45 Ondansetron 2 Mg/Ml Sdv 2 Ml IVP 4 mg Q2M PRN Administration NAUSEA Pantoprazole Sodium 40 mg 06/07/24 08:06 06/11/24 08:53 Pantoprazole 40 Mg Sdv IVP 40 mg Q12H [facility] Administration Prednisone 40 mg 06/10/24 09:00 06/11/24 08:53 Prednisone 20 Mg Tablet PO 40 mg DAILY [facility] Administration Ropinirole HCl 0.25 mg 06/09/24 23:32 06/10/24 20:34 Ropinirole 0.25 Mg Tablet PO 0.25 mg BEDTIME [facility] Administration PFSH Acute PFSH: Medical History (Updated 06/08/24 @ 14:13 by Troy Gayle MD) Non-ST elevation (NSTEMI) myocardial infarction Fracture of left hip requiring operative repair Atherosclerosis of coronary artery Fracture, intertrochanteric, left femur Left radial head fracture Open fracture of distal ends of both radius and ulna Hearing loss Gastroparesis Orthostasis Supplemental oxygen dependent Failure to thrive in adult Hyperglycemia Anemia Hyponatremia Nausea & vomiting Dilation of pulmonary artery GERD (gastroesophageal reflux disease) Restless leg syndrome Presence of stent in coronary artery in patient with coronary artery disease Heart failure with preserved ejection fraction Altered mental status Diabetes CHF (congestive heart failure) Hyperlipidemia Pulmonary embolism DKA (diabetic ketoacidosis) Hypertensive urgency DM type 2 (diabetes mellitus, type 2) Arthritis Asthma HTN (hypertension) Small bowel mass Surgical History (Updated 06/07/24 @ 10:53 by Troy Gayle MD) S/P ORIF (open reduction internal fixation) fracture Hx of cholecystectomy Family History Other Cancer Stroke Social History Smoking and tobacco/nicotine status: never used tobacco/nicotine Alcohol intake: never Substance/Drug Use: never Lives independently: Yes Household members: none Marital status: / Vitals/I&O/Wt Last Vital Signs Temp 98.6 F 06/11/24 08:00 Pulse 69 06/11/24 08:00 Resp 20 H 06/11/24 08:00 BP 138/50 06/11/24 08:00 Pulse Ox 99 06/11/24 08:00 O2 Del Method Nasal Cannula 06/11/24 08:00 O2 Flow Rate 2 06/11/24 08:00 FiO2 30 06/08/24 10:32 06/10/24 06/11/24 06/11/24 22:59 06:59 14:59 Intake Total 580 / 1070 50 / 1120 240 / 240 Output Total 550 / 1150 800 / 1950 Balance 30 / -80 -750 / -830 240 / 240 Weight last 48 hrs Weight 220 lb 4.8 oz Physical Exam Urinary Catheter Management: Mathew: Cath Placed During This Visit: yes Reason for Continuing Indwelling Catheter: Accurate Measurement of Urinary Output in Critically Ill Patients Urinary Catheter Date of Insertion: 06/07/24 Urinary Catheter Time of Insertion: 04:32 Data 06/11/24 04:11 06/11/24 04:11 A&P PDMP PDMP Reviewed: Not Reviewed Coding Level of Care Code Acute Code for Chg Kenny
[2024-06-11] MEDS: budesonide 0.5 mg/2 mL Neb INHALATION (09:37)
[2024-06-11 12:04] LABS: Glucose Point of Care 238 mg/dL (70-110)
[2024-06-11] MEDS: insulin lispro 100 unit/1 mL SUBCUT ×3 (12:27→20:41)
--- NOTE | 2024-06-11 14:25 | P.PN_ITS ---
Subjective 2 Subjective: Patient was seen this morning, she tells me that she sat up in the chair yesterday, continues to have edema, episodes of shortness of breath, no cough, no fevers Vitals/I&O/Wt Last Vital Signs Temp 98.5 F 06/11/24 12:00 Pulse 66 06/11/24 13:05 Resp 16 06/11/24 13:05 BP 163/61 06/11/24 12:00 Pulse Ox 99 06/11/24 13:05 O2 Del Method Nasal Cannula 06/11/24 13:05 O2 Flow Rate 2 06/11/24 13:05 FiO2 30 06/08/24 10:32 06/10/24 06/11/24 06/11/24 22:59 06:59 14:59 Intake Total 580 / 1070 50 / 1120 530 / 530 Output Total 550 / 1150 800 / 1950 Balance 30 / -80 -750 / -830 530 / 530 Weight last 48 hrs Weight 99.926 kg Physical Exam 2 Const: COMMON NORMALS: no acute distress and patient oriented x3 Resp: COMMON NORMALS: normal respiratory effort, No retractions and No use of accessory muscles OTHER: Crackles in all lung wong Cardio: COMMON NORMALS: regular rate, regular rhythm, S1 normal heart sound present and S2 normal heart sound present RATE: regular rate RHYTHM: r egular rhythm HEART SOUNDS: S1 normal heart sound present and S2 normal heart sound present GI: COMMON NORMALS: Normal to inspection, nondistended, normoactive bowel sounds present and non-tender Extremity: NARRATIVE EXTREMITY EXAM: 1+ pitting edema Neuro: COMMON NORMALS: patient oriented x3 Urinary Catheter Management: Mathew: Cath Placed During This Visit: yes Reason for Continuing Indwelling Catheter: Accurate Measurement of Urinary Output in Critically Ill Patients Urinary Catheter Date of Insertion: 06/07/24 Urinary Catheter Time of Insertion: 04:32 Data 06/11/24 04:11 06/11/24 04:11 Micro: Microbiology 06/07/24 04:22 Blood Culture - Preliminary Blood Staph capitis sub ureolyticus Staphylococcus epidermidis A&P Assessment and plan (1) Acute and chronic respiratory failure with hypercapnia: (2) Acute exacerbation of chronic obstructive pulmonary disease: (3) Pneumonia: Qualifiers: Laterality: bilateral Lung location: lower lobe of lung Pneumonia type: due to unspecified organism Qualified Code(s): J18.9 - Pneumonia, unspecified organism (4) Acute exacerbation of CHF (congestive heart failure): Qualifiers: Heart failure type: diastolic Qualified Code(s): I50.33 - Acute on chronic diastolic (congestive) heart failure (5) Non-ST elevation (NSTEMI) myocardial infarction: (6) UTI (urinary tract infection): (7) DM type 2 (diabetes mellitus, type 2): (8) Hypoglycemia: (9) [place] coma scale score 3-8, at arrival to emergency department: (10) Septic shock: (11) Respiratory acidosis: Plan Acute hypoxic respiratory failure with hypercapnia -Multifactorial -COPD exacerbation -With pneumonia -With systolic and diastolic CHF exacerbation -CT angiogram done in the emergency room negative for pulm embolism -Extubated 323 Plan -Monitor respiratory status closely -Continue BiPAP nightly, as needed during the day -Continue broad-spectrum antibiotic therapy de-escalated to cefdinir -De-escalate to prednisone 40 mg daily -Continue IV diuresis Bumex 1 mg twice daily -Monitor respiratory status closely -PT OT -PT therapy eval, dysphagia evaluation, aspiration precautions Acute COPD exacerbation as above Pneumonia, as above Staphylococcal epidermidis bacteremia/capitis, likely contamination -1 out of 3 blood cultures positive, -Repeat blood cultures no growth so far -Discontinue vancomycin Urinary tract infection -Urine cultures growing E. coli -as above Acute systolic and diastolic CHF exacerbation -Continue Bumex 1 mg twice daily -Monitor urine output, monitor creatinine Hypoglycemia, monitor Septic shock, resolved Bradycardia, monitor Hypertension, resume hydralazine Type 2 diabetes mellitus Lantus 20 units in the morning, low-dose sliding scale NSTEMI -No chest pain complaints -Stress test to be done today IMPRESSIONS 1. Medium sized area of prior infarct seen in the left circumflex artery and RCA territories. No evidence of ischemia 2. LV systolic function is normal CODE STATUS: Full code PUD prophylaxis: Protonix DVT prophylaxis: Full dose Lovenox will be sufficient for DVT prophylaxis Discharge planning: Back to SNF once patient is medically stable Plan for today IV diuresis, PDMP PDMP Reviewed: Not Reviewed Attestations 2 Medical Necessity Statement*: Patient requires hospitalization for acute hypoxic respiratory failure requiring IV diuresis Diagnoses Acute and chronic respiratory failure with hypercapnia J96.22 Acute exacerbation of chronic obstructive pulmonary disease J44.1 Pneumonia of both lower lobes due to infectious organism J18.9 Laterality: bilateral Lung location: lower lobe of lung Pneumonia type: due to unspecified organism Acute on chronic diastolic congestive heart failure I50.33 Heart failure type: diastolic Non-ST elevation (NSTEMI) myocardial infarction I21.4 UTI (urinary tract infection) N39.0 DM type 2 (diabetes mellitus, type 2) E11.9 Hypoglycemia E16.2 [place] coma scale score 3-8, at arrival to emergency department R40.2432 Septic shock A41.9; R65.21 Respiratory acidosis E87.29
[2024-06-11] MEDS: metOLazone 5 MG Tablet PO (15:25)
[2024-06-11 16:40] LABS: Glucose Point of Care 261 mg/dL (70-110)
[2024-06-11] MEDS: cefdinir 300 MG CAPSULE PO (18:06)
[2024-06-11] MEDS: ropinirole 0.25 mg Tablet PO (20:19)
[2024-06-11 20:28] LABS: Glucose Point of Care 315 mg/dL (70-110)
[2024-06-12] VITALS: BP 159/91; PULSE 66; RESP 19; TEMP 36.7; O2SAT 98
[2024-06-12 03:00] VITALS: PULSE 58; RESP 18; O2SAT 98
[2024-06-12] MEDS: ipratropium-albuterol 3 mL Neb INHALATION ×2 (03:07→07:48)
[2024-06-12 03:44] LABS: Eosinophils # 0.1 10^3/uL (0.0-0.8); Eosinophils % 1.1 %; Lymphocytes # 1.6 10^3/uL (0.8-4.8); Lymphocytes % 19.8 %; Mean Corpuscular HGB Conc 31.7 g/dL (30-55); Mean Corpuscular Hemoglobin 27.1 pg (27-33); Mean Corpuscular Volume 85.3 fl (85-98); Mean Platelet Volume 9.7 fL (7.4-10.4); Monocytes # 0.7 10^3/uL (0.2-0.9); Monocytes % 8.9 %; Neutrophils # 5.76 10^3/uL (1.8-7.7); Neutrophils % 69.7 %; Nucleated Red Blood Cells % 0 %; Platelet Count 198 10^3/cmm (157-399); Red Cell Distribution Width 14.1 % (12.1-15.1); White Blood Count 8.27 10^3/uL (3.29-11.43)
[2024-06-12] MEDS: acetaminophen 325 mg Tablet 650 MG PO (03:53)
[2024-06-12 04:00] VITALS: BP 186/67; PULSE 64; RESP 22; TEMP 36.7; O2SAT 96
[2024-06-12 04:02] LABS: Alanine Aminotransferase 11 U/L (0-33); Albumin Level 3.3 g/dL (3.5-5.2); Alkaline Phosphatase 53 U/L (35-105); Anion Gap 11.7 (5-19); Aspartate Amino Transferase 13 U/L (0-32); Blood Urea Nitrogen 22 mg/dL (8-23); Calcium 7.8 mg/dL (8.5-10.5); Carbon Dioxide 27 mmol/L (22-29); Chloride 100 mmol/L (98-107); Creatinine Clr Calc Pharmacy 74.4279; Globulin 2.4 g/dL (1.3-4.6); Glucose 141 mg/dL (65-115); Osmolality Calculated 286 mOsm/kg (285-295); Potassium 3.7 mmol/L (3.5-5.1); Sodium 135 mmol/L (136-145); Total Bilirubin 0.3 mg/dL (0.15-1.2); Total Protein 5.7 g/dL (6.6-8.7)
[2024-06-12 04:13] LABS: NT Pro B Type Natriuretic Pept 7028 pg/mL (0-125)
[2024-06-12 06:34] LABS: Glucose Point of Care 119 mg/dL (70-110)
--- NOTE | 2024-06-12 07:30 | PC.NURSE ---
Patient removed IV during the night. Refusing to have one placed at this time.
[2024-06-12] MEDS: budesonide 0.5 mg/2 mL Neb INHALATION (07:48)
[2024-06-12 07:49] VITALS: PULSE 60; RESP 18; O2SAT 97
[2024-06-12 07:56] VITALS: BP 162/107; PULSE 65; RESP 20; TEMP 36.6; O2SAT 92
[2024-06-12] MEDS: docusate sodium 100 mg Capsule PO (08:03)
[2024-06-12] MEDS: pantoprazole 40 mg SDV IVP (08:03)
[2024-06-12] MEDS: bumetanide 0.25 mg/mL SDV 4 mL 1 MG IVP (08:03)
[2024-06-12] MEDS: hyDRALAzine 25 mg Tablet PO (08:03)
[2024-06-12] MEDS: clopidogrel 75 mg Tablet PO (08:04)
[2024-06-12] MEDS: aspirin 81 mg EC Tablet PO (08:04)
[2024-06-12] MEDS: predniSONE 20 mg Tablet 40 MG PO (08:04)
[2024-06-12] MEDS: cefdinir 300 MG CAPSULE PO (08:04)
[2024-06-12] MEDS: apixaban 5 mg Tablet PO (08:05)
[2024-06-12] MEDS: insulin glargine 100 units/1 mL 20 UNIT SUBCUT (08:23)
[2024-06-12] MEDS: spironolactone 25 mg Tablet PO (08:23)
--- NOTE | 2024-06-12 11:16 | PM.DCS ---
Discharge Providers Date of Admission: 06/07/24 07:37 Date of Discharge: June 12, 2024 Attending Provider at Admission: Troy Gayle MD Attending Provider at Discharge: Evelio Nieves MD Primary Care Provider: Avtar Bruce MD Diagnoses at Discharge Discharge Diagnosis (1) Acute and chronic respiratory failure with hypercapnia: Status: Acute (2) Acute exacerbation of chronic obstructive pulmonary disease: Status: Acute (3) Pneumonia: Status: Acute Qualifiers: Laterality: bilateral Lung location: lower lobe of lung Pneumonia type: due to unspecified organism Qualified Code(s): J18.9 - Pneumonia, unspecified organism (4) Acute exacerbation of CHF (congestive heart failure): Status: Acute Qualifiers: Heart failure type: diastolic Qualified Code(s): I50.33 - Acute on chronic diastolic (congestive) heart failure (5) Non-ST elevation (NSTEMI) myocardial infarction: Status: Acute (6) UTI (urinary tract infection): Status: Acute (7) DM type 2 (diabetes mellitus, type 2): Status: Acute (8) Hypoglycemia: Status: Acute (9) [place] coma scale score 3-8, at arrival to emergency department: Status: Acute (10) Septic shock: Status: Acute (11) Respiratory acidosis: Status: Acute Reason for Visit Reason for Visit: Resp Distress Hospital Course Hospital Course This is a 73-year-old female with a past medical history of hypertension, PE, COPD, diastolic heart failure, CAD, history of angiogram in 2021 who presents [facility] for acute respiratory distress Patient was admitted to [facility] for acute respiratory distress, GCS of 3, was intubated, placed on mechanical ventilation, for acute hypoxic respiratory failure with hypercapnia, COPD exacerbation, pneumonia, septic shock, acute CHF, NSTEMI. Patient was clinically monitored, maintain on broad-spectrum antibiotic therapy, IV diuresis, pressor therapy was weaned, overall clinically improved, extubated to nasal cannula; patient was moved to cardiac stepdown unit, antibiotic therapy was tapered, steroid therapy was tapered, received IV diuresis. On discharge patient is -5 L, will be discharged on prednisone burst, antibiotic therapy, with a close follow-up with primary care provider as outpatient For her NSTEMI, no chest pain complaints, stress test showed medium sized area of prior infarct seen in the left circumflex artery and RCA territories, no evidence of ischemia. Patient will be discharged with close follow-up with cardiology as outpatient. Physical Exam Const: COMMON NORMALS: no acute distress and patient oriented x3 Resp: COMMON NORMALS: normal respiratory effort, No retractions, No use of accessory muscles and clear to auscultation bilaterally AUSCULTATION: clear to auscultation bilaterally Cardio: COMMON NORMALS: regular rate, regular rhythm, S1 normal heart sound present and S2 normal heart sound present RATE: regular rate RHYTHM: regular rhythm HEART SOUNDS: S1 normal heart sound present and S2 normal heart sound present GI: COMMON NORMALS: Normal to inspection, nondistended, normoactive bowel sounds present and non-tender Extremity: COMMON NORMALS: no pedal edema Neuro: COMMON NORMALS: patient oriented x3 Psych: COMMON NORMALS: mental status grossly normal Urinary Catheter Management: Mathew: Cath Placed During This Visit: yes, but has since been removed by the nurse Reason for Continuing Indwelling Catheter: Accurate Measurement of Urinary Output in Critically Ill Patients Urinary Catheter Date of Insertion: 06/07/24 Urinary Catheter Time of Insertion: 04:32 Date Urinary Catheter Removed: 06/11/24 Time Urinary Catheter Discontinued: 18:00 Discharge Data Studies Completed and Pending Completed Studies During Hospitalization Category Date Time Status CT head wo con* [id number] Stat Cat Scan 06/07/24 05:05 Completed CTA chest [CT angio chest PE protcl [id number]] Stat Cat Scan 06/07/24 05:05 Completed Sestamibi Stress Test Request Routine Exams 06/08/24 18:21 Draft XR chest 1V portable [id number] QAM Exams 06/08/24 06:00 Completed XR chest 1V portable [id number] QAM Exams 06/09/24 06:00 Completed XR chest 1V portable [id number] QAM Exams 06/10/24 06:00 Completed XR chest 1V portable [id number] Stat Exams 06/07/24 04:22 Completed XR chest 1V portable [id number] Stat Exams 06/07/24 05:24 Completed NM bud perf SPECT r/s* [id number] Routine Nuc Med 06/09/24 18:21 Completed CV. echo complete* [id number] Routine Ultrasound 06/07/24 08:03 Completed Pending at discharge Category Date Time Status Blood Culture Stat Lab 06/07/24 05:11 Results Blood Culture Stat Lab 06/08/24 11:11 Results Complete Blood Count w/Auto AM LABS Lab 06/13/24 04:00 Ordered Comprehensive Metabolic Panel AM LABS Lab 06/13/24 04:00 Ordered Radiology Impressions Chest CTA 06/07/24 05:05 IMPRESSION: 1. There is no evidence for pulmonary emboli. 2. Patchy opacities are seen adjacent to the major fissures bilaterally and within the posterior kira thoraces likely representing dependent atelectasis. However superimposed infiltrates and pneumonia can not be excluded in the appropriate clinical setting. 3. Endotracheal tube tip 11 mm from the te. 4. Nasogastric tube tip in proximal stomach Head CT 06/07/24 05:05 IMPRESSION: 1. Cerebral atrophy and chronic cerebral microvascular disease. 2. No evidence of acute intracranial process. Chest X-Ray 06/10/24 06:00 IMPRESSION: Resolving CHF with mild residual opacity at the left lung base. Laboratory Results WBC 8.27 10^3/uL (3.29-11.43) 06/12/24 03:21 RBC 3.40 10^6/uL (3.85-5.65) L 06/12/24 03:21 Hgb 9.20 g/dL (11.27-16.99) L 06/12/24 03:21 Hct 29.0 % (36-47) L 06/12/24 03:21 MCV 85.3 fl (85-98) 06/12/24 03:21 MCH 27.1 pg (27-33) 06/12/24 03:21 MCHC 31.7 g/dL (30-55) 06/12/24 03:21 RDW 14.1 % (12.1-15.1) 06/12/24 03:21 Plt Count 198 10^3/cmm (157-399) 06/12/24 03:21 MPV 9.7 fL (7.4-10.4) 06/12/24 03:21 Neut % (Auto) 69.7 % 06/12/24 03:21 Lymph % (Auto) 19.8 % 06/12/24 03:21 Woods % (Auto) 8.9 % 06/12/24 03:21 Eos % (Auto) 1.1 % 06/12/24 03:21 Baso % (Auto) 0.0 % 06/12/24 03:21 Neut # (Auto) 5.76 10^3/uL (1.8-7.7) 06/12/24 03:21 Lymph # (Auto) 1.6 10^3/uL (0.8-4.8) 06/12/24 03:21 [place] # (Auto) 0.7 10^3/uL (0.2-0.9) 06/12/24 03:21 Eos # (Auto) 0.1 10^3/uL (0.0-0.8) 06/12/24 03:21 Baso # (Auto) 0.0 10^3/uL (0.0-0.1) 06/12/24 03:21 Nucleated RBC % (auto) 0 % 06/12/24 03:21 Nucleated RBCs # 0.0 /100WBC 06/12/24 03:21 D-Dimer 0.80 ug/mLFEU (0-0.59) H 06/07/24 04:15 Specimen Type Arterial 06/08/24 08:30 Sample Site Brachial, left 06/08/24 08:30 ABG pH 7.51 (7.35-7.45) H 06/08/24 08:30 ABG pCO2 29.7 mmHg (35-45) L 06/08/24 08:30 ABG pO2 130.0 mmHg (80.0-100.0) H 06/08/24 08:30 ABG PO2/FiO2 Ratio 371 06/08/24 08:30 ABG HCO3 23.9 mmol/L (22-26) 06/08/24 08:30 ABG O2 Saturation 98.4 06/08/24 08:30 ABG Base Excess 1.5 mmol/L (-2.0-2.0) 06/08/24 08:30 Stephen Test Pos 06/08/24 08:30 A-a O2 Gradient 10.1 mmHg (5-10) H 06/08/24 08:30 Hematocrit 34.5 % (37-47) L 06/08/24 08:30 Hgb O2 Saturation 96.4 % (95-100) 06/08/24 08:30 Carboxyhemoglobin 0.2 %THgb (0.4-20.1) L 06/08/24 08:30 Methemoglobin 1.8 % (0.4-1.5) H 06/08/24 08:30 Total Hemoglobin 11.2 g/dL (12-16) L 06/08/24 08:30 Sodium 143.0 mmol/L (131-143) 06/08/24 08:30 Potassium 3.1 mmol/L (3.5-5.0) L 06/08/24 08:30 Glucose 216.0 mg/dL (70-115) H 06/08/24 08:30 Ionized Calcium 1.1 mmol/L (1.1-1.4) 06/08/24 08:30 O2 Delivery Device Vent 06/08/24 08:30 Spontaneous Rate 12.0 % 06/08/24 08:30 FiO2 35.0 % 06/08/24 08:30 Tidal Volume 0.45 06/08/24 08:30 PEEP 5.0 cmH20 06/08/24 08:30 Snack Stewardess ID Cak 06/08/24 08:30 Sodium 135 mmol/L (136-145) L 06/12/24 03:21 Potassium 3.7 mmol/L (3.5-5.1) 06/12/24 03:21 Chloride 100 mmol/L (98-107) 06/12/24 03:21 Carbon Dioxide 27 mmol/L (22-29) 06/12/24 03:21 Anion Gap 11.7 (5-19) 06/12/24 03:21 BUN 22 mg/dL (8-23) 06/12/24 03:21 Creatinine 0.8 mg/dL (0.5-0.9) 06/12/24 03:21 GFR Calculation Not Reportable 06/12/24 03:21 Glucose 141 mg/dL (65-115) H 06/12/24 03:21 POC Glucose 119 mg/dL (70-110) H 06/12/24 06:17 Estimat Average Glucose 192 06/07/24 04:15 Hemoglobin A1c 8.3 % (4.0-6.0) H 06/07/24 04:15 Calculated Osmolality 286 mOsm/kg (285-295) 06/12/24 03:21 Lactic Acid 4.0 mmol/L (0.5-2.2) H 06/07/24 04:15 Lactic Acid (Sepsis) 1.2 mmol/L (0.5-2.2) 06/07/24 07:20 Calcium 7.8 mg/dL (8.5-10.5) L 06/12/24 03:21 Phosphorus 3.0 mg/dL (2.5-4.5) 06/10/24 04:42 Magnesium 2.3 mg/dL (1.7-2.3) 06/10/24 04:42 Iron 59 ug/dL (37-145) 06/07/24 04:14 TIBC 260 mcg/dl 06/07/24 04:14 % Saturation 22.6 % (20-50) 06/07/24 04:14 Unsat Iron Binding 201 ug/dL (112-347) 06/07/24 04:14 Total Bilirubin 0.3 mg/dL (0.15-1.2) 06/12/24 03:21 AST 13 U/L (0-32) 06/12/24 03:21 ALT 11 U/L (0-33) 06/12/24 03:21 Alkaline Phosphatase 53 U/L (35-105) 06/12/24 03:21 Troponin T 5th Gen ng/L 173 ng/L (0-10) H* 06/08/24 18:30 Troponin T Baseline 207 ng/L (0-10) H* 06/09/24 09:59 Troponin T 120 Minute 211.6 ng/L (0-10) H 06/09/24 11:59 Delta Troponin T 4.6 ABS# (0-10) 06/09/24 11:59 Troponin T Hi Sens 6Hr 219.7 ng/L (0-10) H 06/09/24 15:48 Troponin T Hi Sens 6Hr Delta 12.7 ng/L (0-12) H* 06/09/24 15:48 C-Reactive Protein 3.0 mg/L (0.0-4.9) 06/12/24 03:21 NT-Pro-B Natriuret Pep 7028 pg/mL (0-125) H 06/12/24 03:21 Total Protein 5.7 g/dL (6.6-8.7) L 06/12/24 03:21 Albumin 3.3 g/dL (3.5-5.2) L 06/12/24 03:21 Globulin 2.4 g/dL (1.3-4.6) 06/12/24 03:21 Triglycerides 160 mg/dL (0-150) H 06/08/24 04:28 Triglycerides Cancelled 06/08/24 04:28 Cholesterol 178 mg/dL (0-200) 06/08/24 04:28 Cholesterol Cancelled 06/08/24 04:28 LDL Cholesterol, Calc 106 mg/dL (50-129) 06/08/24 04:28 LDL Cholesterol, Calc Cancelled 06/08/24 04:28 HDL Cholesterol 40 mg/dL (60-100) L 06/08/24 04:28 HDL Cholesterol Cancelled 06/08/24 04:28 LDL/HDL Ratio 2.65 RATIO (0.00-3.22) 06/08/24 04:28 LDL/HDL Ratio Cancelled 06/08/24 04:28 Cholesterol/HDL Ratio 4.45 mg/dL (0.0-4.40) H 06/08/24 04:28 Cholesterol/HDL Ratio Cancelled 06/08/24 04:28 Vitamin B12 250 pg/mL (232-1245) 06/07/24 04:14 Folate 19.7 ng/mL (4.8-37.3) 06/08/24 04:28 Procalcitonin 0.20 ng/mL (0-0.5) 06/12/24 03: TSH 3.97 uIU/mL (0.27-4.20) 06/07/24 04:14 Random Cortisol 9.87 ug/dL (2.47-19.5) 06/07/24 10:07 Urine Color Yellow (Yellow) 06/07/24 06:21 Urine Appearance Cloudy (CLEAR) A 06/07/24 06:21 Urine pH 5.5 (5-7) 06/07/24 06:21 Ur Specific [place] 1.014 (1.005-1.030) 06/07/24 06:21 Urine Protein 1+ (Negative) A 06/07/24 06:21 Urine Glucose (UA) 3+ (Normal) H 06/07/24 06:21 Urine Ketones Negative (Negative) 06/07/24 06:21 Urine Blood Trace (Negative) A 06/07/24 06:21 Urine Nitrate Negative (Negative) 06/07/24 06:21 Urine Bilirubin Negative (Negative) 06/07/24 06:21 Urine Urobilinogen 0.2 mg/dL (Negative) 06/07/24 06:21 Ur Leukocyte Esterase Trace (Negative) A 06/07/24 06:21 Urine RBC 0-2 /hpf (0-2) 06/07/24 06:21 Urine WBC 11-20 /hpf (0-5) H 06/07/24 06:21 Ur Squamous Epith Cells 0-5 /hpf (0-5) 06/07/24 06:21 Amorphous Sediment Not Reportable 06/07/24 06:21 Urine Bacteria 4+ /hpf (NONE) H 06/07/24 06:21 Hyaline Casts 5.77 /lpf 06/07/24 06:21 Nasal MRSA (PCR) Not detected (Not Detecte) 06/07/24 10:07 Vancomycin Trough 15.3 ug/mL (10-15) H 06/09/24 22:16 Adenovirus (PCR) Not detected (NOT DETECT) 06/07/24 11:13 C. pneumoniae DNA (PCR) Not detected (NOT DETECT) 06/07/24 11:13 Coronavirus 229E (PCR) Not detected (NOT DETECT) 06/07/24 11:13 Human Metapneumovir PCR Not detected (NOT DETECT) 06/07/24 11:13 Influenza A (H1) PCR Not detected (NOT DETECT) 06/07/24 11:13 Influenza A (PCR) Negative (Negative) 06/07/24 04:22 Influ A (H1/09) PCR Not detected (NOT DETECT) 06/07/24 11:13 Influenza A (H3) PCR Not detected (NOT DETECT) 06/07/24 11:13 Influenza Type A (PCR) Not detected (NOT DETECT) 06/07/24 11:13 Influenza Type B (PCR) Not detected (NOT DETECT) 06/07/24 11:13 M. pneumoniae (PCR) Not detected (NOT DETECT) 06/07/24 11:13 Parainfluenza 1 (PCR) Not detected (NOT DETECT) 06/07/24 11:13 Parainfluenza 2 (PCR) Not detected (NOT DETECT) 06/07/24 11:13 Parainfluenza 3 (PCR) Not detected (NOT DETECT) 06/07/24 11:13 Parainfluenza 4 (PCR) Not detected (NOT DETECT) 06/07/24 11:13 RSV (PCR) Negative (Negative) 06/07/24 04:22 RSV Type A (PCR) Not detected (NOT DETECT) 06/07/24 11:13 RSV Type B (PCR) Not detected (NOT DETECT) 06/07/24 11:13 Entero/Rhino (PCR) Not detected (NOT DETECT) 06/07/24 11:13 SARS-CoV-2 (PCR) Not detected (NOT DETECT) 06/07/24 11:13 Vitals Last Vital Signs Temp 97.9 F 06/12/24 07:56 Pulse 65 06/12/24 07:56 Resp 20 H 06/12/24 07:56 BP 162/107 06/12/24 07:56 Pulse Ox 92 06/12/24 07:56 O2 Del Method Room Air 06/12/24 07:56 O2 Flow Rate 1 06/12/24 03:00 FiO2 30 06/08/24 10:32 Discharge Plan Discharge Patient Disposition: Xfer SNF Condition: Stable Prescriptions: New aspirin 81 mg Tablet,Delayed Release (Dr/Ec) 81 mg PO DAILY 30 Days Qty: 30 0RF docusate sodium 100 mg Capsule 100 mg PO BID 30 Days Qty: 60 0RF insulin lispro [Humalog U-100 Insulin] 100 unit/mL Solution See Rx Instructions .ROUTE .COMPLEX Qty: 10 0RF Rx Instructions: Inject, subcut, 3 times daily, after meals, based on low-dose insulin sliding scale cefdinir 300 mg Capsule 300 mg PO BID 5 Days Qty: 10 0RF prednisone 20 mg Tablet 40 mg PO DAILY 5 Days Qty: 10 0RF spironolactone 25 mg Tablet 25 mg PO DAILY 30 Days Qty: 30 0RF ropinirole 0.25 mg Tablet 0.25 mg PO BEDTIME 30 Days Qty: 30 0RF potassium chloride [Klor-Con M20] 20 mEq tablet,ER particles/crystals 20 meq PO DAILY 30 Days Qty: 30 0RF Continued acetaminophen 500 mg capsule 1,000 mg PO Q8H PRN (Reason: Pain) pantoprazole 40 mg tablet,delayed release (DR/EC) 40 mg PO DAILY Qty: 90 3RF Eliquis 5 mg tablet 5 mg PO BID Qty: 90 3RF insulin glargine [Lantus U-100 Insulin] 100 unit/mL solution 20 unit SUBCUT DAILY albuterol sulfate 90 mcg/actuation HFA aerosol inhaler 2 inh inhalation Q6H PRN (Reason: shortness of breath or wheezing) Qty: 8.5 0RF dapagliflozin propanediol [Farxiga] 10 mg tablet 10 mg PO DAILY Qty: 30 0RF hydralazine 25 mg tablet 25 mg PO TID Qty: 90 0RF ondansetron HCl 4 mg Tablet 4 mg PO Q6H PRN (Reason: Nausea And Vomiting) Spiriva Respimat 2.5 mcg/actuation Mist 2 puff INHALATION DAILY clopidogrel 75 mg tablet 75 mg PO DAILY Rx Instructions: TAKE 1 TABLET BY MOUTH EVERY DAY polyethylene glycol 3350 17 gram/dose Powder 17 g PO DAILY tramadol 50 mg Tablet 100 mg PO BID Changed bumetanide 2 mg Tablet 1 mg PO BID 30 Days Qty: 30 0RF Discontinued insulin lispro [Humalog KwikPen Insulin] 100 unit/mL insulin pen 5 unit SUBCUT .sliding scale Rx Instructions: per sliding scale 150-200=3 201-250=5 251-3600=7 301-350=9 351-400=11 TID PER SLIDING SCALE Entresto 49-51 mg tablet 1 tab PO BID carvedilol 25 mg Tablet 25 mg PO BID Rx Instructions: must administer with a meal/food amlodipine [Norvasc] 10 mg Tablet 10 mg PO DAILY bumetanide [Bumex] 1 mg Tablet 1 mg PO Q24H Rx Instructions: IF WEIGHT IS >220 calcium carbonate-vitamin D3 [Oyster Shell Calcium-Vit D3] 500 mg-5 mcg (200 unit) Tablet 1 tab PO DAILY Discharge Orders: Discharge Order (Routine); Ordered 06/12/24 Ordered By: Evelio Nieves Referrals: [facility] [Outside] Avtar Bruce MD [Primary Care Provider] - Discharge Diet: Cardiac Discharge Activity: Resume usual activity Patient Instructions: GI Post Discharge Instructions w/ Anesthesia, Opioid Safety Discharge Attestations Time Spent in Discharge Care*: greater than 30 min Status at Discharge: Cognitive status at discharge: mildly impaired cognition, Behavioral status at discharge: cooperative, Quality Metrics Clinical Quality Measures [ No reported AMI, CVA or VTE this stay] Coding Level of Care Code 99567 Total time (in minutes) for Discharge: 45 Diagnoses Acute and chronic respiratory failure with hypercapnia J96.22 Acute exacerbation of chronic obstructive pulmonary disease J44.1 Pneumonia of both lower lobes due to infectious organism J18.9 Laterality: bilateral Lung location: lower lobe of lung Pneumonia type: due to unspecified organism Acute on chronic diastolic congestive heart failure I50.33 Heart failure type: diastolic Non-ST elevation (NSTEMI) myocardial infarction I21.4 UTI (urinary tract infection) N39.0 DM type 2 (diabetes mellitus, type 2) E11.9 Hypoglycemia E16.2 [place] coma scale score 3-8, at arrival to emergency department R40.2432 Septic shock A41.9; R65.21 Respiratory acidosis E87.29
[2024-06-12 11:47] VITALS: BP 184/70; PULSE 69; RESP 17; TEMP 36.7; O2SAT 94
[2024-06-12 11:51] LABS: Glucose Point of Care 252 mg/dL (70-110)
--- NOTE | 2024-06-12 11:53 | PC.NURSE ---
Patient to transfer to [facility]. Report called to DEREK Henson.
== END 2024-06-12 12:59 | disposition intermediate care facility (04) | DRG 871 ==
LOC: ER 07:47 → ICU 07:48 → CSU 06-10 11:33
PROVIDERS: Emergency Medicine; Admitting Provider Student in an Organized Health Care Education/Training Program; Emergency Provider Emergency Medicine; PCP Family Medicine; Visit Provider Family Medicine
DX: A41.9 Sepsis, unspecified organism (principal); I21.4 Non-ST elevation (NSTEMI) myocardial infarction; R65.21 Severe sepsis with septic shock; J96.22 Acute and chronic respiratory failure with hypercapnia; J18.9 Pneumonia, unspecified organism; I50.33 Acute on chronic diastolic (congestive) heart failure; J44.0 Chronic obstructive pulmonary disease with (acute) lower respiratory infection; J44.1 Chronic obstructive pulmonary disease with (acute) exacerbation; N39.0 Urinary tract infection, site not specified; E87.29 Other acidosis; I11.0 Hypertensive heart disease with heart failure; E11.649 Type 2 diabetes mellitus with hypoglycemia without coma; Z79.4 Long term (current) use of insulin; Z79.84 Long term (current) use of oral hypoglycemic drugs; I25.10 Atherosclerotic heart disease of native coronary artery without angina pectoris; Z91.119 Patient's noncompliance with dietary regimen due to unspecified reason; K21.9 Gastro-esophageal reflux disease without esophagitis; Z86.711 Personal history of pulmonary embolism; Z95.5 Presence of coronary angioplasty implant and graft; Z79.02 Long term (current) use of antithrombotics/antiplatelets
CPT/HCPCS: 36415; 36416; 36592; 36600; 51702; 70450; 71045; 71275; 78452; 80048; 80051; 80053; 80061; 80202; 81001; 82330; 82533; 82607; 82746; 82805; 82962; 83036; 83540; 83550; 83605; 83735; 83880; 84100; 84145; 84443; 84484; 85025; 85378; 86140; 86403; 87040; 87070; 87077; 87086; 87150; 87186; 87205; 87486; 87581; 87633; 87637; 92523; 92526; 92610; 93005; 93017; 93306; 94002; 94003; 94640; 94799; 96365; 96366; 96367; 96372; 96374; 96375; 96376; 97161; 99291; A9500; C1751; J1650; J1815; J1940; J2270; J2405; J2470; J2543; J2704; J2785; J2919; J3010; J3370; J3490; J7030; J7050; J7512; J7626; J9999

== ENCOUNTER 2024-06-18 20:48 | Emergency (ER) | payer MEDICAID, SELFPAY ==
[2024-06-18 20:49] VITALS: BP 163/60; PULSE 77; RESP 18; TEMP 37.2; O2SAT 96; BMI 33.3
[2024-06-18 20:55] VITALS: BP 163/60; PULSE 77; RESP 18
--- NOTE | 2024-06-18 21:01 | XRR_ITS ---
PROCEDURE INFORMATION: Exam: XR Chest Exam date and time: 06/18/2024 9:08 PM Age: 73 years old Clinical indication: Chest wall pain; Additional info: Left chest wall/shoulder pain TECHNIQUE: Imaging protocol: Radiologic exam of the chest. Views: 1 view. COMPARISON: CR (CHEST, ) 06/10/2024 5:10 AM FINDINGS: Lungs: Left mid lung zone atelectasis. Pleural spaces: Unremarkable. No pleural effusion. No pneumothorax. Heart/Mediastinum: Unremarkable. No cardiomegaly. Vasculature: There are aortic arch calcifications. Bones/joints: Right rotator cuff calcific tendinosis. Mild degenerative disease of bilateral acromioclavicular joints. The thoracic spine demonstrates mild degenerative changes at multiple levels. XR/XR chest 1V portable [id number] IMPRESSION: Resolution of the left pleural effusion with left lower lobe consolidation/collapse.
--- NOTE | 2024-06-18 21:01 | XRR_ITS ---
PROCEDURE INFORMATION: Exam: XR Left Shoulder Exam date and time: 06/18/2024 9:08 PM Age: 73 years old Clinical indication: Pain; Shoulder; Left; Additional info: Pain x2 days TECHNIQUE: Imaging protocol: Radiologic exam of the left shoulder. Views: 2 or more views. COMPARISON: CR (CHEST, ) 06/10/2024 5:10 AM FINDINGS: Bones/joints: Mild degenerative disease of bilateral acromioclavicular joints. There are mild degenerative changes of the glenohumeral joint. Vasculature: There are aortic arch calcifications. Soft tissues: Normal. XR/XR shoulder LT min 2V* [id number] IMPRESSION: No acute fracture or dislocation.
--- NOTE | 2024-06-18 21:05 | ECG_ITS ---
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
--- NOTE | 2024-06-18 21:09 | W.ED.EXTPRO ---
HPI - Extremity Problem General: Chief complaint: Extremity Problem,Nontraumatic Stated complaint: left shoulder pain Time Seen by Provider: 06/18/24 20:54 Source: patient Mode of arrival: EMS Limitations: no limitations History of Present Illness: Patient is a 73-year-old female with extensive past medical history including previous fractures to the left upper extremity presenting to the ED by EMS for left shoulder pain for the past 2 days. She notes she has been having pain in her shoulder for years now, it has been much worse. Of note, recently was discharged from the hospital on 06/12 where she was admitted for acute on chronic respiratory failure with hypercapnia, where she was intubated and had central line placement. This is the ipsilateral side of the central line and notes that the pain is more to the left anterior shoulder where it has been in the past and not where catheter was placed. States it is worsened by any movement and radiates down towards her elbow. She is not having any anterior chest pain or shortness of breath at this time. Noted to be breathing 98% on room air at time of examination, rest of her vitals unremarkable. She attempts to abduct the left upper extremity at the shoulder but this causes a good amount of pain, states is improved by rest. States that chronically she takes Tylenol for pain and this has not been helping. She denies any swelling to the left upper extremity, warmth, redness, red streaking, or other symptoms. No reported distal neurovascular deficits. MD Complaint: joint pain Onset (ago): day(s) Pain Consistency: constant Location: left and upper extremity (Shoulder) Severity scale (1-10): 9 Quality: constant Radiation: distal Relieving factors: rest Exacerbating factors: range of motion Associated symptoms: Deny chest pain, fever(s) or rash Context: other (Recent hospitalization) Related Data Home Medications ?Medication ?Instructions ?Recorded ?Confirmed acetaminophen 500 mg capsule 1,000 mg PO Q8H PRN Pain 02/01/23 06/07/24 insulin glargine 100 unit/mL 20 unit SUBCUT DAILY 03/22/23 06/07/24 subcutaneous solution (Lantus U-100 Insulin) clopidogrel 75 mg tablet 75 mg PO DAILY 06/07/24 06/07/24 ondansetron HCl 4 mg tablet 4 mg PO Q6H PRN Nausea And Vomiting 06/07/24 06/07/24 polyethylene glycol 3350 17 17 g PO DAILY 06/07/24 06/07/24 gram/dose oral powder tiotropium bromide 2.5 2 puff inhalation DAILY 06/07/24 06/07/24 mcg/actuation mist for inhalation (Spiriva Respimat) Previous Rx's ?Medication ?Instructions ?Recorded apixaban 5 mg tablet (Eliquis) 5 mg PO BID #90 tabs 03/15/23 pantoprazole 40 mg tablet,delayed 40 mg PO DAILY for stomach #90 tabs 03/15/23 release albuterol sulfate 90 mcg/actuation 2 inh inhalation Q6H PRN shortness 07/17/23 aerosol inhaler of breath or wheezing #8.5 grams dapagliflozin propanediol 10 mg 10 mg PO DAILY #30 tabs 01/20/24 tablet (Farxiga) hydralazine 25 mg tablet 25 mg PO TID #90 tabs 01/20/24 bumetanide 2 mg tablet 1 mg (1/2 x 2 mg) PO BID 30 days 06/12/24 #30 tabs docusate sodium 100 mg capsule 100 mg PO BID 30 days #60 caps 06/12/24 insulin lispro 100 unit/mL See Rx Instructions .Route 06/12/24 subcutaneous solution (Humalog .COMPLEX #10 mL U-100 Insulin) potassium chloride 20 mEq 20 meq PO DAILY 30 days #30 tabs 06/12/24 tablet,extended release(part/cryst) (Klor-Con M) ropinirole 0.25 mg tablet 0.25 mg PO BEDTIME 30 days #30 tabs 06/12/24 spironolactone 25 mg tablet 25 mg PO DAILY 30 days #30 tabs 06/12/24 Allergies Allergy/AdvReac Type Severity Reaction Status Date / Time codeine Allergy Unknown ADR-Diarrhe Verified 06/18/24 20:56 a tetanus and diphtheria Allergy Unknown Unknown Verified 06/18/24 20:56 toxoids atorvastatin Allergy ADR-Faintin Verified 06/18/24 20:56 g Review of Systems General: Reports: 10 or more systems reviewed and unremarkable except in HPI and below Const: Denies: fever(s) or chills Card: Denies: chest pain Resp: Denies: dyspnea or productive cough GI: Denies: abdominal pain, nausea, vomiting or diarrhea : Denies: flank pain Musc: Reports: joint pain (left shoulder) and limited range of motion; Denies: neck pain, back pain, extremity pain, extremity swelling, joint swelling, joint redness, joint warmth or muscle weakness Skin/Breast: Denies: rash Neuro: Denies: headache(s), numbness in extremities or weakness in extremities PFSH ED PFSH: Medical History Non-ST elevation (NSTEMI) myocardial infarction Fracture of left hip requiring operative repair Atherosclerosis of coronary artery Fracture, intertrochanteric, left femur Left radial head fracture Open fracture of distal ends of both radius and ulna Hearing loss Gastroparesis Orthostasis Supplemental oxygen dependent Failure to thrive in adult Hyperglycemia Anemia Hyponatremia Nausea & vomiting Dilation of pulmonary artery GERD (gastroesophageal reflux disease) Restless leg syndrome Presence of stent in coronary artery in patient with coronary artery disease Heart failure with preserved ejection fraction Altered mental status Diabetes CHF (congestive heart failure) Hyperlipidemia Pulmonary embolism DKA (diabetic ketoacidosis) Hypertensive urgency DM type 2 (diabetes mellitus, type 2) Arthritis Asthma HTN (hypertension) Small bowel mass Surgical History S/P ORIF (open reduction internal fixation) fracture Hx of cholecystectomy Family History Other Cancer Stroke Social History Smoking and tobacco/nicotine status: never used tobacco/nicotine Alcohol intake: never Substance/Drug Use: never Lives independently: Yes Household members: none Marital status: / Physical Exam Const: COMMON NORMALS: no acute distress, patient oriented x3, no limitations, healthy appearing, alert and well nourished HENMT: COMMON NORMALS: normocephalic and atraumatic HEAD & SCALP: normocephalic and atraumatic Neck/C-Spine: COMMON NORMALS: full ROM, supple and no meningeal signs Resp: COMMON NORMALS: normal respiratory effort, No use of accessory muscles and clear to auscultation bilaterally AUSCULTATION: clear to auscultation bilaterally Cardio: COMMON NORMALS: regular rate and regular rhythm RATE: regular rate RHYTHM: regular rhythm Extremity: COMMON NORMALS: capillary refill normal, no joint enlargement and no clubbing, cyanosis or edema NARRATIVE EXTREMITY EXAM: Tender to palpation left anterior shoulder with no obvious deformity or bruising. Range of motion limited secondary to pain, specifically worse with abduction of the left shoulder. Mild reproducible tenderness to palpation along the left lateral humerus down towards the elbow, though the elbow is nontender to palpation. No redness or swelling noted. Distal radial pulse palpable. Good strength distally. Neuro: COMMON NORMALS: patient oriented x3, moves all extremities, no focal motor deficits and no sensory deficits noted SENSORIUM/ORIENTATION: Yes alert MENINGEAL SIGNS: Yes no meningeal signs Skin: COMMON NORMALS: no rashes or lesions noted GENERAL SKIN EXAM: no rashes or lesions noted Course Vital Signs: Vital signs: Vital Signs Temperature 99.0 F 06/18/24 20:49 Pulse Rate 92 06/18/24 22:00 Respiratory Rate 17 06/18/24 22:00 Blood Pressure 174/112 06/18/24 22:30 Pulse Oximetry 95 06/18/24 22:00 Oxygen Delivery Me thod Room Air 06/18/24 21:25 MDM - Extremity (Nontraumatic) Medical Decision Making Patient presented by ambulance for reports of left shoulder pain, noted to be chronic. Patient was recently discharged from the hospital for acute on chronic respiratory failure, though I do not suspect that this is related to her visit at all at this time as she notes that this shoulder pain she has dealt with for years. Range of motion was limited on exam tender to palpation anterior left shoulder that there was no palpable or obvious deformity. Distal neurovascular exam was intact. X-ray of the left shoulder do not demonstrate any acute findings, chest x-ray showed improvement of previous pleural effusion of the left lower lobe indicating that she has been improving. Also of note she has been greater than 95% on room air. Blood pressure has been elevated, she has a history of this states she takes blood pressure medication I suspect pain was responsible for this. She was given Dilaudid here as well as 1 dose of cyclobenzaprine and upon recheck states that she was feeling quite better. For this we will have her continue treating conservatively at the residential, and there is no need for further workup at this time as she had no complaints of anterior chest pain or shortness of breath. Discharged in stable condition back to residential, discussed case with Dr. Crook. Lab Data Radiology Impressions Chest X-Ray 06/18/24 21:01 IMPRESSION: Resolution of the left pleural effusion with left lower lobe consolidation/collapse. Shoulder X-Ray 06/18/24 21:01 IMPRESSION: No acute fracture or dislocation. All radiology interpretation(s) finalized by discharge Discharge Plan Discharge Patient Disposition: Home Clinical Impression: Chronic left shoulder pain Condition: Stable Prescriptions: No Action acetaminophen 500 mg capsule 1,000 mg PO Q8H PRN (Reason: Pain) pantoprazole 40 mg tablet,delayed release (DR/EC) 40 mg PO DAILY Qty: 90 3RF Eliquis 5 mg tablet 5 mg PO BID Qty: 90 3RF insulin glargine [Lantus U-100 Insulin] 100 unit/mL solution 20 unit SUBCUT DAILY albuterol sulfate 90 mcg/actuation HFA aerosol inhaler 2 inh inhalation Q6H PRN (Reason: shortness of breath or wheezing) Qty: 8.5 0RF dapagliflozin propanediol [Farxiga] 10 mg tablet 10 mg PO DAILY Qty: 30 0RF hydralazine 25 mg tablet 25 mg PO TID Qty: 90 0RF ondansetron HCl 4 mg Tablet 4 mg PO Q6H PRN (Reason: Nausea And Vomiting) Spiriva Respimat 2.5 mcg/actuation Mist 2 puff INHALATION DAILY clopidogrel 75 mg tablet 75 mg PO DAILY Rx Instructions: TAKE 1 TABLET BY MOUTH EVERY DAY polyethylene glycol 3350 17 gram/dose Powder 17 g PO DAILY docusate sodium 100 mg Capsule 100 mg PO BID 30 Days Qty: 60 0RF insulin lispro [Humalog U-100 Insulin] 100 unit/mL Solution See Rx Instructions .ROUTE .COMPLEX Qty: 10 0RF Rx Instructions: Inject, subcut, 3 times daily, after meals, based on low-dose insulin sliding scale spironolactone 25 mg Tablet 25 mg PO DAILY 30 Days Qty: 30 0RF ropinirole 0.25 mg Tablet 0.25 mg PO BEDTIME 30 Days Qty: 30 0RF potassium chloride [Klor-Con M20] 20 mEq tablet,ER particles/crystals 20 meq PO DAILY 30 Days Qty: 30 0RF bumetanide 2 mg Tablet 1 mg PO BID 30 Days Qty: 30 0RF Discharge Orders: Discharge ED (Routine); Ordered 06/18/24 Ordered By: Hubert Stanley Referrals: Avtar Bruce MD [Primary Care Provider] - Patient Instructions: Shoulder Pain (ED) Activity Restrictions/Additional Instructions: Continue taking home pain medications. Continue taking your blood pressure medications at home and continuing to log your blood pressure. Please return with any chest pain, breathing difficulties, or any other concerns. Print Language: French Coding Level of Care Code ED Automatic Coil Machine Operator for Sasha Cox
[2024-06-18] MEDS: cyclobenzaprine 10 mg Tablet 5 MG PO (21:23)
[2024-06-18 21:25] VITALS: BP 180/76; PULSE 84; RESP 17; O2SAT 92
[2024-06-18 21:30] VITALS: BP 176/68; PULSE 88; RESP 14; O2SAT 97
[2024-06-18 22:00] VITALS: BP 196/91; PULSE 92; RESP 17; O2SAT 95
[2024-06-18 22:30] VITALS: BP 174/112
[2024-06-18] MEDS: cloNIDine 0.1 mg Tablet PO (22:30)
[2024-06-19 02:58] VITALS: BP 175/95; PULSE 95; O2SAT 95
== END 2024-06-18 23:00 | disposition home or self-care (01) ==
PROVIDERS: Emergency Provider Physician Assistant; PCP Family Medicine
DX: M25.512 Pain in left shoulder (principal); Z79.01 Long term (current) use of anticoagulants; Z79.4 Long term (current) use of insulin; Z79.02 Long term (current) use of antithrombotics/antiplatelets; E11.9 Type 2 diabetes mellitus without complications; I11.0 Hypertensive heart disease with heart failure; I50.30 Unspecified diastolic (congestive) heart failure
CPT/HCPCS: 71045; 73030; 93005; 99284; J9999

== ENCOUNTER 2024-06-20 20:58 | Emergency (ER) | payer MEDICAID, SELFPAY ==
[2024-06-20] VITALS (11 sets, daily range): BP systolic 131–174; BP diastolic 63–102; PULSE 85–127; RESP 16–32; TEMP 36.5; O2SAT 88–99; BMI 36.6
--- NOTE | 2024-06-20 21:03 | ECG_ITS ---
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 Measurements Intervals Clyo Rate: 119 P: -73 DE: 238 QRS: 254 QRSD: 136 T: 93 QT: 336 QTc: 473 Interpretive Statements ECTOPIC ATRIAL TACHYCARDIA WITH FIRST DEGREE AV BLOCK RIGHT AXIS DEVIATION [QRS AXIS > 100] RIGHT BUNDLE BRANCH BLOCK [120+ ms QRS DURATION, UPRIGHT V1, 40+ ms S IN I/aVL/V4/V5/V6] ANTEROSEPTAL MYOCARDIAL INFARCTION , OF INDETERMINATE AGE [40+ ms Q WAVE IN V1-V4] MARKED ST DEPRESSION, CONSIDER SUBENDOCARDIAL INJURY [0.2+ mV ST DEPRESSION] ACUTE AL Compared to ECG 06/20/2024 20:59:36 First degree AV block now present Right-axis deviation now present ST (T wave) deviation still present Electronically Signed On 06-21-2024 18:14:45 CDT by Bryan Posadas M.D. [email or web address]
--- NOTE | 2024-06-20 21:04 | XRR_ITS ---
PROCEDURE INFORMATION: Exam: XR Chest Exam date and time: 06/20/2024 9:17 PM Age: 73 years old Clinical indication: Shortness of breath; Chest pain; SOB TECHNIQUE: Imaging protocol: Radiologic exam of the chest. Views: 1 view. COMPARISON: CR XR chest 1V portable [id number] 06/18/2024 9:08 PM FINDINGS: Lungs: In comparison to prior study diffusely increased mild ground-glass opacities bilaterally. Left middle lobe atelectasis. Pleural spaces: Unremarkable. No pleural effusion. No pneumothorax. Heart/Mediastinum: Unremarkable. No cardiomegaly. Vasculature: Aortic arch calcifications. Bones/joints: No acute osseous abnormality. Degenerative changes within bilateral acromioclavicular joints and calcific tendinosis of right rotator cuff. XR/XR chest 1V portable [id number] IMPRESSION: In comparison to prior study there are scattered ground-glass opacities bilaterally, nonspecific findings but may represent diffuse infectious process in the appropriate clinical setting.
--- NOTE | 2024-06-20 21:16 | W.ED.SOB ---
HPI - SOB/Dyspnea General: Chief Complaint: Shortness of Breath/Dyspnea Stated Complaint: CHEST PAIN Time Seen by Provider: 06/20/24 21:03 Source: EMS Mode of arrival: EMS Limitations: physical limitation History of Present Illness: HPI Narrative: Patient present by [facility] with complaints of chest pain shortness of breath. He started potentially today. Upon arrival patient is on nasal cannula at 5 to 6 L of oxygen and an O2 sat of 88%. Heart rate 125 bpm. Patient is tachypneic not moving very much air. Patient was seen here approximately 2 days ago for chronic left shoulder pain. Patient was seen here about a week before that for acute on chronic respiratory failure where she was intubated upon arrival because she could not protect her own airway. Patient was sent home on 06/12/2024 with 5 days of cefdinir and prednisone, patient does have a history of diabetes, CHF, heart failure, coronary stent, coronary artery disease, non-STEMI, patient cannot provide much history because he was taking all of her effort to breathe. However patient could tell nursing her name. Related Data Home Medications ?Medication ?Instructions ?Recorded ?Confirmed acetaminophen 500 mg capsule 1,000 mg PO Q8H PRN Pain 02/01/23 06/07/24 insulin glargine 100 unit/mL 20 unit SUBCUT DAILY 03/22/23 06/07/24 subcutaneous solution (Lantus U-100 Insulin) clopidogrel 75 mg tablet 75 mg PO DAILY 06/07/24 06/07/24 ondansetron HCl 4 mg tablet 4 mg PO Q6H PRN Nausea And Vomiting 06/07/24 06/07/24 polyethylene glycol 3350 17 17 g PO DAILY 06/07/24 06/07/24 gram/dose oral powder tiotropium bromide 2.5 2 puff inhalation DAILY 06/07/24 06/07/24 mcg/actuation mist for inhalation (Spiriva Respimat) Previous Rx's ?Medication ?Instructions ?Recorded apixaban 5 mg tablet (Eliquis) 5 mg PO BID #90 tabs 03/15/23 pantoprazole 40 mg tablet,delayed 40 mg PO DAILY for stomach #90 tabs 03/15/23 release albuterol sulfate 90 mcg/actuation 2 inh inhalation Q6H PRN shortness 07/17/23 aerosol inhaler of breath or wheezing #8.5 grams dapagliflozin propanediol 10 mg 10 mg PO DAILY #30 tabs 01/20/24 tablet (Farxiga) hydralazine 25 mg tablet 25 mg PO TID #90 tabs 01/20/24 bumetanide 2 mg tablet 1 mg (1/2 x 2 mg) PO BID 30 days 06/12/24 #30 tabs docusate sodium 100 mg capsule 100 mg PO BID 30 days #60 caps 06/12/24 insulin lispro 100 unit/mL See Rx Instructions .Route 06/12/24 subcutaneous solution (Humalog .COMPLEX #10 mL U-100 Insulin) potassium chloride 20 mEq 20 meq PO DAILY 30 days #30 tabs 06/12/24 tablet,extended release(part/cryst) (Klor-Con M) ropinirole 0.25 mg tablet 0.25 mg PO BEDTIME 30 days #30 tabs 06/12/24 spironolactone 25 mg tablet 25 mg PO DAILY 30 days #30 tabs 06/12/24 Allergies Allergy/AdvReac Type Severity Reaction Status Date / Time codeine Allergy Unknown ADR-Diarrhe Verified 06/18/24 20:56 a tetanus and diphtheria Allergy Unknown Unknown Verified 06/18/24 20:56 toxoids atorvastatin Allergy ADR-Faintin Verified 06/18/24 20:56 g Review of Systems General: Reports: 10 or more systems reviewed and unremarkable except in HPI and below PFSH ED PFSH: Medical History Non-ST elevation (NSTEMI) myocardial infarction Fracture of left hip requiring operative repair Atherosclerosis of coronary artery Fracture, intertrochanteric, left femur Left radial head fracture Open fracture of distal ends of both radius and ulna Hearing loss Gastroparesis Orthostasis Supplemental oxygen dependent Failure to thrive in adult Hyperglycemia Anemia Hyponatremia Nausea & vomiting Dilation of pulmonary artery GERD (gastroesophageal reflux disease) Restless leg syndrome Presence of stent in coronary artery in patient with coronary artery disease Heart failure with preserved ejection fraction Altered mental status Diabetes CHF (congestive heart failure) Hyperlipidemia Pulmonary embolism DKA (diabetic ketoacidosis) Hypertensive urgency DM type 2 (diabetes mellitus, type 2) Arthritis Asthma HTN (hypertension) Small bowel mass Surgical History S/P ORIF (open reduction internal fixation) fracture Hx of cholecystectomy Family History Other Cancer Stroke Social History Smoking and tobacco/nicotine status: never used tobacco/nicotine Alcohol intake: never Substance/Drug Use: never Lives independently: Yes Household members: none Marital status: / Physical Exam Narrative: EXAM NARRATIVE: Dyspneic, tachypneic, tachycardic, diaphoretic HENMT: COMMON NORMALS: normocephalic, atraumatic, Normal external nose present, moist oral mucous membranes and oropharynx normal HEAD & SCALP: normocephalic and atraumatic NOSE: Normal external nose present Neck/C-Spine: COMMON NORMALS: no JVD Chest: COMMONS NORMALS: normal inspection of the chest and normal palpation of entire chest wall Resp: OTHER: Limited air movement, tachypneic, rhonchi in bilateral lung Cardio: COMMON NORMALS: no JVD, regular rate (Tachycardic), regular rhythm, S1 normal heart sound present, S2 normal heart sound present, No gallops present (Cardio), No clicks present (Cardio), No murmurs present (Cardio) and No rub (Cardio) RATE: regular rate (Tachycardic) RHYTHM: regular rhythm HEART SOUNDS: S1 normal heart sound present and S2 normal heart sound present GI: COMMON NORMALS: Normal to inspection, nondistended, normoactive bowel sounds present, Soft to palpation, non-tender, No hepatosplenomegaly present and no masses PALPATION: Yes Soft to palpation and Yes No hepatosplenomegaly present Extremity: NARRATIVE EXTREMITY EXAM: 1+ bilateral pretibial pitting edema Course Vital Signs: Vital signs: Vital Signs Temperature 97.7 F 06/20/24 21:06 Pulse Rate 68 06/21/24 01:30 Respiratory Rate 20 H 06/21/24 01:30 Blood Pressure 145/67 06/21/24 01:30 Pulse Oximetry 95 06/21/24 01:30 Oxygen Delivery Me thod BiPAP 06/20/24 22:55 Oxygen Flow Rate 6 06/20/24 21:30 Fraction of Inspir ed Oxygen 28 06/20/24 23:00 MDM - SOB/Dyspnea Medical Decision Making Texted the initial EMS EKG and prior EKG to Dr. Bradley who said not a STEMI to trend the troponins, After patient arrived here and ABG was obtained we placed her on BiPAP. Not too long after that patient started complaining of chest pain, we got a another EKG which had some minute changes as well as her troponin came back at 54, Dr. Ny was called again and discussed this with him her rate was still in the 120s and he said this may be elevating her troponin and due to her COPD there could be changes to the EKG based upon that and that is still not a STEMI he did recommend a starting her on Cardizem drip to lower her heart rate down and see if this aids in her chest pain. He also said we can put her on some Lovenox for anticoagulation. Patient was not given the 30 mL/kg septic bolus because chest x-ray looks like pulmonary edema and her elevated BNP with CHF and on Bumex. Elevated troponin with a delta of approximate 140, patient's chest pain had improved, we have another EKG which looked a little bit different, this was texted to Dr. Bradley he said still not a STEMI still serial as her troponins, and patient should be treated for the acute respiratory failure portion in the meantime. We do not have any beds here for ICU or CSU so therefore we will transfer her out. Patient would prefer [facility]. Discussed this case with Gracie who discussed with the hospitalist who wanted her to go to the ER. Discussed this with Dr. Jean Paul Barnes in the ER who accepted patient in transfer. Medical Records I reviewed the patient's medical records. Lab Data I reviewed the patient's lab results. 06/20/24 21:16 06/20/24 21:16 Labs/Radiology: Radiology Impressions Chest X-Ray 06/20/24 21:04 IMPRESSION: In comparison to prior study there are scattered ground-glass opacities bilaterally, nonspecific findings but may represent diffuse infectious process in the appropriate clinical setting. Laboratory Results WBC 19.88 10^3/uL (3.29-11.43) H 06/20/24 21:16 RBC 4.10 10^6/uL (3.85-5.65) 06/20/24 21:16 Hgb 11.20 g/dL (11.27-16.99) L 06/20/24 21:16 Hct 36.4 % (36-47) 06/20/24 21:16 MCV 88.8 fl (85-98) 06/20/24 21:16 MCH 27.3 pg (27-33) 06/20/24 21:16 MCHC 30.8 g/dL (30-55) 06/20/24 21:16 RDW 14.8 % (12.1-15.1) 06/20/24 21:16 Plt Count 443 10^3/cmm (157-399) H 06/20/24 21:16 MPV 9.5 fL (7.4-10.4) 06/20/24 21:16 Neut % (Auto) 60.7 % 06/20/24 21:16 Lymph % (Auto) 29.8 % 06/20/24 21:16 [place] % (Auto) 4.9 % 06/20/24 21:16 Eos % (Auto) 2.4 % 06/20/24 21:16 Baso % (Auto) 0.3 % 06/20/24 21:16 Neut # (Auto) 12.06 10^3/uL (1.8-7.7) H 06/20/24 21:16 Lymph # (Auto) 5.9 10^3/uL (0.8-4.8) H 06/20/24 21:16 [place] # (Auto) 1.0 10^3/uL (0.2-0.9) H 06/20/24 21:16 Eos # (Auto) 0.5 10^3/uL (0.0-0.8) 06/20/24 21:16 Baso # (Auto) 0.1 10^3/uL (0.0-0.1) 06/20/24 21:16 Nucleated RBC % (auto) 0 % 06/20/24 21:16 Nucleated RBCs # 0.0 /100WBC 06/20/24 21:16 PT 14.10 SECONDS (12.1-14.9) 06/20/24 21:16 INR 1.02 (0.8-1.2) 06/20/24 21:16 Specimen Type Arterial 06/20/24 22:44 Sample Site Radial, right 06/20/24 22:44 ABG pH 7.31 (7.35-7.45) L 06/20/24 22:44 ABG pCO2 50.1 mmHg (35-45) H 06/20/24 22:44 ABG pO2 160.0 mmHg (80.0-100.0) H 06/20/24 22:44 ABG PO2/FiO2 Ratio 320 06/20/24 22:44 ABG HCO3 25.0 mmol/L (22-26) 06/20/24 22:44 ABG O2 Saturation 97.3 06/20/24 22:44 ABG Base Excess -1.7 mmol/L (-2.0-2.0) 06/20/24 22:44 Stephen Test Pos 06/20/24 22:44 A-a O2 Gradient 17.0 mmHg (5-10) H 06/20/24 22:44 Hematocrit 35.0 % (37-47) L 06/20/24 22:44 Hgb O2 Saturation 96.3 % (95-100) 06/20/24 22:44 Carboxyhemoglobin < 0.3 %THgb (0.4-20.1) L 06/20/24 22:44 Methemoglobin 1.3 % (0.4-1.5) 06/20/24 22:44 Total Hemoglobin 11.4 g/dL (12-16) L 06/20/24 22:44 Sodium 133.0 mmol/L (131-143) 06/20/24 22:44 Potassium 4.4 mmol/L (3.5-5.0) 06/20/24 22:44 Glucose 399.0 mg/dL (70-115) H 06/20/24 22:44 Ionized Calcium 1.1 mmol/L (1.1-1.4) 06/20/24 22:44 O2 Delivery Device Bipap 06/20/24 22:44 O2 Liters/Min 6.0 % 06/20/24 21:03 FiO2 50.0 % 06/20/24 22:44 PEEP 10.0 cmH20 06/20/24 22:44 Surfboard Maker ID [email or web address] 06/20/24 22:44 Sodium 131 mmol/L (136-145) L 06/20/24 21:16 Potassium 4.7 mmol/L (3.5-5.1) 06/20/24 21:16 Chloride 92 mmol/L (98-107) L 06/20/24 21:16 Carbon Dioxide 22 mmol/L (22-29) 06/20/24 21:16 Anion Gap 21.7 (5-19) H 06/20/24 21:16 BUN 36 mg/dL (8-23) H 06/20/24 21:16 Creatinine 1.4 mg/dL (0.5-0.9) H 06/20/24 21:16 GFR Calculation Not Reportable 06/20/24 21:16 Glucose 412 mg/dL (65-115) H 06/20/24 21:16 Calculated Osmolality 298 mOsm/kg (285-295) H 06/20/24 21:16 Lactic Acid 4.2 mmol/L (0.5-2.2) H* 06/20/24 21:16 Lactic Acid (Sepsis) 2.7 mmol/L (0.5-2.2) H 06/21/24 00:03 Calcium 8.6 mg/dL (8.5-10.5) 06/20/24 21:16 Magnesium 2.8 mg/dL (1.7-2.3) H 06/20/24 21:16 Total Bilirubin 0.2 mg/dL (0.15-1.2) 06/20/24 21:16 AST 12 U/L (0-32) 06/20/24 21:16 ALT 12 U/L (0-33) 06/20/24 21:16 Alkaline Phosphatase 110 U/L (35-105) H 06/20/24 21:16 Troponin T Baseline 56 ng/L (0-10) H 06/20/24 21:16 Troponin T 120 Minute 196.3 ng/L (0-10) H 06/20/24 23:01 Delta Troponin T 140.3 ABS# (0-10) H* 06/20/24 23:01 NT-Pro-B Natriuret Pep 6930 pg/mL (0-125) H 06/20/24 21:16 Total Protein 6.6 g/dL (6.6-8.7) 06/20/24 21:16 Albumin 3.9 g/dL (3.5-5.2) 06/20/24 21:16 Globulin 2.7 g/dL (1.3-4.6) 06/20/24 21:16 Procalcitonin 0.08 ng/mL (0-0.5) 06/20/24 21:16 Urine Color Yellow (Yellow) 06/20/24 22:16 Urine Appearance Clear (CLEAR) 06/20/24 22:16 Urine pH 5 (5-7) 06/20/24 22:16 Ur Specific [place] 1.015 (1.005-1.030) 06/20/24 22:16 Urine Protein 2+ (Negative) A 06/20/24 22:16 Urine Glucose (UA) 4+ (Normal) H 06/20/24 22:16 Urine Ketones Negative (Negative) 06/20/24 22:16 Urine Blood 2+ (Negative) A 06/20/24 22:16 Urine Nitrate Negative (Negative) 06/20/24 22:16 Urine Bilirubin Neg (Negative) 06/20/24 22:16 Urine Urobilinogen Norm mg/dL (Negative) 06/20/24 22:16 Ur Leukocyte Esterase Negative (Negative) 06/20/24 22:16 Urine RBC 0-2 /hpf (0-2) 06/20/24 22:16 Urine WBC 11-20 /hpf (0-5) H 06/20/24 22:16 Ur Squamous Epith Cells 0-5 /hpf (0-5) 06/20/24 22:16 Amorphous Sediment Not Reportable 06/20/24 22:16 Urine Bacteria None seen /hpf (NONE) 06/20/24 22:16 Hyaline Casts 16.93 /lpf 06/20/24 22:16 Urine Yeast 1+ /hpf H 06/20/24 22:16 Urine Opiates Screen Negative ng/mL (Negative) 06/20/24 22:16 Ur Barbiturates Screen Negative ng/mL (Negative) 06/20/24 22:16 Ur Phencyclidine Scrn Negative ng/mL (Negative) 06/20/24 22:16 Ur Amphetamines Screen Negative ng/mL (Negative) 06/20/24 22:16 U Benzodiazepines Scrn Negative ng/mL (Negative) 06/20/24 22:16 Urine Cocaine Screen Negative ng/mL (Negative) 06/20/24 22:16 U Marijuana (THC) Screen Negative ng/mL (Negative) 06/20/24 22:16 Serum Ketones Negative (Negative) 06/20/24 21:16 All radiology interpretation(s) finalized by discharge Discharge Plan Discharge Patient Disposition: Xfer Short-Term Hosp Clinical Impression: Acute and chronic respiratory failure with hypoxia, COPD (chronic obstructive pulmonary disease), Elevated troponin, Tachycardia, Hyperglycemia due to diabetes mellitus Condition: Stable Prescriptions: No Action acetaminophen 500 mg capsule 1,000 mg PO Q8H PRN (Reason: Pain) pantoprazole 40 mg tablet,delayed release (DR/EC) 40 mg PO DAILY Qty: 90 3RF Eliquis 5 mg tablet 5 mg PO BID Qty: 90 3RF insulin glargine [Lantus U-100 Insulin] 100 unit/mL solution 20 unit SUBCUT DAILY albuterol sulfate 90 mcg/actuation HFA aerosol inhaler 2 inh inhalation Q6H PRN (Reason: shortness of breath or wheezing) Qty: 8.5 0RF dapagliflozin propanediol [Farxiga] 10 mg tablet 10 mg PO DAILY Qty: 30 0RF hydralazine 25 mg tablet 25 mg PO TID Qty: 90 0RF ondansetron HCl 4 mg Tablet 4 mg PO Q6H PRN (Reason: Nausea And Vomiting) Spiriva Respimat 2.5 mcg/actuation Mist 2 puff INHALATION DAILY clopidogrel 75 mg tablet 75 mg PO DAILY Rx Instructions: TAKE 1 TABLET BY MOUTH EVERY DAY polyethylene glycol 3350 17 gram/dose Powder 17 g PO DAILY docusate sodium 100 mg Capsule 100 mg PO BID 30 Days Qty: 60 0RF insulin lispro [Humalog U-100 Insulin] 100 unit/mL Solution See Rx Instructions .ROUTE .COMPLEX Qty: 10 0RF Rx Instructions: Inject, subcut, 3 times daily, after meals, based on low-dose insulin sliding scale spironolactone 25 mg Tablet 25 mg PO DAILY 30 Days Qty: 30 0RF ropinirole 0.25 mg Tablet 0.25 mg PO BEDTIME 30 Days Qty: 30 0RF potassium chloride [Klor-Con M20] 20 mEq tablet,ER particles/crystals 20 meq PO DAILY 30 Days Qty: 30 0RF bumetanide 2 mg Tablet 1 mg PO BID 30 Days Qty: 30 0RF Referrals: Avtar Bruce MD [Primary Care Provider] - Print Language: Setswana Coding Level of Care Code ED Churn Driller Helper for Miltong Fwbailee
[2024-06-20 21:27] LABS: Basophils # 0.1 10^3/uL (0.0-0.1); Basophils % 0.3 %; Eosinophils # 0.5 10^3/uL (0.0-0.8); Eosinophils % 2.4 %; Hematocrit 36.4 % (36-47); Lymphocytes # 5.9 10^3/uL (0.8-4.8); Lymphocytes % 29.8 %; Mean Corpuscular HGB Conc 30.8 g/dL (30-55); Mean Corpuscular Hemoglobin 27.3 pg (27-33); Mean Corpuscular Volume 88.8 fl (85-98); Mean Platelet Volume 9.5 fL (7.4-10.4); Monocytes % 4.9 %; Neutrophils # 12.06 10^3/uL (1.8-7.7); Neutrophils % 60.7 %; Nucleated Red Blood Cells % 0 %; Platelet Count 443 10^3/cmm (157-399); Red Cell Distribution Width 14.8 % (12.1-15.1); White Blood Count 19.88 10^3/uL (3.29-11.43)
[2024-06-20] MEDS: methylPREDNISolone sod succ 125 mg/2 mL INJ IVP (21:28)
[2024-06-20 21:33] LABS: Arterial Blood Gas Hematocrit 36.6 % (37-47); Base Excess ABG -6.3 mmol/L (-2.0-2.0); Blood Gas Allen Test Pos; Blood Gas Operator Identificat gerca; Blood Gas Sample Site Brachial, right; Blood Gas Sample Type Arterial; Carboxyhemoglobin < 0.3 %THgb (0.4-20.1); HCO3 ABG 23.7 mmol/L (22-26); HGB O2 Sat 90.3 % (95-100); Ionized Calcium Level - ABG 1.2 mmol/L (1.1-1.4); Methemoglobin 1.3 % (0.4-1.5); Oxygen Device NC; Oxygen Saturation ABG 91.3; Potassium Level - ABG 4.4 mmol/L (3.5-5.0); Total Hemoglobin 11.9 g/dL (12-16)
[2024-06-20 21:36] LABS: ABG PCO2 69.3 mmHg (35-45); ABG PH Result 7.14 (7.35-7.45)
[2024-06-20 21:37] LABS: INR 1.02 (0.8-1.2)
[2024-06-20 21:42] LABS: Troponin(5th) Baseline 56 ng/L (0-10)
--- NOTE | 2024-06-20 21:48 | PM.CONSULT ---
Providers/Reason For Consult Primary Care Provider: Avtar Bruce MD History of Present Illness History of Present Illness Lady López is a 73 year old female intubated 06/12 gcs 3 acute on chronic resp failure. sent home on omnicef, prednisone. chest pain and resp. failure. EMS had her on 5L w/ O2 sat of 88%, ABG 7.1// Medications/Allergies Home Medications ?Medication ?Instructions ?Recorded ?Confirmed ?Last Taken ?Type acetaminophen 500 mg capsule 1,000 mg PO Q8H PRN Pain 02/01/23 06/07/24 01/15/24 History apixaban 5 mg tablet (Eliquis) 5 mg PO BID #90 tabs 03/15/23 06/07/24 01/15/24 Rx pantoprazole 40 mg tablet,delayed 40 mg PO DAILY for stomach #90 tabs 03/15/23 06/07/24 01/15/24 Rx release insulin glargine 100 unit/mL 20 unit SUBCUT DAILY 03/22/23 06/07/24 01/15/24 History subcutaneous solution (Lantus U-100 Insulin) albuterol sulfate 90 mcg/actuation 2 inh inhalation Q6H PRN shortness 07/17/23 06/07/24 01/15/24 Rx aerosol inhaler of breath or wheezing #8.5 grams dapagliflozin propanediol 10 mg 10 mg PO DAILY #30 tabs 01/20/24 06/07/24 Unknown Rx tablet (Farxiga) hydralazine 25 mg tablet 25 mg PO TID #90 tabs 01/20/24 06/07/24 Unknown Rx clopidogrel 75 mg tablet 75 mg PO DAILY 06/07/24 06/07/24 Unknown History ondansetron HCl 4 mg tablet 4 mg PO Q6H PRN Nausea And Vomiting 06/07/24 06/07/24 Unknown History polyethylene glycol 3350 17 17 g PO DAILY 06/07/24 06/07/24 Unknown History gram/dose oral powder tiotropium bromide 2.5 2 puff inhalation DAILY 06/07/24 06/07/24 Unknown History mcg/actuation mist for inhalation (Spiriva Respimat) bumetanide 2 mg tablet 1 mg (1/2 x 2 mg) PO BID 30 days 06/12/24 06/07/24 Unknown Rx #30 tabs docusate sodium 100 mg capsule 100 mg PO BID 30 days #60 caps 06/12/24 Unknown Rx insulin lispro 100 unit/mL See Rx Instructions .Route 06/12/24 Unknown Rx subcutaneous solution (Humalog .COMPLEX #10 mL U-100 Insulin) potassium chloride 20 mEq 20 meq PO DAILY 30 days #30 tabs 06/12/24 Unknown Rx tablet,extended release(part/cryst) (Klor-Con M) ropinirole 0.25 mg tablet 0.25 mg PO BEDTIME 30 days #30 tabs 06/12/24 Unknown Rx spironolactone 25 mg tablet 25 mg PO DAILY 30 days #30 tabs 06/12/24 Unknown Rx Allergies Allergy/AdvReac Type Severity Reaction Status Date / Time codeine Allergy Unknown ADR-Diarrhe Verified 06/18/24 20:56 a tetanus and diphtheria Allergy Unknown Unknown Verified 06/18/24 20:56 toxoids atorvastatin Allergy ADR-Faintin Verified 06/18/24 20:56 g PFSH Acute PFSH: Medical History Non-ST elevation (NSTEMI) myocardial infarction Fracture of left hip requiring operative repair Atherosclerosis of coronary artery Fracture, intertrochanteric, left femur Left radial head fracture Open fracture of distal ends of both radius and ulna Hearing loss Gastroparesis Orthostasis Supplemental oxygen dependent Failure to thrive in adult Hyperglycemia Anemia Hyponatremia Nausea & vomiting Dilation of pulmonary artery GERD (gastroesophageal reflux disease) Restless leg syndrome Presence of stent in coronary artery in patient with coronary artery disease Heart failure with preserved ejection fraction Altered mental status Diabetes CHF (congestive heart failure) Hyperlipidemia Pulmonary embolism DKA (diabetic ketoacidosis) Hypertensive urgency DM type 2 (diabetes mellitus, type 2) Arthritis Asthma HTN (hypertension) Small bowel mass Surgical History S/P ORIF (open reduction internal fixation) fracture Hx of cholecystectomy Family History Other Cancer Stroke Social History Smoking and tobacco/nicotine status: never used tobacco/nicotine Alcohol intake: never Substance/Drug Use: never Lives independently: Yes Household members: none Marital status: / Vitals/I&O/Wt Last Vital Signs Temp 97.7 F 06/20/24 21:06 Pulse 127 H 06/20/24 21:30 Resp 32 H 06/20/24 21:30 BP 147/101 06/20/24 21:30 Pulse Ox 93 06/20/24 21:30 O2 Del Method Nasal Cannula 06/20/24 21:30 O2 Flow Rate 6 06/20/24 21:30 06/20/24 06/20/24 06/20/24 06:59 14:59 22:59 Intake Total 0 / 0 Balance 0 / 0 Weight last 48 hrs Weight 99.79 kg Data 06/20/24 21:16 06/20/24 21:16 A&P PDMP PDMP Reviewed: Not Reviewed Coding Level of Care Code Acute Code for Chg Kenny
[2024-06-20 21:58] LABS: NT Pro B Type Natriuretic Pept 6930 pg/mL (0-125); Procalcitonin 0.08 ng/mL (0-0.5)
[2024-06-20 22:09] LABS: Alanine Aminotransferase 12 U/L (0-33); Albumin Level 3.9 g/dL (3.5-5.2); Alkaline Phosphatase 110 U/L (35-105); Anion Gap 21.7 (5-19); Aspartate Amino Transferase 12 U/L (0-32); Blood Urea Nitrogen 36 mg/dL (8-23); Calcium 8.6 mg/dL (8.5-10.5); Carbon Dioxide 22 mmol/L (22-29); Chloride 92 mmol/L (98-107); Creatinine Clr Calc Pharmacy 42.4991; Globulin 2.7 g/dL (1.3-4.6); Glucose 412 mg/dL (65-115); Magnesium 2.8 mg/dL (1.7-2.3); Osmolality Calculated 298 mOsm/kg (285-295); Potassium 4.7 mmol/L (3.5-5.1); Sodium 131 mmol/L (136-145); Total Bilirubin 0.2 mg/dL (0.15-1.2); Total Protein 6.6 g/dL (6.6-8.7)
--- NOTE | 2024-06-20 22:10 | ECG_ITS ---
[employer] Test Date: 2024-06-20 Pat Name: Lady López Department: Room: Gender: Female Nurse Ob: : 1950 Requested By: Luis Peraza Order Number: [id number] Lama MD: Bryan Posadas M.D. Measurements Intervals [place] Rate: 117 P: -41 [place]: 188 QRS: 253 QRSD: 138 T: 90 QT: 351 QTc: 491 Interpretive Statements SINUS TACHYCARDIA WITH OCCASIONAL VENTRICULAR PREMATURE COMPLEXES RIGHT AXIS DEVIATION [QRS AXIS > 100] RIGHT BUNDLE BRANCH BLOCK [120+ ms QRS DURATION, UPRIGHT V1, 40+ ms S IN I/aVL/V4/V5/V6] ANTEROSEPTAL MYOCARDIAL INFARCTION , OF INDETERMINATE AGE [40+ ms Q WAVE IN V1-V4] MARKED ST DEPRESSION, CONSIDER SUBENDOCARDIAL INJURY [0.2+ mV ST DEPRESSION] Compared to ECG 06/20/2024 22:01:30 Ventricular premature complex(es) now present First degree AV block no longer present ST (T wave) deviation still present Electronically Signed On 06-21-2024 18:14:16 CDT by Bryan Posadas M.D. [id number] [id number]
[2024-06-20 22:11] LABS: Lactic Sepsis W/Reflex 4.2 mmol/L (0.5-2.2)
[2024-06-20 22:15] LABS: Ketone (Acetest) Serum Negative (Negative)
[2024-06-20] MEDS: FUROsemide 10 mg/mL SDV 10mL 60 MG IVP (22:24)
[2024-06-20] MEDS: piperacillin-tazobactam 3.375 GM in sodium chloride 0.9% (plus) 50 ML IV (22:42)
[2024-06-20 22:43] LABS: Bacteria Urine None Seen /hpf; Hyaline Casts Urine 16.93 /lpf; RBC Urine 0-2 /hpf (0-2); Squamous Epithelial Cell Urine 0-5 /hpf (0-5); Universal Test for UA Present (0)
[2024-06-20] MEDS: dilTIAZem 100 MG in sodium chloride 0.9% (add-van) 100 ML IV (22:44)
[2024-06-20] MEDS: insulin lispro 100 unit/1 mL 10 UNIT SUBCUT (22:44)
[2024-06-20] MEDS: enoxaparin 100 mg/mL Syringe SUBCUT (22:46)
[2024-06-20 22:55] LABS: Add Urine Culture? Yes; Add Urine Microscopic? YES; Bilirubin Urine Neg (Negative); Blood Urine 2+ (Negative); Glucose Urine UA 4+ (Normal); Ketones Urine Negative (Negative); Leukocyte Esterase Urine Negative (Negative); Nitrate Urine Negative (Negative); Protein Urine 2+ (Negative); Specific Gravity, Urine 1.015 (1.005-1.030); Urine Appearance Clear (CLEAR); Urine Color Yellow (Yellow); Urobilinogen Urine Norm (Negative); pH Urine 5 (5-7)
[2024-06-20 22:56] LABS: ABG PCO2 50.1 mmHg (35-45); ABG PH Result 7.31 (7.35-7.45); Base Excess ABG -1.7 mmol/L (-2.0-2.0); Blood Gas Allen Test Pos; Blood Gas Operator Identificat gerca; Blood Gas Sample Site Radial, right; Blood Gas Sample Type Arterial; Carboxyhemoglobin < 0.3 %THgb (0.4-20.1); HGB O2 Sat 96.3 % (95-100); Ionized Calcium Level - ABG 1.1 mmol/L (1.1-1.4); Methemoglobin 1.3 % (0.4-1.5); Oxygen Device BIPAP; Oxygen Saturation ABG 97.3; PO2 FiO2 Ratio Arterial Blood 320; Potassium Level - ABG 4.4 mmol/L (3.5-5.0); Total Hemoglobin 11.4 g/dL (12-16)
[2024-06-20 22:56] LABS: Amphetamines Screen Urine Negative (Negative); Barbiturates Screen Urine Negative (Negative); Benzodiazepines Screen Urine Negative (Negative); Cocaine Screen Urine Negative (Negative); Opiate Screen Urine Negative (Negative); PCP Screen Urine Negative (Negative); THC Screen Urine Negative (Negative)
--- NOTE | 2024-06-20 23:03 | ECG_ITS ---
[employer] [facility] Test Date: 2024-06-20 Pat Name: Lady López Department: Room: Gender: Female Digital Traffic Coordinator: : 1950 Requested By: Luis Peraza Order Number: [id number] Kelby MD: HEIDY EATON Measurements Intervals [place] Rate: 126 P: -86 [place]: 146 QRS: -89 QRSD: 143 T: 91 QT: 319 QTc: 462 Interpretive Statements ECTOPIC ATRIAL TACHYCARDIA LEFT AXIS DEVIATION [QRS AXIS < -30] RIGHT BUNDLE BRANCH BLOCK [120+ ms QRS DURATION, UPRIGHT V1, 40+ ms S IN I/aVL/V4/V5/V6] ANTEROSEPTAL MYOCARDIAL INFARCTION , OF INDETERMINATE AGE [40+ ms Q WAVE IN V1-V4] ST DEPRESSION, CONSIDER SUBENDOCARDIAL INJURY [0.1+ mV ST DEPRESSION] Compared to ECG 06/18/2024 21:05:00 Right bundle-branch block now present ST (T wave) deviation now present Electronically Signed On 06-22-2024 22:04:48 CDT by HEIDY EATON [id number]
[2024-06-20 23:09] LABS: Reflex Lactate Order REFLEX LACTIC ORDERD
[2024-06-20 23:48] LABS: Troponin 5 2HR 196.3 ng/L (0-10); Troponin 5 2HR Delta 140.3 ABS# (0-10)
[2024-06-21] VITALS (25 sets, daily range): BP systolic 123–173; BP diastolic 52–93; PULSE 68–92; RESP 12–24; O2SAT 94–97
[2024-06-21 00:27] LABS: Lactic Acid level (Lactate) 2.7 mmol/L (0.5-2.2)
[2024-06-21] MEDS: ondansetron 2 mg/ML SDV 2 mL 4 MG IVP (02:57)
[2024-06-21] MEDS: morphine 4 mg/mL SDV 1 mL IVP (03:00)
[2024-06-21] MEDS: insulin regular-human 100 units/1 mL 10 UNIT IVP (03:02)
--- NOTE | 2024-06-21 03:03 | ECG_ITS ---
[employer] Test Date: 2024-06-21 Pat Name: Lady López Department: Room: Gender: Female Assembly Room Supervisor: : 1950 Requested By: Luis Peraza Order Number: [id number] Kelby MD: HEIDY EATON Measurements Intervals [place] Rate: 81 P: 65 [place]: 161 QRS: -86 QRSD: 102 T: 78 QT: 421 QTc: 489 Interpretive Statements SINUS RHYTHM LEFT AXIS DEVIATION [QRS AXIS < -30] INCOMPLETE RIGHT BUNDLE BRANCH BLOCK [90+ ms QRS DURATION, TERMINAL R IN V1/V2, 40+ ms S IN I/aVL/V4/V5/V6] ANTEROSEPTAL MYOCARDIAL INFARCTION , OF INDETERMINATE AGE [40+ ms Q WAVE IN V1-V4] ST DEPRESSION, CONSIDER SUBENDOCARDIAL INJURY [0.1+ mV ST DEPRESSION] Compared to ECG 06/20/2024 22:10:10 Left-axis deviation now present Electronically Signed On 06-22-2024 22:05:40 CDT by HEIDY EATON [id number] [id number]
[2024-06-21 04:10] LABS: Troponin 5 6HR 1665 ng/L (0-10); Troponin 5 6HR Delta 1609 ng/L (0-12)
--- NOTE | 2024-06-21 04:17 | ECG_ITS ---
[employer] Test Date: 2024-06-21 Pat Name: Lady López Department: Room: Gender: Female Quick Service Technician: : 1950 Requested By: Luis Peraza Order Number: [id number] Lama MD: Bryan Posadas M.D. Measurements Intervals [place] Rate: 89 P: 67 [place]: 181 QRS: -85 QRSD: 106 T: 76 QT: 401 QTc: 488 Interpretive Statements SINUS RHYTHM LEFT AXIS DEVIATION [QRS AXIS < -30] INCOMPLETE RIGHT BUNDLE BRANCH BLOCK [90+ ms QRS DURATION, TERMINAL R IN V1/V2, 40+ ms S IN I/aVL/V4/V5/V6] ANTEROSEPTAL MYOCARDIAL INFARCTION , OF INDETERMINATE AGE [40+ ms Q WAVE IN V1-V4] Compared to ECG 06/21/2024 02:49:08 ST (T wave) deviation no longer present Myocardial infarct finding still present Electronically Signed On 06-21-2024 18:13:15 CDT by Bryan Posadas M.D. [id number] [id number]
[2024-06-21] MEDS: nitroglycerin 1 gm/inch oint Pkt 1 INCH TOPICAL (04:44)
[2024-06-21] MEDS: nitroglycerin 0.4 mg sublingual Tablet SUBLINGUAL (04:45)
[2024-06-21] MEDS: aspirin 81 mg Chew Tablet 324 MG PO (04:45)
[2024-06-23 13:42] LABS: Glucose Point of Care 393 mg/dL (70-110)
[2024-06-23 13:42] LABS: Glucose Point of Care 334 mg/dL (70-110)
== END 2024-06-21 05:54 | disposition short-term general hospital (02) ==
PROVIDERS: Emergency Provider Emergency Medicine; PCP Family Medicine
DX: J96.21 Acute and chronic respiratory failure with hypoxia (principal); J44.9 Chronic obstructive pulmonary disease, unspecified; R79.89 Other specified abnormal findings of blood chemistry; R00.0 Tachycardia, unspecified; E11.65 Type 2 diabetes mellitus with hyperglycemia; Z79.01 Long term (current) use of anticoagulants; Z79.4 Long term (current) use of insulin; Z79.02 Long term (current) use of antithrombotics/antiplatelets; E78.5 Hyperlipidemia, unspecified; I11.0 Hypertensive heart disease with heart failure; I50.30 Unspecified diastolic (congestive) heart failure
CPT/HCPCS: 36415; 36416; 36600; 51702; 71045; 80051; 80053; 80306; 81001; 82009; 82330; 82805; 82962; 83605; 83735; 83880; 84145; 84484; 85025; 85610; 87040; 87086; 93005; 94660; 96365; 96372; 96375; 99285; 99291; 99292; J1650; J1815; J1938; J2270; J2405; J2543; J2919; J3490; J9999

== ENCOUNTER → 2024-07-09 15:48 | Outpatient (BNVA) | payer MEDICAID, SELFPAY | PROVIDERS: PCP Family Medicine; Visit Provider Internal Medicine Cardiovascular Disease | DX: Z09 Encounter for follow-up examination after completed treatment for conditions other than malignant neoplasm (principal); I11.0 Hypertensive heart disease with heart failure; I50.9 Heart failure, unspecified; J15.9 Unspecified bacterial pneumonia; J44.1 Chronic obstructive pulmonary disease with (acute) exacerbation; I25.10 Atherosclerotic heart disease of native coronary artery without angina pectoris; Z79.01 Long term (current) use of anticoagulants; Z95.5 Presence of coronary angioplasty implant and graft; I25.2 Old myocardial infarction | CPT/HCPCS: 99214 ==

== ENCOUNTER 2024-07-29 22:50 | Emergency (ER) | payer MEDICAID, SELFPAY ==
[2024-07-29 22:52] VITALS: BP 137/64; PULSE 89; RESP 18; TEMP 36.8; O2SAT 97; BMI 35.6
[2024-07-29 22:55] VITALS: BP 137/64; PULSE 86; O2SAT 99
--- NOTE | 2024-07-29 22:57 | XRR_ITS ---
PROCEDURE INFORMATION: Exam: XR Chest Exam date and time: 07/29/2024 11:20 PM Age: 74 years old Clinical indication: Pain; Chest pressure; Additional info: Chest pain TECHNIQUE: Imaging protocol: Radiologic exam of the chest. Views: 1 view. COMPARISON: CR (CHEST, ) 06/20/2024 9:17 PM FINDINGS: Lungs: Mild pulmonary vascular congestion. Left lower lobe atelectasis versus minimal infiltrate. Pleural spaces: Small left pleural effusion. Heart/Mediastinum: Cardiomegaly. Bones/joints: Unremarkable. XR/XR chest 1V portable [id number] IMPRESSION: 1. Small left pleural effusion. 2. Cardiomegaly. 3. Mild pulmonary vascular congestion. 4. Left lower lobe atelectasis versus minimal infiltrate.
--- NOTE | 2024-07-29 22:57 | ECG_ITS ---
[facility] Date: 2024-07-29 Pat Name: Lady López Department: Room: Gender: Female Procedure Manager: : 1950 Requested By: Shaheed Cervantes Order Number: [id number] Kelby MD: HEIDY EATON Measurements Intervals [place] Rate: 88 P: 61 [place]: 175 QRS: -58 QRSD: 96 T: 70 QT: 405 QTc: 492 Interpretive Statements SINUS RHYTHM LEFT AXIS DEVIATION [QRS AXIS < -30] LOW QRS VOLTAGE IN PRECORDIAL LEADS [QRS DEFLECTION < 1.0 mV IN CHEST LEADS] ANTEROSEPTAL MYOCARDIAL INFARCTION , OF INDETERMINATE AGE [40+ ms Q WAVE IN V1-V4] Compared to ECG 06/21/2024 04:17:53 Low QRS voltage now present Incomplete right bundle-branch block no longer present Myocardial infarct finding still present Electronically Signed On 07-31-2024 23:32:30 CDT by HEIDY EATON [id number]
[2024-07-29 23:09] LABS: Basophils # 0.1 10^3/uL (0.0-0.1); Basophils % 0.5 %; Eosinophils # 0.3 10^3/uL (0.0-0.8); Eosinophils % 2.6 %; Hematocrit 26.3 % (36-47); Lymphocytes # 1.7 10^3/uL (0.8-4.8); Lymphocytes % 17.4 %; Mean Corpuscular HGB Conc 30.8 g/dL (30-55); Mean Corpuscular Hemoglobin 26.1 pg (27-33); Mean Corpuscular Volume 84.8 fl (85-98); Mean Platelet Volume 9.2 fL (7.4-10.4); Monocytes # 0.7 10^3/uL (0.2-0.9); Monocytes % 7.7 %; Neutrophils # 6.89 10^3/uL (1.8-7.7); Neutrophils % 71.4 %; Nucleated Red Blood Cells % 0 %; Platelet Count 352 10^3/cmm (157-399); Red Cell Distribution Width 13.9 % (12.1-15.1); White Blood Count 9.65 10^3/uL (3.29-11.43)
[2024-07-29 23:10] VITALS: PULSE 85; O2SAT 99
[2024-07-29 23:15] VITALS: BP 137/84; PULSE 91; O2SAT 96
[2024-07-29 23:28] LABS: Troponin(5th) Baseline 26 ng/L (0-10)
[2024-07-29 23:30] VITALS: BP 147/64; PULSE 87; O2SAT 100
[2024-07-29 23:35] LABS: Alanine Aminotransferase 9 U/L (0-33); Albumin Level 3.2 g/dL (3.5-5.2); Alkaline Phosphatase 72 U/L (35-105); Anion Gap 14.6 (5-19); Aspartate Amino Transferase 11 U/L (0-32); Blood Urea Nitrogen 23 mg/dL (8-23); Calcium 8.6 mg/dL (8.5-10.5); Carbon Dioxide 26 mmol/L (22-29); Chloride 100 mmol/L (98-107); Creatinine Clr Calc Pharmacy 57.8058; Globulin 3.3 g/dL (1.3-4.6); Glucose 178 mg/dL (65-115); NT Pro B Type Natriuretic Pept 7325 pg/mL (0-125); Osmolality Calculated 290 mOsm/kg (285-295); Potassium 4.6 mmol/L (3.5-5.1); Sodium 136 mmol/L (136-145); Total Bilirubin 0.2 mg/dL (0.15-1.2); Total Protein 6.5 g/dL (6.6-8.7)
[2024-07-29 23:45] VITALS: BP 152/80; PULSE 90; O2SAT 100
[2024-07-29] MEDS: morphine 4 mg/mL SDV 1 mL IVP (23:49)
[2024-07-30] VITALS (24 sets, daily range): BP systolic 119–171; BP diastolic 50–139; PULSE 88–112; RESP 12–35; O2SAT 90–100
--- NOTE | 2024-07-30 00:37 | W.ED.CHESTPA ---
HPI - Chest Pain General: Chief Complaint: Chest Pain Stated Complaint: CHEST PAIN Time Seen by Provider: 07/29/24 22:57 History of Present Illness: Patient is a generally well-appearing 74 old female from detention seen for chest pain which she describes as 12 of 10, sharp, left sided radiating to her back. She states that she has been coughing at the same time as her chest pain. Nothing seems to make the pain better. She denies fever, lightheadedness, shortness of breath, abdominal pain, nausea, vomiting, diarrhea, constipation, and has no other acute complaints Related Data Home Medications ?Medication ?Instructions ?Recorded ?Confirmed acetaminophen 500 mg capsule 1,000 mg PO Q8H PRN Pain 02/01/23 07/09/24 insulin glargine 100 unit/mL 20 unit SUBCUT DAILY 03/22/23 07/09/24 subcutaneous solution (Lantus U-100 Insulin) clopidogrel 75 mg tablet 75 mg PO DAILY 06/07/24 07/09/24 ondansetron HCl 4 mg tablet 4 mg PO Q6H PRN Nausea And Vomiting 06/07/24 07/09/24 polyethylene glycol 3350 17 17 g PO DAILY 06/07/24 07/09/24 gram/dose oral powder tiotropium bromide 2.5 2 puff inhalation DAILY 06/07/24 07/09/24 mcg/actuation mist for inhalation (Spiriva Respimat) calcium carbonate (Calcium Antacid) 200 mg PO BID 07/09/24 07/09/24 rosuvastatin 20 mg tablet 20 mg PO DAILY 07/09/24 07/09/24 Previous Rx's ?Medication ?Instructions ?Recorded apixaban 5 mg tablet (Eliquis) 5 mg PO BID #90 tabs 03/15/23 pantoprazole 40 mg tablet,delayed 40 mg PO DAILY for stomach #90 tabs 03/15/23 release albuterol sulfate 90 mcg/actuation 2 inh inhalation Q6H PRN shortness 07/17/23 aerosol inhaler of breath or wheezing #8.5 grams dapagliflozin propanediol 10 mg 10 mg PO DAILY #30 tabs 01/20/24 tablet (Farxiga) hydralazine 25 mg tablet 25 mg PO TID #90 tabs 01/20/24 bumetanide 2 mg tablet 1 mg (1/2 x 2 mg) PO BID 30 days 06/12/24 #30 tabs insulin lispro 100 unit/mL See Rx Instructions .Route 06/12/24 subcutaneous solution (Humalog .COMPLEX #10 mL U-100 Insulin) Allergies Allergy/AdvReac Type Severity Reaction Status Date / Time codeine Allergy Unknown ADR-Diarrhe Verified 07/29/24 22:55 a tetanus and diphtheria Allergy Unknown Unknown Verified 07/29/24 22:55 toxoids atorvastatin Allergy ADR-Faintin Verified 07/29/24 22:55 g PFSH ED PFSH: Medical History Non-ST elevation (NSTEMI) myocardial infarction Fracture of left hip requiring operative repair Atherosclerosis of coronary artery Fracture, intertrochanteric, left femur Left radial head fracture Open fracture of distal ends of both radius and ulna Hearing loss Gastroparesis Orthostasis Supplemental oxygen dependent Failure to thrive in adult Hyperglycemia Anemia Hyponatremia Nausea & vomiting Dilation of pulmonary artery GERD (gastroesophageal reflux disease) Restless leg syndrome Presence of stent in coronary artery in patient with coronary artery disease Heart failure with preserved ejection fraction Altered mental status Diabetes CHF (congestive heart failure) Hyperlipidemia Pulmonary embolism DKA (diabetic ketoacidosis) Hypertensive urgency DM type 2 (diabetes mellitus, type 2) Arthritis Asthma HTN (hypertension) Small bowel mass Surgical History S/P ORIF (open reduction internal fixation) fracture Hx of cholecystectomy Family History Other Cancer Stroke Social History Smoking and tobacco/nicotine status: never used tobacco/nicotine Alcohol intake: never Substance/Drug Use: never Lives independently: Yes Household members: none Marital status: / Course Vital Signs: Vital signs: Vital Signs Temperature 98.3 F 07/29/24 22:52 Pulse Rate 88 07/30/24 03:15 Respiratory Rate 16 07/30/24 03:15 Blood Pressure 126/51 07/30/24 03:15 Pulse Oximetry 100 07/30/24 03:15 Oxygen Delivery Me thod BiPAP 07/30/24 03:15 Oxygen Flow Rate 2 07/30/24 01:45 Fraction of Inspir ed Oxygen 60 07/30/24 02:25 MDM - Chest Pain Medical Decision Making Patient remained hemodynamically stable 30 course. EKG, chest x-ray, labs show no acute changes. On 2 L nasal cannula she is saturating at 97% and sleeping soundly. I do not suspect ACS, PE, pneumonia, or any other emergent process warranting further workup at this time patient be discharged in stable and improved condition back to her detention Lab Data 07/29/24 23:01 07/29/24 23:01 Radiology Impressions Chest X-Ray 07/29/24 22:57 IMPRESSION: 1. Small left pleural effusion. 2. Cardiomegaly. 3. Mild pulmonary vascular congestion. 4. Left lower lobe atelectasis versus minimal infiltrate. Chest CTA 07/30/24 02:41 IMPRESSION: 1. Negative exam for pulmonary embolus and aortic dissection. 2. Diffuse bronchitis with multiple nodular alveolar opacities and areas of tree-in-bud throughout the lungs concerning for aspiration pneumonia. 3. Diffuse interlobular septal thickening suggesting a component of interstitial edema. 4. Bilateral tdve-fc-phlvtjgs pleural effusions associated with passive atelectasis. 5. Stable mediastinal lymphadenopathy, likely reactive. Laboratory Results WBC 9.65 10^3/uL (3.29-11.43) 07/29/24 23: RBC 3.10 10^6/uL (3.85-5.65) L 07/29/24 23:01 Hgb 8.10 g/dL (11.27-16.99) L 07/29/24 23:01 Hct 26.3 % (36-47) L 07/29/24 23:01 MCV 84.8 fl (85-98) L 07/29/24 23:01 MCH 26.1 pg (27-33) L 07/29/24 23:01 MCHC 30.8 g/dL (30-55) 07/29/24 23: RDW 13.9 % (12.1-15.1) 07/29/24 23: Plt Count 352 10^3/cmm (157-399) 07/29/24 23:01 MPV 9.2 fL (7.4-10.4) 07/29/24 23: Neut % (Auto) 71.4 % 07/29/24 23:01 Lymph % (Auto) 17.4 % 07/29/24 23:01 [place] % (Auto) 7.7 % 07/29/24 23:01 Eos % (Auto) 2.6 % 07/29/24 23:01 Baso % (Auto) 0.5 % 07/29/24 23:01 Neut # (Auto) 6.89 10^3/uL (1.8-7.7) 07/29/24 23:01 Lymph # (Auto) 1.7 10^3/uL (0.8-4.8) 07/29/24 23:01 [place] # (Auto) 0.7 10^3/uL (0.2-0.9) 07/29/24 23:01 Eos # (Auto) 0.3 10^3/uL (0.0-0.8) 07/29/24 23:01 Baso # (Auto) 0.1 10^3/uL (0.0-0.1) 07/29/24 23:01 Nucleated RBC % (auto) 0 % 07/29/24 23:01 Nucleated RBCs # 0.0 /100WBC 07/29/24 23:01 Specimen Type Arterial 07/30/24 02:15 Sample Site Radial, right 07/30/24 02:15 ABG pH 7.32 (7.35-7.45) L 07/30/24 02:15 ABG pCO2 53.8 mmHg (35-45) H 07/30/24 02:15 ABG pO2 63.6 mmHg (80.0-100.0) L 07/30/24 02:15 ABG HCO3 27.7 mmol/L (22-26) H 07/30/24 02:15 ABG Base Excess 1.0 mmol/L (-2.0-2.0) 07/30/24 02:15 Stephen Test Pos 07/30/24 02:15 Hematocrit 30.7 % (37-47) L 07/30/24 02:15 O2 Delivery Device Nc 07/30/24 02:15 O2 Liters/Min 5.0 % 07/30/24 02:15 Master Electrician ID gerca 07/30/24 02:15 Sodium 136 mmol/L (136-145) 07/29/24 23:01 Potassium 4.6 mmol/L (3.5-5.1) 07/29/24 23:01 Chloride 100 mmol/L (98-107) 07/29/24 23:01 Carbon Dioxide 26 mmol/L (22-29) 07/29/24 23:01 Anion Gap 14.6 (5-19) 07/29/24 23:01 BUN 23 mg/dL (8-23) 07/29/24 23:01 Creatinine 1.0 mg/dL (0.5-0.9) H 07/29/24 23:01 GFR Calculation Not Reportable 07/29/24 23: Glucose 178 mg/dL (65-115) H 07/29/24 23:01 Calculated Osmolality 290 mOsm/kg (285-295) 07/29/24 23: Calcium 8.6 mg/dL (8.5-10.5) 07/29/24 23: Total Bilirubin 0.2 mg/dL (0.15-1.2) 07/29/24 23:01 AST 11 U/L (0-32) 07/29/24 23: ALT 9 U/L (0-33) 07/29/24 23:01 Alkaline Phosphatase 72 U/L (35-105) 07/29/24 23:01 Troponin T Baseline 26 ng/L (0-10) H 07/29/24 23:01 Troponin T 120 Minute 26.16 ng/L (0-10) H 07/30/24 01:23 Delta Troponin T 0.16 ABS# (0-10) 07/30/24 01:23 NT-Pro-B Natriuret Pep 7325 pg/mL (0-125) H 07/29/24 23:01 Total Protein 6.5 g/dL (6.6-8.7) L 07/29/24 23:01 Albumin 3.2 g/dL (3.5-5.2) L 07/29/24 23:01 Globulin 3.3 g/dL (1.3-4.6) 07/29/24 23:01 All radiology interpretation(s) finalized by discharge EKG Data EKG 1: Interpretation: Time?2251?normal sinus rhythm, rate of 88, no ST segment elevation or depression, no T wave inversions, intervals within normal limits. QTc = 451 Discharge Plan Discharge Patient Disposition: Home Clinical Impression: Chest pain Condition: Stable Prescriptions: No Action acetaminophen 500 mg capsule 1,000 mg PO Q8H PRN (Reason: Pain) calcium carbonate [Calcium Antacid] 200 mg calcium (500 mg) tablet,chewable 200 mg PO BID rosuvastatin 20 mg tablet 20 mg PO DAILY pantoprazole 40 mg tablet,delayed release (DR/EC) 40 mg PO DAILY Qty: 90 3RF Eliquis 5 mg tablet 5 mg PO BID Qty: 90 3RF insulin glargine [Lantus U-100 Insulin] 100 unit/mL solution 20 unit SUBCUT DAILY albuterol sulfate 90 mcg/actuation HFA aerosol inhaler 2 inh inhalation Q6H PRN (Reason: shortness of breath or wheezing) Qty: 8.5 0RF dapagliflozin propanediol [Farxiga] 10 mg tablet 10 mg PO DAILY Qty: 30 0RF hydralazine 25 mg tablet 25 mg PO TID Qty: 90 0RF ondansetron HCl 4 mg Tablet 4 mg PO Q6H PRN (Reason: Nausea And Vomiting) Spiriva Respimat 2.5 mcg/actuation Mist 2 puff INHALATION DAILY clopidogrel 75 mg tablet 75 mg PO DAILY Rx Instructions: TAKE 1 TABLET BY MOUTH EVERY DAY polyethylene glycol 3350 17 gram/dose Powder 17 g PO DAILY insulin lispro [Humalog U-100 Insulin] 100 unit/mL Solution See Rx Instructions .ROUTE .COMPLEX Qty: 10 0RF Rx Instructions: Inject, subcut, 3 times daily, after meals, based on low-dose insulin sliding scale bumetanide 2 mg Tablet 1 mg PO BID 30 Days Qty: 30 0RF Discharge Orders: Discharge ED (Routine); Ordered 07/30/24 Ordered By: Shaheed Barnes Referrals: Mat Chirinos DO [Primary Care Provider, [facility]] Discharge Diet: Advance as tolerated Discharge Activity: Increase activity as tolerated Patient Instructions: Chest Pain (ED) Activity Restrictions/Additional Instructions: Mrs. López remained hemodynamically stable throughout her ED course. On 2 L nasal cannula she is saturating 97% in her sleep. EKG shows nothing acute and troponin is stable and BNP shows no great change from prior measurements. There is no evidence of ACS, PE, pneumonia, or any other emergency requiring hospitalization. Is safe to resume her normal meds. Print Language: Czech Coding Level of Care Code ED Bomb Loader for Sasha Cox
--- NOTE | 2024-07-30 01:18 | ECG_ITS ---
[facility] Test Date: 2024-07-30 Pat Name: Lady López Department: Room: Gender: Female Idea Man: : 1950 Requested By: Shaheed Cervantes Order Number: [id number] Kelby MD: HEIDY EATON Measurements Intervals [place] Rate: 88 P: 62 [place]: 179 QRS: -54 QRSD: 103 T: 64 QT: 404 QTc: 491 Interpretive Statements SINUS RHYTHM LEFT AXIS DEVIATION [QRS AXIS < -30] LOW QRS VOLTAGE IN PRECORDIAL LEADS [QRS DEFLECTION < 1.0 mV IN CHEST LEADS] ANTEROSEPTAL MYOCARDIAL INFARCTION , OF INDETERMINATE AGE [40+ ms Q WAVE IN V1-V4] INTERPRETATION BASED ON A DEFAULT AGE OF 40 YEARS Compared to ECG 07/29/2024 22:52:39 No significant changes Electronically Signed On 07-31-2024 23:40:30 CDT by HEIDY EATON [id number]
[2024-07-30] MEDS: morphine 4 mg/mL SDV 1 mL IVP (01:29)
[2024-07-30 01:50] LABS: Troponin 5 2HR 26.16 ng/L (0-10); Troponin 5 2HR Delta 0.16 ABS# (0-10)
[2024-07-30 02:27] LABS: ABG PCO2 53.8 mmHg (35-45); ABG PH Result 7.32 (7.35-7.45); Arterial Blood Gas Hematocrit 30.7 % (37-47); Blood Gas Allen Test Pos; Blood Gas Operator Identificat gerca; Blood Gas Sample Site Radial, right; Blood Gas Sample Type Arterial; HCO3 ABG 27.7 mmol/L (22-26); Oxygen Device NC; PO2 ABG 63.6 mmHg (80.0-100.0)
[2024-07-30] MEDS: LORazepam 1 MG/0.5 ML injection 0.5 MG IVP (02:31)
--- NOTE | 2024-07-30 02:41 | CTR_ITS ---
PROCEDURE INFORMATION: Exam: CTA Chest With Contrast Exam date and time: 07/30/2024 2:56 AM Age: 74 years old Clinical indication: Shortness of breath; Additional info: SOB TECHNIQUE: Imaging protocol: Computed tomographic angiography of the chest with contrast. Exam focused on the arteries. 3D rendering (Not supervised by radiologist): MIP and/or 3D reconstructed images were created by the technologist. Radiation optimization: All CT scans at this facility use at least one of these dose optimization techniques: automated exposure control; mA and/or kV adjustment per patient size (includes targeted exams where dose is matched to clinical indication); or iterative reconstruction. Contrast material: OMNI 350; Contrast volume: 100 ml; Contrast route: INTRAVENOUS (IV); COMPARISON: CT angio chest PE protcl [id number] 06/07/2024 6:02 AM RADIATION DOSE METRICS: Total DLP (mGy-cm): 898 FINDINGS: Pulmonary arteries: Normal. No pulmonary emboli. Aorta: Calcific plaque involves the thoracic aorta and coronary arteries. The thoracic aorta is free of aneurysm and dissection. Lungs: Diffuse bronchial wall thickening present. There are multiple filling defects in the bilateral lower lobe bronchi. Scattered areas of tree-in-bud present throughout the lungs. Nodular airspace disease present bilaterally. Mild interlobular septal thickening. Areas of passive atelectasis present dependently. Pleural spaces: Bilateral xqre-jh-qtyisufo pleural effusions. Heart: The heart is enlarged. No pericardial effusion. Lymph nodes: Stable prominent mediastinal and hilar lymph nodes. No axillary lymphadenopathy. Bones/joints: Multilevel degenerative changes involve the spine. No acute bony abnormality. Soft tissues: Unremarkable. CT/CT angio chest PE protcl [id number] IMPRESSION: 1. Negative exam for pulmonary embolus and aortic dissection. 2. Diffuse bronchitis with multiple nodular alveolar opacities and areas of tree-in-bud throughout the lungs concerning for aspiration pneumonia. 3. Diffuse interlobular septal thickening suggesting a component of interstitial edema. 4. Bilateral wiom-et-vngsjxnj pleural effusions associated with passive atelectasis. 5. Stable mediastinal lymphadenopathy, likely reactive.
[2024-07-30] MEDS: iohexol 350 mg/mL 500 mL Btl (per mL) IV (03:06)
== END 2024-07-30 06:03 | disposition home or self-care (01) ==
PROVIDERS: Emergency Provider Student in an Organized Health Care Education/Training Program; PCP Electrodiagnostic Medicine
DX: R07.9 Chest pain, unspecified (principal); Z79.01 Long term (current) use of anticoagulants; Z79.4 Long term (current) use of insulin; Z79.02 Long term (current) use of antithrombotics/antiplatelets; I25.10 Atherosclerotic heart disease of native coronary artery without angina pectoris; E11.9 Type 2 diabetes mellitus without complications; I11.0 Hypertensive heart disease with heart failure; I50.30 Unspecified diastolic (congestive) heart failure
CPT/HCPCS: 36415; 36600; 71045; 71275; 80053; 82803; 83880; 84484; 85025; 93005; 96374; 96375; 99285; J2060; J2270

== ENCOUNTER 2024-09-03 17:38 | Inpatient (IN) | payer MEDICAID, SELFPAY ==
[2024-09-03] VITALS (16 sets, daily range): BP systolic 99–171; BP diastolic 53–92; PULSE 68–87; RESP 16–35; TEMP 36.4–37.1; O2SAT 94–100; BMI 38.9
--- NOTE | 2024-09-03 17:44 | ECG_ITS ---
[email or web address] [facility] Test Date: 2024-09-03 Pat Name: Lady López Department: Room: Gender: Female Shop Lead: : 1950 Requested By: Chiquita Sommers Order Number: [id number] Lama MD: Mckinley Stark M.D. Measurements Intervals [place] Rate: 86 P: 44 [place]: 180 QRS: -51 QRSD: 93 T: 84 QT: 384 QTc: 461 Interpretive Statements SINUS RHYTHM LOW QRS VOLTAGE IN PRECORDIAL LEADS [QRS DEFLECTION < 1.0 mV IN CHEST LEADS] LEFT ANTERIOR FASCICULAR BLOCK [QRS AXIS <= -45, QR IN I, RS IN II] INFERIOR MYOCARDIAL INFARCTION , PROBABLY OLD [40+ ms Q WAVE AND/OR ST/T ABNORMALITY IN II/aVF] ANTEROSEPTAL MYOCARDIAL INFARCTION , OF INDETERMINATE AGE [40+ ms Q WAVE IN V1-V4] Compared to ECG 07/30/2024 01:18:55 Left anterior fascicular block now present Left-axis deviation no longer present Myocardial infarct finding still present Electronically Signed On 09-04-2024 06:00:30 CDT by Mckinley Stark M.D. [id number]
--- NOTE | 2024-09-03 17:50 | XRR_ITS ---
PROCEDURE INFORMATION: Exam: XR Chest Exam date and time: 09/03/2024 6:01 PM Age: 74 years old Clinical indication: Shortness of breath TECHNIQUE: Imaging protocol: Radiologic exam of the chest. Views: 1 view. COMPARISON: CT angio chest PE protcl [id number] 30/07/2024 02:56 FINDINGS: Lungs: Various monitoring leads and tubing artifacts overlie the chest. Increased density at both bases is seen consistent with prominent effusions. Soft tissues are pronounced and the diminished penetration challenges resolution. Possible right medial basilar atelectasis or infiltrate. No consolidation. Pleural spaces: Prominent increased density at both bases consistent with ssrlycjq-ls-nbigge bilateral pleural effusions. No pneumothorax. Heart/Mediastinum: Cardiac silhouette enlarged but not well seen due to the prominent effusions. Calcified granulomata seen along the azygos region right hilar region. Bones/joints: Unremarkable. XR/XR chest 1V portable [id number] IMPRESSION: 1. Dnuisgqe-uq-iwnosn bilateral pleural effusions. 2. Possible right medial basilar atelectasis or infiltrate. 3. Cardiomegaly with central vascular engorgement on this semi upright study.
--- NOTE | 2024-09-03 17:52 | W.ED.CHESTPA ---
HPI - Chest Pain General: Chief Complaint: Chest Pain Stated Complaint: SOB, CP Time Seen by Provider: 09/03/24 17:43 History of Present Illness: 74-year-old female with a history of obesity, diabetes, coronary artery disease, congestive heart failure, hyperlipidemia, asthma/COPD, pulmonary embolism, chronic anticoagulation on Eliquis and Plavix who presents to the emergency room with shortness of breath. She presents by ambulance from senior living. Patient currently on 3 L nasal cannula. She tells me she is not normally on oxygen. She is complaining of right sided chest pain. Worsening lower extremity edema. Related Data Home Medications ?Medication ?Instructions ?Recorded ?Confirmed acetaminophen 500 mg capsule 1,000 mg PO Q8H PRN Pain 02/01/23 07/09/24 insulin glargine 100 unit/mL 20 unit SUBCUT DAILY 03/22/23 07/09/24 subcutaneous solution (Lantus U-100 Insulin) clopidogrel 75 mg tablet 75 mg PO DAILY 06/07/24 07/09/24 ondansetron HCl 4 mg tablet 4 mg PO Q6H PRN Nausea And Vomiting 06/07/24 07/09/24 polyethylene glycol 3350 17 17 g PO DAILY 06/07/24 07/09/24 gram/dose oral powder tiotropium bromide 2.5 2 puff inhalation DAILY 06/07/24 07/09/24 mcg/actuation mist for inhalation (Spiriva Respimat) calcium carbonate (Calcium Antacid) 200 mg PO BID 07/09/24 07/09/24 rosuvastatin 20 mg tablet 20 mg PO DAILY 07/09/24 07/09/24 Previous Rx's ?Medication ?Instructions ?Recorded apixaban 5 mg tablet (Eliquis) 5 mg PO BID #90 tabs 03/15/23 pantoprazole 40 mg tablet,delayed 40 mg PO DAILY for stomach #90 tabs 03/15/23 release albuterol sulfate 90 mcg/actuation 2 inh inhalation Q6H PRN shortness 07/17/23 aerosol inhaler of breath or wheezing #8.5 grams dapagliflozin propanediol 10 mg 10 mg PO DAILY #30 tabs 01/20/24 tablet (Farxiga) hydralazine 25 mg tablet 25 mg PO TID #90 tabs 01/20/24 bumetanide 2 mg tablet 1 mg (1/2 x 2 mg) PO BID 30 days 06/12/24 #30 tabs insulin lispro 100 unit/mL See Rx Instructions .Route 06/12/24 subcutaneous solution (Humalog .COMPLEX #10 mL U-100 Insulin) Allergies Allergy/AdvReac Type Severity Reaction Status Date / Time codeine Allergy Unknown ADR-Diarrhe Verified 07/29/24 22:55 a tetanus and diphtheria Allergy Unknown Unknown Verified 07/29/24 22:55 toxoids atorvastatin Allergy ADR-Faintin Verified 07/29/24 22:55 g Review of Systems Narrative: Constitutional symptoms: Negative except as documented in HPI. Skin symptoms: Negative except as documented in HPI. Eye symptoms: Negative except as documented in HPI. ENMT symptoms: Negative except as documented in HPI. Respiratory symptoms: Negative except as documented in HPI. Cardiovascular symptoms: Negative except as documented in HPI. Gastrointestinal symptoms: Negative except as documented in HPI. Genitourinary symptoms: Negative except as documented in HPI. Musculoskeletal symptoms: Negative except as documented in HPI. Neurologic symptoms: Negative except as documented in HPI. Psychiatric symptoms: Negative except as documented in HPI. Endocrine symptoms: Negative except as documented in HPI. PFSH ED PFSH: Medical History Non-ST elevation (NSTEMI) myocardial infarction Fracture of left hip requiring operative repair Atherosclerosis of coronary artery Fracture, intertrochanteric, left femur Left radial head fracture Open fracture of distal ends of both radius and ulna Hearing loss Gastroparesis Orthostasis Supplemental oxygen dependent Failure to thrive in adult Hyperglycemia Anemia Hyponatremia Nausea & vomiting Dilation of pulmonary artery GERD (gastroesophageal reflux disease) Restless leg syndrome Presence of stent in coronary artery in patient with coronary artery disease Heart failure with preserved ejection fraction Altered mental status Diabetes CHF (congestive heart failure) Hyperlipidemia Pulmonary embolism DKA (diabetic ketoacidosis) Hypertensive urgency DM type 2 (diabetes mellitus, type 2) Arthritis Asthma HTN (hypertension) Small bowel mass Surgical History S/P ORIF (open reduction internal fixation) fracture Hx of cholecystectomy Family History Other Cancer Stroke Social History Smoking and tobacco/nicotine status: never used tobacco/nicotine Alcohol intake: never Substance/Drug Use: never Lives independently: Yes Household members: none Marital status: / Physical Exam Narrative: EXAM NARRATIVE: General: Alert, no acute distress. Skin: Warm, dry. Head: Normocephalic, atraumatic. Neck: Supple, trachea midline. Eye: Extraocular movements are intact. Ears, nose, mouth and throat: mucosa moist. Cardiovascular: Regular, Normal peripheral perfusion. 2-3+ pitting edema of the lower extremities with some venous stasis dermatitis Respiratory: Coarse breath sounds, tachypnea, moderate increased work of breathing Gastrointestinal: Soft, Nontender, Non distended Musculoskeletal: Normal ROM, no deformity. Neurological: Alert and oriented, No focal neurological deficit observed. Psychiatric: Cooperative, appropriate mood & affect. Course Vital Signs: Vital signs: Vital Signs Temperature 97.6 F 09/03/24 20:56 Pulse Rate 82 09/03/24 20:56 Respiratory Rate 18 09/03/24 20:56 Blood Pressure 149/64 09/03/24 20:56 Pulse Oximetry 98 09/03/24 20:56 Oxygen Delivery Me thod Nasal Cannula 09/03/24 17:42 Oxygen Flow Rate 3 09/03/24 17:42 Fraction of Inspir ed Oxygen 30 09/03/24 18:23 MDM - Chest Pain Medical Decision Making Differential diagnosis for patient with shortness of breath includes but is not limited to and based on the above HPI, review of systems and physical exam: Pneumonia. Bronchitis. Asthma or COPD with acute exacerbation. Acute coronary syndrome / OR. Pulmonary embolism. Anxiety. Congestive heart failure. Viral infections including influenza and Covid-19. Atrial fibrillation. Anxiety. Pleural effusion. Pneumothorax. Orders placed to evaluate differential diagnosis based on the above differential, HPI and physical exam AB.4 with an O2 sat of 94% on 3 L nasal cannula. Patient was placed on a BiPAP despite fairly normal blood gas on 3 L secondary to her work of breathing. Chest x-ray: Cardiomegaly, right pleural effusion/early congestive heart failure. Right medial basilar atelectasis versus infiltrate. Given the patient's right sided chest pain and hypoxemic respiratory failure and we will treat this as a pneumonia. This was reviewed and interpreted by myself the emergency room physician. I also reviewed the radiology report. EKG: Time 1745. Rate 86. Nonspecific ST changes./ST depression. Normal sinus rhythm, no ectopy, normal NV & QRS intervals, This was reviewed and interpreted by myself the ER physician at 1750. Lab Review: Laboratory results were reviewed and interpreted by myself the emergency room physician. White count is 10. Worsening anemia with a hemoglobin of 7.3. 1 unit PRBC ordered. BUN and creatinine 29 and 1 which are right around her baseline. I reviewed the patient's medical record. Reexamination: Patient appears more comfortable on the BiPAP. Work of breathing is improved. No altered mental status. No focal motor deficits. Consultation: I spoke with Dr. Ron who is on-call for the hospitalist service who agrees to admission Assessment and plan: Hypoxemic respiratory failure Acute exacerbation of congestive heart failure Anemia Pneumonia ?BiPAP for work of breathing. And worsening hypoxemia. - 80 mg IV Lasix. ?Azithromycin and Rocephin. She is having right sided chest pain and possible infiltrate on the right side. -I discussed the patient with the hospitalist on-call who is admitting the patient. - Discussed findings and plan with patient. Answered any questions. - All laboratory values were reviewed and interpreted personally by myself, the ER physician - All imaging was reviewed and interpreted personally by myself, the ER physician. - Evaluation and treatment of this problem were appropriate in the emergency setting Critical care -I spent a total of >35 minutes of critical care time managing the patient, independent of any other practitioner. -The time involved in the performance of separately reportable procedures was not counted towards critical care time. Lab Data 09/03/24 18:23 09/03/24 18:23 Radiology Impressions Chest X-Ray 09/03/24 17:50 IMPRESSION: 1. [id number]-[id number] bilateral pleural effusions. 2. Possible right medial basilar atelectasis or infiltrate. 3. Cardiomegaly with central vascular engorgement on this semi upright study. Laboratory Results WBC 10.32 10^3/uL (3.29-11.43) 09/03/24 18: RBC 3.03 10^6/uL (3.85-5.65) L 09/03/24 18: Hgb 7.30 g/dL (11.27-16.99) L 09/03/24 18:23 Hct 25.4 % (36-47) L 09/03/24 18: MCV 83.8 fl (85-98) L 09/03/24 18: MCH 24.1 pg (27-33) L 09/03/24 18: MCHC 28.7 g/dL (30-55) L 09/03/24 18: RDW 14.3 % (12.1-15.1) 09/03/24 18: Plt Count 264 10^3/cmm (157-399) 09/03/24 18: MPV 10.1 fL (7.4-10.4) 09/03/24 18: Neut % (Auto) 76.7 % 09/03/24 18: Lymph % (Auto) 13.4 % 09/03/24 18: [place] % (Auto) 7.0 % 09/03/24 18: Eos % (Auto) 1.8 % 09/03/24 18: Baso % (Auto) 0.5 % 09/03/24 18: Neut # (Auto) 7.92 10^3/uL (1.8-7.7) H 09/03/24 18: Lymph # (Auto) 1.4 10^3/uL (0.8-4.8) 09/03/24 18: [place] # (Auto) 0.7 10^3/uL (0.2-0.9) 09/03/24 18: Eos # (Auto) 0.2 10^3/uL (0.0-0.8) 09/03/24 18: Baso # (Auto) 0.1 10^3/uL (0.0-0.1) 09/03/24: Nucleated RBC % (auto) 0 % 09/03/24 18: Nucleated RBCs # 0.0 /100WBC 09/03/24 18: Specimen Type Arterial 09/03/24 17:52 Sample Site Radial, right 09/03/24 17:52 ABG pH 7.40 (7.35-7.45) 09/03/24 17:52 ABG pCO2 51.2 mmHg (35-45) H 09/03/24 17:52 ABG pO2 89.1 mmHg (80.0-100.0) 09/03/24 17:52 ABG HCO3 31.5 mmol/L (22-26) H 09/03/24 17:52 ABG O2 Saturation 97.4 09/03/24 17:52 ABG Base Excess 5.8 mmol/L (-2.0-2.0) H 09/03/24 17:52 Stephen Test Pos 09/03/24 17:52 A-a O2 Gradient Not Reportable 09/03/24 17:52 Hematocrit 25.9 % (37-47) L 09/03/24 17:52 Hgb O2 Saturation 94.7 % (95-100) L 09/03/24 17:52 Carboxyhemoglobin 1.4 %THgb (0.4-20.1) 09/03/24 17:52 Methemoglobin 1.3 % (0.4-1.5) 09/03/24 17:52 Total Hemoglobin 8.5 g/dL (12-16) L 09/03/24 17:52 Sodium 143.0 mmol/L (131-143) 09/03/24 17:52 Potassium 4.4 mmol/L (3.5-5.0) 09/03/24 17:52 Glucose 186.0 mg/dL (70-115) H 09/03/24 17:52 Ionized Calcium 1.2 mmol/L (1.1-1.4) 09/03/24 17:52 O2 Delivery Device Nc 09/03/24 17:52 O2 Liters/Min 3.0 % 09/03/24 17:52 Manager Reading ID [place] 09/03/24 17:52 Sodium 141 mmol/L (136-145) 09/03/24 18:23 Potassium 4.7 mmol/L (3.5-5.1) 09/03/24 18:23 Chloride 102 mmol/L (98-107) 09/03/24 18:23 Carbon Dioxide 28 mmol/L (22-29) 09/03/24 18:23 Anion Gap 15.7 (5-19) 09/03/24 18:23 BUN 29 mg/dL (8-23) H 09/03/24 18:23 Creatinine 1.0 mg/dL (0.5-0.9) H 09/03/24 18:23 GFR Calculation Not Reportable 09/03/24 18:23 Glucose 169 mg/dL (65-115) H 09/03/24 18:23 Calculated Osmolality 302 mOsm/kg (285-295) H 09/03/24 18:23 Lactic Acid 0.9 mmol/L (0.5-2.2) 09/03/24 18:23 Calcium 8.6 mg/dL (8.5-10.5) 09/03/24 18:23 Total Bilirubin 0.2 mg/dL (0.15-1.2) 09/03/24 18:23 AST 18 U/L (0-32) 09/03/24 18:23 ALT 13 U/L (0-33) 09/03/24 18: Alkaline Phosphatase 73 U/L (35-105) 09/03/24 18: Troponin T Baseline 35 ng/L (0-10) H 09/03/24 18:23 C-Reactive Protein 3.0 mg/L (0.0-4.9) 09/03/24 18:23 NT-Pro-B Natriuret Pep 8217 pg/mL (0-125) H 09/03/24 18:23 Total Protein 6.3 g/dL (6.6-8.7) L 09/03/24 18:23 Albumin 3.4 g/dL (3.5-5.2) L 09/03/24 18:23 Globulin 2.9 g/dL (1.3-4.6) 09/03/24 18:23 Blood Type A Positive 09/03/24 19:22 Rho(D) Type Rh positive 09/03/24 19:22 Antibody Screen Negative 09/03/24 19:22 Crossmatch See Detail 09/03/24 19:22 All radiology interpretation(s) finalized by discharge Discharge Plan Discharge Patient Disposition: Admitted As Inpatient Clinical Impression: Acute hypoxemic respiratory failure, Acute exacerbation of congestive heart failure, Chest pain, Anemia Condition: Stable Coding Level of Care Code ED Beverage Host for Sasha Cox
[2024-09-03 18:03] LABS: ABG PCO2 51.2 mmHg (35-45); Arterial Blood Gas Hematocrit 25.9 % (37-47); Base Excess ABG 5.8 mmol/L (-2.0-2.0); Blood Gas Allen Test Pos; Blood Gas Operator Identificat WALCI; Blood Gas Sample Site Radial, right; Blood Gas Sample Type Arterial; Carboxyhemoglobin 1.4 %THgb (0.4-20.1); HCO3 ABG 31.5 mmol/L (22-26); HGB O2 Sat 94.7 % (95-100); Ionized Calcium Level - ABG 1.2 mmol/L (1.1-1.4); Methemoglobin 1.3 % (0.4-1.5); Oxygen Device NC; Oxygen Saturation ABG 97.4; PO2 ABG 89.1 mmHg (80.0-100.0); Potassium Level - ABG 4.4 mmol/L (3.5-5.0); Total Hemoglobin 8.5 g/dL (12-16)
[2024-09-03] MEDS: FUROsemide 10 mg/mL SDV 10mL 80 MG IVP (18:11)
[2024-09-03 18:38] LABS: Basophils # 0.1 10^3/uL (0.0-0.1); Basophils % 0.5 %; Eosinophils # 0.2 10^3/uL (0.0-0.8); Eosinophils % 1.8 %; Hematocrit 25.4 % (36-47); Lymphocytes # 1.4 10^3/uL (0.8-4.8); Lymphocytes % 13.4 %; Mean Corpuscular HGB Conc 28.7 g/dL (30-55); Mean Corpuscular Hemoglobin 24.1 pg (27-33); Mean Corpuscular Volume 83.8 fl (85-98); Mean Platelet Volume 10.1 fL (7.4-10.4); Monocytes # 0.7 10^3/uL (0.2-0.9); Neutrophils # 7.92 10^3/uL (1.8-7.7); Neutrophils % 76.7 %; Nucleated Red Blood Cells % 0 %; Platelet Count 264 10^3/cmm (157-399); Red Blood Count 3.03 10^6/uL (3.85-5.65); Red Cell Distribution Width 14.3 % (12.1-15.1); White Blood Count 10.32 10^3/uL (3.29-11.43)
[2024-09-03 18:59] LABS: Lactic Sepsis W/Reflex 0.9 mmol/L (0.5-2.2)
[2024-09-03 19:24] LABS: Troponin(5th) Baseline 35 ng/L (0-10)
[2024-09-03 19:25] LABS: Alanine Aminotransferase 13 U/L (0-33); Albumin Level 3.4 g/dL (3.5-5.2); Alkaline Phosphatase 73 U/L (35-105); Aspartate Amino Transferase 18 U/L (0-32); Blood Urea Nitrogen 29 mg/dL (8-23); Calcium 8.6 mg/dL (8.5-10.5); Carbon Dioxide 28 mmol/L (22-29); Chloride 102 mmol/L (98-107); Globulin 2.9 g/dL (1.3-4.6); Glucose 169 mg/dL (65-115); NT Pro B Type Natriuretic Pept 8217 pg/mL (0-125); Osmolality Calculated 302 mOsm/kg (285-295); Sodium 141 mmol/L (136-145); Total Bilirubin 0.2 mg/dL (0.15-1.2); Total Protein 6.3 g/dL (6.6-8.7)
[2024-09-03 19:29] LABS: Anion Gap 15.7 (5-19); Potassium 4.7 mmol/L (3.5-5.1)
--- NOTE | 2024-09-03 19:49 | ECG_ITS ---
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 Measurements Intervals [place] Rate: 77 P: 46 DC: 176 QRS: -49 QRSD: 88 T: 16 QT: 403 QTc: 457 Interpretive Statements SINUS RHYTHM LOW QRS VOLTAGE IN PRECORDIAL LEADS [QRS DEFLECTION < 1.0 mV IN CHEST LEADS] INFERIOR MYOCARDIAL INFARCTION , PROBABLY OLD [40+ ms Q WAVE AND/OR ST/T ABNORMALITY IN II/aVF] ANTEROSEPTAL MYOCARDIAL INFARCTION , OF INDETERMINATE AGE [40+ ms Q WAVE IN V1-V4] Compared to ECG 09/03/2024 17:44:11 Left anterior fascicular block no longer present Myocardial infarct finding still present Electronically Signed On 09-04-2024 06:24:08 CDT by Mckinley Stark M.D. [email or web address]
[2024-09-03 21:10] LABS: Troponin 5 2HR 38.76 ng/L (0-10); Troponin 5 2HR Delta 3.76 ABS# (0-10)
[2024-09-03] MEDS: cefTRIAXone 1,000 mg SDV 1000 MG IVP (21:16)
[2024-09-03] MEDS: AZITHROMYCIN ADD-Vantage 500 MG in 0.9% NaCl ADD-Vantage 250 ML 250 MG IV (21:18)
--- NOTE | 2024-09-03 22:58 | ECG_ITS ---
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 Measurements Intervals [place] Rate: 74 P: 47 TX: 179 QRS: -48 QRSD: 96 T: 66 QT: 410 QTc: 458 Interpretive Statements SINUS RHYTHM INFERIOR MYOCARDIAL INFARCTION , PROBABLY OLD [40+ ms Q WAVE AND/OR ST/T ABNORMALITY IN II/aVF] ANTEROSEPTAL MYOCARDIAL INFARCTION , OF INDETERMINATE AGE [40+ ms Q WAVE IN V1-V4] Compared to ECG 09/03/2024 19:49:01 No significant changes Electronically Signed On 09-04-2024 05:57:29 CDT by Mckinley Stark M.D. [id number]
[2024-09-03] MEDS: nitroglycerin 0.4 mg sublingual Tablet SUBLINGUAL ×2 (23:15→23:20)
[2024-09-04] VITALS (16 sets, daily range): BP systolic 122–155; BP diastolic 56–77; PULSE 65–83; RESP 16–30; TEMP 36.4–36.7; O2SAT 95–100
[2024-09-04 00:04] LABS: Troponin 5 6HR 36.96 ng/L (0-10); Troponin 5 6HR Delta 1.96 ng/L (0-12)
[2024-09-04] MEDS: LORazepam 1 MG/0.5 ML injection 0.5 MG IVP (04:18)
--- NOTE | 2024-09-04 04:20 | PC.NURSE ---
contacted MD about patient having chest pain, MD ordered 0.4mg sublingual nitro Q5min prn, orders enter and given per MAY contacted MD about patient having high anxiety episode, MD order 0.5mg IVP ativan once, orders entered and given per MAY
--- NOTE | 2024-09-04 05:12 | PM.HP ---
Providers/Chief Complaint Admitting Physician: Nedra Ron MD--- patient seen before 12 midnight Primary Care Provider: Mat Chirinos DO Chief Complaint: SOB, CP History of Present Illness Lady López is a 74 year old female, a shelter resident who presented to the emergency room with complaints of shortness of breath over the past few days. Her hemoglobin has been trending down baseline 8-9 hemoglobin today at presentation patient hemoglobin was 7.3. In the setting of CHF and symptomatology patient was given 1 unit of packed red blood cell in the emergency room for further optimization of care. Chest x-ray were significant for volume overload. Patient received 80 mg of IV Lasix in the emergency room. There was also a right lower lobe infiltrate patient was pancultured and received vancomycin and ceftriaxone in the emergency room patient was encouraged to use the BiPAP but does not want to she is very anxious however she is doing well with a 3 L nasal cannula pulse oxing at 98% doing better than at presentation. Patient is being treated for CHF exacerbation hypoxic hypercapnic respiratory failure, right lower lobe pneumonia and bilateral pleural effusion and worsening anemia. Review of Systems Narrative: System review upon 10 organ review is significant for generalized weakness cardiopulmonary failure Medications/Allergies Home Medications ?Medication ?Instructions ?Recorded ?Confirmed ?Last Taken ?Type acetaminophen 500 mg capsule 1,000 mg PO Q8H PRN Pain 02/01/23 09/04/24 08/29/24 02:21 History apixaban 5 mg tablet (Eliquis) 5 mg PO BID #90 tabs 03/15/23 09/04/24 09/03/24 08:00 Rx dapagliflozin propanediol 10 mg 10 mg PO DAILY #30 tabs 01/20/24 09/04/24 09/03/24 Rx tablet (Farxiga) hydralazine 25 mg tablet 25 mg PO TID #90 tabs 01/20/24 09/04/24 09/03/24 11:00 Rx clopidogrel 75 mg tablet 75 mg PO DAILY 06/07/24 09/04/24 09/03/24 History ondansetron HCl 4 mg tablet 4 mg PO Q6H PRN Nausea And Vomiting 06/07/24 09/04/24 08/30/24 03:23 History polyethylene glycol 3350 17 17 g PO DAILY 06/07/24 09/04/24 09/03/24 History gram/dose oral powder tiotropium bromide 2.5 2 puff inhalation DAILY 06/07/24 09/04/24 09/03/24 History mcg/actuation mist for inhalation (Spiriva Respimat) calcium carbonate (Calcium Antacid) 200 mg PO BID PRN Indigestion 07/09/24 09/04/24 09/03/24 History rosuvastatin 20 mg tablet 20 mg PO DAILY 07/09/24 09/04/24 09/03/24 History albuterol sulfate 90 mcg/actuation 2 inh inhalation Q4H PRN shortness 09/04/24 09/04/24 08/28/24 11:25 History aerosol inhaler of breath or wheezing bumetanide 2 mg tablet 0.5 mg PO DAILY 09/04/24 09/04/24 09/03/24 History buspirone 7.5 mg tablet 7.5 mg PO BID 09/04/24 09/04/24 08/29/24 08:00 History calcium 500 mg (as 1 tab PO DAILY 09/04/24 09/04/24 09/01/24 09:00 History carbonate)-vitamin D3 5 mcg (200 unit) tablet docusate sodium 100 mg tablet 100 mg PO BID 09/04/24 09/04/24 08/31/24 19:00 History magnesium 200 mg tablet 200 mg PO BEDTIME 09/04/24 09/04/24 09/02/24 History metformin 1,000 mg tablet 1,000 mg PO BIDWMEAL 09/04/24 09/04/24 08/31/24 19:00 History metoprolol succinate 25 mg 25 mg PO DAILY 09/04/24 09/04/24 09/03/24 History tablet,extended release 24 hr pantoprazole 40 mg tablet,delayed 40 mg PO DAILY 09/04/24 09/04/24 09/03/24 History release quetiapine 50 mg tablet (Seroquel) 50 mg PO BEDTIME 09/04/24 09/04/24 09/03/24 History ropinirole 1 mg tablet 1 mg PO BEDTIME 09/04/24 09/04/24 09/02/24 History spironolactone 25 mg tablet 50 mg PO DAILY 09/04/24 09/04/24 09/03/24 History sucralfate 1 gram tablet 1 g PO DAILY@1700 06/19/25 06/19/25 06/18/25 History tramadol 37.5 mg-acetaminophen 325 1 tab PO BID PRN Pain 09/04/24 09/04/24 09/01/24 09:00 History mg tablet umeclidinium 62.5 mcg-vilanterol 1 inh inhalation DAILY 09/04/24 09/04/24 09/03/24 History 25 mcg/actuation powdr for inhalation (Anoro Ellipta) Allergies Allergy/AdvReac Type Severity Reaction Status Date / Time codeine Allergy Unknown ADR-Diarrhe Verified 07/29/24 22:55 a tetanus and diphtheria Allergy Unknown Unknown Verified 07/29/24 22:55 toxoids atorvastatin Allergy ADR-Faintin Verified 07/29/24 22:55 g PFSH Acute PFSH: Medical History Non-ST elevation (NSTEMI) myocardial infarction Fracture of left hip requiring operative repair Atherosclerosis of coronary artery Fracture, intertrochanteric, left femur Left radial head fracture Open fracture of distal ends of both radius and ulna Hearing loss Gastroparesis Orthostasis Supplemental oxygen dependent Failure to thrive in adult Hyperglycemia Anemia Hyponatremia Nausea & vomiting Dilation of pulmonary artery GERD (gastroesophageal reflux disease) Restless leg syndrome Presence of stent in coronary artery in patient with coronary artery disease Heart failure with preserved ejection fraction Altered mental status Diabetes CHF (congestive heart failure) Hyperlipidemia Pulmonary embolism DKA (diabetic ketoacidosis) Hypertensive urgency DM type 2 (diabetes mellitus, type 2) Arthritis Asthma HTN (hypertension) Small bowel mass Surgical History S/P ORIF (open reduction internal fixation) fracture Hx of cholecystectomy Family History Other Cancer Stroke Social History Smoking and tobacco/nicotine status: never used tobacco/nicotine Alcohol intake: never Substance/Drug Use: never Lives independently: Yes Household members: none Marital status: / Vitals/I&O/Wt Last Vital Signs Temp 98.1 F 09/04/24 00:46 Pulse 72 09/04/24 03:55 Resp 21 H 09/04/24 03:55 BP 146/70 09/04/24 03:55 Pulse Ox 100 09/04/24 03:55 O2 Del Method BiPAP 09/04/24 03:55 O2 Flow Rate 3 09/03/24 17:42 FiO2 30 09/03/24 23:50 09/03/24 09/03/24 09/04/24 14:59 22:59 06:59 Intake Total 0 / 0 650 / 650 Balance 0 / 0 650 / 650 Weight last 48 hrs Weight 97.023 kg Weight 97.023 kg Weight 99.79 kg Physical Exam Narrative: Patient is in no apparent distress. Quite anxious. Patient lies supine receiving blood as again entrance into the room. Patient is receiving 1 pack RBC for hemoglobin of 7.3 in the setting of heart failure and shortness of breath. HEENT normocephalic/atraumatic neck neck is supple cardiovascular heart rate is regular lungs are pretty much with coarse breath sounds. Diminished breath sounds Abdomen is soft nontender nondistended unremarkable extremities are intact no edema has good pulses neurology he has no focality lab studies lab studies reviewed and noted Data 09/04/24 05:02 09/04/24 05:02 Micro: Microbiology 09/03/24 18:24 Blood Culture - Preliminary Blood SPECIMEN COLLECTED 09/03/24 18:23 Blood Culture - Preliminary Blood SPECIMEN COLLECTED A&P Assessment and plan (1) Acute exacerbation of congestive heart failure: Patient is in overt heart failure - Lasix IV 80 mg given in the emergency room. - This is followed by scheduled Lasix at 40 mg IV twice daily - Anemia of 7.3 that has been trending down was optimized with 1 pack RBC - Patient refused to wear BiPAP that was brought for her optimize heart care. - Will add spironolactone 25 mg orally daily - Daily weight - Strict I and O's - Metolazone 5 mg once daily (2) Chest pain: Shortness of breath associated with chest pain with elevated troponin significant for NSTEMI - In the setting of anemia must be careful that this is not a GI source anemia and be aware of anticoagulant antiplatelets - 2 occult blood testing continue to monitor (3) Anemia: Occult blood testing of the stool - Monitor hemoglobin and optimize accordingly (4) Acute hypoxemic respiratory failure: (5) DM type 2 (diabetes mellitus, type 2): Keep patient euglycemic Follow through with low protocol Accu-Cheks AC and at bedtime and at bedtime and monitor Plan GI DVT prophylaxis in place PDMP PDMP Reviewed: Not Reviewed Attestations Medical Necessity Statement*: Patient is on overt heart failure and NSTEMI deserves an at least a minimum of 2 midnights for inpatient stay Coding Level of Care Code 58082 Diagnoses Acute exacerbation of congestive heart failure I50.9 Chest pain R07.9 Anemia D64.9 Acute hypoxemic respiratory failure J96.01 DM type 2 (diabetes mellitus, type 2) E11.9 Time Spent (min) 60
[2024-09-04 05:24] LABS: Basophils % 0.5 %; Eosinophils # 0.2 10^3/uL (0.0-0.8); Eosinophils % 2.1 %; Hematocrit 29.8 % (36-47); Lymphocytes # 1.3 10^3/uL (0.8-4.8); Lymphocytes % 15.9 %; Mean Corpuscular HGB Conc 29.5 g/dL (30-55); Mean Corpuscular Hemoglobin 24.4 pg (27-33); Mean Corpuscular Volume 82.5 fl (85-98); Mean Platelet Volume 10.5 fL (7.4-10.4); Monocytes # 0.6 10^3/uL (0.2-0.9); Neutrophils # 6.03 10^3/uL (1.8-7.7); Neutrophils % 74.1 %; Nucleated Red Blood Cells % 0 %; Platelet Count 235 10^3/cmm (157-399); Red Blood Count 3.61 10^6/uL (3.85-5.65); Red Cell Distribution Width 14.3 % (12.1-15.1); White Blood Count 8.13 10^3/uL (3.29-11.43)
[2024-09-04 05:37] LABS: Alanine Aminotransferase 12 U/L (0-33); Albumin Level 3.3 g/dL (3.5-5.2); Alkaline Phosphatase 77 U/L (35-105); Blood Urea Nitrogen 28 mg/dL (8-23); Calcium 8.8 mg/dL (8.5-10.5); Carbon Dioxide 33 mmol/L (22-29); Chloride 102 mmol/L (98-107); Globulin 3.1 g/dL (1.3-4.6); Glucose 148 mg/dL (65-115); Osmolality Calculated 304 mOsm/kg (285-295); Phosphorus 3.8 mg/dL (2.5-4.5); Sodium 143 mmol/L (136-145); Total Bilirubin 0.3 mg/dL (0.15-1.2); Total Protein 6.4 g/dL (6.6-8.7)
[2024-09-04 05:43] LABS: Anion Gap 12.4 (5-19); Aspartate Amino Transferase 16 U/L (0-32); Potassium 4.4 mmol/L (3.5-5.1)
[2024-09-04] MEDS: FUROsemide 10 mg/mL SDV 4mL 40 MG IVP ×2 (05:58→17:59)
[2024-09-04 06:00] LABS: Troponin T (5th) Once 35 ng/L (0-10)
[2024-09-04 06:12] LABS: Glucose Point of Care 158 mg/dL (70-110)
[2024-09-04] MEDS: ondansetron 2 mg/ML SDV 2 mL 4 MG IVP ×2 (09:01→22:39)
[2024-09-04] MEDS: calcium carbonate 500 mg Chew Tablet 200 MG PO ×2 (09:02→21:00)
[2024-09-04] MEDS: spironolactone 25 mg Tablet 50 MG PO (09:42)
[2024-09-04] MEDS: metoprolol succinate ER (24 HR) 25 mg Tablet PO (09:42)
[2024-09-04] MEDS: clopidogrel 75 mg Tablet PO (09:43)
[2024-09-04] MEDS: docusate sodium 100 mg Capsule PO ×2 (09:44→18:01)
[2024-09-04] MEDS: apixaban 5 mg Tablet PO ×2 (09:45→18:01)
[2024-09-04] MEDS: hyDRALAzine 25 mg Tablet PO ×3 (09:45→19:59)
[2024-09-04] MEDS: BuSPIRONE 10 mg Tablet 7.5 MG PO ×2 (09:45→18:00)
[2024-09-04] MEDS: metOLazone 5 MG Tablet PO (09:46)
[2024-09-04] MEDS: pantoprazole DR 40 mg Tablet PO (09:46)
[2024-09-04] MEDS: calcium carb-vit d 500mg-200unit 1 Tablet 1 EACH PO (09:46)
--- NOTE | 2024-09-04 10:12 | ECG_ITS ---
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 Measurements Intervals [place] Rate: 70 P: 47 SD: 173 QRS: -38 QRSD: 106 T: 75 QT: 424 QTc: 458 Interpretive Statements SINUS RHYTHM POSSIBLE ANTERIOR MYOCARDIAL INFARCTION , OF INDETERMINATE AGE [30 ms Q WAVE IN V3/V4, OR R < 0.2 mV IN V4] INFERIOR MYOCARDIAL INFARCTION , PROBABLY OLD [40+ ms Q WAVE AND/OR ST/T ABNORMALITY IN II/aVF] Compared to ECG 09/03/2024 23:06:06 No significant changes Electronically Signed On 09-04-2024 14:00:14 CDT by Taras Cary M.D. [id number] [id number]
[2024-09-04 10:50] LABS: Troponin T (5th) Once 35 ng/L (0-10)
[2024-09-04] MEDS: morphine 4 mg/mL SDV 1 mL 2 MG IVP ×2 (10:53→20:34)
[2024-09-04] MEDS: ipratropium-albuterol 3 mL Neb INHALATION ×3 (11:07→20:47)
[2024-09-04 12:19] LABS: Glucose Point of Care 191 mg/dL (70-110)
[2024-09-04] MEDS: insulin lispro 100 unit/1 mL SUBCUT ×3 (13:14→20:35)
[2024-09-04] MEDS: acetaminophen 325 mg Tablet 650 MG PO (13:57)
--- NOTE | 2024-09-04 14:31 | P.PN_ITS ---
Subjective 2 Subjective: Seen this morning. Patient complains of chest pain. She is on 3 L nasal cannula. Will check troponin EKG. Vitals/I&O/Wt Last Vital Signs Temp 97.8 F 09/04/24 12:00 Pulse 77 09/04/24 12:00 Resp 20 H 09/04/24 12:00 BP 155/73 09/04/24 12:00 Pulse Ox 95 09/04/24 12:00 O2 Del Method Nasal Cannula 09/04/24 12:00 O2 Flow Rate 3 09/04/24 12:00 FiO2 30 09/04/24 11:10 09/03/24 09/04/24 09/04/24 22:59 06:59 14:59 Intake Total 0 / 0 650 / 650 720 / 720 Output Total 150 / 150 Balance 0 / 0 650 / 650 570 / 570 Weight last 48 hrs Weight 97.023 kg Weight 97.023 kg Weight 99.79 kg Physical Exam 2 Narrative: Patient is in no apparent distress. Sitting up on edge of bed stating that she is having chest pain.. HEENT normocephalic/atraumatic neck: neck is supple cardiovascular heart rate is regular lungs are pretty much with coarse breath sounds. Diminished breath sounds Abdomen is soft nontender nondistended unremarkable extremities are intact no edema has good pulses neurology he has no focality lab studies lab studies reviewed and noted Data 09/04/24 05:02 09/04/24 05:02 Micro: Microbiology 09/03/24 18:24 Blood Culture - Preliminary Blood SPECIMEN COLLECTED 09/03/24 18:23 Blood Culture - Preliminary Blood SPECIMEN COLLECTED A&P Assessment and plan (1) Acute exacerbation of congestive heart failure: Patient is in overt heart failure - Lasix IV 80 mg given in the emergency room. - This is followed by scheduled Lasix at 40 mg IV twice daily - Anemia of 7.3 that has been trending down was optimized with 1 pack RBC - Patient refused to wear BiPAP that was brought for her optimize heart care. - Will add spironolactone 25 mg orally daily - Daily weight - Strict I and O's - Metolazone 5 mg once daily (2) Chest pain: Shortness of breath associated with chest pain with elevated troponin significant for NSTEMI - In the setting of anemia must be careful that this is not a GI source anemia and be aware of anticoagulant antiplatelets - 2 occult blood testing continue to monitor (3) Anemia: Occult blood testing of the stool - Monitor hemoglobin and optimize accordingly (4) Acute hypoxemic respiratory failure: (5) DM type 2 (diabetes mellitus, type 2): Keep patient euglycemic Follow through with low protocol Accu-Cheks AC and at bedtime and at bedtime and monitor Plan GI DVT prophylaxis in place 09/04/2024 Check troponin, EKG. Patient appears to be fluid overloaded. Will continue diuresis with Lasix 40 IV twice daily and continue metolazone. I would continue existing treatment as per H&P. Delta troponin at 6 hours 3.76. I would not call this an NSTEMI. Continue Eliquis, BuSpar, Plavix, Lasix hydralazine metolazone, metoprolol succinate Continue Seroquel, spironolactone PDMP PDMP Reviewed: Not Reviewed Attestations 2 Medical Necessity Statement*: Patient is on overt heart failure and NSTEMI deserves an at least a minimum of 2 midnights for inpatient stay Diagnoses Acute exacerbation of congestive heart failure I50.9 Chest pain R07.9 Anemia D64.9 Acute hypoxemic respiratory failure J96.01 DM type 2 (diabetes mellitus, type 2) E11.9
[2024-09-04 17:43] LABS: Glucose Point of Care 266 mg/dL (70-110)
[2024-09-04] MEDS: ALPRAZolam 0.5 mg Tablet 0.25 MG PO (18:00)
[2024-09-04] MEDS: sucralfate 1 gm Tablet PO (18:00)
[2024-09-04] MEDS: nitroglycerin 0.4 mg sublingual Tablet SUBLINGUAL ×2 (19:49→19:55)
[2024-09-04] MEDS: quetiapine 25 mg Tablet 50 MG PO (19:58)
[2024-09-04] MEDS: magnesium oxide 400 mg tablet 200 MG PO (19:58)
[2024-09-04] MEDS: ropinirole 1 mg Tablet PO (19:59)
[2024-09-04 20:01] LABS: Glucose Point of Care 232 mg/dL (70-110)
--- NOTE | 2024-09-04 21:28 | ECG_ITS ---
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 Measurements Intervals [place] Rate: 78 P: 41 [place]: 175 QRS: -55 QRSD: 105 T: 7 QT: 429 QTc: 489 Interpretive Statements SINUS RHYTHM POSSIBLE ANTERIOR MYOCARDIAL INFARCTION , PROBABLY OLD [30 ms Q WAVE IN V3/V4, OR R < 0.2 mV IN V4] INFERIOR MYOCARDIAL INFARCTION , PROBABLY RECENT [40+ ms Q WAVE AND/OR ST/T ABNORMALITY IN II/aVF] Compared to ECG 09/04/2024 10:12:37 No significant changes Electronically Signed On 09-07-2024 19:31:40 CDT by Taras Cary M.D. [id number]
[2024-09-04] MEDS: lidocaine 2% viscous 15 ML, aluminum-mag hydrox-simethicon 30 ML, sucralfate oral liq 1 GM PO (22:29)
[2024-09-04 23:41] LABS: Troponin(5th) Baseline 34 ng/L (0-10)
[2024-09-05] VITALS (14 sets, daily range): BP systolic 122–162; BP diastolic 56–85; PULSE 70–84; RESP 18–34; TEMP 36.4–37.4; O2SAT 91–100
[2024-09-05] MEDS: morphine 4 mg/mL SDV 1 mL 2 MG IVP ×3 (00:40→09:03)
[2024-09-05 02:08] LABS: Troponin 5 2HR 33.01 ng/L (0-10)
[2024-09-05 02:13] LABS: Troponin 5 2HR Delta -0.99 ABS# (0-10)
--- NOTE | 2024-09-05 02:27 | ECG_ITS ---
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 Measurements Intervals [place] Rate: 69 P: 41 MD: 164 QRS: -50 QRSD: 101 T: 67 QT: 414 QTc: 445 Interpretive Statements SINUS RHYTHM ANTERIOR MYOCARDIAL INFARCTION , OF INDETERMINATE AGE [40+ ms Q WAVE AND/OR ST/T ABNORMALITY IN V3/V4] INFERIOR MYOCARDIAL INFARCTION , PROBABLY OLD [40+ ms Q WAVE AND/OR ST/T ABNORMALITY IN II/aVF] Compared to ECG 09/04/2024 21:28:50 No significant changes Electronically Signed On 09-07-2024 19:41:12 CDT by Taras Cary M.D. [email or web address] [id number]
[2024-09-05] MEDS: FUROsemide 10 mg/mL SDV 4mL 40 MG IVP ×3 (04:21→20:17)
--- NOTE | 2024-09-05 04:51 | ECG_ITS ---
[facility] Date: 2024-09-05 Pat Name: Layd López Department: Room: 112 Gender: Female Miller Kiln Dried Salt: : 1950 Requested By: Nedra Michelle Order Number: [id number] Kelby MD: Taras Cary M.D. Measurements Intervals [place] Rate: 70 P: 48 [place]: 175 QRS: -53 QRSD: 108 T: 75 QT: 404 QTc: 438 Interpretive Statements SINUS RHYTHM POSSIBLE ANTERIOR MYOCARDIAL INFARCTION , OF INDETERMINATE AGE [30 ms Q WAVE IN V3/V4, OR R < 0.2 mV IN V4] INFERIOR MYOCARDIAL INFARCTION , PROBABLY OLD [40+ ms Q WAVE AND/OR ST/T ABNORMALITY IN II/aVF] Compared to ECG 09/05/2024 02:27:25 Left anterior fascicular block now present Myocardial infarct finding still present Electronically Signed On 09-07-2024 19:40:44 CDT by Taras Cary M.D. [email or web address] [email or web address]
[2024-09-05 05:56] LABS: Troponin 5 6HR 32.21 ng/L (0-10)
[2024-09-05 06:02] LABS: Troponin 5 6HR Delta -1.79 ng/L (0-12)
[2024-09-05 06:11] LABS: Glucose Point of Care 209 mg/dL (70-110)
[2024-09-05] MEDS: insulin lispro 100 unit/1 mL SUBCUT ×4 (08:20→22:15)
[2024-09-05] MEDS: polyethylene glycol 3350 Pkt 17 gm PO (08:20)
[2024-09-05] MEDS: apixaban 5 mg Tablet PO ×2 (08:21→17:52)
[2024-09-05] MEDS: metoprolol succinate ER (24 HR) 25 mg Tablet PO (08:22)
[2024-09-05] MEDS: BuSPIRONE 10 mg Tablet 7.5 MG PO ×2 (08:22→17:52)
[2024-09-05] MEDS: hyDRALAzine 25 mg Tablet PO ×3 (08:22→20:17)
[2024-09-05] MEDS: metOLazone 5 MG Tablet PO (08:22)
[2024-09-05] MEDS: pantoprazole DR 40 mg Tablet PO (08:22)
[2024-09-05] MEDS: clopidogrel 75 mg Tablet PO (08:22)
[2024-09-05] MEDS: docusate sodium 100 mg Capsule PO ×2 (08:23→17:52)
[2024-09-05] MEDS: calcium carb-vit d 500mg-200unit 1 Tablet 1 EACH PO (08:25)
[2024-09-05 09:04] LABS: Basophils # 0.1 10^3/uL (0.0-0.1); Basophils % 0.6 %; Eosinophils # 0.3 10^3/uL (0.0-0.8); Eosinophils % 3.2 %; Hematocrit 31.9 % (36-47); Lymphocytes # 1.8 10^3/uL (0.8-4.8); Lymphocytes % 22.2 %; Mean Corpuscular HGB Conc 29.8 g/dL (30-55); Mean Corpuscular Hemoglobin 24.4 pg (27-33); Mean Corpuscular Volume 81.8 fl (85-98); Mean Platelet Volume 10.3 fL (7.4-10.4); Monocytes # 0.8 10^3/uL (0.2-0.9); Monocytes % 9.5 %; Neutrophils # 5.23 10^3/uL (1.8-7.7); Neutrophils % 64.3 %; Nucleated Red Blood Cells % 0 %; Platelet Count 229 10^3/cmm (157-399); Red Cell Distribution Width 14.6 % (12.1-15.1); White Blood Count 8.14 10^3/uL (3.29-11.43)
[2024-09-05] MEDS: ipratropium-albuterol 3 mL Neb INHALATION ×4 (09:14→20:51)
[2024-09-05 09:21] LABS: Blood Urea Nitrogen 30 mg/dL (8-23); Calcium 8.9 mg/dL (8.5-10.5); Carbon Dioxide 34 mmol/L (22-29); Chloride 96 mmol/L (98-107); Glucose 190 mg/dL (65-115); Osmolality Calculated 301 mOsm/kg (285-295); Sodium 140 mmol/L (136-145)
[2024-09-05 09:22] LABS: Anion Gap 14.1 (5-19); Potassium 4.1 mmol/L (3.5-5.1)
[2024-09-05 11:11] LABS: Glucose Point of Care 224 mg/dL (70-110)
[2024-09-05] MEDS: cefTRIAXone 1,000 mg SDV 1000 MG IVP (11:12)
[2024-09-05] MEDS: azithromycin 250 mg Tablet 500 MG PO (11:13)
--- NOTE | 2024-09-05 12:05 | P.PN_ITS ---
Subjective 2 Subjective: Seen this morning. Patient continues to complain of chest pain. Chest pain is reproducible to palpation. She has chest wall tenderness. Hemoglobin stable at 9.5. She has chronic anemia Chest x-ray obtained on admission shows marked moderate bilateral pleural effusions cardiomegaly with central vascular engorgement. Repeat chest x-ray from this morning pending. Patient continuously refusing the Mathew catheter. Vitals/I&O/Wt Last Vital Signs Temp 98.1 F 09/05/24 11:52 Pulse 79 09/05/24 11:52 Resp 20 H 09/05/24 11:52 BP 136/71 09/05/24 11:52 Pulse Ox 96 09/05/24 11:52 O2 Del Method Room Air 09/05/24 11:52 O2 Flow Rate 2 09/05/24 11:26 FiO2 30 09/04/24 16:12 09/04/24 09/05/24 09/05/24 22:59 06:59 14:59 Intake Total 170 / 890 100 / 990 120 / 120 Output Total 1600 / 1750 1400 / 3150 Balance -1430 / -860 -1300 / -2160 120 / 120 Weight last 48 hrs Weight 96.298 kg Weight 97.023 kg Weight 97.023 kg Weight 99.79 kg Physical Exam 2 Narrative: Patient awake alert oriented x 3. Clear to auscultation bilaterally. mild crackles at bases chest pain reproducible to palpation Normal S1-S2, Abdomen soft nontender extremeties: trace edema b/l LE Urinary Catheter Management: Mathew: Cath Placed During This Visit: yes Reason for Continuing Indwelling Catheter: Other Urinary Catheter Date of Insertion: 09/04/24 Urinary Catheter Time of Insertion: 19:30 Data 09/05/24 04:29 09/05/24 04:29 Micro: Microbiology 09/03/24 18:24 Blood Culture - Preliminary Blood NEGATIVE TO DATE 09/03/24 18:23 Blood Culture - Preliminary Blood NEGATIVE TO DATE A&P Assessment and plan (1) Acute exacerbation of congestive heart failure: Patient is in overt heart failure - Lasix IV 80 mg given in the emergency room. - This is followed by scheduled Lasix at 40 mg IV twice daily - Anemia of 7.3 that has been trending down was optimized with 1 pack RBC - Patient refused to wear BiPAP that was brought for her optimize heart care. - Will add spironolactone 25 mg orally daily - Daily weight - Strict I and O's - Metolazone 5 mg once daily (2) Chest pain: Shortness of breath associated with chest pain with elevated troponin significant for NSTEMI - In the setting of anemia must be careful that this is not a GI source anemia and be aware of anticoagulant antiplatelets - 2 occult blood testing continue to monitor (3) Anemia: Occult blood testing of the stool - Monitor hemoglobin and optimize accordingly (4) Acute hypoxemic respiratory failure: (5) DM type 2 (diabetes mellitus, type 2): Keep patient euglycemic Follow through with low protocol Accu-Cheks AC and at bedtime and at bedtime and monitor Plan GI DVT prophylaxis in place 09/04/2024 Check troponin, EKG. Patient appears to be fluid overloaded. Will continue diuresis with Lasix 40 IV twice daily and continue metolazone. I would continue existing treatment as per H&P. Delta troponin at 6 hours 3.76. I would not call this an NSTEMI. Continue Eliquis, BuSpar, Plavix, Lasix hydralazine metolazone, metoprolol succinate Continue Seroquel, spironolactone 09/05/2024 Troponin at 6-hour has been negative. EKG does not show acute ischemia. ? We will continue to diurese at this time. I will repeat chest x-ray this morning. Patient may benefit from thoracentesis however she is on Eliquis. We would have to hold for 48 hours. She has a history of PE in the past. Will consult cardiology Check echocardiogram Stress test reviewed from May. Showed medium sized area of prior infarct seen in left circumflex artery and RCA territories. No evidence of ischemia. Repeat chest x-ray today. PDMP PDMP Reviewed: Not Reviewed Attestations 2 Medical Necessity Statement*: Needs continued IV diuresis. Diagnoses Acute exacerbation of congestive heart failure I50.9 Chest pain R07.9 Anemia D64.9 Acute hypoxemic respiratory failure J96.01 DM type 2 (diabetes mellitus, type 2) E11.9
--- NOTE | 2024-09-05 12:06 | USCV_ITS ---
Lady López Age: 74 Gender: F : 1950 Exam Date: 09/05/2024 18:22 Ordering Phys: Diana Estrada MD Technologist: Az Thompson Exam Location: [facility] [place] Indication: chest pain BP: 136 / 71 HR: Rhythm: Sinus Technical Quality: Adequate MEASUREMENTS (Male / Female) Normal Values 2D ECHO LV Diastolic Diameter PLAX 4.4 cm 4.2 - 5.9 / 3.9 - 5.3 cm IVS Diastolic Thickness 1.3 cm 0.6 - 1.0 / 0.6 - 0.9 cm IVS Systolic Thickness 1.6 cm LVPW Diastolic Thickness 1.3 cm 0.6 - 1.0 / 0.6 - 0.9 cm LVPW Systolic Thickness 1.8 cm LVOT Diameter 2.0 cm LV Ejection Fraction 2D Teich 55.2 % LV Ejection Fraction MOD 4C 67.3 % LV Ejection Fraction MOD 2C 70.5 % LV Ejection Fraction 2C AL 71.7 % LA Diameter 4.2 cm LA Sys Volume AL 53.6 cm cubed LA Sys Volume Index AL 25.3 cm cubed/m squared Aorta at Sinotubular Diameter 1.7 cm IVC Diameter 1.8 cm M-MODE LA Ao Ratio MM 2.0 AV Cusp Separation MM 1.3 cm FINDINGS Left Ventricle Normal left ventricular size, systolic function and wall thickness, with no regional wall motion abnormalities. Estimated LVEF normal 60%. Right Ventricle Normal right ventricular size and systolic function. Right Atrium Normal right atrial size. Left Atrium Mildly dilated left atrium Mitral Valve Aortic Valve Tricuspid Valve Pulmonic Valve Pericardium No pericardial effusion. Aorta IVC Normal IVC dimension with >50% respiratory change of the inferior vena cava. CONCLUSIONS Limited echo to assess LV systolic function. Normal left ventricle size, normal LV systolic function. Estimated LVEF 60%. No change of LV systolic function compared to previous echo report (05/2024). Taras Cary MD (Electronically Signed) Final Date: 06 September 2024 13:03 S
--- NOTE | 2024-09-05 12:12 | XR_ITS ---
WS: [id number] Portable AP semiupright chest, 09/05/2024 Clinical Data: pulm edema Comparison: Portable chest, 09/03/2024 Findings: The bilateral pleural opacities remain the same. Atelectasis, pneumonia and effusions may cause this pattern. The pulmonary vascularity is increased. The heart size is obscured by the basilar opacities. The aortic arch shows calcification with tortuosity. No pneumothorax is seen. There are no nodules or masses. There are monitor leads on the chest. XR/XR chest 1V portable [id number] Impression: 1. No change in bibasilar opacities and pulmonary vascular congestion. 2. Probable cardiomegaly and atherosclerosis.
[2024-09-05 17:09] LABS: Glucose Point of Care 227 mg/dL (70-110)
[2024-09-05] MEDS: sucralfate 1 gm Tablet PO (17:52)
--- NOTE | 2024-09-05 18:39 | PM.CONSULT ---
Providers/Reason For Consult Consulting Physician/Specialty*: Internal medicine/Hospital list Reason for Consult*: Chest pain Requesting Physician: Dr. Estrada Attending Physician: Diana Estrada MD Primary Care Provider: Mat Chirinos DO History of Present Illness History of Present Illness Lady López is a 74 year old female with significant comorbidities, who was admitted with symptoms of lower respiratory infection/mild heart failure symptoms with preserved LV systolic function. Patient has been treated appropriately since admission, however since admission she also has been complaining of a chest pain. The chest pain is mainly over her anterior chest wall, almost constant and with the significant element of tenderness on palpation. Pain also get worse with the movement from lying to sitting or from moving [id number] in the bed. She does complain of shortness of air which has been contributed to low hemoglobin, some heart failure symptoms as well as underlying lower respiratory tract infection. Currently patient as usual complain of chest pain with extreme tenderness more so over right side of anterior chest wall. Review of Systems Narrative: Detailed 10 point systemic review revealed ongoing symptoms of shortness of air, lethargy, decreased appetite, intermittent upper abdominal pain as well as ongoing pain with the tenderness over anterior chest wall. Medications/Allergies Home Medications ?Medication ?Instructions ?Recorded ?Confirmed ?Last Taken ?Type acetaminophen 500 mg capsule 1,000 mg PO Q8H PRN Pain 02/01/23 09/04/24 08/29/24 02:21 History apixaban 5 mg tablet (Eliquis) 5 mg PO BID #90 tabs 03/15/23 09/04/24 09/03/24 08:00 Rx dapagliflozin propanediol 10 mg 10 mg PO DAILY #30 tabs 01/20/24 09/04/24 09/03/24 Rx tablet (Farxiga) hydralazine 25 mg tablet 25 mg PO TID #90 tabs 01/20/24 09/04/24 09/03/24 11:00 Rx clopidogrel 75 mg tablet 75 mg PO DAILY 06/07/24 09/04/24 09/03/24 History ondansetron HCl 4 mg tablet 4 mg PO Q6H PRN Nausea And Vomiting 06/07/24 09/04/24 08/30/24 03:23 History polyethylene glycol 3350 17 17 g PO DAILY 06/07/24 09/04/24 09/03/24 History gram/dose oral powder tiotropium bromide 2.5 2 puff inhalation DAILY 06/07/24 09/04/24 09/03/24 History mcg/actuation mist for inhalation (Spiriva Respimat) calcium carbonate (Calcium Antacid) 200 mg PO BID PRN Indigestion 07/09/24 09/04/24 09/03/24 History rosuvastatin 20 mg tablet 20 mg PO DAILY 07/09/24 09/04/24 09/03/24 History albuterol sulfate 90 mcg/actuation 2 inh inhalation Q4H PRN shortness 09/04/24 09/04/24 08/28/24 11:25 History aerosol inhaler of breath or wheezing bumetanide 2 mg tablet 0.5 mg PO DAILY 09/04/24 09/04/24 09/03/24 History buspirone 7.5 mg tablet 7.5 mg PO BID 09/04/24 09/04/24 08/29/24 08:00 History calcium 500 mg (as 1 tab PO DAILY 09/04/24 09/04/24 09/01/24 09:00 History carbonate)-vitamin D3 5 mcg (200 unit) tablet docusate sodium 100 mg tablet 100 mg PO BID 09/04/24 09/04/24 08/31/24 19:00 History magnesium 200 mg tablet 200 mg PO BEDTIME 09/04/24 09/04/24 09/02/24 History metformin 1,000 mg tablet 1,000 mg PO BIDWMEAL 09/04/24 09/04/24 08/31/24 19:00 History metoprolol succinate 25 mg 25 mg PO DAILY 09/04/24 09/04/24 09/03/24 History tablet,extended release 24 hr pantoprazole 40 mg tablet,delayed 40 mg PO DAILY 09/04/24 09/04/24 09/03/24 History release quetiapine 50 mg tablet (Seroquel) 50 mg PO BEDTIME 09/04/24 09/04/24 09/03/24 History ropinirole 1 mg tablet 1 mg PO BEDTIME 09/04/24 09/04/24 09/02/24 History spironolactone 25 mg tablet 50 mg PO DAILY 09/04/24 09/04/24 09/03/24 History sucralfate 1 gram tablet 1 g PO DAILY@1700 06/19/25 06/19/25 06/18/25 History tramadol 37.5 mg-acetaminophen 325 1 tab PO BID PRN Pain 09/04/24 09/04/24 09/01/24 09:00 History mg tablet umeclidinium 62.5 mcg-vilanterol 1 inh inhalation DAILY 09/04/24 09/04/24 09/03/24 History 25 mcg/actuation powdr for inhalation (Anoro Ellipta) Allergies Allergy/AdvReac Type Severity Reaction Status Date / Time codeine Allergy Unknown ADR-Diarrhe Verified 07/29/24 22:55 a tetanus and diphtheria Allergy Unknown Unknown Verified 07/29/24 22:55 toxoids atorvastatin Allergy ADR-Faintin Verified 07/29/24 22:55 g Current Medications Generic Name Dose Route Start Last Admin Trade Name Freq PRN Reason Stop Dose Admin Acetaminophen 650 mg 09/04/24 05:01 09/04/24 13:57 Acetaminophen 325 Mg Tablet PO 650 mg Q6H PRN Administration Mild/Mod Pain Or Temp >/= 101 Albuterol/Ipratropium 3 ml 09/04/24 12:00 09/05/24 17:24 Ipratropium-Albuterol 3 Ml Neb INHALATION 3 ml QID.RESPIRATORY NAHUM Administration Alprazolam 0.25 mg 09/04/24 17:30 09/04/24 18:00 Alprazolam 0.5 Mg Tablet PO 0.25 mg BID PRN Administration ANXIETY Apixaban 5 mg 09/04/24 09:00 09/05/24 17:52 Apixaban 5 Mg Tablet PO 5 mg BID NAHUM Administration Azithromycin 500 mg 09/05/24 10:25 09/05/24 11:13 Azithromycin 250 Mg Tablet PO 500 mg DAILY NAHUM Administration Protocol Buspirone HCl 7.5 mg 09/04/24 09:00 09/05/24 17:52 Buspirone 10 Mg Tablet PO 7.5 mg BID NAHUM Administration Calcium Carbonate 1 each 09/04/24 09:00 09/05/24 08:25 Calcium Carb-Vit D 500mg-200unit 1 Tablet PO 1 each DAILY NAHUM Administration Calcium Carbonate 200 mg 09/04/24 05:04 09/04/24 21:00 Calcium Carbonate 500 Mg Chew Tablet PO 200 mg BID PRN Administration INDIGESTION Ceftriaxone Sodium 1,000 mg 09/05/24 10:30 09/05/24 11:12 Ceftriaxone 1,000 Mg Sdv IVP 1,000 mg Q24H NAHUM Administration Protocol Clopidogrel Bisulfate 75 mg 09/04/24 09:00 09/05/24 08:22 Clopidogrel 75 Mg Tablet PO 75 mg DAILY NAHUM Administration Docusate Sodium 100 mg 09/04/24 09:00 09/05/24 17:52 Docusate Sodium 100 Mg Capsule PO 100 mg BID NAHUM Administration Furosemide 40 mg 09/05/24 13:00 09/05/24 14:00 Furosemide 10 Mg/Ml Sdv 4ml IVP 40 mg Q8H NAHUM Administration Hydralazine HCl 25 mg 09/04/24 09:00 09/05/24 15:11 Hydralazine 25 Mg Tablet PO 25 mg TID NAHUM Administration Insulin Human Lispro 0 unit 09/04/24 08:00 09/05/24 17:51 Insulin Lispro 100 Unit/1 Ml SUBCUT 6 unit WM&BEDTIME NAHUM Administration Protocol Magnesium Oxide 200 mg 09/04/24 21:00 09/04/24 19:58 Magnesium Oxide 400 Mg Tablet PO 200 mg BEDTIME NAHUM Administration Metolazone 5 mg 09/04/24 09:00 09/05/24 08:22 Metolazone 5 Mg Tablet PO 5 mg DAILY [facility] Administration Metoprolol Succinate 25 mg 09/04/24 09:00 09/05/24 08:22 Metoprolol Succinate Er (24 Hr) 25 Mg Tablet PO 25 mg DAILY NAHUM Administration Morphine Sulfate 2 mg 09/04/24 20:19 09/05/24 09:03 Morphine 4 Mg/Ml Sdv 1 Ml IVP 2 mg Q4H PRN Administration SEVERE PAIN Nitroglycerin 0.4 mg 09/03/24 23:02 09/04/24 19:55 Nitroglycerin 0.4 Mg Sublingual Tablet SUBLINGUAL 0.4 mg Q5M PRN Administration CHEST PAIN Ondansetron HCl 4 mg 09/04/24 05:01 09/04/24 22:39 Ondansetron 2 Mg/Ml Sdv 2 Ml IVP 4 mg Q8H PRN Administration vomiting, or N/V if npo Pantoprazole Sodium 40 mg 09/04/24 09:00 09/05/24 08:[address] 40 Mg Tablet PO 40 mg DAILY NAHUM Administration Polyethylene Glycol 17 gm 09/04/24 09:00 09/05/24 08:20 Polyethylene Glycol 3350 Pkt 17 Gm PO 17 gm DAILY NAHUM Administration Quetiapine Fumarate 50 mg 09/04/24 21:00 09/04/24 19:58 Quetiapine 25 Mg Tablet PO 50 mg BEDTIME NAHUM Administration Ropinirole HCl 1 mg 09/04/24 21:00 09/04/24 19:59 Ropinirole 1 Mg Tablet PO 1 mg BEDTIME NAHUM Administration Sucralfate 1 gm 09/04/24 17:00 09/05/24 17:52 Sucralfate 1 Gm Tablet PO 1 gm DAILY@1700 NAHUM Administration PFSH Acute PFSH: Medical History Non-ST elevation (NSTEMI) myocardial infarction Fracture of left hip requiring operative repair Atherosclerosis of coronary artery Fracture, intertrochanteric, left femur Left radial head fracture Open fracture of distal ends of both radius and ulna Hearing loss Gastroparesis Orthostasis Supplemental oxygen dependent Failure to thrive in adult Hyperglycemia Anemia Hyponatremia Nausea & vomiting Dilation of pulmonary artery GERD (gastroesophageal reflux disease) Restless leg syndrome Presence of stent in coronary artery in patient with coronary artery disease Heart failure with preserved ejection fraction Altered mental status Diabetes CHF (congestive heart failure) Hyperlipidemia Pulmonary embolism DKA (diabetic ketoacidosis) Hypertensive urgency DM type 2 (diabetes mellitus, type 2) Arthritis Asthma HTN (hypertension) Small bowel mass Surgical History S/P ORIF (open reduction internal fixation) fracture Hx of cholecystectomy Family History Other Cancer Stroke Social History Smoking and tobacco/nicotine status: never used tobacco/nicotine Alcohol intake: never Substance/Drug Use: never Lives independently: Yes Household members: none Marital status: / Vitals/I&O/Wt Last Vital Signs Temp 97.8 F 09/05/24 16:00 Pulse 70 09/05/24 17:00 Resp 18 09/05/24 17:00 BP 141/69 09/05/24 16:00 Pulse Ox 99 09/05/24 17:00 O2 Del Method Nasal Cannula 09/05/24 17:00 O2 Flow Rate 2 09/05/24 17:00 FiO2 30 09/04/24 16:12 09/05/24 09/05/24 09/05/24 06:59 14:59 22:59 Intake Total 100 / 990 120 / 120 480 / 600 Output Total 1400 / 3150 1250 / 1250 1400 / 2650 Balance -1300 / -2160 -1130 / -1130 -920 / -2050 Weight last 48 hrs Weight 212 lb 4.8 oz Weight 213 lb 14.4 oz Weight 213 lb 14.4 oz Physical Exam Const: OTHER: Patient appears to be in some distress related to a chest pain on movement. HENMT: OTHER: Unremarkable. Eye: OTHER: Normal. Neck/C-Spine: OTHER: Normal Chest: OTHER: Tenderness +++ over anterior chest wall more so over right side. Resp: OTHER: Good air entry bilaterally. Minimal rales at the bases more on the left side. Cardio: OTHER: Normal 1st and 2nd heart sounds. No added sounds. GI: OTHER: Abdomen obese however soft nontender. Bowel sounds audible normal. Extremity: NARRATIVE EXTREMITY EXAM: Trace bilateral lower extremity edema. Neuro: OTHER: Grossly intact and nonfocal Skin: NARRATIVE SKIN EXAM: Skin over peripheries is warm and dry. Urinary Catheter Management: Mathew: Cath Placed During This Visit: yes Reason for Continuing Indwelling Catheter: Accurate Measurement of Urinary Output in Critically Ill Patients Urinary Catheter Date of Insertion: 09/04/24 Urinary Catheter Time of Insertion: 19:30 Data 09/05/24 04:29 09/05/24 04:29 Micro: Microbiology 09/03/24 18:24 Blood Culture - Preliminary Blood NEGATIVE TO DATE 09/03/24 18:23 Blood Culture - Preliminary Blood NEGATIVE TO DATE A&P Assessment and plan (1) Chest pain: 74-year-old female with multiple comorbidities, not complaining of the chest pain. The description of chest pain as well as examination and lab data. all revealed chest pain is noncardiac. Most likely the chest pain is of musculoskeletal origin. Clinically sign symptoms does not suggestive of angina. Currently patient is almost euvolemic. Noted patient is on antiplatelets, clopidogrel as well as on anticoagulation with Eliquis. It appears patient is on Eliquis for possible history of PE, however currently she was significantly anemic on admission requiring blood transfusion. I recommend to review the need of antiplatelets, clopidogrel as well as ongoing requirement of anticoagulation with Eliquis. From cardiac standpoint of view no further workup at this stage. PDMP PDMP Reviewed: Not Reviewed Coding Level of Care Code 90841 Diagnoses Chest pain R07.9 Time Spent (min) 25
[2024-09-05] MEDS: ondansetron 2 mg/ML SDV 2 mL 4 MG IVP (20:16)
[2024-09-05] MEDS: ALPRAZolam 0.5 mg Tablet 0.25 MG PO (20:17)
[2024-09-05] MEDS: magnesium oxide 400 mg tablet 200 MG PO (20:17)
[2024-09-05] MEDS: quetiapine 25 mg Tablet 50 MG PO (20:17)
[2024-09-05] MEDS: ropinirole 1 mg Tablet PO (20:17)
[2024-09-05 20:38] LABS: Glucose Point of Care 308 mg/dL (70-110)
[2024-09-06] VITALS (12 sets, daily range): BP systolic 121–135; BP diastolic 48–66; PULSE 75–88; RESP 17–22; TEMP 36.2–37.3; O2SAT 94–97
[2024-09-06] MEDS: morphine 4 mg/mL SDV 1 mL 2 MG IVP ×3 (01:56→19:03)
[2024-09-06 03:57] LABS: Basophils % 0.2 %; Eosinophils # 0.2 10^3/uL (0.0-0.8); Eosinophils % 2.3 %; Hematocrit 32.4 % (36-47); Lymphocytes # 1.7 10^3/uL (0.8-4.8); Lymphocytes % 20.6 %; Mean Corpuscular HGB Conc 29.3 g/dL (30-55); Mean Corpuscular Hemoglobin 24.5 pg (27-33); Mean Corpuscular Volume 83.5 fl (85-98); Mean Platelet Volume 10.2 fL (7.4-10.4); Monocytes # 0.7 10^3/uL (0.2-0.9); Monocytes % 8.3 %; Neutrophils # 5.73 10^3/uL (1.8-7.7); Neutrophils % 68.4 %; Nucleated Red Blood Cells % 0 %; Platelet Count 199 10^3/cmm (157-399); Red Blood Count 3.88 10^6/uL (3.85-5.65); Red Cell Distribution Width 14.6 % (12.1-15.1); White Blood Count 8.39 10^3/uL (3.29-11.43)
[2024-09-06 04:09] LABS: Anion Gap 12.4 (5-19); Blood Urea Nitrogen 35 mg/dL (8-23); Calcium 9.2 mg/dL (8.5-10.5); Carbon Dioxide 39 mmol/L (22-29); Chloride 91 mmol/L (98-107); Glucose 203 mg/dL (65-115); Osmolality Calculated 300 mOsm/kg (285-295); Potassium 4.4 mmol/L (3.5-5.1); Sodium 138 mmol/L (136-145)
[2024-09-06] MEDS: FUROsemide 10 mg/mL SDV 4mL 40 MG IVP ×2 (04:36→12:21)
[2024-09-06 06:33] LABS: Glucose Point of Care 250 mg/dL (70-110)
[2024-09-06] MEDS: ipratropium-albuterol 3 mL Neb INHALATION ×4 (08:09→19:35)
[2024-09-06] MEDS: insulin lispro 100 unit/1 mL SUBCUT ×4 (08:55→21:13)
[2024-09-06] MEDS: polyethylene glycol 3350 Pkt 17 gm PO (08:55)
[2024-09-06] MEDS: metoprolol succinate ER (24 HR) 25 mg Tablet PO (08:58)
[2024-09-06] MEDS: pantoprazole DR 40 mg Tablet PO (08:58)
[2024-09-06] MEDS: hyDRALAzine 25 mg Tablet PO ×3 (08:58→21:07)
[2024-09-06] MEDS: docusate sodium 100 mg Capsule PO (08:58)
[2024-09-06] MEDS: metOLazone 5 MG Tablet PO (08:58)
[2024-09-06] MEDS: clopidogrel 75 mg Tablet PO (08:58)
[2024-09-06] MEDS: BuSPIRONE 10 mg Tablet 7.5 MG PO ×2 (08:58→17:14)
[2024-09-06] MEDS: apixaban 5 mg Tablet PO (08:58)
[2024-09-06] MEDS: calcium carb-vit d 500mg-200unit 1 Tablet 1 EACH PO (08:58)
[2024-09-06] MEDS: azithromycin 250 mg Tablet 500 MG PO (08:58)
[2024-09-06] MEDS: cefTRIAXone 1,000 mg SDV 1000 MG IVP (10:28)
[2024-09-06] MEDS: ondansetron 2 mg/ML SDV 2 mL 4 MG IVP (10:34)
--- NOTE | 2024-09-06 11:08 | PC.NURSE ---
pt unable to maintain o2 sat on 15 liters high flow.(sats 82-83%)..tr placed pt on hhf at 50 liters/90%.at 1040.dr melvin notified.no new orders received
--- NOTE | 2024-09-06 11:58 | CTR_ITS ---
PROCEDURE INFORMATION: Exam: CT Right Upper Extremity Without Contrast, Shoulder Exam date and time: 09/06/2024 2:05 PM Age: 74 years old Clinical indication: Pain; Shoulder; Right; Additional info: Shoulder pain TECHNIQUE: Imaging protocol: Computed tomography of the right upper extremity without contrast. Exam focused on the shoulder. Radiation optimization: All CT scans at this facility use at least one of these dose optimization techniques: automated exposure control; mA and/or kV adjustment per patient size (includes targeted exams where dose is matched to clinical indication); or iterative reconstruction. COMPARISON: CR XR shoulder RT min 2V* [id number] 06/06/2018 1:47 AM RADIATION DOSE METRICS: Total DLP (mGy-cm): 462.03 FINDINGS: Bones/joints: There is no acute fracture or dislocation. There are severe degenerative changes at the acromioclavicular joint with exuberant osteophytes. Mild degenerative changes of the glenohumeral joint are present. There is a small calcification adjacent to the greater tuberosity of the humerus compatible with calcific tendinopathy/calcium hydroxyapatite deposition. No avascular necrosis of the humeral head. No glenohumeral joint effusion. The visualized ribs are intact. Soft tissues: See Bones/joints finding. Lungs: There is mild ground-glass opacity in the right lung apex compatible with edema or mild pneumonitis. Pleural spaces: There is a large right pleural effusion. CT/CT shoulder RT wo con* [id number] IMPRESSION: 1. No acute bony abnormality. 2. Large right pleural effusion. 3. There is mild ground-glass opacity in the right lung apex compatible with edema or mild pneumonitis.
--- NOTE | 2024-09-06 12:03 | XRR_ITS ---
PROCEDURE INFORMATION: Exam: XR Chest Exam date and time: 09/06/2024 2:01 PM Age: 74 years old Clinical indication: Other: Re-assess pleural effusions TECHNIQUE: Imaging protocol: Radiologic exam of the chest. Views: 1 view. COMPARISON: CR XR chest 1V portable [id number] 09/05/2024 12:38 PM FINDINGS: Lungs: There is opacification of the lung bases bilaterally, similar in appearance compared to the prior study. Pleural spaces: There are persistent moderate-sized bilateral pleural effusions. No pneumothorax. Heart/Mediastinum: Cardiac borders are partially obscured, however the heart appears enlarged. Bones/joints: Intact. There is diffuse osteopenia with degenerative changes involving the thoracic spine. Other findings: None. XR/XR chest 1V portable [id number] IMPRESSION: 1. Bilateral lower lobe pneumonia versus atelectasis with moderate-sized bilateral pleural effusions. Given differences in positioning, findings are not significantly changed since September 05, 2024. 2. Probable cardiomegaly. Cardiac borders are partially obscured.
--- NOTE | 2024-09-06 12:08 | P.PN_ITS ---
Subjective 2 Subjective: seen this am still complains of cp on right side which is Musculoskeletal in origin most likely. it is reproducible to palpation, i question if she fell and had trauma to area? she is a very poor historian. Vitals/I&O/Wt Last Vital Signs Temp 97.1 F L 09/06/24 08:00 Pulse 80 09/06/24 11:47 Resp 17 09/06/24 11:47 BP 121/52 09/06/24 08:00 Pulse Ox 97 09/06/24 11:47 O2 Del Method Nasal Cannula 09/06/24 11:47 O2 Flow Rate 2 09/06/24 11:47 FiO2 30 09/04/24 16:12 09/05/24 09/06/24 09/06/24 22:59 06:59 14:59 Intake Total 480 / 600 600 / 600 Output Total 2100 / 3350 550 / 3900 Balance -1620 / -2750 -550 / -3300 600 / 600 Weight last 48 hrs Weight 96.116 kg Weight 96.298 kg Physical Exam 2 Narrative: Patient awake alert oriented x 3. Clear to auscultation bilaterally. no wheezes, ronchi or crackles chest pain reproducible to palpation Normal S1-S2, Abdomen soft nontender extremeties: trace edema b/l LE Urinary Catheter Management: Mathew: Cath Placed During This Visit: yes Reason for Continuing Indwelling Catheter: Accurate Measurement of Urinary Output in Critically Ill Patients Urinary Catheter Date of Insertion: 09/04/24 Urinary Catheter Time of Insertion: 19:30 Data 09/06/24 01:44 09/06/24 01:44 Micro: Microbiology 09/06/24 02:25 Occult Blood (FIT) - Final Stool - Stool Aspirate A&P Assessment and plan (1) Acute exacerbation of congestive heart failure: Patient is in overt heart failure - Lasix IV 80 mg given in the emergency room. - This is followed by scheduled Lasix at 40 mg IV twice daily - Anemia of 7.3 that has been trending down was optimized with 1 pack RBC - Patient refused to wear BiPAP that was brought for her optimize heart care. - Will add spironolactone 25 mg orally daily - Daily weight - Strict I and O's - Metolazone 5 mg once daily (2) Chest pain: Shortness of breath associated with chest pain with elevated troponin significant for NSTEMI - In the setting of anemia must be careful that this is not a GI source anemia and be aware of anticoagulant antiplatelets - 2 occult blood testing continue to monitor (3) Anemia: Occult blood testing of the stool - Monitor hemoglobin and optimize accordingly (4) Acute hypoxemic respiratory failure: (5) DM type 2 (diabetes mellitus, type 2): Keep patient euglycemic Follow through with low protocol Accu-Cheks AC and at bedtime and at bedtime and monitor Plan GI DVT prophylaxis in place 09/04/2024 Check troponin, EKG. Patient appears to be fluid overloaded. Will continue diuresis with Lasix 40 IV twice daily and continue metolazone. I would continue existing treatment as per H&P. Delta troponin at 6 hours 3.76. I would not call this an NSTEMI. Continue Eliquis, BuSpar, Plavix, Lasix hydralazine metolazone, metoprolol succinate Continue Seroquel, spironolactone 09/05/2024 Troponin at 6-hour has been negative. EKG does not show acute ischemia. ? We will continue to diurese at this time. I will repeat chest x-ray this morning. Patient may benefit from thoracentesis however she is on Eliquis. We would have to hold for 48 hours. She has a history of PE in the past. Will consult cardiology Check echocardiogram Stress test reviewed from May. Showed medium sized area of prior infarct seen in left circumflex artery and RCA territories. No evidence of ischemia. Repeat chest x-ray today. 09/06/2024 she has adequately diuresed at this time. I will hold off on further Lasix. Still complains of right-sided chest pain has chest wall tenderness. I query if there was a trauma or fall prior to hospital admission. She has had wrist fractures in the past. We will check CT shoulder. Patient is a very poor historian. Other than telling me that her chest hurts does not really elaborate regarding the pain. Pain is also elicited by range of motion at the right shoulder. Hemoglobin has been stable however has chronic anemia. We will reassess for chest x-ray today. If pleural effusions have not reduced in size may consider holding Eliquis next 48 hours for anticipated thoracentesis on Sunday. Echocardiogram reviewed. No wall motion abnormalities. I will add hydrocodone 5 3 times daily as needed for chest wall pain. Her clinical symptoms are not consistent with pericarditis. Pain could be secondary to musculoskeletal which is likely the cause at this time based on my assessment. PDMP PDMP Reviewed: Not Reviewed Attestations 2 Medical Necessity Statement*: Continues to complain of chest wall tenderness. Will need further workup. If continues to do well may discharge back to nursing facility by Sunday. We will assess fluid status. Diagnoses Acute exacerbation of congestive heart failure I50.9 Chest pain R07.9 Anemia D64.9 Acute hypoxemic respiratory failure J96.01 DM type 2 (diabetes mellitus, type 2) E11.9
--- NOTE | 2024-09-06 12:09 | CTR_ITS ---
PROCEDURE INFORMATION: Exam: CT Chest Without Contrast; Diagnostic Exam date and time: 09/06/2024 2:02 PM Age: 74 years old Clinical indication: Chest wall pain; Additional info: Assess for rib fractures TECHNIQUE: Imaging protocol: Diagnostic computed tomography of the chest without contrast. Radiation optimization: All CT scans at this facility use at least one of these dose optimization techniques: automated exposure control; mA and/or kV adjustment per patient size (includes targeted exams where dose is matched to clinical indication); or iterative reconstruction. COMPARISON: CT angio chest PE protcl [id number] 07/30/2024 2:56 AM RADIATION DOSE METRICS: Total DLP (mGy-cm): 563.58 FINDINGS: Lungs: Nonspecific bibasilar consolidation is present, consistent with atelectasis, edema, or pneumonia. There is also mild diffuse ground-glass opacity in the lungs compatible mild edema versus pneumonitis. There is a 7 mm ground-glass nodule right upper lobe series 3, image 19. There is a 7 x 8 mm spiculated ground-glass nodule versus scar medial left upper lobe image 15. There is a 4 mm nodule medial right upper lobe image 17. There is a 4 mm nodule right upper lobe image 19. There is an 8 mm ground-glass spiculated nodule right middle lobe image 40. There is concern for right hilar mass, adenopathy and/or consolidated lung adjacent to the right hilum. The right hilum is asymmetrically enlarged. There is a 7 mm calcified pulmonary granuloma lateral to the right hilum image 34. Pleural spaces: There is a vacxssba-fu-wrfks sized right pleural effusion and small left pleural effusion. There is no evidence of pneumothorax. Heart: The heart is enlarged. There is a small pericardial fluid collection present. Coronary arteries: There is severe atherosclerotic calcification of the coronary arteries. Lymph nodes: Multiple subcentimeter mediastinal lymph nodes are present. There are also calcified mediastinal and right hilar lymph nodes. Vasculature: Unremarkable. No aortic aneurysm. Bones/joints: There are unchanged old right rib fracture deformities. There is mild chronic appearing anterior wedging of T8 and T11 unchanged compared to the prior exam. No acute fracture. Soft tissues: Unremarkable. CT/CT chest wo con [id number] IMPRESSION: 1. Nonspecific bibasilar consolidation is present, consistent with atelectasis, edema, or pneumonia. Bilateral pleural effusions right greater than left. 2. There is also mild diffuse ground-glass opacity in the lungs compatible mild edema versus pneumonitis. 3. Multiple subcentimeter mediastinal lymph nodes are present. There is concern for right hilar mass, conglomerate adenopathy and/or consolidated lung adjacent to the right hilum. The right hilum is asymmetrically enlarged. 4. Multiple ground-glass pulmonary nodules. Largest measures 8 mm in size.Recommend CT Chest at 3-6 months. Subsequent management based on the most suspicious nodule(s). (Reference: Pratibha) REFERENCES: Pratibha Dennison, et al. Guidelines for Management of Incidental Pulmonary Nodules Detected on CT Images: From the Fleischner Society 2017. Radiology. 2017;284(1):228-243.
[2024-09-06 12:15] LABS: Glucose Point of Care 249 mg/dL (70-110)
[2024-09-06] MEDS: HYDROcodone-acetaminophen 5-325 mg Tablet 1 TAB PO (15:32)
[2024-09-06 16:48] LABS: Glucose Point of Care 237 mg/dL (70-110)
[2024-09-06] MEDS: sucralfate 1 gm Tablet PO (17:14)
[2024-09-06 20:18] LABS: Glucose Point of Care 233 mg/dL (70-110)
[2024-09-06] MEDS: ropinirole 1 mg Tablet PO (21:07)
[2024-09-06] MEDS: quetiapine 25 mg Tablet 50 MG PO (21:07)
[2024-09-06] MEDS: magnesium oxide 400 mg tablet 200 MG PO (21:08)
[2024-09-06] MEDS: ALPRAZolam 0.5 mg Tablet 0.25 MG PO (21:17)
[2024-09-07] VITALS (9 sets, daily range): BP systolic 101–150; BP diastolic 51–66; PULSE 80–90; RESP 16–20; TEMP 36.1–37; O2SAT 95–99
[2024-09-07 04:07] LABS: Basophils # 0.1 10^3/uL (0.0-0.1); Basophils % 0.5 %; Eosinophils # 0.4 10^3/uL (0.0-0.8); Eosinophils % 3.9 %; Hematocrit 33.3 % (36-47); Lymphocytes # 1.5 10^3/uL (0.8-4.8); Lymphocytes % 16.4 %; Mean Corpuscular HGB Conc 28.5 g/dL (30-55); Mean Corpuscular Hemoglobin 23.9 pg (27-33); Mean Corpuscular Volume 83.7 fl (85-98); Mean Platelet Volume 10.3 fL (7.4-10.4); Monocytes # 0.8 10^3/uL (0.2-0.9); Monocytes % 8.4 %; Neutrophils # 6.46 10^3/uL (1.8-7.7); Neutrophils % 70.4 %; Nucleated Red Blood Cells % 0 %; Platelet Count 243 10^3/cmm (157-399); Red Blood Count 3.98 10^6/uL (3.85-5.65); Red Cell Distribution Width 14.6 % (12.1-15.1); White Blood Count 9.19 10^3/uL (3.29-11.43)
[2024-09-07 04:22] LABS: Anion Gap 14.7 (5-19); Blood Urea Nitrogen 45 mg/dL (8-23); Calcium 8.9 mg/dL (8.5-10.5); Carbon Dioxide 38 mmol/L (22-29); Chloride 91 mmol/L (98-107); Glucose 258 mg/dL (65-115); Magnesium 2.1 mg/dL (1.7-2.3); Osmolality Calculated 308 mOsm/kg (285-295); Potassium 4.7 mmol/L (3.5-5.1); Sodium 139 mmol/L (136-145)
[2024-09-07] MEDS: hyDRALAzine 25 mg Tablet PO ×3 (08:02→20:54)
[2024-09-07] MEDS: BuSPIRONE 10 mg Tablet 7.5 MG PO ×2 (08:02→17:12)
[2024-09-07] MEDS: azithromycin 250 mg Tablet 500 MG PO (08:02)
[2024-09-07] MEDS: clopidogrel 75 mg Tablet PO (08:02)
[2024-09-07] MEDS: calcium carb-vit d 500mg-200unit 1 Tablet 1 EACH PO (08:02)
[2024-09-07] MEDS: metoprolol succinate ER (24 HR) 25 mg Tablet PO (08:02)
[2024-09-07] MEDS: insulin lispro 100 unit/1 mL SUBCUT ×4 (08:03→22:43)
[2024-09-07] MEDS: HYDROcodone-acetaminophen 5-325 mg Tablet 1 TAB PO ×2 (08:03→14:56)
[2024-09-07] MEDS: ALPRAZolam 0.5 mg Tablet 0.25 MG PO ×2 (08:05→17:13)
[2024-09-07] MEDS: pantoprazole DR 40 mg Tablet PO (08:09)
[2024-09-07] MEDS: acetaZOLAMIDE 250 mg Tablet 500 MG PO (08:26)
[2024-09-07] MEDS: ipratropium-albuterol 3 mL Neb INHALATION ×3 (08:43→19:56)
[2024-09-07 09:35] LABS: Glucose Point of Care 236 mg/dL (70-110)
--- NOTE | 2024-09-07 11:53 | P.PN_ITS ---
Subjective 2 Subjective: Seen this morning. Finally starting to feel better. Comfortable after hydrocodone being started. Laying in his bed. She took off her nasal cannula and is saturating 88%. Will put nasal cannula back on Eliquis has been held. Plan for thoracentesis tomorrow. She did not complain of chest pain to me today. Vitals/I&O/Wt Last Vital Signs Temp 97.1 F L 09/07/24 08:00 Pulse 88 09/07/24 08:00 Resp 20 H 09/07/24 08:00 BP 101/56 09/07/24 08:00 Pulse Ox 97 09/07/24 08:00 O2 Del Method Nasal Cannula 09/07/24 08:00 O2 Flow Rate 2 09/07/24 08:00 FiO2 30 09/04/24 16:12 09/06/24 09/07/24 09/07/24 22:59 06:59 14:59 Intake Total 480 / 1560 480 / 480 Output Total 1950 / 1950 550 / 2500 Balance -1470 / -390 -550 / -940 480 / 480 Weight last 48 hrs Weight 88.224 kg Weight 96.116 kg Physical Exam 2 Narrative: Patient awake alert oriented x 3. Clear to auscultation bilaterally. no wheezes, ronchi or crackles chest pain reproducible to palpation Normal S1-S2, Abdomen soft nontender extremeties: trace edema b/l LE Urinary Catheter Management: Mathew: Cath Placed During This Visit: yes Reason for Continuing Indwelling Catheter: Acute Urinary Retention or Obstruction Urinary Catheter Date of Insertion: 09/04/24 Urinary Catheter Time of Insertion: 19:30 Data 09/07/24 03:38 09/07/24 03:38 A&P Assessment and plan (1) Acute exacerbation of congestive heart failure: Patient is in overt heart failure - Lasix IV 80 mg given in the emergency room. - This is followed by scheduled Lasix at 40 mg IV twice daily - Anemia of 7.3 that has been trending down was optimized with 1 pack RBC - Patient refused to wear BiPAP that was brought for her optimize heart care. - Will add spironolactone 25 mg orally daily - Daily weight - Strict I and O's - Metolazone 5 mg once daily (2) Chest pain: Shortness of breath associated with chest pain with elevated troponin significant for NSTEMI - In the setting of anemia must be careful that this is not a GI source anemia and be aware of anticoagulant antiplatelets - 2 occult blood testing continue to monitor (3) Anemia: Occult blood testing of the stool - Monitor hemoglobin and optimize accordingly (4) Acute hypoxemic respiratory failure: (5) DM type 2 (diabetes mellitus, type 2): Keep patient euglycemic Follow through with low protocol Accu-Cheks AC and at bedtime and at bedtime and monitor Plan GI DVT prophylaxis in place 09/04/2024 Check troponin, EKG. Patient appears to be fluid overloaded. Will continue diuresis with Lasix 40 IV twice daily and continue metolazone. I would continue existing treatment as per H&P. Delta troponin at 6 hours 3.76. I would not call this an NSTEMI. Continue Eliquis, BuSpar, Plavix, Lasix hydralazine metolazone, metoprolol succinate Continue Seroquel, spironolactone 09/05/2024 Troponin at 6-hour has been negative. EKG does not show acute ischemia. ? We will continue to diurese at this time. I will repeat chest x-ray this morning. Patient may benefit from thoracentesis however she is on Eliquis. We would have to hold for 48 hours. She has a history of PE in the past. Will consult cardiology Check echocardiogram Stress test reviewed from May. Showed medium sized area of prior infarct seen in left circumflex artery and RCA territories. No evidence of ischemia. Repeat chest x-ray today. 09/06/2024 she has adequately diuresed at this time. I will hold off on further Lasix. Still complains of right-sided chest pain has chest wall tenderness. I query if there was a trauma or fall prior to hospital admission. She has had wrist fractures in the past. We will check CT shoulder. Patient is a very poor historian. Other than telling me that her chest hurts does not really elaborate regarding the pain. Pain is also elicited by range of motion at the right shoulder. Hemoglobin has been stable however has chronic anemia. We will reassess for chest x-ray today. If pleural effusions have not reduced in size may consider holding Eliquis next 48 hours for anticipated thoracentesis on Sunday. Echocardiogram reviewed. No wall motion abnormalities. I will add hydrocodone 5 3 times daily as needed for chest wall pain. Her clinical symptoms are not consistent with pericarditis. Pain could be secondary to musculoskeletal which is likely the cause at this time based on my assessment. 09/07/2024 Hold Lasix at this time. Chest wall tenderness responded to hydrocodone However she has a moderate to large pleural effusion on right side. Eliquis has been held on Sunday. Thoracentesis ordered for morning. She is on 2 L nasal cannula. Patient continues to be a poor historian however was able to tell me she is not having pain today. Overall appears very deconditioned and will benefit from continued physical therapy. PDMP PDMP Reviewed: Not Reviewed Attestations 2 Medical Necessity Statement*: Thoracentesis in AM. Diagnoses Acute exacerbation of congestive heart failure I50.9 Chest pain R07.9 Anemia D64.9 Acute hypoxemic respiratory failure J96.01 DM type 2 (diabetes mellitus, type 2) E11.9
[2024-09-07] MEDS: cefTRIAXone 1,000 mg SDV 1000 MG IVP (11:54)
[2024-09-07 12:12] LABS: Glucose Point of Care 390 mg/dL (70-110)
--- NOTE | 2024-09-07 12:50 | PC.RESP ---
RT busy bagging in ER, treatment not given.
[2024-09-07] MEDS: benzonatate 100 mg Capsule 200 MG PO (17:12)
[2024-09-07] MEDS: sucralfate 1 gm Tablet PO (17:12)
[2024-09-07 17:33] LABS: Basophils # 0.1 10^3/uL (0.0-0.1); Basophils % 0.5 %; Eosinophils # 0.5 10^3/uL (0.0-0.8); Eosinophils % 4.2 %; Hematocrit 33.6 % (36-47); Lymphocytes # 1.2 10^3/uL (0.8-4.8); Lymphocytes % 11.4 %; Mean Corpuscular HGB Conc 29.5 g/dL (30-55); Mean Corpuscular Hemoglobin 24.4 pg (27-33); Mean Platelet Volume 10.3 fL (7.4-10.4); Monocytes # 0.9 10^3/uL (0.2-0.9); Monocytes % 8.6 %; Neutrophils # 7.99 10^3/uL (1.8-7.7); Nucleated Red Blood Cells % 0 %; Platelet Count 245 10^3/cmm (157-399); Red Blood Count 4.05 10^6/uL (3.85-5.65); Red Cell Distribution Width 14.6 % (12.1-15.1); White Blood Count 10.66 10^3/uL (3.29-11.43)
[2024-09-07 17:38] LABS: Glucose Point of Care 409 mg/dL (70-110)
[2024-09-07 17:41] LABS: INR 0.96 (0.8-1.2)
[2024-09-07 20:39] LABS: Glucose Point of Care 278 mg/dL (70-110)
[2024-09-07] MEDS: magnesium oxide 400 mg tablet 200 MG PO (20:53)
[2024-09-07] MEDS: ropinirole 1 mg Tablet PO (20:53)
[2024-09-07] MEDS: quetiapine 25 mg Tablet 50 MG PO (20:54)
[2024-09-08] VITALS (16 sets, daily range): BP systolic 99–143; BP diastolic 48–77; PULSE 70–87; RESP 14–20; TEMP 36.1–37.3; O2SAT 92–96
[2024-09-08] MEDS: benzonatate 100 mg Capsule 200 MG PO ×3 (02:34→17:54)
[2024-09-08] MEDS: HYDROcodone-acetaminophen 5-325 mg Tablet 1 TAB PO (02:34)
[2024-09-08 05:37] LABS: Basophils # 0.1 10^3/uL (0.0-0.1); Basophils % 0.6 %; Eosinophils # 0.4 10^3/uL (0.0-0.8); Eosinophils % 4.9 %; Hematocrit 33.6 % (36-47); Lymphocytes # 1.2 10^3/uL (0.8-4.8); Mean Corpuscular HGB Conc 28.6 g/dL (30-55); Mean Corpuscular Hemoglobin 23.9 pg (27-33); Mean Corpuscular Volume 83.8 fl (85-98); Mean Platelet Volume 10.4 fL (7.4-10.4); Monocytes # 0.6 10^3/uL (0.2-0.9); Monocytes % 7.7 %; Neutrophils # 5.88 10^3/uL (1.8-7.7); Neutrophils % 71.4 %; Nucleated Red Blood Cells % 0 %; Platelet Count 240 10^3/cmm (157-399); Red Blood Count 4.01 10^6/uL (3.85-5.65); Red Cell Distribution Width 14.6 % (12.1-15.1); White Blood Count 8.22 10^3/uL (3.29-11.43)
[2024-09-08 05:52] LABS: Anion Gap 15.6 (5-19); Blood Urea Nitrogen 47 mg/dL (8-23); Calcium 8.8 mg/dL (8.5-10.5); Carbon Dioxide 32 mmol/L (22-29); Chloride 92 mmol/L (98-107); Glucose 268 mg/dL (65-115); Magnesium 2.5 mg/dL (1.7-2.3); Osmolality Calculated 302 mOsm/kg (285-295); Potassium 4.6 mmol/L (3.5-5.1); Sodium 135 mmol/L (136-145)
[2024-09-08 06:29] LABS: Glucose Point of Care 338 mg/dL (70-110)
[2024-09-08] MEDS: ipratropium-albuterol 3 mL Neb INHALATION ×4 (09:05→19:22)
[2024-09-08 09:45] LABS: Glucose Point of Care 294 mg/dL (70-110)
[2024-09-08] MEDS: acetaZOLAMIDE 250 mg Tablet 500 MG PO (09:48)
[2024-09-08] MEDS: metoprolol succinate ER (24 HR) 25 mg Tablet PO (09:48)
[2024-09-08] MEDS: pantoprazole DR 40 mg Tablet PO (09:48)
[2024-09-08] MEDS: clopidogrel 75 mg Tablet PO (09:48)
[2024-09-08] MEDS: BuSPIRONE 10 mg Tablet 7.5 MG PO ×2 (09:48→17:54)
[2024-09-08] MEDS: calcium carb-vit d 500mg-200unit 1 Tablet 1 EACH PO (09:48)
[2024-09-08] MEDS: azithromycin 250 mg Tablet 500 MG PO (09:48)
[2024-09-08] MEDS: docusate sodium 100 mg Capsule PO ×2 (09:49→17:54)
[2024-09-08] MEDS: hyDRALAzine 25 mg Tablet PO ×2 (09:49→15:47)
[2024-09-08] MEDS: insulin lispro 100 unit/1 mL SUBCUT ×4 (09:49→22:38)
[2024-09-08] MEDS: polyethylene glycol 3350 Pkt 17 gm PO (09:54)
[2024-09-08] MEDS: cefTRIAXone 1,000 mg SDV 1000 MG IVP (10:01)
[2024-09-08] MEDS: morphine 4 mg/mL SDV 1 mL 2 MG IVP (10:19)
[2024-09-08 11:28] LABS: Glucose Point of Care 288 mg/dL (70-110)
--- NOTE | 2024-09-08 14:42 | PC.NURSE ---
US notified this nurse that thoracentsis would not be able to be completed due to plavix administration notified provider instructions received to place on hold for thoracentisis
--- NOTE | 2024-09-08 16:20 | ECG_ITS ---
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 Measurements Intervals [place] Rate: 84 P: 29 WI: 175 QRS: -49 QRSD: 106 T: 71 QT: 403 QTc: 478 Interpretive Statements SINUS RHYTHM LEFT ANTERIOR FASCICULAR BLOCK [QRS AXIS <= -45, QR IN I, RS IN II] POSSIBLE ANTERIOR MYOCARDIAL INFARCTION , OF INDETERMINATE AGE [30 ms Q WAVE IN V3/V4, OR R < 0.2 mV IN V4] INFERIOR MYOCARDIAL INFARCTION , PROBABLY OLD [40+ ms Q WAVE AND/OR ST/T ABNORMALITY IN II/aVF] Compared to ECG 09/05/2024 04:51:59 Left anterior fascicular block now present Myocardial infarct finding still present Electronically Signed On 09-09-2024 17:21:01 CDT by Bryan Posadas M.D. [email or web address]
--- NOTE | 2024-09-08 16:25 | PM.PN ---
Subjective Subjective: Chart reviewed. Patient was noted to be somnolent this morning. Wakes up to tell me her name and the fact that she is in the hospital but does not extend conversation beyond this. Medications: Reviewed: Yes Vitals/I&O/Wt Last Vital Signs Temp 97.3 F L 09/08/24 11:28 Pulse 80 09/08/24 15:12 Resp 20 H 09/08/24 15:05 BP 112/57 09/08/24 11:28 Pulse Ox 95 09/08/24 15:05 O2 Del Method Nasal Cannula 09/08/24 15:05 O2 Flow Rate 2 09/08/24 15:05 FiO2 30 09/07/24 17:00 09/08/24 09/08/24 09/08/24 06:59 14:59 22:59 Intake Total 600 / 600 Output Total 650 / 1600 Balance -650 / -520 600 / 600 Weight last 48 hrs Weight 92.805 kg Weight 92.805 kg Weight 88.224 kg Physical Exam Narrative: General: Chronically ill-appearing, AO x2 HEENT: PERRLA, pupils bilaterally equal and reactive, pallors not present Chest: Normal vesicular breath sounds, no added sounds, equal good air entry bilaterally CVS: S1-S2 regular, no murmurs, no tachycardia, no gallops, no rubs Abdomen: Soft, nontender, no organomegaly, bowel sounds present Urinary Catheter Management: Mathew: Cath Placed During This Visit: yes Reason for Continuing Indwelling Catheter: Acute Urinary Retention or Obstruction Urinary Catheter Date of Insertion: 09/04/24 Urinary Catheter Time of Insertion: 19:30 Data 09/08/24 05:02 09/08/24 05:02 A&P Assessment and plan (1) Acute exacerbation of congestive heart failure: Patient is in overt heart failure - Lasix IV 80 mg given in the emergency room. - This is followed by scheduled Lasix at 40 mg IV twice daily - Anemia of 7.3 that has been trending down was optimized with 1 pack RBC - Patient refused to wear BiPAP that was brought for her optimize heart care. - Will add spironolactone 25 mg orally daily - Daily weight - Strict I and O's - Metolazone 5 mg once daily (2) Chest pain: Shortness of breath associated with chest pain with elevated troponin significant for NSTEMI - In the setting of anemia must be careful that this is not a GI source anemia and be aware of anticoagulant antiplatelets - 2 occult blood testing continue to monitor (3) Anemia: Occult blood testing of the stool - Monitor hemoglobin and optimize accordingly (4) Acute hypoxemic respiratory failure: (5) DM type 2 (diabetes mellitus, type 2): Keep patient euglycemic Follow through with low protocol Accu-Cheks AC and at bedtime and at bedtime and monitor Plan GI DVT prophylaxis in place 09/04/2024 Check troponin, EKG. Patient appears to be fluid overloaded. Will continue diuresis with Lasix 40 IV twice daily and continue metolazone. I would continue existing treatment as per H&P. Delta troponin at 6 hours 3.76. I would not call this an NSTEMI. Continue Eliquis, BuSpar, Plavix, Lasix hydralazine metolazone, metoprolol succinate Continue Seroquel, spironolactone 09/05/2024 Troponin at 6-hour has been negative. EKG does not show acute ischemia. ? We will continue to diurese at this time. I will repeat chest x-ray this morning. Patient may benefit from thoracentesis however she is on Eliquis. We would have to hold for 48 hours. She has a history of PE in the past. Will consult cardiology Check echocardiogram Stress test reviewed from May. Showed medium sized area of prior infarct seen in left circumflex artery and RCA territories. No evidence of ischemia. Repeat chest x-ray today. 09/06/2024 she has adequately diuresed at this time. I will hold off on further Lasix. Still complains of right-sided chest pain has chest wall tenderness. I query if there was a trauma or fall prior to hospital admission. She has had wrist fractures in the past. We will check CT shoulder. Patient is a very poor historian. Other than telling me that her chest hurts does not really elaborate regarding the pain. Pain is also elicited by range of motion at the right shoulder. Hemoglobin has been stable however has chronic anemia. We will reassess for chest x-ray today. If pleural effusions have not reduced in size may consider holding Eliquis next 48 hours for anticipated thoracentesis on Sunday. Echocardiogram reviewed. No wall motion abnormalities. I will add hydrocodone 5 3 times daily as needed for chest wall pain. Her clinical symptoms are not consistent with pericarditis. Pain could be secondary to musculoskeletal which is likely the cause at this time based on my assessment. 09/07/2024 Hold Lasix at this time. Chest wall tenderness responded to hydrocodone However she has a moderate to large pleural effusion on right side. Eliquis has been held on Sunday. Thoracentesis ordered for morning. She is on 2 L nasal cannula. Patient continues to be a poor historian however was able to tell me she is not having pain today. Overall appears very deconditioned and will benefit from continued physical therapy. September 08, 2024 73-year-old female with a past medical history of hypertension, PE chronically on Eliquis, COPD, diastolic heart failure, CAD, who was admitted to the hospital on September 04, 2024 after presenting with increasing shortness of breath and chest pain. ABG upon admission showed a pH of 7.4, PCO2 of 51.2, PO2 of 89.1, bicarb of 31.5, correlating with her history of chronic hypercapnic respiratory failure.Troponin series was unremarkable with a baseline troponin at 34, downtrending at 33 and 32 at [address] chest was performed on September 06, 2024 that showed nonspecific bibasilar consolidation consistent with atelectasis versus edema. She was noted to have bilateral pleural effusions right greater than left. Note was made of a right hilar mass conglomerate adenopathy and consolidated lung next to the right hilum which was asymmetrically enlarged. Patient was planned for right-sided thoracentesis today, however she is remaining on Plavix and radiology reports Plavix would need to be held for at least 3 days prior to undergoing the procedure. Her Eliquis was previously placed on hold anticipating the procedure today. Other significant comorbidities on this admission include worsening anemia. On admission her hemoglobin was at 7.3. In reviewing prior numbers it appears her baseline is between 8.1-10.1. Fecal occult blood testing from September 06 is positive for occult blood. No gross melena or hematemesis is noted. Review of chart shows patient is also on Plavix as an outpatient due to placement of recent stents. In reviewing cardiology notes it appears the stents were placed in early June, at an outside hospital. records requested from [facility]. Reviewed Dr. Ny's note from July 09, 2024 which notes that 2 stents were placed. Given this placement of stents approximately 3 months ago, we cannot discontinue the Plavix at this time. Will reconsult cardiology for recommendations. Will likely defer thoracentesis for now. On reviewing patient's chart, she was noted to have bilateral mild to moderate pleural effusions on July 30, 2024 as well. May need PET scan for further assessment of the noted right lung mass. Continue ceftriaxone and azithromycin. Respiratory status is currently at baseline. Will trend her hemoglobin in the next 24 hours. If no further drop, will aim to resume Eliquis. If continues with the following trend may need endoscopic evaluation versus consideration for IVC filter. Will aim to maintain diuresis for now. Patient is currently net -5.6 L. Continue Diamox. Check ABG today as she is appearing to be somnolent. to be reassessed with results of ABG. PDMP PDMP Reviewed: Not Reviewed Attestations Medical Necessity Statement*: as above, defer thoracentesis, cannot interrupt Plavix for now, monitor Hb trend Coding Level of Care Code Acute Code for Chg Fwd Diagnoses Acute exacerbation of congestive heart failure I50.9 Chest pain R07.9 Anemia D64.9 Acute hypoxemic respiratory failure J96.01 DM type 2 (diabetes mellitus, type 2) E11.9
[2024-09-08 17:24] LABS: Glucose Point of Care 257 mg/dL (70-110)
[2024-09-08] MEDS: aspirin 81 mg EC Tablet PO (17:54)
[2024-09-08] MEDS: sucralfate 1 gm Tablet PO (17:54)
[2024-09-08 18:01] LABS: ABG PCO2 50.7 mmHg (35-45); ABG PH Result 7.43 (7.35-7.45); Arterial Blood Gas Hematocrit 30.4 % (37-47); Base Excess ABG 8.3 mmol/L (-2.0-2.0); Blood Gas Allen Test Pos; Blood Gas Operator Identificat WALCI; Blood Gas Sample Site Radial, right; Blood Gas Sample Type Arterial; HCO3 ABG 33.7 mmol/L (22-26); Oxygen Device NC; PO2 ABG 83.6 mmHg (80.0-100.0)
[2024-09-08] MEDS: magnesium oxide 400 mg tablet 200 MG PO (21:52)
[2024-09-08] MEDS: ropinirole 1 mg Tablet PO (21:52)
[2024-09-08] MEDS: quetiapine 25 mg Tablet 50 MG PO (21:52)
[2024-09-08 22:14] LABS: Glucose Point of Care 299 mg/dL (70-110)
[2024-09-09] VITALS (12 sets, daily range): BP systolic 113–140; BP diastolic 59–76; PULSE 74–85; RESP 16–21; TEMP 36.4–37.1; O2SAT 92–99
[2024-09-09] MEDS: calcium carbonate 500 mg Chew Tablet 200 MG PO (02:14)
[2024-09-09 02:48] LABS: Basophils # 0.1 10^3/uL (0.0-0.1); Basophils % 0.5 %; Eosinophils # 0.3 10^3/uL (0.0-0.8); Eosinophils % 2.9 %; Lymphocytes # 0.7 10^3/uL (0.8-4.8); Lymphocytes % 6.7 %; Mean Corpuscular HGB Conc 29.1 g/dL (30-55); Mean Corpuscular Volume 82.5 fl (85-98); Mean Platelet Volume 9.6 fL (7.4-10.4); Monocytes # 0.7 10^3/uL (0.2-0.9); Monocytes % 6.2 %; Neutrophils # 8.71 10^3/uL (1.8-7.7); Neutrophils % 83.5 %; Nucleated Red Blood Cells % 0 %; Platelet Count 234 10^3/cmm (157-399); Red Cell Distribution Width 14.7 % (12.1-15.1); White Blood Count 10.43 10^3/uL (3.29-11.43)
[2024-09-09 03:25] LABS: Alanine Aminotransferase 8 U/L (0-33); Albumin Level 3.3 g/dL (3.5-5.2); Alkaline Phosphatase 79 U/L (35-105); Anion Gap 15.7 (5-19); Aspartate Amino Transferase 10 U/L (0-32); Blood Urea Nitrogen 49 mg/dL (8-23); Calcium 9.1 mg/dL (8.5-10.5); Carbon Dioxide 30 mmol/L (22-29); Chloride 92 mmol/L (98-107); Globulin 3.7 g/dL (1.3-4.6); Glucose 272 mg/dL (65-115); Osmolality Calculated 299 mOsm/kg (285-295); Potassium 4.7 mmol/L (3.5-5.1); Sodium 133 mmol/L (136-145); Total Bilirubin 0.2 mg/dL (0.15-1.2)
[2024-09-09] MEDS: benzonatate 100 mg Capsule 200 MG PO ×3 (03:39→15:52)
[2024-09-09 06:26] LABS: Glucose Point of Care 338 mg/dL (70-110)
[2024-09-09 06:26] LABS: Glucose Point of Care 270 mg/dL (70-110)
[2024-09-09 06:46] LABS: Glucose Point of Care 302 mg/dL (70-110)
[2024-09-09] MEDS: ipratropium-albuterol 3 mL Neb INHALATION ×4 (07:50→19:49)
[2024-09-09] MEDS: BuSPIRONE 10 mg Tablet 7.5 MG PO (09:00)
[2024-09-09] MEDS: insulin lispro 100 unit/1 mL SUBCUT ×4 (09:00→21:02)
[2024-09-09] MEDS: acetaZOLAMIDE 250 mg Tablet 500 MG PO (09:00)
[2024-09-09] MEDS: pantoprazole DR 40 mg Tablet PO (09:00)
[2024-09-09] MEDS: docusate sodium 100 mg Capsule PO ×2 (09:00→15:53)
[2024-09-09] MEDS: azithromycin 250 mg Tablet 500 MG PO (09:00)
[2024-09-09] MEDS: metoprolol succinate ER (24 HR) 25 mg Tablet PO (09:00)
[2024-09-09] MEDS: polyethylene glycol 3350 Pkt 17 gm PO (09:00)
[2024-09-09] MEDS: calcium carb-vit d 500mg-200unit 1 Tablet 1 EACH PO (09:00)
[2024-09-09] MEDS: aspirin 81 mg EC Tablet PO (09:00)
[2024-09-09] MEDS: hyDRALAzine 25 mg Tablet PO ×3 (09:00→21:02)
[2024-09-09] MEDS: clopidogrel 75 mg Tablet PO (09:00)
[2024-09-09] MEDS: cefTRIAXone 1,000 mg SDV 1000 MG IVP (09:02)
[2024-09-09] MEDS: HYDROcodone-acetaminophen 5-325 mg Tablet 1 TAB PO (09:03)
--- NOTE | 2024-09-09 10:03 | PC.NURSE ---
per [facility], patient's baseline is that she does moan often but can openly communicate and is able to wheel herself back and forth to meals. Patient is currently aspirating, Dr Morris notified. Suction set up at bedside.
[2024-09-09 11:30] LABS: Glucose Point of Care 274 mg/dL (70-110)
--- NOTE | 2024-09-09 14:09 | P.PN_ITS ---
Subjective 2 Subjective: Hb stable, patient is lethargic,w akes up to calling name, able to self feed brealfast this morning however very limited in her conversation . She was noted to cough after eating her breakfast this morning. Medications: Reviewed: Yes Vitals/I&O/Wt Last Vital Signs Temp 97.9 F 09/09/24 11:17 Pulse 78 09/09/24 13:02 Resp 20 H 09/09/24 13:02 BP 125/66 09/09/24 11:17 Pulse Ox 97 09/09/24 13:02 O2 Del Method Nasal Cannula 09/09/24 13:02 O2 Flow Rate 2 09/09/24 13:02 FiO2 30 09/07/24 17:00 09/08/24 09/09/24 09/09/24 22:59 06:59 14:59 Intake Total 360 / 960 120 / 120 Output Total 1350 / 1350 350 / 1700 Balance -990 / -390 -350 / -740 120 / 120 Weight last 48 hrs Weight 93.242 kg Weight 92.805 kg Weight 92.805 kg Physical Exam 2 Narrative: General: Somnolent, lethargic, AO x2-3 HEENT: PERRLA, pupils bilaterally equal and reactive, pallors not present Chest: Normal vesicular breath sounds, no added sounds, equal good air entry bilaterally CVS: S1-S2 regular, no murmurs, no tachycardia, no gallops, no rubs Abdomen: Soft, nontender, no organomegaly, bowel sounds present Neuro: somnolent, lethargic, answers simple questions but unable to have extended conversation Urinary Catheter Management: Mathew: Cath Placed During This Visit: yes Reason for Continuing Indwelling Catheter: Acute Urinary Retention or Obstruction Urinary Catheter Date of Insertion: 09/04/24 Urinary Catheter Time of Insertion: 19:30 Data 09/09/24 02:39 09/09/24 02:39 Micro: Microbiology 09/03/24 18:24 Blood Culture - Final Blood NO GROWTH AFTER 5 DAYS 09/03/24 18:23 Blood Culture - Final Blood NO GROWTH AFTER 5 DAYS A&P Assessment and plan (1) Acute exacerbation of congestive heart failure: Patient is in overt heart failure - Lasix IV 80 mg given in the emergency room. - This is followed by scheduled Lasix at 40 mg IV twice daily - Anemia of 7.3 that has been trending down was optimized with 1 pack RBC - Patient refused to wear BiPAP that was brought for her optimize heart care. - Will add spironolactone 25 mg orally daily - Daily weight - Strict I and O's - Metolazone 5 mg once daily (2) Chest pain: Shortness of breath associated with chest pain with elevated troponin significant for NSTEMI - In the setting of anemia must be careful that this is not a GI source anemia and be aware of anticoagulant antiplatelets - 2 occult blood testing continue to monitor (3) Anemia: Occult blood testing of the stool - Monitor hemoglobin and optimize accordingly (4) Acute hypoxemic respiratory failure: (5) DM type 2 (diabetes mellitus, type 2): Keep patient euglycemic Follow through with low protocol Accu-Cheks AC and at bedtime and at bedtime and monitor (6) Encephalopathy: Plan GI DVT prophylaxis in place 09/04/2024 Check troponin, EKG. Patient appears to be fluid overloaded. Will continue diuresis with Lasix 40 IV twice daily and continue metolazone. I would continue existing treatment as per H&P. Delta troponin at 6 hours 3.76. I would not call this an NSTEMI. Continue Eliquis, BuSpar, Plavix, Lasix hydralazine metolazone, metoprolol succinate Continue Seroquel, spironolactone 09/05/2024 Troponin at 6-hour has been negative. EKG does not show acute ischemia. ? We will continue to diurese at this time. I will repeat chest x-ray this morning. Patient may benefit from thoracentesis however she is on Eliquis. We would have to hold for 48 hours. She has a history of PE in the past. Will consult cardiology Check echocardiogram Stress test reviewed from May. Showed medium sized area of prior infarct seen in left circumflex artery and RCA territories. No evidence of ischemia. Repeat chest x-ray today. 09/06/2024 she has adequately diuresed at this time. I will hold off on further Lasix. Still complains of right-sided chest pain has chest wall tenderness. I query if there was a trauma or fall prior to hospital admission. She has had wrist fractures in the past. We will check CT shoulder. Patient is a very poor historian. Other than telling me that her chest hurts does not really elaborate regarding the pain. Pain is also elicited by range of motion at the right shoulder. Hemoglobin has been stable however has chronic anemia. We will reassess for chest x-ray today. If pleural effusions have not reduced in size may consider holding Eliquis next 48 hours for anticipated thoracentesis on Sunday. Echocardiogram reviewed. No wall motion abnormalities. I will add hydrocodone 5 3 times daily as needed for chest wall pain. Her clinical symptoms are not consistent with pericarditis. Pain could be secondary to musculoskeletal which is likely the cause at this time based on my assessment. 09/07/2024 Hold Lasix at this time. Chest wall tenderness responded to hydrocodone However she has a moderate to large pleural effusion on right side. Eliquis has been held on Sunday. Thoracentesis ordered for morning. She is on 2 L nasal cannula. Patient continues to be a poor historian however was able to tell me she is not having pain today. Overall appears very deconditioned and will benefit from continued physical therapy. September 08, 2024 73-year-old female with a past medical history of hypertension, PE chronically on Eliquis, COPD, diastolic heart failure, CAD, who was admitted to the hospital on September 04, 2024 after presenting with increasing shortness of breath and chest pain. ABG upon admission showed a pH of 7.4, PCO2 of 51.2, PO2 of 89.1, bicarb of 31.5, correlating with her history of chronic hypercapnic respiratory failure.Troponin series was unremarkable with a baseline troponin at 34, downtrending at 33 and 32 at 2 [address] chest was performed on September 06, 2024 that showed nonspecific bibasilar consolidation consistent with atelectasis versus edema. She was noted to have bilateral pleural effusions right greater than left. Note was made of a right hilar mass conglomerate adenopathy and consolidated lung next to the right hilum which was asymmetrically enlarged. Patient was planned for right-sided thoracentesis today, however she is remaining on Plavix and radiology reports Plavix would need to be held for at least 3 days prior to undergoing the procedure. Her Eliquis was previously placed on hold anticipating the procedure today. Other significant comorbidities on this admission include worsening anemia. On admission her hemoglobin was at 7.3. In reviewing prior numbers it appears her baseline is between 8.1-10.1. Fecal occult blood testing from September 06 is positive for occult blood. No gross melena or hematemesis is noted. Review of chart shows patient is also on Plavix as an outpatient due to placement of recent stents. In reviewing cardiology notes it appears the stents were placed in early June, at an outside hospital. records requested from [facility]. Reviewed Dr. Ny's note from July 09, 2024 which notes that 2 stents were placed. Given this placement of stents approximately 3 months ago, we cannot discontinue the Plavix at this time. Will reconsult cardiology for recommendations. Will likely defer thoracentesis for now. On reviewing patient's chart, she was noted to have bilateral mild to moderate pleural effusions on July 30, 2024 as well. May need PET scan for further assessment of the noted right lung mass. Continue ceftriaxone and azithromycin. Respiratory status is currently at baseline. Will trend her hemoglobin in the next 24 hours. If no further drop, will aim to resume Eliquis. If continues with the following trend may need endoscopic evaluation versus consideration for IVC filter. Will aim to maintain diuresis for now. Patient is currently net -5.6 L. Continue Diamox. Check ABG today as she is appearing to be somnolent. to be reassessed with results of ABG. September 09, 2024 Patient is somnolent, prefers to sleep. She is able to wake up and answer few simple questions, attempted to self feed this morning however did have some noted coughing raising concern for aspiration. Speech therapy assessment was requested and level 6 diet has been recommended at this time. Attempted to verify baseline status from the care home. [facility] stated that patient at baseline is able to ambulate out of bed to bedside commode with standby assist. She is also able to wheel her own wheelchair to the dining nichole. She typically self feeds and is able to have a meaningful conversation. This appears to be very different from her current admission. Patient is lethargic, drowsy. Wakes up to answer simple questions but does not participate in extended conversation. ABG was checked yesterday morning which did not show any significant hypercapnia. pCO2 is in the 50s which is at patient's baseline. There is compensated respiratory acidosis. Oxygen requirement also at baseline of 2 L/min supplemental O2. At this time she is not showing any signs of overt respiratory distress therefore thoracentesis has been deferred as Plavix cannot be interrupted at this time given recent history of stents. Will obtain CT of the head to assess for any interval CVA. Patient has a history of CVA in the past. Once hemorrhagic stroke ruled out, will aim to resume Eliquis though at a lower dose of 2.5 mg p.o. twice daily given anemia. In reviewing patient's past number baseline hemoglobin appears to be between 8.1-10.1. Patient will likely benefit from outpatient EGD and colonoscopy. No signs of active bleeding at this time. Additionally check TSH and ammonia levels. Hold opiates and Buspar. Resume lasix 40mg po BID. PDMP PDMP Reviewed: Not Reviewed Attestations 2 Medical Necessity Statement*: evaluation for encephalopathy ongoing Coding Level of Care Code Acute Code for Chg Fwd Diagnoses Acute exacerbation of congestive heart failure I50.9 Chest pain R07.9 Anemia D64.9 Acute hypoxemic respiratory failure J96.01 DM type 2 (diabetes mellitus, type 2) E11.9 Encephalopathy G93.40
--- NOTE | 2024-09-09 14:14 | CTR_ITS ---
PROCEDURE INFORMATION: Exam: CT Head Without Contrast Exam date and time: 09/09/2024 3:36 PM Age: 74 years old Clinical indication: Altered mental status/memory loss; Additional info: Lethargy, somnolence TECHNIQUE: Imaging protocol: Computed tomography of the head without contrast. Radiation optimization: All CT scans at this facility use at least one of these dose optimization techniques: automated exposure control; mA and/or kV adjustment per patient size (includes targeted exams where dose is matched to clinical indication); or iterative reconstruction. COMPARISON: CT head wo con* [id number] 06/07/2024 5:59 AM RADIATION DOSE METRICS: Total DLP (mGy-cm): 997.88 FINDINGS: Brain: Severe nonspecific white matter low attenuation which may be related to microvascular ischemic changes. No acute confluent lobar ischemic infarct. No acute intracranial hemorrhage. Cerebral ventricles: The ventricles and sulci are prominent in size compatible with moderate atrophy. Paranasal sinuses: No fluid levels. Mastoid air cells: Small amount of fluid is seen in the inferior right mastoid air cells. Bones: No acute calvarial fracture. Soft tissues: Visualized soft tissues are unremarkable. CT/CT head wo con* [id number] IMPRESSION: No acute intracranial abnormality. If symptoms persist, consider further evaluation with MRI, if there are no contraindications to obtaining a MRI scan.
[2024-09-09] MEDS: sucralfate 1 gm Tablet PO (15:53)
[2024-09-09] MEDS: FUROsemide 40 mg Tablet PO (15:53)
[2024-09-09 16:28] LABS: Ammonia 34 umol/L (11-51)
[2024-09-09 16:42] LABS: T3 Free 1.8 PG/ML (2.0-4.4); Thyroid Stimulating Hormone 3.73 uIU/mL (0.27-4.20)
[2024-09-09 17:00] LABS: Glucose Point of Care 282 mg/dL (70-110)
[2024-09-09 20:31] LABS: Glucose Point of Care 209 mg/dL (70-110)
[2024-09-09] MEDS: quetiapine 25 mg Tablet 50 MG PO (21:02)
[2024-09-09] MEDS: ropinirole 1 mg Tablet PO (21:02)
[2024-09-10] VITALS (11 sets, daily range): BP systolic 104–143; BP diastolic 60–73; PULSE 74–79; RESP 16–19; TEMP 36.1–36.8; O2SAT 94–98
[2024-09-10] MEDS: benzonatate 100 mg Capsule 200 MG PO ×3 (01:55→17:46)
[2024-09-10] MEDS: acetaminophen 325 mg Tablet 650 MG PO ×3 (02:12→17:46)
[2024-09-10 03:54] LABS: Basophils # 0.1 10^3/uL (0.0-0.1); Basophils % 0.6 %; Eosinophils # 0.5 10^3/uL (0.0-0.8); Hematocrit 33.6 % (36-47); Lymphocytes % 10.9 %; Mean Corpuscular HGB Conc 29.2 g/dL (30-55); Mean Corpuscular Hemoglobin 23.9 pg (27-33); Mean Platelet Volume 9.7 fL (7.4-10.4); Monocytes # 0.6 10^3/uL (0.2-0.9); Monocytes % 6.9 %; Neutrophils # 6.88 10^3/uL (1.8-7.7); Neutrophils % 76.4 %; Nucleated Red Blood Cells % 0 %; Platelet Count 238 10^3/cmm (157-399); Red Cell Distribution Width 14.7 % (12.1-15.1)
[2024-09-10 04:16] LABS: Alanine Aminotransferase 10 U/L (0-33); Albumin Level 3.4 g/dL (3.5-5.2); Alkaline Phosphatase 86 U/L (35-105); Anion Gap 15.7 (5-19); Aspartate Amino Transferase 14 U/L (0-32); Blood Urea Nitrogen 55 mg/dL (8-23); Calcium 9.3 mg/dL (8.5-10.5); Carbon Dioxide 30 mmol/L (22-29); Chloride 91 mmol/L (98-107); Globulin 3.8 g/dL (1.3-4.6); Glucose 300 mg/dL (65-115); Osmolality Calculated 300 mOsm/kg (285-295); Potassium 4.7 mmol/L (3.5-5.1); Sodium 132 mmol/L (136-145); Total Bilirubin 0.2 mg/dL (0.15-1.2); Total Protein 7.2 g/dL (6.6-8.7)
[2024-09-10 06:23] LABS: Glucose Point of Care 296 mg/dL (70-110)
[2024-09-10] MEDS: insulin lispro 100 unit/1 mL SUBCUT ×4 (07:00→22:10)
[2024-09-10] MEDS: ipratropium-albuterol 3 mL Neb INHALATION ×4 (07:34→19:54)
[2024-09-10] MEDS: apixaban 5 mg Tablet 2.5 MG PO ×2 (09:20→20:31)
[2024-09-10] MEDS: polyethylene glycol 3350 Pkt 17 gm PO (09:20)
[2024-09-10] MEDS: docusate sodium 100 mg Capsule PO ×2 (09:21→17:46)
[2024-09-10] MEDS: pantoprazole DR 40 mg Tablet PO (09:21)
[2024-09-10] MEDS: hyDRALAzine 25 mg Tablet PO ×3 (09:21→20:31)
[2024-09-10] MEDS: clopidogrel 75 mg Tablet PO (09:21)
[2024-09-10] MEDS: acetaZOLAMIDE 250 mg Tablet 500 MG PO (09:21)
[2024-09-10] MEDS: metoprolol succinate ER (24 HR) 25 mg Tablet PO (09:21)
[2024-09-10] MEDS: cefTRIAXone 1,000 mg SDV 1000 MG IVP (09:22)
[2024-09-10] MEDS: FUROsemide 40 mg Tablet PO ×2 (09:24→17:48)
[2024-09-10 12:21] LABS: Glucose Point of Care 260 mg/dL (70-110)
--- NOTE | 2024-09-10 13:56 | P.PN_ITS ---
Subjective 2 Subjective: All opiates were held yesterday. Patient is slightly more responsive today. She wakes up more easily, will tell me her name. States he is here for generalized weakness. She was noted to be working on a word finding puzzle and has circled several words but not all of them are accurate. She has not yet been out of bed. PT assessment is pending. Medications: Reviewed: Yes Vitals/I&O/Wt Last Vital Signs Temp 97.0 F L 09/10/24 12:00 Pulse 79 09/10/24 12:00 Resp 16 09/10/24 12:00 BP 121/61 09/10/24 12:00 Pulse Ox 97 09/10/24 12:00 O2 Del Method Nasal Cannula 09/10/24 12:00 O2 Flow Rate 3 09/10/24 12:00 FiO2 30 09/07/24 17:00 09/09/24 09/10/24 09/10/24 22:59 06:59 14:59 Intake Total 360 / 720 120 / 840 600 / 600 Output Total 500 / 1250 700 / 1950 Balance -140 / -530 -580 / -1110 600 / 600 Weight last 48 hrs Weight 91.127 kg Weight 93.242 kg Physical Exam 2 Narrative: General: Somnolent, lethargic, AO x 3 HEENT: PERRLA, pupils bilaterally equal and reactive, pallors not present Chest: Normal vesicular breath sounds, no added sounds, equal good air entry bilaterally CVS: S1-S2 regular, no murmurs, no tachycardia, no gallops, no rubs Abdomen: Soft, nontender, no organomegaly, bowel sounds present Neuro: somnolent, lethargic, answers simple questions , appears to be slightly more awake compared to yesterday. Urinary Catheter Management: Mathew: Cath Placed During This Visit: yes Reason for Continuing Indwelling Catheter: Accurate Measurement of Urinary Output in Critically Ill Patients Urinary Catheter Date of Insertion: 09/04/24 Urinary Catheter Time of Insertion: 19:30 Data 09/10/24 03:40 09/10/24 03:40 A&P Assessment and plan (1) Acute exacerbation of congestive heart failure: Patient is in overt heart failure - Lasix IV 80 mg given in the emergency room. - This is followed by scheduled Lasix at 40 mg IV twice daily - Anemia of 7.3 that has been trending down was optimized with 1 pack RBC - Patient refused to wear BiPAP that was brought for her optimize heart care. - Will add spironolactone 25 mg orally daily - Daily weight - Strict I and O's - Metolazone 5 mg once daily (2) Chest pain: Shortness of breath associated with chest pain with elevated troponin significant for NSTEMI - In the setting of anemia must be careful that this is not a GI source anemia and be aware of anticoagulant antiplatelets - 2 occult blood testing continue to monitor (3) Anemia: Occult blood testing of the stool - Monitor hemoglobin and optimize accordingly (4) Acute hypoxemic respiratory failure: (5) DM type 2 (diabetes mellitus, type 2): Keep patient euglycemic Follow through with low protocol Accu-Cheks AC and at bedtime and at bedtime and monitor (6) Encephalopathy: Plan GI DVT prophylaxis in place 09/04/2024 Check troponin, EKG. Patient appears to be fluid overloaded. Will continue diuresis with Lasix 40 IV twice daily and continue metolazone. I would continue existing treatment as per H&P. Delta troponin at 6 hours 3.76. I would not call this an NSTEMI. Continue Eliquis, BuSpar, Plavix, Lasix hydralazine metolazone, metoprolol succinate Continue Seroquel, spironolactone 09/05/2024 Troponin at 6-hour has been negative. EKG does not show acute ischemia. ? We will continue to diurese at this time. I will repeat chest x-ray this morning. Patient may benefit from thoracentesis however she is on Eliquis. We would have to hold for 48 hours. She has a history of PE in the past. Will consult cardiology Check echocardiogram Stress test reviewed from May. Showed medium sized area of prior infarct seen in left circumflex artery and RCA territories. No evidence of ischemia. Repeat chest x-ray today. 09/06/2024 she has adequately diuresed at this time. I will hold off on further Lasix. Still complains of right-sided chest pain has chest wall tenderness. I query if there was a trauma or fall prior to hospital admission. She has had wrist fractures in the past. We will check CT shoulder. Patient is a very poor historian. Other than telling me that her chest hurts does not really elaborate regarding the pain. Pain is also elicited by range of motion at the right shoulder. Hemoglobin has been stable however has chronic anemia. We will reassess for chest x-ray today. If pleural effusions have not reduced in size may consider holding Eliquis next 48 hours for anticipated thoracentesis on Sunday. Echocardiogram reviewed. No wall motion abnormalities. I will add hydrocodone 5 3 times daily as needed for chest wall pain. Her clinical symptoms are not consistent with pericarditis. Pain could be secondary to musculoskeletal which is likely the cause at this time based on my assessment. 09/07/2024 Hold Lasix at this time. Chest wall tenderness responded to hydrocodone However she has a moderate to large pleural effusion on right side. Eliquis has been held on Sunday. Thoracentesis ordered for morning. She is on 2 L nasal cannula. Patient continues to be a poor historian however was able to tell me she is not having pain today. Overall appears very deconditioned and will benefit from continued physical therapy. September 08, 2024 73-year-old female with a past medical history of hypertension, PE chronically on Eliquis, COPD, diastolic heart failure, CAD, who was admitted to the hospital on September 04, 2024 after presenting with increasing shortness of breath and chest pain. ABG upon admission showed a pH of 7.4, PCO2 of 51.2, PO2 of 89.1, bicarb of 31.5, correlating with her history of chronic hypercapnic respiratory failure.Troponin series was unremarkable with a baseline troponin at 34, downtrending at 33 and 32 at [address] chest was performed on September 06, 2024 that showed nonspecific bibasilar consolidation consistent with atelectasis versus edema. She was noted to have bilateral pleural effusions right greater than left. Note was made of a right hilar mass conglomerate adenopathy and consolidated lung next to the right hilum which was asymmetrically enlarged. Patient was planned for right-sided thoracentesis today, however she is remaining on Plavix and radiology reports Plavix would need to be held for at least 3 days prior to undergoing the procedure. Her Eliquis was previously placed on hold anticipating the procedure today. Other significant comorbidities on this admission include worsening anemia. On admission her hemoglobin was at 7.3. In reviewing prior numbers it appears her baseline is between 8.1-10.1. Fecal occult blood testing from September 06 is positive for occult blood. No gross melena or hematemesis is noted. Review of chart shows patient is also on Plavix as an outpatient due to placement of recent stents. In reviewing cardiology notes it appears the stents were placed in early June, at an outside hospital. records requested from [facility]. Reviewed Dr. Ny's note from July 09, 2024 which notes that 2 stents were placed. Given this placement of stents approximately 3 months ago, we cannot discontinue the Plavix at this time. Will reconsult cardiology for recommendations. Will likely defer thoracentesis for now. On reviewing patient's chart, she was noted to have bilateral mild to moderate pleural effusions on July 30, 2024 as well. May need PET scan for further assessment of the noted right lung mass. Continue ceftriaxone and azithromycin. Respiratory status is currently at baseline. Will trend her hemoglobin in the next 24 hours. If no further drop, will aim to resume Eliquis. If continues with the following trend may need endoscopic evaluation versus consideration for IVC filter. Will aim to maintain diuresis for now. Patient is currently net -5.6 L. Continue Diamox. Check ABG today as she is appearing to be somnolent. to be reassessed with results of ABG. September 09, 2024 Patient is somnolent, prefers to sleep. She is able to wake up and answer few simple questions, attempted to self feed this morning however did have some noted coughing raising concern for aspiration. Speech therapy assessment was requested and level 6 diet has been recommended at this time. Attempted to verify baseline status from the skilled nursing. residential stated that patient at baseline is able to ambulate out of bed to bedside commode with standby assist. She is also able to wheel her own wheelchair to the dining nichole. She typically self feeds and is able to have a meaningful conversation. This appears to be very different from her current admission. Patient is lethargic, drowsy. Wakes up to answer simple questions but does not participate in extended conversation. ABG was checked yesterday morning which did not show any significant hypercapnia. pCO2 is in the 50s which is at patient's baseline. There is compensated respiratory acidosis. Oxygen requirement also at baseline of 2 L/min supplemental O2. At this time she is not showing any signs of overt respiratory distress therefore thoracentesis has been deferred as Plavix cannot be interrupted at this time given recent history of stents. Will obtain CT of the head to assess for any interval CVA. Patient has a history of CVA in the past. Once hemorrhagic stroke ruled out, will aim to resume Eliquis though at a lower dose of 2.5 mg p.o. twice daily given anemia. In reviewing patient's past number baseline hemoglobin appears to be between 8.1-10.1. Patient will likely benefit from outpatient EGD and colonoscopy. No signs of active bleeding at this time. Additionally check TSH and ammonia levels. Hold opiates and Buspar. Resume lasix 40mg po BID. September 10, 2024 Patient is continuing to be lethargic, however appears to be at least slightly more alert compared to yesterday. Able to talk more. Participated with occupational therapy yesterday. Was unable to participate with PT yesterday as she was too sleepy. This will be attempted again today. Exhibiting at least moderate to maximum assistance today. CT of the head taken yesterday was without any bleeding. Right side appears to be weaker compared to the left. Will obtain MRI of the head to better evaluate for any stroke which may be contributing to her current clinical picture. Noted free T3-T4 to be mildly low however with normal TSH. Ammonia level normal. Resume Eliquis today, however would reduce dose to 2.5 mg p.o. twice daily given worsening anemia on this admission. She does not have any active hematemesis or melena at this time. May need endoscopic evaluation outpatient prior to increasing Eliquis to full dose. She confirms she had stents placed in June of this year. Continuing Plavix and Eliquis for this reason. Overall clinical impression is that of significant deconditioning, perhaps related to recurrent admissions to the hospital this year, possibly also with metabolic encephalopathy related to pneumonia, CHF. If MRi withotu acute stroke, likely that current lethargy is mostly related to deconditioning. PDMP PDMP Reviewed: Not Reviewed Attestations 2 Medical Necessity Statement*: MRI head today, resume Eliquis, monitor hemoglobin with resuming Eliquis Coding Level of Care Code Acute Code for Chg Fwd Diagnoses Acute exacerbation of congestive heart failure I50.9 Chest pain R07.9 Anemia D64.9 Acute hypoxemic respiratory failure J96.01 DM type 2 (diabetes mellitus, type 2) E11.9 Encephalopathy G93.40
--- NOTE | 2024-09-10 14:42 | PC.NURSE ---
per nanotechnician, patient cannot be taken by bed to MRI until either maintenance supervisor 2nd shift gets here or the inpatient MRI is reopened.
--- NOTE | 2024-09-10 15:34 | PC.OT ---
Approached PT 2x denies needs, refuses tx
[2024-09-10 16:41] LABS: Glucose Point of Care 273 mg/dL (70-110)
[2024-09-10] MEDS: sucralfate 1 gm Tablet PO (17:46)
[2024-09-10] MEDS: quetiapine 25 mg Tablet 50 MG PO (20:31)
[2024-09-10] MEDS: ropinirole 1 mg Tablet PO (20:32)
[2024-09-10 20:51] LABS: Glucose Point of Care 269 mg/dL (70-110)
[2024-09-11] VITALS (11 sets, daily range): BP systolic 127–142; BP diastolic 58–85; PULSE 69–86; RESP 15–21; TEMP 36.9–37.1; O2SAT 96–99
[2024-09-11] MEDS: benzonatate 100 mg Capsule 200 MG PO ×2 (02:59→10:27)
[2024-09-11 04:27] LABS: Basophils % 0.5 %; Eosinophils # 0.4 10^3/uL (0.0-0.8); Eosinophils % 4.5 %; Hematocrit 34.4 % (36-47); Lymphocytes # 1.4 10^3/uL (0.8-4.8); Lymphocytes % 18.3 %; Mean Corpuscular HGB Conc 29.1 g/dL (30-55); Mean Corpuscular Volume 82.5 fl (85-98); Mean Platelet Volume 9.9 fL (7.4-10.4); Monocytes # 0.7 10^3/uL (0.2-0.9); Monocytes % 8.4 %; Neutrophils # 5.23 10^3/uL (1.8-7.7); Nucleated Red Blood Cells % 0 %; Platelet Count 259 10^3/cmm (157-399); Red Blood Count 4.17 10^6/uL (3.85-5.65); Red Cell Distribution Width 14.6 % (12.1-15.1)
[2024-09-11 04:54] LABS: Alanine Aminotransferase 8 U/L (0-33); Albumin Level 3.4 g/dL (3.5-5.2); Alkaline Phosphatase 88 U/L (35-105); Aspartate Amino Transferase 10 U/L (0-32); Blood Urea Nitrogen 61 mg/dL (8-23); Calcium 9.2 mg/dL (8.5-10.5); Carbon Dioxide 29 mmol/L (22-29); Chloride 91 mmol/L (98-107); Globulin 3.8 g/dL (1.3-4.6); Glucose 275 mg/dL (65-115); Osmolality Calculated 303 mOsm/kg (285-295); Sodium 133 mmol/L (136-145); Total Bilirubin 0.2 mg/dL (0.15-1.2); Total Protein 7.2 g/dL (6.6-8.7)
[2024-09-11] MEDS: ipratropium-albuterol 3 mL Neb INHALATION (08:09)
[2024-09-11] MEDS: ondansetron 2 mg/ML SDV 2 mL 4 MG IVP (08:09)
[2024-09-11] MEDS: docusate sodium 100 mg Capsule PO (08:09)
[2024-09-11] MEDS: metoprolol succinate ER (24 HR) 25 mg Tablet PO (08:09)
[2024-09-11] MEDS: pantoprazole DR 40 mg Tablet PO (08:10)
[2024-09-11] MEDS: apixaban 5 mg Tablet 2.5 MG PO (08:10)
[2024-09-11] MEDS: FUROsemide 40 mg Tablet PO (08:10)
[2024-09-11] MEDS: hyDRALAzine 25 mg Tablet PO (08:10)
[2024-09-11] MEDS: clopidogrel 75 mg Tablet PO (08:10)
[2024-09-11] MEDS: insulin lispro 100 unit/1 mL SUBCUT (08:13)
[2024-09-11 08:18] LABS: Glucose Point of Care 304 mg/dL (70-110)
[2024-09-11] MEDS: cefTRIAXone 1,000 mg SDV 1000 MG IVP (10:27)
--- NOTE | 2024-09-11 10:52 | PC.NURSE ---
Call placed to [facility]. They state they have not received the orders as of yet.
--- NOTE | 2024-09-11 11:15 | PC.NURSE ---
Report called to [facility].
--- NOTE | 2024-09-11 15:54 | PM.DCS ---
Discharge Providers Date of Admission: 09/03/24 20:31 Date of Discharge: September 11, 2024 Attending Provider at Admission: Nedra Ron MD Attending Provider at Discharge: Maru Morris MD Primary Care Provider: Mat Chirinos DO Diagnoses at Discharge Discharge Diagnosis (1) Acute exacerbation of congestive heart failure: Status: Acute (2) Chest pain: Status: Acute (3) Anemia: Status: Acute (4) Acute hypoxemic respiratory failure: Status: Acute (5) DM type 2 (diabetes mellitus, type 2): Status: Acute (6) Encephalopathy: Status: Acute Reason for Visit Reason for Visit: BRADEN, CP Hospital Course Hospital Course 73-year-old female with a past medical history of hypertension, PE chronically on Eliquis, COPD, diastolic heart failure, CAD, who was admitted to the hospital on September 04, 2024 after presenting with increasing shortness of breath and chest pain. ABG upon admission showed a pH of 7.4, PCO2 of 51.2, PO2 of 89.1, bicarb of 31.5, correlating with her history of chronic hypercapnic respiratory failure.Troponin series was unremarkable with a baseline troponin at 34, downtrending at 33 and 32 at [address] chest was performed on September 06, 2024 that showed nonspecific bibasilar consolidation consistent with atelectasis versus edema. She was noted to have bilateral pleural effusions right greater than left. Note was made of a right hilar mass conglomerate adenopathy and consolidated lung next to the right hilum which was asymmetrically enlarged. Patient was planned for right-sided thoracentesis, however she is remaining on Plavix due to recently placed stents in June and this medication cannot be discontinued at this time. radiology reported Plavix would need to be held for at least 3 days prior to undergoing the procedure. Since plavix could not be held and patient's respiratory status improved during admission, thoracentesis was deferred at this time. For pneumonia she was treated with ceftriaxone and azithromycin. She is at her baseline 02 requirement of 2lpm. Other significant comorbidities on this admission included worsening anemia. On admission her hemoglobin was at 7.3. In reviewing prior numbers it appears her baseline is between 8.1-10.1. Fecal occult blood testing from September 06 was positive for occult blood. No gross melena or hematemesis is noted. Eliquis was briefly held and then resumed at half dose of 2.5mg BID in voew of anemia. She may need endocsopic evaluation if resumption of full dose is considered in the future. She was incidentally noted to right lung mass on CT chest for which she may need PET scan for further assessment. This will need to be followed up with PCP in the next 2-3 weeks. She was also noted to have metabolic encephalopathy during the course of admission. Patient remained lethargic and drowsy from much of her admission course. This improved with holding buspirone and oral opiates. Today on the day of discharge patient is awake alert and oriented, able to have a conversation. She is significantly deconditioned most likely related to her multiple recent hospital admissions and would likely benefit from ongoing physical and Occupational Therapy. TSH and ammonia levels were within normal range. Free T3 and T4 mildly low however since TSH was normal, no action has been taken at this time with regards to this lab. Respiratory status is at baseline today. Her mental status is back at baseline today. He is able to hold a conversation and able to provide her historical details. She is being discharged today in stable but chronically ill condition. Diuresis has been increased at discharge to p.o. Bumex 1 mg daily. During admission course she received Lasix intravenously. Physical Exam Narrative: General: No acute distress, AO x3, chronically ill appearing HEENT: PERRLA, pupils bilaterally equal and reactive, pallors not present Chest: Normal vesicular breath sounds, no added sounds, equal good air entry bilaterally CVS: S1-S2 regular, no murmurs, no tachycardia, no gallops, no rubs Abdomen: Soft, nontender, no organomegaly, bowel sounds present Neuro: No focal deficits, generalized deconditioning Urinary Catheter Management: Mathew: Cath Placed During This Visit: yes, but has since been removed by the nurse Reason for Continuing Indwelling Catheter: Accurate Measurement of Urinary Output in Critically Ill Patients Urinary Catheter Date of Insertion: 09/04/24 Urinary Catheter Time of Insertion: 19:30 Date Urinary Catheter Removed: 09/11/24 Time Urinary Catheter Discontinued: 11:15 Discharge Data Studies Completed and Pending Completed Studies During Hospitalization Category Date Time Status CT chest wo con [id number] Urgent Cat Scan 09/06/24 12:[address] head wo con* [id number] Routine Cat Scan 09/09/24 14:[address] shoulder RT wo con* [id number] Stat Cat Scan 09/06/24 11:58 Completed XR chest 1V portable [id number] Stat Exams 09/03/24 17:50 Completed XR chest 1V portable [id number] Stat Exams 09/05/24 12:12 Completed XR chest 1V portable [id number] Urgent Exams 09/06/24 12:03 Completed CV. echo limited [id number] Routine Ultrasound 09/05/24 12:06 Completed Pending at discharge Category Date Time Status Cytology [PTH] Routine Pth 09/06/24 15:54 Ordered Radiology Impressions Shoulder CT 09/06/24 11:58 IMPRESSION: 1. No acute bony abnormality. 2. Large right pleural effusion. 3. There is mild ground-glass opacity in the right lung apex compatible with edema or mild pneumonitis. Chest X-Ray 09/06/24 12:03 IMPRESSION: 1. Bilateral lower lobe pneumonia versus atelectasis with moderate-sized bilateral pleural effusions. Given differences in positioning, findings are not significantly changed since September 05, 2024. 2. Probable cardiomegaly. Cardiac borders are partially obscured. Chest CT 09/06/24 12:09 IMPRESSION: 1. Nonspecific bibasilar consolidation is present, consistent with atelectasis, edema, or pneumonia. Bilateral pleural effusions right greater than left. 2. There is also mild diffuse ground-glass opacity in the lungs compatible mild edema versus pneumonitis. 3. Multiple subcentimeter mediastinal lymph nodes are present. There is concern for right hilar mass, conglomerate adenopathy and/or consolidated lung adjacent to the right hilum. The right hilum is asymmetrically enlarged. 4. Multiple ground-glass pulmonary nodules. Largest measures 8 mm in size.Recommend CT Chest at 3-6 months. Subsequent management based on the most suspicious nodule(s). (Reference: Pratibha) REFERENCES: BobbyMahotariq H, et al. Guidelines for Management of Incidental Pulmonary Nodules Detected on CT Images: From the Fleischner Society 2017. Radiology. 2017;284(1):228-243. Head CT 09/09/24 14:14 IMPRESSION: No acute intracranial abnormality. If symptoms persist, consider further evaluation with MRI, if there are no contraindications to obtaining a MRI scan. Laboratory Results WBC 7.70 10^3/uL (3.29-11.43) 09/11/24 04:05 RBC 4.17 10^6/uL (3.85-5.65) 09/11/24 04:05 Hgb 10.00 g/dL (11.27-16.99) L 09/11/24 04:05 Hct 34.4 % (36-47) L 09/11/24 04:05 MCV 82.5 fl (85-98) L 09/11/24 04:05 MCH 24.0 pg (27-33) L 09/11/24 04:05 MCHC 29.1 g/dL (30-55) L 09/11/24 04:05 RDW 14.6 % (12.1-15.1) 09/11/24 04:05 Plt Count 259 10^3/cmm (157-399) 09/11/24 04:05 MPV 9.9 fL (7.4-10.4) 09/11/24 04:05 Neut % (Auto) 68.0 % 09/11/24 04:05 Lymph % (Auto) 18.3 % 09/11/24 04:05 [place] % (Auto) 8.4 % 09/11/24 04:05 Eos % (Auto) 4.5 % 09/11/24 04:05 Baso % (Auto) 0.5 % 09/11/24 04:05 Neut # (Auto) 5.23 10^3/uL (1.8-7.7) 09/11/24 04:05 Lymph # (Auto) 1.4 10^3/uL (0.8-4.8) 09/11/24 04:05 [place] # (Auto) 0.7 10^3/uL (0.2-0.9) 09/11/24 04:05 Eos # (Auto) 0.4 10^3/uL (0.0-0.8) 09/11/24 04:05 Baso # (Auto) 0.0 10^3/uL (0.0-0.1) 09/11/24 04:05 Nucleated RBC % (auto) 0 % 09/11/24 04:05 Nucleated RBCs # 0.0 /100WBC 09/11/24 04:05 PT 13.50 SECONDS (12.1-14.9) 09/07/24 17:04 INR 0.96 (0.8-1.2) 09/07/24 17:04 Specimen Type Arterial 09/08/24 17:50 Sample Site Radial, right 09/08/24 17:50 ABG pH 7.43 (7.35-7.45) 09/08/24 17:50 ABG pCO2 50.7 mmHg (35-45) H 09/08/24 17:50 ABG pO2 83.6 mmHg (80.0-100.0) 09/08/24 17:50 ABG HCO3 33.7 mmol/L (22-26) H 09/08/24 17:50 ABG O2 Saturation 97.4 09/03/24 17:52 ABG Base Excess 8.3 mmol/L (-2.0-2.0) H 09/08/24 17:50 Stephen Test Pos 09/08/24 17:50 A-a O2 Gradient Not Reportable 09/03/24 17:52 Hematocrit 30.4 % (37-47) L 09/08/24 17:50 Hgb O2 Saturation 94.7 % (95-100) L 09/03/24 17:52 Carboxyhemoglobin 1.4 %THgb (0.4-20.1) 09/03/24 17:52 Methemoglobin 1.3 % (0.4-1.5) 09/03/24 17:52 Total Hemoglobin 8.5 g/dL (12-16) L 09/03/24 17:52 Sodium 143.0 mmol/L (131-143) 09/03/24 17:52 Potassium 4.4 mmol/L (3.5-5.0) 09/03/24 17:52 Glucose 186.0 mg/dL (70-115) H 09/03/24 17:52 Ionized Calcium 1.2 mmol/L (1.1-1.4) 09/03/24 17:52 O2 Delivery Device Nc 09/08/24 17:50 O2 Liters/Min 2.0 % 09/08/24 17:50 Nuclear Reactor Technician ID [place] 09/08/24 17:50 Sodium 133 mmol/L (136-145) L 09/11/24 04:05 Potassium 4.0 mmol/L (3.5-5.1) 09/11/24 04:05 Chloride 91 mmol/L (98-107) L 09/11/24 04:05 Carbon Dioxide 29 mmol/L (22-29) 09/11/24 04:05 Anion Gap 17.0 (5-19) 09/11/24 04:05 BUN 61 mg/dL (8-23) H 09/11/24 04:05 Creatinine 1.2 mg/dL (0.5-0.9) H 09/11/24 04:05 GFR Calculation Not Reportable 09/11/24 04:05 Glucose 275 mg/dL (65-115) H 09/11/24 04:05 POC Glucose 304 mg/dL (70-110) H 09/11/24 08:04 Calculated Osmolality 303 mOsm/kg (285-295) H 09/11/24 04:05 Lactic Acid 0.9 mmol/L (0.5-2.2) 09/03/24 18:23 Calcium 9.2 mg/dL (8.5-10.5) 09/11/24 04:05 Phosphorus 3.8 mg/dL (2.5-4.5) 09/04/24 05:02 Magnesium 2.5 mg/dL (1.7-2.3) H 09/08/24 05:02 Total Bilirubin 0.2 mg/dL (0.15-1.2) 09/11/24 04:05 AST 10 U/L (0-32) 09/11/24 04:05 ALT 8 U/L (0-33) 09/11/24 04:05 Alkaline Phosphatase 88 U/L (35-105) 09/11/24 04:05 Ammonia 34 umol/L (11-51) 09/09/24 16:02 Troponin T 5th Gen ng/L 35 ng/L (0-10) H 09/04/24 10:16 Troponin T Baseline 34 ng/L (0-10) H 09/04/24 23:09 Troponin T 120 Minute 33.01 ng/L (0-10) H 09/05/24 01:14 Delta Troponin T -0.99 ABS# (0-10) L 09/05/24 01:14 Troponin T Hi Sens 6Hr 32.21 ng/L (0-10) H 09/05/24 04:29 Troponin T Hi Sens 6Hr Delta -1.79 ng/L (0-12) L 09/05/24 04:29 C-Reactive Protein 3.0 mg/L (0.0-4.9) 09/03/24 18:23 NT-Pro-B Natriuret Pep 8217 pg/mL (0-125) H 09/03/24 18:23 Total Protein 7.2 g/dL (6.6-8.7) 09/11/24 04:05 Albumin 3.4 g/dL (3.5-5.2) L 09/11/24 04:05 Globulin 3.8 g/dL (1.3-4.6) 09/11/24 04:05 TSH 3.73 uIU/mL (0.27-4.20) 09/09/24 16:02 Free T4 0.80 ng/dL (0.82-1.77) L 09/09/24 16:02 Free T3 1.8 PG/ML (2.0-4.4) L 09/09/24 16:02 Blood Type A Positive 09/03/24 19:22 Rho(D) Type Rh positive 09/03/24 19:22 Antibody Screen Negative 09/03/24 19:22 Crossmatch See Detail 09/03/24 19:22 Vitals Last Vital Signs Temp 98.7 F 09/11/24 10:45 Pulse 84 09/11/24 10:53 Resp 16 09/11/24 10:53 BP 137/73 09/11/24 10:45 Pulse Ox 98 09/11/24 10:53 O2 Del Method Nasal Cannula 09/11/24 10:53 O2 Flow Rate 2 09/11/24 10:53 FiO2 30 09/07/24 17:00 Discharge Plan Discharge Patient Disposition: Xfer SNF Condition: Stable Prescriptions: Continued acetaminophen 500 mg capsule 1,000 mg PO Q8H PRN (Reason: Pain) calcium carbonate [Calcium Antacid] 200 mg calcium (500 mg) tablet,chewable 200 mg PO BID PRN (Reason: Indigestion) rosuvastatin 20 mg tablet 20 mg PO DAILY ropinirole 1 mg Tablet 1 mg PO BEDTIME tramadol-acetaminophen 37.5-325 mg Tablet 1 tab PO BID PRN (Reason: Pain) sucralfate 1 gram Tablet 1 g PO DAILY@1700 metformin 1,000 mg Tablet 1,000 mg PO BIDWMEAL metoprolol succinate 25 mg Tablet Extended Release 24 Hr 25 mg PO DAILY docusate sodium 100 mg Tablet 100 mg PO BID magnesium 200 mg Tablet 200 mg PO BEDTIME calcium carbonate-vitamin D3 500 mg-5 mcg (200 unit) Tablet 1 tab PO DAILY quetiapine [Seroquel] 50 mg Tablet 50 mg PO BEDTIME umeclidinium-vilanterol [Anoro Ellipta] 62.5-25 mcg/actuation Blister With Device 1 inh INHALATION DAILY pantoprazole 40 mg tablet,delayed release (DR/EC) 40 mg PO DAILY albuterol sulfate 90 mcg/actuation HFA aerosol inhaler 2 inh inhalation Q4H PRN (Reason: shortness of breath or wheezing) dapagliflozin propanediol [Farxiga] 10 mg tablet 10 mg PO DAILY Qty: 30 0RF hydralazine 25 mg tablet 25 mg PO TID Qty: 90 0RF ondansetron HCl 4 mg Tablet 4 mg PO Q6H PRN (Reason: Nausea And Vomiting) Spiriva Respimat 2.5 mcg/actuation Mist 2 puff INHALATION DAILY clopidogrel 75 mg tablet 75 mg PO DAILY Rx Instructions: TAKE 1 TABLET BY MOUTH EVERY DAY polyethylene glycol 3350 17 gram/dose Powder 17 g PO DAILY Changed bumetanide 2 mg tablet 1 mg PO DAILY 30 Days Qty: 30 0RF buspirone 7.5 mg Tablet 7.5 mg PO DAILY 30 Days Qty: 0 0RF Eliquis 5 mg tablet 2.5 mg PO BID Qty: 90 3RF Discontinued spironolactone 25 mg Tablet 50 mg PO DAILY Discharge Orders: Discharge Order (Routine); Ordered 09/11/24 Ordered By: Maru Morris Referrals: [facility] [Outside] Mat Chirinos DO [Primary Care Provider, Family Practice] - 7-10 days Discharge Diet: Usual diet Discharge Activity: Resume usual activity Patient Instructions: Heart Failure (DC), Anemia (DC) Discharge Attestations Time Spent in Discharge Care*: greater than 30 min Status at Discharge: Cognitive status at discharge: mildly impaired cognition, Behavioral status at discharge: cooperative, Quality Metrics Clinical Quality Measures [ No reported AMI, CVA or VTE this stay] Coding Level of Care Code Acute Code for [facility] Diagnoses Acute exacerbation of congestive heart failure I50.9 Chest pain R07.9 Anemia D64.9 Acute hypoxemic respiratory failure J96.01 DM type 2 (diabetes mellitus, type 2) E11.9 Encephalopathy G93.40
== END 2024-09-11 13:00 | disposition skilled nursing facility (03) | DRG 291 ==
LOC: ER 21:55 → CSU 21:57
PROVIDERS: Family Medicine; Internal Medicine; Admitting Provider Internal Medicine; Emergency Provider Emergency Medicine; PCP Electrodiagnostic Medicine; Visit Provider Student in an Organized Health Care Education/Training Program
DX: I11.0 Hypertensive heart disease with heart failure (principal); G93.41 Metabolic encephalopathy; I50.33 Acute on chronic diastolic (congestive) heart failure; J96.01 Acute respiratory failure with hypoxia; J91.8 Pleural effusion in other conditions classified elsewhere; J96.12 Chronic respiratory failure with hypercapnia; J44.0 Chronic obstructive pulmonary disease with (acute) lower respiratory infection; E87.29 Other acidosis; E66.9 Obesity, unspecified; I25.10 Atherosclerotic heart disease of native coronary artery without angina pectoris; E78.5 Hyperlipidemia, unspecified; E11.43 Type 2 diabetes mellitus with diabetic autonomic (poly)neuropathy; K31.84 Gastroparesis; R62.7 Adult failure to thrive; K21.9 Gastro-esophageal reflux disease without esophagitis; G25.81 Restless legs syndrome; D64.9 Anemia, unspecified; Z86.73 Personal history of transient ischemic attack (TIA), and cerebral infarction without residual deficits; Z68.35 Body mass index [BMI] 35.0-35.9, adult; Z79.01 Long term (current) use of anticoagulants; Z79.02 Long term (current) use of antithrombotics/antiplatelets; Z79.4 Long term (current) use of insulin; Z79.899 Other long term (current) drug therapy; Z88.5 Allergy status to narcotic agent; Z88.8 Allergy status to other drugs, medicaments and biological substances; Z88.7 Allergy status to serum and vaccine; Z99.81 Dependence on supplemental oxygen; Z95.5 Presence of coronary angioplasty implant and graft; Z53.09 Procedure and treatment not carried out because of other contraindication
CPT/HCPCS: 36415; 36416; 36430; 36600; 51702; 70450; 71045; 71250; 73200; 80048; 80051; 80053; 82140; 82274; 82330; 82803; 82805; 82962; 83605; 83735; 83880; 84100; 84439; 84443; 84481; 84484; 85025; 85610; 86140; 86850; 86900; 86920; 87040; 92507; 92523; 92526; 92610; 93005; 93308; 94640; 94660; 96365; 96372; 96375; 96376; 97110; 97162; 97167; 97530; 99285; J0456; J0696; J1815; J1938; J2060; J2270; J2405; J3535; J7050; J9999; P9016; Q0144

== ENCOUNTER 2024-09-18 23:22 | Emergency (ER) | payer MEDICAID, SELFPAY ==
[2024-09-18 23:22] VITALS: BP 108/62; PULSE 80; RESP 18; TEMP 36.9; O2SAT 95; BMI 35.4
--- NOTE | 2024-09-18 23:24 | XRR_ITS ---
PROCEDURE INFORMATION: Exam: XR Chest Exam date and time: 09/18/2024 11:37 PM Age: 74 years old Clinical indication: Pain; Chest pressure; Additional info: Chest pain TECHNIQUE: Imaging protocol: Radiologic exam of the chest. Views: 1 view. COMPARISON: CT chest con [id number] 09/06/2024 2:02 PM FINDINGS: Lungs: Improved aeration in the lung bases compared with prior. No new airspace disease. Pleural spaces: Near-complete resolution of previously seen bilateral pleural effusions. Heart/Mediastinum: Stable cardiomediastinal silhouette. Vasculature: Atherosclerotic aortic calcifications. Bones/joints: Unremarkable. XR/XR chest 1V portable [id number] IMPRESSION: Improving aeration in the lung bases with near-complete resolution of previously seen bilateral pleural effusions. No new airspace disease.
--- NOTE | 2024-09-18 23:29 | ECG_ITS ---
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1950 Requested By: Arvin Smith Order Number: [id number] Reading MD: Measurements Intervals Alanson Rate: 80 P: 20 WV: 188 QRS: -53 QRSD: 103 T: 62 QT: 406 QTc: 469 Interpretive Statements SINUS RHYTHM INFERIOR MYOCARDIAL INFARCTION , PROBABLY OLD [40+ ms Q WAVE AND/OR ST/T ABNORMALITY IN II/aVF] ANTEROSEPTAL MYOCARDIAL INFARCTION , OF INDETERMINATE AGE [40+ ms Q WAVE IN V1-V4] Compared to ECG 09/08/2024 16:20:36 Left anterior fascicular block no longer present Myocardial infarct finding still present [email or web address]
--- OUTSIDE RECORDS SUMMARY | 2024-09-18 23:32 | XMS_ITS | Clinical Summary ---
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 2-p 35 ml LVOT/AV, Vpeak ratio 0.35 EF, 2-p 48 % SANJUANA, Vmax 1.09 cm^2 SV, 2-p 31 ml SANJUANA/bsa, Vmax 0.52cm^2/m^2 EDV/bsa, 2-p 32 ml/m^2 ESV/bsa, 2-p 16 ml/m^2 Mitral valve Value SV/bsa, 2-p 14.6 ml/m^2 Peak E 128.47cm/sec EDV, MM Teich. 111 ml Peak A 124.89cm/sec EF, MM Teich. 59 % Decel slope 544.1cm/s^2 EDV/bsa, MM Teich. 53 ml/m^2 Decel time 236 ms EF, MM on 2D Teich. 59 % Peak grad, D 7 mm Hg E', lat josé luis, TDI 6.4 cm/sec Peak E/A ratio 1.03 E/e', lat josé luis, TDI 20 Vena contracta width 3.3 cm E', med josé luis, TDI 6.0 cm/sec E/e', med josé luis, TDI 22 Tricuspid valve Value E', avg, TDI 6.2 cm/sec TR peak v 272.77cm/sec E/e', avg, TDI 21 Peak RV-RA grad, S 30 mm Hg LVOT Value Inferior vena cava Value Diam, S 2.0 cm Diam 1.5 cm Area 3.0 cm^2 Legend: (L) and (H) erinn values outside specified reference range. [facility] are accredited with theIntersocietal Accreditation Commission - Echocardiography. Prepared and Electronically Authenticated Fernando Beck MD Confirmed 06/23/2024 11:03 us Germain Lincoln MD US ORDERABLES Final Result INTERFACE SYSTEM Refer to clinic/hospital department * LEFT HEART CATH, PERCUTANEOUS CORONARY INTERVENTION, IVUS-CORONARY INTRAVASCULAR (06/23/2024 8:26 AM CDT) 06/23/2024 7:37 AM CDT Narrative [facility] - 06/23/2024 4:06 PM CDT Prox LAD lesion is 99% stenosed. Ost Cx lesion is 95% stenosed. Mid RCA to Dist RCA lesion is 40% stenosed. Prox LAD reduced to 0% stenosed. Ost Cx reduced to 0% stenosed. Significant 2 vessel CAD s/p IVUS guided PCI with TUSHAR x2 PCI to proximal LAD ALEXEY 3.0x15 PCI to ostial LCX ALEXEY 3.0x8 posted 3.0 NC Coronary Findings Diagnostic Dominance: Right Left Main: The vessel is moderate in size and is angiographically normal. Left Anterior Descending: Prox LAD lesion is 99% stenosed. RADU flow is 3. The lesion was not previously treated. Ultrasound (IVUS) was performed. Mild plaque burden was detected. IVUS has determined that the lesion is calcified and concentric. Previously placed Prox LAD to Mid LAD stent of unknown type is widely patent. First Diagonal Branch: The vessel exhibits minimal luminal irregularities. Left Circumflex: Ost Cx lesion is 95% stenosed. Culprit lesion. RADU flow is 3. The lesion is not complex (non high-C), located at the bifurcation and eccentric. The lesion was not previously treated. First Obtuse Marginal Branch: The vessel exhibits minimal luminal irregularities. Right Coronary Artery: Mid RCA to Dist RCA lesion is 40% stenosed. Intervention Prox LAD lesion: Angioplasty: Pre-stent angioplasty was performed. Angioplasty was performed prior to stent deployment. Supplies Used: BALLN RX US EUPHORA 3.0X10MM LPRFL LT PTCA [id number] Stent: Drug-eluting stent was successfully placed. The stent used was a STENT ALEXEY FRONTIER TUSHAR 3.0X15MM RX [id number]. Overlapping previous stent Post-Intervention Lesion Assessment: The intervention was successful. The guidewire crossed the lesion. Device was deployed. Post-intervention RADU flow is 3. There were no complications. There is a 0% residual stenosis post intervention. Ost Cx lesion: Angioplasty: Pre-stent angioplasty was performed. Angioplasty was performed prior to stent deployment. Supplies Used: BALLN RX US EUPHORA 3.0X10MM LPRFL LT PTCA [id number]; STENT ALEXEY FRONTIER TUSHAR 3.0X8MM RX [id number] Angioplasty: Post-stent angioplasty was performed. Angioplasty was performed following stent deployment. A standard balloon was used in the main branch. Supplies Used: CATH BALLN PTCA 3.0X8MM SAPPHIRE NC24 CORONARY [id number] Post-Intervention Lesion Assessment: The intervention was successful. The guidewire crossed the lesion. Device was deployed. Post-intervention RADU flow is 3. There were no complications. There is a 0% residual stenosis post intervention. Estimated Blood Loss There was minimal blood loss during procedure. PCI RISK [facility] Frailty Score: Mildly Frail (Evident slowing, Require some assistance with all ADLs). NYHA Class: Class II: Slight limitation of physical activity. Comfortable at rest, but ordinary physical activity results in symptoms of HF. (ESCOBAR, walking more than 2 blocks would cause ESCOBAR) CV Instability: persistent ischemic symptoms (chest pain, SOBIA). PAD: Unknown. Cerebrovascular Disease History: Ischemic stroke us Yohana Sanz DO CUP CATH ORDERABLES Jessie l Result [facility] [id number] [address] [place] [address], [place] [phone] * (ABNORMAL) POC ACTIVATED CLOTTING TIME (06/23/2024 8:09 AM CDT) Pathologist [facility] ACTIVATED CLOTTING TIME POC 256(H) 116 - 140 sec 06/23/2024 8:[address] [facility] Blood 06/23/2024 8:09 AM CDT 06/23/2024 8:31 AM CDT Karan Christopher Dove MD POINT OF CARE TESTING Fin al Result [facility] CLIA # [id number] [address] [place] [address] * (ABNORMAL) CBC WITH DIFFERENTIAL (06/23/2024 7:16 AM CDT) Only the most recent of3 resultswithin the time period is included. Pathologist [facility] WBC 15.6(H) 4.8 - 10.8 K/uL 06/23/2024 7:[address] [facility] RBC 3.59(L) 4.20 - 5.40 M/uL 06/23/2024 7:[address] [facility] HEMOGLOBIN 10.1(L) 12.0 - 16.0 g/dL 06/23/2024 7:32 AM [facility] HEMATOCRIT 32.2(L) 36.0 - 46.0 % 06/23/2024 7:[address] [facility] MCV 89.7 84.0 - 103.0 fL 06/23/2024 7:[address] [facility] MCH 28.1 27.0 - 34.0 pg 06/23/2024 7:[address] [facility] MCHC 31.4 30.0 - 35.0 g/dL 06/23/2024 7:[address] [facility] PLATELETS 280 140 - 440 K/uL 06/23/2024 7:32 AM [facility] MPV 9.6 8.9 - 12.8 fL 06/23/2024 7:32 AM [facility] RDW 14.8(H) 11.0 - 14.5 % 06/23/2024 7:32 AM [facility] RDW-STDEV 48.4 37.0 - 54.0 fL 06/23/2024 7:32 AM [facility] NEUTROPHILS 78(H) 42 - 75 % 06/23/2024 7:32 AM [facility] LYMPHOCYTES 14(L) 24 - 44 % 06/23/2024 7:32 AM [facility] MONOCYTES 7 2 - 10 % 06/23/2024 7:32 AM [facility] EOSINOPHILS 0 0 - 7 % 06/23/2024 7:32 AM [facility] BASOPHILS 0 0 - 1 % 06/23/2024 7:32 AM [facility] IMMATURE GRANULOCYTES 1 0 - 2 % 06/23/2024 7:32 AM [facility] NEUTROPHIL ABSOLUTE 12.16(H) 2.00 - 8.00 K/uL 06/23/2024 7:32 AM [facility] LYMPHOCYTE ABSOLUTE 2.21 1.20 - 4.00 K/uL 06/23/2024 7:32 AM [facility] MONOCYTE ABSOLUTE 1.04(H) 0.10 - 0.60 K/uL 06/23/2024 7:32 AM [facility] EOSINOPHIL ABSOLUTE 0.06 0.00 - 0.70 K/uL 06/23/2024 7:32 AM [facility] BASOPHILS ABSOLUTE 0.01 0.00 - 0.20 K/uL 06/23/2024 7:32 AM [facility] IMMATURE GRANULOCYTES ABSOLUTE 0.09 0.00 - 0.10 K/uL 06/23/2024 7:32 AM [facility] SMEAR REVIEWED: NA - Not Applicable 06/23/2024 7:32 AM [facility] Blood Venipuncture / Unknown 06/23/2024 7:16 AM CDT 06/23/2024 7:27 AM CDT Karan Dove MD HEMATOLOGY ORDERABLES Fin al Result [facility] CLIA # [id number] [facility] [address] [place] [address] * (ABNORMAL) COMPREHENSIVE METABOLIC PANEL (06/23/2024 7:16 AM CDT) Only the most recent of2 resultswithin the time period is included. SODIUM 132(L) 136 - 145 mmol/L 06/23/2024 7:[address] [facility] POTASSIUM 5.0 3.5 - 5.1 mmol/L 06/23/2024 7:[address] [facility] CHLORIDE 97(L) 98 - 107 mmol/L 06/23/2024 7:[address] [facility] CO2 26 22 - 29 mmol/L 06/23/2024 7:[address] [facility] CALCIUM 8.6(L) 8.8 - 10.2 mg/dL 06/23/2024 7:[address] [facility] BUN 44(H) 8 - 23 mg/dL 06/23/2024 7:[address] [facility] CREATININE 1.14(H) 0.51 - 0.95 mg/dL 06/23/2024 7:[address] [facility] Comment:The GFR result is no t clinically significant on patients <18 or >70 years of age. GLUCOSE 196(H) 74 - 99 mg/dL 06/23/2024 7:[address] [facility] TOTAL PROTEIN 5.9(L) 6.4 - 8.3 g/dL 06/23/2024 7:[address] [facility] ALBUMIN 3.0(L) 3.5 - 5.2 g/dL 06/23/2024 7:[address] [facility] BILIRUBIN TOTAL 0.2 0.2 - 1.0 mg/dL 06/23/2024 7:[address] [facility] ALKALINE PHOSPHATASE 79 35 - 104 U/L 06/23/2024 7:[address] [facility] AST 27 10 - 35 U/L 06/23/2024 7:[address] [facility] Comment:Hemolysis present. R esult may be falsely elevated. ALT 18 <=35 U/L 06/23/2024 7:[address] [facility] GFR 51 mL/min/1. 73 sq meter 06/23/2024 7:[address] [facility] Comment:eGFR calculated with 2020 CKD-EPI equation. Vegetarian diet, extremely high or low muscle mass, and may affect results. Cystatin C with Glomerular Filtration Rate is a suitable alternative for these patients. ANION GAP 9 9 - 20 mmol/L 06/23/2024 7:[address] [facility] Blood Venipuncture / Unknown 06/23/2024 7:16 AM CDT 06/23/2024 7:27 AM CDT us Karan Dove MD CHEMISTRY ORDERABLES Jessie l Result [facility] CLIA # [id number] [address] [place] [address] * (ABNORMAL) TROPONIN (06/23/2024 5:40 AM CDT) Only the most recent of3 resultswithin the time period is included. TROPONIN T, 5TH GEN 2,122(HH) <=10 ng/L 06/23/2024 6:[address] [facility] Blood Venipuncture / Unknown 06/23/2024 5:40 AM CDT 06/23/2024 6:01 AM CDT Narrative [facility] - 06/23/2024 6:40 AM CDT Troponin elevated. us Germain Lincoln MD CHEMISTRY ORDERABLES Final Resul t [facility] CLIA # [id number] [address] [place] [address] * EKG 12-LEAD (06/22/2024 6:19 PM CDT) Only the most recent of4 resultswithin the time period is included. 06/22/2024 6:19 PM CDT Narrative INTERFACE SYSTEM - 06/23/2024 8:26 PM [address]T [address] [address] Test Date: 2024-06-22 Pat Name: AB LÓPEZ Department: 12 Room: [address] [place] [address] Gender: Female Hospital Liaison: [email or web address] : 1950 Requested By: Order Number: [id number] Reading MD: Mario French Measurements Intervals [place] Rate: 76 P: 37 [place]: 164 QRS: -69 QRSD: 98 T: 120 QT: 428 QTc: 481 Interpretive Statements Sinus rhythm with premature atrial complexes Left axis deviation Minimal voltage criteria for LVH, may be normal variant ( [place] product ) Inferior infarct, age undetermined Anteroseptal infarct, age undetermined QTcB >= 480 msec Abnormal ECG Electronically Signed On 06-23-2024 20:26:54 CDT by Mario French Procedure Note Mario French MD - 06/23/[address] [address] Test Date: 2024-06-22 Pat Name: AB LÓPEZ Department: 12 Room: [address] [place] [address] Gender: Female Hospital Liaison: [email or web address] : 1950 Requested By: Order Number: [id number] Reading MD: Mario French Measurements Intervals [place] Rate: 76 P: 37 [place]: 164 QRS: -69 QRSD: 98 T: 120 QT: 428 QTc: 481 Interpretive Statements Sinus rhythm with premature atrial complexes Left axis deviation Minimal voltage criteria for LVH, may be normal variant ( [place] product) Inferior infarct, age undetermined Anteroseptal infarct, age undetermined QTcB >= 480 msec Abnormal ECG Electronically Signed On 06-23-2024 20:26:54 CDT by Mario French us Karan Dove MD ECG ORDERABLES Final Res ult INTERFACE SYSTEM Refer to clinic/hospital department * (ABNORMAL) BASIC METABOLIC PANEL (06/22/2024 7:10 AM CDT) Only the most recent of3 resultswithin the time period is included. SODIUM 131(L) 136 - 145 mmol/L 06/22/2024 8:[address] [facility] POTASSIUM 5.0 3.5 - 5.1 mmol/L 06/22/2024 8:[address] [facility] CHLORIDE 93(L) 98 - 107 mmol/L 06/22/2024 8:[address] [facility] CO2 27 22 - 29 mmol/L 06/22/2024 8:26 AM [facility] CALCIUM 8.9 8.8 - 10.2 mg/dL 06/22/2024 8:[address] [facility] BUN 50(H) 8 - 23 mg/dL 06/22/2024 8:26 AM [facility] CREATININE 1.44(H) 0.51 - 0.95 mg/dL 06/22/2024 8:26 AM [facility] Comment:The GFR result is no t clinically significant on patients <18 or >70 years of age. GLUCOSE 326(H) 74 - 99 mg/dL 06/22/2024 8:[address] [facility] GFR 39 mL/min/1. 73 sq meter 06/22/2024 8:26 AM [facility] Comment:eGFR calculated with 2020 CKD-EPI equation. Vegetarian diet, extremely high or low muscle mass, and may affect results. Cystatin C with Glomerular Filtration Rate is a suitable alternative for these patients. ANION GAP 11 9 - 20 mmol/L 06/22/2024 8:[address] [facility] Blood Venipuncture / Unknown 06/22/2024 7:10 AM CDT 06/22/2024 7:55 AM CDT Karan Dove MD CHEMISTRY ORDERABLES Jessie l Result Performing Organization Address City/[facility] Co de Phone Number [facility] CLIA # [id number] [address] [place] [id number] * LACTIC ACID (06/22/2024 6:34 AM CDT) Only the most recent of4 resultswithin the time period is included. LACTIC ACID 1.8 <=2.0 mmol/L 06/22/2024 7:[address] [facility] Blood Venipuncture / Unknown 06/22/2024 6:34 AM CDT 06/22/2024 6:44 AM CDT Germain Lincoln MD CHEMISTRY ORDERABLES Final Resul t Performing Organization Address City/[facility]/ZIP Co de Phone Number [facility] CLIA # [id number] [address] [address] * (ABNORMAL) POTASSIUM LEVEL (06/22/2024 4:10 AM CDT) POTASSIUM 5.3(H) 3.5 - 5.1 mmol/L 06/22/2024 5:[address] [facility] Blood Venipuncture / Unknown 06/22/2024 4:10 AM CDT 06/22/2024 4:53 AM CDT Rose Aguillon MD CHEMISTRY ORDERABLES Fi nal Result Performing Organization Address [facility]/ZIP Co de Phone Number [facility] CLIA # [id number] [address] [address] [place], [place] [address] * (ABNORMAL) TROPONIN 6 HR, 5TH GEN (06/21/2024 4:13 PM CDT) TROPONIN T, 6 HR 5TH GEN 2,393(HH) <11 ng/L 06/21/2024 5:[address] [facility] DELTA 6HR TROPONIN T % 16 See Interp. % 06/21/2024 5:[address] [facility] Blood Venipuncture / Unknown 06/21/2024 4:13 PM CDT 06/21/2024 4:[address] [facility] - 06/21/2024 5:35 PM CDT Troponin elevated. Delay in collection of timed specimen beyond recommended collection interval. Results must be interpreted in clinical context. Delta not changing. us Germain Lincoln MD CHEMISTRY ORDERABLES Final Resul t Performing Organization Address [facility] de Phone Number [facility] CLIA # [id number] [address] [address] * (ABNORMAL) RESPIRATORY PATHOGEN PCR PANEL (06/21/2024 3:18 PM CDT) Coronavirus OC43 by PCR DETECTED(A) Not Detected 06/21/2024 4:[address] [facility] COVID-19 PCR NOT DETECTED Not Detected 06/21/2024 4:[address] [facility] Upper Respiratory ENTIRE NASOPHARYNX / Unknown Collection / Unknown 06/21/2024 3:18 PM CDT 06/21/2024 3:[address] [facility] - 06/21/2024 4:36 PM CDT Positive respiratory panel called to 6D SANDRA CHAPARRO on 06/21/2024 at 4:27 PM with verbal readback. The Film Array Respiratory Panel (RP2.1) is a multiplex nucleic acid detection test for 22 targets. Viruses: Adenovirus Coronavirus HKU1, NL63, 229E, and OC43 COVID-19/Severe Acute Respiratory Syndrome Coronavirus 2 Influenza A with the following subtypes: H1, H1-2009, and H3 Influenza B Human Metapneumovirus Parainfluenza virus 1, 2, 3, and 4 Respiratory Syncytial virus (RSV) Rhinovirus/Enterovirus (cannot differentiate due to genetic similarities) Bacteria: Bordetella pertussis Bordetella parapertussis Chlamydophila pneumoniae Mycoplasma pneumoniae us Germain Lincoln MD MICROBIOLOGY - GENERAL ORDERABLE S Final Result Performing Organization Address City/[facility]/ZIP Co de Phone Number [facility] CLIA # [id number] [facility] [address] * BLOOD CULTURE (06/21/2024 12:07 PM CDT) Only the most recent of2 resultswithin the time period is included. BLOOD CULTURE No growth 06/26/2024 12:[address] [facility] Blood (Peripheral) Venipuncture / Unknown 06/21/2024 12:07 PM CDT 06/21/2024 12:13 PM CDT us Joselin Arriola MD MICROBIOLOGY - GENERAL ORDERABL ES Final Result Performing Organization Address [facility]/ZIP Co de Phone Number [facility] CLIA # [id number] [facility] [address] * (ABNORMAL) TROPONIN 2 HR, 5TH GEN (06/21/2024 11:40 AM CDT) [facility] [address] [facility] TROPONIN T, 2 HR 5TH GEN 2,063(HH) <=10 ng/L 06/21/2024 12:[address] [facility] DELTA 2HR TROPONIN T % 0 See Interp. % 06/21/2024 12:[address] [facility] Blood Venipuncture / Unknown 06/21/2024 11:40 AM CDT 06/21/2024 11:[address] [facility] - 06/21/2024 12:27 PM CDT Troponin elevated. Delay in collection of timed specimen beyond recommended collection interval. Results must be interpreted in clinical context. Delta not changing. us Joselin Arriola MD CHEMISTRY ORDERABLES Final Resu lt [facility] CLIA # [id number] [address] [place] [address] * (ABNORMAL) CBC WITHOUT DIFFERENTIAL (06/21/2024 11:40 AM CDT) [facility] [address] WBC 15.7(H) 4.8 - 10.8 K/uL 06/21/2024 11:[address] [facility] RBC 3.40(L) 4.20 - 5.40 M/uL 06/21/2024 11:[address] [facility] HEMOGLOBIN 9.4(L) 12.0 - 16.0 g/dL 06/21/2024 11:[address] [facility] HEMATOCRIT 30.3(L) 36.0 - 46.0 % 06/21/2024 11:[address] [facility] MCV 89.1 84.0 - 103.0 fL 06/21/2024 11:[address] [facility] MCH 27.6 27.0 - 34.0 pg 06/21/2024 11:[address] [facility] MCHC 31.0 30.0 - 35.0 g/dL 06/21/2024 11:[address] [facility] PLATELETS 161 140 - 440 K/uL 06/21/2024 11:[address] [facility] MPV 9.9 8.9 - 12.8 fL 06/21/2024 11:[address] [facility] RDW 15.0(H) 11.0 - 14.5 % 06/21/2024 11:[address] [facility] RDW-STDEV 48.8 37.0 - 54.0 fL 06/21/2024 11:[address] [facility] Blood Venipuncture / Unknown 06/21/2024 11:40 AM CDT 06/21/2024 11:51 AM CDT us Joselin Arriola MD HEMATOLOGY ORDERABLES Final Res ult Performing Organization Address City/[facility]/ZIP Co de Phone Number [facility] CLIA # [id number] [address] [address] * TSH (06/21/2024 11:40 AM CDT) [facility] [address] [facility] TSH 1.44 0.27 - 4.20 uIU/mL 06/21/2024 12:[address] [facility] Blood Venipuncture / Unknown 06/21/2024 11:40 AM CDT 06/21/2024 11:51 AM CDT us Germain Lincoln MD CHEMISTRY ORDERABLES Final Resul t [facility] CLIA # [id number] [address] [address] [place] [address] * (ABNORMAL) LIPID PANEL (06/21/2024 11:40 AM CDT) CHOLESTEROL 236(H) <200 mg/dL 06/21/2024 12:[address] [facility] TRIGLYCERIDE 150(H) <150 mg/dL 06/21/2024 12:[address] [facility] HDL 51 40 - 59 mg/dL 06/21/2024 12:[address] [facility] LDL CALCULATED 155(H) <100 mg/dL 06/21/2024 12:[address] [facility] NON-HDL CHOLESTEROL 185(H) <130 mg/dL 06/21/2024 12:[address] [facility] Blood Venipuncture / Unknown 06/21/2024 11:40 AM CDT 06/21/2024 11:[address] [facility] - 06/21/2024 12:37 PM CDT TOTAL CHOLESTEROL mg/dL Desirable <200 Borderline high 200-239 High >=240 TRIGLYCERIDES mg/dL Normal <150 Borderline high 150-199 High 200-499 Very high >=500 HDL CHOLESTEROL mg/dL Low <40 Normal 40-59 Desirable >=60 NON HDL CHOLESTEROL mg/dL Optimal <130 Near Optimal 130-159 Borderline High 160-189 Very High >=190 CALCULATED LDL mg/dL LDL <70, OPTIMAL if have Atherosclerotic cardiovascular disease (ASCVD) or intermediate or higher (>7.5%) 10 year risk of ASCVD including most adults with diabetes. LDL <100, Optimal in adult patients with low (<7.5%) 10 year ASCVD risk LDL 100-160, Suboptimal LDL >160, High LDL >190, Very high LDL calculated using the Friedewald equation. ATPIII Guidelines Reference Ranges for Lipid Panels (NCEP/AMA) . us Germain Lincoln MD CHEMISTRY ORDERABLES Final Resul t [facility] CLIA # [id number] [address] [place] [address] [place] [address] * (ABNORMAL) TROPONIN BASELINE, 5TH GEN (06/21/2024 9:22 AM CDT) TROPONIN T, BASELINE 5TH GEN 2,061(HH) <=10 ng/L 06/21/2024 10:[address] [facility] Blood Venipuncture / Unknown 06/21/2024 9:22 AM CDT 06/21/2024 9:37 AM CDT [facility] - 06/21/2024 10:16 AM CDT Troponin elevated. us Joselin Arriola MD CHEMISTRY ORDERABLES Final Resu lt [facility] CLIA # [id number] [facility] [address] [address] [place] [address] * (ABNORMAL) PROTIME-INR (06/21/2024 8:38 AM CDT) Pathologist [facility] PROTIME 17.7(H) 12.6 - 14.6 Seconds 06/21/2024 9:[address] [facility] INR 1.4(H) 0.8 - 1.2 06/21/2024 9:[address] [facility] Blood Venipuncture / Unknown 06/21/2024 8:38 AM CDT 06/21/2024 8:47 AM CDT [facility] - 06/21/2024 9:00 AM CDT Expected Values for INR: DVT/PE Goal INR 2.5; range 2.0 - 3.0 Valve Replacement Tissue Goal INR 2.5; range 2.0 - 3.0 Valve Replacement Mechanical Goal INR 3.0; range 2.5 - 3.5 POST-WY Goal INR 2.5; range 2.0 - 3.0 or Goal INR 3.0; range 2.5 - 3.5 Atrial Fibrillation Goal INR 2.5; range 2.0 - 3.0 Ischemic Stroke Goal INR 2.5; range 2.0 - 3.0 us Joselin Arriola MD HEMATOLOGY ORDERABLES Final Res ult [facility] [employer] [facility] CLIA # [id number] [place] [address] * XR CHEST PA OR AP 1 VW (06/21/2024 8:11 AM CDT) Anatomical Region Laterality Modality Chest Computed Radiogr aphy 06/21/2024 8:11 AM CDT Impressions 06/21/2024 8:15 AM CDT IMPRESSION: Cardiomegaly with pulmonary vascular congestion. Narrative 06/21/2024 8:15 AM CDT Exam: XR CHEST PA OR AP 1 VW Date/Time of Exam: 06/21/2024 8:11 AM Reason For Exam: Chest Pain. Diagnosis: See Reason for Exam. Findings: The cardiac silhouette is enlarged and atherosclerosis is noted of the aortic arch. Calcified granulomatous changes are present. There is central pulmonary vascular congestion without confluent airspace disease. The left costophrenic angle is excluded from the [id number]. No pneumothorax or definite pleural effusion. Procedure Note Michael Vu MD - 06/21/2024 Exam: XR CHEST PA OR AP 1 VW Date/Time of Exam: 06/21/2024 8:11 AM Reason For Exam: Chest Pain. Diagnosis: See Reason for Exam. Findings: The cardiac silhouette is enlarged and atherosclerosis is noted of the aortic arch. Calcified granulomatous changes are present. There is central pulmonary vascular congestion without confluent airspace disease. The left costophrenic angle is excluded from the [id number]. No pneumothorax or definite pleural effusion. IMPRESSION: Cardiomegaly with pulmonary vascular congestion. Joselin Arriola MD DIAGNOSTIC IMAGING ORDERABLES F inal Result * (ABNORMAL) BRAIN NATRIURETIC PEPTIDE, BNP OR PROBNP (06/21/2024 8:03 AM CDT) PROBNP, N TERMINAL 11,986(H) 0 - 125 pg/mL 06/21/2024 9:08 AM CDT [facility] [employer] [facility] Comment: INTERPRETIVE COMMENT based on diagnosis: Diagnostic NT pro-BNP cutoffs for Heart Failure in the absence of renal failure is suggested for the following ranges <75 years: <125 pg/mL >=75 years: <450 pg/mL Exclusionary rule out cut-point for Acute Decompensated Heart Failure(ADHF) All ages: <300 pg/mL Diagnostic NT pro-BNP cutoffs for Acute Decompensated Heart Failure(ADHF) in the absence of renal failure is suggested for the following ages <50 years: > 450 pg/mL 50-75 years: > 900 pg/mL >75 years: >1800 pg/mL Blood Venipuncture / Unknown 06/21/2024 8:03 AM CDT 06/21/2024 8:09 AM CDT us Joselin Arriola MD CHEMISTRY ORDERABLES Final Resu lt Performing Organization Address [facility] Co de Phone Number [facility] CLIA # [id number] [id number] [place] [phone] * (ABNORMAL) HEMOGLOBIN A1C (06/21/2024 8:03 AM CDT) HEMOGLOBIN A1C 8.5(H) <=5.6 % 06/23/2024 10:[address] [facility] EST. AVG GLUCOSE, A1C 197 mg/dL 06/23/2024 10:[address] [facility] Blood Venipuncture / Unknown 06/21/2024 8:03 AM CDT 06/21/2024 8:[address] [facility] - 06/23/2024 10:56 AM CDT HGB A1C INTERPRETATION NORMAL: <5.7% PRE-DIABETES: 5.7 - 6.4% DIABETES: 6.5% OR GREATER us Germain Lincoln MD CHEMISTRY ORDERABLES Final Resul t Performing Organization Address City/[facility]/ZIP Co de Phone Number [facility] CLIA # [id number] [id number] [place] [address] from Last 3 Months Insurance MEDICAID [place] Advance Directives For more information, please contact: [phone] * Full Code (Latest Code Status on File) Date Activated Date Inactivated Comments 06/21/2024 11:59 AM 06/24/2024 6:18 PM * Full Code Date Activated Date Inactivated Comments 03/28/2023 11:30 AM 04/12/2023 9:57 AM
--- OUTSIDE RECORDS SUMMARY | 2024-09-18 23:32 | XMS_ITS | Patient Health Record ---
Author Organization [facility] Address [address] [place] [address] Care Team Providers Care Certified Orthotist Name Role Phone Rafal Rodriguez Primary Care Provider Allergies Allergen (clinical drug ingredient) Drug/Non Drug Allergy documented on EMR Reaction Allergy Type Onset Date Status atorvastatin Atorvastatin Unknown Drug Allergy A ctive codeine Codeine Unknown Drug Allergy Active diphtheria toxoid vaccine, inactivated Diphtheria Toxoid Unknown Drug Allergy Ac tive Tetanus Toxoids Unknown Drug Allergy A ctive Reason For Referral No Information Medications Medication SIG (Take, Route, Frequency, Duration) Notes Start Date End Date Status Tylenol 325 MG as directed Orally Active Os-Fracisco 500-15 MG-MCG 1 tablet with a domingo l Orally Once a day Active Carvedilol 25 MG 1 tablet with food O rally Twice a day Active Apixaban 5 MG 1 tablet Orally Twic e a day Active Losartan Potassium 100 MG 1 tablet Orall y Once a day for 30 days Active Insulin Glargine 100 UNIT/ML 30 units Subcutaneous once daily for 30 days Active Ondansetron HCl 4 mg TAKE ONE TABLET BY MOUTH EVERY 6 HOURS NEEDED for 8 Active HumaLOG 100 UNIT/ML as directed moderate sliding scale ac w meals Subcutaneous daily for 30 days Active hydrALAZINE HCl 25 mg TAKE ONE TABLET BY MOUTH THREE TIMES DAILY with food for 30 Active Spiriva Respimat 2.5 MCG/ACT USE 2 INHALATIONS daily for 30 Active Bumetanide 2 mg TAKE ONE TABLET BY M OUTH EVERY DAY for 30 Active Eliquis 5 mg TAKE ONE TABLET BY M OUTH TWICE DAILY for 30 Active Entresto 49-51 MG TAKE 1 TABLET BY NOBLE TH TWICE DAILY for 30 Active metFORMIN HCl 1000 MG TAKE ONE TABLET BY MOUTH TWICE DAILY for 30 Active Clopidogrel Bisulfate 75 mg TAKE ONE TABLET BY MOUTH EVERY DAY for 30 Active amLODIPine Besylate 10 MG 1 tablet Orall y Once a day for 30 days Active Problems Problem Type SNOMED Code ICD Code Onset Dates Problem Status W/U Status Risk Notes Problem [id number] Type 2 diabetes mellitus without complication, unspecified whether fpc insulin use (E11.9) Active confirmed Problem [id number] Hypertension, unspecified type (I10) Active confirmed Encounters Encounter Location Date Provider Diagnosis [facility] [address] [place] [address] 10/16/2023 [facility] [address] [place] [address] 10/17/2023 [facility] [address] [place] [address] 10/18/2023 [facility] [address] [place] [address] 01/02/2024 [facility] [address] [place] [address] 03/10/2024 [facility] [address] [place] [address] 03/17/2024 [facility] [address] [place] [address] 09/28/2023 Christopher Rodriguez Hypertension, unspecified type I10 and Type 2 diabetes mellitus without complication, unspecified whether fpc insulin use E11.9 [place] [id number] [place] [facility] [address] [place] [address] 10/19/2023 Christopher Rodriguez Hypertension, unspecified type I10 and Type 2 diabetes mellitus without complication, unspecified whether fpc insulin use E11.9 [facility] [address] [place] [address] 11/23/2023 Christopher Rodriguez Hypertension, unspecified type I10 and Type 2 diabetes mellitus without complication, unspecified whether middle or intermediate school principal insulin use E11.9 [facility] [address] [place] [address] 12/21/2023 Christopher Rodriguez Hypertension, unspecified type I10 and Type 2 diabetes mellitus without complication, unspecified whether middle or intermediate school principal insulin use E11.9 [facility] [address] [place] [address] 01/18/2024 Christopher Rodriguez Hypertension, unspecified type I10 and Type 2 diabetes mellitus without complication, unspecified whether middle or intermediate school principal insulin use E11.9 [facility] [address] [place] [address] 02/22/2024 Christopher Rodriguez Hypertension, unspecified type I10 and Type 2 diabetes mellitus without complication, unspecified whether middle or intermediate school principal insulin use E11.9 [facility] [address] [facility] [address] [place] [address] 04/04/2024 Christopher Rodriguez Hypertension, unspecified type I10 and Type 2 diabetes mellitus without complication, unspecified whether middle or intermediate school principal insulin use E11.9 [place] [address] [facility] [address] [place] [address] 04/25/2024 Christopher Rodriguez Hypertension, unspecified type I10 and Type 2 diabetes mellitus without complication, unspecified whether middle or intermediate school principal insulin use E11.9 [place] [address] [facility] [address] [place] [address] 05/23/2024 Christopher Rodriguez Hypertension, unspecified type I10 and Type 2 diabetes mellitus without complication, unspecified whether middle or intermediate school principal insulin use E11.9 Assessments Encounter Date Diagnosis (ICD Code) Assessment Notes Treatment Notes Treatment Clinical Notes Section Notes 09/28/2023 Hypertension, unspecified type (ICD-10 - I10) 10/19/2023 Hypertension, unspecified type (ICD-10 - I10) 11/23/2023 Hypertension, unspecified type (ICD-10 - I10) 12/21/2023 Hypertension, unspecified type (ICD-10 - I10) 01/18/2024 Hypertension, unspecified type (ICD-10 - I10) 02/22/2024 Hypertension, unspecified type (ICD-10 - I10) 04/04/2024 Hypertension, unspecified type (ICD-10 - I10) 04/25/2024 Hypertension, unspecified type (ICD-10 - I10) 05/23/2024 Hypertension, unspecified type (ICD-10 - I10) Medications were reviewed. I will continue without changes. Nursing staff is to contact me with any symptoms arising. Orders signed and documented with nursing staff. Vitals taken and recorded at [facility]. 05/23/2024 Type 2 diabetes mellitus without complication, unspecified whether fpc insulin use (ICD-10 - E11.9) 04/25/2024 Type 2 diabetes mellitus without complication, unspecified whether fpc insulin use (ICD-10 - E11.9) 04/04/2024 Type 2 diabetes mellitus without complication, unspecified whether middle or intermediate school principal insulin use (ICD-10 - E11.9) 02/22/2024 Type 2 diabetes mellitus without complication, unspecified whether middle or intermediate school principal insulin use (ICD-10 - E11.9) 01/18/2024 Type 2 diabetes mellitus without complication, unspecified whether middle or intermediate school principal insulin use (ICD-10 - E11.9) 12/21/2023 Type 2 diabetes mellitus without complication, unspecified whether fpc insulin use (ICD-10 - E11.9) 11/23/2023 Type 2 diabetes mellitus without complication, unspecified whether middle or intermediate school principal insulin use (ICD-10 - E11.9) 10/19/2023 Type 2 diabetes mellitus without complication, unspecified whether fpc insulin use (ICD-10 - E11.9) 09/28/2023 Type 2 diabetes mellitus without complication, unspecified whether fpc insulin use (ICD-10 - E11.9) 09/28/2023 Other Medications reviewed, orders signed and documented with nursing staff. Vitals taken and recorded at [facility]. 10/19/2023 Other Medications reviewed, orders signed and documented with nursing staff. Vitals taken and recorded at [facility]. 11/23/2023 Other Medications reviewed, orders signed and documented with nursing staff. Vitals taken and recorded at [facility]. 12/21/2023 Other Medications reviewed, orders signed and documented with nursing staff. Vitals taken and recorded at [facility]. 01/18/2024 Other Medications reviewed, orders signed and documented with nursing staff. Vitals taken and recorded at [facility]. 02/22/2024 Other Medications reviewed, orders signed and documented with nursing staff. Vitals taken and recorded at [facility]. 04/04/2024 Other Medications reviewed, orders signed and documented with nursing staff. Vitals taken and recorded at [facility]. 04/25/2024 Other Medications reviewed, orders signed and documented with nursing staff. Vitals taken and recorded at [facility]. 05/23/2024 Other Plan Of Treatment No Information Insurance Providers Payer Name Payer Address Payer Phone Subscriber Number Group Number Insured Name Patient Relationship to Insured Coverage Start Date Coverage End Date [place] Medicaid [address] [place] [address] [id number] AB BOBBY Self - patient is the insured
[2024-09-18 23:47] LABS: Hematocrit 30.3 % (36-47); Hemoglobin 9.10 g/dL (11.27-16.99); Mean Corpuscular HGB Conc 30.0 g/dL (30-55); Mean Corpuscular Hemoglobin 24.0 pg (27-33); Mean Corpuscular Volume 79.9 fl (85-98); Nucleated Red Blood Cells % 0 %; Platelet Count 326 10^3/cmm (157-399); Red Blood Count 3.79 10^6/uL (3.85-5.65); White Blood Count 8.71 10^3/uL (3.29-11.43)
[2024-09-19 00:02] LABS: Troponin(5th) Baseline 28 ng/L (0-10)
[2024-09-19 00:07] LABS: Alanine Aminotransferase 10 U/L (0-33); Albumin Level 3.5 g/dL (3.5-5.2); Alkaline Phosphatase 81 U/L (35-105); Anion Gap 16.1 (5-19); Aspartate Amino Transferase 15 U/L (0-32); Blood Urea Nitrogen 44 mg/dL (8-23); Calcium 8.9 mg/dL (8.5-10.5); Carbon Dioxide 25 mmol/L (22-29); Chloride 98 mmol/L (98-107); Creatinine Clr Calc Pharmacy 48.7003; Globulin 3.3 g/dL (1.3-4.6); Glucose 143 mg/dL (65-115); Osmolality Calculated 294 mOsm/kg (285-295); Potassium 4.1 mmol/L (3.5-5.1); Sodium 135 mmol/L (136-145); Total Protein 6.8 g/dL (6.6-8.7)
[2024-09-19 00:27] VITALS: BP 127/50; PULSE 74; RESP 18; O2SAT 94
--- NOTE | 2024-09-19 01:24 | ECG_ITS ---
[employer] Test Date: 2024-09-19 Pat Name: Lady López Department: Room: Gender: Female Compensation Manager: : 1950 Requested By: Arvin Smith Order Number: [id number] Reading MD: Measurements Intervals [place] Rate: 71 P: 37 AK: 205 QRS: -49 QRSD: 110 T: 66 QT: 460 QTc: 501 Interpretive Statements SINUS RHYTHM LEFT AXIS DEVIATION [QRS AXIS < -30] SEPTAL MYOCARDIAL INFARCTION , PROBABLY OLD [40+ ms Q WAVE IN V1/V2] Compared to ECG 09/18/2024 23:29:18 Left-axis deviation now present Myocardial infarct finding still present [id number]
[2024-09-19 01:42] VITALS: BP 116/58; PULSE 64; RESP 18; O2SAT 96
[2024-09-19 01:49] LABS: Troponin 5 2HR 29.26 ng/L (0-10); Troponin 5 2HR Delta 1.26 ABS# (0-10)
--- NOTE | 2024-09-19 02:10 | W.ED.CHESTPA ---
HPI - Chest Pain General: Chief Complaint: Chest Pain Stated Complaint: Chest Pain, Arm Pain Time Seen by Provider: 09/18/24 23:27 History of Present Illness: 74-year-old female who presents emerged part with complaint of some midsternal chest pain that been ongoing for several hours. Did receive aspirin and nitro by long-term. States it did not help her pain much at the time. She states that has slowly improved since then however. She did have a recent [place]. Related Data Home Medications ?Medication ?Instructions ?Recorded ?Confirmed acetaminophen 500 mg capsule 1,000 mg PO Q8H PRN Pain 02/01/23 09/04/24 clopidogrel 75 mg tablet 75 mg PO DAILY 06/07/24 09/04/24 ondansetron HCl 4 mg tablet 4 mg PO Q6H PRN Nausea And Vomiting 06/07/24 09/04/24 polyethylene glycol 3350 17 17 g PO DAILY 06/07/24 09/04/24 gram/dose oral powder tiotropium bromide 2.5 2 puff inhalation DAILY 06/07/24 09/04/24 mcg/actuation mist for inhalation (Spiriva Respimat) calcium carbonate (Calcium Antacid) 200 mg PO BID PRN Indigestion 07/09/24 09/04/24 rosuvastatin 20 mg tablet 20 mg PO DAILY 07/09/24 09/04/24 albuterol sulfate 90 mcg/actuation 2 inh inhalation Q4H PRN shortness 09/04/24 09/04/24 aerosol inhaler of breath or wheezing calcium 500 mg (as 1 tab PO DAILY 09/04/24 09/04/24 carbonate)-vitamin D3 5 mcg (200 unit) tablet docusate sodium 100 mg tablet 100 mg PO BID 09/04/24 09/04/24 magnesium 200 mg tablet 200 mg PO BEDTIME 09/04/24 09/04/24 metformin 1,000 mg tablet 1,000 mg PO BIDWMEAL 09/04/24 09/04/24 metoprolol succinate 25 mg 25 mg PO DAILY 09/04/24 09/04/24 tablet,extended release 24 hr pantoprazole 40 mg tablet,delayed 40 mg PO DAILY 09/04/24 09/04/24 release quetiapine 50 mg tablet (Seroquel) 50 mg PO BEDTIME 09/04/24 09/04/24 ropinirole 1 mg tablet 1 mg PO BEDTIME 09/04/24 09/04/24 sucralfate 1 gram tablet 1 g PO DAILY@1700 09/04/24 09/04/24 tramadol 37.5 mg-acetaminophen 325 1 tab PO BID PRN Pain 09/04/24 09/04/24 mg tablet umeclidinium 62.5 mcg-vilanterol 1 inh inhalation DAILY 09/04/24 09/04/24 25 mcg/actuation powdr for inhalation (Anoro Ellipta) Previous Rx's ?Medication ?Instructions ?Recorded dapagliflozin propanediol 10 mg 10 mg PO DAILY #30 tabs 01/20/24 tablet (Farxiga) hydralazine 25 mg tablet 25 mg PO TID #90 tabs 01/20/24 apixaban 5 mg tablet (Eliquis) 2.5 mg (1/2 x 5 mg) PO BID #90 tabs 09/11/24 bumetanide 2 mg tablet 1 mg (1/2 x 2 mg) PO DAILY 30 days 09/11/24 #30 tabs buspirone 7.5 mg tablet 7.5 mg PO DAILY 30 days #0 tabs 09/11/24 Allergies Allergy/AdvReac Type Severity Reaction Status Date / Time codeine Allergy Unknown ADR-Diarrhe Verified 07/29/24 22:55 a tetanus and diphtheria Allergy Unknown Unknown Verified 07/29/24 22:55 toxoids atorvastatin Allergy ADR-Faintin Verified 07/29/24 22:55 g PFSH ED PFSH: Medical History Non-ST elevation (NSTEMI) myocardial infarction Fracture of left hip requiring operative repair Atherosclerosis of coronary artery Fracture, intertrochanteric, left femur Left radial head fracture Open fracture of distal ends of both radius and ulna Hearing loss Gastroparesis Orthostasis Supplemental oxygen dependent Failure to thrive in adult Hyperglycemia Anemia Hyponatremia Nausea & vomiting Dilation of pulmonary artery GERD (gastroesophageal reflux disease) Restless leg syndrome Presence of stent in coronary artery in patient with coronary artery disease Heart failure with preserved ejection fraction Altered mental status Diabetes CHF (congestive heart failure) Hyperlipidemia Pulmonary embolism DKA (diabetic ketoacidosis) Hypertensive urgency DM type 2 (diabetes mellitus, type 2) Arthritis Asthma HTN (hypertension) Small bowel mass Surgical History S/P ORIF (open reduction internal fixation) fracture Hx of cholecystectomy Family History Other Cancer Stroke Social History Smoking and tobacco/nicotine status: never used tobacco/nicotine Alcohol intake: never Substance/Drug Use: never Lives independently: Yes Household members: none Marital status: / Physical Exam Const: COMMON NORMALS: no acute distress, average body habitus, patient oriented x3, no limitations, healthy appearing, alert and well nourished Neck/C-Spine: COMMON NORMALS: no JVD Resp: COMMON NORMALS: normal respiratory effort, No retractions, No use of accessory muscles, clear to auscultation bilaterally and percussion normal AUSCULTATION: clear to auscultation bilaterally PERCUSSION: percussion normal Cardio: COMMON NORMALS: no JVD, regular rate, regular rhythm, S1 normal heart sound present, S2 normal heart sound present, No gallops present (Cardio), No clicks present (Cardio), No murmurs present (Cardio), No rub (Cardio) and Peripheral pulses 2+ throughout RATE: regular rate RHYTHM: regular rhythm HEART SOUNDS: S1 normal heart sound present and S2 normal heart sound present PERIPHERAL PULSES: Peripheral pulses 2+ throughout Neuro: COMMON NORMALS: patient oriented x3 SENSORIUM/ORIENTATION: Yes alert Course Vital Signs: Vital signs: Vital Signs Temperature 98.5 F 09/18/24 23:22 Pulse Rate 64 09/19/24 01:42 Respiratory Rate 18 09/19/24 01:42 Blood Pressure 116/58 09/19/24 01:42 Pulse Oximetry 96 09/19/24 01:42 Oxygen Delivery Me thod Room Air 09/18/24 23:22 MDM - Chest Pain Medical Decision Making Patient with chest pain earlier today. Did take aspirin and nitro with no pain relief. However since she has been here the pain has resolved and she is now sleeping comfortably. Patient did have recent [place]. EKG is nonischemic. Troponin is without any significant elevation or change between initial and delta troponin. As patient is now pain-free with nonischemic EKG and nonconcerning troponins we will go ahead and discharge patient back to follow-up with cardiology as outpatient. Lab Data 09/18/24 23:41 09/18/24 23:41 Radiology Impressions Chest X-Ray 09/18/24 23:24 IMPRESSION: Improving aeration in the lung bases with near-complete resolution of previously seen bilateral pleural effusions. No new airspace disease. Laboratory Results WBC 8.71 10^3/uL (3.29-11.43) 09/18/24 23: RBC 3.79 10^6/uL (3.85-5.65) L 09/18/24 23: Hgb 9.10 g/dL (11.27-16.99) L 09/18/24 23: Hct 30.3 % (36-47) L 09/18/24 23: MCV 79.9 fl (85-98) L 09/18/24 23: MCH 24.0 pg (27-33) L 09/18/24 23: MCHC 30.0 g/dL (30-55) 09/18/24 23: RDW 14.6 % (12.1-15.1) 09/18/24 23: Plt Count 326 10^3/cmm (157-399) 09/18/24 23: MPV 10.4 fL (7.4-10.4) 09/18/24 23:41 Neut % (Auto) 69.0 % 09/18/24 23:41 Lymph % (Auto) 21.1 % 09/18/24 23:41 Wayne % (Auto) 5.7 % 09/18/24 23:41 Eos % (Auto) 3.4 % 09/18/24 23:41 Baso % (Auto) 0.6 % 09/18/24 23:41 Neut # (Auto) 6.00 10^3/uL (1.8-7.7) 09/18/24 23: Lymph # (Auto) 1.8 10^3/uL (0.8-4.8) 09/18/24 23:41 Wayne # (Auto) 0.5 10^3/uL (0.2-0.9) 09/18/24 23:41 Eos # (Auto) 0.3 10^3/uL (0.0-0.8) 09/18/24 23:41 Baso # (Auto) 0.1 10^3/uL (0.0-0.1) 09/18/24 23:41 Nucleated RBC % (auto) 0 % 09/18/24 23:41 Nucleated RBCs # 0.0 /100WBC 09/18/24 23:41 Sodium 135 mmol/L (136-145) L 09/18/24 23:41 Potassium 4.1 mmol/L (3.5-5.1) 09/18/24 23:41 Chloride 98 mmol/L (98-107) 09/18/24 23:41 Carbon Dioxide 25 mmol/L (22-29) 09/18/24 23:41 Anion Gap 16.1 (5-19) 09/18/24 23:41 BUN 44 mg/dL (8-23) H 09/18/24 23:41 Creatinine 1.1 mg/dL (0.5-0.9) H 09/18/24 23:41 GFR Calculation Not Reportable 09/18/24 23:41 Glucose 143 mg/dL (65-115) H 09/18/24 23:41 Calculated Osmolality 294 mOsm/kg (285-295) 09/18/24 23:41 Calcium 8.9 mg/dL (8.5-10.5) 09/18/24 23:41 Total Bilirubin 0.2 mg/dL (0.15-1.2) 09/18/24 23:41 AST 15 U/L (0-32) 09/18/24 23:41 ALT 10 U/L (0-33) 09/18/24 23:41 Alkaline Phosphatase 81 U/L (35-105) 09/18/24 23:41 Troponin T Baseline 28 ng/L (0-10) H 09/18/24 23:41 Troponin T 120 Minute 29.26 ng/L (0-10) H 09/19/24 01:30 Delta Troponin T 1.26 ABS# (0-10) 09/19/24 01:30 Total Protein 6.8 g/dL (6.6-8.7) 09/18/24 23:41 Albumin 3.5 g/dL (3.5-5.2) 09/18/24 23:41 Globulin 3.3 g/dL (1.3-4.6) 09/18/24 23:41 All radiology interpretation(s) finalized by discharge Discharge Plan Discharge Patient Disposition: Home Clinical Impression: Chest pain Condition: Stable Prescriptions: No Action acetaminophen 500 mg capsule 1,000 mg PO Q8H PRN (Reason: Pain) calcium carbonate [Calcium Antacid] 200 mg calcium (500 mg) tablet,chewable 200 mg PO BID PRN (Reason: Indigestion) rosuvastatin 20 mg tablet 20 mg PO DAILY ropinirole 1 mg Tablet 1 mg PO BEDTIME tramadol-acetaminophen 37.5-325 mg Tablet 1 tab PO BID PRN (Reason: Pain) sucralfate 1 gram Tablet 1 g PO DAILY@1700 metformin 1,000 mg Tablet 1,000 mg PO BIDWMEAL metoprolol succinate 25 mg Tablet Extended Release 24 Hr 25 mg PO DAILY docusate sodium 100 mg Tablet 100 mg PO BID magnesium 200 mg Tablet 200 mg PO BEDTIME calcium carbonate-vitamin D3 500 mg-5 mcg (200 unit) Tablet 1 tab PO DAILY quetiapine [Seroquel] 50 mg Tablet 50 mg PO BEDTIME umeclidinium-vilanterol [Anoro Ellipta] 62.5-25 mcg/actuation Blister With Device 1 inh INHALATION DAILY pantoprazole 40 mg tablet,delayed release (DR/EC) 40 mg PO DAILY albuterol sulfate 90 mcg/actuation HFA aerosol inhaler 2 inh inhalation Q4H PRN (Reason: shortness of breath or wheezing) bumetanide 2 mg tablet 1 mg PO DAILY 30 Days Qty: 30 0RF buspirone 7.5 mg Tablet 7.5 mg PO DAILY 30 Days Qty: 0 0RF Eliquis 5 mg tablet 2.5 mg PO BID Qty: 90 3RF dapagliflozin propanediol [Farxiga] 10 mg tablet 10 mg PO DAILY Qty: 30 0RF hydralazine 25 mg tablet 25 mg PO TID Qty: 90 0RF ondansetron HCl 4 mg Tablet 4 mg PO Q6H PRN (Reason: Nausea And Vomiting) Spiriva Respimat 2.5 mcg/actuation Mist 2 puff INHALATION DAILY clopidogrel 75 mg tablet 75 mg PO DAILY Rx Instructions: TAKE 1 TABLET BY MOUTH EVERY DAY polyethylene glycol 3350 17 gram/dose Powder 17 g PO DAILY Discharge Orders: Discharge ED (Routine); Ordered 09/19/24 Ordered By: Arvin Smith Referrals: Mat Chirinos DO [Primary Care Provider, Family Practice] Discharge Diet: Advance as tolerated Discharge Activity: Resume usual activity Patient Instructions: Opioid Safety, Pain Management, Patient Portal & Ashley Instructions Print Language: Turkmen Coding Level of Care Code ED Panel Maker for Sasha Cox
[2024-09-19 04:00] VITALS: BP 148/77; PULSE 69; RESP 17; O2SAT 100
[2024-09-19 06:00] VITALS: BP 145/89; PULSE 71; RESP 20; O2SAT 97
[2024-09-19 07:27] VITALS: BP 144/78; PULSE 73; O2SAT 98
== END 2024-09-19 07:31 | disposition home or self-care (01) ==
PROVIDERS: Emergency Provider Emergency Medicine; PCP Electrodiagnostic Medicine
DX: R07.9 Chest pain, unspecified (principal); Z79.84 Long term (current) use of oral hypoglycemic drugs; Z79.01 Long term (current) use of anticoagulants; Z79.02 Long term (current) use of antithrombotics/antiplatelets; E78.5 Hyperlipidemia, unspecified; E11.9 Type 2 diabetes mellitus without complications; I11.0 Hypertensive heart disease with heart failure; I50.30 Unspecified diastolic (congestive) heart failure
CPT/HCPCS: 36415; 71045; 80053; 84484; 85025; 93005; 93010; 99285

== ENCOUNTER 2024-09-21 23:09 | Inpatient (IN) | payer MEDICAID, SELFPAY ==
[2024-09-21 23:10] VITALS: BP 106/56; PULSE 93; RESP 21; TEMP 36.6; O2SAT 91; BMI 34.1
--- NOTE | 2024-09-21 23:20 | ECG_ITS ---
[employer] Test Date: 2024-09-21 Pat Name: Lady López Department: Room: Gender: Female Steam [employer] Records Clerk: : 1950 Requested By: Jeronimo Lai Order Number: [id number] Reading MD: Measurements Intervals [place] Rate: 101 P: 92 NC: 190 QRS: -70 QRSD: 140 T: 94 QT: 396 QTc: 514 Interpretive Statements SINUS TACHYCARDIA LEFT AXIS DEVIATION [QRS AXIS < -30] POSSIBLE RIGHT VENTRICULAR CONDUCTION DELAY [RSR (QR) IN V1/V2] LEFT BUNDLE BRANCH BLOCK [120+ ms QRS DURATION, 80+ ms Q/S IN V1/V2, 85+ ms R IN I/aVL/V5/V6] Compared to ECG 09/19/2024 01:33:22 Left bundle-branch block now present Sinus rhythm no longer present Myocardial infarct finding no longer present [id number]
--- OUTSIDE RECORDS SUMMARY | 2024-09-21 23:29 | XMS_ITS | Clinical Summary ---
Author Organization [facility] Address [address] [place] [address] Phone Care Team Providers Care Brick Setter Name Role Phone Unavailable Primary Care Provider [...] CDT - 06/23/2024 8:24 AM CDT Surgery [facility] Cardiac Registered Land Surveyor [address] [place] [address] Yohana Sanz, Left heart cath 06/21/2024 7:30 AM CDT - 06/24/2024 4:08 PM CDT Hospital Encounter [facility] [place] 6D Neuro Trauma [facility] [address] [place] [address] Joselin Arriola MD Phelps, Jamie, MD [place], Hari Krishna, MD NSTEMI (non-ST elevated myocardial infarction) ([facility]) Discharge Disposition: Medicaid Nursing Facility from Last 3 Months Social History Tobacco [...] on file Legal 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 Gender Identity Not on file Sexual Orientation [...] 06/21/2025 06/21/2024 Medical Devices Implanted Type Area Monitor Tech Device Identifier Shelf Expiration Date Model / Serial / Lot Stent Alexey [place] Tushar 3.0x15mm Rx [id number] - [id number] Implanted:Qty: 1 on 06/23/2024 by Yohana Sanz DO at [facility] Stent Left: Coronary [employer] [id number] 04/14/2027 [id number] / / [id number] Stent Alexey [place] Tushar 3.0x8mm Rx [id number] - [id number] Implanted:Qty: 1 on 06/23/2024 by Yohana Sanz DO at [facility] Stent Left: Coronary [employer] [id number] 08/28/2026 [id number] / / [id number] Procedures Procedure Name Priority Date/Time Associated [...] CDT TROPONIN Routine 06/22/2024 12:43 AM CDT LIPID PANEL Stat 06/21/2024 11:40 AM CDT HEMOGLOBIN A1C Stat 06/21/2024 8:03 AM CDT from Last 3 Months or Most Recently Relevant to Health Maintenance Results * TELEMETRY REPORT (06/25/2024 3:55 PM CDT) us Provider Scanning ECG ORDERABLES Final Result * (ABNORMAL) POC GLUCOSE (06/24/2024 11:47 AM CDT) Only the most recent of14 resultswithin the time period is included. GLUCOSE POC 213(H) 74 - 99 mg/dL 06/24/2024 11:47 AM CDT [facility] SPECIMEN SOURCE, GLUCOSE POC Capillary 06/24/2024 11:47 AM CDT [facility] Blood, whole 06/24/2024 11:4 7 AM CDT 06/24/2024 12:00 PM CDT Karan Dove MD POINT OF CARE TESTING Fin al Result Performing Organization Address City/[facility]/ZIP Co de Phone Number [facility] CLIA # [id number] [address] [address] [place], [place] [address] * (ABNORMAL) PTT (06/24/2024 6:06 AM CDT) Only the most recent of5 resultswithin the time period is included. PTT 23.5(L) 24.8 - 37.2 seconds 06/24/2024 6:31 AM CDT [facility] Blood Venipuncture / Unknown 06/24/2024 6:06 AM CDT 06/24/2024 6:19 AM CDT Narrative [facility] - 06/24/2024 6:31 AM CDT Therapeutic Range: Hi-level PE/DVT heparin protocol 80.1 - 95.0 sec Lo-level PE/DVT heparin protocol 70.1 - 85.0 sec Cardiac Heparin Protocol 70.1 - 100.0 sec Karan Dove MD HEMATOLOGY ORDERABLES Fin al Result [facility] CLIA # [id number] [address] [address] * ECHO COMPLETE - CONTRAST AND STRAIN IF INDICATED (06/23/2024 10:30 AM CDT) EJECTION FRACTION 48 INTERFACE SYSTEM 06/23/2024 9:58 AM CDT [employer] INTERFACE SYSTEM - 06/23/2024 11:03 AM CDT [facility] Cardiovascular Services Echocardiography Laboratory [address] [place] [address] [place] [address] Transthoracic Echocardiography Patient: Ab López Study ID: ECHO COMPLETE - Gender: F : 1950 Age: 73 Room: [facility] Study Date: 06/23/2024 Pt Status: Inpatient Study Time: 09:58:51 AM CSN #: [id number] Ordering:Germain [place] Police Records Clerk: Veena Villa Indications and History: Coronary artery [...] (H) erinn values outside specified reference range. [facility] Echo Labs are accredited with the Intersocietal Accreditation Commission - Echocardiography. Prepared and Electronically Authenticated Fernando Beck MD Confirmed 06/23/2024 11:03 Procedure Note Fernando Beck MD - 06/23/2024 [facility] Cardiovascular Services Echocardiography Laboratory [address] [place] [address] Transthoracic Echocardiography Patient: Ab López Study ID: ECHOCOMPLETE - Gender: F : 1950 Age: 73 Room: [facility] Study Date: 06/23/2024 Pt Status: Inpatient Study Time: 09:58:51 AM CSN #: [id number] Ordering:Germain [place] Police Records Clerk: Veena Villa Indications and History: Coronary artery [...] (H) erinn values outside specified reference range. [facility] Echo Labs are accredited with theIntersocietal Accreditation Commission - Echocardiography. Prepared and Electronically Authenticated Fernando Beck MD Confirmed 06/23/2024 11:03 us Germain Lincoln MD ORDERABLES Final Result INTERFACE SYSTEM Refer to clinic/hospital department * LEFT HEART CATH, PERCUTANEOUS CORONARY INTERVENTION, IVUS-CORONARY INTRAVASCULAR (06/23/2024 8:26 AM CDT) 06/23/2024 7:37 AM CDT Narrative [facility] - 06/23/2024 4:06 PM CDT Prox LAD [...] RX US EUPHORA 3.0X10MM LPRFL LT PTCA [id number] Stent: Drug-eluting stent was successfully placed. The stent used was a STENT ALEXEY FRONTIER TUSHAR 3.0X15MM RX [id number]. Overlapping previous stent Post-Intervention Lesion Assessment: The intervention was successful. The guidewire crossed the lesion. Device was deployed. Post-intervention RADU flow is 3. There were no complications. There is a 0% residual stenosis post intervention. Ost Cx lesion: Angioplasty: Pre-stent angioplasty was performed. Angioplasty was performed prior to stent deployment. Supplies Used: BALLN RX US EUPHORA 3.0X10MM LPRFL LT PTCA [id number]; STENT ALEXEY FRONTIER TUSHAR 3.0X8MM RX [id number] Angioplasty: Post-stent angioplasty was performed. Angioplasty was performed following stent deployment. A standard balloon was used in the main branch. Supplies Used: CATH BALLN PTCA 3.0X8MM [employer] NH24 CORONARY [id number] Post-Intervention Lesion Assessment: The intervention was successful. The guidewire crossed the lesion. Device was deployed. Post-intervention RADU flow is 3. There were no complications. There is a 0% residual stenosis post intervention. Estimated Blood Loss There was minimal blood loss during procedure. PCI RISK [facility] Frailty Score: Mildly Frail (Evident slowing, Require some assistance with all ADLs). NYHA Class: Class II: Slight limitation of physical activity. Comfortable at rest, but ordinary physical activity results in symptoms of HF. (ESCOBAR, walking more than 2 blocks would cause ESCOBAR) CV Instability: persistent ischemic symptoms (chest pain, SOBIA). PAD: Unknown. Cerebrovascular Disease History: Ischemic stroke Yohana Sanz DO CUP CATH ORDERABLES Jessie joaquin Result Performing Organization Address [facility]/ZIP Co de Phone Number [facility] CLIA [id number] [address] [facility] [address] [place] [phone], * (ABNORMAL) POC ACTIVATED CLOTTING TIME (06/23/2024 8:09 AM CDT) [facility] ACTIVATED CLOTTING TIME POC 256(H) 116 - 140 sec 06/23/2024 8:09 AM CDT [facility] Blood 06/23/2024 8:09 AM CDT 06/23/2024 8:31 AM CDT Karan Dove MD POINT OF CARE TESTING Fin al Result Performing Organization Address [facility] Co de Phone Number [facility] CLIA # [id number] [address] [facility] [place] [address] * (ABNORMAL) CBC WITH DIFFERENTIAL (06/23/2024 7:16 AM CDT) Only the most recent of2 resultswithin the time period is included. [facility] WBC 15.6(H) 4.8 - 10.8 K/uL 06/23/2024 7:32 AM [facility] RBC 3.59(L) 4.20 - 5.40 M/uL 06/23/2024 7:32 AM [facility] HEMOGLOBIN 10.1(L) 12.0 - 16.0 g/dL 06/23/2024 7:32 AM [facility] HEMATOCRIT 32.2(L) 36.0 - 46.0 % 06/23/2024 7:32 AM [facility] MCV 89.7 84.0 - 103.0 fL 06/23/2024 7:32 AM [facility] MCH 28.1 27.0 - 34.0 pg 06/23/2024 7:32 AM [facility] MCHC 31.4 30.0 - 35.0 g/dL 06/23/2024 7:32 AM [facility] PLATELETS 280 140 - 440 K/uL [...] 0 - 2 % 06/23/2024 7:32 AM CDT [facility] NEUTROPHIL ABSOLUTE 12.16(H) 2.00 - 8.00 K/uL 06/23/2024 7:32 AM CDT [facility] LYMPHOCYTE ABSOLUTE 2.21 1.20 - 4.00 K/uL 06/23/2024 7:32 AM CDT [facility] MONOCYTE ABSOLUTE 1.04(H) 0.10 - 0.60 K/uL 06/23/2024 7:32 AM CDT [facility] EOSINOPHIL ABSOLUTE 0.06 0.00 - 0.70 K/uL 06/23/2024 7:32 AM CDT [facility] BASOPHILS ABSOLUTE 0.01 0.00 - 0.20 K/uL 06/23/2024 7:32 AM CDT [facility] IMMATURE GRANULOCYTES ABSOLUTE 0.09 0.00 - 0.10 K/uL 06/23/2024 7:32 AM CDT [facility] SMEAR REVIEWED: NA - Not Applicable 06/23/2024 7:32 AM CDT [facility] Blood Venipuncture / Unknown 06/23/2024 7:16 AM CDT 06/23/2024 7:27 AM CDT us Karan Dove MD HEMATOLOGY ORDERABLES Fin al Result [facility] CLIA # [id number] [address] [place] [address] * (ABNORMAL) COMPREHENSIVE METABOLIC PANEL (06/23/2024 7:16 AM CDT) SODIUM 132(L) 136 - 145 mmol/L 06/23/2024 7:59 AM CDT [facility] POTASSIUM 5.0 3.5 - 5.1 mmol/L 06/23/2024 7:59 AM CDT [facility] CHLORIDE 97(L) 98 - 107 mmol/L 06/23/2024 7:59 AM CDT [facility] CO2 26 22 - 29 mmol/L 06/23/2024 7:59 AM [facility] CALCIUM 8.6(L) 8.8 - 10.2 mg/dL 06/23/2024 7:59 AM [facility] BUN 44(H) 8 - 23 mg/dL 06/23/2024 7:59 AM [facility] CREATININE 1.14(H) 0.51 - 0.95 mg/dL 06/23/2024 7:59 AM [facility] Comment:The GFR result is no t clinically significant on patients <18 or >70 years of age. GLUCOSE 196(H) 74 - 99 mg/dL 06/23/2024 7:59 AM [facility] TOTAL PROTEIN 5.9(L) 6.4 - 8.3 g/dL 06/23/2024 7:59 AM [facility] ALBUMIN 3.0(L) 3.5 - 5.2 g/dL 06/23/2024 7:59 AM [facility] BILIRUBIN TOTAL 0.2 0.2 - 1.0 mg/dL 06/23/2024 7:59 AM [facility] ALKALINE PHOSPHATASE 79 35 - 104 U/L 06/23/2024 7:59 AM [facility] AST 27 10 - 35 U/L 06/23/2024 7:59 AM [facility] Comment:Hemolysis present. R esult may be falsely elevated. ALT 18 <=35 U/L 06/23/2024 7:59 AM [facility] GFR 51 mL/min/1. 73 sq meter 06/23/2024 7:59 AM [facility] Comment:eGFR calculated with 2020 CKD-EPI equation. Vegetarian diet, extremely high or low muscle mass, and may affect results. Cystatin C with Glomerular Filtration Rate is a suitable alternative for these patients. ANION GAP 9 9 - 20 mmol/L 06/23/2024 7:59 AM [facility] Blood Venipuncture / Unknown 06/23/2024 7:16 AM CDT 06/23/2024 7:27 AM CDT us Karan Dove MD CHEMISTRY ORDERABLES Jessie l Result Performing Organization Address [facility] Co de Phone Number [facility] CLIA # [id number] [address] [facility] [place] [address] * (ABNORMAL) TROPONIN (06/23/2024 5:40 AM CDT) Only the most recent of3 resultswithin the time period is included. TROPONIN T, 5TH GEN 2,122(HH) <=10 ng/L 06/23/2024 6:40 AM CDT [facility] Blood Venipuncture / Unknown 06/23/2024 5:40 AM CDT 06/23/2024 6:01 AM CDT Narrative [facility] - 06/23/2024 6:40 AM CDT Troponin elevated. us Germain Lincoln MD CHEMISTRY ORDERABLES Final Resul t Performing Organization Address [facility] Co de Phone Number [facility] CLIA # [id number] [address] [address] * EKG 12-LEAD (06/22/2024 6:19 PM CDT) Only the most recent of2 resultswithin the time period is included. 06/22/2024 6:19 PM CDT [employer] [facility] - 06/23/2024 8:26 PM CDT [address] [address] Test Date: 2024-06-22 Pat Name: AB LÓPEZ Department: 12 Room: [address] [place] [address] Gender: Female Supervisor [employer]: [email or web address] : 1950 Requested By: Order Number: [id number] Reading MD: Mario French Measurements Intervals [place] Rate: 76 P: 37 SC: 164 QRS: -69 QRSD: 98 T: 120 QT: 428 QTc: 481 Interpretive Statements Sinus rhythm with premature atrial complexes Left axis deviation Minimal voltage criteria for LVH, may be normal variant ( [place] product ) Inferior infarct, age undetermined Anteroseptal infarct, age undetermined QTcB >= 480 msec Abnormal ECG Electronically Signed On 06-23-2024 20:26:54 CDT by Mario French Procedure Note Mario French MD - 06/23/[address] [address] Test Date: 2024-06-22 Pat Name: AB LÓPEZ Department: 12 Room: [address] [place] [address] Gender: Female Supervisor [employer]: [email or web address] : 1950 Requested By: Order Number: [id number] Reading MD: Mario French Measurements Intervals [place] Rate: 76 P: 37 SC: 164 QRS: -69 QRSD: 98 T: 120 QT: 428 QTc: 481 Interpretive Statements Sinus rhythm with premature atrial complexes Left axis deviation Minimal voltage criteria for LVH, may be normal variant ( Ethan product) Inferior infarct, age undetermined Anteroseptal infarct, age undetermined QTcB >= 480 msec Abnormal ECG Electronically Signed On 06-23-2024 20:26:54 CDT by Mario French us Karan Dove MD ECG ORDERABLES Final Res ult INTERFACE SYSTEM Refer to clinic/hospital department * (ABNORMAL) BASIC METABOLIC PANEL (06/22/2024 7:10 AM CDT) Only the most recent of2 resultswithin the time period is included. SODIUM 131(L) 136 - 145 mmol/L 06/22/2024 8:26 AM CDT [facility] POTASSIUM 5.0 3.5 - 5.1 mmol/L 06/22/2024 8:26 AM CDT [facility] CHLORIDE 93(L) 98 - 107 mmol/L 06/22/2024 8:26 AM T [facility] CO2 27 22 - 29 mmol/L 06/22/2024 8:26 AM T [facility] CALCIUM 8.9 8.8 - 10.2 mg/dL 06/22/2024 8:26 AM T [facility] BUN 50(H) 8 - 23 mg/dL 06/22/2024 8:26 AM T [facility] CREATININE 1.44(H) 0.51 - 0.95 mg/dL 06/22/2024 8:26 AM [facility] Comment:The GFR result is no t clinically significant on patients <18 or >70 years of age. GLUCOSE 326(H) 74 - 99 mg/dL 06/22/2024 8:26 AM [facility] GFR 39 mL/min/1. 73 sq meter 06/22/2024 8:26 AM [facility] Comment:eGFR calculated with 2020 CKD-EPI equation. Vegetarian diet, extremely high or low muscle mass, and may affect results. Cystatin C with Glomerular Filtration Rate is a suitable alternative for these patients. ANION GAP 11 9 - 20 mmol/L 06/22/2024 8:26 AM T [facility] Blood Venipuncture / Unknown 06/22/2024 7:10 AM CDT 06/22/2024 7:55 AM CDT Karan Dove MD CHEMISTRY ORDERABLES Jessie l Result [facility] CLIA # [id number] [address] [place] [address] [place] [address] * LACTIC ACID (06/22/2024 6:34 AM CDT) LACTIC ACID 1.8 <=2.0 mmol/L 06/22/2024 7:12 AM T [facility] Blood Venipuncture / Unknown 06/22/2024 6:34 AM CDT 06/22/2024 6:44 AM CDT Germain Lincoln MD CHEMISTRY ORDERABLES Final Resul t Performing Organization Address [facility]/ZIP Co de Phone Number [facility] CLIA # [id number] [address] [address] [place] [address] * (ABNORMAL) POTASSIUM LEVEL (06/22/2024 4:10 AM CDT) POTASSIUM 5.3(H) 3.5 - 5.1 mmol/L 06/22/2024 5:24 AM CDT [facility] Blood Venipuncture / Unknown 06/22/2024 4:10 AM CDT 06/22/2024 4:53 AM CDT us Rose Aguillon MD CHEMISTRY ORDERABLES Fi nal Result Performing Organization Address City/[facility]/ZIP Co de Phone Number [facility]ICAL [employer]CH[employer]IES [facility] CLIA # [id number] [address] [address] * (ABNORMAL) LIPID PANEL (06/21/2024 11:40 AM CDT) CHOLESTEROL 236(H) <200 mg/dL 06/21/2024 12:37 PM CDT [facility] TRIGLYCERIDE 150(H) <150 mg/dL 06/21/2024 12:37 PM CDT [facility] HDL 51 40 - 59 mg/dL 06/21/2024 12:37 PM CDT [facility] LDL CALCULATED 155(H) <100 mg/dL 06/21/2024 12:37 PM CDT [facility] NON-HDL CHOLESTEROL 185(H) <130 mg/dL 06/21/2024 12:37 PM CDT [facility] Blood Venipuncture / Unknown 06/21/2024 11:40 AM CDT 06/21/2024 11:51 AM CDT [facility] - 06/21/2024 12:37 PM CDT TOTAL CHOLESTEROL [...] Lincoln MD CHEMISTRY ORDERABLES Final Resul t [id number] [address] [place] [address] * (ABNORMAL) HEMOGLOBIN A1C (06/21/2024 8:03 AM CDT) HEMOGLOBIN A1C 8.5(H) <=5.6 % 06/23/2024 10:56 AM CDT [facility] EST. AVG GLUCOSE, A1C 197 mg/dL 06/23/2024 10:56 AM CDT [facility] Blood Venipuncture / Unknown 06/21/2024 8:03 AM CDT 06/21/2024 8:09 AM CDT [employer] [facility] CRITICAL TECHNOLOGIES [facility] - 06/23/2024 10:56 AM CDT HGB A1C INTERPRETATION NORMAL: <5.7% PRE-DIABETES: 5.7 - 6.4% DIABETES: 6.5% OR GREATER us Germain Lincoln MD CHEMISTRY ORDERABLES Final Resul t [facility] CLIA # [id number] [address] [facility] [place] [address] from Last 3 Months or Most Recently Relevant to Health Maintenance Insurance MEDICAID [place] Advance Directives For more information, please contact: [phone] * Full Code (Latest Code Status on File) Date Activated Date Inactivated Comments 06/21/2024 11:59 AM 06/24/2024 6:18 PM * Full Code Date Activated Date Inactivated Comments 03/28/2023 11:30 AM 04/12/2023 9:57 AM
--- OUTSIDE RECORDS SUMMARY | 2024-09-21 23:29 | XMS_ITS | Patient Health Record ---
Author Organization [facility] Address [address] [place] [address] Care Team Providers Care Framework Developer Name Role Phone Rafal Rodriguez Primary Care [...] Problem Status W/U Status Risk Notes Problem [id number] Type 2 diabetes mellitus without complication, unspecified whether penitentiary insulin use (E11.9) Active confirmed Problem [id number] Hypertension, unspecified type (I10) Active confirmed Encounters Encounter Location Date Provider Diagnosis [facility] [address] [place] [address] 10/16/2023 [facility] [address] [place] [address] 10/17/2023 [facility] [address] [place] [address] 10/18/2023 [facility] [address] [place] [address] 01/02/2024 [facility] [address] [place] [address] 03/10/2024 [facility] [address] [place] [address] 03/17/2024 [facility] [address] [place] [id number] 09/28/2023 Christopher Rodriguez Hypertension, unspecified type I10 and Type 2 diabetes mellitus without complication, unspecified whether penitentiary insulin use E11.9 [place] [id number] [place] [facility] [address] [place] [id number] 10/19/2023 Christopher Rodriguez Hypertension, unspecified type I10 and Type 2 diabetes mellitus without complication, unspecified whether penitentiary insulin use E11.9 [facility] [address] [place] [id number] 11/23/2023 Christopher Rodriguez Hypertension, unspecified type I10 and Type 2 diabetes mellitus without complication, unspecified whether assistant terminal manager insulin use E11.9 [facility] [address] [place] [address] 12/21/2023 Christopher Rodriguez Hypertension, unspecified type I10 and Type 2 diabetes mellitus without complication, unspecified whether assistant terminal manager insulin use E11.9 [facility] [address] [place] [address] 01/18/2024 Christopher Rodriguez Hypertension, unspecified type I10 and Type 2 diabetes mellitus without complication, unspecified whether assistant terminal manager insulin use E11.9 [place] [id number] [place] [address] 02/22/2024 Christopher Rodriguez Hypertension, unspecified type I10 and Type 2 diabetes mellitus without complication, unspecified whether assistant terminal manager insulin use E11.9 [facility] [address] [place] [address] 04/04/2024 Christopher Rodriguez Hypertension, unspecified type I10 and Type 2 diabetes mellitus without complication, unspecified whether assistant terminal manager insulin use E11.9 [place] [id number] [place] [address] 04/25/2024 Christopher Rodriguez Hypertension, unspecified type I10 and Type 2 diabetes mellitus without complication, unspecified whether assistant terminal manager insulin use E11.9 [place] [id number] [facility] [address] [place] [address] 05/23/2024 Christopher Rodriguez Hypertension, unspecified type I10 and Type 2 diabetes mellitus without complication, unspecified whether assistant terminal manager insulin use E11.9 Assessments Encounter Date Diagnosis [...] 04/04/2024 Hypertension, unspecified type (ICD-10 - I10) 05/23/2024 Hypertension, unspecified type (ICD-10 - I10) Medications were reviewed. I will continue without changes. Nursing staff is to contact me with any symptoms arising. Orders signed and documented with nursing staff. Vitals taken and recorded at [facility]. 04/25/2024 Hypertension, unspecified type (ICD-10 - I10) 04/25/2024 Type 2 diabetes mellitus without complication, unspecified whether penitentiary insulin use (ICD-10 - E11.9) 05/23/2024 Type 2 diabetes mellitus without complication, unspecified whether penitentiary insulin use (ICD-10 - E11.9) 04/04/2024 Type 2 diabetes mellitus without complication, unspecified whether assistant terminal manager insulin use (ICD-10 - E11.9) 02/22/2024 Type 2 diabetes mellitus without complication, unspecified whether assistant terminal manager insulin use (ICD-10 - E11.9) 01/18/2024 Type 2 diabetes mellitus without complication, unspecified whether assistant terminal manager insulin use (ICD-10 - E11.9) 12/21/2023 Type 2 diabetes mellitus without complication, unspecified whether penitentiary insulin use (ICD-10 - E11.9) 11/23/2023 Type 2 diabetes mellitus without complication, unspecified whether assistant terminal manager insulin use (ICD-10 - E11.9) 10/19/2023 Type 2 diabetes mellitus without complication, unspecified whether penitentiary insulin use (ICD-10 - E11.9) 09/28/2023 Type 2 diabetes mellitus without complication, unspecified whether penitentiary insulin use (ICD-10 - E11.9) 09/28/2023 Other Medications reviewed, orders signed and documented with nursing staff. Vitals taken and recorded at [facility]. 10/19/2023 Other Medications reviewed, orders signed and documented with nursing staff. Vitals taken and recorded at [facility]. 11/23/2023 Other Medications reviewed, orders signed and documented with nursing staff. Vitals taken and recorded at [facility]. 12/21/2023 Other Medications reviewed, orders signed and documented with nursing staff. Vitals taken and recorded at [facility]. 01/18/2024 Other Medications reviewed, orders signed and documented with nursing staff. Vitals taken and recorded at [facility]. 02/22/2024 Other Medications reviewed, orders signed and documented with nursing staff. Vitals taken and recorded at [facility]. 04/04/2024 Other Medications reviewed, orders signed and documented with nursing staff. Vitals taken and recorded at [facility]. 04/25/2024 Other Medications reviewed, orders signed and documented with nursing staff. Vitals taken and recorded at [facility]. 05/23/2024 Other Plan Of Treatment No Information Insurance Providers Payer Name Payer Address Payer Phone Subscriber Number Group Number Insured Name Patient Relationship to Insured Coverage Start Date Coverage End Date [place] Medicaid [address] [place] [address] [id number] AB BOBBY Self - patient is the insured
[2024-09-21 23:30] VITALS: BP 111/64; PULSE 102; RESP 18; O2SAT 96
--- NOTE | 2024-09-21 23:30 | XRR_ITS ---
PROCEDURE INFORMATION: Exam: XR Chest Exam date and time: 09/21/2024 11:39 PM Age: 74 years old Clinical indication: Shortness of breath; Additional info: SOB TECHNIQUE: Imaging protocol: Radiologic exam of the chest. Views: 1 view. COMPARISON: CR (CHEST, ) 09/18/2024 11:37 PM FINDINGS: Lungs: Unremarkable. No consolidation. Pleural spaces: Small left and trace right pleural effusions. No pneumothorax. Heart/Mediastinum: The heart is stable in size. Coronary artery calcification present. Bones/joints: Degenerative changes involve the spine and shoulders. XR/XR chest 1V portable [id number] IMPRESSION: Small left and trace right pleural effusions.
[2024-09-21] MEDS: ondansetron 2 mg/ML SDV 2 mL 4 MG IVP (23:37)
[2024-09-21 23:39] VITALS: RESP 24
[2024-09-21] MEDS: morphine 4 mg/mL SDV 1 mL 2 MG IVP (23:39)
[2024-09-21 23:41] LABS: Hematocrit 33.0 % (36-47); Hemoglobin 9.80 g/dL (11.27-16.99); Mean Corpuscular HGB Conc 29.7 g/dL (30-55); Mean Corpuscular Hemoglobin 23.8 pg (27-33); Mean Corpuscular Volume 80.1 fl (85-98); Nucleated Red Blood Cells % 0 %; Platelet Count 353 10^3/cmm (157-399); Red Blood Count 4.12 10^6/uL (3.85-5.65); White Blood Count 11.25 10^3/uL (3.29-11.43)
[2024-09-21 23:50] LABS: INR 0.98 (0.8-1.2); Prothrombin Time 13.60 SECONDS (12.1-14.9)
[2024-09-21 23:51] LABS: Partial Thromboplastin Time 28.0 SECONDS (23.9-36.7)
[2024-09-21 23:56] LABS: Troponin(5th) Baseline 67 ng/L (0-10)
[2024-09-22] VITALS (69 sets, daily range): BP systolic 92–139; BP diastolic 53–77; PULSE 82–105; RESP 17–34; TEMP 36.7; O2SAT 89–99
--- NOTE | 2024-09-22 00:04 | W.ED.CHESTPA ---
HPI - Chest Pain General: Chief Complaint: ER Hold Stated Complaint: CHEST PAIN Time Seen by Provider: 09/21/24 23:14 History of Present Illness: 74-year-old female with a history of heart failure and COPD. She presents with chest pain radiating into her back and both shoulders which she has had all day . She is moaning in pain. She denies cough. She is somewhat of a poor historian. She had a recent admission for heart failure. Related Data Home Medications ?Medication ?Instructions ?Recorded ?Confirmed acetaminophen 500 mg capsule 1,000 mg PO Q8H PRN Pain 02/01/23 09/04/24 clopidogrel 75 mg tablet 75 mg PO DAILY 06/07/24 09/04/24 ondansetron HCl 4 mg tablet 4 mg PO Q6H PRN Nausea And Vomiting 06/07/24 09/04/24 polyethylene glycol 3350 17 17 g PO DAILY 06/07/24 09/04/24 gram/dose oral powder tiotropium bromide 2.5 2 puff inhalation DAILY 06/07/24 09/04/24 mcg/actuation mist for inhalation (Spiriva Respimat) calcium carbonate (Calcium Antacid) 200 mg PO BID PRN Indigestion 07/09/24 09/04/24 rosuvastatin 20 mg tablet 20 mg PO DAILY 07/09/24 09/04/24 albuterol sulfate 90 mcg/actuation 2 inh inhalation Q4H PRN shortness 09/04/24 09/04/24 aerosol inhaler of breath or wheezing calcium 500 mg (as 1 tab PO DAILY 09/04/24 09/04/24 carbonate)-vitamin D3 5 mcg (200 unit) tablet docusate sodium 100 mg tablet 100 mg PO BID 09/04/24 09/04/24 magnesium 200 mg tablet 200 mg PO BEDTIME 09/04/24 09/04/24 metformin 1,000 mg tablet 1,000 mg PO BIDWMEAL 09/04/24 09/04/24 metoprolol succinate 25 mg 25 mg PO DAILY 09/04/24 09/04/24 tablet,extended release 24 hr pantoprazole 40 mg tablet,delayed 40 mg PO DAILY 09/04/24 09/04/24 release quetiapine 50 mg tablet (Seroquel) 50 mg PO BEDTIME 09/04/24 09/04/24 ropinirole 1 mg tablet 1 mg PO BEDTIME 09/04/24 09/04/24 sucralfate 1 gram tablet 1 g PO DAILY@1700 09/04/24 09/04/24 tramadol 37.5 mg-acetaminophen 325 1 tab PO BID PRN Pain 09/04/24 09/04/24 mg tablet umeclidinium 62.5 mcg-vilanterol 1 inh inhalation DAILY 09/04/24 09/04/24 25 mcg/actuation powdr for inhalation (Anoro Ellipta) Previous Rx's ?Medication ?Instructions ?Recorded dapagliflozin propanediol 10 mg 10 mg PO DAILY #30 tabs 01/20/24 tablet (Farxiga) hydralazine 25 mg tablet 25 mg PO TID #90 tabs 01/20/24 apixaban 5 mg tablet (Eliquis) 2.5 mg (1/2 x 5 mg) PO BID #90 tabs 09/11/24 bumetanide 2 mg tablet 1 mg (1/2 x 2 mg) PO DAILY 30 days 09/11/24 #30 tabs buspirone 7.5 mg tablet 7.5 mg PO DAILY 30 days #0 tabs 09/11/24 Allergies Allergy/AdvReac Type Severity Reaction Status Date / Time codeine Allergy Unknown ADR-Diarrhe Verified 07/29/24 22:55 a tetanus and diphtheria Allergy Unknown Unknown Verified 07/29/24 22:55 toxoids atorvastatin Allergy ADR-Faintin Verified 07/29/24 22:55 g PFSH ED PFSH: Medical History Non-ST elevation (NSTEMI) myocardial infarction Fracture of left hip requiring operative repair Atherosclerosis of coronary artery Fracture, intertrochanteric, left femur Left radial head fracture Open fracture of distal ends of both radius and ulna Hearing loss Gastroparesis Orthostasis Supplemental oxygen dependent Failure to thrive in adult Hyperglycemia Anemia Hyponatremia Nausea & vomiting Dilation of pulmonary artery GERD (gastroesophageal reflux disease) Restless leg syndrome Presence of stent in coronary artery in patient with coronary artery disease Heart failure with preserved ejection fraction Altered mental status Diabetes CHF (congestive heart failure) Hyperlipidemia Pulmonary embolism DKA (diabetic ketoacidosis) Hypertensive urgency DM type 2 (diabetes mellitus, type 2) Arthritis Asthma HTN (hypertension) Small bowel mass Surgical History S/P ORIF (open reduction internal fixation) fracture Hx of cholecystectomy Family History Other Cancer Stroke Social History Smoking and tobacco/nicotine status: never used tobacco/nicotine Alcohol intake: never Substance/Drug Use: never Lives independently: Yes Household members: none Marital status: / Physical Exam Const: GENERAL APPEARANCE: cooperative, anxious and frail appearing (Mildly) HENMT: COMMON NORMALS: normocephalic and atraumatic HEAD & SCALP: normocephalic and atraumatic Eye: COMMON NORMALS: Equal, round and reactive pupils present and EOMs intact bilaterally PUPIL: Yes Equal, round and reactive pupils present Chest: CHEST: Yes Symmetrical chest wall rise Resp: COMMON NORMALS: normal respiratory effort and clear to auscultation bilaterally AUSCULTATION: clear to auscultation bilaterally Cardio: COMMON NORMALS: regular rate and regular rhythm RATE: regular rate RHYTHM: regular rhythm GI: PALPATION: Yes Tenderness to palpation present (GI) (Mild diffuse) and No Guarding due to palpation present (GI) Extremity: NARRATIVE EXTREMITY EXAM: Lower extremity edema present. Course Vital Signs: Vital signs: Vital Signs Temperature 97.9 F 09/21/24 23:10 Pulse Rate 93 09/21/24 23:10 Respiratory Rate 24 H 09/21/24 23:39 Blood Pressure 106/56 09/21/24 23:10 Pulse Oximetry 91 09/21/24 23:10 Oxygen Delivery Me thod Room Air 09/21/24 23:10 MDM - Chest Pain Medical Decision Making Patient complained of chest pain and nausea on arrival. She was given morphine, Zofran, and Haldol. Pain is resolved. Hemoglobin is 9.8. Creatinine is 1.3. Chest x-ray is positive for small left and trace right pleural effusions with some pulmonary edema. On EKG initially, she had about a millimeter or less of ST elevation in anterior leads with a left bundle branch block, nondiagnostic for STEMI. Her 2-hour troponin elevated however, and her 2-hour delta is 14. Her BNP is 14,000. She has received 80 mg of IV Lasix for this. She has begun to diurese a bit. She is already anticoagulated on Eliquis. She will go to the CSU. Patient had 1 low blood pressure of 86 systolic. She was actually laying on her side. Blood pressure is now 96/55. Heart rate is 86. She will be in the ER as a CSU hold at this point. Lab Data 09/21/24 23:28 09/21/24 23:52 Radiology Impressions Chest X-Ray 09/21/24 23:30 IMPRESSION: Small left and trace right pleural effusions. Laboratory Results WBC 11.25 10^3/uL (3.29-11.43) 09/21/24 23: RBC 4.12 10^6/uL (3.85-5.65) 09/21/24 23:28 Hgb 9.80 g/dL (11.27-16.99) L 09/21/24 23:28 Hct 33.0 % (36-47) L 09/21/24 23:28 MCV 80.1 fl (85-98) L 09/21/24 23:28 MCH 23.8 pg (27-33) L 09/21/24 23:28 MCHC 29.7 g/dL (30-55) L 09/21/24 23:28 RDW 14.8 % (12.1-15.1) 09/21/24 23:28 Plt Count 353 10^3/cmm (157-399) 09/21/24 23:28 MPV 10.6 fL (7.4-10.4) H 09/21/24 23:28 Neut % (Auto) 79.6 % 09/21/24 23:28 Lymph % (Auto) 13.6 % 09/21/24 23:28 [place] % (Auto) 4.3 % 09/21/24 23:28 Eos % (Auto) 1.7 % 09/21/24 23:28 Baso % (Auto) 0.4 % 09/21/24 23:28 Neut # (Auto) 8.95 10^3/uL (1.8-7.7) H 09/21/24 23:28 Lymph # (Auto) 1.5 10^3/uL (0.8-4.8) 09/21/24 23:28 [place] # (Auto) 0.5 10^3/uL (0.2-0.9) 09/21/24 23:28 Eos # (Auto) 0.2 10^3/uL (0.0-0.8) 09/21/24 23:28 Baso # (Auto) 0.1 10^3/uL (0.0-0.1) 09/21/24 23:28 Nucleated RBC % (auto) 0 % 09/21/24 23: Nucleated RBCs # 0.0 /100WBC 09/21/24 23:28 PT 13.60 SECONDS (12.1-14.9) 09/21/24 23: INR 0.98 (0.8-1.2) 09/21/24 23: APTT 28.0 SECONDS (23.9-36.7) 09/21/24 23:28 Sodium 136 mmol/L (136-145) 09/21/24 23:52 Potassium 5.0 mmol/L (3.5-5.1) 09/21/24 23:52 Chloride 97 mmol/L (98-107) L 09/21/24 23:52 Carbon Dioxide 27 mmol/L (22-29) 09/21/24 23:52 Anion Gap 17.0 (5-19) 09/21/24 23:52 BUN 42 mg/dL (8-23) H 09/21/24 23:52 Creatinine 1.3 mg/dL (0.5-0.9) H 09/21/24 23:52 GFR Calculation Not Reportable 09/21/24 23:52 Glucose 221 mg/dL (65-115) H 09/21/24 23:52 Calculated Osmolality 299 mOsm/kg (285-295) H 09/21/24 23:52 Calcium 9.2 mg/dL (8.5-10.5) 09/21/24 23:52 Total Bilirubin 0.2 mg/dL (0.15-1.2) 09/21/24 23:52 AST 13 U/L (0-32) 09/21/24 23:52 ALT 9 U/L (0-33) 09/21/24 23:52 Alkaline Phosphatase 86 U/L (35-105) 09/21/24 23:52 Troponin T Baseline 67 ng/L (0-10) H 09/21/24 23:28 Troponin T 120 Minute 80.94 ng/L (0-10) H 09/22/24 01:40 Delta Troponin T 13.94 ABS# (0-10) H* 09/22/24 01:40 NT-Pro-B Natriuret Pep 68866 pg/mL (0-125) H 09/21/24 23:52 Total Protein 6.7 g/dL (6.6-8.7) 09/21/24 23:52 Albumin 3.6 g/dL (3.5-5.2) 09/21/24 23:52 Globulin 3.1 g/dL (1.3-4.6) 09/21/24 23:52 All radiology interpretation(s) finalized by discharge Critical Care Time Critical Care Time: Critical Care Time: Yes Total Critical Care Time: 35 Attestation: This case had a high probability of a clinically significant, sudden, or life threatening deterioration of this patient's condition which required my full and direct attention, intervention and personal management. Time is independent of any procedures performed. Discharge Plan Discharge Patient Disposition: Admitted As Inpatient Clinical Impression: Acute exacerbation of congestive heart failure, Chest pain, Non-ST elevated myocardial infarction (non-STEMI) Condition: Fair Coding Level of Care Code ED Gold Frame Assembler for Sasha Cox
[2024-09-22] MEDS: haloperidol inj 5 mg/mL INJ 1 mL 3 MG IVP (00:23)
[2024-09-22 00:39] LABS: Alanine Aminotransferase 9 U/L (0-33); Albumin Level 3.6 g/dL (3.5-5.2); Alkaline Phosphatase 86 U/L (35-105); Anion Gap 17.0 (5-19); Aspartate Amino Transferase 13 U/L (0-32); Blood Urea Nitrogen 42 mg/dL (8-23); Calcium 9.2 mg/dL (8.5-10.5); Carbon Dioxide 27 mmol/L (22-29); Chloride 97 mmol/L (98-107); Creatinine Clr Calc Pharmacy 43.4392; Globulin 3.1 g/dL (1.3-4.6); Glucose 221 mg/dL (65-115); NT Pro B Type Natriuretic Pept 13856 pg/mL (0-125); Osmolality Calculated 299 mOsm/kg (285-295); Potassium 5.0 mmol/L (3.5-5.1); Sodium 136 mmol/L (136-145); Total Protein 6.7 g/dL (6.6-8.7)
--- NOTE | 2024-09-22 01:30 | ECG_ITS ---
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 Measurements Intervals [place] Rate: 104 P: 2 AK: 190 QRS: -78 QRSD: 146 T: 91 QT: 390 QTc: 514 Interpretive Statements SINUS TACHYCARDIA INTRAVENTRICULAR CONDUCTION DELAY [130+ ms QRS DURATION] ANTERIOR MYOCARDIAL INFARCTION , OF INDETERMINATE AGE [40+ ms Q WAVE AND/OR ST/T ABNORMALITY IN V3/V4] Compared to ECG 09/21/2024 23:20:40 Intraventricular conduction delay now present Myocardial infarct finding now present Left-axis deviation no longer present Left bundle-branch block no longer present Electronically Signed On 09-23-2024 08:39:50 CDT by Bryan Posadas M.D. [email or web address]
[2024-09-22] MEDS: FUROsemide 10 mg/mL SDV 10mL 80 MG IVP (01:47)
[2024-09-22 02:04] LABS: Troponin 5 2HR 80.94 ng/L (0-10)
[2024-09-22 02:32] LABS: Troponin 5 2HR Delta 13.94 ABS# (0-10)
--- NOTE | 2024-09-22 03:46 | PM.HP ---
Providers/Chief Complaint Admitting Physician: Patient seen after 12 midnight Primary Care Provider: Mat Chirinos DO Chief Complaint: CHEST PAIN History of Present Illness Lady López is a 74 year old female, a [facility] resident who presented to the emergency room because of complaints of chest pains. Patient BMP is 13,856 and patient is with anasarca with much abdominal obesity. Patient has left bundle branch block with elevated troponin at 67 the blood pressure is freely noted to be soft with systolic in the 90s though MAP is 60 and above. Patient is with chest pain now with CHF exacerbation will need cardiology consultation patient meets inpatient and will be at least 2 midnights stay in the hospital. Patient at this time is being admitted to the cardiac stepdown unit. BUN is 42 and creatinine is 1.3 patient is with JEFFRY with dehydration. Received 80 mg of IV Lasix in the emergency room I have initiated Lasix drip to be gentle on the kidney and to preserve the functionality of kidney function that is JEFFRY. Review of Systems Narrative: Patient is sleepy of course at 3 AM in the morning. Upon system review of 10 organ system is significant for debility musculoskeletal and cardiovascular for chest pains and CHF. Medications/Allergies Home Medications ?Medication ?Instructions ?Recorded ?Confirmed ?Last Taken ?Type acetaminophen 500 mg capsule 1,000 mg PO Q8H PRN Pain 02/01/23 09/04/24 08/29/24 02:21 History dapagliflozin propanediol 10 mg 10 mg PO DAILY #30 tabs 01/20/24 09/04/24 09/03/24 Rx tablet (Farxiga) hydralazine 25 mg tablet 25 mg PO TID #90 tabs 01/20/24 09/04/24 09/03/24 11:00 Rx clopidogrel 75 mg tablet 75 mg PO DAILY 06/07/24 09/04/24 09/03/24 History ondansetron HCl 4 mg tablet 4 mg PO Q6H PRN Nausea And Vomiting 06/07/24 09/04/24 08/30/24 03:23 History polyethylene glycol 3350 17 17 g PO DAILY 06/07/24 09/04/24 09/03/24 History gram/dose oral powder tiotropium bromide 2.5 2 puff inhalation DAILY 06/07/24 09/04/24 09/03/24 History mcg/actuation mist for inhalation (Spiriva Respimat) calcium carbonate (Calcium Antacid) 200 mg PO BID PRN Indigestion 07/09/24 09/04/24 09/03/24 History rosuvastatin 20 mg tablet 20 mg PO DAILY 07/09/24 09/04/24 09/03/24 History albuterol sulfate 90 mcg/actuation 2 inh inhalation Q4H PRN shortness 09/04/24 09/04/24 08/28/24 11:25 History aerosol inhaler of breath or wheezing calcium 500 mg (as 1 tab PO DAILY 09/04/24 09/04/24 09/01/24 09:00 History carbonate)-vitamin D3 5 mcg (200 unit) tablet docusate sodium 100 mg tablet 100 mg PO BID 09/04/24 09/04/24 08/31/24 19:00 History magnesium 200 mg tablet 200 mg PO BEDTIME 09/04/24 09/04/24 09/02/24 History metformin 1,000 mg tablet 1,000 mg PO BIDWMEAL 09/04/24 09/04/24 08/31/24 19:00 History metoprolol succinate 25 mg 25 mg PO DAILY 09/04/24 09/04/24 09/03/24 History tablet,extended release 24 hr pantoprazole 40 mg tablet,delayed 40 mg PO DAILY 09/04/24 09/04/24 09/03/24 History release quetiapine 50 mg tablet (Seroquel) 50 mg PO BEDTIME 09/04/24 09/04/24 09/03/24 History ropinirole 1 mg tablet 1 mg PO BEDTIME 09/04/24 09/04/24 09/02/24 History sucralfate 1 gram tablet 1 g PO DAILY@1700 09/04/24 09/04/24 09/03/24 History tramadol 37.5 mg-acetaminophen 325 1 tab PO BID PRN Pain 09/04/24 09/04/24 09/01/24 09:00 History mg tablet umeclidinium 62.5 mcg-vilanterol 1 inh inhalation DAILY 09/04/24 09/04/24 09/03/24 History 25 mcg/actuation powdr for inhalation (Anoro Ellipta) apixaban 5 mg tablet (Eliquis) 2.5 mg (1/2 x 5 mg) PO BID #90 tabs 09/11/24 09/04/24 09/03/24 08:00 Rx bumetanide 2 mg tablet 1 mg (1/2 x 2 mg) PO DAILY 30 days 09/11/24 09/04/24 09/03/24 Rx #30 tabs buspirone 7.5 mg tablet 7.5 mg PO DAILY 30 days #0 tabs 09/11/24 09/04/24 08/29/24 08:00 Rx Allergies Allergy/AdvReac Type Severity Reaction Status Date / Time codeine Allergy Unknown ADR-Diarrhe Verified 07/29/24 22:55 a tetanus and diphtheria Allergy Unknown Unknown Verified 07/29/24 22:55 toxoids atorvastatin Allergy ADR-Faintin Verified 07/29/24 22:55 g PFSH Acute PFSH: Medical History Non-ST elevation (NSTEMI) myocardial infarction Fracture of left hip requiring operative repair Atherosclerosis of coronary artery Fracture, intertrochanteric, left femur Left radial head fracture Open fracture of distal ends of both radius and ulna Hearing loss Gastroparesis Orthostasis Supplemental oxygen dependent Failure to thrive in adult Hyperglycemia Anemia Hyponatremia Nausea & vomiting Dilation of pulmonary artery GERD (gastroesophageal reflux disease) Restless leg syndrome Presence of stent in coronary artery in patient with coronary artery disease Heart failure with preserved ejection fraction Altered mental status Diabetes CHF (congestive heart failure) Hyperlipidemia Pulmonary embolism DKA (diabetic ketoacidosis) Hypertensive urgency DM type 2 (diabetes mellitus, type 2) Arthritis Asthma HTN (hypertension) Small bowel mass Surgical History S/P ORIF (open reduction internal fixation) fracture Hx of cholecystectomy Family History Other Cancer Stroke Social History Smoking and tobacco/nicotine status: never used tobacco/nicotine Alcohol intake: never Substance/Drug Use: never Lives independently: Yes Household members: none Marital status: / Vitals/I&O/Wt Last Vital Signs Temp 97.9 F 09/21/24 23:10 Pulse 93 09/21/24 23:10 Resp 24 H 09/21/24 23:39 BP 106/56 09/21/24 23:10 Pulse Ox 91 09/21/24 23:10 O2 Del Method Room Air 09/21/24 23:10 Weight last 48 hrs Weight 92.986 kg Physical Exam Narrative: Patient is lying down in bed with head of the bed at 45 degrees Tired with obesed abdomen and with general anasarca HEENT normocephalic/atraumatic neck neck is supple cardiovascular heart rate is regular lungs are pretty much coarse breath sounds diminished at the bases with scattered crackles. Abdomen is obese nontender nondistended has good bowel sounds. unremarkable extremities significant for third space edema. Neurology no focality Data 09/21/24 23:28 09/21/24 23:52 A&P Assessment and plan (1) Non-ST elevated myocardial infarction (non-STEMI): Patient is left bundle branch block though with elevated troponin this constitutes non-STEMI - Patient resolved chest pain prior to arriving to the emergency room - She received aspirin Her BNP is quite elevated much anasarca patient is an CHF likely associated with chest pain - Cardiology consulted Dr. Ny (2) Chest pain: Chest pain likely cardiac Patient with left bundle branch block and elevated troponin significant for NSTEMI - Continue antiplatelets - Cardiology on board - Obtain echocardiogram to further evaluate wall motion and EF (3) Encephalopathy: Encephalopathy could be multifactorial due to myocardial infarction versus all combination of CHF - Monitor closely, neurocheck every 4 hours (4) Anemia: Anemia is stable continue to monitor (5) Acute exacerbation of congestive heart failure: Congestive heart failure exacerbation - Lasix drip - Obtain good blood pressure - Patient blood pressure is soft must hold any antihypertensive - Patient has been admitted to stepdown unit - Echocardiogram with cardiology consultation regarding NSTEMI in a left bundle - Daily weight - I and O's to a minimum of -500 mL in 24 hours (6) DM type 2 (diabetes mellitus, type 2): Keep patient euglycemic Obtain hemoglobin A1c Avoid any nephrotoxic hypoglycemic agent Must continue to monitor (7) Acute kidney injury: All medication be renal friendly - Avoid IV fluid infusion because of the extent of patient's heart failure - Monitor renal function - BUN and creatinine on admission is 42/1.3 Plan GI and DVT prophylaxis in place PDMP PDMP Reviewed: Last Reviewed 09/22/24 06:19 by Nedra Ron MD Attestations Medical Necessity Statement*: Patient is with NSTEMI and CHF exacerbation likely due to systolic dysfunction and meets the criteria for inpatient for at least 2 midnights for care Coding Level of Care Code 53070 Diagnoses Non-ST elevated myocardial infarction (non-STEMI) I21.4 Chest pain R07.9 Encephalopathy G93.40 Anemia D64.9 Acute exacerbation of congestive heart failure I50.9 DM type 2 (diabetes mellitus, type 2) E11.9 Acute kidney injury N17.9 Time Spent (min) 70
--- NOTE | 2024-09-22 05:30 | ECG_ITS ---
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 Measurements Intervals [place] Rate: 84 P: 55 RI: 177 QRS: -75 QRSD: 128 T: 84 QT: 420 QTc: 498 Interpretive Statements SINUS RHYTHM POSSIBLE RIGHT VENTRICULAR CONDUCTION DELAY [RSR (QR) IN V1/V2] INFERIOR MYOCARDIAL INFARCTION , OF INDETERMINATE AGE [40+ ms Q WAVE AND/OR ST/T ABNORMALITY IN II/aVF] ANTEROSEPTAL MYOCARDIAL INFARCTION , OF INDETERMINATE AGE [40+ ms Q WAVE IN V1-V4] Compared to ECG 09/22/2024 01:50:02 Sinus tachycardia no longer present Intraventricular conduction delay no longer present Myocardial infarct finding still present Electronically Signed On 09-23-2024 08:39:30 CDT by Bryan Posadas M.D. [email or web address]
[2024-09-22 05:54] LABS: Troponin 5 6HR 155.2 ng/L (0-10); Troponin 5 6HR Delta 88.2 ng/L (0-12)
[2024-09-22] MEDS: morphine 4 mg/mL SDV 1 mL 2 MG IVP ×3 (08:17→17:54)
[2024-09-22] MEDS: ondansetron 2 mg/ML SDV 2 mL 4 MG IVP (08:17)
[2024-09-22] MEDS: heparin drip 25,000 UNIT/500 ML PREMIX 26 UNIT IV (10:46)
[2024-09-22] MEDS: heparin 5,000 unit/mL INJ 1 mL IVP (10:52)
[2024-09-22 12:12] LABS: Hematocrit 37.0 % (36-47); Hemoglobin 10.60 g/dL (11.27-16.99); Mean Corpuscular HGB Conc 28.6 g/dL (30-55); Mean Corpuscular Hemoglobin 24.3 pg (27-33); Mean Corpuscular Volume 84.7 fl (85-98); Nucleated Red Blood Cells % 0 %; Platelet Count 370 10^3/cmm (157-399); Red Blood Count 4.37 10^6/uL (3.85-5.65); White Blood Count 12.28 10^3/uL (3.29-11.43)
[2024-09-22 12:31] LABS: Alanine Aminotransferase 12 U/L (0-33); Albumin Level 3.5 g/dL (3.5-5.2); Alkaline Phosphatase 89 U/L (35-105); Anion Gap 17.3 (5-19); Aspartate Amino Transferase 32 U/L (0-32); Blood Urea Nitrogen 45 mg/dL (8-23); Calcium 9.7 mg/dL (8.5-10.5); Carbon Dioxide 28 mmol/L (22-29); Chloride 98 mmol/L (98-107); Creatinine Clr Calc Pharmacy 47.0592; Globulin 3.8 g/dL (1.3-4.6); Glucose 202 mg/dL (65-115); Magnesium 2.5 mg/dL (1.7-2.3); Osmolality Calculated 303 mOsm/kg (285-295); Potassium 5.3 mmol/L (3.5-5.1); Sodium 138 mmol/L (136-145); Total Protein 7.3 g/dL (6.6-8.7)
--- NOTE | 2024-09-22 13:00 | PC.NURSE ---
Received pt from ER Pt is reporting of chest pain not relieved by morphine from ER. Pt looked pale,moaning and groaning in pain.on 2 L NC. VS stable. on heparin drip started at 26 cc/hr in ER and lasix drip at 5 mls. Bilateral PIVs are intact. call light provided. notified hospitalist and induction heating equipment setter of pt's unrelieved chest pain.
--- NOTE | 2024-09-22 13:13 | PM.CONSULT ---
Providers/Reason For Consult Consulting Physician/Specialty*: BHAVIK Stark MD/cardiology Reason for Consult*: Patient's chest pain/elevated troponin T/previous PCI Requesting Physician: Dr. Webb Attending Physician: Zach Webb Primary Care Provider: Mat Chirinos DO History of Present Illness History of Present Illness Lady López is a 74 year old female is admitted to the hospital through the emergency room. She presented with complaints of chest pain. She was found to have elevated troponin T. She continues to have chest pain. Cardiology consult is requested for further cardiac evaluation recommendations. This patient is brought from the senior care. She started having chest pain yesterday morning. According the patient, the pain never completely quit. It seems to be getting worse. At the time of examination, the pain is 10/10. She came with a troponin T of 67 at baseline. Her 2-hour delta was 14 and the 6-hour delta was 88. This patient is known to have atherosclerotic heart disease. She had a PCI of the obtuse marginal artery and proximal to mid circumflex artery [place] [address] Posadas. Patient has been doing okay since then. She was recently admitted to hospital with features of metabolic acidosis, altered mental status. She was found to be in congestive heart failure and also possible pneumonia. She also was anemic and with features of acute on chronic kidney injury. She was having some chest pain at that time as well. Her troponin T was slightly elevated at the time of admission which was showing a downward trend during the hospital stay. Cardiology was consulted at that time. Because of her multiple medical problems and fairly stable condition, it was opted to treat her medically at that time. She was discharged home on the of last month. This patient noted to have multiple medical problems including recent pulmonary embolism, hypertension, dyslipidemia, type 2 diabetes, chronic kidney disease, chronic hypercapnic respiratory failure, right-sided pleural effusion, chronic diastolic heart failure, obesity, anemia, etc. Currently she has no fever or chills. No cough. She has some baseline shortness of breath. No orthopnea. Her main complaint is chest pain at this point. No other specific complaints except for the chest pain. Review of Systems Narrative: CONSTITUTIONAL: No fever or chills. EYES: No blurring of vision or other visual disturbances lately. ENT: No hoarseness of voice, auditory disturbances or sore throat. CARDIOVASCULAR: As mentioned above. RESPIRATORY: Chronic hypercapnic respiratory failure GASTROINTESTINAL: No hematemesis or melena. GENITOURINARY: Chronic kidney disease INTEGUMENTARY: No skin rashes or history of skin cancer. NEURO: No transient ischemic attacks or amaurosis. PSYCHIATRIC: No recent history of any major depression HEMATOLOGIC: Chronic anemia ENDOCRINE: No history of polyuria or polydipsia. MUSCULOSKELETAL: No recent joint pain or swelling. ALLERGY/IMMUNOLOGY: As mentioned above. Medications/Allergies Home Medications ?Medication ?Instructions ?Recorded ?Confirmed ?Last Taken ?Type acetaminophen 500 mg capsule 1,000 mg PO Q8H PRN Pain 02/01/23 09/22/24 09/20/24 20:50 History dapagliflozin propanediol 10 mg 10 mg PO DAILY #30 tabs 01/20/24 09/22/24 09/21/24 07:25 Rx tablet (Farxiga) hydralazine 25 mg tablet 25 mg PO TID #90 tabs 01/20/24 09/22/24 09/21/24 19:15 Rx clopidogrel 75 mg tablet 75 mg PO DAILY 06/07/24 09/22/24 09/21/24 07:25 History ondansetron HCl 4 mg tablet 4 mg PO Q6H PRN Nausea And Vomiting 06/07/24 09/22/24 09/21/24 04:35 History polyethylene glycol 3350 17 17 g PO DAILY 06/07/24 09/22/24 09/21/24 07:25 History gram/dose oral powder tiotropium bromide 2.5 2 puff inhalation DAILY 06/07/24 09/22/24 09/21/24 07:25 History mcg/actuation mist for inhalation (Spiriva Respimat) calcium carbonate (Calcium Antacid) See Rx Instructions .Route 07/09/24 09/22/24 09/21/24 14:05 History .COMPLEX PRN Indigestion rosuvastatin 20 mg tablet 20 mg PO DAILY 07/09/24 09/22/24 09/21/24 19:15 History albuterol sulfate 90 mcg/actuation 2 inh inhalation Q4H PRN shortness 09/04/24 09/22/24 08/28/24 11:25 History aerosol inhaler of breath or wheezing calcium 500 mg (as 1 tab PO DAILY 09/04/24 09/22/24 09/21/24 07:25 History carbonate)-vitamin D3 5 mcg (200 unit) tablet docusate sodium 100 mg tablet 100 mg PO BID 09/04/24 09/22/24 09/21/24 19:15 History magnesium 200 mg tablet 200 mg PO BEDTIME 09/04/24 09/22/24 09/21/24 19:15 History metformin 1,000 mg tablet 1,000 mg PO BIDWMEAL 09/04/24 09/22/24 09/21/24 19:15 History metoprolol succinate 25 mg 25 mg PO DAILY 09/04/24 09/22/24 09/21/24 09:40 History tablet,extended release 24 hr pantoprazole 40 mg tablet,delayed 40 mg PO DAILY 09/04/24 09/22/24 09/21/24 07:25 History release (Protonix) quetiapine 50 mg tablet (Seroquel) 50 mg PO BEDTIME 09/04/24 09/22/24 09/21/24 19:15 History ropinirole 1 mg tablet 1 mg PO BEDTIME 09/04/24 09/22/24 09/21/24 19:15 History sucralfate 1 gram tablet 1 g PO DAILY@1700 09/04/24 09/22/24 09/21/24 19:15 History umeclidinium 62.5 mcg-vilanterol 1 inh inhalation DAILY 09/04/24 09/22/24 09/21/24 07:25 History 25 mcg/actuation powdr for inhalation (Anoro Ellipta) apixaban 5 mg tablet (Eliquis) 2.5 mg (1/2 x 5 mg) PO BID #90 tabs 09/11/24 09/22/24 09/21/24 19:15 Rx bumetanide 2 mg tablet 1 mg (1/2 x 2 mg) PO DAILY 30 days 09/11/24 09/22/24 09/03/24 Rx #30 tabs buspirone 7.5 mg tablet 7.5 mg PO DAILY 30 days #0 tabs 09/11/24 09/22/24 09/21/24 07:25 Rx albuterol sulfate 2.5 mg/3 mL 2.5 mg inhalation Q4H PRN 09/22/24 09/22/24 08/28/24 11:25 History (0.083 %) solution for nebulization Shortness Of Breath Or Wheezing alprazolam 0.5 mg tablet (Xanax) 0.5 mg PO DAILY 09/22/24 09/22/24 09/21/24 21:10 History insulin glargine 100 unit/mL 35 unit SUBCUT BEDTIME 09/22/24 09/22/24 09/21/24 19:45 History subcutaneous solution insulin lispro 100 unit/mL See Rx Instructions .Route .COMPLEX 09/22/24 09/22/24 09/21/24 16:45 History subcutaneous solution nitroglycerin 0.4 mg sublingual 0.4 mg sublingual Q5M PRN Heart 09/22/24 09/22/24 08/02/24 04:50 History tablet potassium chloride 20 mEq 20 meq PO DAILY 09/22/24 09/22/24 Unknown History tablet,extended release spironolactone 25 mg tablet 25 mg PO DAILY 09/22/24 09/22/24 Unknown History tramadol 37.5 mg-acetaminophen 325 1 tab PO BID PRN Pain 09/22/24 09/22/24 09/21/24 19:15 History mg tablet Allergies Allergy/AdvReac Type Severity Reaction Status Date / Time codeine Allergy Unknown ADR-Diarrhe Verified 07/29/24 22:55 a tetanus and diphtheria Allergy Unknown Unknown Verified 07/29/24 22:55 toxoids atorvastatin Allergy ADR-Faintin Verified 07/29/24 22:55 g Current Medications Generic Name Dose Route Start Last Admin Trade Name Freq PRN Reason Stop Dose Admin Aspirin 325 mg 09/22/24 09:00 09/22/24 08:16 Aspirin 325 Mg Ec Tablet PO 325 mg DAILY NAHUM Administration Heparin Sodium/Sodium Chloride 25,000 unit in 500 mls @ 0 mls/hr 09/22/24 10:15 09/22/24 10:46 Heparin Drip IV 13.98 unit/kg/hr CONT NAHUM 26 mls/hr Protocol Administration Per Protocol PFSH Acute PFSH: Medical History Non-ST elevation (NSTEMI) myocardial infarction Fracture of left hip requiring operative repair Atherosclerosis of coronary artery Fracture, intertrochanteric, left femur Left radial head fracture Open fracture of distal ends of both radius and ulna Hearing loss Gastroparesis Orthostasis Supplemental oxygen dependent Failure to thrive in adult Hyperglycemia Anemia Hyponatremia Nausea & vomiting Dilation of pulmonary artery GERD (gastroesophageal reflux disease) Restless leg syndrome Presence of stent in coronary artery in patient with coronary artery disease Heart failure with preserved ejection fraction Altered mental status Diabetes CHF (congestive heart failure) Hyperlipidemia Pulmonary embolism DKA (diabetic ketoacidosis) Hypertensive urgency DM type 2 (diabetes mellitus, type 2) Arthritis Asthma HTN (hypertension) Small bowel mass Surgical History S/P ORIF (open reduction internal fixation) fracture Hx of cholecystectomy Family History Other Cancer Stroke Social History Smoking and tobacco/nicotine status: never used tobacco/nicotine Alcohol intake: never Substance/Drug Use: never Lives independently: Yes Household members: none Marital status: / Vitals/I&O/Wt Last Vital Signs Temp 97.9 F 09/21/24 23:10 Pulse 86 09/22/24 13:04 Resp 20 H 09/22/24 09:18 BP 139/61 09/22/24 13:04 Pulse Ox 92 09/22/24 13:04 O2 Del Method Nasal Cannula 09/22/24 12:43 O2 Flow Rate 2 09/22/24 12:43 Weight last 48 hrs Weight 205 lb Physical Exam Narrative: GENERAL: The patient is alert and oriented times three. Patient is groaning with pain, describes it as 15/10 in intensity! HEENT: No significant pallor, icterus or lymphadenopathy.Oral cavity: There are no mucous membrane lesions. NECK: Trachea appears to be central. No masses noted. No JVD or thyromegaly appreciated. RESPIRATORY: Chest is symmetrical. No intercostals muscle retraction or any accessory muscle activation. There is no chest wall tenderness. Breath sounds are heard bilaterally. No rales or rhonchi heard. No evidence of any consolidation. [] BREASTS: Deferred. [] HEART: The heart sounds are normal. No S3 or S4. [No significant murmurs] []. No pericardial rub ABDOMEN: No vessel pulsations or distention. No tenderness. No organomegaly appreciated. Bowel sounds are normally heard. : Deferred. RECTAL: Deferred. []Peripheral pulses are palpable but weak bilaterally LYMPHATIC: No lymphadenopathy noted in the neck. EXTREMITIES: No edema or cyanosis. No clubbing. MUSCULOSKELETAL: No acute joint deformities or swelling SKIN: There are no significant rashes or ecchymosis NEUROPSYCHIATRIC: The patient is alert and oriented x3. Appears to be in a good mood. No tremors or rigidity noted. [] Urinary Catheter Management: Mathew: Cath Placed During This Visit: yes Urinary Catheter Date of Insertion: 09/22/24 Urinary Catheter Time of Insertion: 08:53 Data 09/22/24 11:59 09/22/24 11:59 Other Labs: Laboratory Last Values WBC 12.28 10^3/uL (3.29-11.43) H 09/22/24 11:59 RBC 4.37 10^6/uL (3.85-5.65) 09/22/24 11:59 Hgb 10.60 g/dL (11.27-16.99) L 09/22/24 11:59 Hct 37.0 % (36-47) 09/22/24 11:59 MCV 84.7 fl (85-98) L D 09/22/24 11:59 MCH 24.3 pg (27-33) L 09/22/24 11:59 MCHC 28.6 g/dL (30-55) L 09/22/24 11:59 RDW 14.8 % (12.1-15.1) 09/22/24 11:59 Plt Count 370 10^3/cmm (157-399) 09/22/24 11:59 MPV 10.4 fL (7.4-10.4) 09/22/24 11:59 Neut % (Auto) 77.8 % 09/22/24 11:59 Lymph % (Auto) 12.6 % 09/22/24 11:59 Mclean % (Auto) 6.8 % 09/22/24 11:59 Eos % (Auto) 1.9 % 09/22/24 11:59 Baso % (Auto) 0.6 % 09/22/24 11:59 Neut # (Auto) 9.56 10^3/uL (1.8-7.7) H 09/22/24 11:59 Lymph # (Auto) 1.6 10^3/uL (0.8-4.8) 09/22/24 11:59 Mclean # (Auto) 0.8 10^3/uL (0.2-0.9) 09/22/24 11:59 Eos # (Auto) 0.2 10^3/uL (0.0-0.8) 09/22/24 11:59 Baso # (Auto) 0.1 10^3/uL (0.0-0.1) 09/22/24 11:59 Nucleated RBC % (auto) 0 % 09/22/24 11:59 Nucleated RBCs # 0.0 /100WBC 09/22/24 11:59 PT 13.60 SECONDS (12.1-14.9) 09/21/24 23:28 INR 0.98 (0.8-1.2) 09/21/24 23:28 APTT 28.0 SECONDS (23.9-36.7) 09/21/24 23:28 Sodium 138 mmol/L (136-145) 09/22/24 11:59 Potassium 5.3 mmol/L (3.5-5.1) H 09/22/24 11:59 Chloride 98 mmol/L (98-107) 09/22/24 11:59 Carbon Dioxide 28 mmol/L (22-29) 09/22/24 11:59 Anion Gap 17.3 (5-19) 09/22/24 11:59 BUN 45 mg/dL (8-23) H 09/22/24 11:59 Creatinine 1.2 mg/dL (0.5-0.9) H 09/22/24 11:59 GFR Calculation Not Reportable 09/22/24 11:59 Glucose 202 mg/dL (65-115) H 09/22/24 11:59 Calculated Osmolality 303 mOsm/kg (285-295) H 09/22/24 11:59 Calcium 9.7 mg/dL (8.5-10.5) 09/22/24 11:59 Phosphorus 5.8 mg/dL (2.5-4.5) H 09/22/24 11:59 Magnesium 2.5 mg/dL (1.7-2.3) H 09/22/24 11:59 Total Bilirubin 0.3 mg/dL (0.15-1.2) 09/22/24 11:59 AST 32 U/L (0-32) 09/22/24 11:59 ALT 12 U/L (0-33) 09/22/24 11:59 Alkaline Phosphatase 89 U/L (35-105) 09/22/24 11:59 Troponin T Baseline 67 ng/L (0-10) H 09/21/24 23:28 Troponin T 120 Minute 80.94 ng/L (0-10) H 09/22/24 01:40 Delta Troponin T 13.94 ABS# (0-10) H* 09/22/24 01:40 Troponin T Hi Sens 6Hr 155.2 ng/L (0-10) H 09/22/24 05:29 Troponin T Hi Sens 6Hr Delta 88.2 ng/L (0-12) H* 09/22/24 05:29 NT-Pro-B Natriuret Pep 56934 pg/mL (0-125) H 09/21/24 23:52 Total Protein 7.3 g/dL (6.6-8.7) 09/22/24 11:59 Albumin 3.5 g/dL (3.5-5.2) 09/22/24 11:59 Globulin 3.8 g/dL (1.3-4.6) 09/22/24 11:59 Other data: Most recent cardiac organization on 06/08/2021 * Circumflex has patent stent. * Right Coronary Artery not injected. * Proximal Left Anterior Descending to Mid Left Anterior Descending: obstructive, heavily calcified 70% stenosis, RADU: 3 flow. * This is a staged PCI of proximal to mid LAD with orbital arthrectomy. For complete diagnostic catheter report, please refer to procedure from 06/07/2021. * Left Main has no disease. * Coronary angiography shows right dominance. Echocardiogram on 09/05/2024 mited echo to assess LV systolic function. Normal left ventricle size, normal LV systolic function. Estimated LVEF 60%. No change of LV systolic function compared to previous echo report (05/2024). A&P Assessment and plan (1) Atherosclerotic heart disease of benton coronary artery with unstable angina pectoris: Patient seems unstable anginal symptoms. She is on Plavix and Eliquis. The troponin T is trending upwards. I may start the patient on IV nitroglycerin. The dose may be titrated up. Continue on the IV heparin. Hold off on the Eliquis at this time. Other medications may be continued (2) Non-ST elevated myocardial infarction (non-STEMI): The clinical features are Consistent with a non-ST elevation myocardial infarction. (3) Pulmonary embolism: Patient has been taking Eliquis 2.5 mg p.o. twice daily (4) Hyperlipidemia: May continue on the current medications (5) Congestive heart failure with LV diastolic dysfunction, NYHA class 2: Heart failure is fairly compensated. Repeat limited echocardiogram is pending (6) DM type 2 (diabetes mellitus, type 2): medication adjustments as per the primary care. Plan the other problems are chronic kidney disease- stable mild anemia small pleural effusion slightly elevated white cell count- possibly stress-induced, no clinical evidence of any infection CHF, fairly compensated COPD with CO2 retention In view of the patient's unstable anginal symptoms and the upward trending troponin T, in order to further evaluate her coronary status, she requires an urgent cardiac catheterization. Because of her abnormal kidney function, mild anemia and being on blood thinning medication, she carries a higher risk for contrast-induced nephropathy and bleeding complications. This was discussed in detail with the patient and her son Agustin López. the patient and the family are wanting to go ahead with the procedure with this understanding. I contacted Dr. Ny, the on-call lace roller to perform this procedure. agreed on this and will assume the care of this patient at this point. PDMP PDMP Reviewed: Not Reviewed Consult Attestations Medical Necessity Statement: Patient requires continued hospital stay for close monitoring and further management Coding Level of Care Code 75508 Diagnoses Atherosclerosis of benton coronary artery of benton heart with unstable angina pectoris I25.110 [place] vs. transplanted heart: benton heart Non-ST elevated myocardial infarction (non-STEMI) I21.4 Pulmonary embolism, other, unspecified chronicity, unspecified whether acute cor pulmonale present I26.99 Acute cor pulmonale presence: unspecified Chronicity: unspecified Pulmonary embolism type: other Mixed hyperlipidemia E78.2 Hyperlipidemia type: mixed hyperlipidemia Congestive heart failure with LV diastolic dysfunction, NYHA class 2 I50.30 Type 2 diabetes mellitus with stage 3a chronic kidney disease, with long-term current use of insulin E11.22; N18.31; Z79.4 Chronic kidney disease stage: stage 3 (moderate) Chronic kidney disease stage 3 subtype: stage 3a (GFR 45-59) Diabetes mellitus complication detail: with chronic kidney disease Diabetes mellitus complication status: with kidney complications Diabetes mellitus custodial insulin use: with exterminator termite use
--- NOTE | 2024-09-22 13:28 | XACV_ITS ---
Exam Room: [facility] Ht: 165 cm Wt: 93 kg BSA: 2.10 m2 Gender: Female : 1950 Any Known Allergies: Other Exam Priority: Routine Procedure(s): Procedure Description: Diagnostic procedure Procedure Description: Left Heart Catheterization Procedure Description: Left ventriculography Procedure Description: Coronary Angiography Diagnostic Cath Status: Urgent Diagnostic Findings * Left Main to Proximal Left Anterior Descending: critical 95% stenosis, RADU: 3 flow. Patent previously placed proximal stent with minimal in-stent restenosis. * Proximal Circumflex: subtotal occlusion, RADU: 3 flow. Patent previously placed proximal circumflex stent with minimal in-stent restenosis. * Left Anterior Descending has no disease. * Right Coronary Artery has no disease. * Left Main: obstructive 70% stenosis, RADU: 3 flow. * Coronary angiography shows right dominance. Conclusions 1. There is subtotal occlusion coronary artery disease with two vessel disease. 2. The apex, mid posterior, mid septum, anterolateral, mid inferior reeves are hypokinetic. 3. All other visualized reeves normal. 4. Mild left ventricular systolic dysfunction. Ejection fraction of 45%. Recommendations * 1-Return to ICU for close monitoring and routine PCI care 2-Continue IV heparin drip as per ACS protocol 3-Hold Plavix for possible CABG 4-Statin with LDL goal of 70 mg/dl, aspirin 81 mg p.o. daily for life long 5-CT surgery consults for CABG 6-Optimal medical management for DE 7-Follow up with Dr. Stark in four weeks and establish care with primary care physician. Diagnostic RX Recommendation: CABG LV EDP: 26 mmHg Ventriculography Ejection Fraction: 45.0 % Pressures Phase:Rest AO : 113 / 57 ( 78 ) @ 3:19:00 PM 114 / 58 ( 78 ) @ 3:19:00 PM LV : 122 / 5 / 29 @ 3:17:00 PM 121 / 7 / 32 @ 3:19:00 PM 119 / 5 / 30 @ 3:19:00 PM Valves Phase:DefaultPhase AV : 6.0 @ 2:31:51 PM 6.0 @ 2:31:51 PM AV Mean Gradient: 10.0 @ 2:31:51 PM 10.0 @ 2:31:51 PM Clinical Evaluation EBL: 5mL-10mL Procedural Details Procedure Consent Obtained. Pre-Procedure Time Out. Identified patient by full name and date of as verbalized by the patient/guarantor. Does the consent match the physician's order: Yes. Accurate & Complete Informed Consent: Yes. Inpatient/Outpatient History & Physical on Chart: Yes. If H&P is completed, is and addenduem needed: No. Visualize and Verify Site with Patient/Guarantor: N/A. Relevant Radiology Images available: Yes. The risks, benefits, and alternatives of sedation and/or procedure were discussed by physician. The patient agrees to continue. Procedure started. [facility] Clinical Fraility Score: 6: Moderately Frail. Open Hearth Helper Indications: ACS > 24 hours/NSTEMI. Chest Pain Symptom Assessment: Typical Angina Symptoms. Cardiovascular Instability: No. Correct patient, site and procedure confirmed by cath team. Current diagnosis: NSTEMI. PERRLA. Strong, equal hand crusher and blender operator bilaterally. Lungs clear x 5 lobes. Mathew cath intact on arrival to the clinical genetics laboratory chief draining clear, yellow UOP. IV Site on Arrival: 20 gauge in the left hand. IV Site on Arrival: 18 gauge in the right anticubital. IV Fluids: 0.9% NaCl at KVO. 0 mL infused prior to clinical genetics laboratory chief. Pre Procedural Pulses: right radial was 2+. Oxygen started at 2liters/min via nasal canula. right groin was prepped with chloroprep then draped in the usual sterile fashion. right radial was prepped with chloroprep then draped in the usual sterile fashion. Physician notified. Baseline sample Acquired. HR: 92 BPM. Patient's family unavailable. Equipment: 6F - Radial. Cardiac Cath Pack. ACIST Manifold Kit Model BT 2000. Heparinized Saline (2 units/mL), 1000 mL bag. Physician arrived. Physician scrubbed in. Immediate Pre-Procedure Time Out. Correct Patient: Yes; Correct Procedure: Yes; Correct Site: Yes; Correct Patient Position: Yes; Correct Supplies: Yes; Dried Flammable Prep: Yes; Blood Products Available: N/A;. Lidocaine 1% infiltrated to the right radial. Arterial access obtained. A 6 azerbaijani JR4 catheter in over wire. A 5 azerbaijani TIG catheter in over the exchange J wire. Exchange J wire out. Hand injection of the right radial artery performed through the catheter. 0.035 x 260cm Stiff angled glidewire in through the catheter. Glidewire out, exchange J wire in. ACT drawn. Results 158 seconds. Therapeutic limits - pre-heparin administration 90-150 seconds and monitoring heparin during a vascular procedure >250 seconds. Multiple views taken of left coronary artery. Catheter redirected to the RCA. Multiple views taken of right coronary artery. Catheter removed over the exchange J wire. A 5 azerbaijani Angled Pig catheter in over the exchange J wire. paint department supervisor, Maria Elena, called for an ICU per Dr. Ny's order. ICU bed not available at this time. EDP Sample taken: LV 122/5,29; HR: 82 BPM; SpO2: 97%. LV gram performed in DAVE @ 10 mL/second for a total of 20 mL. EDP Sample taken: LV 121/7,32; HR: 81 BPM; SpO2: 97%. Pullback taken: LV 119/5,30; AO 113/57(78); Mean: 10mmHg, Peak to Peak: 6mmHg, SEP: 18sec/min; HR: 82 BPM; SpO2: 97%. Catheter removed over the exchange J wire. Physician scrubbed out. A TR Band was successful obtaining hemostatsis at the Right Radial artery insertion site. Post Procedure: Pulses reassessed and unchanged. PERRLA. Strong, equal hand crusher and blender operator bilaterally. No VTE prophylaxis required. Medication's Wasted: Lidocaine 1% = 18 mL. Medication's Wasted: Nitro = 49.8 mg. Medication's Wasted: Heparin = 1000 units. Medication's Wasted: Other = Fentanyl 75 mcg. Total IV fluids: 50 mL. Post-op diagnosis: Multivessel CAD, CABG consult. Complications: none. Estimated blood loss: 5mL-10mL. Responsiveness - Normal response to verbal stimuli; alert and oriented, PERRLA. Airway - Unaffected, no intervention required; spontaneous ventilation. Circulation: W/N/L, pulses unchanged. Nausea/Vomiting: No. Procedure completed. Patient transferred by bed to 1st floor. Vital chart was stopped. Access Site Site: Right Radial artery Sheath Size: 6 Fr Hemostasis Method: TR Band Hemostasis Success: Successful Procedure Medications Start: 1:42 PM Stop: 1:42 PM Medication: Versed Amount: 1 mg Route: I.V. Start: 1:42 PM Stop: 1:42 PM Medication: Fentanyl Amount: 25 mcg Route: I.V. Start: 1:54 PM Stop: 1:54 PM Medication: Versed Amount: 1 mg Route: I.V. Start: 1:57 PM Stop: 1:57 PM Medication: Nitrogylcerin Amount: 200 mcg Route: I.A. Start: 2:15 PM Stop: 2:15 PM Medication: Heparin Amount: 5000 units Route: I.V. I, the attending physician, have reviewed and verified all procedure medications. Yes, all medications given per verbal order History/Risk Factors Hypertension: Yes Dyslipidemia: Yes Peripheral Arterial Disease (PAD): No Myocardial Infarction (DE): No Obesity: Yes Renal Disease: No Tobacco Use: Never Prior Interventions PCI: Yes CABG: No Valve Surgery: No Date of PCI: 06/08/2021 Report Signatures Finalized by Rose Ny MD on 09/22/2024 02:46 PM
--- NOTE | 2024-09-22 13:37 | PC.NURSE ---
received order from Dr Stark to hold pt's Lasix shannon
--- NOTE | 2024-09-22 13:37 | PC.NURSE ---
pt taken to bean sprout laborer
--- NOTE | 2024-09-22 13:43 | W.PM.OPSUD ---
Surgery/Procedure H&P Update DATE OF PROCEDURE: September 22, 2024 DATE H&P PERFORMED: 09/22/24 H&P UPDATE INFORMATION: I have reviewed H&P completed within last 30 days, I have examined patient prior to procedure and No changes to prior documentation PREOP DIAGNOSIS: Non-ST elevation WA/unstable PLANNED PROCEDURE: Left heart cath urgent PATIENT REASSESSED PRIOR TO SEDATION, WITH NO CHANGE NOTED: Yes PHYSICAL EXAM: alert, oriented x 3, clear to auscultation bilaterally and regular rate & rhythm AIRWAY EVAL/ANESTHESIA PLAN: ASA II, Risks, benefits & alternatives of sedation and/or procedure discussed and Patient agrees to continue as planned ADDITIONAL INFORMATION: Patient has been explained all risk-benefit and already for the procedure. She understand 2% risk of stroke major bleed. She understand 5% risk of minor bleeding bruising infection pseudoaneurysm contrast induced nephropathy leading to temporary or permanent dialysis. She understand 5. Risk of urgent emergent vascular bypass surgery. Patient agreed and would like to proceed with it
--- NOTE | 2024-09-22 13:50 | P.PN_ITS ---
Subjective 2 Subjective: She is still having central chest pain with heaviness, but also pain with deep breaths. Denies cough, phlegm production, denies hemoptysis. Vitals/I&O/Wt Last Vital Signs Temp 97.9 F 09/21/24 23:10 Pulse 86 09/22/24 13:04 Resp 20 H 09/22/24 09:18 BP 139/61 09/22/24 13:04 Pulse Ox 92 09/22/24 13:04 O2 Del Method Room Air 09/22/24 13:26 O2 Flow Rate 2 09/22/24 12:43 09/21/24 09/22/24 09/22/24 22:59 06:59 14:59 Intake Total 85.584 / 85.584 Balance 85.584 / 85.584 Weight last 48 hrs Weight 92.986 kg Physical Exam 2 Narrative: Uncomfortable, clutching her chest. Const: COMMON NORMALS: patient oriented x3 and alert GENERAL APPEARANCE: c ooperative ORIENTATION/CONSCIOUSNESS: Yes awake HENMT: COMMON NORMALS: oropharynx normal Neck/C-Spine: COMMON NORMALS: no JVD Resp: COMMON NORMALS: normal respiratory effort and clear to auscultation bilaterally AUSCULTATION: clear to auscultation bilaterally Cardio: COMMON NORMALS: no JVD, regular rhythm, S1 normal heart sound present, S2 normal heart sound present and No murmurs present (Cardio) RHYTHM: regular rhythm HEART SOUNDS: S1 normal heart sound present and S2 normal heart sound present GI: COMMON NORMALS: Normal to inspection, nondistended, normoactive bowel sounds present, Soft to palpation and non-tender PALPATION: Yes Soft to palpation Extremity: COMMON NORMALS: no joint enlargement and no pedal edema Neuro: COMMON NORMALS: patient oriented x3 and moves all extremities S ENSORIUM/ORIENTATION: Yes alert Skin: COMMON NORMALS: no rashes or lesions noted GENERAL SKIN EXAM: no rashes or lesions noted Urinary Catheter Management: Mathew: Cath Placed During This Visit: yes Urinary Catheter Date of Insertion: 09/22/24 Urinary Catheter Time of Insertion: 08:53 Data 09/22/24 11:59 09/22/24 11:59 A&P Assessment and plan (1) Non-ST elevated myocardial infarction (non-STEMI): Continue to have chest pain, describing severe, central, chest and pressure. Does report some pleuritic pain as well and although without cough, no sputum production, no hemoptysis. Reviewed vitals, CBC, CMP, troponin series, noted positive troponin delta, started heparin drip. Monitor for risk of bleeding with anticoagulation and DAPT, monitor PTT, reassess blood counts. Requested echocardiogram. As per discussion with cardiology further assessment with coronary angiography with concern for unstable angina/NSTEMI. Monitor on telemetry with risk of arrhythmia. Continue aspirin, Plavix. Reassess chemistry. Discussed with nursing, briefcase sewer. (2) Chest pain: Additional cardiac assessment as above. Monitor on telemetry. Less likely PE as she has been on anticoagulation, however, consider additional assessment. Started heparin drip. Chest x-ray reviewed, noted small effusion after recent pneumonia, but does not have symptoms of ongoing pneumonia. Started nitro drip. (3) Encephalopathy: She is awake and alert. In discomfort from chest pain. Is answering questions appropriately. Encephalopathy could be multifactorial due to myocardial infarction versus all combination of CHF - Monitor closely, neurocheck every 4 hours (4) Anemia: Reviewed hemoglobin, platelets. Anemia is stable continue to monitor (5) Acute exacerbation of congestive heart failure: Congestive heart failure exacerbation Was treated with Lasix drip. Held for now, going for additional assessment by coronary angiography. Monitor intake and output. Monitor for risk of electrolyte abnormality, noted hyperkalemia earlier. (6) DM type 2 (diabetes mellitus, type 2): Continue current regular diet. Monitor POC glucose./Consult. Resumed Lantus. (7) Acute kidney injury: Renal function close to baseline, baseline range between 1 and 1.3 Monitor intake and output. Reassess renal function. Plan GI and DVT prophylaxis in place PDMP PDMP Reviewed: Not Reviewed Attestations 2 Medical Necessity Statement*: Continue admission for assessment and management of unstable angina/NSTEMI with ongoing chest pain. Diagnoses Non-ST elevated myocardial infarction (non-STEMI) I21.4 Chest pain R07.9 Encephalopathy G93.40 Anemia D64.9 Acute exacerbation of congestive heart failure I50.9 DM type 2 (diabetes mellitus, type 2) E11.9 Diabetes mellitus complication status: without complication Acute kidney injury N17.9
--- NOTE | 2024-09-22 14:35 | PM.PROC ---
Procedure Note: Date of procedure: 09/22/24 Pre-procedure diagnosis: Non-ST elevation MT Post-procedure diagnosis: same Procedure: Left heart cath was performed Left main distal 90% stenosis LAD ostial 90% stenosis patent previously placed proximal LAD stent Left circumflex ostial 99% subtotal occlusion RCA luminal irregularities without significant stenosis LV gram was performed which showed moderate depressed LV ejection fraction 45% Left ventricular end-diastolic pressure was moderately elevated Plan recommend consideration for CT surgery for high risk PCI if not a candidate Hold Plavix for now Start patient on nitro drip Continue heparin drip Transfer patient to ICU Full note to be dictated Coding Level of Care Code Acute Code for Sasha Fwd
[2024-09-22] MEDS: nitroglycerin drip 50 MG/250 ML PREMIX IV (15:02)
--- NOTE | 2024-09-22 15:08 | PC.NURSE ---
Received pt from labor gang supervisor Pt is still complaining of severe chest pain and bilateral elbow pain, still moaning and tossing with pains. Received orders from labor gang supervisor to restart Heparin drip at rate where she comes in and Nitro drip at 10 mcg/min. VS stable
--- NOTE | 2024-09-22 15:19 | P.TS_ITS ---
Transfer Summary Providers Date of Admission: 09/22/24 06:58 Date of Discharge/Transfer: 09/22/24 Attending Provider at Admission: Nedra Ron MD Attending Provider at Transfer: Zach Webb Primary Care Provider: Mat Chirinos DO Transfer Plans: Anticipated date of transfer: 09/22/24 . Diagnoses at Discharge Discharge Diagnosis (1) Non-ST elevated myocardial infarction (non-STEMI): (2) Chest pain: (3) Encephalopathy: (4) Anemia: (5) Acute exacerbation of congestive heart failure: (6) DM type 2 (diabetes mellitus, type 2): (7) Acute kidney injury: (8) Pulmonary embolism: (9) Hyperlipidemia: (10) Atherosclerotic heart disease of [place] coronary artery with unstable angina pectoris: (11) Congestive heart failure with LV diastolic dysfunction, NYHA class 2: Reason for Visit Reason for Visit CHEST PAIN Brief History: Lady López is a 74 year old female, a [facility] resident who presented to the emergency room because of complaints of chest pains. Patient BMP is 13,856 and patient is with anasarca with much abdominal obesity. Patient has left bundle branch block with elevated troponin at 67 the blood pressure is freely noted to be soft with systolic in the 90s though MAP is 60 and above. Patient is with chest pain now with CHF exacerbation will need cardiology consultation patient meets inpatient and will be at least 2 midnights stay in the hospital. Patient at this time is being admitted to the cardiac stepdown unit. BUN is 42 and creatinine is 1.3 patient is with JEFFRY with dehydration. Received 80 mg of IV Lasix in the emergency room I have initiated Lasix drip to be gentle on the kidney and to preserve the functionality of kidney function that is JEFFRY. Hospital Course Hospital Course She continued to have chest pain. Will started on nitroglycerin drip. Received morphine. Troponin series with positive delta. Was started on heparin drip. Echocardiogram requested. With persistent symptoms despite treatment was taken for coronary angiogram and was found to have multivessel coronary disease with recommendation for further assessment and arrangements for CABG per cardiology discussion with her and family. Arrangements made for transfer to [facility] where she was accepted by cardiovascular surgery Dr. Haley on discussion by the dub room engineer. Physical Exam Const: COMMON NORMALS: patient oriented x3 and alert GENERAL APPEARANCE: cooperative ORIENTATION/CONSCIOUSNESS: Yes awake HENMT: COMMON NORMALS: oropharynx normal Neck/C-Spine: COMMON NORMALS: no JVD Resp: COMMON NORMALS: normal respiratory effort and clear to auscultation bilaterally AUSCULTATION: clear to auscultation bilaterally Cardio: COMMON NORMALS: no JVD, regular rhythm, S1 normal heart sound present, S2 normal heart sound present and No murmurs present (Cardio) RHYTHM: regular rhythm HEART SOUNDS: S1 normal heart sound present and S2 normal heart sound present GI: COMMON NORMALS: Normal to inspection, nondistended, normoactive bowel sounds present, Soft to palpation and non-tender PALPATION: Yes Soft to palpation Extremity: COMMON NORMALS: no joint enlargement and no pedal edema Neuro: COMMON NORMALS: patient oriented x3 and moves all extremities SENSORIUM/ORIENTATION: Yes alert Skin: COMMON NORMALS: no rashes or lesions noted GENERAL SKIN EXAM: no rashes or lesions noted Urinary Catheter Management: Mathew: Cath Placed During This Visit: yes Urinary Catheter Date of Insertion: 09/22/24 Urinary Catheter Time of Insertion: 08:53 TS Data Studies Completed and Pending Pending at discharge Category Date Time Status Basic Metabolic Panel AM LABS Lab 09/23/24 04:00 Ordered Complete Blood Count w/Auto AM LABS Lab 09/23/24 04:00 Ordered PTT [Partial Thromboplastin Time] AM LABS Lab 09/23/24 16:45 Ordered Platelet Count Q2D Lab 09/24/24 04:00 Ordered Platelet Count Q2D Lab 09/26/24 04:00 Ordered CV. echo limited [id number] Routine Ultrasound 09/22/24 10:06 Taken Completed Studies During Hospitalization Category Date Time Status FLORIST'S DECORATOR request for service Routine Exams 09/22/24 13:28 Completed XR chest 1V portable [id number] Stat Exams 09/21/24 23:30 Completed Laboratory Last Values WBC 12.28 10^3/uL (3.29-11.43) H 09/22/24 11:59 RBC 4.37 10^6/uL (3.85-5.65) 09/22/24 11:59 Hgb 10.60 g/dL (11.27-16.99) L 09/22/24 11:59 Hct 37.0 % (36-47) 09/22/24 11:59 MCV 84.7 fl (85-98) L D 09/22/24 11:59 MCH 24.3 pg (27-33) L 09/22/24 11:59 MCHC 28.6 g/dL (30-55) L 09/22/24 11:59 RDW 14.8 % (12.1-15.1) 09/22/24 11:59 Plt Count 370 10^3/cmm (157-399) 09/22/24 11:59 MPV 10.4 fL (7.4-10.4) 09/22/24 11:59 Neut % (Auto) 77.8 % 09/22/24 11:59 Lymph % (Auto) 12.6 % 09/22/24 11:59 Drew % (Auto) 6.8 % 09/22/24 11:59 Eos % (Auto) 1.9 % 09/22/24 11:59 Baso % (Auto) 0.6 % 09/22/24 11:59 Neut # (Auto) 9.56 10^3/uL (1.8-7.7) H 09/22/24 11:59 Lymph # (Auto) 1.6 10^3/uL (0.8-4.8) 09/22/24 11:59 Drew # (Auto) 0.8 10^3/uL (0.2-0.9) 09/22/24 11:59 Eos # (Auto) 0.2 10^3/uL (0.0-0.8) 09/22/24 11:59 Baso # (Auto) 0.1 10^3/uL (0.0-0.1) 09/22/24 11:59 Nucleated RBC % (auto) 0 % 09/22/24 11:59 Nucleated RBCs # 0.0 /100WBC 09/22/24 11:59 PT 13.60 SECONDS (12.1-14.9) 09/21/24 23:28 INR 0.98 (0.8-1.2) 09/21/24 23:28 APTT 28.0 SECONDS (23.9-36.7) 09/21/24 23:28 Sodium 138 mmol/L (136-145) 09/22/24 11:59 Potassium 5.3 mmol/L (3.5-5.1) H 09/22/24 11:59 Chloride 98 mmol/L (98-107) 09/22/24 11:59 Carbon Dioxide 28 mmol/L (22-29) 09/22/24 11:59 Anion Gap 17.3 (5-19) 09/22/24 11:59 BUN 45 mg/dL (8-23) H 09/22/24 11:59 Creatinine 1.2 mg/dL (0.5-0.9) H 09/22/24 11:59 GFR Calculation Not Reportable 09/22/24 11:59 Glucose 202 mg/dL (65-115) H 09/22/24 11:59 Calculated Osmolality 303 mOsm/kg (285-295) H 09/22/24 11:59 Calcium 9.7 mg/dL (8.5-10.5) 09/22/24 11:59 Phosphorus 5.8 mg/dL (2.5-4.5) H 09/22/24 11:59 Magnesium 2.5 mg/dL (1.7-2.3) H 09/22/24 11:59 Total Bilirubin 0.3 mg/dL (0.15-1.2) 09/22/24 11:59 AST 32 U/L (0-32) 09/22/24 11:59 ALT 12 U/L (0-33) 09/22/24 11:59 Alkaline Phosphatase 89 U/L (35-105) 09/22/24 11:59 Troponin T Baseline 67 ng/L (0-10) H 09/21/24 23:28 Troponin T 120 Minute 80.94 ng/L (0-10) H 09/22/24 01:40 Delta Troponin T 13.94 ABS# (0-10) H* 09/22/24 01:40 Troponin T Hi Sens 6Hr 155.2 ng/L (0-10) H 09/22/24 05:29 Troponin T Hi Sens 6Hr Delta 88.2 ng/L (0-12) H* 09/22/24 05:29 NT-Pro-B Natriuret Pep 19452 pg/mL (0-125) H 09/21/24 23:52 Total Protein 7.3 g/dL (6.6-8.7) 09/22/24 11:59 Albumin 3.5 g/dL (3.5-5.2) 09/22/24 11:59 Globulin 3.8 g/dL (1.3-4.6) 09/22/24 11:59 Radiology Impressions Chest X-Ray 09/21/24 23:30 IMPRESSION: Small left and trace right pleural effusions. Recent Clincial Data Last Vital Signs Temp 97.9 F 09/21/24 23:10 Pulse 86 09/22/24 13:04 Resp 20 H 09/22/24 09:18 BP 139/61 09/22/24 13:04 Pulse Ox 92 09/22/24 13:04 O2 Del Method Room Air 09/22/24 13:26 O2 Flow Rate 2 09/22/24 12:43 Vital Signs Pulse Resp BP Pulse Ox O2 Del Method O2 Flow Rate 09/22/24 13:26 Room Air 09/22/24 13:04 86 139/61 92 09/22/24 12:43 92 127/77 92 Nasal Cannula 2 09/22/24 11:18 83 116/56 99 Nasal Cannula 09/22/24 10:54 84 119/61 99 Nasal Cannula 09/22/24 09:18 20 H 110/57 95 Nasal Cannula 09/22/24 08:54 86 20 H 113/59 09/22/24 08:24 84 116/68 95 Nasal Cannula 09/22/24 08:17 20 H 09/22/24 06:00 89 21 H 110/68 95 Nasal Cannula 3 09/22/24 05:00 83 19 H 95/59 97 Nasal Cannula 3 09/22/24 04:00 89 22 H 96/59 97 Nasal Cannula 3 Intake & Output/Weight 09/20/24 09/21/24 09/22/24 09/23/24 06:59 06:59 06:59 06:59 Intake Total 86.334 / 86.334 Output Total 0 / 0 Balance 86.334 / 86.334 Weight 92.986 kg Vitals Last Vital Signs Temp 97.9 F 09/21/24 23:10 Pulse 86 09/22/24 13:04 Resp 20 H 09/22/24 09:18 BP 139/61 09/22/24 13:04 Pulse Ox 92 09/22/24 13:04 O2 Del Method Room Air 09/22/24 13:26 O2 Flow Rate 2 09/22/24 12:43 TS Medications Medications Acetaminophen (Acetaminophen 325 Mg Tablet) 650 mg PO Q4H PRN PRN Reason: MILD PAIN OR INCREASE TEMP Al Hydrox/Mg Hydrox/Simethicone (Dmkq-Set-Mndrnlwue-Ludivina 30 Ml Udc) 30 ml PO Q15M PRN PRN Reason: INDIGESTION Albuterol Sulfate (Albuterol 2.5 Mg/3 Ml Neb) 2.5 mg INHALATION Q4H PRN PRN Reason: Shortness Of Breath Or Wheezing Alprazolam (Alprazolam 0.5 Mg Tablet) 0.5 mg PO DAILY [facility] Aspirin (Aspirin 325 Mg Ec Tablet) 325 mg PO DAILY [facility] Last Admin: 09/22/24 08:16 Dose: 325 mg Atorvastatin Calcium (Atorvastatin 40 Mg Tablet) 20 mg PO DAILY [facility] Atropine Sulfate (Atropine 1 Mg/Ml Sdv 1 Ml) 0.5 mg IVP PRN PRN PRN Reason: Symptomatic bradycardia Buspirone HCl (Buspirone 10 Mg Tablet) 7.5 mg PO DAILY [facility] Docusate Sodium (Docusate Sodium 100 Mg Capsule) 100 mg PO BID [facility] Last Admin: 09/22/24 13:19 Dose: Not Given Docusate Sodium (Docusate Sodium 100 Mg Capsule) 100 mg PO BID [facility] Heparin Sodium (Porcine) (Heparin 5,000 Unit/Ml Inj 1 Ml) 0 unit IVP PRN PRN; Protocol PRN Reason: Heparin Weight Based Protocol -Subsequent Bolus Hydralazine HCl (Hydralazine 25 Mg Tablet) 25 mg PO TID [facility] Heparin Sodium/Sodium Chloride (Heparin Drip) 25,000 unit in 500 mls @ 0 mls/hr IV CONT [facility]; Protocol Last Titration: 09/22/24 14:51 Dose: 13.98 unit/kg/hr, 26 mls/hr Furosemide 100 mg/ Sodium (Chloride) 50 mls @ 0 mls/hr IV .Q0M [facility]; Protocol Nitroglycerin/Dextrose (Nitroglycerin Drip) 50 mg in 250 mls @ 0 mls/hr IV .Q0M [facility]; Protocol Last Titration: 09/22/24 15:17 Dose: 20 mcg/min, 6 mls/hr Insulin Glargine (Insulin Glargine 100 Units/1 Ml) 35 unit SUBCUT BEDTIME [facility] Magnesium Oxide (Magnesium Oxide 400 Mg Tablet) 200 mg PO BEDTIME [facility] Metoprolol Succinate (Metoprolol Succinate Er (24 Hr) 25 Mg Tablet) 25 mg PO DAILY [facility] Morphine Sulfate (Morphine 4 Mg/Ml Sdv 1 Ml) 2 mg IVP Q4H PRN PRN Reason: SEVERE PAIN Naloxone HCl (Naloxone 0.4 Mg/Ml Sdv) 0.1 mg IVP Q2M PRN PRN Reason: RESPIRATORY RATE < 8/MIN Nitroglycerin (Nitroglycerin 0.4 Mg Sublingual Tablet) 0.4 mg SUBLINGUAL Q5M PRN PRN Reason: CHEST PAIN Nitroglycerin (Nitroglycerin 0.4 Mg Sublingual Tablet) 0.4 mg SUBLINGUAL Q5M PRN PRN Reason: Heart Non-Formulary Medication (Tramadol-Acetaminophen) 1 tab PO BID PRN PRN Reason: Pain Ondansetron HCl (Ondansetron 4 Mg Tablet) 4 mg PO Q6H PRN PRN Reason: NAUSEA AND VOMITING Pantoprazole Sodium (Pantoprazole Dr 40 Mg Tablet) 40 mg PO DAILY [facility] Polyethylene Glycol (Polyethylene Glycol 3350 Pkt 17 Gm) 17 gm PO DAILY [facility] Quetiapine Fumarate (Quetiapine 25 Mg Tablet) 50 mg PO BEDTIME [facility] Ropinirole HCl (Ropinirole 1 Mg Tablet) 1 mg PO BEDTIME [facility] Senna (Sennosides 8.6 Mg Tablet) 17.2 mg PO BEDTIME [facility] Spironolactone (Spironolactone 25 Mg Tablet) 25 mg PO DAILY [facility] Sucralfate (Sucralfate 1 Gm Tablet) 1 gm PO DAILY@1700 [facility] Discontinued Medications Aspirin (Aspirin 325 Mg Ec Tablet) 325 mg PO ONCE ONE Stop: 09/22/24 05:35 Last Admin: 09/22/24 07:17 Dose: Not Given Clopidogrel Bisulfate (Clopidogrel 75 Mg Tablet) 75 mg PO DAILY [facility] Fentanyl (Fentanyl 50 Mcg/Ml Inj 2ml) Confirm Administered Dose 100 mcg .ROUTE .STK-MED ONE Stop: 09/22/24 13:29 Furosemide (Furosemide 10 Mg/Ml Sdv 10ml) 80 mg IVP ONCE ONE Stop: 09/22/24 01:15 Last Admin: 09/22/24 01:47 Dose: 80 mg Haloperidol Lactate (Haloperidol Inj 5 Mg/Ml Inj 1 Ml) 3 mg IVP ONCE ONE Stop: 09/22/24 00:17 Last Admin: 09/22/24 00:23 Dose: 3 mg Heparin Sodium (Porcine) (Heparin 5,000 Unit/Ml Inj 1 Ml) 0 unit IVP ONCE ONE; Protocol Stop: 09/22/24 10:07 Last Increment: 09/22/24 10:52 Dose: 4,700 unit Incremental Dosing Total Given: 4,700 unit Heparin Sodium (Porcine) (Heparin 5,000 Unit/Ml Inj 1 Ml) 5,000 unit SUBCUT Q12H [facility] Last Admin: 09/22/24 12:05 Dose: Not Given Heparin Sodium (Porcine) (Heparin 5,000 Unit/Ml Inj 1 Ml) Confirm Administered Dose 10,000 unit .ROUTE .STK-MED ONE Stop: 09/22/24 13:30 Furosemide 100 mg/ Sodium (Chloride) 50 mls @ 2.5 mls/hr IV .Q20H [facility]; Protocol Last Titration: 09/22/24 13:37 Dose: 0 mg/hr, 0 mls/hr Lidocaine HCl (Xylocaine) Confirm Administered Dose 20 mls @ as directed .ROUTE .STK-MED ONE Stop: 09/22/24 13:30 Sodium Chloride (Sodium Chloride 0.9%) Confirm Administered Dose 1,000 mls @ as directed .ROUTE .STK-MED ONE Stop: 09/22/24 13:30 Nitroglycerin/Dextrose (Nitroglycerin Drip) Confirm Administered Dose 50 mg in 250 mls @ as directed .ROUTE .STK-MED ONE Stop: 09/22/24 14:18 Midazolam HCl (Midazolam 1 Mg/Ml Inj 2 Ml) Confirm Administered Dose 2 mg .ROUTE .STK-MED ONE Stop: 09/22/24 13:30 Morphine Sulfate (Morphine 4 Mg/Ml Sdv 1 Ml) 2 mg IVP ONCE ONE Stop: 09/21/24 23:33 Last Admin: 09/21/24 23:39 Dose: 2 mg Morphine Sulfate (Morphine 4 Mg/Ml Sdv 1 Ml) 2 mg IVP ONCE ONE Stop: 09/22/24 08:08 Last Admin: 09/22/24 08:17 Dose: 2 mg Nitroglycerin (Nitroglycerin 5 Mg/Ml Sdv 10 Ml) Confirm Administered Dose 50 mg .ROUTE .STK-MED ONE Stop: 09/22/24 13:29 Ondansetron HCl (Ondansetron 2 Mg/Ml Sdv 2 Ml) 4 mg IVP ONCE ONE Stop: 09/21/24 23:33 Last Admin: 09/21/24 23:37 Dose: 4 mg Ondansetron HCl (Ondansetron 2 Mg/Ml Sdv 2 Ml) 4 mg IVP ONCE ONE Stop: 09/22/24 08:08 Last Admin: 09/22/24 08:17 Dose: 4 mg Allergies codeine Allergy (Unknown, Verified 07/29/24 22:55) ADR-Diarrhea tetanus and diphtheria toxoids Allergy (Unknown, Verified 07/29/24 22:55) Unknown atorvastatin Allergy (Verified 07/29/24 22:55) ADR-Fainting Home Medications acetaminophen 500 mg capsule 1,000 mg PO Q8H PRN Pain 02/01/23 [History Confirmed 09/22/24] dapagliflozin propanediol 10 mg tablet (Farxiga) 10 mg PO DAILY #30 tabs 01/20/24 [Rx Confirmed 09/22/24] hydralazine 25 mg tablet 25 mg PO TID #90 tabs 01/20/24 [Rx Confirmed 09/22/24] clopidogrel 75 mg tablet 75 mg PO DAILY 06/07/24 [History Confirmed 09/22/24] ondansetron HCl 4 mg tablet 4 mg PO Q6H PRN Nausea And Vomiting 06/07/24 [History Confirmed 09/22/24] polyethylene glycol 3350 17 gram/dose oral powder 17 g PO DAILY 06/07/24 [ History Confirmed 09/22/24] tiotropium bromide 2.5 mcg/actuation mist for inhalation (Spiriva Respimat) 2 puff inhalation DAILY 06/07/24 [History Confirmed 09/22/24] calcium carbonate (Calcium Antacid) See Rx Instructions .Route .COMPLEX PRN Indigestion 07/09/24 [History Confirmed 09/22/24] rosuvastatin 20 mg tablet 20 mg PO DAILY 07/09/24 [History Confirmed 09/22/24] albuterol sulfate 90 mcg/actuation aerosol inhaler 2 inh inhalation Q4H PRN shortness of breath or wheezing 09/04/24 [History Confirmed 09/22/24] calcium 500 mg (as carbonate)-vitamin D3 5 mcg (200 unit) tablet 1 tab PO DAILY 09/04/24 [History Confirmed 09/22/24] docusate sodium 100 mg tablet 100 mg PO BID 09/04/24 [History Confirmed 09/22/24] magnesium 200 mg tablet 200 mg PO BEDTIME 09/04/24 [History Confirmed 09/22/24] metformin 1,000 mg tablet 1,000 mg PO BIDWMEAL 09/04/24 [History Confirmed 09/22/24] metoprolol succinate 25 mg tablet,extended release 24 hr 25 mg PO DAILY 09/04/24 [History Confirmed 09/22/24] pantoprazole 40 mg tablet,delayed release (Protonix) 40 mg PO DAILY 09/04/24 [History Confirmed 09/22/24] quetiapine 50 mg tablet (Seroquel) 50 mg PO BEDTIME 09/04/24 [History Confirmed 09/22/24] ropinirole 1 mg tablet 1 mg PO BEDTIME 09/04/24 [History Confirmed 09/22/24] sucralfate 1 gram tablet 1 g PO DAILY@1700 09/04/24 [History Confirmed 09/22/24] umeclidinium 62.5 mcg-vilanterol 25 mcg/actuation powdr for inhalation (Anoro Ellipta) 1 inh inhalation DAILY 09/04/24 [History Confirmed 09/22/24] apixaban 5 mg tablet (Eliquis) 2.5 mg (1/2 x 5 mg) PO BID #90 tabs 09/11/24 [Rx Confirmed 09/22/24] bumetanide 2 mg tablet 1 mg (1/2 x 2 mg) PO DAILY 30 days #30 tabs 09/11/24 [Rx Confirmed 09/22/24] buspirone 7.5 mg tablet 7.5 mg PO DAILY 30 days #0 tabs 09/11/24 [Rx Confirmed 09/22/24] albuterol sulfate 2.5 mg/3 mL (0.083 %) solution for nebulization 2.5 mg inhalation Q4H PRN Shortness Of Breath Or Wheezing 09/22/24 [History Confirmed 09/22/24] alprazolam 0.5 mg tablet (Xanax) 0.5 mg PO DAILY 09/22/24 [History Confirmed 09/22/24] insulin glargine 100 unit/mL subcutaneous solution 35 unit SUBCUT BEDTIME 09/22/24 [History Confirmed 09/22/24] insulin lispro 100 unit/mL subcutaneous solution See Rx Instructions .Route .COMPLEX 09/22/24 [History Confirmed 09/22/24] nitroglycerin 0.4 mg sublingual tablet 0.4 mg sublingual Q5M PRN Heart 09/22/24 [History Confirmed 09/22/24] potassium chloride 20 mEq tablet,extended release 20 meq PO DAILY 09/22/24 [History Confirmed 09/22/24] spironolactone 25 mg tablet 25 mg PO DAILY 09/22/24 [History Confirmed 09/22/24] tramadol 37.5 mg-acetaminophen 325 mg tablet 1 tab PO BID PRN Pain 09/22/24 [History Confirmed 09/22/24] Discharge Plan Discharge Patient Disposition: Home Condition: Stable Prescriptions: No Action acetaminophen 500 mg capsule 1,000 mg PO Q8H PRN (Reason: Pain) calcium carbonate [Calcium Antacid] 200 mg calcium (500 mg) tablet,chewable See Rx Instructions .ROUTE .COMPLEX PRN (Reason: Indigestion) Rx Instructions: Chew 400-800 mg orally as symptom ocur .Do not take more than 8 in 24hour rosuvastatin 20 mg tablet 20 mg PO DAILY ropinirole 1 mg Tablet 1 mg PO BEDTIME sucralfate 1 gram Tablet 1 g PO DAILY@1700 metformin 1,000 mg Tablet 1,000 mg PO BIDWMEAL metoprolol succinate 25 mg Tablet Extended Release 24 Hr 25 mg PO DAILY docusate sodium 100 mg Tablet 100 mg PO BID magnesium 200 mg Tablet 200 mg PO BEDTIME calcium carbonate-vitamin D3 500 mg-5 mcg (200 unit) Tablet 1 tab PO DAILY quetiapine [Seroquel] 50 mg Tablet 50 mg PO BEDTIME umeclidinium-vilanterol [Anoro Ellipta] 62.5-25 mcg/actuation Blister With Device 1 inh INHALATION DAILY pantoprazole [Protonix] 40 mg tablet,delayed release (DR/EC) 40 mg PO DAILY albuterol sulfate 90 mcg/actuation HFA aerosol inhaler 2 inh inhalation Q4H PRN (Reason: shortness of breath or wheezing) bumetanide 2 mg tablet 1 mg PO DAILY 30 Days Qty: 30 0RF buspirone 7.5 mg Tablet 7.5 mg PO DAILY 30 Days Qty: 0 0RF Eliquis 5 mg tablet 2.5 mg PO BID Qty: 90 3RF dapagliflozin propanediol [Farxiga] 10 mg tablet 10 mg PO DAILY Qty: 30 0RF hydralazine 25 mg tablet 25 mg PO TID Qty: 90 0RF ondansetron HCl 4 mg Tablet 4 mg PO Q6H PRN (Reason: Nausea And Vomiting) Spiriva Respimat 2.5 mcg/actuation Mist 2 puff INHALATION DAILY clopidogrel 75 mg tablet 75 mg PO DAILY Rx Instructions: TAKE 1 TABLET BY MOUTH EVERY DAY polyethylene glycol 3350 17 gram/dose Powder 17 g PO DAILY insulin glargine 100 unit/mL Solution 35 unit SUBCUT BEDTIME tramadol-acetaminophen [Ultracet] 37.5-325 mg Tablet 1 tab PO BID PRN (Reason: Pain) alprazolam [Xanax] 0.5 mg Tablet 0.5 mg PO DAILY insulin lispro 100 unit/mL Solution See Rx Instructions .ROUTE .COMPLEX Rx Instructions: Subcutaneously before meals and at bedtime 150-200 = 3 units 201-250 = 5 units 251-300 = 7 units 301-350 = 9 units 351-450 = 11units if less than 70 and Symptomatic call Provider If greater than 450 call provider albuterol sulfate 2.5 mg /3 mL (0.083 %) Solution For Nebulization 2.5 mg INHALATION Q4H PRN (Reason: Shortness Of Breath Or Wheezing) spironolactone 25 mg Tablet 25 mg PO DAILY Rx Instructions: for CHF Start date 09/22/24 nitroglycerin 0.4 mg Tablet, Sublingual 0.4 mg SUBLINGUAL Q5M PRN (Reason: Heart ) Rx Instructions: do not exceed 3 doses per episode potassium chloride 20 mEq Tablet Extended Release 20 meq PO DAILY Referrals: Mat Chirinos DO [Primary Care Provider, Family Practice] Patient Instructions: Opioid Safety, Patient Portal & Ashley Instructions Transfer Attestations Time Spent in Transfer Care: greater than 30 min Status at Transfer: Cognitive status at transfer: mildly impaired cognition ; Behavioral status at transfer: cooperative ; Quality Metrics Clinical Quality Measures [ Acute Myocardial Infaction { Clinical Trial Participant: No; Contraindication to aspirin: None; Aspirin prescribed; Contraindication to statin: None; Statin prescribed;}] Coding Level of Care Code 05085 Total time (in minutes) for Discharge: 55 Diagnoses Non-ST elevated myocardial infarction (non-STEMI) I21.4 Chest pain R07.9 Encephalopathy G93.40 Anemia D64.9 Acute exacerbation of congestive heart failure I50.9 Type 2 diabetes mellitus with stage 3a chronic kidney disease, with long-term current use of insulin E11.22; N18.31; Z79.4 Chronic kidney disease stage: stage 3 (moderate) Chronic kidney disease stage 3 subtype: stage 3a (GFR 45-59) Diabetes mellitus complication detail: with chronic kidney disease Diabetes mellitus complication status: with kidney complications 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 transplanted heart: [place] heart Congestive heart failure with LV diastolic dysfunction, NYHA class 2 I50.30
--- NOTE | 2024-09-22 15:49 | USCV_ITS ---
Lady López Age: 74 Gender: F : 1950 Exam Date: 09/22/2024 15:52 Ordering Phys: Technologist: Exam Location: Site Location: Account Number: Indication: BP: / HR: Rhythm: Sinus Technical Quality: Adequate MEASUREMENTS (Male / Female) Normal Values FINDINGS Left Ventricle Moderate diffuse hypokinesis of the septum, anteroseptum, apex and inferior wall. LV ejection fraction around 30-35% Right Ventricle Possibly normal RV size ejection fraction Right Atrium Possibly of normal size Left Atrium Mildly increased left atrial size. Mitral Valve Moderate mitral annular calcification. Aortic Valve Thickened aortic valve. Tricuspid Valve No gross abnormalities noted Pulmonic Valve Pulmonic valve not well visualized. Pericardium No pericardial effusion. Aorta Normal aortic annulus size. IVC Inferior vena cava not visualized. CONCLUSIONS Moderate diffuse hypokinesis of the septum, anteroseptum, apex and inferior wall. LV ejection fraction around 30-35%. Mildly increased left atrial size. Moderate mitral annular calcification. Thickened aortic valve. There is no pericardial effusion. There are no intracardiac masses. Compared to the study from 09/05/2024, there is a significant drop in the LV ejection fraction from 60% to 30 to 35% Dr Mckinley Stark MD [facility] (Electronically Signed) Final Date: 22 September 2024 21:36 S
--- NOTE | 2024-09-22 15:59 | PC.NURSE ---
Pt still moaning and groaning in pain. Nitro drip titrated per protocol. Notified Dr Seals,Morphine given as ordered..
[2024-09-22] MEDS: LORazepam 1 MG/0.5 ML injection 0.5 MG IVP ×2 (16:19→20:44)
--- NOTE | 2024-09-22 16:44 | PC.NURSE ---
Bed assignment: [facility]. 3E-room 3315. Report#: [phone]
--- NOTE | 2024-09-22 17:17 | PC.NURSE ---
1625 -- 2mL air removed from right radial TR band. 1640 -- Report given to SANDRA Rich at [facility]. 1645 -- 2mL air removed from right radial TR band. 1650 -- bleeding noted from right radial TR band, reinflated to 16mL air, no hematoma noted. 1710 -- [facility] unable to transport patient due to truck unavailable, [facility] unable to transport patient due to weather, [facility] unable to transport patient per [facility] due to weather, report given to [facility] ground crew with anticipated transport around [id number]. Notified Layla at [facility] of anticipated time.
--- NOTE | 2024-09-22 19:44 | PC.NURSE ---
Received call from [facility], stated they would be unable to transport until after shift change in the AM. Patient still on list for transport and will continue to check with [facility] weather permitting.
--- NOTE | 2024-09-22 20:11 | PC.NURSE ---
Pt due to have [address] Morris made aware and ordered to hold this dose due to nitro drip.
[2024-09-22 20:53] LABS: Partial Thromboplastin Time 103.4 SECONDS (23.9-36.7)
[2024-09-22] MEDS: insulin glargine 100 units/1 mL 35 UNIT SUBCUT (21:30)
--- NOTE | 2024-09-22 22:11 | PC.NURSE ---
[facility] here and transported pt LIZ at [id number]. Pt blood pressures had began dropping and attempted to titrate nitro accordingly, but pressures continued dropping. This nurse paused Nitro before leaving facility. Contacted Debbie, informed of latest PTT and heparin adjustment, 8 mls of air in TR band, and pausing of nitro.
--- NOTE | 2024-09-23 01:00 | PC.NURSE ---
Patient transferred to [facility], attempted to contact family to warp picker belongings and was unable to reach or leave message. Belongings labeled and left at nurses station for warp picker.
== END 2024-09-22 21:55 | disposition short-term general hospital (02) | DRG 280 ==
LOC: ER 09-22 03:13 → ER IP 09-22 06:59 → CSU 09-22 12:22 → ICU 09-22 15:54
PROVIDERS: Internal Medicine Cardiovascular Disease; Admitting Provider Internal Medicine; Emergency Provider Emergency Medicine; PCP Electrodiagnostic Medicine; Visit Provider Internal Medicine
PROC: B2111ZZ Fluoroscopy of Multiple Coronary Arteries using Low Osmolar Contrast (ICD-10-PCS; principal; 2024-09-22 13:00)
DX: I21.4 Non-ST elevation (NSTEMI) myocardial infarction (principal); I26.99 Other pulmonary embolism without acute cor pulmonale; I50.31 Acute diastolic (congestive) heart failure; G93.40 Encephalopathy, unspecified; I13.0 Hypertensive heart and chronic kidney disease with heart failure and stage 1 through stage 4 chronic kidney disease, or unspecified chronic kidney disease; N17.9 Acute kidney failure, unspecified; I25.10 Atherosclerotic heart disease of native coronary artery without angina pectoris; D63.1 Anemia in chronic kidney disease; N18.31 Chronic kidney disease, stage 3a; E11.22 Type 2 diabetes mellitus with diabetic chronic kidney disease; E11.43 Type 2 diabetes mellitus with diabetic autonomic (poly)neuropathy; K31.84 Gastroparesis; E78.5 Hyperlipidemia, unspecified; E66.9 Obesity, unspecified; I44.7 Left bundle-branch block, unspecified; E86.0 Dehydration; Z79.4 Long term (current) use of insulin; Z68.34 Body mass index [BMI] 34.0-34.9, adult; Z79.02 Long term (current) use of antithrombotics/antiplatelets; Z79.51 Long term (current) use of inhaled steroids; Z79.01 Long term (current) use of anticoagulants; Z79.84 Long term (current) use of oral hypoglycemic drugs; Z79.891 Long term (current) use of opiate analgesic; Z99.81 Dependence on supplemental oxygen
CPT/HCPCS: 36415; 36416; 51702; 71045; 80053; 82962; 83735; 83880; 84100; 84484; 85025; 85347; 85610; 85730; 93005; 93010; 93308; 93458; 96365; 96366; 96372; 96375; 96376; 99152; 99153; 99285; C1769; C1887; C1894; J1630; J1644; J1815; J1938; J2060; J2250; J2270; J2405; J3010; J3490; J7030; J9999; Q0162; Q9967